=== PATIENT | female | born 1995 | race Caucasian/White ===

== ENCOUNTER 2023-06-28 11:50 | Emergency (ER) | payer OTHER, SELFPAY ==
[2023-06-28] VITALS (16 sets, daily range): BP systolic 103–145; BP diastolic 60–80; PULSE 99–128; RESP 12–31; TEMP 37.5; O2SAT 98–100; BMI 27.4
--- NOTE | 2023-06-28 12:37 | XR_ITS ---
The [address] [address] Patient Name: CASS VERDUZCO MRN: [id number] date: 1995 Sex: F Assigned Patient Location: ER Current Patient Location: ER Accession/Order Number: [id number] Exam Date: 06/28/2023 12:55 Report Date: 06/28/2023 13:38 At the request of: JOSH GARCIA Procedure: XR acute abdomen series EXAM: XR acute abdomen series HISTORY: chest and abd pain COMPARISON: None. TECHNIQUE: Acute abdominal series FINDINGS: Lungs without focal consolidation, pneumothorax, or pleural effusion. The cardiac size is normal. No free air, pneumobilia, portal venous gas. No dilated air-filled loop of small bowel. Several phleboliths at the pelvis. No abnormal calcification projects over the abdomen or pelvis. The osseous structures are unremarkable. XR/XR acute abdomen series IMPRESSION: 1. No acute pulmonary abnormality. 2. Nonobstructed bowel gas pattern. Electronically authenticated by: LAUREL ZIMMERMAN Date: 06/28/2023 13:38
--- NOTE | 2023-06-28 12:37 | ECG_ITS ---
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
--- NOTE | 2023-06-28 12:40 | ED.GENADUL1 ---
HPI - General Adult General Chief complaint: Abdominal Pain Stated complaint: CHEST PAIN AND STOMACH PAIN Time Seen by Provider: 06/28/23 12:36 Source: patient Mode of arrival: walk-in Limitations: no limitations History of Present Illness HPI narrative: Patient is a 27-year-old female who is presenting with ongoing complaints for the past month patient was at [facility] on May 31, had lab work and a CT exam done.. Patient was told that she had a slightly enlarged appendix, but there is no signs of appendicitis. Patient was discharged from the ER at that time. Patient does have a PCP. Patient states she has been having nausea, and afraid to eat in the past week or 2 secondary to eating causing midepigastric and right upper quadrant pain. Patient has no history of significant acid reflux or ulcers. Patient says that she has been prescribed Carafate in the past which has helped for similar symptoms that she is having today. Patient has no black stools, no emesis hematemesis. Patient also states she has been having right-sided chest pressure with radiation into the right neck and right arm this started yesterday. Patient also is having intermittent left lower lateral anterior rib pain intermittently since yesterday. Patient has not seen her PCP in the past month. Patient has never had a GI endoscopic. Patient has no traveling, she is on the implant for control. Non-smoker. 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 All systems reviewed and otherwise negative. Nurses note and vital signs reviewed and patient is not hypoxic. General: The patient appears well and in no apparent distress. Patient is resting comfortably on cart. Patient is not toxic, lethargic, or listless Skin: Warm, dry, no pallor noted. There is no rash noted. No petechiae, purpura. Patient has no rash to the anterior or lateral chest wall. Head: Normocephalic, atraumatic Eye: Normal conjunctiva, no drainage, EOMI. PERRL Ears, Nose, Mouth, and Throat: oral mucosa is moist. Nares patent. Mouth without vesicles. Cardiovascular: Regular Rate and Rhythm, no murmur, gallop, rub; no reproducible tenderness to palpation to the anterior, lateral, posterior chest wall. Respiratory: Patient is in no distress, no accessory muscle use, lungs are clear to auscultation, no wheezing, rales or rhonchi. Equal breath sounds bilateral. Back: non-tender, no CVA tenderness bilaterally to percussion. No CT LS midline pain GI: Mild tenderness to palpation to the midepigastric and right upper quadrant, mild periumbilical tenderness palpation; no peritoneal signs, no flank pain bilateral, no rash, no suprapubic tenderness palpation, otherwisetenderness to palpation, no masses appreciated. No rebound, guarding, or rigidity noted. No distention Musculoskeletal: Patient has full range of motion of all of the extremities, no motor, sensory, or focal neurological deficits Neurological: A&O x4, normal speech Psychiatric: Cooperative Related Data Home Medications Medication Instructions Recorded Confirmed baclofen 10 mg tablet 10 mg PO BID 06/28/23 06/28/23 ferrous sulfate 325 mg (65 mg 325 mg PO DAILY 06/28/23 06/28/23 iron) tablet (Feosol) Previous Rx's Medication Instructions Recorded dicyclomine 20 mg tablet 20 mg PO TID PRN abdominal pain #7 06/28/23 tabs ondansetron 4 mg disintegrating 4 mg PO Q4H PRN nausea and 06/28/23 tablet vomiting 3 days #6 tabs Allergies Allergy/AdvReac Type Severity Reaction Status Date / Time No Known Drug Allergies Allergy Verified 06/28/23 11:56 PFSH PFSH Social History Smoking status: Former smoker Exam Constitutional Vital Signs, click to edit/add: Last Vital Signs Temp 99.5 F 06/28/23 11:57 Pulse 106 H 06/28/23 14:51 Resp 13 06/28/23 14:51 BP 119/73 06/28/23 14:51 Pulse Ox 99 06/28/23 14:51 Course Vital Signs Vital signs: Vital Signs Pulse Oximetry 99 06/28/23 11:56 Temperature 99.5 F 06/28/23 11:57 Pulse Rate 106 H 06/28/23 14:51 Respiratory Rate 13 06/28/23 14:51 Blood Pressure 119/73 06/28/23 14:51 Pulse Oximetry 99 06/28/23 14:51 Medical Decision Making [facility] Narrative Medical decision making narrative: EKG, chest and abdominal x-ray show no acute findings. Lab work shows no acute findings, urine was within normal limits. Patient does feel better after 1 L of IV fluid. At discharge patient's heart rate was slightly elevated. Patient admits to being shaky and anxious at discharge and she normally has slightly elevated heart rate with situational anxiety. Patient states essentially anxiety as her being in the emergency room. Patient has no significant tremors or trembling. Patient was told to start taking acid medication daily. Patient was given Dr. Sosa name and number to follow up for outpatient EGD or colonoscopy if needed. No questions at discharge. Lab Data Lab results reviewed: Yes I reviewed the patient's lab results Labs: Lab Results 06/28/23 Range/Units 12:06 WBC 11.5 H (4.0-11.0) 10^3/uL RBC 4.66 (4.20-5.40) 10^6/uL Hgb 14.0 (12.0-16.0) g/dL Hct 42.4 (36.0-48.0) % MCV 91.0 (81.0-99.0) fL MCH 30.0 (26.7-34.0) pg MCHC 33.0 (29.9-35.2) g/dL RDW 12.2 (11.0-15.0) % Plt Count 431 (150-450) 10^3/uL MPV 9.6 (9.5-13.5) fL Neut % (Auto) 81.3 H (43.0-75.0) % Lymph % (Auto) 14.7 L (20.5-60.0) % [place] % (Auto) 3.0 (1.7-12.0) % Eos % (Auto) 0.1 L (0.9-7.0) % Baso % (Auto) 0.2 (0.2-2.0) % Neut # (Auto) 9.4 H (1.4-6.5) 10^3/uL Lymph # (Auto) 1.7 (1.2-3.8) 10^3/uL [place] # (Auto) 0.3 (0.3-0.8) 10^3/uL Eos # (Auto) 0.0 (0.0-0.7) 10^3/uL Baso # (Auto) 0.0 (0.0-0.1) 10^3/uL Abs Immat Gran (auto) 0.08 H (0.00-0.03) 10^3/uL Imm/Tot Granulo (auto) 0.7 H (0.0-0.5) % D-Dimer <0.19 (<=0.59) mg/L FEU Sodium 137 (136-145) mmol/L Potassium 3.7 (3.5-5.1) mmol/L Chloride 102 (98-107) mmol/L Carbon Dioxide 26.7 (21.0-32.0) mmol/L Anion Gap 12.0 BUN 10.0 (7.0-18.0) mg/dL Creatinine 0.80 (0.55-1.02) mg/dL Est GFR ( Amer) >60 (>=60) Est GFR (Non-Af Amer) >60 (>=60) BUN/Creatinine Ratio 12.5 Glucose 152 H (74-106) mg/dL Calcium 9.5 (8.5-10.1) mg/dL Total Bilirubin 0.8 (0.2-1.0) mg/dL AST 23 (15-37) U/L ALT 18 (14-59) U/L Alkaline Phosphatase 152 H (46-116) U/L Troponin I High Sens <4.0 L (4.0-51.3) pg/mL Total Protein 8.3 H (6.4-8.2) g/dL Albumin 4.1 (3.4-5.0) g/dL Globulin 4.2 g/dL Albumin/Globulin Ratio 1.0 Lipase 27.0 (16.0-77.0) U/L Urine Color Lt. yellow (YELLOW) Urine Clarity Clear (CLEAR) Urine pH 6.5 (5.0-9.0) Ur Specific [place] <=1.005 A (1.005-1.025) Urine Protein Negative (NEG/TRACE) mg/dL Urine Glucose (UA) Negative (NEGATIVE) mg/dL Urine Ketones 15 A (NEGATIVE) mg/dL Urine Occult Blood Trace-i (NEGATIVE) Urine Nitrite Negative (NEGATIVE) Urine Bilirubin Negative (NEGATIVE) Urine Urobilinogen 0.2 (0.2-1.0) EU/dL Ur Leukocyte Esterase Negative (NEGATIVE) Urine RBC 0-2 (0-2) #/HPF Urine WBC None seen (NONE SEEN) #/HPF Ur Squamous Epith Cells Few A (NONE/RARE) #/LPF Urine Crystals None seen (None Seen) #/HPF Urine Bacteria Trace A (NONE SEEN) #/HPF Urine Casts None seen (NONE SEEN) #/LPF Urine Mucus None seen (NONE SEEN) Imaging Data Chest x-ray: Radiologist's impression: ITS Impressions Chest/Abdomen X-ray 06/28/23 12:37 IMPRESSION: 1. No acute pulmonary abnormality. 2. Nonobstructed bowel gas pattern. Electronically authenticated by: LAUREL ZIMMERMAN Date: 06/28/2023 13:38 ECG Data Attestation: I personally reviewed and interpreted this ECG as follows: (EKG interpretation Sinus tachycardia at 115. Normal axis deviation. No acute ST elevation, no acute ectopy. QTc of 372.) Discharge Plan Discharge Chief Complaint: Abdominal Pain Clinical Impression: Chronic abdominal pain, Chest pain, Nausea Patient Disposition: Home, Self-Care Condition: Fair Prescriptions / Home Meds: New dicyclomine 20 mg tablet 20 mg PO TID PRN (Reason: abdominal pain) Qty: 7 0RF ondansetron 4 mg tablet,disintegrating 4 mg PO Q4H PRN (Reason: nausea and vomiting) 3 Days Qty: 6 0RF No Action baclofen 10 mg tablet 10 mg PO BID ferrous sulfate [Feosol] 325 mg (65 mg iron) tablet 325 mg PO DAILY Instructions: Chest Pain (ED), Acute Nausea and Vomiting (ED), Chronic Abdominal Pain (DC) Additional Instructions: Follow-up with your PCP, surgeon has been referred to you as well if you need upper EGD scope or colonoscopy as discussed at bedside. Start taking daily antacid medication. Use [id number]-ofz-otmtcup Maalox or Mylanta if needed for flareups. Nausea Zofran and belly cramping Bentyl medication has been prescribed as well. No acute finding on today's testing. Referrals: Physician,Non-Staff, MD [Primary Care Provider] - 1 week Discharge Date/Time: 06/28/23 15:20 Stand Alone Forms: Portal Instructions
[2023-06-28 12:46] LABS: Basophils Percent Auto 0.2 % (0.2-2.0); Eosinophils Percent Auto 0.1 % (0.9-7.0); Hematocrit 42.4 % (36.0-48.0); Immature Granulocytes Abs Auto 0.08 10^3/uL (0.00-0.03); Immature Granulocytes Pct Auto 0.7 % (0.0-0.5); Lymphocytes Absolute Auto 1.7 10^3/uL (1.2-3.8); Lymphocytes Percent Auto 14.7 % (20.5-60.0); Mean Platelet Volume 9.6 fL (9.5-13.5); Monocytes Absolute Auto 0.3 10^3/uL (0.3-0.8); Neutrophils Absolute Auto 9.4 10^3/uL (1.4-6.5); Neutrophils Percent Auto 81.3 % (43.0-75.0); Platelet Count 431 10^3/uL (150-450); Red Blood Count 4.66 10^6/uL (4.20-5.40); Red Cell Distribution Width 12.2 % (11.0-15.0); White Blood Count 11.5 10^3/uL (4.0-11.0)
[2023-06-28 12:57] LABS: Alanine Aminotransferase 18 U/L (14-59); Albumin Level 4.1 g/dL (3.4-5.0); Alkaline Phosphatase 152 U/L (46-116); Aspartate Amino Transferase 23 U/L (15-37); BUN Creatinine Ratio 12.5; Bilirubin Total 0.8 mg/dL (0.2-1.0); Calcium 9.5 mg/dL (8.5-10.1); Carbon Dioxide 26.7 mmol/L (21.0-32.0); Chloride 102 mmol/L (98-107); Estimated GFR (African America >60 (>=60); Estimated GFR (Non-African Ame >60 (>=60); Globulin 4.2 g/dL; Glucose 152 mg/dL (74-106); Potassium 3.7 mmol/L (3.5-5.1); Sodium 137 mmol/L (136-145); Total Protein 8.3 g/dL (6.4-8.2)
[2023-06-28 13:00] LABS: Troponin I High Sensitivity <4.0 pg/mL (4.0-51.3)
[2023-06-28] MEDS: KETOROLAC TROMETHAMINE 30 MG/ML VIAL 15 MG IVP (13:04)
[2023-06-28] MEDS: ONDANSETRON PF 4 MG/2 ML VIAL IV (13:04)
[2023-06-28 13:06] LABS: Bilirubin Urine NEGATIVE (NEGATIVE); Blood Urine TRACE-I (NEGATIVE); Clarity Urine CLEAR (CLEAR); Color Urine LT. YELLOW (YELLOW); Glucose Urine UA NEGATIVE (NEGATIVE); Ketones Urine 15 mg/dL (NEGATIVE); Leukocyte Esterase Urine NEGATIVE (NEGATIVE); Nitrite Urine NEGATIVE (NEGATIVE); Protein Urine NEGATIVE (NEG/TRACE); Specific Gravity Urine <=1.005 (1.005-1.025); Urobilinogen Urine 0.2 EU/dL (0.2-1.0); pH Urine 6.5 (5.0-9.0)
[2023-06-28] MEDS: 0.9 % SODIUM CHLORIDE 1,000 ML 1000 ML IV (13:06)
[2023-06-28 13:22] LABS: D Dimer <0.19 mg/L FEU (<=0.59)
[2023-06-28 13:24] LABS: Bacteria Urine TRACE #/HPF (NONE SEEN); Cast Seen? NONE SEEN #/LPF (NONE SEEN); Crystals Seen? None Seen #/HPF (None Seen); Mucus Urine NONE SEEN (NONE SEEN); RBC Urine 0-2 #/HPF (0-2); Squamous Epithelial Cell Urine FEW #/LPF (NONE/RARE); WBC Urine NONE SEEN #/HPF (NONE SEEN)
== END 2023-06-28 15:20 | disposition home or self-care (01) ==
PROVIDERS: Emergency Provider Emergency Medicine; Family Provider Family Medicine
DX: R07.9 Chest pain, unspecified (principal); R10.9 Unspecified abdominal pain; G89.29 Other chronic pain; R11.0 Nausea; Z79.899 Other long term (current) drug therapy; Z87.891 Personal history of nicotine dependence
CPT/HCPCS: 36415; 74022; 80053; 81001; 83690; 84484; 85025; 85378; 93005; 96374; 96375; 99285

== ENCOUNTER 2023-11-26 06:49 | Emergency (ER) | payer OTHER, SELFPAY ==
[2023-11-26 06:51] VITALS: BP 121/87; PULSE 98; TEMP 37.1; O2SAT 100; BMI 24.1
--- OUTSIDE RECORDS SUMMARY | 2023-11-26 06:57 | XMS_ITS | CCD ---
Author Organization [facility] Care Team Providers Care Research Nutritionist Name Role Phone Unavailable Primary Care Provider UnavailLorri Kennedy Primary Care Physician Gilbert Valverde DO Primary Care Provider [phone] Link Gilbert MARIA Primary Care Provider THAIGO CUELLAR Admitting Unavailable THIAGO CUELLAR Attending Unavailable GILBERT VALVERDE Primary Care Unavailable THIAGO CUELLAR Attending Unavailable GILBERT VALVERDE Primary Care Unavailable REGI HUNTER Attending Unavailable GILBERT VALVERDE Primary Care Unavailable REGI HUNTER Attending Unavailable GILBERT VALVERDE Primary Care Unavailable Nancy Rose Primary Care Physician TI Dean Emergency Provider Lorri Ireland Primary Care Provider NADIA Johnson Emergency Provider ANABELA SAEZ Attending Unavailable SIVAN KONG Attending Unavailable SIVAN KONG Referring Unavailable GAYLA DUNBAR Attending Unavailable MIGUEL ANGEL PENNINGTON Referring Unavailable LORRI IRELAND Primary Care Unavailable MIGUEL ANGEL ALEMAN Attending Unavailable Maggi, [facility]- Felisa Ayala Emergency Provider DO Vivian Ochoa Attending Unavailable Justo Arias Attending Unavailable Guille Will Attending Unavailable Justo Arias Attending Unavailable Mary Jane Palm H Attending Unavailable Draren Lomax Attending Unavailable Arpita, Astrraina H Attending Unavailable Isaac Stephen Admitting Unavailable Isaac Stephen Attending Unavailable LANETTE LUI Admitting Unavailable LANETTE LUI Attending Unavailable Estefani, Bruno S. Attending Unavailable Hugo, Justo Attending Unavailable LUI, LANETTE Attending Unavailable Hajdari, Astrit H Attending Unavailable Isaac Stephen. Attending Unavailable Geovany Ramirez Attending Unavailable Amos Castellon Attending Unavailable Spasilawrence, Rojelio V. Attending Unavailabl e LUI, LANETTE Attending Unavailable Amos Castellon Attending Unavailable Hugo, Justo Attending Unavailable Estefani, Bruno S. Attending Unavailable Nancy Rose C Attending Unavailable Nancy Rose Referring Unavailable NONE, XXXX Referring Unavailable Bon, Mohamed F. Admitting Unavailable Bon, Mohamed FVinh Attending Unavailable LinkGilbert C Admitting Unavailable Gilbert Valverde Attending Unavailable Hugo, Justo Attending Unavailable Darren Lomax Attending Unavailable Darren Lomax Attending Unavailable Suman, Guille Attending Unavailable Suman, Guille Attending Unavailable Spasic, Rojelio Avalos Attending UnavailAmos Guillen Attending Unavailable Darren Lomax Attending Unavailable Hayrisari, Astrit H Attending Unavailable Hugo, Justo Attending Unavailable Dokken, Kaylinn A Attending Unavailable DokkBettina jacobsylinn A Attending Unavailable Hugo, Justo Attending Unavailable DO Neptali Esquivel Emergency Provider [phone] Darren Lomax Attending Unavailable Suman, Guille Attending Unavailable Dokken, Kaylinn A Attending Unavailable Darren Lomax Attending Unavailable Darren Lomax Attending Unavailable Estefani, Bruno SVinh Attending Unavailable DokkDO Vivian jacobs A Attending Unavailable Darren Lomax Attending Unavailable Estefani, Bruno S. Attending Unavailable LUI, LANETTE Attending Unavailable Hugo, Justo Attending Unavailable Hajdari, Astrit H Attending Unavailable Darren Lomax Attending Unavailable Hugo, Justo Attending Unavailable Darren Lomax Attending Unavailable Hajdari, Astrit H Attending Unavailable Hugo, Justo Attending Unavailable NADIA Saez Emergency Provider Hugo, Justo Attending Unavailable Estefani, Bruno S. Attending Unavailable Suman Myles Attending Unavailable Caliepert, Anabela A Admitting Unavailable Ireland, Lorri L Primary Care Unavailable Jonathon Anabela A Attending Unavailable Ireland, Lorri L Primary Care Unavailable Keister Neptali A Attending Unavailable Kelópez Neptali A Admitting Unavailable Beka, Lorri L Primary Care Unavailable Felisa Tay Attending Unavailable Felisa Tay Admitting Unavailable Janeth Johnson Attending Unavailable Janeth Johnson Admitting Unavailable Ireland, Lorri L Primary Care Unavailable Satish Dean Attending Unavailable Satish Dean Admitting Unavailable Lorri Ireland Primary Care Unavailable MD Fatoumata Gooden Admitting Unavailable MD Fatoumata Gooden Attending Unavailable NONE, XXXX Referring Unavailable Ivana Bennett Admitting Unavailable Ivana Bennett Attending Unavailable Guille Will Attending Unavailable Justo Arias Attending Unavailable FLORENTIN MORENO Attending Unavailable Medications Current Medications Medication Drug Class(es) Dates Sig (Normalized) Sig (Original) acetaminophen 325 mg / HYDROcodone bitartrate 5 mg oral tablet (20 sources) Opioid Agonist Start: 09-04-2023 take 1 tablet by mouth every six hours Hydrocodone-Aceta minophen Active 1 TAB PO Every 6 hours 10 September 04, 2023 Start: 08-20-2023 End: 09-04-2023 take 1 tablet by mouth three times daily Hydrocodone-Acetaminophen Discontinued 1 TAB PO Three times daily 9 August 20, 2023 September 04, 2023 12:42pm Start: 07-07-2023 End: 07-10-2023 [place] 325 mg-5 mg oral table t 1 tab(s), Oral, q6hr for pain for 3 day(s), 12 tab(s), Refill(s) 0, [facility] #[id number], 160, cm, 07/07/23 11:13:00 EDT, Height/Length Dosing, 69.9, kg, 07/07/23 11:13:00 EDT, Weight Dosing Start Date: 07/07/23 Stop Date: 07/10/23 Status: Ordered Start: 06-29-2023 [place] 325 mg-5 mg oral tablet 1 tab(s), Oral, q4hr for pain, 5 tab(s), Refill(s) 0 Start Date: 06/29/23 Status: Ordered Start: 05-22-2023 [place] 325 mg-5 mg oral tablet 1 tab(s), Oral, q6hr as needed for pain, 10 tab(s), Refill(s) 0, [facility] #[id number], 160, cm, 05/22/23 6:23:00 EST, Height/Length Dosing, 64.2, kg, 05/22/23 6:23:00 EST, Weight Dosing Start Date: 05/22/23 Status: Ordered acetaminophen 325 mg / oxyCODONE hydrochloride 5 mg oral tablet (6 sources) Opioid Agonist Start: 04-11-2023 Percocet 5 mg- 325 mg oral tablet 1 tab(s), Oral, q6hr, 12 tab(s), Refill(s) 0 Start Date: 04/11/23 Status: Ordered Start: 03-30-2023 End: 04-02-2023 acetaminophen-oxycodone 325 mg-5 mg Tab 1 tab(s), Oral, q4hr for pain for 3 day(s), 12 tab(s), Refill(s) 0, [facility] #[id number], 157, cm, 03/30/23 15:42:00 EST, Height/Length Dosing, 57.6, kg, 03/30/23 15:42:00 EST, Weight Dosing Start Date: 03/30/23 Stop Date: 04/02/23 Status: Ordered Start: 03-24-2023 take 1 tablet by amber th every six hours for pain oxyCODONE-acetaminophen (Percocet) 5-325 mg tablet Indications: Acute post-operative pain Take 1 tablet by mouth every 6 hours if needed for severe pain (7 - 10). 15 tablet 0 03/24/2023 Active Start: 03-24-2023 End: 03-24-2023 take 1 tablet by mouth every four hours as needed oxyCODONE-acetaminophen (Percocet) 5-325 mg per tablet 1 tablet albuterol 0.83 mg/ml inhalation solution (3 sources) beta2-Adrenergic Agonist take 2.5 mg by inhalation every six hours as needed albuterol 2.5 mg /3 mL (0.083 %) nebulizer solution Take 3 mL (2.5 mg) by nebulization every 6 hours if needed. 0 Active Albuterol (Eqv-ProAir HFA) 90 mcg/inh inhalation aerosol (20 sources) Start: 023 take 1 puff(s) by inhalation every six hours Albuterol (Eqv-ProAir HFA) 90 mcg/inh inhalation aerosol puff(s), Inhalation, q6hr, Refill(s) 0 Start Date: 03/11/23 Status: Ordered amoxicillin 875 mg / clavulanate 125 mg oral tablet (1 source) Penicillin-class Antibacterial Start: End: Augmentin 875 mg-125 mg Tab 1 tab(s), Oral, q12hr for 10 day(s), 20 tab(s), Refill(s) 0, [facility] #[id number], 157, cm, 04/11/23 11:07:00 EST, Height/Length Dosing, 57.6, kg, 04/11/23 11:07:00 EST, Weight Dosing Start Date: 04/11/23 Stop Date: 04/21/23 Status: Ordered azithromycin 250 mg oral tablet (2 sources) Macrolide Antimicrobial Start: azithromycin 250 mg Tab 250 mg, Oral, As Directed, # 6 tab(s), Refills(s) 0, Pharmacy: [facility] #[id number], 160, cm, 07/19/23 9:32:00 EDT, Height/Length Dosing, 65.7, kg, 07/19/23 9:32:00 EDT, Weight Dosing Start Date: 07/19/23 Status: Ordered azithromycin 250 mg Tab 5-day Dose Pack (Z-Gabriel) (1 source) Start: End: azithromycin 250 mg Tab 5-day Dose Pack (Z-Gabriel) = 1 packet(s), Oral, As Directed, as directed on package labeling, X 5 day(s), # 6 tab(s), Refills(s) 0, Pharmacy: [facility] #[id number], 160, cm, 06/14/23 8:56:00 EST, Height/Length Dosing, 65, kg, 06/14/23 8:56:00 EST, Weight Dosing Start Date: 06/14/23 Stop Date: 06/19/23 Status: Ordered Baclofen (20 sources) gamma-Aminobutyric Acid-ergic Agonist Start: BACLOFEN 10 MG TABLET BACLOFEN 10 MG TABLET Start Date: 07/07/23 Status: Ordered Start: 05-11-2023 take 1 tablet by amber th twice daily baclofen 5 mg oral tablet 5 mg = 1 tab(s), Oral, BID, # 60 tab(s), Refills(s) 0, Pharmacy: [facility]/pharmacy #[id number], 162, cm, 05/11/23 11:33:00 EST, Height/Length Dosing, 61.9, kg, 05/11/23 11:33:00 EST, Weight Dosing Start Date: 05/11/23 Status: Ordered Start: 05-03-2023 End: 05-07-2023 take 1 tablet by mouth three times daily as needed for muscle spasms baclofen 10 mg Tab 10 mg = 1 tab(s), Oral, TID, PRN Spasm, X 4 day(s), # 12 tab(s), Refills(s) 0, Pharmacy: [facility] #[id number], 162, cm, 05/03/23 12:24:00 EST, Height/Length Dosing, 62.7, kg, 05/03/23 12:24:00 EST, Weight Dosing Start Date: 05/03/23 Stop Date: 05/07/23 Status: Ordered Start: 03-11-2023 End: 03-16-2023 take 1 tablet by mouth twice daily baclofen 5 mg oral tablet 5 mg = 1 tab(s), Oral, BID, X 5 day(s), # 10 tab(s), Refills(s) 0, Pharmacy: [facility] #[id number], 157, cm, 03/11/23 17:06:00 EST, Height/Length Dosing, 57.6, kg, 03/11/23 17:06:00 EST, Weight Dosing Start Date: 03/11/23 Stop Date: 03/16/23 Status: Ordered Start: 01-15-2023 End: 03-07-2023 take 1 tablet by mouth at bedtime baclofen 5 mg oral tablet 5 mg = 1 tab(s), Oral, Bedtime, # 12 tab(s), Refills(s) 0, Pharmacy: [facility] #[id number], 157, cm, 01/24/23 9:27:00 EDT, Height/Length Dosing, 59.6, kg, 01/24/23 9:27:00 EDT, Weight Dosing Start Date: 01/24/23 Status: Ordered busPIRone hydrochloride 15 mg oral tablet (7 sources) Start: 06-26-2022 take 1 tablet by mouth twice daily busPIRone 15 mg Tab take 1 tablet by mouth twice a day Start Date: 06/26/22 Status: Ordered calcium chloride 0.0014 meq/ml / potassium chloride 0.004 meq/ml / sodium chloride 0.103 meq/ml / sodium lactate 0.028 meq/ml injectable solution (2 sources) Start: 03-24-2023 lactated Ringe r's infusion Start: 07-19-2021 End: 07-20-2021 IntraVENous, at 125 mL/hr, C ONTINUOUS, Starting on Yadira 07/19/21 at 0130 cefdinir 300 mg oral capsule (10 sources) Cephalosporin Antibacterial Start: 05-28-2023 cefdinir 300 mg Cap Refills(s) 0 Start Date: 05/28/23 Status: Ordered cephalexin 500 mg oral capsule (3 sources) Cephalosporin Antibacterial Start: 03-24-2023 End: 03-31-2023 take 1 capsule by mouth three times daily cephalexin (Keflex) 500 mg capsule Indications: Nasal septal deviation Take 1 capsule (500 mg) by mouth 3 times a day for 7 days. 21 capsule 0 03/24/2023 03/31/2023 Active Start: 11-09-2022 End: 11-16-2022 take 1 capsule by mouth three times daily Keflex 500 mg Cap 500 mg = 1 cap(s), Oral, TID, X 7 day(s), # 21 cap(s), Refills(s) 0, Pharmacy: [facility] #[id number], 157, cm, 11/09/22 14:16:00 EDT, Height/Length Dosing, 62.9, kg, 11/09/22 14:16:00 EDT, Weight Dosing Start Date: 11/09/22 Stop Date: 11/16/22 Status: Ordered cyclobenzaprine hydrochloride 5 mg oral tablet (9 sources) Muscle Relaxant Start: 2023 End: 11-09-2023 take 1 tablet by mouth twice daily as needed for pain cyclobenzaprine 5 mg Tab 5 mg = 1 tab(s), Oral, BID, PRN Muscle pain, X 7 day(s), # 14 tab(s), Refills(s) 0, Pharmacy: [facility]/pharmacy #[id number], 160, cm, 11/02/23 14:02:00 EDT, Height/Length Dosing, 62, kg, 11/02/23 14:02:00 EDT, Weight Dosing Start Date: 11/02/23 Stop Date: 11/09/23 Status: Ordered Start: 06-26-2022 take 1 tablet by amber th once daily at bedtime cyclobenzaprine 5 mg Tab take 1 tablet by mouth once daily at bedtime if needed Start Date: 06/26/22 Status: Ordered diclofenac potassium 50 mg oral tablet (6 sources) Nonsteroidal Anti-inflammatory Drug Start: 06-26-2022 take 1 tablet by mouth twice daily diclofenac potassium 50 mg oral tablet take 1 tablet by mouth twice a day Start Date: 06/26/22 Status: Ordered dicyclomine hydrochloride 20 mg oral tablet (20 sources) Anticholinergic Start: 08-20-2023 take 20 mg by mouth once daily Dicyclomine Active 20 MG PO Daily August 20, 2023 12:00am Start: 08-10-2023 End: 08-17-2023 take 1 tablet by mouth three times daily dicyclomine 20 mg Tab 20 mg = 1 tab(s), Oral, TID, X 7 day(s), # 21 tab(s), Refills(s) 0, Pharmacy: [facility]/pharmacy #[id number], 160, cm, 08/10/23 11:41:00 EDT, Height/Length Dosing, 66, kg, 08/10/23 11:41:00 EDT, Weight Dosing Start Date: 08/10/23 Stop Date: 08/17/23 Status: Ordered Start: 07-26-2023 End: 09-24-2023 take 1 capsule by mouth four times daily as needed Bentyl 10 mg Cap 10 mg = 1 cap(s), Oral, QID, PRN Other (see comment), For abdominal cramping, # 12 cap(s), Refills(s) 0, Pharmacy: [facility]/pharmacy #[id number], 160, cm, 07/26/23 9:44:00 EDT, Height/Length Dosing, 61.7, kg, 07/26/23 9:44:00 EDT, Weight Dosing Start Date: 07/26/23 Status: Ordered Start: 05-31-2023 End: 06-07-2023 take 1 tablet by mouth three times daily dicyclomine 20 mg Tab 20 mg = 1 tab(s), Oral, TID, X 7 day(s), # 21 tab(s), Refills(s) 0, Pharmacy: [facility] #[id number], 160, cm, 05/31/23 8:12:00 EST, Height/Length Dosing, 67, kg, 05/31/23 8:12:00 EST, Weight Dosing Start Date: 05/31/23 Stop Date: 06/07/23 Status: Ordered doxycycline monohydrate 100 mg oral capsule (1 source) Tetracycline-class Drug Start: 05-03-2023 doxycycline monohydrate 100 mg oral capsule Refills(s) 0 Start Date: 05/03/23 Status: Ordered ferrous sulfate 325 mg oral tablet (10 sources) Start: 09-04-2023 take 1 tablet by mouth once daily Ferrous Sulfate (Feosol) 325 mg (65 mg iron) tablet Active 325 MG PO Daily September 04, 2023 12:00am Start: 07-19-2021 take 325 mg by mouth once daily 325 mg, Oral, DAILY, First dose on Yadira 07/19/21 at 0900, Until Discontinued Start: 05-28-2021 take 45 mg by mouth once daily ferrous sulfate 45 mg, Oral, Daily, Refills(s) 0 Start Date: 05/28/21 Status: Ordered Iron 100 Plus (20 sources) Start: 03-11-2023 Iron 100 Plus Oral, Daily, Refill(s) 0 Start Date: 03/11/23 Status: Ordered ketorolac tromethamine 10 mg oral tablet (3 sources) Nonsteroidal Anti-inflammatory Drug, Cyclooxygenase Inhibitor Start: 09-04-2023 take 10 mg by mouth three times daily Ketorolac Active 10 MG PO Three times daily September 04, 2023 12:00am LORazepam 1 mg oral tablet (8 sources) Benzodiazepine Start: 06-29-2023 take 1 tablet by mouth twice daily Ativan 1 mg Tab 1 mg = 1 tab(s), Oral, BID, # 2 tab(s), Refills(s) 0 Start Date: 06/29/23 Status: Ordered meloxicam 7.5 mg oral tablet (2 sources) Nonsteroidal Anti-inflammatory Drug Start: 05-11-2023 take 1 tablet by mouth once daily meloxicam 7.5 mg Tab 7.5 mg = 1 tab(s), Oral, Daily, # 30 tab(s), Refills(s) 1, Pharmacy: [facility]/pharmacy #[id number], 162, cm, 05/11/23 11:33:00 EST, Height/Length Dosing, 61.9, kg, 05/11/23 11:33:00 EST, Weight Dosing Start Date: 05/11/23 Status: Ordered methylPREDNISolone 4 mg oral tablet (1 source) Corticosteroid Start: 07-19-2023 End: 07-25-2023 Medrol 4 mg Tab = 1 packet(s), Oral, As Directed, as directed on package labeling, X 6 day(s), # 21 tab(s), Refills(s) 0, [id number], 160, cm, 07/19/23 9:32:00 EDT, Height/Length Dosing, 65.7, kg, 07/19/23 9:32:00 EDT, Weight Dosing Start Date: 07/19/23 Stop Date: 07/25/23 Status: Ordered multivitamin tablet (2 sources) take 1 tablet by mouth once daily multivitamin tablet Take 1 tablet by mouth once daily. 0 Active mupirocin 20 mg/ml topical cream (1 source) RNA Synthetase Inhibitor Antibacterial Start: 03-24-2023 End: 03-27-2023 mupirocin (Bactroban) 2 % cream Indications: Nasal septal deviation Apply topically 3 times a day for 3 days. Apply to nose three times a day 15 g 0 03/24/2023 03/27/2023 Active nitrofurantoin, macrocrystals 25 mg / nitrofurantoin, monohydrate 75 mg oral capsule (2 sources) Nitrofuran Antibacterial Start: 09-17-2023 End: 09-22-2023 take 1 capsule by mouth every twelve hours Macrobid 100 mg Cap 100 mg = 1 cap(s), Oral, q12hr, X 5 day(s), # 10 cap(s), Refills(s) 0, Pharmacy: [facility]/pharmacy #[id number], 160, cm, 09/17/23 4:33:00 EDT, Height/Length Dosing, 65.4, kg, 09/17/23 4:33:00 EDT, Weight Dosing Start Date: 09/17/23 Stop Date: 09/22/23 Status: Ordered omeprazole 40 mg delayed release oral capsule (6 sources) Proton Pump Inhibitor Start: 06-26-2022 take 1 capsule by mouth once daily at breakfast omeprazole 40 mg Cap-DR take 1 capsule by mouth once daily 30 MINUTES PRIOR TO BREAKFAST/OTHER MEDS Start Date: 06/26/22 Status: Ordered ondansetron 4 mg disintegrating oral tablet (9 sources) Serotonin-3 Receptor Antagonist Start: 09-20-2023 End: 09-23-2023 take 1 tablet by mouth every six hours ondansetron 4 mg Dis Tab 4 mg = 1 tab(s), Oral, q6hr, X 3 day(s), # 10 tab(s), Refills(s) 0, Pharmacy: [facility]/pharmacy #[id number], 160, cm, 09/20/23 12:38:00 EDT, Height/Length Dosing, 65.1, kg, 09/20/23 12:38:00 EDT, Weight Dosing Start Date: 09/20/23 Stop Date: 09/23/23 Status: Ordered Start: 03-24-2023 take 1 tablet by amber th every eight hours for nausea ondansetron (Zofran) 4 mg tablet Indications: Nasal septal deviation Take 1 tablet (4 mg) by mouth every 8 hours if needed for nausea or vomiting. 5 tablet 0 03/24/2023 Active Start: 06-26-2022 ondansetron 4 mg Dis Tab dissolve 1 tablet ON TONGUE three times a day if needed for nausea Start Date: 06/26/22 Status: Ordered ondansetron (ZOFRAN-ODT) disintegrating tablet 4 mg (1 source) Start: 07-19-2021 ondansetron (ZOFRAN-ODT) disintegrating tablet 4 mg One Daily Women's oral tablet (4 sources) Start: 03-11-2023 take 1 tablet by mouth once daily One Daily Women's oral tablet Oral, Daily, Refill(s) 0 Start Date: 03/11/23 Status: Ordered oxyCODONE hydrochloride 5 mg oral tablet (1 source) Opioid Agonist Start: 03-29-2023 End: 04-01-2023 oxyCODONE (Roxicodone) 5 mg immediate release tablet Indications: pain Take 1 tablet (5 mg) by mouth every 6 hours if needed for severe pain (7 - 10) for up to 3 days. Do not start before March 29, 2023. 12 tablet 0 03/29/2023 04/01/2023 Active oxymetazoline hydrochloride 0.5 mg/ml nasal spray (2 sources) Start: 03-24-2023 oxymetazoline (Afrin, oxymetazoline,) 0.05 % nasal spray Indications: Nasal septal deviation Administer 2 sprays into each nostril every 6 hours if needed (bleeding). Do not use for more than 3 days. 30 mL 0 03/24/2023 Active phenazopyridine hydrochloride 200 mg oral tablet (7 sources) Start: 09-26-2023 End: 10-03-2023 take 1 tablet by mouth three times daily Pyridium 200 mg Tab 200 mg = 1 tab(s), Oral, TID, X 7 day(s), # 21 tab(s), Refills(s) 0, Pharmacy: [facility]/pharmacy #[id number], 160, cm, 09/26/23 15:23:00 EDT, Height/Length Dosing, 65, kg, 09/26/23 15:23:00 EDT, Weight Dosing Start Date: 09/26/23 Stop Date: 10/03/23 Status: Ordered Start: 09-24-2023 End: 09-27-2023 take 1 tablet by mouth three times daily Pyridium 100 mg Tab 100 mg = 1 tab(s), Oral, TID, X 3 day(s), # 9 tab(s), Refills(s) 0, Pharmacy: [facility]/pharmacy #[id number], 160, cm, 09/24/23 15:37:00 EDT, Height/Length Dosing, 65, kg, 09/24/23 15:37:00 EDT, Weight Dosing Start Date: 09/24/23 Stop Date: 09/27/23 Status: Ordered Start: 09-17-2023 End: 09-20-2023 take 1 tablet by mouth three times daily Pyridium 200 mg Tab 200 mg = 1 tab(s), Oral, TID, X 3 day(s), # 9 tab(s), Refills(s) 0, Pharmacy: [facility]/pharmacy #[id number], 160, cm, 09/17/23 4:33:00 EDT, Height/Length Dosing, 65.4, kg, 09/17/23 4:33:00 EDT, Weight Dosing Start Date: 09/17/23 Stop Date: 09/20/23 Status: Ordered Start: 11-09-2022 End: 11-11-2022 take 1 tablet by mouth three times daily Pyridium 200 mg Tab 200 mg = 1 tab(s), Oral, TID, X 2 day(s), # 6 tab(s), Refills(s) 0, Pharmacy: [facility] #[id number], 157, cm, 11/09/22 14:16:00 EDT, Height/Length Dosing, 62.9, kg, 11/09/22 14:16:00 EDT, Weight Dosing Start Date: 11/09/22 Stop Date: 11/11/22 Status: Ordered polyethylene glycol 3350 16320 mg powder for oral solution (1 source) Osmotic Laxative Start: 03-24-2023 End: 03-29-2023 polyethylene glycol (Glycolax, Miralax) 17 gram packet Indications: Nasal septal deviation Take 17 g by mouth once daily for 5 doses. 5 packet 0 03/24/2023 03/29/2023 Active predniSONE 50 mg oral tablet (5 sources) Start: 10-31-2023 End: 11-05-2023 take 1 tablet by mouth once daily predniSONE 50 mg Tab 50 mg = 1 tab(s), Oral, Daily, X 5 day(s), # 5 tab(s), Refills(s) 0, Pharmacy: [facility]/pharmacy #[id number], 160, cm, 10/31/23 12:45:00 EDT, Height/Length Dosing, 63.2, kg, 10/31/23 12:45:00 EDT, Weight Dosing Start Date: 10/31/23 Stop Date: 11/05/23 Status: Ordered Start: 06-26-2022 End: 07-03-2022 take 3 tablets by mouth once daily predniSONE 20 mg Tab 60 mg = 3 tab(s), Oral, Daily, X 7 day(s), # 21 tab(s), Refills(s) 0, Pharmacy: [facility] #[id number], 157, cm, 06/26/22 14:20:00 EST, Height/Length Dosing, 70.4, kg, 06/26/22 14:26:00 EST, Weight Dosing Start Date: 06/26/22 Stop Date: 07/03/22 Status: Ordered Multivitamins (2 sources) Start: 05-28-2021 take 1 tablet by mouth once daily Multivitamins 1 tab(s), Oral, Daily, Refill(s) 0 Start Date: 05/28/21 Status: Ordered Vit-Fe Fumarate-FA ( 1+1 PO) (1 source) take 1 tablet by mouth once daily Vit-Fe Fumarate-FA ( 1+1 PO) Take 1 tablet by mouth daily 0 Active ropivacaine 0.2% in sodium chloride 0.9% 200mL (OB) epidural (1 source) Start: 07-19-2021 ropivacaine 0. 2% in sodium chloride 0.9% 200mL (OB) epidural sodium chloride 0.111 meq/ml nasal spray (5 sources) Start: 03-24-2023 sodium chlorid e ([place] Nasal) 0.65 % nasal spray Indications: Nasal septal deviation Administer 1 spray into each nostril every 4 hours. 30 mL 2 03/24/2023 Active Start: 07-19-2021 10 mL, IntraVE Nous, EVERY 12 HOURS SCHEDULED (2 times per day), First dose on Yadira 07/19/21 at 0900, Until Discontinued Start: 07-19-2021 take 25 mL intraveno usly every hour as needed 25 mL, IntraVENous, at 100 mL/hr, PRN, If patient receiving piggyback infusions without ordered maintenance IV fluids or with frequent/long duration piggyback infusions, Starting on Yadira 07/19/21 at 0107 Administer at the same rate as the piggyback being infused. Start: 07-19-2021 take 10 mL intraveno usly once as needed 10 mL, IntraVENous, PRN, Starting on Yadira 07/19/21 at 0107, Until Discontinued, Line Care, After every IV line use traMADol hydrochloride 50 mg oral tablet (20 sources) Opioid Agonist Start: 11-24-2023 End: 11-27-2023 take 1 tablet by mouth every eight hours Ultram 50 mg Tab 50 mg = 1 tab(s), Oral, q8hr, X 3 day(s), # 9 tab(s), Refills(s) 0, Pharmacy: [facility]/pharmacy #[id number], 160, cm, 11/24/23 11:59:00 EDT, Height/Length Dosing, 62, kg, 11/24/23 11:59:00 EDT, Weight Dosing Start Date: 11/24/23 Stop Date: 11/27/23 Status: Ordered Start: 10-02-2023 End: 10-28-2023 take 1 tablet by mouth every six hours as needed for pain traMADOL 50 mg Tab 50 mg = 1 tab(s), Oral, q6hr, PRN as needed for pain, # 7 tab(s), Refills(s) 0, [id number], 160, cm, 10/02/23 6:32:00 EDT, Height/Length Dosing, 67.7, kg, 10/02/23 6:32:00 EDT, Weight Dosing Start Date: 10/02/23 Status: Ordered Start: 09-24-2023 End: 09-27-2023 take 1 tablet by mouth every six hours as needed for pain traMADOL 50 mg Tab 50 mg = 1 tab(s), Oral, q6hr, PRN for pain, X 3 day(s), # 12 tab(s), Refills(s) 0, [id number], 160, cm, 09/24/23 15:37:00 EDT, Height/Length Dosing, 65, kg, 09/24/23 15:37:00 EDT, Weight Dosing Start Date: 09/24/23 Stop Date: 09/27/23 Status: Ordered Start: 09-20-2023 End: 09-23-2023 take 1 tablet by mouth every six hours Ultram 50 mg Tab 50 mg = 1 tab(s), Oral, q6hr, X 3 day(s), # 12 tab(s), Refills(s) 0, [id number], 160, cm, 09/20/23 12:38:00 EDT, Height/Length Dosing, 65.1, kg, 09/20/23 12:38:00 EDT, Weight Dosing Start Date: 09/20/23 Stop Date: 09/23/23 Status: Ordered Start: 09-14-2023 End: 09-19-2023 take 1 tablet by mouth every six hours as needed for pain traMADOL 50 mg Tab 50 mg = 1 tab(s), Oral, q6hr, PRN for pain, X 2 day(s), # 7 tab(s), Refills(s) 0, Pharmacy: [facility]/pharmacy #[id number], 160, cm, 09/17/23 4:33:00 EDT, Height/Length Dosing, 65.4, kg, 09/17/23 4:33:00 EDT, Weight Dosing Start Date: 09/17/23 Stop Date: 09/19/23 Status: Ordered Start: 08-05-2023 End: 08-20-2023 take 1 tablet by mouth every eight hours as needed for pain traMADOL 50 mg Tab 50 mg = 1 tab(s), Oral, q8hr, PRN as needed for pain, # 7 tab(s), Refills(s) 0, Pharmacy: [facility]/pharmacy #[id number], 160, cm, 08/14/23 14:48:00 EDT, Height/Length Dosing, 64, kg, 08/14/23 14:48:00 EDT, Weight Dosing Start Date: 08/14/23 Status: Ordered Start: 08-05-2023 End: 08-20-2023 Tramadol Discontinued 50 MG PO every 6 to 8 hours 12 August 05, 2023 12:00am August 20, 2023 12:55pm Start: 08-05-2023 End: 08-21-2023 take 1 tablet by mouth every four hours Ultram 50 mg Tab 50 mg, Oral, q4hr, Take one by mouth every four hours, X 3 day(s), # 10 tab(s), Refills(s) 0, [id number], 160, cm, 08/18/23 10:31:00 EDT, Height/Length Dosing, 64, kg, 08/18/23 10:31:00 EDT, Weight Dosing Start Date: 08/18/23 Stop Date: 08/21/23 Status: Ordered Start: 07-26-2023 End: 07-29-2023 take 1 tablet by mouth every twelve hours as needed for pain traMADOL 50 mg Tab 50 mg = 1 tab(s), Oral, q12hr, PRN for pain, X 3 day(s), # 6 tab(s), Refills(s) 0, Pharmacy: [facility]/pharmacy #[id number], 160, cm, 07/26/23 9:44:00 EDT, Height/Length Dosing, 61.7, kg, 07/26/23 9:44:00 EDT, Weight Dosing Start Date: 07/26/23 Stop Date: 07/29/23 Status: Ordered Start: 07-19-2023 End: 07-22-2023 take 1 tablet by mouth every six hours as needed for pain traMADOL 50 mg Tab 50 mg = 1 tab(s), Oral, q6hr, PRN for pain, X 3 day(s), # 12 tab(s), Refills(s) 0, [id number], 160, cm, 07/19/23 9:32:00 EDT, Height/Length Dosing, 65.7, kg, 07/19/23 9:32:00 EDT, Weight Dosing Start Date: 07/19/23 Stop Date: 07/22/23 Status: Ordered Zofran ODT 4 mg Tab-Dis (20 sources) Start: 10-19-2023 take 1 tablet by mouth every eight hours as needed for nausea Zofran ODT 4 mg Tab-Dis 4 mg = 1 tab(s), Oral, q8hr, PRN Nausea/Vomiting, # 20 tab(s), Refills(s) 0, Pharmacy: [facility]/pharmacy #[id number], 160, cm, 10/19/23 12:58:00 EDT, Height/Length Dosing, 65, kg, 10/19/23 12:58:00 EDT, Weight Dosing Start Date: 10/19/23 Status: Ordered Start: 07-26-2023 take 1 tablet by amber th every eight hours as needed for nausea Zofran ODT 4 mg Tab-Dis 4 mg = 1 tab(s), Oral, q8hr, PRN Nausea/Vomiting, # 16 tab(s), Refills(s) 0, Pharmacy: [facility]/pharmacy #[id number], 160, cm, 07/26/23 9:44:00 EDT, Height/Length Dosing, 61.7, kg, 07/26/23 9:44:00 EDT, Weight Dosing Start Date: 07/26/23 Status: Ordered Start: 05-31-2023 take 1 tablet by amber th three times daily Zofran ODT 4 mg Tab-Dis 4 mg = 1 tab(s), Oral, TID, # 15 tab(s), Refills(s) 0, Pharmacy: [facility] #[id number], 160, cm, 05/31/23 8:12:00 EST, Height/Length Dosing, 67, kg, 05/31/23 8:12:00 EST, Weight Dosing Start Date: 05/31/23 Status: Ordered Completed/Discontinued Medications Medication Drug Class(es) Dates Sig (Normalized) Sig (Original) acetaminophen 500 mg oral tablet (2 sources) Start: 07-19-2021 End: 07-19-2021 acetaminophen (TYLENOL) tablet 1,000 mg Start: 07-19-2021 acetaminophen (TYLENOL) tablet 650 mg aprepitant 40 mg oral capsule (1 source) Substance P/Neurokinin-1 Receptor Antagonist Start: 03-24-2023 End: 03-24-2023 aprepitant (Emend) capsule 40 mg betamethasone 3 mg/ml / betamethasone acetate 3 mg/ml injectable suspension (1 source) Corticosteroid Start: 07-19-2021 End: 07-19-2021 inject 1 dose by intramuscular injection once 12 mg, IntraMUSCular, ONCE, 1 dose, On Fri07/19/21 at 1100 Start: 07-19-2021 End: 07-19-2021 inject 1 dose by intramuscular injection once 12 mg, IntraMUSCular, ONCE, 1 dose, On Fri07/19/21 at 1100 docusate sodium 100 mg oral capsule (1 source) Start: 07-19-2021 take 100 mg by mouth twice daily as needed 100 mg, Oral, 2 TIMES DAILY PRN, Starting on Fri07/19/21 at 0107, Until Discontinued, Constipation Do not crush or break. 1 ml fentaNYL 0.05 mg/ml injection (1 source) Opioid Agonist Start: 03-24-2023 End: 03-24-2023 fentaNYL PF (Sublimaze) injection 50 mcg ketoconazole 20 mg/ml topical cream (2 sources) Azole Antifungal Start: 04-11-2022 End: 03-07-2023 ketoconazole (NIZOral) 2 % cream Apply topically once daily. 0 04/11/2022 03/07/2023 Discontinued (Therapy completed) metroNIDAZOLE 500 mg oral tablet (4 sources) Nitroimidazole Antimicrobial Start: 08-20-2023 End: 09-04-2023 take 500 mg by mouth once daily Metronidazole Discontinued 500 MG PO Daily August 20, 2023 12:00am September 04, 2023 12:42pm naproxen 500 mg oral tablet (20 sources) Nonsteroidal Anti-inflammatory Drug Start: 11-24-2023 take 1 tablet by mouth twice daily naproxen 500 mg Tab 500 mg = 1 tab(s), Oral, BID, Take one tab by mouth two times a day, # 14 tab(s), Refills(s) 0, Pharmacy: [facility]/pharmacy #[id number], 160, cm, 11/24/23 11:59:00 EDT, Height/Length Dosing, 62, kg, 11/24/23 11:59:00 EDT, Weight Dosing Start Date: 11/24/23 Status: Ordered Start: 06-14-2023 End: 09-04-2023 take 1 tablet by mouth twice daily Naprosyn 500 mg Tab 500 mg = 1 tab(s), Oral, BID, # 20 tab(s), Refills(s) 0, Pharmacy: [facility] #[id number], 160, cm, 06/14/23 8:56:00 EST, Height/Length Dosing, 65, kg, 06/14/23 8:56:00 EST, Weight Dosing Start Date: 06/14/23 Status: Ordered Start: 05-28-2023 naproxen 375 m g Tab Refills(s) 0 Start Date: 05/28/23 Status: Ordered Start: 04-11-2023 take 1 tablet by amber th every twelve hours naproxen 375 mg Tab 375 mg = 1 tab(s), Oral, q12hr, # 14 tab(s), Refills(s) 0, Pharmacy: [facility] #[id number], 157, cm, 04/11/23 11:07:00 EST, Height/Length Dosing, 57.6, kg, 04/11/23 11:07:00 EST, Weight Dosing Start Date: 04/11/23 Status: Ordered NIFEdipine 10 mg oral capsule (1 source) Dihydropyridine Calcium Channel Justine Start: 07-19-2021 End: 07-19-2021 10 mg, Oral, EVERY 6 HOURS SCHEDULED (4 times per day), 4 doses, First dose on Fri07/19/21 at 0130, Last dose on Yadira 07/19/21 at 2200 penicillin G potassium in d5w IVPB 2.5 Million Units (1 source) Start: 07-19-2021 End: 07-20-2021 penicillin G potassium in d5w IVPB 2.5 Million Units vitamin 27-1 MG tablet 1 tablet (1 source) Start: 07-19-2021 take 1 tablet by mouth once daily 1 tablet, Oral, DAILY, First dose on Fri07/19/21 at 0900, Until Discontinued sertraline 100 mg oral tablet (7 sources) Serotonin Reuptake Inhibitor Start: 06-26-2022 take 1 tablet by mouth once daily sertraline 100 mg Tab 100 mg = 1 tab(s), take 1 tablet by mouth once daily Start Date: 06/26/22 Status: Ordered Problems Active Problems Problem Classification Problem Date Documented Da te Episodic/Chronic Abdominal pain (20 sources) Right lower quadrant pain; Translations: [Right lower quadrant pain] Onset: 09-14-2021 Episodic Asthma (20 sources) Asthma; Translations: [Mild asthma] Onset: 03-24-2023 01-13-2013 Chronic Gaitan (2 sources) Partial thickness burn of palmar area of right hand; Translations: [Burn of second degree of right palm, initial encounter] Onset: 09-14-2021 Episodic Cardiac dysrhythmias (1 source) Tachyarrhythmia ; Translations: [Tachycardia, unspecified] Onset: 07-12-2023 Episodic Chronic obstructive pulmonary disease and bronchiectasis (1 source) Bronchitis; Translations: [Bronchitis, not specified as acute or chronic] Onset: 07-19-2023 Episodic Disorders of teeth and jaw (20 sources) Dental caries 07-09-2013 Episodic Early or threatened labor (20 sources) Threatened premature labor - not delivered ; Translations: [False labor before 37 completed weeks of gestation, unspecified trimester] Onset: 07-19-2021 Episodic Fluid and electrolyte disorders (1 source) Hypokalemia; Translations: [Hypokalemia] Onset: 07-12-2023 Episodic Genitourinary symptoms and ill-defined conditions (20 sources) Genitourinary symptoms; Translations: [Unspecified symptoms and signs involving the genitourinary system] Onset: 11-09-2022 Episodic Heart valve disorders (20 sources) Heart murmur 07-09-2013 Episodic Nausea and vomiting (3 sources) Nausea and vomiting; Translations: [Nausea with vomiting, unspecified] Onset: 05-31-2023 Episodic Nonspecific chest pain (3 sources) Chest pain; Translations: [Chest pain, unspecified] Onset: 06-29-2023 Episodic Other acquired deformities (5 sources) Incompetence of nasal valve; 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] Onset: 02-06-2023 02-06-2023 Episodic Other acquired deformities (5 sources) Acquired deformity of nose; 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] Onset: 02-27-2023 02-27-2023 Episodic Other acquired deformities (2 sources) Acquired deformity of nose; 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] Onset: 02-27-2023 Episodic Other female genital disorders (20 sources) Vaginal discharge 09-22-2015 Episodic Other female genital disorders (20 sources) Pelvic congestion syndrome; Translations: [Other specified conditions associated with female genital organs and menstrual cycle] 08-05-2023 Episodic Other female genital disorders (4 sources) Disorder of female genital organs; Translations: [Other specified conditions associated with female genital organs and menstrual cycle] Onset: 09-14-2023 Episodic Other female genital disorders (1 source) Other specified conditions associated with female genital organs and menstrual cycle; Translations: [Other specified conditions associated with female genital organs and menstrual cycle] Onset: 2023 Episodic Other gastrointestinal disorders (1 source) Diarrhea; Translations: [Diarrhea, unspecified] Onset: 05-31-2023 Episodic Other lower respiratory disease (5 sources) Difficulty breathing; Translations: [Other abnormalities of breathing] Onset: 02-06-2023 02-06-2023 Episodic Other lower respiratory disease (4 sources) Other abnormalities of breathing; Translations: [Other abnormalities of breathing] Onset: 02-06-2023 Episodic Other nervous system disorders (11 sources) Chronic pain; Translations: [Other chronic pain] Onset: 08-10-2023 Chronic Other nervous system disorders (1 source) Other chronic pain; Translations: [Other chronic pain] Onset: 08-28-2023 Chronic Other nervous system disorders (2 sources) Chronic pain syndrome; Translations: [Chronic pain syndrome] Onset: 10-21-2023 Chronic Other nervous system disorders (2 sources) Anesthesia of skin; Translations: [Anesthesia of skin] Onset: 06-26-2022 Episodic Other nervous system disorders (2 sources) Paresthesia; Translations: [Paresthesia of skin] Onset: 06-26-2022 Episodic Other nervous system disorders (20 sources) Paresthesia of lower extremity 06-26-2022 Episodic Other nervous system disorders (1 source) Acute postoperative pain; Translations: [Other acute postprocedural pain] 03-24-2023 Episodic Other nervous system disorders (1 source) Postoperative pain ; Translations: [Other acute postprocedural pain] Onset: 03-30-2023 Episodic Other nervous system disorders (2 sources) Other acute postprocedural pain; Translations: [Other acute postprocedural pain] Onset: 03-24-2023 Episodic Other non-traumatic joint disorders (20 sources) Pain in wrist 05-23-2012 Episodic Other nutritional; endocrine; and metabolic disorders (20 sources) Overweight in adulthood with body mass index of 25 or more but less than 30; Translations: [Body mass index (BMI) 27.0-27.9, adult] Onset: 07-07-2023 Episodic Other upper respiratory disease (10 sources) Deviated nasal septum; Translations: [Deviated nasal septum] Onset: 02-06-2023 02-06-2023 Episodic Other upper respiratory disease (8 sources) Hypertrophy of nasal turbinates; Translations: [Hypertrophy of nasal turbinates] Onset: 02-06-2023 02-06-2023 Episodic Other upper respiratory disease (6 sources) Nasal congestion; Translations: [Nasal congestion] Onset: 02-27-2023 02-06-2023 Episodic Other upper respiratory disease (4 sources) Deviated nasal septum; Translations: [Deviated nasal septum] Onset: 03-24-2023 Episodic Other upper respiratory disease (1 source) Bleeding from nose; Translations: [Epistaxis] Onset: 04-15-2023 Episodic Other upper respiratory disease (2 sources) Epistaxis; Translations: [Epistaxis] Onset: 05-01-2023 Episodic Other upper respiratory disease (1 source) Nasal congestion; Translations: [Nasal congestion] Onset: 02-27-2023 Episodic Other upper respiratory disease (2 sources) Hypertrophy of nasal turbinates; Translations: [Hypertrophy of nasal turbinates] Onset: 02-06-2023 Episodic Other upper respiratory infections (1 source) Acute pharyngitis; Translations: [Acute pharyngitis, unspecified] Onset: 06-14-2023 Episodic Spondylosis; intervertebral disc disorders; other back problems (20 sources) Low back pain; Translations: [Low back pain, unspecified] Onset: 06-26-2022 Episodic Sprains and strains (1 source) Lower back injury; Translations: [Strain of muscle, fascia and tendon of lower back, initial encounter] Onset: 03-11-2023 Episodic Substance-related disorders (20 sources) Smoker; Translations: [Nicotine dependence] Onset: 07-07-2023 08-15-2014 Chronic Comment on above: Added secondary to d ocumentation in Social History. Superficial injury; contusion (1 source) Injury of eye region; Translations: [Injury of conjunctiva and corneal abrasion without foreign body, unspecified eye, initial encounter] Onset: 07-03-2022 Episodic Unclassified (20 sources) History of SARS-CoV-2 06-05-2021 Unclassified (2 sources) Magnesium sulfate during /labor( Confirmed ) 07-23-2021 Unclassified (20 sources) Magnesium sulfate during /labor 07-23-2021 Urinary tract infections (1 source) Urinary tract infectious disease; Translations: [Urinary tract infection, site not specified] Onset: 09-17-2023 Episodic Past or Other Problems Problem Classification Problem Date Documented Da te Episodic/Chronic Unclassified (20 sources) Onset: 12-26-2007 Resolved: 08-03-2021 08-12-2016 Unclassified (3 sources) Onset: 02-06-2023 Resolved: 03-31-2023 02-06-2023 Results Test Name Value Interpretation Reference Range Facility ED Clinical Summaryon 2023 ED Clinical Summary ED Clinical Summary [place] [id number] ED Clinical Summary Person Information Name: REALALEJANDRA/[facility] Age: 28 Years : 1995 Sex: Female Language: Uruguayan PCP: Lorri Ireland CNP Marital Status: Single Phone: [phone] Visit Id: Visit Reason: Nausea; Chronic pain; Pelvic pain; pain - abd left side, nausea Speciality: Acuity: 4 Enc Type: Emergency Med Service: Emergency Arrival: 11/24/2023 11:46:11 Discharge: 11/24/2023 13:13:53 LOS: 000 01:27 Checkin: 11/24/2023 11:46:11 Checkout: 11/24/2023 13:13:53 Dispo Type: Home (Routine DC) EVENTS: Event Name Event Status Request Date/Time Start Date/Time Complete Date/Time Arrive Complete 11/24/2023 11:46:11 11/24/2023 11:46:11 11/24/2023 11:46:11 Document Home Meds Request 11/24/2023 11:46:11 Triage Complete 11/24/2023 11:46:11 11/24/2023 11:59:15 11/24/2023 11:59:15 Registration Complete 11/24/2023 11:48:55 11/24/2023 11:48:55 11/24/2023 11:48:55 Reg Complete Request 11/24/2023 11:48:55 Reg Bed Request Complete 11/24/2023 11:48:55 11/24/2023 11:48:55 11/24/2023 11:48:55 Bed Assign Complete 11/24/2023 11:53:56 11/24/2023 11:53:56 11/24/2023 11:53:56 Dr Exam Complete 11/24/2023 11:53:56 11/24/2023 11:55:07 11/24/2023 11:55:07 RN Exam Complete 11/24/2023 11:53:56 11/24/2023 12:01:55 11/24/2023 12:01:55 Registration Request 11/24/2023 11:55:07 Dr Exam Complete 11/24/2023 11:59:31 11/24/2023 11:59:31 11/24/2023 11:59:31 Discharge Complete 11/24/2023 12:56:23 11/24/2023 13:14:00 11/24/2023 13:14:00 Transfer Complete 11/24/2023 13:14:00 11/24/2023 13:14:00 11/24/2023 13:14:00 ADDRESS: [address] [facility] [id number] PHYS DOC NOTES: MEDICAL INFORMATION: Prescriptions Given: New Medications [id number], [address] [place], [place] [id number], [phone] naproxen (naproxen 500 mg Tab) 1 Tablets By Mouth 2 times a day. Take one tab by mouth two times a day. Refills: 0. tramadol (Ultram 50 mg Tab) 1 Tablets By Mouth every 8 hours for 3 Days. Refills: 0. Medications to Continue with No Changes Other Medications dicyclomine (Bentyl 10 mg Cap) 1 Capsules By Mouth 4 times a day as needed Other (see comment). For abdominal cramping. Refills: 0. Misc Prescription (BACLOFEN 10 MG TABLET) 0. multivitamin with iron (Iron 100 Plus) By Mouth every day. ondansetron (Zofran ODT 4 mg Tab-Dis) 1 Tablets By Mouth every 8 hours as needed Nausea/Vomiting. Refills: 0. PATIENT EDUCATION INFORMATION: Instructions: Chronic Pain, Adult Follow up: With: Address: When: Lorri Ireland [address] [place] [address], [address] [place] [address] Business (1) In 3 days DIAGNOSIS: Chronic pelvic pain in female; Other chronic pain Normal [facility] ED Note-Physicianon 11-24-19 ED Note-Physician ED Note-Physician Basic Information Time Seen: Justo Arias DO 11/24/2023 11:59 Chief Complaint Pt was at Dr. Gooden's office for surgery consult. Was sent per Dr. Gooden d/t L sided pelvic/abdominal pain. History of Present Illness Patient is a 28 year old female who who was recently diagnosed with pelvic congestion syndrome presents to the ED today after regarding left-sided abdominopelvic pain. She states that she was seen in Dr. Gooden's office today regarding a surgery consult for her pelvic congestion syndrome. Patient states that she normally gets relief with her Toradol tablets but has been unsuccessful today; therefore, Dr. Gooden advised she come to the ED. She states that her pain is localized to her left side without radiation. She states that she has associated nausea but denies vomiting, diarrhea, or any change in bowel habits. She denies any fevers, chills, body aches, chest pain, or shortness of breath at today's visit. Patient states that she has a follow up visit in the coming weeks with pain management. She states this pain is the same as the previous pain she has experienced but more severe. She states her pain is a 7/10 and she has no other concerns at this time. No other aggravating or relieving factors no other associated symptoms no other prior treatments or complaints. Family: Reviewed and noncontributory Social: lives at home Review of systems negative unless otherwise specified in the HPI. Physical Exam Vitals & Measurements T: 37 ?C(Oral) HR: 91(Peripheral) RR: 16 BP: 137/85 SpO2: 100% HT: 160 cm WT: 62 kg BMI: 24.22 General: alert, no acute distress Skin: warm, dry Head: no trauma, normocephalic Neck: Trachea midline, no adenopathy, no tenderness, thyroid not enlarged Eye: normal conjunctiva, sclera clear ENMT: oral mucosa moist, yes Cardiovascular: regular rate and rhythm, normal Respiratory: respirations non labored Chest wall: no deformity. Gastrointestinal: soft, non distended, LLQ tenderness. No rebound tenderness or guarding is appreciated. Back: No tenderness Extremities: no edema, no wound Neurological: awake, alert, oriented, speech normal Psychiatric: cooperative, affect appropriate for age Medical Decision Making I did talk to the patient about getting additional workup here. She does believe this is simply a flareup of her chronic condition. She is scheduled to see the pain management on she just saw vascular today she also has an appointment to see her [facility] physician. Therefore she will be prescribed the tramadol and given a note for work and given naproxen as well follow-up in the outpatient setting. I, Dr. Arias had a [id number] interaction with the patient. I personally performed a physical exam and medical decision making. I have verified the documentation by the student as accurately representing the information obtained. Assessment/Plan Chronic pelvic pain in female (R10.2: Pelvic and perineal pain) Other chronic pain (G89.29: Other chronic pain) Ordered: tramadol, 50 mg = 1 tab(s), Oral, q8hr, X 3 day(s), # 9 tab(s), Refills(s) 0, Pharmacy: [facility]acy #[id number], 160, cm, 11/24/23 11:59:00 EDT, Height/Length Dosing, 62, kg, 11/24/23 11:59:00 EDT, Weight Dosing Orders: naproxen, 500 mg = 1 tab(s), Oral, BID, Take one tab by mouth two times a day, # 14 tab(s), Refills(s) 0, Pharmacy: [facility]/pharmacy #[id number], 160, cm, 11/24/23 11:59:00 EDT, Height/Length Dosing, 62, kg, 11/24/23 11:59:00 EDT, Weight Dosing Disposition Plan Discharge Prescription List Prescriptions naproxen 500 mg Tab, 500 mg= 1 tab(s), Oral, BID Ultram 50 mg Tab, 50 mg= 1 tab(s), Oral, q8hr Follow-up With When Contact Information Lorri Ireland In 3 days [address] [facility], [address] [place] [address]- Business (1) Additional Instructions: Patient Education Chronic Pain, Adult Problem List/Past Medical History Ongoing Asthma BMI 25.0-25.9,adult Dysuria History of COVID-19 (04-24-2021) Lower abdominal pain Numbness and tingling of leg Right flank pain Right lower quadrant pain Smoker Wrist pain Historical Acute low back pain Dental caries Heart murmur Pelvic congestion syndrome Procedure/Surgical History Nasal deviation, 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 Medications Inpatient No active inpatient medications Home BACLOFEN 10 MG TABLET, 0 Bentyl 10 mg Cap, 10 mg= 1 cap(s), Oral, QID, PRN Iron 100 Plus, Oral, Daily Zofran ODT 4 mg Tab-Dis, 4 mg= 1 tab(s), Oral, q8hr, PRN Allergies No Known Allergies Social History Alcohol - Denies Alcohol Use, 05/28/2021 Household alcohol concerns: No., 06/26/2022 Employment/School Unemployed, 05/16/2016 Exercise - Occasional exercise, 08/09/2016 Home/Environment Lives with Children, Significant other. Living situation: Home/Independent. Alcohol abuse in hous (more content not included)... Normal [facility] Comment on above: Result Comment: Elec tronically Signed By: Yobani Cardenas\.br\Electronically Co-Signed By: Justo Arias DO\.br\Date and Time Co-Signed: 11/24/23 12:57 EDT ED Patient Summaryon 024 ED Patient Summary ED Patient Summary [address] [address] Patient Discharge Instructions Person Information Name: ALEJANDRA REAL Age: 28 Years Arrival Date: 11/24/2023 11:46:11 Discharge Diagnosis: Chronic pelvic pain in female; Other chronic pain Primary Care Physician: Lorri Ireland CNP Provider Information Primary Provider: Justo Arias DO Advanced Bed And Breakfast Innkeeper:None The exam and treatment you received in the Emergency Department were for an urgent problem and are not intended as complete care. It is important that you follow up with a doctor, nurse practitioner, or physician?s orthotics assistant for ongoing care. If your symptoms become worse or you do not improve as expected and you are unable to reach your usual health care provider, you should return to the Emergency Department. We are available 24 hours a day. ALEJANDRA REAL has been given the following list of patient education materials, prescriptions and follow-up instructions: Follow-up Instructions: With: Address: When: Lorri Ireland [address] [facility], [facility], [address] [place] [address] Business (1) In 3 days In the event that this physician does not participate in your insurance network, please consult with your insurance company to find a nearby participating provider. Patient Education Materials: Chronic Pain, Adult A MESSAGE TO ALL PATIENTS REGARDING OPIOIDS PRESCRIPTION OPIOIDS: WHAT YOU NEED TO KNOW Prescription opioids can be used to help relieve [id number] pain and are often prescribed following a surgery or injury, or for certain health conditions. These medications can be an important part of the treatment but also come with serious risks. It is important to work with your healthcare provider to make sure you are getting the safest, most effective care. WHAT ARE THE RISKS AND SIDE EFFECTS OF OPIOID USE? Prescription opioids carry serious risks of addiction and overdose, especially with prolonged use. An opioid overdose, often marked by slowed breathing, can cause sudden . The use of prescription opioids can have a number of side effects as well, even when taken as directed: ? Tolerance?meaning you might need to take more of the medication for the same pain relief ? Physical dependence?meaning you have symptoms of withdrawal when a medication is stopped ? Increased sensitivity to pain ? Constipation ? Nausea, vomiting, and dry mouth ? Sleepiness and dizziness ? Confusion ? Depression ? Low levels of testosterone that can result in lower sex drive, energy, and strength ? Itching and sweating RISKS ARE GREATER WITH: ? History of drug misuse, substance use disorder, or overdose ? Mental health conditions (such as depression or anxiety) ? Sleep apnea ? Older age (65 years and older) ? Avoid alcohol while taking prescription opioids. Also, unless specifically advised by your health care provider, medications to avoid include: ? Benzodiazepines (such as Xanax or Valium) ? Muscle relaxants (such as Soma or Flexeril) ? Hypnotics (such as Ambien or Lunesta) ? Other prescription opioids KNOW YOUR OPTIONS Talk to your health care provider about ways to manage your pain that don?t involve prescription opioids. Some of these options may actually work better and have fewer risks and side effects. Options may include: ? Pain relievers such as acetaminophen, ibuprofen, and naproxen ? Some medication that are also used for depression or seizures ? Physical therapy and exercise ? Cognitive behavioral therapy, a psychological, goal-directed approach, in which patients learn how to modify physical, behavioral, and emotional triggers of pain and stress. IF YOU ARE PRESCRIBED OPIOIDS FOR PAIN: ? Never take opioids in greater amounts or more often than prescribed. ? Follow up with your primary health care provider. o Work together to create a plan on how to manage your pain. o Talk about ways to help manage your pain that don?t involve prescription opioids. o Talk about any and all concerns and side effects. ? Help prevent misuse and abuse o Never sell or share prescription opioids. o Never use another person?s prescription opioids. ? Store prescription opioids in a secure place and out of reach of others (this may include visitors, children, friends, and family). ? Safely dispose of unused prescription opioids: Find your community drug take-back program or your pharmacy mail-back program, or flush them down the toilet, following guidance from the Food and Drug Administration (www.fda.gov/Drugs/Re sourcesForYou). ? Visit www.cdc.gov/drugoverd ose to learn about the risks of opioids abuse and overdose. ? If you believe you may be struggling with addiction, tell your health vocational childcare teacher and ask for guidance or call [facility] National Helpline at (more content not included)... Normal [facility] Heart and Vascular Office/Cl inic Noteon 11-24-2023 Heart and Vascular Office/Clinic Note Heart and Vascular Office/Clinic Note Chief Complaint Pelvic Congestion Disorder History of Present Illness 27-year-old lady with pelvic congestion syndrome. She has typical radiologic and clinical picture of pelvic congestion syndrome. She has pelvic vein that has been disabling. CT angiogram showed dilated varicosities in the pelvis around the uterus and large 9.5 mm ovarian vein in the left side. He could see the right side is also dilated however most of her disease in the left side. We discussed different options. She tried nonoperative management with no resolution. I reviewed her images she has no May-Thurner syndrome. She has no nutcracker syndrome. She has typical pelvic congestion syndrome. She had denial by insurance company. Since then she had 12 visits to the ER with this pelvic pain. I discussed with her that we will submit again for insurance for approval for interventional treatment. Review of Systems PHQ Score Initial Depression Screen Score: 0 SCORE Constitutional: no fever, no chills, no sweats, no weakness Skin: no Jaundice, no rash, no lesions, nopetechiae ENMT: no ear pain, no sore throat, no congestion, no hoarseness Respiratory: no shortness of breath, no cough, no orthopnea, no wheezing Cardiovascular: no chest pain, no palpitations, no edema Gastrointestinal: no nausea, no vomiting, no diarrhea, no GI bleeding Genitourinary: no dysuria, no hematuria, no discharge, no pain Musculoskeletal: no back pain, no trauma Neurologic: no headache, no dizziness, no numbness, no weakness Psychiatric: no sleeping problems, no irritability, no mood swings/depression. Heme/Lymph: no bleeding tendency, no bruising tendency, no petechiae, no swollen nodes Allergy/Immunologic: no seasonal allergies, no food allergies, no recurrent infections, no impaired immunity Additional ROS info: Except as noted in the above Review of Systems and in the History of Present Illness all other systems have been reviewed and are negative or noncontributory. Physical Exam Vitals & Measurements HR: 78(Peripheral) RR: 16 BP: 124/73 SpO2: 99% HT: 63 in HT: 160 cm WT: 62.0 kg WT: 136.4 lb BMI: 24.22 General: alert, no acute distress Skin: warm, dry Head: no trauma, normocephalic Neck: Trachea midline, no adenopathy, no tenderness Eye: normal conjunctiva, sclera clear Cardiovascular: regular rate and rhythm, normal peripheral perfusion Respiratory: Lungs CTA, respirations non labored Chest wall: no deformity. Gastrointestinal: soft, non distended, no tenderness, no guarding. Back: No tenderness, Normal ROM, Normal alignment. Extremities: no edema,no deformity, no trauma Neurological: oriented x 4, LOC appropriate for age, motor strength equal & normal bilaterally, sensation equal & normal bilaterally, speech normal Psychiatric: cooperative, affect appropriate for age, normal judgement, normal psychiatric thoughts. Assessment/Plan 1. Pelvic congestion syndrome (N94.89: Other specified conditions associated with female genital organs and menstrual cycle) Pelvic venogram with sclerotherapy and coil embolization of the pelvic varicose veins and bilateral ovarian veins. Follow-up No qualifying data available Problem List/Past Medical History Ongoing Asthma BMI 25.0-25.9,adult Dysuria History of COVID-19 (04-24-2021) Lower abdominal pain Numbness and tingling of leg Right flank pain Right lower quadrant pain Smoker Wrist pain Historical Acute low back pain Dental caries Heart murmur Pelvic congestion syndrome Procedure/Surgical History Nasal deviation, 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 Medications BACLOFEN 10 MG TABLET, 0 Bentyl 10 mg Cap, 10 mg= 1 cap(s), Oral, QID, PRN Iron 100 Plus, Oral, Daily naproxen 500 mg Tab, 500 mg= 1 tab(s), Oral, BID Ultram 50 mg Tab, 50 mg= 1 tab(s), Oral, q8hr Zofran ODT 4 mg Tab-Dis, 4 mg= 1 tab(s), Oral, q8hr, PRN Allergies No Known Allergies Social History Alcohol - Denies Alcohol Use, 05/28/2021 Household alcohol concerns: No., 06/26/2022 Employment/School Unemployed, 05/16/2016 Exercise - Occasional exercise, 08/09/2016 Home/Environment Lives with Children, Significant other. Living situation: Home/Independent. Alcohol abuse in household: No. Substance abuse in household: No. Smoker in household: No. Injuries/Abuse/Neglec t in household: No. Feels unsafe at home: No. Safe place to go: Yes. Agency(s)/Others notified: No. Family/Friends available for support: Yes. Concern for family members at home: No. Major illness in household: No. Financial concerns: No. TV/Computer concerns: No., 08/09/2016 Lives with Significant other. Living situation: Home/Independent. Alcohol abuse in household: No. Substance abuse in household: No. Smoker in household: No. Injuries/Abuse/Neglec t in household: No. Feels unsafe at home: No. Safe place to go (more content not included)... Normal [facility] Comment on above: Result Comment: Elec tronically Signed By: Bon DC, Fatoumata Kelsey\.br\Date and Time Signed: 11/24/23 14:59 EDT CHEMISTRYOrdered By: SYSTEM SYSTEM on 11-05-2023 Albumin [Mass/Vol] 4.7 g/dL Normal 3.3 - 5.0 gm/dL Remisol Chem Albumin/Globulin [Mass ratio] 1.7 {ratio} Normal 1.1 - 2.2 Remisol Chem ALP [Catalytic activity/Vol] 90 [iU]/d Normal 21 - 98 Int._Unit/L Remisol Chem ALT No additional P-5'-P [Catalytic activity/Vol] 12 [iU]/d Normal 6 - 46 Int._Unit/L Remisol Chem Amylase [Catalytic activity/Vol] 41 U/L Normal 25 - 157 unit/L Remisol Chem Anion gap [Moles/Vol] 12 mmol/L Normal 6 - 16 mEq/L R emisol Chem AST [Catalytic activity/Vol] 15 [iU]/d Normal 5 - 43 Int._Unit/L Remisol Chem Bilirubin [Mass/Vol] 0.4 mg/dL Normal 0.0 - 1 .1 mg/dL Remisol Chem Bilirubin.direct [Mass/Vol] 0.1 mg/dL Normal 0.0 - 0.4 mg/dL Remisol Chem Bilirubin.indirect [Mass or moles/Vol] 0.3 mg/dL Normal 0.1 - 0.9 mg/dL Remisol Chem Calcium [Mass/Vol] 9.5 mg/dL Normal 8.9 - 11. 1 mg/dL Remisol Chem Chloride [Moles/Vol] 106 mmol/L Normal 101 - 1 11 mmol/L Remisol Chem CO2 [Moles/Vol] 27 mmol/L Normal 21 - 31 mmol/L Remisol Chem Creatinine [Mass/Vol] 0.8 mg/dL Normal 0.5 - 1.3 mg/dL Remisol Chem eGFR 102 mL/min/1.73 m2 Normal >=59mL/mi n/1 .73 m2 Remisol Chem Globulin (S) [Mass/Vol] 2.8 g/dL Normal 1.4 - 4.0 gm/dL Remisol Chem Glucose [Mass/Vol] 86 mg/dL Normal 55 - 199 mg/dL Remisol Chem Lipase [Catalytic activity/Vol] 35 U/L Normal 13 - 58 unit/L Remisol Chem Potassium [Moles/Vol] 3.1 mmol/L Low 3.5 - 5.3 mmol/L Remisol Chem Protein [Mass/Vol] 7.5 g/dL Normal 6.0 - 7.8 gm/dL Remisol Chem Sodium [Moles/Vol] 142 mmol/L Normal 135 - 145 mmol/L Remisol Chem Urea nitrogen [Mass/Vol] 10 mg/dL Normal 5 - 21 mg/dL Remisol Chem Urea nitrogen/Creatinine [Mass ratio] 12 mg/mg Normal 10 - [address] Abdomen/Pelvis w/ Contras ton 11-05-2023 CT Abdomen/Pelvis w/ Contrast Exam Date/Time: 11/05/2023 07:36 EDT Reason for Exam: Pain Report IMPRESSION: NO ACUTE INTRA-ABDOMINAL PROCESS OR SIGNIFICANT CHANGE FROM 07/26/2023 IDENTIFIED. EXAM: CT Abdomen/Pelvis w/ Contrast DATE: 11/05/2023 7:05 AM CLINICAL HISTORY: Pain. COMPARISON: Pelvic ultrasound from earlier 11/05/[address] abdomen pelvis 07/26/2023. TECHNIQUE: Spiral imaging was obtained of the abdomen and pelvis after the uneventful infusion of approximately 100 mL of Isovue [address] scans at this facility use dose modulation, iterative reconstruction, and/or weight based dosing when appropriate to reduce radiation dose to as low as reasonably achievable. Unless otherwise stated, incidental findings identified in this report do not require routine follow-up imaging. FINDINGS: Liver: No enlargement, significant fatty infiltration, suspicious mass or lesion. Biliary: The gallbladder is unremarkable. No abnormal biliary ductal dilatation. Pancreas: No mass, organized fluid collection, or abnormal pancreatic ductal dilatation. Spleen: Unremarkable. Adrenals: Unremarkable. Kidneys: No hydronephrosis, significant urinary tract calculi, or suspicious mass. GI tract: No abnormal dilation or wall thickening. Normal appendix. Lymph nodes: No pathologically enlarged lymph nodes. Mesentery/peritoneum: No ascites or mass. Retroperitoneum: No inflammatory changes or mass. Pelvis: Small collection of gas within the urinary bladder secondary to the recent catheterization. The nearly decompressed urinary bladder is otherwise unremarkable in appearance. The uterus and adnexa appear within normal limits. Vasculature: No aneurysm or dissection. Musculoskeletal: No acute osseous findings. Lower thorax: Noncontributory. Report Ordering Provider: Guille Will FINAL REPORT Dictated: 11/05/2023 7:59 am Dima Abdalla MD Signed (Electronic Signature): 11/05/2023 7:59 am Signed by: Dima Abdalla MD Transcribed by: FAHAD Technologist: CELIA Technical Comments GFR (mL/min/1/73m2) na Contrast: Isovue 300 Contrast amount in ml's: 100 Normal [facility] ED Clinical Summaryon 2023 ED Clinical Summary ED Clinical Summary [address] [address] ED Clinical Summary Person Information Name: ALEJANDRA REAL [facility] Age: 28 Years : 1995 Sex: Female Language: Uruguayan PCP: Lorri Ireland CNP Marital Status: Single Phone: [phone] Visit Id: Visit Reason: Nausea; Abdominal pain; Pelvic pain; LEFT SIDE ABD PAIN Speciality: Acuity: 3 Enc Type: Emergency Med Service: Emergency Arrival: 11/04/2023 23:45:14 Discharge: 11/05/2023 08:58:00 LOS: 000 09:13 Checkin: 11/04/2023 23:45:14 Checkout: 11/05/2023 08:58:00 Dispo Type: Home (Routine DC) EVENTS: Event Name Event Status Request Date/Time Start Date/Time Complete Date/Time Arrive Complete 11/04/2023 23:45:14 11/04/2023 23:45:14 11/04/2023 23:45:14 Document Home Meds Request 11/04/2023 23:45:14 Triage Complete 11/04/2023 23:45:14 11/05/2023 00:04:34 11/05/2023 00:04:34 Bed Assign Complete 11/05/2023 00:35:02 11/05/2023 00:35:02 11/05/2023 00:35:02 Dr Exam Complete 11/05/2023 00:35:02 11/05/2023 00:54:42 11/05/2023 00:54:42 RN Exam Complete 11/05/2023 00:35:02 11/05/2023 01:06:23 11/05/2023 01:06:23 Registration Complete 11/05/2023 00:54:42 11/05/2023 03:22:50 11/05/2023 03:22:50 Meds Admin Request 11/05/2023 01:10:56 Pending Labs Complete 11/05/2023 01:10:56 11/05/2023 02:21:25 Lab Complete 11/05/2023 01:10:56 11/05/2023 02:21:25 Pending Labs Complete 11/05/2023 01:37:39 11/05/2023 01:37:39 11/05/2023 02:21:25 Lab Complete 11/05/2023 01:37:39 11/05/2023 01:37:39 11/05/2023 02:21:25 US Complete 11/05/2023 03:15:15 11/05/2023 04:09:33 11/05/2023 04:57:35 Meds Admin Complete 11/05/2023 03:18:04 11/05/2023 03:46:11 Reg Complete Request 11/05/2023 03:22:50 Reg Bed Request Complete 11/05/2023 03:22:50 11/05/2023 03:22:50 11/05/2023 03:22:50 CT Complete 11/05/2023 06:08:02 11/05/2023 07:05:31 11/05/2023 07:36:21 Dr Exam Complete 11/05/2023 06:56:28 11/05/2023 06:56:28 11/05/2023 06:56:28 Registration Request 11/05/2023 06:56:28 Pending Labs Complete 11/05/2023 07:42:44 11/05/2023 07:42:44 11/05/2023 07:42:45 Meds Admin Complete 11/05/2023 08:38:50 11/05/2023 08:59:08 Discharge Complete 11/05/2023 08:48:21 11/05/2023 09:01:54 11/05/2023 09:01:54 Transfer Complete 11/05/2023 09:01:54 11/05/2023 09:01:54 11/05/2023 09:01:54 ADDRESS: [address] [place] [phone] [facility] DOC NOTES: MEDICAL INFORMATION: Prescriptions Given: Medications to Continue with No Changes Other Medications albuterol (Albuterol (Eqv-ProAir HFA) 90 mcg/inh inhalation aerosol) Inhalation every 6 hours. cyclobenzaprine (cyclobenzaprine 5 mg Tab) 1 Tablets By Mouth 2 times a day as needed Muscle pain for 7 Days. Refills: 0. dicyclomine (Bentyl 10 mg Cap) 1 Capsules By Mouth 4 times a day as needed Other (see comment). For abdominal cramping. Refills: 0. Misc Prescription (BACLOFEN 10 MG TABLET) 0. multivitamin with iron (Iron 100 Plus) By Mouth every day. naproxen (Naprosyn 500 mg Tab) 1 Tablets By Mouth 2 times a day. Refills: 0. ondansetron (Zofran ODT 4 mg Tab-Dis) 1 Tablets By Mouth 3 times a day. Refills: 0. ondansetron (Zofran ODT 4 mg Tab-Dis) 1 Tablets By Mouth every 8 hours as needed Nausea/Vomiting. Refills: 0. predniSONE (predniSONE 50 mg Tab) 1 Tablets By Mouth every day for 5 Days. Refills: 0. tramadol (traMADOL 50 mg Tab) 1 Tablets By Mouth every 8 hours as needed as needed for pain. Refills: 0. tramadol (traMADOL 50 mg Tab) 1 Tablets By Mouth every 6 hours as needed as needed for pain. Refills: 0. PATIENT EDUCATION INFORMATION: Instructions: Abdominal Pain, Adult; Chronic Pain, Adult Follow up: With: Address: When: Lorri Ireland [address] [place] [address], [place] [id number] Business (1) In 3 days 11/08/2023 Comments: Call the office of your primary care doctor to arrange for follow-up within the above-stated timeframe. Follow-up with your primary care doctor about this ED visit. You should review your labs, imaging, and diagnoses from this ED visit with your primary care physician. There are occasionally non-emergent findings that require additional follow-up after your ED visit. If you were prescribed medications you should discuss possible side-effects and drug interactions with your pharmacist. Call 911 or go to the nearest Emergency Department if you develop any new or worsening symptoms. Seek immediate medical attention if you develop: worsening abdominal pain, new or worsening nausea, new or worsening vomiting, new or worsening diarrhea, chest pain, shortness of breath, pain with urination, problems urinating, fever, chills, weakness, or any new or worsening symptoms. DIAGNOSIS: 1:Left lower quadrant abdominal pain; Chronic female pelvic pain; Other chronic pain Normal [facility] ED Note-Physicianon 11-05-19 ED Note-Physician ED Note-Physician Basic Information Time Seen: Guille Will MD 11/05/2023 00:54 Chief Complaint (L) ABD and pelvic pain for past week. Worsened in the past 3-4 days. States diagnosed with pelvic congestion syndrome. Nausea. History of Present Illness 28-year-old female presents the complaint of left-sided abdominal/pelvic pain which has been there for quite some time but has become worse the last couple days. Currently the Toradol tablets that she takes does not control the pain. There is some slight nausea but no vomiting. Bowel movements have been unchanged. Patient has a history of pelvic congestion syndrome and is scheduled to be seen by Dr. Gooden for possible surgery. Patient has had no previous abdominal surgery. She has had several ultrasounds performed which made the diagnosis of the pelvic congestion. Patient has an implanted control device in the left arm. She has not had a period in more than a year. She has had 3 previous pregnancies with vaginal delivery. She denies any chronic medical conditions. Denies hypertension diabetes heart lung or renal disease. Review of Systems A 10 point review of systems is negative except as noted above. Medical and Surgical History: Reviewed and noted Social history: Lives at home Tobacco: Denies Physical Exam Vitals & Measurements T: 36.9 ?C(Oral) HR: 74(Monitored) RR: 16 BP: 114/71 SpO2: 99% HT: 160 cm WT: 61.7 kg BMI: 24.1 This is a mildly overweight 28-year-old female she is alert and oriented skin is warm and dry color is pink on room air. Heart is regular without murmur gallop or rub. Lungs are clear to auscultation there is no respiratory guarding. Abdomen is slightly obese slightly distended soft tender to firm palpation in the left lower quadrant and suprapubic area. There is no guarding or rebound tenderness. Bowel sounds are active. Medical Decision Making I rechecked the patient shortly before 6 AM. She states that the 8 mg of morphine did help take the edge off the pain but she is not pain-free. I was able to reexamine the abdomen. The tenderness still localizes to the left lower quadrant. I do not feel any masses and there is certainly no guarding or rebound. I reviewed the patient's previous diagnostic testing. Her last CT scan was done on July 25 of this year. I discussed this with the patient and explained to her that although the ultrasound did not show acute pathology there was good blood flow to both ovaries and no large cyst was seen the possibility of missing some underlying pathology that requires this much pain medicine has to be considered. She understands that the CT scan will not be up again until 7 AM but does agree to wait to have the CT done to make sure we do not miss some other cause other than the pelvic congestion syndrome. Signout: Patient well-known to myself in this department for her chronic abdominal pain. She has received multiple negative workups. She is exhibited drug-seeking behavior in the past. She has multiple recent narcotic prescriptions from multiple providers. Her workup was reviewed. No acute findings today. Discussed with patient that she will need to follow-up with her primary care doctor. She would like prescription for narcotic pain medications which I declined. I do not feel comfortable prescribing her any narcotic pain medications at this time. She may follow-up with her outpatient care team for her chronic pain. Return precautions were discussed. All questions were answered. The patient was discharged home. Darren Lomax DO, [facility] Assessment/Plan 1. Left lower quadrant abdominal pain (R10.32: Left lower quadrant pain) Orders: ketorolac, 30 mg = 1 mL, Injection, IV Push, Once, Stop date 11/05/23 1:10:00 EDT, STAT, Start date 11/05/23 1:10:00 EDT, 11/05/23 1:10:00 EDT morphine, 4 mg = 1 mL, Injection, IV Push, Once, Stop date 11/05/23 1:10:00 EDT, STAT, Start date 11/05/23 1:10:00 EDT, 11/05/23 1:10:00 EDT morphine, 4 mg = 1 mL, Injection, IV Push, Once, Stop date 11/05/23 3:17:00 EDT, STAT, Start date 11/05/23 3:17:00 EDT, 11/05/23 3:17:00 EDT ondansetron, 4 mg = 2 mL, Injection, IV Push, Once, Stop date 11/05/23 1:10:00 EDT, STAT, Start date 11/05/23 1:10:00 EDT, 11/05/23 1:10:00 EDT Sodium Chloride 0.9% intravenous solution 1,000 mL, 1,000 mL, IV, 125 mL/hr, STAT, Start date 11/05/23 1:10:00 EDT, 8 hour(s), Total volume (mL): 1,000, 61.7 kg, 1.66, m2 Amylase Level Basic Metabolic Panel Beta hCG Qual CBC w/ Auto Diff CT Abdomen/Pelvis w/ Contrast eGFR Hepatic Function Panel Lipase Level UA with Cult Rflx US Pelvis Non-OB Complete Medications Administered Given Sodium Chloride 0.9% IV Isha 1000 mL 1,000 mL, 1000 mL, IV ketorolac 30 mg/mL Inj 1 mL, 30 mg, IV Push morphine 4 mg/mL Inj, 4 mg, IV Push morphine 4 mg/mL Inj, 4 mg, IV Push ondansetron 4 mg/2 mL Inj, 4 mg, IV Push Disposition Plan Discharge Prescription List Prescriptions No active prescription medications Follow-up No qualifying data a (more content not included)... Normal [facility] Comment on above: Result Comment: Elec tronically Signed By: Guille Will MD\.br\Date and Time Signed: 11/10/23 07:48 EDT\.br\Electronically Co-Signed By: Darren Lomax DO\.br\Date and Time Co-Signed: 11/05/23 09:11 EDT ED Patient Summaryon 024 ED Patient Summary ED Patient Summary [place] [id number] Patient Discharge Instructions Person Information Name: ALEJANDRA REAL Age: 28 Years Arrival Date: 11/04/2023 23:45:14 Discharge Diagnosis: 1:Left lower quadrant abdominal pain; Chronic female pelvic pain; Other chronic pain Primary Care Physician: Lorri Ireland CNP Provider Information Primary Provider: Guille Will MD [employer] Innkeeper:None The exam and treatment you received in the Emergency Department were for an urgent problem and are not intended as complete care. It is important that you follow up with a doctor, nurse practitioner, or physician?s orthotics assistant for ongoing care. If your symptoms become worse or you do not improve as expected and you are unable to reach your usual health care provider, you should return to the Emergency Department. We are available 24 hours a day. DAX ALEJANDRA Rafaela has been given the following list of patient education materials, prescriptions and follow-up instructions: Follow-up Instructions: With: Address: When: Lorri Ireland [address] [place] [address], [address] [place] [phone] Business (1) In 3 days 11/08/2023 Comments: Call the office of your primary care doctor to arrange for follow-up within the above-stated timeframe. Follow-up with your primary care doctor about this ED visit. You should review your labs, imaging, and diagnoses from this ED visit with your primary care physician. There are occasionally non-emergent findings that require additional follow-up after your ED visit. If you were prescribed medications you should discuss possible side-effects and drug interactions with your pharmacist. Call 911 or go to the nearest Emergency Department if you develop any new or worsening symptoms. Seek immediate medical attention if you develop: worsening abdominal pain, new or worsening nausea, new or worsening vomiting, new or worsening diarrhea, chest pain, shortness of breath, pain with urination, problems urinating, fever, chills, weakness, or any new or worsening symptoms. In the event that this physician does not participate in your insurance network, please consult with your insurance company to find a nearby participating provider. Patient Education Materials: Abdominal Pain, Adult; Chronic Pain, Adult A MESSAGE TO ALL PATIENTS REGARDING OPIOIDS PRESCRIPTION OPIOIDS: WHAT YOU NEED TO KNOW Prescription opioids can be used to help relieve ouguevsp-qz-kbftvm pain and are often prescribed following a surgery or injury, or for certain health conditions. These medications can be an important part of the treatment but also come with serious risks. It is important to work with your healthcare provider to make sure you are getting the safest, most effective care. WHAT ARE THE RISKS AND SIDE EFFECTS OF OPIOID USE? Prescription opioids carry serious risks of addiction and overdose, especially with prolonged use. An opioid overdose, often marked by slowed breathing, can cause sudden . The use of prescription opioids can have a number of side effects as well, even when taken as directed: ? Tolerance?meaning you might need to take more of the medication for the same pain relief ? Physical dependence?meaning you have symptoms of withdrawal when a medication is stopped ? Increased sensitivity to pain ? Constipation ? Nausea, vomiting, and dry mouth ? Sleepiness and dizziness ? Confusion ? Depression ? Low levels of testosterone that can result in lower sex drive, energy, and strength ? Itching and sweating RISKS ARE GREATER WITH: ? History of drug misuse, substance use disorder, or overdose ? Mental health conditions (such as depression or anxiety) ? Sleep apnea ? Older age (65 years and older) ? Avoid alcohol while taking prescription opioids. Also, unless specifically advised by your health care provider, medications to avoid include: ? Benzodiazepines (such as Xanax or Valium) ? Muscle relaxants (such as Soma or Flexeril) ? Hypnotics (such as Ambien or Lunesta) ? Other prescription opioids KNOW YOUR OPTIONS Talk to your health care provider about ways to manage your pain that don?t involve prescription opioids. Some of these options may actually work better and have fewer risks and side effects. Options may include: ? Pain relievers such as acetaminophen, ibuprofen, and naproxen ? Some medication that are also used for depression or seizures ? Physical therapy and exercise ? Cognitive behavioral therapy, a psychological, goal-directed approach, in which patients learn how to modify physical, behavioral, and emotional triggers of pain and stress. IF YOU ARE PRESCRIBED OPIOIDS FOR PAIN: ? Never take opioids in greater amounts or more often than prescribed. ? Follow up with your primary health care provider. o Work (more content not included)... Normal [facility] HEMATOLOGYOrdered By: SYSTEM SYSTEM on 11-05-2023 Basophils/100 WBC (Bld) 0.5 % Normal 0.0 - 2.0 % Remisol Heme Basophils/Leukocytes Auto (Bld) [Pure # fraction] 0.0 E9/L Normal 0.0 - 0.2 E9/L Remisol Heme Eosinophils (Bld) [#/Vol] 0.0 E9/L Normal 0.0 - 0.5 E9/L Remisol Heme Eosinophils/100 WBC (Bld) 0.5 % Normal 0.0 - 8.0 % Remisol Heme Erythrocyte distribution width (RBC) [Ratio] 13.4 % Normal 10.9 - 14.2 % Remisol Heme Hematocrit (Bld) [Volume fraction] 42.6 % Normal 34.0 - 46.0 % Remisol Heme Hemoglobin (Bld) [Mass/Vol] 14.6 g/dL Normal 12.0 - 16.0 gm/dL Remisol Heme Lymphocytes (Bld) [#/Vol] 2.6 E9/L Normal 1.0 - 4.0 E9/L Remisol Heme Lymphocytes/100 WBC (Bld) 26.2 % Normal 14.0 - 50.0 % Remisol Heme MCH (RBC) [Entitic mass] 30.7 pg Normal 27.0 - 34.0 pg Remisol Heme MCHC (RBC) [Mass/Vol] 34.3 g/dL Normal 31.4 - 36.0 gm/dL Remisol Heme MCV (RBC) [Entitic vol] 89.5 fL Normal 80.0 - 100.0 fL Remisol Heme Monocytes (Bld) [#/Vol] 0.5 E9/L Normal 0.2 - 1.0 E9/L Remisol Heme Monocytes/100 WBC (Bld) 5.3 % Normal 4.0 - 14.0 % Remisol Heme Neutrophils (Bld) [#/Vol] 6.6 E9/L Normal 2.0 - 7.5 E9/L Remisol Heme Neutrophils/100 WBC (Bld) 67.5 % Normal 36.0 - 75.0 % Remisol Heme Platelet mean volume (Bld) [Entitic vol] 7.2 fL Normal 6.4 - 10.8 fL Remisol Heme Platelets (Bld) [#/Vol] 372.0 E9/L Normal 150. 0 - 500.0 E9/L Remisol Heme RBC (Bld) [#/Vol] 4.8 E12/L Normal 4.3 - 5.9 E12/L Remisol Heme WBC corrected for nucl RBC Auto (Bld) [#/Vol] 9.8 E9/L Normal 4.0 - 11.0 E9/L Remisol Heme SEROLOGYOrdered By: Azam Au on 11-05-2023 Beta HCG ( test) Ql Negative (11/05/23 1:37 AM) Normal [facility] [place] URINALYSISOrdered By: SYSTEM SYSTEM on 11-05-2023 Bilirubin Ql (U) Negative Normal Negativemg/ d L [facility] [facility] [place] Auto SS Clarity (U) Clear (11/05/23 1:41 AM) Normal Clear [facility] [facility] [place] Auto SS Color (U) Light-Yellow 1 (11/05/23 1:41 AM) Normal Yellow [facility] [place] Auto SS Comment on above: Interpretive Data: M icroscopic readings are only performed on those samples that meet specific criteria set forth by [facility]. Glucose Ql (U) Negative Normal Negativemg/d L [facility] Auto SS Hemoglobin Auto test strip (U) [Mass/Vol] Negative Normal Negativemg/d L [facility] Auto SS Ketones Auto test strip Ql (U) Trace mg/dL Invalid Interpretation Code Negativemg/d L [facility] UA Auto SS Leukocyte esterase Auto test strip Ql (U) Negative Normal NegativeLeu/ uL [facility] Auto SS Nitrite Auto test strip Ql (U) Negative Normal Negativemg/d L [facility] UA Auto SS pH (U) 6.5 *NA* (11/05/23 1:41 AM) Invalid Interpretation Code 5.0 - 9.0 [facility] Auto SS Protein Ql (U) Negative Normal Negativemg/d L [facility] Auto SS Specific gravity (U) [Rel density] 1.024 *NA* (11/05/23 1:41 AM) Invalid Interpretation Code 1.005 - 1.030 [facility] Auto SS Urobilinogen (U) [Mass/Vol] Negative Normal Negativemg/d L [facility] [place] Auto SS URINALYSISOrdered By: Guille tavarez on 11-05-2023 UA Spec Desc Clean Catch (11/05/23 1:41 AM) Normal [facility] [place] Auto SS Work Phone: US Pelvis Non-OB Completeon 11-05-2023 US Pelvis Non-OB Complete Exam Date/Time: 11/05/2023 04:57 EDT Reason for Exam: Pelvic pain Report IMPRESSION: NEGATIVE ULTRASOUND OF THE PELVIS. CLINICAL HISTORY: Pelvic pain. COMPARISON: CT abdomen pelvis 07/26/2023 COMMENT: Transabdominal images were obtained. The uterus measurements and an estimated volume are: Uterus Length: 8.4 cm Uterus Width: 3.7 cm Uterus Height: 3.4 cm Uterus Volume: 55.9 cm3 Endometrium Thickness: 0.3 cm Normal appearance of the uterus. The right ovary measurements and an estimated volume are: Right Ovary Length: 2.1 cm Right Ovary Width: 1.7 cm Right Ovary Height: 1.2 cm Right Ovary Volume: 2.2 cm3 The left ovary measurements and an estimated volume are: Left Ovary Length: 2.1 cm Left Ovary Width: 2.2 cm Left Ovary Height: 1.8 cm Left Ovary Volume: 4.3 cm3 Normal appearance of the ovaries. Blood flow is identified to both ovaries. No adnexal mass or free fluid within the pelvis. Ordering Provider: Guille Will FINAL REPORT Dictated: 11/05/2023 11:25 am Geovany Mcknight DO Signed (Electronic Signature): 11/05/2023 11:25 am Signed by: Geovany Mcknight DO Transcribed by: FAHAD Technologist: ILA Technical Comments Transabdominal Ultrasound Performed Normal [facility] eGFRon 11-05-2023 eGFR 102 mL/min/1.73 m2 Normal >=59 [facility] Comment on above: Order Comment: Order added by Discern Expert. Performed By: #### 1 [id number] #### [facility] [address] [place] [address] Ambulatory Visit Summaryon 0 2023 Ambulatory Visit Summary Ambulatory Visit Summary ALEJANDRA REAL :1995 Visit Date:2023 Ambulatory Visit Instructions Your Diagnosis Abdominal pain in female Lumbar back pain Your Care Team Attending Physician - Suman Myles PA-C Primary Care Physician - Lorri Ireland CNP This Is Your Medications List Misc Prescription (BACLOFEN 10 MG TABLET) albuterol (Albuterol (Eqv-ProAir HFA) 90 mcg/inh inhalation aerosol) dicyclomine (Bentyl 10 mg Cap) multivitamin with iron (Iron 100 Plus) naproxen (Naprosyn 500 mg Tab) ondansetron (Zofran ODT 4 mg Tab-Dis) ondansetron (Zofran ODT 4 mg Tab-Dis) predniSONE (predniSONE 50 mg Tab) tramadol (traMADOL 50 mg Tab) tramadol (traMADOL 50 mg Tab) Procedures Performed Nasal deviation, 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 Discharge Vitals Temperature (Oral) 37 ?C Heart Rate (Peripheral) 101 Blood Pressure 136/70 Height 160 cm Height 63 in Weight 62 kg Weight 136.4 lb BMI 24.22 What to do next Scheduled Follow-Up Appointments Friday 10:45 AM EDT With: Bon DC, Fatoumata Kelsey Where: [facility] Friday 1:45 PM EDT With: Cristóbal Granados DO Where: [facility] Medications What How Much When Why Instructions Unchanged albuterol (Albuterol (Eqv-ProAir HFA) 90 mcg/ inh inhalation aerosol) Inhalation Every 6 hours Unchanged dicyclomine (Bentyl 10 mg Cap) 1 Capsules By Mouth 4 times a day as needed for Other (see comment) For abdominal cramping Unchanged Misc Prescription (BACLOFEN 10 MG TABLET) 0 Unchanged multivitamin with iron (Iron 100 Plus) By Mouth Every day Unchanged naproxen (Naprosyn 500 mg Tab) 1 Tablets By Mouth 2 times a day Unchanged ondansetron (Zofran ODT 4 mg Tab-Dis) 1 Tablets By Mouth 3 times a day Unchanged ondansetron (Zofran ODT 4 mg Tab-Dis) 1 Tablets By Mouth Every 8 hours as needed for Nausea/Vomiting Unchanged predniSONE (predniSONE 50 mg Tab) 1 Tablets By Mouth Every day Duration: 5 Days Unchanged tramadol (traMADOL 50 mg Tab) 1 Tablets By Mouth Every 8 hours as needed for as needed for pain Chronic pelvic pain in female Unchanged tramadol (traMADOL 50 mg Tab) 1 Tablets By Mouth Every 6 hours as needed for as needed for pain Chronic abdominal pain Allergies No Known Allergies Problems Ongoing - Any problem that you are currently receiving treatment for. Asthma BMI 25.0-25.9,adult Dysuria History of COVID-19 (04-24-2021) Lower abdominal pain Numbness and tingling of leg Right flank pain Right lower quadrant pain Smoker Wrist pain Historical - Any problem that you are no longer receiving treatment for. Acute low back pain Dental caries Heart murmur Pelvic congestion syndrome Patient Survey You may receive a survey via text or e-mail asking about your office visit. Please share your experience with us by completing your survey. We appreciate your feedback and thank you for choosing us for your care. Normal [facility] Bilirubin Test strip Ql (U)O rdered By: PROVIDER TEMP on 2023 Bilirubin Ql (U) Negative Negative [facility] Color of Urine by AutoOrdere d By: PROVIDER TEMP on 2023 Color (U) Colorless Normal Yellow [facility] Comment on above: Order Comment: Name Collection Type:: Voided Performed By: #### C MP, LIPASE, CBC #### [facility] [address] [id number] [facility] Family Medicine Office/Clini c Noteon 2023 Family Medicine Office/Clinic Note Family Medicine Office/Clinic Note Chief Complaint left abd pain and left back pain HPI Staff 27 year old female here for . Pt has pelvic congestion syndrome with chronic pain, pt has a a vein that needs a coil and stent in and has left lower abd pain that radiates to left back. Pt has taken Toradol and Naproxen for pain with no relief. History of Present Illness Patient is a 27-year-old female comes to the clinic today due to left lower quadrant and low back pain. Patient states that she has chronic pain due to pelvic congestion syndrome for which she is following with vascular surgery, Dr. Gooden, and is planning to have procedure performed in the near future to potentially alleviate symptoms. She reports that she has been having pretty significant pain over the last 3 days or so. She states that she has been trying heat packs to the area as well as Bentyl and oral Toradol which she has been prescribed at home and patient reports she is not really getting any relief from that. She also states she is prescribed prednisone and is taking that in addition to other listed medications. Patient denies any urinary symptoms such as dysuria or urinary frequency at this time. Patient also states she had a bowel movement this morning with no issue and no blood in her stool or other abnormality. Patient states that in addition to her usual left lower quadrant pain, she is also having left-sided low back pain that started about 2 days ago. She is not sure if this is related to her lower quadrant pain or if its its own separate issue. Does hurt to palpation and with certain movements that does not necessarily elicit pain to her left lower quadrant. No recent injury to her low back that patient can recall. Review of Systems PHQ Score Initial Depression Screen Score: 0 SCORE ROS negative unless otherwise stated in HPI. Physical Exam Vitals & Measurements T: 37 ?C(Oral) HR: 101(Peripheral) BP: 136/70 SpO2: 100% HT: 63 in HT: 160 cm WT: 62 kg WT: 136.4 lb BMI: 24.22 General: alert, no acute distress Skin: warm, dry intact Head: atraumatic, normocephalic Eye: normal conjunctiva, sclera clear Cardiovascular: regular rate and rhythm, nomurmur Respiratory: Lungs CTA, respirations non labored Gastrointestinal: soft, non distended, moderate LLQ tenderness to palpation, no guarding. Normal bowel sounds. Back: Patient has pain to palpation to left paraspinal muscles. No pain to lumbar spine or right paraspinal muscles. Patient has pain with straight leg raise on left side, although possibly related to left lower quadrant abdominal pain. Negative Christie bilateral Neurological: oriented x 4, LOC appropriate for age, speech normal Psychiatric: cooperative, affect appropriate for age, normal judgement, normal psychiatric thoughts. Assessment/Plan 1. Abdominal pain in female (R10.9: Unspecified abdominal pain) Patient has a chronic left lower quadrant abdominal pain due to pelvic congestion syndrome. She is following with vascular surgery, Dr. Gooden, and hopes to have a procedure to help alleviate some of this pain in the future. Discussed setting cilostazol the patient is resuming, but she reports she has been on that and it did not help her symptoms. Patient is already taking NSAIDs, Tylenol, prednisone on a regular basis and has had numerous narcotic prescription from other providers. Will hold off on narcotics at this time and suggest she continue with current medications until follow-up with vascular/PCP. Patient does not have any symptoms of dysuria or urinary complaints. She also does not have any issues with bowels. 2. Lumbar back pain (M54.50: Low back pain, unspecified) Patient has lumbar back pain at this time. Unclear if related to left lower quadrant pain or if it is a stone pain. Will give a short course of muscle relaxers to see if has an improvement with that. Continue with NSAIDs, Tylenol, prednisone as well as well as likely will help as well. Ordered: cyclobenzaprine, 5 mg = 1 tab(s), Oral, BID, PRN Muscle pain, X 7 day(s), # 14 tab(s), Refills(s) 0, Pharmacy: [facility]/pharmacy #[id number], 160, cm, 11/02/23 14:02:00 EDT, Height/Length Dosing, 62, kg, 11/02/23 14:02:00 EDT, Weight Dosing Portions of this record may have been created with voice recognition artificial intelligence software, specifically GoNetYourself, GranData and or Ekotrope. Substitutions may have occurred due to the inherent limitations of voice recognition and artificial intelligence software. Follow-up No qualifying data available Problem List/Past Medical History Ongoing Asthma BMI 25.0-25.9,adult Dysuria History of COVID-19 (04-24-2021) Lower abdominal pain Numbness and tingling of leg Right flank pain Right lower quadrant pain Smoker Wrist pain Historical Acute low back pain Dental caries Heart murmur Pelvic congestion syndrome Procedure/Surgical History Nasal deviation, cartilage (1 (more content not included)... Normal [facility] Comment on above: Result Comment: Elec tronically Signed By: Shameka LUKE, Suman Ford\.br\Date and Time Signed: 11/02/23 14:56 EDT Glucose [Mass/volume] in Uri ne by Test stripOrdered By: PROVIDER TEMP on 2023 Glucose Test strip (U) [Mass/Vol] Normal mg/dL Normal [facility] HCG ( test) IA.rapi d Ql (U)Ordered By: PROVIDER TEMP on 2023 HCG ( test) Ql (U) Negative [facility] HCG,Urineon 2023 Beta HCG ( test) Ql (U) Negative Normal [facility] Comment on above: Order Comment: Name Collection Type:: Voided Result Comment: PERF ORMED BY: [place] [address] PATHOLOGIST MEAT TEAM LEAD ALEXANDER SANDERS M.D. Performed By: #### C MP, LIPASE, CBC #### [facility] [address] [place] [address] Hemoglobin Test strip Ql (U) Ordered By: PROVIDER TEMP on 2023 Hemoglobin Ql (U) Negative Negative [facility] Ketones [Presence] in Urine by Test stripOrdered By: PROVIDER TEMP on 2023 Ketones Ql (U) Negative Normal Negative [facility] Comment on above: Order Comment: Name Collection Type:: Voided Performed By: #### C MP, LIPASE, CBC #### [facility] [address] [place] [address] [place] Leukocyte esterase [Presence ] in Urine by Test stripOrdered By: PROVIDER TEMP on 2023 Leukocyte esterase Test strip Ql (U) Negative Normal Negative [facility] Comment on above: Order Comment: Name Collection Type:: Voided Performed By: #### C MP, LIPASE, CBC #### [address] Nitrite Test strip Ql (U)Ord ered By: PROVIDER TEMP on 2023 Nitrite Ql (U) Negative Negative [facility] Protein Test strip (U) [Mass /Vol]Ordered By: PROVIDER TEMP on 2023 Protein (U) [Mass/Vol] Negative Negative [facility] Specific gravity Test strip (U) [Rel density]Ordered By: PROVIDER TEMP on 2023 Specific gravity (U) [Rel density] 1.012 1.001-1.030 [facility] Urinalysison 2023 Bilirubin,Urine Negative Normal Negative [facility] Comment on above: Order Comment: Name Collection Type:: Voided Performed By: #### C MP, LIPASE, CBC #### [place] [address] [place] Glucose Ql (U) Normal Normal Normal [facility] Comment on above: Order Comment: Name Collection Type:: Voided Performed By: #### C MP, LIPASE, CBC #### [place] [address] [place] Nitrite,Urine Negative Normal Negative [facility] Comment on above: Order Comment: Name Collection Type:: Voided Performed By: #### C MP, LIPASE, CBC #### [place] [address] [place] Occult Blood,Urine Negative Normal Negative [facility] Comment on above: Order Comment: Name Collection Type:: Voided Performed By: #### C MP, LIPASE, CBC #### [place] [address] [place] Protein,Urine Negative Normal Negative [facility] Comment on above: Order Comment: Name Collection Type:: Voided Performed By: #### C MP, LIPASE, CBC #### [place] [address] [place] Specificy [place],Urine 1.012 Normal 1.001-1.030 [facility] Comment on above: Order Comment: Name Collection Type:: Voided Performed By: #### C MP, LIPASE, CBC #### [facility] [address] Urobilinogen,Urine Normal Normal Normal [facility] Comment on above: Order Comment: Name Collection Type:: Voided Performed By: #### C MP, LIPASE, CBC #### [address] Urine appearanceOrdered By: PROVIDER TEMP on 2023 Appearance (U) Clear Normal Clear [facility] Comment on above: Order Comment: Name Collection Type:: Voided Performed By: #### C MP, LIPASE, CBC #### [address] Urobilinogen Test strip (U) [Mass/Vol]Ordered By: PROVIDER TEMP on 2023 Urobilinogen (U) [Mass/Vol] Normal mg/dL Normal [facility] pH of Urine by Test stripOrd ered By: PROVIDER TEMP on 2023 pH (U) 7.0 [pH] Normal 5.0-9.0 [facility] Comment on above: Order Comment: Name Collection Type:: Voided Performed By: #### C MP, LIPASE, CBC #### [address] ED Clinical Summaryon 2023 ED Clinical Summary ED Clinical Summary [place] [id number] ED Clinical Summary Person Information Name: ALEJANDRA REAL [place] Age: 27 Years : 1995 Sex: Female Language: Uruguayan PCP: Lorri Ireland CNP Marital Status: Single Phone: [phone] Visit Id: Visit Reason: Nausea; Abdominal pain; Back pain; WAS HERE YESTERDAY,PAIN HAS MOVED TO BACK Speciality: Acuity: 4 Enc Type: Emergency Med Service: Emergency Arrival: 11/01/2023 19:33:16 Discharge: 11/01/2023 20:05:55 LOS: 000 00:32 Checkin: 11/01/2023 19:33:16 Checkout: 11/01/2023 20:05:55 Dispo Type: Home (Routine DC) EVENTS: Event Name Event Status Request Date/Time Start Date/Time Complete Date/Time Arrive Complete 11/01/2023 19:33:16 11/01/2023 19:33:16 11/01/2023 19:33:16 Document Home Meds Request 11/01/2023 19:33:16 Triage Complete 11/01/2023 19:33:16 11/01/2023 19:40:14 11/01/2023 19:40:14 Registration Complete 11/01/2023 19:36:53 11/01/2023 19:36:53 11/01/2023 19:36:53 Reg Complete Request 11/01/2023 19:36:53 Reg Bed Request Complete 11/01/2023 19:36:53 11/01/2023 19:36:53 11/01/2023 19:36:53 Bed Assign Complete 11/01/2023 19:40:21 11/01/2023 19:40:21 11/01/2023 19:40:21 Dr Exam Complete 11/01/2023 19:40:21 11/01/2023 19:43:49 11/01/2023 19:43:49 RN Exam Complete 11/01/2023 19:40:21 11/01/2023 20:05:06 11/01/2023 20:05:06 Registration Request 11/01/2023 19:43:49 Meds Admin Complete 11/01/2023 19:56:26 11/01/2023 20:03:35 Discharge Complete 11/01/2023 19:57:01 11/01/2023 20:05:59 11/01/2023 20:05:59 Transfer Complete 11/01/2023 20:05:59 11/01/2023 20:05:59 11/01/2023 20:05:59 ADDRESS: [facility] [address] [place] [phone] [facility] DOC NOTES: MEDICAL INFORMATION: Prescriptions Given: Medications to Continue with No Changes Other Medications albuterol (Albuterol (Eqv-ProAir HFA) 90 mcg/inh inhalation aerosol) Inhalation every 6 hours. dicyclomine (Bentyl 10 mg Cap) 1 Capsules By Mouth 4 times a day as needed Other (see comment). For abdominal cramping. Refills: 0. Misc Prescription (BACLOFEN 10 MG TABLET) 0. multivitamin with iron (Iron 100 Plus) By Mouth every day. naproxen (Naprosyn 500 mg Tab) 1 Tablets By Mouth 2 times a day. Refills: 0. ondansetron (Zofran ODT 4 mg Tab-Dis) 1 Tablets By Mouth 3 times a day. Refills: 0. ondansetron (Zofran ODT 4 mg Tab-Dis) 1 Tablets By Mouth every 8 hours as needed Nausea/Vomiting. Refills: 0. predniSONE (predniSONE 50 mg Tab) 1 Tablets By Mouth every day for 5 Days. Refills: 0. tramadol (traMADOL 50 mg Tab) 1 Tablets By Mouth every 8 hours as needed as needed for pain. Refills: 0. tramadol (traMADOL 50 mg Tab) 1 Tablets By Mouth every 6 hours as needed as needed for pain. Refills: 0. PATIENT EDUCATION INFORMATION: Instructions: Abdominal Pain, Adult Follow up: With: Address: When: Fatoumata Gooden [address] [place] [address] Business (1) In 3 days 11/04/2023 With: Address: When: Lorri Ireland [address] [place] [address], [address] [place] [phone] Business (1) In 3 days DIAGNOSIS: AP (abdominal pain) Normal [facility] ED Note-Physicianon 11-01-19 ED Note-Physician ED Note-Physician Basic Information Time Seen: Bruno Jara DO 11/01/2023 19:43 Chief Complaint pt arrives for c/o back pain and abd pain. states she has pelvic congestion syndrome and is due to follow up with dr gooden and pain management History of Present Illness HPI: Patient is a 27-year-old female with past medical history of asthma, pelvic congestion syndrome who presents the ED for left lower abdominal pelvic pain. Patient states that she has chronic pain due to pelvic congestion syndrome for which she is following with Dr. Gooden and is planning to have procedure performed to help with this. She states that she has been trying heat packs to the area as well as Bentyl and oral Toradol which she has been prescribed at home and today the pain is unbearable. She denies any other symptoms at this time. She reports that in the past when she has had exacerbations of her pain she has been given short course of tramadol which has got her through it. ROS: Pertinent review of systems conducted and is negative except as noted above. Physical exam: General: nontoxic appearing and in no distress HEENT: Mucous membranes moist Neuro: awake and alert Neck: supple, trachea midline Card: Heart regular rate and rhythm no murmur Resp: Lungs clear to auscultation no wheeze or rhonchi Abd: Soft and nondistended. Left lower quadrant tenderness that rebound or guarding. Ext: No gross deformity or edema Physical Exam Vitals & Measurements T: 37 ?C(Oral) HR: 93(Peripheral) RR: 17 BP: 140/83 SpO2: 100% HT: 160 cm WT: 63.3 kg BMI: 24.73 Medical Decision Making MEDICAL DECISION MAKING Number and Complexity of Problems Differential Diagnosis: [] [facility] Data External documents reviewed: N/A My EKG interpretation: Noted in chart if applicable My CT interpretation: N/A My X-ray interpretation: Noted in chart if applicable My Ultrasound interpretation: N/A Decision rules/scores evaluated: N/A Discussed with: N/A Treatment and Disposition ED Course: Patient is nontoxic-appearing no distress. Mild left lower quadrant tenderness without peritonitis. She has no pelvic congestion syndrome for which she is following up with vascular surgery. Will give her a 4 pack of tramadol as needed for breakthrough pain she will continue doing her other pain control measures at home and will follow-up with vascular surgery. Shared decision making: As above Code status: N/A Assessment/Plan AP (abdominal pain) (R10.9: Unspecified abdominal pain) Orders: tramadol, 200 mg = 4 tab(s), Tab, Oral, Once, Stop date 11/01/23 19:55:00 EDT, STAT, Start date 11/01/23 19:55:00 EDT, 07/06/24 19:55:00 EDT Disposition Plan Discharge Prescription List Prescriptions No active prescription medications Follow-up With When Contact Information Fatoumata Gooden In 3 days 11/04/2023 EDT [address] [place] [address]- Business (1) Additional Instructions: Lorri Ireland In 3 days [address] [facility], [address] [place] [address]- Business (1) Additional Instructions: Patient Education Abdominal Pain, Adult Problem List/Past Medical History Ongoing Asthma BMI 25.0-25.9,adult Dysuria History of COVID-19 (04-24-2021) Lower abdominal pain Numbness and tingling of leg Right flank pain Right lower quadrant pain Smoker Wrist pain Historical Acute low back pain Dental caries Heart murmur Pelvic congestion syndrome Procedure/Surgical History Nasal deviation, 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 Medications Inpatient traMADOL 50 mg Tab, 200 mg= 4 tab(s), Oral, Once Home Albuterol (Eqv-ProAir HFA) 90 mcg/inh inhalation aerosol, Inhalation, q6hr BACLOFEN 10 MG TABLET, 0 Bentyl 10 mg Cap, 10 mg= 1 cap(s), Oral, QID, PRN Iron 100 Plus, Oral, Daily Naprosyn 500 mg Tab, 500 mg= 1 tab(s), Oral, BID predniSONE 50 mg Tab, 50 mg= 1 tab(s), Oral, Daily traMADOL 50 mg Tab, 50 mg= 1 tab(s), Oral, q6hr, PRN traMADOL 50 mg Tab, 50 mg= 1 tab(s), Oral, q8hr, PRN Zofran ODT 4 mg Tab-Dis, 4 mg= 1 tab(s), Oral, q8hr, PRN Zofran ODT 4 mg Tab-Dis, 4 mg= 1 tab(s), Oral, TID Allergies No Known Allergies Social History Alcohol - Denies Alcohol Use, 05/28/2021 Household alcohol concerns: No., 06/26/2022 Employment/School Unemployed, 05/16/2016 Exercise - Occasional exercise, 08/09/2016 Home/Environment Lives with Children, Significant other. Living situation: Home/Independent. Alcohol abuse in household: No. Substance abuse in household: No. Smoker in household: No. Injuries/Abuse/Neglec t in household: No. Feels unsafe at home: No. Safe place to go: Yes. Agency(s)/Others notified: No. Family/Friends available for support: Yes. Concern for family members at home: No. Major illness in household: No. Financial concerns: No. TV/Computer concerns: No., 08/09/2016 Lives with Si (more content not included)... [facility] Comment on above: Result Comment: Elec tronically Signed By: Bruno Jara DO\.br\Date and Time Signed: 11/01/23 19:58 EDT ED Note-Physician ED Note-Physician Basic Information Time Seen: Barb LUKE, [place] Gloria 10/31/2023 12:48 Chief Complaint left abd pain. same pain. nausea since yesterday History of Present Illness Patient is a 27-year-old female with a history of pelvic congestion syndrome and chronic pain who presents to the ED with recurrent left lower abdominal pain. Patient states she was in the ED yesterday with similar pain in which she was given Toradol. Patient notes minimal relief in pain with this. She states she has an appointment scheduled with pain management and another appointment scheduled with Dr. Gooden in 3 days. Patient notes that she was nauseous earlier today in which she took Zofran at home which relieved the nausea. Patient also notes urinary urgency that began today as well. Patient denies any known fevers, dysuria, hematuria, changes in bowel movements, chest pain, or shortness of breath. She denies taking any medication for the pain today. Review of Systems A 10 point review of systems is negative except as noted above. Medical and Surgical History: Reviewed and noted Social history: Lives at home Family History: Reviewed. Tobacco: Denies Physical Exam Vitals & Measurements T: 36.8 ?C(Oral) HR: 95(Peripheral) RR: 18 BP: 130/73 SpO2: 99% HT: 160 cm WT: 63.2 kg BMI: 24.69 General: The patient appears well and in no apparent distress. Patient is resting comfortably on cart. Skin: Warm, dry, no pallor noted. Head: Normocephalic, atraumatic Neck: No JVD Eye: PERRLA, EOMI ENT: Moist mucus membranes Cardiovascular: Regular rate normal peripheral perfusion Respiratory: No respiratory distress no accessory muscle use no obvious audible wheezing Chest Wall: no deformity Musculoskeletal: normal ROM, no deformity, no swelling GI: Soft no obvious distention. No rebound or rigidity. No guarding. No tenderness. Neurological: A&O moves all extremities equal strength and symmetry Psychiatric: Cooperative and appropriate Medical Decision Making Patient is a 27-year-old female with a history of pelvic congestion syndrome and chronic pain who presents to the ED with recurrent left lower abdominal pain. Patient is hemodynamically stable. On chart review patient has been in the ED 3 times in the past week with similar complaints. Patient was given Toradol today in the ED. Urinalysis unremarkable. Based on the patient's history she has tried varying medications. She is being prescribed prednisone as she notes she has experienced some relief with this in the past. Patient has previously been given a referral to pain management in which she has called to schedule an appointment. She follows up with Dr. Gooden in 3 days regarding the pelvic congestion syndrome. She was advised to return with any worsening symptoms. Patient is agreeable with the plan and all questions were answered. Assessment/Plan Chronic pain disorder (G89.4: Chronic pain syndrome) Orders: ketorolac, 30 mg = 1 mL, Injection, IntraMuscular, Once, Stop date 10/31/23 13:31:00 EDT, Start date 10/31/23 13:31:00 EDT predniSONE, 50 mg = 1 tab(s), Oral, Daily, X 5 day(s), # 5 tab(s), Refills(s) 0, Pharmacy: [id number], 160, cm, 10/31/23 12:45:00 EDT, Height/Length Dosing, 63.2, kg, 10/31/23 12:45:00 EDT, Weight Dosing Medications Administered Given mmcpab2Ivriiluil [F], 30 mg, IntraMuscular Disposition Plan Patient Discharge Condition Stable Discharge Disposition Home Discharge Prescription List Prescriptions predniSONE 50 mg Tab, 50 mg= 1 tab(s), Oral, Daily Follow-up With When Contact Information Follow-up with Dr. Gooden and pain management as scheduled. In 3 days 11/03/2023 EDT Additional Instructions: Lorri Ireland In [address] [place] [address], [address] [place] [address]- Business (1) Additional Instructions: Patient Education Abdominal Pain, Adult, Zama-xw-Hyrl Attestation Patient seen and evaluated by the physician orthotics assistant. Attending physician was present in the emergency department and supervised care. This visit was performed by both the physician and an APC. I performed all aspects of the MDM as documented. This report was transcribed using voice recognition software. Every effort was made to ensure accuracy, however, inadvertently computerized printer slotter helper mistakes may be present. Appropriate healthcare PPE was used in evaluating this patient. The patient was placed in a mask. The healthcare provider was wearing mask, gloves, and utilizing proper hand hygiene. All equipment was properly cleansed. I performed a substantive part of the MDM during the patient?s E/M visit. I personally made or approved the documented management plan and acknowledge its risk of complications. (Independent Interpretation) My (EKG/X-Ray/US/CT as applicable) interpretation as above. (Discussion) Management/test interpretation discussed with APC. Problem List/Past Medical History Ongoing Asthma BMI 25.0-25.9,adult Dysuria (more content not included)... [facility] Comment on above: Result Comment: Elec tronically Signed By: France Day PA-C\.br\Date and Time Signed: 10/31/23 17:23 EDT\.br\Electronically Co-Signed By: Justo Arias DO\.br\Date and Time Co-Signed: 11/01/23 07:47 EDT ED Patient Summaryon 024 ED Patient Summary ED Patient Summary [facility] [address], [place] [id number] Patient Discharge Instructions Person Information Name: ALEJANDRA REAL Age: 27 Years Arrival Date: 11/01/2023 19:33:16 Discharge Diagnosis: AP (abdominal pain) Primary Care Physician: Lorri Ireland CNP Provider Information Primary Provider: Bruno Jara DO Advanced Bed And Breakfast Innkeeper:None The exam and treatment you received in the Emergency Department were for an urgent problem and are not intended as complete care. It is important that you follow up with a doctor, nurse practitioner, or physician?s orthotics assistant for ongoing care. If your symptoms become worse or you do not improve as expected and you are unable to reach your usual health care provider, you should return to the Emergency Department. We are available 24 hours a day. REAL, ALEJANDRA Russo has been given the following list of patient education materials, prescriptions and follow-up instructions: Follow-up Instructions: With: Address: When: Fatoumata Gooden [address] [place] [address] Business (1) In 3 days 11/04/2023 With: Address: When: Lorri Ireland [address] [place] [address], [address] [place] [phone] Business (1) In 3 days In the event that this physician does not participate in your insurance network, please consult with your insurance company to find a nearby participating provider. Patient Education Materials: Abdominal Pain, Adult A MESSAGE TO ALL PATIENTS REGARDING OPIOIDS PRESCRIPTION OPIOIDS: WHAT YOU NEED TO KNOW Prescription opioids can be used to help relieve jwechofo-ie-pbetlu pain and are often prescribed following a surgery or injury, or for certain health conditions. These medications can be an important part of the treatment but also come with serious risks. It is important to work with your healthcare provider to make sure you are getting the safest, most effective care. WHAT ARE THE RISKS AND SIDE EFFECTS OF OPIOID USE? Prescription opioids carry serious risks of addiction and overdose, especially with prolonged use. An opioid overdose, often marked by slowed breathing, can cause sudden . The use of prescription opioids can have a number of side effects as well, even when taken as directed: ? Tolerance?meaning you might need to take more of the medication for the same pain relief ? Physical dependence?meaning you have symptoms of withdrawal when a medication is stopped ? Increased sensitivity to pain ? Constipation ? Nausea, vomiting, and dry mouth ? Sleepiness and dizziness ? Confusion ? Depression ? Low levels of testosterone that can result in lower sex drive, energy, and strength ? Itching and sweating RISKS ARE GREATER WITH: ? History of drug misuse, substance use disorder, or overdose ? Mental health conditions (such as depression or anxiety) ? Sleep apnea ? Older age (65 years and older) ? Avoid alcohol while taking prescription opioids. Also, unless specifically advised by your health care provider, medications to avoid include: ? Benzodiazepines (such as Xanax or Valium) ? Muscle relaxants (such as Soma or Flexeril) ? Hypnotics (such as Ambien or Lunesta) ? Other prescription opioids KNOW YOUR OPTIONS Talk to your health care provider about ways to manage your pain that don?t involve prescription opioids. Some of these options may actually work better and have fewer risks and side effects. Options may include: ? Pain relievers such as acetaminophen, ibuprofen, and naproxen ? Some medication that are also used for depression or seizures ? Physical therapy and exercise ? Cognitive behavioral therapy, a psychological, goal-directed approach, in which patients learn how to modify physical, behavioral, and emotional triggers of pain and stress. IF YOU ARE PRESCRIBED OPIOIDS FOR PAIN: ? Never take opioids in greater amounts or more often than prescribed. ? Follow up with your primary health care provider. o Work together to create a plan on how to manage your pain. o Talk about ways to help manage your pain that don?t involve prescription opioids. o Talk about any and all concerns and side effects. ? Help prevent misuse and abuse o Never sell or share prescription opioids. o Never use another person?s prescription opioids. ? Store prescription opioids in a secure place and out of reach of others (this may include visitors, children, friends, and family). ? Safely dispose of unused prescription opioids: Find your community drug take-back program or your pharmacy mail-back program, or flush them down the toilet, following guidance from the Food and Drug Administration (www.fda.gov/Drugs/Re sourcesForYou). ? Visit www.cdc.gov/drugoverd ose to learn about the risks of opioids abuse and overdose. ? If you believe you may be struggling with addicti (more content not included)... [facility] ED Clinical Summaryon 2023 ED Clinical Summary ED Clinical Summary [address] [address] ED Clinical Summary Person Information Name: ALEJANDRA REAL [place] Age: 27 Years : 1995 Sex: Female Language: Uruguayan PCP: Lorri Ireland CNP Marital Status: Single Phone: [phone] Visit Id: Visit Reason: Nausea; Abdominal pain; LEFT SIDE ABDOMINAL PAIN Speciality: Acuity: 4 Enc Type: Emergency Med Service: Emergency Arrival: 10/31/2023 12:38:24 Discharge: 10/31/2023 14:04:02 LOS: 000 01:26 Checkin: 10/31/2023 12:38:24 Checkout: 10/31/2023 14:04:02 Dispo Type: Home (Routine DC) EVENTS: Event Name Event Status Request Date/Time Start Date/Time Complete Date/Time Arrive Complete 10/31/2023 12:38:24 10/31/2023 12:38:24 10/31/2023 12:38:24 Document Home Meds Request 10/31/2023 12:38:24 Triage Complete 10/31/2023 12:38:24 10/31/2023 12:45:54 10/31/2023 12:45:54 Registration Complete 10/31/2023 12:40:52 10/31/2023 12:40:52 10/31/2023 12:40:52 Reg Complete Request 10/31/2023 12:40:52 Reg Bed Request Complete 10/31/2023 12:40:52 10/31/2023 12:40:52 10/31/2023 12:40:52 Bed Assign Complete 10/31/2023 12:44:02 10/31/2023 12:44:02 10/31/2023 12:44:02 Dr Exam Complete 10/31/2023 12:44:02 10/31/2023 12:48:20 10/31/2023 12:48:20 RN Exam Complete 10/31/2023 12:44:02 10/31/2023 12:47:59 10/31/2023 12:47:59 Pending Labs Complete 10/31/2023 12:48:19 10/31/2023 12:59:51 Registration Request 10/31/2023 12:48:20 Dr Exam Complete 10/31/2023 12:48:31 10/31/2023 12:48:31 10/31/2023 12:48:31 Meds Admin Cancel 10/31/2023 13:21:08 10/31/2023 13:32:48 Discharge Complete 10/31/2023 13:48:29 10/31/2023 14:04:07 10/31/2023 14:04:07 Transfer Complete 10/31/2023 14:04:07 10/31/2023 14:04:07 10/31/2023 14:04:07 ADDRESS: [address] [facility] [phone] PHYS DOC NOTES: MEDICAL INFORMATION: Prescriptions Given: New Medications [id number], [address] [place], [place] [phone], [phone] predniSONE (predniSONE 50 mg Tab) 1 Tablets By Mouth every day for 5 Days. Refills: 0. Medications to Continue with No Changes Other Medications albuterol (Albuterol (Eqv-ProAir HFA) 90 mcg/inh inhalation aerosol) Inhalation every 6 hours. dicyclomine (Bentyl 10 mg Cap) 1 Capsules By Mouth 4 times a day as needed Other (see comment). For abdominal cramping. Refills: 0. Misc Prescription (BACLOFEN 10 MG TABLET) 0. multivitamin with iron (Iron 100 Plus) By Mouth every day. naproxen (Naprosyn 500 mg Tab) 1 Tablets By Mouth 2 times a day. Refills: 0. ondansetron (Zofran ODT 4 mg Tab-Dis) 1 Tablets By Mouth 3 times a day. Refills: 0. ondansetron (Zofran ODT 4 mg Tab-Dis) 1 Tablets By Mouth every 8 hours as needed Nausea/Vomiting. Refills: 0. tramadol (traMADOL 50 mg Tab) 1 Tablets By Mouth every 8 hours as needed as needed for pain. Refills: 0. tramadol (traMADOL 50 mg Tab) 1 Tablets By Mouth every 6 hours as needed as needed for pain. Refills: 0. PATIENT EDUCATION INFORMATION: Instructions: Abdominal Pain, Adult, Adxq-ho-Yizw Follow up: With: Address: When: Follow-up with Dr. Gooden and pain management as scheduled. In 3 days 11/03/2023 With: Address: When: Lorri Ireland [address] [place] [address], [facility], [address] [place] [address] Business (1) In 3 days DIAGNOSIS: Chronic pain disorder Normal [facility] ED Patient Summaryon 024 ED Patient Summary ED Patient Summary [address] [address] Patient Discharge Instructions Person Information Name: ALEJANDRA REAL Age: 27 Years Arrival Date: 10/31/2023 12:38:24 Discharge Diagnosis: Chronic pain disorder Primary Care Physician: Lorri Ireland CNP Provider Information Primary Provider: Justo Arias DO Advanced Bed And Breakfast Innkeeper:France Day PA-C The exam and treatment you received in the Emergency Department were for an urgent problem and are not intended as complete care. It is important that you follow up with a doctor, nurse practitioner, or physician?s orthotics assistant for ongoing care. If your symptoms become worse or you do not improve as expected and you are unable to reach your usual health care provider, you should return to the Emergency Department. We are available 24 hours a day. ALEJANDRA REAL has been given the following list of patient education materials, prescriptions and follow-up instructions: Follow-up Instructions: With: Address: When: Follow-up with Dr. Gooden and pain management as scheduled. In 3 days 11/03/2023 With: Address: When: Lorri Ireland [address] [place] [address], [facility], [address] [place] [address] Business (1) In 3 days In the event that this physician does not participate in your insurance network, please consult with your insurance company to find a nearby participating provider. Patient Education Materials: Abdominal Pain, Adult, Rvqy-nn-Ncco A MESSAGE TO ALL PATIENTS REGARDING OPIOIDS PRESCRIPTION OPIOIDS: WHAT YOU NEED TO KNOW Prescription opioids can be used to help relieve simddsbj-ry-jnclmp pain and are often prescribed following a surgery or injury, or for certain health conditions. These medications can be an important part of the treatment but also come with serious risks. It is important to work with your healthcare provider to make sure you are getting the safest, most effective care. WHAT ARE THE RISKS AND SIDE EFFECTS OF OPIOID USE? Prescription opioids carry serious risks of addiction and overdose, especially with prolonged use. An opioid overdose, often marked by slowed breathing, can cause sudden . The use of prescription opioids can have a number of side effects as well, even when taken as directed: ? Tolerance?meaning you might need to take more of the medication for the same pain relief ? Physical dependence?meaning you have symptoms of withdrawal when a medication is stopped ? Increased sensitivity to pain ? Constipation ? Nausea, vomiting, and dry mouth ? Sleepiness and dizziness ? Confusion ? Depression ? Low levels of testosterone that can result in lower sex drive, energy, and strength ? Itching and sweating RISKS ARE GREATER WITH: ? History of drug misuse, substance use disorder, or overdose ? Mental health conditions (such as depression or anxiety) ? Sleep apnea ? Older age (65 years and older) ? Avoid alcohol while taking prescription opioids. Also, unless specifically advised by your health care provider, medications to avoid include: ? Benzodiazepines (such as Xanax or Valium) ? Muscle relaxants (such as Soma or Flexeril) ? Hypnotics (such as Ambien or Lunesta) ? Other prescription opioids KNOW YOUR OPTIONS Talk to your health care provider about ways to manage your pain that don?t involve prescription opioids. Some of these options may actually work better and have fewer risks and side effects. Options may include: ? Pain relievers such as acetaminophen, ibuprofen, and naproxen ? Some medication that are also used for depression or seizures ? Physical therapy and exercise ? Cognitive behavioral therapy, a psychological, goal-directed approach, in which patients learn how to modify physical, behavioral, and emotional triggers of pain and stress. IF YOU ARE PRESCRIBED OPIOIDS FOR PAIN: ? Never take opioids in greater amounts or more often than prescribed. ? Follow up with your primary health care provider. o Work together to create a plan on how to manage your pain. o Talk about ways to help manage your pain that don?t involve prescription opioids. o Talk about any and all concerns and side effects. ? Help prevent misuse and abuse o Never sell or share prescription opioids. o Never use another person?s prescription opioids. ? Store prescription opioids in a secure place and out of reach of others (this may include visitors, children, friends, and family). ? Safely dispose of unused prescription opioids: Find your community drug take-back program or your pharmacy mail-back program, or flush them down the toilet, following guidance from the Food and Drug Administration (www.fda.gov/Drugs/Re sourcesForYou). ? Visit www.cdc.gov/drugoverd ose to learn about the risks of opioids abuse and overdose. ? If you believe you may be struggling wi (more content not included)... Normal [facility] UA with Cult Rflxon 10-31-19 24 Bilirubin Ql (U) Negative Normal Negative [facility] Comment on above: Performed By: #### 4 [id number] #### [facility] [address] [place] [address] Clarity (U) Clear Normal Clear [facility] Comment on above: Performed By: #### 4 [id number] #### [facility] [address] [place] [address] Color (U) Light-Yellow Normal Yellow [facility] Comment on above: Result Comment: Micr oscopic readings are only performed on those samples that meet specific criteria set forth by [facility]. Performed By: #### 4 [id number] #### [facility] [address] [place] [address] Glucose Ql (U) Negative Normal Negative [facility] [place] Comment on above: Performed By: #### 4 [id number] #### [facility] [address] [place] [address] Hemoglobin Auto test strip (U) [Mass/Vol] Negative Normal Negative [facility] Comment on above: Performed By: #### 4 [id number] #### [facility] [address] [place] [address] Ketones Auto test strip Ql (U) Negative Normal Negative [facility] Comment on above: Performed By: #### 4 [id number] #### [facility] [address] [place] [address] Leukocyte esterase Auto test strip Ql (U) Negative Normal Negative [facility] Comment on above: Performed By: #### 4 [id number] #### [facility] [address] [place] [address] Nitrite Auto test strip Ql (U) Negative Normal Negative [facility] Comment on above: Performed By: #### 4 [id number] #### [facility] [address] [place] [id number] pH (U) 6.0 [pH] Invalid Interpretation Code 5.0-9.0 [facility] Comment on above: Performed By: #### 4 [id number] #### [facility] [address] [place] [id number] Protein Ql (U) Negative Normal Negative [facility] [place] Comment on above: Performed By: #### 4 [id number] #### [facility] [address] [id number] Specific gravity (U) [Rel density] 1.017 Invalid Interpretation Code 1.005-1.030 [facility] Comment on above: Performed By: #### 4 [id number] #### [facility] [address] [id number] Urobilinogen (U) [Mass/Vol] Negative Normal Negative [facility] Comment on above: Performed By: #### 4 [id number] #### [facility] [address] [place] [address] Type of Urine collection method Clean Catch Normal [facility] Comment on above: Performed By: #### 4 [id number] #### [facility] [address] [id number] URINALYSISOrdered By: SYSTEM SYSTEM on 10-31-2023 Bilirubin Ql (U) Negative Normal Negativemg/ d L [facility] [facility] [place] Clarity (U) Clear (10/31/23 12:50 PM) Normal Clear [facility] [facility] [place] Color (U) Light-Yellow 1 (10/31/23 12:50 PM) Normal Yellow [facility] [place] Comment on above: Interpretive Data: M icroscopic readings are only performed on those samples that meet specific criteria set forth by [facility]. Glucose Ql (U) Negative Normal Negativemg/d L [facility] Auto SS Hemoglobin Auto test strip (U) [Mass/Vol] Negative Normal Negativemg/d L [facility] Auto SS Ketones Auto test strip Ql (U) Negative Normal Negativemg/d L [facility] Auto SS Leukocyte esterase Auto test strip Ql (U) Negative Normal NegativeLeu/ uL [facility] UA Auto SS Nitrite Auto test strip Ql (U) Negative Normal Negativemg/d L [facility] Auto SS pH (U) 6.0 *NA* (10/31/23 12:50 PM) Invalid Interpretation Code 5.0 - 9.0 [facility] Auto SS Protein Ql (U) Negative Normal Negativemg/d L [facility] UA Auto SS Specific gravity (U) [Rel density] 1.017 *NA* (10/31/23 12:50 PM) Invalid Interpretation Code 1.005 - 1.030 [facility] Auto SS Urobilinogen (U) [Mass/Vol] Negative Normal Negativemg/d L [facility] UA Auto SS URINALYSISOrdered By: Donna Coelho on 10-31-2023 UA Spec Desc Clean Catch (10/31/23 12:50 PM) Normal [facility] [place] [facility] [place] ED Clinical Summaryon 2023 ED Clinical Summary ED Clinical Summary [address] [id number] ED Clinical Summary Person Information Name: ALEJANDRA REAL [facility] Age: 27 Years : 1995 Sex: Female Language: Uruguayan PCP: Lorri Ireland CNP Marital Status: Single Phone: [phone] Visit Id: Visit Reason: Pelvic pain; Chronic pain; PELVIC PAIN Speciality: Acuity: 4 Enc Type: Emergency Med Service: Emergency Arrival: 10/30/2023 16:04:18 Discharge: 10/30/2023 16:58:07 LOS: 000 00:54 Checkin: 10/30/2023 16:04:18 Checkout: 10/30/2023 16:58:07 Dispo Type: Home (Routine DC) EVENTS: Event Name Event Status Request Date/Time Start Date/Time Complete Date/Time Arrive Complete 10/30/2023 16:04:18 10/30/2023 16:04:18 10/30/2023 16:04:18 Document Home Meds Request 10/30/2023 16:04:18 Triage Complete 10/30/2023 16:04:18 10/30/2023 16:14:51 10/30/2023 16:14:51 Bed Assign Complete 10/30/2023 16:12:32 10/30/2023 16:12:32 10/30/2023 16:12:32 Dr Exam Complete 10/30/2023 16:12:32 10/30/2023 16:15:28 10/30/2023 16:15:28 RN Exam Complete 10/30/2023 16:12:32 10/30/2023 16:51:35 10/30/2023 16:51:35 Registration Complete 10/30/2023 16:15:28 10/30/2023 16:23:51 10/30/2023 16:23:51 Dr Exam Complete 10/30/2023 16:17:01 10/30/2023 16:17:01 10/30/2023 16:17:01 Reg Complete Request 10/30/2023 16:23:51 Reg Bed Request Complete 10/30/2023 16:23:51 10/30/2023 16:23:51 10/30/2023 16:23:51 Meds Admin Complete 10/30/2023 16:31:59 10/30/2023 16:44:19 Discharge Complete 10/30/2023 16:32:57 10/30/2023 16:58:39 10/30/2023 16:58:39 Transfer Complete 10/30/2023 16:58:39 10/30/2023 16:58:39 10/30/2023 16:58:39 ADDRESS: [address] [place] [id number] [facility] DOC NOTES: MEDICAL INFORMATION: Prescriptions Given: Medications to Continue with No Changes Other Medications albuterol (Albuterol (Eqv-ProAir HFA) 90 mcg/inh inhalation aerosol) Inhalation every 6 hours. dicyclomine (Bentyl 10 mg Cap) 1 Capsules By Mouth 4 times a day as needed Other (see comment). For abdominal cramping. Refills: 0. Misc Prescription (BACLOFEN 10 MG TABLET) 0. multivitamin with iron (Iron 100 Plus) By Mouth every day. naproxen (Naprosyn 500 mg Tab) 1 Tablets By Mouth 2 times a day. Refills: 0. ondansetron (Zofran ODT 4 mg Tab-Dis) 1 Tablets By Mouth 3 times a day. Refills: 0. ondansetron (Zofran ODT 4 mg Tab-Dis) 1 Tablets By Mouth every 8 hours as needed Nausea/Vomiting. Refills: 0. tramadol (traMADOL 50 mg Tab) 1 Tablets By Mouth every 8 hours as needed as needed for pain. Refills: 0. tramadol (traMADOL 50 mg Tab) 1 Tablets By Mouth every 6 hours as needed as needed for pain. Refills: 0. PATIENT EDUCATION INFORMATION: Instructions: Pelvic Pain, Female Follow up: With: Address: When: Follow with Dr. Gooden and pain management as already scheduled With: Address: When: Lorri Ireland [address] [place] [address], [facility], [address] [place] [address] Business (1) In 3 days DIAGNOSIS: 1:Chronic pain Normal [facility] ED Note-Physicianon 10-30-19 ED Note-Physician ED Note-Physician Basic Information Time Seen: Siomara Nettles PA-C 10/30/2023 16:15 Chief Complaint chronic pelvic pain, pain on left side today. Nausea despite Zofran. Supposed to see Dr. Gooden this week and supposed to f/u with pain management. History of Present Illness 27-year-old female with past medical history of chronic abdominal pain reportedly related to pelvic congestion syndrome presents to the ER complaining of left lower quadrant abdominal pain. Patient states this is similar to her usual pain but she could not get it under control today with a heating pad so she came to the ER for further evaluation. No fevers or chills, no nausea or vomiting. No other symptoms. Patient states she is scheduled to see vascular surgery on Friday. Also has referral to pain management. Review of Systems All organ systems are reviewed. Pertinent positive and negative findings as mentioned in the HPI. Physical Exam Vitals & Measurements T: 36.8 ?C(Oral) HR: 76(Peripheral) RR: 16 BP: 131/96 SpO2: 100% HT: 160 cm WT: 63.2 kg BMI: 24.69 GENERAL APPEARANCE: Well developed, well nourished, alert and cooperative, and appears to be in no acute distress. Sitting up in exam chair, accompanied by children. HEAD: normocephalic, atraumatic EYES: PERRL, EOMI. Vision is grossly intact. EARS: External auditory canals clear, hearing grossly intact. NOSE: No nasal discharge. THROAT: Oral cavity and pharynx normal. Oral mucosa moist. CARDIAC: Normal heart sounds, no murmurs. Rhythm is regular. LUNGS: Clear to auscultation without rales, rhonchi, wheezing or diminished breath sounds. ABDOMEN: Soft, distended. There is mild tenderness to do palpation of the left lower quadrant without rebound or guarding. MUSCULOSKELETAL: Adequately aligned spine. ROM intact spine and extremities. No joint erythema or tenderness. NEUROLOGICAL: CN grossly intact. Strength and sensation symmetric and intact throughout. SKIN: Skin normal color, texture and turgor with no lesions or eruptions. Assessment/Plan 1. Chronic pain (G89.29: Other chronic pain) Orders: ketorolac, 30 mg = 1 mL, Injection, IntraMuscular, Once, Stop date 10/30/23 16:31:00 EDT, STAT, Start date 10/30/23 16:31:00 EDT, 10/30/23 16:31:00 EDT 19-year-old female presents ER complaining of exacerbation of her chronic abdominal pain related to pelvic congestion syndrome. In the ER patient is afebrile vital signs are stable, no acute distress. Nontoxic-appearing. No evidence of peritonitis on exam. Will treat the patient with Toradol in the ER. Chart review shows that the patient has filled more than 20 prescriptions for tramadol from various providers over the course of the last 3 months. Will not prescribe any further narcotics at this time. Patient to follow with vascular surgery and pain management. Patient to return to the ER with any new or worsening symptoms. Patient voices understanding and is agreeable to plan Disposition Plan Patient Discharge Condition Improved, stable Discharge Disposition To home Discharge Prescription List Prescriptions No active prescription medications Follow-up With When Contact Information Follow with Dr. Gooden and pain management as already scheduled Additional Instructions: Lorri Ireland In 3 days [address] [facility], [address] [place] [address]- Business (1) Additional Instructions: Patient Education Pelvic Pain, Female Attestation Patient was treated and evaluated by the Physician Pure Pak Machine Operator. The attending physician was in the Emergency Department at all times and supervised care. The case was discussed with the attending physician and diagnostics were reviewed as needed. Problem List/Past Medical History Ongoing Asthma BMI 25.0-25.9,adult Dysuria History of COVID-19 (04-24-2021) Lower abdominal pain Numbness and tingling of leg Right flank pain Right lower quadrant pain Smoker Wrist pain Historical Acute low back pain Dental caries Heart murmur Pelvic congestion syndrome Procedure/Surgical History Nasal deviation, 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 Medications Inpatient ketorolac 30 mg/mL Inj 1 mL, 30 mg= 1 mL, IntraMuscular, Once Home Albuterol (Eqv-ProAir HFA) 90 mcg/inh inhalation aerosol, Inhalation, q6hr BACLOFEN 10 MG TABLET, 0 Bentyl 10 mg Cap, 10 mg= 1 cap(s), Oral, QID, PRN Iron 100 Plus, Oral, Daily Naprosyn 500 mg Tab, 500 mg= 1 tab(s), Oral, BID traMADOL 50 mg Tab, 50 mg= 1 tab(s), Oral, q6hr, PRN traMADOL 50 mg Tab, 50 mg= 1 tab(s), Oral, q8hr, PRN Zofran ODT 4 mg Tab-Dis, 4 mg= 1 tab(s), Oral, q8hr, PRN Zofran ODT 4 mg Tab-Dis, 4 mg= 1 tab(s), Oral, TID Allergies No Known Allergies Social History Alcohol - Denies Alcohol Use, 05/28/2021 Household alcohol concerns: No., 06/26/2022 Employment/School Unemployed, 05/16/2016 Exercise - O (more content not included)... Normal [facility] Comment on above: Result Comment: Elec tronically Signed By: Siomara Nettles PA-C\.br\Date and Time Signed: 10/30/23 16:35 EDT\.br\Electronically Co-Signed By: Mary Jane Palm M.D.\.br\Date and Time Co-Signed: 10/30/23 17:08 EDT ED Patient Summaryon 024 ED Patient Summary ED Patient Summary [address] [id number] Patient Discharge Instructions Person Information Name: ALEJANDRA REAL Age: 27 Years Arrival Date: 10/30/2023 16:04:18 Discharge Diagnosis: 1:Chronic pain Primary Care Physician: Lorri Ireland CNP Provider Information Primary Provider: Mary Jane Palm M.D. [employer] Innkeeper:Siomara Nettles PA-C The exam and treatment you received in the Emergency Department were for an urgent problem and are not intended as complete care. It is important that you follow up with a doctor, nurse practitioner, or physician?s orthotics assistant for ongoing care. If your symptoms become worse or you do not improve as expected and you are unable to reach your usual health care provider, you should return to the Emergency Department. We are available 24 hours a day. ALEJANDRA REAL has been given the following list of patient education materials, prescriptions and follow-up instructions: Follow-up Instructions: With: Address: When: Follow with Dr. Gooden and pain management as already scheduled With: Address: When: Lorri Ireland [address] [place] [address], [address] [id number] [facility] (1) In 3 days In the event that this physician does not participate in your insurance network, please consult with your insurance company to find a nearby participating provider. Patient Education Materials: Pelvic Pain, Female A MESSAGE TO ALL PATIENTS REGARDING OPIOIDS PRESCRIPTION OPIOIDS: WHAT YOU NEED TO KNOW Prescription opioids can be used to help relieve [id number] pain and are often prescribed following a surgery or injury, or for certain health conditions. These medications can be an important part of the treatment but also come with serious risks. It is important to work with your healthcare provider to make sure you are getting the safest, most effective care. WHAT ARE THE RISKS AND SIDE EFFECTS OF OPIOID USE? Prescription opioids carry serious risks of addiction and overdose, especially with prolonged use. An opioid overdose, often marked by slowed breathing, can cause sudden . The use of prescription opioids can have a number of side effects as well, even when taken as directed: ? Tolerance?meaning you might need to take more of the medication for the same pain relief ? Physical dependence?meaning you have symptoms of withdrawal when a medication is stopped ? Increased sensitivity to pain ? Constipation ? Nausea, vomiting, and dry mouth ? Sleepiness and dizziness ? Confusion ? Depression ? Low levels of testosterone that can result in lower sex drive, energy, and strength ? Itching and sweating RISKS ARE GREATER WITH: ? History of drug misuse, substance use disorder, or overdose ? Mental health conditions (such as depression or anxiety) ? Sleep apnea ? Older age (65 years and older) ? Avoid alcohol while taking prescription opioids. Also, unless specifically advised by your health care provider, medications to avoid include: ? Benzodiazepines (such as Xanax or Valium) ? Muscle relaxants (such as Soma or Flexeril) ? Hypnotics (such as Ambien or Lunesta) ? Other prescription opioids KNOW YOUR OPTIONS Talk to your health care provider about ways to manage your pain that don?t involve prescription opioids. Some of these options may actually work better and have fewer risks and side effects. Options may include: ? Pain relievers such as acetaminophen, ibuprofen, and naproxen ? Some medication that are also used for depression or seizures ? Physical therapy and exercise ? Cognitive behavioral therapy, a psychological, goal-directed approach, in which patients learn how to modify physical, behavioral, and emotional triggers of pain and stress. IF YOU ARE PRESCRIBED OPIOIDS FOR PAIN: ? Never take opioids in greater amounts or more often than prescribed. ? Follow up with your primary health care provider. o Work together to create a plan on how to manage your pain. o Talk about ways to help manage your pain that don?t involve prescription opioids. o Talk about any and all concerns and side effects. ? Help prevent misuse and abuse o Never sell or share prescription opioids. o Never use another person?s prescription opioids. ? Store prescription opioids in a secure place and out of reach of others (this may include visitors, children, friends, and family). ? Safely dispose of unused prescription opioids: Find your community drug take-back program or your pharmacy mail-back program, or flush them down the toilet, following guidance from the Food and Drug Administration (www.fda.gov/Drugs/Re sourcesForYou). ? Visit www.cdc.gov/drugoverd ose to learn about the risks of opioids abuse and overdose. ? If you believe you may be struggling with addiction, tell your health ca (more content not included)... Normal [facility] ED Clinical Summaryon 2023 ED Clinical Summary ED Clinical Summary [place] [id number] ED Clinical Summary Person Information Name: ALEJANDRA REAL [place] Age: 27 Years : 1995 Sex: Female Language: Uruguayan PCP: Lorri Ireland CNP Marital Status: Single Phone: [phone] Visit Id: Visit Reason: Chronic pain; Pelvic pain; PELVIC/ABD PAIN Speciality: Acuity: 4 Enc Type: Emergency Med Service: Emergency Arrival: 10/25/2023 13:28:13 Discharge: 10/25/2023 14:57:12 LOS: 000 01:29 Checkin: 10/25/2023 13:28:13 Checkout: 10/25/2023 14:57:12 Dispo Type: Home (Routine DC) EVENTS: Event Name Event Status Request Date/Time Start Date/Time Complete Date/Time Arrive Complete 10/25/2023 13:28:13 10/25/2023 13:28:13 10/25/2023 13:28:13 Document Home Meds Request 10/25/2023 13:28:13 Triage Complete 10/25/2023 13:28:13 10/25/2023 13:44:51 10/25/2023 13:44:51 Bed Assign Complete 10/25/2023 13:31:05 10/25/2023 13:31:05 10/25/2023 13:31:05 Dr Exam Complete 10/25/2023 13:31:05 10/25/2023 14:04:27 10/25/2023 14:04:27 RN Exam Complete 10/25/2023 13:31:05 10/25/2023 14:56:51 10/25/2023 14:56:51 Registration Complete 10/25/2023 13:36:02 10/25/2023 13:36:02 10/25/2023 13:36:02 Reg Complete Request 10/25/2023 13:36:02 Reg Bed Request Complete 10/25/2023 13:36:03 10/25/2023 13:36:03 10/25/2023 13:36:03 Registration Request 10/25/2023 14:04:27 Dr Exam Complete 10/25/2023 14:08:52 10/25/2023 14:08:52 10/25/2023 14:08:52 Discharge Complete 10/25/2023 14:42:47 10/25/2023 14:57:20 10/25/2023 14:57:20 Transfer Complete 10/25/2023 14:57:20 10/25/2023 14:57:20 10/25/2023 14:57:20 ADDRESS: [address] [facility] [id number] PHYS DOC NOTES: MEDICAL INFORMATION: Prescriptions Given: Medications to Continue Taking That Have Changed [id number], [address] [place], [place] [id number], [phone] START: tramadol (traMADOL 50 mg Tab) 1 Tablets By Mouth every 6 hours as needed for pain for 3 Days. Refills: 0. [id number], [address] [place], [place] [id number], [phone] START: tramadol (traMADOL 50 mg Tab) 1 Tablets By Mouth every 6 hours as needed for pain for 3 Days. Refills: 0. Other Medications START: tramadol (traMADOL 50 mg Tab) 1 Tablets By Mouth every 6 hours as needed as needed for pain. Refills: 0. START: tramadol (traMADOL 50 mg Tab) 1 Tablets By Mouth every 8 hours as needed as needed for pain. Refills: 0. Medications to Continue with No Changes Other Medications albuterol (Albuterol (Eqv-ProAir HFA) 90 mcg/inh inhalation aerosol) Inhalation every 6 hours. dicyclomine (Bentyl 10 mg Cap) 1 Capsules By Mouth 4 times a day as needed Other (see comment). For abdominal cramping. Refills: 0. Misc Prescription (BACLOFEN 10 MG TABLET) 0. multivitamin with iron (Iron 100 Plus) By Mouth every day. naproxen (Naprosyn 500 mg Tab) 1 Tablets By Mouth 2 times a day. Refills: 0. ondansetron (Zofran ODT 4 mg Tab-Dis) 1 Tablets By Mouth 3 times a day. Refills: 0. ondansetron (Zofran ODT 4 mg Tab-Dis) 1 Tablets By Mouth every 8 hours as needed Nausea/Vomiting. Refills: 0. PATIENT EDUCATION INFORMATION: Instructions: Chronic Pain, Adult Follow up: With: Address: When: Lorri Ireland [address] [place] [address], [facility], [address] [place] [phone] Business (1) In 3 days DIAGNOSIS: Chronic pain in female pelvis; Other chronic pain Normal [facility] ED Note-Physicianon 10-25-19 ED Note-Physician ED Note-Physician Basic Information Time Seen: Ulisses Mckinney PA-C 10/25/2023 14:04 Chief Complaint Pt having LLQ pain, chronic issue that has been seeing Dr. Gooden for. History of Present Illness A 27-year-old female reports emergency department with a chief complaint of chronic left lower quadrant pain. Reports that this is a chronic issue and does have a history of pelvic congestion syndrome. Reports that she does follow-up with Dr. Gooden for this. Reports that she has a appointment later this week for pain management as well. Just wanted to start some pain relief. Denies any fevers or chills. Denies any known allergies. States that she does have Zofran at home for nausea. Denies any urinary symptoms. Review of Systems No other aggravating or relieving factors no other associated symptoms no other prior treatments or complaints. Family: Reviewed and noncontributory Social: lives at home Review of systems negative unless otherwise specified in the HPI. Physical Exam Vitals & Measurements T: 36.9 ?C(Oral) HR: 79(Peripheral) RR: 16 BP: 119/77 SpO2: 100% HT: 160 cm WT: 65 kg BMI: 25.39 General: The patient appears well and in no apparent distress. Patient is resting comfortably on bed. Afebrile Skin: Warm, dry, no pallor noted. Head: Normocephalic, atraumatic Neck: No JVD Eye: PERRLA, EOMI ENT: Moist mucus membranes Cardiovascular: Regular rate normal peripheral perfusion Respiratory: No respiratory distress no accessory muscle use no obvious audible wheezing Chest Wall: no deformity Musculoskeletal: normal ROM, no deformity, no swelling GI: No obvious distention soft, no distention noted. Mild tenderness of left lower quadrant. No rib tenderness or guarding noted. Neurological: A&O moves all extremities equal strength and symmetry Psychiatric: Cooperative and appropriate Medical Decision Making MEDICAL DECISION MAKING Number and Complexity of Problems Differential Diagnosis: [] [facility] Data External documents reviewed: [] My EKG interpretation: [] My CT interpretation: [] My X-ray interpretation: [] My Ultrasound interpretation: [] Decision rules/scores evaluated: [] Discussed with: [] Treatment and Disposition ED Course: 27-year-old female reports to the emergency department with a chief complaint of acute flareup of her chronic pain. Reports history of pelvic congestion syndrome. Denies any new symptoms. Reports is a chronic pain. Exam the patient is benign. She has mild tenderness of left lower quadrant, but no signs peritonitis. Due to this, will treat with pain medications. Discussed alternate follow-up with her surgeon as well as she is following up with pain management. Discussed return precautions. Follow-up with your primary care provider in 3 to 5 days. If symptoms worsen, do not improve, or new symptoms arise please report back to emergency department for further evaluation. The patient was understanding and agreeable to plan moving forward. Shared decision making: [] Code status: [] Assessment/Plan Chronic pain in female pelvis (R10.2: Pelvic and perineal pain) Other chronic pain (G89.29: Other chronic pain) Orders: tramadol, 50 mg = 1 tab(s), Oral, q6hr, PRN for pain, X 3 day(s), # 12 tab(s), Refills(s) 0, Pharmacy: [facility] #[id number], 160, cm, 10/25/23 13:44:00 EDT, Height/Length Dosing, 65, kg, 10/25/23 13:44:00 EDT, Weight Dosing tramadol, 50 mg = 1 tab(s), Oral, q6hr, PRN for pain, X 3 day(s), # 12 tab(s), Refills(s) 0, Pharmacy: [id number], 160, cm, 10/25/23 13:44:00 EDT, Height/Length Dosing, 65, kg, 10/25/23 13:44:00 EDT, Weight Dosing Disposition Plan Patient Discharge Condition Stable Discharge Disposition To home Discharge Prescription List Prescriptions traMADOL 50 mg Tab, 50 mg= 1 tab(s), Oral, q6hr, PRN traMADOL 50 mg Tab, 50 mg= 1 tab(s), Oral, q6hr, PRN Follow-up With When Contact Information Lorri Ireland In 3 days [address] [facility], [address] [place] [address]- Business (1) Additional Instructions: Patient Education Chronic Pain, Adult Attestation Patient seen and evaluated by the physician orthotics assistant. Attending physician was present in the emergency department and supervised care. This visit was performed by both the physician and an APC. I performed all aspects of the MDM as documented. This report was transcribed using voice recognition software. Every effort was made to ensure accuracy, however, inadvertently computerized printer slotter helper mistakes may be present. Appropriate healthcare PPE was used in evaluating this patient. The patient was placed in a mask. The healthcare provider was wearing mask, gloves, and utilizing proper hand hygiene. All equipment was properly cleansed. I performed a substantive part of the MDM during the patient?s E/M visit. I personally made or approved the documented management plan and acknowledge its risk of complications. (Independen (more content not included)... Normal [facility] Comment on above: Result Comment: Elec tronically Signed By: Ulisses Mckinney PA-C\.br\Date and Time Signed: 10/25/23 15:22 EDT\.br\Electronically Co-Signed By: Darren Lomax DO\.br\Date and Time Co-Signed: 10/25/23 15:24 EDT ED Patient Summaryon 024 ED Patient Summary ED Patient Summary [facility] [address], [place] [id number] Patient Discharge Instructions Person Information Name: ALEJANDRA REAL Age: 27 Years Arrival Date: 10/25/2023 13:28:13 Discharge Diagnosis: Chronic pain in female pelvis; Other chronic pain Primary Care Physician: Lorri Ireland CNP Provider Information Primary Provider: Draren Lomax DO [employer] Innkeeper:None The exam and treatment you received in the Emergency Department were for an urgent problem and are not intended as complete care. It is important that you follow up with a doctor, nurse practitioner, or physician?s orthotics assistant for ongoing care. If your symptoms become worse or you do not improve as expected and you are unable to reach your usual health care provider, you should return to the Emergency Department. We are available 24 hours a day. ALEJANDRA REAL has been given the following list of patient education materials, prescriptions and follow-up instructions: Follow-up Instructions: With: Address: When: Lorri Beka [address] [place] [address], [address] [place] [id number] [employer] (1) In 3 days In the event that this physician does not participate in your insurance network, please consult with your insurance company to find a nearby participating provider. Patient Education Materials: Chronic Pain, Adult A MESSAGE TO ALL PATIENTS REGARDING OPIOIDS PRESCRIPTION OPIOIDS: WHAT YOU NEED TO KNOW Prescription opioids can be used to help relieve jpmihgzj-gt-rvzskz pain and are often prescribed following a surgery or injury, or for certain health conditions. These medications can be an important part of the treatment but also come with serious risks. It is important to work with your healthcare provider to make sure you are getting the safest, most effective care. WHAT ARE THE RISKS AND SIDE EFFECTS OF OPIOID USE? Prescription opioids carry serious risks of addiction and overdose, especially with prolonged use. An opioid overdose, often marked by slowed breathing, can cause sudden . The use of prescription opioids can have a number of side effects as well, even when taken as directed: ? Tolerance?meaning you might need to take more of the medication for the same pain relief ? Physical dependence?meaning you have symptoms of withdrawal when a medication is stopped ? Increased sensitivity to pain ? Constipation ? Nausea, vomiting, and dry mouth ? Sleepiness and dizziness ? Confusion ? Depression ? Low levels of testosterone that can result in lower sex drive, energy, and strength ? Itching and sweating RISKS ARE GREATER WITH: ? History of drug misuse, substance use disorder, or overdose ? Mental health conditions (such as depression or anxiety) ? Sleep apnea ? Older age (65 years and older) ? Avoid alcohol while taking prescription opioids. Also, unless specifically advised by your health care provider, medications to avoid include: ? Benzodiazepines (such as Xanax or Valium) ? Muscle relaxants (such as Soma or Flexeril) ? Hypnotics (such as Ambien or Lunesta) ? Other prescription opioids KNOW YOUR OPTIONS Talk to your health care provider about ways to manage your pain that don?t involve prescription opioids. Some of these options may actually work better and have fewer risks and side effects. Options may include: ? Pain relievers such as acetaminophen, ibuprofen, and naproxen ? Some medication that are also used for depression or seizures ? Physical therapy and exercise ? Cognitive behavioral therapy, a psychological, goal-directed approach, in which patients learn how to modify physical, behavioral, and emotional triggers of pain and stress. IF YOU ARE PRESCRIBED OPIOIDS FOR PAIN: ? Never take opioids in greater amounts or more often than prescribed. ? Follow up with your primary health care provider. o Work together to create a plan on how to manage your pain. o Talk about ways to help manage your pain that don?t involve prescription opioids. o Talk about any and all concerns and side effects. ? Help prevent misuse and abuse o Never sell or share prescription opioids. o Never use another person?s prescription opioids. ? Store prescription opioids in a secure place and out of reach of others (this may include visitors, children, friends, and family). ? Safely dispose of unused prescription opioids: Find your community drug take-back program or your pharmacy mail-back program, or flush them down the toilet, following guidance from the Food and Drug Administration (www.fda.gov/Drugs/Re sourcesForYou). ? Visit www.cdc.gov/drugoverd ose to learn about the risks of opioids abuse and overdose. ? If you believe you may be struggling with addiction, tell your health vocational childcare teacher and ask for guidance or call [facility] National Helpline a (more content not included)... [facility] ED Note-Physicianon 10-24-19 ED Note-Physician ED Note-Physician Basic Information Time Seen: Juancho Colón PA-C. 10/21/2023 18:17 Chief Complaint pelvic pain started this morning. sees Dr. Gooden on 11/02 for follow up. burning with urination and back pain, nausea. History of Present Illness Patient is a 27-year-old female presents today for reevaluation of her left side greater than right side lower abdominal pain. She has known pelvic congestion syndrome and is post to have surgery with Dr. Gooden in early October. Her follow-up with him is on 11/03/2023. She is having her same normal symptoms that she normally has with some nausea and crampy abdominal pain in the lower pelvic region. There is occasional back pain with feels today she does have some pain in her lower back. She denies any body aches, fevers, chills, vomiting, diarrhea, stool changes. Denies any new symptoms aside from mild dysuria which is intermittent with her crampy abdominal pain. Review of Systems No other aggravating or relieving factors no other associated symptoms no other prior treatments or complaints. Family: Reviewed and noncontributory Social: lives at home Review of systems negative unless otherwise specified in the HPI. Physical Exam Vitals & Measurements T: 36.8 ?C(Oral) HR: 64(Peripheral) RR: 18 BP: 133/66 SpO2: 98% HT: 160 cm WT: 65 kg BMI: 25.39 General: The patient appears well and in no apparent distress. Patient is resting comfortably on cart. Skin: Warm, dry, no pallor noted. Head: Normocephalic, atraumatic Neck: No JVD Eye: PERRLA, EOMI ENT: Moist mucus membranes Cardiovascular: Regular rate and rhythm. Normal peripheral perfusion Respiratory: CTA bilaterally. No respiratory distress no accessory muscle use no obvious audible wheezing Chest Wall: no deformity Musculoskeletal: normal ROM, no deformity, no swelling GI: Soft no obvious distention. No rebound or rigidity. No guarding. No tenderness. Neurological: A&O moves all extremities equal strength and symmetry Psychiatric: Cooperative and appropriate Medical Decision Making Patient is a 27-year-old female who presents today for reevaluation of her left-sided lower abdominal pain. She has been following with Dr. Gooden and is pending surgery for her known pelvic congestion syndrome. Her exam is relatively unremarkable and unchanged from her usual state. She has not seen a pain management doctor and has never been referred to a pain clinic prior. Given this we will provide her with a referral to Dr. Ambrocio with pain management through [facility] for further evaluation and management and possible chronic pain medication given her chronic pelvic congestion syndrome. We discussed this at length and she is agreeable to this. I will provide her with one dose of tramadol 50 mg in the ED. Will also send her home with a couple day of tramadol dose to get her through to see the pain management doctor. Return to ED precautions were reviewed with the patient at length. Assessment/Plan 1. Chronic pain disorder (G89.4: Chronic pain syndrome) 2. Pelvic congestion syndrome (N94.89: Other specified conditions associated with female genital organs and menstrual cycle) Orders: tramadol, 50 mg = 1 tab(s), Oral, q6hr, X 3 day(s), # 12 tab(s), Refills(s) 0, Pharmacy: [facility] #[id number], 160, cm, 10/21/23 18:20:00 EDT, Height/Length Dosing, 65, kg, 10/21/23 18:20:00 EDT, Weight Dosing tramadol, 50 mg = 1 tab(s), Tab, Oral, Once, Stop date 10/21/23 19:16:00 EDT, STAT, Start date 10/21/23 19:16:00 EDT, 10/21/23 19:16:00 EDT U Beta Hcg Qual Medications Administered Given traMADOL 50 mg Tab, 50 mg, Oral Disposition Plan Patient Discharge Condition Stable Discharge Disposition Home Discharge Prescription List Prescriptions traMADOL 50 mg Tab, 50 mg= 1 tab(s), Oral, q6hr Follow-up With When Contact Information Cristóbal Darwin In 3 days 10/24/2023 EDT [address] [place] [address] [facility] (1) Additional Instructions: Pain Clinic: Marshal [phone] In 3 days 10/24/2023 EDT Additional Instructions: Lorri Ireland In 3 days [address] [facility], [address] [place] [address]- [facility] (1) Additional Instructions: Patient Education Pelvic Pain, Female Attestation Patient seen and evaluated by the physician orthotics assistant. Attending physician was present in the emergency department and supervised care. This visit was performed by both the physician and an APC. I performed all aspects of the MDM as documented. This report was transcribed using voice recognition software. Every effort was made to ensure accuracy, however, inadvertently computerized printer slotter helper mistakes may be present. Appropriate healthcare PPE was used in evaluating this patient. The patient was placed in a mask. The healthcare provider was wearing mask, gloves, and utilizing proper hand hygiene. All equipment was properly cleansed. I performed a substantive part of the MDM during the patient?s E/M visit. I pers (more content not included)... [facility] Comment on above: Result Comment: Elec tronically Signed By: Juancho Coóln PA-C\.br\Date and Time Signed: 10/21/23 20:37 EDT\.br\Electronically Co-Signed By: Justo Arias DO\.br\Date and Time Co-Signed: 10/24/23 07:16 EDT Coding Summary.on 10-22-2023 Coding Summary. KGOREonj48AZr7zCp+PG h lYWQ+NI2QABQiR98bvJWc tA4nG9CWBFmTFfwdKEQAB UqNAuVwmmPzGW3edVItFA Ju IC8+EV9xYAHlGoifkHRfb 8A3eCB7G71utf3aHBbnbH A5QBDuDqEaclpor9bcoPc 6IDcuNmluOyBt WLXiaA53FVR2tQ66Eb58h WGtaGEmw2gvtBz5HwNzRC AkZKT0yOmnEGeaf8BdIWW nT67xtCQbd4A5 AEGkjQypdQNrRdFvqYH0d T3uLQctravzr8qbtjnvJq r4oi69qJFxv3A6uHF3T0V ooaG9GQFpaGBq MeqgyESYyY7wfsbae3jjb ufnWwXiXWApWEj4UGt9LO PriBiqZdMaJG09AJH6IUE hucOxA3XsCEVf bRtpKjY8o9R9Ov5HD4QIL fixE0OSURGUSMaznUU+PC 48uf19F5AaCiiyUuc8COW gZKV2pFK3vD4x AORqDMmhm5S1cCB5G2Ooz tPrxe9vt5bxTLFbEBstS0 4mhTGvd1E1BBGudDZ1QNC jmEepIcMtgC64 Oyc+CEGwwDrcr9FbJfeca 8tol2qekZt7EhpmZIYiyu UbrQrkJJR7i5SeFf2tNBX zhNI7xJN6jK2m AdMwKeM1QTayT780IqNyz IViZbieQ94lW3RnnKN+PH UlRff2VRUhlFaiBY7oV0N hZGRpbmctbGVm pUhiCE4aGLJtzesxKNYop F0qSAShX8b3RiOzMoX0ND cvZ4KoMVXfrzddRk99lW6 bDxNlZqZ2EXhp R5IslqM2BOEhxYFlLKxkZ IW4S95up4U1VXItOIDaSO V7pBQ3tP3shSshngtahMI mdDsgdmVydGlj LXgoVJmdO623YAPqsHomL kNvZGluZyBEYXRlOiAgMD YvMjYvMjAyNDwvdGQ+PHR yUCQ9cDxwLATm gNMcYMynYb9nyQqgtMpeF K4uXRSjnpfqXTJsqX2uLY HezPBmkMsuDQ8dDOQvjih qb033SyAcRJQ9 EQWcqALkT6IodS3vFvHjL FBjUHCiD2EwxGScFYpbB9 43VYyzRsB8IJHhivRyE0W sLWFsaWduOiB0 n6D0Yu0Ge1ZvpxxiI0Jya HCkHiAyWjltPTk5J6UuPp wvdHI+RZ43JIMlCM93XDr 0VBF7fTbjGUdh AWRuD0UlkX1dFnXmEFTeE GRkOyc+PHRhYmxlIHdpZH RoPScxMDAlJyBzdHlsZT0 nEr2oTKSiQGMi gFtgpBYgKzGra4xhJOOgQ QvuQE5bkQbyD6MktNK8SS Wxc3p1Pu61A26eD8CwoGV +MKPviSW5dQA6 xV1wVuUoFxK8MRenP866E wJfmFVpPgvxk8qkx8dmlL u8RpJ1OYYfmsFjoQozWYI 9f2BhQu04E95s IHdpZHRoPSIxNSUiIHZhb Vgjgs9ruP7zSk2+PGNvbC A6tBO4bU0iIzWhSrI9ULo nQ899DoBqtQBk Ybfxj4prd8ppaLc3OmUvS BLqqrCwcXrhMVG2r4VxIf 98C7GcjVnyn6SzPjc9iu8 8uWMjj6Q7oNW6 O1NtMFVpbasjfCTzjOoeV U8xSQZbprqqHLVxcT6eXR MuQ2v8XwMlDqS5GQxdQ4M fbcR2AOEiyUCi EVIniJWMgC3iqwiom6ihx hcbGcNvSGKsHJn5JNj4WB LarRhcGmZeBNV0KiJ6FFF 5eSQxeD3opMlk zbxojV9lDil+SRD5vEYdk VBEYP0nFgeopUV+PHRkIH Y4iSqtZDjsCYHsuV8xYIB uV2p2HyIvCiA6 PTmrQ9WdqyZ1HGUyaLBmJ IVyrDFPvA3uyyoei8gnom jdPfQkJRZxSLf8CIl1UZR saWduOiBsZWZ0 DsY8ZSZ9lJLmmH8yhCboe sujtP5rMmr+QmlydGggRG I6OKp8Y7FoGjx7TOSccUy gQY0tmJEeBWux Ua3olRaceXjeYE0fCMBzi xrxc901NgMtt3auVUBwcD NfTUypWSO2O33bt4G6RNY oPILuRRN8gLF9 pP8ewPktzixzbUAqpJejx xNtzOlnLNmrDMnqU899VQ XsfBheVuCyPJg3B4PuTfq 4PHTicBmeHQ0u wISbMKavDa0fxXrixMgoT S0zMOYknjvmq995FyKuy6 duEITodRUuEVhlGKU2X88 cz3D9ZATtCHYg LYM4qUO2lG3qcUsatnldk GVmdDsgdmVydGljYWwtYW vtG041WMAuqAmkBxLvqNu 7P6FnUbz4JYEm hYlrPQ0gyTLtPBxvKe7um TebcHnbLK5oQFRnhmgak1 27KoQsc2ylUISplJIhFWp kHVQ3Q44vb5P2 WPVvBCJoKFZ7pMP4jL4jy GlnbjogbGVmdDsgdmVydG poKAnrJGgdB694VXAhdGj nPlBhdGllbnQg KFqxCZs3D0ChLwhxjXS+P A91DGHfFW05gQBjfAQne9 urcSc2KmHnPGEzAWS9jNh tYNdvs8DbKIEl H70heNJgf0Q1HRXgkQuzj VDfQnEwmBA4rC9eAGzshb sdx2wzvbxoLcjki2gkao7 2vR58N07lKJsq ZHRoPSIzMCUiIHZhbGlnb h6ybV9qHt6+JIQljGJ7mU S9dX4lNKRhScQ6QQobJ04 9InRvcCIvPjxj x2sqa5oqbTa6OuG3WXXqv tUyhTibMHQ2d5QyVv12M2 9sIHdpZHRoPSIyMCUiIHZ cqQvqfc9nyS6c Ii8+QIVinLP0kSJ0lE7kV mKuMuW9FZnrS441YtSygZ QkKdpmW02pN0EiwAX+PHR jVjr5RBMkzOfo PE7xaKViIQtjQl9gMHP6Y tIgYeCkODtmK9YcVCIzlf ddbqxdbPB9ZLGuOMTgmO4 0Yu6odExsLVZu nQSVfY8ormqsv8yyedmvW lZdZPUbJHk9PCj9AGHntX vbSyShPKC6WkG5FOB2vWP osT5gfHvjcrqm uZ2kX6EuJJWxnaksVi29r Q7fVxZlFfS2FJscKyp+Qk NIE2LSGDYPK24MFCDKJO0 0FO06dCQcq5I5 jMD4U0BqYOJcolbpkmmup RM9MGZkFAWluE66fELdUO kvCj0xw4H7a499HHPtSHW egT78Bb6cfHrz WEPnaIKGsI6bzwutv3hvk edpBbIbTXHvNVw9ZQk1YA UrwJzpQyZbRMM5PlK8HKO 7uOPurU0uvKyl tgorhI3tNnm+MDcvMDgvM Ha2DFbgtQG+TAPlQMF3mU oeIFsnBONtoJ7xHIYsY0m 0MuUiReE7WOla E7LmYYCuonnsQt69lB0aF jJiIpL9NDcjS5RtliL2TP SslSDlYRnwCZC2O21ta3H 5AYOaXCHtEIX8 mFD2wR7dlXdgfzpgmUFcd DsgdmVydGljYWwtYWxpZ2 24XICuxKbvOaU5DBimFSP nCH15PT04eERi b8F2cWJ7B1YjSTPnmikxf uhbeMQ1YTXvNSEvaW12zE YaDSwvBn3it3N7f857CZX nFQBrzL00Ds5e tYhoGJNqoMTOfW4gczpcc 9trwneeDkVfVVUePKm6TG d7NITayZqpPdAtSWE8ChV 8VTG0bGUgfV6f lLubsosxrM6xJyd+RmVtY OvjJK05HP18kIMce6U9uB S7I8JnAJDuiiwerzbwuZE 4RHGfGPArrS91 hEQyFFtjAt0la5Y3l600V ATfKJDjfX47Zj1kzMgfFU BuhAEOrD4gnxqto7drnot gIzAwMDAwMDt0 IAf9MAXpdHswOwPlDIK0E bH8LSS4bQGgfE2fzIvlro tedK3oHba+BK5ikohozfL 4QN19FE89S9Bx PjwvdGFibGU+PHRhYmxlI HdpZHRoPScxMDAlJyBzdH ntAI9qPh3uXRDxHKCywZg fbZFoNbQcg5mi DUFmUTbzUI0owEziL3Ury OK5CGPrv3n7Wx82L80vC0 JvdXA+ESWrtWC3tEE8qA9 iXmOfGmC0SGvz N497JaTvwOJuNzyuz5xnm 8azxTv8XtGiCQMgfqLhiS vdGST0b6EyJf45H77lIVz pZHRoPSIyMCUi ZMLopBimne8cvN5tRr4+P MIycFQ1nAT4hF0lLfBoMt D5GRkwE164UdCnoXUkBxt hL15iJ8QquML+ XGHkOdx5ACVxrYybSA0yl QDsLSqqHd8yDMV5EpFcEy MyIAfcL6ZbCNTtmykgwkp kqIR7NUKvQCUw mX51Ev3csGbfDs7nSJGfA HV4NOPckIJeX9XejM4bMe SiPRWuAWQfX9LnlHCaUDr sC840OPqpRiK3 KFUstuGbR9EjVIQfuPlpD hN7o2H0Nk1QoXuqkHRaIH 8gCbJpPGa5M0WxRsk5QZA fvJhgGF2bgUMx TJnjHb4qnChvvCiyGU7nY JSqvobac634GeWqg9ecUM GbkAJdZFpnKXP6X96cq8X 3IGWwNZIoRWE9 kIA2bF4aiWyttskgsZMmt DsgdmVydGljYWwtYWxpZ2 78DZTmaUkzBkFKYnk2E6C zRvf9JHMulWox GI8qoSNzXZxlNk0ibGicu ZltGV0uKMGipiohm980Jl Jvv0edFIFwpZMmKDanOPC 4J13bl0C8JAOn HCVqCSH4jVJ7zT5drNypt jogbGVmdDsgdmVydGljYW ntKAsyI857NVOqhLevPu4 GDyi1B0IgJxf0 WGTxfCuuEW9ouHPcYZlcZ m6gpEnypSgiMR3cMJEylg flk807TqIov5bjSWKfmIH xOTeuIOZ6X06s z8F0QCKrHPIaNPL0gPQ1o I6wnUbwkykqmEMncYgyfg WpxDapVXppUBcrD366PWN vcDsnPlBheWVy OjwvdGQ+CD82bc93M7HxU yytOlw7YDDbYYR9wKO5oL 1eJWWfASejk6U0kJE3X6W bbdYovc6hb7tb UEDeOKefY29kp (more content not included)... [facility] Consent for Treatmenton 09-27 Consent for Treatment [id number] .[id number] [facility] Discharge Instructionson Discharge Instructions [id number]# 1.00TIFF [facility] ED Clinical Summaryon 2023 ED Clinical Summary [place] [id number] ED Clinical Summary Person Information Name: ALEJANDRA REAL [facility] Age: 27 Years : 1995 Sex: Female Language: Uruguayan PCP: Lorri Ireland CNP Marital Status: Single Phone: [phone] Visit Id: Visit Reason: Nausea; Back pain; Dysuria; PELVIC PAIN,BACK PAIN, GAITAN WHEN SHE URINATES Speciality: Acuity: 4 Enc Type: Emergency Med Service: Emergency Arrival: 10/21/2023 18:13:24 Discharge: 10/21/2023 20:44:27 LOS: 000 02:31 Checkin: 10/21/2023 18:13:24 Checkout: 10/21/2023 20:44:27 Dispo Type: Home (Routine DC) EVENTS: Event Name Event Status Request Date/Time Start Date/Time Complete Date/Time Arrive Complete 10/21/2023 18:13:24 10/21/2023 18:13:24 10/21/2023 18:13:24 Document Home Meds Request 10/21/2023 18:13:24 Triage Complete 10/21/2023 18:13:24 10/21/2023 18:20:39 10/21/2023 18:20:39 Bed Assign Complete 10/21/2023 18:16:15 10/21/2023 18:16:15 10/21/2023 18:16:15 Dr Exam Complete 10/21/2023 18:16:15 10/21/2023 18:17:56 10/21/2023 18:17:56 RN Exam Complete 10/21/2023 18:16:15 10/21/2023 18:58:51 10/21/2023 18:58:51 Registration Complete 10/21/2023 18:17:33 10/21/2023 18:17:33 10/21/2023 18:17:33 Reg Complete Request 10/21/2023 18:17:33 Reg Bed Request Complete 10/21/2023 18:17:33 10/21/2023 18:17:33 10/21/2023 18:17:33 Registration Request 10/21/2023 18:17:56 Dr Exam Complete 10/21/2023 18:20:48 10/21/2023 18:20:48 10/21/2023 18:20:48 Pending Labs Complete 10/21/2023 18:25:28 10/21/2023 20:24:10 Pending Labs Complete 10/21/2023 18:28:59 10/21/2023 18:42:41 Lab Complete 10/21/2023 18:28:59 10/21/2023 18:42:41 Urine Collect Complete 10/21/2023 18:28:59 10/21/2023 18:42:41 Meds Admin Complete 10/21/2023 19:16:23 10/21/2023 20:36:10 Discharge Complete 10/21/2023 20:26:45 10/21/2023 20:44:31 10/21/2023 20:44:31 Transfer Complete 10/21/2023 20:44:31 10/21/2023 20:44:31 10/21/2023 20:44:31 ADDRESS: [address] [place] [address] [address] [facility] [place] [phone] PHYS DOC NOTES: MEDICAL INFORMATION: Prescriptions Given: Medications to Continue Taking That Have Changed [id number], [address] [place], [place] [id number], [phone] START: tramadol (traMADOL 50 mg Tab) 1 Tablets By Mouth every 6 hours for 3 Days. Refills: 0. Other Medications START: tramadol (traMADOL 50 mg Tab) 1 Tablets By Mouth every 6 hours as needed for pain for 3 Days. Refills: 0. START: tramadol (traMADOL 50 mg Tab) 1 Tablets By Mouth every 8 hours as needed as needed for pain. Refills: 0. START: tramadol (traMADOL 50 mg Tab) 1 Tablets By Mouth every 6 hours as needed as needed for pain. Refills: 0. Medications to Continue with No Changes Other Medications dicyclomine (Bentyl 10 mg Cap) 1 Capsules By Mouth 4 times a day as needed Other (see comment). For abdominal cramping. Refills: 0. naproxen (Naprosyn 500 mg Tab) 1 Tablets By Mouth 2 times a day. Refills: 0. ondansetron (Zofran ODT 4 mg Tab-Dis) 1 Tablets By Mouth 3 times a day. Refills: 0. ondansetron (Zofran ODT 4 mg Tab-Dis) 1 Tablets By Mouth every 8 hours as needed Nausea/Vomiting. Refills: 0. PATIENT EDUCATION INFORMATION: Instructions: Pelvic Pain, Female Follow up: With: Address: When: Cristóbal Granados [address] [place] [address] [facility] () In 3 days 10/24/2023 With: Address: When: Pain Clinic: [facility] [phone] In 3 days 10/24/2023 With: Address: When: Lorri Ireland [address] [place] [address], [facility], [address] [place] [address] Business (1) In 3 days DIAGNOSIS: 1:Chronic pain disorder; 2:Pelvic congestion syndrome [facility] ED Patient Education Noteon 10-21-2023 ED Patient Education Note Obstetrics and Gynecology Pelvic Pain, Female Pelvic pain is pain in your lower abdomen, below your belly button and between your hips. The pain may start suddenly (be acute), keep coming back (be recurring), or last a long time (become chronic). Pelvic pain that lasts longer than 6 months is considered chronic. Pelvic pain may affect your: ? Reproductive organs. ? Urinary system. ? Digestive tract. ? Musculoskeletal system. There are many potential causes of pelvic pain. Sometimes, the pain can be a result of digestive or urinary conditions, strained muscles or ligaments, or reproductive conditions. Sometimes the cause of pelvic pain is not known. Follow these instructions at home: ? Take mjqs-jrz-hmmoojq and prescription medicines only as told by your health care provider. ? Rest as told by your health care provider. ? Do not have sex if it hurts. ? Keep a journal of your pelvic pain. Write down: ? When the pain started. ? Where the pain is located. ? What seems to make the pain better or worse, such as food or your monthly period (menstrual cycle). ? Any symptoms you have along with the pain. ? Keep all follow-up visits. This is important. Contact a health care provider if: ? Medicine does not help your pain, or your pain comes back. ? You have new symptoms. ? You have abnormal vaginal discharge or bleeding, including bleeding after menopause. ? You have a fever or chills. ? You are constipated. ? You have blood in your urine or stool (feces). ? You have foul-smelling urine. ? You feel weak or light-headed. Get help right away if: ? You have sudden severe pain. ? Your pain gets steadily worse. ? You have severe pain along with fever, nausea, vomiting, or excessive sweating. ? You lose consciousness. These symptoms may represent a serious problem that is an emergency. Do not wait to see if the symptoms will go away. Get medical help right away. Call your local emergency services (911 in the [place] Do not drive yourself to the hospital. Summary ? Pelvic pain is pain in your lower abdomen, below your belly button and between your hips. ? There are many potential causes of pelvic pain. ? Keep a journal of your pelvic pain. This information is not intended to replace advice given to you by your health care provider. Make sure you discuss any questions you have with your health care provider. Document Revised: 08/21/2021 Document Reviewed: 08/21/2021 Elsevier Patient Education ? 2022 [employer] [facility] ED Patient Summaryon 024 ED Patient Summary [address] [address] Patient Discharge Instructions Person Information Name: ALEJANDRA REAL Age: 27 Years Arrival Date: 10/21/2023 18:13:24 Discharge Diagnosis: 1:Chronic pain disorder; 2:Pelvic congestion syndrome Primary Care Physician: Lrori Ireland CNP Provider Information Primary Provider: Justo Arias DO [employer] Innkeeper:Juancho Colón PA-C. The exam and treatment you received in the Emergency Department were for an urgent problem and are not intended as complete care. It is important that you follow up with a doctor, nurse practitioner, or physician?s orthotics assistant for ongoing care. If your symptoms become worse or you do not improve as expected and you are unable to reach your usual health care provider, you should return to the Emergency Department. We are available 24 hours a day. ALEJANDRA REAL has been given the following list of patient education materials, prescriptions and follow-up instructions: Follow-up Instructions: With: Address: When: Cristóbal Granados [address] [place] [address] [facility] (1) In 3 days 10/24/2023 With: Address: When: Pain Clinic: [facility] [phone] In 3 days 10/24/2023 With: Address: When: Lorri Ireland [address] [place] [address], [address] [place] [address] Business (1) In 3 days In the event that this physician does not participate in your insurance network, please consult with your insurance company to find a nearby participating provider. Patient Education Materials: Pelvic Pain, Female A MESSAGE TO ALL PATIENTS REGARDING OPIOIDS PRESCRIPTION OPIOIDS: WHAT YOU NEED TO KNOW Prescription opioids can be used to help relieve [id number] pain and are often prescribed following a surgery or injury, or for certain health conditions. These medications can be an important part of the treatment but also come with serious risks. It is important to work with your healthcare provider to make sure you are getting the safest, most effective care. WHAT ARE THE RISKS AND SIDE EFFECTS OF OPIOID USE? Prescription opioids carry serious risks of addiction and overdose, especially with prolonged use. An opioid overdose, often marked by slowed breathing, can cause sudden . The use of prescription opioids can have a number of side effects as well, even when taken as directed: ? Tolerance?meaning you might need to take more of the medication for the same pain relief ? Physical dependence?meaning you have symptoms of withdrawal when a medication is stopped ? Increased sensitivity to pain ? Constipation ? Nausea, vomiting, and dry mouth ? Sleepiness and dizziness ? Confusion ? Depression ? Low levels of testosterone that can result in lower sex drive, energy, and strength ? Itching and sweating RISKS ARE GREATER WITH: ? History of drug misuse, substance use disorder, or overdose ? Mental health conditions (such as depression or anxiety) ? Sleep apnea ? Older age (65 years and older) ? Avoid alcohol while taking prescription opioids. Also, unless specifically advised by your health care provider, medications to avoid include: ? Benzodiazepines (such as Xanax or Valium) ? Muscle relaxants (such as Soma or Flexeril) ? Hypnotics (such as Ambien or Lunesta) ? Other prescription opioids KNOW YOUR OPTIONS Talk to your health care provider about ways to manage your pain that don?t involve prescription opioids. Some of these options may actually work better and have fewer risks and side effects. Options may include: ? Pain relievers such as acetaminophen, ibuprofen, and naproxen ? Some medication that are also used for depression or seizures ? Physical therapy and exercise ? Cognitive behavioral therapy, a psychological, goal-directed approach, in which patients learn how to modify physical, behavioral, and emotional triggers of pain and stress. IF YOU ARE PRESCRIBED OPIOIDS FOR PAIN: ? Never take opioids in greater amounts or more often than prescribed. ? Follow up with your primary health care provider. o Work together to create a plan on how to manage your pain. o Talk about ways to help manage your pain that don?t involve prescription opioids. o Talk about any and all concerns and side effects. ? Help prevent misuse and abuse o Never sell or share prescription opioids. o Never use another person?s prescription opioids. ? Store prescription opioids in a secure place and out of reach of others (this may include visitors, children, friends, and family). ? Safely dispose of unused prescription opioids: Find your community drug take-back program or your pharmacy mail-back program, or flush them down the toilet, following guidance from the Food and Drug Administration (www.fda.gov/Drugs/Re sourcesForYou). ? Visit www.cdc.gov/drugoverd o (more content not included)... Normal [facility] SEROLOGYOrdered By: Azam Cloud urgeon on 10-21-2023 HCG.beta subunit (U) [Moles/Vol] Negative Normal [facility] [place] BetaHcg Qualon 10-21-2023 HCG.beta subunit (U) [Moles/Vol] Negative Normal [facility] Comment on above: Performed By: #### 2 [id number] #### [facility] [address] [place] [address] UA with Cult Rflxon 10-21-19 24 Bilirubin Ql (U) Negative Normal Negative [facility] Comment on above: Performed By: #### 4 [id number] ####[facility] [address] [place] [address] Clarity (U) Clear Normal Clear [facility] Comment on above: Performed By: #### 4 [id number] ####[facility] [address] [place] [address] Color (U) Light-Yellow Normal Yellow [facility] Comment on above: Result Comment: Micr oscopic readings are only performed on those samples that meet specific criteria set forth by [facility]. Performed By: #### 4 [id number] ####[facility] [address] [place] [address] Glucose Ql (U) Negative Normal Negative [facility] Comment on above: Performed By: #### 4 [id number] ####[facility] [address] [place] [address] Hemoglobin Auto test strip (U) [Mass/Vol] Negative Normal Negative [facility] Comment on above: Performed By: #### 4 [id number] ####[address] [address] Ketones Auto test strip Ql (U) Negative Normal Negative [facility] Comment on above: Performed By: #### 4 [id number] ####[address] [address] Leukocyte esterase Auto test strip Ql (U) Negative Normal Negative [facility] Comment on above: Performed By: #### 4 [id number] ####[address] [address] Nitrite Auto test strip Ql (U) Negative Normal Negative [facility] Comment on above: Performed By: #### 4 [id number] ####[address] [address] pH (U) 6.5 [pH] Invalid Interpretation Code 5.0-9.0 [facility] Comment on above: Performed By: #### 4 [id number] ####[address] [address] Protein Ql (U) Negative Normal Negative [facility] Comment on above: Performed By: #### 4 [id number] ####[address] [address] Specific gravity (U) [Rel density] 1.014 Invalid Interpretation Code 1.005-1.030 [facility] Comment on above: Performed By: #### 4 [id number] ####[address] [address] Urobilinogen (U) [Mass/Vol] Negative Normal Negative [facility] Comment on above: Performed By: #### 4 [id number] ####[address] [address] Type of Urine collection method Clean Catch Normal [facility] Comment on above: Performed By: #### 4 [id number] ####[facility] [address] [place] [address] URINALYSISOrdered By: SYSTEM SYSTEM on 10-21-2023 Bilirubin Ql (U) Negative Normal Negativemg/ d L [facility] UA Auto SS Clarity (U) Clear (10/21/23 6:29 PM) Normal Clear [facility] UA Auto SS Color (U) Light-Yellow 1 (10/21/23 6:29 PM) Normal Yellow [facility] UA Auto SS Comment on above: Interpretive Data: M icroscopic readings are only performed on those samples that meet specific criteria set forth by [facility]. Glucose Ql (U) Negative Normal Negativemg/d L [facility] UA Auto SS Hemoglobin Auto test strip (U) [Mass/Vol] Negative Normal Negativemg/d L [facility] UA Auto SS Ketones Auto test strip Ql (U) Negative Normal Negativemg/d L [facility] UA Auto SS Leukocyte esterase Auto test strip Ql (U) Negative Normal NegativeLeu/ uL [facility] UA Auto SS Nitrite Auto test strip Ql (U) Negative Normal Negativemg/d L [facility] UA Auto SS pH (U) 6.5 *NA* (10/21/23 6:29 PM) Invalid Interpretation Code 5.0 - 9.0 [facility] UA Auto SS Protein Ql (U) Negative Normal Negativemg/d L [facility] UA Auto SS Specific gravity (U) [Rel density] 1.014 *NA* (10/21/23 6:29 PM) Invalid Interpretation Code 1.005 - 1.030 [facility] UA Auto SS Urobilinogen (U) [Mass/Vol] Negative Normal Negativemg/d L [facility] UA Auto SS URINALYSISOrdered By: Justo contreras on 10-21-2023 UA Spec Desc Clean Catch (10/21/23 6:29 PM) Normal [facility] UA Auto SS Work Phone: Consent for Treatmenton 09-27 Consent for Treatment [id number] .[id number] Normal [facility] Discharge Instructionson Discharge Instructions [id number] .[id number] Normal [facility] ED Clinical Summaryon 2023 ED Clinical Summary [address] [address] ED Clinical Summary Person Information Name: ALEJANDRA REAL Suzi/[place] Age: 27 Years : 1995 Sex: Female Language: Uruguayan PCP: Lorri Ireland CNP Marital Status: Single Phone: [phone] MRN: [id number] Visit Id: Visit Reason: Pelvic pain; PELVIC PAIN Speciality: Acuity: 4 Enc Type: Emergency Med Service: Emergency Arrival: 10/19/2023 12:41:39 Discharge: 10/19/2023 14:02:21 LOS: 000 01:21 Checkin: 10/19/2023 12:41:39 Checkout: 10/19/2023 14:02:21 Dispo Type: Home (Routine DC) EVENTS: Event Name Event Status Request Date/Time Start Date/Time Complete Date/Time Arrive Complete 10/19/2023 12:41:39 10/19/2023 12:41:39 10/19/2023 12:41:39 Document Home Meds Request 10/19/2023 12:41:39 Triage Complete 10/19/2023 12:41:39 10/19/2023 12:58:39 10/19/2023 12:58:39 Registration Complete 10/19/2023 12:47:42 10/19/2023 12:47:42 10/19/2023 12:47:42 Reg Complete Request 10/19/2023 12:47:42 Reg Bed Request Complete 10/19/2023 12:47:42 10/19/2023 12:47:42 10/19/2023 12:47:42 Bed Assign Complete 10/19/2023 13:25:08 10/19/2023 13:25:08 10/19/2023 13:25:08 Dr Exam Complete 10/19/2023 13:25:08 10/19/2023 13:29:12 10/19/2023 13:29:12 RN Exam Complete 10/19/2023 13:25:08 10/19/2023 13:29:39 10/19/2023 13:29:39 Registration Request 10/19/2023 13:29:12 Dr Exam Complete 10/19/2023 13:29:32 10/19/2023 13:29:32 10/19/2023 13:29:32 Discharge Complete 10/19/2023 13:57:07 10/19/2023 14:02:31 10/19/2023 14:02:31 Transfer Complete 10/19/2023 14:02:31 10/19/2023 14:02:31 10/19/2023 14:02:31 ADDRESS: [address] [facility] [phone] PHYS DOC NOTES: MEDICAL INFORMATION: Prescriptions Given: Medications to Continue Taking That Have Changed [facility]/pharmacy #[id number], [address] [place] [id number], [phone] START: ondansetron (Zofran ODT 4 mg Tab-Dis) 1 Tablets By Mouth every 8 hours as needed Nausea/Vomiting. Refills: 0. START: tramadol (traMADOL 50 mg Tab) 1 Tablets By Mouth every 6 hours as needed for pain for 3 Days. Refills: 0. Other Medications START: ondansetron (Zofran ODT 4 mg Tab-Dis) 1 Tablets By Mouth 3 times a day. Refills: 0. START: tramadol (traMADOL 50 mg Tab) 1 Tablets By Mouth every 8 hours as needed as needed for pain. Refills: 0. START: tramadol (traMADOL 50 mg Tab) 1 Tablets By Mouth every 6 hours as needed as needed for pain. Refills: 0. Medications to Continue with No Changes Other Medications albuterol (Albuterol (Eqv-ProAir HFA) 90 mcg/inh inhalation aerosol) Inhalation every 6 hours. dicyclomine (Bentyl 10 mg Cap) 1 Capsules By Mouth 4 times a day as needed Other (see comment). For abdominal cramping. Refills: 0. Misc Prescription (BACLOFEN 10 MG TABLET) 0. multivitamin with iron (Iron 100 Plus) By Mouth every day. naproxen (Naprosyn 500 mg Tab) 1 Tablets By Mouth 2 times a day. Refills: 0. PATIENT EDUCATION INFORMATION: Instructions: Follow up: With: Address: When: Fatoumata Gooden [address] [place] [address] Business (1) In 3 days 10/22/2023 With: Address: When: Lorri Ireland [address] [facility] [place] [address] Business (1) In 3 days DIAGNOSIS: Chronic female pelvic pain; Other chronic pain Normal [facility] ED Note-Physicianon 10-19-19 ED Note-Physician Basic Information Time Seen: Hank LUKE, Ulisses Wright 10/19/2023 13:29 Chief Complaint Pt presents to ED with complaints of increased pelvic pain. Dx with pelvic congestion syndrome and is pending surgery. Pt here for pain management. History of Present Illness A 27-year-old female reports to the emergency department with complaints of increased left-sided pain. Reports that has a history of pelvic congestion syndrome, and is pending surgery with Dr. Gooden at this time. Would like something for pain. Reports that she has been taking Toradol as well as Bentyl, without any improvement of symptoms. States that she just had symptoms for sparingly. Does follow-up with Dr. Gooden this week as well as her PCP. Denies any new symptoms. Denies any urinary symptoms. Review of Systems No other aggravating or relieving factors no other associated symptoms no other prior treatments or complaints. Family: Reviewed and noncontributory Social: lives at home Review of systems negative unless otherwise specified in the HPI. Physical Exam Vitals & Measurements T: 37.1 ?C(Oral) HR: 74(Peripheral) RR: 18 BP: 125/73 SpO2: 94% HT: 160 cm WT: 65 kg BMI: 25.39 General: The patient appears well and in no apparent distress. Patient is resting comfortably in chair. Afebrile Skin: Warm, dry, no pallor noted. Head: Normocephalic, atraumatic Neck: No JVD Eye: PERRLA, EOMI ENT: Moist mucus membranes Cardiovascular: Regular rate normal peripheral perfusion Respiratory: No respiratory distress no accessory muscle use no obvious audible wheezing Chest Wall: no deformity Musculoskeletal: normal ROM, no deformity, no swelling GI: No obvious distention. Soft. Mild tenderness of left lower quadrant noted, with no rebound tenderness or guarding noted. Neurological: A&O moves all extremities equal strength and symmetry Psychiatric: Cooperative and appropriate Medical Decision Making MEDICAL DECISION MAKING Number and Complexity of Problems Differential Diagnosis: [] [facility] Data External documents reviewed: [] My EKG interpretation: [] My CT interpretation: [] My X-ray interpretation: [] My Ultrasound interpretation: [] Decision rules/scores evaluated: [] Discussed with: [] Treatment and Disposition ED Course: 27-year-old female reports to the emergency department chief complaint of abdominal pain. Reports history of pelvic congestion syndrome. Does follow-up with Dr. Gooden and states that her surgery is pending at this time. She denies any new symptoms. Would like something for pain. Will treat chronic pain with tramadol, but discussed she needs to follow-up with her PCP or Dr. Gooden for further evaluation. Discussed return precautions. Follow-up with your primary care provider in 3 to 5 days. If symptoms worsen, do not improve, or new symptoms arise please report back to emergency department for further evaluation. The patient was understanding and agreeable to plan moving forward. Shared decision making: [] Code status: [] Assessment/Plan Chronic female pelvic pain (R10.2: Pelvic and perineal pain) Other chronic pain (G89.29: Other chronic pain) Orders: ondansetron, 4 mg = 1 tab(s), Oral, q8hr, PRN Nausea/Vomiting, # 20 tab(s), Refills(s) 0, Pharmacy: [facility]/pharmacy #[id number], 160, cm, 10/19/23 12:58:00 EDT, Height/Length Dosing, 65, kg, 10/19/23 12:58:00 EDT, Weight Dosing tramadol, 50 mg = 1 tab(s), Oral, q6hr, PRN for pain, X 3 day(s), # 10 tab(s), Refills(s) 0, Pharmacy: [facility]/pharmacy #[id number], 160, cm, 10/19/23 12:58:00 EDT, Height/Length Dosing, 65, kg, 10/19/23 12:58:00 EDT, Weight Dosing Disposition Plan Patient Discharge Condition Stable Discharge Disposition to home Discharge Prescription List Prescriptions traMADOL 50 mg Tab, 50 mg= 1 tab(s), Oral, q6hr, PRN Zofran ODT 4 mg Tab-Dis, 4 mg= 1 tab(s), Oral, q8hr, PRN Follow-up With When Contact Information Fatoumata Gooden In 3 days 10/22/2023 EDT [address] [place] [address]- Business (1) Additional Instructions: Lorri Ireland In 3 days [address] [facility], [address] [place] [address]- Business (1) Additional Instructions: Attestation Patient seen and evaluated by the physician orthotics assistant. Attending physician was present in the emergency department and supervised care. This visit was performed by both the physician and an APC. I performed all aspects of the MDM as documented. This report was transcribed using voice recognition software. Every effort was made to ensure accuracy, however, inadvertently computerized printer slotter helper mistakes may be present. Appropriate healthcare PPE was used in evaluating this patient. The patient was placed in a mask. The healthcare provider was wearing mask, gloves, and utilizing proper hand hygiene. All equipment was properly cleansed. I performed a substantive part of the MDM during the patient?s E/M visit. I personally made or approved the documen (more content not included)... Normal [facility] Comment on above: Result Comment: Elec tronically Signed By: Ulisses Mckinney PA-C\.br\Date and Time Signed: 10/19/23 15:12 EDT\.br\Electronically Co-Signed By: Mary Jane Palm M.D.\.br\Date and Time Co-Signed: 10/19/23 19:47 EDT ED Patient Education Noteon 10-19-2023 ED Patient Education Note Normal [facility] ED Patient Summaryon 024 ED Patient Summary [address] [address] Patient Discharge Instructions Person Information Name: ALEJANDRA REAL Age: 27 Years Arrival Date: 10/19/2023 12:41:39 Discharge Diagnosis: Chronic female pelvic pain; Other chronic pain Primary Care Physician: Lorri Ireland CNP Provider Information Primary Provider: Mary Jane Palm M.D. Advanced Bed And Breakfast Innkeeper:None The exam and treatment you received in the Emergency Department were for an urgent problem and are not intended as complete care. It is important that you follow up with a doctor, nurse practitioner, or physician?s orthotics assistant for ongoing care. If your symptoms become worse or you do not improve as expected and you are unable to reach your usual health care provider, you should return to the Emergency Department. We are available 24 hours a day. ALEJANDRA REAL has been given the following list of patient education materials, prescriptions and follow-up instructions: Follow-up Instructions: With: Address: When: Fatoumata Gooden [address] [place] [address] [facility] (1) In 3 days 10/22/2023 With: Address: When: Lorri Ireland [address] [facility], [address] [place] [id number] [facility] (1) In 3 days In the event that this physician does not participate in your insurance network, please consult with your insurance company to find a nearby participating provider. Patient Education Materials: A MESSAGE TO ALL PATIENTS REGARDING OPIOIDS PRESCRIPTION OPIOIDS: WHAT YOU NEED TO KNOW Prescription opioids can be used to help relieve bmgtyqph-nb-tvhdqt pain and are often prescribed following a surgery or injury, or for certain health conditions. These medications can be an important part of the treatment but also come with serious risks. It is important to work with your healthcare provider to make sure you are getting the safest, most effective care. WHAT ARE THE RISKS AND SIDE EFFECTS OF OPIOID USE? Prescription opioids carry serious risks of addiction and overdose, especially with prolonged use. An opioid overdose, often marked by slowed breathing, can cause sudden . The use of prescription opioids can have a number of side effects as well, even when taken as directed: ? Tolerance?meaning you might need to take more of the medication for the same pain relief ? Physical dependence?meaning you have symptoms of withdrawal when a medication is stopped ? Increased sensitivity to pain ? Constipation ? Nausea, vomiting, and dry mouth ? Sleepiness and dizziness ? Confusion ? Depression ? Low levels of testosterone that can result in lower sex drive, energy, and strength ? Itching and sweating RISKS ARE GREATER WITH: ? History of drug misuse, substance use disorder, or overdose ? Mental health conditions (such as depression or anxiety) ? Sleep apnea ? Older age (65 years and older) ? Avoid alcohol while taking prescription opioids. Also, unless specifically advised by your health care provider, medications to avoid include: ? Benzodiazepines (such as Xanax or Valium) ? Muscle relaxants (such as Soma or Flexeril) ? Hypnotics (such as Ambien or Lunesta) ? Other prescription opioids KNOW YOUR OPTIONS Talk to your health care provider about ways to manage your pain that don?t involve prescription opioids. Some of these options may actually work better and have fewer risks and side effects. Options may include: ? Pain relievers such as acetaminophen, ibuprofen, and naproxen ? Some medication that are also used for depression or seizures ? Physical therapy and exercise ? Cognitive behavioral therapy, a psychological, goal-directed approach, in which patients learn how to modify physical, behavioral, and emotional triggers of pain and stress. IF YOU ARE PRESCRIBED OPIOIDS FOR PAIN: ? Never take opioids in greater amounts or more often than prescribed. ? Follow up with your primary health care provider. o Work together to create a plan on how to manage your pain. o Talk about ways to help manage your pain that don?t involve prescription opioids. o Talk about any and all concerns and side effects. ? Help prevent misuse and abuse o Never sell or share prescription opioids. o Never use another person?s prescription opioids. ? Store prescription opioids in a secure place and out of reach of others (this may include visitors, children, friends, and family). ? Safely dispose of unused prescription opioids: Find your community drug take-back program or your pharmacy mail-back program, or flush them down the toilet, following guidance from the Food and Drug Administration (www.fda.gov/Drugs/Re sourcesForYou). ? Visit www.cdc.gov/drugoverd ose to learn about the risks of opioids abuse and overdose. ? If you believe you may be struggling with addiction, tell your (more content not included)... Normal [facility] ED Note-Physicianon 10-18-19 ED Note-Physician Basic Information Time Seen: Barb LUKE, [place] Gloria 10/17/2023 17:32 Chief Complaint patient presents with chronic pelvic pain. also experiencing pain on left buttock- indentation noted. denies urinary symptoms History of Present Illness Patient is a 27-year-old female with a history of chronic pelvic congestion syndrome who presents with pelvic pain. She states this pain is typical to previous pain. She denies dysuria, hematuria, and vaginal bleeding/discharge, or changes in bowel movements. Patient also complains of an indentation noted on her left lateral gluteus region. Patient states she noticed that the other day for the first time. She denies any trauma to that area. Patient notes mild tenderness surrounding the indent. She denies any known fever/chills or nausea/vomiting. Patient follows with Dr. Gooden for the chronic pelvic congestion syndrome. Patient states she has a surgery scheduled with him in the first week of October. She states she was supposed to have the surgery a couple weeks ago but was unable to due to insurance reasons. Review of Systems A 10 point review of systems is negative except as noted above. Medical and Surgical History: Reviewed and noted Social history: Lives at home Family History: Reviewed. Tobacco: Denies Physical Exam Vitals & Measurements T: 36.5 ?C(Oral) HR: 75(Peripheral) RR: 18 BP: 126/83 SpO2: 100% HT: 160 cm WT: 65 kg BMI: 25.39 General: The patient appears well and in no apparent distress. Patient is resting comfortably on cart. Skin: Warm, dry, no pallor noted. 3 cm x 3 cm circumferential indentation on the left lateral gluteus, no surrounding erythema Head: Normocephalic, atraumatic Cardiovascular: Regular rate normal peripheral perfusion Respiratory: No respiratory distress no accessory muscle use no obvious audible wheezing Musculoskeletal: normal ROM, no deformity, no swelling GI: Soft no obvious distention. No rebound or rigidity. No guarding. No tenderness. Neurological: A&O moves all extremities equal strength and symmetry Psychiatric: Cooperative and appropriate Medical Decision Making Patient is a 27-year-old female with a history of chronic pelvic pain who presents with pelvic pain. She states this pain is typical to her chronic pain. Based on chart review the patient has been seen in the ED 3 times in the past 4 weeks for similar symptoms. Hip x-ray interpreted by myself shows no fracture, dislocation, or other acute abnormalities. Urinalysis is negative. I updated the patient on the results. She will follow-up with Dr. Gooden for further management of care. Patient was advised to return to the ED for worsening symptoms. She was agreeable with the plan and all questions were answered. Assessment/Plan Chronic female pelvic pain (R10.2: Pelvic and perineal pain) Other chronic pain (G89.29: Other chronic pain) Orders: ketorolac, 30 mg = 1 mL, Injection, IntraMuscular, Once, Stop date 10/17/23 18:10:00 EDT, STAT, Start date 10/17/23 18:10:00 EDT, 10/17/23 18:10:00 EDT UA with Cult Rflx XR Hip 2-3 Views Left + Pelvis Medications Administered Given ketorolac 30 mg/mL Inj 1 mL, 30 mg, IntraMuscular Disposition Plan Patient Discharge Condition Stable Discharge Disposition home Discharge Prescription List Prescriptions No active prescription medications Follow-up With When Contact Information Fatoumata Gooden In 3 days 10/20/2023 EDT [address] [place] [address]- Business (1) Additional Instructions: Follow-up with Dr. Gooden for further management of care. Lorri Beka In 3 days 10/20/2023 EDT [address] [facility], [address] [place] [address]- Business (1) Additional Instructions: Patient Education Abdominal Pain, Adult, Mjts-jg-Ncqk Attestation Patient seen and evaluated by the physician orthotics assistant. Attending physician was present in the emergency department and supervised care. This visit was performed by both the physician and an APC. I performed all aspects of the MDM as documented. This report was transcribed using voice recognition software. Every effort was made to ensure accuracy, however, inadvertently computerized printer slotter helper mistakes may be present. Appropriate healthcare PPE was used in evaluating this patient. The patient was placed in a mask. The healthcare provider was wearing mask, gloves, and utilizing proper hand hygiene. All equipment was properly cleansed. I performed a substantive part of the MDM during the patient?s E/M visit. I personally made or approved the documented management plan and acknowledge its risk of complications. (Independent Interpretation) My (EKG/X-Ray/US/CT as applicable) interpretation as above. (Discussion) Management/test interpretation discussed with APC. Problem List/Past Medical History Ongoing Asthma BMI 25.0-25.9,adult Dysuria History of COVID-19 (04-24-2021) Lower abdominal pain Numbness and tingling of leg Right flank pain Right (more content not included)... Normal [facility] Comment on above: Result Comment: Elec tronically Signed By: France Day PA-C\.br\Date and Time Signed: 10/17/23 18:53 EDT\.br\Electronically Co-Signed By: Darren Lomax DO\.br\Date and Time Co-Signed: 10/18/23 10:33 EDT XR Hip 2-3 Views Left + Pelv lluvia 10-18-2023 XR Hip 2-3 Views Left + Pelvis Exam Date/Time: 10/17/2023 18:14 EDT Reason for Exam: Pain, Non Traumatic Report IMPRESSION: NO ACUTE OSSEOUS ABNORMALITY. EXAMINATION: XR Hip 2-3 Views Left + Pelvis HISTORY: Hip pain COMPARISONS: None available TECHNIQUE: Frontal view of the hip and frontal and and lateral views of the hip. FINDINGS: No acute proximal femur fracture. No hip dislocation. Joint space of the hip is maintained. Visualized bones of the pelvis are within normal limits. Soft tissues are within normal limits. Ordering Provider: France Day FINAL REPORT Dictated: 10/18/2023 8:12 am Geovany Mcknight DO Signed (Electronic Signature): 10/18/2023 8:12 am Signed by: Geovany Mcknight DO Transcribed by: FAHAD Technologist: CEFERINO Technical Comments Radiation Dose: Ka,r in mGy = na DAP = na Normal [facility] Consent for Treatmenton 09-27 Consent for Treatment [id number] .00TIFF [facility] Discharge Instructionson Discharge Instructions [id number]# 1.00TIFF [facility] ED Clinical Summaryon 2023 ED Clinical Summary [place] [id number] ED Clinical Summary Person Information Name: ALEJANDRA REAL [facility] Age: 27 Years : 1995 Sex: Female Language: Uruguayan PCP: Lorri Ireland CNP Marital Status: Single Phone: [phone] Visit Id: Visit Reason: Buttock ogsryq-rxjq-xvgrkovn; Pelvic pain; ABD PAIN, BUTTOCK PAIN Speciality: Acuity: 4 Enc Type: Emergency Med Service: Emergency Arrival: 10/17/2023 17:12:33 Discharge: 10/17/2023 18:55:01 LOS: 000 01:43 Checkin: 10/17/2023 17:12:33 Checkout: 10/17/2023 18:55:01 Dispo Type: Home (Routine DC) EVENTS: Event Name Event Status Request Date/Time Start Date/Time Complete Date/Time Arrive Complete 10/17/2023 17:12:33 10/17/2023 17:12:33 10/17/2023 17:12:33 Document Home Meds Request 10/17/2023 17:12:33 Triage Complete 10/17/2023 17:12:33 10/17/2023 17:36:52 10/17/2023 17:36:52 Registration Complete 10/17/2023 17:15:54 10/17/2023 17:15:54 10/17/2023 17:15:54 Reg Complete Request 10/17/2023 17:15:54 Reg Bed Request Complete 10/17/2023 17:15:54 10/17/2023 17:15:54 10/17/2023 17:15:54 Bed Assign Complete 10/17/2023 17:23:39 10/17/2023 17:23:39 10/17/2023 17:23:39 Dr Exam Complete 10/17/2023 17:23:39 10/17/2023 17:32:40 10/17/2023 17:32:40 RN Exam Complete 10/17/2023 17:23:39 10/17/2023 17:38:21 10/17/2023 17:38:21 Registration Request 10/17/2023 17:32:40 X-Ray Complete 10/17/2023 17:58:51 10/17/2023 18:01:25 10/17/2023 18:14:49 Meds Admin Cancel 10/17/2023 18:09:36 10/17/2023 18:10:08 Meds Admin Complete 10/17/2023 18:11:06 10/17/2023 18:28:58 Wet Read Request 10/17/2023 18:14:49 Pending Labs Complete 10/17/2023 18:14:50 10/17/2023 18:36:31 Dr Exam Complete 10/17/2023 18:14:50 10/17/2023 18:14:50 10/17/2023 18:14:50 Discharge Complete 10/17/2023 18:49:39 10/17/2023 18:55:06 10/17/2023 18:55:06 Transfer Complete 10/17/2023 18:55:06 10/17/2023 18:55:06 10/17/2023 18:55:06 ADDRESS: [address] [place] [phone] PHYS DOC NOTES: MEDICAL INFORMATION: Prescriptions Given: Medications to Continue with No Changes Other Medications albuterol (Albuterol (Eqv-ProAir HFA) 90 mcg/inh inhalation aerosol) Inhalation every 6 hours. dicyclomine (Bentyl 10 mg Cap) 1 Capsules By Mouth 4 times a day as needed Other (see comment). For abdominal cramping. Refills: 0. Misc Prescription (BACLOFEN 10 MG TABLET) 0. multivitamin with iron (Iron 100 Plus) By Mouth every day. naproxen (Naprosyn 500 mg Tab) 1 Tablets By Mouth 2 times a day. Refills: 0. ondansetron (Zofran ODT 4 mg Tab-Dis) 1 Tablets By Mouth 3 times a day. Refills: 0. tramadol (traMADOL 50 mg Tab) 1 Tablets By Mouth every 8 hours as needed as needed for pain. Refills: 0. tramadol (traMADOL 50 mg Tab) 1 Tablets By Mouth every 6 hours as needed as needed for pain. Refills: 0. PATIENT EDUCATION INFORMATION: Instructions: Abdominal Pain, Adult, Smfo-ei-Pcts Follow up: With: Address: When: Fatoumata Gooden [address] [place] [id number] [employer] (1) In 3 days 10/20/2023 Comments: Follow-up with Dr. Gooden for further management of care. With: Address: When: Lorri Ireland [address] [place] [address], [facility], [address] [place] [address] Business (1) In 3 days 10/20/2023 DIAGNOSIS: Chronic female pelvic pain; Other chronic pain Normal [facility] ED Note-Physicianon 10-17-19 ED Note-Physician Basic Information Time Seen: Barb LUKE, France Gloria 10/17/2023 17:32 Chief Complaint patient presents with chronic pelvic pain. also experiencing pain on left buttock- indentation noted. denies urinary symptoms Physical Exam Vitals & Measurements T: 36.5 ?C(Oral) HR: 75(Peripheral) RR: 18 BP: 126/83 SpO2: 100% HT: 160 cm WT: 65 kg BMI: 25.39 Assessment/Plan Ordered: XR Hip 2-3 Views Left + Pelvis Disposition Plan Discharge Prescription List Prescriptions No active prescription medications Follow-up No qualifying data available Problem List/Past Medical History Ongoing Asthma BMI 25.0-25.9,adult Dysuria History of COVID-19 (04-24-2021) Lower abdominal pain Numbness and tingling of leg Right flank pain Right lower quadrant pain Smoker Wrist pain Historical Acute low back pain Dental caries Heart murmur Pelvic congestion syndrome Procedure/Surgical History Nasal deviation, 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 Medications Inpatient No active inpatient medications Home Albuterol (Eqv-ProAir HFA) 90 mcg/inh inhalation aerosol, Inhalation, q6hr BACLOFEN 10 MG TABLET, 0 Bentyl 10 mg Cap, 10 mg= 1 cap(s), Oral, QID, PRN Iron 100 Plus, Oral, Daily Naprosyn 500 mg Tab, 500 mg= 1 tab(s), Oral, BID traMADOL 50 mg Tab, 50 mg= 1 tab(s), Oral, q6hr, PRN traMADOL 50 mg Tab, 50 mg= 1 tab(s), Oral, q8hr, PRN Zofran ODT 4 mg Tab-Dis, 4 mg= 1 tab(s), Oral, TID Allergies No Known Allergies Social History Alcohol - Denies Alcohol Use, 05/28/2021 Household alcohol concerns: No., 06/26/2022 Employment/School Unemployed, 05/16/2016 Exercise - Occasional exercise, 08/09/2016 Home/Environment Lives with Children, Significant other. Living situation: Home/Independent. Alcohol abuse in household: No. Substance abuse in household: No. Smoker in household: No. Injuries/Abuse/Neglec t in household: No. Feels unsafe at home: No. Safe place to go: Yes. Agency(s)/Others notified: No. Family/Friends available for support: Yes. Concern for family members at home: No. Major illness in household: No. Financial concerns: No. TV/Computer concerns: No., 08/09/2016 Lives with Significant other. Living situation: Home/Independent. Alcohol abuse in household: No. Substance abuse in household: No. Smoker in household: No. Injuries/Abuse/Neglec t in household: No. Feels unsafe at home: No. Safe place to go: Yes. Agency(s)/Others notified: No. Family/Friends available for support: Yes. Concern for family members at home: No. Major illness in household: No. Financial concerns: No. TV/Computer concerns: No., 07/08/2016 Lives with Father, Mother, Significant other. Living situation: Home/Independent., 05/16/2016 Nutrition/Health Regular, 05/16/2016 Sexual Sexually active: Yes., 08/09/2016 Substance Abuse - Denies Substance Abuse, 06/02/2012 Household substance abuse concerns: No., 06/26/2022 Tobacco - Denies Tobacco Use, 06/02/2012 Never (less than 100 in lifetime) Tobacco Use:. Never Smokeless Tobacco Use:. Household tobacco concerns: No., 09/15/2023 Former vaping or e-cigarette use Smokeless Tobacco Use:., 07/19/2023 Family History Multiple sclerosis: Grandparent. Tourettes disease: Sister. Lab Results No qualifying data available. Diagnostic Results No qualifying data available. Normal [facility] Comment on above: Other Comment: fidelia gamino ED Patient Education Noteon 10-17-2023 ED Patient Education Note Gastroenterology Abdominal Pain, Adult Many things can cause belly (abdominal) pain. Most times, belly pain is not dangerous. Many cases of belly pain can be watched and treated at home. Sometimes, though, belly pain is serious. Your doctor will try to find the cause of your belly pain. Follow these instructions at home: Medicines ? Take zcqd-bqz-inufulr and prescription medicines only as told by your doctor. ? Do not take medicines that help you poop (laxatives) unless told by your doctor. General instructions ? Watch your belly pain for any changes. ? Drink enough fluid to keep your pee (urine) pale yellow. ? Keep all follow-up visits as told by your doctor. This is important. Contact a doctor if: ? Your belly pain changes or gets worse. ? You are not hungry, or you lose weight without trying. ? You are having trouble pooping (constipated) or have watery poop (diarrhea) for more than 2?3 days. ? You have pain when you pee or poop. ? Your belly pain wakes you up at night. ? Your pain gets worse with meals, after eating, or with certain foods. ? You are vomiting and cannot keep anything down. ? You have a fever. ? You have blood in your pee. Get help right away if: ? Your pain does not go away as soon as your doctor says it should. ? You cannot stop vomiting. ? Your pain is only in areas of your belly, such as the right side or the left lower part of the belly. ? You have bloody or black poop, or poop that looks like tar. ? You have very bad pain, cramping, or bloating in your belly. ? You have signs of not having enough fluid or water in your body (dehydration), such as: ? Dark pee, very little pee, or no pee. ? Cracked lips. ? Dry mouth. ? Sunken eyes. ? Sleepiness. ? Weakness. ? You have trouble breathing or chest pain. Summary ? Many cases of belly pain can be watched and treated at home. ? Watch your belly pain for any changes. ? Take ovjq-tqg-clwnoig and prescription medicines only as told by your doctor. ? Contact a doctor if your belly pain changes or gets worse. ? Get help right away if you have very bad pain, cramping, or bloating in your belly. This information is not intended to replace advice given to you by your health care provider. Make sure you discuss any questions you have with your health care provider. Document Revised: 08/23/2019 Document Reviewed: 08/23/2019 Elsevier Patient Education ? 2022 [employer] Normal [facility] ED Patient Summaryon 024 ED Patient Summary [place] [id number] Patient Discharge Instructions Person Information Name: ALEJANDRA REAL Age: 27 Years Arrival Date: 10/17/2023 17:12:33 Discharge Diagnosis: Chronic female pelvic pain; Other chronic pain Primary Care Physician: Lorri Ireland CNP Provider Information Primary Provider: Darren Lomax DO [employer] Innkeeper:France Day PA-C. The exam and treatment you received in the Emergency Department were for an urgent problem and are not intended as complete care. It is important that you follow up with a doctor, nurse practitioner, or physician?s orthotics assistant for ongoing care. If your symptoms become worse or you do not improve as expected and you are unable to reach your usual health care provider, you should return to the Emergency Department. We are available 24 hours a day. ALEJANDRA REAL has been given the following list of patient education materials, prescriptions and follow-up instructions: Follow-up Instructions: With: Address: When: Fatoumata Gooden [address] [id number] [facility] (1) In 3 days 10/20/2023 Comments: Follow-up with Dr. Gooden for further management of care. With: Address: When: Lorri Ireland [address] [facility], [address] [place] [address] [employer] (1) In 3 days 10/20/2023 In the event that this physician does not participate in your insurance network, please consult with your insurance company to find a nearby participating provider. Patient Education Materials: Abdominal Pain, Adult, Zikb-xd-Zemg A MESSAGE TO ALL PATIENTS REGARDING OPIOIDS PRESCRIPTION OPIOIDS: WHAT YOU NEED TO KNOW Prescription opioids can be used to help relieve nyiollcp-cv-kkiztc pain and are often prescribed following a surgery or injury, or for certain health conditions. These medications can be an important part of the treatment but also come with serious risks. It is important to work with your healthcare provider to make sure you are getting the safest, most effective care. WHAT ARE THE RISKS AND SIDE EFFECTS OF OPIOID USE? Prescription opioids carry serious risks of addiction and overdose, especially with prolonged use. An opioid overdose, often marked by slowed breathing, can cause sudden . The use of prescription opioids can have a number of side effects as well, even when taken as directed: ? Tolerance?meaning you might need to take more of the medication for the same pain relief ? Physical dependence?meaning you have symptoms of withdrawal when a medication is stopped ? Increased sensitivity to pain ? Constipation ? Nausea, vomiting, and dry mouth ? Sleepiness and dizziness ? Confusion ? Depression ? Low levels of testosterone that can result in lower sex drive, energy, and strength ? Itching and sweating RISKS ARE GREATER WITH: ? History of drug misuse, substance use disorder, or overdose ? Mental health conditions (such as depression or anxiety) ? Sleep apnea ? Older age (65 years and older) ? Avoid alcohol while taking prescription opioids. Also, unless specifically advised by your health care provider, medications to avoid include: ? Benzodiazepines (such as Xanax or Valium) ? Muscle relaxants (such as Soma or Flexeril) ? Hypnotics (such as Ambien or Lunesta) ? Other prescription opioids KNOW YOUR OPTIONS Talk to your health care provider about ways to manage your pain that don?t involve prescription opioids. Some of these options may actually work better and have fewer risks and side effects. Options may include: ? Pain relievers such as acetaminophen, ibuprofen, and naproxen ? Some medication that are also used for depression or seizures ? Physical therapy and exercise ? Cognitive behavioral therapy, a psychological, goal-directed approach, in which patients learn how to modify physical, behavioral, and emotional triggers of pain and stress. IF YOU ARE PRESCRIBED OPIOIDS FOR PAIN: ? Never take opioids in greater amounts or more often than prescribed. ? Follow up with your primary health care provider. o Work together to create a plan on how to manage your pain. o Talk about ways to help manage your pain that don?t involve prescription opioids. o Talk about any and all concerns and side effects. ? Help prevent misuse and abuse o Never sell or share prescription opioids. o Never use another person?s prescription opioids. ? Store prescription opioids in a secure place and out of reach of others (this may include visitors, children, friends, and family). ? Safely dispose of unused prescription opioids: Find your community drug take-back program or your pharmacy mail-back program, or flush them down the toilet, following guidance from the Food and Drug Administration (www.fda.gov/Drugs/Re sourcesForYou). ? Visit www.cdc.gov/emerson (more content not included)... Normal [facility] UA with Cult Rflxon 10-17-19 24 Bilirubin Ql (U) Negative Normal Negative [facility] Comment on above: Performed By: #### 4 [id number] ####[facility] [address] [place] [address] Clarity (U) Clear Normal Clear [facility] Comment on above: Performed By: #### 4 [id number] ####[facility] [address] [place] [address] Color (U) Light-Yellow Normal Yellow [facility] Comment on above: Result Comment: Micr oscopic readings are only performed on those samples that meet specific criteria set forth by [facility]. Performed By: #### 4 [id number] ####[facility] [address] [facility] [place] [address] Glucose Ql (U) Negative Normal Negative [facility] Comment on above: Performed By: #### 4 [id number] ####[facility] [address] [facility] [address] Hemoglobin Auto test strip (U) [Mass/Vol] Negative Normal Negative [facility] Comment on above: Performed By: #### 4 [id number] ####[facility] [address] [facility] [address] Ketones Auto test strip Ql (U) Negative Normal Negative [facility] Comment on above: Performed By: #### 4 [id number] ####[facility] [address] [facility] [place] [address] Leukocyte esterase Auto test strip Ql (U) Negative Normal Negative [facility] Comment on above: Performed By: #### 4 [id number] ####[facility] [address] [place] [address] Nitrite Auto test strip Ql (U) Negative Normal Negative [facility] Comment on above: Performed By: #### 4 [id number] ####[facility] [address] [place] [address] pH (U) 6.0 [pH] Invalid Interpretation Code 5.0-9.0 [facility] Comment on above: Performed By: #### 4 [id number] ####[facility] [address] [place] [address] Protein Ql (U) Negative Normal Negative [facility] Comment on above: Performed By: #### 4 [id number] ####[address] [address] Specific gravity (U) [Rel density] 1.013 Invalid Interpretation Code 1.005-1.030 [facility] Comment on above: Performed By: #### 4 [id number] ####[facility] [address] [place] [address] Urobilinogen (U) [Mass/Vol] Negative Normal Negative [facility] Comment on above: Performed By: #### 4 [id number] ####[facility] [address] [place] [address] Type of Urine collection method Clean Catch Normal [facility] Comment on above: Performed By: #### 4 [id number] ####[facility] [address] [place] [id number] URINALYSISOrdered By: SYSTEM SYSTEM on 10-17-2023 Bilirubin Ql (U) Negative Normal Negativemg/ d L FT UA Auto SS Clarity (U) Clear (10/17/23 6:27 PM) Normal Clear [facility] [place] Auto SS Color (U) Light-Yellow 1 (10/17/23 6:27 PM) Normal Yellow [facility] Auto SS Comment on above: Interpretive Data: M icroscopic readings are only performed on those samples that meet specific criteria set forth by [facility]. Glucose Ql (U) Negative Normal Negativemg/d L [facility] UA Auto SS Hemoglobin Auto test strip (U) [Mass/Vol] Negative Normal Negativemg/d L [facility] UA Auto SS Ketones Auto test strip Ql (U) Negative Normal Negativemg/d L [facility] UA Auto SS Leukocyte esterase Auto test strip Ql (U) Negative Normal NegativeLeu/ uL [facility] UA Auto SS Nitrite Auto test strip Ql (U) Negative Normal Negativemg/d L [facility] UA Auto SS pH (U) 6.0 *NA* (10/17/23 6:27 PM) Invalid Interpretation Code 5.0 - 9.0 FT UA Auto SS Protein Ql (U) Negative Normal Negativemg/d L [facility] UA Auto SS Specific gravity (U) [Rel density] 1.013 *NA* (10/17/23 6:27 PM) Invalid Interpretation Code 1.005 - 1.030 [facility] UA Auto SS Urobilinogen (U) [Mass/Vol] Negative Normal Negativemg/d L [facility] Auto SS URINALYSISOrdered By: France Day on 10-17-2023 UA Spec Desc Clean Catch (10/17/23 6:27 PM) Normal [facility] UA Auto SS Work Phone: ED Note-Physicianon 10-06-19 ED Note-Physician Basic Information Time Seen: Hank ULKE, Ulisses Lujan. 10/05/2023 19:30 Chief Complaint Pt arrives with c/o left side abd pain ongoing for months, has surgery scheduled on 10/10 with Bon for pelvic congestion syndrome. States also having painful urination. History of Present Illness 27-year-old female reports emergency department with chief complaint of chronic pain of her left side abdomen. Reports been going on for months. Reports that she does not have a history of chronic pelvic congestion syndrome. Reports having a flareup. States that symptoms worsen this morning. Reports some dysuria. Denies any antibiotics currently. Denies any fevers or chills. Does follow-up with Dr. Gooden, and does have surgery in 6 days. Denies any changes of bowel or bladder habits. Review of Systems A 10 point review of systems is negative except as noted above. Medical and Surgical History: Reviewed and noted Social history: Lives at home Family History: Reviewed. Tobacco: Denies Physical Exam Vitals & Measurements T: 36.9 ?C(Oral) HR: 107(Peripheral) RR: 18 BP: 116/73 SpO2: 98% HT: 160 cm WT: 144.2 kg BMI: 56.33 General: The patient appears well and in no apparent distress. Patient is resting comfortably in chair. afebrile Skin: Warm, dry, no pallor noted. Head: Normocephalic, atraumatic Neck: No JVD Eye: PERRLA, EOMI ENT: Moist mucus membranes Cardiovascular: Regular rate normal peripheral perfusion Respiratory: No respiratory distress no accessory muscle use no obvious audible wheezing Chest Wall: no deformity Musculoskeletal: normal ROM, no deformity, no swelling GI: No obvious distention soft mild tenderness of the left lower and suprapubic abdomen. Nondistended no guarding rebounding or rigidity Neurological: A&O moves all extremities equal strength and symmetry Psychiatric: Cooperative and appropriate Medical Decision Making MEDICAL DECISION MAKING Number and Complexity of Problems Differential Diagnosis: [] [facility] Data External documents reviewed: [] My EKG interpretation: [] My CT interpretation: [] My X-ray interpretation: [] My Ultrasound interpretation: [] Decision rules/scores evaluated: [] Discussed with: [] Treatment and Disposition ED Course: 27-year-old female reports emerged department chief complaint of abdominal pain. Reports possible dysuria as well. Reports history of pelvic congestion syndrome. Does follow-up with Dr. Gooden and does have surgery in 6 days. She denies any new symptoms. Would like something for pain. Due to concerns, I did do a urinalysis on the patient. This was negative. No signs of UTI. Will treat chronic pain with tramadol. Discussed return precautions. Follow-up with your primary care provider in 3 to 5 days. If symptoms worsen, do not improve, or new symptoms arise please report back to emergency department for further evaluation. The patient was understanding and agreeable to plan moving forward. Shared decision making: [] Code status: [] Assessment/Plan Chronic abdominal pain (R10.9: Unspecified abdominal pain) Other chronic pain (G89.29: Other chronic pain) Orders: tramadol, 50 mg = 1 tab(s), Oral, q6hr, PRN for pain, X 3 day(s), # 10 tab(s), Refills(s) 0, Pharmacy: [facility]/pharmacy #[id number], 160, cm, 10/05/23 19:30:00 EDT, Height/Length Dosing, 144.2, kg, 10/05/23 19:30:00 EDT, Weight Dosing tramadol, 50 mg = 1 tab(s), Tab, Oral, Once, Stop date 10/05/23 20:31:00 EDT, STAT, Start date 10/05/23 20:31:00 EDT, TO GO MED, 10/05/23 20:31:00 EDT Medications Administered Given traMADOL 50 mg Tab, 50 mg, Oral Disposition Plan Patient Discharge Condition Stable Discharge Disposition To home Discharge Prescription List Prescriptions traMADOL 50 mg Tab, 50 mg= 1 tab(s), Oral, q6hr, PRN Follow-up With When Contact Information Lorri Ireland In 3 days 10/08/[address] [place] [address] [facility] (1) Additional Instructions: Call Dr for diagnosis based follow up Attestation Patient seen and evaluated by the physician orthotics assistant. Attending physician was present in the emergency department and supervised care. This visit was performed by both the physician and an APC. I performed all aspects of the MDM as documented. This report was transcribed using voice recognition software. Every effort was made to ensure accuracy, however, inadvertently computerized printer slotter helper mistakes may be present. Appropriate healthcare PPE was used in evaluating this patient. The patient was placed in a mask. The healthcare provider was wearing mask, gloves, and utilizing proper hand hygiene. All equipment was properly cleansed. I performed a substantive part of the MDM during the patient?s E/M visit. I personally made or approved the documented management plan and acknowledge its risk of complications. (Independent Interpretation) My (EKG/X-Ray/US/CT as applicable) interpretation as above. (more content not included)... [facility] Comment on above: Result Comment: Elec tronically Signed By: Hank LUKE, Ulisses Wright\.br\Date and Time Signed: 10/05/23 22:36 EDT\.br\Electronically Co-Signed By: Bruno Jara DO\.br\Date and Time Co-Signed: 10/06/23 02:45 EDT Consent for Treatmenton Consent for Treatment [id number] .00TIFF Normal [facility] Discharge Instructionson Discharge Instructions [id number] .00TIFF Normal [facility] ED Clinical Summaryon 2023 ED Clinical Summary [address] [address] ED Clinical Summary Person Information Name: ALEJANDRA REAL [facility] Age: 27 Years : 1995 Sex: Female Language: Uruguayan PCP: Lorri Ireland CNP Marital Status: Single Phone: [phone] Visit Id: Visit Reason: Dysuria; Abdominal pain reevaluation; ABDOMINAL PAIN, PAINFUL URINATION Speciality: Acuity: 4 Enc Type: Emergency Med Service: Emergency Arrival: 10/05/2023 19:20:52 Discharge: 10/05/2023 20:44:01 LOS: 000 01:24 Checkin: 10/05/2023 19:20:52 Checkout: 10/05/2023 20:44:01 Dispo Type: Home (Routine DC) EVENTS: Event Name Event Status Request Date/Time Start Date/Time Complete Date/Time Arrive Complete 10/05/2023 19:20:52 10/05/2023 19:20:52 10/05/2023 19:20:52 Document Home Meds Request 10/05/2023 19:20:52 Triage Complete 10/05/2023 19:20:52 10/05/2023 19:30:12 10/05/2023 19:30:12 Pending Labs Complete 10/05/2023 19:23:03 10/05/2023 20:30:08 Lab Complete 10/05/2023 19:23:03 10/05/2023 20:30:08 Urine Collect Complete 10/05/2023 19:23:03 10/05/2023 20:30:08 Registration Complete 10/05/2023 19:23:05 10/05/2023 19:23:05 10/05/2023 19:23:05 Reg Complete Request 10/05/2023 19:23:05 Reg Bed Request Complete 10/05/2023 19:23:05 10/05/2023 19:23:05 10/05/2023 19:23:05 Bed Assign Complete 10/05/2023 19:30:28 10/05/2023 19:30:28 10/05/2023 19:30:28 Dr Exam Complete 10/05/2023 19:30:28 10/05/2023 19:30:53 10/05/2023 19:30:53 RN Exam Complete 10/05/2023 19:30:28 10/05/2023 20:05:21 10/05/2023 20:05:21 Registration Request 10/05/2023 19:30:53 Dr Exam Complete 10/05/2023 19:30:58 10/05/2023 19:30:58 10/05/2023 19:30:58 Meds Admin Complete 10/05/2023 20:31:30 10/05/2023 20:36:57 Discharge Complete 10/05/2023 20:32:56 10/05/2023 20:44:09 10/05/2023 20:44:09 Transfer Complete 10/05/2023 20:44:09 10/05/2023 20:44:09 10/05/2023 20:44:09 ADDRESS: [address] [place] [address] [address] [facility] [id number] PHYS DOC NOTES: MEDICAL INFORMATION: Prescriptions Given: Medications to Continue Taking That Have Changed [facility]/pharmacy #[id number], [address] [place], [place] [id number], [phone] START: tramadol (traMADOL 50 mg Tab) 1 Tablets By Mouth every 6 hours as needed for pain for 3 Days. Refills: 0. Other Medications START: tramadol (traMADOL 50 mg Tab) 1 Tablets By Mouth every 8 hours as needed as needed for pain. Refills: 0. START: tramadol (traMADOL 50 mg Tab) 1 Tablets By Mouth every 6 hours as needed as needed for pain. Refills: 0. Medications to Continue with No Changes Other Medications albuterol (Albuterol (Eqv-ProAir HFA) 90 mcg/inh inhalation aerosol) Inhalation every 6 hours. dicyclomine (Bentyl 10 mg Cap) 1 Capsules By Mouth 4 times a day as needed Other (see comment). For abdominal cramping. Refills: 0. Misc Prescription (BACLOFEN 10 MG TABLET) 0. multivitamin with iron (Iron 100 Plus) By Mouth every day. naproxen (Naprosyn 500 mg Tab) 1 Tablets By Mouth 2 times a day. Refills: 0. ondansetron (Zofran ODT 4 mg Tab-Dis) 1 Tablets By Mouth 3 times a day. Refills: 0. PATIENT EDUCATION INFORMATION: Instructions: Follow up: With: Address: When: Lorir Ireland [address] [place] [address], [facility], [address] [place] [address] Business (1) In 3 days 10/08/2023 Comments: Call Dr for diagnosis based follow up DIAGNOSIS: Chronic abdominal pain; Other chronic pain Normal [facility] ED Patient Education Noteon 10-05-2023 ED Patient Education Note Normal [facility] ED Patient Summaryon 024 ED Patient Summary [address] [address] Patient Discharge Instructions Person Information Name: ALEJANDRA REAL Rafaela Age: 27 Years Arrival Date: 10/05/2023 19:20:52 Discharge Diagnosis: Chronic abdominal pain; Other chronic pain Primary Care Physician: Lorri Ireland CNP Provider Information Primary Provider: Bruno Jara DO Advanced Bed [employer] Breakfast Innkeeper:None The exam and treatment you received in the Emergency Department were for an urgent problem and are not intended as complete care. It is important that you follow up with a doctor, nurse practitioner, or physician?s orthotics assistant for ongoing care. If your symptoms become worse or you do not improve as expected and you are unable to reach your usual health care provider, you should return to the Emergency Department. We are available 24 hours a day. ALEJANDRA REAL has been given the following list of patient education materials, prescriptions and follow-up instructions: Follow-up Instructions: With: Address: When: Lorri Ireland [address] [place] [address], [address] [place] [id number] [employer] (1) In 3 days 10/08/2023 Comments: Call Dr for diagnosis based follow up In the event that this physician does not participate in your insurance network, please consult with your insurance company to find a nearby participating provider. Patient Education Materials: A MESSAGE TO ALL PATIENTS REGARDING OPIOIDS PRESCRIPTION OPIOIDS: WHAT YOU NEED TO KNOW Prescription opioids can be used to help relieve isvindhq-hf-llxeqy pain and are often prescribed following a surgery or injury, or for certain health conditions. These medications can be an important part of the treatment but also come with serious risks. It is important to work with your healthcare provider to make sure you are getting the safest, most effective care. WHAT ARE THE RISKS AND SIDE EFFECTS OF OPIOID USE? Prescription opioids carry serious risks of addiction and overdose, especially with prolonged use. An opioid overdose, often marked by slowed breathing, can cause sudden . The use of prescription opioids can have a number of side effects as well, even when taken as directed: ? Tolerance?meaning you might need to take more of the medication for the same pain relief ? Physical dependence?meaning you have symptoms of withdrawal when a medication is stopped ? Increased sensitivity to pain ? Constipation ? Nausea, vomiting, and dry mouth ? Sleepiness and dizziness ? Confusion ? Depression ? Low levels of testosterone that can result in lower sex drive, energy, and strength ? Itching and sweating RISKS ARE GREATER WITH: ? History of drug misuse, substance use disorder, or overdose ? Mental health conditions (such as depression or anxiety) ? Sleep apnea ? Older age (65 years and older) ? Avoid alcohol while taking prescription opioids. Also, unless specifically advised by your health care provider, medications to avoid include: ? Benzodiazepines (such as Xanax or Valium) ? Muscle relaxants (such as Soma or Flexeril) ? Hypnotics (such as Ambien or Lunesta) ? Other prescription opioids KNOW YOUR OPTIONS Talk to your health care provider about ways to manage your pain that don?t involve prescription opioids. Some of these options may actually work better and have fewer risks and side effects. Options may include: ? Pain relievers such as acetaminophen, ibuprofen, and naproxen ? Some medication that are also used for depression or seizures ? Physical therapy and exercise ? Cognitive behavioral therapy, a psychological, goal-directed approach, in which patients learn how to modify physical, behavioral, and emotional triggers of pain and stress. IF YOU ARE PRESCRIBED OPIOIDS FOR PAIN: ? Never take opioids in greater amounts or more often than prescribed. ? Follow up with your primary health care provider. o Work together to create a plan on how to manage your pain. o Talk about ways to help manage your pain that don?t involve prescription opioids. o Talk about any and all concerns and side effects. ? Help prevent misuse and abuse o Never sell or share prescription opioids. o Never use another person?s prescription opioids. ? Store prescription opioids in a secure place and out of reach of others (this may include visitors, children, friends, and family). ? Safely dispose of unused prescription opioids: Find your community drug take-back program or your pharmacy mail-back program, or flush them down the toilet, following guidance from the Food and Drug Administration (www.fda.gov/Drugs/Re sourcesForYou). ? Visit www.cdc.gov/drugoverd ose to learn about the risks of opioids abuse and overdose. ? If you believe you may be struggling with addiction, tell your health vocational childcare teacher and ask for guidance or call [facility] (more content not included)... Normal [facility] SEROLOGYOrdered By: Kyle Mcgill on 10-05-2023 HCG.beta subunit (U) [Moles/Vol] Negative Normal [facility] [place] BetaHcg [place] 10-05-2023 HCG.beta subunit (U) [Moles/Vol] Negative Normal [facility] Comment on above: Performed By: #### 2 [id number] #### [facility] [address] [place] [address] UA with Cult Rflxon 10-05-19 24 Bilirubin Ql (U) Negative Normal Negative [facility] Comment on above: Performed By: #### 4 [id number] #### [facility] [address] [place] [address] Clarity (U) Clear Normal Clear [facility] Comment on above: Performed By: #### 4 [id number] #### [facility] [address] [place] [address] Color (U) Light-Yellow Normal Yellow [facility] Comment on above: Result Comment: Micr oscopic readings are only performed on those samples that meet specific criteria set forth by [facility]. Performed By: #### 4 [id number] #### [facility] [address] [place] [address] Glucose Ql (U) Negative Normal Negative [facility] Comment on above: Performed By: #### 4 [id number] #### [facility] [address] [place] [address] Hemoglobin Auto test strip (U) [Mass/Vol] Negative Normal Negative [facility] Comment on above: Performed By: #### 4 [id number] #### [facility] [address] [place] [address] Ketones Auto test strip Ql (U) Negative Normal Negative [facility] Comment on above: Performed By: #### 4 [id number] #### [facility] [address] [place] [address] Leukocyte esterase Auto test strip Ql (U) Negative Normal Negative [facility] Comment on above: Performed By: #### 4 [id number] #### [facility] [address] [place] [address] Nitrite Auto test strip Ql (U) Negative Normal Negative [facility] Comment on above: Performed By: #### 4 [id number] #### [facility] [address] [place] [address] pH (U) 6.0 [pH] Invalid Interpretation Code 5.0-9.0 [facility] Comment on above: Performed By: #### 4 [id number] #### [facility] [address] [place] [address] Protein Ql (U) Negative Normal Negative [facility] Comment on above: Performed By: #### 4 [id number] #### [facility] [address] [place] [address] Specific gravity (U) [Rel density] 1.027 Invalid Interpretation Code 1.005-1.030 [facility] Comment on above: Performed By: #### 4 [id number] #### [facility] [address] [place] [id number] Urobilinogen (U) [Mass/Vol] Negative Normal Negative [facility] Comment on above: Performed By: #### 4 [id number] #### [facility] [address] [place] [address] Type of Urine collection method Clean Catch Normal [facility] Comment on above: Performed By: #### 4 [id number] #### [facility] [address] [place] [address] URINALYSISOrdered By: SYSTEM SYSTEM on 10-05-2023 Bilirubin Ql (U) Negative Normal Negativemg/ d L [facility] UA Auto SS Clarity (U) Clear (10/05/23 7:52 PM) Normal Clear [facility] UA Auto SS Color (U) Light-Yellow 1 (10/05/23 7:52 PM) Normal Yellow [facility]A Auto SS Comment on above: Interpretive Data: M icroscopic readings are only performed on those samples that meet specific criteria set forth by [facility]. Glucose Ql (U) Negative Normal Negativemg/d L [facility] UA Auto SS Hemoglobin Auto test strip (U) [Mass/Vol] Negative Normal Negativemg/d L [facility] UA Auto SS Ketones Auto test strip Ql (U) Negative Normal Negativemg/d L [facility] UA Auto SS Leukocyte esterase Auto test strip Ql (U) Negative Normal NegativeLeu/ uL [facility] UA Auto SS Nitrite Auto test strip Ql (U) Negative Normal Negativemg/d L [facility] UA Auto SS pH (U) 6.0 *NA* (10/05/23 7:52 PM) Invalid Interpretation Code 5.0 - 9.0 [facility] UA Auto SS Protein Ql (U) Negative Normal Negativemg/d L [facility] UA Auto SS Specific gravity (U) [Rel density] 1.027 *NA* (10/05/23 7:52 PM) Invalid Interpretation Code 1.005 - 1.030 [facility] UA Auto SS Urobilinogen (U) [Mass/Vol] Negative Normal Negativemg/d L [facility] UA Auto SS URINALYSISOrdered By: Bruno lawson on 10-05-2023 UA Spec Desc Clean Catch (10/05/23 7:52 PM) Normal [facility] UA Auto SS Work Phone: Consent for Treatmenton 060 Consent for Treatment [id number] .00TIFF Normal [facility] Discharge Instructionson Discharge Instructions [id number] Normal [facility] ED Clinical Summaryon 2023 ED Clinical Summary [place] [id number] ED Clinical Summary Person Information Name: ALEJANDRA REAL [facility] Age: 27 Years : 1995 Sex: Female Language: Uruguayan PCP: Lorri Ireland CNP Marital Status: Single Phone: [phone] Visit Id: Visit Reason: Pelvic pain; Dysuria; Abdominal pain reevaluation; ABD PAIN, PAIN WHEN URINATING,NAUSEA Speciality: Acuity: 3 Enc Type: Emergency Med Service: Emergency Arrival: 10/02/2023 06:22:47 Discharge: 10/02/2023 07:48:25 LOS: 000 01:26 Checkin: 10/02/2023 06:22:47 Checkout: 10/02/2023 07:48:25 Dispo Type: Home (Routine DC) EVENTS: Event Name Event Status Request Date/Time Start Date/Time Complete Date/Time Arrive Complete 10/02/2023 06:22:47 10/02/2023 06:22:47 10/02/2023 06:22:47 Document Home Meds Request 10/02/2023 06:22:47 Triage Complete 10/02/2023 06:22:47 10/02/2023 06:32:31 10/02/2023 06:32:31 Registration Complete 10/02/2023 06:25:56 10/02/2023 06:25:56 10/02/2023 06:25:56 Reg Complete Request 10/02/2023 06:25:56 Reg Bed Request Complete 10/02/2023 06:25:56 10/02/2023 06:25:56 10/02/2023 06:25:56 Bed Assign Complete 10/02/2023 06:28:28 10/02/2023 06:28:28 10/02/2023 06:28:28 Dr Exam Complete 10/02/2023 06:28:28 10/02/2023 06:33:07 10/02/2023 06:33:07 RN Exam Complete 10/02/2023 06:28:28 10/02/2023 06:40:50 10/02/2023 06:40:50 Registration Request 10/02/2023 06:33:07 Pending Labs Complete 10/02/2023 06:33:39 10/02/2023 07:19:24 Lab Complete 10/02/2023 06:33:39 10/02/2023 07:04:44 Urine Collect Complete 10/02/2023 06:33:39 10/02/2023 07:04:44 Dr Exam Complete 10/02/2023 07:05:00 10/02/2023 07:05:00 10/02/2023 07:05:00 Discharge Complete 10/02/2023 07:39:49 10/02/2023 07:48:33 10/02/2023 07:48:33 Transfer Complete 10/02/2023 07:48:33 10/02/2023 07:48:33 10/02/2023 07:48:33 ADDRESS: [facility] [address] [facility] [phone] PHYS DOC NOTES: MEDICAL INFORMATION: Prescriptions Given: Medications to Continue Taking That Have Changed [facility]/pharmacy #[id number], [address] [place], [place] [phone], [phone] START: tramadol (traMADOL 50 mg Tab) 1 Tablets By Mouth every 6 hours as needed as needed for pain. Refills: 0. Other Medications START: tramadol (traMADOL 50 mg Tab) 1 Tablets By Mouth every 8 hours as needed as needed for pain. Refills: 0. Medications to Continue with No Changes Other Medications albuterol (Albuterol (Eqv-ProAir HFA) 90 mcg/inh inhalation aerosol) Inhalation every 6 hours. dicyclomine (Bentyl 10 mg Cap) 1 Capsules By Mouth 4 times a day as needed Other (see comment). For abdominal cramping. Refills: 0. Misc Prescription (BACLOFEN 10 MG TABLET) 0. multivitamin with iron (Iron 100 Plus) By Mouth every day. naproxen (Naprosyn 500 mg Tab) 1 Tablets By Mouth 2 times a day. Refills: 0. ondansetron (Zofran ODT 4 mg Tab-Dis) 1 Tablets By Mouth 3 times a day. Refills: 0. phenazopyridine (Pyridium 200 mg Tab) 1 Tablets By Mouth 3 times a day for 7 Days. Refills: 0. PATIENT EDUCATION INFORMATION: Instructions: Dysuria; Abdominal Pain, Adult; Chronic Pain, Adult Follow up: With: Address: When: Lorri Ireland [address] [place] [address], [address] [place] [address] [employer] (1) In 3 days 10/05/2023 Comments: Return to the emergency room if your pain gets worse, vomiting, fever or any new symptoms. DIAGNOSIS: 1:Dysuria; Chronic abdominal pain; Other chronic pain Normal [facility] ED Note-Physicianon 10-02-19 ED Note-Physician Basic Information Time Seen: Vivian Ochoa DO 10/02/2023 06:33 Chief Complaint Pt recently diagnosed with pelvic congestion syndrome, surgery scheduled 10/10 with Bon. States left abd pain, nausea, and burning with urination. Took zofran this AM with relief, tordal and bentyl around 0430. Denies . History of Present Illness Patient is a 27-year-old female with past medical history of pelvic congestion syndrome presenting to the ED for evaluation of abdominal pain. Patient states she has been having abdominal pain since this morning, progressively worsened. Patient states this feels like her typical pelvic congestion pain. Patient does have associated nausea and vomiting took Zofran, Toradol and Bentyl at home. Patient states she normally takes tramadol which she is out of. Review of Systems A 10 point review of systems is negative except as noted above. Medical and Surgical History: Reviewed and noted Social history: Lives at home Tobacco: Denies Physical Exam Vitals & Measurements T: 36.7 ?C(Oral) HR: 81(Monitored) RR: 16 BP: 114/70 SpO2: 97% HT: 160 cm WT: 67.7 kg BMI: 26.45 General: Well developed, non toxic appearing, no acute distress HEENT: Head atraumatic, Mucosa moist, hearing grossly normal Neck: No JVD, tracheal deviation Cardiac: Regular rate, rhythm, no murmurs, or gallops, 2+ radial pulses Respiratory: Lungs clear to auscultation B/L, normal respiratory effort Abdomen: Soft tenderness to palpation of the left lower abdomen, no rebound or guarding, no peritoneal signs Extremities: No edema noted in the LE B/L, no tenderness to palpation Neurologic: Alert and oriented, speech clear Skin: No rashes or lesions Psych: Appropriate mood and behavior Medical Decision Making MEDICAL DECISION MAKING Number and Complexity of Problems Differential Diagnosis: [] [facility] Data External documents reviewed: [] My EKG interpretation: [] My CT interpretation: [] My X-ray interpretation: [] My Ultrasound interpretation: [] Decision rules/scores evaluated: [] Discussed with: [] Treatment and Disposition ED Course: Patient is a 27-year-old female presenting to the ED for evaluation of lower abdominal pain. Patient has a history of pelvic congestion syndrome and states this feels similar to her previous. Urinalysis is obtained due to patient's urinary complaints. Patient did drive. Patient signed out to oncoming physician pending urinalysis results. test is negative. Shared decision making: [] Code status: [] Assessment/Plan Chronic abdominal pain (R10.9: Unspecified abdominal pain) Other chronic pain (G89.29: Other chronic pain) Orders: U Beta Hcg Qual UA with Cult Rflx Disposition Plan Discharge Prescription List Prescriptions No active prescription medications Follow-up No qualifying data available Problem List/Past Medical History Ongoing Asthma BMI 25.0-25.9,adult Dysuria History of COVID-19 (04-24-2021) Lower abdominal pain Numbness and tingling of leg Right flank pain Right lower quadrant pain Smoker Wrist pain Historical Acute low back pain Dental caries Heart murmur Pelvic congestion syndrome Procedure/Surgical History Nasal deviation, 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 Medications Inpatient No active inpatient medications Home Albuterol (Eqv-ProAir HFA) 90 mcg/inh inhalation aerosol, Inhalation, q6hr BACLOFEN 10 MG TABLET, 0 Bentyl 10 mg Cap, 10 mg= 1 cap(s), Oral, QID, PRN Iron 100 Plus, Oral, Daily Naprosyn 500 mg Tab, 500 mg= 1 tab(s), Oral, BID Pyridium 200 mg Tab, 200 mg= 1 tab(s), Oral, TID traMADOL 50 mg Tab, 50 mg= 1 tab(s), Oral, q8hr, PRN Zofran ODT 4 mg Tab-Dis, 4 mg= 1 tab(s), Oral, TID Allergies No Known Allergies Social History Alcohol - Denies Alcohol Use, 05/28/2021 Household alcohol concerns: No., 06/26/2022 Employment/School Unemployed, 05/16/2016 Exercise - Occasional exercise, 08/09/2016 Home/Environment Lives with Children, Significant other. Living situation: Home/Independent. Alcohol abuse in household: No. Substance abuse in household: No. Smoker in household: No. Injuries/Abuse/Neglec t in household: No. Feels unsafe at home: No. Safe place to go: Yes. Agency(s)/Others notified: No. Family/Friends available for support: Yes. Concern for family members at home: No. Major illness in household: No. Financial concerns: No. TV/Computer concerns: No., 08/09/2016 Lives with Significant other. Living situation: Home/Independent. Alcohol abuse in household: No. Substance abuse in household: No. Smoker in household: No. Injuries/Abuse/Neglec t in household: No. Feels unsafe at home: No. Safe place to go: Yes. Agency(s)/Others notified: No. Family/Friends available for support: Yes. Concern for family members at home: No. Major illness in h (more content not included)... Normal [facility] Comment on above: Result Comment: Elec tronically Signed By: Arpita Layton, Mary Jane Torres.tesha\Date and Time Signed: 10/02/23 09:15 EDT ED Note-Physician Basic Information Time Seen: Vivian Ochoa DO 10/02/2023 06:33 Chief Complaint Pt recently diagnosed with pelvic congestion syndrome, surgery scheduled 10/10 with Bon. States left abd pain, nausea, and burning with urination. Took zofran this AM with relief, tordal and bentyl around 0430. Denies . History of Present Illness Patient is a 27-year-old female with past medical history of pelvic congestion syndrome presenting to the ED for evaluation of abdominal pain. Patient states she has been having abdominal pain since this morning, progressively worsened. Patient states this feels like her typical pelvic congestion pain. Patient does have associated nausea and vomiting took Zofran, Toradol and Bentyl at home. Patient states she normally takes tramadol which she is out of. Review of Systems A 10 point review of systems is negative except as noted above. Medical and Surgical History: Reviewed and noted Social history: Lives at home Tobacco: Denies Physical Exam Vitals & Measurements T: 36.7 ?C(Oral) HR: 81(Monitored) RR: 16 BP: 114/70 SpO2: 97% HT: 160 cm WT: 67.7 kg BMI: 26.45 General: Well developed, non toxic appearing, no acute distress HEENT: Head atraumatic, Mucosa moist, hearing grossly normal Neck: No JVD, tracheal deviation Cardiac: Regular rate, rhythm, no murmurs, or gallops, 2+ radial pulses Respiratory: Lungs clear to auscultation B/L, normal respiratory effort Abdomen: Soft tenderness to palpation of the left lower abdomen, no rebound or guarding, no peritoneal signs Extremities: No edema noted in the LE B/L, no tenderness to palpation Neurologic: Alert and oriented, speech clear Skin: No rashes or lesions Psych: Appropriate mood and behavior Medical Decision Making MEDICAL DECISION MAKING Number and Complexity of Problems Differential Diagnosis: [] [facility] Data External documents reviewed: [] My EKG interpretation: [] My CT interpretation: [] My X-ray interpretation: [] My Ultrasound interpretation: [] Decision rules/scores evaluated: [] Discussed with: [] Treatment and Disposition ED Course: Patient is a 27-year-old female presenting to the ED for evaluation of lower abdominal pain. Patient has a history of pelvic congestion syndrome and states this feels similar to her previous. Urinalysis is obtained due to patient's urinary complaints. Patient did drive. Patient signed out to oncoming physician pending urinalysis results. test is negative. Shared decision making: [] Code status: [] Assessment/Plan Chronic abdominal pain (R10.9: Unspecified abdominal pain) Other chronic pain (G89.29: Other chronic pain) Orders: U Beta Hcg Qual UA with Cult Rflx Disposition Plan Discharge Prescription List Prescriptions No active prescription medications Follow-up No qualifying data available Problem List/Past Medical History Ongoing Asthma BMI 25.0-25.9,adult Dysuria History of COVID-19 (04-24-2021) Lower abdominal pain Numbness and tingling of leg Right flank pain Right lower quadrant pain Smoker Wrist pain Historical Acute low back pain Dental caries Heart murmur Pelvic congestion syndrome Procedure/Surgical History Nasal deviation, 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 Medications Inpatient No active inpatient medications Home Albuterol (Eqv-ProAir HFA) 90 mcg/inh inhalation aerosol, Inhalation, q6hr BACLOFEN 10 MG TABLET, 0 Bentyl 10 mg Cap, 10 mg= 1 cap(s), Oral, QID, PRN Iron 100 Plus, Oral, Daily Naprosyn 500 mg Tab, 500 mg= 1 tab(s), Oral, BID Pyridium 200 mg Tab, 200 mg= 1 tab(s), Oral, TID traMADOL 50 mg Tab, 50 mg= 1 tab(s), Oral, q8hr, PRN Zofran ODT 4 mg Tab-Dis, 4 mg= 1 tab(s), Oral, TID Allergies No Known Allergies Social History Alcohol - Denies Alcohol Use, 05/28/2021 Household alcohol concerns: No., 06/26/2022 Employment/School Unemployed, 05/16/2016 Exercise - Occasional exercise, 08/09/2016 Home/Environment Lives with Children, Significant other. Living situation: Home/Independent. Alcohol abuse in household: No. Substance abuse in household: No. Smoker in household: No. Injuries/Abuse/Neglec t in household: No. Feels unsafe at home: No. Safe place to go: Yes. Agency(s)/Others notified: No. Family/Friends available for support: Yes. Concern for family members at home: No. Major illness in household: No. Financial concerns: No. TV/Computer concerns: No., 08/09/2016 Lives with Significant other. Living situation: Home/Independent. Alcohol abuse in household: No. Substance abuse in household: No. Smoker in household: No. Injuries/Abuse/Neglec t in household: No. Feels unsafe at home: No. Safe place to go: Yes. Agency(s)/Others notified: No. Family/Friends available for support: Yes. Concern for family members at home: No. Major illness in h (more content not included)... Normal [facility] Comment on above: Result Comment: Elec tronically Signed By: Vivian Ochoa DO\.br\Date and Time Signed: 10/02/23 07:17 EDT ED Patient Education Noteon 10-02-2023 ED Patient Education Note Gastroenterology Abdominal Pain, Adult Pain in the abdomen (abdominal pain) can be caused by many things. Often, abdominal pain is not serious and it gets better with no treatment or by being treated at home. However, sometimes abdominal pain is serious. Your health care provider will ask questions about your medical history and do a physical exam to try to determine the cause of your abdominal pain. Follow these instructions at home: Medicines ? Take jfns-hjt-mvjxggi and prescription medicines only as told by your health care provider. ? Do not take a laxative unless told by your health care provider. General instructions ? Watch your condition for any changes. ? Drink enough fluid to keep your urine pale yellow. ? Keep all follow-up visits as told by your health care provider. This is important. Contact a health care provider if: ? Your abdominal pain changes or gets worse. ? You are not hungry or you lose weight without trying. ? You are constipated or have diarrhea for more than 2?3 days. ? You have pain when you urinate or have a bowel movement. ? Your abdominal pain wakes you up at night. ? Your pain gets worse with meals, after eating, or with certain foods. ? You are vomiting and cannot keep anything down. ? You have a fever. ? You have blood in your urine. Get help right away if: ? Your pain does not go away as soon as your health care provider told you to expect. ? You cannot stop vomiting. ? Your pain is only in areas of the abdomen, such as the right side or the left lower portion of the abdomen. Pain on the right side could be caused by appendicitis. ? You have bloody or black stools, or stools that look like tar. ? You have severe pain, cramping, or bloating in your abdomen. ? You have signs of dehydration, such as: ? Dark urine, very little urine, or no urine. ? Cracked lips. ? Dry mouth. ? Sunken eyes. ? Sleepiness. ? Weakness. ? You have trouble breathing or chest pain. Summary ? Often, abdominal pain is not serious and it gets better with no treatment or by being treated at home. However, sometimes abdominal pain is serious. ? Watch your condition for any changes. ? Take zvsk-lpm-gwscqxe and prescription medicines only as told by your health care provider. ? Contact a health care provider if your abdominal pain changes or gets worse. ? Get help right away if you have severe pain, cramping, or bloating in your abdomen. This information is not intended to replace advice given to you by your health care provider. Make sure you discuss any questions you have with your health care provider. Document Revised: 06/02/2020 Document Reviewed: 08/23/2019 [employer] Patient Education ? 2022 [employer] Mental and Behavioral Health Chronic Pain, Adult Chronic pain is a type of pain that lasts or keeps coming back for at least 3?6 months. You may have headaches, pain in the abdomen, or pain in other areas of the body. Chronic pain may be related to an illness, such as fibromyalgia or complex regional pain syndrome. Chronic pain may also be related to an injury or a health condition. Sometimes, the cause of chronic pain is not known. Chronic pain can make it hard for you to do daily activities. If not treated, chronic pain can lead to anxiety and depression. Treatment depends on the cause and severity of your pain. You may need to work with a pain specialist to come up with a treatment plan. The plan may include medicine, counseling, and physical therapy. Many people benefit from a combination of two or more types of treatment to control their pain. Follow these instructions at home: Medicines ? Take exkh-ptq-izbjkmc and prescription medicines only as told by your health care provider. ? Ask your health care provider if the medicine prescribed to you: ? Requires you to avoid driving or using machinery. ? Can cause constipation. You may need to take these actions to prevent or treat constipation: ? Drink enough fluid to keep your urine pale yellow. ? Take hxpi-cps-rfufyqx or prescription medicines. ? Eat foods that are high in fiber, such as beans, whole grains, and fresh fruits and vegetables. ? Limit foods that are high in fat and processed sugars, such as fried or sweet foods. Treatment plan Follow your treatment plan as told by your health care provider. This may include: ? Gentle, regular exercise. ? Eating a healthy diet that includes foods such as vegetables, fruits, fish, and lean meats. ? Cognitive or behavioral therapy that changes the way you think or act in response to the pain. This may help improve how you feel. ? Working with a physical therapist. ? Meditation, yoga, acupuncture, or massage therapy. ? Aroma, color, light, or sound therapy. ? Local electrical stimulation. The electrical pulses help to relieve pain by temporarily stopping the nerve impulses that cause you to feel pain. (more content not included)... Normal [facility] ED Patient Summaryon 024 ED Patient Summary [place] [id number] Patient Discharge Instructions Person Information Name: ALEJANDRA REAL Age: 27 Years Arrival Date: 10/02/2023 06:22:47 Discharge Diagnosis: 1:Dysuria; Chronic abdominal pain; Other chronic pain Primary Care Physician: Lorri Ireland CNP Provider Information Primary Provider: Vivian Ochoa DO [employer] Innkeeper:None The exam and treatment you received in the Emergency Department were for an urgent problem and are not intended as complete care. It is important that you follow up with a doctor, nurse practitioner, or physician?s orthotics assistant for ongoing care. If your symptoms become worse or you do not improve as expected and you are unable to reach your usual health care provider, you should return to the Emergency Department. We are available 24 hours a day. ALEJANDRA REAL has been given the following list of patient education materials, prescriptions and follow-up instructions: Follow-up Instructions: With: Address: When: Lorri Ireland [address] [place] [address], [address] [place] [id number] Business (1) In 3 days 10/05/2023 Comments: Return to the emergency room if your pain gets worse, vomiting, fever or any new symptoms. In the event that this physician does not participate in your insurance network, please consult with your insurance company to find a nearby participating provider. Patient Education Materials: Dysuria; Abdominal Pain, Adult; Chronic Pain, Adult A MESSAGE TO ALL PATIENTS REGARDING OPIOIDS PRESCRIPTION OPIOIDS: WHAT YOU NEED TO KNOW Prescription opioids can be used to help relieve vadknsrz-nt-inmeyw pain and are often prescribed following a surgery or injury, or for certain health conditions. These medications can be an important part of the treatment but also come with serious risks. It is important to work with your healthcare provider to make sure you are getting the safest, most effective care. WHAT ARE THE RISKS AND SIDE EFFECTS OF OPIOID USE? Prescription opioids carry serious risks of addiction and overdose, especially with prolonged use. An opioid overdose, often marked by slowed breathing, can cause sudden . The use of prescription opioids can have a number of side effects as well, even when taken as directed: ? Tolerance?meaning you might need to take more of the medication for the same pain relief ? Physical dependence?meaning you have symptoms of withdrawal when a medication is stopped ? Increased sensitivity to pain ? Constipation ? Nausea, vomiting, and dry mouth ? Sleepiness and dizziness ? Confusion ? Depression ? Low levels of testosterone that can result in lower sex drive, energy, and strength ? Itching and sweating RISKS ARE GREATER WITH: ? History of drug misuse, substance use disorder, or overdose ? Mental health conditions (such as depression or anxiety) ? Sleep apnea ? Older age (65 years and older) ? Avoid alcohol while taking prescription opioids. Also, unless specifically advised by your health care provider, medications to avoid include: ? Benzodiazepines (such as Xanax or Valium) ? Muscle relaxants (such as Soma or Flexeril) ? Hypnotics (such as Ambien or Lunesta) ? Other prescription opioids KNOW YOUR OPTIONS Talk to your health care provider about ways to manage your pain that don?t involve prescription opioids. Some of these options may actually work better and have fewer risks and side effects. Options may include: ? Pain relievers such as acetaminophen, ibuprofen, and naproxen ? Some medication that are also used for depression or seizures ? Physical therapy and exercise ? Cognitive behavioral therapy, a psychological, goal-directed approach, in which patients learn how to modify physical, behavioral, and emotional triggers of pain and stress. IF YOU ARE PRESCRIBED OPIOIDS FOR PAIN: ? Never take opioids in greater amounts or more often than prescribed. ? Follow up with your primary health care provider. o Work together to create a plan on how to manage your pain. o Talk about ways to help manage your pain that don?t involve prescription opioids. o Talk about any and all concerns and side effects. ? Help prevent misuse and abuse o Never sell or share prescription opioids. o Never use another person?s prescription opioids. ? Store prescription opioids in a secure place and out of reach of others (this may include visitors, children, friends, and family). ? Safely dispose of unused prescription opioids: Find your community drug take-back program or your pharmacy mail-back program, or flush them down the toilet, following guidance from the Food and Drug Administration (www.fda.gov/Drugs/Re sourcesForYou). ? Visit www.cdc.gov/drugoverd ose to learn about the risks of opioids abuse and overdose. ? If you believe (more content not included)... Normal [facility] SEROLOGYOrdered By: Brii Walters on 10-02-2023 HCG.beta subunit (U) [Moles/Vol] Negative Normal [facility] [place] BetaHcg [place] 10-02-2023 HCG.beta subunit (U) [Moles/Vol] Negative Normal [facility] Comment on above: Performed By: #### 2 [id number] #### [facility] [address] [place] [address] UA with Cult Rflxon 10-02-19 24 Bilirubin Ql (U) Negative Normal Negative [facility] Comment on above: Performed By: #### 4 [id number] #### [facility] [address] [place] [address] Clarity (U) Turbid Abnormal Clear [facility] Comment on above: Performed By: #### 4 [id number] #### [facility] [address] [place] [address] Color (U) Yellow Normal Yellow [facility] Comment on above: Result Comment: Micr oscopic readings are only performed on those samples that meet specific criteria set forth by [facility]. Performed By: #### 4 [id number] #### [facility] [address] [place] [address] Epithelial cells.squamous Auto (Urine sed) [#/Area] 0-2 Normal 0-2 [facility] Comment on above: Performed By: #### 4 [id number] #### [facility] [address] [place] [address] Glucose Ql (U) Negative Normal Negative [facility] Comment on above: Performed By: #### 4 [id number] #### [facility] [address] [place] [address] Hemoglobin Auto test strip (U) [Mass/Vol] Negative Normal Negative [facility] Comment on above: Performed By: #### 4 [id number] #### [facility] [address] [place] [address] Ketones Auto test strip Ql (U) Negative Normal Negative [facility] Comment on above: Performed By: #### 4 [id number] #### [facility] [address] [place] [address] Leukocyte esterase Auto test strip Ql (U) Negative Normal Negative [facility] Comment on above: Performed By: #### 4 [id number] #### [facility] [address] [place] [address] Mucus Auto Ql (U) Trace Normal Negative [facility] Comment on above: Performed By: #### 4 [id number] #### [facility] [address] [place] [address] Nitrite Auto test strip Ql (U) Negative Normal Negative [facility] Comment on above: Performed By: #### 4 [id number] #### [facility] [address] [place] [address] pH (U) 7.0 [pH] Invalid Interpretation Code 5.0-9.0 [facility] Comment on above: Performed By: #### 4 [id number] #### [facility] [address] [place] [address] Protein Ql (U) Trace Abnormal Negative [facility] Comment on above: Performed By: #### 4 [id number] #### [facility] [address] [place] [address] RBC Ql (U) 0-3 Normal 0-3 [facility] Comment on above: Performed By: #### 4 [id number] #### [facility] [address] [place] [address] Specific gravity (U) [Rel density] 1.032 Invalid Interpretation Code 1.005-1.030 [facility] Comment on above: Performed By: #### 4 [id number] #### [facility] [address] [place] [address] Urobilinogen (U) [Mass/Vol] 2 mg/dL Abnormal Negative [facility] Comment on above: Performed By: #### 4 [id number] #### [facility] [address] [place] [address] WBC Auto (Urine sed) [#/Area] 0-5 Normal 0-5 [facility] Comment on above: Performed By: #### 4 [id number] #### [facility] [address] [place] [address] Type of Urine collection method Clean Catch Normal [facility] Comment on above: Performed By: #### 4 [id number] #### [facility] [address] [place] [address] URINALYSISOrdered By: Michael Walters on 10-02-2023 Bilirubin Ql (U) Negative Normal Negativemg/ d L [facility] UA Auto SS Clarity (U) Turbid *ABN* (10/02/23 6:38 AM) Invalid Interpretation Code Clear [facility] UA Auto SS Color (U) Yellow 1 (10/02/23 6:38 AM) Normal Yellow [facility] UA Auto SS Comment on above: Interpretive Data: M icroscopic readings are only performed on those samples that meet specific criteria set forth by [facility]. Epithelial cells.squamous Auto (Urine sed) [#/Area] 0-2 graded/HPF Normal 0-2graded/HP F [facility] UA Auto SS Glucose Ql (U) Negative Normal Negativemg/d L [facility] UA Auto SS Hemoglobin Auto test strip (U) [Mass/Vol] Negative (10/02/23 6:38 AM) Normal Negative [facility] UA Auto SS Ketones Auto test strip Ql (U) Negative Normal Negativemg/d L [facility] UA Auto SS Leukocyte esterase Auto test strip Ql (U) Negative (10/02/23 6:38 AM) Normal Negative [facility] UA Auto SS Mucus Auto Ql (U) Trace Normal Negative [facility] UA Auto SS Nitrite Auto test strip Ql (U) Negative Normal Negativemg/d L [facility] UA Auto SS pH (U) 7.0 *NA* (10/02/23 6:38 AM) Invalid Interpretation Code 5.0 - 9.0 [facility] UA Auto SS Protein Ql (U) Trace mg/dL Invalid Interpretation Code Negativemg/d L [facility] UA Auto SS RBC Ql (U) 0-3 graded/HPF Normal 0-3graded/HP F [facility] UA Auto SS Specific gravity (U) [Rel density] 1.032 *NA* (10/02/23 6:38 AM) Invalid Interpretation Code 1.005 - 1.030 [facility] UA Auto SS Urobilinogen (U) [Mass/Vol] 2 mg/dL Invalid Interpretation Code Negativemg/d L [facility] UA Auto SS WBC Auto (Urine sed) [#/Area] 0-5 graded/HPF Normal 0-5graded/HP F [facility] UA Auto SS URINALYSISOrdered By: Abbi Ochoa on 10-02-2023 UA Spec Desc Clean Catch (10/02/23 6:38 AM) Normal [facility] UA Auto SS Work Phone: ED Note-Physicianon 09-28-19 ED Note-Physician Basic Information Time Seen: Hank LUKE, Ulisses Wright 09/24/2023 15:28 Chief Complaint patient presents with lower abdominal pain with burning with urination. denies blood in urine. recently treated for UTI with macrobid. no improvement. History of Present Illness 27-year-old female reports to the emergency department with a complaint of lower abdominal pain with burning with urination. Feels like she has UTI. Reports a history of pelvic congestion syndrome, and has had similar symptoms like this previously. Reports it Comes and goes with pain. Reports that they, it is little bit worse. Reports just finished course of Macrobid for UTI, but symptoms have not really improved. She states that she does have surgery on October [address] Gooden, but is want to follow-up with outpatient with everything. She denies any new symptoms, and reports this is her typical presentation. Denies any known allergies. Review of Systems A 10 point review of systems is negative except as noted above. Medical and Surgical History: Reviewed and noted Social history: Lives at home Family History: Reviewed. Tobacco: denies Physical Exam Vitals & Measurements T: 36.8 ?C(Oral) HR: 98(Peripheral) RR: 18 BP: 116/78 SpO2: 100% HT: 160 cm WT: 65 kg BMI: 25.39 General: The patient appears well and in no apparent distress. Patient is resting comfortably in chair. afebrile Skin: Warm, dry, no pallor noted. Head: Normocephalic, atraumatic Neck: No JVD Eye: PERRLA, EOMI ENT: Moist mucus membranes Cardiovascular: Regular rate normal peripheral perfusion. radial pulses +2 bilaterally Respiratory: No respiratory distress no accessory muscle use no obvious audible wheezing Chest Wall: no deformity Musculoskeletal: normal ROM, no deformity, no swelling GI: No obvious distention soft. Mild tenderness of the suprapubic region of the lower abdomen. Nondistended no guarding rebounding or rigidity. no cVA tenderness Neurological: A&O moves all extremities equal strength and symmetry Psychiatric: Cooperative and appropriate Medical Decision Making MEDICAL DECISION MAKING Number and Complexity of Problems Differential Diagnosis: [] [facility] Data External documents reviewed: [] My EKG interpretation: [] My CT interpretation: [] My X-ray interpretation: [] My Ultrasound interpretation: [] Decision rules/scores evaluated: [] Discussed with: [] Treatment and Disposition ED Course: 27-year-old female who reports to the emergency department with complaints of dysuria, lower abdominal pain. Reports that she has consistently had the symptoms over the last couple of weeks. Denies any new changes of her symptoms. States concern for possible UTI. Reports history of pelvic congestion syndrome. Does have surgery on [address] Gooden. Examined patient relatively benign. Mild lower abdominal suprapubic tenderness, without rebound tenderness or guarding noted. No CVA tenderness bilaterally. Denies any fevers. I did discuss lab work, as well as a CT, but we did go against this at this time, due to the patient's history of recent CTs, do believe that there is no acute change, and wants to just check a urine. Was comfortable with this. We did do a urinalysis that was negative for any signs of UTI. Discussed we will treat the dysuria with Pyridium. Given tramadol for breakthrough pain. Discussed return precautions. Follow-up with your primary care provider in 3 to 5 days. If symptoms worsen, do not improve, or new symptoms arise please report back to emergency department for further evaluation. The patient was understanding and agreeable to plan moving forward. Shared decision making: [] Code status: [] Assessment/Plan Dysuria (R30.0: Dysuria) Orders: phenazopyridine, 100 mg = 1 tab(s), Oral, TID, X 3 day(s), # 9 tab(s), Refills(s) 0, Pharmacy: [facility]/pharmacy #[id number], 160, cm, 09/24/23 15:37:00 EDT, Height/Length Dosing, 65, kg, 09/24/23 15:37:00 EDT, Weight Dosing tramadol, 50 mg = 1 tab(s), Oral, q6hr, PRN for pain, X 3 day(s), # 12 tab(s), Refills(s) 0, Pharmacy: [facility]/pharmacy #[id number], 160, cm, 09/24/23 15:37:00 EDT, Height/Length Dosing, 65, kg, 09/24/23 15:37:00 EDT, Weight Dosing UA with Cult Rflx Disposition Plan Patient Discharge Condition Stable Discharge Disposition To home Discharge Prescription List Prescriptions Pyridium 100 mg Tab, 100 mg= 1 tab(s), Oral, TID traMADOL 50 mg Tab, 50 mg= 1 tab(s), Oral, q6hr, PRN Follow-up With When Contact Information Fatoumata Gooden In 3 days 09/27/2023 EDT [address] [place] [address]- Business (1) Additional Instructions: Call Dr for diagnosis based follow up Lorri Ireland In 3 days 09/27/2023 EDT [address] [facility], [address] [place] [address]- Business (1) Additional Instructions: Call Dr for diagnosis based follow up Patient Education Dysuria Attestation Patient seen and evaluated by the physician orthotics assistant. Yvette (more content not included)... Normal [facility] Comment on above: Result Comment: Elec tronically Signed By: Hank LUKE, Ulisses Wright\.br\Date and Time Signed: 09/24/23 16:26 EDT\.br\Electronically Co-Signed By: Suman DC, Guille\.br\Date and Time Co-Signed: 09/28/23 10:51 EDT Automated basophil %Ordered By: Neptali Esquivel on 09-27-2023 Basophils/100 WBC (Bld) 0.2 % Normal . [facility] Comment on above: Performed By: #### C BC, BMP #### [facility] [address] Automated basophil countOrde red By: Neptali Esquivel on 09-27-2023 Basophils (Bld) [#/Vol] 0.0 10*3/uL Normal 0.0-0.2 [facility] Comment on above: Result Comment: PERF ORMED BY: [facility] [address] [place] [address] PATHOLOGIST MEAT TEAM LEAD ALEXANDER SANDERS M.D. Performed By: #### C BC, BMP #### [address] Automated blood monocyte cou ntOrdered By: Neptali Esquivel on 09-27-2023 Monocytes (Bld) [#/Vol] 0.3 10*3/uL Normal 0.0-0.8 [facility] Comment on above: Performed By: #### C BC, BMP #### [address] Automated eosinophil %Ordere d By: Neptali Esquivel on 09-27-2023 Eosinophils/100 WBC (Bld) 0.5 % Normal . [facility] Comment on above: Performed By: #### C BC, BMP #### [address] Automated eosinophil countOr dered By: Neptali Esquivel on 09-27-2023 Eosinophils (Bld) [#/Vol] 0.0 10*3/uL Normal 0.0-0.45 [facility] Comment on above: Performed By: #### C BC, BMP #### [address] Automated monocyte %Ordered By: Neptali Esquivel on 09-27-2023 Monocytes/100 WBC (Bld) 5.1 % Normal . [facility] Comment on above: Performed By: #### C BC, BMP #### [address] Automated neutrophil %Ordere d By: Neptali Esquivel on 09-27-2023 Neutrophils/100 WBC (Bld) 73.0 % Normal . [facility] Comment on above: Performed By: #### C BC, BMP #### [address] Basic Metabolic Panelon Creatinine Clr Calc Pharmacy 93.76 Normal [facility] Comment on above: Result Comment: PERF ORMED BY: [place] [address] PATHOLOGIST MEAT TEAM LEAD ALEXANDER SANDERS M.D. Performed By: #### C BC, BMP #### [address] GFR/1.73 sq M.predicted MDRD (S/P/Bld) [Vol rate/Area] mL/min/{1.73_m2} Normal [facility] Comment on above: Performed By: #### C BC, BMP #### [address] Bilirubin Test strip Ql (U)O rdered By: Neptali Esquivel on 09-27-2023 Bilirubin Ql (U) Negative Negative [facility] Calcium [Mass/volume] in Ser um or PlasmaOrdered By: Neptali Esquivel on 09-27-2023 Calcium [Mass/Vol] 9.7 mg/dL Normal 8.6-10.3 [facility] Comment on above: Performed By: #### C BC, BMP #### [address] Carbon dioxide, total [Moles /volume] in Serum or PlasmaOrdered By: Neptali Esquivel on 09-27-2023 CO2 [Moles/Vol] 28.3 mmol/L Normal 21.0-31.0 [facility] Comment on above: Performed By: #### C BC, BMP #### [place] [address] [place] Chloride [Moles/volume] in S gabbie or PlasmaOrdered By: Neptali Esquivel on 09-27-2023 Chloride [Moles/Vol] 107 mmol/L Normal 98-107 [facility] Comment on above: Performed By: #### C BC, BMP #### [address] Color of Urine by AutoOrdere d By: Neptali Esquivel on 09-27-2023 Color (U) Yellow Normal Yellow [facility] Comment on above: Order Comment: Name Collection Type:: Clean-Voided Midstream Performed By: #### U HCG, UA #### [address] Complete Blood Count Auto Di ffon 09-27-2023 Mean Corpuscular HGB Conc 34.0 g/dL Normal 32.0-35.0 [facility] Comment on above: Performed By: #### C BC, BMP #### [place] [address] [place] Monocytes/100 WBC (Bld) 16.50 % Normal 0.00-20.00 [facility] Comment on above: Performed By: #### C JOY, BMP #### [address] NRBC% 0.2 /100{WBC} Normal 0-0.5 [facility] Comment on above: Performed By: #### C JOY, BMP #### [address] Consent for Treatmenton 06 Consent for Treatment [id number] .00TIFF Normal [facility] Creatinine [Mass/volume] in Serum or PlasmaOrdered By: Neptali Esquivel on 09-27-2023 Creatinine [Mass/Vol] 0.81 mg/dL Normal 0.60-1.20 [facility] Comment on above: Performed By: #### C JOY, BMP #### [address] Discharge Instructionson Discharge Instructions [id number]# 1.00TIFF Normal [facility] ED Clinical Summaryon 2023 ED Clinical Summary [place] [id number] ED Clinical Summary Person Information Name: ALEJANDRA REAL [facility] Age: 27 Years : 1995 Sex: Female Language: Uruguayan PCP: Lorri Ireland CNP Marital Status: Single Phone: [phone] Visit Id: Visit Reason: Dysuria; Pelvic pain; pelvic pain, nausea, burning while urinating Speciality: Acuity: 4 Enc Type: Emergency Med Service: Emergency Arrival: 09/27/2023 10:29:45 Discharge: 09/27/2023 10:45:28 LOS: 000 00:16 Checkin: 09/27/2023 10:29:45 Checkout: 09/27/2023 10:45:28 Dispo Type: Home (Routine DC) EVENTS: Event Name Event Status Request Date/Time Start Date/Time Complete Date/Time Arrive Complete 09/27/2023 10:29:45 09/27/2023 10:29:45 09/27/2023 10:29:45 Document Home Meds Request 09/27/2023 10:29:45 Triage Complete 09/27/2023 10:29:45 09/27/2023 10:34:50 09/27/2023 10:34:50 Bed Assign Complete 09/27/2023 10:31:17 09/27/2023 10:31:17 09/27/2023 10:31:17 Dr Exam Complete 09/27/2023 10:31:17 09/27/2023 10:35:32 09/27/2023 10:35:32 RN Exam Complete 09/27/2023 10:31:17 09/27/2023 10:44:36 09/27/2023 10:44:36 Registration Complete 09/27/2023 10:35:32 09/27/2023 10:44:53 09/27/2023 10:44:53 Dr Exam Complete 09/27/2023 10:36:49 09/27/2023 10:36:49 09/27/2023 10:36:49 Meds Admin Complete 09/27/2023 10:37:21 09/27/2023 10:42:23 Discharge Complete 09/27/2023 10:37:33 09/27/2023 10:45:34 09/27/2023 10:45:34 Reg Complete Request 09/27/2023 10:44:53 Reg Bed Request Complete 09/27/2023 10:44:53 09/27/2023 10:44:53 09/27/2023 10:44:53 Transfer Complete 09/27/2023 10:45:34 09/27/2023 10:45:34 09/27/2023 10:45:34 ADDRESS: [facility] [address] [place] [id number] [facility] DOC NOTES: MEDICAL INFORMATION: Prescriptions Given: Medications to Continue with No Changes Other Medications albuterol (Albuterol (Eqv-ProAir HFA) 90 mcg/inh inhalation aerosol) Inhalation every 6 hours. dicyclomine (Bentyl 10 mg Cap) 1 Capsules By Mouth 4 times a day as needed Other (see comment). For abdominal cramping. Refills: 0. Misc Prescription (BACLOFEN 10 MG TABLET) 0. multivitamin with iron (Iron 100 Plus) By Mouth every day. naproxen (Naprosyn 500 mg Tab) 1 Tablets By Mouth 2 times a day. Refills: 0. ondansetron (Zofran ODT 4 mg Tab-Dis) 1 Tablets By Mouth 3 times a day. Refills: 0. phenazopyridine (Pyridium 100 mg Tab) 1 Tablets By Mouth 3 times a day for 3 Days. Refills: 0. phenazopyridine (Pyridium 200 mg Tab) 1 Tablets By Mouth 3 times a day for 7 Days. Refills: 0. tramadol (traMADOL 50 mg Tab) 1 Tablets By Mouth every 8 hours as needed as needed for pain. Refills: 0. tramadol (traMADOL 50 mg Tab) 1 Tablets By Mouth every 6 hours as needed for pain for 3 Days. Refills: 0. PATIENT EDUCATION INFORMATION: Instructions: Chronic Pain, Adult Follow up: With: Address: When: Lorri Ireland [address] [place] [address], [address] [place] [address] [employer] () In 3 days 09/30/2023 DIAGNOSIS: Chronic pain in female pelvis; Other chronic pain Normal [facility] ED Note-Physicianon 09-27-19 ED Note-Physician Basic Information Time Seen: Sy Pickard PA-C 09/27/2023 10:35 Chief Complaint Pt having L sided pelvic pain. This has been an ongoing issue. Supposed to see Dr. Gooden for pelvic congestion. Pt. was here yesterday for same thing. History of Present Illness 27-year-old female comes to the ED for evaluation of pelvic pain. She has been diagnosed with pelvic congestion syndrome. She has chronic pelvic pain has been ongoing for months. She has had some dysuria recently. She was seen here yesterday had negative urinalysis and is currently on Pyridium. She states normal checks Ultram for the pain but is currently out of that medication. She is requesting that today. No new or unusual symptoms. No acute fevers or vomiting. Review of Systems A 10 point review of systems is negative except as noted above. Medical and Surgical History: Reviewed and noted Social history: Lives at home Tobacco: Denies Physical Exam Vitals & Measurements T: 37 ?C(Oral) HR: 80(Peripheral) RR: 16 BP: 127/76 SpO2: 100% HT: 160 cm WT: 65 kg BMI: 25.39 Nurses notes and vital signs reviewed and patient is not hypoxic. General: The patient appears well, resting comfortably. Skin: Warm, dry. Head: Atraumatic. Neck: No JVD. Eye: Normal conjunctiva. Ears, Nose, Mouth, and Throat: Moist mucous membranes. Cardiovascular: Strong distal pulses. Chest wall: Respiratory: Respirations are nonlabored. Back: Normal range of motion. Musculoskeletal: Normal ROM with no gross deformity. Gastrointestinal: Soft and relatively nontender Urological: Neurological: Awake and alert. No focal deficits. Follows commands. Psychiatric: Cooperative. Medical Decision Making Patient is resting company on examination. She is in no distress. She has a benign abdominal examination. She has chronic pelvic pain and just had negative urinalysis yesterday. She is given a dose of Ultram here and discharged home to follow-up with her specialist. Patient was encouraged to return to the ED if symptoms worsen or change. Assessment/Plan Chronic pain in female pelvis (R10.2: Pelvic and perineal pain) Other chronic pain (G89.29: Other chronic pain) Orders: tramadol, 50 mg = 1 tab(s), Tab, Oral, Once, Stop date 09/27/23 10:37:00 EDT, STAT, Start date 09/27/23 10:37:00 EDT, 09/27/23 10:37:00 EDT Disposition Plan Patient Discharge Condition Disposition: Discharged home Condition: Improved and stable Counseled: Patient and/or family were counseled to workup, results, treatment plan and follow-up recommendations Discharge Prescription List Prescriptions Pyridium 200 mg Tab, 200 mg= 1 tab(s), Oral, TID Follow-up With When Contact Information Lorri Ireland In 3 days 09/30/2023 EDT [address] [facility], [address] [place] [id number]- Business (1) Additional Instructions: Patient Education Chronic Pain, Adult Attestation I performed a substantive part of the MDM during the patient?s E/M visit. I personally made or approved the documented management plan and acknowledge its risk of complications. (Independent Interpretation) My (EKG/X-Ray/US/CT) interpretation as above. (Discussion) Management/test interpretation discussed with APC. This report was transcribed using voice recognition software. Every effort was made to ensure accuracy, however, inadvertently computerized printer slotter helper mistakes may be present. Appropriate healthcare PPE was used in evaluating this patient. Problem List/Past Medical History Ongoing Asthma BMI 25.0-25.9,adult Dysuria History of COVID-19 (04-24-2021) Lower abdominal pain Numbness and tingling of leg Right flank pain Right lower quadrant pain Smoker Wrist pain Historical Acute low back pain Dental caries Heart murmur Pelvic congestion syndrome Procedure/Surgical History Nasal deviation, 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 Medications Inpatient Ultram 50 mg Tab, 50 mg= 1 tab(s), Oral, Once Home Albuterol (Eqv-ProAir HFA) 90 mcg/inh inhalation aerosol, Inhalation, q6hr BACLOFEN 10 MG TABLET, 0 Bentyl 10 mg Cap, 10 mg= 1 cap(s), Oral, QID, PRN Iron 100 Plus, Oral, Daily Naprosyn 500 mg Tab, 500 mg= 1 tab(s), Oral, BID Pyridium 100 mg Tab, 100 mg= 1 tab(s), Oral, TID Pyridium 200 mg Tab, 200 mg= 1 tab(s), Oral, TID traMADOL 50 mg Tab, 50 mg= 1 tab(s), Oral, q6hr, PRN traMADOL 50 mg Tab, 50 mg= 1 tab(s), Oral, q8hr, PRN Zofran ODT 4 mg Tab-Dis, 4 mg= 1 tab(s), Oral, TID Allergies No Known Allergies Social History Alcohol - Denies Alcohol Use, 05/28/2021 Household alcohol concerns: No., 06/26/2022 Employment/School Unemployed, 05/16/2016 Exercise - Occasional exercise, 08/09/2016 Home/Environment Lives with Children, Significant other. Living situation: Home/Independent. Alcohol abuse in household: No. Substance abuse in household: No. Smok (more content not included)... Normal [facility] Comment on above: Result Comment: Elec tronically Signed By: Sy Pickard PA-C\.br\Date and Time Signed: 09/27/23 11:07 EDT\.br\Electronically Co-Signed By: Darren Lomax DO\.br\Date and Time Co-Signed: 09/27/23 11:54 EDT ED Patient Education Noteon 09-27-2023 ED Patient Education Note Mental and Behavioral Health Chronic Pain, Adult Chronic pain is a type of pain that lasts or keeps coming back for at least 3?6 months. You may have headaches, pain in the abdomen, or pain in other areas of the body. Chronic pain may be related to an illness, such as fibromyalgia or complex regional pain syndrome. Chronic pain may also be related to an injury or a health condition. Sometimes, the cause of chronic pain is not known. Chronic pain can make it hard for you to do daily activities. If not treated, chronic pain can lead to anxiety and depression. Treatment depends on the cause and severity of your pain. You may need to work with a pain specialist to come up with a treatment plan. The plan may include medicine, counseling, and physical therapy. Many people benefit from a combination of two or more types of treatment to control their pain. Follow these instructions at home: Medicines ? Take klmq-dee-xlzsblr and prescription medicines only as told by your health care provider. ? Ask your health care provider if the medicine prescribed to you: ? Requires you to avoid driving or using machinery. ? Can cause constipation. You may need to take these actions to prevent or treat constipation: ? Drink enough fluid to keep your urine pale yellow. ? Take wnxf-jxb-jpvfprt or prescription medicines. ? Eat foods that are high in fiber, such as beans, whole grains, and fresh fruits and vegetables. ? Limit foods that are high in fat and processed sugars, such as fried or sweet foods. Treatment plan Follow your treatment plan as told by your health care provider. This may include: ? Gentle, regular exercise. ? Eating a healthy diet that includes foods such as vegetables, fruits, fish, and lean meats. ? Cognitive or behavioral therapy that changes the way you think or act in response to the pain. This may help improve how you feel. ? Working with a physical therapist. ? Meditation, yoga, acupuncture, or massage therapy. ? Aroma, color, light, or sound therapy. ? Local electrical stimulation. The electrical pulses help to relieve pain by temporarily stopping the nerve impulses that cause you to feel pain. ? Injections. These deliver numbing or pain-relieving medicines into the spine or the area of pain. Lifestyle ? Ask your health care provider whether you should keep a pain diary. Your health care provider will tell you what information to write in the diary. This may include when you have pain, what the pain feels like, and how medicines and other behaviors or treatments help to reduce the pain. ? Consider talking with a mental health care provider about how to manage chronic pain. ? Consider joining a chronic pain support group. ? Try to control or lower your stress levels. Talk with your health care provider about ways to do this. General instructions ? Learn as much as you can about how to manage your chronic pain. Ask your health care provider if an intensive pain rehabilitation program or a chronic pain specialist would be helpful. ? Check your pain level as told by your health care provider. Ask your health care provider if you should use a pain scale. ? It is up to you to get the results of any tests that were done. Ask your health care provider, or the department that is doing the tests, when your results will be ready. ? Keep all follow-up visits as told by your health care provider. This is important. Contact a health care provider if: ? Your pain gets worse, or you have new pain. ? You have trouble sleeping. ? You have trouble doing your normal activities. ? Your pain is not controlled with treatment. ? You have side effects from pain medicine. ? You feel weak. ? You notice any other changes that show that your condition is getting worse. Get help right away if: ? You lose feeling or have numbness in your body. ? You lose control of bowel or bladder function. ? Your pain suddenly gets much worse. ? You develop shaking or chills. ? You develop confusion. ? You develop chest pain. ? You have trouble breathing or shortness of breath. ? You pass out. ? You have thoughts about hurting yourself or others. If you ever feel like you may hurt yourself or others, or have thoughts about taking your own life, get help right away. Go to your nearest emergency department or: ? Call your local emergency services (571 in the [place] ? Call a suicide crisis helpline, such as the National Suicide Prevention Lifeline at or 261 in the [place] This is open 24 hours a day in the [place] ? Text the Crisis Text Line at 015772 (in the [place] Summary ? Chronic pain is a type of pain that lasts or keeps coming back for at least 3?6 months. ? Chronic pain may be related to an illness, injury, or other health condition. Sometimes, the cause of chronic pain is not known. ? Treatment depends on the cause and severity of your pain. ? (more content not included)... Normal [facility] ED Patient Summaryon 024 ED Patient Summary [address] [address] Patient Discharge Instructions Person Information Name: ALEJANDRA REAL Age: 27 Years Arrival Date: 09/27/2023 10:29:45 Discharge Diagnosis: Chronic pain in female pelvis; Other chronic pain Primary Care Physician: Lorri Ireland CNP Provider Information Primary Provider: Darren Lomax DO [employer] Innkeeper:Sy Pickard PA-C The exam and treatment you received in the Emergency Department were for an urgent problem and are not intended as complete care. It is important that you follow up with a doctor, nurse practitioner, or physician?s orthotics assistant for ongoing care. If your symptoms become worse or you do not improve as expected and you are unable to reach your usual health care provider, you should return to the Emergency Department. We are available 24 hours a day. ALEJANDRA REAL has been given the following list of patient education materials, prescriptions and follow-up instructions: Follow-up Instructions: With: Address: When: Lorri Ireland [address] [place] [address], [facility], [address] [place] [address] Business (1) In 3 days 09/30/2023 In the event that this physician does not participate in your insurance network, please consult with your insurance company to find a nearby participating provider. Patient Education Materials: Chronic Pain, Adult A MESSAGE TO ALL PATIENTS REGARDING OPIOIDS PRESCRIPTION OPIOIDS: WHAT YOU NEED TO KNOW Prescription opioids can be used to help relieve bzksrdpv-yq-isombb pain and are often prescribed following a surgery or injury, or for certain health conditions. These medications can be an important part of the treatment but also come with serious risks. It is important to work with your healthcare provider to make sure you are getting the safest, most effective care. WHAT ARE THE RISKS AND SIDE EFFECTS OF OPIOID USE? Prescription opioids carry serious risks of addiction and overdose, especially with prolonged use. An opioid overdose, often marked by slowed breathing, can cause sudden . The use of prescription opioids can have a number of side effects as well, even when taken as directed: ? Tolerance?meaning you might need to take more of the medication for the same pain relief ? Physical dependence?meaning you have symptoms of withdrawal when a medication is stopped ? Increased sensitivity to pain ? Constipation ? Nausea, vomiting, and dry mouth ? Sleepiness and dizziness ? Confusion ? Depression ? Low levels of testosterone that can result in lower sex drive, energy, and strength ? Itching and sweating RISKS ARE GREATER WITH: ? History of drug misuse, substance use disorder, or overdose ? Mental health conditions (such as depression or anxiety) ? Sleep apnea ? Older age (65 years and older) ? Avoid alcohol while taking prescription opioids. Also, unless specifically advised by your health care provider, medications to avoid include: ? Benzodiazepines (such as Xanax or Valium) ? Muscle relaxants (such as Soma or Flexeril) ? Hypnotics (such as Ambien or Lunesta) ? Other prescription opioids KNOW YOUR OPTIONS Talk to your health care provider about ways to manage your pain that don?t involve prescription opioids. Some of these options may actually work better and have fewer risks and side effects. Options may include: ? Pain relievers such as acetaminophen, ibuprofen, and naproxen ? Some medication that are also used for depression or seizures ? Physical therapy and exercise ? Cognitive behavioral therapy, a psychological, goal-directed approach, in which patients learn how to modify physical, behavioral, and emotional triggers of pain and stress. IF YOU ARE PRESCRIBED OPIOIDS FOR PAIN: ? Never take opioids in greater amounts or more often than prescribed. ? Follow up with your primary health care provider. o Work together to create a plan on how to manage your pain. o Talk about ways to help manage your pain that don?t involve prescription opioids. o Talk about any and all concerns and side effects. ? Help prevent misuse and abuse o Never sell or share prescription opioids. o Never use another person?s prescription opioids. ? Store prescription opioids in a secure place and out of reach of others (this may include visitors, children, friends, and family). ? Safely dispose of unused prescription opioids: Find your community drug take-back program or your pharmacy mail-back program, or flush them down the toilet, following guidance from the Food and Drug Administration (www.fda.gov/Drugs/Re sourcesForYou). ? Visit www.cdc.gov/drugoverd ose to learn about the risks of opioids abuse and overdose. ? If you believe you may be struggling with addiction, tell your health vocational childcare teacher and ask for guidance or call [facility] (more content not included)... Normal [facility] Erythrocyte distribution wid th [Ratio] by Automated countOrdered By: Neptali Esquivel on 09-27-2023 Erythrocyte distribution width (RBC) [Ratio] 13.5 % Normal 11.9-15.3 [facility] Comment on above: Performed By: #### C BC, BMP #### [facility] [address] [place] [address] [place] Erythrocytes [#/volume] in B lood by Automated countOrdered By: Neptali Esquivel on 09-27-2023 RBC (Bld) [#/Vol] 4.52 10*6/uL Normal 3.60-5.00 [facility] Comment on above: Performed By: #### C BC, BMP #### [facility] [address] [place] [id number] [facility] Glucose [Mass/volume] in Ser um or PlasmaOrdered By: Neptali Esquivel on 09-27-2023 Glucose [Mass/Vol] 96 mg/dL Normal 70-100 [facility] Comment on above: ADA recommended refe rence rangeRandom Glucose Reference Range is dependent on time and content of last meal. Glucose of more than 200 mg/dL in a nonstressed, ambulatory subject supports the diagnosis of Diabetes Mellitus. Result Comment: [place] Glucose Reference Range is dependent on time and content of last meal. Glucose of more than 200 mg/dL in a nonstressed, ambulatory subject supports the diagnosis of Diabetes Mellitus. ADA recommended reference range Performed By: #### C BC, BMP #### [address] HCG ( test) [place].rapi d Ql (U)Ordered By: Neptali Esquivel on 09-27-2023 HCG ( test) Ql (U) Negative [facility] HCG,Urineon 09-27-2023 Beta HCG ( test) Ql (U) Negative Normal [facility] Comment on above: Order Comment: Name Collection Type:: Clean-Voided Midstream Result Comment: PERF ORMED BY: [place] [address] PATHOLOGIST [employer] ALEXANDER SANDERS M.D. Performed By: #### U HCG, UA #### [address] Hematocrit [Volume Fraction] of Blood by Automated countOrdered By: Neptali Esquivel on 09-27-2023 Hematocrit (Bld) [Volume fraction] 40.3 % Normal 34.0-46.4 [facility] Comment on above: Performed By: #### C BC, BMP #### [address] Hemoglobin [Mass/volume] in BloodOrdered By: Neptali Esquivel on 09-27-2023 Hemoglobin (Bld) [Mass/Vol] 13.7 g/dL Normal 11.8-15.4 [facility] Comment on above: Performed By: #### C BC, BMP #### [address] Ketones Auto test strip (U) [Mass/Vol]Ordered By: Neptali Esquivel on 09-27-2023 Ketones (U) [Mass/Vol] Negative Negative [facility] Leukocytes [#/volume] correc rosy for nucleated erythrocytes in Blood by Automated counOrdered By: Neptali Esquivel on 09-27-2023 WBC corrected for nucl RBC Auto (Bld) [#/Vol] 6.7 10*3/uL 3.8-11.6 [facility] Leukocytes [#/volume] in Blo od by Automated countOrdered By: Neptali Esquivel on 09-27-2023 WBC (Bld) [#/Vol] 6.7 10*3/uL Normal 3.8-11.6 [facility] Comment on above: Performed By: #### C BC, BMP #### [place] [address] [place] Lymphocytes [#/volume] in Bl ood by Automated countOrdered By: Neptali Esquivel on 09-27-2023 Lymphocytes (Bld) [#/Vol] 1.4 10*3/uL Normal 1.00-4.8 [facility] Comment on above: Performed By: #### C JOY, BMP #### [address] Lymphocytes/100 leukocytes i n Blood by Automated countOrdered By: Neptali Esquivel on 09-27-2023 Lymphocytes/100 WBC (Bld) 21.2 % Normal . [facility] Comment on above: Performed By: #### C BC, BMP #### [address] MCH [Entitic mass] by Automa rosy countOrdered By: Neptali Esquivel on 09-27-2023 MCH (RBC) [Entitic mass] 30.3 pg Normal 24.7-34.3 [facility] Comment on above: Performed By: #### C BC, BMP #### [address] MCHC Auto (RBC) [Mass/Vol]Or dered By: Neptali Esquivel on 09-27-2023 MCHC (RBC) [Mass/Vol] 34.0 g/dL 32.0-35.0 [facility] MCV [Entitic volume] by Auto mated countOrdered By: Neptali Esquivel on 09-27-2023 MCV (RBC) [Entitic vol] 89.1 fL Normal 80-100 [facility] Comment on above: Performed By: #### C BC, BMP #### [address] [place] [address] [place] Monocyte distribution width [Entitic volume] in Blood by AutomatedOrdered By: Neptali Esquivel on 09-27-2023 Monocyte distribution width Auto (Bld) [Entitic vol] 16.50 % 0.00-20.00 [facility] Neutrophils [#/volume] in Bl ood by Automated countOrdered By: Neptali Esquivel on 09-27-2023 Neutrophils (Bld) [#/Vol] 4.9 10*3/uL Normal 1.8-7.7 [facility] Comment on above: Performed By: #### C JOY, BMP #### [facility] [address] [place] [address] Nitrite Test strip Ql (U)Ord ered By: Neptali Esquivel on 09-27-2023 Nitrite Ql (U) Negative Negative [facility] No Panel InformationOrdered By: Neptali Esquivel on 09-27-2023 Estimated GFR (CKD-EPI) > 60.0 mL/Min [facility] Creatinine Clearance (Chem 93.76 [facility] Nucleated erythrocytes [Pres ence] in Blood by Automated countOrdered By: Neptali Esquivel on 09-27-2023 Nucleated RBC Auto Ql (Bld) 0.2 /100{WBC} 0-0.5 [facility] Platelet mean volume [Entiti c volume] in Blood by Automated countOrdered By: Neptali Esquivel on 09-27-2023 Platelet mean volume (Bld) [Entitic vol] 7.5 fL Normal 6.3-10.7 [facility] Comment on above: Performed By: #### C JOY, BMP #### [facility] [address] [place] [address] [place] Platelets [#/volume] in Bloo d by Automated countOrdered By: Neptali Esquivel on 09-27-2023 Platelets (Bld) [#/Vol] 375 10*3/uL Normal 150-450 [facility] Comment on above: Performed By: #### C JOY, BMP #### [facility] [address] [place] [address] [place] Potassium [Moles/volume] in Serum or PlasmaOrdered By: Neptali Esquivel on 09-27-2023 Potassium [Moles/Vol] 3.6 mmol/L Normal 3.5-5.1 [facility] Comment on above: Performed By: #### C JOY, BMP #### [address] Protein Auto test strip (U) [Mass/Vol]Ordered By: Neptali Esquivel on 09-27-2023 Protein (U) [Mass/Vol] Negative Negative [facility] Serum or plasma anion gap de terminationOrdered By: Neptali Esquivel on 09-27-2023 Anion gap [Moles/Vol] 8.3 mmol/L Normal 6.0-15.0 [facility] Comment on above: Performed By: #### C JOY, BMP #### [address] Sodium [Moles/volume] in Ser um or PlasmaOrdered By: Neptali Esquivel on 09-27-2023 Sodium [Moles/Vol] 140 mmol/L Normal 136-145 [facility] Comment on above: Performed By: #### C JOY, BMP #### [address] Specific gravity Auto test s trip (U) [Rel density]Ordered By: Neptali Esquivel on 09-27-2023 Specific gravity (U) [Rel density] 1.007 1.001-1.030 [facility] Urea nitrogen [Mass/volume] in Serum or PlasmaOrdered By: Neptali Esquivel on 09-27-2023 Urea nitrogen [Mass/Vol] 7 mg/dL Normal 7-25 [facility] Comment on above: Performed By: #### C JOY, BMP #### [address] Urinalysison 09-27-2023 Appearance (U) Clear Normal Clear [facility] Comment on above: Order Comment: Name Collection Type:: Clean-Voided Midstream Performed By: #### U HCG, UA #### [address] Bilirubin,Urine Negative Normal Negative [facility] Comment on above: Order Comment: Name Collection Type:: Clean-Voided Midstream Performed By: #### U HCG, UA #### [facility] [address] [id number] [place] Glucose Ql (U) Normal Normal Normal [facility] Comment on above: Order Comment: Name Collection Type:: Clean-Voided Midstream Performed By: #### U HCG, UA #### [facility] [address] [place] [id number] [place] Ketones Ql (U) Negative Normal Negative [facility] Comment on above: Order Comment: Name Collection Type:: Clean-Voided Midstream Performed By: #### U HCG, UA #### [facility] [address] [place] [address] [place] Leukocyte esterase Test strip Ql (U) Negative Normal Negative [facility] Comment on above: Order Comment: Name Collection Type:: Clean-Voided Midstream Performed By: #### U HCG, UA #### [facility] [address] [place] [address] [place] Nitrite,Urine Negative Normal Negative [facility] Comment on above: Order Comment: Name Collection Type:: Clean-Voided Midstream Performed By: #### U HCG, UA #### [facility] [address] [place] [id number] [place] Occult Blood,Urine Negative Normal Negative [facility] Comment on above: Order Comment: Name Collection Type:: Clean-Voided Midstream Performed By: #### U HCG, UA #### [facility] [address] [place] [address] [place] Protein,Urine Negative Normal Negative [facility] Comment on above: Order Comment: Name Collection Type:: Clean-Voided Midstream Performed By: #### U HCG, UA #### [facility] [address] [place] [id number] [place] Specificy [place],Urine 1.007 Normal 1.001-1.030 [facility] Comment on above: Order Comment: Name Collection Type:: Clean-Voided Midstream Performed By: #### U HCG, UA #### [facility] [address] [place] [place] [id number] [place] Urobilinogen,Urine Normal Normal Normal [facility] Comment on above: Order Comment: Name Collection Type:: Clean-Voided Midstream Performed By: #### U HCG, UA #### [facility] [address] [place] [id number] [facility] Urine clarity by refractomet ry automatedOrdered By: Neptali Esquivel on 09-27-2023 Clarity Refractometry automated (U) Clear Clear [facility] Urine glucose measurement by automated test strip (mass/volume)Ordered By: Neptali Esquivel on 09-27-2023 Glucose Auto test strip (U) [Mass/Vol] Normal mg/dL Normal [facility] Urine hemoglobin detection b y automated test stripOrdered By: Neptali Esquivel on 09-27-2023 Hemoglobin Auto test strip Ql (U) Negative Negative [facility] Urine leukocyte esterase det ection by automated test stripOrdered By: Neptali Esquivel on 09-27-2023 Leukocyte esterase Auto test strip Ql (U) Negative Negative [facility] Urine pH measurement by auto mated test stripOrdered By: Neptali Esquivel on 09-27-2023 pH (U) 7.0 [pH] Normal 5.0-9.0 [facility] Comment on above: Order Comment: Name Collection Type:: Clean-Voided Midstream Performed By: #### U HCG, UA #### [facility] [address] [place] [id number] [facility] Urobilinogen Auto test strip (U) [Mass/Vol]Ordered By: Neptali Esquivel on 09-27-2023 Urobilinogen (U) [Mass/Vol] Normal mg/dL Normal [facility] Consent for Treatmenton 08-28 Consent for Treatment [id number] .[id number] Normal [facility] Discharge Instructionson Discharge Instructions [id number] 1.00TIFF Normal [facility] ED Clinical Summaryon 2023 ED Clinical Summary [address] [address] ED Clinical Summary Person Information Name: ALEJANDRA REAL/[facility] Age: 27 Years : 1995 Sex: Female Language: Uruguayan PCP: Lorri Ireland CNP Marital Status: Single Phone: [phone] Visit Id: Visit Reason: Dysuria; Abdominal pain; URINARY DISCOMFORT AND PAIN IN [place] Speciality: Acuity: 4 Enc Type: Emergency Med Service: Emergency Arrival: 09/26/2023 15:06:51 Discharge: 09/26/2023 16:26:00 LOS: 000 01:20 Checkin: 09/26/2023 15:06:51 Checkout: 09/26/2023 16:26:00 Dispo Type: Home (Routine DC) EVENTS: Event Name Event Status Request Date/Time Start Date/Time Complete Date/Time Arrive Complete 09/26/2023 15:06:51 09/26/2023 15:06:51 09/26/2023 15:06:51 Document Home Meds Request 09/26/2023 15:06:51 Triage Complete 09/26/2023 15:06:51 09/26/2023 15:23:15 09/26/2023 15:23:15 Bed Assign Complete 09/26/2023 15:16:40 09/26/2023 15:16:40 09/26/2023 15:16:40 Dr Exam Complete 09/26/2023 15:16:40 09/26/2023 15:19:25 09/26/2023 15:19:25 RN Exam Complete 09/26/2023 15:16:40 09/26/2023 15:24:54 09/26/2023 15:24:54 Registration Complete 09/26/2023 15:19:25 09/26/2023 15:25:49 09/26/2023 15:25:49 Pending Labs Complete 09/26/2023 15:19:57 09/26/2023 15:44:36 Lab Complete 09/26/2023 15:19:57 09/26/2023 15:42:27 Urine Collect Complete 09/26/2023 15:19:57 09/26/2023 15:42:27 Reg Complete Request 09/26/2023 15:25:49 Reg Bed Request Complete 09/26/2023 15:25:49 09/26/2023 15:25:49 09/26/2023 15:25:49 Dr Exam Complete 09/26/2023 15:25:58 09/26/2023 15:25:58 09/26/2023 15:25:58 Registration Request 09/26/2023 15:25:58 Discharge Complete 09/26/2023 16:17:47 09/26/2023 16:26:05 09/26/2023 16:26:05 Transfer Complete 09/26/2023 16:26:05 09/26/2023 16:26:05 09/26/2023 16:26:05 ADDRESS: [address] [facility] [phone] PHYS DOC NOTES: MEDICAL INFORMATION: Prescriptions Given: Medications to Continue Taking That Have Changed [id number], [address] [place] [phone], [phone] START: phenazopyridine (Pyridium 200 mg Tab) 1 Tablets By Mouth 3 times a day for 7 Days. Refills: 0. Other Medications START: phenazopyridine (Pyridium 100 mg Tab) 1 Tablets By Mouth 3 times a day for 3 Days. Refills: 0. Medications to Continue with No Changes Other Medications albuterol (Albuterol (Eqv-ProAir HFA) 90 mcg/inh inhalation aerosol) Inhalation every 6 hours. dicyclomine (Bentyl 10 mg Cap) 1 Capsules By Mouth 4 times a day as needed Other (see comment). For abdominal cramping. Refills: 0. Misc Prescription (BACLOFEN 10 MG TABLET) 0. multivitamin with iron (Iron 100 Plus) By Mouth every day. naproxen (Naprosyn 500 mg Tab) 1 Tablets By Mouth 2 times a day. Refills: 0. ondansetron (Zofran ODT 4 mg Tab-Dis) 1 Tablets By Mouth 3 times a day. Refills: 0. tramadol (traMADOL 50 mg Tab) 1 Tablets By Mouth every 8 hours as needed as needed for pain. Refills: 0. tramadol (traMADOL 50 mg Tab) 1 Tablets By Mouth every 6 hours as needed for pain for 3 Days. Refills: 0. PATIENT EDUCATION INFORMATION: Instructions: Dysuria Follow up: With: Address: When: Lorri Ireland [address] [place] [address], [facility], [address] [place] [phone] Business (1) In 3 days 09/29/2023 DIAGNOSIS: 1:Dysuria Normal [facility] ED Note-Physicianon 09-26-19 ED Note-Physician Basic Information Time Seen: Daxa Donis PA-C 09/26/2023 15:19 Chief Complaint patient presents with LLQ abdominal pain with dysuria History of Present Illness This patient presents emergency department chief complaint of urinary burning. She states she has a diagnosis of pelvic congestion and is set up for a procedure to be performed by Dr. Gooden. She denies any fevers chills or sweats. She denies any constipation or diarrhea. She denies any nausea or vomiting. The patient states she is currently taking tramadol as needed which helps control her pain. Review of Systems Constitutional: Denies weight loss, fevers, chills, sweats, malaise Eyes: Denies visual changes, eye pain, double vision, scotomas, floaters ENT: Denies runny nose, epistaxis, sinus pain, ear pain, ringing in ears, tooth ache, sore throat, pain with swallowing Cardiovascular: Denies chest pain, shortness of breath, orthopnea, edema, palpitations, loss of consciousness, claudication Respiratory: Denies cough, sputum production, wheezing, hemoptysis, shortness of breath, dyspnea on exertion Gastrointestinal: Denies abdominal pain, unintentional weight loss, difficulty swallowing, indigestion, bloating, cramping, loss of appetite, nausea, vomiting, diarrhea, constipation, hematochezia, melena Genitourinary: Denies any incontinence of urine, dysuria, hematuria, nocturia, polyuria, hesitancy, frequency. + burning Musculoskeletal: Denies joint pain, morning stiffness, joint swelling, decreased range of motion, crepitus Integumentary: Denies any pruritus, rashes, lesions, wounds, petechiae Neurologic: Denies any changes in sight, smell, hearing, taste, seizures, headache, paresthesia, numbness, weakness, balance disturbance Psychiatric denies any depression, change in sleep patterns, anxiety, difficulty concentrating, paranoia, anhedonia, lack of energy, bruce Hematologic/lymphatic : Denies any purpura, petechiae, excessive bleeding, bruising Physical Exam Vitals & Measurements T: 36.7 ?C(Oral) HR: 78(Peripheral) RR: 18 BP: 137/80 SpO2: 100% HT: 160 cm WT: 65 kg BMI: 25.39 Vital Signs reviewed and noted. General: Alert, no acute distress, patient resting comfortably Skin: warm, intact, no pallor noted Head: Normocephalic, atraumatic Eye: Normal conjunctiva Cardiac: Normal peripheral perfusion Respiratory: No acute distress Abdomen: Soft, nontender, bowel sounds are present active and normal. Musculoskeletal: No deformity, full ROM. Neurological: alert and oriented, normal sensory and motor observed. Psychiatric: Cooperative Medical Decision Making MEDICAL DECISION MAKING Number and Complexity of Problems Differential Diagnosis: Acute lower urinary tract infection, chronic pelvic pain secondary to pelvic congestion. [facility] Data External documents reviewed: OARRS Report My EKG interpretation: Noted in chart if applicable My CT interpretation: Noted in chart if applicable My X-ray interpretation: Noted in chart if applicable My Ultrasound interpretation: Not applicable Decision rules/scores evaluated: Noted in chart if applicable Discussed with: Not applicable Treatment and Disposition ED Course: Patient was interviewed and examined. I reviewed patient's OARRS report. Patient has had 4 prescriptions for tramadol filled September 13, September 16, September 19, and September 23. UA was unremarkable. I discussed the results of the workup with the patient. I discussed with her we will provide her with Pyridium for her discomfort. I will not provide the patient any further tramadol as the risks outweigh any potential benefit given the amount of tablets that the patient is using. There is significant increase in the risk of seizure. I discussed the discharge diagnosis and plan of care with the patient. Patient will be discharged home in stable condition. She is to follow-up with Dr. Gooden and or her PMD. She is to return to the emergency department for any further problems or concerns. I discussed the discharge diagnosis and plan of care with the patient. She is in agreement with the plan of care. Shared decision making: Code status: Not applicable Assessment/Plan 1. Dysuria (R30.0: Dysuria) Orders: phenazopyridine, 200 mg = 1 tab(s), Oral, TID, X 7 day(s), # 21 tab(s), Refills(s) 0, Pharmacy: [id number], 160, cm, 09/26/23 15:23:00 EDT, Height/Length Dosing, 65, kg, 09/26/23 15:23:00 EDT, Weight Dosing U Beta Hcg Qual UA with Cult Rflx Disposition Plan Patient Discharge Condition Stable Discharge Disposition Home Discharge Prescription List Prescriptions Pyridium 200 mg Tab, 200 mg= 1 tab(s), Oral, TID Follow-up With When Contact Information Lorri Ireland In 3 days 09/29/2023 EDT [address] [facility], [address] [place] [id number] [employer] (1) Additional Instructions: Patient Education Dysuria Attestation I performed a substantive part of the MDM during the patient?s E/M visit. I personally made or a (more content not included)... Normal [facility] Comment on above: Result Comment: Elec tronically Signed By: Daxa Donis PA-C\.br\Date and Time Signed: 09/26/23 16:36 EDT\.br\Electronically Co-Signed By: Darren Lomax DO\.br\Date and Time Co-Signed: 09/26/23 16:38 EDT ED Patient Education Noteon 09-26-2023 ED Patient Education Note Urology Dysuria Dysuria is pain or discomfort during urination. The pain or discomfort may be felt in the part of the body that drains urine from the bladder (urethra) or in the surrounding tissue of the genitals. The pain may also be felt in the groin area, lower abdomen, or lower back. You may have to urinate frequently or have the sudden feeling that you have to urinate (urgency). Dysuria can affect anyone, but it is more common in females. Dysuria can be caused by many different things, including: ? Urinary tract infection. ? Kidney stones or bladder stones. ? Certain STIs (sexually transmitted infections), such as chlamydia. ? Dehydration. ? Inflammation of the tissues of the vagina. ? Use of certain medicines. ? Use of certain soaps or scented products that cause irritation. Follow these instructions at home: Medicines ? Take txmg-gda-bethdru and prescription medicines only as told by your health care provider. ? If you were prescribed an antibiotic medicine, take it as told by your health care provider. Do not stop taking the antibiotic even if you start to feel better. Eating and drinking ? Drink enough fluid to keep your urine pale yellow. ? Avoid caffeinated beverages, tea, and alcohol. These beverages can irritate the bladder and make dysuria worse. In males, alcohol may irritate the prostate. General instructions ? Watch your condition for any changes. ? Urinate often. Avoid holding urine for long periods of time. ? If you are female, you should wipe from front to back after urinating or having a bowel movement. Use each piece of toilet paper only once. ? Empty your bladder after sex. ? Keep all follow-up visits. This is important. ? If you had any tests done to find the cause of dysuria, it is up to you to get your test results. Ask your health care provider, or the department that is doing the test, when your results will be ready. Contact a health care provider if: ? You have a fever. ? You develop pain in your back or sides. ? You have nausea or vomiting. ? You have blood in your urine. ? You are not urinating as often as you usually do. Get help right away if: ? Your pain is severe and not relieved with medicines. ? You cannot eat or drink without vomiting. ? You are confused. ? You have a rapid heartbeat while resting. ? You have shaking or chills. ? You feel extremely weak. Summary ? Dysuria is pain or discomfort while urinating. Many different conditions can lead to dysuria. ? If you have dysuria, you may have to urinate frequently or have the sudden feeling that you have to urinate (urgency). ? Watch your condition for any changes. Keep all follow-up visits. ? Make sure that you urinate often and drink enough fluid to keep your urine pale yellow. This information is not intended to replace advice given to you by your health care provider. Make sure you discuss any questions you have with your health care provider. Document Revised: 11/24/2020 Document Reviewed: 11/24/2020 Elsevier Patient Education ? 2022 [employer] Normal [facility] ED Patient Summaryon 024 ED Patient Summary [address] [address] Patient Discharge Instructions Person Information Name: ALEJANDRA REAL Age: 27 Years Arrival Date: 09/26/2023 15:06:51 Discharge Diagnosis: 1:Dysuria Primary Care Physician: Lorri Ireland CNP Provider Information Primary Provider: Darren Lomax DO [employer] Innkeeper:None The exam and treatment you received in the Emergency Department were for an urgent problem and are not intended as complete care. It is important that you follow up with a doctor, nurse practitioner, or physician?s orthotics assistant for ongoing care. If your symptoms become worse or you do not improve as expected and you are unable to reach your usual health care provider, you should return to the Emergency Department. We are available 24 hours a day. ALEJANDRA REAL has been given the following list of patient education materials, prescriptions and follow-up instructions: Follow-up Instructions: With: Address: When: Lorri Ireland [address] [place] [address], [address] [place] [address] [facility] (1) In 3 days 09/29/2023 In the event that this physician does not participate in your insurance network, please consult with your insurance company to find a nearby participating provider. Patient Education Materials: Dysuria A MESSAGE TO ALL PATIENTS REGARDING OPIOIDS PRESCRIPTION OPIOIDS: WHAT YOU NEED TO KNOW Prescription opioids can be used to help relieve kdolixmc-xt-ahyern pain and are often prescribed following a surgery or injury, or for certain health conditions. These medications can be an important part of the treatment but also come with serious risks. It is important to work with your healthcare provider to make sure you are getting the safest, most effective care. WHAT ARE THE RISKS AND SIDE EFFECTS OF OPIOID USE? Prescription opioids carry serious risks of addiction and overdose, especially with prolonged use. An opioid overdose, often marked by slowed breathing, can cause sudden . The use of prescription opioids can have a number of side effects as well, even when taken as directed: ? Tolerance?meaning you might need to take more of the medication for the same pain relief ? Physical dependence?meaning you have symptoms of withdrawal when a medication is stopped ? Increased sensitivity to pain ? Constipation ? Nausea, vomiting, and dry mouth ? Sleepiness and dizziness ? Confusion ? Depression ? Low levels of testosterone that can result in lower sex drive, energy, and strength ? Itching and sweating RISKS ARE GREATER WITH: ? History of drug misuse, substance use disorder, or overdose ? Mental health conditions (such as depression or anxiety) ? Sleep apnea ? Older age (65 years and older) ? Avoid alcohol while taking prescription opioids. Also, unless specifically advised by your health care provider, medications to avoid include: ? Benzodiazepines (such as Xanax or Valium) ? Muscle relaxants (such as Soma or Flexeril) ? Hypnotics (such as Ambien or Lunesta) ? Other prescription opioids KNOW YOUR OPTIONS Talk to your health care provider about ways to manage your pain that don?t involve prescription opioids. Some of these options may actually work better and have fewer risks and side effects. Options may include: ? Pain relievers such as acetaminophen, ibuprofen, and naproxen ? Some medication that are also used for depression or seizures ? Physical therapy and exercise ? Cognitive behavioral therapy, a psychological, goal-directed approach, in which patients learn how to modify physical, behavioral, and emotional triggers of pain and stress. IF YOU ARE PRESCRIBED OPIOIDS FOR PAIN: ? Never take opioids in greater amounts or more often than prescribed. ? Follow up with your primary health care provider. o Work together to create a plan on how to manage your pain. o Talk about ways to help manage your pain that don?t involve prescription opioids. o Talk about any and all concerns and side effects. ? Help prevent misuse and abuse o Never sell or share prescription opioids. o Never use another person?s prescription opioids. ? Store prescription opioids in a secure place and out of reach of others (this may include visitors, children, friends, and family). ? Safely dispose of unused prescription opioids: Find your community drug take-back program or your pharmacy mail-back program, or flush them down the toilet, following guidance from the Food and Drug Administration (www.fda.gov/Drugs/Re sourcesForYou). ? Visit www.cdc.gov/drugoverd ose to learn about the risks of opioids abuse and overdose. ? If you believe you may be struggling with addiction, tell your health vocational childcare teacher and ask for guidance or call SAMHSA?S National Helpline at 4-933-751-HELP. v Source: US Department of Health and (more content not included)... [facility] SEROLOGYOrdered By: Della cuellar 09-26-2023 HCG.beta subunit (U) [Moles/Vol] Negative Normal [facility] [place] Sero U BetaHcg Qualon 09-26-2023 HCG.beta subunit (U) [Moles/Vol] Negative Normal [facility] Comment on above: Performed By: #### 2 [id number] #### [facility] [address] [place] [address] UA with Cult Rflxon 09-26-19 24 Bilirubin Ql (U) Negative Normal Negative [facility] Comment on above: Performed By: #### 4 [id number] ####[facility] [address] [facility] [place] [address] Clarity (U) Clear Normal Clear [facility] Comment on above: Performed By: #### 4 [id number] ####[facility] [address] [facility] [place] [address] Color (U) Colorless Abnormal Yellow [facility] Comment on above: Result Comment: Micr oscopic readings are only performed on those samples that meet specific criteria set forth by [facility]. Performed By: #### 4 [id number] ####[facility] [address] [facility] [place] [address] Glucose Ql (U) Negative Normal Negative [facility] Comment on above: Performed By: #### 4 [id number] ####[facility] [address] [facility] [place] [address] Hemoglobin Auto test strip (U) [Mass/Vol] Negative Normal Negative [facility] Comment on above: Performed By: #### 4 [id number] ####[facility] [address] [place] [address] Ketones Auto test strip Ql (U) Negative Normal Negative [facility] Comment on above: Performed By: #### 4 [id number] ####[facility] [address] [place] [address] Leukocyte esterase Auto test strip Ql (U) Negative Normal Negative [facility] Comment on above: Performed By: #### 4 [id number] ####[address] [address] Nitrite Auto test strip Ql (U) Negative Normal Negative [facility] Comment on above: Performed By: #### 4 [id number] ####[address] [address] pH (U) 7.5 [pH] Invalid Interpretation Code 5.0-9.0 [facility] Comment on above: Performed By: #### 4 [id number] ####[place] [id number] Protein Ql (U) Negative Normal Negative [facility] Comment on above: Performed By: #### 4 [id number] ####[place] [id number] Specific gravity (U) [Rel density] 1.008 Invalid Interpretation Code 1.005-1.030 [facility] Comment on above: Performed By: #### 4 [id number] ####[place] [id number] Urobilinogen (U) [Mass/Vol] Negative Normal Negative [facility] Comment on above: Performed By: #### 4 [id number] ####[place] [id number] Type of Urine collection method Clean Catch Normal [facility] Comment on above: Performed By: #### 4 [id number] ####[place] [id number] URINALYSISOrdered By: SYSTEM SYSTEM on 09-26-2023 Bilirubin Ql (U) Negative Normal Negativemg/ d L [facility] UA Auto SS Clarity (U) Clear (09/26/23 3:25 PM) Normal Clear [facility] UA Auto SS Color (U) Colorless 1 *ABN* (09/26/23 3:25 PM) Invalid Interpretation Code Yellow [facility]A Auto SS Comment on above: Interpretive Data: M icroscopic readings are only performed on those samples that meet specific criteria set forth by [facility]. Glucose Ql (U) Negative Normal Negativemg/d L [facility] UA Auto SS Hemoglobin Auto test strip (U) [Mass/Vol] Negative Normal Negativemg/d L [facility] UA Auto SS Ketones Auto test strip Ql (U) Negative Normal Negativemg/d L [facility] UA Auto SS Leukocyte esterase Auto test strip Ql (U) Negative Normal NegativeLeu/ uL [facility] UA Auto SS Nitrite Auto test strip Ql (U) Negative Normal Negativemg/d L [facility] UA Auto SS pH (U) 7.5 *NA* (09/26/23 3:25 PM) Invalid Interpretation Code 5.0 - 9.0 [facility] UA Auto SS Protein Ql (U) Negative Normal Negativemg/d L [facility] UA Auto SS Specific gravity (U) [Rel density] 1.008 *NA* (09/26/23 3:25 PM) Invalid Interpretation Code 1.005 - 1.030 [facility] UA Auto SS Urobilinogen (U) [Mass/Vol] Negative Normal Negativemg/d L [facility] UA Auto SS URINALYSISOrdered By: Enrike Donis on 09-26-2023 UA Spec Desc Clean Catch (09/26/23 3:25 PM) Normal [facility] UA Auto SS Work Phone: Insurance Correspondenceon 0 09-25-2023 Insurance Correspondence [id number] #1.00TIFF Normal [facility] Consent for Treatmenton 08-27 Consent for Treatment [id number]#1 .00TIFF Normal [facility] Discharge Instructionson Discharge Instructions [id number] 1.00TIFF Normal [facility] ED Clinical Summaryon 2023 ED Clinical Summary [address] [address] ED Clinical Summary Person Information Name: ALEJANDRA REAL [facility]zi[facility] Age: 27 Years : 1995 Sex: Female Language: Uruguayan PCP: Lorri Ireland CNP Marital Status: Single Phone: [phone] Visit Id: Visit Reason: Dysuria; Abdominal pain; ABDOMINAL PAIN / BURNING SENSATION WHEN URINATING Speciality: Acuity: 4 Enc Type: Emergency Med Service: Emergency Arrival: 09/24/2023 15:26:09 Discharge: 09/24/2023 16:32:46 LOS: 000 01:06 Checkin: 09/24/2023 15:26:09 Checkout: 09/24/2023 16:32:46 Dispo Type: Home (Routine DC) EVENTS: Event Name Event Status Request Date/Time Start Date/Time Complete Date/Time Arrive Complete 09/24/2023 15:26:09 09/24/2023 15:26:09 09/24/2023 15:26:09 Document Home Meds Request 09/24/2023 15:26:09 Triage Complete 09/24/2023 15:26:09 09/24/2023 15:37:28 09/24/2023 15:37:28 Dr Exam Complete 09/24/2023 15:28:13 09/24/2023 15:28:13 09/24/2023 15:28:13 Registration Complete 09/24/2023 15:28:13 09/24/2023 15:29:26 09/24/2023 15:29:26 Reg Complete Request 09/24/2023 15:29:26 Reg Bed Request Complete 09/24/2023 15:29:26 09/24/2023 15:29:26 09/24/2023 15:29:26 Bed Assign Complete 09/24/2023 15:32:54 09/24/2023 15:32:54 09/24/2023 15:32:54 RN Exam Complete 09/24/2023 15:32:54 09/24/2023 15:38:38 09/24/2023 15:38:38 Pending Labs Complete 09/24/2023 15:51:10 09/24/2023 16:18:10 Discharge Complete 09/24/2023 16:22:44 09/24/2023 16:32:50 09/24/2023 16:32:50 Transfer Complete 09/24/2023 16:32:50 09/24/2023 16:32:50 09/24/2023 16:32:50 ADDRESS: [address] [facility] [phone] PHYS DOC NOTES: MEDICAL INFORMATION: Prescriptions Given: New Medications [id number], [address] [place], [place] [id number], [phone] phenazopyridine (Pyridium 100 mg Tab) 1 Tablets By Mouth 3 times a day for 3 Days. Refills: 0. Medications to Continue Taking That Have Changed [id number], [address] [place] [address], [place] [id number], [phone] START: tramadol (traMADOL 50 mg Tab) 1 Tablets By Mouth every 6 hours as needed for pain for 3 Days. Refills: 0. Other Medications START: tramadol (traMADOL 50 mg Tab) 1 Tablets By Mouth every 8 hours as needed as needed for pain. Refills: 0. Medications to Continue with No Changes Other Medications albuterol (Albuterol (Eqv-ProAir HFA) 90 mcg/inh inhalation aerosol) Inhalation every 6 hours. dicyclomine (Bentyl 10 mg Cap) 1 Capsules By Mouth 4 times a day as needed Other (see comment). For abdominal cramping. Refills: 0. Misc Prescription (BACLOFEN 10 MG TABLET) 0. multivitamin with iron (Iron 100 Plus) By Mouth every day. naproxen (Naprosyn 500 mg Tab) 1 Tablets By Mouth 2 times a day. Refills: 0. ondansetron (Zofran ODT 4 mg Tab-Dis) 1 Tablets By Mouth 3 times a day. Refills: 0. PATIENT EDUCATION INFORMATION: Instructions: Dysuria Follow up: With: Address: When: Fatoumata Gooden [address] [place] [address] Business (1) In 3 days 09/27/2023 Comments: Call Dr for diagnosis based follow up With: Address: When: Lorri Ireland [address] [facility], [facility], [address] [place] [address] Business (1) In 3 days 09/27/2023 Comments: Call Dr for diagnosis based follow up DIAGNOSIS: Dysuria Normal [facility] ED Patient Education Noteon 09-24-2023 ED Patient Education Note Urology Dysuria Dysuria is pain or discomfort during urination. The pain or discomfort may be felt in the part of the body that drains urine from the bladder (urethra) or in the surrounding tissue of the genitals. The pain may also be felt in the groin area, lower abdomen, or lower back. You may have to urinate frequently or have the sudden feeling that you have to urinate (urgency). Dysuria can affect anyone, but it is more common in females. Dysuria can be caused by many different things, including: ? Urinary tract infection. ? Kidney stones or bladder stones. ? Certain STIs (sexually transmitted infections), such as chlamydia. ? Dehydration. ? Inflammation of the tissues of the vagina. ? Use of certain medicines. ? Use of certain soaps or scented products that cause irritation. Follow these instructions at home: Medicines ? Take bylo-krd-davczji and prescription medicines only as told by your health care provider. ? If you were prescribed an antibiotic medicine, take it as told by your health care provider. Do not stop taking the antibiotic even if you start to feel better. Eating and drinking ? Drink enough fluid to keep your urine pale yellow. ? Avoid caffeinated beverages, tea, and alcohol. These beverages can irritate the bladder and make dysuria worse. In males, alcohol may irritate the prostate. General instructions ? Watch your condition for any changes. ? Urinate often. Avoid holding urine for long periods of time. ? If you are female, you should wipe from front to back after urinating or having a bowel movement. Use each piece of toilet paper only once. ? Empty your bladder after sex. ? Keep all follow-up visits. This is important. ? If you had any tests done to find the cause of dysuria, it is up to you to get your test results. Ask your health care provider, or the department that is doing the test, when your results will be ready. Contact a health care provider if: ? You have a fever. ? You develop pain in your back or sides. ? You have nausea or vomiting. ? You have blood in your urine. ? You are not urinating as often as you usually do. Get help right away if: ? Your pain is severe and not relieved with medicines. ? You cannot eat or drink without vomiting. ? You are confused. ? You have a rapid heartbeat while resting. ? You have shaking or chills. ? You feel extremely weak. Summary ? Dysuria is pain or discomfort while urinating. Many different conditions can lead to dysuria. ? If you have dysuria, you may have to urinate frequently or have the sudden feeling that you have to urinate (urgency). ? Watch your condition for any changes. Keep all follow-up visits. ? Make sure that you urinate often and drink enough fluid to keep your urine pale yellow. This information is not intended to replace advice given to you by your health care provider. Make sure you discuss any questions you have with your health care provider. Document Revised: 11/24/2020 Document Reviewed: 11/24/2020 Elsevier Patient Education ? 2022 [employer]. Normal [facility] ED Patient Summaryon 024 ED Patient Summary [place] [id number] Patient Discharge Instructions Person Information Name: ALEJANDRA REAL Age: 27 Years Arrival Date: 09/24/2023 15:26:09 Discharge Diagnosis: Dysuria Primary Care Physician: Lorri Ireland CNP Provider Information Primary Provider: [facility] [employer] Innkeeper:None The exam and treatment you received in the Emergency Department were for an urgent problem and are not intended as complete care. It is important that you follow up with a doctor, nurse practitioner, or physician?s orthotics assistant for ongoing care. If your symptoms become worse or you do not improve as expected and you are unable to reach your usual health care provider, you should return to the Emergency Department. We are available 24 hours a day. ALEJANDRA REAL has been given the following list of patient education materials, prescriptions and follow-up instructions: Follow-up Instructions: With: Address: When: Fatoumata Gooden [address] [place] [phone] Business (1) In 3 days 09/27/2023 Comments: Call Dr for diagnosis based follow up With: Address: When: Lorri Ireland [address] [place] [address], [facility], [address] [place] [address] Business (1) In 3 days 09/27/2023 Comments: Call Dr for diagnosis based follow up In the event that this physician does not participate in your insurance network, please consult with your insurance company to find a nearby participating provider. Patient Education Materials: Dysuria A MESSAGE TO ALL PATIENTS REGARDING OPIOIDS PRESCRIPTION OPIOIDS: WHAT YOU NEED TO KNOW Prescription opioids can be used to help relieve oztknmna-ev-atmmtj pain and are often prescribed following a surgery or injury, or for certain health conditions. These medications can be an important part of the treatment but also come with serious risks. It is important to work with your healthcare provider to make sure you are getting the safest, most effective care. WHAT ARE THE RISKS AND SIDE EFFECTS OF OPIOID USE? Prescription opioids carry serious risks of addiction and overdose, especially with prolonged use. An opioid overdose, often marked by slowed breathing, can cause sudden . The use of prescription opioids can have a number of side effects as well, even when taken as directed: ? Tolerance?meaning you might need to take more of the medication for the same pain relief ? Physical dependence?meaning you have symptoms of withdrawal when a medication is stopped ? Increased sensitivity to pain ? Constipation ? Nausea, vomiting, and dry mouth ? Sleepiness and dizziness ? Confusion ? Depression ? Low levels of testosterone that can result in lower sex drive, energy, and strength ? Itching and sweating RISKS ARE GREATER WITH: ? History of drug misuse, substance use disorder, or overdose ? Mental health conditions (such as depression or anxiety) ? Sleep apnea ? Older age (65 years and older) ? Avoid alcohol while taking prescription opioids. Also, unless specifically advised by your health care provider, medications to avoid include: ? Benzodiazepines (such as Xanax or Valium) ? Muscle relaxants (such as Soma or Flexeril) ? Hypnotics (such as Ambien or Lunesta) ? Other prescription opioids KNOW YOUR OPTIONS Talk to your health care provider about ways to manage your pain that don?t involve prescription opioids. Some of these options may actually work better and have fewer risks and side effects. Options may include: ? Pain relievers such as acetaminophen, ibuprofen, and naproxen ? Some medication that are also used for depression or seizures ? Physical therapy and exercise ? Cognitive behavioral therapy, a psychological, goal-directed approach, in which patients learn how to modify physical, behavioral, and emotional triggers of pain and stress. IF YOU ARE PRESCRIBED OPIOIDS FOR PAIN: ? Never take opioids in greater amounts or more often than prescribed. ? Follow up with your primary health care provider. o Work together to create a plan on how to manage your pain. o Talk about ways to help manage your pain that don?t involve prescription opioids. o Talk about any and all concerns and side effects. ? Help prevent misuse and abuse o Never sell or share prescription opioids. o Never use another person?s prescription opioids. ? Store prescription opioids in a secure place and out of reach of others (this may include visitors, children, friends, and family). ? Safely dispose of unused prescription opioids: Find your community drug take-back program or your pharmacy mail-back program, or flush them down the toilet, following guidance from the Food and Drug Administration (www.fda.gov/Drugs/Re sourcesForYou). ? Visit www.cdc.gov/drugoverd ose to learn about the risks of opioids abuse and overdose. ? If yo (more content not included)... Normal [facility] UA with Cult Rflxon 09-24-19 24 Bilirubin Ql (U) Negative Normal Negative [facility] Comment on above: Performed By: #### 4 [id number] #### [facility] [address] [place] [address] Clarity (U) Clear Normal Clear [facility] Comment on above: Performed By: #### 4 [id number] #### [facility] [address] [place] [address] Color (U) Light-Yellow Normal Yellow [facility] Comment on above: Result Comment: Micr oscopic readings are only performed on those samples that meet specific criteria set forth by [facility]. Performed By: #### 4 [id number] #### [facility] [address] [place] [address] Glucose Ql (U) Negative Normal Negative [facility] Comment on above: Performed By: #### 4 [id number] #### [facility] [address] [place] [address] Hemoglobin Auto test strip (U) [Mass/Vol] Trace Abnormal Negative [facility] Comment on above: Performed By: #### 4 [id number] #### [facility] [address] [place] [address] Ketones Auto test strip Ql (U) Negative Normal Negative [facility] Comment on above: Performed By: #### 4 [id number] #### [facility] [address] [place] [address] Leukocyte esterase Auto test strip Ql (U) Negative Normal Negative [facility] Comment on above: Performed By: #### 4 [id number] #### [facility] [address] [place] [address] Nitrite Auto test strip Ql (U) Negative Normal Negative [facility] Comment on above: Performed By: #### 4 [id number] #### [facility] [address] [place] [address] pH (U) 6.0 [pH] Invalid Interpretation Code 5.0-9.0 [facility] Comment on above: Performed By: #### 4 [id number] #### [facility] [address] [place] [address] Protein Ql (U) Negative Normal Negative [facility] Comment on above: Performed By: #### 4 [id number] #### [facility] [address] [place] [address] Specific gravity (U) [Rel density] 1.014 Invalid Interpretation Code 1.005-1.030 [facility] Comment on above: Performed By: #### 4 [id number] #### [facility] [address] [place] [address] Urobilinogen (U) [Mass/Vol] Negative Normal Negative [facility] Comment on above: Performed By: #### 4 [id number] #### [facility] [address] [place] [address] Type of Urine collection method Clean Catch Normal [facility] Comment on above: Performed By: #### 4 [id number] #### [facility] [address] [place] [address] URINALYSISOrdered By: SYSTEM SYSTEM on 09-24-2023 Bilirubin Ql (U) Negative Normal Negativemg/ d L [facility] UA Auto SS Clarity (U) Clear (09/24/23 4:02 PM) Normal Clear [facility] UA Auto SS Color (U) Light-Yellow 1 (09/24/23 4:02 PM) Normal Yellow [facility] UA Auto SS Comment on above: Interpretive Data: M icroscopic readings are only performed on those samples that meet specific criteria set forth by [facility]. Glucose Ql (U) Negative Normal Negativemg/d L [facility] UA Auto SS Hemoglobin Auto test strip (U) [Mass/Vol] Trace mg/dL Invalid Interpretation Code Negativemg/d L [facility] UA Auto SS Ketones Auto test strip Ql (U) Negative Normal Negativemg/d L [facility] UA Auto SS Leukocyte esterase Auto test strip Ql (U) Negative Normal NegativeLeu/ uL [facility] UA Auto SS Nitrite Auto test strip Ql (U) Negative Normal Negativemg/d L [facility] UA Auto SS pH (U) 6.0 *NA* (09/24/23 4:02 PM) Invalid Interpretation Code 5.0 - 9.0 [facility] UA Auto SS Protein Ql (U) Negative Normal Negativemg/d L [facility] UA Auto SS Specific gravity (U) [Rel density] 1.014 *NA* (09/24/23 4:02 PM) Invalid Interpretation Code 1.005 - 1.030 [facility] UA Auto SS Urobilinogen (U) [Mass/Vol] Negative Normal Negativemg/d L [facility] UA Auto SS URINALYSISOrdered By: Ulisses hamptonrson on 09-24-2023 UA Spec Desc Clean Catch (09/24/23 4:02 PM) Normal [facility] UA Auto SS Work Phone: B hCG Qualon 09-20-2023 Beta HCG ( test) Ql Negative Normal [facility] Comment on above: Performed By: #### 2 [id number] #### [facility] [address] [place] [address] BMPOrdered By: SYSTEM SYSTEM on 09-20-2023 Anion gap [Moles/Vol] 10 mmol/L Normal 6-16 Rem isol Chem Comment on above: Performed By: #### 2 [id number] #### [facility] [address] [place] [address] Calcium [Mass/Vol] 9.0 mg/dL Normal 8.9-11.1 Remiso l Chem Comment on above: Performed By: #### 2 [id number] #### [facility] [address] [place] [address] Chloride [Moles/Vol] 107 mmol/L Normal 101-111 Donald isha Chem Comment on above: Performed By: #### 2 [id number] #### [facility] [address] [place] [address] CO2 [Moles/Vol] 27 mmol/L Normal 21-31 Remisol C hem Comment on above: Performed By: #### 2 [id number] #### [facility] [address] [place] [address] Creatinine [Mass/Vol] 0.8 mg/dL Normal 0.5-1.3 Rem isol Chem Comment on above: Performed By: #### 2 [id number] #### [facility] [address] [place] [address] Glucose [Mass/Vol] 116 mg/dL Normal 55-199 Remiso l Chem Comment on above: Performed By: #### 2 [id number] #### [facility] [address] [place] [address] Potassium [Moles/Vol] 4.0 mmol/L Normal 3.5-5.3 Rem isol Chem Comment on above: Performed By: #### 2 [id number] #### [facility] [address] [place] [address] Sodium [Moles/Vol] 140 mmol/L Normal 135-145 Remiso l Chem Comment on above: Performed By: #### 2 [id number] #### [facility] [address] [place] [address] Urea nitrogen [Mass/Vol] 10 mg/dL Normal 5-21 Remisol Chem Comment on above: Performed By: #### 2 [id number] #### [facility] [address] [place] [address] BMPon 09-20-2023 Urea nitrogen/Creatinine [Mass ratio] 12 No Units Normal 10-20 [facility] Comment on above: Performed By: #### 2 [id number] #### [facility] [address] [place] [address] CBC w/ Auto DiffOrdered By: SYSTEM SYSTEM on 09-20-2023 Basophils/100 WBC (Bld) 0.2 % Normal 0.0-2.0 R emisol Heme Comment on above: Performed By: #### 2 [id number] #### [facility] [address] [place] [address] Basophils/Leukocytes Auto (Bld) [Pure # fraction] 0.0 E9/L Normal 0.0-0.2 Remisol Heme Comment on above: Performed By: #### 2 [id number] #### [facility] [address] [place] [address] Eosinophils (Bld) [#/Vol] 0.1 E9/L Normal 0.0-0.5 Remisol Heme Comment on above: Performed By: #### 2 [id number] #### [facility] [address] [place] [address] Eosinophils/100 WBC (Bld) 1.6 % Normal 0.0-8.0 Remisol Heme Comment on above: Performed By: #### 2 [id number] #### [facility] [address] [place] [address] Erythrocyte distribution width (RBC) [Ratio] 13.5 % Normal 10.9-14.2 Remisol Heme Comment on above: Performed By: #### 2 [id number] #### [facility] [address] [place] [address] Hematocrit (Bld) [Volume fraction] 37.8 % Normal 34.0-46.0 Remisol Heme Comment on above: Performed By: #### 2 [id number] #### [facility] [address] [place] [address] Hemoglobin (Bld) [Mass/Vol] 13.7 g/dL Normal 12.0-16.0 Remisol Heme Comment on above: Performed By: #### 2 [id number] #### [facility] [address] [place] [address] Lymphocytes (Bld) [#/Vol] 1.8 E9/L Normal 1.0-4.0 Remisol Heme Comment on above: Performed By: #### 2 [id number] #### [facility] [address] [place] [address] Lymphocytes/100 WBC (Bld) 23.9 % Normal 14.0-50.0 Remisol Heme Comment on above: Performed By: #### 2 [id number] #### [facility] [address] [place] [address] MCH (RBC) [Entitic mass] 32.0 pg Normal 27.0-34.0 Remisol Heme Comment on above: Performed By: #### 2 [id number] #### [facility] [address] [place] [address] MCHC (RBC) [Mass/Vol] 36.1 g/dL High 31.4-36.0 Rem isol Heme Comment on above: Performed By: #### 2 [id number] #### [facility] [address] [place] [address] MCV (RBC) [Entitic vol] 88.8 fL Normal 80.0-100.0 R emisol Heme Comment on above: Performed By: #### 2 [id number] #### [facility] [address] [place] [address] Monocytes (Bld) [#/Vol] 0.6 E9/L Normal 0.2-1.0 R emisol Heme Comment on above: Performed By: #### 2 [id number] #### [facility] [address] [place] [address] Neutrophils (Bld) [#/Vol] 5.0 E9/L Normal 2.0-7.5 Remisol Heme Comment on above: Performed By: #### 2 [id number] #### [facility] [address] [place] [address] Neutrophils/100 WBC (Bld) 66.8 % Normal 36.0-75.0 Remisol Heme Comment on above: Performed By: #### 2 [id number] #### [facility] [address] [place] [address] Platelet 409.0 E9/L Normal 150.0-500.0 Remisol Heme Comment on above: Performed By: #### 2 [id number] #### [facility] [address] [place] [address] Platelet mean volume (Bld) [Entitic vol] 7.0 fL Normal 6.4-10.8 Remisol Heme Comment on above: Performed By: #### 2 [id number] #### [facility] [address] [place] [address] RBC (Bld) [#/Vol] 4.3 E12/L Normal 4.3-5.9 Remisol Heme Comment on above: Performed By: #### 2 [id number] #### [facility] [address] [place] [address] WBC corrected for nucl RBC Auto (Bld) [#/Vol] 7.5 E9/L Normal 4.0-11.0 Remisol H jessica Comment on above: Performed By: #### 2 [id number] #### [facility] [address] [place] [address] CHEMISTRYOrdered By: SYSTEM SYSTEM on 09-20-2023 Albumin/Globulin [Mass ratio] 1.6 {ratio} Normal 1.1 - 2.2 Remisol Chem ALP [Catalytic activity/Vol] 130 [iU]/d High 21 - 98 Int._Unit/L Remisol Chem ALT No additional P-5'-P [Catalytic activity/Vol] 12 [iU]/d Normal 6 - 46 Int._Unit/L Remisol Chem AST [Catalytic activity/Vol] 14 [iU]/d Normal 5 - 43 Int._Unit/L Remisol Chem Urea nitrogen/Creatinine [Mass ratio] 12 mg/mg Normal 10 - 20 Remisol Chem Consent for Treatmenton 08-27 Consent for Treatment [id number] .00TIFF Normal [facility] Discharge Instructionson Discharge Instructions [id number] 1.00TIFF Normal [facility] ED Clinical Summaryon 2023 ED Clinical Summary [address] [address] ED Clinical Summary Person Information Name: ALEJANDRA REAL [place] Age: 27 Years : 1995 Sex: Female Language: Uruguayan PCP: Lorri Ireland CNP Marital Status: Single Phone: [phone] Visit Id: Visit Reason: Dysuria; Nausea; Abdominal pain; LOWER ABD PAIN Speciality: Acuity: 3 Enc Type: Emergency Med Service: Emergency Arrival: 09/20/2023 12:19:55 Discharge: 09/20/2023 15:32:45 LOS: 000 03:13 Checkin: 09/20/2023 12:19:55 Checkout: 09/20/2023 15:32:45 Dispo Type: Home (Routine DC) EVENTS: Event Name Event Status Request Date/Time Start Date/Time Complete Date/Time Arrive Complete 09/20/2023 12:19:55 09/20/2023 12:19:55 09/20/2023 12:19:55 Document Home Meds Request 09/20/2023 12:19:55 Triage Complete 09/20/2023 12:19:55 09/20/2023 12:38:21 09/20/2023 12:38:21 Registration Complete 09/20/2023 12:31:18 09/20/2023 12:31:18 09/20/2023 12:31:18 Reg Complete Request 09/20/2023 12:31:18 Reg Bed Request Complete 09/20/2023 12:31:18 09/20/2023 12:31:18 09/20/2023 12:31:18 Pending Labs Complete 09/20/2023 12:38:47 09/20/2023 13:36:36 Lab Complete 09/20/2023 12:38:47 09/20/2023 13:33:18 Urine Collect Complete 09/20/2023 12:38:47 09/20/2023 13:33:18 Bed Assign Complete 09/20/2023 12:40:13 09/20/2023 12:40:13 09/20/2023 12:40:13 Dr Exam Complete 09/20/2023 12:40:13 09/20/2023 12:41:23 09/20/2023 12:41:23 RN Exam Complete 09/20/2023 12:40:13 09/20/2023 13:14:46 09/20/2023 13:14:46 Registration Request 09/20/2023 12:41:23 Pending Labs Complete 09/20/2023 12:53:06 09/20/2023 13:34:08 Lab Complete 09/20/2023 12:53:06 09/20/2023 13:25:35 Pending Labs Complete 09/20/2023 13:05:03 09/20/2023 13:05:03 09/20/2023 13:25:35 Lab Complete 09/20/2023 13:05:03 09/20/2023 13:05:03 09/20/2023 13:25:35 Discharge Complete 09/20/2023 15:19:57 09/20/2023 15:32:50 09/20/2023 15:32:50 Transfer Complete 09/20/2023 15:32:50 09/20/2023 15:32:50 09/20/2023 15:32:50 ADDRESS: [facility] [address] [facility] [id number] PHYS DOC NOTES: MEDICAL INFORMATION: Prescriptions Given: Medications to Continue Taking That Have Changed [facility]/pharmacy #[id number], [address], [place] [id number], [phone] START: ondansetron (ondansetron 4 mg Dis Tab) 1 Tablets By Mouth every 6 hours for 3 Days. Refills: 0. START: tramadol (Ultram 50 mg Tab) 1 Tablets By Mouth every 6 hours for 3 Days. Refills: 0. Other Medications START: ondansetron (Zofran ODT 4 mg Tab-Dis) 1 Tablets By Mouth 3 times a day. Refills: 0. START: tramadol (traMADOL 50 mg Tab) 1 Tablets By Mouth every 8 hours as needed as needed for pain. Refills: 0. Medications to Continue with No Changes Other Medications albuterol (Albuterol (Eqv-ProAir HFA) 90 mcg/inh inhalation aerosol) Inhalation every 6 hours. dicyclomine (Bentyl 10 mg Cap) 1 Capsules By Mouth 4 times a day as needed Other (see comment). For abdominal cramping. Refills: 0. dicyclomine (Bentyl 10 mg Cap) 1 Capsules By Mouth 4 times a day for 7 Days. Refills: 0. Misc Prescription (BACLOFEN 10 MG TABLET) 0. multivitamin with iron (Iron 100 Plus) By Mouth every day. naproxen (Naprosyn 500 mg Tab) 1 Tablets By Mouth 2 times a day. Refills: 0. nitrofurantoin (Macrobid 100 mg Cap) 1 Capsules By Mouth every 12 hours for 5 Days. Refills: 0. PATIENT EDUCATION INFORMATION: Instructions: Follow up: With: Address: When: Lorri Ireland [address] [place] [address], [address] [place] [address] Business (1) In 3 days DIAGNOSIS: Abdominal pain; Nausea Normal [facility] ED Note-Physicianon 09-20-19 ED Note-Physician Basic Information Time Seen: Huog MARIAJusto 09/20/2023 12:41 Chief Complaint c/o worsening nausea has been taking zofran, having extra vaginal discharge and bleeding, recently diagnosed with UTI and on antibiotics now. recently diagnosed with pelvic congestion syndrome, seeing dr gooden, scheduling surgery for coils and stents. History of Present Illness 27 female history of pelvic congestion syndrome presents to the ER with abdominal pain. Patient states that she was just here few days ago diagnosed with UTI started on Macrobid and also Pyridium. She states that she has continued to have some pain in the lower part of her abdomen. She also took some Zofran and Bentyl today prior to arrival continues to have this discomfort. She is scheduled for upcoming surgery with Dr. Gooden. She denies any prior abdominal surgeries. She denies any chance of stating presence of Nexplanon. Patient states that she has had a whitish type of discharge but is not concerned for any sexually transmitted diseases. No other aggravating or relieving factors no other associated symptoms no other prior treatments or complaints. Family: Reviewed and noncontributory Social: lives at home Review of systems negative unless otherwise specified in the HPI. Physical Exam Vitals & Measurements T: 37.6 ?C(Oral) HR: 81(Peripheral) RR: 18 BP: 124/78 SpO2: 100% HT: 160 cm WT: 65.1 kg BMI: 25.43 General: The patient appears well and in no apparent distress. Patient is resting comfortably on cart. Skin: Warm, dry, no pallor noted. Head: Normocephalic, atraumatic Neck: No JVD Eye: PERRLA, EOMI ENT: Moist mucus membranes Cardiovascular: Regular rate normal peripheral perfusion Respiratory: No respiratory distress no accessory muscle use no obvious audible wheezing Chest Wall: no deformity Musculoskeletal: normal ROM, no deformity, no swelling GI: Soft no obvious distention. No rebound or rigidity. No guarding. Diffuse tenderness to palpation to the lower pelvic region no focal tenderness no tenderness over McBurney's point negative Germain sign : Exam deferred Neurological: A&O moves all extremities equal strength and symmetry Psychiatric: Cooperative and appropriate Medical Decision Making Workup in the ER has been reviewed and noted. I did review the patient's most recent visit here in the emergency department and prior records including numerous imaging studies as well. Patient is feeling much better here after treatment. Laboratory studies are unremarkable as well. Patient has had numerous CT scans in the past therefore will not do another CT as we do have possible etiology for her pain with her pelvic congestion syndrome and she has upcoming appointment in very early part of September with Dr. Gooden for procedure. She will be discharged home on tramadol and Zofran and was able to tolerate p.o. challenge here. Assessment/Plan Abdominal pain (R10.9: Unspecified abdominal pain) Ordered: tramadol, 50 mg = 1 tab(s), Oral, q6hr, X 3 day(s), # 12 tab(s), Refills(s) 0, Pharmacy: [id number], 160, cm, 09/20/23 12:38:00 EDT, Height/Length Dosing, 65.1, kg, 09/20/23 12:38:00 EDT, Weight Dosing Nausea (R11.0: Nausea) Orders: ondansetron, 4 mg = 1 tab(s), Oral, q6hr, X 3 day(s), # 10 tab(s), Refills(s) 0, Pharmacy: [id number], 160, cm, 09/20/23 12:38:00 EDT, Height/Length Dosing, 65.1, kg, 09/20/23 12:38:00 EDT, Weight Dosing Basic Metabolic Panel Beta hCG Qual CBC w/ Auto Diff eGFR Hepatic Function Panel Lipase Level Disposition Plan Discharge Prescription List Prescriptions ondansetron 4 mg Dis Tab, 4 mg= 1 tab(s), Oral, q6hr Ultram 50 mg Tab, 50 mg= 1 tab(s), Oral, q6hr Follow-up With When Contact Information Lorri Beka In 3 days [address] [facility], [address] [place] [address]- Business (1) Additional Instructions: Problem List/Past Medical History Ongoing Asthma BMI 25.0-25.9,adult Dysuria History of COVID-19 (04-24-2021) Lower abdominal pain Numbness and tingling of leg Right flank pain Right lower quadrant pain Smoker Wrist pain Historical Acute low back pain Dental caries Heart murmur Procedure/Surgical History Nasal deviation, 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 Medications Inpatient No active inpatient medications Home Albuterol (Eqv-ProAir HFA) 90 mcg/inh inhalation aerosol, Inhalation, q6hr BACLOFEN 10 MG TABLET, 0 Bentyl 10 mg Cap, 10 mg= 1 cap(s), Oral, QID, PRN Bentyl 10 mg Cap, 10 mg= 1 cap(s), Oral, QID Iron 100 Plus, Oral, Daily Macrobid 100 mg Cap, 100 mg= 1 cap(s), Oral, q12hr Naprosyn 500 mg Tab, 500 mg= 1 tab(s), Oral, BID traMADOL 50 mg Tab, 50 mg= 1 tab(s), Oral, q8hr, PRN Zofran ODT 4 mg Tab-Dis, 4 mg= 1 tab(s), Oral, TID Allergies No Known Allergies Social History Alcohol - Denies Alcohol Use, (more content not included)... Normal [facility] Comment on above: Result Comment: Elec tronically Signed By: Justo Arias DO\.br\Date and Time Signed: 09/20/23 15:21 EDT ED Patient Education Noteon 09-20-2023 ED Patient Education Note Normal [facility] ED Patient Summaryon 024 ED Patient Summary [address] [address] Patient Discharge Instructions Person Information Name: ALEJANDRA REAL Age: 27 Years Arrival Date: 09/20/2023 12:19:55 Discharge Diagnosis: Abdominal pain; Nausea Primary Care Physician: Lorri Ireland CNP Provider Information Primary Provider: Justo Arias DO Advanced Bed And Breakfast Innkeeper:None The exam and treatment you received in the Emergency Department were for an urgent problem and are not intended as complete care. It is important that you follow up with a doctor, nurse practitioner, or physician?s orthotics assistant for ongoing care. If your symptoms become worse or you do not improve as expected and you are unable to reach your usual health care provider, you should return to the Emergency Department. We are available 24 hours a day. ALEJANDRA REAL has been given the following list of patient education materials, prescriptions and follow-up instructions: Follow-up Instructions: With: Address: When: Lorri Ireland [address] [place] [address], [address] [place] [address] Business (1) In 3 days In the event that this physician does not participate in your insurance network, please consult with your insurance company to find a nearby participating provider. Patient Education Materials: A MESSAGE TO ALL PATIENTS REGARDING OPIOIDS PRESCRIPTION OPIOIDS: WHAT YOU NEED TO KNOW Prescription opioids can be used to help relieve msdvqibp-op-omceju pain and are often prescribed following a surgery or injury, or for certain health conditions. These medications can be an important part of the treatment but also come with serious risks. It is important to work with your healthcare provider to make sure you are getting the safest, most effective care. WHAT ARE THE RISKS AND SIDE EFFECTS OF OPIOID USE? Prescription opioids carry serious risks of addiction and overdose, especially with prolonged use. An opioid overdose, often marked by slowed breathing, can cause sudden . The use of prescription opioids can have a number of side effects as well, even when taken as directed: ? Tolerance?meaning you might need to take more of the medication for the same pain relief ? Physical dependence?meaning you have symptoms of withdrawal when a medication is stopped ? Increased sensitivity to pain ? Constipation ? Nausea, vomiting, and dry mouth ? Sleepiness and dizziness ? Confusion ? Depression ? Low levels of testosterone that can result in lower sex drive, energy, and strength ? Itching and sweating RISKS ARE GREATER WITH: ? History of drug misuse, substance use disorder, or overdose ? Mental health conditions (such as depression or anxiety) ? Sleep apnea ? Older age (65 years and older) ? Avoid alcohol while taking prescription opioids. Also, unless specifically advised by your health care provider, medications to avoid include: ? Benzodiazepines (such as Xanax or Valium) ? Muscle relaxants (such as Soma or Flexeril) ? Hypnotics (such as Ambien or Lunesta) ? Other prescription opioids KNOW YOUR OPTIONS Talk to your health care provider about ways to manage your pain that don?t involve prescription opioids. Some of these options may actually work better and have fewer risks and side effects. Options may include: ? Pain relievers such as acetaminophen, ibuprofen, and naproxen ? Some medication that are also used for depression or seizures ? Physical therapy and exercise ? Cognitive behavioral therapy, a psychological, goal-directed approach, in which patients learn how to modify physical, behavioral, and emotional triggers of pain and stress. IF YOU ARE PRESCRIBED OPIOIDS FOR PAIN: ? Never take opioids in greater amounts or more often than prescribed. ? Follow up with your primary health care provider. o Work together to create a plan on how to manage your pain. o Talk about ways to help manage your pain that don?t involve prescription opioids. o Talk about any and all concerns and side effects. ? Help prevent misuse and abuse o Never sell or share prescription opioids. o Never use another person?s prescription opioids. ? Store prescription opioids in a secure place and out of reach of others (this may include visitors, children, friends, and family). ? Safely dispose of unused prescription opioids: Find your community drug take-back program or your pharmacy mail-back program, or flush them down the toilet, following guidance from the Food and Drug Administration (www.fda.gov/Drugs/Re sourcesForYou). ? Visit www.cdc.gov/drugoverd ose to learn about the risks of opioids abuse and overdose. ? If you believe you may be struggling with addiction, tell your health vocational childcare teacher and ask for guidance or call [facility]?S National Helpline at 5-390-717-GEJX. g Source: [place] Department of Health and Human Serv (more content not included)... Normal [facility] HEMATOLOGYOrdered By: SYSTEM SYSTEM on 09-20-2023 Monocytes/100 WBC (Bld) 7.5 % Normal 4.0 - 14.0 % Remisol Heme Hep Func PanelOrdered By: [employer] SYSTEM on 09-20-2023 Albumin [Mass/Vol] 4.4 g/dL Normal 3.3-5.0 Remiso l Chem Comment on above: Performed By: #### 2 [id number] #### [facility] [address] [place] [address] Bilirubin [Mass/Vol] 0.3 mg/dL Normal 0.0-1.1 Donald isha Chem Comment on above: Performed By: #### 2 [id number] #### [facility] [address] [place] [address] Bilirubin.direct [Mass/Vol] 0.1 mg/dL Normal 0.0-0.4 Remisol Chem Comment on above: Performed By: #### 2 [id number] #### [facility] [address] [place] [address] Bilirubin.indirect [Mass or moles/Vol] 0.2 mg/dL Normal 0.1-0.9 Remisol Chem Comment on above: Performed By: #### 2 [id number] #### [facility] [address] [place] [address] Globulin (S) [Mass/Vol] 2.8 g/dL Normal 1.4-4.0 R emisol Chem Comment on above: Performed By: #### 2 [id number] #### [facility] [address] [place] [address] Protein [Mass/Vol] 7.2 g/dL Normal 6.0-7.8 Remiso l Chem Comment on above: Performed By: #### 2 [id number] #### [facility] [address] [place] [address] Hep Func Panelon 09-20-2023 Albumin/Globulin (S) [Mass conc ratio] 1.6 Normal 1.1-2.2 [facility] Comment on above: Performed By: #### 2 [id number] #### [facility] [address] [place] [address] ALP [Catalytic activity/Vol] 130 Int._Unit/L High 21-98 [facility] Comment on above: Performed By: #### 2 [id number] #### [facility] [address] [place] [address] ALT No additional P-5'-P [Catalytic activity/Vol] 12 Int._Unit/L Normal 6-46 [facility] Comment on above: Performed By: #### 2 [id number] #### [facility] [address] [place] [address] AST [Catalytic activity/Vol] 14 Int._Unit/L Normal 5-43 [facility] Comment on above: Performed By: #### 2 [id number] #### [facility] [address] [place] [address] Lipase LevelOrdered By: SYST EM SYSTEM on 09-20-2023 Lipase [Catalytic activity/Vol] 47 U/L Normal 13-58 Remisol Chem Comment on above: Performed By: #### 2 [id number] #### [facility] [address] [place] [address] SEROLOGYOrdered By: Brii Walters on 09-20-2023 HCG.beta subunit (U) [Moles/Vol] Negative Normal [facility] Beta HCG ( test) Ql Negative (09/20/23 1:00 PM) Normal [facility] [facility] [place] BetaHcg Qualon 09-20-2023 HCG.beta subunit (U) [Moles/Vol] Negative Normal [facility] Comment on above: Performed By: #### 2 [id number] #### [facility] [address] [place] [address] UA with Cult Rflxon 09-20-19 Bilirubin Ql (U) Negative Normal Negative [facility] Comment on above: Performed By: #### 4 [id number] #### [facility] [address] [place] [address] Clarity (U) Turbid Abnormal Clear [facility] Comment on above: Performed By: #### 4 [id number] #### [facility] [address] [place] [address] Color (U) Light-Yellow Normal Yellow [facility] Comment on above: Result Comment: Micr oscopic readings are only performed on those samples that meet specific criteria set forth by [facility]. Performed By: #### 4 [id number] #### [facility] [address] [place] [address] Epithelial cells.squamous Auto (Urine sed) [#/Area] 0-2 Normal 0-2 [facility] Comment on above: Performed By: #### 4 [id number] #### [facility] [address] [place] [address] Glucose Ql (U) Negative Normal Negative [facility] Comment on above: Performed By: #### 4 [id number] #### [facility] [address] [place] [address] Hemoglobin Auto test strip (U) [Mass/Vol] Negative Normal Negative [facility] Comment on above: Performed By: #### 4 [id number] #### [facility] [address] [place] [address] Ketones Auto test strip Ql (U) Negative Normal Negative [facility] Comment on above: Performed By: #### 4 [id number] #### [facility] [address] [place] [address] Leukocyte esterase Auto test strip Ql (U) Negative Normal Negative [facility] Comment on above: Performed By: #### 4 [id number] #### [facility] [address] [place] [address] Mucus Auto Ql (U) Trace Normal Negative [facility] Comment on above: Performed By: #### 4 [id number] #### [facility] [address] [place] [id number] Nitrite Auto test strip Ql (U) Negative Normal Negative [facility] Comment on above: Performed By: #### 4 [id number] #### [facility] [address] [place] [address] pH (U) 7.0 [pH] Invalid Interpretation Code 5.0-9.0 [facility] Comment on above: Performed By: #### 4 [id number] #### [facility] [address] [place] [address] Protein Ql (U) Negative Normal Negative [facility] Comment on above: Performed By: #### 4 [id number] #### [facility] [address] [place] [address]45 RBC Ql (U) 0-3 Normal 0-3 [facility] Comment on above: Performed By: #### 4 [id number] #### [facility] [address] [place], [place] [id number] Specific gravity (U) [Rel density] 1.023 Invalid Interpretation Code 1.005-1.030 [facility] Comment on above: Performed By: #### 4 [id number] #### [facility] [address] [place] [address]85 Urobilinogen (U) [Mass/Vol] Negative Normal Negative [facility] Comment on above: Performed By: #### 4 [id number] #### [facility] [address] [place] [address] WBC Auto (Urine sed) [#/Area] 0-5 Normal 0-5 [facility] Comment on above: Performed By: #### 4 [id number] #### [facility] [address] [place] [address] Type of Urine collection method Clean Catch Normal [facility] Comment on above: Performed By: #### 4 [id number] #### [facility] [address] [place] [address] URINALYSISOrdered By: SYSTEM SYSTEM on 09-20-2023 Bilirubin Ql (U) Negative Normal Negativemg/ d L [facility] UA Auto SS Clarity (U) Turbid *ABN* (09/20/23 1:15 PM) Invalid Interpretation Code Clear [facility] UA Auto SS Color (U) Light-Yellow 1 (09/20/23 1:15 PM) Normal Yellow [facility] UA Auto SS Comment on above: Interpretive Data: M icroscopic readings are only performed on those samples that meet specific criteria set forth by [facility]. Epithelial cells.squamous Auto (Urine sed) [#/Area] 0-2 graded/HPF Normal 0-2graded/HP F [facility] UA Auto SS Glucose Ql (U) Negative Normal Negativemg/d L [facility] UA Auto SS Hemoglobin Auto test strip (U) [Mass/Vol] Negative Normal Negativemg/d L [facility] UA Auto SS Ketones Auto test strip Ql (U) Negative Normal Negativemg/d L [facility] UA Auto SS Leukocyte esterase Auto test strip Ql (U) Negative Normal NegativeLeu/ uL [facility] UA Auto SS Mucus Auto Ql (U) Trace graded/LPF Normal Negati vegrad ed/LPF [facility] UA Auto SS Nitrite Auto test strip Ql (U) Negative Normal Negativemg/d L [facility] UA Auto SS pH (U) 7.0 *NA* (09/20/23 1:15 PM) Invalid Interpretation Code 5.0 - 9.0 [facility] UA Auto SS Protein Ql (U) Negative Normal Negativemg/d L [facility] UA Auto SS RBC Ql (U) 0-3 graded/HPF Normal 0-3graded/HP F [facility] UA Auto SS Specific gravity (U) [Rel density] 1.023 *NA* (09/20/23 1:15 PM) Invalid Interpretation Code 1.005 - 1.030 [facility] UA Auto SS Urobilinogen (U) [Mass/Vol] Negative Normal Negativemg/d L [facility] UA Auto SS WBC Auto (Urine sed) [#/Area] 0-5 graded/HPF Normal 0-5graded/HP F [facility] UA Auto SS URINALYSISOrdered By: Lio Nettles on 09-20-2023 UA Spec Desc Clean Catch (09/20/23 1:15 PM) Normal [facility] UA Auto SS Work Phone: eGFROrdered By: JAMES Álvarez on 09-20-2023 eGFR 102 mL/min/1.73 m2 Normal >=59 [facility] Comment on above: Order Comment: Order added by Discern Expert. Performed By: #### 1 [id number] #### [facility] [address] [place] [address] C Urineon 09-19-2023 Bacteria identified Cx Nom (U) Microbiology PROCEDURE: Urine Culture [R1] SOURCE: U CleanCatch BODY SITE: COLLECTED DATE/TIME: 09/17/2023 04:34 EDT RECEIVED DATE/TIME: 09/17/2023 05:18 EDT START DATE/TIME: 09/17/2023 05:18 EDT FREE TEXT SOURCE: Vivian Ochoa DO, DO, Kaylinn A FINAL REPORTS Final Report [] Verified Date/Time: 09/19/2023 07:11 EDT 5,000 cfu/ml Mixed skin contaminants Performing Locations R1: This test was performed at: [facility], [address] [place] [address], [address] , , [facility] Comment on above: Performed By: #### 2 [id number] #### [facility] [address] [place] [address]36 Consent for Treatmenton 08-27 Consent for Treatment [id number] [facility] Discharge Instructionson Discharge Instructions [id number] .[id number] Normal [facility] ED Clinical Summaryon 2023 ED Clinical Summary [address] [address] ED Clinical Summary Person Information Name: ALEJANDRA REAL [place] Age: 27 Years : 1995 Sex: Female Language: Uruguayan PCP: Lorri Ireland CNP Marital Status: Single Phone: [phone] Visit Id: Visit Reason: Abdominal pain; Hematuria; Nausea; abd pain blood in urine burning when urinating Speciality: Acuity: 3 Enc Type: Emergency Med Service: Emergency Arrival: 09/17/2023 04:24:35 Discharge: 09/17/2023 05:11:03 LOS: 000 00:47 Checkin: 09/17/2023 04:24:35 Checkout: 09/17/2023 05:11:03 Dispo Type: Home (Routine DC) EVENTS: Event Name Event Status Request Date/Time Start Date/Time Complete Date/Time Arrive Complete 09/17/2023 04:24:35 09/17/2023 04:24:35 09/17/2023 04:24:35 Document Home Meds Request 09/17/2023 04:24:35 Triage Complete 09/17/2023 04:24:35 09/17/2023 04:33:33 09/17/2023 04:33:33 Registration Complete 09/17/2023 04:27:45 09/17/2023 04:27:45 09/17/2023 04:27:45 Reg Complete Request 09/17/2023 04:27:45 Reg Bed Request Complete 09/17/2023 04:27:45 09/17/2023 04:27:45 09/17/2023 04:27:45 Dr Exam Complete 09/17/2023 04:29:46 09/17/2023 04:29:46 09/17/2023 04:29:46 Registration Start 09/17/2023 04:29:46 09/17/2023 04:31:13 Bed Assign Complete 09/17/2023 04:31:13 09/17/2023 04:31:13 09/17/2023 04:31:13 RN Exam Complete 09/17/2023 04:31:13 09/17/2023 04:45:05 09/17/2023 04:45:05 Pending Labs Complete 09/17/2023 04:32:07 09/17/2023 04:49:27 Lab Complete 09/17/2023 04:32:07 09/17/2023 04:42:34 Urine Collect Complete 09/17/2023 04:32:07 09/17/2023 04:42:34 Meds Admin Complete 09/17/2023 04:47:03 09/17/2023 05:06:14 Pending Labs Collected 09/17/2023 04:49:27 09/17/2023 04:49:27 Lab Collected 09/17/2023 04:49:27 09/17/2023 04:49:27 Meds Admin Complete 09/17/2023 04:53:05 09/17/2023 05:06:15 Discharge Complete 09/17/2023 04:56:47 09/17/2023 05:11:08 09/17/2023 05:11:08 Transfer Complete 09/17/2023 05:11:08 09/17/2023 05:11:08 09/17/2023 05:11:08 ADDRESS: [facility] [address] [facility] [id number] PHYS DOC NOTES: MEDICAL INFORMATION: Prescriptions Given: New Medications [facility]/pharmacy #[id number], [address] [place], [place] [id number], [phone] nitrofurantoin (Macrobid 100 mg Cap) 1 Capsules By Mouth every 12 hours for 5 Days. Refills: 0. phenazopyridine (Pyridium 200 mg Tab) 1 Tablets By Mouth 3 times a day for 3 Days. Refills: 0. Medications to Continue Taking That Have Changed [facility]/pharmacy #[id number], [address] [place], [place] [id number], [phone] START: dicyclomine (Bentyl 10 mg Cap) 1 Capsules By Mouth 4 times a day for 7 Days. Refills: 0. START: tramadol (traMADOL 50 mg Tab) 1 Tablets By Mouth every 6 hours as needed for pain for 2 Days. Refills: 0. Other Medications START: dicyclomine (Bentyl 10 mg Cap) 1 Capsules By Mouth 4 times a day as needed Other (see comment). For abdominal cramping. Refills: 0. START: tramadol (traMADOL 50 mg Tab) 1 Tablets By Mouth every 8 hours as needed as needed for pain. Refills: 0. Medications to Continue with No Changes Other Medications albuterol (Albuterol (Eqv-ProAir HFA) 90 mcg/inh inhalation aerosol) Inhalation every 6 hours. Misc Prescription (BACLOFEN 10 MG TABLET) 0. multivitamin with iron (Iron 100 Plus) By Mouth every day. naproxen (Naprosyn 500 mg Tab) 1 Tablets By Mouth 2 times a day. Refills: 0. ondansetron (Zofran ODT 4 mg Tab-Dis) 1 Tablets By Mouth 3 times a day. Refills: 0. PATIENT EDUCATION INFORMATION: Instructions: Urinary Tract Infection, Adult, [id number] Follow up: With: Address: When: Lorri Beka [address] [place] [address], [address] [place] [phone] Business (1) In 3 days 09/20/2023 Comments: Take the antibiotics as prescribed until you have completed the course. You can use the Pyridium every 8 hours as needed for burning. You can use the other medications as prescribed as needed for pain. Please follow-up with your primary care doctor for further evaluation management. Please return to the ED for any new or worsening symptoms. DIAGNOSIS: Acute UTI Normal [facility] ED Note-Physicianon 09-17-19 ED Note-Physician Basic Information Time Seen: Vivian Ochoa DO 09/17/2023 04:29 Chief Complaint awoke with right lower abd pain. nausea. blood in urine History of Present Illness Is a 27-year-old female with history of pelvic congestion syndrome presenting to the ED for evaluation of lower abdominal pain, burning with urination and nausea. Patient states she woke up with right lower quadrant abdominal pain similar to her previous issues with pelvic congestion syndrome. Is currently being worked up with plan for coiling of the pelvic vessels with Dr. Gooden. Patient also notes for the last several days she has had burning with urination and blood in her urine. Denies any fevers, chills, chest pain or shortness of breath. Patient states she did have nausea and vomiting but did take Zofran which improved her symptoms. Denies any concern for STDs Review of Systems A 10 point review of systems is negative except as noted above. Medical and Surgical History: Reviewed and noted Social history: Lives at home Tobacco: Denies Physical Exam Vitals & Measurements T: 36.9 ?C(Oral) HR: 94(Peripheral) RR: 16 BP: 134/76 SpO2: 99% HT: 160 cm WT: 65.4 kg BMI: 25.55 General: Well developed, non toxic appearing, no acute distress HEENT: Head atraumatic, Mucosa moist, hearing grossly normal Neck: No JVD, tracheal deviation Cardiac: Regular rate, rhythm, no murmurs, or gallops, 2+ radial pulses Respiratory: Lungs clear to auscultation B/L, normal respiratory effort Abdomen: Soft, mild lower abdominal tenderness, no rebound or guarding, no peritoneal signs Extremities: No edema noted in the LE B/L, no tenderness to palpation Neurologic: Alert and oriented, speech clear Skin: No rashes or lesions Psych: Appropriate mood and behavior Medical Decision Making MEDICAL DECISION MAKING Number and Complexity of Problems Differential Diagnosis: [] [facility] Data External documents reviewed: [] My EKG interpretation: [] My CT interpretation: [] My X-ray interpretation: [] My Ultrasound interpretation: [] Decision rules/scores evaluated: [] Discussed with: [] Treatment and Disposition ED Course: Patient is a 27-year-old female presenting to the ED for evaluation of lower abdominal pain, urinary symptoms.. Patient is nontoxic and on arrival, no acute distress. Patient has a history of pelvic congestion syndrome has been extensively worked up in the ED in the past with multiple CTA scans. Patient states this feels similar. Discussed with patient no indication for CT imaging at this time as would like to limit her exposure to radiation. Urinalysis is obtained. Patient is given Bentyl in the ED for pain. Patient's urinalysis is consistent with urinary tract infection and started on Macrobid in addition to Pyridium for her symptoms. Patient is discharged home with a short course of tramadol in addition to Bentyl. She is to follow-up with her primary care doctor next 2 to 3 days for further evaluation management. She is return to the ED for any new or worsening symptoms. Shared decision making: [] Code status: [] Assessment/Plan Acute UTI (N39.0: Urinary tract infection, site not specified) Orders: dicyclomine, 10 mg = 1 cap(s), Cap, Oral, Once, Stop date 09/17/23 4:46:00 EDT, STAT, Start date 09/17/23 4:46:00 EDT, 09/17/23 4:46:00 EDT dicyclomine, 10 mg = 1 cap(s), Oral, QID, X 7 day(s), # 21 cap(s), Refills(s) 0, [id number], [facility], cm, 09/17/23 4:33:00 EDT, Height/Length Dosing, 65.4, kg, 09/17/23 4:33:00 EDT, Weight Dosing nitrofurantoin, 100 mg = 1 cap(s), Oral, q12hr, X 5 day(s), # 10 cap(s), Refills(s) 0, Pharmacy: [facility]/pharmacy #[id number], 160, cm, 09/17/23 4:33:00 EDT, Height/Length Dosing, 65.4, kg, 09/17/23 4:33:00 EDT, Weight Dosing nitrofurantoin, 100 mg = 1 cap(s), Cap, Oral, Once, Stop date 09/17/23 4:52:00 EDT, STAT, Start date 09/17/23 4:52:00 EDT, 09/17/23 4:52:00 EDT phenazopyridine, 200 mg = 2 tab(s), Tab, Oral, Once, Stop date 09/17/23 4:52:00 EDT, STAT, Start date 09/17/23 4:52:00 EDT, 09/17/23 4:52:00 EDT phenazopyridine, 200 mg = 1 tab(s), Oral, TID, X 3 day(s), # 9 tab(s), Refills(s) 0, [id number], 160, cm, 09/17/23 4:33:00 EDT, Height/Length Dosing, 65.4, kg, 09/17/23 4:33:00 EDT, Weight Dosing tramadol, 100 mg = 2 tab(s), Tab, Oral, Once, Stop date 09/17/23 4:52:00 EDT, STAT, Start date 09/17/23 4:52:00 EDT, 09/17/23 4:52:00 EDT tramadol, 50 mg = 1 tab(s), Oral, q6hr, PRN for pain, X 2 day(s), # 7 tab(s), Refills(s) 0, Pharmacy: [facility]/pharmacy #[id number], 160, cm, 09/17/23 4:33:00 EDT, Height/Length Dosing, 65.4, kg, 09/17/23 4:33:00 EDT, Weight Dosing U Beta Hcg Qual UA with Cult Rflx Urine Culture Disposition Plan Discharge Prescription List Prescriptions Bentyl 10 mg Cap, 10 mg= 1 cap(s), Oral, QID Macrobid 100 mg Cap, 100 mg= 1 cap(s), Oral, q12hr Pyridium 200 mg Tab, 200 mg= 1 tab(s), Oral, TID traMADOL 50 mg Tab, 50 mg= 1 tab(s), Oral, q6hr, PRN Follo (more content not included)... Normal [facility] Comment on above: Result Comment: Elec tronically Signed By: Vivian Ochoa DO\.br\Date and Time Signed: 09/17/23 04:58 EDT ED Patient Education Noteon 09-17-2023 ED Patient Education Note Obstetrics and Gynecology Urinary Tract Infection, Adult A urinary tract infection (UTI) is an infection of any part of the urinary tract. The urinary tract includes: ? The kidneys. ? The ureters. ? The bladder. ? The urethra. These organs make, store, and get rid of pee (urine) in the body. What are the causes? This infection is caused by germs (bacteria) in your genital area. These germs grow and cause swelling (inflammation) of your urinary tract. What increases the risk? The following factors may make you more likely to develop this condition: ? Using a small, thin tube (catheter) to drain pee. ? Not being able to control when you pee or poop (incontinence). ? Being female. If you are female, these things can increase the risk: ? Using these methods to prevent : ? A medicine that kills sperm (spermicide). ? A device that blocks sperm (diaphragm). ? Having low levels of a female hormone (estrogen). ? Being . You are more likely to develop this condition if: ? You have genes that add to your risk. ? You are sexually active. ? You take antibiotic medicines. ? You have trouble peeing because of: ? A prostate that is bigger than normal, if you are male. ? A blockage in the part of your body that drains pee from the bladder. ? A kidney stone. ? A nerve condition that affects your bladder. ? Not getting enough to drink. ? Not peeing often enough. ? You have other conditions, such as: ? Diabetes. ? A weak disease-fighting system (immune system). ? Sickle cell disease. ? Gout. ? Injury of the spine. What are the signs or symptoms? Symptoms of this condition include: ? Needing to pee right away. ? Peeing small amounts often. ? Pain or burning when peeing. ? Blood in the pee. ? Pee that smells bad or not like normal. ? Trouble peeing. ? Pee that is cloudy. ? Fluid coming from the vagina, if you are female. ? Pain in the belly or lower back. Other symptoms include: ? Vomiting. ? Not feeling hungry. ? Feeling mixed up (confused). This may be the first symptom in older adults. ? Being tired and grouchy (irritable). ? A fever. ? Watery poop (diarrhea). How is this treated? ? Taking antibiotic medicine. ? Taking other medicines. ? Drinking enough water. In some cases, you may need to see a specialist. Follow these instructions at home: Medicines ? Take yqiw-nna-mkugqro and prescription medicines only as told by your doctor. ? If you were prescribed an antibiotic medicine, take it as told by your doctor. Do not stop taking it even if you start to feel better. General instructions ? Make sure you: ? Pee until your bladder is empty. ? Do not hold pee for a long time. ? Empty your bladder after sex. ? Wipe from front to back after peeing or pooping if you are a female. Use each tissue one time when you wipe. ? Drink enough fluid to keep your pee pale yellow. ? Keep all follow-up visits. Contact a doctor if: ? You do not get better after 1?2 days. ? Your symptoms go away and then come back. Get help right away if: ? You have very bad back pain. ? You have very bad pain in your lower belly. ? You have a fever. ? You have chills. ? You feeling like you will vomit or you vomit. Summary ? A urinary tract infection (UTI) is an infection of any part of the urinary tract. ? This condition is caused by germs in your genital area. ? There are many risk factors for a UTI. ? Treatment includes antibiotic medicines. ? Drink enough fluid to keep your pee pale yellow. This information is not intended to replace advice given to you by your health care provider. Make sure you discuss any questions you have with your health care provider. Document Revised: 11/24/2020 Document Reviewed: 11/24/2020 Elsevier Patient Education ? 2022 [employer] Normal [facility] ED Patient Summaryon 024 ED Patient Summary [address] [address] Patient Discharge Instructions Person Information Name: ALEJANDRA REAL Age: 27 Years Arrival Date: 09/17/2023 04:24:35 Discharge Diagnosis: Acute UTI Primary Care Physician: Lorri Ireland CNP Provider Information Primary Provider: Vivian Ochoa DO Advanced Bed And Breakfast Innkeeper:None The exam and treatment you received in the Emergency Department were for an urgent problem and are not intended as complete care. It is important that you follow up with a doctor, nurse practitioner, or physician?s orthotics assistant for ongoing care. If your symptoms become worse or you do not improve as expected and you are unable to reach your usual health care provider, you should return to the Emergency Department. We are available 24 hours a day. ALEJANDRA REAL has been given the following list of patient education materials, prescriptions and follow-up instructions: Follow-up Instructions: With: Address: When: Lorri Ireland [address] [facility] [address] [place] [address] Business (1) In 3 days 09/20/2023 Comments: Take the antibiotics as prescribed until you have completed the course. You can use the Pyridium every 8 hours as needed for burning. You can use the other medications as prescribed as needed for pain. Please follow-up with your primary care doctor for further evaluation management. Please return to the ED for any new or worsening symptoms. In the event that this physician does not participate in your insurance network, please consult with your insurance company to find a nearby participating provider. Patient Education Materials: Urinary Tract Infection, Adult, Ccik-ej-Urzm A MESSAGE TO ALL PATIENTS REGARDING OPIOIDS PRESCRIPTION OPIOIDS: WHAT YOU NEED TO KNOW Prescription opioids can be used to help relieve vzeketqh-pm-kuokbg pain and are often prescribed following a surgery or injury, or for certain health conditions. These medications can be an important part of the treatment but also come with serious risks. It is important to work with your healthcare provider to make sure you are getting the safest, most effective care. WHAT ARE THE RISKS AND SIDE EFFECTS OF OPIOID USE? Prescription opioids carry serious risks of addiction and overdose, especially with prolonged use. An opioid overdose, often marked by slowed breathing, can cause sudden . The use of prescription opioids can have a number of side effects as well, even when taken as directed: ? Tolerance?meaning you might need to take more of the medication for the same pain relief ? Physical dependence?meaning you have symptoms of withdrawal when a medication is stopped ? Increased sensitivity to pain ? Constipation ? Nausea, vomiting, and dry mouth ? Sleepiness and dizziness ? Confusion ? Depression ? Low levels of testosterone that can result in lower sex drive, energy, and strength ? Itching and sweating RISKS ARE GREATER WITH: ? History of drug misuse, substance use disorder, or overdose ? Mental health conditions (such as depression or anxiety) ? Sleep apnea ? Older age (65 years and older) ? Avoid alcohol while taking prescription opioids. Also, unless specifically advised by your health care provider, medications to avoid include: ? Benzodiazepines (such as Xanax or Valium) ? Muscle relaxants (such as Soma or Flexeril) ? Hypnotics (such as Ambien or Lunesta) ? Other prescription opioids KNOW YOUR OPTIONS Talk to your health care provider about ways to manage your pain that don?t involve prescription opioids. Some of these options may actually work better and have fewer risks and side effects. Options may include: ? Pain relievers such as acetaminophen, ibuprofen, and naproxen ? Some medication that are also used for depression or seizures ? Physical therapy and exercise ? Cognitive behavioral therapy, a psychological, goal-directed approach, in which patients learn how to modify physical, behavioral, and emotional triggers of pain and stress. IF YOU ARE PRESCRIBED OPIOIDS FOR PAIN: ? Never take opioids in greater amounts or more often than prescribed. ? Follow up with your primary health care provider. o Work together to create a plan on how to manage your pain. o Talk about ways to help manage your pain that don?t involve prescription opioids. o Talk about any and all concerns and side effects. ? Help prevent misuse and abuse o Never sell or share prescription opioids. o Never use another person?s prescription opioids. ? Store prescription opioids in a secure place and out of reach of others (this may include visitors, children, friends, and family). ? Safely dispose of unused prescription opioids: Find your community drug take-back program or your pharmacy mail-back program, or flush them down the toilet, f (more content not included)... Normal [facility] SEROLOGYOrdered By: Veena Keenan on 09-17-2023 HCG.beta subunit (U) [Moles/Vol] Negative Normal [facility] [place] BetaHcg Qualon 09-17-2023 HCG.beta subunit (U) [Moles/Vol] Negative Normal [facility] Comment on above: Performed By: #### 2 [id number] #### [facility] [address] [place] [address] UA with Cult Rflxon 09-17-19 24 Bilirubin Ql (U) Negative Normal Negative [facility] Comment on above: Performed By: #### 4 [id number] #### [facility] [address] [place] [address] Clarity (U) Clear Normal Clear [facility] Comment on above: Performed By: #### 4 [id number] #### [facility] [address] [place] [address] Color (U) Yellow Normal Yellow [facility] Comment on above: Result Comment: Micr oscopic readings are only performed on those samples that meet specific criteria set forth by [facility]. Performed By: #### 4 [id number] #### [facility] [address] [place] [address] Epithelial cells.squamous Auto (Urine sed) [#/Area] 3-4 Abnormal 0-2 [facility] Comment on above: Performed By: #### 4 [id number] #### [facility] [address] [place] [address] Glucose Ql (U) Negative Normal Negative [facility] Comment on above: Performed By: #### 4 [id number] #### [facility] [address] [place] [address] Hemoglobin Auto test strip (U) [Mass/Vol] Trace Abnormal Negative [facility] Comment on above: Performed By: #### 4 [id number] #### [facility] [address] [place] [address] Ketones Auto test strip Ql (U) Trace Abnormal Negative [facility] Comment on above: Performed By: #### 4 [id number] #### [facility] [address] [place] [address] Leukocyte esterase Auto test strip Ql (U) 25 Obie/uL Normal Negative [facility] Comment on above: Performed By: #### 4 [id number] #### [facility] [address] [place] [address] Mucus Auto Ql (U) Trace Normal Negative [facility] Comment on above: Performed By: #### 4 [id number] #### [facility] [address] [place] [address] Nitrite Auto test strip Ql (U) Negative Normal Negative [facility] Comment on above: Performed By: #### 4 [id number] #### [facility] [address] [place] [address] pH (U) 6.0 [pH] Normal 5.0-9.0 [facility] Comment on above: Performed By: #### 4 [id number] #### [facility] [address] [place] [address] Protein Ql (U) Trace Abnormal Negative [facility] Comment on above: Performed By: #### 4 [id number] #### [facility] [address] [place] [address] RBC Ql (U) 4-20 Abnormal 0-3 [facility] Comment on above: Performed By: #### 4 [id number] #### [facility] [address] [place] [id number] Specific gravity (U) [Rel density] 1.035 Normal 1.005-1.030 [facility] Comment on above: Performed By: #### 4 [id number] #### [facility] [address] [id number] Urobilinogen (U) [Mass/Vol] 3 mg/dL Abnormal Negative [facility] Comment on above: Performed By: #### 4 [id number] #### [facility] [address] [id number] WBC Auto (Urine sed) [#/Area] 6-15 Abnormal 0-5 [facility] Comment on above: Performed By: #### 4 [id number] #### [facility] [address] [id number] Type of Urine collection method Clean Catch Normal [facility] Comment on above: Performed By: #### 4 [id number] #### [facility] [address] [id number] URINALYSISOrdered By: Tri Keenan on 09-17-2023 Bilirubin Ql (U) Negative Normal Negativemg/ d L [facility] [place] Auto SS Clarity (U) Clear (09/17/23 4:34 AM) Normal Clear [facility] Auto SS Color (U) Yellow 1 (09/17/23 4:34 AM) Normal Yellow [facility] Auto SS Comment on above: Interpretive Data: M icroscopic readings are only performed on those samples that meet specific criteria set forth by [facility]. Epithelial cells.squamous Auto (Urine sed) [#/Area] 3-4 graded/HPF Invalid Interpretation Code 0-2graded/HP F [facility] UA Auto SS Glucose Ql (U) Negative Normal Negativemg/d L [facility] UA Auto SS Hemoglobin Auto test strip (U) [Mass/Vol] Trace Invalid Interpretation Code Negative [facility] UA Auto SS Ketones Auto test strip Ql (U) Trace mg/dL Invalid Interpretation Code Negativemg/d L [facility] UA Auto SS Leukocyte esterase Auto test strip Ql (U) 25 Obie/uL (09/17/23 4:34 AM) Normal Negative [facility] UA Auto SS Mucus Auto Ql (U) Trace Normal Negative [facility] UA Auto SS Nitrite Auto test strip Ql (U) Negative Normal Negativemg/d L [facility] UA Auto SS pH (U) 6.0 (09/17/23 4:34 AM) Normal 5.0 - 9.0 [facility] UA Auto SS Protein Ql (U) Trace mg/dL Invalid Interpretation Code Negativemg/d L [facility] UA Auto SS RBC Ql (U) 4-20 graded/HPF Invalid Interpretation Code 0-3graded/HP F [facility] UA Auto SS Specific gravity (U) [Rel density] 1.035 (09/17/23 4:34 AM) Normal 1.005 - 1.030 [facility] UA Auto SS Urobilinogen (U) [Mass/Vol] 3 mg/dL Invalid Interpretation Code Negativemg/d L [facility] UA Auto SS WBC Auto (Urine sed) [#/Area] 6-15 *ABN* (09/17/23 4:34 AM) Invalid Interpretation Code 0-5 [facility] UA Auto SS URINALYSISOrdered By: Abbi Ochoa on 09-17-2023 UA Spec Desc Clean Catch (09/17/23 4:34 AM) Normal [facility] [place] Auto SS Work Phone: Consent for Treatmenton 08-27 Consent for Treatment [id number]#1 .00TIFF Normal [facility] and Vascular Office/Cl inic Noteon 09-15-2023 Heart and Vascular Office/Clinic Note Normal [facility] Comment on above: Result Comment: Elec tronically Signed By: Bon DC, Fatoumata FVinh\.br\Date and Time Signed: 09/15/23 09:38 EDT Clipboard Summaryon 09-14-19 Clipboard Summary {[id number] -[id number] -[id number]}XML Normal [facility] Consent for Treatmenton 08-26 Consent for Treatment [id number]#1 .00TIFF Normal [facility] Discharge Instructionson Discharge Instructions [id number]# 1.00TIFF Normal [facility] ED Clinical Summaryon 2023 ED Clinical Summary Normal [facility] ED Note-Physicianon 09-14-19 ED Note-Physician Normal [facility] Comment on above: Result Comment: Elec tronically Signed By: Sy Pickard PA-C\.br\Date and Time Signed: 09/14/23 12:52 EDT\.br\Electronically Co-Signed By: Darren Lomax DO\.br\Date and Time Co-Signed: 09/14/23 13:34 EDT ED Patient Education Noteon 09-14-2023 ED Patient Education Note Normal [facility] ED Patient Summaryon ED Patient Summary Normal [facility] Automated urine color determ inationOrdered By: PROVIDER TEMP on 09-04-2023 Color (U) Yellow Normal Yellow [facility] Comment on above: Order Comment: Name Collection Type:: Clean-Voided Midstream Performed By: #### U A #### [facility] [address] [place] [address] Bilirubin Test strip Ql (U)O rdered By: PROVIDER TEMP on 09-04-2023 Bilirubin Ql (U) Negative Negative [facility] HCG ( test) IA.rapi d Ql (U)Ordered By: PROVIDER TEMP on 09-04-2023 HCG ( test) Ql (U) Negative [facility] HCG,Urineon 09-04-2023 Beta HCG ( test) Ql (U) Negative Normal [facility] Comment on above: Result Comment: PERF ORMED BY: [place] [address] PATHOLOGIST MEAT TE[employer] LEAD ALEXANDER SANDERS M.D. Performed By: #### U HCG #### [facility] [address] [place] [address] [place] Ketones Auto test strip (U) [Mass/Vol]Ordered By: PROVIDER TEMP on 09-04-2023 Ketones (U) [Mass/Vol] Negative Negative [facility] Nitrite Test strip Ql (U)Ord ered By: PROVIDER TEMP on 09-04-2023 Nitrite Ql (U) Negative Negative [facility] Protein Auto test strip (U) [Mass/Vol]Ordered By: PROVIDER TEMP on 09-04-2023 Protein (U) [Mass/Vol] Negative Negative [facility] Specific gravity Auto test s trip (U) [Rel density]Ordered By: PROVIDER TEMP on 09-04-2023 Specific gravity (U) [Rel density] 1.007 1.001-1.030 [facility] Urinalysison 09-04-2023 Appearance (U) Clear Normal Clear [facility] Comment on above: Order Comment: Name Collection Type:: Clean-Voided Midstream Performed By: #### U A #### [facility] [address] [place] [address] Bilirubin,Urine Negative Normal Negative [facility] Comment on above: Order Comment: Name Collection Type:: Clean-Voided Midstream Performed By: #### U A #### [facility] [address] [place], [place] [id number] [facility] Glucose Ql (U) Normal Normal Normal [facility] Comment on above: Order Comment: Name Collection Type:: Clean-Voided Midstream Performed By: #### U A #### [facility] [address] [place], [place] [id number] [facility] Ketones Ql (U) Negative Normal Negative [facility] Comment on above: Order Comment: Name Collection Type:: Clean-Voided Midstream Performed By: #### U A #### [facility] [address] [id number] [place] Leukocyte esterase Test strip Ql (U) Negative Normal Negative [facility] Comment on above: Order Comment: Name Collection Type:: Clean-Voided Midstream Performed By: #### U A #### [facility] [address] [place], [place] [id number] [place] Nitrite,Urine Negative Normal Negative [facility] Comment on above: Order Comment: Name Collection Type:: Clean-Voided Midstream Performed By: #### U A #### [facility] [address] [place] [address] [place] Occult Blood,Urine Negative Normal Negative [facility] Comment on above: Order Comment: Name Collection Type:: Clean-Voided Midstream Result Comment: PERF ORMED BY: [place] [address] PATHOLOGIST [employer] LEAD ALEXANDER SANDERS M.D. Performed By: #### U A #### [facility] [address] [place] [address] [place] Protein,Urine Negative Normal Negative [facility] Comment on above: Order Comment: Name Collection Type:: Clean-Voided Midstream Performed By: #### U A #### [address] Specificy [place],Urine 1.007 Normal 1.001-1.030 [facility] Comment on above: Order Comment: Name Collection Type:: Clean-Voided Midstream Performed By: #### U A #### [place] [address] [place] Urobilinogen,Urine Normal Normal Normal [facility] Comment on above: Order Comment: Name Collection Type:: Clean-Voided Midstream Performed By: #### U A #### [address] Urine clarity by refractomet ry automatedOrdered By: PROVIDER TEMP on 09-04-2023 Clarity Refractometry automated (U) Clear Clear [facility] Urine glucose measurement by automated test strip (mass/volume)Ordered By: PROVIDER TEMP on 09-04-2023 Glucose Auto test strip (U) [Mass/Vol] Normal mg/dL Normal [facility] Urine hemoglobin detection b y automated test stripOrdered By: PROVIDER TEMP on 09-04-2023 Hemoglobin Auto test strip Ql (U) Negative Negative [facility] Urine leukocyte esterase det ection by automated test stripOrdered By: PROVIDER TEMP on 09-04-2023 Leukocyte esterase Auto test strip Ql (U) Negative Negative [facility] Urine pH measurement by auto mated test stripOrdered By: PROVIDER TEMP on 09-04-2023 pH (U) 7.5 [pH] Normal 5.0-9.0 [facility] Comment on above: Order Comment: Name Collection Type:: Clean-Voided Midstream Performed By: #### U A #### [facility] [address] Urobilinogen Auto test strip (U) [Mass/Vol]Ordered By: PROVIDER TEMP on 09-04-2023 Urobilinogen (U) [Mass/Vol] Normal mg/dL Normal [facility] Urinalysis, Routineon 2023 Bilirubin, SemiQt,Ur Negative Normal NEG [facility] Comment on above: Performed By: #### U A #### [facility] [address] [place], [place] [address] Part Maker: Khanh Beaulieu MD Blood, Urine Negative Normal NEG [facility] Comment on above: Performed By: #### U A #### [facility] [address] [place], [place] [address] Part Maker: Khanh Beaulieu MD Clarity (U) Clear Normal CLEAR [facility] Comment on above: Performed By: #### U A #### [facility] [address] [place], [place] [address] Part Maker: Khanh Beaulieu MD Color (U) Yellow Normal YEL [facility] Comment on above: Performed By: #### U A #### [facility] [address] [place], [place] [id number] Part Maker: Khanh Beaulieu MD Comment Normal [facility] Comment on above: Performed By: #### U A #### [facility] [address], [place] [address] Part Maker: Khanh Beaulieu MD Glucose Ql (U) Negative Normal NEG [facility] Comment on above: Performed By: #### U A #### [facility] [address] [place] [address] Part Maker: Khanh Beaulieu MD Ketones Ql (U) Negative Normal NEG [facility] Comment on above: Performed By: #### U A #### [facility] [address] [place] [address] Part Maker: Khanh Beaulieu MD Leukocyte esterase Test strip Ql (U) Negative Normal NEG [facility] Comment on above: Performed By: #### U A #### [facility] [address] [place] [address] Part Maker: Khanh Beaulieu MD Nitrite,Ur Negative Normal NEG [facility] Comment on above: Performed By: #### U A #### [facility] [address] [place], [place] [address] Part Maker: Khanh Beaulieu MD PH,Ur 7.0 Normal 5.0-8.0 [facility] Comment on above: Performed By: #### U A #### [facility] [address] [place] [address] Part Maker: Khanh Beaulieu MD Protein Ql (U) Negative Normal NEG [facility] Comment on above: Performed By: #### U A #### [facility] [address] [place] [address] Part Maker: Khanh Beaulieu MD Spec. [place],Ur 1.010 Normal 1.005-1.030 [facility] Comment on above: Performed By: #### U A #### [facility] [address] [place] [address] Part Maker: Khanh Beaulieu MD Urobilinogen,Ur Normal Normal 0.0-1.0 [facility] Comment on above: Performed By: #### U A #### [facility] [address] [place] [address] Part Maker: Khanh Beaulieu MD Referrals Officeon 4 Referrals Office [id number]# 1.00TIFF Normal [facility] Consent for Treatmenton 07-28 Consent for Treatment [id number]#1 .00TIFF Normal [facility] Discharge Instructionson Discharge Instructions [id number]# 1.00TIFF Normal [facility] ED Clinical Summaryon 2023 ED Clinical Summary Normal [facility] ED Note-Physicianon 08-23-19 ED Note-Physician Normal [facility] Comment on above: Result Comment: Elec tronically Signed By: Savanna Rivero PA-C\.br\Date and Time Signed: 08/23/23 13:04 EDT\.br\Electronically Co-Signed By: Savanna Rivero PA-C.br\Date and Time Co-Signed: 08/23/23 13:24 EDT\.br\Electronically Co-Signed By: Darren Lomax DO\.br\Date and Time Co-Signed: 08/23/23 14:48 EDT ED Patient Education Noteon 08-23-2023 ED Patient Education Note Normal [facility] ED Patient Summaryon 024 ED Patient Summary Normal [facility] U BetaHcg Qualon 08-23-2023 HCG.beta subunit (U) [Moles/Vol] Negative Normal [facility] Comment on above: Performed By: #### 2 [id number], [id number] ####[facility] [address] [place] [address] UA with Cult Rflxon 08-23-19 Bilirubin Ql (U) Negative Normal Negative [facility] Comment on above: Performed By: #### 2 [id number], [id number] ####[facility] [address] [place] [address] Clarity (U) Clear Normal Clear [facility] Comment on above: Performed By: #### 2 [id number], [id number] ####[address] [address] Color (U) Light-Yellow Normal Yellow [facility] Comment on above: Result Comment: Micr oscopic readings are only performed on those samples that meet specific criteria set forth by [facility]. Performed By: #### 2 [id number], [id number] ####[address] [address] Glucose Ql (U) Negative Normal Negative [facility] Comment on above: Performed By: #### 2 [id number], [id number] ####[address] [address] Hemoglobin Auto test strip (U) [Mass/Vol] Negative Normal Negative [facility] Comment on above: Performed By: #### 2 [id number], [id number] ####[address] [address] Ketones Auto test strip Ql (U) Negative Normal Negative [facility] Comment on above: Performed By: #### 2 [id number], [id number] ####[address] [address] Leukocyte esterase Auto test strip Ql (U) Negative Normal Negative [facility] Comment on above: Performed By: #### 2 [id number], [id number] ####[address] [address] Nitrite Auto test strip Ql (U) Negative Normal Negative [facility] Comment on above: Performed By: #### 2 [id number], [id number] ####[address] [address] pH (U) 7.0 [pH] Invalid Interpretation Code 5.0-9.0 [facility] Comment on above: Performed By: #### 2 [id number], [id number] ####[address] [place] [address] Protein Ql (U) Negative Normal Negative [facility] Comment on above: Performed By: #### 2 [id number], [id number] ####[facility] [address] [place] [address] Specific gravity (U) [Rel density] 1.017 Invalid Interpretation Code 1.005-1.030 [facility] Comment on above: Performed By: #### 2 [id number], [id number] ####[address] [address] Urobilinogen (U) [Mass/Vol] Negative Normal Negative [facility] Comment on above: Performed By: #### 2 [id number], [id number] ####[address] [address] Type of Urine collection method Clean Catch Normal [facility] Comment on above: Performed By: #### 2 [id number], [id number] ####[address] [address] XR Abdomen 1 Viewon 08-23-19 24 XR Abdomen 1 View Normal [facility] Alanine aminotransferase [En zymatic activity/volume] in Serum or PlasmaOrdered By: Janeth Johnson on 08-20-2023 ALT [Catalytic activity/Vol] 14 U/L Normal 7-52 [facility] Comment on above: Performed By: #### C MP, LIPASE, CBC #### [facility] [address] Albumin [Mass/volume] in Ser um or Plasma by Bromocresol green (BCG) dye binding methoOrdered By: Janeth Johnson on 08-20-2023 Albumin BCG dye [Mass/Vol] 4.8 g/dL 3.5-5.7 [facility] Alkaline phosphatase [Enzyma tic activity/volume] in Serum or PlasmaOrdered By: Janeth Johnson on 08-20-2023 ALP [Catalytic activity/Vol] 136 U/L High 34-104 [facility] Comment on above: Performed By: #### C MP, LIPASE, CBC #### [address] Aspartate aminotransferase [ Enzymatic activity/volume] in Serum or PlasmaOrdered By: Janeth Johnson on 08-20-2023 AST [Catalytic activity/Vol] 20 U/L Normal 13-39 [facility] Comment on above: Performed By: #### C MP, LIPASE, CBC #### [address] Automated basophil %Ordered By: Janeth Johnson on 08-20-2023 Basophils/100 WBC (Bld) 0.8 % Normal . [facility] Comment on above: Performed By: #### C MP, LIPASE, CBC #### [address] Automated basophil countOrde red By: Janeth Johnson on 08-20-2023 Basophils (Bld) [#/Vol] 0.1 10*3/uL Normal 0.0-0.2 [facility] Comment on above: Result Comment: PERF ORMED BY: [place] [address] PATHOLOGIST ME[employer] TEAM LEAD ALEXANDER SANDERS M.D. Performed By: #### C MP, LIPASE, CBC #### [address] Automated blood monocyte cou ntOrdered By: Janeth Johnson on 08-20-2023 Monocytes (Bld) [#/Vol] 0.4 10*3/uL Normal 0.0-0.8 [facility] Comment on above: Performed By: #### C MP, LIPASE, CBC #### [address] Automated eosinophil %Ordere d By: Janeth Johnson on 08-20-2023 Eosinophils/100 WBC (Bld) 1.1 % Normal . [facility] Comment on above: Performed By: #### C MP, LIPASE, CBC #### [address] Automated eosinophil countOr dered By: Janeth Johnson on 08-20-2023 Eosinophils (Bld) [#/Vol] 0.1 10*3/uL Normal 0.0-0.45 [facility] Comment on above: Performed By: #### C MP, LIPASE, CBC #### [address] Automated monocyte %Ordered By: Janeth Johnson on 08-20-2023 Monocytes/100 WBC (Bld) 5.2 % Normal . F [facility] Comment on above: Performed By: #### C MP, LIPASE, CBC #### [address] Automated neutrophil %Ordere d By: Janeth Johnson on 08-20-2023 Neutrophils/100 WBC (Bld) 66.2 % Normal . [facility] Comment on above: Performed By: #### C MP, LIPASE, CBC #### [address] Automated urine color determ inationOrdered By: Janeth Johnson on 08-20-2023 Color (U) Yellow Normal Yellow [facility] Comment on above: Order Comment: Name Collection Type:: Clean-Voided Midstream Performed By: #### C MP, LIPASE, CBC #### [address] Bilirubin Test strip Ql (U)O rdered By: Janeth Johnson on 08-20-2023 Bilirubin Ql (U) Negative Negative [facility] Bilirubin.total [Mass/volume ] in Serum or PlasmaOrdered By: Janeth Johnson on 08-20-2023 Bilirubin [Mass/Vol] 0.4 mg/dL Normal 0.3-1.0 [facility] Comment on above: Performed By: #### C MP, LIPASE, CBC #### [address] abdomen pelvis w conon CT abdomen pelvis w con [facility] [place] [address] [place] [address] CT Scan Report Signed Patient: Alejandra Real MR#: [id number] 20 : 1995 Acct:[id number] Age/Sex: 27 / F ADM Date: 08/20/23 Loc: ER Room: Type: [facility] ER Attending Dr: Copies to: Janeth Johnson APRN Ordering Provider: Janeth Johnson APRN Date of Service: 08/20/23 CT/CT abdomen pelvis w con: Abdominal Pain CT abdomen pelvis w con 08/20/2023 1:13 PM SIGNS AND SYMPTOMS: Increasing right lower quadrant pain with nausea, pelvic congestion syndrome TECHNIQUE: Multidetector ct axial images of the abdomen and pelvis were obtained with IV contrast. Multiplanar reformats were performed and reviewed to further define anatomy and possible pathology. CT was performed with one or more of the following dose reduction techniques: Automated exposure control, adjustment of the mA and/or kV according to patient size, or use of iterative reconstruction technique. COMPARISON: None. FINDINGS: Lower Chest: Within normal limits. ABDOMEN: Liver: Within normal limits. Bile Ducts: Normal caliber. Gallbladder: No calcified gallstones. Normal caliber wall. Pancreas: Within normal limits. Spleen: Within normal limits. Adrenals: Within normal limits. Kidneys: Within normal limits. Pelvis: Reproductive Organs: Prominent vasculature is noted along the uterus and adnexa, left greater than right with prominence of the left gonadal vein. This is consistent with the history of pelvic congestion syndrome. Ureters: Within normal limits. Bladder: Within normal limits. Bowel: Normal caliber. There is a normal appendix in the right lower quadrant. Mesenteric Lymph Nodes: No enlarged mesenteric lymph nodes. Peritoneum: No ascites or free air, no fluid collection. Vessels: within normal limits Retroperitoneum: Within normal limits. Abdominal Wall: Within normal limits. Bones: Degenerative changes are noted in the thoracic spine and sacroiliac joints. CT/CT abdomen pelvis w con IMPRESSION: Prominent vasculature is noted along the uterus and adnexa, left greater than right with prominence of the left gonadal vein. This is consistent with the history of pelvic congestion syndrome. There is a normal appendix in the right lower quadrant. No bowel obstruction or obstructive uropathy. Impression dictated by: Yayo Pablo M.D.08/20/2023 2:46 PM Dictation Location: RADIO-PC-13 Transcribed By: DENILSON 08/20/231445 Dictated By: Yayo Pablo II, MD 08/20/23 144 Signed By: 08/20/23 144 Normal [facility] Calcium [Mass/volume] in Ser um or PlasmaOrdered By: Janeth Johnson on 08-20-2023 Calcium [Mass/Vol] 9.7 mg/dL Normal 8.6-10.3 [facility] Comment on above: Performed By: #### C MP, LIPASE, CBC #### [address] Carbon dioxide, total [Moles /volume] in Serum or PlasmaOrdered By: Janeth Johnson on 08-20-2023 CO2 [Moles/Vol] 30.4 mmol/L Normal 21.0-31.0 [facility] Comment on above: Performed By: #### C MP, LIPASE, CBC #### [address] Chloride [Moles/volume] in S gabbie or PlasmaOrdered By: Janeth Johnson on 08-20-2023 Chloride [Moles/Vol] 104 mmol/L Normal 98-107 [facility] Comment on above: Performed By: #### C MP, LIPASE, CBC #### [address] Complete Blood Count Auto Di ffon 08-20-2023 Mean Corpuscular HGB Conc 34.0 g/dL Normal 32.0-35.0 [facility] Comment on above: Performed By: #### C MP, LIPASE, CBC #### [address] Monocytes/100 WBC (Bld) 15.39 % Normal 0.00-20.00 [facility] Comment on above: Performed By: #### C MP, LIPASE, CBC #### [address] NRBC% 0.2 /100{WBC} Normal 0-0.5 [facility] Comment on above: Performed By: #### C MP, LIPASE, CBC #### [address] Comprehensive Metabolic Pane chata 08-20-2023 Albumin [Mass/Vol] 4.8 g/dL Normal 3.5-5.7 [facility] Comment on above: Performed By: #### C MP, LIPASE, CBC #### [address] Creatinine Clr Calc Pharmacy 100.77 Normal [facility] Comment on above: Performed By: #### C MP, LIPASE, CBC #### [address] GFR/1.73 sq M.predicted MDRD (S/P/Bld) [Vol rate/Area] mL/min/{1.73_m2} Normal [facility] Comment on above: Performed By: #### C MP, LIPASE, CBC #### [address] Creatinine [Mass/volume] in Serum or PlasmaOrdered By: Janeth Johnson on 08-20-2023 Creatinine [Mass/Vol] 0.75 mg/dL Normal 0.60-1.20 [facility] Comment on above: Performed By: #### C MP, LIPASE, CBC #### [address] Erythrocyte distribution wid th [Ratio] by Automated countOrdered By: Janeth Johnson on 08-20-2023 Erythrocyte distribution width (RBC) [Ratio] 13.1 % Normal 11.9-15.3 [facility] Comment on above: Performed By: #### C MP, LIPASE, CBC #### [address] Erythrocytes [#/volume] in B lood by Automated countOrdered By: Janeth Johnson on 08-20-2023 RBC (Bld) [#/Vol] 4.81 10*6/uL Normal 3.60-5.00 [facility] Comment on above: Performed By: #### C MP, LIPASE, CBC #### [address] [address] [place] Glucose [Mass/volume] in Ser um or PlasmaOrdered By: Janeth Johnson on 08-20-2023 Glucose [Mass/Vol] 104 mg/dL High 70-100 [facility] Comment on above: ADA recommended refe rence rangeRandom Glucose Reference Range is dependent on time and content of last meal. Glucose of more than 200 mg/dL in a nonstressed, ambulatory subject supports the diagnosis of Diabetes Mellitus. Result Comment: [place] Glucose Reference Range is dependent on time and content of last meal. Glucose of more than 200 mg/dL in a nonstressed, ambulatory subject supports the diagnosis of Diabetes Mellitus. ADA recommended reference range Performed By: #### C MP, LIPASE, CBC #### [facility] [address] [place] [address] HCG ( test) IA.rapi d Ql (U)Ordered By: Janeth Johnson on 08-20-2023 HCG ( test) Ql (U) Negative [facility] HCG,Urineon 08-20-2023 Beta HCG ( test) Ql (U) Negative Normal [facility] Comment on above: Order Comment: Name Collection Type:: Clean-Voided Midstream Result Comment: PERF ORMED BY: [place] [address] PATHOLOGIST [employer] ALEXANDER SANDERS M.D. Performed By: #### C MP, LIPASE, CBC #### [facility] [address] [place] [address] Hematocrit [Volume Fraction] of Blood by Automated countOrdered By: Janeth Johnson on 08-20-2023 Hematocrit (Bld) [Volume fraction] 42.9 % Normal 34.0-46.4 [facility] Comment on above: Performed By: #### C MP, LIPASE, CBC #### [facility] [address] [place] [address] Hemoglobin [Mass/volume] in BloodOrdered By: Janeth Johnson on 08-20-2023 Hemoglobin (Bld) [Mass/Vol] 14.6 g/dL Normal 11.8-15.4 [facility] Comment on above: Performed By: #### C MP, LIPASE, CBC #### [address] Ketones Auto test strip (U) [Mass/Vol]Ordered By: Janeth Johnson on 08-20-2023 Ketones (U) [Mass/Vol] Negative Negative [facility] Leukocytes [#/volume] correc rosy for nucleated erythrocytes in Blood by Automated counOrdered By: Janeth Johnson on 08-20-2023 WBC corrected for nucl RBC Auto (Bld) [#/Vol] 7.5 10*3/uL 3.8-11.6 [facility] Leukocytes [#/volume] in Blo od by Automated countOrdered By: Janeth Johnson on 08-20-2023 WBC (Bld) [#/Vol] 7.5 10*3/uL Normal 3.8-11.6 [facility] Comment on above: Performed By: #### C MP, LIPASE, CBC #### [address] Lipase [Enzymatic activity/v olume] in Serum or PlasmaOrdered By: Janeth Johnson on 08-20-2023 Lipase [Catalytic activity/Vol] 28.0 U/L Normal 11.0-82.0 [facility] Comment on above: Result Comment: PERF ORMED BY: [place] [address] PATHOLOGIST [employer] ALEXANDER SANDERS M.D. Performed By: #### C MP, LIPASE, CBC #### [place] [address] [place] Lymphocytes [#/volume] in Bl ood by Automated countOrdered By: Janeth Johnson on 08-20-2023 Lymphocytes (Bld) [#/Vol] 2.0 10*3/uL Normal 1.00-4.8 [facility] Comment on above: Performed By: #### C MP, LIPASE, CBC #### [place] [address] [place] Lymphocytes/100 leukocytes i n Blood by Automated countOrdered By: Janeth Johnson on 08-20-2023 Lymphocytes/100 WBC (Bld) 26.7 % Normal . [facility] Comment on above: Performed By: #### C MP, LIPASE, CBC #### [facility] [address] [place] [address] MCH [Entitic mass] by Automa rosy countOrdered By: Janeth Johnson on 08-20-2023 MCH (RBC) [Entitic mass] 30.4 pg Normal 24.7-34.3 [facility] Comment on above: Performed By: #### C MP, LIPASE, CBC #### [address] MCHC Auto (RBC) [Mass/Vol]Or dered By: Janeth Johnson on 08-20-2023 MCHC (RBC) [Mass/Vol] 34.0 g/dL 32.0-35.0 [facility] MCV [Entitic volume] by Auto mated countOrdered By: Janeth Johnson on 08-20-2023 MCV (RBC) [Entitic vol] 89.2 fL Normal 80-100 [facility] Comment on above: Performed By: #### C MP, LIPASE, CBC #### [facility] [address] [place] [address] Monocyte distribution width [Entitic volume] in Blood by AutomatedOrdered By: Janeth Johnson on 08-20-2023 Monocyte distribution width Auto (Bld) [Entitic vol] 15.39 % 0.00-20.00 [facility] Neutrophils [#/volume] in Bl ood by Automated countOrdered By: Janeth Johnson on 08-20-2023 Neutrophils (Bld) [#/Vol] 5.0 10*3/uL Normal 1.8-7.7 [facility] Comment on above: Performed By: #### C MP, LIPASE, CBC #### [address] Nitrite Test strip Ql (U)Ord ered By: Janeth Johnson on 08-20-2023 Nitrite Ql (U) Negative Negative [facility] No Panel InformationOrdered By: Janeth Johnson on 08-20-2023 Estimated GFR (CKD-EPI) > 60.0 mL/Min [facility] Creatinine Clearance (Chem 100.77 [facility] Nucleated erythrocytes [Pres ence] in Blood by Automated countOrdered By: Janeth Johnson on 08-20-2023 Nucleated RBC Auto Ql (Bld) 0.2 /100{WBC} 0-0.5 [facility] Platelet mean volume [Entiti c volume] in Blood by Automated countOrdered By: Janeth Johnson on 08-20-2023 Platelet mean volume (Bld) [Entitic vol] 7.5 fL Normal 6.3-10.7 [facility] Comment on above: Performed By: #### C MP, LIPASE, CBC #### [facility] [address] Platelets [#/volume] in Bloo d by Automated countOrdered By: Janeth Johnson on 08-20-2023 Platelets (Bld) [#/Vol] 447 10*3/uL Normal 150-450 [facility] Comment on above: Performed By: #### C MP, LIPASE, CBC #### [facility] [address] Potassium [Moles/volume] in Serum or PlasmaOrdered By: Janeth Johnson on 08-20-2023 Potassium [Moles/Vol] 3.7 mmol/L Normal 3.5-5.1 [facility] Comment on above: Performed By: #### C MP, LIPASE, CBC #### [facility] [address] Protein Auto test strip (U) [Mass/Vol]Ordered By: Janeth Johnson on 08-20-2023 Protein (U) [Mass/Vol] Negative Negative [facility] Protein [Mass/volume] in Ser um or PlasmaOrdered By: Janeth Johnson on 08-20-2023 Protein [Mass/Vol] 7.8 g/dL Normal 6.4-8.9 [facility] Comment on above: Performed By: #### C MP, LIPASE, CBC #### [address] Serum globulin measurement b y calculation (mass/volume)Ordered By: Janeth Johnson on 08-20-2023 Globulin (S) [Mass/Vol] 3.0 g/dL Normal F [facility] Comment on above: Performed By: #### C MP, LIPASE, CBC #### [address] Serum or plasma albumin/glob ulin mass ratioOrdered By: Janeth Johnson on 08-20-2023 Albumin/Globulin [Mass ratio] 1.6 {ratio} Normal [facility] Comment on above: Performed By: #### C MP, LIPASE, CBC #### [address] Serum or plasma anion gap de terminationOrdered By: Janeth Johnson on 08-20-2023 Anion gap [Moles/Vol] 9.3 mmol/L Normal 6.0-15.0 [facility] Comment on above: Performed By: #### C MP, LIPASE, CBC #### [address] Sodium [Moles/volume] in Ser um or PlasmaOrdered By: Janeth Johnson on 08-20-2023 Sodium [Moles/Vol] 140 mmol/L Normal 136-145 [facility] Comment on above: Performed By: #### C MP, LIPASE, CBC #### [address] Specific gravity Auto test s trip (U) [Rel density]Ordered By: Janeth Johnson on 08-20-2023 Specific gravity (U) [Rel density] 1.011 1.001-1.030 [facility] Urea nitrogen [Mass/volume] in Serum or PlasmaOrdered By: Janeth Johnson on 08-20-2023 Urea nitrogen [Mass/Vol] 6 mg/dL Low 7-25 [facility] Comment on above: Performed By: #### C MP, LIPASE, CBC #### [address] Urinalysison 08-20-2023 Appearance (U) Clear Normal Clear [facility] Comment on above: Order Comment: Name Collection Type:: Clean-Voided Midstream Performed By: #### C MP, LIPASE, CBC #### [place] [address] [place] Bilirubin,Urine Negative Normal Negative [facility] Comment on above: Order Comment: Name Collection Type:: Clean-Voided Midstream Performed By: #### C MP, LIPASE, CBC #### [address] Glucose Ql (U) Normal Normal Normal [facility] Comment on above: Order Comment: Name Collection Type:: Clean-Voided Midstream Performed By: #### C MP, LIPASE, CBC #### [address] Ketones Ql (U) Negative Normal Negative [facility] Comment on above: Order Comment: Name Collection Type:: Clean-Voided Midstream Performed By: #### C MP, LIPASE, CBC #### [address] Leukocyte esterase Test strip Ql (U) Negative Normal Negative [facility] Comment on above: Order Comment: Name Collection Type:: Clean-Voided Midstream Performed By: #### C MP, LIPASE, CBC #### [place] [address] [place] Nitrite,Urine Negative Normal Negative [facility] Comment on above: Order Comment: Name Collection Type:: Clean-Voided Midstream Performed By: #### C MP, LIPASE, CBC #### [place] [address] [place] Occult Blood,Urine Negative Normal Negative [facility] Comment on above: Order Comment: Name Collection Type:: Clean-Voided Midstream Performed By: #### C MP, LIPASE, CBC #### [place] [address] [place] Protein,Urine Negative Normal Negative [facility] Comment on above: Order Comment: Name Collection Type:: Clean-Voided Midstream Performed By: #### C MP, LIPASE, CBC #### [facility] [address] Specificy [place],Urine 1.011 Normal 1.001-1.030 [facility] Comment on above: Order Comment: Name Collection Type:: Clean-Voided Midstream Performed By: #### C MP, LIPASE, CBC #### [facility] [address] Urobilinogen,Urine Normal Normal Normal [facility] Comment on above: Order Comment: Name Collection Type:: Clean-Voided Midstream Performed By: #### C MP, LIPASE, CBC #### [facility] [address] Urine clarity by refractomet ry automatedOrdered By: Janeth Johnson on 08-20-2023 Clarity Refractometry automated (U) Clear Clear [facility] Urine glucose measurement by automated test strip (mass/volume)Ordered By: Janeth Johnson on 08-20-2023 Glucose Auto test strip (U) [Mass/Vol] Normal mg/dL Normal [facility] Urine hemoglobin detection b y automated test stripOrdered By: Janeth Johnson on 08-20-2023 Hemoglobin Auto test strip Ql (U) Negative Negative [facility] Urine leukocyte esterase det ection by automated test stripOrdered By: Janeth Johnson on 08-20-2023 Leukocyte esterase Auto test strip Ql (U) Negative Negative [facility] Urine pH measurement by auto mated test stripOrdered By: Janeth Johnson on 08-20-2023 pH (U) 7.5 [pH] Normal 5.0-9.0 [facility] Comment on above: Order Comment: Name Collection Type:: Clean-Voided Midstream Performed By: #### C MP, LIPASE, CBC #### [facility] [address] Urobilinogen Auto test strip (U) [Mass/Vol]Ordered By: Janeth Johnson on 08-20-2023 Urobilinogen (U) [Mass/Vol] Normal mg/dL Normal [facility] Consent for Treatmenton 07-28 Consent for Treatment [id number] .[id number] Normal [facility] Discharge Instructionson Discharge Instructions [id number] 1.00TIFF Normal [facility] ED Clinical Summaryon 2023 ED Clinical Summary Normal [facility] ED Note-Physicianon 08-18-19 24 ED Note-Physician Normal [facility] Comment on above: Result Comment: Elec tronically Signed By: Justo Arias DO\.br\Date and Time Signed: 08/18/23 11:41 EDT ED Patient Education Noteon 08-18-2023 ED Patient Education Note Normal [facility] ED Patient Summaryon 024 ED Patient Summary Normal [facility] SEROLOGYOrdered By: Kyle Mcgill on 08-18-2023 HCG.beta subunit (U) [Moles/Vol] Negative Normal [facility] Sero U BetaHcg Qualon 08-18-2023 HCG.beta subunit (U) [Moles/Vol] Negative Normal [facility] Comment on above: Performed By: #### 2 [id number], [id number] ####[facility] [address] [place] [id number] UA with Cult Rflxon 08-18-19 Bilirubin Ql (U) Negative Normal Negative [facility] Comment on above: Performed By: #### 2 [id number], [id number] ####[facility] [address] [place] [address] Clarity (U) Clear Normal Clear [facility] Comment on above: Performed By: #### 2 [id number], [id number] ####[facility] [address] [place] [address] Color (U) Colorless Abnormal Yellow [facility] Comment on above: Result Comment: Micr oscopic readings are only performed on those samples that meet specific criteria set forth by [facility]. Performed By: #### 2 [id number], [id number] ####[facility] [address] [address] Glucose Ql (U) Negative Normal Negative [facility] Comment on above: Performed By: #### 2 6906849, [id number] ####[address] [address] Hemoglobin Auto test strip (U) [Mass/Vol] Negative Normal Negative [facility] Comment on above: Performed By: #### 2 [id number], [id number] ####[place] [address] Ketones Auto test strip Ql (U) Negative Normal Negative [facility] Comment on above: Performed By: #### 2 4906039, [id number] ####[place] [address] Leukocyte esterase Auto test strip Ql (U) Negative Normal Negative [facility] Comment on above: Performed By: #### 2 8663362, [id number] ####[place] [address] Nitrite Auto test strip Ql (U) Negative Normal Negative [facility] Comment on above: Performed By: #### 2 4539474, [id number] ####[place] [address] pH (U) 6.5 [pH] Invalid Interpretation Code 5.0-9.0 [facility] Comment on above: Performed By: #### 2 6196265, [id number] ####[address] [address] Protein Ql (U) Negative Normal Negative [facility] Comment on above: Performed By: #### 2 9677064, [id number] ####[address] [address] Specific gravity (U) [Rel density] 1.010 Invalid Interpretation Code 1.005-1.030 [facility] Comment on above: Performed By: #### 2 1348043, [id number] ####[address] [place] [address] Urobilinogen (U) [Mass/Vol] Negative Normal Negative [facility] Comment on above: Performed By: #### 2 6233366, [id number] ####[facility] [address] [place] [address] Type of Urine collection method Clean Catch Normal [facility] Comment on above: Performed By: #### 2 4677731, [id number] ####[facility] [address] [place] [address] URINALYSISOrdered By: SYSTEM SYSTEM on 08-18-2023 Bilirubin Ql (U) Negative Normal Negativemg/ d L [facility] UA Auto SS Clarity (U) Clear (08/18/23 11:04 AM) Normal Clear [facility] UA Auto SS Color (U) Colorless 1 *ABN* (08/18/23 11:04 AM) Invalid Interpretation Code Yellow [facility] UA Auto SS Comment on above: Interpretive Data: M icroscopic readings are only performed on those samples that meet specific criteria set forth by [facility]. Glucose Ql (U) Negative Normal Negativemg/d L [facility] UA Auto SS Hemoglobin Auto test strip (U) [Mass/Vol] Negative Normal Negativemg/d L [facility] UA Auto SS Ketones Auto test strip Ql (U) Negative Normal Negativemg/d L [facility] UA Auto SS Leukocyte esterase Auto test strip Ql (U) Negative Normal NegativeLeu/ uL [facility] UA Auto SS Nitrite Auto test strip Ql (U) Negative Normal Negativemg/d L [facility] UA Auto SS pH (U) 6.5 *NA* (08/18/23 11:04 AM) Invalid Interpretation Code 5.0 - 9.0 [facility] UA Auto SS Protein Ql (U) Negative Normal Negativemg/d L [facility] UA Auto SS Specific gravity (U) [Rel density] 1.010 *NA* (08/18/23 11:04 AM) Invalid Interpretation Code 1.005 - 1.030 [facility] UA Auto SS Urobilinogen (U) [Mass/Vol] Negative Normal Negativemg/d L [facility] UA Auto SS URINALYSISOrdered By: Justo contreras on 08-18-2023 UA Spec Desc Clean Catch (08/18/23 11:04 AM) Normal [facility] UA Auto SS Work Phone: BMPon 08-14-2023 Anion gap [Moles/Vol] 13 mmol/L Normal 6-16 [facility] Comment on above: Performed By: #### 2 371154, [id number], [id number] ####[facility] [address] [place] [address] Calcium [Mass/Vol] 9.6 mg/dL Normal 8.9-11.1 [facility] Comment on above: Performed By: #### 2 937843, 7548931, [id number] ####[facility] [address] [place] [address] Chloride [Moles/Vol] 107 mmol/L Normal 101-111 [facility] Comment on above: Performed By: #### 2 216115, 2859994, [id number] ####[facility] [address] [place] [address] CO2 [Moles/Vol] 24 mmol/L Normal 21-31 [facility] Comment on above: Performed By: #### 2 603064, 8955444, [id number] ####[facility] [address] [facility] [place] [address] Creatinine [Mass/Vol] 0.7 mg/dL Normal 0.5-1.3 [facility] Comment on above: Performed By: #### 2 845646, 2506880, [id number] ####[facility] [address] [place] [address] Glucose [Mass/Vol] 99 mg/dL Normal 55-199 [facility] Comment on above: Performed By: #### 2 189763, 2688739, [id number] ####[facility] [address] [place] [address] Potassium [Moles/Vol] 3.2 mmol/L Low 3.5-5.3 [facility] Comment on above: Performed By: #### 2 521564, 0053581, [id number] ####[facility] [address] [place] [address] Sodium [Moles/Vol] 141 mmol/L Normal 135-145 [facility] Comment on above: Performed By: #### 2 816892, 9099402, [id number] ####[facility] [address] [place] [address] Urea nitrogen [Mass/Vol] 5 mg/dL Normal 5-21 [facility] Comment on above: Performed By: #### 2 322558, 2541712, [id number] ####[address] [address] Urea nitrogen/Creatinine [Mass ratio] 7 No Units Low 10-20 [facility] Comment on above: Performed By: #### 2 837059, 7982935, [id number] ####[address] [address] CBC w/ Auto Diffon 4 Basophils/100 WBC (Bld) 0.4 % Normal 0.0-2.0 [facility] Comment on above: Performed By: #### 2 999886, 9040292, [id number] ####[address] [address] Basophils/Leukocytes Auto (Bld) [Pure # fraction] 0.0 E9/L Normal 0.0-0.2 [facility] Comment on above: Performed By: #### 2 212867, 7968946, [id number] ####[address] [address] Eosinophils (Bld) [#/Vol] 0.0 E9/L Normal 0.0-0.5 [facility] Comment on above: Performed By: #### 2 615291, 9009696, [id number] ####[address] [address] Eosinophils/100 WBC (Bld) 0.3 % Normal 0.0-8.0 [facility] Comment on above: Performed By: #### 2 732758, 5560281, [id number] ####[place] [address] [place] [address] Erythrocyte distribution width (RBC) [Ratio] 13.3 % Normal 10.9-14.2 [facility] Comment on above: Performed By: #### 2 459404, 4224155, [id number] ####[address] [address] Hematocrit (Bld) [Volume fraction] 40.7 % Normal 34.0-46.0 [facility] Comment on above: Performed By: #### 2 049364, 5533911, 78782400 ####[address] [address] Hemoglobin (Bld) [Mass/Vol] 13.6 g/dL Normal 12.0-16.0 [facility] Comment on above: Performed By: #### 2 264330, 2606926, [id number] ####[address] [address] Lymphocytes (Bld) [#/Vol] 2.2 E9/L Normal 1.0-4.0 [facility] Comment on above: Performed By: #### 2 829851, 4273686, [id number] ####[address] [address] Lymphocytes/100 WBC (Bld) 21.0 % Normal 14.0-50.0 [facility] Comment on above: Performed By: #### 2 894951, 8598780, [id number] ####[address] [address] MCH (RBC) [Entitic mass] 29.9 pg Normal 27.0-34.0 [facility] Comment on above: Performed By: #### 2 187723, 9290601, 97548099 ####[address] [address] MCHC (RBC) [Mass/Vol] 33.5 g/dL Normal 31.4-36.0 [facility] Comment on above: Performed By: #### 2 229773, 5714996, [id number] ####[address] [address] MCV (RBC) [Entitic vol] 89.2 fL Normal 80.0-100.0 [facility] Comment on above: Performed By: #### 2 649925, 1227674, [id number] ####[address] [address] Monocytes (Bld) [#/Vol] 0.5 E9/L Normal 0.2-1.0 [facility] Comment on above: Performed By: #### 2 477948, 4728781, [id number] ####[address] [address] Neutrophils (Bld) [#/Vol] 7.6 E9/L High 2.0-7.5 [facility] Comment on above: Performed By: #### 2 546597, 4291644, 35255912 ####[address] [address] Neutrophils/100 WBC (Bld) 73.5 % Normal 36.0-75.0 [facility] Comment on above: Performed By: #### 2 676056, 2285076, 33123922 ####[address] [address] Platelet mean volume (Bld) [Entitic vol] 7.2 fL Normal 6.4-10.8 [facility] Comment on above: Performed By: #### 2 424679, 1804134, [id number] ####[address] [address] Platelets (Bld) [#/Vol] 421.0 E9/L Normal 150.0-500.0 [facility] Comment on above: Performed By: #### 2 844821, 2582062, 41384725 ####[address] [address] RBC (Bld) [#/Vol] 4.6 E12/L Normal 4.3-5.9 [facility] Comment on above: Performed By: #### 2 216229, 9172376, [id number] ####[facility] [address] [place] [address] WBC corrected for nucl RBC Auto (Bld) [#/Vol] 10.4 E9/L Normal 4.0-11.0 [facility] Comment on above: Performed By: #### 2 737754, 9451668, [id number] ####[facility] [address] [place] [address] CHEMISTRYOrdered By: Azam parmar on 08-14-2023 Anion gap [Moles/Vol] 13 mmol/L Normal 6 - 16 mEq/L [facility] Chem S Calcium [Mass/Vol] 9.6 mg/dL Normal 8.9 - 11. 1 mg/dL [facility] [place] S Chloride [Moles/Vol] 107 mmol/L Normal 101 - 1 11 mmol/L [facility] S CO2 [Moles/Vol] 24 mmol/L Normal 21 - 31 mmol/L [facility] S Creatinine [Mass/Vol] 0.7 mg/dL Normal 0.5 - 1.3 mg/dL [facility] S eGFR Unable to Calculate (08/14/23 3:16 PM) Normal >=59 [facility] S Glucose [Mass/Vol] 99 mg/dL Normal 55 - 199 mg/dL [facility] S Potassium [Moles/Vol] 3.2 mmol/L Low 3.5 - 5.3 mmol/L [facility] S Sodium [Moles/Vol] 141 mmol/L Normal 135 - 145 mmol/L [facility] S Urea nitrogen [Mass/Vol] 5 mg/dL Normal 5 - 21 mg/dL [facility] S Urea nitrogen/Creatinine [Mass ratio] 7 mg/mg Low 10 - 20 [facility] S Consent for Treatmenton 07-27 Consent for Treatment [id number]#1 .00TIFF Normal [facility] Discharge Instructionson Discharge Instructions [id number]#1. 00TIFF Normal [facility] ED Clinical Summaryon 2023 ED Clinical Summary Normal [facility] ED Note-Physicianon 08-14-19 ED Note-Physician Normal [facility] Comment on above: Result Comment: Elec tronically Signed By: Mary Jane Palm M.D.\Date and Time Signed: 08/14/23 17:09 EDT ED Patient Education Noteon 08-14-2023 ED Patient Education Note Normal [facility] ED Patient Summaryon 024 ED Patient Summary Normal [facility] HEMATOLOGYOrdered By: SYSTEM SYSTEM on 08-14-2023 Basophils/100 WBC (Bld) 0.4 % Normal 0.0 - 2.0 % [facility] Heme Basophils/Leukocytes Auto (Bld) [Pure # fraction] 0.0 E9/L Normal 0.0 - 0.2 E9/L [facility] Eosinophils (Bld) [#/Vol] 0.0 E9/L Normal 0.0 - 0.5 E9/L [facility] Eosinophils/100 WBC (Bld) 0.3 % Normal 0.0 - 8.0 % [facility] Erythrocyte distribution width (RBC) [Ratio] 13.3 % Normal 10.9 - 14.2 % [facility] Hematocrit (Bld) [Volume fraction] 40.7 % Normal 34.0 - 46.0 % [facility] Hemoglobin (Bld) [Mass/Vol] 13.6 g/dL Normal 12.0 - 16.0 gm/dL [facility] Lymphocytes (Bld) [#/Vol] 2.2 E9/L Normal 1.0 - 4.0 E9/L [facility] Lymphocytes/100 WBC (Bld) 21.0 % Normal 14.0 - 50.0 % [facility] MCH (RBC) [Entitic mass] 29.9 pg Normal 27.0 - 34.0 pg [facility] MCHC (RBC) [Mass/Vol] 33.5 g/dL Normal 31.4 - 36.0 gm/dL [facility] MCV (RBC) [Entitic vol] 89.2 fL Normal 80.0 - 100.0 fL [facility] Monocytes (Bld) [#/Vol] 0.5 E9/L Normal 0.2 - 1.0 E9/L [facility] Monocytes/100 WBC (Bld) 4.8 % Normal 4.0 - 14.0 % [facility] Neutrophils (Bld) [#/Vol] 7.6 E9/L High 2.0 - 7.5 E9/L [facility] Neutrophils/100 WBC (Bld) 73.5 % Normal 36.0 - 75.0 % [facility] Platelet mean volume (Bld) [Entitic vol] 7.2 fL Normal 6.4 - 10.8 fL [facility] Platelets (Bld) [#/Vol] 421.0 E9/L Normal 150. 0 - 500.0 E9/L [facility] RBC (Bld) [#/Vol] 4.6 E12/L Normal 4.3 - 5.9 E12/L [facility] WBC corrected for nucl RBC Auto (Bld) [#/Vol] 10.4 E9/L Normal 4.0 - 11.0 E9/L [facility] SEROLOGYOrdered By: Della Johnston on 08-14-2023 HCG.beta subunit (U) [Moles/Vol] Negative Normal [facility] Man Sero U BetaHcg Qualon 08-14-2023 HCG.beta subunit (U) [Moles/Vol] Negative Normal [facility] Comment on above: Performed By: #### 2 [id number], [id number] ####[facility] [address] [place] [address] UA with Cult Rflxon 08-14-19 24 Bilirubin Ql (U) Negative Normal Negative [facility] Comment on above: Performed By: #### 2 [id number], [id number] ####[facility] [address] [place] [address] Clarity (U) Clear Normal Clear [facility] Comment on above: Performed By: #### 2 [id number], [id number] ####[facility] [address] [place] [address] Color (U) Light-Yellow Normal Yellow [facility] Comment on above: Result Comment: Micr oscopic readings are only performed on those samples that meet specific criteria set forth by [facility]. Performed By: #### 2 [id number], [id number] ####[facility] [address] [place] [address] Glucose Ql (U) Negative Normal Negative [facility] Comment on above: Performed By: #### 2 7838918, [id number] ####[facility] [address] [place] [address] Hemoglobin Auto test strip (U) [Mass/Vol] Trace Abnormal Negative [facility] Comment on above: Performed By: #### 2 9482503, [id number] ####[address] [address] Ketones Auto test strip Ql (U) Negative Normal Negative [facility] Comment on above: Performed By: #### 2 [id number], [id number] ####[address] [address] Leukocyte esterase Auto test strip Ql (U) Negative Normal Negative [facility] Comment on above: Performed By: #### 2 8670597, [id number] ####[address] [address] Nitrite Auto test strip Ql (U) Negative Normal Negative [facility] Comment on above: Performed By: #### 2 4273387, [id number] ####[address] [address] pH (U) 5.5 [pH] Invalid Interpretation Code 5.0-9.0 [facility] Comment on above: Performed By: #### 2 8353911, [id number] ####[address] [place] [address] Protein Ql (U) Negative Normal Negative [facility] Comment on above: Performed By: #### 2 1037144, [id number] ####[address] [address] Specific gravity (U) [Rel density] 1.015 Invalid Interpretation Code 1.005-1.030 [facility] Comment on above: Performed By: #### 2 [id number], [id number] ####[facility] [address] [place] [address] Urobilinogen (U) [Mass/Vol] Negative Normal Negative [facility] Comment on above: Performed By: #### 2 7219403, [id number] ####[facility] [id number] Type of Urine collection method Clean Catch Normal [facility] Comment on above: Performed By: #### 2 [id number], [id number] ####[facility] [id number] URINALYSISOrdered By: SYSTEM SYSTEM on 08-14-2023 Bilirubin Ql (U) Negative Normal Negativemg/ d L [facility] UA Auto SS Clarity (U) Clear (08/14/23 3:11 PM) Normal Clear [facility] UA Auto SS Color (U) Light-Yellow 1 (08/14/23 3:11 PM) Normal Yellow [facility] Auto SS Comment on above: Interpretive Data: M icroscopic readings are only performed on those samples that meet specific criteria set forth by [facility]. Glucose Ql (U) Negative Normal Negativemg/d L [facility] UA Auto SS Hemoglobin Auto test strip (U) [Mass/Vol] Trace mg/dL Invalid Interpretation Code Negativemg/d L [facility] UA Auto SS Ketones Auto test strip Ql (U) Negative Normal Negativemg/d L [facility] UA Auto SS Leukocyte esterase Auto test strip Ql (U) Negative Normal NegativeLeu/ uL [facility] UA Auto SS Nitrite Auto test strip Ql (U) Negative Normal Negativemg/d L [facility] UA Auto SS pH (U) 5.5 *NA* (08/14/23 3:11 PM) Invalid Interpretation Code 5.0 - 9.0 [facility] UA Auto SS Protein Ql (U) Negative Normal Negativemg/d L [facility] UA Auto SS Specific gravity (U) [Rel density] 1.015 *NA* (08/14/23 3:11 PM) Invalid Interpretation Code 1.005 - 1.030 [facility] UA Auto SS Urobilinogen (U) [Mass/Vol] Negative Normal Negativemg/d L [facility] UA Auto SS URINALYSISOrdered By: Mary Jane Palm on 08-14-2023 UA Spec Desc Clean Catch (08/14/23 3:11 PM) Normal [facility] UA Auto SS eGFRon 08-14-2023 eGFR Unable to Calculate Normal >=59 [facility] Comment on above: Order Comment: Order added by Discern Expert. Performed By: #### 2 [id number], [id number], [id number] ####[facility] [address] [place] [address] Consent for Treatmenton 07-27 Consent for Treatment [id number]#1 .00TIFF Normal [facility] Discharge Instructionson Discharge Instructions [id number]# 1.00TIFF Normal [facility] ED Clinical Summaryon 2023 ED Clinical Summary Normal [facility] ED Note-Physicianon 08-10-19 ED Note-Physician Normal [facility] Comment on above: Result Comment: Elec tronically Signed By: Sy Pickard PA-C\.br\Date and Time Signed: 08/10/23 13:28 EDT\.br\Electronically Co-Signed By: Mary Jane Palm M.D.\.br\Date and Time Co-Signed: 08/10/23 14:13 EDT ED Patient Education Noteon 08-10-2023 ED Patient Education Note Normal [facility] ED Patient Summaryon 024 ED Patient Summary Normal [facility] Physician Orderon 08-05-2023 Physician Order [id number]#1 .00TIFF Normal [facility] US PELVIC COMPLETE W/ TVon 0 08-05-2023 US PELVIC COMPLETE W/ TV Exam: US PELVIC COMPLETE W/ TV History: Right lower quadrant pain. History of ovarian cysts. Technique: Sonography of the pelvis performed by transvaginal and transabdominal technique(s). Comparison: None. Result: Uterus: Orientation: Anteverted. Size: 8.7 x 3.6 x 3.5 cm. Myometrium: Homogeneous echotexture. Endometrial Echo complex: 0.5 cm. Cervix: Unremarkable Right ovary: Size: 4.2 x 3.1 x 1.9 cm Complex cyst or solid mass: None. Normal arterial and venous flow with normal waveforms. Left ovary: Size: 2.8 x 1.9 x 2.0 cm Complex cyst or solid mass: None. Normal arterial and venous flow with normal waveforms. Free Fluid:None. Other: Prominent pelvic vascularity, associated with pelvic congestion syndrome. IMPRESSION: Impression: Prominent pelvic vascularity, associated with pelvic congestion syndrome. Otherwise unremarkable pelvic ultrasound. ELECTRONICALLY SIGNED BY: Rogelio Garcia MD Normal Not Available Ambulatory Visit Summaryon 0 07-30-2023 Ambulatory Visit Summary Normal [facility] Consenton 07-30-2023 Consent [id number]#1 .00TIFF Normal [facility] Family Medicine Office/Clini c Noteon 07-30-2023 Family Medicine Office/Clinic Note Normal [facility] Comment on above: Result Comment: Elec tronically Signed By: SANIA LUKE, LANETTE\.br\Date and Time Signed: 07/30/23 14:40 EDT Patient Educationon 07-30-19 24 Patient Education Normal [facility] B hCG Qualon 07-26-2023 Beta HCG ( test) Ql Negative Normal [facility] Comment on above: Performed By: #### 1 [id number], 7990127, 0815388, [id number] ####[facility] [address] [place] [address] BMPon 07-26-2023 Creatinine [Mass/Vol] 0.8 mg/dL Normal 0.5-1.3 [facility] Comment on above: Performed By: #### 1 6775228, 8378332, 6554452, [id number] ####[facility] [address] [place] [address] Urea nitrogen/Creatinine [Mass ratio] 11 No Units Normal - [facility] Comment on above: Performed By: #### 1 1342526, 1009106, 6036913, 82248531 ####[facility] [address] [place] [address] Anion gap [Moles/Vol] 11 mmol/L Normal 6-16 [facility] Comment on above: Performed By: #### 1 1730462, 7734979, 2370740, 63673839 ####[facility] [address] [place] [address] Calcium [Mass/Vol] 9.7 mg/dL Normal 8.9-11.1 [facility] Comment on above: Performed By: #### 1 7720250, 7781254, 3099697, 37550041 ####[facility] [address] [place] [address] Chloride [Moles/Vol] 104 mmol/L Normal 101-111 [facility] Comment on above: Performed By: #### 1 2952656, 5778043, 4343863, 82965396 ####[facility] [address] [place] [address] CO2 [Moles/Vol] 26 mmol/L Normal 21-31 [facility] Comment on above: Performed By: #### 1 3827379, 0912277, 9117300, 05128655 ####[facility] [address] [place] [address] Glucose [Mass/Vol] 87 mg/dL Normal 55-199 [facility] Comment on above: Performed By: #### 1 9257310, 7096319, 8664341, 71263986 ####[facility] [address] [place] [address] Potassium [Moles/Vol] 3.4 mmol/L Low 3.5-5.3 [facility] Comment on above: Performed By: #### 1 6236613, 7290947, 3012364, 59542060 ####[facility] [address] [place] [address] Sodium [Moles/Vol] 138 mmol/L Normal 135-145 [facility] Comment on above: Performed By: #### 1 4938798, 4598519, 3195100, 81222191 ####[address] [place] [address] Urea nitrogen [Mass/Vol] 9 mg/dL Normal 5-21 [facility] Comment on above: Performed By: #### 1 1993420, 2594820, 7421212, 81954547 ####[address] [address] CBC w/ Auto Diffon 4 Basophils/100 WBC (Bld) 1.9 % Normal 0.0-2.0 [facility] Comment on above: Performed By: #### 1 5883614, 8186500, 8773643, 89368777 ####[address] [address] Basophils/Leukocytes Auto (Bld) [Pure # fraction] 0.2 E9/L Normal 0.0-0.2 [facility] Comment on above: Performed By: #### 1 4927187, 7596728, 4525110, 85110509 ####[address] [address] Eosinophils (Bld) [#/Vol] 0.3 E9/L Normal 0.0-0.5 [facility] Comment on above: Performed By: #### 1 3084973, 7456697, 1670640, 51837446 ####[address] [address] Eosinophils/100 WBC (Bld) 2.5 % Normal 0.0-8.0 [facility] Comment on above: Performed By: #### 1 4080085, 7009095, 9446621, 13126210 ####[address] [address] Erythrocyte distribution width (RBC) [Ratio] 12.9 % Normal 10.9-14.2 [facility] Comment on above: Performed By: #### 1 3250773, 1022904, 4153999, 98953394 ####[facility] [address] [place] [address] Hematocrit (Bld) [Volume fraction] 43.8 % Normal 34.0-46.0 [facility] Comment on above: Performed By: #### 1 5954656, 3080632, 8383324, 29572033 ####[address] [place] [address] Hemoglobin (Bld) [Mass/Vol] 14.8 g/dL Normal 12.0-16.0 [facility] Comment on above: Performed By: #### 1 3330332, 9645697, 0278983, 13651586 ####[address] [address] Lymphocytes (Bld) [#/Vol] 3.4 E9/L Normal 1.0-4.0 [facility] Comment on above: Performed By: #### 1 3039701, 6479393, 0798540, 95894982 ####[address] [address] Lymphocytes/100 WBC (Bld) 31.0 % Normal 14.0-50.0 [facility] Comment on above: Performed By: #### 1 5098182, 7668379, 7351103, 42960664 ####[address] [address] MCH (RBC) [Entitic mass] 30.1 pg Normal 27.0-34.0 [facility] Comment on above: Performed By: #### 1 8373226, 3010662, 8927140, 30033448 ####[address] [place] [address] MCHC (RBC) [Mass/Vol] 33.8 g/dL Normal 31.4-36.0 [facility] Comment on above: Performed By: #### 1 0807737, 3989250, 3971445, 72708409 ####[address] [address] MCV (RBC) [Entitic vol] 89.1 fL Normal 80.0-100.0 [facility] Comment on above: Performed By: #### 1 2983815, 4673868, 0959833, 76862898 ####[address] [address] Monocytes (Bld) [#/Vol] 0.5 E9/L Normal 0.2-1.0 [facility] Comment on above: Performed By: #### 1 7011090, 8119543, 5687887, 39846328 ####[address] [address] Neutrophils (Bld) [#/Vol] 6.5 E9/L Normal 2.0-7.5 [facility] Comment on above: Performed By: #### 1 4949022, 0461441, 7052098, 87223084 ####[address] [address] Neutrophils/100 WBC (Bld) 60.4 % Normal 36.0-75.0 [facility] Comment on above: Performed By: #### 1 2055032, 3179806, 0216807, 20969597 ####[address] [address] Platelet mean volume (Bld) [Entitic vol] 8.3 fL Normal 6.4-10.8 [facility] Comment on above: Performed By: #### 1 4114845, 8208388, 7616752, 88858097 ####[address] [address] Platelets (Bld) [#/Vol] 463.0 E9/L Normal 150.0-500.0 [facility] Comment on above: Performed By: #### 1 8163061, 7589698, 2389233, 35097024 ####[address] [address] RBC (Bld) [#/Vol] 4.9 E12/L Normal 4.3-5.9 [facility] Comment on above: Performed By: #### 1 3492281, 9893180, 9460243, 67176660 ####[facility] [address] [place] [address] WBC corrected for nucl RBC Auto (Bld) [#/Vol] 10.8 E9/L Normal 4.0-11.0 [facility] Comment on above: Performed By: #### 1 0941850, 0882916, 6244750, 67406509 ####[facility] [address] [place] [address] CHEMISTRYOrdered By: SYSTEM SYSTEM on 07-26-2023 Anion gap [Moles/Vol] 11 mmol/L Normal 6 - 16 mEq/L R em[facility] Chem Calcium [Mass/Vol] 9.7 mg/dL Normal 8.9 - 11. 1 mg/dL [facility] Chloride [Moles/Vol] 104 mmol/L Normal 101 - 1 11 mmol/L [facility] CO2 [Moles/Vol] 26 mmol/L Normal 21 - 31 mmol/L [facility] Creatinine [Mass/Vol] 0.8 mg/dL Normal 0.5 - 1.3 mg/dL [facility] eGFR 102 mL/min/1.73 m2 Normal >=59mL/mi n/1 .73 m2 [facility] Glucose [Mass/Vol] 87 mg/dL Normal 55 - 199 mg/dL [facility] Potassium [Moles/Vol] 3.4 mmol/L Low 3.5 - 5.3 mmol/L [facility] Sodium [Moles/Vol] 138 mmol/L Normal 135 - 145 mmol/L [facility] Urea nitrogen [Mass/Vol] 9 mg/dL Normal 5 - 21 mg/dL [facility] Urea nitrogen/Creatinine [Mass ratio] 11 mg/mg Normal 10 - [address] Abdomen/Pelvis w/ Contras ton 07-26-2023 CT Abdomen/Pelvis w/ Contrast Normal [facility] Consent for Treatmenton 06-28 Consent for Treatment [id number]#1 .00TIFF Normal [facility] Discharge Instructionson Discharge Instructions [id number] #1.00TIFF Normal [facility] ED Clinical Summaryon 2023 ED Clinical Summary Normal [facility] ED Note-Physicianon 07-26-19 24 ED Note-Physician Normal [facility] Comment on above: Result Comment: Elec tronically Signed By: Darren Lomax DObr\Date and Time Signed: 07/26/23 12:21 EDT ED Patient Education Noteon 07-26-2023 ED Patient Education Note Normal [facility] ED Patient Summaryon 024 ED Patient Summary Normal [facility] HEMATOLOGYOrdered By: SYSTEM SYSTEM on 07-26-2023 Basophils/100 WBC (Bld) 1.9 % Normal 0.0 - 2.0 % [facility] Basophils/Leukocytes Auto (Bld) [Pure # fraction] 0.2 E9/L Normal 0.0 - 0.2 E9/L [facility] Eosinophils (Bld) [#/Vol] 0.3 E9/L Normal 0.0 - 0.5 E9/L [facility] Eosinophils/100 WBC (Bld) 2.5 % Normal 0.0 - 8.0 % [facility] Erythrocyte distribution width (RBC) [Ratio] 12.9 % Normal 10.9 - 14.2 % [facility] Hematocrit (Bld) [Volume fraction] 43.8 % Normal 34.0 - 46.0 % [facility] Hemoglobin (Bld) [Mass/Vol] 14.8 g/dL Normal 12.0 - 16.0 gm/dL [facility] Lymphocytes (Bld) [#/Vol] 3.4 E9/L Normal 1.0 - 4.0 E9/L [facility] Lymphocytes/100 WBC (Bld) 31.0 % Normal 14.0 - 50.0 % [facility] MCH (RBC) [Entitic mass] 30.1 pg Normal 27.0 - 34.0 pg [facility] MCHC (RBC) [Mass/Vol] 33.8 g/dL Normal 31.4 - 36.0 gm/dL [facility] MCV (RBC) [Entitic vol] 89.1 fL Normal 80.0 - 100.0 fL [facility] Monocytes (Bld) [#/Vol] 0.5 E9/L Normal 0.2 - 1.0 E9/L [facility] Monocytes/100 WBC (Bld) 4.2 % Normal 4.0 - 14.0 % [facility] Neutrophils (Bld) [#/Vol] 6.5 E9/L Normal 2.0 - 7.5 E9/L [facility] Neutrophils/100 WBC (Bld) 60.4 % Normal 36.0 - 75.0 % [facility] Platelet mean volume (Bld) [Entitic vol] 8.3 fL Normal 6.4 - 10.8 fL [facility] Platelets (Bld) [#/Vol] 463.0 E9/L Normal 150. 0 - 500.0 E9/L [facility] RBC (Bld) [#/Vol] 4.9 E12/L Normal 4.3 - 5.9 E12/L [facility] WBC corrected for nucl RBC Auto (Bld) [#/Vol] 10.8 E9/L Normal 4.0 - 11.0 E9/L [facility] SEROLOGYOrdered By: Megha Paul on 07-26-2023 Beta HCG ( test) Ql Negative (07/26/23 9:47 AM) Normal [facility] Man Sero UA with Cult Rflxon 07-26-19 Color (U) Colorless Abnormal Yellow [facility] Comment on above: Result Comment: Micr oscopic readings are only performed on those samples that meet specific criteria set forth by [facility]. Performed By: #### 4 [id number] ####[facility] [address] [place] [address] Glucose (U) [Mass/Vol] Negative Normal Negative [facility] Comment on above: Performed By: #### 4 [id number] ####[facility] [address] [place] [address] Ketones Ql (U) Negative Normal Negative [facility] Comment on above: Performed By: #### 4 [id number] ####[facility] [address] [place] [address] UA Blood Negative Normal Negative [facility] Comment on above: Performed By: #### 4 [id number] ####[facility] [address] [place] [address] UA Clarity Clear Normal Clear [facility] Comment on above: Performed By: #### 4 [id number] ####[facility] [address] [place] [address] UA Leuk Est Negative Normal Negative [facility] Comment on above: Performed By: #### 4 [id number] ####[facility] [address] [place] [address] UA Nitrite Negative Normal Negative [facility] Comment on above: Performed By: #### 4 [id number] ####[facility] [address] [place] [address] UA pH 7.0 Invalid Interpretation Code 5.0-9.0 [facility] Comment on above: Performed By: #### 4 [id number] ####[facility] [address] [place] [address] UA Protein Negative Normal Negative [facility] Comment on above: Performed By: #### 4 [id number] ####[facility] [address] [place] [address] UA Spec Grav 1.008 Invalid Interpretation Code 1.005-1.030 [facility] Comment on above: Performed By: #### 4 [id number] ####[facility] [address] [facility] [place] [address] UA Urobilinogen Negative Normal Negative [facility] Comment on above: Performed By: #### 4 [id number] ####[facility] [address] [facility] [place] [address] Urobilinogen (U) [Mass/Vol] Negative Normal Negative [facility] Comment on above: Performed By: #### 4 [id number] ####[facility] [address] [place] [address] UA Spec Desc Clean Catch Normal [facility] Comment on above: Performed By: #### 4 [id number] ####[facility] [address] [place] [address] URINALYSISOrdered By: SYSTEM SYSTEM on 07-26-2023 Color (U) Colorless 1 *ABN* (07/26/23 10:26 AM) Invalid Interpretation Code Yellow [facility] UA Auto SS Comment on above: Interpretive Data: M icroscopic readings are only performed on those samples that meet specific criteria set forth by [facility]. Glucose (U) [Mass/Vol] Negative Normal Negat ivemg/d L FT UA Auto SS Ketones Ql (U) Negative Normal Negativemg/d L [facility] UA Auto SS UA Blood Negative Normal Negativemg/d L [facility] UA Auto SS UA Clarity Clear (07/26/23 10:26 AM) Normal Clear [facility] UA Auto SS UA Leuk Est Negative Normal NegativeLeu/ uL [facility] UA Auto SS UA Nitrite Negative Normal Negativemg/d L [facility] UA Auto SS UA pH 7.0 *NA* (07/26/23 10:26 AM) Invalid Interpretation Code 5.0 - 9.0 [facility] UA Auto SS UA Protein Negative Normal Negativemg/d L [facility] UA Auto SS UA Spec Grav 1.008 *NA* (07/26/23 10:26 AM) Invalid Interpretation Code 1.005 - 1.030 [facility] UA Auto SS UA Urobilinogen Negative Normal Negativemg/d L [facility] UA Auto SS Urobilinogen (U) [Mass/Vol] Negative Normal Negativemg/d L [facility] UA Auto SS URINALYSISOrdered By: Darren Lomax on 07-26-2023 UA Spec Desc Clean Catch (07/26/23 10:26 AM) Normal [facility] UA Auto SS Work Phone: eGFRon 07-26-2023 eGFR 102 mL/min/1.73 m2 Normal >=59 [facility] Comment on above: Order Comment: Order added by Discern Expert. Performed By: #### 1 [id number], 5019295, 8939091, [id number] ####[facility] [address] [place] [address] Physician Orderon 07-24-2023 Physician Order [id number]#1 .00TIFF Normal [facility] B hCG Qualon 07-19-2023 Beta HCG ( test) Ql Negative Normal [facility] Comment on above: Performed By: #### 1 7221178, 9295149, 16987591, 10821707, 0841949, 75909756, 8352828 ####[facility] [address] [place] [address] BMPon 07-19-2023 Calcium [Mass/Vol] 9.7 mg/dL Normal 8.9-11.1 [facility] Comment on above: Performed By: #### 1 6514854, 8904689, 69788195, 68015268, 6179534, 04589947, 3483813 ####[facility] [address] [place] [address] Chloride [Moles/Vol] 100 mmol/L Low 101-111 [facility] Comment on above: Performed By: #### 1 6817607, 9690581, 49830383, 63912450, 0739151, 07363982, 9621999 ####[facility] [address] [place] [address] Glucose [Mass/Vol] 106 mg/dL Normal 55-199 [facility] Comment on above: Performed By: #### 1 8776073, 6668227, 71895500, 48309510, 3248817, 48434153, 6272843 ####[facility] [address] [place] [address] Potassium [Moles/Vol] 3.6 mmol/L Normal 3.5-5.3 [facility] Comment on above: Performed By: #### 1 8080508, 2885830, 51504952, 43665081, 8894763, 88482579, 8085509 ####[facility] [address] [place] [address] Sodium [Moles/Vol] 136 mmol/L Normal 135-145 [facility] Comment on above: Performed By: #### 1 0189380, 1550431, 02930015, 51268212, 9151277, 20080753, 9250167 ####[facility] [address] [place] [address] Urea nitrogen [Mass/Vol] 7 mg/dL Normal 5-21 [facility] Comment on above: Performed By: #### 1 1009704, 2246852, 30584660, 86383396, 9865110, 88201030, 1941909 ####[facility] [address] [place] [address] Anion gap [Moles/Vol] 14 mmol/L Normal 6-16 [facility] Comment on above: Performed By: #### 1 4329844, 9088005, 96613227, 97410633, 1649336, 68026757, 3442056 ####[facility] [address] [place] [address] CO2 [Moles/Vol] 26 mmol/L Normal 21-31 [facility] Comment on above: Performed By: #### 1 9756965, 1089011, 16860399, 44388679, 3772448, 31097915, 4707919 ####[facility] [address] [place] [address] Creatinine [Mass/Vol] 0.8 mg/dL Normal 0.5-1.3 [facility] Comment on above: Performed By: #### 1 4805195, 5834950, 69761657, 80409083, 2524091, 58521967, 7045760 ####[facility] [address] [place] [address] Urea nitrogen/Creatinine [Mass ratio] 9 No Units Low 10-20 [facility] Comment on above: Performed By: #### 1 2405280, 6071645, 71328801, 19519259, 3733739, 98944253, 7792645 ####[facility] [address] [place] [address] CBC w/ Auto Diffon 4 Basophils/100 WBC (Bld) 0.3 % Normal 0.0-2.0 [facility] Comment on above: Performed By: #### 1 2418964, 7433542, 61090044, 43747185, 2613766, 46526833, 9807726 ####[address] [address] Basophils/Leukocytes Auto (Bld) [Pure # fraction] 0.0 E9/L Normal 0.0-0.2 [facility] Comment on above: Performed By: #### 1 3212597, 5394908, 60080510, 20309358, 2889616, 71943809, 0869663 ####[address] [address] Eosinophils (Bld) [#/Vol] 0.2 E9/L Normal 0.0-0.5 [facility] Comment on above: Performed By: #### 1 3539928, 7175416, 37168465, 88535883, 0863890, 80232400, 3374361 ####[address] [address] Eosinophils/100 WBC (Bld) 1.7 % Normal 0.0-8.0 [facility] Comment on above: Performed By: #### 1 6339198, 6536307, 41491078, 39629531, 5933031, 55338058, 6185592 ####[address] [address] Erythrocyte distribution width (RBC) [Ratio] 13.0 % Normal 10.9-14.2 [facility] Comment on above: Performed By: #### 1 3903063, 7287968, 57037438, 09863271, 5255252, 21307935, 2555473 ####[address] [address] Hematocrit (Bld) [Volume fraction] 42.7 % Normal 34.0-46.0 [facility] Comment on above: Performed By: #### 1 4165912, 3326143, 07575945, 02748639, 9099094, 12130621, 4543197 ####[address] [place] [address] Hemoglobin (Bld) [Mass/Vol] 14.7 g/dL Normal 12.0-16.0 [facility] Comment on above: Performed By: #### 1 6064866, 8802958, 00351392, 18575961, 4999662, 47488706, 8959391 ####[address] [place] [address] Lymphocytes (Bld) [#/Vol] 1.4 E9/L Normal 1.0-4.0 [facility] Comment on above: Performed By: #### 1 1070519, 6340485, 12498396, 72306323, 7338959, 40689724, 4468471 ####[address] [address] Lymphocytes/100 WBC (Bld) 13.2 % Low 14.0-50.0 [facility] Comment on above: Performed By: #### 1 6606669, 0299266, 37658802, 88157219, 1123772, 50064435, 8668131 ####[address] [address] MCH (RBC) [Entitic mass] 30.6 pg Normal 27.0-34.0 [facility] Comment on above: Performed By: #### 1 4286705, 9296322, 69886944, 85587735, 0027758, 99349488, 6792179 ####[address] [address] MCHC (RBC) [Mass/Vol] 34.5 g/dL Normal 31.4-36.0 [facility] Comment on above: Performed By: #### 1 8621097, 3646583, 84607710, 79675934, 5124311, 64754469, 9173168 ####[address] [address] MCV (RBC) [Entitic vol] 88.8 fL Normal 80.0-100.0 [facility] Comment on above: Performed By: #### 1 9333440, 5197798, 59678275, 89709561, 6968094, 75746940, 0899094 ####[facility] [address] [place] [address] Monocytes (Bld) [#/Vol] 0.5 E9/L Normal 0.2-1.0 [facility] Comment on above: Performed By: #### 1 4010554, 9217135, 22624968, 03172356, 6408744, 73566987, 1209815 ####[facility] [address] [place] [address] Neutrophils (Bld) [#/Vol] 8.8 E9/L High 2.0-7.5 [facility] Comment on above: Performed By: #### 1 2917498, 9740426, 99398217, 11439512, 0611578, 39814179, 3158060 ####[address] [address] Neutrophils/100 WBC (Bld) 80.3 % High 36.0-75.0 [facility] Comment on above: Performed By: #### 1 6253226, 4607980, 79587676, 88705334, 5191752, 39600168, 5612465 ####[address] [place] [address] Platelet mean volume (Bld) [Entitic vol] 7.7 fL Normal 6.4-10.8 [facility] Comment on above: Performed By: #### 1 5830434, 8876490, 83904856, 16301735, 5691727, 55166781, 4945171 ####[address] [place] [address] Platelets (Bld) [#/Vol] 430.0 E9/L Normal 150.0-500.0 [facility] Comment on above: Performed By: #### 1 8172473, 3297659, 96851842, 60045942, 2955840, 29294690, 9603396 ####[facility] [address] [place] [address] RBC (Bld) [#/Vol] 4.8 E12/L Normal 4.3-5.9 [facility] Comment on above: Performed By: #### 1 4241275, 2021708, 42978674, 92212860, 7894875, 43708056, 4684618 ####[facility] [address] [place] [address] WBC corrected for nucl RBC Auto (Bld) [#/Vol] 11.0 E9/L Normal 4.0-11.0 [facility] Comment on above: Performed By: #### 1 8331067, 8418346, 13089531, 04804008, 3935093, 53492478, 7507388 ####[facility] [address] [place] [address] CHEMISTRYOrdered By: SYSTEM SYSTEM on 07-19-2023 Anion gap [Moles/Vol] 14 mmol/L Normal 6 - 16 mEq/L R emisol Chem Calcium [Mass/Vol] 9.7 mg/dL Normal 8.9 - 11. 1 mg/dL [facility] Chloride [Moles/Vol] 100 mmol/L Low 101 - 1 11 mmol/L [facility] CO2 [Moles/Vol] 26 mmol/L Normal 21 - 31 mmol/L [facility] Creatinine [Mass/Vol] 0.8 mg/dL Normal 0.5 - 1.3 mg/dL [facility] eGFR 102 mL/min/1.73 m2 Normal >=59mL/mi n/1 .73 m2 [facility] Glucose [Mass/Vol] 106 mg/dL Normal 55 - 199 mg/dL [facility] Potassium [Moles/Vol] 3.6 mmol/L Normal 3.5 - 5.3 mmol/L [facility] Sodium [Moles/Vol] 136 mmol/L Normal 135 - 145 mmol/L [facility] Troponin pg/mL Low 10.10 - 27.10 pg/mL [facility] Comment on above: Interpretive Data: T he 95% CI (Confidence Interval) PPV (Positive Predictive Value) for myocardial infarction in females is 38 pg/mL, in males 51 pg/mL. The results should be used in conjunction with clinical conditions of myocardial infarction. (Access High Sensitivity Troponin I Instructions For Use, Tegan Cochran, November 2017) Urea nitrogen [Mass/Vol] 7 mg/dL Normal 5 - 21 mg/dL [facility] Urea nitrogen/Creatinine [Mass ratio] 9 mg/mg Low 10 - 20 [facility] COAGULATIONOrdered By: Gogo Walters on 07-19-2023 aPTT Coag (PPP) [Time] 38.7 s High 25.1 - 36.5 second(s) [facility] Comment on above: Interpretive Data: P arameter 15 days - 4 weeks 1 - 5 months 6 - 11 months 1 - 5 years 6 - 10 years 11 - 17 years PTT Mean: 35.4 (27.6-45.6) Mean: 33.5 (24.8-40.7) Mean: 32.4 (25.1-40.7) Mean: 31.6 (24.0-39.2) Mean: 31.6 (26.9-38.7) Mean: 31.0 (24.6-38.4) Pediatric Reference ranges were obtained from a study by Jomar Rojas et al. prepared from 1437 samples obtained at 7 different centers using the same coagulation reagent and instrumentation as [facility] Currently there are no coagulation studies available worldwide for children to 14 days, and no normal ranges. Heparin therapeutic range (represented by Anti-Factor Xa activity of 0.2 - 0.4 U/mL) corresponds to PTT of 56.6 - 109.0 sec. Fibrin D-dimer FEU (PPP) [Mass/Vol] ng/mL FEU Low 215 - 500 ng/mL FEU [facility] Comment on above: Interpretive Data: T his assay is intended for use as an aid in the diagnosis of DVT or PE. These conditions cannot be excluded with certainty solely on the basis of a D-dimer concentration being within the reference range This D-Dimer assay may be used in conjunction with a non-high clinical pretest probability assessment to exclude deep-vein thrombosis(DVT). For exclusion of venous thrombosis or pulmonary embolism the analyte D-Dimer should not be used as an aid in patients with: Therapeutic dose anticoagulant therapy for >24 hours Fibrinolytic therapy within previous 7 days Trauma or surgery within previous 4 weeks Disseminated malignacies Aortic aneurysm Sepsis, severe infections, pneumonia, severe skin infections Liver cirrhosis INR Coag (PPP) [Relative time] 1.17 {INR} Invalid Interpretation Code [facility] Comment on above: Interpretive Data: I NR results are specifically intended to assess patients stabilized on long-term Anticoagulation therapy suggested INR s Less Intensive Anticoagulation 2.0 3.0 Conventional Range 3.0 4.5 PT Coag (PPP) [Time] 13.1 s High 9.4 - 1 2.5 second(s) [facility] Comment on above: Interpretive Data: 1 5 days - 4 weeks 1 - 5 months 6 -11 months 1-5 years 6-10 years 11 -17 years Mean: 11.2 (9.5-12.6) Mean: 11.0 (9.7-12.8) Mean: 11.0 (9.8-13.0) Mean: 11.3 (9.9-13.4) Mean: 11.7 (10.0-14.6) Mean: 11.8 (10.0 - 14.1) Pediatric Reference ranges were obtained from a study by Jomar Rojas et al. prepared from 1437 samples obtained at 7 different centers using the same coagulation reagent and instrumentation as [facility] Currently there are no coagulation studies available worldwide for children to 14 days, and no normal ranges. Consent for Treatmenton 06-27 Consent for Treatment [id number]#1 .00TIFF Normal [facility] D-Dimeron 07-19-2023 Fibrin D-dimer FEU (PPP) [Mass/Vol] <215 Low 215-500 [facility] Comment on above: Result Comment: This assay is intended for use as an aid in the diagnosis of DVT or PE. These conditions cannot be excluded with certainty solely on the basis of a D-dimer concentration being within the reference rangeThis D-Dimer assay may be used in conjunction with a non-high clinical pretest probability assessment to exclude deep-vein thrombosis(DVT). For exclusion of venous thrombosis or pulmonary embolism the analyte D-Dimer should not be used as an aid in patients with:Therapeutic dose anticoagulant therapy for >24 hoursFibrinolytic therapy within previous 7 daysTrauma or surgery within previous 4 weeksDisseminated malignaciesAortic aneurysmSepsis, severe infections, pneumonia, severe skin infectionsLiver cirrhosisPregnancy Performed By: #### 1 1033010, 0532017, 52044356, 61015064, 6454551, 35839937, 9674066 ####[facility] [address] [place] [address] Discharge Instructionson Discharge Instructions [id number]# 1.00TIFF Normal [facility] ED Clinical Summaryon 2023 ED Clinical Summary Normal [facility] ED Note-Physicianon 07-19-19 ED Note-Physician Normal [facility] Comment on above: Result Comment: Elec tronically Signed By: Ulisses Mckinney PA-C\.br\Date and Time Signed: 07/19/23 14:03 EDT\.br\Electronically Co-Signed By: Mary Jane Palm M.D.\.br\Date and Time Co-Signed: 07/19/23 19:21 EDT ED Patient Education Noteon 07-19-2023 ED Patient Education Note Normal [facility] ED Patient Summaryon 024 ED Patient Summary Normal [facility] HEMATOLOGYOrdered By: SYSTEM SYSTEM on 07-19-2023 Basophils/100 WBC (Bld) 0.3 % Normal 0.0 - 2.0 % [facility] Basophils/Leukocytes Auto (Bld) [Pure # fraction] 0.0 E9/L Normal 0.0 - 0.2 E9/L [facility] Eosinophils (Bld) [#/Vol] 0.2 E9/L Normal 0.0 - 0.5 E9/L [facility] Eosinophils/100 WBC (Bld) 1.7 % Normal 0.0 - 8.0 % [facility] Erythrocyte distribution width (RBC) [Ratio] 13.0 % Normal 10.9 - 14.2 % [facility] Hematocrit (Bld) [Volume fraction] 42.7 % Normal 34.0 - 46.0 % [facility] Hemoglobin (Bld) [Mass/Vol] 14.7 g/dL Normal 12.0 - 16.0 gm/dL [facility] Lymphocytes (Bld) [#/Vol] 1.4 E9/L Normal 1.0 - 4.0 E9/L [facility] Lymphocytes/100 WBC (Bld) 13.2 % Low 14.0 - 50.0 % [facility] MCH (RBC) [Entitic mass] 30.6 pg Normal 27.0 - 34.0 pg [facility] MCHC (RBC) [Mass/Vol] 34.5 g/dL Normal 31.4 - 36.0 gm/dL [facility] MCV (RBC) [Entitic vol] 88.8 fL Normal 80.0 - 100.0 fL [facility] Monocytes (Bld) [#/Vol] 0.5 E9/L Normal 0.2 - 1.0 E9/L [facility] Monocytes/100 WBC (Bld) 4.5 % Normal 4.0 - 14.0 % [facility] Neutrophils (Bld) [#/Vol] 8.8 E9/L High 2.0 - 7.5 E9/L [facility] Neutrophils/100 WBC (Bld) 80.3 % High 36.0 - 75.0 % [facility] Platelet mean volume (Bld) [Entitic vol] 7.7 fL Normal 6.4 - 10.8 fL [facility] Platelets (Bld) [#/Vol] 430.0 E9/L Normal 150. 0 - 500.0 E9/L [facility] RBC (Bld) [#/Vol] 4.8 E12/L Normal 4.3 - 5.9 E12/L [facility] WBC corrected for nucl RBC Auto (Bld) [#/Vol] 11.0 E9/L Normal 4.0 - 11.0 E9/L [facility] Monitor Recordon 07-19-2023 Monitor Record [id number]# 1.00TIFF Normal [facility] PT & PTTon 07-19-2023 aPTT Coag (PPP) [Time] 38.7 second(s) High 25.1-36.5 [facility] Comment on above: Result Comment: Para meter 15 days - 4 weeks 1 - 5 months 6 - 11 months 1 - 5 years 6 - 10 years 11 - 17 years PTT Mean: 35.4 (27.6-45.6) Mean: 33.5 (24.8-40.7) Mean: 32.4 (25.1-40.7) Mean: 31.6 (24.0-39.2) Mean: 31.6 (26.9-38.7) Mean: 31.0 (24.6-38.4) Pediatric Reference ranges were obtained from a study by gal Ludwig al. prepared from 1437 samples obtained at 7 different centers using the same coagulation reagent and instrumentation as [facility] Currently there are no coagulation studies available worldwide for children to 14 days, and no normal ranges. Heparin therapeutic range (represented by Anti-Factor Xa activity of 0.2 - 0.4 U/mL) corresponds to PTT of 56.6 - 109.0 sec. Performed By: #### 1 9857775, 2641065, 29724711, 45209880, 0476601, 54412200, 3583912 ####[facility] [address] [place] [address] INR Coag (PPP) [Relative time] 1.17 {INR} Invalid Interpretation Code [facility] Comment on above: Result Comment: INR results are specifically intended to assess patients stabilized on long-term Anticoagulation therapy suggested INR?s ?Less Intensive Anticoagulation? 2.0 ? 3.0Conventional Range 3.0 ? 4.5 Performed By: #### 1 0416534, 8596968, 06646835, 45173953, 3727968, 00024829, 9630488 ####[facility] [address] [place] [address] PT Coag (PPP) [Time] 13.1 second(s) High 9.4-12.5 [facility] Comment on above: Result Comment: 15 d ays - 4 weeks 1 - 5 months 6 -11 months 1-5 years 6-10 years 11 -17 years Mean: 11.2 (9.5-12.6) Mean: 11.0 (9.7-12.8) Mean: 11.0 (9.8-13.0) Mean: 11.3 (9.9-13.4) Mean: 11.7 (10.0-14.6) Mean: 11.8 (10.0 - 14.1) Pediatric Reference ranges were obtained from a study by Jomar Rojas et al. prepared from 1437 samples obtained at 7 different centers using the same coagulation reagent and instrumentation as [facility]. Currently there are no coagulation studies available worldwide for children to 14 days, and no normal ranges. Performed By: #### 1 6369377, 5426719, 70822667, 49351835, 0546409, 77704672, 1146579 ####[facility] [address] [place] [address] SEROLOGYOrdered By: Brii Walters on 07-19-2023 Beta HCG ( test) Ql Negative (07/19/23 9:38 AM) Normal [facility] Man Sero Troponin 0 Hr.on 07-19-2023 Troponin I.cardiac [Mass/Vol] ng/mL Low 10.10-27.10 [facility] Comment on above: Result Comment: The 95% CI (Confidence Interval) PPV (Positive Predictive Value) for myocardial infarction in females is 38 pg/mL, in males 51 pg/mL. The results should be used in conjunction with clinical conditions of myocardial infarction.(Access High Sensitivity Troponin I Instructions For Use, Tegan Sammie, November 2017) Performed By: #### 1 8165766, 5950557, 03850759, 73091380, 7711809, 74152908, 6411832 ####[facility] [address] [place] [address] XR Chest Single Viewon 07-18 XR Chest Single View Normal [facility] eGFRon 07-19-2023 eGFR 102 mL/min/1.73 m2 Normal >=59 [facility] Comment on above: Order Comment: Order added by Discern Expert. Performed By: #### 1 8702751, 4027473, 32317962, 94425812, 0946109, 61215823, 8382862 ####[facility] [address] [place] [address] ED Note-Physicianon 07-14-19 ED Note-Physician Normal [facility] Comment on above: Result Comment: Elec tronically Signed By: Siomara Nettles PA-C\.br\Date and Time Signed: 07/12/23 20:40 EDT\.br\Electronically Co-Signed By: Justo Arias DO\.br\Date and Time Co-Signed: 07/14/23 07:25 EDT Physician Orderon 07-14-2023 Physician Order [id number]#1 .00TIFF Normal [facility] XR Chest Single Viewon 07-12 XR Chest Single View Normal [facility] BMPon 07-12-2023 Anion gap [Moles/Vol] 14 mmol/L Normal 6-16 [facility] Comment on above: Performed By: #### 2 461443, 28933514, 95050091, 6863659, 1861918, 73608074 ####[facility] [address] [place] [address] Calcium [Mass/Vol] 10.1 mg/dL Normal 8.9-11.1 [facility] Comment on above: Performed By: #### 2 251438, 11439504, 35542299, 9723143, 7503335, 49151909 ####[facility] [address] [place] [address] Chloride [Moles/Vol] 101 mmol/L Normal 101-111 [facility] Comment on above: Performed By: #### 2 130468, 85913438, 73552921, 3560034, 9246154, 20151533 ####[facility] [address] [place] [address] CO2 [Moles/Vol] 24 mmol/L Normal 21-31 [facility] Comment on above: Performed By: #### 2 711157, 66610973, 45224187, 6966094, 6472034, 91083067 ####[facility] [address] [place] [address] Creatinine [Mass/Vol] 0.9 mg/dL Normal 0.5-1.3 [facility] Comment on above: Performed By: #### 2 220283, 77011956, 10947056, 6159216, 4580147, 03311982 ####[facility] [address] [place] [address] Glucose [Mass/Vol] 98 mg/dL Normal 55-199 [facility] Comment on above: Performed By: #### 2 725153, 34098487, 02396470, 4561634, 7191805, 05692531 ####[facility] [address] [place] [address] Potassium [Moles/Vol] 3.1 mmol/L Low 3.5-5.3 [facility] Comment on above: Performed By: #### 2 494938, 30330505, 58444987, 1072048, 8569198, 10156227 ####[facility] [address] [place] [address] Sodium [Moles/Vol] 136 mmol/L Normal 135-145 [facility] Comment on above: Performed By: #### 2 321609, 18504603, 87012103, 7787834, 5051897, 05100100 ####[facility] [address] [place] [address] Urea nitrogen [Mass/Vol] 8 mg/dL Normal 5-21 [facility] Comment on above: Performed By: #### 2 126998, 02305059, 92592218, 1571642, 7124873, 72802121 ####[facility] [address] [place] [address] Urea nitrogen/Creatinine [Mass ratio] 9 No Units Low 10-20 [facility] Comment on above: Performed By: #### 2 752137, 69965833, 21756522, 7615026, 4183798, 65908357 ####[facility] [address] [place] [address] CBC w/ Auto Diffon 03-16-202 4 Basophils/100 WBC (Bld) 0.5 % Normal 0.0-2.0 [facility] Comment on above: Performed By: #### 2 211734, 91302335, 01018868, 3594515, 6966922, 67720836 ####[address] [address] Basophils/Leukocytes Auto (Bld) [Pure # fraction] 0.1 E9/L Normal 0.0-0.2 [facility] Comment on above: Performed By: #### 2 858926, 70982999, 73127908, 0919048, 9453872, 52318612 ####[address] [address] Eosinophils (Bld) [#/Vol] 0.1 E9/L Normal 0.0-0.5 [facility] Comment on above: Performed By: #### 2 930143, 79955630, 12419746, 0320990, 4270495, 98710805 ####[address] [address] Eosinophils/100 WBC (Bld) 0.4 % Normal 0.0-8.0 [facility] Comment on above: Performed By: #### 2 128362, 77786710, 04310830, 5243384, 7114275, 22533406 ####[address] [address] Erythrocyte distribution width (RBC) [Ratio] 13.0 % Normal 10.9-14.2 [facility] Comment on above: Performed By: #### 2 675108, 41631509, 67310536, 6453868, 2442531, 48148802 ####[address] [address] Hematocrit (Bld) [Volume fraction] 41.4 % Normal 34.0-46.0 [facility] Comment on above: Performed By: #### 2 570051, 10442421, 80887749, 3072184, 5451153, 83996739 ####[facility] [address] [place] [address] Hemoglobin (Bld) [Mass/Vol] 14.1 g/dL Normal 12.0-16.0 [facility] Comment on above: Performed By: #### 2 042643, 69499119, 93383671, 0714119, 4574801, 83861043 ####[facility] [address] [place] [address] Lymphocytes (Bld) [#/Vol] 3.3 E9/L Normal 1.0-4.0 [facility] Comment on above: Performed By: #### 2 038488, 18775531, 30952537, 8394708, 6940614, 52071021 ####[address] [address] Lymphocytes/100 WBC (Bld) 26.4 % Normal 14.0-50.0 [facility] Comment on above: Performed By: #### 2 635466, 49236627, 06017113, 9426508, 2853969, 30903465 ####[facility] [address] [place] [address] MCH (RBC) [Entitic mass] 30.1 pg Normal 27.0-34.0 [facility] Comment on above: Performed By: #### 2 296908, 86619147, 83384391, 0712250, 5331175, 54567353 ####[facility] [address] [place] [address] MCHC (RBC) [Mass/Vol] 34.1 g/dL Normal 31.4-36.0 [facility] Comment on above: Performed By: #### 2 080290, 36555057, 45247467, 1537442, 0528036, 57083862 ####[facility] [address] [place] [address] MCV (RBC) [Entitic vol] 88.3 fL Normal 80.0-100.0 [facility] Comment on above: Performed By: #### 2 047168, 22936514, 25079491, 2456557, 2836050, 26627807 ####[facility] [address] [place] [address] Monocytes (Bld) [#/Vol] 0.8 E9/L Normal 0.2-1.0 [facility] Comment on above: Performed By: #### 2 738537, 01851334, 69175240, 4436529, 2092805, 21031756 ####[facility] [address] [place] [address] Neutrophils (Bld) [#/Vol] 8.4 E9/L High 2.0-7.5 [facility] Comment on above: Performed By: #### 2 145098, 16495873, 69055016, 6440875, 1825209, 66705929 ####[address] [address] Neutrophils/100 WBC (Bld) 66.6 % Normal 36.0-75.0 [facility] Comment on above: Performed By: #### 2 969300, 77103888, 92611655, 1132796, 6620702, 78389620 ####[address] [place] [address] Platelet 446.0 E9/L Normal 150.0-500.0 [facility] Comment on above: Performed By: #### 2 509636, 42516125, 04741313, 9277150, 1753679, 52727299 ####[facility] [address] [place] [address] Platelet mean volume (Bld) [Entitic vol] 6.7 fL Normal 6.4-10.8 [facility] Comment on above: Performed By: #### 2 652364, 23985174, 17045342, 0777382, 2111928, 68434894 ####[address] [address] RBC (Bld) [#/Vol] 4.7 E12/L Normal 4.3-5.9 [facility] Comment on above: Performed By: #### 2 219183, 46436147, 71522108, 4021578, 0899022, 42835556 ####[facility] [address] [place] [address] WBC corrected for nucl RBC Auto (Bld) [#/Vol] 12.6 E9/L High 4.0-11.0 [facility] Comment on above: Performed By: #### 2 185310, 05473949, 03632883, 5461233, 5118757, 40912918 ####[facility] [address] [place] [address] CHEMISTRYOrdered By: SYSTEM SYSTEM on 07-12-2023 Anion gap [Moles/Vol] 14 mmol/L Normal 6 - 16 mEq/L R emisol Chem Calcium [Mass/Vol] 10.1 mg/dL Normal 8.9 - 11. 1 mg/dL Remisol Chem Chloride [Moles/Vol] 101 mmol/L Normal 101 - 1 11 mmol/L Remisol Chem CO2 [Moles/Vol] 24 mmol/L Normal 21 - 31 mmol/L Remisol Chem Creatinine [Mass/Vol] 0.9 mg/dL Normal 0.5 - 1.3 mg/dL Remisol Chem eGFR 89 mL/min/1.73 m2 Normal >=59mL/min /1 .73 m2 Remisol Chem Glucose [Mass/Vol] 98 mg/dL Normal 55 - 199 mg/dL Remisol Chem Magnesium [Mass/Vol] 2.0 mg/dL Normal 1.3 - 2 .4 mg/dL Remisol Chem Potassium [Moles/Vol] 3.1 mmol/L Low 3.5 - 5.3 mmol/L Remisol Chem Sodium [Moles/Vol] 136 mmol/L Normal 135 - 145 mmol/L Remisol Chem Troponin pg/mL Low 10.10 - 27.10 pg/mL Remisol Chem Comment on above: Interpretive Data: T he 95% CI (Confidence Interval) PPV (Positive Predictive Value) for myocardial infarction in females is 38 pg/mL, in males 51 pg/mL. The results should be used in conjunction with clinical conditions of myocardial infarction. (Access High Sensitivity Troponin I Instructions For Use, Tegan Sammie, November 2017) Urea nitrogen [Mass/Vol] 8 mg/dL Normal 5 - 21 mg/dL Remisol Chem Urea nitrogen/Creatinine [Mass ratio] 9 mg/mg Low 10 - 20 Remisol Chem COAGULATIONOrdered By: Azam Canas on 07-12-2023 aPTT Coag (PPP) [Time] 35.8 s Normal 25.1 - 36.5 second(s) [facility] Comment on above: Interpretive Data: P arameter 15 days - 4 weeks 1 - 5 months 6 - 11 months 1 - 5 years 6 - 10 years 11 - 17 years PTT Mean: 35.4 (27.6-45.6) Mean: 33.5 (24.8-40.7) Mean: 32.4 (25.1-40.7) Mean: 31.6 (24.0-39.2) Mean: 31.6 (26.9-38.7) Mean: 31.0 (24.6-38.4) Pediatric Reference ranges were obtained from a study by Jomar Rojas et al. prepared from 1437 samples obtained at 7 different centers using the same coagulation reagent and instrumentation as [facility] Currently there are no coagulation studies available worldwide for children to 14 days, and no normal ranges. Heparin therapeutic range (represented by Anti-Factor Xa activity of 0.2 - 0.4 U/mL) corresponds to PTT of 56.6 - 109.0 sec. INR Coag (PPP) [Relative time] 1.18 {INR} Invalid Interpretation Code [facility] Comment on above: Interpretive Data: I NR results are specifically intended to assess patients stabilized on long-term Anticoagulation therapy suggested INR s Less Intensive Anticoagulation 2.0 3.0 Conventional Range 3.0 4.5 PT Coag (PPP) [Time] 13.2 s High 9.4 - 1 2.5 second(s) [facility] Comment on above: Interpretive Data: 1 5 days - 4 weeks 1 - 5 months 6 -11 months 1 5 years 6 10 years 11 -17 years Mean: 11.2 (9.5 12.6) Mean: 11.0 (9.7 12.8) Mean: 11.0 (9.8 13.0) Mean: 11.3 (9.9 13.4) Mean: 11.7 (10.0 14.6) Mean: 11.8 (10.0 - 14.1) Pediatric Reference ranges were obtained from a study by Jomar Rojas et al. prepared from 1437 samples obtained at 7 different centers using the same coagulation reagent and instrumentation as [facility] Currently there are no coagulation studies available worldwide for children to 14 days, and no normal ranges. Consent for Treatmenton 06-26 Consent for Treatment [id number]#1 .00TIFF Normal [facility] Discharge Instructionson Discharge Instructions [id number]# 1.00TIFF Normal [facility] ED Clinical Summaryon 2023 ED Clinical Summary Normal [facility] ED Patient Education Noteon 07-12-2023 ED Patient Education Note Normal [facility] ED Patient Summaryon 024 ED Patient Summary Normal [facility] HEMATOLOGYOrdered By: SYSTEM SYSTEM on 07-12-2023 Basophils/100 WBC (Bld) 0.5 % Normal 0.0 - 2.0 % Remisol Heme Basophils/Leukocytes Auto (Bld) [Pure # fraction] 0.1 E9/L Normal 0.0 - 0.2 E9/L Remisol Heme Eosinophils (Bld) [#/Vol] 0.1 E9/L Normal 0.0 - 0.5 E9/L Remisol Heme Eosinophils/100 WBC (Bld) 0.4 % Normal 0.0 - 8.0 % Remisol Heme Erythrocyte distribution width (RBC) [Ratio] 13.0 % Normal 10.9 - 14.2 % Remisol Heme Hematocrit (Bld) [Volume fraction] 41.4 % Normal 34.0 - 46.0 % Remisol Heme Hemoglobin (Bld) [Mass/Vol] 14.1 g/dL Normal 12.0 - 16.0 gm/dL Remisol Heme Lymphocytes (Bld) [#/Vol] 3.3 E9/L Normal 1.0 - 4.0 E9/L Remisol Heme Lymphocytes/100 WBC (Bld) 26.4 % Normal 14.0 - 50.0 % Remisol Heme MCH (RBC) [Entitic mass] 30.1 pg Normal 27.0 - 34.0 pg Remisol Heme MCHC (RBC) [Mass/Vol] 34.1 g/dL Normal 31.4 - 36.0 gm/dL Remisol Heme MCV (RBC) [Entitic vol] 88.3 fL Normal 80.0 - 100.0 fL Remisol Heme Monocytes (Bld) [#/Vol] 0.8 E9/L Normal 0.2 - 1.0 E9/L Remisol Heme Monocytes/100 WBC (Bld) 6.1 % Normal 4.0 - 14.0 % [facility] Heme Neutrophils (Bld) [#/Vol] 8.4 E9/L High 2.0 - 7.5 E9/L Remisol Heme Neutrophils/100 WBC (Bld) 66.6 % Normal 36.0 - 75.0 % [facility] Heme Platelet 446.0 E9/L Normal 150.0 - 500.0 E9/L Remisol Heme Platelet mean volume (Bld) [Entitic vol] 6.7 fL Normal 6.4 - 10.8 fL Remisol Heme RBC (Bld) [#/Vol] 4.7 E12/L Normal 4.3 - 5.9 E12/L Remisol Heme WBC corrected for nucl RBC Auto (Bld) [#/Vol] 12.6 E9/L High 4.0 - 11.0 E9/L Remisol Heme Magnesiumon 07-12-2023 Magnesium [Mass/Vol] 2.0 mg/dL Normal 1.3-2.4 [facility] Comment on above: Performed By: #### 2 026585, 38939926, 66853232, 4626808, 2698181, 92193551 ####[facility] [address] [place] [address] Monitor Recordon 07-12-2023 Monitor Record [id number]# 1.00TIFF Normal [facility] PT & PTTon 07-12-2023 aPTT Coag (PPP) [Time] 35.8 second(s) Normal 25.1-36.5 [facility] Comment on above: Result Comment: Para meter 15 days - 4 weeks 1 - 5 months 6 - 11 months 1 - 5 years 6 - 10 years 11 - 17 years PTT Mean: 35.4 (27.6-45.6) Mean: 33.5 (24.8-40.7) Mean: 32.4 (25.1-40.7) Mean: 31.6 (24.0-39.2) Mean: 31.6 (26.9-38.7) Mean: 31.0 (24.6-38.4) Pediatric Reference ranges were obtained from a study by Jomar Rojas et al. prepared from 1437 samples obtained at 7 different centers using the same coagulation reagent and instrumentation as [facility] Currently there are no coagulation studies available worldwide for children to 14 days, and no normal ranges. Heparin therapeutic range (represented by Anti-Factor Xa activity of 0.2 - 0.4 U/mL) corresponds to PTT of 56.6 - 109.0 sec. Performed By: #### 2 448603, 10557818, 91488079, 1775854, 0858962, 57879223 ####[facility] [address] [place] [address] INR Coag (PPP) [Relative time] 1.18 {INR} Invalid Interpretation Code [facility] Comment on above: Result Comment: INR results are specifically intended to assess patients stabilized on long-term Anticoagulation therapy suggested INR?s ?Less Intensive Anticoagulation? 2.0 ? 3.0Conventional Range 3.0 ? 4.5 Performed By: #### 2 927509, 89000087, 06773614, 7711841, 7995468, 61703730 ####[facility] [address] [place] [address] PT Coag (PPP) [Time] 13.2 second(s) High 9.4-12.5 [facility] Comment on above: Result Comment: 15 d ays - 4 weeks 1 - 5 months 6 -11 months 1 ? 5 years 6 ? 10 years 11 -17 years Mean: 11.2 (9.5 ? 12.6) Mean: 11.0 (9.7 ? 12.8) Mean: 11.0 (9.8 ? 13.0) Mean: 11.3 (9.9 ? 13.4) Mean: 11.7 (10.0 ? 14.6) Mean: 11.8 (10.0 - 14.1) Pediatric Reference ranges were obtained from a study by Jomar Rojas et al. prepared from 1437 samples obtained at 7 different centers using the same coagulation reagent and instrumentation as [facility] Currently there are no coagulation studies available worldwide for children to 14 days, and no normal ranges. Performed By: #### 2 723752, 08428885, 86896048, 8736694, 2063875, 10498581 ####[facility] [address] [place] [address] Physician Orderon 07-12-2023 Physician Order [id number]# 1.00TIFF Normal [facility] Troponin 0 Hr.on 07-12-2023 Troponin I.cardiac [Mass/Vol] ng/mL Low 10.10-27.10 [facility] Comment on above: Result Comment: The 95% CI (Confidence Interval) PPV (Positive Predictive Value) for myocardial infarction in females is 38 pg/mL, in males 51 pg/mL. The results should be used in conjunction with clinical conditions of myocardial infarction.(Access High Sensitivity Troponin I Instructions For Use, Tegan Cochran, November 2017) Performed By: #### 2 218023, 35755238, 55507524, 6932664, 0432061, 21620477 ####[facility] [address] [place] [address] eGFRon 07-12-2023 eGFR 89 mL/min/1.73 m2 Normal >=59 [facility] Comment on above: Order Comment: Order added by Discern Expert. Performed By: #### 2 773437, 82827660, 50947161, 2942698, 9580507, 63039683 ####[facility] [address] [place] [address] Consenton 07-10-2023 Consent [id number]#1 .00TIFF Normal [facility] C Urineon 07-09-2023 Bacteria identified Cx Nom (U) Normal [facility] Comment on above: Performed By: #### 2 021549 ####[facility] [address] [place] [address] Family Medicine Office/Clini c Noteon 07-09-2023 Family Medicine Office/Clinic Note Normal [facility] Comment on above: Result Comment: Elec tronically Signed By: Amos Castellon PA-C\.br\Date and Time Signed: 07/09/23 17:05 EDT Patient Educationon 07-09-19 Patient Education Normal [facility] ED Note-Physicianon 07-08-19 ED Note-Physician Normal [facility] Comment on above: Result Comment: Elec tronically Signed By: Sy Pickard PA-C\.br\Date and Time Signed: 07/07/23 14:17 EDT\.br\Electronically Co-Signed By: Justo Arias DO\.br\Date and Time Co-Signed: 07/08/23 06:57 EDT Nonvisit Note - PTon 024 Nonvisit Note - PT Pt did not show this date; Pt will have to return to physician for new script to return to PT. Normal [facility] Ambulatory Visit Summaryon 0 07-07-2023 Ambulatory Visit Summary Normal [facility] B hCG Qualon 07-07-2023 Beta HCG ( test) Ql Negative Normal [facility] Comment on above: Performed By: #### 2 [id number] ####[facility] [address] [place] [address] BMPon 07-07-2023 Anion gap [Moles/Vol] 10 mmol/L Normal 6-16 [facility] Comment on above: Performed By: #### 2 288151, 7698004, 5888647, 5985729, 59099990 ####[facility] [address] [place] [address] Calcium [Mass/Vol] 9.7 mg/dL Normal 8.9-11.1 [facility] Comment on above: Performed By: #### 2 110303, 4645473, 0055117, 6749065, 98474236 ####[facility] [address] [place] [address] Chloride [Moles/Vol] 106 mmol/L Normal 101-111 [facility] Comment on above: Performed By: #### 2 036467, 0196046, 3708277, 5250059, 60856490 ####[facility] [address] [place] [address] CO2 [Moles/Vol] 29 mmol/L Normal 21-31 [facility] Comment on above: Performed By: #### 2 123080, 1563714, 2293040, 2597029, 36863269 ####[facility] [address] [place] [address] Creatinine [Mass/Vol] 0.8 mg/dL Normal 0.5-1.3 [facility] Comment on above: Performed By: #### 2 974171, 8670687, 3394376, 0433161, 00583868 ####[facility] [address] [place] [address] Glucose [Mass/Vol] 102 mg/dL Normal 55-199 [facility] Comment on above: Performed By: #### 2 877828, 2293386, 3853774, 3916676, 95624684 ####[facility] [address] [place] [address] Potassium [Moles/Vol] 3.8 mmol/L Normal 3.5-5.3 [facility] Comment on above: Performed By: #### 2 199375, 5040934, 8823270, 0079742, 72743461 ####[facility] [address] [place] [address] Sodium [Moles/Vol] 141 mmol/L Normal 135-145 [facility] Comment on above: Performed By: #### 2 492050, 9851736, 9579038, 3023811, 04429840 ####[facility] [address] [place] [address] Urea nitrogen [Mass/Vol] 8 mg/dL Normal 5-21 [facility] Comment on above: Performed By: #### 2 338426, 7926968, 1801410, 2785039, 04166420 ####[address] [place] [address] Urea nitrogen/Creatinine [Mass ratio] 10 No Units Normal 10-20 [facility] Comment on above: Performed By: #### 2 646289, 2914949, 7113361, 1443893, 04943006 ####[address] [address] CBC w/ Auto Diffon 4 Basophils/100 WBC (Bld) 0.6 % Normal 0.0-2.0 [facility] Comment on above: Performed By: #### 2 876892, 5632807, 8120440, 4673408, 41040328 ####[address] [address] Basophils/Leukocytes Auto (Bld) [Pure # fraction] 0.1 E9/L Normal 0.0-0.2 [facility] Comment on above: Performed By: #### 2 805362, 1918764, 9456356, 9843380, 64321847 ####[address] [address] Eosinophils (Bld) [#/Vol] 0.2 E9/L Normal 0.0-0.5 [facility] Comment on above: Performed By: #### 2 795084, 0245177, 8715063, 7560061, 47732403 ####[address] [address] Eosinophils/100 WBC (Bld) 2.2 % Normal 0.0-8.0 [facility] Comment on above: Performed By: #### 2 945138, 7005721, 4402312, 8507433, 55217038 ####[address] [address] Erythrocyte distribution width (RBC) [Ratio] 13.1 % Normal 10.9-14.2 [facility] Comment on above: Performed By: #### 2 177553, 3560641, 3501395, 5383264, 36350045 ####[address] [address] Hematocrit (Bld) [Volume fraction] 44.2 % Normal 34.0-46.0 [facility] Comment on above: Performed By: #### 2 177774, 3390170, 1540406, 5122342, 77821680 ####[address] [address] Hemoglobin (Bld) [Mass/Vol] 14.6 g/dL Normal 12.0-16.0 [facility] Comment on above: Performed By: #### 2 886805, 5295575, 4915854, 8954945, 00206089 ####[address] [address] Lymphocytes (Bld) [#/Vol] 2.2 E9/L Normal 1.0-4.0 [facility] Comment on above: Performed By: #### 2 874479, 3923689, 6224653, 1582978, 53185958 ####[address] [address] Lymphocytes/100 WBC (Bld) 26.0 % Normal 14.0-50.0 [facility] Comment on above: Performed By: #### 2 705248, 1875448, 5523938, 1942180, 15160601 ####[address] [address] MCH (RBC) [Entitic mass] 30.1 pg Normal 27.0-34.0 [facility] Comment on above: Performed By: #### 2 740878, 1052460, 5619768, 1869443, 90121304 ####[address] [address] MCHC (RBC) [Mass/Vol] 33.1 g/dL Normal 31.4-36.0 [facility] Comment on above: Performed By: #### 2 704698, 5344822, 8231598, 6721306, 04235990 ####[address] [address] MCV (RBC) [Entitic vol] 90.7 fL Normal 80.0-100.0 [facility] Comment on above: Performed By: #### 2 511648, 3318982, 5130096, 3634282, 32162790 ####[address] [address] Monocytes (Bld) [#/Vol] 0.5 E9/L Normal 0.2-1.0 [facility] Comment on above: Performed By: #### 2 796450, 4462099, 8806014, 1009733, 79528710 ####[address] [address] Neutrophils (Bld) [#/Vol] 5.6 E9/L Normal 2.0-7.5 [facility] Comment on above: Performed By: #### 2 545302, 9345990, 3208926, 2587546, 74905580 ####[address] [address] Neutrophils/100 WBC (Bld) 65.3 % Normal 36.0-75.0 [facility] Comment on above: Performed By: #### 2 397355, 5118434, 5716581, 0042356, 06364677 ####[address] [address] Platelet 422.0 E9/L Normal 150.0-500.0 [facility] Comment on above: Performed By: #### 2 509053, 1707028, 1851213, 8801788, 87764022 ####[address] [place] [address] Platelet mean volume (Bld) [Entitic vol] 7.1 fL Normal 6.4-10.8 [facility] Comment on above: Performed By: #### 2 636397, 8101416, 7593020, 0732574, 30442105 ####[facility] [address] [place] [address] RBC (Bld) [#/Vol] 4.9 E12/L Normal 4.3-5.9 [facility] Comment on above: Performed By: #### 2 797277, 7591333, 0921441, 4897582, 13435846 ####[facility] [address] [place] [address] WBC corrected for nucl RBC Auto (Bld) [#/Vol] 8.6 E9/L Normal 4.0-11.0 [facility] Comment on above: Performed By: #### 2 054990, 6541176, 4130588, 7966192, 60335465 ####[facility] [address] [place] [address] CHEMISTRYOrdered By: SYSTEM SYSTEM on 07-07-2023 Albumin [Mass/Vol] 4.8 g/dL Normal 3.3 - 5.0 gm/dL Remisol Chem Albumin/Globulin [Mass ratio] 1.7 {ratio} Normal 1.1 - 2.2 Remisol Chem ALP [Catalytic activity/Vol] 109 [iU]/d High 21 - 98 Int._Unit/L Remisol Chem ALT No additional P-5'-P [Catalytic activity/Vol] 15 [iU]/d Normal 6 - 46 Int._Unit/L Remisol Chem Anion gap [Moles/Vol] 10 mmol/L Normal 6 - 16 mEq/L R emisol Chem AST [Catalytic activity/Vol] 16 [iU]/d Normal 5 - 43 Int._Unit/L Remisol Chem Bilirubin [Mass/Vol] 0.3 mg/dL Normal 0.0 - 1 .1 mg/dL Remisol Chem Bilirubin.direct [Mass/Vol] 0.1 mg/dL Normal 0.0 - 0.4 mg/dL Remisol Chem Bilirubin.indirect [Mass or moles/Vol] 0.2 mg/dL Normal 0.1 - 0.9 mg/dL Remisol Chem Calcium [Mass/Vol] 9.7 mg/dL Normal 8.9 - 11. 1 mg/dL Rem[facility] Chem Chloride [Moles/Vol] 106 mmol/L Normal 101 - 1 11 mmol/L Remisol Chem CO2 [Moles/Vol] 29 mmol/L Normal 21 - 31 mmol/L Remisol Chem Creatinine [Mass/Vol] 0.8 mg/dL Normal 0.5 - 1.3 mg/dL Remisol Chem eGFR 102 mL/min/1.73 m2 Normal >=59mL/mi n/1 .73 m2 Remisol Chem Globulin (S) [Mass/Vol] 2.8 g/dL Normal 1.4 - 4.0 gm/dL Remisol Chem Glucose [Mass/Vol] 102 mg/dL Normal 55 - 199 mg/dL Remisol Chem Lipase [Catalytic activity/Vol] 33 U/L Normal 13 - 58 unit/L Remisol Chem Potassium [Moles/Vol] 3.8 mmol/L Normal 3.5 - 5.3 mmol/L Remisol Chem Protein [Mass/Vol] 7.6 g/dL Normal 6.0 - 7.8 gm/dL Remisol Chem Sodium [Moles/Vol] 141 mmol/L Normal 135 - 145 mmol/L Remisol Chem Urea nitrogen [Mass/Vol] 8 mg/dL Normal 5 - 21 mg/dL Remisol Chem Urea nitrogen/Creatinine [Mass ratio] 10 mg/mg Normal 10 - 20 Remisol Chem Consent for Treatmenton 06-26 Consent for Treatment [id number]#1 .00TIFF Normal [facility] Discharge Instructionson Discharge Instructions [id number]# 1.00TIFF Normal [facility] ED Clinical Summaryon 2023 [facility]on 07-07-2023 ED Patient Education Note Normal [facility] ED Patient Summaryon 024 ED Patient Summary Normal [facility] Family Medicine Office/Clini c Noteon 07-07-2023 [facility] Office/Clinic Note Normal [facility] Comment on above: Result Comment: Elec tronically Signed By: LANETTE LUI PA-C\.tesha\Date and Time Signed: 07/07/23 11:20 EDT HEMATOLOGYOrdered By: SYSTEM SYSTEM on 07-07-2023 Basophils/100 WBC (Bld) 0.6 % Normal 0.0 - 2.0 % Remisol Heme Basophils/Leukocytes Auto (Bld) [Pure # fraction] 0.1 E9/L Normal 0.0 - 0.2 E9/L Remisol Heme Eosinophils (Bld) [#/Vol] 0.2 E9/L Normal 0.0 - 0.5 E9/L Remisol Heme Eosinophils/100 WBC (Bld) 2.2 % Normal 0.0 - 8.0 % Remisol Heme Erythrocyte distribution width (RBC) [Ratio] 13.1 % Normal 10.9 - 14.2 % Remisol Heme Hematocrit (Bld) [Volume fraction] 44.2 % Normal 34.0 - 46.0 % Remisol Heme Hemoglobin (Bld) [Mass/Vol] 14.6 g/dL Normal 12.0 - 16.0 gm/dL Remisol Heme Lymphocytes (Bld) [#/Vol] 2.2 E9/L Normal 1.0 - 4.0 E9/L Rem[facility] Heme Lymphocytes/100 WBC (Bld) 26.0 % Normal 14.0 - 50.0 % Remisol Heme MCH (RBC) [Entitic mass] 30.1 pg Normal 27.0 - 34.0 pg Remisol Heme MCHC (RBC) [Mass/Vol] 33.1 g/dL Normal 31.4 - 36.0 gm/dL Remisol Heme MCV (RBC) [Entitic vol] 90.7 fL Normal 80.0 - 100.0 fL Rem[facility] Heme Monocytes (Bld) [#/Vol] 0.5 E9/L Normal 0.2 - 1.0 E9/L Rem[facility] Heme Monocytes/100 WBC (Bld) 5.9 % Normal 4.0 - 14.0 % Rem[facility] Heme Neutrophils (Bld) [#/Vol] 5.6 E9/L Normal 2.0 - 7.5 E9/L Rem[facility] Heme Neutrophils/100 WBC (Bld) 65.3 % Normal 36.0 - 75.0 % Rem[facility] Heme Platelet 422.0 E9/L Normal 150.0 - 500.0 E9/L Rem[facility] Heme Platelet mean volume (Bld) [Entitic vol] 7.1 fL Normal 6.4 - 10.8 fL Remisol Heme RBC (Bld) [#/Vol] 4.9 E12/L Normal 4.3 - 5.9 E12/L [facility] Heme WBC corrected for nucl RBC Auto (Bld) [#/Vol] 8.6 E9/L Normal 4.0 - 11.0 E9/L [facility] Heme Hep Func Panelon 07-07-2023 Albumin [Mass/Vol] 4.8 g/dL Normal 3.3-5.0 [facility] Comment on above: Performed By: #### 2 841818, 3529840, 1631118, 2393184, 95844793 ####[facility] [address] [place] [address] Albumin/Globulin (S) [Mass conc ratio] 1.7 Normal 1.1-2.2 [facility] Comment on above: Performed By: #### 2 120055, 1587187, 3679798, 0275480, 81902795 ####[facility] [address] [place] [address] ALP [Catalytic activity/Vol] 109 Int._Unit/L High 21-98 [facility] Comment on above: Performed By: #### 2 083334, 6900557, 0023187, 7340850, 60909033 ####[facility] [address] [place] [address] ALT No additional P-5'-P [Catalytic activity/Vol] 15 Int._Unit/L Normal 6-46 [facility] Comment on above: Performed By: #### 2 019037, 3617092, 6389914, 5071853, 56764861 ####[facility] [address] [place] [address] AST [Catalytic activity/Vol] 16 Int._Unit/L Normal 5-43 [facility] Comment on above: Performed By: #### 2 876973, 2838198, 1055920, 3253639, 71322407 ####[facility] [address] [place] [address] Bilirubin [Mass/Vol] 0.3 mg/dL Normal 0.0-1.1 [facility] Comment on above: Performed By: #### 2 501534, 1665471, 6113864, 4090387, 34215577 ####[facility] [address] [place] [address] Bilirubin.direct [Mass/Vol] 0.1 mg/dL Normal 0.0-0.4 [facility] Comment on above: Performed By: #### 2 146402, 4567997, 8414830, 6521031, 11754527 ####[address] [address] Bilirubin.indirect [Mass or moles/Vol] 0.2 mg/dL Normal 0.1-0.9 [facility] Comment on above: Performed By: #### 2 415610, 0432858, 5437355, 1143416, 92934105 ####[facility] [address] [place] [address] Globulin (S) [Mass/Vol] 2.8 g/dL Normal 1.4-4.0 [facility] Comment on above: Performed By: #### 2 887710, 7469661, 8436210, 1424464, 90567395 ####[facility] [address] [place] [address] Protein [Mass/Vol] 7.6 g/dL Normal 6.0-7.8 [facility] Comment on above: Performed By: #### 2 889016, 0031389, 2443123, 7948550, 81640999 ####[address] [place] [address] Lipase Levelon 03-11-2024 Lipase [Catalytic activity/Vol] 33 U/L Normal 13-58 [facility] Comment on above: Performed By: #### 2 [id number], [id number], 6345429, 4592556, [id number] ####[facility] [address] [place] [address] Patient Educationon 07-07-19 Patient Education Normal [facility] Prescriptions/Work Noteson 0 07-07-2023 Prescriptions/Work Notes [id number]# 1.00TIFF Normal [facility] SEROLOGYOrdered By: Brii Walters on 07-07-2023 Beta HCG ( test) Ql Negative (07/07/23 11:20 AM) Normal [facility] [place] Sero UA With Cult Reflexon 2023 Bacteria LM Ql (Urine sed) TRACE Normal Trace [facility] Comment on above: Performed By: #### 1 [id number] ####[facility] [address] [place] [address] Bilirubin Ql (U) Negative Normal Negative [facility] Comment on above: Performed By: #### 1 [id number] ####[facility] [address] [place] [address] Clarity (U) CLEAR Normal Clear [facility] Comment on above: Performed By: #### 1 [id number] ####[facility] [address] [place] [address] Color (U) YELLOW Normal Yellow [facility] Comment on above: Performed By: #### 1 [id number] ####[facility] [address] [place] [address] Epithelial cells.squamous LM.HPF (Urine sed) [#/Area] 0-2 Normal 0-2 [facility] Comment on above: Performed By: #### 1 [id number] ####[facility] [address] [place] [address] Glucose Test strip (U) [Mass/Vol] Negative Normal Negative [facility] Comment on above: Performed By: #### 1 [id number] ####[address] [place] [address] Hemoglobin Ql (U) Negative Normal Negative [facility] Comment on above: Performed By: #### 1 [id number] ####[address] [address] Ketones (U) [Mass/Vol] Negative Normal Negative [facility] Comment on above: Performed By: #### 1 [id number] ####[address] [address] [place].plasma/[place]. RBC (Bld) [Mass ratio] 0-3 Normal 0-3 [facility] Comment on above: Performed By: #### 1 [id number] ####[address] [address] Mucus Ql (Urine sed) TRACE Normal Fish [facility] Comment on above: Performed By: #### 1 7036436 ####[address] [address] Nitrite Ql (U) Negative Normal Negative [facility] Comment on above: Performed By: #### 1 8766464 ####[address] [address] pH (U) 7.0 [pH] Invalid Interpretation Code 5.0-9.0 [facility] Comment on above: Performed By: #### 1 8783841 ####[address] [address] Protein (U) [Mass/Vol] Negative Normal Negative [facility] Comment on above: Performed By: #### 1 [id number] ####[address] [address] Specific gravity (U) [Rel density] 1.015 Invalid Interpretation Code 1.005-1.030 [facility] Comment on above: Performed By: #### 1 [id number] ####[address] [address] Type of Urine collection method Clean Catch Normal [facility] Comment on above: Performed By: #### 1 [id number] ####[facility] [address] [place] [address] Urobilinogen Qn (U) 0.2 {Jane'U}/dL Normal 0.0-1.0 [facility] Comment on above: Performed By: #### 1 1276839 ####[facility] [address] [place] [address] WBC Auto Ql (U) Negative Normal Negative [facility] Comment on above: Performed By: #### 1 8542917 ####[facility] [address] [place] [address] WBC LM.HPF (Urine sed) [#/Area] 0-5 Normal 0-5 [facility] Comment on above: Performed By: #### 1 [id number] ####[facility] [address] [place] [address] URINALYSISOrdered By: Michael Walters on 07-07-2023 Bacteria LM Ql (Urine sed) Trace /HPF Normal Trace/HPF [facility] UA Auto SS Bilirubin Ql (U) Negative (07/07/23 11:26 AM) Normal Negative [facility] UA Auto SS Clarity (U) Clear (07/07/23 11:26 AM) Normal Clear [facility] UA Auto SS Color (U) Yellow (07/07/23 11:26 AM) Normal Yellow [facility] Auto SS Epithelial cells.squamous LM.HPF (Urine sed) [#/Area] 0-2 /HPF Normal 0-2/HPF [facility] UA Aut o SS Glucose Test strip (U) [Mass/Vol] Negative (07/07/23 11:26 AM) Normal Negative [facility] UA Auto SS Hemoglobin Ql (U) Negative (07/07/23 11:26 AM) Normal Negative [facility] UA Auto SS Ketones (U) [Mass/Vol] Negative (07/07/23 11:26 AM) Normal Negative [facility] UA Auto SS [place].plasma/[place]. RBC (Bld) [Mass ratio] 0-3 /HPF Normal 0-3/HPF [facility] UA A uto SS Mucus Ql (Urine sed) Trace (07/07/23 11:26 AM) Normal [facility] UA Auto SS Nitrite Ql (U) Negative (07/07/23 11:26 AM) Normal Negative [facility] UA Auto SS pH (U) 7.0 *NA* (07/07/23 11:26 AM) Invalid Interpretation Code 5.0 - 9.0 [facility] UA Auto SS Protein (U) [Mass/Vol] Negative (07/07/23 11:26 AM) Normal Negative [facility] UA Auto SS Specific gravity (U) [Rel density] 1.015 *NA* (07/07/23 11:26 AM) Invalid Interpretation Code 1.005 - 1.030 [facility] UA Auto SS UA Spec Desc Clean Catch (07/07/23 11:26 AM) Normal [facility] UA Auto SS Urobilinogen Qn (U) 0.3868636 {Jane'U}/dL Normal 0.0 - 1.0 EU/dL [facility] UA Auto SS WBC Auto Ql (U) Negative (07/07/23 11:26 AM) Normal Negative [facility] UA Auto SS WBC LM.HPF (Urine sed) [#/Area] 0-5 /HPF Normal 0-5/HPF [facility] UA Auto SS XR Abdomen 1 Viewon 07-07-19 XR Abdomen 1 View Normal [facility] eGFRon 07-07-2023 eGFR 102 mL/min/1.73 m2 Normal >=59 [facility] Comment on above: Order Comment: Order added by Discern Expert. Performed By: #### 2 577346, 3426778, 4389236, 6001168, [id number] ####[facility] [address] [place] [address] BMPon 06-29-2023 Anion gap [Moles/Vol] 11 mmol/L Normal 6-16 [facility] Comment on above: Performed By: #### 1 0518527, 6993253, 66125254, 47657136, 1586924 ####[facility] [address] [place] [address] Calcium [Mass/Vol] 9.4 mg/dL Normal 8.9-11.1 [facility] Comment on above: Performed By: #### 1 7855475, 7497889, 76091162, 68774287, 9113339 ####[facility] [address] [place] [address] Chloride [Moles/Vol] 104 mmol/L Normal 101-111 [facility] Comment on above: Performed By: #### 1 7163778, 1423992, 11983657, 15055680, 0992661 ####[facility] [address] [place] [address] CO2 [Moles/Vol] 27 mmol/L Normal 21-31 [facility] Comment on above: Performed By: #### 1 4684831, 4475878, 01924440, 00043050, 6062043 ####[facility] [address] [place] [address] Creatinine [Mass/Vol] 0.9 mg/dL Normal 0.5-1.3 [facility] Comment on above: Performed By: #### 1 1273252, 3057228, 32599067, 12688271, 3721795 ####[facility] [address] [place] [address] Glucose [Mass/Vol] 109 mg/dL Normal 55-199 [facility] Comment on above: Performed By: #### 1 9498701, 5046642, 39307137, 66753057, 4993550 ####[facility] [address] [place] [address] Potassium [Moles/Vol] 3.5 mmol/L Normal 3.5-5.3 [facility] Comment on above: Performed By: #### 1 0491430, 0396930, 38018514, 13354323, 3454215 ####[facility] [address] [place] [address] Sodium [Moles/Vol] 138 mmol/L Normal 135-145 [facility] Comment on above: Performed By: #### 1 3887677, 8057563, 01901087, 99301311, 8700818 ####[facility] [address] [place] [address] Urea nitrogen [Mass/Vol] 9 mg/dL Normal 5-21 [facility] Comment on above: Performed By: #### 1 6479007, 0759886, 10787788, 55391071, 6813711 ####[facility] [address] [place] [address] Urea nitrogen/Creatinine [Mass ratio] 10 No Units Normal 10-20 [facility] Comment on above: Performed By: #### 1 9179092, 5394439, 76583692, 20315562, 4909406 ####[facility] [address] [place] [address] CBC w/ Auto Diffon 4 Basophils/100 WBC (Bld) 0.4 % Normal 0.0-2.0 [facility] Comment on above: Performed By: #### 1 5082915, 8856559, 54179512, 62248443, 7436221 ####[address] [address] Basophils/Leukocytes Auto (Bld) [Pure # fraction] 0.0 E9/L Normal 0.0-0.2 [facility] Comment on above: Performed By: #### 1 8832891, 5553111, 61401426, 45921931, 9983767 ####[address] [address] Eosinophils (Bld) [#/Vol] 0.0 E9/L Normal 0.0-0.5 [facility] Comment on above: Performed By: #### 1 4410003, 8256383, 90482096, 52128080, 3699729 ####[address] [address] Eosinophils/100 WBC (Bld) 0.3 % Normal 0.0-8.0 [facility] Comment on above: Performed By: #### 1 1439559, 2605982, 22241149, 31282199, 3921827 ####[address] [address] Erythrocyte distribution width (RBC) [Ratio] 13.1 % Normal 10.9-14.2 [facility] Comment on above: Performed By: #### 1 8667989, 4394505, 57660610, 11743859, 0199913 ####[facility] [address] [place] [address] Hematocrit (Bld) [Volume fraction] 39.8 % Normal 34.0-46.0 [facility] Comment on above: Performed By: #### 1 5415314, 5672790, 09231771, 54966157, 2566371 ####[address] [place] [address] Hemoglobin (Bld) [Mass/Vol] 13.2 g/dL Normal 12.0-16.0 [facility] Comment on above: Performed By: #### 1 9263735, 1637533, 24244759, 91472334, 1608784 ####[address] [address] Lymphocytes (Bld) [#/Vol] 1.6 E9/L Normal 1.0-4.0 [facility] Comment on above: Performed By: #### 1 5390653, 7589868, 55571779, 09849706, 9688660 ####[address] [address] Lymphocytes/100 WBC (Bld) 11.8 % Low 14.0-50.0 [facility] Comment on above: Performed By: #### 1 5989949, 0594405, 43671847, 38327093, 3454080 ####[address] [place] [address] MCH (RBC) [Entitic mass] 29.7 pg Normal 27.0-34.0 [facility] Comment on above: Performed By: #### 1 8701239, 8438943, 07030088, 63367530, 7554264 ####[address] [address] MCHC (RBC) [Mass/Vol] 33.1 g/dL Normal 31.4-36.0 [facility] Comment on above: Performed By: #### 1 8684246, 4613785, 69908196, 92920101, 4822273 ####[facility] [address] [place] [address] MCV (RBC) [Entitic vol] 89.7 fL Normal 80.0-100.0 [facility] Comment on above: Performed By: #### 1 1346290, 5385516, 31883759, 28660789, 5833837 ####[address] [address] Monocytes (Bld) [#/Vol] 0.5 E9/L Normal 0.2-1.0 [facility] Comment on above: Performed By: #### 1 1814792, 1603395, 26663424, 91139337, 5490394 ####[address] [address] Neutrophils (Bld) [#/Vol] 11.3 E9/L High 2.0-7.5 [facility] Comment on above: Performed By: #### 1 9127591, 6672452, 45434959, 69598886, 2070403 ####[address] [address] Neutrophils/100 WBC (Bld) 83.8 % High 36.0-75.0 [facility] Comment on above: Performed By: #### 1 3143607, 0913673, 27862810, 76992667, 7687409 ####[address] [place] [address] Platelet 418.0 E9/L Normal 150.0-500.0 [facility] Comment on above: Performed By: #### 1 7703656, 8999960, 25105724, 10316958, 3914793 ####[address] [place] [address] Platelet mean volume (Bld) [Entitic vol] 7.0 fL Normal 6.4-10.8 [facility] Comment on above: Performed By: #### 1 3704836, 0114084, 74094205, 20811362, 3743134 ####[facility] [address] [place] [address] RBC (Bld) [#/Vol] 4.4 E12/L Normal 4.3-5.9 [facility] Comment on above: Performed By: #### 1 6348287, 0535742, 27243621, 99186636, 7851497 ####[facility] [address] [place] [address] WBC corrected for nucl RBC Auto (Bld) [#/Vol] 13.5 E9/L High 4.0-11.0 [facility] Comment on above: Performed By: #### 1 1217871, 6880783, 27745678, 85495167, 0400023 ####[facility] [address] [place] [address] CHEMISTRYOrdered By: SYSTEM SYSTEM on 06-29-2023 Anion gap [Moles/Vol] 11 mmol/L Normal 6 - 16 mEq/L R emisol Chem Calcium [Mass/Vol] 9.4 mg/dL Normal 8.9 - 11. 1 mg/dL [facility] Chloride [Moles/Vol] 104 mmol/L Normal 101 - 1 11 mmol/L [facility] CO2 [Moles/Vol] 27 mmol/L Normal 21 - 31 mmol/L [facility] Creatinine [Mass/Vol] 0.9 mg/dL Normal 0.5 - 1.3 mg/dL [facility] eGFR 89 mL/min/1.73 m2 Normal >=59mL/min /1 .73 m2 [facility] Glucose [Mass/Vol] 109 mg/dL Normal 55 - 199 mg/dL [facility] Potassium [Moles/Vol] 3.5 mmol/L Normal 3.5 - 5.3 mmol/L [facility] Sodium [Moles/Vol] 138 mmol/L Normal 135 - 145 mmol/L [facility] Troponin pg/mL Low 10.10 - 27.10 pg/mL [facility] Comment on above: Interpretive Data: T he 95% CI (Confidence Interval) PPV (Positive Predictive Value) for myocardial infarction in females is 38 pg/mL, in males 51 pg/mL. The results should be used in conjunction with clinical conditions of myocardial infarction. (Access High Sensitivity Troponin I Instructions For Use, Tegan Mahindra REVA, November 2017) Urea nitrogen [Mass/Vol] 9 mg/dL Normal 5 - 21 mg/dL [facility] Urea nitrogen/Creatinine [Mass ratio] 10 mg/mg Normal 10 - 20 [facility] COAGULATIONOrdered By: Gogo Walters on 06-29-2023 aPTT Coag (PPP) [Time] 34.2 s Normal 25.1 - 36.5 second(s) [facility] Co[facility] Comment on above: Interpretive Data: P arameter 15 days - 4 weeks 1 - 5 months 6 - 11 months 1 - 5 years 6 - 10 years 11 - 17 years PTT Mean: 35.4 (27.6-45.6) Mean: 33.5 (24.8-40.7) Mean: 32.4 (25.1-40.7) Mean: 31.6 (24.0-39.2) Mean: 31.6 (26.9-38.7) Mean: 31.0 (24.6-38.4) Pediatric Reference ranges were obtained from a study by Jomar Rojas et al. prepared from 1437 samples obtained at 7 different centers using the same coagulation reagent and instrumentation as [facility]. Currently there are no coagulation studies available worldwide for children to 14 days, and no normal ranges. Heparin therapeutic range (represented by Anti-Factor Xa activity of 0.2 - 0.4 U/mL) corresponds to PTT of 56.6 - 109.0 sec. INR Coag (PPP) [Relative time] 1.11 {INR} Invalid Interpretation Code [facility] Comment on above: Interpretive Data: I NR results are specifically intended to assess patients stabilized on long-term Anticoagulation therapy suggested INR s Less Intensive Anticoagulation 2.0 3.0 Conventional Range 3.0 4.5 PT Coag (PPP) [Time] 12.5 s Normal 9.4 - 1 2.5 second(s) [facility] Comment on above: Interpretive Data: 1 5 days - 4 weeks 1 - 5 months 6 -11 months 1-5 years 6-10 years 11 -17 years Mean: 11.2 (9.5-12.6) Mean: 11.0 (9.7-12.8) Mean: 11.0 (9.8-13.0) Mean: 11.3 (9.9-13.4) Mean: 11.7 (10.0-14.6) Mean: 11.8 (10.0 - 14.1) Pediatric Reference ranges were obtained from a study by Jomar Rojas et al. prepared from 1437 samples obtained at 7 different centers using the same coagulation reagent and instrumentation as [facility]. Currently there are no coagulation studies available worldwide for children to 14 days, and no normal ranges. Consent for Treatmenton Consent for Treatment [id number]#1 .00TIFF Normal [facility] Discharge Instructionson Discharge Instructions [id number]# 1.00TIFF Normal [facility] ED Clinical Summaryon 2023 ED Clinical Summary Normal [facility] ED Note-Physicianon 06-29-19 ED Note-Physician Normal [facility] Comment on above: Result Comment: Elec tronically Signed By: Suman DC, Guille\.br\Date and Time Signed: 06/29/23 08:41 EST ED Patient Education Noteon 06-29-2023 ED Patient Education Note Normal [facility] ED Patient Summaryon 024 ED Patient Summary Normal [facility] HEMATOLOGYOrdered By: SYSTEM SYSTEM on 06-29-2023 Basophils/100 WBC (Bld) 0.4 % Normal 0.0 - 2.0 % [facility] Basophils/Leukocytes Auto (Bld) [Pure # fraction] 0.0 E9/L Normal 0.0 - 0.2 E9/L [facility] Eosinophils (Bld) [#/Vol] 0.0 E9/L Normal 0.0 - 0.5 E9/L [facility] Eosinophils/100 WBC (Bld) 0.3 % Normal 0.0 - 8.0 % [facility] Erythrocyte distribution width (RBC) [Ratio] 13.1 % Normal 10.9 - 14.2 % [facility] Hematocrit (Bld) [Volume fraction] 39.8 % Normal 34.0 - 46.0 % [facility] Hemoglobin (Bld) [Mass/Vol] 13.2 g/dL Normal 12.0 - 16.0 gm/dL [facility] Lymphocytes (Bld) [#/Vol] 1.6 E9/L Normal 1.0 - 4.0 E9/L [facility] Lymphocytes/100 WBC (Bld) 11.8 % Low 14.0 - 50.0 % [facility] MCH (RBC) [Entitic mass] 29.7 pg Normal 27.0 - 34.0 pg [facility] MCHC (RBC) [Mass/Vol] 33.1 g/dL Normal 31.4 - 36.0 gm/dL [facility] MCV (RBC) [Entitic vol] 89.7 fL Normal 80.0 - 100.0 fL [facility] Monocytes (Bld) [#/Vol] 0.5 E9/L Normal 0.2 - 1.0 E9/L [facility] Monocytes/100 WBC (Bld) 3.7 % Low 4.0 - 14.0 % [facility] Neutrophils (Bld) [#/Vol] 11.3 E9/L High 2.0 - 7.5 E9/L [facility] Neutrophils/100 WBC (Bld) 83.8 % High 36.0 - 75.0 % [facility] Platelet 418.0 E9/L Normal 150.0 - 500.0 E9/L [facility] Platelet mean volume (Bld) [Entitic vol] 7.0 fL Normal 6.4 - 10.8 fL [facility] RBC (Bld) [#/Vol] 4.4 E12/L Normal 4.3 - 5.9 E12/L [facility] WBC corrected for nucl RBC Auto (Bld) [#/Vol] 13.5 E9/L High 4.0 - 11.0 E9/L [facility] Influenza A&B Agon 4 Influenzae A Ag Negative Normal Negative [facility] Comment on above: Performed By: #### 1 [id number], [id number] ####[facility] [address] [place] [address] Influenzae B Ag Negative Normal Negative [facility] Comment on above: Result Comment: Test sensitivity and specificity vary for age group, specimen type, antigen types, and prevalence of disease. Test results must be evaluated in conjunction with other clinical data available to the physician. Individuals who received nasally administered Influenza A vaccine may have positive test results up to 3 days after vaccination. Performed By: #### 1 [id number], [id number] ####[facility] [address] [place] [address] MICRO OTHER TESTSOrdered By: Sharon Walters on 06-29-2023 Influenzae A Ag Negative (06/29/23 6:41 AM) Normal Negative [facility] Man Sero Influenzae B Ag Negative 1 (06/29/23 6:41 AM) Normal Negative [facility] Sero Comment on above: Interpretive Data: T est sensitivity and specificity vary for age group, specimen type, antigen types, and prevalence of disease. Test results must be evaluated in conjunction with other clinical data available to the physician. Individuals who received nasally administered Influenza A vaccine may have positive test results up to 3 days after vaccination. Rapid COV Int NEG Ctl Pass (06/29/23 6:41 AM) Normal [facility] Sero Rapid COV Int POS Ctl Pass (06/29/23 6:41 AM) Normal [facility] Sero SARS-CoV+SARS-CoV-2 (COVID-19) Ag IA.rapid Ql (Resp) Not Detected 6 (06/29/23 6:41 AM) Normal Not Detected [facility] Sero Comment on above: Interpretive Data: T he Partnered Veritor System for Rapid Detection of SARS-CoV-2 is a chromatographic digital immunoassay intended for the direct and qualitative detection of SARS-CoV-2 nucleocapsid antigens in nasal swabs from individuals who are suspected of COVID-19 by their healthcare provider within the first five days of the onset of symptoms. Negative results should be treated as presumptive, do not rule out SARS-CoV-2 infection and should not be used as the sole basis for treatment or patient management decisions, including infection control decisions. Negative results should be considered in the context of a patient s recent exposures, history and the presence of clinical signs and symptoms consistent with COVID-19, and confirmed with a molecular assay, if necessary, for patient management. For in vitro diagnostic use. In the [place], only for use under an Emergency Use Authorization. In the [place], this test has not been FDA cleared or approved; this test has been authorized by FDA under an EUA for use by authorized laboratories; use by laboratories certified under the CLIA, 42 U.S.C. 263a, that meet requirements to perform moderate, high, or waived complexity tests and at the Point of Care (POC), i.e., in patient care settings operating under a CLIA Certificate of Waiver, Certificate of Compliance, or Certificate of Accreditation. This test has been authorized only for the detection of proteins from SARS-CoV-2, not for any other viruses or pathogens; and, in the [place], this test is only authorized for the duration of the declaration that circumstances exist justifying the authorization of emergency use of in vitro diagnostics for detection and/or diagnosis of the virus that causes COVID-19 under Section 564(b)(1) of the Act, 21 U.S.C. 360bbb-3(b)(1), unless the authorization is terminated or revoked sooner. PT & PTTon 06-29-2023 aPTT Coag (PPP) [Time] 34.2 second(s) Normal 25.1-36.5 [facility] Comment on above: Result Comment: Para meter 15 days - 4 weeks 1 - 5 months 6 - 11 months 1 - 5 years 6 - 10 years 11 - 17 years PTT Mean: 35.4 (27.6-45.6) Mean: 33.5 (24.8-40.7) Mean: 32.4 (25.1-40.7) Mean: 31.6 (24.0-39.2) Mean: 31.6 (26.9-38.7) Mean: 31.0 (24.6-38.4) Pediatric Reference ranges were obtained from a study by Jomar Rojas et al. prepared from 1437 samples obtained at 7 different centers using the same coagulation reagent and instrumentation as [facility]. Currently there are no coagulation studies available worldwide for children to 14 days, and no normal ranges. Heparin therapeutic range (represented by Anti-Factor Xa activity of 0.2 - 0.4 U/mL) corresponds to PTT of 56.6 - 109.0 sec. Performed By: #### 1 [id number], 1397636, 39243428, 87279148, 0393843 ####[facility] [address] [place] [address] INR Coag (PPP) [Relative time] 1.11 {INR} Invalid Interpretation Code [facility] Comment on above: Result Comment: INR results are specifically intended to assess patients stabilized on long-term Anticoagulation therapy suggested INR?s ?Less Intensive Anticoagulation? 2.0 ? 3.0Conventional Range 3.0 ? 4.5 Performed By: #### 1 [id number], 2249329, 13126496, 57649551, 0169264 ####[facility] [address] [place] [address] PT Coag (PPP) [Time] 12.5 second(s) Normal 9.4-12.5 [facility] Comment on above: Result Comment: 15 d ays - 4 weeks 1 - 5 months 6 -11 months 1-5 years 6-10 years 11 -17 years Mean: 11.2 (9.5-12.6) Mean: 11.0 (9.7-12.8) Mean: 11.0 (9.8-13.0) Mean: 11.3 (9.9-13.4) Mean: 11.7 (10.0-14.6) Mean: 11.8 (10.0 - 14.1) Pediatric Reference ranges were obtained from a study by Jomar Rojas et al. prepared from 1437 samples obtained at 7 different centers using the same coagulation reagent and instrumentation as [facility]. Currently there are no coagulation studies available worldwide for children to 14 days, and no normal ranges. Performed By: #### 1 [id number], 9556592, 25413088, 77674269, 7168257 ####[facility] [address] [place] [address] Rapid COVID Antigen ([facility]on 06-29-2023 Rapid COV Int NEG Ctl Pass Normal [facility] Comment on above: Performed By: #### 1 [id number], [id number] ####[facility] [address] [place] [address] Rapid COV Int POS Ctl Pass Normal [facility] Comment on above: Performed By: #### 1 [id number], [id number] ####[facility] [address] [place] [address] SARS-CoV+SARS-CoV-2 (COVID-19) Ag IA.rapid Ql (Resp) Not detected Normal Not Detected [facility] Comment on above: Result Comment: The Duel? System for Rapid Detection of SARS-CoV-2 is a chromatographic digital immunoassay intended for the direct and qualitative detection of SARS-CoV-2 nucleocapsid antigens in nasal swabs from individuals who are suspected of COVID-19 by their healthcare provider within the first five days of the onset of symptoms. Negative results should be treated as presumptive, do not rule out SARS-CoV-2 infection and should not be used as the sole basis for treatment or patient management decisions, including infection control decisions. Negative results should be considered in the context of a patient?s recent exposures, history and the presence of clinical signs and symptoms consistent with COVID-19, and confirmed with a molecular assay, if necessary, for patient management. For in vitro diagnostic use. In the [place], only for use under an Emergency Use Authorization. In the [place], this test has not been FDA cleared or approved; this test has been authorized by FDA under an EUA for use by authorized laboratories; use by laboratories certified under the CLIA, 42 U.S.C. ?263a, that meet requirements to perform moderate, high, or waived complexity tests and at the Point of Care (POC), i.e., in patient care settings operating under a CLIA Certificate of Waiver, Certificate of Compliance, or Certificate of Accreditation.This test has been authorized only for the detection of proteins from SARS-CoV-2, not for any other viruses or pathogens; and, in the [place], this test is only authorized for the duration of the declaration that circumstances exist justifying the authorization of emergency use of in vitro diagnostics for detection and/or diagnosis of the virus that causes COVID-19 under Section 564(b)(1) of the Act, 21 U.S.C. ? 360bbb-3(b)(1), unless the authorization is terminated or revoked sooner. Performed By: #### 1 [id number], [id number] ####[facility] [address] [place] [address] Troponin 0 Hr.on 06-29-2023 Troponin I.cardiac [Mass/Vol] ng/mL Low 10.10-27.10 [facility] Comment on above: Result Comment: The 95% CI (Confidence Interval) PPV (Positive Predictive Value) for myocardial infarction in females is 38 pg/mL, in males 51 pg/mL. The results should be used in conjunction with clinical conditions of myocardial infarction.(Access High Sensitivity Troponin I Instructions For Use, Tegan Mahindra REVA, November 2017) Performed By: #### 1 [id number], 0915786, 09049859, [id number], 6407412 ####[facility] [address] [place] [address] XR Chest Single Viewon 06-28 XR Chest Single View Normal [facility] eGFRon 06-29-2023 eGFR 89 mL/min/1.73 m2 Normal >=59 [facility] Comment on above: Order Comment: Order added by Discern Expert. Performed By: #### 1 [id number], 6883776, 11317806, 69845175, 6538247 ####[facility] [place] [address] Nonvisit Note - PTon 024 Nonvisit Note - PT Pt. did not show for PT appointment on 06/18/23. Red slip submitted per attendance policy. Normal [facility] Nonvisit Note - PTon 024 Nonvisit Note - PT Pt did not show up for her outpatient PT appt this date; attempted to call pt to remind her of her next appt and the department Attendance Policy re: no shows, but her voicemail box was full and was unable to leave a message. Normal [facility] ED Note-Physicianon 06-16-19 ED Note-Physician [facility] Comment on above: Result Comment: Elec tronically Signed By: Daxa Donis PA-C\.br\Date and Time Signed: 06/14/23 09:16 EST\.br\Electronically Co-Signed By: Justo Arias DO\.br\Date and Time Co-Signed: 06/16/23 07:06 EST Consent for Treatmenton 05-29 Consent for Treatment [id number]#1 .00TIFF Normal [facility] Discharge Instructionson Discharge Instructions [id number]#1 .00TIFF Normal [facility] ED Clinical Summaryon 2023 ED Clinical Summary Normal [facility]avo [facility] ED Patient Education Noteon 06-14-2023 ED Patient Education Note Normal [facility] ED Patient Summaryon 024 ED Patient Summary Normal [facility] Nonvisit Note - PTon 024 Nonvisit Note - PT Patient has strep throat. Normal [facility] Nonvisit Note - PTon 024 Nonvisit Note - PT Patient called the front services agent cancelling today's PT session, no reason given. Normal [facility] B hCG Qualon 05-31-2023 Beta HCG ( test) Ql Negative Normal [facility] Comment on above: Performed By: #### 1 [id number], 32544167, 3615826, 4324905, 5540020, 9028502 ####[facility] [address] [place] [address] BMPon 05-31-2023 Anion gap [Moles/Vol] 13 mmol/L Normal 6-16 [facility] Comment on above: Performed By: #### 1 8877623, 65729251, 8125373, 5300984, 8445189, 8377744 ####[facility] [address] [place] [address] BUN/Creat Ratio 12 No Units Normal 10-20 [facility] Comment on above: Performed By: #### 1 0426884, 65993048, 2655100, 3204824, 1544086, 1299133 ####[facility] [address] [place] [address] Calcium [Mass/Vol] 9.2 mg/dL Normal 8.9-11.1 [facility] Comment on above: Performed By: #### 1 0032984, 45856078, 2796118, 9148672, 3853609, 8215439 ####[facility] [address] [place] [address] Chloride [Moles/Vol] 103 mmol/L Normal 101-111 [facility] Comment on above: Performed By: #### 1 8214679, 88230363, 7487667, 3542421, 9029412, 8537744 ####[facility] [address] [place] [address] CO2 [Moles/Vol] 26 mmol/L Normal 21-31 [facility] Comment on above: Performed By: #### 1 3459802, 70779042, 1153701, 1917273, 5023508, 2546610 ####[facility] [address] [place] [address] Creatinine [Mass/Vol] 0.8 mg/dL Normal 0.5-1.3 [facility] Comment on above: Performed By: #### 1 2419370, 87419155, 4539807, 7544319, 8654405, 1991193 ####[facility] [address] [place] [address] Glucose [Mass/Vol] 104 mg/dL Normal 55-199 [facility] Comment on above: Performed By: #### 1 7320376, 95830201, 3370634, 2357212, 2451941, 7792148 ####[facility] [address] [place] [address] Potassium [Moles/Vol] 3.8 mmol/L Normal 3.5-5.3 [facility] Comment on above: Performed By: #### 1 2027816, 38199101, 1212210, 2717154, 9344580, 6730183 ####[facility] [address] [place] [address] Sodium [Moles/Vol] 138 mmol/L Normal 135-145 [facility] Comment on above: Performed By: #### 1 0183227, 66067563, 0854327, 5185680, 4414972, 7533305 ####[facility] [address] [place] [address] Urea nitrogen [Mass/Vol] 10 mg/dL Normal 5-21 [facility] Comment on above: Performed By: #### 1 0679973, 63663636, 2962209, 2858322, 5501335, 8125782 ####[address] [address] CBC w/ Auto Diffon 4 Basophil Absolute 0.0 E9/L Normal 0.0-0.2 [facility] Comment on above: Performed By: #### 1 4998290, 87033136, 4781357, 6718208, 5649815, 4401753 ####[address] [address] Basophils/100 WBC (Bld) 0.5 % Normal 0.0-2.0 [facility] Comment on above: Performed By: #### 1 8123705, 77249017, 6711772, 2427375, 5164818, 3253725 ####[address] [address] Eos Absolute 0.1 E9/L Normal 0.0-0.5 [facility] Comment on above: Performed By: #### 1 4084731, 42568323, 1882319, 9075273, 4332207, 7984166 ####[address] [address] Eosinophils/100 WBC (Bld) 0.7 % Normal 0.0-8.0 [facility] Comment on above: Performed By: #### 1 0214234, 78876840, 5235023, 0784286, 1347262, 9437212 ####[address] [address] Erythrocyte distribution width (RBC) [Ratio] 13.2 % Normal 10.9-14.2 [facility] Comment on above: Performed By: #### 1 9245796, 74671015, 1418693, 3337710, 2990577, 5969824 ####[address] [address] Hematocrit (Bld) [Volume fraction] 42.0 % Normal 34.0-46.0 [facility] Comment on above: Performed By: #### 1 6132790, 36944373, 3786567, 7352289, 5338098, 0062188 ####[address] [address] Hemoglobin (Bld) [Mass/Vol] 13.8 g/dL Normal 12.0-16.0 [facility] Comment on above: Performed By: #### 1 4691173, 50681633, 1063218, 1840496, 5671851, 7584035 ####[address] [address] Lymph Absolute 1.7 E9/L Normal 1.0-4.0 [facility] Comment on above: Performed By: #### 1 7329146, 17779894, 5871541, 5596589, 2694774, 7243298 ####[address] [address] Lymphocytes/100 WBC (Bld) 16.6 % Normal 14.0-50.0 [facility] Comment on above: Performed By: #### 1 0235079, 20913630, 8746545, 6082579, 5378485, 7260167 ####[address] [address] MCH (RBC) [Entitic mass] 30.2 pg Normal 27.0-34.0 [facility] Comment on above: Performed By: #### 1 0277089, 15572007, 2225381, 3230707, 0481730, 0869768 ####[address] [address] MCHC (RBC) [Mass/Vol] 33.2 g/dL Normal 31.4-36.0 [facility] Comment on above: Performed By: #### 1 1458463, 04916196, 0694871, 7122225, 9036703, 3734120 ####[facility] [address] [place] [address] MCV (RBC) [Entitic vol] 91.1 fL Normal 80.0-100.0 [facility] Comment on above: Performed By: #### 1 4648776, 76327768, 8388359, 1981806, 7809617, 5177950 ####[facility] [address] [place] [address] [place] Absolute 0.4 E9/L Normal 0.2-1.0 [facility] Comment on above: Performed By: #### 1 6426240, 81746319, 8072689, 3190399, 3748573, 5628728 ####[address] [address] Monocytes/100 WBC (Bld) 3.5 % Low 4.0-14.0 [facility] Comment on above: Performed By: #### 1 0186338, 04989697, 5095514, 6340365, 4109413, 1038799 ####[facility] [address] [place] [address] Neutro Absolute 8.2 E9/L High 2.0-7.5 [facility] Comment on above: Performed By: #### 1 0814797, 14291004, 6849312, 8890343, 5533197, 9965938 ####[facility] [address] [place] [address] Neutro Auto 78.7 % High 36.0-75.0 [facility] Comment on above: Performed By: #### 1 7599916, 98392421, 2496544, 9053272, 9486523, 9391625 ####[facility] [address] [place] [address] Platelet 423.0 E9/L Normal 150.0-500.0 [facility] Comment on above: Performed By: #### 1 6460104, 89609052, 4844679, 0348165, 6239308, 4501762 ####[facility] [address] [place] [address] Platelet mean volume (Bld) [Entitic vol] 6.9 fL Normal 6.4-10.8 [facility] Comment on above: Performed By: #### 1 9114193, 69584417, 2081096, 0006083, 2826278, 3453707 ####[facility] [address] [place] [address] RBC 4.6 E12/L Normal 4.3-5.9 [facility] Comment on above: Performed By: #### 1 3579829, 32729416, 2670613, 0608272, 2933965, 2705781 ####[facility] [address] [place] [address] WBC 10.4 E9/L Normal 4.0-11.0 [facility] Comment on above: Performed By: #### 1 9409025, 06133906, 4109273, 9039097, 2658233, 2258805 ####[facility] [address] [place] [address] CHEMISTRYOrdered By: SYSTEM SYSTEM on 05-31-2023 Albumin [Mass/Vol] 4.5 g/dL Normal 3.3 - 5.0 gm/dL Rem[facility] Chem Albumin/Globulin [Mass ratio] 1.5 {ratio} Normal 1.1 - 2.2 [facility] Alk Phos 112 [iU]/d High 21 - 98 Int._Unit/L Rem[facility] Chem ALT 13 [iU]/d Normal 6 - 46 Int._Unit/L [facility] Chem Anion gap [Moles/Vol] 13 mmol/L Normal 6 - 16 mEq/L R emisol Chem AST 15 [iU]/d Normal 5 - 43 Int._Unit/L [facility] Chem Bili Direct 0.2 mg/dL Normal 0.0 - 0.4 mg/dL [facility] Bili Indirect 0.9 mg/dL Normal 0.1 - 0.9 mg/dL [facility] Chem Bili Total 1.1 mg/dL Normal 0.0 - 1.1 mg/dL [facility] Chem Calcium [Mass/Vol] 9.2 mg/dL Normal 8.9 - 11. 1 mg/dL [facility] Chloride [Moles/Vol] 103 mmol/L Normal 101 - 1 11 mmol/L [facility] CO2 [Moles/Vol] 26 mmol/L Normal 21 - 31 mmol/L [facility] Creatinine [Mass/Vol] 0.8 mg/dL Normal 0.5 - 1.3 mg/dL [facility] eGFR 102 mL/min/1.73 m2 Normal >=59mL/mi n/1 .73 m2 [facility] Globulin (S) [Mass/Vol] 3.0 g/dL Normal 1.4 - 4.0 gm/dL [facility] Glucose [Mass/Vol] 104 mg/dL Normal 55 - 199 mg/dL [facility] Lipase Lvl 18 unit/L Normal 13 - 58 unit/L [facility] Potassium [Moles/Vol] 3.8 mmol/L Normal 3.5 - 5.3 mmol/L [facility] Chem Protein [Mass/Vol] 7.5 g/dL Normal 6.0 - 7.8 gm/dL [facility] Sodium [Moles/Vol] 138 mmol/L Normal 135 - 145 mmol/L [facility] Urea nitrogen [Mass/Vol] 10 mg/dL Normal 5 - 21 mg/dL [facility] Urea nitrogen/Creatinine [Mass ratio] 12 mg/mg Normal 10 - [address] Abdomen/Pelvis w/ Contras ton 05-31-2023 CT Abdomen/Pelvis w/ Contrast Normal [facility] Consent for Treatmenton Consent for Treatment [id number]#1 .00TIFF Normal [facility] Discharge Instructionson Discharge Instructions [id number]# 1.00TIFF Normal [facility] ED Clinical Summaryon 2023 ED Clinical Summary Normal Jose christina [facility] ED Note-Nursingon 05-31-2023 ED Note-Nursing Patient provided wit h po fluids. Normal [facility] ED Note-Nursing Patient states no change in pain at this time, post pain medication. Normal [facility] ED Note-Physicianon 05-31-19 ED Note-Physician Normal [facility] Comment on above: Result Comment: Elec tronically Signed By: Sy Pickard PA-C\.br\Date and Time Signed: 05/31/23 11:06 EST\.br\Electronically Co-Signed By: Mary Jane Palm M.D.\.br\Date and Time Co-Signed: 05/31/23 17:55 EST ED Patient Education Noteon 05-31-2023 ED Patient Education Note Normal [facility] ED Patient Summaryon 024 ED Patient Summary Normal [facility] HEMATOLOGYOrdered By: SYSTEM SYSTEM on 05-31-2023 Basophil Absolute 0.0 E9/L Normal 0.0 - 0.2 E9/L Remisol Heme Basophils/100 WBC (Bld) 0.5 % Normal 0.0 - 2.0 % Rem[facility] Heme Eos Absolute 0.1 E9/L Normal 0.0 - 0.5 E9/L Rem[facility] Heme Eosinophils/100 WBC (Bld) 0.7 % Normal 0.0 - 8.0 % Remisol Heme Erythrocyte distribution width (RBC) [Ratio] 13.2 % Normal 10.9 - 14.2 % Rem[facility] Heme Hematocrit (Bld) [Volume fraction] 42.0 % Normal 34.0 - 46.0 % Rem[facility] Heme Hemoglobin (Bld) [Mass/Vol] 13.8 g/dL Normal 12.0 - 16.0 gm/dL Rem[facility] Heme Lymph Absolute 1.7 E9/L Normal 1.0 - 4.0 E9/L Rem[facility] Heme Lymphocytes/100 WBC (Bld) 16.6 % Normal 14.0 - 50.0 % Remisol Heme MCH (RBC) [Entitic mass] 30.2 pg Normal 27.0 - 34.0 pg Remisol Heme MCHC (RBC) [Mass/Vol] 33.2 g/dL Normal 31.4 - 36.0 gm/dL Remisol Heme MCV (RBC) [Entitic vol] 91.1 fL Normal 80.0 - 100.0 fL Remisol Heme [place] Absolute 0.4 E9/L Normal 0.2 - 1.0 E9/L Remisol Heme Monocytes/100 WBC (Bld) 3.5 % Low 4.0 - 14.0 % Rem[facility] Heme Neutro Absolute 8.2 E9/L High 2.0 - 7.5 E9/L [facility] Heme Neutro Auto 78.7 % High 36.0 - 75.0 % [facility] Heme Platelet 423.0 E9/L Normal 150.0 - 500.0 E9/L Rem[facility] Heme Platelet mean volume (Bld) [Entitic vol] 6.9 fL Normal 6.4 - 10.8 fL Remisol Heme RBC 4.6 E12/L Normal 4.3 - 5.9 E12/L [facility] Heme WBC 10.4 E9/L Normal 4.0 - 11.0 E9/L Rem[facility] Heme Hep Func Panelon 05-31-2023 Albumin [Mass/Vol] 4.5 g/dL Normal 3.3-5.0 [facility] Comment on above: Performed By: #### 1 8786672, 88986560, 1427929, 2882080, 8309773, 4915063 ####[facility] [address] [place] [address] Albumin/Globulin [Mass ratio] 1.5 {ratio} Normal 1.1-2.2 [facility] Comment on above: Performed By: #### 1 5616995, 25080119, 4929866, 0267596, 9876948, 5962449 ####[facility] [address] [place] [address] Alk Phos 112 Int._Unit/L High 21-98 [facility] Comment on above: Performed By: #### 1 8551393, 83454017, 2474129, 3661158, 3243329, 4893199 ####[facility] [address] [place] [address] ALT 13 Int._Unit/L Normal 6-46 [facility] Comment on above: Performed By: #### 1 8122872, 09907491, 0611559, 1743890, 4287699, 0752282 ####[facility] [address] [place] [address] AST 15 Int._Unit/L Normal 5-43 [facility] Comment on above: Performed By: #### 1 9354186, 95023285, 9399289, 6739648, 7726145, 8765099 ####[address] [address] Bili Direct 0.2 mg/dL Normal 0.0-0.4 [facility] Comment on above: Performed By: #### 1 6026216, 10435493, 6813666, 8604168, 7728775, 1683016 ####[address] [address] Bili Indirect 0.9 mg/dL Normal 0.1-0.9 [facility] Comment on above: Performed By: #### 1 7655550, 15805537, 9046473, 7586797, 5131274, 5538943 ####[address] [address] Bili Total 1.1 mg/dL Normal 0.0-1.1 [facility] Comment on above: Performed By: #### 1 0039331, 12206507, 1974801, 3216645, 3215967, 2476080 ####[address] [address] Globulin (S) [Mass/Vol] 3.0 g/dL Normal 1.4-4.0 [facility] Comment on above: Performed By: #### 1 7120660, 96580879, 4238233, 4750361, 0374167, 6260002 ####[address] [place] [address] Protein [Mass/Vol] 7.5 g/dL Normal 6.0-7.8 [facility] Comment on above: Performed By: #### 1 2729289, 63070835, 8949029, 8382172, 6343199, 2512006 ####[address] [address] Lipase Levelon 05-31-2023 Lipase Lvl 18 unit/L Normal 13-58 [facility] Comment on above: Performed By: #### 1 8268746, 48719672, 1130120, 6366145, 0007467, 6207934 ####[facility] [address] [place] [address] Prescriptions/Work Noteson 0 05-31-2023 Prescriptions/Work Notes [id number]# 1.00TIFF Normal [facility] SEROLOGYOrdered By: Joselin olmos on 05-31-2023 Beta HCG ( test) Ql Negative (05/31/23 8:38 AM) Normal [facility] Man Sero UA With Cult Reflexon 2023 Bacteria LM Ql (Urine sed) TRACE Normal Trace [facility] Comment on above: Performed By: #### 1 4179193 ####[facility] [address] [place] [address] Bilirubin Ql (U) Negative Normal Negative [facility] Comment on above: Performed By: #### 1 5869440 ####[facility] [address] [place] [address] Clarity (U) CLEAR Normal Clear [facility] Comment on above: Performed By: #### 1 7399557 ####[facility] [address] [place] [address] Color (U) STRAW Invalid Interpretation Code [facility] Comment on above: Performed By: #### 1 3068209 ####[facility] [address] [place] [address] Epithelial cells.squamous LM.HPF (Urine sed) [#/Area] 0-2 Normal 0-2 [facility] Comment on above: Performed By: #### 1 7377165 ####[facility] [address] [place] [address] Glucose Test strip (U) [Mass/Vol] Negative Normal Negative [facility] Comment on above: Performed By: #### 1 5773756 ####[address] [address] Hemoglobin Ql (U) Negative Normal Negative [facility] Comment on above: Performed By: #### 1 1682422 ####[address] [address] Ketones (U) [Mass/Vol] Negative Normal Negative [facility] Comment on above: Performed By: #### 1 6625470 ####[address] [address] [place].plasma/[place]. RBC (Bld) [Mass ratio] 0-3 Normal 0-3 [facility] Comment on above: Performed By: #### 1 8482445 ####[address] [address] Nitrite Ql (U) Negative Normal Negative [facility] Comment on above: Performed By: #### 1 6790153 ####[address] [address] pH (U) 6.5 [pH] Invalid Interpretation Code 5.0-9.0 [facility] Comment on above: Performed By: #### 1 1295820 ####[address] [address] Protein (U) [Mass/Vol] Negative Normal Negative [facility] Comment on above: Performed By: #### 1 4245735 ####[address] [address] Specific gravity (U) [Rel density] <=1.005 Invalid Interpretation Code 1.005-1.030 [facility] Comment on above: Performed By: #### 1 1014143 ####[address] [address] Type of Urine collection method Clean Catch Normal [facility] Comment on above: Performed By: #### 1 8371290 ####[address] [address] Urobilinogen Qn (U) 0.2 {Jane'U}/dL Normal 0.0-1.0 [facility] Comment on above: Performed By: #### 1 0724921 ####[facility] [address] [place] [address] WBC Auto Ql (U) Negative Normal Negative [facility] Comment on above: Performed By: #### 1 6651221 ####[facility] [address] [place] [address] WBC LM.HPF (Urine sed) [#/Area] 0-5 Normal 0-5 [facility] Comment on above: Performed By: #### 1 3481177 ####[facility] [address] [place] [address] URINALYSISOrdered By: Joselin ramirez on 05-31-2023 Bacteria LM Ql (Urine sed) Trace /HPF Normal Trace/HPF [facility] UA Auto SS Bilirubin Ql (U) Negative (05/31/23 8:56 AM) Normal Negative [facility] UA Auto SS Clarity (U) Clear (05/31/23 8:56 AM) Normal Clear [facility] UA Auto SS Color (U) STRAW Invalid Interpretation Code [facility] UA Auto SS Epithelial cells.squamous LM.HPF (Urine sed) [#/Area] 0-2 /HPF Normal 0-2/HPF [facility] UA Aut o SS Glucose Test strip (U) [Mass/Vol] Negative (05/31/23 8:56 AM) Normal Negative [facility] UA Auto SS Hemoglobin Ql (U) Negative (05/31/23 8:56 AM) Normal Negative [facility] UA Auto SS Ketones (U) [Mass/Vol] Negative (05/31/23 8:56 AM) Normal Negative [facility] UA Auto SS [place].plasma/[place]. RBC (Bld) [Mass ratio] 0-3 /HPF Normal 0-3/HPF [facility] UA A uto SS Nitrite Ql (U) Negative (05/31/23 8:56 AM) Normal Negative [facility] UA Auto SS pH (U) 6.5 *NA* (05/31/23 8:56 AM) Invalid Interpretation Code 5.0 - 9.0 [facility] UA Auto SS Protein (U) [Mass/Vol] Negative (05/31/23 8:56 AM) Normal Negative [facility] UA Auto SS Specific gravity (U) [Rel density] <=1.005 *NA* (05/31/23 8:56 AM) Invalid Interpretation Code 1.005 - 1.030 [facility] UA Auto SS UA Spec Desc Clean Catch (05/31/23 8:56 AM) Normal [facility] UA Auto SS Urobilinogen Qn (U) 0.7455740 {Jane'U}/dL Normal 0.0 - 1.0 EU/dL [facility] UA Auto SS WBC Auto Ql (U) Negative (05/31/23 8:56 AM) Normal Negative [facility] UA Auto SS WBC LM.HPF (Urine sed) [#/Area] 0-5 /HPF Normal 0-5/HPF [facility] UA Auto SS eGFRon 05-31-2023 eGFR 102 mL/min/1.73 m2 Normal >=59 [facility] Comment on above: Order Comment: Order added by Discern Expert. Performed By: #### 1 1519130, 58716724, 7172581, 7097852, 5677848, 4536948 ####[facility] [address] [place] [address] PT - Orderson 05-30-2023 PT - Orders [id number]# 1.00TIFF [facility] Nonvisit Note - PTon 024 Nonvisit Note - PT Patient is not feeling well and requested to cancel. [facility] Consent for Treatmenton 04-30 Consent for Treatment [id number]#1 .00TIFF [facility] Consent for Treatment [id number]#1 .00TIFF [facility] Discharge Instructionson Discharge Instructions [id number]#1 .00TIFF [facility] Discharge Instructions [id number]#1 .00TIFF [facility] [facility] Clinical Summaryon 2023 ED Clinical Summary Normal [facility] ED Note-Physicianon 05-28-19 ED Note-Physician [facility] Comment on above: Result Comment: Elec tronically Signed By: Ulisses Mckinney PA-C.br\Date and Time Signed: 05/28/23 10:54 EST\.br\Electronically Co-Signed By: Darren Lomax DO.br\Date and Time Co-Signed: 05/28/23 19:37 EST ED Patient Education Noteon 05-28-2023 ED Patient Education Note Normal [facility] ED Patient Summaryon 024 ED Patient Summary [facility] PT - Assessmentson PT - Assessments [id number]#1 .00TIFF [facility] PT - Consentson 05-28-2023 PT - Consents [id number]#1 .00TIFF [facility] PT - Home Exercise Programon 05-28-2023 PT - Home Exercise Program [id number]#1 .00TIFF [facility] PT - Orderson 05-28-2023 PT - Orders [id number]# 1.00TIFF [facility] Consent for Treatmenton 04-29 Consent for Treatment [id number]#1 .00TIFF [facility] Discharge Instructionson Discharge Instructions [id number]# 1.00TIFF [facility] ED Clinical Summaryon 2023 ED Clinical Summary Normal [facility] ED Note-Physicianon 05-22-19 ED Note-Physician [facility] Comment on above: Result Comment: Elec tronically Signed By: Mary Jane Palm M.D..br\Date and Time Signed: 05/22/23 07:35 EST ED Patient Education Noteon 05-22-2023 ED Patient Education Note Normal [facility] ED Patient Summaryon 024 ED Patient Summary Normal [facility] XR Hand 3+ Views Righton XR Hand 3+ Views Right Normal [facility] Consultation Noteon 05-16-19 Consultation Note [id number]#1 .00TIFF Normal [facility] Ambulatory Visit Summaryon 0 05-11-2023 Ambulatory Visit Summary Normal [facility] Family Medicine Office/Clini c Noteon 05-11-2023 Family Medicine Office/Clinic Note Normal [facility] Comment on above: Result Comment: Elec tronically Signed By: Geovany Ramirez DO\tao\Date and Time Signed: 05/11/23 12:50 EST Nonvisit Note - PTon Nonvisit Note - PT Chart reviewed with eval prepped for scheduled eval. KK Normal [facility] XR Spine Lumbosacral Minimum 4 Viewson 05-07-2023 XR Spine Lumbosacral Minimum 4 Views Normal [facility] Consent for Treatmenton Consent for Treatment [id number]#1 .00TIFF [facility] Physician Orderon 05-06-2023 Physician Order [id number]# 1.00TIFF Normal [facility] Physician Order [id number]# 1.00TIFF Normal [facility] Ambulatory Visit Summaryon 0 05-03-2023 Ambulatory Visit Summary Normal [facility] Family Medicine Office/Clini c Noteon 05-03-2023 Family Medicine Office/Clinic Note Normal [facility] Comment on above: Result Comment: Elec tronically Signed By: Isaac Stephen PA-C\Date and Time Signed: 05/03/23 13:04 EST ED Note-Physicianon 04-26-20 ED Note-Physician Normal [facility] Comment on above: Result Comment: Elec tronically Signed By: Guille Will MD\.br\Date and Time Signed: 04/26/23 00:41 EST Consent for Treatmenton 03-28 Consent for Treatment [id number]#1 .00TIFF Normal [facility] Discharge Instructionson Discharge Instructions [id number]#1 .00TIFF Normal [facility] ED Clinical Summaryon 2022 ED Clinical Summary Normal [facility] ED Note-Physicianon 04-15-20 ED Note-Physician Normal [facility] Comment on above: Result Comment: Elec tronically Signed By: Savanna Rivero PA-C\.br\Date and Time Signed: 04/15/23 12:21 EST\.br\Electronically Co-Signed By: Justo Arias DO\.br\Date and Time Co-Signed: 04/15/23 18:36 EST ED Patient Education Noteon 04-15-2023 ED Patient Education Note Normal [facility] ED Patient Summaryon 023 ED Patient Summary Normal [facility] Auto Diffon 04-11-2023 Basophils/100 WBC (Bld) 0.3 % Normal 0.0-2.0 [facility] Comment on above: Order Comment: Order Added by Discern Expert. Performed By: #### 2 346500, 2083756, 4754517, 0065210, [id number] ####[facility] [address] [place] [address] Basophils/Leukocytes Auto (Bld) [Pure # fraction] 0.0 E9/L Normal 0.0-0.2 [facility] Comment on above: Order Comment: Order Added by Discern Expert. Performed By: #### 2 551033, 9437982, 3112950, 6617677, 66501919 ####[facility] [address] [place] [address] Eosinophils/100 WBC (Bld) 0.1 % Normal 0.0-8.0 [facility] Comment on above: Order Comment: Order Added by Discern Expert. Performed By: #### 2 546515, 5016973, 1391731, 0415252, 65519793 ####[facility] [address] [place] [address] Eosinophils/Leukocytes Auto (Bld) [Pure # fraction] 0.0 E9/L Normal 0.0-0.5 [facility] Comment on above: Order Comment: Order Added by Discern Expert. Performed By: #### 2 379033, 9471680, 7775855, 1246121, 44428916 ####[address] [address] Lymphocytes/100 WBC (Bld) 13.0 % Low 14.0-50.0 [facility] Comment on above: Order Comment: Order Added by Andria Expert. Performed By: #### 2 613268, 8968854, 8618788, 7867611, 32555290 ####[address] [address] Lymphocytes/Leukocytes Auto (Bld) [Pure # fraction] 1.6 E9/L Normal 1.0-4.0 [facility] Comment on above: Order Comment: Order Added by Andria Expert. Performed By: #### 2 854712, 3094026, 9212142, 7467139, 12800113 ####[address] [address] Monocytes/100 WBC (Bld) 2.9 % Low 4.0-14.0 [facility] Comment on above: Order Comment: Order Added by Andria Expert. Performed By: #### 2 006698, 8136956, 7112208, 1493547, 31403225 ####[address] [address] Monocytes/Leukocytes Auto (Bld) [Pure # fraction] 0.4 E9/L Normal 0.2-1.0 [facility] Comment on above: Order Comment: Order Added by Discern Expert. Performed By: #### 2 765024, 7456773, 0561778, 6857377, 54158657 ####[facility] [address] [place] [address] Neutrophils/100 WBC (Bld) 83.7 % High 36.0-75.0 [facility] Comment on above: Order Comment: Order Added by Discern Expert. Performed By: #### 2 345855, 1081649, 9352232, 9212340, 10188849 ####[facility] [address] [place] [address] Neutrophils/Leukocytes Auto (Bld) [Pure # fraction] 10.0 E9/L High 2.0-7.5 [facility] Comment on above: Order Comment: Order Added by Discern Expert. Performed By: #### 2 701664, 5796642, 7895502, 9997326, 93815570 ####[address] [place] [address] BMPon 04-11-2023 Anion gap [Moles/Vol] 13 mmol/L Normal 6-16 [facility] Comment on above: Performed By: #### 2 704987, 1436880, 3682661, 3361752, 99262549 ####[address] [place] [address] BUN/Creat Ratio 15 No Units Normal 10-20 [facility] Comment on above: Performed By: #### 2 038051, 1245503, 0041425, 1850648, 11714864 ####[facility] [address] [place] [address] Calcium [Mass/Vol] 9.8 mg/dL Normal 8.9-11.1 [facility] Comment on above: Performed By: #### 2 750171, 6196990, 2161655, 6446640, 26268699 ####[facility] [address] [place] [address] Chloride [Moles/Vol] 103 mmol/L Normal 101-111 [facility] Comment on above: Performed By: #### 2 912393, 0945385, 8347065, 7364730, 64939158 ####[facility] [address] [place] [address] CO2 [Moles/Vol] 30 mmol/L Normal 21-31 [facility] Comment on above: Performed By: #### 2 098055, 4151362, 5883421, 0533875, 22182225 ####[facility] [address] [place] [address] Creatinine [Mass/Vol] 0.8 mg/dL Normal 0.5-1.3 [facility] Comment on above: Performed By: #### 2 700218, 9697711, 5637207, 2143328, 01779188 ####[facility] [address] [place] [address] Glucose [Mass/Vol] 110 mg/dL Normal 55-199 [facility] Comment on above: Performed By: #### 2 978329, 2007928, 7606483, 6653983, 88715349 ####[facility] [address] [place] [address] Potassium [Moles/Vol] 3.7 mmol/L Normal 3.5-5.3 [facility] Comment on above: Performed By: #### 2 369882, 4046713, 7614426, 9848724, 47823450 ####[facility] [address] [place] [address] Sodium [Moles/Vol] 142 mmol/L Normal 135-145 [facility] Comment on above: Performed By: #### 2 990205, 9460352, 3109302, 2823715, 52290122 ####[facility] [address] [place] [address] Urea nitrogen [Mass/Vol] 12 mg/dL Normal 5-21 [facility] Comment on above: Performed By: #### 2 315969, 0846924, 7930614, 3527568, 56765330 ####[facility] [address] [place] [address] CBC w/ Auto Diffon 3 Erythrocyte distribution width (RBC) [Ratio] 13.1 % Normal 10.9-14.2 [facility] Comment on above: Performed By: #### 2 156985, 0814139, 0039924, 1793942, 10233977 ####[facility] [address] [place] [address] Hematocrit (Bld) [Volume fraction] 43.4 % Normal 34.0-46.0 [facility] Comment on above: Performed By: #### 2 192857, 5920495, 2535977, 7279333, 30614294 ####[address] [place] [address] Hemoglobin (Bld) [Mass/Vol] 14.1 g/dL Normal 12.0-16.0 [facility] Comment on above: Performed By: #### 2 967927, 8263202, 7259659, 2492255, 62659793 ####[address] [address] MCH (RBC) [Entitic mass] 29.2 pg Normal 27.0-34.0 [facility] Comment on above: Performed By: #### 2 287037, 1040568, 9883624, 7558339, 25993701 ####[address] [address] MCHC (RBC) [Mass/Vol] 32.6 g/dL Normal 31.4-36.0 [facility] Comment on above: Performed By: #### 2 184929, 0640898, 2294258, 9804673, 34219196 ####[address] [place] [address] MCV (RBC) [Entitic vol] 89.7 fL Normal 80.0-100.0 [facility] Comment on above: Performed By: #### 2 557341, 3551657, 2150651, 2638150, 60179012 ####[address] [place] [address] Platelet mean volume (Bld) [Entitic vol] 6.9 fL Normal 6.4-10.8 [facility] Comment on above: Performed By: #### 2 814954, 7094715, 7378588, 8459936, 23092490 ####[facility] [address] [place] [address] Platelets (Bld) [#/Vol] 488.0 E9/L Normal 150.0-500.0 [facility] Comment on above: Performed By: #### 2 021952, 6588657, 7510959, 7131976, 64669363 ####[address] [address] RBC (Bld) [#/Vol] 4.8 E12/L Normal 4.3-5.9 [facility] Comment on above: Performed By: #### 2 975453, 8749046, 0347700, 4876804, 53437563 ####[address] [address] WBC corrected for nucl RBC Auto (Bld) [#/Vol] 11.9 E9/L High 4.0-11.0 [facility] Comment on above: Performed By: #### 2 849070, 2459480, 4394332, 0575970, 64853970 ####[address] [address] CRPon 04-11-2023 CRP [Mass/Vol] mg/L Normal <=1.9 [facility] Comment on above: Performed By: #### 2 091731, 1668208, 4277664, 9677351, 53779358 ####[address] [address] [address] Head or Brain w/ + w/o Co ntraston 04-11-2023 CT Head or Brain w/ + w/o Contrast Normal [facility] CT Maxillofacial w/ Contrast on 04-11-2023 CT Maxillofacial w/ Contrast Normal [facility] Consent for Treatmenton 03-28 Consent for Treatment [id number]#1 .00TIFF Normal [facility] Discharge Instructionson Discharge Instructions [id number]#1 .00TIFF Normal [facility] ED Clinical Summaryon 2022 ED Clinical Summary Normal [facility] ED Patient Education Noteon 04-11-2023 ED Patient Education Note Normal [facility] ED Patient Summaryon 023 ED Patient Summary Normal [facility] eGFRon 04-11-2023 GFR/1.73 sq M.predicted among non-blacks MDRD (S/P/Bld) [Vol rate/Area] mL/min/{1.73_m2} Normal >=59 [facility] Comment on above: Order Comment: Order added by Discern Expert. Performed By: #### 2 362955, 0744133, 7680191, 1189496, 02539691 ####[facility] [address] [place] [address] ED Note-Physicianon 04-10-20 ED Note-Physician Normal [facility] Comment on above: Result Comment: Elec tronically Signed By: Ulisses Mckinney PA-C\.br\Date and Time Signed: 03/30/23 18:21 EST\.br\Electronically Co-Signed By: Guille Will MD\.br\Date and Time Co-Signed: 04/10/23 07:40 EST Consent for Treatmenton Consent for Treatment [id number]#1 .00TIFF Normal [facility] Discharge Instructionson Discharge Instructions [id number]#1 .00TIFF Normal [facility] ED Clinical Summaryon 2022 ED Clinical Summary Normal [facility] ED Patient Education Noteon 03-30-2023 ED Patient Education Note Normal [facility] ED Patient Summaryon 023 ED Patient Summary Normal [facility] Family Medicine Office/Clini c Noteon 03-12-2023 Family Medicine Office/Clinic Note Normal [facility] Comment on above: Result Comment: Elec tronically Signed By: Amos Castellon PA-C.br\Date and Time Signed: 03/12/23 09:12 EST Patient Educationon 03-12-20 Patient Education Normal [facility] Ambulatory Visit Summaryon 1 05-11-2022 Ambulatory Visit Summary Normal [facility] Consenton 01-24-2023 Consent [id number]#1 .00CD:127 Normal [facility] Medicine Office/Clini c Noteon 01-24-2023 [facility] Medicine Office/Clinic Note Normal [facility] Comment on above: Result Comment: Elec tronically Signed By: Rojelio Saldana PA-C, V.\.br\Date and Time Signed: 01/24/23 10:02 EDT Patient Educationon 01-25-20 Patient Education Normal [facility] Consenton 01-16-2023 Consent [id number]#1. 00CD:127 Normal [facility] Ambulatory Visit Summaryon 0 01-15-2023 Ambulatory Visit Summary Normal [facility] Medicine Office/Clini c Noteon 01-15-2023 Family Medicine Office/Clinic Note Normal [facility] Comment on above: Result Comment: Elec tronically Signed By: Rojelio Saldana PA-C.br\Date and Time Signed: 01/15/23 14:02 EDT Patient Educationon 01-16-20 Patient Education Normal [facility] Family Medicine Office/Clini c Noteon 11-21-2022 [facility] Medicine Office/Clinic Note Normal [facility] Comment on above: Result Comment: Elec tronically Signed By: Amos Castellon PA-C.br\Date and Time Signed: 11/21/22 09:11 EDT ED Note-Physicianon 11-21-19 ED Note-Physician Normal [facility] Comment on above: Result Comment: Elec tronically Signed By: Ulisses Mckinney PA-C\.br\Date and Time Signed: 11/20/22 00:22 EDT\.br\Electronically Co-Signed By: Vivian Ochoa DO.br\Date and Time Co-Signed: 11/20/22 01:45 EDT XR Hand 3+ Views Righton XR Hand 3+ Views Right Normal [facility] XR Wrist 3+ Views Righton XR Wrist 3+ Views Right Normal [facility] Consent for Treatmenton 10-27 Consent for Treatment [id number]#1 .00CD:127 Normal [facility] Discharge Instructionson Discharge Instructions [id number]# 1.00CD:127 Normal [facility] ED Clinical Summaryon 2022 ED [facility] Education Noteon 11-19-2022 ED Patient Education Note Normal [facility] ED Patient Summaryon 023 ED Patient Summary Normal [facility] C Urineon 11-13-2022 Bacteria identified Cx Nom (U) Normal [facility] Comment on above: Performed By: #### 2 973275 ####[facility] [address] [place] [address] CHEMISTRYOrdered By: SYSTEM SYSTEM on 09-14-2021 Anion gap [Moles/Vol] 14 mmol/L Normal 6 - 16 mEq/L [facility] Calcium [Mass/Vol] 9.3 mg/dL Normal 8.9 - 11. 1 mg/dL [facility] Chloride [Moles/Vol] 103 mmol/L Normal 101 - 1 11 mmol/L [facility] CO2 [Moles/Vol] 24 mmol/L Normal 21 - 31 mmol/L [facility] Creatinine [Mass/Vol] 0.7 mg/dL Normal 0.5 - 1.3 mg/dL [facility] GFR/1.73 sq M.predicted among blacks MDRD (S/P/Bld) [Vol rate/Area] mL/min/1.73 m2 Normal >=59mL/min/1 .73 m2 [facility] [place] S GFR/1.73 sq M.predicted among non-blacks MDRD (S/P/Bld) [Vol rate/Area] mL/min/1.73 m2 Normal >=59mL/min/1 .73 m2 [facility] Chem S Glucose [Mass/Vol] 89 mg/dL Normal 55 - 199 mg/dL [facility] Magnesium [Mass/Vol] 1.9 mg/dL Normal 1.3 - 2 .4 mg/dL [facility] Potassium [Moles/Vol] 3.7 mmol/L Normal 3.5 - 5.3 mmol/L [facility] Sodium [Moles/Vol] 137 mmol/L Normal 135 - 145 mmol/L [facility] Urea nitrogen [Mass/Vol] 11 mg/dL Normal 5 - 21 mg/dL [facility] Urea nitrogen/Creatinine [Mass ratio] 16 mg/mg Normal 10 - 20 [facility] HEMATOLOGYOrdered By: SYSTEM SYSTEM on 09-14-2021 Basophils/100 WBC (Bld) 0.7 % Normal 0.0 - 2.0 % [facility] HemeAutoSS Basophils/Leukocytes Auto (Bld) [Pure # fraction] 0.1 E9/L Normal 0.0 - 0.2 E9/L [facility] HemeAutoSS Eosinophils/100 WBC (Bld) 4.4 % Normal 0.0 - 8.0 % [facility] HemeAutoSS Eosinophils/Leukocytes Auto (Bld) [Pure # fraction] 0.4 E9/L Normal 0.0 - 0.5 E9/L [facility] HemeAutoSS Lymphocytes/100 WBC (Bld) 31.3 % Normal 14.0 - 50.0 % [facility] HemeAutoSS Lymphocytes/Leukocytes Auto (Bld) [Pure # fraction] 3.0 E9/L Normal 1.0 - 4.0 E9/L [facility] HemeAutoSS Monocytes/100 WBC (Bld) 5.9 % Normal 4.0 - 14.0 % [facility] HemeAutoSS Monocytes/Leukocytes Auto (Bld) [Pure # fraction] 0.6 E9/L Normal 0.2 - 1.0 E9/L [facility] HemeAutoSS Neutrophils/100 WBC (Bld) 57.7 % Normal 36.0 - 75.0 % [facility] HemeAutoSS Neutrophils/Leukocytes Auto (Bld) [Pure # fraction] 5.6 E9/L Normal 2.0 - 7.5 E9/L [facility] HemeAutoSS HEMATOLOGYOrdered By: Alejandra Hale on 09-14-2021 Erythrocyte distribution width (RBC) [Ratio] 13.5 % Normal 10.9 - 14.2 % [facility] HemeAutoSS Hematocrit (Bld) [Volume fraction] 36.3 % Normal 34.0 - 46.0 % [facility] HemeAutoSS Hemoglobin (Bld) [Mass/Vol] 13.1 g/dL Normal 12.0 - 16.0 gm/dL [facility] HemeAutoSS MCH (RBC) [Entitic mass] 30.8 pg Normal 27.0 - 34.0 pg [facility] HemeAutoSS MCHC (RBC) [Mass/Vol] 36.1 g/dL High 31.4 - 36.0 gm/dL [facility] HemeAutoSS MCV (RBC) [Entitic vol] 85.5 fL Normal 80.0 - 100.0 fL [facility] HemeAutoSS Platelet mean volume (Bld) [Entitic vol] 6.6 fL Normal 6.4 - 10.8 fL [facility] HemeAutoSS Platelets (Bld) [#/Vol] 387.0 E9/L Normal 150. 0 - 500.0 E9/L [facility] HemeAutoSS RBC (Bld) [#/Vol] 4.2 E12/L Low 4.3 - 5.9 E12/L [facility] HemeAutoSS WBC corrected for nucl RBC Auto (Bld) [#/Vol] 9.7 E9/L Normal 4.0 - 11.0 E9/L [facility]eAuto[facility] Comment on above: Result Comment: Slid e reviewed by ts. URINALYSISOrdered By: Everton Chapa on 09-14-2021 Bilirubin Ql (U) Negative (09/14/21 7:20 PM) Normal Negative [facility] UA Auto SS Clarity (U) Clear (09/14/21 7:20 PM) Normal Clear [facility] UA Auto SS Color (U) Yellow (09/14/21 7:20 PM) Normal Yellow [facility] UA Auto SS Epithelial cells.squamous LM.HPF (Urine sed) [#/Area] 0-2 /HPF Normal 0-2/HPF [facility] UA Aut o SS Glucose Test strip (U) [Mass/Vol] Negative (09/14/21 7:20 PM) Normal Negative [facility] UA Auto SS Hemoglobin Ql (U) Negative (09/14/21 7:20 PM) Normal Negative [facility] UA Auto SS Ketones (U) [Mass/Vol] Negative (09/14/21 7:20 PM) Normal Negative [facility] UA Auto SS [place].plasma/[place]. RBC (Bld) [Mass ratio] 0-3 /HPF Normal 0-3/HPF [facility] A uto SS Nitrite Ql (U) Negative (09/14/21 7:20 PM) Normal Negative [facility] U[facility] Auto SS pH (U) 7.5 *NA* (09/14/21 7:20 PM) Invalid Interpretation Code 5.0 - 9.0 [facility] Auto SS Protein (U) [Mass/Vol] Negative (09/14/21 7:20 PM) Normal Negative [facility]A Auto SS Specific gravity (U) [Rel density] 1.010 *NA* (09/14/21 7:20 PM) Invalid Interpretation Code 1.005 - 1.030 [facility] UA Auto SS UA Spec Desc Clean Catch (09/14/21 7:20 PM) Normal [facility]A Auto SS Urobilinogen Qn (U) 0.5696875 {Jane'U}/dL Normal 0.0 - 1.0 EU/dL [facility] Auto SS WBC Auto Ql (U) Negative (09/14/21 7:20 PM) Normal Negative [facility] Auto SS WBC LM.HPF (Urine sed) [#/Area] 0-5 /HPF Normal 0-5/HPF [facility] Auto SS Reference Laboratory Testing Ordered By: Leesa Choudhury on 09-12-2021 Test Code 643508 Invalid Interpretation Code [facility] Name IG PAP CTNG HPV Invalid Interpretation Code [facility] Group B Strep Screen PCRon 0 07-23-2021 Group B Strep Screen PCR Group B Strep Screen PCR --> Status: F POSITIVE Expected Result: Negative CDC guidelines for prevention of Group B Strep disease recommends collection of both vaginal and rectal specimens for optimal recovery of GBS. Methodology - Real Time PCR (Mashups) Expected Result: Negative CDC guidelines for prevention of Group B Strep disease recommends collection of both vaginal and rectal specimens for optimal recovery of GBS. Methodology - Real Time PCR (Mashups) 1 Organism Streptococcus agalactiae (Group B) Isolated: Susceptibility testing not routinely performed. Group B streptococcus is universally susceptible to beta-lactam antibiotics and vancomycin. If patient is beta-lactam allergic, please call [facility] Microbiology lab ([phone]) within 2 days to request susceptibility testing. If isolated from urine, Group B strep may indicate colonization or infection. 1 Organism Antibiotic Result Intrp Ampicillin(DOMINGUEZ) <= 0.25 S Inducible Clindamycin Resistant(DOMINGUEZ)Neg Neg Ceftriaxone(DOMINGUEZ) <= 0.12 S Clindamycin(DOMINGUEZ) <= 0.25 S Vancomycin(DOMINGUEZ) 0.5 S Levofloxacin(DOMINGUEZ) 0.5 S Linezolid(DOMINGUEZ) <= 2 S Tetracycline(DOMINGUEZ) >= 16 R Erythromycin(DOMINGUEZ) <= 0.12 S Penicillin-G(DOMINGUEZ) <= 0.06 S Normal [facility] Comment on above: Performed By: #### B GLU #### [facility] [address] [place] [address] Glucose,Bedsideon 07-20-2021 Glucose [Mass/Vol] 114 mg/dL High 70-100 [facility] Comment on above: Result Comment: Test performed by glucose meter. Results may be 10%-15% lower than serum/plasma values. (CLIA ID [id number]) Performed By: #### B GLU #### [facility] [address] [place] [address] Glucose [Mass/Vol] 148 mg/dL High 70-100 [facility] Comment on above: Result Comment: Test performed by glucose meter. Results may be 10%-15% lower than serum/plasma values. (CLIA ID [id number]) Performed By: #### B GLU #### [address] [place] [address] Glucose [Mass/Vol] 109 mg/dL High 70-100 [facility] Comment on above: Result Comment: Test performed by glucose meter. Results may be 10%-15% lower than serum/plasma values. (CLIA ID [id number]) Performed By: #### B GLU #### [address] [place] [address] Glucose [Mass/Vol] 184 mg/dL High 70-100 [facility] Comment on above: Result Comment: Test performed by glucose meter. Results may be 10%-15% lower than serum/plasma values. (CLIA ID [id number]) Performed By: #### B GLU #### [address] [address] [place] [address] POCT Glucoseon 07-20-2021 Glucose [Mass/Vol] 114 mg/dL High 70 - 100 mg/dL [facility] Work Phone: Comment on above: Test performed by gl ucose meter. Results may be 10%-15% lower than serum/plasma values. (CLIA ID [id number]) Interpretation and review of laboratory results Abnormal [facility] Work Phone: Test Performed by [facility] Mobeon [facility], [address] [place] [id number] [facility] Work Phone: Glucose [Mass/Vol] 148 mg/dL High 70 - 100 mg/dL [facility] Work Phone: Comment on above: Test performed by gl ucose meter. Results may be 10%-15% lower than serum/plasma values. (CLIA ID [id number]) Interpretation and review of laboratory results Abnormal [facility] Work Phone: Test Performed by [facility], [facility] [place] [address] [facility] Work Phone: Test Performed by [facility], [facility] [place] [address] [facility] Test Performed by [facility], [facility] [place], [place] [id number] [place] [address] LAB POCT GlucoseOrdered By: Beka Handley on 07-20-2021 Glucose [Mass/Vol] 109 mg/dL High 70 - 100 mg/dL [facility] Comment on above: Test performed by gl ucose meter. Results may be 10%-15% lower than serum/plasma values. (CLIA ID [id number]) Interpretation and review of laboratory results Abnormal [facility] POCT GlucoseOrdered By: Che Mary on 07-20-2021 Glucose [Mass/Vol] 184 mg/dL High 70 - 100 mg/dL [facility] Comment on above: Test performed by gl ucose meter. Results may be 10%-15% lower than serum/plasma values. (CLIA ID [id number]) Interpretation and review of laboratory results Abnormal [facility] C. Trachomatis / N. Gonorrho eae, DNA Probeon 07-19-2021 C. trachomatis DNA ESTER+probe Ql (Genital specimen) NOT Detected Chlamydia trachomatis Nucleic Acid NOT Detected by DNA Amplification using the Cepheid System. Culture is the only recommended test in medical-legal cases such as suspected child abuse or molestation. [facility] N. gonorrhoeae DNA ESTER+probe Ql (Unsp spec) NOT Detected Neisseria gonorrhoeae Nucleic Acid NOT Detected by DNA Amplification using the Cepheid System. Culture is the only recommended test in medical-legal cases such as suspected child abuse or molestation. [facility] Test Performed by [facility], [facility] [place] [address] [facility] CBCon 07-19-2021 Hematocrit (Bld) [Volume fraction] 36.3 % 35.0 - 47.0 % [facility] Hemoglobin.gastrointest inal spec 1 Ql (Stl) 12.1 g/dL 11.7 - 16.0 g/dL [facility] Interpretation and review of laboratory results Abnormal [facility] MCH (RBC) [Entitic mass] 29.9 pg 26.0 - 34.0 pg [facility] MCHC (RBC) [Mass/Vol] 33.4 % 32.0 - 36.0 % [facility] MCV (RBC) [Entitic vol] 89.5 fL 79.0 - 98.0 fL [facility] Platelet distribution width (Bld) [Ratio] 14.7 % High 11.5 - 14.5 % [facility] Platelet mean volume (Bld) [Entitic vol] 8.1 fL 7.4 - 10.4 fL [facility] Platelets (Bld) [#/Vol] 381 10*3/uL 140 - 440 10*3/uL [facility] RBC (Bld) [#/Vol] 4.05 10*6/uL 3.80 - 5.2 0 10*6/uL [facility] WBC (Bld) [#/Vol] 21.9 10*3/uL High 3.6 - 10.7 10*3/uL [facility] Test Performed by [address] [address] [facility] Chlamydia and GC PCR Panelon 07-19-2021 Chlamydia and GC PCR Panel Chlamydia trachomatis PCR --> Status: F NOT Detected Chlamydia trachomatis Nucleic Acid NOT Detected by DNA Amplification using the Cepheid System. Culture is the only recommended test in medical-legal cases such as suspected child abuse or molestation. Chlamydia trachomatis Nucleic Acid NOT Detected by DNA Amplification using the Cepheid System. Culture is the only recommended test in medical-legal cases such as suspected child abuse or molestation. Neisseria gonorrhoeae PCR --> Status: F NOT Detected Neisseria gonorrhoeae Nucleic Acid NOT Detected by DNA Amplification using the Cepheid System. Culture is the only recommended test in medical-legal cases such as suspected child abuse or molestation. Neisseria gonorrhoeae Nucleic Acid NOT Detected by DNA Amplification using the Cepheid System. Culture is the only recommended test in medical-legal cases such as suspected child abuse or molestation. Normal [facility] Comment on above: Performed By: #### B GLU #### [address] [id number] Comp Metabolic Panelon 07-19 Calcium [Mass/Vol] 7.6 mg/dL Low 8.4-10.4 [facility] Comment on above: Performed By: #### C MP3 #### [facility] [address] [place], [place] ALP [Catalytic activity/Vol] 157 U/L High 38-126 [facility] Comment on above: Performed By: #### C MP3 #### [facility] [address] [place], [place] ALT [Catalytic activity/Vol] 13 U/L Normal 0-34 [facility] Comment on above: Result Comment: The ALT test is performed by an updated assay method. Please note that the reference intervals have been changed and are now sex specific. Performed By: #### C MP3 #### [address] [address] [place], [place] Anion gap [Moles/Vol] 3 mmol/L Normal 3-13 [facility] Comment on above: Performed By: #### C MP3 #### [address] [address] [address] [place], [place] AST [Catalytic activity/Vol] 27 U/L Normal 15-46 [facility] Comment on above: Performed By: #### C MP3 #### [address] [address] [address] [place], [place] Bilirubin [Mass/Vol] 0.4 mg/dL Normal 0.2-1.3 [facility] Comment on above: Performed By: #### C MP3 #### [address] [address] [address] [place], [place] CO2 [Moles/Vol] 24 mmol/L Normal 22-30 [facility] Comment on above: Performed By: #### C MP3 #### [address] [address] [address] [place], [place] Creatinine [Mass/Vol] 0.44 mg/dL Low 0.52-1.25 [facility] Comment on above: Performed By: #### C MP3 #### [address] [address] [place], [place] eGFR OTHER > 90.0 Normal >60 [facility] Comment on above: Result Comment: KDIG O guidelines provide the following GFR categories: Stage GFR(ml/min/1.73 m2) Terms G1 >=90 Normal or high G2 60-89 Mildly decreased* G3a 45-59 Mildly to moderately decreased G3b 30-44 Moderately to severely decreased G4 15-29 Severely decreased G5 <15 Kidney failure *Relative to young adult level. In the absence of evidence of kidney damage, neither GFR category G1 nor G2 fulfill the criteria for CKD. The CKD-EPI equation is validated in individuals 18 years of age and older. Currently the best equation for estimating glomerular filtration rate (GFR) from serum creatinine in children is the Bedside Gaitan equation. It is less accurate in patients with extremes of muscle mass, restriction of dietary protein, ingestion of creatine, extra-renal metabolism of creatinine, or treatment with medications that affect renal tubular creatinine secretion. Performed By: #### C MP3 #### [facility] [address] [place], [place] GFR/1.73 sq M.predicted among blacks MDRD (S/P/Bld) [Vol rate/Area] mL/min/{1.73_m2} Normal >60 [facility] Comment on above: Performed By: #### C MP3 #### [facility] [address] [place], [place] Glucose [Mass/Vol] 103 mg/dL High 70-100 [facility] Comment on above: Performed By: #### C MP3 #### [facility] [address] [place], [place] Protein [Mass/Vol] 6.3 g/dL Normal 6.3-8.2 [facility] Comment on above: Performed By: #### C MP3 #### [facility] [address] [place], [place] Urea nitrogen [Mass/Vol] 3 mg/dL Low 9-20 [facility] Comment on above: Performed By: #### C MP3 #### [facility] [address] [place], [place] Potassium [Moles/Vol] 3.7 mmol/L Normal 3.5-5.1 [facility] Comment on above: Performed By: #### C MP3 #### [facility] [address] [place], [place] Albumin [Mass/Vol] 3.3 g/dL Low 3.5-5.0 [facility] Comment on above: Performed By: #### C MP3 #### [facility] [address] [place], [place] Chloride [Moles/Vol] 105 mmol/L Normal 98-107 [facility] Comment on above: Performed By: #### C MP3 #### [address] [address] [address] [place], [place] Sodium [Moles/Vol] 133 mmol/L Low 135-145 [facility] Comment on above: Performed By: #### C MP3 #### [address] [address] [address] [place], [place] Complete Urinalysison 2021 Appearance (U) Clear Normal Clear [facility] Comment on above: Result Comment: . Performed By: #### C UA2 #### [address] [address] [place], [place] Bilirubin,Urine Negative Normal Negative [facility] Comment on above: Result Comment: . Performed By: #### C UA2 #### [address] [address] [address] [place], [place] Color (U) Colorless Normal Lt. Yellow [facility] Comment on above: Result Comment: . Performed By: #### C UA2 #### [address] [address] [address] [place], [place] Glucose Ql (U) Normal Normal Normal (<70) [facility] Comment on above: Result Comment: . Performed By: #### C UA2 #### [address] [address] [address] [place], [place] Ketone,Urine 10 mg/dL Abnormal Negative [facility] Comment on above: Result Comment: . Performed By: #### C UA2 #### [address] [address] [address] [place], [place] Leukocytes,Urine Negative Normal Negative [facility] Comment on above: Result Comment: . Performed By: #### C UA2 #### [facility] [address] [place], [place] Nitrites,Urine Negative Normal Negative [facility] Comment on above: Result Comment: . Performed By: #### C UA2 #### [facility] [address] [place], [place] Occult Blood,Urine Negative Normal Negative [facility] Comment on above: Result Comment: . Performed By: #### C UA2 #### [address] [address] [address] [place], [place] pH,Urine 5.0 Normal 5.0-8.0 [facility] Comment on above: Result Comment: . Performed By: #### C UA2 #### [address] [address] [address] [place], [place] Specific [place],Urine < 1.005 Abnormal 1.005 - 1.030 [facility] Comment on above: Result Comment: . Performed By: #### C UA2 #### [address] [address] [address] [place], [place] Total Protein,Urine Negative Normal Negative [facility] Comment on above: Result Comment: . Performed By: #### C UA2 #### [address] [address] [address] [place], [place] Urobilinogen,Urine Normal Normal Normal (0-1) [facility] Comment on above: Result Comment: . Performed By: #### C UA2 #### [address] [address] [address] [place], [place] Comprehensive Metabolic Pane chata 07-19-2021 Albumin [Mass/Vol] 3.3 g/dL Low 3.5 - 5.0 g/dL [facility] ALP (Bld) [Catalytic activity/Vol] 157 U/L High 38 - 126 U/L [facility] ALT [Catalytic activity/Vol] 13 U/L 0 - 34 U/L [facility] Comment on above: The ALT test is perf ormed by an updated assay method. Please note that the reference intervals have been changed and are now sex specific. Anion gap [Moles/Vol] 3 mmol/L 3 - 13 mmol/L [facility] AST [Catalytic activity/Vol] 27 U/L 15 - 46 U/L [facility] Bilirubin [Mass/Vol] 0.4 mg/dL 0.2 - 1 .3 mg/dL [facility] Calcium [Mass/Vol] 7.6 mg/dL Low 8.4 - 10. 4 mg/dL [facility] Chloride [Moles/Vol] 105 mmol/L 98 - 10 7 mmol/L [facility] CO2 [Moles/Vol] 24 mmol/L 22 - 30 mmol/L [facility] Creatinine [Mass/Vol] 0.44 mg/dL Low 0.52 - 1.25 mg/dL [facility] EGFR IF NonAfrican Citizen Of [place] >90.0 >60 mL/min [facility] Comment on above: KDIGO guidelines pro vide the following GFR categories: Stage GFR(ml/min/1.73 m2) Terms G1 >=90 Normal or high G2 60-89 Mildly decreased* G3a 45-59 Mildly to moderately decreased G3b 30-44 Moderately to severely decreased G4 15-29 Severely decreased G5 <15 Kidney failure *Relative to young adult level. In the absence of evidence of kidney damage, neither GFR category G1 nor G2 fulfill the criteria for CKD. The CKD-EPI equation is validated in individuals 18 years of age and older. Currently the best equation for estimating glomerular filtration rate (GFR) from serum creatinine in children is the Bedside Gaitan equation. It is less accurate in patients with extremes of muscle mass, restriction of dietary protein, ingestion of creatine, extra-renal metabolism of creatinine, or treatment with medications that affect renal tubular creatinine secretion. Free PSA/Total PSA [Mass fraction] 6.3 g/dL 6.3 - 8.2 g/dL [facility] GFR/1.73 sq M.predicted among blacks MDRD (S/P/Bld) [Vol rate/Area] mL/min/{1.73_m2} >60 mL/min [facility] Glucose [Mass/Vol] 103 mg/dL High 70 - 100 mg/dL [facility] Interpretation and review of laboratory results Abnormal [facility] Potassium [Moles/Vol] 3.7 mmol/L 3.5 - 5.1 mmol/L [facility] Sodium [Moles/Vol] 133 mmol/L Low 135 - 145 mmol/L [facility] Urea nitrogen (BldV) [Mass/Vol] 3 mg/dL Low 9 - 20 mg/dL [facility] Test Performed by [facility], [address] [place] [address] [facility] Glucose,Bedsideon 07-19-2021 Glucose [Mass/Vol] 112 mg/dL High 70-100 [facility] Comment on above: Result Comment: Test performed by glucose meter. Results may be 10%-15% lower than serum/plasma values. (CLIA ID [id number]) Performed By: #### B GLU #### [address] Hemogramon 07-19-2021 Erythrocyte distribution width (RBC) [Ratio] 14.7 % High 11.5-14.5 [facility] Comment on above: Performed By: #### H EMOG #### [address] Hematocrit (Bld) [Volume fraction] 36.3 % Normal 35.0-47.0 [facility] Comment on above: Performed By: #### H EMOG #### [address] [address] [place], [place] Hemoglobin (Bld) [Mass/Vol] 12.1 g/dL Normal 11.7-16.0 [facility] Comment on above: Performed By: #### H EMOG #### [address] MCH (RBC) [Entitic mass] 29.9 pg Normal 26.0-34.0 [facility] Comment on above: Performed By: #### H EMOG #### [address] [address] [place], [place] MCHC 33.4 % Normal 32.0-36.0 [facility] Comment on above: Performed By: #### H EMOG #### [address] MCV (RBC) [Entitic vol] 89.5 fL Normal 79.0-98.0 [facility] Comment on above: Performed By: #### H EMOG #### [address] Platelet mean volume (Bld) [Entitic vol] 8.1 fL Normal 7.4-10.4 [facility] Comment on above: Performed By: #### H EMOG #### [facility] [address] [place], [place] Platelets (Bld) [#/Vol] 381 10*3/uL Normal 140-440 [facility] Comment on above: Performed By: #### H EMOG #### [facility] [address] [place], [place] RBC (Bld) [#/Vol] 4.05 10*6/uL Normal 3.80-5.20 [facility] Comment on above: Performed By: #### H EMOG #### [facility] [address] [place], [place] WBC (Bld) [#/Vol] 21.9 10*3/uL High 3.6-10.7 [facility] Comment on above: Performed By: #### H EMOG #### [facility] [address] [place], [place] MFM US Biophy w/o non- stresson 07-19-2021 MFM US Biophy w/o non-stress Patient Name: ALEJANDRA REAL Maternal Medicine ACCESSION EXAM DATE/TIME PROCEDURE ORDERING PROVIDER [id number] 07/19/2021 09:43 EDT [facility] US Biophy w/o [id number] JERRELL VELEZ non-stress Reason For Exam ([facility] US Biophy w/o non-stress) PTL Report ------- OBSTETRICS REPORT (Signed Final 07/19/2021 10:21 am) ------- PATIENT INFO: ID #: [id number] : [birth year] (25 yrs) Name: ALEJANDRA REAL Visit Date: 07/19/2021 09:19 am ------- PERFORMED BY: Attending: Misti Ziegler MD Performed By: Shamika Mckee RDMS Referred By: JERRELL VELEZ Visit Type: Inpatient - Hospital ------- SERVICE(S) PROVIDED: US >= 14 weeks [address] BPP w/out NST 17109 ------- INDICATIONS: Labor H/O PTD ------- VITAL SIGNS: Weight (lb): 154 Height: 5'2 BMI: 28.16 ------- EVALUATION: Num Of Fetuses: 1 Heart Rate(bpm): 132 Cardiac Activity: Observed Lie: Longitudinal Presentation: Cephalic Placenta: Posterior Fundal P. Cord Insertion: Normal Amniotic Fluid DAGOBERTO FV: Within normal limits DAGOBERTO Sum(cm) %Tile Largest Pocket(cm) 11.2 28 3.6 Maternal Medicine Report RUQ(cm) RLQ(cm) LUQ(cm) LLQ(cm) 3.6 2 2.9 2.7 ------- BIOPHYSICAL EVALUATION: Amniotic F.V: Within normal limits F. Tone: Observed F. Movement: Observed Score: 12/03 F. Breathing: Observed ------- BIOMETRY: BPD: 84.1 mm G.Age: 33w 6d 47 % OFD: 103 mm HC: 299.8 mm G.Age: 33w 2d 7 % AC: 313.9 mm G.Age: 35w 2d 89 % FL: 66.9 mm G.Age: 34w 3d 55 % HUM: 63.2 mm G.Age: 36w 5d > 95 % CER: 45.4 mm G.Age: 35w 0d 49 % LV: 5.64 mm CM: 12.44 mm CI: 81.7 % 70 - 86 FL/HC: 22.3 % 19.4 - 21.8 HC/AC: 0.96 0.96 - 1.11 FL/BPD: 79.5 % 71 - 87 FL/AC: 21.3 % 20 - 24 Est. FW: 2494 gm 5 lb 8 oz 57 % ------- GESTATIONAL AGE: Clinical CHEYENNE: 33w 6d CHEYENNE: 08/31/21 U/S Today: 34w 2d CHYEENNE: 08/28/21 Best: 33w 6d Det. By: Clinical CHEYENNE CHEYENNE: 08/31/21 ------- TARGETED ANATOMY: Central Nervous System Calvarium/Cranial V.: Normal appearance Intracranial Taryn: Normal appearance Cavum: Normal appearance Lateral Ventricles: Normal appearance Choroid Plexus: Normal appearance Cereb./Vermis: Normal appearance Cisterna Magna: Normal appearance Corpus Callosum: Normal appearance Midline Falx: Normal appearance Spine Cervical: Normal appearance Thoracic: Normal appearance Lumbar: Normal appearance Sacral: Normal appearance Shape/Curvature: Normal appearance Head/Neck Face: Suboptimal views Lips: Normal appearance Neck: Normal appearance Nasal Bone: Suboptimal views Palate: Suboptimal views Profile: Suboptimal views Orbits/Eyes: Suboptimal views Maternal Medicine Report Mandible: Suboptimal views Maxilla: Suboptimal views Thorax Thoracic Contour: Normal appearance Lungs: Normal appearance 4 Chamber View: Normal appearance Cardiac Activity: Observed Cardiac Rhythm: Normal Cardiac Situs: Normal appearance Rt Outflow Tract: Suboptimal views Lt Outflow Tract: Normal appearance Aortic Arch: Normal appearance Ductal Arch: Normal appearance SVC: Normal appearance Interventr. Septum: Normal appearance Cardiac [place]: Normal appearance Diaphragm: Normal appearance 3 Vessel View: Suboptimal views 3 V Trachea View: Suboptimal views IVC: Suboptimal Crossing: Suboptimal views Abdomen Ventral Wall: Normal appearance Cord Insertion: Suboptimal views Situs: Normal appearance Stomach: Normal appearance Liver: Normal appearance Lt Kidney: Normal appearance Rt Kidney: Normal appearance Bladder: Normal appearance Bowel: Normal appearance Extremities Lt Humerus: Normal appearance Rt Humerus: Normal appearance Lt Forearm: Normal appearance Rt Forearm: Normal appearance Lt Hand: Suboptimal views Rt Hand: Normal appearance Lt Femur: Normal appearance Rt Femur: Normal appearance Lt Lower Leg: Suboptimal views Rt Lower Leg: Suboptimal views Lt Foot: Suboptimal views Rt Foot: Suboptimal views Other Umbilical Cord: Normal 3-vessel Genitalia: Suboptimal views Comment: Anatomy challenging due to gestational age. ------- IMPRESSION: Smith live i (more content not included)... Normal [facility] US After 1st T rimesteron 07-19-2021 MFM US After 1st Trimester Patient Name: ALEJANDRA REAL Maternal Medicine ACCESSION EXAM DATE/TIME PROCEDURE ORDERING PROVIDER [id number] 07/19/2021 09:43 EDT [facility] US Biophy w/o [id number] JERRELL WHITNEY non-stress Reason For Exam ([facility] US Biophy w/o non-stress) PTL Report ------- OBSTETRICS REPORT (Signed Final 07/19/2021 10:21 am) ------- PATIENT INFO: ID #: [id number] : [birth year] (25 yrs) Name: ALEJANDRA REAL Visit Date: 07/19/2021 09:19 am ------- PERFORMED BY: Attending: Misti Ziegler MD Performed By: Shamika Mckee RDMS Referred By: JERRELL VELEZ Visit Type: Inpatient - Hospital ------- SERVICE(S) PROVIDED: US >= 14 weeks [address] BPP w/out NST 21018 ------- INDICATIONS: Labor H/O PTD ------- VITAL SIGNS: Weight (lb): 154 Height: 5'2 BMI: 28.16 ------- EVALUATION: Num Of Fetuses: 1 Heart Rate(bpm): 132 Cardiac Activity: Observed Lie: Longitudinal Presentation: Cephalic Placenta: Posterior Fundal P. Cord Insertion: Normal Amniotic Fluid DAGOBERTO FV: Within normal limits DAGOBERTO Sum(cm) %Tile Largest Pocket(cm) 11.2 28 3.6 Maternal Medicine Report RUQ(cm) RLQ(cm) LUQ(cm) LLQ(cm) 3.6 2 2.9 2.7 ------- BIOPHYSICAL EVALUATION: Amniotic F.V: Within normal limits F. Tone: Observed F. Movement: Observed Score: 12/03 F. Breathing: Observed ------- BIOMETRY: BPD: 84.1 mm G.Age: 33w 6d 47 % OFD: 103 mm HC: 299.8 mm G.Age: 33w 2d 7 % AC: 313.9 mm G.Age: 35w 2d 89 % FL: 66.9 mm G.Age: 34w 3d 55 % HUM: 63.2 mm G.Age: 36w 5d > 95 % CER: 45.4 mm G.Age: 35w 0d 49 % LV: 5.64 mm CM: 12.44 mm CI: 81.7 % 70 - 86 FL/HC: 22.3 % 19.4 - 21.8 HC/AC: 0.96 0.96 - 1.11 FL/BPD: 79.5 % 71 - 87 FL/AC: 21.3 % 20 - 24 Est. FW: 2494 gm 5 lb 8 oz 57 % ------- GESTATIONAL AGE: Clinical CHEYENNE: 33w 6d CHEYENNE: 08/31/21 U/S Today: 34w 2d CHEYENNE: 08/28/21 Best: 33w 6d Det. By: Clinical CHEYENNE CHEYENNE: 08/31/21 ------- TARGETED ANATOMY: Central Nervous System Calvarium/Cranial V.: Normal appearance Intracranial Taryn: Normal appearance Cavum: Normal appearance Lateral Ventricles: Normal appearance Choroid Plexus: Normal appearance Cereb./Vermis: Normal appearance Cisterna Magna: Normal appearance Corpus Callosum: Normal appearance Midline Falx: Normal appearance Spine Cervical: Normal appearance Thoracic: Normal appearance Lumbar: Normal appearance Sacral: Normal appearance Shape/Curvature: Normal appearance Head/Neck Face: Suboptimal views Lips: Normal appearance Neck: Normal appearance Nasal Bone: Suboptimal views Palate: Suboptimal views Profile: Suboptimal views Orbits/Eyes: Suboptimal views Maternal Medicine Report Mandible: Suboptimal views Maxilla: Suboptimal views Thorax Thoracic Contour: Normal appearance Lungs: Normal appearance 4 Chamber View: Normal appearance Cardiac Activity: Observed Cardiac Rhythm: Normal Cardiac Situs: Normal appearance Rt Outflow Tract: Suboptimal views Lt Outflow Tract: Normal appearance Aortic Arch: Normal appearance Ductal Arch: Normal appearance SVC: Normal appearance Interventr. Septum: Normal appearance Cardiac [place]: Normal appearance Diaphragm: Normal appearance 3 Vessel View: Suboptimal views 3 V Trachea View: Suboptimal views IVC: Suboptimal Crossing: Suboptimal views Abdomen Ventral Wall: Normal appearance Cord Insertion: Suboptimal views Situs: Normal appearance Stomach: Normal appearance Liver: Normal appearance Lt Kidney: Normal appearance Rt Kidney: Normal appearance Bladder: Normal appearance Bowel: Normal appearance Extremities Lt Humerus: Normal appearance Rt Humerus: Normal appearance Lt Forearm: Normal appearance Rt Forearm: Normal appearance Lt Hand: Suboptimal views Rt Hand: Normal appearance Lt Femur: Normal appearance Rt Femur: Normal appearance Lt Lower Leg: Suboptimal views Rt Lower Leg: Suboptimal views Lt Foot: Suboptimal views Rt Foot: Suboptimal views Other Umbilical Cord: Normal 3-vessel Genitalia: Suboptimal views Comment: Anatomy challenging due to gestational age. ------- IMPRESSION: Smith live i (more content not included)... Normal [facility] No Panel Informationon 07-19 Radiology Study observation (narrative) [facility] Work Phone: POCT GlucoseOrdered By: Venancio Hollingsworth on 07-19-2021 Glucose [Mass/Vol] 112 mg/dL High 70 - 100 mg/dL [facility] Comment on above: Test performed by gl ucose meter. Results may be 10%-15% lower than serum/plasma values. (CLIA ID [id number]) Interpretation and review of laboratory results Abnormal [facility] POCT Glucoseon 07-19-2021 Test Performed by [facility], [address] [place] [address] LAB RADIOLOGY REPORTon Ordered by an unspecified provider. [facility] TS GELon 07-19-2021 TS GEL ABO Group: O Rh, Gel: POS Antibody Screen Gel: NEG Normal [facility] Comment on above: Performed By: #### T SGL #### [facility] TYPE AND SCREENon 07-19-2021 [facility]BO Grouping [facility] Positive [facility] Test Performed by [facility], [address] [place] [address] LAB [facility] Trichomonas Vaginali, Molecu alesia 07-19-2021 Trichomonas Vaginali, Molecular NOT Detected Reference Interval: Not Detected Method: Real-time PCR. Negative results do not completely rule out infection with Trichomonas vaginalis. [facility] Test Performed by [facility], [address] [place] [address] LAB [facility] Trichomonas vaginalis PCRon 07-19-2021 Trichomonas vaginalis PCR Trichomonas vaginalis PCR --> Status: F NOT Detected Reference Interval: Not Detected Method: Real-time PCR. Negative results do not completely rule out infection with Trichomonas vaginalis. Reference Interval: Not Detected Method: Real-time PCR. Negative results do not completely rule out infection with Trichomonas vaginalis. Normal [facility] Comment on above: Performed By: #### C TNGP, TVPCR #### [address] [id number] US BIOPHYSICAL PROFILE WO NON STRESS TESTINGon 07-19-2021 Patient Name: ALEJANDRA REAL Maternal Medicine ACCESSION EXAM DATE/TIME PROCEDURE ORDERING PROVIDER [id number] 07/19/2021 09:43 EDT MFM US Biophy w/o [id number] -JERRELL VELEZ non-stress Reason For Exam ([facility] US Biophy w/o non-stress) PTL Report ------- OBSTETRICS REPORT (Signed Final 07/19/2021 10:21 am) ------- PATIENT INFO: ID #: [id number] : [birth year] (25 yrs) Name: ALEJANDRA REAL Visit Date: 07/19/2021 09:19 am ------- PERFORMED BY: Attending: Misti Ziegler MD Performed By: Shamika Mckee RDMS Referred By: JERRELL VELEZ Visit Type: Inpatient - Hospital ------- SERVICE(S) PROVIDED: US >= 14 weeks 12997 BPP w/out NST 97916 ------- INDICATIONS: Labor H/O PTD ------- VITAL SIGNS: Weight (lb): 154 Height: 5'2 BMI: 28.16 ------- EVALUATION: Num Of Fetuses: 1 Heart Rate(bpm): 132 Cardiac Activity: Observed Lie: Longitudinal Presentation: Cephalic Placenta: Posterior Fundal P. Cord Insertion: Normal Amniotic Fluid DAGOBERTO FV: Within normal limits DAGOBERTO Sum(cm) %Tile Largest Pocket(cm) 11.2 28 3.6 Maternal Medicine Report RUQ(cm) RLQ(cm) LUQ(cm) LLQ(cm) 3.6 2 2.9 2.7 ------- BIOPHYSICAL EVALUATION: Amniotic F.V: Within normal limits F. Tone: Observed F. Movement: Observed Score: 8 F. Breathing: Observed ------- BIOMETRY: BPD: 84.1 mm G.Age: 33w 6d 47 % OFD: 103 mm HC: 299.8 mm G.Age: 33w 2d 7 % AC: 313.9 mm G.Age: 35w 2d 89 % FL: 66.9 mm G.Age: 34w 3d 55 % HUM: 63.2 mm G.Age: 36w 5d > 95 % CER: 45.4 mm G.Age: 35w 0d 49 % LV: 5.64 mm CM: 12.44 mm CI: 81.7 % 70 - 86 FL/HC: 22.3 % 19.4 - 21.8 HC/AC: 0.96 0.96 - 1.11 FL/BPD: 79.5 % 71 - 87 FL/AC: 21.3 % 20 - 24 Est. FW: 2494 gm 5 lb 8 oz 57 % ------- GESTATIONAL AGE: Clinical CHEYENNE: 33w 6d CHEYENNE: 08/31/21 U/S Today: 34w 2d CHEYENNE: 08/28/21 Best: 33w 6d Det. By: Clinical CHEYENNE CHEYENNE: 08/31/21 ------- TARGETED ANATOMY: Central Nervous System Calvarium/Cranial V.: Normal appearance Intracranial Taryn: Normal appearance Cavum: Normal appearance Lateral Ventricles: Normal appearance Choroid Plexus: Normal appearance Cereb./Vermis: Normal appearance Cisterna Magna: Normal appearance Corpus Callosum: Normal appearance Midline Falx: Normal appearance Spine Cervical: Normal appearance Thoracic: Normal appearance Lumbar: Normal appearance Sacral: Normal appearance Shape/Curvature: Normal appearance Head/Neck Face: Suboptimal views Lips: Normal appearance Neck: Normal appearance Nasal Bone: Suboptimal views Palate: Suboptimal views Profile: Suboptimal views Orbits/Eyes: Suboptimal views Maternal Medicine Report Mandible: Suboptimal views Maxilla: Suboptimal views Thorax Thoracic Contour: Normal appearance Lungs: Normal appearance 4 Chamber View: Normal appearance Cardiac Activity: Observed Cardiac Rhythm: Normal Cardiac Situs: Norm (more content not included)... Misti Booker MD - 07/19/2021 Patient Name: ALEJANDRA REAL Maternal Medicine ACCESSION EXAM DATE/TIME PROCEDURE ORDERING PROVIDER [id number] 07/19/2021 09:43 EDT [facility] US Biophy w/o [id number] JERRELL WHITNEY non-stress Reason For Exam ([facility] US Biophy w/o non-stress) PTL Report ------- OBSTETRICS REPORT (Signed Final 07/19/2021 10:21 am) ------- PATIENT INFO: ID #: [id number] : [birth year] (25 yrs) Name: ALEJANDRA REAL Visit Date: 07/19/2021 09:19 am ------- PERFORMED BY: Attending: Misti Ziegler MD Performed By: Shamika Mckee RDMS Referred By: JERRELL VELEZ Visit Type: Inpatient - Hospital ------- SERVICE(S) PROVIDED: US >= 14 weeks 40196 BPP w/out NST 26239 ------- INDICATIONS: Labor H/O PTD ------- VITAL SIGNS: Weight (lb): 154 Height: 5'2 BMI: 28.16 ------- EVALUATION: Num Of Fetuses: 1 Heart Rate(bpm): 132 Cardiac Activity: Observed Lie: Longitudinal Presentation: Cephalic Placenta: Posterior Fundal P. Cord Insertion: Normal Amniotic Fluid DAGOBERTO FV: Within normal limits DAGOBERTO Sum(cm) %Tile Largest Pocket(cm) 11.2 28 3.6 Maternal Medicine Report RUQ(cm) RLQ(cm) LUQ(cm) LLQ(cm) 3.6 2 2.9 2.7 ------- BIOPHYSICAL EVALUATION: Amniotic F.V: Within normal limits F. Tone: Observed F. Movement: Observed Score: 8/8 F. Breathing: Observed ------- BIOMETRY: BPD: 84.1 mm G.Age: 33w 6d 47 % OFD: 103 mm HC: 299.8 mm G.Age: 33w 2d 7 % AC: 313.9 mm G.Age: 35w 2d 89 % FL: 66.9 mm G.Age: 34w 3d 55 % HUM: 63.2 mm G.Age: 36w 5d > 95 % CER: 45.4 mm G.Age: 35w 0d 49 % LV: 5.64 mm CM: 12.44 mm CI: 81.7 % 70 - 86 FL/HC: 22.3 % 19.4 - 21.8 HC/AC: 0.96 0.96 - 1.11 FL/BPD: 79.5 % 71 - 87 FL/AC: 21.3 % 20 - 24 Est. FW: 2494 gm 5 lb 8 oz 57 % ------- GESTATIONAL AGE: Clinical CHEYENNE: 33w 6d CHEYENNE: 08/31/21 U/S Today: 34w 2d CHEYENNE: 08/28/21 Best: 33w 6d Det. By: Clinical CHEYENNE CHEYENNE: 08/31/21 ------- TARGETED ANATOMY: Central Nervous System Calvarium/Cranial V.: Normal appearance Intracranial Taryn: Normal appearance Cavum: Normal appearance Lateral Ventricles: Normal appearance Choroid Plexus: Normal appearance Cereb./Vermis: Normal appearance Cisterna Magna: Normal appearance Corpus Callosum: Normal appearance Midline Falx: Normal appearance Spine Cervical: Normal appearance Thoracic: Normal appearance Lumbar: Normal appearance Sacral: Normal appearance Shape/Curvature: Normal appearance Head/Neck Face: Suboptimal views Lips: Normal appearance Neck: Normal appearance Nasal Bone: Suboptimal views Palate: Suboptimal views Profile: Suboptimal views Orbits/Eyes: Suboptimal views Maternal Medicine Report Mandible: Suboptimal views Maxilla: Suboptimal views Thorax Thoracic Contour: Normal appearance Lungs: Normal appearance 4 Chamber View: Normal appearance Cardiac Activity: Observed Cardiac Rhythm: Normal Cardiac Situs: Normal appearance Rt Outflow Tract: Suboptimal views Lt Outflow Tract: Normal appearance Aortic Arch: Normal appearance Ductal Arch: Normal appearance SVC: Normal appearance Interventr. Septum: Normal appearance Cardiac [place]: Normal appearance Diaphragm: Normal appearance 3 Vessel View: Suboptimal views 3 V Trachea View: Suboptimal views IVC: Suboptimal Crossing: Suboptimal views Abdomen Ventral Wall: Normal appearance Cord Insertion: Suboptimal views Situs: Normal appearance Stomach: Normal appearance Liver: Normal appearance Lt Kidney: Normal appearance Rt Kidney: Normal appearance Bladder: Normal appearance Bowel: Normal appearance Extremities Lt Humerus: Normal appearance Rt Humerus: Normal appearance Lt Forearm: Normal appearance Rt Forearm: Normal appearance Lt Hand: Suboptimal views Rt Hand: Normal appearance Lt Femur: Normal appearance Rt Femur: Normal appearance Lt Lower Leg: Suboptimal views Rt Lower Leg: Suboptimal views Lt Foot: Suboptimal views Rt Foot: Suboptimal views Other Umbilical Cord: Normal 3-vessel Genitalia: Suboptimal views Comment: Anatomy pablo (more content not included)... [facility] Work Phone: US BIOPHYSICAL PROFILE WO NON STRESS TESTINGOrdered By: Misti Ziegler on 07-19-2021 [facility] Work Phone: US OB 14 PLUS WEEKS SINGLE O R FIRST GESTATIONon 07-19-2021 Patient Name: [facility]DRA REAL [id number] ACCESSION EXAM DATE/TIME PROCEDURE ORDERING PROVIDER [id number] 07/19/2021 09:43 EDT [facility] US Biophy w/o [id number] PINZON non-stress Reason For Exam ([facility] US Biophy w/o non-stress) PTL Report ------- OBSTETRICS REPORT (Signed Final 07/19/2021 10:21 am) ------- PATIENT INFO: ID #: [id number] : [birth year] (25 yrs) Name: ALEJANDRA REAL Visit Date: 07/19/2021 09:19 am ------- PERFORMED BY: Attending: Misti Ziegler MD Performed By: Shamika Mckee RDMS Referred By: JERRELL VELEZ Visit Type: Inpatient - Hospital ------- SERVICE(S) PROVIDED: US >= 14 weeks 27931 BPP w/out NST 06898 ------- INDICATIONS: Labor H/O PTD ------- VITAL SIGNS: Weight (lb): 154 Height: 5'2 BMI: 28.16 ------- EVALUATION: Num Of Fetuses: 1 Heart Rate(bpm): 132 Cardiac Activity: Observed Lie: Longitudinal Presentation: Cephalic Placenta: Posterior Fundal P. Cord Insertion: Normal Amniotic Fluid DAGOBERTO FV: Within normal limits DAGOBERTO Sum(cm) %Tile Largest Pocket(cm) 11.2 28 3.6 Maternal Medicine Report RUQ(cm) RLQ(cm) LUQ(cm) LLQ(cm) 3.6 2 2.9 2.7 ------- BIOPHYSICAL EVALUATION: Amniotic F.V: Within normal limits F. Tone: Observed F. Movement: Observed Score: 88 F. Breathing: Observed ------- BIOMETRY: BPD: 84.1 mm G.Age: 33w 6d 47 % OFD: 103 mm HC: 299.8 mm G.Age: 33w 2d 7 % AC: 313.9 mm G.Age: 35w 2d 89 % FL: 66.9 mm G.Age: 34w 3d 55 % HUM: 63.2 mm G.Age: 36w 5d > 95 % CER: 45.4 mm G.Age: 35w 0d 49 % LV: 5.64 mm CM: 12.44 mm CI: 81.7 % 70 - 86 FL/HC: 22.3 % 19.4 - 21.8 HC/AC: 0.96 0.96 - 1.11 FL/BPD: 79.5 % 71 - 87 FL/AC: 21.3 % - Est. FW: 2494 gm 5 lb 8 oz 57 % ------- GESTATIONAL AGE: Clinical CHEYENNE: 33w 6d CHEYENNE: 08/31/21 U/S Today: 34w 2d CHEYENNE: 08/28/21 Best: 33w 6d Det. By: Clinical CHEYENNE CHEYENNE: 08/31/21 ------- TARGETED ANATOMY: Central Nervous System Calvarium/Cranial V.: Normal appearance Intracranial Taryn: Normal appearance Cavum: Normal appearance Lateral Ventricles: Normal appearance Choroid Plexus: Normal appearance Cereb./Vermis: Normal appearance Cisterna Magna: Normal appearance Corpus Callosum: Normal appearance Midline Falx: Normal appearance Spine Cervical: Normal appearance Thoracic: Normal appearance Lumbar: Normal appearance Sacral: Normal appearance Shape/Curvature: Normal appearance Head/Neck Face: Suboptimal views Lips: Normal appearance Neck: Normal appearance Nasal Bone: Suboptimal views Palate: Suboptimal views Profile: Suboptimal views Orbits/Eyes: Suboptimal views Maternal Medicine Report Mandible: Suboptimal views Maxilla: Suboptimal views Thorax Thoracic Contour: Normal appearance Lungs: Normal appearance 4 Chamber View: Normal appearance Cardiac Activity: Observed Cardiac Rhythm: Normal Cardiac Situs: Norm (more content not included)... [facility] Misti Cisneros MD - 07/19/2021 Patient Name: ALEJANDRA REAL Maternal Medicine ACCESSION EXAM DATE/TIME PROCEDURE ORDERING PROVIDER [id number] 07/19/2021 09:43 EDT [facility] US Biophy w/o [id number] JERRELL WHITNEY non-stress Reason For Exam ([facility] US Biophy w/o non-stress) PTL Report ------- OBSTETRICS REPORT (Signed Final 07/19/2021 10:21 am) ------- PATIENT INFO: ID #: [id number] : [birth year] (25 yrs) Name: ALEJANDRA REAL Visit Date: 07/19/2021 09:19 am ------- PERFORMED BY: Attending: Misti Ziegler MD Performed By: Shamika Mckee RDMS Referred By: JERRELL VELEZ Visit Type: Inpatient - Hospital ------- SERVICE(S) PROVIDED: US >= 14 weeks 65300 BPP w/out NST 18047 ------- INDICATIONS: Labor H/O PTD ------- VITAL SIGNS: Weight (lb): 154 Height: 5'2 BMI: 28.16 ------- EVALUATION: Num Of Fetuses: 1 Heart Rate(bpm): 132 Cardiac Activity: Observed Lie: Longitudinal Presentation: Cephalic Placenta: Posterior Fundal P. Cord Insertion: Normal Amniotic Fluid DAGOBERTO FV: Within normal limits DAGOBERTO Sum(cm) %Tile Largest Pocket(cm) 11.2 28 3.6 Maternal Medicine Report RUQ(cm) RLQ(cm) LUQ(cm) LLQ(cm) 3.6 2 2.9 2.7 ------- BIOPHYSICAL EVALUATION: Amniotic F.V: Within normal limits F. Tone: Observed F. Movement: Observed Score: 8/8 F. Breathing: Observed ------- BIOMETRY: BPD: 84.1 mm G.Age: 33w 6d 47 % OFD: 103 mm HC: 299.8 mm G.Age: 33w 2d 7 % AC: 313.9 mm G.Age: 35w 2d 89 % FL: 66.9 mm G.Age: 34w 3d 55 % HUM: 63.2 mm G.Age: 36w 5d > 95 % CER: 45.4 mm G.Age: 35w 0d 49 % LV: 5.64 mm CM: 12.44 mm CI: 81.7 % 70 - 86 FL/HC: 22.3 % 19.4 - 21.8 HC/AC: 0.96 0.96 - 1.11 FL/BPD: 79.5 % 71 - 87 FL/AC: 21.3 % 20 - 24 Est. FW: 2494 gm 5 lb 8 oz 57 % ------- GESTATIONAL AGE: Clinical CHEYENNE: 33w 6d CHEYENNE: 08/31/21 U/S Today: 34w 2d CHEYENNE: 08/28/21 Best: 33w 6d Det. By: Clinical CHEYENNE CHEYENNE: 08/31/21 ------- TARGETED ANATOMY: Central Nervous System Calvarium/Cranial V.: Normal appearance Intracranial Taryn: Normal appearance Cavum: Normal appearance Lateral Ventricles: Normal appearance Choroid Plexus: Normal appearance Cereb./Vermis: Normal appearance Cisterna Magna: Normal appearance Corpus Callosum: Normal appearance Midline Falx: Normal appearance Spine Cervical: Normal appearance Thoracic: Normal appearance Lumbar: Normal appearance Sacral: Normal appearance Shape/Curvature: Normal appearance Head/Neck Face: Suboptimal views Lips: Normal appearance Neck: Normal appearance Nasal Bone: Suboptimal views Palate: Suboptimal views Profile: Suboptimal views Orbits/Eyes: Suboptimal views Maternal Medicine Report Mandible: Suboptimal views Maxilla: Suboptimal views Thorax Thoracic Contour: Normal appearance Lungs: Normal appearance 4 Chamber View: Normal appearance Cardiac Activity: Observed Cardiac Rhythm: Normal Cardiac Situs: Normal appearance Rt Outflow Tract: Suboptimal views Lt Outflow Tract: Normal appearance Aortic Arch: Normal appearance Ductal Arch: Normal appearance SVC: Normal appearance Interventr. Septum: Normal appearance Cardiac [place]: Normal appearance Diaphragm: Normal appearance 3 Vessel View: Suboptimal views 3 V Trachea View: Suboptimal views IVC: Suboptimal Crossing: Suboptimal views Abdomen Ventral Wall: Normal appearance Cord Insertion: Suboptimal views Situs: Normal appearance Stomach: Normal appearance Liver: Normal appearance Lt Kidney: Normal appearance Rt Kidney: Normal appearance Bladder: Normal appearance Bowel: Normal appearance Extremities Lt Humerus: Normal appearance Rt Humerus: Normal appearance Lt Forearm: Normal appearance Rt Forearm: Normal appearance Lt Hand: Suboptimal views Rt Hand: Normal appearance Lt Femur: Normal appearance Rt Femur: Normal appearance Lt Lower Leg: Suboptimal views Rt Lower Leg: Suboptimal views Lt Foot: Suboptimal views Rt Foot: Suboptimal views Other Umbilical Cord: Normal 3-vessel Genitalia: Suboptimal views Comment: Anatomy pablo (more content not included)... [facility] Work Phone: [phone] [facility] Work Phone: Urinalysison 07-19-2021 Appearance (U) Clear Clear NA [facility] Comment on above: . Bilirubin Urine Negative Negative mg/dL [facility] Comment on above: . Color (U) Colorless Lt. Yellow NA [facility] Comment on above: . Glucose, Ur Normal Normal (<70) mg/dL [facility] Comment on above: . Interpretation and review of laboratory results Abnormal [facility] Ketones Ql (U) 10 mg/dL Abnormal Negative [facility] Comment on above: . LEUKOCYTES, UA Negative Negative Obie/uL [facility] Comment on above: . Nitrite, Urine Negative Negative NA [facility] Comment on above: . Occult Blood,Urine Negative Negative mg/dL [facility] Comment on above: . pH (U) 5.0 [pH] [facility] Comment on above: . Specific [place], Urine <1.005 Abnormal S [facility] Comment on above: . Total Protein, Urine Negative Negativ e mg/dL [facility] Comment on above: . Urobilinogen, Urine Normal Normal ( 0-1) mg/dL [facility] Comment on above: . Test Performed by [facility] Mobeon [facility], [address] [place] [id number] [facility] ABO, External Resulton 12-27 ABO, External Result O [facility] Work Phone: C. Trachomatis, External Res ulton 12-27-2020 C. Trachomatis, External Result Negative [facility] Work Phone: HIV, External Resulton 12-27 HIV, External Result Non-Reactive [facility] Work Phone: Hepatitis B, External Result on 12-27-2020 Hep B, External Result Negative [facility] Work Phone: N. Gonorrhoeae, External Res ulton 12-27-2020 N. Gonorrhoeae, External Result Negative [facility] Work Phone: No Panel Informationon 12-27 [facility] Work Phone: [facility] Work Phone: RPR, External Labon 12-28-19 RPR, External Result Non-Reactive [facility] Work Phone: Rh Factor, External Resulton 12-27-2020 Rh Factor, External Result Positive [facility] Work Phone: Rubella Titer, External Resu lton 12-27-2020 Rubella Titer, External Result Immune [facility] Work Phone: Vital Signs Date Time Vital Sign Value Performing Clinician Facility 11-24-2023 11:55-0400 Body temperature 98.6 [degF] Justo Arias [facility] 11-24-2023 11:55-0400 Diastolic blood pressure 85 mm[Hg] Justo Arias [facility] 11-24-2023 11:55-0400 Heart rate 91 /min Justo Arias [facility] 11-24-2023 11:55-0400 Respiratory rate 16 /min Justo Arias [facility] 11-24-2023 11:55-0400 SaO2% (BldA) [Mass fraction] 100 % Justo Ricoe [facility] 11-24-2023 11:55-0400 Systolic blood pressure 137 mm[Hg] Justo Ricoe [facility] 11-24-2023 11:11-0400 Blood Pressure Location Fatoumata Gooden [facility] 11-24-2023 11:11-0400 Diastolic blood pressure 73 mm[Hg] Fatoumata Gooden [facility] 11-24-2023 11:11-0400 Heart rate 78 /min Fatoumata Gooden [facility] 11-24-2023 11:11-0400 Respiratory rate 16 /min Fatoumata Gooden [facility] 11-24-2023 11:11-0400 SaO2% (BldA) [Mass fraction] 99 % Fatoumata Gooden [facility] 11-24-2023 11:11-0400 Systolic blood pressure 124 mm[Hg] Fatoumata Gooden [facility] 11-05-2023 09:01-0400 Heart rate 89 /min Guille Suman [facility] 11-05-2023 09:01-0400 Respiratory rate 16 /min Guille Suman [facility] 11-05-2023 09:01-0400 SaO2% (BldA) [Mass fraction] 98 % Guille Suman [facility] 11-05-2023 08:35-0400 Diastolic blood pressure 80 mm[Hg] Guille Suman [facility] 11-05-2023 08:35-0400 Heart rate 89 /min Guille Suman [facility] 11-05-2023 08:35-0400 Hourly Rounding Guille Suman [facility] 11-05-2023 08:35-0400 Mean blood pressure 92 mm[Hg] Guille Suman [facility] 11-05-2023 08:35-0400 Respiratory rate 16 /min Guille Suman [facility] 11-05-2023 08:35-0400 SaO2% (BldA) [Mass fraction] 99 % Guille Suman [facility] 11-05-2023 08:35-0400 Systolic blood pressure 116 mm[Hg] Guille Suman [facility] 11-05-2023 08:00-0400 Diastolic blood pressure 66 mm[Hg] Guille Suman [facility] 11-05-2023 08:00-0400 Heart rate 82 /min Guille Suman [facility] 11-05-2023 08:00-0400 Mean blood pressure 82 mm[Hg] Guille Suman [facility] 11-05-2023 08:00-0400 Respiratory rate 14 /min Guille Suman [facility] 11-05-2023 08:00-0400 Systolic blood pressure 114 mm[Hg] Guille Suman [facility] 11-05-2023 07:30-0400 Diastolic blood pressure 76 mm[Hg] Guille Suman [facility] 11-05-2023 07:30-0400 Mean blood pressure 91 mm[Hg] Guille Suman [facility] 11-05-2023 07:30-0400 Systolic blood pressure 120 mm[Hg] Guille Suman [facility] 11-05-2023 07:11-0400 Hourly Rounding Guille Suman [facility] Comment on above: Result Comment: denies needs/concerns 11-05-2023 05:00-0400 Blood Pressure Location Guille Suman [facility] 11-05-2023 00:01-0400 Body temperature 98.42 [degF] Guille Will [facility] 11-05-2023 00:01-0400 Heart rate 78 /min Guille Will [facility] 2023 15:02-0400 Body height 160.02 cm PA-C Satish Dean Work Phone: [facility] 2023 15:02-0400 Body temperature 98.1 [degF] PA-C Satish Dean Work Phone: [facility] 2023 15:02-0400 Body weight 63.3 kg PA-C Satish Dean Work Phone: [facility] 2023 15:02-0400 Diastolic blood pressure 77 mm[Hg] PA-C Satish Dean Work Phone: [facility] 2023 15:02-0400 Heart rate 85 /min PA-C Satish Dean Work Phone: [facility] 2023 15:02-0400 Respiratory rate 19 /min PA-C Satish Dean Work Phone: [facility] 2023 15:02-0400 SaO2% (BldA) [Mass fraction] 100 % PA-C Satish Dean Work Phone: [facility] 2023 15:02-0400 Systolic blood pressure 130 mm[Hg] PA-C Satish Dean Work Phone: [facility] 2023 13:58-0400 Blood Pressure Location Suman Myles [facility] 2023 13:58-0400 Body temperature 98.6 [degF] Suman Myles [facility] 2023 13:58-0400 Diastolic blood pressure 70 mm[Hg] Suman Myles [facility] 2023 13:58-0400 Heart rate 101 /min Suman Myles [facility] 2023 13:58-0400 SaO2% (BldA) [Mass fraction] 100 % Sumna Myles [facility] 2023 13:58-0400 Systolic blood pressure 136 mm[Hg] Suman Myles [facility] 11-01-2023 19:36-0400 Body temperature 98.6 [degF] Bruno Estefani [facility] 11-01-2023 19:36-0400 Diastolic blood pressure 83 mm[Hg] Bruno Estefani [facility] 11-01-2023 19:36-0400 Heart rate 93 /min Bruno Estefani [facility] 11-01-2023 19:36-0400 Respiratory rate 17 /min Bruno Estefani [facility] 11-01-2023 19:36-0400 SaO2% (BldA) [Mass fraction] 100 % Bruno Estefani [facility] 11-01-2023 19:36-0400 Systolic blood pressure 140 mm[Hg] Bruno Estefani [facility] 10-31-2023 12:44-0400 Body temperature 98.24 [degF] Justo Arias [facility] 10-31-2023 12:44-0400 Diastolic blood pressure 73 mm[Hg] Justo Arias [facility] 10-31-2023 12:44-0400 Heart rate 95 /min Justo Arias [facility] 10-31-2023 12:44-0400 Respiratory rate 18 /min Justo Arias [facility] 10-31-2023 12:44-0400 SaO2% (BldA) [Mass fraction] 99 % Justo Arias [facility] 10-31-2023 12:44-0400 Systolic blood pressure 130 mm[Hg] Justo Arias [facility] 10-30-2023 16:12-0400 Body temperature 98.24 [degF] [facility] 10-30-2023 16:12-0400 Diastolic blood pressure 96 mm[Hg] [facility] 10-30-2023 16:12-0400 Heart rate 76 /min [facility] 10-30-2023 16:12-0400 Respiratory rate 16 /min [facility] 10-30-2023 16:12-0400 SaO2% (BldA) [Mass fraction] 100 % [facility] 10-30-2023 16:12-0400 Systolic blood pressure 131 mm[Hg] [facility] 10-25-2023 13:42-0400 Body temperature 98.42 [degF] Darren Lomax [facility] 10-25-2023 13:42-0400 Diastolic blood pressure 77 mm[Hg] Darren Dami [facility] 10-25-2023 13:42-0400 Heart rate 79 /min Darren Dami [facility] 10-25-2023 13:42-0400 Respiratory rate 16 /min Darren Dami [facility] [facility] 13:42-0400 SaO2% (BldA) [Mass fraction] 100 % Darren Lomax [facility] 10-25-2023 13:42-0400 Systolic blood pressure 119 mm[Hg] Darren Lomax [facility] 10-21-2023 18:16-0400 Body temperature 98.24 [degF] Justo Arias [facility] 10-21-2023 18:16-0400 Diastolic blood pressure 66 mm[Hg] Justo Arias [facility] 10-21-2023 18:16-0400 Heart rate 64 /min Justo Arias [facility] 10-21-2023 18:16-0400 Respiratory rate 18 /min Justo Arias [facility] 10-21-2023 18:16-0400 SaO2% (BldA) [Mass fraction] 98 % Justo Arias [facility] 10-21-2023 18:16-0400 Systolic blood pressure 133 mm[Hg] Justo Arias [facility] 10-19-2023 12:56-0400 Body temperature 98.78 [degF] [facility] 10-19-2023 12:56-0400 Diastolic blood pressure 73 mm[Hg] [facility] 10-19-2023 12:56-0400 Heart rate 74 /min [facility] 10-19-2023 12:56-0400 Respiratory rate 18 /min [facility] 10-19-2023 12:56-0400 SaO2% (BldA) [Mass fraction] 94 % [facility] 10-19-2023 12:56-0400 Systolic blood pressure 125 mm[Hg] [facility] 10-17-2023 17:33-0400 Body temperature 97.7 [degF] Darren Lomax [facility] 10-17-2023 17:33-0400 Diastolic blood pressure 83 mm[Hg] Darren Lomax [facility] 10-17-2023 17:33-0400 Heart rate 75 /min Darren Lomax [facility] 10-17-2023 17:33-0400 Respiratory rate 18 /min Darren Lomax [facility] 10-17-2023 17:33-0400 SaO2% (BldA) [Mass fraction] 100 % Darren Lomax [facility] 10-17-2023 17:33-0400 Systolic blood pressure 126 mm[Hg] Darren Lomax [facility] 10-05-2023 19:24-0400 Body temperature 98.42 [degF] Bruno Estefani [facility] 10-05-2023 19:24-0400 Diastolic blood pressure 73 mm[Hg] Bruno Estefani [facility] 10-05-2023 19:24-0400 Heart rate 107 /min Bruno Estefani [facility] 10-05-2023 19:24-0400 Respiratory rate 18 /min Bruno Estefani [facility] 10-05-2023 19:24-0400 SaO2% (BldA) [Mass fraction] 98 % Bruno Estefani [facility] 10-05-2023 19:24-0400 Systolic blood pressure 116 mm[Hg] Bruno Estefani [facility] 10-02-2023 07:47-0400 Diastolic blood pressure 69 mm[Hg] Kaylinn Dokken [facility] 10-02-2023 07:47-0400 Heart rate 93 /min Kaylinn Dokken [facility] 10-02-2023 07:47-0400 Mean blood pressure 86 mm[Hg] Kaylinn Dokken [facility] 10-02-2023 07:47-0400 Respiratory rate 18 /min Kaylinn Dokken [facility] 10-02-2023 07:47-0400 SaO2% (BldA) [Mass fraction] 99 % Kaylinn Dokken [facility] 10-02-2023 07:47-0400 Systolic blood pressure 119 mm[Hg] Kaylinn Dokken [facility] 10-02-2023 06:59-0400 Diastolic blood pressure 70 mm[Hg] Kaylinn Dokken [facility] 10-02-2023 06:59-0400 Heart rate 81 /min Kaylinn Dokken [facility] 10-02-2023 06:59-0400 Mean blood pressure 85 mm[Hg] Kaylinn Dokken [facility] 10-02-2023 06:59-0400 Respiratory rate 16 /min Kaylinn Dokken [facility] 10-02-2023 06:59-0400 SaO2% (BldA) [Mass fraction] 97 % Kaylinn Dokken [facility] 10-02-2023 06:59-0400 Systolic blood pressure 114 mm[Hg] Kaylinn Dokken [facility] 10-02-2023 06:28-0400 Body temperature 98.06 [degF] Wilmainn Dokken [facility] 10-02-2023 06:28-0400 Diastolic blood pressure 72 mm[Hg] Kaylinn Dokken [facility] 10-02-2023 06:28-0400 Heart rate 98 /min Bettinaylinn Dokken [facility] 10-02-2023 06:28-0400 Respiratory rate 18 /min Wilmainn Dokken [facility] 10-02-2023 06:28-0400 SaO2% (BldA) [Mass fraction] 99 % Wilmainn Dokken [facility] 10-02-2023 06:28-0400 Systolic blood pressure 142 mm[Hg] Bettinaylinn Dokken [facility] 09-27-2023 11:34-0400 Body height 160.02 cm PA-C Satish Dean Work Phone: [facility] 09-27-2023 11:34-0400 Body temperature 98 [degF] PA-C Satish Dean Work Phone: [facility] 09-27-2023 11:34-0400 Body weight 65 kg PA-C Satish Dean Work Phone: [facility] 09-27-2023 11:34-0400 Diastolic blood pressure 74 mm[Hg] PA-C Satish Dean Work Phone: [facility] 09-27-2023 11:34-0400 Heart rate 79 /min PA-C Satish Dean Work Phone: [facility] 09-27-2023 11:34-0400 Respiratory rate 20 /min PA-C Satish Dean Work Phone: [facility] 09-27-2023 11:34-0400 SaO2% (BldA) [Mass fraction] 100 % TI Dean Work Phone: [facility] 09-27-2023 11:34-0400 Systolic blood pressure 133 mm[Hg] TI Dean Work Phone: [facility] 09-27-2023 10:31-0400 Body temperature 98.6 [degF] Darren Dami [facility] 09-27-2023 10:31-0400 Diastolic blood pressure 76 mm[Hg] Darren Dami [facility] 09-27-2023 10:31-0400 Heart rate 80 /min Darren Dami [facility] 09-27-2023 10:31-0400 Respiratory rate 16 /min Darren Dami [facility] 09-27-2023 10:31-0400 SaO2% (BldA) [Mass fraction] 100 % Darren Dami [facility] 09-27-2023 10:31-0400 Systolic blood pressure 127 mm[Hg] Darren Dami [facility] 09-26-2023 15:20-0400 Body temperature 98.06 [degF] Darren Dami [facility] 09-26-2023 15:20-0400 Diastolic blood pressure 80 mm[Hg] Darren Dami [facility] 09-26-2023 15:20-0400 Heart rate 78 /min Darren Dami [facility] 09-26-2023 15:20-0400 Respiratory rate 18 /min Darren Dami [facility] 09-26-2023 15:20-0400 SaO2% (BldA) [Mass fraction] 100 % Darren Lomax [facility] 09-26-2023 15:20-0400 Systolic blood pressure 137 mm[Hg] Darren Lomax [facility] 09-24-2023 15:33-0400 Body temperature 98.24 [degF] Guille Will [facility] 09-24-2023 15:33-0400 Diastolic blood pressure 78 mm[Hg] Guille Will [facility] 09-24-2023 15:33-0400 Heart rate 98 /min Guille Will [facility] 09-24-2023 15:33-0400 Respiratory rate 18 /min Guille Will [facility] 09-24-2023 15:33-0400 SaO2% (BldA) [Mass fraction] 100 % Guille Will [facility] 09-24-2023 15:33-0400 Systolic blood pressure 116 mm[Hg] Guille Will [facility] 09-20-2023 15:30-0400 Diastolic blood pressure 75 mm[Hg] Justo Arias [facility] 09-20-2023 15:30-0400 Heart rate 98 /min Justo Arias [facility] 09-20-2023 15:30-0400 Mean blood pressure 91 mm[Hg] Justo Ricoe [facility] 09-20-2023 15:30-0400 Respiratory rate 18 /min Justo Arias [facility] 09-20-2023 15:30-0400 SaO2% (BldA) [Mass fraction] 100 % Justo Arias [facility] 09-20-2023 15:30-0400 Systolic blood pressure 124 mm[Hg] Justo Hugo [facility] 09-20-2023 14:30-0400 Diastolic blood pressure 73 mm[Hg] Justo Hugo [facility] 09-20-2023 14:30-0400 Heart rate 80 /min Justo Hugo [facility] 09-20-2023 14:30-0400 Mean blood pressure 93 mm[Hg] Justo Hugo [facility] 09-20-2023 14:30-0400 Respiratory rate 18 /min Justo Hugo [facility] 09-20-2023 14:30-0400 SaO2% (BldA) [Mass fraction] 100 % Justo Hugo [facility] 09-20-2023 14:30-0400 Systolic blood pressure 132 mm[Hg] Justo Hugo [facility] 09-20-2023 13:30-0400 Diastolic blood pressure 67 mm[Hg] Justo Hugo [facility] 09-20-2023 13:30-0400 Heart rate 76 /min Justo Hugo [facility] 09-20-2023 13:30-0400 Mean blood pressure 82 mm[Hg] Justo Hugo [facility] 09-20-2023 13:30-0400 Respiratory rate 18 /min Justo Hugo [facility] 09-20-2023 13:30-0400 SaO2% (BldA) [Mass fraction] 100 % Justo Hugo [facility] 09-20-2023 13:30-0400 Systolic blood pressure 112 mm[Hg] Justo Arias [facility] 09-20-2023 12:33-0400 Body temperature 99.68 [degF] Justo Arias [facility] 09-20-2023 12:33-0400 Heart rate 81 /min Justo Arias [facility] 09-17-2023 05:08-0400 Diastolic blood pressure 65 mm[Hg] Kaylinn Dokken [facility] 09-17-2023 05:08-0400 Heart rate 94 /min Kaylinn Dokken [facility] 09-17-2023 05:08-0400 Mean blood pressure 79 mm[Hg] Kaylinn Dokken [facility] 09-17-2023 05:08-0400 Respiratory rate 17 /min Kaylinn Dokken [facility] 09-17-2023 05:08-0400 SaO2% (BldA) [Mass fraction] 99 % Kaylinn Dokken [facility] 09-17-2023 05:08-0400 Systolic blood pressure 108 mm[Hg] Kaylinn Dokken [facility] 09-17-2023 04:31-0400 Body temperature 98.42 [degF] Kaylinn Dokken [facility] 09-17-2023 04:31-0400 Diastolic blood pressure 76 mm[Hg] Kaylinn Dokken [facility] 09-17-2023 04:31-0400 Heart rate 94 /min Kaylinn Dokken [facility] 09-17-2023 04:31-0400 Respiratory rate 16 /min Vivian Ochoa [facility] 09-17-2023 04:31-0400 SaO2% (BldA) [Mass fraction] 99 % Vivian Ochoa [facility] 09-17-2023 04:31-0400 Systolic blood pressure 134 mm[Hg] Vivian Ochoa [facility] 09-15-2023 08:39-0400 Blood Pressure Location Fatoumata Gooden [facility] 09-15-2023 08:39-0400 Diastolic blood pressure 76 mm[Hg] Fatoumata Gooden [facility] 09-15-2023 08:39-0400 Heart rate 106 /min Fatoumata Gooden [facility] 09-15-2023 08:39-0400 SaO2% (BldA) [Mass fraction] 99 % Fatoumata Gooden [facility] 09-15-2023 08:39-0400 Systolic blood pressure 110 mm[Hg] Fatoumata Gooden [facility] 09-14-2023 11:08-0400 Body temperature 98.24 [degF] Darren Lomax [facility] 09-14-2023 11:08-0400 Diastolic blood pressure 80 mm[Hg] Darren Lomax [facility] 09-14-2023 11:08-0400 Heart rate 129 /min Darren Lomax [facility] 09-14-2023 11:08-0400 Respiratory rate 16 /min Darren Lomax [facility] 09-14-2023 11:08-0400 SaO2% (BldA) [Mass fraction] 98 % Darren Lomax [facility] 09-14-2023 11:08-0400 Systolic blood pressure 120 mm[Hg] Darren Lomax [facility] 09-04-2023 12:01-0400 Body height 160.02 cm PA-C Satish Dean Work Phone: [facility] 09-04-2023 12:01-0400 Body temperature 98 [degF] PA-C Satish Dean Work Phone: [facility] 09-04-2023 12:01-0400 Body weight 66.7 kg PA-C Satishsheela Dean Work Phone: [facility] 09-04-2023 12:01-0400 Diastolic blood pressure 70 mm[Hg] PA-C Satishsheela Dean Work Phone: [facility] 09-04-2023 12:01-0400 Heart rate 72 /min PA-C Satish Dean Work Phone: [facility] 09-04-2023 12:01-0400 Respiratory rate 17 /min PA-C Satish Dean Work Phone: [facility] 09-04-2023 12:01-0400 SaO2% (BldA) [Mass fraction] 100 % PA-C Satishsheela Dean Work Phone: [facility] 09-04-2023 12:01-0400 Systolic blood pressure 119 mm[Hg] PA-C Satish Dean Work Phone: [facility] 08-20-2023 15:04-0400 Body temperature 98.5 [degF] PA-C Satish Dean Work Phone: [facility] 08-20-2023 15:04-0400 Diastolic blood pressure 70 mm[Hg] PA-C Satish Dean Work Phone: [facility] 08-20-2023 15:04-0400 Heart rate 72 /min PAPaulo Dean Work Phone: [facility] 08-20-2023 15:04-0400 Respiratory rate 18 /min TI Dean Work Phone: [facility] 08-20-2023 15:04-0400 SaO2% (BldA) [Mass fraction] 100 % PAPaulo Dean Work Phone: [facility] 08-20-2023 15:04-0400 Systolic blood pressure 119 mm[Hg] PAPaulo Dean Work Phone: [facility] 08-20-2023 12:52-0400 Body height 160.02 cm TI Dean Work Phone: [facility] 08-20-2023 12:52-0400 Body weight 64.3 kg PAPaulo Dean Work Phone: [facility] 08-18-2023 10:29-0400 Body temperature 98.42 [degF] Justo Arias [facility] 08-18-2023 10:29-0400 Diastolic blood pressure 69 mm[Hg] Justo Arias [facility] 08-18-2023 10:29-0400 Heart rate 82 /min Justo Arias [facility] 08-18-2023 10:29-0400 Respiratory rate 18 /min Justo Arias [facility] 08-18-2023 10:29-0400 SaO2% (BldA) [Mass fraction] 99 % Justo Arias [facility] 08-18-2023 10:29-0400 Systolic blood pressure 119 mm[Hg] Justo Arias [facility] 08-14-2023 16:56-0400 Diastolic blood pressure 81 mm[Hg] [facility] 08-14-2023 16:56-0400 Heart rate 89 /min [facility] 08-14-2023 16:56-0400 Mean blood pressure 101 mm[Hg] [facility] 08-14-2023 16:56-0400 Respiratory rate 15 /min [facility] 08-14-2023 16:56-0400 SaO2% (BldA) [Mass fraction] 98 % [facility] 08-14-2023 16:56-0400 Systolic blood pressure 141 mm[Hg] [facility] 08-14-2023 14:42-0400 Body temperature 98.24 [degF] [facility] 08-14-2023 14:42-0400 Diastolic blood pressure 81 mm[Hg] [facility] 08-14-2023 14:42-0400 Heart rate 84 /min [facility] 08-14-2023 14:42-0400 Respiratory rate 18 /min [facility] 08-14-2023 14:42-0400 SaO2% (BldA) [Mass fraction] 98 % [facility] 08-14-2023 14:42-0400 Systolic blood pressure 146 mm[Hg] [facility] 08-10-2023 11:36-0400 Body temperature 98.6 [degF] [facility] 08-10-2023 11:36-0400 Diastolic blood pressure 108 mm[Hg] [facility] 08-10-2023 11:36-0400 Heart rate 115 /min [facility] 08-10-2023 11:36-0400 Respiratory rate 16 /min [facility] 08-10-2023 11:36-0400 SaO2% (BldA) [Mass fraction] 100 % [facility] 08-10-2023 11:36-0400 Systolic blood pressure 140 mm[Hg] [facility]-05-[facility] 18:10-0400 Diastolic blood pressure 73 mm[Hg] PA-C Satish Dean Work Phone: [facility] 08-05-2023 18:10-0400 Heart rate 87 /min PA-C Satish Dean Work Phone: [facility] 08-05-2023 18:10-0400 Respiratory rate 18 /min PA-C Satish Dean Work Phone: [facility] 08-05-2023 18:10-0400 SaO2% (BldA) [Mass fraction] 98 % PA-C Satish Dean Work Phone: [facility] 08-05-2023 18:10-0400 Systolic blood pressure 130 mm[Hg] PA-C Satish Dean Work Phone: [facility] 08-05-2023 16:00-0400 Body height 160.02 cm PA-C Satish Dean Work Phone: [facility] 08-05-2023 16:00-0400 Body temperature 98.1 [degF] PA-C Satish Dean Work Phone: [facility] 08-05-2023 16:00-0400 Body weight 65.7 kg PA-C Satish Dean Work Phone: [facility] 07-30-2023 13:07-0400 Blood Pressure Location LANETTE LUI [facility] 07-30-2023 13:07-0400 Body temperature 98.42 [degF] LANETTE LUI [facility] 07-30-2023 13:07-0400 Diastolic blood pressure 82 mm[Hg] LANETTE LUI [facility] 07-30-2023 13:07-0400 Heart rate 91 /min LANETTE LUI [facility] 07-30-2023 13:07-0400 SaO2% (BldA) [Mass fraction] 98 % LANETTE LUI [facility] 07-30-2023 13:07-0400 Systolic blood pressure 120 mm[Hg] LANETTE CORTEZTIZ [facility] 07-26-2023 12:12-0400 Diastolic blood pressure 69 mm[Hg] Darren Dami [facility] 07-26-2023 12:12-0400 Heart rate 93 /min Darren Dami [facility] 07-26-2023 12:12-0400 Mean blood pressure 89 mm[Hg] Darren Dami [facility] 07-26-2023 12:12-0400 Respiratory rate 14 /min Darren Dami [facility] 07-26-2023 12:12-0400 SaO2% (BldA) [Mass fraction] 100 % Darren Dami [facility] 07-26-2023 12:12-0400 Systolic blood pressure 128 mm[Hg] Darren Dami [facility] 07-26-2023 11:15-0400 Diastolic blood pressure 60 mm[Hg] Darren Dami [facility] 07-26-2023 11:15-0400 Heart rate 89 /min Darren Dami [facility] 07-26-2023 11:15-0400 Mean blood pressure 80 mm[Hg] Darren Dami [facility] 07-26-2023 11:15-0400 Respiratory rate 16 /min Darren Dami [facility] 07-26-2023 11:15-0400 SaO2% (BldA) [Mass fraction] 100 % Darren Dami [facility] 07-26-2023 11:15-0400 Systolic blood pressure 120 mm[Hg] Darren Dami [facility] 07-26-2023 10:30-0400 Diastolic blood pressure 73 mm[Hg] Darren Dami [facility] 07-26-2023 10:30-0400 Heart rate 83 /min Darren Dami [facility] 07-26-2023 10:30-0400 Mean blood pressure 87 mm[Hg] Darren Dami [facility] 07-26-2023 10:30-0400 Respiratory rate 20 /min Darren Dami [facility] 07-26-2023 10:30-0400 SaO2% (BldA) [Mass fraction] 100 % Darren Dami [facility] 07-26-2023 10:30-0400 Systolic blood pressure 114 mm[Hg] Darren Dami [facility] 07-26-2023 09:40-0400 Body temperature 98.78 [degF] Darren Dami [facility] 07-26-2023 09:40-0400 Heart rate 85 /min Darren Dami [facility] 07-26-2023 09:40-0400 Respiratory rate 16 /min Darren Dami [facility] 07-19-2023 10:59-0400 Diastolic blood pressure 73 mm[Hg] Astrit [facility] 07-19-2023 10:59-0400 Heart rate 102 /min [facility] 07-19-2023 10:59-0400 Mean blood pressure 86 mm[Hg] [facility] 07-19-2023 10:59-0400 Respiratory rate 16 /min [facility] 07-19-2023 10:59-0400 SaO2% (BldA) [Mass fraction] 100 % [facility] 07-19-2023 10:59-0400 Systolic blood pressure 112 mm[Hg] [facility] 07-19-2023 10:32-0400 SaO2% (BldA) [Mass fraction] 100 % [facility] 07-19-2023 09:30-0400 Body temperature 98.06 [degF] [facility] 07-19-2023 09:30-0400 Diastolic blood pressure 75 mm[Hg] [facility] 07-19-2023 09:30-0400 Heart rate 114 /min [facility] 07-19-2023 09:30-0400 Respiratory rate 16 /min [facility] 07-19-2023 09:30-0400 SaO2% (BldA) [Mass fraction] 100 % [facility] 07-19-2023 09:30-0400 Systolic blood pressure 130 mm[Hg] [facility] 07-12-2023 19:49-0400 Diastolic blood pressure 76 mm[Hg] Justo Arias [facility] 07-12-2023 19:49-0400 Heart rate 112 /min Justo Arias [facility] 07-12-2023 19:49-0400 Mean blood pressure 95 mm[Hg] Justo Arias [facility] 07-12-2023 19:49-0400 Respiratory rate 20 /min Justo Ricoe [facility] 07-12-2023 19:49-0400 SaO2% (BldA) [Mass fraction] 98 % Justo Hugo [facility] 07-12-2023 19:49-0400 Systolic blood pressure 132 mm[Hg] Justo Hugo [facility] 07-12-2023 19:29-0400 Diastolic blood pressure 65 mm[Hg] Justo Hugo [facility] 07-12-2023 19:29-0400 Heart rate 99 /min Justo Hugo [facility] 07-12-2023 19:29-0400 Mean blood pressure 81 mm[Hg] Justo Ricoe [facility] 07-12-2023 19:29-0400 Respiratory rate 8 /min Justo Hugo [facility] 07-12-2023 19:29-0400 SaO2% (BldA) [Mass fraction] 99 % Justo Hugo [facility] 07-12-2023 19:29-0400 Systolic blood pressure 113 mm[Hg] Justo Ricoe [facility] 07-12-2023 17:38-0400 Body temperature 98.6 [degF] Justo Hugo [facility] 07-12-2023 17:38-0400 Diastolic blood pressure 72 mm[Hg] Justo Hugo [facility] 07-12-2023 17:38-0400 Heart rate 125 /min Justo Hugo [facility] 07-12-2023 17:38-0400 Respiratory rate 16 /min Justo Hugo [facility] 07-12-2023 17:38-0400 SaO2% (BldA) [Mass fraction] 98 % Justo Arias [facility] 07-12-2023 17:38-0400 Systolic blood pressure 129 mm[Hg] Justo Arias [facility] 07-09-2023 16:21-0400 Blood Pressure Location Amos Castellon [facility] 07-09-2023 16:21-0400 Body temperature 98.42 [degF] Amos Castellon [facility] 07-09-2023 16:21-0400 Diastolic blood pressure 74 mm[Hg] Amos Castellon [facility] 07-09-2023 16:21-0400 Heart rate 86 /min Amos Castellon [facility] 07-09-2023 16:21-0400 SaO2% (BldA) [Mass fraction] 99 % Amos Castellon [facility] 07-09-2023 16:21-0400 Systolic blood pressure 122 mm[Hg] Amos Castellon [facility] 07-07-2023 13:05-0400 Diastolic blood pressure 68 mm[Hg] Justo Arias [facility] 07-07-2023 13:05-0400 Heart rate 84 /min Justo Arias [facility] 07-07-2023 13:05-0400 Mean blood pressure 92 mm[Hg] Justo Arias [facility] 07-07-2023 13:05-0400 Respiratory rate 16 /min Justo Arias [facility] 07-07-2023 13:05-0400 SaO2% (BldA) [Mass fraction] 98 % Justo Arias [facility] 07-07-2023 13:05-0400 Systolic blood pressure 139 mm[Hg] Justo Arias [facility] 07-07-2023 12:02-0400 Heart rate 80 /min Justo Ricoe [facility] 07-07-2023 11:09-0400 Body temperature 99.32 [degF] Justo Arias [facility] 07-07-2023 11:09-0400 Diastolic blood pressure 60 mm[Hg] Justo Arias [facility] 07-07-2023 11:09-0400 Heart rate 106 /min Justo Arias [facility] 07-07-2023 11:09-0400 Respiratory rate 16 /min Justo Arias [facility] 07-07-2023 11:09-0400 SaO2% (BldA) [Mass fraction] 100 % Justo Arias [facility] 07-07-2023 11:09-0400 Systolic blood pressure 129 mm[Hg] Justo Arias [facility] 07-07-2023 10:04-0400 Blood Pressure Location LANETTE CORTEZTIZ [facility] 07-07-2023 10:04-0400 Body temperature 98.24 [degF] LANETTE CORTEZTIZ [facility] 07-07-2023 10:04-0400 Diastolic blood pressure 73 mm[Hg] LANETTE LUI [facility] 07-07-2023 10:04-0400 Heart rate 88 /min LANETTE LUI [facility] 07-07-2023 10:04-0400 SaO2% (BldA) [Mass fraction] 99 % LANETTE LUI [facility] 07-07-2023 10:04-0400 Systolic blood pressure 117 mm[Hg] LANETTE LUI [facility] 06-29-2023 08:20-0500 Diastolic blood pressure 65 mm[Hg] Bruno Estefani [facility] 06-29-2023 08:20-0500 Heart rate 106 /min Bruno Estefani [facility] 06-29-2023 08:20-0500 Mean blood pressure 79 mm[Hg] Bruno Estefani [facility] 06-29-2023 08:20-0500 Respiratory rate 16 /min Bruno Estefani [facility] 06-29-2023 08:20-0500 SaO2% (BldA) [Mass fraction] 98 % Bruno Estefani [facility] 06-29-2023 08:20-0500 Systolic blood pressure 106 mm[Hg] Bruno Estefani [facility] 06-29-2023 07:16-0500 Diastolic blood pressure 67 mm[Hg] Bruno Estefani [facility] 06-29-2023 07:16-0500 Heart rate 91 /min Bruno Estefani [facility] 06-29-2023 07:16-0500 Mean blood pressure 80 mm[Hg] Bruno Estefani [facility] 06-29-2023 07:16-0500 Respiratory rate 15 /min Bruno Estefani [facility] 06-29-2023 07:16-0500 SaO2% (BldA) [Mass fraction] 98 % Bruno Estefani [facility] 06-29-2023 07:16-0500 Systolic blood pressure 106 mm[Hg] Bruno Estefani [facility] 06-29-2023 06:18-0500 Body temperature 98.78 [degF] Bruno Estefani [facility] 06-29-2023 06:18-0500 Diastolic blood pressure 66 mm[Hg] Bruno Estefani [facility] 06-29-2023 06:18-0500 Heart rate 104 /min Bruno Estefani [facility] 06-29-2023 06:18-0500 Respiratory rate 20 /min Bruno Estefani [facility] 06-29-2023 06:18-0500 SaO2% (BldA) [Mass fraction] 100 % Bruno Estefani [facility] 06-29-2023 06:18-0500 Systolic blood pressure 114 mm[Hg] Bruno Estefani [facility] 06-14-2023 08:51-0500 Body temperature 98.24 [degF] Justo Arias [facility] 06-14-2023 08:51-0500 Diastolic blood pressure 65 mm[Hg] Justo Hugo [facility] 06-14-2023 08:51-0500 Heart rate 84 /min Justo Hugo [facility] 06-14-2023 08:51-0500 Respiratory rate 16 /min Justo Arias [facility] 06-14-2023 08:51-0500 SaO2% (BldA) [Mass fraction] 100 % Justo Arias [facility] 06-14-2023 08:51-0500 Systolic blood pressure 123 mm[Hg] Justo Arias [facility] 05-31-2023 11:17-0500 Diastolic blood pressure 74 mm[Hg] [facility] 05-31-2023 11:17-0500 Heart rate 104 /min [facility] 05-31-2023 11:17-0500 Mean blood pressure 90 mm[Hg] [facility] 05-31-2023 11:17-0500 Respiratory rate 16 /min [facility] 05-31-2023 11:17-0500 SaO2% (BldA) [Mass fraction] 100 % [facility] 05-31-2023 11:17-0500 Systolic blood pressure 123 mm[Hg] [facility] 05-31-2023 10:59-0500 Hourly Rounding [facility] 05-31-2023 10:59-0500 Promise to Return [facility] 05-31-2023 10:59-0500 SaO2% (BldA) [Mass fraction] 99 % [facility] 05-31-2023 10:30-0500 Diastolic blood pressure 69 mm[Hg] [facility] 05-31-2023 10:30-0500 Heart rate 123 /min [facility] 05-31-2023 10:30-0500 Mean blood pressure 84 mm[Hg] [facility] 05-31-2023 10:30-0500 Respiratory rate 16 /min [facility] 05-31-2023 10:30-0500 SaO2% (BldA) [Mass fraction] 98 % [facility] 05-31-2023 10:30-0500 Systolic blood pressure 113 mm[Hg] [facility] 05-31-2023 09:56-0500 Hourly Rounding [facility] 05-31-2023 09:56-0500 Promise to Return [facility] 05-31-2023 09:30-0500 Diastolic blood pressure 71 mm[Hg] [facility] 05-31-2023 09:30-0500 Heart rate 110 /min [facility] 05-31-2023 09:30-0500 Mean blood pressure 89 mm[Hg] [facility] 05-31-2023 09:30-0500 Respiratory rate 16 /min [facility] 05-31-2023 09:30-0500 Systolic blood pressure 125 mm[Hg] [facility] 05-31-2023 08:10-0500 Body temperature 98.06 [degF] [facility] 05-31-2023 08:10-0500 Heart rate 97 /min [facility] 05-11-2023 11:30-0500 Blood Pressure Location [facility] 05-11-2023 11:30-0500 Body temperature 98.42 [degF] [facility] 05-11-2023 11:30-0500 Diastolic blood pressure 68 mm[Hg] [facility] 05-11-2023 11:30-0500 Heart rate 103 /min [facility] 05-11-2023 11:30-0500 Respiratory rate 18 /min [facility] 05-11-2023 11:30-0500 SaO2% (BldA) [Mass fraction] 99 % [facility] 05-11-2023 11:30-0500 Systolic blood pressure 126 mm[Hg] Geovany Ramirez [facility] 05-03-2023 12:20-0500 Blood Pressure Location Isaac Stephen [facility] 05-03-2023 12:20-0500 Body temperature 98.06 [degF] Isaac Stephen [facility] 05-03-2023 12:20-0500 Diastolic blood pressure 70 mm[Hg] Isaac Stephen [facility] 05-03-2023 12:20-0500 Heart rate 110 /min Isaac Stephen [facility] 05-03-2023 12:20-0500 SaO2% (BldA) [Mass fraction] 98 % Isaac Stephen [facility] 05-03-2023 12:20-0500 Systolic blood pressure 114 mm[Hg] Isaac Stephen [facility] 04-15-2023 11:34-0500 Body temperature 98.24 [degF] Justo Arias [facility] 04-15-2023 11:34-0500 Diastolic blood pressure 78 mm[Hg] Justo Arias [facility] 04-15-2023 11:34-0500 Heart rate 98 /min Justo Arias [facility] 04-15-2023 11:34-0500 Respiratory rate 18 /min Justo Arias [facility] 04-15-2023 11:34-0500 SaO2% (BldA) [Mass fraction] 97 % Justo Arias [facility] 04-15-2023 11:34-0500 Systolic blood pressure 119 mm[Hg] Justo Arias [facility] 03-31-2023 11:24-0500 Body height 157.5 cm Regi Milton PA-C Work Phone: [facility] 03-31-2023 11:24-0500 Body mass index (BMI) [Ratio] 23.81 kg/m2 Regi Milton PA-C Work Phone: [facility] 03-31-2023 11:24-0500 Body weight 59.06 kg Regi Milton PA-C Work Phone: [facility] 03-30-2023 15:41-0500 Body temperature 98.6 [degF] Guille Suman [facility] 03-30-2023 15:41-0500 Diastolic blood pressure 90 mm[Hg] Guille Suman [facility] 03-30-2023 15:41-0500 Heart rate 85 /min Guille Suman [facility] 03-30-2023 15:41-0500 Respiratory rate 20 /min Guille Suman [facility] 03-30-2023 15:41-0500 SaO2% (BldA) [Mass fraction] 100 % Guille Suman [facility] 03-30-2023 15:41-0500 Systolic blood pressure 147 mm[Hg] Guille Suman [facility] 03-24-2023 11:45-0500 Body temperature 97.7 [degF] Thiago Cuellar MD Work Phone: [facility] 03-24-2023 11:45-0500 Diastolic blood pressure 59 mm[Hg] Thiago Cuellar MD Work Phone: [facility] 03-24-2023 11:45-0500 Heart rate 81 /min Thiago Cuellar MD Work Phone: [facility] 03-24-2023 11:45-0500 Respiratory rate 20 /min Thiago Cuellar MD Work Phone: [facility] 03-24-2023 11:45-0500 SaO2% (BldA) [Mass fraction] 97 % Thiago Cuellar MD Work Phone: [facility] 03-24-2023 11:45-0500 Systolic blood pressure 120 mm[Hg] Thiago Cuellar MD Work Phone: [facility] 03-24-2023 07:14-0500 Body height 157.5 cm Thiago Cuellar MD Work Phone: [facility] 03-24-2023 07:14-0500 Body mass index (BMI) [Ratio] 23.59 kg/m2 Thiago Cuellar MD Work Phone: [facility] 03-24-2023 07:14-0500 Body weight 58.5 kg Thiago Cuellar MD Work Phone: [facility] 03-11-2023 17:03-0500 Blood Pressure Location Amos Castellon [facility] 03-11-2023 17:03-0500 Body temperature 98.96 [degF] Amos Castellon [facility] 03-11-2023 17:03-0500 Diastolic blood pressure 68 mm[Hg] Amos Castellon [facility] 03-11-2023 17:03-0500 Heart rate 82 /min Amos Castellon [facility] 03-11-2023 17:03-0500 SaO2% (BldA) [Mass fraction] 98 % Amos Castellon [facility] 03-11-2023 17:03-0500 Systolic blood pressure 112 mm[Hg] Amos Castellon [facility] 02-06-2023 11:20-0400 Body height 157.5 cm Thiago Cuelalr MD Work Phone: [facility] 02-06-2023 11:20-0400 Body mass index (BMI) [Ratio] 24.09 kg/m2 Thiago Cuellar MD Work Phone: [facility] 02-06-2023 11:20-0400 Body weight 59.74 kg Thiago Cuellar MD Work Phone: [facility] 01-24-2023 09:25-0400 Blood Pressure Location Rojelio SpasiveriCAR [facility] 01-24-2023 09:25-0400 Body temperature 98.6 [degF] Rojelio Spasic [facility] 01-24-2023 09:25-0400 Diastolic blood pressure 70 mm[Hg] Rojelio Spasic [facility] 01-24-2023 09:25-0400 Heart rate 83 /min Rojelio Spasic [facility] 01-24-2023 09:25-0400 SaO2% (BldA) [Mass fraction] 99 % Rojelio Spasic [facility] 01-24-2023 09:25-0400 Systolic blood pressure 122 mm[Hg] Rojelio Spasic [facility] 01-15-2023 13:36-0400 Blood Pressure Location Rojelio Spasic [facility] 01-15-2023 13:36-0400 Body temperature 98.6 [degF] Rojelio Spasic [facility] 01-15-2023 13:36-0400 Diastolic blood pressure 76 mm[Hg] Rojelio Spasic [facility] 01-15-2023 13:36-0400 Heart rate 71 /min Rojelio Spasic [facility] 01-15-2023 13:36-0400 SaO2% (BldA) [Mass fraction] 98 % Rojelio Spasic [facility] 01-15-2023 13:36-0400 Systolic blood pressure 122 mm[Hg] Rojelio Spasic [facility] 11-09-2022 14:14-0400 Blood Pressure Location Amos Castellon [facility] 11-09-2022 14:14-0400 Body temperature 98.6 [degF] Amos Typsey [facility] 11-09-2022 14:14-0400 Diastolic blood pressure 70 mm[Hg] Amos Hilley [facility] 11-09-2022 14:14-0400 Heart rate 70 /min Amos Typsey [facility] 11-09-2022 14:14-0400 SaO2% (BldA) [Mass fraction] 98 % Amosmona TyRavinder [facility] 11-09-2022 14:14-0400 Systolic blood pressure 118 mm[Hg] Amos Typsey [facility] 07-03-2022 08:35-0500 Diastolic blood pressure 88 mm[Hg] [facility] 07-03-2022 08:35-0500 Heart rate 95 /min [facility] 07-03-2022 08:35-0500 Respiratory rate 19 /min [facility] 07-03-2022 08:35-0500 SaO2% (BldA) [Mass fraction] 100 % [facility] 07-03-2022 08:35-0500 Systolic blood pressure 145 mm[Hg] [facility] 06-26-2022 14:19-0500 Blood Pressure Location [facility] 06-26-2022 14:19-0500 Body temperature 98.42 [degF] [facility] 06-26-2022 14:19-0500 Diastolic blood pressure 66 mm[Hg] [facility] 06-26-2022 14:19-0500 Heart rate 107 /min [facility] 06-26-2022 14:19-0500 SaO2% (BldA) [Mass fraction] 98 % [facility] 06-26-2022 14:19-0500 Systolic blood pressure 118 mm[Hg] [facility] 09-14-2021 20:00-0400 Body temperature 98.42 [degF] Darren Lomax [facility] 09-14-2021 20:00-0400 Diastolic blood pressure 64 mm[Hg] Darren Lomax [facility] 09-14-2021 20:00-0400 Heart rate 85 /min Darren Lomax [facility] 09-14-2021 20:00-0400 Mean blood pressure 79 mm[Hg] Darren Lomax [facility] 09-14-2021 20:00-0400 Respiratory rate 17 /min Darren Dami [facility] 09-14-2021 20:00-0400 Systolic blood pressure 108 mm[Hg] Darren Dami [facility] 09-14-2021 19:00-0400 Diastolic blood pressure 60 mm[Hg] Darren Dami [facility] 09-14-2021 19:00-0400 Mean blood pressure 77 mm[Hg] Darern Dami [facility] 09-14-2021 19:00-0400 SaO2% (BldA) [Mass fraction] 99 % Darren Dami [facility] 09-14-2021 19:00-0400 Systolic blood pressure 112 mm[Hg] Darren Dami [facility] 09-14-2021 18:57-0400 SaO2% (BldA) [Mass fraction] 100 % Darren Dami [facility] 09-14-2021 18:56-0400 Hourly Rounding Darren Dami [facility] 09-14-2021 18:56-0400 Promise to Return Darren Dami [facility] 09-14-2021 18:30-0400 Diastolic blood pressure 55 mm[Hg] Darern Dami [facility] 09-14-2021 18:30-0400 Heart rate 79 /min Darren Dami [facility] 09-14-2021 18:30-0400 Mean blood pressure 73 mm[Hg] Darren Dami [facility] 09-14-2021 18:30-0400 Respiratory rate 16 /min Darren Dami [facility] 09-14-2021 18:30-0400 Systolic blood pressure 110 mm[Hg] Darren Lomax [facility] 09-14-2021 17:39-0400 Body temperature 98.6 [degF] Darren Lomax [facility] 09-14-2021 17:39-0400 Heart rate 93 /min Darren Lomax [facility] 09-14-2021 17:39-0400 Respiratory rate 16 /min Darren Lomax [facility] 07-20-2021 11:33-0400 Body temperature 97 [degF] Whitney Barrera MD Work Phone: [facility] 07-20-2021 11:33-0400 Diastolic blood pressure 66 mm[Hg] Whitney Barrera MD Work Phone: [facility] 07-20-2021 11:33-0400 Heart rate 91 /min Whitney Barrera MD Work Phone: [facility] 07-20-2021 11:33-0400 Respiratory rate 18 /min Whitney Barrera MD Work Phone: [facility] 07-20-2021 11:33-0400 SaO2% (BldA) [Mass fraction] 97 % Whitney Barrera MD Work Phone: [facility] 07-20-2021 11:33-0400 Systolic blood pressure 98 mm[Hg] Whitney Barrera MD Work Phone: [facility] 07-19-2021 02:24-0400 Body height 157.5 cm Whitney Barrera MD Work Phone: [facility] 07-19-2021 02:24-0400 Body mass index (BMI) [Ratio] 28.17 kg/m2 Whitney Barrera MD Work Phone: [facility] 07-19-2021 02:24-0400 Body weight 69.85 kg Whitney Barrera MD Work Phone: [facility] Encounters Encounter Date Encounter Type Care Provider Facility Start: 11-24-2023 End: 11-24-2023 ambulatory Ivana Bennett [place] Start: 11-24-2023 End: 11-24-2023 Patient encounter procedure Ivana Bennett [facility] Start: 11-24-2023 End: 11-24-2023 Emergency department patient visit Justo Arias [facility] Start: 11-24-2023 End: 11-24-2023 ambulatory MD Fatoumata Gooden [place] Start: 11-24-2023 End: 11-24-2023 Patient encounter procedure Fatoumata Gooden [facility] Start: 11-06-2023 ambulatory FLORENTIN MORENO Facilyolande ty:[facility] [place] Start: 11-05-2023 ambulatory MD Fatoumata Lala ty:[facility] [place] Start: 11-04-2023 End: 11-05-2023 Emergency department patient visit Guille Will [facility] Start: 11-03-2023 End: 11-04-2023 Pre-admission assessment Fatoumata Gooden [facility] Start: 2023 End: 2023 Emergency department patient visit TI Dean Work Phone: [facility] Work Phone: Start: 2023 End: 2023 ambulatory Suman Myles Facility:[facility] Start: 2023 End: 2023 Patient encounter procedure Suman Myles [facility] Start: 11-01-2023 End: 11-01-2023 Emergency department patient visit Bruno Jara [facility] Start: 10-31-2023 End: 10-31-2023 Emergency department patient visit Justo Arias [place] Start: 10-30-2023 End: 10-30-2023 Emergency department patient visit Mary Jane Palm [facility] Start: 10-25-2023 End: 10-25-2023 Emergency department patient visit Darren Lomax [facility] Start: 10-21-2023 End: 10-21-2023 Emergency department patient visit Justo Arias [facility] Start: 10-19-2023 End: 10-19-2023 [facility] Start: 10-17-2023 End: 10-17-2023 Emergency department patient visit Darren Lomax [facility] Start: 10-17-2023 End: 10-17-2023 ambulatory NEOPIT LUI Facility:[facility] Start: 10-17-2023 End: 10-17-2023 [facility] Start: 10-05-2023 End: 10-05-2023 Emergency department patient visit Bruno Jara [place] Start: 10-02-2023 End: 10-02-2023 Emergency department patient visit Vivian Ochoa [facility] Start: 09-27-2023 End: 09-27-2023 Emergency department patient visit TI Dean Work Phone: [facility] Work Phone: Start: 09-26-2023 End: 09-26-2023 Emergency department patient visit Darren Lomax [facility] Start: 09-24-2023 Emergency department patient visit Guille Will [place] Start: 09-24-2023 End: 09-24-2023 Emergency department patient visit Guille Will [facility] Start: 09-20-2023 End: 09-20-2023 Emergency department patient visit Justo Arias [place] Start: 09-20-2023 End: 09-20-2023 Emergency department patient visit Justo Arias [facility] Start: 09-17-2023 End: 09-17-2023 Emergency department patient visit DO Park Logan Don [place] Start: 09-17-2023 End: 09-17-2023 Emergency department patient visit Bettinaasha Logan Mariamarshalarlene [facility] Start: 09-15-2023 End: 09-16-2023 ambulatory XXXX NONE [place] Start: 09-15-2023 End: 09-15-2023 Patient encounter procedure Fatoumata Gooden [facility] Start: 09-14-2023 End: 09-14-2023 Emergency department patient visit Darren Lomax [place] Start: 09-14-2023 End: 09-14-2023 Emergency department patient visit Darren Lomax [facility] Start: 09-04-2023 End: 09-04-2023 Emergency department patient visit JOSEPHMairaLawrence Dean Work Phone: [facility] Work Phone: Start: 08-28-2023 End: 08-28-2023 Emergency department patient visit LORRI Russo [facility] Start: 08-26-2023 End: 08-26-2023 ambulatory GAYLA DUNBAR Not Available Start: 08-23-2023 End: 08-23-2023 Emergency department patient visit Darren Lomax [place] Start: 08-20-2023 End: 08-20-2023 Emergency department patient visit ANTONIOLawrence Dean Work Phone: [facility] Work Phone: Start: 08-18-2023 End: 08-18-2023 Emergency department patient visit Justo Arias [place] Start: 08-18-2023 End: 08-18-2023 Emergency department patient visit Justo Arias [facility] Start: 08-14-2023 End: 08-14-2023 Emergency department patient visit Mary Jane Palm [place] Start: 08-14-2023 End: 08-14-2023 Emergency department patient visit Mary Jane Palm [facility] Start: 08-10-2023 End: 08-10-2023 Emergency department patient visit Mary Jane Palm [place] Start: 08-10-2023 End: 08-10-2023 Emergency department patient visit Mary Jane Palm [facility] Start: 08-05-2023 End: 08-06-2023 ambulatory SIVAN KONG Not Available Start: 08-05-2023 End: 08-05-2023 Emergency department patient visit JOSEPHMairaLawrence Dean Work Phone: [facility] Work Phone: Start: 08-05-2023 End: 08-05-2023 ambulatory SIVAN Corey CYNDEEIGOR Not Available Start: 07-30-2023 End: 07-31-2023 ambulatory LANETTE LUI Facility:[facility] Start: 07-30-2023 End: 07-30-2023 Patient encounter procedure LANETTE LUI [facility] Start: 07-30-2023 End: 08-07-2023 Pre-admission assessment Ivana Bennett [facility] Start: 07-26-2023 End: 07-26-2023 Emergency department patient visit Darren Lomax [place] Start: 07-26-2023 End: 07-26-2023 Emergency department patient visit Darren Lomax [facility] Start: 07-24-2023 End: 07-30-2023 Pre-admission assessment Ivana Bennett [facility] Start: 07-19-2023 End: 07-19-2023 Emergency department patient visit Chrisraina Hurley Arpita [place] Start: 07-19-2023 End: 07-19-2023 Emergency department patient visit Chrisraina Hurley Arpita [facility] Start: 07-14-2023 End: 08-05-2023 Pre-admission assessment Siomara Nettles [facility] Start: 07-12-2023 End: 07-12-2023 Emergency department patient visit Justo Arias [place] Start: 07-12-2023 End: 07-12-2023 Emergency department patient visit Justo Arias [facility] Start: 07-09-2023 End: 07-10-2023 ambulatory Amos Castellon Facility: [place] Start: 07-09-2023 End: 07-09-2023 Patient encounter procedure Amos Castellon [facility] Start: 07-07-2023 End: 07-07-2023 Emergency department patient visit Justo Arias [place] Start: 07-07-2023 End: 07-08-2023 ambulatory LANETTE LUI [place] Start: 07-07-2023 End: 07-07-2023 Emergency department patient visit Justo Arias [facility] Start: 07-07-2023 End: 07-07-2023 Lab Drop off LANETTE CORTEZTIZ [facility] Start: 07-07-2023 End: 07-07-2023 Patient encounter procedure LANETTE LUI [facility] Start: 06-29-2023 End: 06-29-2023 Emergency department patient visit Bruno Jara [place] Start: 06-29-2023 End: 06-29-2023 Emergency department patient visit Bruno Jara [facility] Start: 06-14-2023 End: 06-14-2023 Emergency department patient visit Justo Arias [place] Start: 06-14-2023 End: 06-14-2023 Emergency department patient visit Justo Arias [facility] Start: 05-31-2023 End: 05-31-2023 Emergency department patient visit Mary Jane Palm [place] Start: 05-31-2023 End: 05-31-2023 [facility] Start: 05-28-2023 End: 07-28-2023 ambulatory Nancy Rose [place] Start: 05-28-2023 End: 05-28-2023 Emergency department patient visit Darren Lomax [place] Start: 05-22-2023 End: 05-23-2023 Pre-admission assessment Nancy Rose [facility] Start: 05-22-2023 End: 05-22-2023 Emergency department patient visit Bruno Jara [place] Start: 05-11-2023 End: 05-12-2023 ambulatory Geovany Ramirez Facility:[facility] Start: 05-11-2023 End: 05-11-2023 Patient encounter procedure Geovany Ramirez [facility] Start: 05-06-2023 End: 05-07-2023 ambulatory Gilbert Valverde [place] Start: 05-03-2023 End: 05-04-2023 ambulatory Isaac Stephen Facility:[facility] Start: 05-03-2023 End: 05-03-2023 Patient encounter procedure Isaac Stephen [facility] Start: 05-01-2023 End: 05-01-2023 ambulatory [facility] Start: 04-15-2023 End: 04-15-2023 Emergency department patient visit Justo Arias [place] Start: 04-15-2023 End: 04-15-2023 Emergency department patient visit Justo Arias [facility] Start: 04-11-2023 End: 04-11-2023 Emergency department patient visit Guille Will [place] Start: 03-31-2023 End: 03-31-2023 ambulatory [facility] Start: 03-31-2023 End: 03-31-2023 Postop follow up visit related to original px Regi Eatonjose LUKE Work Phone: [facility] Comment on above: Deviated septum (Maggie lavonne Dx); Nasal congestion; Difficulty breathing; Collapse of nasal valve; Hypertrophy of inferior nasal turbinate Start: 03-30-2023 End: 03-30-2023 Emergency department patient visit [place]ille [place]: 03-30-2023 End: 03-30-2023 Emergency department patient visit [facility] Start: 03-24-2023 End: 03-24-2023 ambulatory [facility] Start: 03-24-2023 End: 03-24-2023 Subsequent hospital visit by physician Thiago Cuellar MD Work Phone: [facility] Comment on above: Nasal septal deviati on (Primary Dx); Acute post-operative pain Start: 03-22-2023 End: 03-22-2023 ambulatory ANABELA LILLYCHOLO Not Available Start: 03-11-2023 End: 03-12-2023 ambulatory Amos Castellon Facility:[facility] Start: 03-11-2023 End: 03-11-2023 Patient encounter procedure Amos Castellon [facility] Start: 02-06-2023 End: 02-06-2023 ambulatory [facility] Start: 02-06-2023 End: 02-06-2023 Office consultation new/estab patient 40 min Thiago Cuellar MD Work Phone: [facility] Comment on above: Difficulty breathing (Primary Dx); Nasal septal deviation; Hypertrophy of inferior nasal turbinate; Collapse of nasal valve; Nasal congestion; Deviated septum Start: 01-24-2023 End: 01-25-2023 ambulatory Rojelio V. Spasic Facility:[facility] Start: 01-24-2023 End: 01-24-2023 Patient encounter procedure Rojelio V. Spasic [facility] Start: 01-15-2023 End: 01-16-2023 ambulatory Rojelio V. Spasic Facility:[facility] Start: 01-15-2023 End: 01-15-2023 Patient encounter procedure Rojelio V. Spasic [facility] Start: 11-19-2022 End: 11-19-2022 Emergency department patient visit Vivian [place]cho[place] [place]: 11-09-2022 End: 11-10-2022 ambulatory Isaac Stephen [place] [place] Start: 11-09-2022 End: 11-09-2022 Patient encounter procedure Amos Castellon [facility] Start: 09-04-2022 End: 09-28-2022 Pre-admission assessment Gilbert Bravo Link [facility] Start: 08-02-2022 End: 09-04-2022 Pre-admission assessment Gilbert Bravo Link [facility] Start: 07-18-2022 End: 07-18-2022 Patient encounter procedure Gina Sterling [facility] Start: 07-18-2022 End: 07-18-2022 Patient encounter procedure Gilbert Bravo Link [facility] Start: 07-03-2022 End: 07-03-2022 Emergency department patient visit Mary Jane Palm [facility] Start: 06-26-2022 End: 06-26-2022 Patient encounter procedure Geovany Ramirez [facility] Start: 09-14-2021 End: 09-14-2021 Emergency department patient visit Darren Lomax [facility] Start: 09-12-2021 End: 09-12-2021 Lab Drop off Miguel Angel Kuo [facility] Start: 07-18-2021 End: 07-20-2021 Evaluation and management of inpatient Whitney Barrera MD Work Phone: [facility] Procedures Date Procedure Procedure Detail Performing Clinician Start: 08-20-2023 Computed tomography of abdomen and pelvis with contrast TI Dean Work Phone: Start: 03-24-2023 PULSE OXIMETRY, CONTINUOUS THIAGO CUELLAR Start: 03-24-2023 PULSE OXIMETRY, CONTINUOUS Annita Mcrae MD Work Phone: Start: 03-24-2023 DISCHARGE PATIENT THIAGO DE LA VEGABANI Start: 03-24-2023 POCT , URINE C YRUS POLO Start: 02-26-2023 Nasal deviation, car tilage (finding) Ivana Bennett Start: 07-20-2021 Gluc bld gluc mntr d ev cleared fda spec home use Whitney Barrera MD Work Phone: Start: 07-20-2021 Gluc bld gluc mntr d ev cleared fda spec home use Whitney Barrera MD Work Phone: Start: 07-20-2021 End: 07-20-2021 Gluc bld gluc mntr dev cleared fda spec home use Whitney Barrera MD Work Phone: Start: 07-19-2021 Gluc bld gluc mntr d ev cleared fda spec home use Whitney Barrera MD Work Phone: Start: 07-19-2021 RADIOLOGY REPORT Physic roger Generic Start: 07-19-2021 Us preg uterus after 1st trimest 04/28 gestation Jerrell Corey [employer] Work Phone: Start: 07-19-2021 Comprehensive metabo lic panel Francisco Rodriguez MD Work Phone: Start: 07-19-2021 Antibody screen Whitney velasquez MD Work Phone: Start: 07-19-2021 Blood count complete automated Jerrell Corey [employer] Work Phone: Start: 07-19-2021 Blood typing serologic abo Jerrell Corey [employer] Work Phone: Start: 07-19-2021 Iadna multiple organ isms direct probe tq Jerrell Corey [employer] Work Phone: Start: 07-19-2021 TRICHOMONAS VAGINALI , MOLECULAR Jerrell R [employer] DO Work Phone: Start: 07-19-2021 Urnls dip stick/tabl et rgnt auto w/o microscopy Jerrell Corey [employer] Work Phone: Start: 12-27-2020 ABO, EXTERNAL RESULT Vt mayela Botello MD Start: 12-27-2020 C. TRACHOMATIS, EXTE RNAL RESULT Historical Provider Start: 12-27-2020 HEPATITIS B, EXTERNA L RESULT Historical Provider Start: 12-27-2020 HIV, EXTERNAL RESULT Donte pedro Provider Start: 12-27-2020 N. GONORRHOEAE, EXTE RNAL RESULT Historical Provider Start: 12-27-2020 RH FACTOR, EXTERNAL RESULT Historical Provider Start: 12-27-2020 RPR, EXTERNAL RESULT Vt mayela Provider Start: 12-27-2020 RUBELLA TITER, EXTER NAL RESULT Historical Provider Start: 08-09-2016 Betamethasone prepar ation (product) Miguel Angel Kuo Betamethasone (substance) Gama Kuo Child 1 Miguel Angel Kuo Comment on above: Pt has a child 3 yea rs old. ganglion cyst remove d left wrist Miguel Angel Kuo Plan of Treatment Date Care Activity Detail Author Start: 2044 Zoster Vaccines (1 of 2) Zoster Vaccines (1 of 2) [facility] Start: 08-04-2031 DTaP/Tdap/Td Vaccines (3 - Td or Tdap) DTaP/Tdap/Td Vaccines (3 - Td or Tdap) [facility] Start: 08-05-2023 Bacteria identified in Genital specimen by Aerobe culture [facility] Start: 08-05-2023 Trichomonas vaginalis detection [facility] Start: 08-05-2023 End: 08-05-2023 [facility] Start: 03-31-2023 End: 03-31-2023 Patient encounter procedure 03/31/2023 11:00 AM EST Office Visit [facility] [address] [place] [address] Regi Hunter PA-C [address] Department [place] [address] [facility] Start: 03-24-2023 End: 03-24-2023 Fracture nasal inferior turbinate therapeutic Fracture Therapeutic Nasal Bone Deviated nasal septum Hypertrophy of nasal turbinates Acquired deformity of nose Nasal congestion 03/24/2023 7:39 AM EST [facility] Start: 03-24-2023 End: 03-24-2023 Repair nasal vestibular stenosis Repair Nasal Valve Deviated nasal septum Hypertrophy of nasal turbinates Acquired deformity of nose Nasal congestion 03/24/2023 7:39 AM EST [facility] Start: 03-24-2023 End: 03-24-2023 Rhinoplasty primary w/major septal repair Rhinoplasty Deviated nasal septum Hypertrophy of nasal turbinates Acquired deformity of nose Nasal congestion 03/24/2023 7:39 AM EST [facility] Start: 03-24-2023 End: 03-24-2023 Septoplasty/submucous resecj w/wo cartilage grf Repair Septum Nasal Cavity Deviated nasal septum Hypertrophy of nasal turbinates Acquired deformity of nose Nasal congestion 03/24/2023 7:39 AM EST [facility] Start: 03-24-2023 End: 03-24-2023 Submucous rescj inferior turbinate prtl/compl Excision Nasal Turbinate Deviated nasal septum Hypertrophy of nasal turbinates Acquired deformity of nose Nasal congestion 03/24/2023 7:39 AM EST [facility] Start: 12-27-2022 Influenza vaccination Influenza Vaccine (#1) [facility] Start: 12-27-2020 Influenza vaccination Flu vaccine (#1) [facility] Start: 2016 DTaP/Tdap/Td Vaccines (1 - Tdap) DTaP/Tdap/Td Vaccines (1 - Tdap) [facility] Start: 11-03-2015 Screening for malignant neoplasm of cervix [facility] Start: 2012 Hepatitis C screening Hepatitis C Screening [facility] Start: 11-03-1999 COVID-19 Vaccine (1) COVID-19 Vaccine (1) [facility] Start: 11-03-1995 MMR Vaccines (1 of 1 - Standard series) MMR Vaccines (1 of 1 - Standard series) [facility] Start: 11-03-1995 Varicella vaccination Varicella Vaccines (1 of 2 - 2-dose childhood series) [facility] Start: 05-05-1995 COVID-19 Vaccine (#1) COVID-19 Vaccine (#1) [facility] Start: 1994 Hepatitis B Vaccines (1 of 3 - 3-dose series) Hepatitis B Vaccines (1 of 3 - 3-dose series) [facility] Start: 1994 HIV screening HIV Screening [facility] Start: 1994 Lipid panel Lipid Panel [facility] Start: 1994 Yearly Adult Physical Yearly Adult Physical [facility] Albumin/Globulin ratio [facility] Anion gap measurement [facility] Basophils [#/volume] in Blood by Automated count [facility] Basophils/100 leukoc ytes in Blood by Automated count [facility] End: 03-24-2023 Choriogonadotropin ( test) [Presence] in Urine [facility] Work Phone: Comment on above: Once (Lab) for 1 Occurrences starting until 03/24/2023 Eosinophils/100 leuk ocytes in Blood by Automated count [facility] Erythrocyte distribu tion width [Ratio] by Automated count [facility] Erythrocytes [#/volu me] in Blood [facility] nonstress test nonst ress test OB Routine Daily until discontinued starting 07/19/2021 [facility] Work Phone: Comment on above: Daily until discontinued starting 2021 Globulin [Mass/volum e] in Serum [facility] Glucose [Mass/volume ] in Serum or Plasma POCT GLUCOSE Point of Care Testing Routine 4X Daily until discontinued starting 07/20/2021 [employer] Work Phone: Comment on above: 4X Daily until discontinued starting Glucose [Mass/volume ] in Serum or Plasma POCT Glucose Point of Care Testing - Docked Device Routine As needed (Lab) until discontinued starting 03/24/2023 [facility] Service Area Work Phone: Comment on above: As needed (Lab) until discontinued start ing 03/24/2023 Group B Strep, PCR Group B Strep , PCR Microbiology Routine 07/19/2021 2:48 AM EDT [facility] Work Phone: Hematocrit [Volume Fraction] of Blood [facility] Hemoglobin [Mass/vol ume] in Blood [facility] Leukocytes [#/volume ] corrected for nucleated erythrocytes in Blood by Automated coun [facility] Leukocytes [#/volume ] in Blood [facility] Lymphocytes [#/volum e] in Blood by Automated count [facility] Lymphocytes/100 leuk ocytes in Blood by Automated count [facility] MCH [Entitic mass] b y Automated count [facility] MCHC [Mass/volume] b y Automated count [facility] MCV [Entitic volume] by Automated count [facility] Monocytes [#/volume] in Blood by Automated count [facility] Monocytes/100 leukoc ytes in Blood by Automated count [facility] Neutrophils [#/volum e] in Blood by Automated count [facility] Neutrophils/100 leuk ocytes in Blood by Automated count [facility] Nonrebreather mask oxygen Nonreb reather mask oxygen Respiratory Care Routine As directed - RT (PRN) until discontinued starting 07/19/2021 [facility] Work Phone: Comment on above: As directed - RT (PRN) until discontinue d starting 07/19/2021 Nucleated erythrocyt es [Presence] in Blood by Automated count [facility] Oxygen therapy [Mini mum Data Set] Initiate Oxygen Therapy Protocol while on epidural Respiratory Care Routine As Needed until discontinued starting 07/19/2021 [facility] Work Phone: Comment on above: As Needed until discontinued starting Patient Education [facility] Work Phone: Patient referral [facility] Work Phone: Platelet mean volume [Entitic volume] in Blood by Automated count [facility] Platelets [#/volume] in Blood [facility] TYPE AND SCREEN TYPE AND SCREEN Blood Bank Routine Every Third Day until discontinued starting 07/19/2021, 1 completed [facility] Work Phone: Comment on above: Every Third Day until discontinued start ing 07/19/2021, 1 completed Immunizations Immunization Date Immunization Notes Care Provider Ximena diehl 08-03-2021 tetanus toxoid, reduced diphtheria toxoid, and acellular pertussis vaccine, adsorbed; Translations: [Boostrix (Tdap)] Miguel Angel Shiela [facility] Comment on above: Reason for Medicatio n: Other (see comment) 08-11-2016 tetanus toxoid, reduced diphtheria toxoid, and acellular pertussis vaccine, adsorbed Miguel Angel Shiela [facility] Comment on above: Reason for Medicatio n: Other (see comment) NEGATED: Highlighted row has not occurred!06-26-2022 influenza virus vaccine, unspecified formulation Geovany Kayjose [facility] NEGATED: Highlighted row has not occurred!06-26-2022 SARS-CoV-2 mRNA (tozinameran 5y-11y) vaccine Geovany Ramirez [facility] Payers Date Payer Category Payer Self-pay 2021 Unknown DAVID [facility] [id number] 2021-Present Nirav Chavez [address] [place] [address] [id number] 2021 Unknown [id number] 1994 Unknown [id number] 2.16.840.1.994908.3.579.2.1245 1994 Unknown [id number] 2.16.840.1.600628.3.579.2.1244 1994 Unknown [id number] 2.16.840.1.249531.3.579.2.1244 1994 Unknown [id number] 2.16.840.1.574248.3.579.2.1244 1994 Unknown [id number] 2.16.840.1.857931.3.579.2.1259 1994 Unknown [id number] 2.16.840.1.279204.3.579.2.1259 1994 Unknown [id number] 2.16.840.1.640173.3.579.2.1259 1994 Unknown [id number] 2.16.840.1.801509.3.579.2.1259 1994 Unknown [id number] 2.16.840.1.427189.3.579.2.174 1994 Unknown [id number] 2.16.840.1.965333.3.579.2.727 1994 Unknown [id number] 2.16.840.1.794781.3.579.2.727 1994 Unknown [id number] 2.16.840.1.577426.3.579.2.727 1994 Unknown [id number] 2.16.840.1.682027.3.579.2 1994 Unknown [id number] 2.16840.1.973456.3.579.2 1994 Unknown [id number] 2.16.840.1.995329.3.579.2 1994 Unknown [id number] 2.16840.1.821354.3.579.2 1994 Unknown [id number] 2.16840.1.433341.3.579.2 1994 Unknown [id number] 2.16840.1.633739.3.579.2 1994 Unknown [id number] 2.840.1.501147.3.579.2 1994 Unknown [id number] 2.840.1.761711.3.579.2 1994 Unknown [id number] 2.840.1.123202.3.579.2 1994 Unknown [id number] 2.840.1.538801.3.579.2 1994 Unknown [id number] 2.16840.1.379002.3.579.2 1994 Unknown [id number] 2.840.1.444740.3.579.2 1994 Unknown [id number] 2.16840.1.994279.3.579.2 1994 Unknown [id number] 2.16840.1.211439.3.579.2 1994 Unknown [id number] 2.16840.1.680071.3.579.2 1994 Unknown [id number] 2.16840.1.737933.3.579.2 1994 Unknown [id number] 2.16.840.1.109108.3.579.2 1994 Unknown [id number] 2.16.840.1.368901.3.579.2 1994 Unknown [id number] 2.16.840.1.113191.3.579.2 1994 Unknown [id number] 2.16840.1.198656.3.579.2 1994 Unknown [id number] 2.16840.1.384205.3.579.2 1994 Unknown [id number] 2.840.1.544027.3.579.2 1994 Unknown [id number] 2.840.1.225750.3.579.2 1994 Unknown [id number] 2.840.1.818696.3.579.2 1994 Unknown [id number] 2.840.1.281124.3.579.2 1994 Unknown [id number] 2.840.1.259637.3.579.2 1994 Unknown [id number] 2.16840.1.147496.3.579.2 1994 Unknown [id number] 2.840.1.106471.3.579.2 1994 Unknown [id number] 2.16.840.1.613563.3.579.2 1994 Unknown [id number] 2.16840.1.214266.3.579.2 1994 Unknown [id number] 2.16840.1.540374.3.579.2 1994 Unknown [id number] 2.16840.1.834680.3.579.2 1994 Unknown [id number] 2.840.1.205361.3.579.2 1994 Unknown [id number] 2.840.1.112715.3.579.2 1994 Unknown [id number] 2.840.1.004730.3.579.2 1994 Unknown [id number] .840.1.596663.3.579.2 1994 Unknown [id number] .840.1.264322.3.579.2 1994 Unknown [id number] 2.840.1.786763.3.579. 1994 Unknown [id number] 2840.1.673609.3.579. 1994 Unknown [id number] 2840.1.800882.3.579.2 1994 Unknown [id number] 2840.1.391554.3.579. 1994 Unknown [id number] 840.1.397949.3.579.2 1994 Unknown [id number] 840.1.516191.3.579.2 1994 Unknown [id number] 840.1.399365.3.579.2 1994 Unknown [id number] 840.1.707438.3.579.2 1994 Unknown [id number] .840.1.933057.3.579.2 1994 Unknown [id number] 2840.1.586273.3.579.2 1994 Unknown [id number] 2840.1.915813.3.579.2. 1994 Unknown [id number] 2.16.840.1.116728.3.579.2 1994 Unknown [id number] 2.16.840.1.603919.3.579.2. 1994 Unknown [id number] 2.16.840.1.367053.3.579.2. 1994 Unknown [id number] 2.16.840.1.982740.3.579.2 1994 Unknown [id number] 2.840.1.354958.3.579.2 1994 Unknown [id number] 2.16840.1.813729.3.579.2 1994 Unknown [id number] 2.840.1.206759.3.579.2 1994 Unknown [id number] 2.16840.1.123566.3.579.2 1994 Unknown [id number] 2.16840.1.412780.3.579.2 1994 Unknown [id number] 2.840.1.543588.3.579.2. 1994 Unknown [id number] 2.16840.1.654480.3.579.2 Medicaid [facility] [id number] Unknown [id number] 2.16840.1.022166.3.579.2.531 Unknown [id number] 2.16840.1.086342.3.579.2.531 Unknown [id number] 2.16.840.1.977220.3.579.2.531 Unknown [id number] 2.16840.1.872780.3.579.2.531 Unknown [id number] 2.16.840.1.859894.3.579.2.531 Social History Date Type Detail Facility Start: 07-19-2021 End: 11-24-2023 Tobacco smoking status [facility] Work [facility]: Comment on above: Denies. Start: 07-19-2021 End: 03-07-2023 Tobacco use and exposure Smokeless tobacco non-user [facility] Work Phone: Start: 07-19-2021 Alcohol intake Ex-drinker (finding) [facility] Work Phone: Start: 1995 Sex Assigned At Not on file S [facility] Work Phone: Start: 07-09-2021 End: 03-24-2023 Exposure to SARS-CoV-2 (event) Not sure [facility]: Start: 02-06-2023 End: 03-31-2023 Sex Assigned At Female [facility] Tobacco [facility] Comment on above: denies Denies. Tobacco smoking status Never [facility] Comment on above: Denies. Start: 02-06-2023 End: 03-31-2023 History of Social function [facility] Work Phone: Start: 1995 Sex Assigned At Female [facility] Start: 01-22-2023 Gender identity Identifies as female gender (finding) [facility] Work Phone: Start: 01-22-2023 Sexual orientation Heterosexual (fin ding) [facility] Work Phone: Start: 03-24-2023 End: 03-31-2023 Alcohol intake Lifetime non-drinker (finding) [facility] Work Phone: Tobacco smoking status No Smoking Status Entered [facility] Start: 08-05-2023 End: 09-27-2023 Tobacco smoking status NHIS Ex-smoker (finding) [facility] NEGATED: Highlighted row [facility] Functional Status Date Assessment Result Facility 11-24-2023 Functional Status No [facility] 11-05-2023 Functional Status N/A [facility] 2023 Functional Status N/A [facility] 11-01-2023 Functional Status N/A [facility] 10-31-2023 Functional Status N/A [facility] 10-30-2023 Functional Status N/A [facility] 10-25-2023 Functional Status N/A [facility] 10-21-2023 Functional Status N/A [facility] 10-19-2023 Functional Status N/A [facility] 10-17-2023 Functional Status N/A [facility] 10-05-2023 Functional Status N/A [facility] 10-02-2023 Functional Status N/A [facility] 09-27-2023 Functional Status N/A [facility] 09-26-2023 Functional Status N/A [facility] 09-24-2023 Functional Status N/A [facility] 09-20-2023 Functional Status N/A [facility] 09-17-2023 Functional Status N/A [facility] 09-15-2023 Functional Status No [facility] 09-14-2023 Functional Status N/A [facility] 08-18-2023 Functional Status N/A [facility] 08-14-2023 Functional Status N/A [facility] 08-10-2023 Functional Status N/A [facility] 07-30-2023 Functional Status N/A [facility] 07-26-2023 Functional Status N/A [facility] 07-19-2023 Functional Status N/A [facility] 07-12-2023 Functional Status N/A [facility] 07-09-2023 Functional Status N/A [facility] 07-07-2023 Functional Status N/A [facility] 07-07-2023 Functional Status N/A [facility] 06-29-2023 Functional Status N/A [facility] 06-14-2023 Functional Status N/A [facility] 05-31-2023 Functional Status N/A [facility] 05-11-2023 Functional Status N/A [facility] 05-03-2023 Functional Status N/A [facility] 04-15-2023 Functional Status N/A [facility] 03-30-2023 Functional Status N/A [facility] 03-11-2023 Functional Status N/A [facility] 01-24-2023 Functional Status N/A [facility] 01-15-2023 Functional Status N/A [facility] 11-09-2022 Functional Status N/A [facility] 07-03-2022 Functional Status N/A [facility] 06-26-2022 Functional Status N/A [facility] Clinical Notes 07-20-2021 to 11-24-2023 Note Date & Type Note Facility 11-24-2023 Hospital Discharg e instructions Patient Education 11/24/2023 13:14:00 Chronic Pain, Adult Chronic Pain, Adult Chronic pain is a type of pain that lasts or keeps coming back for at least 3 6 months. You may have headaches, pain in the abdomen, or pain in other areas of the body. Chronic pain may be related to an illness, such as fibromyalgia or complex regional pain syndrome. Chronic pain may also be related to an injury or a health condition. Sometimes, the cause of chronic pain is not known. Chronic pain can make it hard for you to do daily activities. If not treated, chronic pain can lead to anxiety and depression. Treatment depends on the cause and severity of your pain. You may need to work with a pain specialist to come up with a treatment plan. The plan may include medicine, counseling, and physical therapy. Many people benefit from a combination of two or more types of treatment to control their pain. Follow these instructions at home: Medicines Take dpho-iup-mbioafo and prescription medicines only as told by your health care provider. Ask your health care provider if the medicine prescribed to you: ?Requires you to avoid driving or using machinery. ?Can cause constipation. You may need to take these actions to prevent or treat constipation: ?Drink enough fluid to keep your urine pale yellow. ?Take ywyi-ptd-qwujjid or prescription medicines. ?Eat foods that are high in fiber, such as beans, whole grains, and fresh fruits and vegetables. ?Limit foods that are high in fat and processed sugars, such as fried or sweet foods. Treatment plan Follow your treatment plan as told by your health care provider. This may include: Gentle, regular exercise. Eating a healthy diet that includes foods such as vegetables, fruits, fish, and lean meats. Cognitive or behavioral therapy that changes the way you think or act in response to the pain. This may help improve how you feel. Working with a physical therapist. Meditation, yoga, acupuncture, or massage therapy. Aroma, color, light, or sound therapy. Local electrical stimulation. The electrical pulses help to relieve pain by temporarily stopping the nerve impulses that cause you to feel pain. Injections. These deliver numbing or pain-relieving medicines into the spine or the area of pain. Lifestyle Ask your health care provider whether you should keep a pain diary. Your health care provider will tell you what information to write in the diary. This may include when you have pain, what the pain feels like, and how medicines and other behaviors or treatments help to reduce the pain. Consider talking with a mental health care provider about how to manage chronic pain. Consider joining a chronic pain support group. Try to control or lower your stress levels. Talk with your health care provider about ways to do this. General instructions Learn as much as you can about how to manage your chronic pain. Ask your health care provider if an intensive pain rehabilitation program or a chronic pain specialist would be helpful. Check your pain level as told by your health care provider. Ask your health care provider if you should use a pain scale. It is up to you to get the results of any tests that were done. Ask your health care provider, or the department that is doing the tests, when your results will be ready. Keep all follow-up visits as told by your health care provider. This is important. Contact a health care provider if: Your pain gets worse, or you have new pain. You have trouble sleeping. You have trouble doing your normal activities. Your pain is not controlled with treatment. You have side effects from pain medicine. You feel weak. You notice any other changes that show that your condition is getting worse. Get help right away if: You lose feeling or have numbness in your body. You lose control of bowel or bladder function. Your pain suddenly gets much worse. You develop shaking or chills. You develop confusion. You develop chest pain. You have trouble breathing or shortness of breath. You pass out. You have thoughts about hurting yourself or others. If you ever feel like you may hurt yourself or others, or have thoughts about taking your own life, get help right away. Go to your nearest emergency department or: Call your local emergency services (766 in the [place] Call a suicide crisis helpline, such as the National Suicide Prevention Lifeline at or 280 in the [place] This is open 24 hours a day in the [place] Text the Crisis Text Line at 570554 (in the [place] Summary Chronic pain is a type of pain that lasts or keeps coming back for at least 3 6 months. Chronic pain may be related to an illness, injury, or other health condition. Sometimes, the cause of chronic pain is not known. Treatment depends on the cause and severity of your pain. Many people benefit from a combination of two or more types of treatment to control their pain. Follow your treatment plan as told by your health care provider. This information is not intended to replace advice given to you by your health care provider. Make sure you discuss any questions you have with your health care provider. Document Revised: 08/29/2022 Document Reviewed: 12/30/2019 [employer] Patient Education 2022 [employer] Follow Up Care 11/24/2023 11:46:58 With:Lorri Ireland Address: [address] [place] [address], [address] [place] [address]- Business (1) When:Within 3 Day(s) [facility] 11-24-2023 Evaluation + Plan note Extrac rosy from: Title:ED Note Author:Wan RUIZ Student, Vle Bravo Date:11/24/23 Chronic pelvic pain in femal e (R10.2: Pelvic and perineal pain) Other chronic pain (G89.29: Other chronic pain) Ordered: tramadol, 50 mg = 1 tab(s), Oral, q8hr, X 3 day(s), # 9 tab(s), Refills(s) 0, Pharmacy: [facility]/pharmacy #[id number], 160, cm, 11/24/23 11:59:00 EDT, Height/Length Dosing, 62, kg, 11/24/23 11:59:00 EDT, Weight Dosing Orders: naproxen, 500 mg = 1 tab(s), Oral, BID, Take one tab by mouth two times a day, # 14 tab(s), Refills(s) 0, Pharmacy: [facility]/pharmacy #[id number], 160, cm, 11/24/23 11:59:00 EDT, Height/Length Dosing, 62, kg, 11/24/23 11:59:00 EDT, Weight Dosing Future Appointments Appointment Date:11/27/2023 08:15:00 AM Scheduled Provider:Cristóbal Granados DO [facility] Type:[facility] - [facility] ([facility] 07-29-2024 NoteED Patient Education Note Mental and Behavioral Health Chronic Pain, Adult Chronic pain is a type of pain that lasts or keeps coming back for at least 3?6 months. You may have headaches, pain in the abdomen, or pain in other areas of the body. Chronic pain may be related josefina illness, such as fibromyalgia or complex regional pain syndrome. Chronic pain may also be related to an injury or a health condition. Sometimes, the cause of chronic pain is not known. Chronic pain can make it hard for you to do daily activities. If not treated, chronic pain can leadto anxiety and depression. Treatment depends on the cause and severity of your pain. You may need to work with a pain specialist to come up with a treatment plan. The plan may include medicine, counseling, and physical therapy. Many people benefit from a combination of two or more types of treatment to control their pain. Follow these instructions at home: Medicines ? Take lusn-rss-jvlalwc and prescription medicines only as told by your health care provider. ? Ask your health care provider if the medicine prescribed to you: ? Requires you to avoid driving or using machinery. ? Can cause constipation. You may need to take these actions to prevent or treat constipation: ? Drink enough fluid to keep your urine pale yellow. ? Take hljh-gcn-fnttahe or prescription medicines. ? Eat foods that are high in fiber, such as beans, whole grains, and fresh fruits and vegetables. ? Limit foods that are high in fat and processed sugars, such as fried or sweet foods. Treatment plan Follow your treatment plan as told by your health care provider. This may include: ? Gentle, regular exercise. ? Eating a healthy diet that includes foods such as vegetables, fruits, fish, and lean meats. ? Cognitive or behavioral therapy that changes the way you think or act in response to the pain. This may help improve how you feel. ? Working with a physical therapist. ? Meditation, yoga, acupuncture, or massage therapy. ? Aroma, color, light, or sound therapy. ? Local electrical stimulation. The electrical pulses help to relieve pain by temporarily stopping the nerve impulses that cause you to feel pain. ? Injections. These deliver numbing or pain-relieving medicines into the spine or the area of pain. Lifestyle ? Ask your health care provider whether you should keep a pain diary. Your health care provider will tell you what information to write in the diary. This may include when you have pain, what the pain feels like, and how medicines and other behaviors or treatments help to reduce the pain. ? Consider talking with a mental health care provider about how to manage chronic pain. ? Consider joining a chronic pain support group. ? Try to control or lower your stress levels. Talk with your health care provider about ways to do this. General instructions ? Learn as much as you can about how to manage your chronic pain. Ask your health care provider if an intensive pain rehabilitation program or a chronic pain specialist would be helpful. ? Check your pain level as told by your health care provider. Ask your health care provider if you should use a pain scale. ? It is up to you to get the results of any tests that were done. Ask your health care provider, orthe department that is doing the tests, when your results will be ready. ? Keep all follow-up visits as told by your health care provider. This is important. Contact a health care provider if: ? Your pain gets worse, or you have new pain. ? You have trouble sleeping. ? You have trouble doing your normal activities. ? Your pain is not controlled with treatment. ? You have side effects from pain medicine. ? You feel weak. ? You notice any other changes that show that your condition is getting worse. Get help right away if: ? You lose feeling or have numbness in your body. ? You lose control of bowel or bladder function. ? Your pain suddenly gets much worse. ? You develop shaking or chills. ? You develop confusion. ? You develop chest pain. ? You have trouble breathing or shortness of breath. ? You pass out. ? You have thoughts about hurting yourself or others. If you ever feel like you may hurt yourself or others, or have thoughts about taking your own life,get help right away. Go to your nearest emergency department or: ? Call your local emergency services (911 in the [place] ? Call a suicide crisis helpline, such as the National Suicide Prevention Lifeline at or 182 in the [place] This is open 24 hours a day in the [place] ? Text the Crisis Text Line at 196748 (in the [place] Summary ? Chronic pain is a type of pain that lasts or keeps coming back for at least 3?6 months. ? Chronic pain may be related to an illness, injury, or other health condition. Sometimes, the cause of chronic pain is not known. ? Treatment depends on the cause and (more content not included)...[facility]07-10-2024 Evaluation + Plan noteExtracted from: Title:ED Note Author:Guille Will MD Date: 1. Left lower quadrant abdom inal pain (R10.32: Left lower quadrant pain) Orders: ketorolac, 30 mg = 1 mL, Injection, IV Push, Once, Stop date 11/05/23 1:10:00 EDT, STAT, Start date 11/05/23 1:10:00 EDT, 11/05/23 1:10:00 EDT morphine, 4 mg = 1 mL, Injection, IV Push, Once, Stop date 11/05/23 1:10:00 EDT, STAT, Start date 11/05/23 1:10:00 EDT, 11/05/23 1:10:00 EDT morphine, 4 mg = 1 mL, Injection, IV Push, Once, Stop date 11/05/23 3:17:00 EDT, STAT, Start date 11/05/23 3:17:00 EDT, 11/05/23 3:17:00 EDT ondansetron, 4 mg = 2 mL, Injection, IV Push, Once, Stop date 11/05/23 1:10:00 EDT, STAT, Start date 11/05/23 1:10:00 EDT, 11/05/23 1:10:00 EDT Sodium Chloride 0.9% intravenous solution 1,000 mL, 1,000 mL, IV, 125 mL/hr, STAT, Start date 11/05/23 1:10:00 EDT, 8 hour(s), Total volume (mL): 1,000, 61.7 kg, 1.66, m2 Amylase Level Basic Metabolic Panel Beta hCG Qual CBC w/ Auto Diff CT Abdomen/Pelvis w/ Contrast eGFR Hepatic Function Panel Lipase Level UA with Cult Rflx US Pelvis Non-OB Complete Future Appointments Appointment Date:11/17/2023 01:45:00 PM Scheduled Provider:rCistóbal Granados DO [facility] Appointment Type:Pain Management - New ([facility]) Appointment Date:11/24/2023 11:00:00 AM Scheduled Provider:Bon DC, Fatoumata Kelsey Location[facility] Appointment Type:Vascular Follow Up ([facility]) [facility]07-10-2024 Hospital Discharge instructions Patient Education 11/05/2023 08:48:44 Abdominal Pain, Adult Abdominal Pain, Adult Pain in the abdomen (abdominal pain) can be caused by many things. Often, abdominal pain is not serious and it gets better with no treatment or by being treated at home. However, sometimes abdominal pain is serious. Your health care provider will ask questions about your medical history and do a physical exam to try to determine the cause of your abdominal pain. Follow these instructions at home: Medicines Take urot-hoy-yjpcrki and prescription medicines only as told by your health care provider. Do not take a laxative unless told by your health care provider. General instructions Watch your condition for any changes. Drink enough fluid to keep your urine pale yellow. Keep all follow-up visits as told by your health care provider. This is important. Contact a health care provider if: Your abdominal pain changes or gets worse. You are not hungry or you lose weight without trying. You are constipated or have diarrhea for more than 2 3 days. You have pain when you urinate or have a bowel movement. Your abdominal pain wakes you up at night. Your pain gets worse with meals, after eating, or with certain foods. You are vomiting and cannot keep anything down. You have a fever. You have blood in your urine. Get help right away if: Your pain does not go away as soon as your health care provider told you to expect. You cannot stop vomiting. Your pain is only in areas of the abdomen, such as the right side or the left lower portion of the abdomen. Pain on the right side could be caused by appendicitis. You have bloody or black stools, or stools that look like tar. You have severe pain, cramping, or bloating in your abdomen. You have signs of dehydration, such as: ?Dark urine, very little urine, or no urine. ?Cracked lips. ?Dry mouth. ?Sunken eyes. ?Sleepiness. ?Weakness. You have trouble breathing or chest pain. Summary Often, abdominal pain is not serious and it gets better with no treatment or by being treated at home. However, sometimes abdominal pain is serious. Watch your condition for any changes. Take iywx-pnz-pysgkjs and prescription medicines only as told by your health care provider. Contact a health care provider if your abdominal pain changes or gets worse. Get help right away if you have severe pain, cramping, or bloating in your abdomen. This information is not intended to replace advice given to you by your health care provider. Make sure you discuss any questions you have with your health care provider. Document Revised: 06/02/2020 Document Reviewed: 08/23/2019 [employer] Patient Education 2022 [employer] 11/05/2023 08:48:44 Chronic Pain, Adult Chronic Pain, Adult Chronic pain is a type of pain that lasts or keeps coming back for at least 3 6 months. You may have headaches, pain in the abdomen, or pain in other areas of the body. Chronic pain may be related josefina illness, such as fibromyalgia or complex regional pain syndrome. Chronic pain may also be related to an injury or a health condition. Sometimes, the cause of chronic pain is not known. Chronic pain can make it hard for you to do daily activities. If not treated, chronic pain can leadto anxiety and depression. Treatment depends on the cause and severity of your pain. You may need to work with a pain specialist to come up with a treatment plan. The plan may include medicine, counseling, and physical therapy. Many people benefit from a combination of two or more types of treatment to control their pain. Follow these instructions at home: Medicines Take uebh-eds-bufqjgv and prescription medicines only as told by your health care provider. Ask your health care provider if the medicine prescribed to you: ?Requires you to avoid driving or using machinery. ?Can cause constipation. You may need to take these actions to prevent or treat constipation: ?Drink enough fluid to keep your urine pale yellow. ?Take ioak-fxj-zzcneyg or prescription medicines. ?Eat foods that are high in fiber, such as beans, whole grains, and fresh fruits and vegetables. ?Limit foods that are high in fat and processed sugars, such as fried or sweet foods. Treatment plan Follow your treatment plan as told by your health care provider. This may include: Gentle, regular exercise. Eating a healthy diet that includes foods such as vegetables, fruits, fish, and lean meats. Cognitive or behavioral therapy that changes the way you think or act in response to the pain. Thismay help improve how you feel. Working with a physical therapist. Meditation, yoga, acupuncture, or massage therapy. Aroma, color, light, or sound therapy. Local electrical stimulation. The electrical pulses help to relieve pain by temporarily stopping the nerve impulses that cause you to feel pain. Injections. These deliver numbing or pain-relieving medicines into the spine or the area of pain. Lifestyle Ask your health care provider whether you should keep a pain diary. Your health care provider will tell you what information to write in the diary. This may include when you have pain, what the pain feels like, and how medicines and other behaviors or treatments help to reduce the pain. Consider talking with a mental health care provider about how to manage chronic pain. Consider joining a chronic pain support group. Try to control or lower your stress levels. Talk with your health care provider about ways to do this. General instructions Learn as much as you can about how to manage your chronic pain. Ask your health care provider if anintensive pain rehabilitation program or a chronic pain specialist would be helpful. Check your pain level as told by your health care provider. Ask your health care provider if you should use a pain scale. It is up to you to get the results of any tests that were done. Ask your health care provider, or the department that is doing the tests, when your results will be ready. Keep all follow-up visits as told by your health care provider. This is important. Contact a health care provider if: Your pain gets worse, or you have new pain. You have trouble sleeping. You have trouble doing your normal activities. Your pain is not controlled with treatment. You have side effects from pain medicine. You feel weak. You notice any other changes that show that your condition is getting worse. Get help right away if: You lose feeling or have numbness in your body. You lose control of bowel or bladder function. Your pain suddenly gets much worse. You develop shaking or chills. You develop confusion. You develop chest pain. You have trouble breathing or shortness of breath. You pass out. You have thoughts about hurting yourself or others. If you ever feel like you may hurt yourself or others, or have thoughts about taking your own life,get help right away. Go to your nearest emergency department or: Call your local emergency services (204 in the [place] Call a suicide crisis helpline, such as the National Suicide Prevention Lifeline at or 781 in the [place] This is open 24 hours a day in the [place] Text the Crisis Text Line at 654055 (in the [place] Summary Chronic pain is a type of pain that lasts or keeps coming back for at least 3 6 months. Chronic pain may be related to an illness, injury, or other health condition. Sometimes, the cause of chronic pain is not known. Treatment depends on the cause and severity of your pain. Many people benefit from a combination of two or more types of treatment to control their pain. Follow your treatment plan as told by your health care provider. This information is not intended to replace advice given to you by your health care provider. Make sure you discuss any questions you have with your health care provider. Document Revised: 08/29/2022 Document Reviewed: 12/30/2019 [employer] Patient Education 2022 [employer]. Follow Up Care 11/04/2023 23:46:14 With:Lorri Ireland Address: [address] [place] [address], [address] [place] [id number] [facility] (1) When:11/08/2023 08:47:56 Comments:Call the office of your primary care doctor to arrange for follow-up within the above-stated timeframe. Follow-up with your primary care doctor about this ED visit. You should review your labs, imaging, and diagnoses from this ED visit with your primary care physician. There are occasionally non-emergent findings that require additional follow-up after your ED visit. If you were prescribed medications you should discuss possible side-effects and drug interactions with your pharmacist. Call 911 or go to the nearest Emergency Department if you develop any new or worsening symptoms.Seek immediate medical attention if you develop:worsening abdominal pain, new or worsening nausea, new or worsening vomiting, new or worsening diarrhea, chest pain, shortness of breath, pain with urination, problems urinating, fever, chills, weakness, or any new or worsening symptoms. [facility]07-10-2024 NoteED Patient Education Note Gastroenterology Abdominal Pain, Adult Pain in the abdomen (abdominal pain) can be caused by many things. Often, abdominal pain is not serious and it gets better with no treatment or by being treated at home. However, sometimes abdominal pain is serious. Your health care provider will ask questions about your medical history and do a physical exam to try to determine the cause of your abdominal pain. Follow these instructions at home: Medicines ? Take ymjm-dsb-bqbvylq and prescription medicines only as told by your health care provider. ? Do not take a laxative unless told by your health care provider. General instructions ? Watch your condition for any changes. ? Drink enough fluid to keep your urine pale yellow. ? Keep all follow-up visits as told by your health care provider. This is important. Contact a health care provider if: ? Your abdominal pain changes or gets worse. ? You are not hungry or you lose weight without trying. ? You are constipated or have diarrhea for more than 2?3 days. ? You have pain when you urinate or have a bowel movement. ? Your abdominal pain wakes you up at night. ? Your pain gets worse with meals, after eating, or with certain foods. ? You are vomiting and cannot keep anything down. ? You have a fever. ? You have blood in your urine. Get help right away if: ? Your pain does not go away as soon as your health care provider told you to expect. ? You cannot stop vomiting. ? Your pain is only in areas of the abdomen, such as the right side or the left lower portion of the abdomen. Pain on the right side could be caused by appendicitis. ? You have bloody or black stools, or stools that look like tar. ? You have severe pain, cramping, or bloating in your abdomen. ? You have signs of dehydration, such as: ? Dark urine, very little urine, or no urine. ? Cracked lips. ? Dry mouth. ? Sunken eyes. ? Sleepiness. ? Weakness. ? You have trouble breathing or chest pain. Summary ? Often, abdominal pain is not serious and it gets better with no treatment or by being treated at home. However, sometimes abdominal pain is serious. ? Watch your condition for any changes. ? Take ybbn-zcl-hugrvim and prescription medicines only as told by your health care provider. ? Contact a health care provider if your abdominal pain changes or gets worse. ? Get help right away if you have severe pain, cramping, or bloating in your abdomen. This information is not intended to replace advice given to you by your health care provider. Make sure you discuss any questions you have with your health care provider. Document Revised: 06/02/2020 Document Reviewed: 08/23/2019 [employer] Patient Education ? 2022 [employer]. Mental and Behavioral Health Chronic Pain, Adult Chronic pain is a type of pain that lasts or keeps coming back for at least 3?6 months. You may have headaches, pain in the abdomen, or pain in other areas of the body. Chronic pain may be related josefina illness, such as fibromyalgia or complex regional pain syndrome. Chronic pain may also be related to an injury or a health condition. Sometimes, the cause of chronic pain is not known. Chronic pain can make it hard for you to do daily activities. If not treated, chronic pain can leadto anxiety and depression. Treatment depends on the cause and severity of your pain. You may need to work with a pain specialist to come up with a treatment plan. The plan may include medicine, counseling, and physical therapy. Many people benefit from a combination of two or more types of treatment to control their pain. Follow these instructions at home: Medicines ? Take ozek-prn-xdikllt and prescription medicines only as told by your health care provider. ? Ask your health care provider if the medicine prescribed to you: ? Requires you to avoid driving or using machinery. ? Can cause constipation. You may need to take these actions to prevent or treat constipation: ? Drink enough fluid to keep your urine pale yellow. ? Take gzrn-gww-omnlmqr or prescription medicines. ? Eat foods that are high in fiber, such as beans, whole grains, and fresh fruits and vegetables. ? Limit foods that are high in fat and processed sugars, such as fried or sweet foods. Treatment plan Follow your treatment plan as told by your health care provider. This may include: ? Gentle, regular exercise. ? Eating a healthy diet that includes foods such as vegetables, fruits, fish, and lean meats. ? Cognitive or behavioral therapy that changes the way you think or act in response to the pain. This may help improve how you feel. ? Working with a physical therapist. ? Meditation, yoga, acupuncture, or massage therapy. ? Aroma, color, light, or sound therapy. ? Local electrical stimulation. The electrical pulses help to relieve pain by temporarily stopping the nerve impulses anne (more content not included)...[facility]07-06-2024 Hospital Discharge instructions Patient Education 11/01/2023 20:06:00 Abdominal Pain, Adult Abdominal Pain, Adult Pain in the abdomen (abdominal pain) can be caused by many things. Often, abdominal pain is not serious and it gets better with no treatment or by being treated at home. However, sometimes abdominal pain is serious. Your health care provider will ask questions about your medical history and do a physical exam to try to determine the cause of your abdominal pain. Follow these instructions at home: Medicines Take cewk-ohd-khjxutr and prescription medicines only as told by your health care provider. Do not take a laxative unless told by your health care provider. General instructions Watch your condition for any changes. Drink enough fluid to keep your urine pale yellow. Keep all follow-up visits as told by your health care provider. This is important. Contact a health care provider if: Your abdominal pain changes or gets worse. You are not hungry or you lose weight without trying. You are constipated or have diarrhea for more than 2 3 days. You have pain when you urinate or have a bowel movement. Your abdominal pain wakes you up at night. Your pain gets worse with meals, after eating, or with certain foods. You are vomiting and cannot keep anything down. You have a fever. You have blood in your urine. Get help right away if: Your pain does not go away as soon as your health care provider told you to expect. You cannot stop vomiting. Your pain is only in areas of the abdomen, such as the right side or the left lower portion of the abdomen. Pain on the right side could be caused by appendicitis. You have bloody or black stools, or stools that look like tar. You have severe pain, cramping, or bloating in your abdomen. You have signs of dehydration, such as: ?Dark urine, very little urine, or no urine. ?Cracked lips. ?Dry mouth. ?Sunken eyes. ?Sleepiness. ?Weakness. You have trouble breathing or chest pain. Summary Often, abdominal pain is not serious and it gets better with no treatment or by being treated at home. However, sometimes abdominal pain is serious. Watch your condition for any changes. Take vjxg-qgi-absashi and prescription medicines only as told by your health care provider. Contact a health care provider if your abdominal pain changes or gets worse. Get help right away if you have severe pain, cramping, or bloating in your abdomen. This information is not intended to replace advice given to you by your health care provider. Make sure you discuss any questions you have with your health care provider. Document Revised: 06/02/2020 Document Reviewed: 08/23/2019 [employer] Patient Education 2022 [employer]. Follow Up Care 11/01/2023 19:35:13 With:Fatoumata Gooden Address: [address] [place] [id number] Business (1) When:11/04/2023 19:56:58 With:Lorri Ireland Address: [address], [address] [place] [address]- Business (1) When:Within 3 Day(s) [facility]07-06-2024 NoteED Patient Education Note Gastroenterology Abdominal Pain, Adult Pain in the abdomen (abdominal pain) can be caused by many things. Often, abdominal pain is not serious and it gets better with no treatment or by being treated at home. However, sometimes abdominal pain is serious. Your health care provider will ask questions about your medical history and do a physical exam to try to determine the cause of your abdominal pain. Follow these instructions at home: Medicines ? Take vspr-itn-jnmxbdl and prescription medicines only as told by your health care provider. ? Do not take a laxative unless told by your health care provider. General instructions ? Watch your condition for any changes. ? Drink enough fluid to keep your urine pale yellow. ? Keep all follow-up visits as told by your health care provider. This is important. Contact a health care provider if: ? Your abdominal pain changes or gets worse. ? You are not hungry or you lose weight without trying. ? You are constipated or have diarrhea for more than 2?3 days. ? You have pain when you urinate or have a bowel movement. ? Your abdominal pain wakes you up at night. ? Your pain gets worse with meals, after eating, or with certain foods. ? You are vomiting and cannot keep anything down. ? You have a fever. ? You have blood in your urine. Get help right away if: ? Your pain does not go away as soon as your health care provider told you to expect. ? You cannot stop vomiting. ? Your pain is only in areas of the abdomen, such as the right side or the left lower portion of the abdomen. Pain on the right side could be caused by appendicitis. ? You have bloody or black stools, or stools that look like tar. ? You have severe pain, cramping, or bloating in your abdomen. ? You have signs of dehydration, such as: ? Dark urine, very little urine, or no urine. ? Cracked lips. ? Dry mouth. ? Sunken eyes. ? Sleepiness. ? Weakness. ? You have trouble breathing or chest pain. Summary ? Often, abdominal pain is not serious and it gets better with no treatment or by being treated at home. However, sometimes abdominal pain is serious. ? Watch your condition for any changes. ? Take hrcr-opi-mylafvn and prescription medicines only as told by your health care provider. ? Contact a health care provider if your abdominal pain changes or gets worse. ? Get help right away if you have severe pain, cramping, or bloating in your abdomen. This information is not intended to replace advice given to you by your health care provider. Make sure you discuss any questions you have with your health care provider. Document Revised: 06/02/2020 Document Reviewed: 08/23/2019 [employer] Patient Education ? 2022 [employer].[facility] 11-01-2023 Evaluation + Plan noteExtracted from: Title:ED Note Author:Bruno Jara DO Date :11/01/23 AP (abdominal pain) (R10.9: Unspecified abdominal pain) Orders: tramadol, 200 mg = 4 tab(s), Tab, Oral, Once, Stop date 11/01/23 19:55:00 EDT, STAT, Start date 11/01/23 19:55:00 EDT, 11/01/23 19:55:00 EDT Future Appointments Appointment Date:11/03/2023 10:45:00 AM Scheduled Provider:Bon DC, Fatoumata Kelsey Location:[facility] Appointment Type:Vascular Follow Up (FT) Appointment Date:11/17/2023 01:45:00 PM Scheduled Provider:Cristóbal Granados DO Location:.[facility] Appointment Type:Pain Management - New (FT) [facility]07-05-2024 Hospital Discharge instructions Patient Education 10/31/2023 13:48:32 Abdominal Pain, Adult, Apfa-fw-Rbqy Abdominal Pain, Adult Many things can cause belly (abdominal) pain. Most times, belly pain is not dangerous. Many cases of belly pain can be watched and treated at home. Sometimes, though, belly pain is serious. Your doctor will try to find the cause of your belly pain. Follow these instructions at home: Medicines Take kyan-aav-iiyfscu and prescription medicines only as told by your doctor. Do not take medicines that help you poop (laxatives) unless told by your doctor. General instructions Watch your belly pain for any changes. Drink enough fluid to keep your pee (urine) pale yellow. Keep all follow-up visits as told by your doctor. This is important. Contact a doctor if: Your belly pain changes or gets worse. You are not hungry, or you lose weight without trying. You are having trouble pooping (constipated) or have watery poop (diarrhea) for more than 2 3 days. You have pain when you pee or poop. Your belly pain wakes you up at night. Your pain gets worse with meals, after eating, or with certain foods. You are vomiting and cannot keep anything down. You have a fever. You have blood in your pee. Get help right away if: Your pain does not go away as soon as your doctor says it should. You cannot stop vomiting. Your pain is only in areas of your belly, such as the right side or the left lower part of the belly. You have bloody or black poop, or poop that looks like tar. You have very bad pain, cramping, or bloating in your belly. You have signs of not having enough fluid or water in your body (dehydration), such as: ?Dark pee, very little pee, or no pee. ?Cracked lips. ?Dry mouth. ?Sunken eyes. ?Sleepiness. ?Weakness. You have trouble breathing or chest pain. Summary Many cases of belly pain can be watched and treated at home. Watch your belly pain for any changes. Take eggk-cat-xcikxpz and prescription medicines only as told by your doctor. Contact a doctor if your belly pain changes or gets worse. Get help right away if you have very bad pain, cramping, or bloating in your belly. This information is not intended to replace advice given to you by your health care provider. Make sure you discuss any questions you have with your health care provider. Document Revised: 08/23/2019 Document Reviewed: 08/23/2019 [employer] Patient Education 2022 [employer]. Follow Up Care 10/31/2023 12:39:27 With:Follow-up with Dr. Gooden and pain management as scheduled. Address:Unknown When:11/03/2023 13:48:25 With:Lorri Ireland Address: [address] [place] [address], [address] [place] [address]- Business (1) When:Within 3 Day(s) [facility]07-05-2024 NoteED Patient Education Note Gastroenterology Abdominal Pain, Adult Many things can cause belly (abdominal) pain. Most times, belly pain is not dangerous. Many cases of belly pain can be watched and treated at home. Sometimes, though, belly pain is serious. Your doctor will try to find the cause of your belly pain. Follow these instructions at home: Medicines ? Take gnra-hkh-jjwizir and prescription medicines only as told by your doctor. ? Do not take medicines that help you poop (laxatives) unless told by your doctor. General instructions ? Watch your belly pain for any changes. ? Drink enough fluid to keep your pee (urine) pale yellow. ? Keep all follow-up visits as told by your doctor. This is important. Contact a doctor if: ? Your belly pain changes or gets worse. ? You are not hungry, or you lose weight without trying. ? You are having trouble pooping (constipated) or have watery poop (diarrhea) for more than 2?3 days. ? You have pain when you pee or poop. ? Your belly pain wakes you up at night. ? Your pain gets worse with meals, after eating, or with certain foods. ? You are vomiting and cannot keep anything down. ? You have a fever. ? You have blood in your pee. Get help right away if: ? Your pain does not go away as soon as your doctor says it should. ? You cannot stop vomiting. ? Your pain is only in areas of your belly, such as the right side or the left lower part of the belly. ? You have bloody or black poop, or poop that looks like tar. ? You have very bad pain, cramping, or bloating in your belly. ? You have signs of not having enough fluid or water in your body (dehydration), such as: ? Dark pee, very little pee, or no pee. ? Cracked lips. ? Dry mouth. ? Sunken eyes. ? Sleepiness. ? Weakness. ? You have trouble breathing or chest pain. Summary ? Many cases of belly pain can be watched and treated at home. ? Watch your belly pain for any changes. ? Take ijss-nyn-oocyhcz and prescription medicines only as told by your doctor. ? Contact a doctor if your belly pain changes or gets worse. ? Get help right away if you have very bad pain, cramping, or bloating in your belly. This information is not intended to replace advice given to you by your health care provider. Make sure you discuss any questions you have with your health care provider. Document Revised: 08/23/2019 Document Reviewed: 08/23/2019 [employer] Patient Education ? 2022 [employer] [facility] Discharge instructions Patient Education 10/30/2023 16:58:40 Pelvic Pain, Female Pelvic Pain, Female Pelvic pain is pain in your lower abdomen, below your belly button and between your hips. The pain may start suddenly (be acute), keep coming back (be recurring), or last a long time (become chronic). Pelvic pain that lasts longer than 6 months is considered chronic. Pelvic pain may affect your: Reproductive organs. Urinary system. Digestive tract. Musculoskeletal system. There are many potential causes of pelvic pain. Sometimes, the pain can be a result of digestive orurinary conditions, strained muscles or ligaments, or reproductive conditions. Sometimes the cause of pelvic pain is not known. Follow these instructions at home: Take gtyt-qig-hkwgdzn and prescription medicines only as told by your health care provider. Rest as told by your health care provider. Do not have sex if it hurts. Keep a journal of your pelvic pain. Write down: ?When the pain started. ?Where the pain is located. ?What seems to make the pain better or worse, such as food or your monthly period (menstrual cycle). ?Any symptoms you have along with the pain. Keep all follow-up visits. This is important. Contact a health care provider if: Medicine does not help your pain, or your pain comes back. You have new symptoms. You have abnormal vaginal discharge or bleeding, including bleeding after menopause. You have a fever or chills. You are constipated. You have blood in your urine or stool (feces). You have foul-smelling urine. You feel weak or light-headed. Get help right away if: You have sudden severe pain. Your pain gets steadily worse. You have severe pain along with fever, nausea, vomiting, or excessive sweating. You lose consciousness. These symptoms may represent a serious problem that is an emergency. Do not wait to see if the symptoms will go away. Get medical help right away. Call your local emergency services (911 in the [place] Do not drive yourself to the hospital. Summary Pelvic pain is pain in your lower abdomen, below your belly button and between your hips. There are many potential causes of pelvic pain. Keep a journal of your pelvic pain. This information is not intended to replace advice given to you by your health care provider. Make sure you discuss any questions you have with your health care provider. Document Revised: 08/21/2021 Document Reviewed: 08/21/2021 [employer] Patient Education 2022 [employer] Follow Up Care 10/30/2023 16:05:01 With:Follow with Dr. Gooden and pain management as already scheduled Address:Unknown When: Unknown With:Lorri Ireland Address: [address] [place] [address], [address] Business (1) When:Within 3 Day(s) [facility]07-04-2024 NoteED Patient Education Note Obstetrics and Gynecology Pelvic Pain, Female Pelvic pain is pain in your lower abdomen, below your belly button and between your hips. The pain may start suddenly (be acute), keep coming back (be recurring), or last a long time (become chronic). Pelvic pain that lasts longer than 6 months is considered chronic. Pelvic pain may affect your: ? Reproductive organs. ? Urinary system. ? Digestive tract. ? Musculoskeletal system. There are many potential causes of pelvic pain. Sometimes, the pain can be a result of digestive orurinary conditions, strained muscles or ligaments, or reproductive conditions. Sometimes the cause of pelvic pain is not known. Follow these instructions at home: ? Take ppfq-xlb-bjkqpbn and prescription medicines only as told by your health care provider. ? Rest as told by your health care provider. ? Do not have sex if it hurts. ? Keep a journal of your pelvic pain. Write down: ? When the pain started. ? Where the pain is located. ? What seems to make the pain better or worse, such as food or your monthly period (menstrual cycle). ? Any symptoms you have along with the pain. ? Keep all follow-up visits. This is important. Contact a health care provider if: ? Medicine does not help your pain, or your pain comes back. ? You have new symptoms. ? You have abnormal vaginal discharge or bleeding, including bleeding after menopause. ? You have a fever or chills. ? You are constipated. ? You have blood in your urine or stool (feces). ? You have foul-smelling urine. ? You feel weak or light-headed. Get help right away if: ? You have sudden severe pain. ? Your pain gets steadily worse. ? You have severe pain along with fever, nausea, vomiting, or excessive sweating. ? You lose consciousness. These symptoms may represent a serious problem that is an emergency. Do not wait to see if the symptoms will go away. Get medical help right away. Call your local emergency services (911 in the [place] Do not drive yourself to the hospital. Summary ? Pelvic pain is pain in your lower abdomen, below your belly button and between your hips. ? There are many potential causes of pelvic pain. ? Keep a journal of your pelvic pain. This information is not intended to replace advice given to you by your health care provider. Make sure you discuss any questions you have with your health care provider. Document Revised: 08/21/2021 Document Reviewed: 08/21/2021 [employer] Patient Education ? 2022 [employer].[facility] 10-30-2023 Evaluation + Plan noteExtracted from: Title:ED Note Author:Siomara Nettles PA-C e:10/30/23 1. Chronic pain (G89.29: [facility] er chronic pain) Orders: ketorolac, 30 mg = 1 mL, Injection, IntraMuscular, Once, Stop date 10/30/23 16:31:00 EDT, STAT, Start date 10/30/23 16:31:00 EDT, 10/30/23 16:31:00 EDT 19-year-old female presents ER complaining of exacerbation of her chronic abdominal pain related to pelvic congestion syndrome. In the ER patient is afebrile vital signs are stable, no acute distress. Nontoxic-appearing. No evidence of peritonitis on exam. Will treat the patient with Toradol in the ER. Chart review shows that the patient has filled more than 20 prescriptions for tramadol from various providers over the course of the last 3 months. Will not prescribe any further narcotics at this time. Patient to follow with vascular surgery and pain management. Patient to return to the ER with any new or worsening symptoms. Patient voices understanding and is agreeable to plan Future Appointments Appointment Date:11/03/2023 10:45:00 AM Scheduled Provider:Fatoumata Gooden MD Location:.Vascular Clinic Appointment Type:Vascular Follow Up (FT) Appointment Date:11/17/2023 01:45:00 PM Scheduled Provider:Cristóbal Granados DO Location:.Pain Mgmt [place] Appointment Type:Pain Management - New (FT) [facility]06-29-2024 Hospital Discharge instructions Patient Education 10/25/2023 14:57:20 Chronic Pain, Adult Chronic Pain, Adult Chronic pain is a type of pain that lasts or keeps coming back for at least 3 6 months. You may have headaches, pain in the abdomen, or pain in other areas of the body. Chronic pain may be related josefina illness, such as fibromyalgia or complex regional pain syndrome. Chronic pain may also be related to an injury or a health condition. Sometimes, the cause of chronic pain is not known. Chronic pain can make it hard for you to do daily activities. If not treated, chronic pain can leadto anxiety and depression. Treatment depends on the cause and severity of your pain. You may need to work with a pain specialist to come up with a treatment plan. The plan may include medicine, counseling, and physical therapy. Many people benefit from a combination of two or more types of treatment to control their pain. Follow these instructions at home: Medicines Take irbo-fzi-fjdbkoa and prescription medicines only as told by your health care provider. Ask your health care provider if the medicine prescribed to you: ?Requires you to avoid driving or using machinery. ?Can cause constipation. You may need to take these actions to prevent or treat constipation: ?Drink enough fluid to keep your urine pale yellow. ?Take nshv-fdi-zgzzbct or prescription medicines. ?Eat foods that are high in fiber, such as beans, whole grains, and fresh fruits and vegetables. ?Limit foods that are high in fat and processed sugars, such as fried or sweet foods. Treatment plan Follow your treatment plan as told by your health care provider. This may include: Gentle, regular exercise. Eating a healthy diet that includes foods such as vegetables, fruits, fish, and lean meats. Cognitive or behavioral therapy that changes the way you think or act in response to the pain. Thismay help improve how you feel. Working with a physical therapist. Meditation, yoga, acupuncture, or massage therapy. Aroma, color, light, or sound therapy. Local electrical stimulation. The electrical pulses help to relieve pain by temporarily stopping the nerve impulses that cause you to feel pain. Injections. These deliver numbing or pain-relieving medicines into the spine or the area of pain. Lifestyle Ask your health care provider whether you should keep a pain diary. Your health care provider will tell you what information to write in the diary. This may include when you have pain, what the pain feels like, and how medicines and other behaviors or treatments help to reduce the pain. Consider talking with a mental health care provider about how to manage chronic pain. Consider joining a chronic pain support group. Try to control or lower your stress levels. Talk with your health care provider about ways to do this. General instructions Learn as much as you can about how to manage your chronic pain. Ask your health care provider if anintensive pain rehabilitation program or a chronic pain specialist would be helpful. Check your pain level as told by your health care provider. Ask your health care provider if you should use a pain scale. It is up to you to get the results of any tests that were done. Ask your health care provider, or the department that is doing the tests, when your results will be ready. Keep all follow-up visits as told by your health care provider. This is important. Contact a health care provider if: Your pain gets worse, or you have new pain. You have trouble sleeping. You have trouble doing your normal activities. Your pain is not controlled with treatment. You have side effects from pain medicine. You feel weak. You notice any other changes that show that your condition is getting worse. Get help right away if: You lose feeling or have numbness in your body. You lose control of bowel or bladder function. Your pain suddenly gets much worse. You develop shaking or chills. You develop confusion. You develop chest pain. You have trouble breathing or shortness of breath. You pass out. You have thoughts about hurting yourself or others. If you ever feel like you may hurt yourself or others, or have thoughts about taking your own life,get help right away. Go to your nearest emergency department or: Call your local emergency services (911 in the [place] Call a suicide crisis helpline, such as the National Suicide Prevention Lifeline at or 148 in the [place] This is open 24 hours a day in the [place] Text the Crisis Text Line at 265492 (in the [place] Summary Chronic pain is a type of pain that lasts or keeps coming back for at least 3 6 months. Chronic pain may be related to an illness, injury, or other health condition. Sometimes, the cause of chronic pain is not known. Treatment depends on the cause and severity of your pain. Many people benefit from a combination of two or more types of treatment to control their pain. Follow your treatment plan as told by your health care provider. This information is not intended to replace advice given to you by your health care provider. Make sure you discuss any questions you have with your health care provider. Document Revised: 08/29/2022 Document Reviewed: 12/30/2019 [employer] Patient Education 2022 [employer]. Follow Up Care 10/25/2023 13:29:29 With:Lorir Ireland Address: [address] [place] [address], [place] [phone] Business (1) When:Within 3 Day(s) [facility]06-29-2024 NoteED Patient Education Note Mental and Behavioral Health Chronic Pain, Adult Chronic pain is a type of pain that lasts or keeps coming back for at least 3?6 months. You may have headaches, pain in the abdomen, or pain in other areas of the body. Chronic pain may be related josefina illness, such as fibromyalgia or complex regional pain syndrome. Chronic pain may also be related to an injury or a health condition. Sometimes, the cause of chronic pain is not known. Chronic pain can make it hard for you to do daily activities. If not treated, chronic pain can leadto anxiety and depression. Treatment depends on the cause and severity of your pain. You may need to work with a pain specialist to come up with a treatment plan. The plan may include medicine, counseling, and physical therapy. Many people benefit from a combination of two or more types of treatment to control their pain. Follow these instructions at home: Medicines ? Take jacj-oiw-kiayrsl and prescription medicines only as told by your health care provider. ? Ask your health care provider if the medicine prescribed to you: ? Requires you to avoid driving or using machinery. ? Can cause constipation. You may need to take these actions to prevent or treat constipation: ? Drink enough fluid to keep your urine pale yellow. ? Take dbdk-jnm-oxvpoah or prescription medicines. ? Eat foods that are high in fiber, such as beans, whole grains, and fresh fruits and vegetables. ? Limit foods that are high in fat and processed sugars, such as fried or sweet foods. Treatment plan Follow your treatment plan as told by your health care provider. This may include: ? Gentle, regular exercise. ? Eating a healthy diet that includes foods such as vegetables, fruits, fish, and lean meats. ? Cognitive or behavioral therapy that changes the way you think or act in response to the pain. This may help improve how you feel. ? Working with a physical therapist. ? Meditation, yoga, acupuncture, or massage therapy. ? Aroma, color, light, or sound therapy. ? Local electrical stimulation. The electrical pulses help to relieve pain by temporarily stopping the nerve impulses that cause you to feel pain. ? Injections. These deliver numbing or pain-relieving medicines into the spine or the area of pain. Lifestyle ? Ask your health care provider whether you should keep a pain diary. Your health care provider will tell you what information to write in the diary. This may include when you have pain, what the pain feels like, and how medicines and other behaviors or treatments help to reduce the pain. ? Consider talking with a mental health care provider about how to manage chronic pain. ? Consider joining a chronic pain support group. ? Try to control or lower your stress levels. Talk with your health care provider about ways to do this. General instructions ? Learn as much as you can about how to manage your chronic pain. Ask your health care provider if an intensive pain rehabilitation program or a chronic pain specialist would be helpful. ? Check your pain level as told by your health care provider. Ask your health care provider if you should use a pain scale. ? It is up to you to get the results of any tests that were done. Ask your health care provider, orthe department that is doing the tests, when your results will be ready. ? Keep all follow-up visits as told by your health care provider. This is important. Contact a health care provider if: ? Your pain gets worse, or you have new pain. ? You have trouble sleeping. ? You have trouble doing your normal activities. ? Your pain is not controlled with treatment. ? You have side effects from pain medicine. ? You feel weak. ? You notice any other changes that show that your condition is getting worse. Get help right away if: ? You lose feeling or have numbness in your body. ? You lose control of bowel or bladder function. ? Your pain suddenly gets much worse. ? You develop shaking or chills. ? You develop confusion. ? You develop chest pain. ? You have trouble breathing or shortness of breath. ? You pass out. ? You have thoughts about hurting yourself or others. If you ever feel like you may hurt yourself or others, or have thoughts about taking your own life,get help right away. Go to your nearest emergency department or: ? Call your local emergency services (221 in the [place] ? Call a suicide crisis helpline, such as the National Suicide Prevention Lifeline at or 862 in the [place] This is open 24 hours a day in the [place] ? Text the Crisis Text Line at 264171 (in the [place] Summary ? Chronic pain is a type of pain that lasts or keeps coming back for at least 3?6 months. ? Chronic pain may be related to an illness, injury, or other health condition. Sometimes, the cause of chronic pain is not known. ? Treatment depends on the cause and (more content not included)...[facility]06-29-2024 Evaluation + Plan noteExtracted from: Title:ED Note Author:Hank LUKE, Ulisses Simmons te:10/25/23 Chronic pain in female pelvi s (R10.2: Pelvic and perineal pain) Other chronic pain (G89.29: Other chronic pain) Orders: tramadol, 50 mg = 1 tab(s), Oral, q6hr, PRN for pain, X 3 day(s), # 12 tab(s), Refills(s) 0, Pharmacy: [facility] #[id number], 160, cm, 10/25/23 13:44:00 EDT, Height/Length Dosing, 65, kg, 10/25/23 13:44:00 EDT, Weight Dosing tramadol, 50 mg = 1 tab(s), Oral, q6hr, PRN for pain, X 3 day(s), # 12 tab(s), Refills(s) 0, Pharmacy: [facility]/pharmacy #[id number], 160, cm, 10/25/23 13:44:00 EDT, Height/Length Dosing, 65, kg, 10/25/23 13:44:00 EDT, Weight Dosing Future Appointments Appointment Date:11/03/2023 10:45:00 AM Scheduled Provider:Fatoumata Gooden MD Location:[facility] Clinic Appointment Type:Vascular Follow Up (FT) [facility]06-25-2024 Hospital Discharge instructions Patient Education 10/21/2023 20:44:31 Pelvic Pain, Female Pelvic Pain, Female Pelvic pain is pain in your lower abdomen, below your belly button and between your hips. The pain may start suddenly (be acute), keep coming back (be recurring), or last a long time (become chronic). Pelvic pain that lasts longer than 6 months is considered chronic. Pelvic pain may affect your: Reproductive organs. Urinary system. Digestive tract. Musculoskeletal system. There are many potential causes of pelvic pain. Sometimes, the pain can be a result of digestive orurinary conditions, strained muscles or ligaments, or reproductive conditions. Sometimes the cause of pelvic pain is not known. Follow these instructions at home: Take zshu-lkt-sbephrg and prescription medicines only as told by your health care provider. Rest as told by your health care provider. Do not have sex if it hurts. Keep a journal of your pelvic pain. Write down: ?When the pain started. ?Where the pain is located. ?What seems to make the pain better or worse, such as food or your monthly period (menstrual cycle). ?Any symptoms you have along with the pain. Keep all follow-up visits. This is important. Contact a health care provider if: Medicine does not help your pain, or your pain comes back. You have new symptoms. You have abnormal vaginal discharge or bleeding, including bleeding after menopause. You have a fever or chills. You are constipated. You have blood in your urine or stool (feces). You have foul-smelling urine. You feel weak or light-headed. Get help right away if: You have sudden severe pain. Your pain gets steadily worse. You have severe pain along with fever, nausea, vomiting, or excessive sweating. You lose consciousness. These symptoms may represent a serious problem that is an emergency. Do not wait to see if the symptoms will go away. Get medical help right away. Call your local emergency services (911 in the [place] Do not drive yourself to the hospital. Summary Pelvic pain is pain in your lower abdomen, below your belly button and between your hips. There are many potential causes of pelvic pain. Keep a journal of your pelvic pain. This information is not intended to replace advice given to you by your health care provider. Make sure you discuss any questions you have with your health care provider. Document Revised: 08/21/2021 Document Reviewed: 08/21/2021 [employer] Patient Education 2022 [employer]. Follow Up Care 10/21/2023 18:15:22 With:Cristóbal Granados Address: [address] [place] [phone] Business (1) When:10/24/2023 20:02:45 With:Pain Clinic: [facility] [phone] Address:Unknown When:10/24/2023 20:02:13 With:Lorri Ireland Address: [address] [place] [address], [address] [place] [address]- Business (1) When:Within 3 Day(s) [facility]06-23-2024 Hospital Discharge instructions Follow Up Care 10/19/2023 12:42:32 With:Fatoumata Gooden Address: [address] [place] [phone] Business (1) When:10/22/2023 13:57:04 With:Lorri Ireland Address: [address] [place] [address], [address] [place] [address]- Business (1) When:Within 3 Day(s) [facility]06-23-2024 Evaluation + Plan noteExtracted from: Title:ED Note Author:Hank LUKE, Ulisses Simmons te:10/19/23 Chronic female pelvic pain ( R10.2: Pelvic and perineal pain) Other chronic pain (G89.29: Other chronic pain) Orders: ondansetron, 4 mg = 1 tab(s), Oral, q8hr, PRN Nausea/Vomiting, # 20 tab(s), Refills(s) 0, Pharmacy: [facility]/pharmacy #[id number], 160, cm, 10/19/23 12:58:00 EDT, Height/Length Dosing, 65, kg, 10/19/23 12:58:00 EDT, Weight Dosing tramadol, 50 mg = 1 tab(s), Oral, q6hr, PRN for pain, X 3 day(s), # 10 tab(s), Refills(s) 0, Pharmacy: [facility]/pharmacy #[id number], 160, cm, 10/19/23 12:58:00 EDT, Height/Length Dosing, 65, kg, 10/19/23 12:58:00 EDT, Weight Dosing [facility]06-21-2024 Hospital Discharge instructions Patient Education 10/17/2023 18:49:44 Abdominal Pain, Adult, Ljbg-ad-Lfiw Abdominal Pain, Adult Many things can cause belly (abdominal) pain. Most times, belly pain is not dangerous. Many cases of belly pain can be watched and treated at home. Sometimes, though, belly pain is serious. Your doctor will try to find the cause of your belly pain. Follow these instructions at home: Medicines Take exfh-lga-npbqdwv and prescription medicines only as told by your doctor. Do not take medicines that help you poop (laxatives) unless told by your doctor. General instructions Watch your belly pain for any changes. Drink enough fluid to keep your pee (urine) pale yellow. Keep all follow-up visits as told by your doctor. This is important. Contact a doctor if: Your belly pain changes or gets worse. You are not hungry, or you lose weight without trying. You are having trouble pooping (constipated) or have watery poop (diarrhea) for more than 2 3 days. You have pain when you pee or poop. Your belly pain wakes you up at night. Your pain gets worse with meals, after eating, or with certain foods. You are vomiting and cannot keep anything down. You have a fever. You have blood in your pee. Get help right away if: Your pain does not go away as soon as your doctor says it should. You cannot stop vomiting. Your pain is only in areas of your belly, such as the right side or the left lower part of the belly. You have bloody or black poop, or poop that looks like tar. You have very bad pain, cramping, or bloating in your belly. You have signs of not having enough fluid or water in your body (dehydration), such as: ?Dark pee, very little pee, or no pee. ?Cracked lips. ?Dry mouth. ?Sunken eyes. ?Sleepiness. ?Weakness. You have trouble breathing or chest pain. Summary Many cases of belly pain can be watched and treated at home. Watch your belly pain for any changes. Take yvdn-hah-hytfzwx and prescription medicines only as told by your doctor. Contact a doctor if your belly pain changes or gets worse. Get help right away if you have very bad pain, cramping, or bloating in your belly. This information is not intended to replace advice given to you by your health care provider. Make sure you discuss any questions you have with your health care provider. Document Revised: 08/23/2019 Document Reviewed: 08/23/2019 [employer] Patient Education 2022 [employer]. Follow Up Care 10/17/2023 17:14:00 With:Fatoumata Gooden Address: [address] [place], [place] [phone] Business (1) When:10/20/2023 18:49:28 Comments:Follow-up with Dr. Gooden for further management of care. With:Lorri Ireland Address: [address] [place] [address], [address] [id number] Business (1) When:10/20/2023 18:48:43 [facility]06-09-2024 Hospital Discharge instructions Follow Up Care 10/05/2023 19:21:54 With:Lorri Ireland Address: [address] [place] [address], [facility] [address] [place] [address] Business (1) When:10/08/2023 20:32:53 Comments:Call Dr for diagnosis based follow up [facility]06-06-2024 Evaluation + Plan noteExtracted from: Title:ED Note Author:Vivian Ochoa DO Date :10/02/23 Chronic abdominal pain (R10. 9: Unspecified abdominal pain) Other chronic pain (G89.29: Other chronic pain) Orders: U Beta Hcg Qual UA with Cult Rflx Addendum by Arpita Layton As patricia H on October 02, 2023 09:13:47 EDT The care of the patient was transitioned to co upon shift change to follow-up with urine analysis and final disposition. The patient has presented with chronic pelvic pain. She states she is scheduled for surgery with Dr. Gooden for stenting. The patient states this is the same pain that she has had in the past. She reported some dysuria. The patient was examined by me. Her abdomen completely benign. No tenderness, no guarding. The urine is negative. Urine shows no infection. Will discharge patient home with few tablets of tramadol. She is instructed to follow-up with her primary doctor and [facility]. She is instructed to return to the emergency room if her pain gets worse or any new symptoms. [facility]06-06-2024 Hospital Discharge instructions Patient Education 10/02/2023 07:48:34 Dysuria Dysuria Dysuria is pain or discomfort during urination. The pain or discomfort may be felt in the part of the body that drains urine from the bladder (urethra) or in the surrounding tissue of the genitals. The pain may also be felt in the groin area, lower abdomen, or lower back. You may have to urinate frequently or have the sudden feeling that you have to urinate (urgency). Dysuria can affect anyone, but it is more common in females. Dysuria can be caused by many different things, including: Urinary tract infection. Kidney stones or bladder stones. Certain STIs (sexually transmitted infections), such as chlamydia. Dehydration. Inflammation of the tissues of the vagina. Use of certain medicines. Use of certain soaps or scented products that cause irritation. Follow these instructions at home: Medicines Take kdcy-qar-hfmczph and prescription medicines only as told by your health care provider. If you were prescribed an antibiotic medicine, take it as told by your health care provider. Do notstop taking the antibiotic even if you start to feel better. Eating and drinking Drink enough fluid to keep your urine pale yellow. Avoid caffeinated beverages, tea, and alcohol. These beverages can irritate the bladder and make dysuria worse. In males, alcohol may irritate the prostate. General instructions Watch your condition for any changes. Urinate often. Avoid holding urine for long periods of time. If you are female, you should wipe from front to back after urinating or having a bowel movement. Use each piece of toilet paper only once. Empty your bladder after sex. Keep all follow-up visits. This is important. If you had any tests done to find the cause of dysuria, it is up to you to get your test results. Ask your health care provider, or the department that is doing the test, when your results will be ready. Contact a health care provider if: You have a fever. You develop pain in your back or sides. You have nausea or vomiting. You have blood in your urine. You are not urinating as often as you usually do. Get help right away if: Your pain is severe and not relieved with medicines. You cannot eat or drink without vomiting. You are confused. You have a rapid heartbeat while resting. You have shaking or chills. You feel extremely weak. Summary Dysuria is pain or discomfort while urinating. Many different conditions can lead to dysuria. If you have dysuria, you may have to urinate frequently or have the sudden feeling that you have tourinate (urgency). Watch your condition for any changes. Keep all follow-up visits. Make sure that you urinate often and drink enough fluid to keep your urine pale yellow. This information is not intended to replace advice given to you by your health care provider. Make sure you discuss any questions you have with your health care provider. Document Revised: 11/24/2020 Document Reviewed: 11/24/2020 [employer] Patient Education 2022 [employer]. 10/02/2023 07:48:34 Abdominal Pain, Adult Abdominal Pain, Adult Pain in the abdomen (abdominal pain) can be caused by many things. Often, abdominal pain is not serious and it gets better with no treatment or by being treated at home. However, sometimes abdominal pain is serious. Your health care provider will ask questions about your medical history and do a physical exam to try to determine the cause of your abdominal pain. Follow these instructions at home: Medicines Take qiav-ckl-ezxrbfw and prescription medicines only as told by your health care provider. Do not take a laxative unless told by your health care provider. General instructions Watch your condition for any changes. Drink enough fluid to keep your urine pale yellow. Keep all follow-up visits as told by your health care provider. This is important. Contact a health care provider if: Your abdominal pain changes or gets worse. You are not hungry or you lose weight without trying. You are constipated or have diarrhea for more than 2 3 days. You have pain when you urinate or have a bowel movement. Your abdominal pain wakes you up at night. Your pain gets worse with meals, after eating, or with certain foods. You are vomiting and cannot keep anything down. You have a fever. You have blood in your urine. Get help right away if: Your pain does not go away as soon as your health care provider told you to expect. You cannot stop vomiting. Your pain is only in areas of the abdomen, such as the right side or the left lower portion of the abdomen. Pain on the right side could be caused by appendicitis. You have bloody or black stools, or stools that look like tar. You have severe pain, cramping, or bloating in your abdomen. You have signs of dehydration, such as: ?Dark urine, very little urine, or no urine. ?Cracked lips. ?Dry mouth. ?Sunken eyes. ?Sleepiness. ?Weakness. You have trouble breathing or chest pain. Summary Often, abdominal pain is not serious and it gets better with no treatment or by being treated at home. However, sometimes abdominal pain is serious. Watch your condition for any changes. Take rjif-vgf-fvdieaz and prescription medicines only as told by your health care provider. Contact a health care provider if your abdominal pain changes or gets worse. Get help right away if you have severe pain, cramping, or bloating in your abdomen. This information is not intended to replace advice given to you by your health care provider. Make sure you discuss any questions you have with your health care provider. Document Revised: 06/02/2020 Document Reviewed: 08/23/2019 [employer] Patient Education 2022 [employer]. 10/02/2023 07:48:34 Chronic Pain, Adult Chronic Pain, Adult Chronic pain is a type of pain that lasts or keeps coming back for at least 3 6 months. You may have headaches, pain in the abdomen, or pain in other areas of the body. Chronic pain may be related josefina illness, such as fibromyalgia or complex regional pain syndrome. Chronic pain may also be related to an injury or a health condition. Sometimes, the cause of chronic pain is not known. Chronic pain can make it hard for you to do daily activities. If not treated, chronic pain can leadto anxiety and depression. Treatment depends on the cause and severity of your pain. You may need to work with a pain specialist to come up with a treatment plan. The plan may include medicine, counseling, and physical therapy. Many people benefit from a combination of two or more types of treatment to control their pain. Follow these instructions at home: Medicines Take dfom-tmd-eprovxm and prescription medicines only as told by your health care provider. Ask your health care provider if the medicine prescribed to you: ?Requires you to avoid driving or using machinery. ?Can cause constipation. You may need to take these actions to prevent or treat constipation: ?Drink enough fluid to keep your urine pale yellow. ?Take hpjj-bcm-vvrasim or prescription medicines. ?Eat foods that are high in fiber, such as beans, whole grains, and fresh fruits and vegetables. ?Limit foods that are high in fat and processed sugars, such as fried or sweet foods. Treatment plan Follow your treatment plan as told by your health care provider. This may include: Gentle, regular exercise. Eating a healthy diet that includes foods such as vegetables, fruits, fish, and lean meats. Cognitive or behavioral therapy that changes the way you think or act in response to the pain. Thismay help improve how you feel. Working with a physical therapist. Meditation, yoga, acupuncture, or massage therapy. Aroma, color, light, or sound therapy. Local electrical stimulation. The electrical pulses help to relieve pain by temporarily stopping the nerve impulses that cause you to feel pain. Injections. These deliver numbing or pain-relieving medicines into the spine or the area of pain. Lifestyle Ask your health care provider whether you should keep a pain diary. Your health care provider will tell you what information to write in the diary. This may include when you have pain, what the pain feels like, and how medicines and other behaviors or treatments help to reduce the pain. Consider talking with a mental health care provider about how to manage chronic pain. Consider joining a chronic pain support group. Try to control or lower your stress levels. Talk with your health care provider about ways to do this. General instructions Learn as much as you can about how to manage your chronic pain. Ask your health care provider if anintensive pain rehabilitation program or a chronic pain specialist would be helpful. Check your pain level as told by your health care provider. Ask your health care provider if you should use a pain scale. It is up to you to get the results of any tests that were done. Ask your health care provider, or the department that is doing the tests, when your results will be ready. Keep all follow-up visits as told by your health care provider. This is important. Contact a health care provider if: Your pain gets worse, or you have new pain. You have trouble sleeping. You have trouble doing your normal activities. Your pain is not controlled with treatment. You have side effects from pain medicine. You feel weak. You notice any other changes that show that your condition is getting worse. Get help right away if: You lose feeling or have numbness in your body. You lose control of bowel or bladder function. Your pain suddenly gets much worse. You develop shaking or chills. You develop confusion. You develop chest pain. You have trouble breathing or shortness of breath. You pass out. You have thoughts about hurting yourself or others. If you ever feel like you may hurt yourself or others, or have thoughts about taking your own life,get help right away. Go to your nearest emergency department or: Call your local emergency services (908 in the [place] Call a suicide crisis helpline, such as the National Suicide Prevention Lifeline at or 245 in the [place] This is open 24 hours a day in the [place] Text the Crisis Text Line at 611496 (in the [place] Summary Chronic pain is a type of pain that lasts or keeps coming back for at least 3 6 months. Chronic pain may be related to an illness, injury, or other health condition. Sometimes, the cause of chronic pain is not known. Treatment depends on the cause and severity of your pain. Many people benefit from a combination of two or more types of treatment to control their pain. Follow your treatment plan as told by your health care provider. This information is not intended to replace advice given to you by your health care provider. Make sure you discuss any questions you have with your health care provider. Document Revised: 08/29/2022 Document Reviewed: 12/30/2019 [employer] Patient Education 2022 [employer]. Follow Up Care 10/02/2023 06:24:31 With:Lorri Ireland Address: [address] [place] [address], [address] Business (1) When:10/05/2023 07:39:36 Comments:Return to the emergency room if your pain gets worse, vomiting, fever or any new symptoms. [facility]06-01-2024 Evaluation + Plan noteExtracted from: Title:ED Note Author:Sy Pickard PA-C te:09/27/23 Chronic pain in female pelvi s (R10.2: Pelvic and perineal pain) Other chronic pain (G89.29: Other chronic pain) Orders: tramadol, 50 mg = 1 tab(s), Tab, Oral, Once, Stop date 09/27/23 10:37:00 EDT, STAT, Start date 09/27/23 10:37:00 EDT, 09/27/23 10:37:00 EDT [facility]06-01-2024 Hospital Discharge instructions Patient Education 09/27/2023 10:45:34 Chronic Pain, Adult Chronic Pain, Adult Chronic pain is a type of pain that lasts or keeps coming back for at least 3 6 months. You may have headaches, pain in the abdomen, or pain in other areas of the body. Chronic pain may be related josefina illness, such as fibromyalgia or complex regional pain syndrome. Chronic pain may also be related to an injury or a health condition. Sometimes, the cause of chronic pain is not known. Chronic pain can make it hard for you to do daily activities. If not treated, chronic pain can leadto anxiety and depression. Treatment depends on the cause and severity of your pain. You may need to work with a pain specialist to come up with a treatment plan. The plan may include medicine, counseling, and physical therapy. Many people benefit from a combination of two or more types of treatment to control their pain. Follow these instructions at home: Medicines Take afho-sbn-eprvojv and prescription medicines only as told by your health care provider. Ask your health care provider if the medicine prescribed to you: ?Requires you to avoid driving or using machinery. ?Can cause constipation. You may need to take these actions to prevent or treat constipation: ?Drink enough fluid to keep your urine pale yellow. ?Take bsrt-tgi-bjqwbof or prescription medicines. ?Eat foods that are high in fiber, such as beans, whole grains, and fresh fruits and vegetables. ?Limit foods that are high in fat and processed sugars, such as fried or sweet foods. Treatment plan Follow your treatment plan as told by your health care provider. This may include: Gentle, regular exercise. Eating a healthy diet that includes foods such as vegetables, fruits, fish, and lean meats. Cognitive or behavioral therapy that changes the way you think or act in response to the pain. Thismay help improve how you feel. Working with a physical therapist. Meditation, yoga, acupuncture, or massage therapy. Aroma, color, light, or sound therapy. Local electrical stimulation. The electrical pulses help to relieve pain by temporarily stopping the nerve impulses that cause you to feel pain. Injections. These deliver numbing or pain-relieving medicines into the spine or the area of pain. Lifestyle Ask your health care provider whether you should keep a pain diary. Your health care provider will tell you what information to write in the diary. This may include when you have pain, what the pain feels like, and how medicines and other behaviors or treatments help to reduce the pain. Consider talking with a mental health care provider about how to manage chronic pain. Consider joining a chronic pain support group. Try to control or lower your stress levels. Talk with your health care provider about ways to do this. General instructions Learn as much as you can about how to manage your chronic pain. Ask your health care provider if anintensive pain rehabilitation program or a chronic pain specialist would be helpful. Check your pain level as told by your health care provider. Ask your health care provider if you should use a pain scale. It is up to you to get the results of any tests that were done. Ask your health care provider, or the department that is doing the tests, when your results will be ready. Keep all follow-up visits as told by your health care provider. This is important. Contact a health care provider if: Your pain gets worse, or you have new pain. You have trouble sleeping. You have trouble doing your normal activities. Your pain is not controlled with treatment. You have side effects from pain medicine. You feel weak. You notice any other changes that show that your condition is getting worse. Get help right away if: You lose feeling or have numbness in your body. You lose control of bowel or bladder function. Your pain suddenly gets much worse. You develop shaking or chills. You develop confusion. You develop chest pain. You have trouble breathing or shortness of breath. You pass out. You have thoughts about hurting yourself or others. If you ever feel like you may hurt yourself or others, or have thoughts about taking your own life,get help right away. Go to your nearest emergency department or: Call your local emergency services (732 in the [place] Call a suicide crisis helpline, such as the National Suicide Prevention Lifeline at or 243 in the [place] This is open 24 hours a day in the [place] Text the Crisis Text Line at 136054 (in the [place] Summary Chronic pain is a type of pain that lasts or keeps coming back for at least 3 6 months. Chronic pain may be related to an illness, injury, or other health condition. Sometimes, the cause of chronic pain is not known. Treatment depends on the cause and severity of your pain. Many people benefit from a combination of two or more types of treatment to control their pain. Follow your treatment plan as told by your health care provider. This information is not intended to replace advice given to you by your health care provider. Make sure you discuss any questions you have with your health care provider. Document Revised: 08/29/2022 Document Reviewed: 12/30/2019 [employer] Patient Education 2022 [employer]. Follow Up Care 09/27/2023 10:30:49 With:Lorri Ireland Address: [address] [place] [address], [address] [place] [address] Business (1) When:09/30/2023 10:37:30 [facility]05-31-2024 Hospital Discharge instructions Patient Education 09/26/2023 16:26:05 Dysuria Dysuria Dysuria is pain or discomfort during urination. The pain or discomfort may be felt in the part of the body that drains urine from the bladder (urethra) or in the surrounding tissue of the genitals. The pain may also be felt in the groin area, lower abdomen, or lower back. You may have to urinate frequently or have the sudden feeling that you have to urinate (urgency). Dysuria can affect anyone, but it is more common in females. Dysuria can be caused by many different things, including: Urinary tract infection. Kidney stones or bladder stones. Certain STIs (sexually transmitted infections), such as chlamydia. Dehydration. Inflammation of the tissues of the vagina. Use of certain medicines. Use of certain soaps or scented products that cause irritation. Follow these instructions at home: Medicines Take usab-fgq-osyldnt and prescription medicines only as told by your health care provider. If you were prescribed an antibiotic medicine, take it as told by your health care provider. Do notstop taking the antibiotic even if you start to feel better. Eating and drinking Drink enough fluid to keep your urine pale yellow. Avoid caffeinated beverages, tea, and alcohol. These beverages can irritate the bladder and make dysuria worse. In males, alcohol may irritate the prostate. General instructions Watch your condition for any changes. Urinate often. Avoid holding urine for long periods of time. If you are female, you should wipe from front to back after urinating or having a bowel movement. Use each piece of toilet paper only once. Empty your bladder after sex. Keep all follow-up visits. This is important. If you had any tests done to find the cause of dysuria, it is up to you to get your test results. Ask your health care provider, or the department that is doing the test, when your results will be ready. Contact a health care provider if: You have a fever. You develop pain in your back or sides. You have nausea or vomiting. You have blood in your urine. You are not urinating as often as you usually do. Get help right away if: Your pain is severe and not relieved with medicines. You cannot eat or drink without vomiting. You are confused. You have a rapid heartbeat while resting. You have shaking or chills. You feel extremely weak. Summary Dysuria is pain or discomfort while urinating. Many different conditions can lead to dysuria. If you have dysuria, you may have to urinate frequently or have the sudden feeling that you have tourinate (urgency). Watch your condition for any changes. Keep all follow-up visits. Make sure that you urinate often and drink enough fluid to keep your urine pale yellow. This information is not intended to replace advice given to you by your health care provider. Make sure you discuss any questions you have with your health care provider. Document Revised: 11/24/2020 Document Reviewed: 11/24/2020 [employer] Patient Education 2022 [employer]. Follow Up Care 09/26/2023 15:08:18 With:Lorri Ireland Address: [address] [place] [address], [address] Business (1) When:09/29/2023 16:17:44 [facility]05-31-2024 Evaluation + Plan noteExtracted from: Title:ED Note Author:Daxa Donis PA-C Date:09/26/23 1. Dysuria (R30.0: Dysuria) Orders: phenazopyridine, 200 mg = 1 tab(s), Oral, TID, X 7 day(s), # 21 tab(s), Refills(s) 0, Pharmacy: [facility]/pharmacy #[id number], 160, cm, 09/26/23 15:23:00 EDT, Height/Length Dosing, 65, kg, 09/26/23 15:23:00 EDT, Weight Dosing U Beta Hcg Qual UA with Cult Rflx [facility]05-29-2024 Hospital Discharge instructions Patient Education 09/24/2023 16:32:50 Dysuria Dysuria Dysuria is pain or discomfort during urination. The pain or discomfort may be felt in the part of the body that drains urine from the bladder (urethra) or in the surrounding tissue of the genitals. The pain may also be felt in the groin area, lower abdomen, or lower back. You may have to urinate frequently or have the sudden feeling that you have to urinate (urgency). Dysuria can affect anyone, but it is more common in females. Dysuria can be caused by many different things, including: Urinary tract infection. Kidney stones or bladder stones. Certain STIs (sexually transmitted infections), such as chlamydia. Dehydration. Inflammation of the tissues of the vagina. Use of certain medicines. Use of certain soaps or scented products that cause irritation. Follow these instructions at home: Medicines Take vnly-bzs-zvjinas and prescription medicines only as told by your health care provider. If you were prescribed an antibiotic medicine, take it as told by your health care provider. Do notstop taking the antibiotic even if you start to feel better. Eating and drinking Drink enough fluid to keep your urine pale yellow. Avoid caffeinated beverages, tea, and alcohol. These beverages can irritate the bladder and make dysuria worse. In males, alcohol may irritate the prostate. General instructions Watch your condition for any changes. Urinate often. Avoid holding urine for long periods of time. If you are female, you should wipe from front to back after urinating or having a bowel movement. Use each piece of toilet paper only once. Empty your bladder after sex. Keep all follow-up visits. This is important. If you had any tests done to find the cause of dysuria, it is up to you to get your test results. Ask your health care provider, or the department that is doing the test, when your results will be ready. Contact a health care provider if: You have a fever. You develop pain in your back or sides. You have nausea or vomiting. You have blood in your urine. You are not urinating as often as you usually do. Get help right away if: Your pain is severe and not relieved with medicines. You cannot eat or drink without vomiting. You are confused. You have a rapid heartbeat while resting. You have shaking or chills. You feel extremely weak. Summary Dysuria is pain or discomfort while urinating. Many different conditions can lead to dysuria. If you have dysuria, you may have to urinate frequently or have the sudden feeling that you have tourinate (urgency). Watch your condition for any changes. Keep all follow-up visits. Make sure that you urinate often and drink enough fluid to keep your urine pale yellow. This information is not intended to replace advice given to you by your health care provider. Make sure you discuss any questions you have with your health care provider. Document Revised: 11/24/2020 Document Reviewed: 11/24/2020 [employer] Patient Education 2022 [employer]. Follow Up Care 09/24/2023 15:27:34 With:Fatoumata Gooden Address: [address] [place] [address] Business (1) When:09/27/2023 16:22:39 Comments:Call for diagnosis based follow up With:Lorri Ireland Address: [address], [address] [place] [address]- Business (1) When:09/27/2023 16:22:32 Comments:Call Dr for diagnosis based follow up [facility]05-25-2024 Hospital Discharge instructions Follow Up Care 09/20/2023 12:20:52 With:Lorri Ireland Address: [address], [address] [place] [address] Business (1) When:Within 3 Day(s) [facility]05-25-2024 Evaluation + Plan noteExtracted from: Title:ED Note Author:Justo Arias DO Date:08/27 09/18 Abdominal pain (R10.9: Unspe cified abdominal pain) Ordered: tramadol, 50 mg = 1 tab(s), Oral, q6hr, X 3 day(s), # 12 tab(s), Refills(s) 0, [id number], 160, cm, 09/20/23 12:38:00 EDT, Height/Length Dosing, 65.1, kg, 09/20/23 12:38:00 EDT, Weight Dosing Nausea (R11.0: Nausea) Orders: ondansetron, 4 mg = 1 tab(s), Oral, q6hr, X 3 day(s), # 10 tab(s), Refills(s) 0, [id number], 160, cm, 09/20/23 12:38:00 EDT, Height/Length Dosing, 65.1, kg, 09/20/23 12:38:00 EDT, Weight Dosing Basic Metabolic Panel Beta hCG Qual CBC w/ Auto Diff eGFR Hepatic Function Panel Lipase Level [facility]05-22-2024 Evaluation + Plan noteExtracted from: Title:ED Note Author:Vivian Ochoa DO Date :09/17/23 Acute UTI (N39.0: Urinary tr act infection, site not specified) Orders: dicyclomine, 10 mg = 1 cap(s), Cap, Oral, Once, Stop date 09/17/23 4:46:00 EDT, STAT, Start date 09/17/23 4:46:00 EDT, 09/17/23 4:46:00 EDT dicyclomine, 10 mg = 1 cap(s), Oral, QID, X 7 day(s), # 21 cap(s), Refills(s) 0, Pharmacy: [facility]/pharmacy #[id number], 160, cm, 09/17/23 4:33:00 EDT, Height/Length Dosing, 65.4, kg, 09/17/23 4:33:00 EDT, Weight Dosing nitrofurantoin, 100 mg = 1 cap(s), Oral, q12hr, X 5 day(s), # 10 cap(s), Refills(s) 0, Pharmacy: [facility]/pharmacy #[id number], 160, cm, 09/17/23 4:33:00 EDT, Height/Length Dosing, 65.4, kg, 09/17/23 4:33:00 EDT, Weight Dosing nitrofurantoin, 100 mg = 1 cap(s), Cap, Oral, Once, Stop date 09/17/23 4:52:00 EDT, STAT, Start date 09/17/23 4:52:00 EDT, 09/17/23 4:52:00 EDT phenazopyridine, 200 mg = 2 tab(s), Tab, Oral, Once, Stop date 09/17/23 4:52:00 EDT, STAT, Start date 09/17/23 4:52:00 EDT, 09/17/23 4:52:00 EDT phenazopyridine, 200 mg = 1 tab(s), Oral, TID, X 3 day(s), # 9 tab(s), Refills(s) 0, Pharmacy: [facility]/pharmacy #[id number], 160, cm, 09/17/23 4:33:00 EDT, Height/Length Dosing, 65.4, kg, 09/17/23 4:33:00 EDT, Weight Dosing tramadol, 100 mg = 2 tab(s), Tab, Oral, Once, Stop date 09/17/23 4:52:00 EDT, STAT, Start date 09/17/23 4:52:00 EDT, 09/17/23 4:52:00 EDT tramadol, 50 mg = 1 tab(s), Oral, q6hr, PRN for pain, X 2 day(s), # 7 tab(s), Refills(s) 0, Pharmacy: [facility]/pharmacy #[id number], 160, cm, 09/17/23 4:33:00 EDT, Height/Length Dosing, 65.4, kg, 09/17/23 4:33:00 EDT, Weight Dosing U Beta Hcg Qual UA with Cult Rflx Urine Culture Diagnostic Tests Pending * Urine Culture 09/17/23 [facility]05-22-2024 Hospital Discharge instructions Patient Education 09/17/2023 05:11:08 Urinary Tract Infection, Adult, Ujxm-ep-Uevb Urinary Tract Infection, Adult A urinary tract infection (UTI) is an infection of any part of the urinary tract. The urinary tractincludes: The kidneys. The ureters. The bladder. The urethra. These organs make, store, and get rid of pee (urine) in the body. What are the causes? This infection is caused by germs (bacteria) in your genital area. These germs grow and cause swelling (inflammation) of your urinary tract. What increases the risk? The following factors may make you more likely to develop this condition: Using a small, thin tube (catheter) to drain pee. Not being able to control when you pee or poop (incontinence). Being female. If you are female, these things can increase the risk: ?Using these methods to prevent : ?A medicine that kills sperm (spermicide). ?A device that blocks sperm (diaphragm). ?Having low levels of a female hormone (estrogen). ?Being . You are more likely to develop this condition if: You have genes that add to your risk. You are sexually active. You take antibiotic medicines. You have trouble peeing because of: ?A prostate that is bigger than normal, if you are male. ?A blockage in the part of your body that drains pee from the bladder. ?A kidney stone. ?A nerve condition that affects your bladder. ?Not getting enough to drink. ?Not peeing often enough. You have other conditions, such as: ?Diabetes. ?A weak disease-fighting system (immune system). ?Sickle cell disease. ?Gout. ?Injury of the spine. What are the signs or symptoms? Symptoms of this condition include: Needing to pee right away. Peeing small amounts often. Pain or burning when peeing. Blood in the pee. Pee that smells bad or not like normal. Trouble peeing. Pee that is cloudy. Fluid coming from the vagina, if you are female. Pain in the belly or lower back. Other symptoms include: Vomiting. Not feeling hungry. Feeling mixed up (confused). This may be the first symptom in older adults. Being tired and grouchy (irritable). A fever. Watery poop (diarrhea). How is this treated? Taking antibiotic medicine. Taking other medicines. Drinking enough water. In some cases, you may need to see a specialist. Follow these instructions at home: Medicines Take hqph-fke-afjhjbf and prescription medicines only as told by your doctor. If you were prescribed an antibiotic medicine, take it as told by your doctor. Do not stop taking it even if you start to feel better. General instructions Make sure you: ?Pee until your bladder is empty. ?Do not hold pee for a long time. ?Empty your bladder after sex. ?Wipe from front to back after peeing or pooping if you are a female. Use each tissue one time whenyou wipe. Drink enough fluid to keep your pee pale yellow. Keep all follow-up visits. Contact a doctor if: You do not get better after 1 2 days. Your symptoms go away and then come back. Get help right away if: You have very bad back pain. You have very bad pain in your lower belly. You have a fever. You have chills. You feeling like you will vomit or you vomit. Summary A urinary tract infection (UTI) is an infection of any part of the urinary tract. This condition is caused by germs in your genital area. There are many risk factors for a UTI. Treatment includes antibiotic medicines. Drink enough fluid to keep your pee pale yellow. This information is not intended to replace advice given to you by your health care provider. Make sure you discuss any questions you have with your health care provider. Document Revised: 11/24/2020 Document Reviewed: 11/24/2020 [employer] Patient Education 2022 [employer]. Follow Up Care 09/17/2023 04:26:17 With:Lorri Ireland Address: [address] [place] [address], [address] [place] [address]- Business (1) When:09/20/2023 Comments:Take the antibiotics as prescribed until you have completed the course. You can use the Pyridium every 8 hours as needed for burning. You can use the other medications as prescribed as needed for pain. Please follow-up with your primary care doctor for further evaluation management. Please return to the ED for any new or worsening symptoms. [facility]05-19-2024 Evaluation + Plan noteExtracted from: Title:ED Note Author:Sy Pickard PA-C te:09/14/23 Pelvic congestion syndrome ( N94.89: Other specified conditions associated with female genital organs and menstrual cycle) Ordered: tramadol, 50 mg = 1 tab(s), Oral, q6hr, PRN as needed for pain, X 2 day(s), # 10 tab(s), Refills(s) 0, Pharmacy: [facility]/pharmacy #[id number], 160, cm, 09/14/23 11:13:00 EDT, Height/Length Dosing, 65.1, kg, 09/14/23 11:13:00 EDT, Weight Dosing Future Appointments Appointment Date:09/15/2023 08:45:00 AM Scheduled Provider:Bon DC, Fatoumata Kelsey Location:[facility] Appointment Type:Vascular New Patient ([facility]) [facility]05-19-2024 Hospital Discharge instructions Patient Education 09/14/2023 11:57:28 Abdominal Pain, Adult Abdominal Pain, Adult Pain in the abdomen (abdominal pain) can be caused by many things. Often, abdominal pain is not serious and it gets better with no treatment or by being treated at home. However, sometimes abdominal pain is serious. Your health care provider will ask questions about your medical history and do a physical exam to try to determine the cause of your abdominal pain. Follow these instructions at home: Medicines Take uqci-jwc-konvgej and prescription medicines only as told by your health care provider. Do not take a laxative unless told by your health care provider. General instructions Watch your condition for any changes. Drink enough fluid to keep your urine pale yellow. Keep all follow-up visits as told by your health care provider. This is important. Contact a health care provider if: Your abdominal pain changes or gets worse. You are not hungry or you lose weight without trying. You are constipated or have diarrhea for more than 2 3 days. You have pain when you urinate or have a bowel movement. Your abdominal pain wakes you up at night. Your pain gets worse with meals, after eating, or with certain foods. You are vomiting and cannot keep anything down. You have a fever. You have blood in your urine. Get help right away if: Your pain does not go away as soon as your health care provider told you to expect. You cannot stop vomiting. Your pain is only in areas of the abdomen, such as the right side or the left lower portion of the abdomen. Pain on the right side could be caused by appendicitis. You have bloody or black stools, or stools that look like tar. You have severe pain, cramping, or bloating in your abdomen. You have signs of dehydration, such as: ?Dark urine, very little urine, or no urine. ?Cracked lips. ?Dry mouth. ?Sunken eyes. ?Sleepiness. ?Weakness. You have trouble breathing or chest pain. Summary Often, abdominal pain is not serious and it gets better with no treatment or by being treated at home. However, sometimes abdominal pain is serious. Watch your condition for any changes. Take tnie-odo-queuxlq and prescription medicines only as told by your health care provider. Contact a health care provider if your abdominal pain changes or gets worse. Get help right away if you have severe pain, cramping, or bloating in your abdomen. This information is not intended to replace advice given to you by your health care provider. Make sure you discuss any questions you have with your health care provider. Document Revised: 06/02/2020 Document Reviewed: 08/23/2019 [employer] Patient Education 2022 [employer]. Follow Up Care 09/14/2023 11:06:42 With:Lorri Ireland Address: [address] [place] [address], [address] [place] [address] Business (1) When:09/17/2023 11:48:22 [facility]04-22-2024 Evaluation + Plan noteExtracted from: Title:ED Note Author:Justo Arias DO Date:07/28 06/21 Pelvic pain (R10.2: Pelvic a nd perineal pain) Ordered: tramadol, 50 mg, Oral, q4hr, Take one by mouth every four hours, X 3 day(s), # 10 tab(s), Refills(s) 0, Pharmacy: [facility] #[id number], 160, cm, 08/18/23 10:31:00 EDT, Height/Length Dosing, 64, kg, 08/18/23 10:31:00 EDT, Weight Dosing Orders: U Beta Hcg Qual UA with Cult Rflx [facility]04-22-2024 Hospital Discharge instructions Follow Up Care 08/18/2023 10:23:22 With:your physician at Address:Unknown When:08/21/2023 11:40:28 With:Lorri Ireland Address: [address] [place] [address], [address] [place] [phone] Business (1) When:Within 3 Day(s) [facility]04-18-2024 Hospital Discharge instructions Patient Education 08/14/2023 17:20:57 Pelvic Pain, Female Pelvic Pain, Female Pelvic pain is pain in your lower abdomen, below your belly button and between your hips. The pain may start suddenly (be acute), keep coming back (be recurring), or last a long time (become chronic). Pelvic pain that lasts longer than 6 months is considered chronic. Pelvic pain may affect your: Reproductive organs. Urinary system. Digestive tract. Musculoskeletal system. There are many potential causes of pelvic pain. Sometimes, the pain can be a result of digestive orurinary conditions, strained muscles or ligaments, or reproductive conditions. Sometimes the cause of pelvic pain is not known. Follow these instructions at home: Take srnl-vcb-htdggna and prescription medicines only as told by your health care provider. Rest as told by your health care provider. Do not have sex if it hurts. Keep a journal of your pelvic pain. Write down: ?When the pain started. ?Where the pain is located. ?What seems to make the pain better or worse, such as food or your monthly period (menstrual cycle). ?Any symptoms you have along with the pain. Keep all follow-up visits. This is important. Contact a health care provider if: Medicine does not help your pain, or your pain comes back. You have new symptoms. You have abnormal vaginal discharge or bleeding, including bleeding after menopause. You have a fever or chills. You are constipated. You have blood in your urine or stool (feces). You have foul-smelling urine. You feel weak or light-headed. Get help right away if: You have sudden severe pain. Your pain gets steadily worse. You have severe pain along with fever, nausea, vomiting, or excessive sweating. You lose consciousness. These symptoms may represent a serious problem that is an emergency. Do not wait to see if the symptoms will go away. Get medical help right away. Call your local emergency services (911 in the [place] Do not drive yourself to the hospital. Summary Pelvic pain is pain in your lower abdomen, below your belly button and between your hips. There are many potential causes of pelvic pain. Keep a journal of your pelvic pain. This information is not intended to replace advice given to you by your health care provider. Make sure you discuss any questions you have with your health care provider. Document Revised: 08/21/2021 Document Reviewed: 08/21/2021 [employer] Patient Education 2022 [employer]. Follow Up Care 08/14/2023 14:23:37 With:Miguel Angel Kuo Address: [address] [place] [phone] Business (1) When:08/17/2023 17:07:38 Comments:Make sure to follow-up with Dr. Kuo. Return to the emergency room if your pain gets worse, you develop fever, vaginal discharge or any new symptoms. With:Lorri Ireland Address: [address], [address] [place] [address]- Business (1) When:Within 3 Day(s) [facility]04-18-2024 Evaluation + Plan noteExtracted from: Title:ED Note Author:Hajdari Mary Jane Layton te:08/14/23 1. Chronic pelvic pain in fe male (R10.2: Pelvic and perineal pain) Ordered: tramadol, 50 mg = 1 tab(s), Oral, q8hr, PRN as needed for pain, # 7 tab(s), Refills(s) 0, Pharmacy: [facility]/pharmacy #[id number], 160, cm, 08/14/23 14:48:00 EDT, Height/Length Dosing, 64, kg, 08/14/23 14:48:00 EDT, Weight Dosing Other chronic pain (G89.29: Other chronic pain) Orders: Basic Metabolic Panel CBC w/ Auto Diff eGFR Extra Blue Tube Extra SST Tube U Beta Hcg Qual UA with Cult Rflx [facility]04-14-2024 Hospital Discharge instructions Patient Education 08/10/2023 12:56:06 Pelvic Pain, Female Pelvic Pain, Female Pelvic pain is pain in your lower abdomen, below your belly button and between your hips. The pain may start suddenly (be acute), keep coming back (be recurring), or last a long time (become chronic). Pelvic pain that lasts longer than 6 months is considered chronic. Pelvic pain may affect your: Reproductive organs. Urinary system. Digestive tract. Musculoskeletal system. There are many potential causes of pelvic pain. Sometimes, the pain can be a result of digestive orurinary conditions, strained muscles or ligaments, or reproductive conditions. Sometimes the cause of pelvic pain is not known. Follow these instructions at home: Take enyy-kqe-lztrbdb and prescription medicines only as told by your health care provider. Rest as told by your health care provider. Do not have sex if it hurts. Keep a journal of your pelvic pain. Write down: ?When the pain started. ?Where the pain is located. ?What seems to make the pain better or worse, such as food or your monthly period (menstrual cycle). ?Any symptoms you have along with the pain. Keep all follow-up visits. This is important. Contact a health care provider if: Medicine does not help your pain, or your pain comes back. You have new symptoms. You have abnormal vaginal discharge or bleeding, including bleeding after menopause. You have a fever or chills. You are constipated. You have blood in your urine or stool (feces). You have foul-smelling urine. You feel weak or light-headed. Get help right away if: You have sudden severe pain. Your pain gets steadily worse. You have severe pain along with fever, nausea, vomiting, or excessive sweating. You lose consciousness. These symptoms may represent a serious problem that is an emergency. Do not wait to see if the symptoms will go away. Get medical help right away. Call your local emergency services (911 in the [place] Do not drive yourself to the hospital. Summary Pelvic pain is pain in your lower abdomen, below your belly button and between your hips. There are many potential causes of pelvic pain. Keep a journal of your pelvic pain. This information is not intended to replace advice given to you by your health care provider. Make sure you discuss any questions you have with your health care provider. Document Revised: 08/21/2021 Document Reviewed: 08/21/2021 [employer] Patient Education 2022 [employer]. Follow Up Care 08/10/2023 11:35:32 With:Miguel Angel Kuo Address: [address] [place] [phone] Business (1) When:08/13/2023 12:48:54 [facility]04-14-2024 Evaluation + Plan noteExtracted from: Title:ED Note Author:Sy Pickard PA-C te:08/10/23 Chronic pelvic pain in femal e (R10.2: Pelvic and perineal pain) Ordered: tramadol, 50 mg = 1 tab(s), Oral, q6hr, PRN as needed for pain, Take one tab by mouth every six hours as needed for pain, X 3 day(s), # 8 tab(s), Refills(s) 0, Pharmacy: [facility]/pharmacy #[id number], 160, cm, 08/10/23 11:41:00 EDT, Height/Length Dosing, 66, kg, 08/10/23... Other chronic pain (G89.29: Other chronic pain) Orders: dicyclomine, 20 mg = 1 tab(s), Oral, TID, X 7 day(s), # 21 tab(s), Refills(s) 0, Pharmacy: [facility]/pharmacy #[id number], 160, cm, 08/10/23 11:41:00 EDT, Height/Length Dosing, 66, kg, 08/10/23 11:41:00 EDT, Weight Dosing [facility]04-03-2024 Hospital Discharge instructions Patient Education 07/30/2023 14:39:41 BMI for Adults BMI for Adults What is BMI? Body mass index (BMI) is a number that is calculated from a person's weight and height. BMI can help estimate how much of a person's weight is composed of fat. BMI does not measure body fat directly.Rather, it is an alternative to procedures that directly measure body fat, which can be difficult and expensive. BMI can help identify people who may be at higher risk for certain medical problems. What are BMI measurements used for? BMI is used as a screening tool to identify possible weight problems. It helps determine whether a person is obese, overweight, a healthy weight, or underweight. BMI is useful for: Identifying a weight problem that may be related to a medical condition or may increase the risk for medical problems. Promoting changes, such as changes in diet and exercise, to help reach a healthy weight. BMI screening can be repeated to see if these changes are working. How is BMI calculated? BMI involves measuring your weight in relation to your height. Both height and weight are measured,and the BMI is calculated from those numbers. This can be done either in [place] or metric measurements. Note that charts and online BMI calculators are available to help you find your BMI quickly and easily without having to do these calculations yourself. To calculate your BMI in [place] measurements: 1.Measure your weight in pounds (lb). 2.Multiply the number of pounds by 703. For example, for a person who weighs 180 lb, multiply that number by 703, which equals 126,540. 3.Measure your height in inches. Then multiply that number by itself to get a measurement called inches squared. For example, for a person who is 70 inches tall, the inches squared measurement is 70 inches x 70inches, which equals 4,900 inches squared. 4.Divide the total from step 2 (number of lb x 703) by the total from step 3 (inches squared): 126,540 4,900 = 25.8. This is your BMI. To calculate your BMI in metric measurements: 1.Measure your weight in kilograms (kg). 2.Measure your height in meters (m). Then multiply that number by itself to get a measurement called meters squared. For example, for a person who is 1.75 m tall, the meters squared measurement is 1.75 m x 1.75 m, which is equal to 3.1 meters squared. 3.Divide the number of kilograms (your weight) by the meters squared number. In this example: 70 3.1 = 22.6. This is your BMI. What do the results mean? BMI charts are used to identify whether you are underweight, normal weight, overweight, or obese. The following guidelines will be used: Underweight: BMI less than 18.5. Normal weight: BMI between 18.5 and 24.9. Overweight: BMI between 25 and 29.9. Obese: BMI of 30 or above. Keep these notes in mind: Weight includes both fat and muscle, so someone with a muscular build, such as an athlete, may havea BMI that is higher than 24.9. In cases like these, BMI is not an accurate measure of body fat. To determine if excess body fat is the cause of a BMI of 25 or higher, further assessments may needto be done by a health care provider. BMI is usually interpreted in the same way for men and women. Where to find more information For more information about BMI, including tools to quickly calculate your BMI, go to these websites: Centers for Disease Control and Prevention: www.cdc.gov [place] Heart Association: www.heart.org National Heart, Lung, and Blood [place]: www.nhlbi.nih.gov Summary Body mass index (BMI) is a number that is calculated from a person's weight and height. BMI may help estimate how much of a person's weight is composed of fat. BMI can help identify thosewho may be at higher risk for certain medical problems. BMI can be measured using [place] measurements or metric measurements. BMI charts are used to identify whether you are underweight, normal weight, overweight, or obese. This information is not intended to replace advice given to you by your health care provider. Make sure you discuss any questions you have with your health care provider. Document Revised: 01/05/2020 Document Reviewed: 11/12/2019 [employer] Patient Education 2022 [employer] 07/30/2023 14:39:39 Abdominal Pain, Adult, Mukd-vf-Aymq Abdominal Pain, Adult Many things can cause belly (abdominal) pain. Most times, belly pain is not dangerous. Many cases of belly pain can be watched and treated at home. Sometimes, though, belly pain is serious. Your doctor will try to find the cause of your belly pain. Follow these instructions at home: Medicines Take mcqh-mud-rfbfrbe and prescription medicines only as told by your doctor. Do not take medicines that help you poop (laxatives) unless told by your doctor. General instructions Watch your belly pain for any changes. Drink enough fluid to keep your pee (urine) pale yellow. Keep all follow-up visits as told by your doctor. This is important. Contact a doctor if: Your belly pain changes or gets worse. You are not hungry, or you lose weight without trying. You are having trouble pooping (constipated) or have watery poop (diarrhea) for more than 2 3 days. You have pain when you pee or poop. Your belly pain wakes you up at night. Your pain gets worse with meals, after eating, or with certain foods. You are vomiting and cannot keep anything down. You have a fever. You have blood in your pee. Get help right away if: Your pain does not go away as soon as your doctor says it should. You cannot stop vomiting. Your pain is only in areas of your belly, such as the right side or the left lower part of the belly. You have bloody or black poop, or poop that looks like tar. You have very bad pain, cramping, or bloating in your belly. You have signs of not having enough fluid or water in your body (dehydration), such as: ?Dark pee, very little pee, or no pee. ?Cracked lips. ?Dry mouth. ?Sunken eyes. ?Sleepiness. ?Weakness. You have trouble breathing or chest pain. Summary Many cases of belly pain can be watched and treated at home. Watch your belly pain for any changes. Take ryhk-myf-wmohggb and prescription medicines only as told by your doctor. Contact a doctor if your belly pain changes or gets worse. Get help right away if you have very bad pain, cramping, or bloating in your belly. This information is not intended to replace advice given to you by your health care provider. Make sure you discuss any questions you have with your health care provider. Document Revised: 08/23/2019 Document Reviewed: 08/23/2019 [employer] Patient Education 2022 [employer]. Follow Up Care 07/30/2023 11:06:05 With:Beka SPICER Lorri L Address: [address] [place] [address], [address] [place] [address]- When: Unknown [facility] 03-30-2024 Hospital Discharge instructions Patient Education 07/26/2023 12:11:45 Abdominal Pain, Adult Abdominal Pain, Adult Pain in the abdomen (abdominal pain) can be caused by many things. Often, abdominal pain is not serious and it gets better with no treatment or by being treated at home. However, sometimes abdominal pain is serious. Your health care provider will ask questions about your medical history and do a physical exam to try to determine the cause of your abdominal pain. Follow these instructions at home: Medicines Take xzry-bgx-ttpqqrg and prescription medicines only as told by your health care provider. Do not take a laxative unless told by your health care provider. General instructions Watch your condition for any changes. Drink enough fluid to keep your urine pale yellow. Keep all follow-up visits as told by your health care provider. This is important. Contact a health care provider if: Your abdominal pain changes or gets worse. You are not hungry or you lose weight without trying. You are constipated or have diarrhea for more than 2 3 days. You have pain when you urinate or have a bowel movement. Your abdominal pain wakes you up at night. Your pain gets worse with meals, after eating, or with certain foods. You are vomiting and cannot keep anything down. You have a fever. You have blood in your urine. Get help right away if: Your pain does not go away as soon as your health care provider told you to expect. You cannot stop vomiting. Your pain is only in areas of the abdomen, such as the right side or the left lower portion of the abdomen. Pain on the right side could be caused by appendicitis. You have bloody or black stools, or stools that look like tar. You have severe pain, cramping, or bloating in your abdomen. You have signs of dehydration, such as: ?Dark urine, very little urine, or no urine. ?Cracked lips. ?Dry mouth. ?Sunken eyes. ?Sleepiness. ?Weakness. You have trouble breathing or chest pain. Summary Often, abdominal pain is not serious and it gets better with no treatment or by being treated at home. However, sometimes abdominal pain is serious. Watch your condition for any changes. Take yzgq-les-nbzxacd and prescription medicines only as told by your health care provider. Contact a health care provider if your abdominal pain changes or gets worse. Get help right away if you have severe pain, cramping, or bloating in your abdomen. This information is not intended to replace advice given to you by your health care provider. Make sure you discuss any questions you have with your health care provider. Document Revised: 06/02/2020 Document Reviewed: 08/23/2019 [employer] Patient Education 2022 [employer]. Follow Up Care 07/26/2023 09:36:30 With:Lorri Ireland Address: [address] [place] [address], [address] [facility] (1) When:07/29/2023 12:09:58 Comments:Call the office of your primary care doctor to arrange for follow-up within the above-stated timeframe. Follow-up with your primary care doctor about this ED visit. You should review your labs, imaging, and diagnoses from this ED visit with your primary care physician. There are occasionally non-emergent findings that require additional follow-up after your ED visit. If you were prescribed medications you should discuss possible side-effects and drug interactions with your pharmacist. Call 911 or go to the nearest Emergency Department if you develop any new or worsening symptoms. Seek immediate medical attention if you develop:worsening abdominal pain, new or worsening nausea, new or worsening vomiting, new or worsening diarrhea, chest pain, shortness of breath, pain with urination, problems urinating, fever, chills, weakness, or any new or worsening symptoms. [facility]03-30-2024 Evaluation + Plan noteExtracted from: Title:ED Note Author:Darren Lomax DO Date: Acute abdominal pain (R10.9: Unspecified abdominal pain) Ordered: tramadol, 50 mg = 1 tab(s), Oral, q12hr, PRN for pain, X 3 day(s), # 6 tab(s), Refills(s) 0, [id number], 160, cm, 07/26/23 9:44:00 EDT, Height/Length Dosing, 61.7, kg, 07/26/23 9:44:00 EDT, Weight Dosing Nausea with vomiting (R11.2: Nausea with vomiting, unspecified) Orders: dicyclomine, 10 mg = 1 cap(s), Oral, QID, PRN Other (see comment), For abdominal cramping, # 12 cap(s), Refills(s) 0, [id number], 160, cm, 07/26/23 9:44:00 EDT, Height/Length Dosing, 61.7, kg, 07/26/23 9:44:00 EDT, Weight Dosing ketorolac, 30 mg = 1 mL, Injection, IV Push, Once, Stop date 07/26/23 10:10:00 EDT, STAT, Start date 07/26/23 10:10:00 EDT, 07/26/23 10:10:00 EDT ondansetron, 4 mg = 2 mL, Injection, IV Push, Once, Stop date 07/26/23 10:10:00 EDT, STAT, Start date 07/26/23 10:10:00 EDT, 07/26/23 10:10:00 EDT ondansetron, 4 mg = 1 tab(s), Oral, q8hr, PRN Nausea/Vomiting, # 16 tab(s), Refills(s) 0, Pharmacy: [facility]/pharmacy #[id number], 160, cm, 07/26/23 9:44:00 EDT, Height/Length Dosing, 61.7, kg, 07/26/23 9:44:00 EDT, Weight Dosing Basic Metabolic Panel Beta hCG Qual CBC w/ Auto Diff CT Abdomen/Pelvis w/ Contrast ED Cardiac Monitoring eGFR Extra Blue Tube NPO Diet Saline Lock Insert UA with Cult Rflx Future Appointments Appointment Date:07/29/2023 04:00:00 PM Scheduled Provider: Location:[facility]TRAS[facility] Appointment Type:US Abdominal/Pelvis ([facility]) Appointment Date:08/04/2023 11:00:00 AM Scheduled Provider: Location:[facility]CARDIO Appointment Type:CV Holter/Event ([facility]) Future Scheduled Tests Radiology* US Pelvis Non-OB Complete 07/29/23 * US Transvaginal Non-OB 07/29/23 [facility]03-23-2024 Hospital Discharge instructions Patient Education 07/19/2023 12:49:00 Bronchospasm, Adult, Coml-mk-Dveg Bronchospasm, Adult Bronchospasm is when the small airways in the lungs narrow. This can make it very hard to breathe. Swelling and more mucus than normal can add to this problem. What are the causes? Having a cold. Exercise. The smell from sprays, perfumes, candles, and supervisor shellfish farming. Cold air. Stress or strong feelings such as laughing or crying. What increases the risk? Having asthma. Smoking. Being around someone who smokes (secondhand smoke). Having allergies. Being allergic to certain foods, medicine, or bug bites or stings. What are the signs or symptoms? Making a high-pitched whistling sound when you breathe, most often when you breathe out (wheezing). Coughing. A tight feeling in your chest. Feeling like you cannot catch your breath. Feeling like you have no energy to exercise. Breathing that is noisy. A cough that has a high pitch. How is this treated? Using medicines that you breathe in (inhale). These open up the airways and help you breathe. Medicines can be taken with a metered dose inhaler or a nebulizer device. Taking medicines to reduce swelling. Getting rid of what started the bronchospasm. Follow these instructions at home: Medicines Take krtw-zxu-siieiyl and prescription medicines only as told by your doctor. If you need to use an inhaler or nebulizer to take your medicine, ask your doctor how to use it. You may be given a spacer to use with your inhaler. This makes it easier to get the medicine from the inhaler into your lungs. Lifestyle Do not smoke or use any products that contain nicotine or tobacco. If you need help quitting, ask your doctor. Keep track of things that start your bronchospasm. Avoid these if you can. When pollen, air pollution, or humidity is bad, keep windows closed. Use an air conditioner if you have one. Find ways to cope with stress and your feelings. Activity Some people have bronchospasm when they exercise. This is called exercise- induced bronchoconstriction (EIB). If you have this problem, talk with your doctor about how to deal with EIB. Some tips include: Use your inhaler before exercise. Exercise indoors if it is very cold or humid, or if the pollen and mold counts are high. Warm up and cool down before and after exercise. Stop your exercise right away if your symptoms start or get worse. General instructions If you have asthma, make sure you have an asthma action plan. Stay up to date on your shots (immunizations). Keep all follow-up visits. Get help right away if: You have trouble breathing. You wheeze and cough and this does not get better after you take medicine. You have chest pain. You have trouble speaking more than one word in a sentence. These symptoms may be an emergency. Get help right away. Call 911. Do not wait to see if the symptoms will go away. Do not drive yourself to the hospital. Summary Bronchospasm is when the small airways in the lungs narrow. Swelling and more mucus than normal canadd to this problem. This can make it very hard to breathe. Do not smoke or use any products that contain nicotine or tobacco. If you need help quitting, ask your doctor. Get help right away if you wheeze and cough and this does not get better after you take medicine. This information is not intended to replace advice given to you by your health care provider. Make sure you discuss any questions you have with your health care provider. Document Revised: 11/05/2021 Document Reviewed: 11/05/2021 [employer] Patient Education 2022 [employer]. 07/19/2023 12:49:00 Nonspecific Chest Pain, Adult, Dvtm-ib-Wrqd Nonspecific Chest Pain Chest pain can be caused by many different conditions. Some causes of chest pain can be life-threatening. These will require treatment right away. Serious causes of chest pain include: Heart attack. A tear in the body's main blood vessel. Redness and swelling (inflammation) around your heart. Blood clot in your lungs. Other causes of chest pain may not be so serious. These include: Heartburn. Anxiety or stress. Damage to bones or muscles in your chest. Lung infections. Chest pain can feel like: Pain or discomfort in your chest. Crushing, pressure, aching, or squeezing pain. Burning or tingling. Dull or sharp pain that is worse when you move, cough, or take a deep breath. Pain or discomfort that is also felt in your back, neck, jaw, shoulder, or arm, or pain that spreads to any of these areas. It is hard to know whether your pain is caused by something that is serious or something that is not so serious. So it is important to see your doctor right away if you have chest pain. Follow these instructions at home: Medicines Take pnqt-oau-vcddqba and prescription medicines only as told by your doctor. If you were prescribed an antibiotic medicine, take it as told by your doctor. Do not stop taking the antibiotic even if you start to feel better. Lifestyle Rest as told by your doctor. Do not use any products that contain nicotine or tobacco, such as cigarettes, e- cigarettes, and chewing tobacco. If you need help quitting, ask your doctor. Do not drink alcohol. Make lifestyle changes as told by your doctor. These may include: ?Getting regular exercise. Ask your doctor what activities are safe for you. ?Eating a heart-healthy diet. A diet and food and nutrition services assistant (dietitian) can help you to learn healthy eating options. ?Staying at a healthy weight. ?Treating diabetes or high blood pressure, if needed. ?Lowering your stress. Activities such as yoga and relaxation techniques can help. General instructions Pay attention to any changes in your symptoms. Tell your doctor about them or any new symptoms. Avoid any activities that cause chest pain. Keep all follow-up visits as told by your doctor. This is important. You may need more testing if your chest pain does not go away. Contact a doctor if: Your chest pain does not go away. You feel depressed. You have a fever. Get help right away if: Your chest pain is worse. You have a cough that gets worse, or you cough up blood. You have very bad (severe) pain in your belly (abdomen). You pass out (faint). You have either of these for no clear reason: ?Sudden chest discomfort. ?Sudden discomfort in your arms, back, neck, or jaw. You have shortness of breath at any time. You suddenly start to sweat, or your skin gets clammy. You feel sick to your stomach (nauseous). You throw up (vomit). You suddenly feel lightheaded or dizzy. You feel very weak or tired. Your heart starts to beat fast, or it feels like it is skipping beats. These symptoms may be an emergency. Do not wait to see if the symptoms will go away. Get medical help right away. Call your local emergency services (911 in the [place] Do not drive yourself to the hospital. Summary Chest pain can be caused by many different conditions. The cause may be serious and need treatment right away. If you have chest pain, see your doctor right away. Follow your doctor's instructions for taking medicines and making lifestyle changes. Keep all follow-up visits as told by your doctor. This includes visits for any further testing if your chest pain does not go away. Be sure to know the signs that show that your condition has become worse. Get help right away if you have these symptoms. This information is not intended to replace advice given to you by your health care provider. Make sure you discuss any questions you have with your health care provider. Document Revised: 06/28/2021 Document Reviewed: 06/28/2021 [employer] Patient Education 2022 [employer]. 07/19/2023 12:49:00 Chest Wall Pain, Ftrm-jo-Ukap Chest Wall Pain Chest wall pain is pain in or around the bones and muscles of your chest. Chest wall pain may be caused by: An injury. Coughing a lot. Using your chest and arm muscles too much. Sometimes, the cause may not be known. This pain may take a few weeks or longer to get better. Follow these instructions at home: Managing pain, stiffness, and swelling If told, put ice on the painful area: Put ice in a plastic bag. Place a towel between your skin and the bag. Leave the ice on for 20 minutes, 2 3 times a day. Activity Rest as told by your doctor. Avoid doing things that cause pain. This includes lifting heavy items. Ask your doctor what activities are safe for you. General instructions Take aihv-kcx-lfykszd and prescription medicines only as told by your doctor. Do not use any products that contain nicotine or tobacco, such as cigarettes, e- cigarettes, and chewing tobacco. If you need help quitting, ask your doctor. Keep all follow-up visits as told by your doctor. This is important. Contact a doctor if: You have a fever. Your chest pain gets worse. You have new symptoms. Get help right away if: You feel sick to your stomach (nauseous) or you throw up (vomit). You feel sweaty or light-headed. You have a cough with mucus from your lungs (sputum) or you cough up blood. You are short of breath. These symptoms may be an emergency. Do not wait to see if the symptoms will go away. Get medical help right away. Call your local emergency services (911 in the [place] Do not drive yourself to the hospital. Summary Chest wall pain is pain in or around the bones and muscles of your chest. It may be treated with ice, rest, and medicines. Your condition may also get better if you avoid doing things that cause pain. Contact a doctor if you have a fever, chest pain that gets worse, or new symptoms. Get help right away if you feel light-headed or you get short of breath. These symptoms may be an emergency. This information is not intended to replace advice given to you by your health care provider. Make sure you discuss any questions you have with your health care provider. Document Revised: 07/17/2021 Document Reviewed: 06/29/2021 [employer] Patient Education 2022 [employer]. Follow Up Care 07/19/2023 09:27:13 With:Lorri Ireland Address: [address] [place] [address], [address] [place] [phone] Business (1) When:Within 3 Day(s) [facility]03-23-2024 Evaluation + Plan noteExtracted from: Title:ED Note Author:Ulisses Mckinney PA-C te:07/19/23 Bronchitis (J40: Bronchitis, not specified as acute or chronic) Nonspecific chest pain (R07.9: Chest pain, unspecified) Orders: azithromycin, 250 mg, Oral, As Directed, # 6 tab(s), Refills(s) 0, Pharmacy: [facility] #[id number], 160, cm, 07/19/23 9:32:00 EDT, Height/Length Dosing, 65.7, kg, 07/19/23 9:32:00 EDT, Weight Dosing diphenhydrAMINE, 12.5 mg = 0.25 mL, Injection, IV Push, Once, Stop date 07/19/23 11:22:00 EDT, STAT, Start date 07/19/23 11:22:00 EDT, 07/19/23 11:22:00 EDT ketorolac, 15 mg = 1 mL, Injection, IV Push, Once, Stop date 07/19/23 11:23:00 EDT, STAT, Start date 07/19/23 11:23:00 EDT, 07/19/23 11:23:00 EDT methylPREDNISolone, = 1 packet(s), Oral, As Directed, as directed on package labeling, X 6 day(s), # 21 tab(s), Refills(s) 0, Pharmacy: [facility] #[id number], 160, cm, 07/19/23 9:32:00 EDT, Height/Length Dosing, 65.7, kg, 07/19/23 9:32:00 EDT, Weight Dosing ondansetron, 4 mg = 2 mL, Injection, IV Push, Once, Stop date 07/19/23 10:08:00 EDT, STAT, Start date 07/19/23 10:08:00 EDT, 07/19/23 10:08:00 EDT Sodium Chloride 0.9% intravenous solution, 1,000 mL, Soln-IV, IV, Once, Stop date 07/19/23 9:40:00 EDT, STAT, Start date 07/19/23 9:40:00 EDT, Infuse over 61, minute(s) tramadol, 50 mg = 1 tab(s), Oral, q6hr, PRN for pain, X 3 day(s), # 12 tab(s), Refills(s) 0, Pharmacy: [facility] #[id number], 160, cm, 07/19/23 9:32:00 EDT, Height/Length Dosing, 65.7, kg, 07/19/23 9:32:00 EDT, Weight Dosing Basic Metabolic Panel Beta hCG Qual CBC w/ Auto Diff D-Dimer ED Cardiac Monitoring eGFR Oxygen Saturation Oxygen Therapy PT & PTT Saline Lock Insert Troponin 0 Hr. Troponin 6 Hr. Troponin 9 Hr. XR Chest Single View Future Appointments Appointment Date:08/04/2023 11:00:00 AM Scheduled Provider: Location:FT.CARDIO Appointment Type:CV Holter/Event (FT) [facility]03-16-2024 Hospital Discharge instructions Patient Education 07/12/2023 20:02:42 Sinus Tachycardia Sinus Tachycardia Sinus tachycardia is a kind of fast heartbeat. In sinus tachycardia, the heart beats more than 100 times a minute. Sinus tachycardia starts in a part of the heart called the sinus node. Sinus tachycardia may be harmless, or it may be a sign of a serious condition. What are the causes? This condition may be caused by: Exercise or exertion. A fever. Pain. Loss of body fluids (dehydration). Severe bleeding (hemorrhage). Anxiety and stress. Certain substances, including: ?Alcohol. ?Caffeine. ?Tobacco and nicotine products. ?Cold medicines. ?Illegal drugs. Medical conditions including: ?Heart disease. ?An infection. ?An overactive thyroid (hyperthyroidism). ?A lack of red blood cells (anemia). What are the signs or symptoms? Symptoms of this condition include: A feeling that the heart is beating quickly (palpitations). Suddenly noticing your heartbeat (cardiac awareness). Dizziness. Tiredness (fatigue). Shortness of breath. Chest pain. Nausea. Fainting. How is this diagnosed? This condition is diagnosed with: A physical exam. Other tests, such as: ?Blood tests. ?An electrocardiogram (ECG). This test measures the electrical activity of the heart. ?Ambulatory vehicle monitor technician. This records your heartbeats for 24 hours or more. You may be referred to a technical specialist (break out man). How is this treated? Treatment for this condition depends on the cause or the underlying condition. Treatment may involve: Treating the underlying condition. Taking new medicines or changing your current medicines as told by your health care provider. Making changes to your diet or lifestyle. Follow these instructions at home: Lifestyle Do not use any products that contain nicotine or tobacco, such as cigarettes and e-cigarettes. If you need help quitting, ask your health care provider. Do not use illegal drugs, such as cocaine. Learn relaxation methods to help you when you get stressed or anxious. These include deep breathing. Avoid caffeine or other stimulants. Alcohol use Do not drink alcohol if: ?Your health care provider tells you not to drink. ?You are , may be , or are planning to become . If you drink alcohol, limit how much you have: ?0 1 drink a day for women. ?0 2 drinks a day for men. Be aware of how much alcohol is in your drink. In the [place] one drink equals one typical bottle of beer (12 oz), one-half glass of wine (5 oz), or one shot of hard liquor (1 oz). General instructions Drink enough fluids to keep your urine pale yellow. Take kwcq-zjl-ucypuwe and prescription medicines only as told by your health care provider. Keep all follow-up visits as told by your health care provider. This is important. Contact a health care provider if you have: A fever. Vomiting or diarrhea that does not go away. Get help right away if you: Have pain in your chest, upper arms, jaw, or neck. Become weak or dizzy. Feel faint. Have palpitations that do not go away. Summary In sinus tachycardia, the heart beats more than 100 times a minute. Sinus tachycardia may be harmless, or it may be a sign of a serious condition. Treatment for this condition depends on the cause or the underlying condition. Get help right away if you have pain in your chest, upper arms, jaw, or neck. This information is not intended to replace advice given to you by your health care provider. Make sure you discuss any questions you have with your health care provider. Document Revised: 08/23/2021 Document Reviewed: 08/23/2021 [employer] Patient Education 2022 [employer] 07/12/2023 20:02:42 Hypokalemia Hypokalemia Hypokalemia means that the amount of potassium in the blood is lower than normal. Potassium is a mineral (electrolyte) that helps regulate the amount of fluid in the body. It also stimulates muscle tightening (contraction) and helps nerves work properly. Normally, most of the body's potassium is inside cells, and only a very small amount is in the blood. Because the amount in the blood is so small, minor changes to potassium levels in the blood can be life-threatening. What are the causes? This condition may be caused by: Antibiotic medicine. Diarrhea or vomiting. Taking too much of a medicine that helps you have a bowel movement (laxative)can cause diarrhea and lead to hypokalemia. Chronic kidney disease (CKD). Medicines that help the body get rid of excess fluid (diuretics). Eating disorders, such as anorexia or bulimia. Low magnesium levels in the body. Sweating a lot. What are the signs or symptoms? Symptoms of this condition include: Weakness. Constipation. Fatigue. Muscle cramps. Mental confusion. Skipped heartbeats or irregular heartbeat (palpitations). Tingling or numbness. How is this diagnosed? This condition is diagnosed with a blood test. How is this treated? This condition may be treated by: Taking potassium supplements. Adjusting the medicines that you take. Eating more foods that contain a lot of potassium. If your potassium level is very low, you may need to get potassium through an IV and be monitored in the hospital. Follow these instructions at home: Eating and drinking Eat a healthy diet. A healthy diet includes fresh fruits and vegetables, whole grains, healthy fats, and lean proteins. If told, eat more foods that contain a lot of potassium. These include: ?Nuts, such as peanuts and pistachios. ?Seeds, such as sunflower seeds and pumpkin seeds. ?Peas, lentils, and mcleod beans. ?Whole grain and bran cereals and breads. ?Fresh fruits and vegetables, such as apricots, avocado, bananas, cantaloupe, kiwi, oranges, tomatoes, asparagus, and potatoes. ?Juices, such as orange, tomato, and prune. ?Lean meats, including fish. ?Milk and milk products, such as yogurt. General instructions Take xcwn-vxg-upthqxg and prescription medicines only as told by your health care provider. This includes vitamins, natural food products, and supplements. Keep all follow-up visits. This is important. Contact a health care provider if: You have weakness that gets worse. You feel your heart pounding or racing. You vomit. You have diarrhea. You have diabetes and you have trouble keeping your blood sugar in your target range. Get help right away if: You have chest pain. You have shortness of breath. You have vomiting or diarrhea that lasts for more than 2 days. You faint. These symptoms may be an emergency. Get help right away. Call 911. Do not wait to see if the symptoms will go away. Do not drive yourself to the hospital. Summary Hypokalemia means that the amount of potassium in the blood is lower than normal. This condition is diagnosed with a blood test. Hypokalemia may be treated by taking potassium supplements, adjusting the medicines that you take, or eating more foods that are high in potassium. If your potassium level is very low, you may need to get potassium through an IV and be monitored in the hospital. This information is not intended to replace advice given to you by your health care provider. Make sure you discuss any questions you have with your health care provider. Document Revised: 12/27/2021 Document Reviewed: 12/27/2021 [employer] Patient Education 2022 [employer]. Follow Up Care 07/12/2023 17:35:23 With:Rogelio LUTZ Address: [address] [place] [phone] Business (1) When:07/19/2023 19:46:40 With:Lorri Ireland Address: [address], [address] [place] [address] Business (1) When:Within 3 Day(s) [facility]03-13-2024 Hospital Discharge instructions Patient Education 07/09/2023 17:05:08 BMI for Adults BMI for Adults What is BMI? Body mass index (BMI) is a number that is calculated from a person's weight and height. BMI can help estimate how much of a person's weight is composed of fat. BMI does not measure body fat directly.Rather, it is an alternative to procedures that directly measure body fat, which can be difficult and expensive. BMI can help identify people who may be at higher risk for certain medical problems. What are BMI measurements used for? BMI is used as a screening tool to identify possible weight problems. It helps determine whether a person is obese, overweight, a healthy weight, or underweight. BMI is useful for: Identifying a weight problem that may be related to a medical condition or may increase the risk for medical problems. Promoting changes, such as changes in diet and exercise, to help reach a healthy weight. BMI screening can be repeated to see if these changes are working. How is BMI calculated? BMI involves measuring your weight in relation to your height. Both height and weight are measured,and the BMI is calculated from those numbers. This can be done either in [place] or metric measurements. Note that charts and online BMI calculators are available to help you find your BMI quickly and easily without having to do these calculations yourself. To calculate your BMI in [place] measurements: 1.Measure your weight in pounds (lb). 2.Multiply the number of pounds by 703. For example, for a person who weighs 180 lb, multiply that number by 703, which equals 126,540. 3.Measure your height in inches. Then multiply that number by itself to get a measurement called inches squared. For example, for a person who is 70 inches tall, the inches squared measurement is 70 inches x 70inches, which equals 4,900 inches squared. 4.Divide the total from step 2 (number of lb x 703) by the total from step 3 (inches squared): 126,540 4,900 = 25.8. This is your BMI. To calculate your BMI in metric measurements: 1.Measure your weight in kilograms (kg). 2.Measure your height in meters (m). Then multiply that number by itself to get a measurement called meters squared. For example, for a person who is 1.75 m tall, the meters squared measurement is 1.75 m x 1.75 m, which is equal to 3.1 meters squared. 3.Divide the number of kilograms (your weight) by the meters squared number. In this example: 70 3.1 = 22.6. This is your BMI. What do the results mean? BMI charts are used to identify whether you are underweight, normal weight, overweight, or obese. The following guidelines will be used: Underweight: BMI less than 18.5. Normal weight: BMI between 18.5 and 24.9. Overweight: BMI between 25 and 29.9. Obese: BMI of 30 or above. Keep these notes in mind: Weight includes both fat and muscle, so someone with a muscular build, such as an athlete, may havea BMI that is higher than 24.9. In cases like these, BMI is not an accurate measure of body fat. To determine if excess body fat is the cause of a BMI of 25 or higher, further assessments may needto be done by a health care provider. BMI is usually interpreted in the same way for men and women. Where to find more information For more information about BMI, including tools to quickly calculate your BMI, go to these websites: Centers for Disease Control and Prevention: www.cdc.gov [place] Heart Association: www.heart.org National Heart, Lung, and Blood [place]: www.nhlbi.nih.gov Summary Body mass index (BMI) is a number that is calculated from a person's weight and height. BMI may help estimate how much of a person's weight is composed of fat. BMI can help identify thosewho may be at higher risk for certain medical problems. BMI can be measured using [place] measurements or metric measurements. BMI charts are used to identify whether you are underweight, normal weight, overweight, or obese. This information is not intended to replace advice given to you by your health care provider. Make sure you discuss any questions you have with your health care provider. Document Revised: 01/05/2020 Document Reviewed: 11/12/2019 [employer] Patient Education 2022 [employer]. 07/09/2023 17:05:07 Abdominal Pain, Adult Abdominal Pain, Adult Pain in the abdomen (abdominal pain) can be caused by many things. Often, abdominal pain is not serious and it gets better with no treatment or by being treated at home. However, sometimes abdominal pain is serious. Your health care provider will ask questions about your medical history and do a physical exam to try to determine the cause of your abdominal pain. Follow these instructions at home: Medicines Take cgje-rrh-fzxnkeb and prescription medicines only as told by your health care provider. Do not take a laxative unless told by your health care provider. General instructions Watch your condition for any changes. Drink enough fluid to keep your urine pale yellow. Keep all follow-up visits as told by your health care provider. This is important. Contact a health care provider if: Your abdominal pain changes or gets worse. You are not hungry or you lose weight without trying. You are constipated or have diarrhea for more than 2 3 days. You have pain when you urinate or have a bowel movement. Your abdominal pain wakes you up at night. Your pain gets worse with meals, after eating, or with certain foods. You are vomiting and cannot keep anything down. You have a fever. You have blood in your urine. Get help right away if: Your pain does not go away as soon as your health care provider told you to expect. You cannot stop vomiting. Your pain is only in areas of the abdomen, such as the right side or the left lower portion of the abdomen. Pain on the right side could be caused by appendicitis. You have bloody or black stools, or stools that look like tar. You have severe pain, cramping, or bloating in your abdomen. You have signs of dehydration, such as: ?Dark urine, very little urine, or no urine. ?Cracked lips. ?Dry mouth. ?Sunken eyes. ?Sleepiness. ?Weakness. You have trouble breathing or chest pain. Summary Often, abdominal pain is not serious and it gets better with no treatment or by being treated at home. However, sometimes abdominal pain is serious. Watch your condition for any changes. Take lwzk-fak-erzmkju and prescription medicines only as told by your health care provider. Contact a health care provider if your abdominal pain changes or gets worse. Get help right away if you have severe pain, cramping, or bloating in your abdomen. This information is not intended to replace advice given to you by your health care provider. Make sure you discuss any questions you have with your health care provider. Document Revised: 06/02/2020 Document Reviewed: 08/23/2019 [employer] Patient Education 2022 [employer]. Follow Up Care 07/09/2023 12:39:40 With:Lorri Ireland CNP Address: [address] [place] [address], [address] When: Unknown [facility] 03-11-2024 Hospital Discharge instructions Patient Education 07/07/2023 13:06:42 Abdominal Pain, Adult Abdominal Pain, Adult Pain in the abdomen (abdominal pain) can be caused by many things. Often, abdominal pain is not serious and it gets better with no treatment or by being treated at home. However, sometimes abdominal pain is serious. Your health care provider will ask questions about your medical history and do a physical exam to try to determine the cause of your abdominal pain. Follow these instructions at home: Medicines Take yoel-ipn-pwpfmvw and prescription medicines only as told by your health care provider. Do not take a laxative unless told by your health care provider. General instructions Watch your condition for any changes. Drink enough fluid to keep your urine pale yellow. Keep all follow-up visits as told by your health care provider. This is important. Contact a health care provider if: Your abdominal pain changes or gets worse. You are not hungry or you lose weight without trying. You are constipated or have diarrhea for more than 2 3 days. You have pain when you urinate or have a bowel movement. Your abdominal pain wakes you up at night. Your pain gets worse with meals, after eating, or with certain foods. You are vomiting and cannot keep anything down. You have a fever. You have blood in your urine. Get help right away if: Your pain does not go away as soon as your health care provider told you to expect. You cannot stop vomiting. Your pain is only in areas of the abdomen, such as the right side or the left lower portion of the abdomen. Pain on the right side could be caused by appendicitis. You have bloody or black stools, or stools that look like tar. You have severe pain, cramping, or bloating in your abdomen. You have signs of dehydration, such as: ?Dark urine, very little urine, or no urine. ?Cracked lips. ?Dry mouth. ?Sunken eyes. ?Sleepiness. ?Weakness. You have trouble breathing or chest pain. Summary Often, abdominal pain is not serious and it gets better with no treatment or by being treated at home. However, sometimes abdominal pain is serious. Watch your condition for any changes. Take rfhf-dgm-bxvkvnf and prescription medicines only as told by your health care provider. Contact a health care provider if your abdominal pain changes or gets worse. Get help right away if you have severe pain, cramping, or bloating in your abdomen. This information is not intended to replace advice given to you by your health care provider. Make sure you discuss any questions you have with your health care provider. Document Revised: 06/02/2020 Document Reviewed: 08/23/2019 [employer] Patient Education 2022 [employer]. Follow Up Care 07/07/2023 11:03:13 With:Lorri Ireland Address: [address] [place] [address], [address] [place] [id number]- Business (1) When:07/10/2023 12:52:46 [facility]03-11-2024 Hospital Discharge instructions Patient Education 07/07/2023 11:15:13 Steps to Quit Smoking, Plnk-gm-Ddav Steps to Quit Smoking Smoking tobacco is the leading cause of preventable . It can affect almost every organ in the body. Smoking puts you and people around you at risk for many serious, long-lasting (chronic) diseases. Quitting smoking can be hard, but it is one of the best things that you can do for your health. It is never too late to quit. Do not give up if you cannot quit the first time. Some people need to try many times to quit. Do your best to stick to your quit plan, and talk with your doctor if you have any questions or concerns. How do I get ready to quit? Pick a date to quit. Set a date within the next 2 weeks to give you time to prepare. Write down the reasons why you are quitting. Keep this list in places where you will see it often. Tell your family, friends, and co-workers that you are quitting. Their support is important. Talk with your doctor about the choices that may help you quit. Find out if your health insurance will pay for these treatments. Know the people, places, things, and activities that make you want to smoke (triggers). Avoid them. What first steps can I take to quit smoking? Throw away all cigarettes at home, at work, and in your car. Throw away the things that you use when you smoke, such as ashtrays and lighters. Clean your car. Empty the ashtray. Clean your home, including curtains and carpets. What can I do to help me quit smoking? Talk with your doctor about taking medicines and seeing a counselor. You are more likely to succeedwhen you do both. If you are or : Talk with your doctor about counseling or other ways to quit smoking. Do not take medicine to help you quit smoking unless your doctor tells you to. Quit right away Quit smoking completely, instead of slowly cutting back on how much you smoke over a period of time. Stopping smoking right away may be more successful than slowly quitting. Go to counseling. In-person is best if this is an option. You are more likely to quit if you go to counseling sessions regularly. Take medicine You may take medicines to help you quit. Some medicines need a prescription, and some you can buy jmza-sql-mlhyngw. Some medicines may contain a drug called nicotine to replace the nicotine in cigarettes. Medicines may: Help you stop having the desire to smoke (cravings). Help to stop the problems that come when you stop smoking (withdrawal symptoms). Your doctor may ask you to use: Nicotine patches, gum, or lozenges. Nicotine inhalers or sprays. Non-nicotine medicine that you take by mouth. Find resources Find resources and other ways to help you quit smoking and remain smoke-free after you quit. They include: Online chats with a counselor. Phone quitlines. Printed self-help materials. Support groups or group counseling. Text messaging programs. Mobile phone apps. Use apps on your mobile phone or tablet that can help you stick to your quit plan. Examples of free services include Quit Guide from the CDC and smokefree.gov What can I do to make it easier to quit? Talk to your family and friends. Ask them to support and encourage you. Call a phone quitline, such as 0-545-HOWVHire-IntelligenceNOW, reach out to support groups, or work with a counselor. Ask people who smoke to not smoke around you. Avoid places that make you want to smoke, such as: ?Bars. ?Parties. ?Smoke-break areas at work. Spend time with people who do not smoke. Lower the stress in your life. Stress can make you want to smoke. Try these things to lower stress: ?Getting regular exercise. ?Doing deep-breathing exercises. ?Doing yoga. ?Meditating. What benefits will I see if I quit smoking? Over time, you may have: A better sense of smell and taste. Less coughing and sore throat. A slower heart rate. Lower blood pressure. Clearer skin. Better breathing. Fewer sick days. Summary Quitting smoking can be hard, but it is one of the best things that you can do for your health. Do not give up if you cannot quit the first time. Some people need to try many times to quit. When you decide to quit smoking, make a plan to help you succeed. Quit smoking right away, not slowly over a period of time. When you start quitting, get help and support to keep you smoke-free. This information is not intended to replace advice given to you by your health care provider. Make sure you discuss any questions you have with your health care provider. Document Revised: 04/05/2022 Document Reviewed: 04/05/2022 [employer] Patient Education 2022 [employer] 07/07/2023 11:15:10 BMI for Adults BMI for Adults What is BMI? Body mass index (BMI) is a number that is calculated from a person's weight and height. BMI can help estimate how much of a person's weight is composed of fat. BMI does not measure body fat directly.Rather, it is an alternative to procedures that directly measure body fat, which can be difficult and expensive. BMI can help identify people who may be at higher risk for certain medical problems. What are BMI measurements used for? BMI is used as a screening tool to identify possible weight problems. It helps determine whether a person is obese, overweight, a healthy weight, or underweight. BMI is useful for: Identifying a weight problem that may be related to a medical condition or may increase the risk for medical problems. Promoting changes, such as changes in diet and exercise, to help reach a healthy weight. BMI screening can be repeated to see if these changes are working. How is BMI calculated? BMI involves measuring your weight in relation to your height. Both height and weight are measured,and the BMI is calculated from those numbers. This can be done either in [place] or metric measurements. Note that charts and online BMI calculators are available to help you find your BMI quickly and easily without having to do these calculations yourself. To calculate your BMI in [place] measurements: 1.Measure your weight in pounds (lb). 2.Multiply the number of pounds by 703. For example, for a person who weighs 180 lb, multiply that number by 703, which equals 126,540. 3.Measure your height in inches. Then multiply that number by itself to get a measurement called inches squared. For example, for a person who is 70 inches tall, the inches squared measurement is 70 inches x 70inches, which equals 4,900 inches squared. 4.Divide the total from step 2 (number of lb x 703) by the total from step 3 (inches squared): 126,540 4,900 = 25.8. This is your BMI. To calculate your BMI in metric measurements: 1.Measure your weight in kilograms (kg). 2.Measure your height in meters (m). Then multiply that number by itself to get a measurement called meters squared. For example, for a person who is 1.75 m tall, the meters squared measurement is 1.75 m x 1.75 m, which is equal to 3.1 meters squared. 3.Divide the number of kilograms (your weight) by the meters squared number. In this example: 70 3.1 = 22.6. This is your BMI. What do the results mean? BMI charts are used to identify whether you are underweight, normal weight, overweight, or obese. The following guidelines will be used: Underweight: BMI less than 18.5. Normal weight: BMI between 18.5 and 24.9. Overweight: BMI between 25 and 29.9. Obese: BMI of 30 or above. Keep these notes in mind: Weight includes both fat and muscle, so someone with a muscular build, such as an athlete, may havea BMI that is higher than 24.9. In cases like these, BMI is not an accurate measure of body fat. To determine if excess body fat is the cause of a BMI of 25 or higher, further assessments may needto be done by a health care provider. BMI is usually interpreted in the same way for men and women. Where to find more information For more information about BMI, including tools to quickly calculate your BMI, go to these websites: Centers for Disease Control and Prevention: www.cdc.gov [place] Heart Association: www.heart.org National Heart, Lung, and Blood [place]: www.nhlbi.nih.gov Summary Body mass index (BMI) is a number that is calculated from a person's weight and height. BMI may help estimate how much of a person's weight is composed of fat. BMI can help identify thosewho may be at higher risk for certain medical problems. BMI can be measured using [place] measurements or metric measurements. BMI charts are used to identify whether you are underweight, normal weight, overweight, or obese. This information is not intended to replace advice given to you by your health care provider. Make sure you discuss any questions you have with your health care provider. Document Revised: 01/05/2020 Document Reviewed: 11/12/2019 [employer] Patient Education 2022 [employer]. 07/07/2023 11:15:04 Dysuria Dysuria Dysuria is pain or discomfort during urination. The pain or discomfort may be felt in the part of the body that drains urine from the bladder (urethra) or in the surrounding tissue of the genitals. The pain may also be felt in the groin area, lower abdomen, or lower back. You may have to urinate frequently or have the sudden feeling that you have to urinate (urgency). Dysuria can affect anyone, but it is more common in females. Dysuria can be caused by many different things, including: Urinary tract infection. Kidney stones or bladder stones. Certain STIs (sexually transmitted infections), such as chlamydia. Dehydration. Inflammation of the tissues of the vagina. Use of certain medicines. Use of certain soaps or scented products that cause irritation. Follow these instructions at home: Medicines Take ksll-sfl-oprbeqb and prescription medicines only as told by your health care provider. If you were prescribed an antibiotic medicine, take it as told by your health care provider. Do notstop taking the antibiotic even if you start to feel better. Eating and drinking Drink enough fluid to keep your urine pale yellow. Avoid caffeinated beverages, tea, and alcohol. These beverages can irritate the bladder and make dysuria worse. In males, alcohol may irritate the prostate. General instructions Watch your condition for any changes. Urinate often. Avoid holding urine for long periods of time. If you are female, you should wipe from front to back after urinating or having a bowel movement. Use each piece of toilet paper only once. Empty your bladder after sex. Keep all follow-up visits. This is important. If you had any tests done to find the cause of dysuria, it is up to you to get your test results. Ask your health care provider, or the department that is doing the test, when your results will be ready. Contact a health care provider if: You have a fever. You develop pain in your back or sides. You have nausea or vomiting. You have blood in your urine. You are not urinating as often as you usually do. Get help right away if: Your pain is severe and not relieved with medicines. You cannot eat or drink without vomiting. You are confused. You have a rapid heartbeat while resting. You have shaking or chills. You feel extremely weak. Summary Dysuria is pain or discomfort while urinating. Many different conditions can lead to dysuria. If you have dysuria, you may have to urinate frequently or have the sudden feeling that you have tourinate (urgency). Watch your condition for any changes. Keep all follow-up visits. Make sure that you urinate often and drink enough fluid to keep your urine pale yellow. This information is not intended to replace advice given to you by your health care provider. Make sure you discuss any questions you have with your health care provider. Document Revised: 11/24/2020 Document Reviewed: 11/24/2020 [employer] Patient Education 2022 [employer]. 07/07/2023 11:15:01 Abdominal Pain, Adult, Uies-nk-Ifvf Abdominal Pain, Adult Many things can cause belly (abdominal) pain. Most times, belly pain is not dangerous. Many cases of belly pain can be watched and treated at home. Sometimes, though, belly pain is serious. Your doctor will try to find the cause of your belly pain. Follow these instructions at home: Medicines Take jcpg-vkq-ibybfdb and prescription medicines only as told by your doctor. Do not take medicines that help you poop (laxatives) unless told by your doctor. General instructions Watch your belly pain for any changes. Drink enough fluid to keep your pee (urine) pale yellow. Keep all follow-up visits as told by your doctor. This is important. Contact a doctor if: Your belly pain changes or gets worse. You are not hungry, or you lose weight without trying. You are having trouble pooping (constipated) or have watery poop (diarrhea) for more than 2 3 days. You have pain when you pee or poop. Your belly pain wakes you up at night. Your pain gets worse with meals, after eating, or with certain foods. You are vomiting and cannot keep anything down. You have a fever. You have blood in your pee. Get help right away if: Your pain does not go away as soon as your doctor says it should. You cannot stop vomiting. Your pain is only in areas of your belly, such as the right side or the left lower part of the belly. You have bloody or black poop, or poop that looks like tar. You have very bad pain, cramping, or bloating in your belly. You have signs of not having enough fluid or water in your body (dehydration), such as: ?Dark pee, very little pee, or no pee. ?Cracked lips. ?Dry mouth. ?Sunken eyes. ?Sleepiness. ?Weakness. You have trouble breathing or chest pain. Summary Many cases of belly pain can be watched and treated at home. Watch your belly pain for any changes. Take dgci-szb-mwdhsnp and prescription medicines only as told by your doctor. Contact a doctor if your belly pain changes or gets worse. Get help right away if you have very bad pain, cramping, or bloating in your belly. This information is not intended to replace advice given to you by your health care provider. Make sure you discuss any questions you have with your health care provider. Document Revised: 08/23/2019 Document Reviewed: 08/23/2019 [employer] Patient Education 2022 [employer]. 07/07/2023 11:14:57 Flank Pain, Adult, Tame-da-Ijig Flank Pain, Adult Flank pain is pain in your side. The flank is the area on your side between your upper belly (abdomen) and your spine. The pain may occur over a short time (acute), or it may be long-term or come back often (chronic). It may be mild or very bad. Pain in this area can be caused by many different things. Follow these instructions at home: Drink enough fluid to keep your pee (urine) pale yellow. Rest as told by your doctor. Take vtix-tuy-otovzgj and prescription medicines only as told by your doctor. Keep a journal to keep track of: ?What has caused your flank pain. ?What has made your flank pain feel better. Keep all follow-up visits. Contact a doctor if: Medicine does not help your pain. You have new symptoms. Your pain gets worse. Your symptoms last longer than 2 3 days. You have trouble peeing. You are peeing more often than normal. Get help right away if: You have trouble breathing. You are short of breath. Your belly hurts, or it is swollen or red. You feel like you may vomit (nauseous). You vomit. You feel faint, or you faint. You have blood in your pee. You have flank pain and a fever. These symptoms may be an emergency. Get help right away. Call your local emergency services (911 int [place] Do not wait to see if the symptoms will go away. Do not drive yourself to the hospital. Summary Flank pain is pain in your side. The flank is the area of your side between your upper belly (abdomen) and your spine. Flank pain may occur over a short time (acute), or it may be long-term or come back often (chronic). It may be mild or very bad. Pain in this area can be caused by many different things. Contact your doctor if your symptoms get worse or last longer than 2 3 days. This information is not intended to replace advice given to you by your health care provider. Make sure you discuss any questions you have with your health care provider. Document Revised: 06/25/2021 Document Reviewed: 06/25/2021 [employer] Patient Education 2022 [employer]. Follow Up Care 07/07/2023 09:06:09 With:Lorri Ireland CNP Address: [address] [place] [address], [address] [place] [address]- When: Unknown With:Emergency room Address: When:Within 1 Day(s) Comments:Patient instructed to contact emergency room for any worsening lower abdominal pain or worsening right flank pain, for further evaluation and treatment and assessment. Patient agrees with the plan. [facility] 03-03-2024 Evaluation + Plan noteExtracted from: Title:ED Note Author:Bruno Jara DO Date :06/29/23 Chest pain (R07.9: Chest ngozi n, unspecified) Orders: ondansetron, 4 mg = 2 mL, Injection, IV Push, Once, Stop date 06/29/23 6:24:00 EST, STAT, Start date 06/29/23 6:24:00 EST, 06/29/23 6:24:00 EST Sodium Chloride 0.9% intravenous solution, 1,000 mL, Soln-IV, IV, Once, Stop date 06/29/23 6:24:00 EST, STAT, Start date 06/29/23 6:24:00 EST, Infuse over 61, minute(s) Basic Metabolic Panel CBC w/ Auto Diff ECG 12 Lead Adult ED Cardiac Monitoring eGFR Influenza A&B Ag Oxygen Saturation Oxygen Therapy PT & PTT [place] [place] Saline Lock Insert Troponin 0 Hr. XR Chest Single View Addendum by Guille Will MD June 29, 2023 08:39:41 EST The patient's troponin was negative. The chest discomfort has been there for 3 days. She has a very low risk factor profile. EKG did not show any acute changes. Chest x-ray showed no active disease. She does have a mildly elevated white count. Patient has been using Naprosyn at home without relief of either the lower abdominal pain or the chest pain. Her last Naprosyn was yesterday however. She is concerned about the elevated heart rate. Patient does not want medication here as she has to drive home. We will send the patient home with 1 mg of Ativan. She will also take a Naprosyn when she arrives at home. If the pain is not well-controlled with the Naprosyn she will then take 1 [place] that we will dispense. She is scheduled to follow-up with her family doctor tomorrow morning. [facility]03-03-2024 Hospital Discharge instructions Patient Education 06/29/2023 08:58:56 Sinus Tachycardia Sinus Tachycardia Sinus tachycardia is a kind of fast heartbeat. In sinus tachycardia, the heart beats more than 100 times a minute. Sinus tachycardia starts in a part of the heart called the sinus node. Sinus tachycardia may be harmless, or it may be a sign of a serious condition. What are the causes? This condition may be caused by: Exercise or exertion. A fever. Pain. Loss of body fluids (dehydration). Severe bleeding (hemorrhage). Anxiety and stress. Certain substances, including: ?Alcohol. ?Caffeine. ?Tobacco and nicotine products. ?Cold medicines. ?Illegal drugs. Medical conditions including: ?Heart disease. ?An infection. ?An overactive thyroid (hyperthyroidism). ?A lack of red blood cells (anemia). What are the signs or symptoms? Symptoms of this condition include: A feeling that the heart is beating quickly (palpitations). Suddenly noticing your heartbeat (cardiac awareness). Dizziness. Tiredness (fatigue). Shortness of breath. Chest pain. Nausea. Fainting. How is this diagnosed? This condition is diagnosed with: A physical exam. Other tests, such as: ?Blood tests. ?An electrocardiogram (ECG). This test measures the electrical activity of the heart. ?Ambulatory vehicle monitor technician. This records your heartbeats for 24 hours or more. You may be referred to a technical specialist (break out man). How is this treated? Treatment for this condition depends on the cause or the underlying condition. Treatment may involve: Treating the underlying condition. Taking new medicines or changing your current medicines as told by your health care provider. Making changes to your diet or lifestyle. Follow these instructions at home: Lifestyle Do not use any products that contain nicotine or tobacco, such as cigarettes and e-cigarettes. If you need help quitting, ask your health care provider. Do not use illegal drugs, such as cocaine. Learn relaxation methods to help you when you get stressed or anxious. These include deep breathing. Avoid caffeine or other stimulants. Alcohol use Do not drink alcohol if: ?Your health care provider tells you not to drink. ?You are , may be , or are planning to become . If you drink alcohol, limit how much you have: ?0 1 drink a day for women. ?0 2 drinks a day for men. Be aware of how much alcohol is in your drink. In the [place] one drink equals one typical bottle of beer (12 oz), one-half glass of wine (5 oz), or one shot of hard liquor (1 oz). General instructions Drink enough fluids to keep your urine pale yellow. Take nxov-gxb-stvnmpz and prescription medicines only as told by your health care provider. Keep all follow-up visits as told by your health care provider. This is important. Contact a health care provider if you have: A fever. Vomiting or diarrhea that does not go away. Get help right away if you: Have pain in your chest, upper arms, jaw, or neck. Become weak or dizzy. Feel faint. Have palpitations that do not go away. Summary In sinus tachycardia, the heart beats more than 100 times a minute. Sinus tachycardia may be harmless, or it may be a sign of a serious condition. Treatment for this condition depends on the cause or the underlying condition. Get help right away if you have pain in your chest, upper arms, jaw, or neck. This information is not intended to replace advice given to you by your health care provider. Make sure you discuss any questions you have with your health care provider. Document Revised: 08/23/2021 Document Reviewed: 08/23/2021 [employer] Patient Education 2022 [employer] 06/29/2023 08:58:56 Nonspecific Chest Pain, Adult, Xlbp-ez-Klft Nonspecific Chest Pain Chest pain can be caused by many different conditions. Some causes of chest pain can be life-threatening. These will require treatment right away. Serious causes of chest pain include: Heart attack. A tear in the body's main blood vessel. Redness and swelling (inflammation) around your heart. Blood clot in your lungs. Other causes of chest pain may not be so serious. These include: Heartburn. Anxiety or stress. Damage to bones or muscles in your chest. Lung infections. Chest pain can feel like: Pain or discomfort in your chest. Crushing, pressure, aching, or squeezing pain. Burning or tingling. Dull or sharp pain that is worse when you move, cough, or take a deep breath. Pain or discomfort that is also felt in your back, neck, jaw, shoulder, or arm, or pain that spreads to any of these areas. It is hard to know whether your pain is caused by something that is serious or something that is not so serious. So it is important to see your doctor right away if you have chest pain. Follow these instructions at home: Medicines Take mojd-ukw-lrokouk and prescription medicines only as told by your doctor. If you were prescribed an antibiotic medicine, take it as told by your doctor. Do not stop taking the antibiotic even if you start to feel better. Lifestyle Rest as told by your doctor. Do not use any products that contain nicotine or tobacco, such as cigarettes, e- cigarettes, and chewing tobacco. If you need help quitting, ask your doctor. Do not drink alcohol. Make lifestyle changes as told by your doctor. These may include: ?Getting regular exercise. Ask your doctor what activities are safe for you. ?Eating a heart-healthy diet. A diet and food and nutrition services assistant (dietitian) can help you to learn healthy eating options. ?Staying at a healthy weight. ?Treating diabetes or high blood pressure, if needed. ?Lowering your stress. Activities such as yoga and relaxation techniques can help. General instructions Pay attention to any changes in your symptoms. Tell your doctor about them or any new symptoms. Avoid any activities that cause chest pain. Keep all follow-up visits as told by your doctor. This is important. You may need more testing if your chest pain does not go away. Contact a doctor if: Your chest pain does not go away. You feel depressed. You have a fever. Get help right away if: Your chest pain is worse. You have a cough that gets worse, or you cough up blood. You have very bad (severe) pain in your belly (abdomen). You pass out (faint). You have either of these for no clear reason: ?Sudden chest discomfort. ?Sudden discomfort in your arms, back, neck, or jaw. You have shortness of breath at any time. You suddenly start to sweat, or your skin gets clammy. You feel sick to your stomach (nauseous). You throw up (vomit). You suddenly feel lightheaded or dizzy. You feel very weak or tired. Your heart starts to beat fast, or it feels like it is skipping beats. These symptoms may be an emergency. Do not wait to see if the symptoms will go away. Get medical help right away. Call your local emergency services (911 in the [place] Do not drive yourself to the hospital. Summary Chest pain can be caused by many different conditions. The cause may be serious and need treatment right away. If you have chest pain, see your doctor right away. Follow your doctor's instructions for taking medicines and making lifestyle changes. Keep all follow-up visits as told by your doctor. This includes visits for any further testing if your chest pain does not go away. Be sure to know the signs that show that your condition has become worse. Get help right away if you have these symptoms. This information is not intended to replace advice given to you by your health care provider. Make sure you discuss any questions you have with your health care provider. Document Revised: 06/28/2021 Document Reviewed: 06/28/2021 [employer] Patient Education 2022 [employer]. Follow Up Care 06/29/2023 06:08:42 With:Lorri Ireland Address: [address] [place] [address], [address] [place] [address]- [facility] (1) When:06/30/2023 08:46:18 Comments:As scheduled [facility]02-17-2024 Hospital Discharge instructions Patient Education 06/14/2023 09:20:58 Pharyngitis, Peae-ho-Foom Pharyngitis Pharyngitis is a sore throat (pharynx). This is when there is redness, pain, and swelling in your throat. Most of the time, this condition gets better on its own. In some cases, you may need medicine. What are the causes? An infection from a virus. An infection from bacteria. Allergies. What increases the risk? Being 5 24 years old. Being in crowded environments. These include: ?Daycares. ?Schools. ?Dormitories. Living in a place with cold temperatures outside. Having a weakened disease-fighting (immune) system. What are the signs or symptoms? Symptoms may vary depending on the cause. Common symptoms include: Sore throat. Tiredness (fatigue). Low-grade fever. Stuffy nose. Cough. Headache. Other symptoms may include: Glands in the neck (lymph nodes) that are swollen. Skin rashes. Film on the throat or tonsils. This can be caused by an infection from bacteria. Vomiting. Red, itchy eyes. Loss of appetite. Joint pain and muscle aches. Tonsils that are temporarily bigger than usual (enlarged). How is this treated? Many times, treatment is not needed. This condition usually gets better in 3 4 days without treatment. If the infection is caused by a bacteria, you may be need to take antibiotics. Follow these instructions at home: Medicines Take rjke-xmc-reovsos and prescription medicines only as told by your doctor. If you were prescribed an antibiotic medicine, take it as told by your doctor. Do not stop taking the antibiotic even if you start to feel better. Use throat lozenges or sprays to soothe your throat as told by your doctor. Children can get pharyngitis. Do not give your child aspirin. Managing pain To help with pain, try: Sipping warm liquids, such as: ?Broth. ?Herbal tea. ?Warm water. Eating or drinking cold or frozen liquids, such as frozen ice pops. Rinsing your mouth (gargle) with a salt water mixture 3 4 times a day or as needed. ?To make salt water, dissolve 1 tsp (3 6 g) of salt in 1 cup (237 mL) of warm water. ?Do not swallow this mixture. Sucking on hard candy or throat lozenges. Putting a cool-mist humidifier in your bedroom at night to moisten the air. Sitting in the bathroom with the door closed for 5 10 minutes while you run hot water in the shower. General instructions Do not smoke or use any products that contain nicotine or tobacco. If you need help quitting, ask your doctor. Rest as told by your doctor. Drink enough fluid to keep your pee (urine) pale yellow. How is this prevented? Wash your hands often for at least 20 seconds with soap and water. If soap and water are not available, use hand tanyard worker. Do not touch your eyes, nose, or mouth with unwashed hands. Wash hands after touching these areas. Do not share cups or eating utensils. Avoid close contact with people who are sick. Contact a doctor if: You have large, tender lumps in your neck. You have a rash. You cough up green, yellow-brown, or bloody spit. Get help right away if: You have a stiff neck. You drool or cannot swallow liquids. You cannot drink or take medicines without vomiting. You have very bad pain that does not go away with medicine. You have problems breathing, and it is not from a stuffy nose. You have new pain and swelling in your knees, ankles, wrists, or elbows. These symptoms may be an emergency. Get help right away. Call your local emergency services (911 int [place] Do not wait to see if the symptoms will go away. Do not drive yourself to the hospital. Summary Pharyngitis is a sore throat (pharynx). This is when there is redness, pain, and swelling in your throat. Most of the time, pharyngitis gets better on its own. Sometimes, you may need medicine. If you were prescribed an antibiotic medicine, take it as told by your doctor. Do not stop taking the antibiotic even if you start to feel better. This information is not intended to replace advice given to you by your health care provider. Make sure you discuss any questions you have with your health care provider. Document Revised: 07/11/2021 Document Reviewed: 07/11/2021 [employer] Patient Education 2022 [employer]. Follow Up Care 06/14/2023 08:47:19 With:Lorri Ireland Address: [address] [place] [address], [address] [place] [address]- Business (1) When:06/17/2023 09:01:25 [facility]02-03-2024 Evaluation + Plan noteExtracted from: Title:ED Note Author:Sy Pickard PA-C te:05/31/23 Abdominal pain (R10.9: Unspe cified abdominal pain) Diarrhea, unspecified (R19.7: Diarrhea, unspecified) Nausea vomiting and diarrhea (R11.2: Nausea with vomiting, unspecified) Orders: dicyclomine, 20 mg = 1 tab(s), Oral, TID, X 7 day(s), # 21 tab(s), Refills(s) 0, Pharmacy: [facility] #[id number], 160, cm, 05/31/23 8:12:00 EST, Height/Length Dosing, 67, kg, 05/31/23 8:12:00 EST, Weight Dosing morphine, 4 mg = 1 mL, Injection, IV Push, Once, Stop date 05/31/23 8:14:00 EST, STAT, Start date 05/31/23 8:14:00 EST, 05/31/23 8:14:00 EST morphine, 4 mg = 1 mL, Injection, IV Push, Once, Stop date 05/31/23 10:17:00 EST, STAT, Start date 05/31/23 10:17:00 EST, 05/31/23 10:17:00 EST ondansetron, 4 mg = 1 tab(s), Oral, TID, # 15 tab(s), Refills(s) 0, Pharmacy: [facility] #[id number], 160, cm, 05/31/23 8:12:00 EST, Height/Length Dosing, 67, kg, 05/31/23 8:12:00 EST, Weight Dosing ondansetron, 4 mg = 2 mL, Injection, IV Push, Once, Stop date 05/31/23 8:14:00 EST, STAT, Start date 05/31/23 8:14:00 EST, 05/31/23 8:14:00 EST Sodium Chloride 0.9% intravenous solution, 1,000 mL, Soln-IV, IV, Once, Stop date 05/31/23 8:14:00 EST, STAT, Start date 05/31/23 8:14:00 EST, Infuse over 61, minute(s) Basic Metabolic Panel Beta hCG Qual CBC w/ Auto Diff CT Abdomen/Pelvis w/ Contrast eGFR Extra Blue Tube Hepatic Function Panel Lipase Level UA With Cult Reflex Future Appointments Appointment Date:06/05/2023 11:45:00 AM Scheduled Provider: Location:[facility] [place] Appointment Type:PT 45 (FT) Appointment Date:06/11/2023 09:30:00 AM Scheduled Provider: Location:[facility] [place] Appointment Type:PT 45 (FT) Appointment Date:06/13/2023 10:00:00 AM Scheduled Provider: Location:[facility] [place] Appointment Type:PT 45 (FT) Appointment Date:06/17/2023 10:15:00 AM Scheduled Provider: Location:[facility] [place] Appointment Type:PT 45 (FT) Appointment Date:06/18/2023 11:00:00 AM Scheduled Provider: Location:[facility] [place] Appointment Type:PT 45 (FT) Appointment Date:06/20/2023 01:00:00 PM Scheduled Provider: Location:[facility] [place] Appointment Type:PT Re-Eval 45 (FT) Future Scheduled Tests Radiology* XR Spine Lumbosacral Minimum 4 Views 06/26/22 [facility]02-03-2024 Hospital Discharge instructions Patient Education 05/31/2023 11:18:59 Abdominal Pain, Adult Abdominal Pain, Adult Pain in the abdomen (abdominal pain) can be caused by many things. Often, abdominal pain is not serious and it gets better with no treatment or by being treated at home. However, sometimes abdominal pain is serious. Your health care provider will ask questions about your medical history and do a physical exam to try to determine the cause of your abdominal pain. Follow these instructions at home: Medicines Take sqxk-cfe-rstyypj and prescription medicines only as told by your health care provider. Do not take a laxative unless told by your health care provider. General instructions Watch your condition for any changes. Drink enough fluid to keep your urine pale yellow. Keep all follow-up visits as told by your health care provider. This is important. Contact a health care provider if: Your abdominal pain changes or gets worse. You are not hungry or you lose weight without trying. You are constipated or have diarrhea for more than 2 3 days. You have pain when you urinate or have a bowel movement. Your abdominal pain wakes you up at night. Your pain gets worse with meals, after eating, or with certain foods. You are vomiting and cannot keep anything down. You have a fever. You have blood in your urine. Get help right away if: Your pain does not go away as soon as your health care provider told you to expect. You cannot stop vomiting. Your pain is only in areas of the abdomen, such as the right side or the left lower portion of the abdomen. Pain on the right side could be caused by appendicitis. You have bloody or black stools, or stools that look like tar. You have severe pain, cramping, or bloating in your abdomen. You have signs of dehydration, such as: ?Dark urine, very little urine, or no urine. ?Cracked lips. ?Dry mouth. ?Sunken eyes. ?Sleepiness. ?Weakness. You have trouble breathing or chest pain. Summary Often, abdominal pain is not serious and it gets better with no treatment or by being treated at home. However, sometimes abdominal pain is serious. Watch your condition for any changes. Take osuz-yby-klpzvko and prescription medicines only as told by your health care provider. Contact a health care provider if your abdominal pain changes or gets worse. Get help right away if you have severe pain, cramping, or bloating in your abdomen. This information is not intended to replace advice given to you by your health care provider. Make sure you discuss any questions you have with your health care provider. Document Revised: 06/02/2020 Document Reviewed: 08/23/2019 [employer] Patient Education 2022 [employer]. Follow Up Care 05/31/2023 08:01:25 With:Lorri Ireland Address: [address] [place] [address], [address] [place] [id number] [facility] (1) When:06/03/2023 11:01:28 [facility]12-19-2023 Hospital Discharge instructions Patient Education 04/15/2023 12:14:04 Nosebleed, Adult, Znes-jt-Wpis Nosebleed, Adult A nosebleed is when blood comes out of the nose. Nosebleeds are common and can be caused by many things. They are usually not a sign of a serious medical problem. Follow these instructions at home: When you have a nosebleed: Sit down. Tilt your head forward a little. Follow these steps: 1.Pinch your nose with a clean towel or tissue. 2.Keep pinching your nose for 5 minutes. Do not let go. 3.After 5 minutes, let go of your nose. 4.Keep doing these steps until the bleeding stops. Do not put tissues or other things in your nose to stop the bleeding. Avoid lying down or putting your head back. Use a nose spray decongestant as told by your doctor. After a nosebleed: Try not to blow your nose or sniffle for several hours. Try not to strain, lift, or bend at the waist for several days. Aspirin and medicines that thin your blood make bleeding more likely. If you take these medicines: ?Ask your doctor if you should stop taking them or if you should change how much you take. ?Do not stop taking the medicine unless your doctor tells you to. If your nosebleed was caused by dryness, use xyoi-ugy-xsgrpcu saline nasal spray or gel and a humidifier as told by your doctor. This will keep the inside of your nose moist and allow it to heal. If you need to use nasal spray or gel: ?Choose one that is water-soluble. ?Use only as much as you need and use it only as often as needed. ?Do not lie down right away after you use it. If you get nosebleeds often, talk with your doctor about treatments. These may include: ?Nasal cautery. A chemical swab or electrical device is used to lightly burn tiny blood vessels inside the nose. This helps stop or prevent nosebleeds. ?Nasal packing. A gauze or other material is placed in the nose to keep constant pressure on the bleeding area. Contact a doctor if: You have a fever. You get nosebleeds often. You get nosebleeds more often than usual. You bruise very easily. You have something stuck in your nose. You are bleeding in your mouth. You vomit or cough up brown material. You get a nosebleed after you start a new medicine. Get help right away if: You have a nosebleed after you fall or hurt your head. Your nosebleed does not go away after 20 minutes. You feel dizzy or weak. You have unusual bleeding from other parts of your body. You have unusual bruising on other parts of your body. You get sweaty. You vomit blood. Summary Nosebleeds are common. They are usually not a sign of a serious medical problem. When you have a nosebleed, sit down and tilt your head a little forward. Pinch your nose with a clean tissue for 5 minutes. Use saline spray or saline gel and a humidifier as told by your doctor. Get help right away if your nosebleed does not go away after 20 minutes. This information is not intended to replace advice given to you by your health care provider. Make sure you discuss any questions you have with your health care provider. Document Revised: 04/23/2022 Document Reviewed: 04/23/2022 [employer] Patient Education 2022 [employer]. Follow Up Care 04/15/2023 11:30:17 With:Zabrina Khan MD Address: [address] [place] [address], [address] [place] [phone]- When:1 to 2 days [facility]12-19-2023 Evaluation + Plan noteExtracted from: Title:ED Note Author:Savanna Rivero PA-C Date :04/15/23 1. Epistaxis (R04.0: Epistax is) Future Scheduled Tests Radiology* XR Spine Lumbosacral Minimum 4 Views 06/26/22 [facility]12-04-2023 History of Present illness Narrative* Regi Hunter PA-C - 03/31/2023 11:00 AM EST POV after 03/24/23 nasal surgery Doing well, endorses improved breathing bilaterally Continues salt water sprays and vaseline to nares Nasal splint removed Septum midline Nasal valve patent Incisions c/d/I Continue nasal saline sprays and ointment to nares RTC 4-6 months or PRN documented in this [facility] Work Phone: 1(904) 474-658912-03-2023 Hospital Discharge instructions Patient Education 03/30/2023 16:47:32 Pain Relief Before and After Surgery Pain Relief Before and After Surgery Pain relief is an important part of your overall care before, during, and after surgery. You and your health care provider will work together to make a plan to manage any pain that you have before surgery (preoperative) and after surgery (postoperative). Addressing pain before surgery lessens the pain that you will have after surgery. Make sure that you fully understand and agree with your pain relief plan. If you have questions or concerns, it is important to discuss them with your health care provider. If you have pain that is not controlled by medicine, tell your health care provider. Severe pain after surgery may: Prevent sleep. Decrease your ability to breathe deeply and to cough. This can result in pneumonia or upper airway infections. Cause your heart to beat more quickly. Cause your blood pressure to be higher. Increase your risk for stomach and digestive problems. Slow down wound healing. Lead to depression, anxiety, and feelings of helplessness. Your health care provider may use more than one method at a time to help relieve your pain. Using this approach may allow you to eat, move around, and possibly leave the hospital sooner. What are options for managing pain before and after surgery? Oral pain medicines Pain medicines taken by mouth (orally) include: Non-narcotic medicines: ?Acetaminophen. ?NSAIDs, such as ibuprofen and naproxen. Muscle relaxants. These may relieve pain caused by muscle spasms. Anticonvulsants. These medicines are usually used to treat seizures. They may help to lessen nerve pain. Opioids. These medicines relieve pain by binding to pain receptors in the brain and spinal cord (narcotic pain medicines). Opioids may help relieve short-term (acute) postoperative pain that is moderate to moderately severe. ?Opioids are often combined with non-narcotic medicines to improve pain relief, lower the risk of side effects, and lower the chance of addiction. ?Some common side effects of opioids include constipation, nausea, and excessive sleepiness. ?To help prevent addiction, opioids are given for short periods of time in careful doses. If you follow instructions from your health care provider and you do not have a history of substance abuse, your risk of becoming addicted to opioids is low. Some of these medicines may be available in injectable form. They may be given through an IV if youare unable to eat or drink. As-needed pain control You can receive pain medicine when you need it, through an IV or as a pill or liquid. When you tellyour health care provider that you are having pain, he or she will give you the proper pain medicine. Medicine that numbs an area You may be given pain medicine that numbs an area. This is called a local anesthetic. It may be given: As an injection near your painful area (local infiltration). As an injection near the nerve that provides feeling to a specific part of your body (peripheral nerve block). As an injection in your spine (spinal block). Through a local anesthetic reservoir pump. For this method, one or more small, thin tubes (catheters) are inserted into your incision at the end of your procedure. These catheters are connected to a device that is filled with a non- narcotic pain medicine. Medicine gradually empties into your incision area over the next several days. Continuous epidural pain control With this method, you receive pain medicine through a catheter that is inserted into your back, near your spinal cord. Medicine flows through the catheter to lessen pain in areas of your body that are below the catheter. The catheter is usually put into the back shortly before surgery. It may be left in until you can eat, take medicine by mouth, pass urine, and have a bowel movement. This method may be recommended if you are having surgery on your abdomen, hip area, or legs. This method of pain relief may help you heal faster because you may be able to do these things sooner: Regain normal bowel and bladder function. Return to eating. Get up and walk. IV patient-controlled analgesia (RETAIL STOCKER) pump With this method, you receive pain medicine through an IV that is connected to a RETAIL STOCKER pump. The RETAIL STOCKER pump gives you a specific amount of medicine when you push a button. This lets you control how much medicine you receive. You are the only person who should push this button. The pump is set up so that you cannot accidentally give yourself too much medicine. You will be able to start using your RETAIL STOCKER pump in the recovery room after your procedure. Tell your health care provider: If you are having too much pain. If you cannot push the button. If you are feeling too sleepy or nauseous. Other pain control methods Other methods of pain relief after surgery include: Heat and cold therapy. Massage. Topical analgesics. These are patches, creams, and gels that can be applied on the skin. Steroid medicines. These medicines may be given to lessen swelling. Physical therapy. A physical therapist will work with you to meet goals, such as feeling and functioning better. Physical therapy usually includes specific exercises that are tailored to your needs. Transcutaneous electrical nerve stimulation (TENS). This method sends electrical signals through the skin to interrupt pain signals. Cognitive behavioral therapy (CBT). This therapy helps you learn coping skills for dealing with pain. What are some questions to ask my health care provider? What pain relief options would be best for me? What are the risks of each option? What are the benefits of each option? How long will I need pain relief after surgery? Summary A plan to manage pain that you may have before surgery (preoperative) and after surgery (postoperative) is an important part of your overall care. Pain management options include medicines and nonmedical therapies, such as physical therapy, massage, and heat or cold therapy. Pain management medicines include opioids and non-narcotic medicines such as NSAIDs, steroids, or local anesthetics. Pain medicines can have side effects. Side effects of opioids include constipation, nausea, excessive sleepiness, and risk of addiction. Your health care provider will work with you to prevent or manage these side effects and risks. This information is not intended to replace advice given to you by your health care provider. Make sure you discuss any questions you have with your health care provider. Document Revised: 07/12/2021 Document Reviewed: 07/12/2021 [employer] Patient Education 2022 [employer]. 03/30/2023 16:47:32 Acute Pain, Adult Acute Pain, Adult Acute pain is a type of sudden pain that may last for just a few days or for as long as six months.It is often related to an illness, injury, or medical procedure. Acute pain may be mild, moderate, or severe. Pain can make it hard for you to do your normal, daily activities. It can cause anxiety and lead toother problems if it is left untreated. Treatment depends on the cause and severity of your pain. Acute pain usually goes away once your injury has healed or you are no longer ill. Follow these instructions at home: Medicines Take ixsy-weo-riryxhl and prescription medicines only as told by your health care provider. Take the lowest dose of medicine for the shortest amount of time needed to relieve the pain. If you are taking prescription pain medicine: ?Do not stop taking the medicine suddenly. Talk to your health care provider about how and when to discontinue prescription medicine. ?Do not take more pills than told by your health care provider even if your pain is severe. ?Do not take other ulbz-pto-mhdpxgw pain medicines in addition to prescription pain medicine unlesstold by your health care provider. ?Ask your health care provider if the medicine requires you to avoid driving or using heavy machinery. ?Ask your health care provider if the medicine can cause constipation. You may need to take these actions to prevent or treat constipation: ?Drink enough fluid to keep your urine pale yellow. ?Eat foods that are high in fiber, such as beans, whole grains, and fresh fruits and vegetables. ?Take xhjk-ugd-ipiqtad or prescription medicines. ?Limit foods that are high in fat and processed sugars, such as fried or sweet foods. Managing pain, stiffness, and swelling If directed, put ice on the affected area. To do this: Put ice in a plastic bag. Place a towel between your skin and the bag. Leave the ice on for 20 minutes, 2 3 times a day. If directed, apply heat to the affected area as often as told by your health care provider. Use theheat source that your health care provider recommends, such as a moist heat pack or a heating pad. Place a towel between your skin and the heat source. Leave the heat on for 20 30 minutes. Remove the heat if your skin turns bright red. This is especially important if you are unable to feel pain, heat, or cold. You may have a greater risk of getting burned. Activity Rest as told by your health care provider. Return to your normal activities as told by your health care provider. Ask your health care provider what activities are safe for you. General instructions Check your pain level as told by your health care provider. Ask your health care provider if other strategies such as distraction, relaxation, or physical therapies can help your pain. Keep all follow-up visits as told by your health care provider. This is important. Contact a health care provider if: Your pain is not controlled by medicine. Your pain does not improve or gets worse. You have side effects from pain medicines, such as vomiting or confusion. Get help right away if you: Have severe pain. Have trouble breathing. Lose consciousness. Have chest pain or pressure that lasts for more than a few minutes, or if you have other symptoms along with chest pain, including if you: ?Have pain or discomfort in one or both arms, your back, neck, jaw, or stomach. ?Have shortness of breath. ?Break out in a cold sweat. ?Feel nauseous. ?Become light-headed. These symptoms may represent a serious problem that is an emergency. Do not wait to see if the symptoms will go away. Get medical help right away. Call your local emergency services (301 in the [place] Do not drive yourself to the hospital. Summary Acute pain may be mild, moderate, or severe. It usually goes away once your injury has healed or you are no longer ill. Take tsjf-dgy-lkjorpv and prescription medicines only as told by your health care provider. Ask your health care provider if the medicine prescribed to you can cause constipation. Contact a health care provider if your pain is not controlled by medicine. This information is not intended to replace advice given to you by your health care provider. Make sure you discuss any questions you have with your health care provider. Document Revised: 08/29/2022 Document Reviewed: 08/30/2019 [employer] Patient Education 2022 [employer]. Follow Up Care 03/30/2023 15:25:42 With:Lorri Ireland Address: [address] [place] [address], [address] [place] [id number] Business (1) When:04/02/2023 16:20:27 Comments:Follow-up with your primary care provider in 3 to 5 days. If symptoms worsen, do not improve, or new symptoms arise please report back to emergency department for further evaluation. [facility]11-27-2023 Hospital Discharge instructions* Discharge Instructions* Lavinia Potter MD - 03/24/2023 7:36 AM EST FACIAL PLASTIC SURGERY POSTOPERATIVE INSTRUCTIONS NASAL SURGERY Important Phone Numbers Dr. Thiago Cuellar: [phone] Debbie Bowden R.N. Evenings/Weekends Emergency: [phone] - please ask for the ENT resident on-call At Home after Surgery: Head Elevation: Keep your head elevated (the height of 2 pillows is appropriate) for 3 days to helpwith swelling. Ice: Apply cold compresses to the cheeks and forehead, up to 20 minutes of each hour while awake after surgery, for the first 48 hours. This will help reduce swelling and bruising. Nasal Packing: If you have nasal packing in place with strings hanging out of your nose, you will remove it at home 24 or 48 hours after the operation (as directed by Dr. Cuellar) by pulling on the strings beneath the nose. Please call the office if you are struggling to remove it. If you have splints inside the nose that are sutured into place, they will be removed at your follow-up appointment. Nasal Care: Use nasal saline spray, 4 sprays to each nostril every 2-3 hours while awake. This willhelp keep the nasal passages moist and prevent scabbing in the nose. It is normal to feel congestedfor several weeks after surgery. Do not blow your nose for two weeks after surgery. Incision/Cast Care: If you have an incision on the nose, apply antibiotic ointment four times a day. The incision will heal most optimally if it is kept moist and clean. You can use hydrogen peroxideon Q-tips to gently clean any crusts. Do not rub but gently dab the incision to clean. If you have a cast or dressing on the outside of your nose, this will remain in place until follow-up. If the cast falls off, do not worry. Tape it to your nose at nighttime while you sleep and if/when you wear glasses. Shower: You may shower 24 hours after surgery. Do not let the shower spray hit your face/nose directly and do not soak your face in water. If you have a cast or dressing on the outside of the nose, try to keep it as dry as possible. Towel blot your nose/cast after your shower. Bleeding: Most patients have mild, active bleeding the first night. Some blood- tinged drainage is normal for 1-2 weeks after surgery. Afrin nasal spray may be helpful for bleeding after surgery but should not be used for more than 3 days. Excessive bleeding that does not stop is not expected; please call the office or seek medical attention if this occurs. Medications: Take the medications as prescribed. You can take Tylenol in addition to the narcotic pain medication prescribed. Resume all home medications the night of surgery unless otherwise directed. Avoid aspirin and NSAIDs for one week after surgery. Activity: Resume normal activities of daily living, as you feel able. However, avoid strenuous activity and heavy lifting (more than 10 lbs) for 3 weeks after surgery. Light activity such as walking may be resumed after 1 week after surgery. Sport activities may be resumed 1 month after surgery buttry to protect your nose as it is still healing. Seek Medical Attention: Call the office or seek medical attention if you develop fever greater [id number] degrees, excessive bleeding, excessive pain that is not well-controlled, skin rash, visual disturbances, or other unusual symptoms. Follow-Up Care: First Appointment: You will return one week after surgery for an appointment for suture and cast/dressing removal. There are additional sutures inside your nose that will dissolve on their own. Postoperative Healing: Your nose will be swollen and will remain so for several weeks. It is important to keep in mind that although much of the swelling resolves over the first several weeks after surgery, it takes 12 to 15 months for all of the swelling in the nose to resolve. However, most patients have a good appearance even 2-3 weeks after the operation. Additional Appointments: Ideally, we would like to see you back between within 1-2 weeks after surgery. Subsequently, our follow up will be approximately 4-6 weeks, then 4-6 months after surgery to examine the healing. After this, the follow-up is quite variable, and depends on how you are doing and feeling. Often, this means visits at about 12 months after surgery to follow your healing process.Please call the office at any time if you have any questions or concerns and would like to be seen sooner than your next scheduled visit. documented in this [facility] Work Phone: 1(816) 534-223311-14-2023 Hospital Discharge instructions Follow Up Care 03/11/2023 13:00:37 With:Lorri Ireland CNP Address: [address] [place] [address], [address] When: Unknown [facility] 11-10-2023 Note* CPM/PAT H&P - Neisha Desouza PA-C - 03/07/2023 9:52 AM EST Images from the original note were not included. 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 CHIEF COMPLAINT Nasal obstructive breathing HPI Patient is complaining of nasal obstructed breathing. Patient states that it is constant regardlessof time of day, or year. It is diminishing the quality of sleep, affecting ability to exercise, andis bothersome throughout the day. Nasal steroid sprays have provided minimal relief. Symptoms beganyears ago. Clinical examination revealed deviated nasal septum, and hypertrophy of nasal turbinates. Patient is scheduled to have septoplasty, inferior turbinate reductions, nasal valve repair, reconstruction rhinoplasty on 03/24/2023 at [facility] [place]. ACTIVE PROBLEMS Patient Active Problem List Diagnosis Nasal septal deviation Hypertrophy of inferior nasal turbinate Collapse of nasal valve Difficulty breathing Deviated nasal septum Hypertrophy of nasal turbinates Acquired deformity of nose Nasal congestion PAST MEDICAL HISTORY Past Medical History: Diagnosis Date Deviated nasal septum Hypertrophy of nasal turbinates Mild intermittent asthma Nasal obstruction SURGICAL HISTORY Past Surgical History: Procedure Laterality Date OTHER SURGICAL HISTORY Left Excision of left wrist ganglion cyst ANESTHESIA HISTORY Denies problems with anesthesia in the past such as PONV, prolonged sedation, awareness, dental damage, aspiration, cardiac arrest, difficult intubation, or unexpected hospital admissions. Denies family history of malignant hyperthermia, or pseudocholinesterase deficiency. 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 Patient is a never smoker; denies alcohol use; denies recreational drug use. Patient states she is able to do moderate ADLs such as heavy housework, light yard work. Patient denies chest pain, CHAVARRIA. METS >4 FAMILY HISTORY No family history on file. ALLERGIES No Known Allergies MEDICATIONS No current facility-administered medications for this encounter. Current Outpatient Medications: albuterol 2.5 mg /3 mL (0.083 %) nebulizer solution, Take 3 mL (2.5 mg) by nebulization every 6 hours if needed., Disp: , Rfl: ferrous sulfate 325 (65 Fe) MG tablet, Take 1 tablet (325 mg) by mouth once daily., Disp: , Rfl: multivitamin tablet, Take 1 tablet by mouth once daily., Disp: , Rfl: PHYSICAL EXAM Deferred AIRWAY EXAM Deferred VITALS No vitals taken for telemedicine visit Height: 5 feet 2 inches; weight: 131 pounds; BMI: 24.09 LABS CHEMISTRY COMMON [facility]07/20/2021 Component 07/20/2021 07/20/2021 07/20/2021 07/20/202107/19/2021 07/19/2021 Sodium -- -- -- -- -- 133 Low Potassium -- -- -- -- -- 3.7 Chloride -- -- -- -- -- 105 CO2 -- -- -- -- -- 24 Anion Gap -- -- -- -- -- 3 Glucose -- -- -- -- -- 103 High BUN -- -- -- -- -- 3 Low Creatinine -- -- -- -- -- 0.44 Low eGFR -- -- -- -- -- >90.0 EGFR IF NonAfrican Citizen Of [place] -- -- -- -- -- >90.0 Calcium -- -- -- -- -- 7.6 Low Total Protein -- -- -- -- -- 6.3 POC Glucose 114 High 148 High 109 High 184 High 112 High -- CELL COUNT AND DIFFERENTIATION GROUP [facility]07/19/2021 Component 07/19/2021 WBC 21.9 High RBC 4.05 Hemoglobin 12.1 Hematocrit 36.3 MCV 89.5 MCH 29.9 MCHC 33.4 RDW 14.7 High Platelets 381 MPV 8.1 IMAGING none ASSESSMENT/PLAN Nasal obstructive breathing Septoplasty, inferior turbinate reductions, nasal valve repair, reconstruction rhinoplasty This note was created in part upon personal review of patient's medical records. [facility] Work Phone: 1([phone]) 842-580111-10-2023 Miscellaneous Notes* CPM/PAT H&P - Neisha Desouza PA-C - 03/07/2023 9:52 AM EST Images from the original note were not included. CPM/PAT Evaluation Name: Alejandra Real (Alejandra Real) /Age: 711/02/1995/27 y.o. TELEMEDICINE ENCOUNTER Patient was contacted by telephone for preadmission testing perioperative risk assessment prior to surgery. CHIEF COMPLAINT Nasal obstructive breathing HPI Patient is complaining of nasal obstructed breathing. Patient states that it is constant regardlessof time of day, or year. It is diminishing the quality of sleep, affecting ability to exercise, andis bothersome throughout the day. Nasal steroid sprays have provided minimal relief. Symptoms beganyears ago. Clinical examination revealed deviated nasal septum, and hypertrophy of nasal turbinates. Patient is scheduled to have septoplasty, inferior turbinate reductions, nasal valve repair, reconstruction rhinoplasty on 03/24/2023 at [facility] [place]. ACTIVE PROBLEMS Patient Active Problem List Diagnosis Nasal septal deviation Hypertrophy of inferior nasal turbinate Collapse of nasal valve Difficulty breathing Deviated nasal septum Hypertrophy of nasal turbinates Acquired deformity of nose Nasal congestion PAST MEDICAL HISTORY Past Medical History: Diagnosis Date Deviated nasal septum Hypertrophy of nasal turbinates Mild intermittent asthma Nasal obstruction SURGICAL HISTORY Past Surgical History: Procedure Laterality Date OTHER SURGICAL HISTORY Left Excision of left wrist ganglion cyst ANESTHESIA HISTORY Denies problems with anesthesia in the past such as PONV, prolonged sedation, awareness, dental damage, aspiration, cardiac arrest, difficult intubation, or unexpected hospital admissions. Denies family history of malignant hyperthermia, or pseudocholinesterase deficiency. 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 Patient is a never smoker; denies alcohol use; denies recreational drug use. Patient states she is able to do moderate ADLs such as heavy housework, light yard work. Patient denies chest pain, CHAVARRIA. METS >4 FAMILY HISTORY No family history on file. ALLERGIES No Known Allergies MEDICATIONS No current facility-administered medications for this encounter. Current Outpatient Medications: albuterol 2.5 mg /3 mL (0.083 %) nebulizer solution, Take 3 mL (2.5 mg) by nebulization every 6 hours if needed., Disp: , Rfl: ferrous sulfate 325 (65 Fe) MG tablet, Take 1 tablet (325 mg) by mouth once daily., Disp: , Rfl: multivitamin tablet, Take 1 tablet by mouth once daily., Disp: , Rfl: PHYSICAL EXAM Deferred AIRWAY EXAM Deferred VITALS No vitals taken for telemedicine visit Height: 5 feet 2 inches; weight: 131 pounds; BMI: 24.09 LABS CHEMISTRY COMMON [facility]07/20/2021 Component 07/20/2021 07/20/2021 07/20/2021 07/20/2021 07/19/2021 07/19/2021 Sodium -- -- -- -- -- 133 Low Potassium -- -- -- -- -- 3.7 Chloride -- -- -- -- -- 105 CO2 -- -- -- -- -- 24 Anion Gap -- -- -- -- -- 3 Glucose -- -- -- -- -- 103 High BUN -- -- -- -- -- 3 Low Creatinine -- -- -- -- -- 0.44 Low eGFR -- -- -- -- -- >90.0 EGFR IF NonAfrican Citizen Of [place] -- -- -- -- -- >90.0 Calcium -- -- -- -- -- 7.6 Low Total Protein -- -- -- -- -- 6.3 POC Glucose 114 High 148 High 109 High 184 High 112 High -- CELL COUNT AND DIFFERENTIATION GROUP [facility]07/19/2021 Component 07/19/2021 WBC 21.9 High RBC 4.05 Hemoglobin 12.1 Hematocrit 36.3 MCV 89.5 MCH 29.9 MCHC 33.4 RDW 14.7 High Platelets 381 MPV 8.1 IMAGING none ASSESSMENT/PLAN Nasal obstructive breathing Septoplasty, inferior turbinate reductions, nasal valve repair, reconstruction rhinoplasty This note was created in part upon personal review of patient's medical records. * Preprocedure Instructions - Neisha Desouza PA-C - 03/07/2023 9:48 AM EST No outpatient medications have been marked as taking for the 03/24/23 encounter (Hospital Encounter). Pre-Op Instructions & Checklist Your surgery has been scheduled at [facility] [place] at [address] in [place], [place], [facility], [address], in the [facility]. Parking is to the left of the main entrance. You will be contacted about the time of your surgery the day before your surgery. If you are unableto answer the phone, a detailed voicemail message will be left. Make sure that your voicemail box is not full so a message can be left. If you have not received a call by 3:00 pm you may call [phone] between the hours of 3:00 and 4:00 pm. Please be available by phone the night before/day of surgery in case there is a change in the schedule which may require you to arrive earlier/later. 14 DAYS BEFORE SURGERY STOP TAKING WEIGHT LOSS MEDICATIONS 7 DAYS BEFORE SURGERY STOP THESE MEDICATIONS: Multiple Vitamins containing Vitamin E Herbal supplements, Fish Oil, garlic pills, turmeric Stop taking aspirin, and aspirin-containing products as well as NSAID's such as Advil, Motrin, Aleve, Ibuprofen. Tylenol is okay to take for pain relief. If you are currently taking Coumadin/Warfarin, we will have to coordinate that with your PCP &/or the Anticoagulation Clinic. THE DAY BEFORE SURGERY: *Do not eat any food after midnight the night before surgery. *You are permitted to have clear liquids such as water, apple juice, plain tea or coffee (no milk or creamer), clear electrolyte-replenishing drinks such as Pedialyte, Gatorade, or Powerade (not yogurt or pulp-containing smoothies or juices such as orange juice) up to 2 hours before your surgery. DAY OF SURGERY, TAKE THESE MEDICATIONS with a small sip of water (if it is not listed, do not take it): There are no medications for you to take the morning of surgery. ON THE MORNING OF SURGERY: *Shower either the night before your surgery or the morning of your surgery *Do not use moisturizers, creams, lotions or perfume, or make-up. *Wear comfortable, loose fitting clothing. *All jewelry and valuables should be left at home. *Prosthetic devices such as contact lenses, hearing aids, dentures, eyelash extensions, hairpins and body piercing must be removed before surgery. Bring containers for eyeglasses/contacts, dentures, or hearing aids with you. Diabetics: Please check fasting blood sugars upon waking up. If fasting blood sugars are<80ml/dl, please drink 3 ounces of apple juice no later than 2 hours prior to surgery. BRING WITH YOU: *Photo ID and insurance card *Current list of medicines and allergies *Pacemaker/Defibrillator/Heart stent cards *Copy of your complete Advanced Directive/DHPOA-if applicable SMOKING: *Quitting smoking can make a huge difference to your health and recovery from surgery. *If you need help with quitting, call 5-444-GZJA-NOW. Alcohol: *No alcoholic beverages for 48 hours before surgery. AFTER OUTPATIENT SURGERY: *A responsible adult MUST accompany you at the time of discharge and stay with you for 24 hours after your surgery. *You may NOT drive yourself home after surgery. *You may use a taxi or ride sharing service ([employer], [employer]) to return home ONLY if you are accompaniedby a friend or family member. *Instructions for resuming your medications will be provided by your surgeon. CONTACT SURGEON'S OFFICE IF YOU DEVELOP: * Fever =/> 100.4 F * New respiratory symptoms (e.g. cough, shortness of breath, respiratory distress, sore throat) * Recent loss of taste or smell *Flu like symptoms such as headache, fatigue or gastrointestinal symptoms * If you develop any open sores, shingles, burning or painful urination AND/OR: * You no longer wish to have the surgery. * Any other personal circumstances change that may lead to the need to cancel or defer this surgery. *You were admitted to any hospital within one week of your planned procedure. If you have any questions regarding these preoperative instructions you may call [phone]. If you have questions regarding you surgical procedure, or post- operative care/recovery please call yoursurgeon's office. Link to [facility] [employer] [email or web address] documented in this encounterAshtabula [facility] Work Phone: [phone]) 605-215311-10-2023 Note* Preprocedure Instructions - Neisha Desouza PA-C - 03/07/2023 9:48 AM EST No outpatient medications have been marked as taking for the 03/24/23 encounter (Hospital Encounter). Pre-Op Instructions & Checklist Your surgery has been scheduled at [facility] [place] at [address] in [place], [place], [facility], [address], in the [facility]. Parking is to the left of the main entrance. You will be contacted about the time of your surgery the day before your surgery. If you are unableto answer the phone, a detailed voicemail message will be left. Make sure that your voicemail box is not full so a message can be left. If you have not received a call by 3:00 pm you may call [phone] between the hours of 3:00 and 4:00 pm. Please be available by phone the night before/day of surgery in case there is a change in the schedule which may require you to arrive earlier/later. 14 DAYS BEFORE SURGERY STOP TAKING WEIGHT LOSS MEDICATIONS 7 DAYS BEFORE SURGERY STOP THESE MEDICATIONS: Multiple Vitamins containing Vitamin E Herbal supplements, Fish Oil, garlic pills, turmeric Stop taking aspirin, and aspirin-containing products as well as NSAID's such as Advil, Motrin, Aleve, Ibuprofen. Tylenol is okay to take for pain relief. If you are currently taking Coumadin/Warfarin, we will have to coordinate that with your PCP &/or the Anticoagulation Clinic. THE DAY BEFORE SURGERY: *Do not eat any food after midnight the night before surgery. *You are permitted to have clear liquids such as water, apple juice, plain tea or coffee (no milk or creamer), clear electrolyte-replenishing drinks such as Pedialyte, Gatorade, or Powerade (not yogurt or pulp-containing smoothies or juices such as orange juice) up to 2 hours before your surgery. DAY OF SURGERY, TAKE THESE MEDICATIONS with a small sip of water (if it is not listed, do not take it): There are no medications for you to take the morning of surgery. ON THE MORNING OF SURGERY: *Shower either the night before your surgery or the morning of your surgery *Do not use moisturizers, creams, lotions or perfume, or make-up. *Wear comfortable, loose fitting clothing. *All jewelry and valuables should be left at home. *Prosthetic devices such as contact lenses, hearing aids, dentures, eyelash extensions, hairpins and body piercing must be removed before surgery. Bring containers for eyeglasses/contacts, dentures, or hearing aids with you. Diabetics: Please check fasting blood sugars upon waking up. If fasting blood sugars are<80ml/dl, please drink 3 ounces of apple juice no later than 2 hours prior to surgery. BRING WITH YOU: *Photo ID and insurance card *Current list of medicines and allergies *Pacemaker/Defibrillator/Heart stent cards *Copy of your complete Advanced Directive/DHPOA-if applicable SMOKING: *Quitting smoking can make a huge difference to your health and recovery from surgery. *If you need help with quitting, call 8-499-MWRB-NOW. Alcohol: *No alcoholic beverages for 48 hours before surgery. AFTER OUTPATIENT SURGERY: *A responsible adult MUST accompany you at the time of discharge and stay with you for 24 hours after your surgery. *You may NOT drive yourself home after surgery. *You may use a taxi or ride sharing service ([employer], [employer]) to return home ONLY if you are accompaniedby a friend or family member. *Instructions for resuming your medications will be provided by your surgeon. CONTACT SURGEON'S OFFICE IF YOU DEVELOP: * Fever =/> 100.4 F * New respiratory symptoms (e.g. cough, shortness of breath, respiratory distress, sore throat) * Recent loss of taste or smell *Flu like symptoms such as headache, fatigue or gastrointestinal symptoms * If you develop any open sores, shingles, burning or painful urination AND/OR: * You no longer wish to have the surgery. * Any other personal circumstances change that may lead to the need to cancel or defer this surgery. *You were admitted to any hospital within one week of your planned procedure. If you have any questions regarding these preoperative instructions you may call [phone]. If you have questions regarding you surgical procedure, or post- operative care/recovery please call yoursurgeon's office. Link to [facility] [employer] [email or web address] [facility] Work Phone: [phone] History of Present illness Narrative* Thiago Cuellar MD - 02/06/2023 10:45 AM EDT Reason for consult: Nasal obstruction Referring provider: Dr. Khan Chief Complaint: Obstructed breathing Constant, present year round, does not fluctuate. It affects the patients ability to sleep, exercise, and is troubling during the day. Symptoms began: Years ago Nasal steroid or spray: Has attempted > 6 weeks without benefit, chronic nose bleeds Site of obstruction: L > R Previous surgery: None Previous CT/MRI imaging of the nasal cavity and sinuses: None Trauma history: Denies Sleep apnea or snoring history: Denies Allergic rhinitis, sinusitis history: Denies Smoking: Denies Aesthetic concern: Denies Past Medical History She has no past medical history on file. Surgical History She has no past surgical history on file. Social History She has no history on file for tobacco use, alcohol use, and drug use. Family History No family history on file. Allergies Patient has no allergy information on record. Physical exam General: Well-developed and well-nourished in appearance. Skin: No rashes or concerning lesions on the visible portions of the skin. Eyes: Extraocular movements intact. Visual dickens grossly normal. Ears: Pinna are normal in shape and position. External canals are patent. Oral Cavity/Oropharynx: Dentition is intact. Mucous membranes moist. No masses or lesions. Respiratory: No respiratory distress. Quiet breathing without stertor or stridor. Cardiovascular: Regular rate and rhythm. Warm extremities with equal pulses. Psych: Normal mood and affect. Judgement and insight appropriate. Neuro: Alert and oriented. CN II-XII grossly intact. No focal deficits. Musculoskeletal: Gait intact. Moves all extremities well without apparent deformities. A comprehensive facial exam was performed with the following highlights: Nasal skin type: Moderate thickness External exam: Tip: Mild bulbosity Tip rotation: under Projection: eladia Dorsum: eladia Base width: wide Asymmetries: caudal deflection of the septum to the left Alar columellar relationship: hooding Internal exam: Septum: severe caudal and dorsal twist from right to left obstructing bilateral airway Inferior turbinates: hypertrophied bl Nasal valve angle: reduced bl Intranasal examination performed with limited view on anterior rhinoscopy. Procedures: Procedure: Rigid diagnostic nasal endoscopy Surgeon: Thiago Cuellar MD Anesthesia: None Timeout: Performed Findings: A 0-degree rigid endoscope was passed through the patient's bilateral naris. The first pass was along the floor of the nose to the nasopharynx. The second pass was to the area of the middlemeatus. The third pass was to the sphenoethmoidal recess. Septum: Deviation is S shaped with bilateral obstruction approximately 90% without perforations norsynechia. Internal Nasal Valve: Angle is reduced, narrowing the nasal airway bilaterally. Right nasal cavity: Inferior turbinate: 2+ Inferior meatus: Clear, no discharge, no polyps/masses/lesions Middle meatus: Clear, no discharge, no polyps/masses/lesions Left nasal cavity: Inferior turbinate: 2+ Inferior meatus: Clear, no discharge, no polyps/masses/lesions Middle meatus: Clear, no discharge, no polyps/masses/lesions Nasopharynx: Clear, no discharge, no masses/lesions Modified [place] Maneuver: Performed with a cotton tipped applicator, markedly improves breathing bilaterally. Assessment - This patient has a significant mechanical nasal obstruction. The cause is multifactorial, with an obvious nasal septal deformity septal deviation with severe internal nasal valve narrowing, turbinate hypertrophy, and static internal nasal valve collapse. There is some dynamic nasal valve collapse as well. Correction of this nasal obstruction will require a reconstructive rhinoplasty with major septoplasty by extracorporeal technique, repair of nasal valve collapse with structural grafting, and a bilateral turbinate reduction. We discussed the medical necessity of this at length, as well as the risks and limitations of the procedures. All questions were answered. Plan - Recommend reconstructive rhinoplasty with major septal repair with extracorporeal septoplasty, nasal valve repair with structural grafting, and inferior turbinate reduction with lateralization. documented in this [facility] Work Phone: [phone] Hospital Discharge instructions Patient Education 01/24/2023 10:02:23 Acute Back Pain, Adult Acute Back Pain, Adult Acute back pain is sudden and usually short-lived. It is often caused by an injury to the muscles and tissues in the back. The injury may result from: A muscle, tendon, or ligament getting overstretched or torn. Ligaments are tissues that connect bones to each other. Lifting something improperly can cause a back strain. Wear and tear (degeneration) of the spinal disks. Spinal disks are circular tissue that provide cushioning between the bones of the spine (vertebrae). Twisting motions, such as while playing sports or doing yard work. A hit to the back. Arthritis. You may have a physical exam, lab tests, and imaging tests to find the cause of your pain. Acute back pain usually goes away with rest and home care. Follow these instructions at home: Managing pain, stiffness, and swelling Take wjok-exw-pvzerrx and prescription medicines only as told by your health care provider. Treatment may include medicines for pain and inflammation that are taken by mouth or applied to the skin, or muscle relaxants. Your health care provider may recommend applying ice during the first 24 48 hours after your pain starts. To do this: ?Put ice in a plastic bag. ?Place a towel between your skin and the bag. ?Leave the ice on for 20 minutes, 2 3 times a day. ?Remove the ice if your skin turns bright red. This is very important. If you cannot feel pain, heat, or cold, you have a greater risk of damage to the area. If directed, apply heat to the affected area as often as told by your health care provider. Use theheat source that your health care provider recommends, such as a moist heat pack or a heating pad. ?Place a towel between your skin and the heat source. ?Leave the heat on for 20 30 minutes. ?Remove the heat if your skin turns bright red. This is especially important if you are unable to feel pain, heat, or cold. You have a greater risk of getting burned. Activity Do not stay in bed. Staying in bed for more than 1 2 days can delay your recovery. Sit up and stand up straight. Avoid leaning forward when you sit or hunching over when you stand. ?If you work at a desk, sit close to it so you do not need to lean over. Keep your chin tucked in. Keep your neck drawn back, and keep your elbows bent at a 90-degree angle (right angle). ?Sit high and close to the steering wheel when you drive. Add lower back (lumbar) support to your car seat, if needed. Take short walks on even surfaces as soon as you are able. Try to increase the length of time you walk each day. Do not sit, drive, or broadcast maintenance engineer one place for more than 30 minutes at a time. Sitting or standing for long periods of time can put stress on your back. Do not drive or use heavy machinery while taking prescription pain medicine. Use proper lifting techniques. When you bend and lift, use positions that put less stress on your back: ?Bend your knees. ?Keep the load close to your body. ?Avoid twisting. Exercise regularly as told by your health care provider. Exercising helps your back heal faster andhelps prevent back injuries by keeping muscles strong and flexible. Work with a physical therapist to make a safe exercise program, as recommended by your health care provider. Do any exercises as told by your physical therapist. Lifestyle Maintain a healthy weight. Extra weight puts stress on your back and makes it difficult to have good posture. Avoid activities or situations that make you feel anxious or stressed. Stress and anxiety increase muscle tension and can make back pain worse. Learn ways to manage anxiety and stress, such as through exercise. General instructions Sleep on a firm mattress in a comfortable position. Try lying on your side with your knees slightlybent. If you lie on your back, put a pillow under your knees. Keep your head and neck in a straight line with your spine (neutral position) when using electronicequipment like smartphones or pads. To do this: ?Raise your smartphone or pad to look at it instead of bending your head or neck to look down. ?Put the smartphone or pad at the level of your face while looking at the screen. Follow your treatment plan as told by your health care provider. This may include: ?Cognitive or behavioral therapy. ?Acupuncture or massage therapy. ?Meditation or yoga. Contact a health care provider if: You have pain that is not relieved with rest or medicine. You have increasing pain going down into your legs or buttocks. Your pain does not improve after 2 weeks. You have pain at night. You lose weight without trying. You have a fever or chills. You develop nausea or vomiting. You develop abdominal pain. Get help right away if: You develop new bowel or bladder control problems. You have unusual weakness or numbness in your arms or legs. You feel faint. These symptoms may represent a serious problem that is an emergency. Do not wait to see if the symptoms will go away. Get medical help right away. Call your local emergency services (911 in the [place] Do not drive yourself to the hospital. Summary Acute back pain is sudden and usually short-lived. Use proper lifting techniques. When you bend and lift, use positions that put less stress on your back. Take ngfj-bmu-owderta and prescription medicines only as told by your health care provider, and apply heat or ice as told. This information is not intended to replace advice given to you by your health care provider. Make sure you discuss any questions you have with your health care provider. Document Revised: 07/06/2021 Document Reviewed: 07/06/2021 [employer] Patient Education 2022 [employer]. 01/24/2023 10:00:27 Acute Back Pain, Adult Acute Back Pain, Adult Acute back pain is sudden and usually short-lived. It is often caused by an injury to the muscles and tissues in the back. The injury may result from: A muscle, tendon, or ligament getting overstretched or torn. Ligaments are tissues that connect bones to each other. Lifting something improperly can cause a back strain. Wear and tear (degeneration) of the spinal disks. Spinal disks are circular tissue that provide cushioning between the bones of the spine (vertebrae). Twisting motions, such as while playing sports or doing yard work. A hit to the back. Arthritis. You may have a physical exam, lab tests, and imaging tests to find the cause of your pain. Acute back pain usually goes away with rest and home care. Follow these instructions at home: Managing pain, stiffness, and swelling Take gphx-psw-fdpxhby and prescription medicines only as told by your health care provider. Treatment may include medicines for pain and inflammation that are taken by mouth or applied to the skin, or muscle relaxants. Your health care provider may recommend applying ice during the first 24 48 hours after your pain starts. To do this: ?Put ice in a plastic bag. ?Place a towel between your skin and the bag. ?Leave the ice on for 20 minutes, 2 3 times a day. ?Remove the ice if your skin turns bright red. This is very important. If you cannot feel pain, heat, or cold, you have a greater risk of damage to the area. If directed, apply heat to the affected area as often as told by your health care provider. Use theheat source that your health care provider recommends, such as a moist heat pack or a heating pad. ?Place a towel between your skin and the heat source. ?Leave the heat on for 20 30 minutes. ?Remove the heat if your skin turns bright red. This is especially important if you are unable to feel pain, heat, or cold. You have a greater risk of getting burned. Activity Do not stay in bed. Staying in bed for more than 1 2 days can delay your recovery. Sit up and stand up straight. Avoid leaning forward when you sit or hunching over when you stand. ?If you work at a desk, sit close to it so you do not need to lean over. Keep your chin tucked in. Keep your neck drawn back, and keep your elbows bent at a 90-degree angle (right angle). ?Sit high and close to the steering wheel when you drive. Add lower back (lumbar) support to your car seat, if needed. Take short walks on even surfaces as soon as you are able. Try to increase the length of time you walk each day. Do not sit, drive, or broadcast maintenance engineer one place for more than 30 minutes at a time. Sitting or standing for long periods of time can put stress on your back. Do not drive or use heavy machinery while taking prescription pain medicine. Use proper lifting techniques. When you bend and lift, use positions that put less stress on your back: ?Bend your knees. ?Keep the load close to your body. ?Avoid twisting. Exercise regularly as told by your health care provider. Exercising helps your back heal faster andhelps prevent back injuries by keeping muscles strong and flexible. Work with a physical therapist to make a safe exercise program, as recommended by your health care provider. Do any exercises as told by your physical therapist. Lifestyle Maintain a healthy weight. Extra weight puts stress on your back and makes it difficult to have good posture. Avoid activities or situations that make you feel anxious or stressed. Stress and anxiety increase muscle tension and can make back pain worse. Learn ways to manage anxiety and stress, such as through exercise. General instructions Sleep on a firm mattress in a comfortable position. Try lying on your side with your knees slightlybent. If you lie on your back, put a pillow under your knees. Keep your head and neck in a straight line with your spine (neutral position) when using electronicequipment like smartphones or pads. To do this: ?Raise your smartphone or pad to look at it instead of bending your head or neck to look down. ?Put the smartphone or pad at the level of your face while looking at the screen. Follow your treatment plan as told by your health care provider. This may include: ?Cognitive or behavioral therapy. ?Acupuncture or massage therapy. ?Meditation or yoga. Contact a health care provider if: You have pain that is not relieved with rest or medicine. You have increasing pain going down into your legs or buttocks. Your pain does not improve after 2 weeks. You have pain at night. You lose weight without trying. You have a fever or chills. You develop nausea or vomiting. You develop abdominal pain. Get help right away if: You develop new bowel or bladder control problems. You have unusual weakness or numbness in your arms or legs. You feel faint. These symptoms may represent a serious problem that is an emergency. Do not wait to see if the symptoms will go away. Get medical help right away. Call your local emergency services (911 in the [place] Do not drive yourself to the hospital. Summary Acute back pain is sudden and usually short-lived. Use proper lifting techniques. When you bend and lift, use positions that put less stress on your back. Take yato-fyj-xskwkyb and prescription medicines only as told by your health care provider, and apply heat or ice as told. This information is not intended to replace advice given to you by your health care provider. Make sure you discuss any questions you have with your health care provider. Document Revised: 07/06/2021 Document Reviewed: 07/06/2021 [employer] Patient Education 2022 [employer]. Follow Up Care 01/24/2023 09:07:50 With:Lorri Ireland CNP Address: [address] [place] [id number]- When: Unknown With:Lorri Ireland CNP Address: [address] [place] [address]- When: Unknown [facility] 09-20-2023 Hospital Discharge instructions Patient Education 01/15/2023 14:02:40 Acute Back Pain, Adult Acute Back Pain, Adult Acute back pain is sudden and usually short-lived. It is often caused by an injury to the muscles and tissues in the back. The injury may result from: A muscle, tendon, or ligament getting overstretched or torn. Ligaments are tissues that connect bones to each other. Lifting something improperly can cause a back strain. Wear and tear (degeneration) of the spinal disks. Spinal disks are circular tissue that provide cushioning between the bones of the spine (vertebrae). Twisting motions, such as while playing sports or doing yard work. A hit to the back. Arthritis. You may have a physical exam, lab tests, and imaging tests to find the cause of your pain. Acute back pain usually goes away with rest and home care. Follow these instructions at home: Managing pain, stiffness, and swelling Take gnyg-ywo-piynmdm and prescription medicines only as told by your health care provider. Treatment may include medicines for pain and inflammation that are taken by mouth or applied to the skin, or muscle relaxants. Your health care provider may recommend applying ice during the first 24 48 hours after your pain starts. To do this: ?Put ice in a plastic bag. ?Place a towel between your skin and the bag. ?Leave the ice on for 20 minutes, 2 3 times a day. ?Remove the ice if your skin turns bright red. This is very important. If you cannot feel pain, heat, or cold, you have a greater risk of damage to the area. If directed, apply heat to the affected area as often as told by your health care provider. Use theheat source that your health care provider recommends, such as a moist heat pack or a heating pad. ?Place a towel between your skin and the heat source. ?Leave the heat on for 20 30 minutes. ?Remove the heat if your skin turns bright red. This is especially important if you are unable to feel pain, heat, or cold. You have a greater risk of getting burned. Activity Do not stay in bed. Staying in bed for more than 1 2 days can delay your recovery. Sit up and stand up straight. Avoid leaning forward when you sit or hunching over when you stand. ?If you work at a desk, sit close to it so you do not need to lean over. Keep your chin tucked in. Keep your neck drawn back, and keep your elbows bent at a 90-degree angle (right angle). ?Sit high and close to the steering wheel when you drive. Add lower back (lumbar) support to your car seat, if needed. Take short walks on even surfaces as soon as you are able. Try to increase the length of time you walk each day. Do not sit, drive, or broadcast maintenance engineer one place for more than 30 minutes at a time. Sitting or standing for long periods of time can put stress on your back. Do not drive or use heavy machinery while taking prescription pain medicine. Use proper lifting techniques. When you bend and lift, use positions that put less stress on your back: ?Bend your knees. ?Keep the load close to your body. ?Avoid twisting. Exercise regularly as told by your health care provider. Exercising helps your back heal faster andhelps prevent back injuries by keeping muscles strong and flexible. Work with a physical therapist to make a safe exercise program, as recommended by your health care provider. Do any exercises as told by your physical therapist. Lifestyle Maintain a healthy weight. Extra weight puts stress on your back and makes it difficult to have good posture. Avoid activities or situations that make you feel anxious or stressed. Stress and anxiety increase muscle tension and can make back pain worse. Learn ways to manage anxiety and stress, such as through exercise. General instructions Sleep on a firm mattress in a comfortable position. Try lying on your side with your knees slightlybent. If you lie on your back, put a pillow under your knees. Keep your head and neck in a straight line with your spine (neutral position) when using electronicequipment like smartphones or pads. To do this: ?Raise your smartphone or pad to look at it instead of bending your head or neck to look down. ?Put the smartphone or pad at the level of your face while looking at the screen. Follow your treatment plan as told by your health care provider. This may include: ?Cognitive or behavioral therapy. ?Acupuncture or massage therapy. ?Meditation or yoga. Contact a health care provider if: You have pain that is not relieved with rest or medicine. You have increasing pain going down into your legs or buttocks. Your pain does not improve after 2 weeks. You have pain at night. You lose weight without trying. You have a fever or chills. You develop nausea or vomiting. You develop abdominal pain. Get help right away if: You develop new bowel or bladder control problems. You have unusual weakness or numbness in your arms or legs. You feel faint. These symptoms may represent a serious problem that is an emergency. Do not wait to see if the symptoms will go away. Get medical help right away. Call your local emergency services (911 in the [place] Do not drive yourself to the hospital. Summary Acute back pain is sudden and usually short-lived. Use proper lifting techniques. When you bend and lift, use positions that put less stress on your back. Take thjc-ijv-vueqipz and prescription medicines only as told by your health care provider, and apply heat or ice as told. This information is not intended to replace advice given to you by your health care provider. Make sure you discuss any questions you have with your health care provider. Document Revised: 07/06/2021 Document Reviewed: 07/06/2021 [employer] Patient Education 2022 [employer]. Follow Up Care 01/15/2023 13:09:14 With:Lorri Ireland CNP Address: [address] [place] [address], [place] [id number]- When: Unknown [facility] 03-08-2023 Evaluation + Plan noteExtracted from: Title:ED Note Author:Devonte Gallo PA-C Supa e:07/03/22 Corneal abrasion (S05.00XA: Injury of conjunctiva and corneal abrasion without foreign body, unspecified eye, initial encounter) Orders: fluorescein ophthalmic, 1 mg, 1 EA, Test, OPTH, Once, Stop date 07/03/22 8:47:00 EST, STAT, Start date 07/03/22 8:47:00 EST tetracaine ophthalmic, 2 drop(s), Soln-Opth, OPTH, Once, Stop date 07/03/22 8:47:00 EST, STAT, Start date 07/03/22 8:47:00 EST Future Appointments Appointment Date:07/18/2022 11:00:00 AM Scheduled Provider: Location:FT.CARDIO Appointment Type:CV Echo (FT) Future Scheduled Tests Radiology* Echo Transthoracic Complete 07/18/22 * XR Spine Lumbosacral Minimum 4 Views 06/26/22 [facility]03-08-2023 Hospital Discharge instructions Patient Education 07/03/2022 09:35:19 Corneal Abrasion Corneal Abrasion A corneal abrasion is a scratch or injury to the clear covering over the front of the eye (cornea).Your cornea forms a clear dome that protects your eye and helps to focus your vision. Your cornea is made up of many layers, but the surface layer is one of the most sensitive tissues in your body. Acorneal abrasion can be very painful. If a corneal abrasion is not treated, it can become infected and cause an ulcer. This can lead to scarring. A scarred cornea can affect your vision. Sometimes abrasions come back in the same area, even after the original injury has healed. What are the causes? This condition may be caused by: A machine feed operator the eye. A gritty or irritating substance (foreign body) in the eye. Excessive eye rubbing. Very dry eyes. Certain eye infections. Contact lenses that fit poorly or are worn for a long period of time. You can also injure your cornea when putting contact lenses in your eye or taking them out. Eye surgery. Certain cornea problems may increase the chance of a corneal abrasion. Sometimes, the cause is not known. What are the signs or symptoms? Symptoms of this condition include: Eye pain. The pain may get worse when you open and close your eye or when you move your eye. A feeling of something stuck in your eye. Tearing, redness, and sensitivity to light. Having trouble keeping your eye open, or not being able to keep it open. Blurred vision. Headache. How is this diagnosed? You may work with a health care provider who specializes in diseases and conditions of the eye (steel hanger). This condition may be diagnosed based on your medical history, symptoms, and an eye exam. Before the eye exam, numbing drops may be put into your eye. You may also have dye put in your eye with a dropper or a small paper strip. The dye makes the abrasion easy to see when your steel hanger examines your eye with a light. Your steel hanger may look at your eye through an eye scope (slit lamp). How is this treated? Treatment may vary depending on the cause of your condition, and it may include: Washing out your eye. Removing any foreign bodies that are in your eye. Using antibiotic drops or ointment to treat or prevent an infection. Using a dilating drop to decrease inflammation and pain. Using steroid drops or ointment to treat redness, irritation, or inflammation. Applying a cold, wet cloth (cold compress) or ice pack to ease the pain. Taking pain medicine by mouth (orally). In some cases, an eye patch or bandage soft contact lens might also be used. An eye patch should not be used if the corneal abrasion was related to contact lens wear as it can increase the chance of infection in these eyes. Follow these instructions at home: Medicines Use eye drops or ointments as told by your health care provider. If you were prescribed antibiotic drops or ointment, use them as told by your health care provider.Do not stop using the antibiotic even if you start to feel better. Take acti-tgh-sntglkc and prescription medicines only as told by your health care provider. Ask your health care provider if the medicine prescribed to you: ?Requires you to avoid driving or using heavy machinery. ?Can cause constipation. You may need to take these actions to prevent or treat constipation: ?Drink enough fluid to keep your urine pale yellow. ?Take azoq-ddu-fzfqxcz or prescription medicines. ?Eat foods that are high in fiber, such as beans, whole grains, and fresh fruits and vegetables. ?Limit foods that are high in fat and processed sugars, such as fried or sweet foods. Eye patch use If you have an eye patch, wear it as told by your health care provider. ?Do not drive or use machinery while wearing an eye patch. Your ability to electronic gluing machine operator distances will be impaired. ?Follow instructions from your health care provider about when to remove the patch. General instructions Ask your health care provider whether you can use a cold compress on your eye to relieve pain. Do not rub or touch your eye. Do not wash out your eye. Do not wear contact lenses until your health care provider says that this is okay. Avoid bright light and eye strain. Keep all follow-up visits as told by your health care provider. This is important for preventing infection and vision loss. Contact a health care provider if: You continue to have eye pain and other symptoms for more than 2 days. You have new symptoms, such as worse redness, tearing, or discharge. You have discharge that makes your eyelids stick together in the morning. Your eye patch becomes so loose that you can blink your eye. Symptoms return after the original abrasion has healed. Get help right away if: You have severe eye pain that does not get better with medicine. You have vision loss. Summary A corneal abrasion is a scratch or injury to the clear covering over the front of the eye (cornea). It is important to get treatment for a corneal abrasion. If this problem is not treated, it can affect your vision. Use eye drops or ointments as told by your health care provider. If you have an eye patch, do not drive or use machinery while wearing it. Your ability to electronic gluing machine operator distances will be impaired. Let your health care provider know if your symptoms continue for more than 2 days. This information is not intended to replace advice given to you by your health care provider. Make sure you discuss any questions you have with your health care provider. Document Released: 04/11/2001 Document Revised: 08/20/2019 Document Reviewed: 08/20/2019 [employer] Patient Education 2019 [employer]. Follow Up Care 07/03/2022 08:23:25 With:Gayla Dunbar Address: [facility] [address] [place] [address]- Business (1) When:07/06/2022 09:34:59 Comments:Follow-up with ophthalmology With:Lorri Ireland Address: [address], [address] [place] [address]- Business (1) When:Within 3 Day(s) [facility]03-01-2023 Evaluation + Plan note Future Scheduled Tests Radiology* XR Spine Lumbosacral Minimum 4 Views 06/26/22 [facility]05-20-2022 Hospital Discharge instructions Patient Education 09/14/2021 19:56:26 Abdominal Pain, Adult, Lqzq-ia-Apjm Abdominal Pain, Adult Many things can cause belly (abdominal) pain. Most times, belly pain is not dangerous. Many cases of belly pain can be watched and treated at home. Sometimes, though, belly pain is serious. Your doctor will try to find the cause of your belly pain. Follow these instructions at home: Medicines Take ltkh-gsp-vyktclq and prescription medicines only as told by your doctor. Do not take medicines that help you poop (laxatives) unless told by your doctor. General instructions Watch your belly pain for any changes. Drink enough fluid to keep your pee (urine) pale yellow. Keep all follow-up visits as told by your doctor. This is important. Contact a doctor if: Your belly pain changes or gets worse. You are not hungry, or you lose weight without trying. You are having trouble pooping (constipated) or have watery poop (diarrhea) for more than 2 3 days. You have pain when you pee or poop. Your belly pain wakes you up at night. Your pain gets worse with meals, after eating, or with certain foods. You are vomiting and cannot keep anything down. You have a fever. You have blood in your pee. Get help right away if: Your pain does not go away as soon as your doctor says it should. You cannot stop vomiting. Your pain is only in areas of your belly, such as the right side or the left lower part of the belly. You have bloody or black poop, or poop that looks like tar. You have very bad pain, cramping, or bloating in your belly. You have signs of not having enough fluid or water in your body (dehydration), such as: ?Dark pee, very little pee, or no pee. ?Cracked lips. ?Dry mouth. ?Sunken eyes. ?Sleepiness. ?Weakness. You have trouble breathing or chest pain. Summary Many cases of belly pain can be watched and treated at home. Watch your belly pain for any changes. Take zprk-rcr-kjekoiy and prescription medicines only as told by your doctor. Contact a doctor if your belly pain changes or gets worse. Get help right away if you have very bad pain, cramping, or bloating in your belly. This information is not intended to replace advice given to you by your health care provider. Make sure you discuss any questions you have with your health care provider. Document Released: 09/30/2008 Document Revised: 08/23/2019 Document Reviewed: 08/23/2019 [employer] Patient Education 2020 [employer] 09/14/2021 18:04:24 Burn Care, Adult, Vldz-xb-Xhlc Burn Care, Adult A burn is an injury to the skin or the tissues under the skin. There are three types of gaitan: First degree. These gaitan may cause the skin to be red and a bit swollen. Second degree. These gaitan are very painful and cause the skin to be very red. The skin may also leak fluid, look shiny, and start to have blisters. Third degree. These gaitan cause permanent damage. They turn the skin white or black and make it look charred, dry, and leathery. Taking care of your burn properly can help to prevent pain and infection. It can also help the burnto heal more quickly. How is this treated? Right after a burn: Rinse or soak the burn under cool water. Do this for several minutes. Do not put ice on your burn. That can cause more damage. Lightly cover the burn with a clean (sterile) cloth (dressing). Burn care Raise (elevate) the injured area above the level of your heart while sitting or lying down. Follow instructions from your doctor about: ?How to clean and take care of the burn. ?When to change and remove the cloth. Check your burn every day for signs of infection. Check for: ?More redness, swelling, or pain. ?Warmth. ?Pus or a bad smell. Medicine Take sexw-vvw-tzvtwjs and prescription medicines only as told by your doctor. If you were prescribed antibiotic medicine, take or apply it as told by your doctor. Do not stop using the antibiotic even if your condition improves. General instructions To prevent infection: ?Do not put butter, oil, or other home treatments on the burn. ?Do not scratch or pick at the burn. ?Do not break any blisters. ?Do not peel skin. Do not rub your burn, even when you are cleaning it. Protect your burn from the sun. Contact a doctor if: Your condition does not get better. Your condition gets worse. You have a fever. Your burn looks different or starts to have black or red spots on it. Your burn feels warm to the touch. Your pain is not controlled with medicine. Get help right away if: You have redness, swelling, or pain at the site of the burn. You have fluid, blood, or pus coming from your burn. You have red streaks near the burn. You have very bad pain. This information is not intended to replace advice given to you by your health care provider. Make sure you discuss any questions you have with your health care provider. Document Released: 01/21/2009 Document Revised: 08/04/2019 Document Reviewed: 10/01/2016 [employer] Patient Education 2020 [employer]. Follow Up Care 09/14/2021 17:36:21 With:Lorri Ireland CNP Address: [address] [place] [address], [address] [place] [address]- When:09/17/2021 With:Shiela DC, Miguel Angel Swan, PIO Address: Brenda ROSS, [facility] [address] [place] [address]- When:2 to 4 days [facility]03-25-2022 Note Attestation signed by Misti Ziegler MD at 07/21/2021 8:31 AM [facility] See note from today. The patient will follow up in [place] with Dr Antonio and precautions were addressed Less than 30 minutes spent Misti Ziegler MD Department of Obstetrics and Gynecology [facility] Discharge Summary Admission on 07/18/2021 11:34 PM Alejandra Real is a 25 y.o. at 33w6d who was admitted for tPTL. Patient transferred from [facility] after making change from 1-->3cm after office visit. At OSH received BMZx1, PCN, terbutaline x3, 20mg procardia, and magnesium sulfate. Abruption labs were obtained and negative. Upon admission to [facility] patient was unchanged and CTX q3min. Patient was started on Procardia 10mg q6hr until she was 34w0d. BMZx2 was administered on 07/19. A growth US was obtained 07/19 and showed EFW 2494g (57%ile) with normal DAGOBERTO. Pt was uncomfortable enough on arrival and received epidural, however did not make any cervical roving changer he course of a day and ctx stopped. Epidural was removed and pt remained comfortable. After watching the FHT throughout the day, pt was discharged home in stable condition. Will plan to follow up with primary OBGYN. Meds: Medication List CONTINUE taking these medications Iron 325 (65 Fe) MG Tabs 1+1 PO Discharge to: Home Discharge date: 07/20/2021 Discharge Dx: Threatened Labor Follow up appointment with your doctor/litigation examiner - Keep next scheduled appointment Activity - Off feet as much as possible Call your doctor/litigation examiner if you have: - leaking fluid - vaginal bleeding - regular contractions: Every 5 minutes or closer for one hour - decreased movement - worsening abdominal (belly) pain - headache, blurry vision, increased swelling, upper abdominal pain Renetta Lam, DO on 07/20/2021 at 3:48 [facility]03-25-2022 Hospital Discharge instructions* Instructions* Tera Martin MD - 07/20/2021 Follow up appointment with your doctor/litigation examiner - call your revenue stamp clerk for follow up within the next week Activity - Normal Activity, however no heavy lifting or intercourse Call your doctor/litigation examiner if you have: - leaking fluid - vaginal bleeding - regular contractions: More than 6 contractions in one hour - decreased movement - worsening abdominal (belly) pain - headache, blurry vision, increased swelling, upper abdominal pain If you are going home with contractions that are uncomfortable/painful- we recommend these coping strategies: rhythmic breathing, hydrotherapy, imagery or visualization, gentle massage, walking and changing your position. Treatment Verification: Alejandra Real was assessed on Labor and Delivery for a related visit on 07/20/21. Tera Martin MD [facility] documented in this [facility] Work Phone: [phone] History of Present illness Narrative* Mirtha Joshi DTR - 07/20/2021 10:36 AM EDT Nutrition rescreen completed. Patient assigned a level 1. * Tera Martin MD - 07/20/2021 6:30 AM EDT Images from the original note were not included. Maternal Medicine Service Resident Progress Note 07/20/2021 6:31 AM 07/18/2021 Hospital Day: 3 Alejandra Real, 25 y.o. 34w0d Patient has been seen and examined. Epidural turned off overnight and patient had dinner. Has not had any contractions overnight. Positive movement Negative vaginal bleeding Negative LOF Negative Contractions Vitals: 07/19/21 0625 07/19/21 0630 07/19/21 0635 07/19/21 0640 BP: Pulse: 103 105 121 105 Resp: Temp: TempSrc: Weight: Height: FHT: Cat I Contractions: irregular Physical Exam: Gen: NAD HEENT: Normocephalic, Atraumatic, EOMI, MMM Resp: no increased work of breathing Abd: soft, gravid, NTND, no rebound, no guarding. negative fundal tenderness Ext: No LE edema, no calf tenderness or swelling Medications: Current Facility-Administered Medications Medication Dose Route Frequency Provider Last Rate Last Admin ferrous sulfate (IRON 325) tablet 325 mg 325 mg Oral Daily Jerrell Velez, DO 325 mg at 07/19/21 0758 lactated ringers infusion IntraVENous Continuous Jerrell Velez DO 125 mL/hr at 07/19/21 0200 New Bag at 07/19/21 0200 sodium chloride flush 0.9 % injection 10 mL 10 mL IntraVENous 2 times per day Jerrell Velez, DO 10 mL at 07/19/21 0800 sodium chloride flush 0.9 % injection 10 mL 10 mL IntraVENous PRN Jerrell Velez, DO 0.9 % sodium chloride infusion 25 mL IntraVENous PRN Jerrell Velez, DO ondansetron (ZOFRAN-ODT) disintegrating tablet 4 mg 4 mg Oral Q8H PRN Jerrell Velez, DO Or ondansetron (ZOFRAN) injection 4 mg 4 mg IntraVENous Q6H PRN Jerrell Velez, DO acetaminophen (TYLENOL) tablet 650 mg 650 mg Oral Q4H PRN Jerrell Velez, DO 650 mg at 07/19/21 0213 Or acetaminophen (TYLENOL) suppository 650 mg 650 mg Rectal Q4H PRN Jerrell Velez, DO vitamin 27-1 MG tablet 1 tablet 1 tablet Oral Daily Jerrell Velez DO 1 tablet at 07/19/21 0758 docusate sodium (COLACE) capsule 100 mg 100 mg Oral BID PRN Jerrell Velez DO ropivacaine 0.2% in sodium chloride 0.9% 200mL (OB) epidural 8 mL/hr Epidural Continuous [place] Director Of Curriculum And Instruction, VALUE STREAM MANAGER - [employer]OTARY ROCK DRILLING MACHINE OPERATOR And ropivacaine 0.2% in sodium chloride 0.9% (OB) epidural syringe Epidural Continuous [place] Director Of Curriculum And Instruction, VALUE STREAM MANAGER - ROTARY ROCK DRILLING MACHINE OPERATOR Assessment/Plan: Alejandra Real is a 25 y.o. female 34w0d tPTL - Unchanged on multiple exams since admission, remains 3cm - Received epidural yesterday, then turned off in the evening - S/p PCN - S/p BMZx2 - No contractions overnight, patient desiring discharge today if she remains comfortable Abnormal glucose testing - Trending BGTs during steroid window - Elevated but will continue to monitor fasting and 1hr postprandial IUP @ 34w0d - Dating by 7w5d US - Cephalic on 07/19 - Monitoring: CEFM - Diet: general - BMZx2 on Further plan pending d/w attending. Tera Martin MD 07/20/2021, 6:31 AM Associated attestation - Misti Ziegler MD - 07/20/2021 3:18 PM EDT I independently saw and evaluated the patient. I agree with the findings and plan of care as documented in the resident's note. 25 yr old at 34 0/7 GA with the following: Threatened labor no change in her cervix discussed discharge today, overall Cat 1 tracing with one late deceleration and will monitor until 1600 and if Cat 1 okay for discharge Abnormal glucose none higher than 180 no GDM probably related to steroids I spent 15 minutes in the visit today on the floor reviewing the chart, discussing the case with the residency staff and nursing Misti Ziegler MD * Renetta Lam, - 07/19/2021 7:14 AM EDT Called by RN to check pt due to increased discomfort. Pt unchanged . Pt requesting epidural,however pt overall comfortable appearing in room. Will give tylenol 1g and reassess. FHT cat I and reassuring. Called in to recheck pt, feeling more rectal pressure like she needs to push. SVE remains unchanged, and does not feel like a laboring cervix. Will get epidural at this time. Called by RN for continued pelvic pressure with functioning epidural in place. Pt reports she can still feel mild ctx but not pain. SVE again remains unchanged . Ctx appear to be spacing out. Will reassess and discuss turning off epidural this afternoon. Procardia stopped. FHR intermittentlycat II for periods of tachycardia, overall reassuring with moderate variability. * Jerrell Velez DO - 07/19/2021 1:23 AM EDT cM/(Farideh) tPTL documented in this [facility] Work Phone: Evaluation + Plan note No data available for this section [facility] Appointments Appointment Date:07/18/2022 11:00:00 AM Scheduled Provider: Location:FT.CARDIO Appointment Type:CV Echo (FT) Future Scheduled Tests Radiology* Echo Transthoracic Complete 07/18/22 * XR Spine Lumbosacral Minimum 4 Views 06/26/22 [facility] Evaluation + Plan note Future Appointments Appointment Date:09/27/2022 09:00:00 AM Scheduled Provider: Location:FT.CARDIO Appointment Type:CV Echo (FT) Future Scheduled Tests Radiology* Echo Transthoracic Complete 09/27/22 * XR Spine Lumbosacral Minimum 4 Views [facility]/26/22 [facility] Appointments Appointment Date:05/13/2023 10:00:00 AM Scheduled Provider: Location:.PHYSICAL [place] Appointment Type:PT Eval (FT) Future Scheduled Tests Radiology* XR Spine Lumbosacral Minimum 4 Views 06/26/22 [facility] Evaluation + Plan note Future Appointments Appointment Date:05/28/2023 01:45:00 PM Scheduled Provider: Location:.PH[place]ICAL [place] Appointment Type:PT Eval (FT) Future Scheduled Tests Radiology* XR Spine Lumbosacral Minimum 4 Views 06/26/22 [facility]ments Appointment Date:06/17/2023 10:15:00 AM Scheduled Provider: Location:.PH[place]ICAL [place] Appointment Type:PT 45 (FT) Appointment Date:06/18/2023 11:00:00 AM Scheduled Provider: Location:.PH[place]ICAL [place] Appointment Type:PT 45 (FT) Appointment Date:06/20/2023 01:00:00 PM Scheduled Provider: Location:.PH[place]ICAL [place] Appointment Type:PT Re-Eval 45 (FT) Future Scheduled Tests Radiology* XR Spine Lumbosacral Minimum 4 Views 06/26/22 [facility] App[facility]ments Appointment Date:07/08/2023 08:45:00 AM Scheduled Provider: Location:.[place]ICAL [place] Appointment Type:PT Re-Eval 45 (FT) [facility] Evaluation + Plan note Future Appointments Appointment Date:07/08/2023 08:45:00 AM Scheduled Provider: Location:.PHYSICAL [place] Appointment Type:PT Re-Eval 45 (FT) Diagnostic Tests Pending * Urine Culture [facility]07/23 [facility] App[facility]ments Appointment Date:08/04/2023 11:00:00 AM Scheduled Provider: Location:.CARDIO Appointment Type:CV Holter/Event (FT) Appointment Date:08/06/2023 07:00:00 AM Scheduled Provider: Location:.[facility]TRASOUND Appointment Type:US Abdominal/Pelvis (FT) Future Scheduled Tests Radiology* US Abdomen Complete 08/06/23 [facility] Appointments Appointment Date:08/06/2023 07:00:00 AM Scheduled Provider: Location:.[facility]TRASOUND Appointment Type:US Abdominal/Pelvis (FT) Future Scheduled Tests Radiology* US Pelvis Non-OB Complete 08/06/23 * US Transvaginal Non-OB 08/06/23 [facility] Future Appointments Appointment Date:11/03/2023 10:45:00 AM Scheduled Provider:Fatoumata Gooden MD Location:.[facility] Clinic Appointment Type:Vascular Follow Up (FT) [facility] Future Appointments Appointment Date:11/03/2023 10:45:00 AM Scheduled Provider:Fatoumata Gooden MD Location:.V[facility] Clinic Appointment Type:Vascular Follow Up (FT) Appointment Date:11/17/2023 01:45:00 PM Scheduled Provider:Cristóbal Granados DO Location:.Pain Mgmt [place] Appointment Type:Pain Management - New (FT) [facility] Future Appointments Appointment Date:11/17/2023 01:45:00 PM Scheduled Provider:Cristóbal Granados DO Location:.[facility] [place] [facility]ment [facility] Future App[facility]ments Appointment Date:11/27/2023 08:15:00 AM Scheduled Provider:Cristóbal Granados DO Location:.[facility] [place] Appointment Type:Pain Management - New (FT) [facility] evaluation + Plan note Future Appointments Appointment Date:11/27/2023 08:15:00 AM Scheduled Provider:Cristóbal Granados DO Location:.[facility] [place] Appointment Type:Pain Management - New (FT) Diagnostic Tests Pending * RPR with Conf Rfx 11/24/23 * HIV Screen 4th Generation wRfx 11/24/23 * Acute Hepatitis A B C Panel 11/24/23 [facility] Evaluation note* Diagnosis Threatened labor, antepartum Threatened premature labor, antepartum documented in this encounter [facility] Work Phone: Evaluation note* Diagnosis Difficulty breathing- Primary Other dyspnea and respiratory abnormality Nasal septal deviation Deviated nasal septum Hypertrophy of inferior nasal turbinate Collapse of nasal valve Nasal congestion Other diseases of nasal cavity and sinuses Deviated septum Deviated nasal septum documented in this encounter [facility] Work Phone: Evaluation note* Diagnosis Deviated septum- Primary Deviated nasal septum Nasal septal deviation Deviated nasal septum Acute post-operative pain Hypertrophy of nasal turbinates Acquired deformity of nose Nasal congestion Other diseases of nasal cavity and sinuses Mild asthma Unspecified asthma Deviated septum- Primary Deviated nasal septum Nasal congestion Other diseases of nasal cavity and sinuses Difficulty breathing Other dyspnea and respiratory abnormality Collapse of nasal valve Hypertrophy of inferior nasal turbinate documented in this encounter [facility] Work Phone: Evaluation note* Diagnosis Deviated septum- Primary Deviated nasal septum Nasal congestion Other diseases of nasal cavity and sinuses Difficulty breathing Other dyspnea and respiratory abnormality Collapse of nasal valve Hypertrophy of inferior nasal turbinate documented in this encounter [facility] Work Phone: Evaluation noteNo assessment information available [facility] Work Phone: Hospital Discharge instructions No data available for this section [facility] Additional Instructions Continue taking your Naprosyn and Tylenol for minor pain [place] for severe pain You cannot work or drive when taking [place] Follow-up with your [employer] call tomorrow for 7-year-old here appointment Return here if any problems persist or worsen as discussed[facility] Work Phone: Hospital Discharge instructions Additional Instructions Take 1 hydrocodone every 6 hours for severe pain Continue the other medications as needed Follow-up with the specialist as scheduled Return to the ER for high fever vomiting more severe pain or any other concerns [facility] Work Phone: Hospital Discharge instructions Additional Instructions If your symptoms return/worsen or you develop any further concerns or symptoms please see your doctor or return to the emergency department immediately.[facility] Work Phone: Hospital Discharge instructions Additional Instructions 1. Must follow up with pcp for any additional tramadol 2. [facility] note No data available for this section [facility] Advance Directives No Advanced Directives Records FoundLatest Code Status on File Code Status Date Activated Date Inactivated Comments Full Code 07/19/2021 1:12 AM Advance Directive Response Recorded Date/ Time Advance Directives No August 04 3:47pm Summary Purpose Family History No Family History Records Found Relationship Condition Age at Onset Recorded Date/T bryant Not Specified Diabetes mellitus Unknown Relationship Condition Age at Onset Recorded Date/T bryant mother Diabetes mellitus Unknown Chief Complaint and Reason for Visit Chief Complaint abdominal pain Chief Complaint abdominal pain pelvic pain r side, nausea Chief Complaint abdominal pain pelvic pain r side, nausea abd pain Chief Complaint abdominal pain pelvic pain r side, nausea abd pain Pelvic and Abd pain, nausea Chief Complaint abdominal pain pelvic pain r side, nausea abd pain Pelvic and Abd pain, nausea pelvic pain Additional Source Comments Reason for Visit (unrecogniz ed section and content) Reason Comments Laboring Reason Comments Deviated Nasal Septum Hard to breathe, h eadaches Specialty Diagnoses / Procedures Referred By Lou t Referred To Contact Diagnoses Deviated nasal septum Hypertrophy of nasal turbinates Acquired deformity of nose Nasal congestion Deviated nasal septum [J34.2] Hypertrophy of nasal turbinates [J34.3] 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] Nasal congestion [R09.81] Procedures LA SEPTOPLASTY/SUBMUCOUS RESECJ W/WO CARTILAGE GRF LA RHINOPLASTY PRIMARY W/MAJOR SEPTAL REPAIR LA REPAIR NASAL VESTIBULAR STENOSIS LA SUBMUCOUS RESCJ INFERIOR TURBINATE PRTL/COMPL LA FRACTURE NASAL INFERIOR TURBINATE THERAPEUTIC Septoplasty, Inferior turbinate reduction, Nasal valve repair, Reconstructive rhinoplasty; CASE LENGTH= 2.5 HOURS Reconstructive rhinoplasty Repair Nasal Valve Excision Nasal Turbinate Fracture [place]rapeutic [place] [address] [place] [address] [facility] [place] [address] [place] [address] Referral ID Status Reason Start Date Expiration Date Visits Re quested Visits Authorized [id number] 1 1 Reason Comments Post-op Visit Scheduled Active and Recently Administ ered Medications (unrecognized section and content) Medication Order 07/18/2021 07/19/2021 07/20/2021 acetaminophen (TYLENOL) tablet 1,000 mg (COMPLETED) 1,000 mg, Oral, ONCE, 1 dose, On Yadira 07/19/21 at 0730, Maximum dose of acetaminophen is 4000 mg from all sources in 24 hours. 0726 (Given - Provider: Megha Watts RN) betamethasone acetate-betamethasone sodium phosphate (CELESTONE) injection 12 mg (COMPLETED) 12 mg, IntraMUSCular, ONCE, 1 dose, On Yadira 07/19/21 at 1100 1049 (Given - Provider: Sil Wade, WINNIE) ferrous sulfate (IRON 325) tablet 325 mg 325 mg, Oral, DAILY, First dose on Yadira 07/19/21 at 0900, Until Discontinued 0758 (Given - Provider: Megha Watts RN) 0801 (Given - Provider: Graciela Kathleen RN) NIFEdipine (PROCARDIA) capsule 10 mg (CANCELED) 10 mg, Oral, EVERY 6 HOURS SCHEDULED (4 times per day), 4 doses, First dose on Yadira 07/19/21 at 0130, Last dose on Yadira 07/19/21 at 2200 0213 (Given - Provider: Dorothy Hanks RN)0758 (Given - Provider: Megha Watts, WINNIE) penicillin G potassium in d5w IVPB 2.5 Million Units (CANCELED) 2.5 Million Units, IntraVENous, EVERY 4 HOURS, First dose on Yadira 07/19/21 at 0230, Until Discontinued, Antimicrobial Indications: GBS Prophylaxis 0215 (New Bag - Provider: Dorothy Hanks RN)0300 (Stopped - Provider: Dorothy Hanks RN)0639 (New Bag - Provider: Dorothy Hanks RN)0709 (Stopped - Provider: Megha Watts RN)1048 (New Bag - Provider: Sil Wade RN)1118 (Stopped - Provider: Sil K Nevinski, RN)1429 (New Bag - Provider: Sil Wade RN)1459 (Stopped - Provider: Sil Wade RN)1820 (New Bag - Provider: Moriah Randhawa RN)1850 (Due: Stopped - Provider: Moriah Randhawa RN)2300 (New Bag - Provider: Gina Lopes, WINNIE)2330 (Due: Stopped - Provider: Gina Lopes, RN) 0230 (Due) vitamin 27-1 MG tablet 1 tablet 1 tablet, Oral, DAILY, First dose on Yadira 07/19/21 at 0900, Until Discontinued 0758 (Given - Provider: Megha Watts RN) 0801 (Given - Provider: Graciela Kathleen, WINNIE) sodium chloride flush 0.9 % injection 10 mL 10 mL, IntraVENous, EVERY 12 HOURS SCHEDULED (2 times per day), First dose on Yadira 07/19/21 at 0900, Until Discontinued 0354 (Given - Provider: Dorothy Hanks RN)0800 (Given - Provider: Megha Watts RN)2100 (Due) 0845 (Given - Provider: Graciela Kathleen, WINNIE)2100 (Due) Continuous Medication Order 07/18/2021 07/19/2021 07/20/2021 lactated ringers infusion (CANCELED) IntraVENous, at 125 mL/hr, CONTINUOUS, Starting on Yadira 07/19/21 at 0130 0200 (New Bag - Provider: Dorothy Hanks RN) 0844 (Stopped - Provider: Graciela Kathleen, WINNIE) ropivacaine 0.2% in sodium chloride 0.9% (OB) epidural syringe(Linked Group 1) Epidural, CONTINUOUS, Starting on Yadira 07/19/21 at 0700, PCEA patient controlled syringe Pt. Controlled Dose: 5 ml Lockout Interval: 10 min One Hour Limit: 15 mL, Labor and Delivery 0700 (Due) ropivacaine 0.2% in sodium chloride 0.9% 200mL (OB) epidural(Linked Group 1) 8 mL/hr, Epidural, CONTINUOUS, Starting on Yadira 07/19/21 at 0700, Until Discontinued, PCEA Basal Infusion, Labor and Delivery 0700 (Due) PRN Medication Order 07/18/2021 07/19/2021 07/20/2021 0.9 % sodium chloride infusion 25 mL, IntraVENous, at 100 mL/hr, PRN, If patient receiving piggyback infusions without ordered maintenance IV fluids or with frequent/long duration piggyback infusions, Starting on Yadira 07/19/21 at 0107, Administer at the same rate as the piggyback being infused. acetaminophen (TYLENOL) suppository 650 mg(Linked Group 2) 650 mg, Rectal, EVERY 4 HOURS PRN, Starting on Yadira 07/19/21 at 0107, Until Discontinued, Pain Mild (1-3), Fever, Fever >100.5 (38 C), Use suppository if NPO or unable to tolerate oral medications. 0213 (See Alternative - Provider: Dorothy Hanks, WINNIE) acetaminophen (TYLENOL) tablet 650 mg(Linked Group 2) 650 mg, Oral, EVERY 4 HOURS PRN, Starting on Yadira 07/19/21 at 0107, Until Discontinued, Pain Mild (1-3), Fever, Fever >100.5 (38 C), Do not use if NPO. 0213 (Given - Provider: Dorothy Hanks RN) docusate sodium (COLACE) capsule 100 mg 100 mg, Oral, 2 TIMES DAILY PRN, Starting on Yadira 07/19/21 at 0107, Until Discontinued, Constipation, Do not crush or break. 0939 (Given - Provid er: Graciela Kathleen RN) ondansetron (ZOFRAN) injection 4 mg(Linked Group 3) 4 mg, IntraVENous, EVERY 6 HOURS PRN, Starting on Yadira 07/19/21 at 0107, Until Discontinued, Nausea, Vomiting, Administer if oral route cannot be used. ondansetron (ZOFRAN-ODT) disintegrating tablet 4 mg(Linked Group 3) 4 mg, Oral, EVERY 8 HOURS PRN, Starting on Yadira 07/19/21 at 0107, Until Discontinued, Nausea, Vomiting sodium chloride flush 0.9 % injection 10 mL 10 mL, IntraVENous, PRN, Starting on Yadira 07/19/21 at 0107, Until Discontinued, Line Care, After every IV line use Linked Groups Order Group 1: ropivacaine 0.2% in sodium chloride 0.9% 200mL (OB) epiduralJump to med 8 mL/hr, Epidural, CONTINUOUS, Starting on Yadira 07/19/21 at 0700, Until Discontinued
PCEA Basal Infusion
Labor and Delivery And ropivacaine 0.2% in sodium chloride 0.9% (OB) epidural syringeJump to med Epidural, CONTINUOUS, Starting on Yadira 07/19/21 at 0700
PCEA patient controlled syringe Pt. Controlled Dose: 5 ml Lockout Interval: 10 min One Hour Limit: 15 mL
Labor and Delivery Group 2: acetaminophen (TYLENOL) tablet 650 mgJump to med 650 mg, Oral, EVERY 4 HOURS PRN, Starting on Yadira 07/19/21 at 0107, Until Discontinued, Pain Mild (1-3), Fever, Fever >100.5 (38 C)
Do not use if NPO.
Or acetaminophen (TYLENOL) suppository 650 mgJump to med 650 mg, Rectal, EVERY 4 HOURS PRN, Starting on Yadira 07/19/21 at 0107, Until Discontinued, Pain Mild (1-3), Fever, Fever >100.5 (38 C)
Use suppository if NPO or unable to tolerate oral medications.
Group 3: ondansetron (ZOFRAN-ODT) disintegrating tablet 4 mgJump to med 4 mg, Oral, EVERY 8 HOURS PRN, Starting on Yadira 07/19/21 at 0107, Until Discontinued, Nausea, Vomiting Or ondansetron (ZOFRAN) injection 4 mgJump to med 4 mg, IntraVENous, EVERY 6 HOURS PRN, Starting on Yadira 07/19/21 at 0107, Until Discontinued, Nausea, Vomiting
Administer if oral route cannot be used.
Scheduled Medication Order 03/22/2023 03/23/2023 03/24/2023 aprepitant (Emend) capsule 40 mg (COMPLETED) 40 mg, oral, Once, On Fri03/24/23 at 0715, For 1 dose, Preprocedure 0724 (Given - Provid er: Edith Trinidad RN) Continuous Medication Order 03/22/2023 03/23/2023 03/24/2023 lactated Ringer's infusion 100 mL/hr, intravenous, Continuous, Starting on Fri03/24/23 at 0715, Preprocedure 0724 (New Bag - Prov ider: Edith Trinidad RN)0739 (Continued by Anesthesia - Provider: DULCE Villagran)1026 (Continued from OR - Provider: Windy De La Cruz RN)1032 (Stopped - Provider: DULCE Villagran)1105 (Stopped - Provider: Windy De La Cruz RN) PRN Medication Order 03/22/2023 03/23/2023 03/24/2023 balanced salts (BSS) intraocular solution (CANCELED) As needed, Starting on Fri03/24/23 at 0826, Intraprocedure 0826 (Given - Provid er: Thiago Cuellar MD) EPINEPHrine (Adrenalin) 2 mL in sodium chloride 0.9% 20 mL syringe (CANCELED) As needed, Starting on Fri03/24/23 at 0836, Intraprocedure 0836 (Given - Provid er: Thiago Cuellar MD - Comment: Mixture of 20mL 0.9% NaCl, 10mL Tranexemic Acid, and 2mg Epinephrine used to soak cottonoids on sterile field) fentaNYL PF (Sublimaze) injection 50 mcg (CANCELED) 50 mcg, intravenous, Every 5 min PRN, pain severe (7-10), first line, Starting on Fri03/24/23 at 1025, Recovery (only), Max total of 200 micrograms regardless of dose., If ordered PRN for pain, nurse is permitted to administer this medication for higher pain scores based on patient preference? Yes 1040 (Given - Provid er: Windy De La Cruz RN) lidocaine-epinephrine (Xylocaine W/EPI) 1 %-1:100,000 9 mL syringe (CANCELED) As needed, Starting on Fri03/24/23 at 0831, Intraprocedure 0831 (Given - Provid er: Thiago Cuellar MD - Comment: Mixture of 9mL 1% Lidocaine with Epinephrine 1:100,000 and 1mL Tranexamic Acid) mupirocin (Bactroban) 2 % ointment (CANCELED) As needed, Starting on Fri03/24/23 at 0946, Intraprocedure 0946 (Given - Provid er: Thiago Cuellar MD) oxyCODONE-acetaminophen (Percocet) 5-325 mg per tablet 1 tablet (CANCELED) 1 tablet, oral, Every 4 hours PRN, pain moderate (4-6), second line, pain severe (7-10), second line, Starting on Fri03/24/23 at 1025, Recovery (only), When able to take oral medications., If ordered PRN for pain, nurse is permitted to administer this medication for higher pain scores based on patient preference? Yes 1130 (Given - Provid er: Eugenia Bermudez RN) oxymetazoline (Afrin) 0.05 % nasal spray (CANCELED) As needed, Starting on Fri03/24/23 at 0833, Intraprocedure 0833 (Given - Provid er: Thiago Cuellar MD - Comment: Used to soak cottonoid sponges) sodium chloride 0.9 % irrigation solution (CANCELED) As needed, Starting on Fri03/24/23 at 0842, Intraprocedure 0842 (Given - Provid er: Thiago Cuellar MD) tranexamic acid (Cyklokapron) injection (CANCELED) As needed, Starting on Fri03/24/23 at 0838, Intraprocedure 0838 (Given - Provid er: Thiago Cuellar MD - Comment: Used in mixtures:Injection- 9mL 1% Lidocaine with Epinephrine 1:1000,000 and 1mL Tranexemic AcidCottonoid soak- 20mL 0.9% NaCl, 10mL Tranexemic Acid, 2mg Epinephine) INFORMATION SOURCE (unrecogn ized section and content) DATE CREATED AUTHOR 07/29/2021 [facility] DATE CREATED AUTHOR AUTHOR'S ORGANIZ ATION 04/07/2023 [facility] DATE CREATED AUTHOR AUTHOR'S ORGANIZ ATION 05/04/2023 [facility] DATE CREATED AUTHOR AUTHOR'S ORGANIZ ATION 08/27/2023 [facility] EPIC DATE CREATED AUTHOR AUTHOR'S ORGANIZ ATION 08/30/2023 [facility] DATE CREATED AUTHOR AUTHOR'S ORGANIZ ATION 09/19/2023 [facility] DATE CREATED AUTHOR AUTHOR'S ORGANIZ ATION 09/21/2023 [facility] DATE CREATED AUTHOR AUTHOR'S ORGANIZ ATION 09/22/2023 [facility] DATE CREATED AUTHOR AUTHOR'S ORGANIZ ATION 09/25/2023 [facility] DATE CREATED AUTHOR AUTHOR'S ORGANIZ ATION 09/26/2023 [facility] DATE CREATED AUTHOR AUTHOR'S ORGANIZ ATION 09/27/2023 [facility] DATE CREATED AUTHOR AUTHOR'S ORGANIZ ATION 09/28/2023 [facility] DATE CREATED AUTHOR AUTHOR'S ORGANIZ ATION 10/03/2023 [facility] DATE CREATED AUTHOR AUTHOR'S ORGANIZ ATION 10/05/2023 [facility] DATE CREATED AUTHOR AUTHOR'S ORGANIZ ATION 10/19/2023 [facility] DATE CREATED AUTHOR AUTHOR'S ORGANIZ ATION 10/23/2023 [facility] DATE CREATED AUTHOR AUTHOR'S ORGANIZ ATION 10/25/2023 [facility] DATE CREATED AUTHOR AUTHOR'S ORGANIZ ATION 10/31/2023 [facility] DATE CREATED AUTHOR AUTHOR'S ORGANIZ ATION 11/03/2023 [facility] DATE CREATED AUTHOR AUTHOR'S ORGANIZ ATION 11/20/2023 [facility] DATE CREATED AUTHOR AUTHOR'S ORGANIZ ATION 11/25/2023 [facility] Patient Care team informatio n (unrecognized section and content) Research Nutritionist Relationship Specialty Start Date End Date Gilbert Valverde DO [address] [place] [address] [address] PCP - General Family Medicine 02/06/23 Research Nutritionist Relationship Specialty Start Date End Date Gilbert Valverde DO PCP - General Family Medicine 02/06/23 Research Nutritionist Relationship Specialty Start Date End Date Gilbert Valverde DO PCP - General Family Medicine 02/06/23 Team Status: Active Member Role Status Dates Lorri Ireland Primary Care Provider Active Team Status: Inactive Member Role Status Dates Satish Dean PA-C Emergency Provider Active Start: August 05, 2023 End: August 05, 2023 Lorri Ireland Primary Care Provider Active Star t: August 05, 2023 End: August 05, 2023 Team Status: Inactive Member Role Status Dates Lorri Ireland Primary Care Provider Active Star t: August 20, 2023 End: August 20, 2023 Janeth Johnson APRN Emergency Provider Active Start: August 20, 2023 End: August 20, 2023 Team Status: Inactive Member Role Status Dates Lorri Ireland Primary Care Provider Active Star t: September 04, 2023 End: September 04, 2023 Felisa Tay [facility] Emergency Provider Active Start: September 04, 2023 End: September 04, 2023 Team Status: Inactive Member Role Status Dates Lorri Ireland Primary Care Provider Active Star t: September 27, 2023 End: September 27, 2023 Neptali Esquivel DO Emergency Provider Active Start: September 27, 2023 End: September 27, 2023 Team Status: Inactive Member Role Status Dates Lorri Ireland Primary Care Provider Active Star t: 2023 End: 2023 Anabela Saez APRN Emergency Provider Active Start: 2023 End: 2023 Goals (unrecognized section and content) Goals may be documented in a n alternate section FOR RECORDS PERTAINING TO PATIENTS WHO ARE OR HAVE BEEN ENROLLED IN A CHEMICAL DEPENDENCY/SUBSTANCEABUSE PROGRAM, SOME INFORMATION MAY BE OMITTED. This clinical summary was aggregated from multiple sources. Caution should be exercised in using it in the provision of clinical care. This summary normalizes information from multiple sources, and as a consequence, information in this document may materially change the coding, format and clinical context of patient data. In addition, data may be omitted in some cases. CLINICAL DECISIONS SHOULD BE BASED ON THE PRIMARY CLINICAL RECORDS. [employer] [facility]. provides no warranty or guarantee of the accuracy or completeness of information in this document.
--- NOTE | 2023-11-26 07:17 | ED.ABDPAIN1 ---
HPI - Abdominal Pain General Chief Complaint: Abdominal Pain Stated Complaint: ABD PAIN Time Seen by Provider: 11/26/23 06:57 Source: patient Mode of arrival: walk-in Limitations: no limitations History of Present Illness HPI narrative: 28-year-old female to the emergency department chief complaint of acute on chronic abdominal pain. She has known pelvic congestion syndrome awaiting coiling/stents. She sees vascular surgery for this. Symptoms been ongoing for several months. No change today. She reports that she was excused from work after having a increase in pain from standing. She is requesting a work note. She has upcoming appoint with pain management. Upcoming procedure with vascular surgery. Related Data Home Medications ?Medication ?Instructions ?Recorded ?Confirmed baclofen 10 mg tablet 10 mg PO BID 06/28/23 11/26/23 ferrous sulfate 325 mg (65 mg 325 mg PO DAILY 06/28/23 06/28/23 iron) tablet (Feosol) Previous Rx's ?Medication ?Instructions ?Recorded dicyclomine 20 mg tablet 20 mg PO TID PRN abdominal pain #7 06/28/23 tabs ondansetron 4 mg disintegrating 4 mg PO Q4H PRN nausea and 06/28/23 tablet vomiting 3 days #6 tabs tramadol 50 mg tablet 50 mg PO BID PRN pain 3 days #6 11/26/23 tabs Allergies Allergy/AdvReac Type Severity Reaction Status Date / Time No Known Drug Allergies Allergy Verified 11/26/23 06:59 Review of Systems ROS Status of ROS 10 or more systems reviewed and unremarkable except as noted in history and below PFS PFS Social History Smoking status: Former smoker Exam Narrative Exam Narrative: VITALS: I have reviewed the triage vital signs. GENERAL: Well developed, well appearing adult in no acute distress. NEURO: Alert and oriented. Moves all extremities. Face is symmetric and expressive. EYES: PERRL. No scleral icterus or conjunctival injection. No discharge. HENT: Normocephalic, atraumatic. Hearing is grossly intact. Nares grossly patent and without discharge. Mucous membranes moist. NECK: No JVD. Patient moves neck without restriction. CARDIO: Rhythm regular. Normal rate. No murmur, rub, or gallop. Pulses equal bilaterally in the upper and lower extremity. No lower extremity edema. PULM: Lungs clear to auscultation in all dickens. No wheezes, rales, or rhonchi. No conversational dyspnea. No splinting, stridor, or accessory muscle use. GI/: Abdomen is soft and non-tender. Normoactive bowel sounds. EXTREMITIES: Symmetric muscle bulk. No joint swelling. No clubbing, cyanosis, or deformity. SKIN: Warm and dry. Normal turgor. No rash or lesions appreciated. PSYCH: Mood, affect, and interaction is appropriate to the setting. Constitutional Vital Signs, click to edit/add: Last Vital Signs Temp 98.7 F 11/26/23 06:51 Pulse 98 H 11/26/23 06:51 Resp 16 11/26/23 06:51 BP 121/87 11/26/23 06:51 Pulse Ox 100 11/26/23 06:51 O2 Del Method Room Air 11/26/23 06:51 Course Vital Signs Vital signs: Vital Signs Temperature 98.7 F 11/26/23 06:51 Pulse Rate 98 H 11/26/23 06:51 Respiratory Rate 16 11/26/23 06:51 Blood Pressure 121/87 11/26/23 06:51 Pulse Oximetry 100 11/26/23 06:51 Oxygen Delivery Method Room Air 11/26/23 06:51 Temperature 98.7 F 11/26/23 06:51 Pulse Rate 98 H 11/26/23 06:51 Respiratory Rate 16 11/26/23 06:51 Blood Pressure 121/87 11/26/23 06:51 Pulse Oximetry 100 11/26/23 06:51 Oxygen Delivery Method Room Air 11/26/23 06:51 MDM - Abdominal Pain MDM Narrative Medical decision making narrative: 28-year-old female to the emergency department chief complaint of acute on chronic abdominal pain. Vital stable, the patient is afebrile. Abdominal examination is benign. I have seen this patient at least a dozen times at another facility and her presentation today is typical. No new acute findings. She has received multiple CT scans and workups which were negative except for pelvic congestion syndrome. She has upcoming appointment pain management at [facility] as well as stenting/coiling with vascular surgery. No indication for further workup today, patient agrees with this plan. Short course of tramadol was given as this has helped her in the past when she has exacerbation of pain. Return precautions were discussed. All questions were answered. Patient was discharged home. Medical Records Attestation: I reviewed the patient's medical records. Lab Data Attestation: I reviewed the patient's lab results. Discharge Plan Discharge Stand Alone Forms: Portal Instructions Chief Complaint: Abdominal Pain Clinical Impression: Chronic abdominal pain Patient Disposition: Home, Self-Care Time of Disposition Decision: 07:14 Condition: Good Mode of Transportation: Private Vehicle Prescriptions / Home Meds: New tramadol 50 mg tablet 50 mg PO BID PRN (Reason: pain) 3 Days Qty: 6 0RF No Action baclofen 10 mg tablet 10 mg PO BID ferrous sulfate [Feosol] 325 mg (65 mg iron) tablet 325 mg PO DAILY dicyclomine 20 mg tablet 20 mg PO TID PRN (Reason: abdominal pain) Qty: 7 0RF ondansetron 4 mg tablet,disintegrating 4 mg PO Q4H PRN (Reason: nausea and vomiting) 3 Days Qty: 6 0RF Print Language: Estonian Instructions: Abdominal Pain (ED) Additional Instructions: Seek immediate medical attention if you develop: worsening abdominal pain, new or worsening nausea, new or worsening vomiting, new or worsening diarrhea, chest pain, shortness of breath, pain with urination, problems urinating, fever, chills, weakness, or any new or worsening symptoms. Referrals: Fatoumata Crockett MD [Physician] - 1 week PhysicianNon-StaffMD [Primary Care Provider] - 1 week
== END 2023-11-26 07:31 | disposition home or self-care (01) ==
PROVIDERS: Emergency Provider Student in an Organized Health Care Education/Training Program; Family Provider Family Medicine
DX: R10.9 Unspecified abdominal pain (principal); G89.29 Other chronic pain; Z87.891 Personal history of nicotine dependence
CPT/HCPCS: 99283

== ENCOUNTER 2023-12-02 06:42 | Emergency (ER) | payer OTHER, SELFPAY ==
[2023-12-02 06:46] VITALS: BP 143/78; PULSE 91; TEMP 36.9; O2SAT 100; BMI 24.1
--- OUTSIDE RECORDS SUMMARY | 2023-12-02 06:59 | XMS_ITS | CCD ---
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 Name Role Phone Unavailable Primary Care Provider UnavailLorri Kennedy Primary Care Physician [phone] Gilbert Valverde DO Primary Care Provider Link Gilbert MARIA Primary Care Provider THIAGO CUELLAR Admitting Unavailable THIAGO CUELLAR Attending Unavailable GILBERT VALVERDE Primary Care Unavailable THIAGO CUELLAR Attending Unavailable GILBERT VALVERDE Primary Care Unavailable REGI HUNTER Attending Unavailable GILBERT VALVERDE Primary Care Unavailable REGI HUNTER Attending Unavailable GILBERT VALVERDE Primary Care Unavailable Nancy Rose Primary Care Physician TI Dean Emergency Provider [phone] Lorri Ireland Primary Care Provider NADIA Johnson Emergency Provider [phone] ANABELA SAEZ Attending Unavailable SIVAN KONG Attending Unavailable SIVAN KONG Referring Unavailable GAYLA DUNBAR Attending Unavailable MIGUEL ANGEL PENNINGTON Referring Unavailable LORRI IRELAND Primary Care Unavailable MIGUEL ANGEL ALEMAN Attending Unavailable Maggi, [facility]- Felisa Ayala Emergency Provider DO Vivian Ochoa Attending Unavailable Justo Arias Attending Unavailable Guille Will Attending Unavailable Justo Arias Attending Unavailable Mary Jane Palm H Attending Unavailable Darren Lomax Attending Unavailable Arpita, Astrraina H Attending Unavailable Isaac Stephen Admitting Unavailable Isaac Stephen Attending Unavailable LANETTE LUI Admitting Unavailable LANETTE LUI Attending Unavailable Estefani, Bruno S. Attending Unavailable Hugo, Justo Attending Unavailable LUI, LANETTE Attending Unavailable Hajdari, Astrit H Attending Unavailable Iasac Stephen. Attending Unavailable Geovany Ramirez Attending Unavailable [...] Attending Unavailable DO Neptali Esquivel Emergency Provider Darren Lomax Attending Unavailable Suman, Guille Attending [...] Attending Unavailable Kelópez Neptali A Admitting Unavailable Ireland, Lorri L Primary Care Unavailable Felisa Tay Attending Unavailable Felisa Tay Admitting Unavailable Janeth Johnson Attending Unavailable Janeth Johnson Admitting Unavailable Ireland, Lorri L Primary Care Unavailable Satish Dean Attending Unavailable Satish Dean Admitting Unavailable Ireland, Lorri Rafaela Primary Care Unavailable Fatoumata Gooden Admitting Unavailable Fatoumata Gooden FVinh Attending Unavailable NONE, XXXX Referring Unavailable Ivana Bennett Admitting Unavailable Ivana Bennett Attending Unavailable Guille Will Attending Unavailable Justo Arias Attending Unavailable DANNIELLE MORENO Attending UnavailDO Bruno Alfaro Attending Unavailable Justo Arias Attending Unavailable Medications Current Medications Medication Drug [...] 04, 2023 12:42pm Start: 07-07-2023 End: 07-10-2023 [place] 325 mg-5 mg oral table t 1 tab(s), Oral, q6hr for pain for 3 day(s), 12 tab(s), Refill(s) 0, [email or web address][id number], 160, cm, 07/07/23 11:13:00 EDT, Height/Length Dosing, 69.9, kg, 07/07/23 11:13:00 EDT, Weight Dosing Start Date: 07/07/23 Stop Date: 07/10/23 Status: Ordered Start: 06-29-2023 [place] 325 mg-5 mg oral tablet 1 tab(s), Oral, q4hr for pain, 5 tab(s), Refill(s) 0 Start Date: 06/29/23 Status: Ordered Start: 05-22-2023 [place] 325 mg-5 mg oral tablet 1 tab(s), Oral, q6hr as needed for pain, 10 tab(s), Refill(s) 0, [facility] #[id number], 160, cm, 05/22/23 6:23:00 EST, Height/Length Dosing, [...] day(s), 12 tab(s), Refill(s) 0, [facility] #[id number], 157, cm, 03/30/23 15:42:00 EST, Height/Length Dosing, [...] 90 mcg/inh inhalation aerosol (20 sources) Start: take 1 puff(s) by inhalation every six hours Albuterol (Eqv-ProAir HFA) 90 mcg/inh inhalation aerosol puff(s), Inhalation, q6hr, Refill(s) 0 Start Date: 03/11/23 Status: Ordered amoxicillin 875 mg / clavulanate 125 mg oral tablet (1 source) Penicillin-class Antibacterial Start: End: Augmentin 875 mg-125 mg Tab 1 tab(s), Oral, q12hr for 10 day(s), 20 tab(s), Refill(s) 0, [facility] #[id number], 157, cm, 04/11/23 11:07:00 EST, Height/Length Dosing, 57.6, kg, 04/11/23 11:07:00 EST, Weight Dosing Start Date: 04/11/23 Stop Date: 04/21/23 Status: Ordered azithromycin 250 mg oral tablet (2 sources) Macrolide Antimicrobial Start: azithromycin 250 mg Tab 250 mg, Oral, As Directed, # 6 tab(s), Refills(s) 0, Pharmacy: [facility] #[id number], 160, cm, 07/19/23 9:32:00 EDT, Height/Length Dosing, 65.7, kg, 07/19/23 9:32:00 EDT, Weight Dosing Start Date: 07/19/23 Status: Ordered azithromycin 250 mg Tab 5-day Dose Pack (Z-Gabriel) (1 source) Start: End: azithromycin 250 mg Tab 5-day Dose Pack (Z-Gabriel) = 1 packet(s), Oral, As Directed, as directed on package labeling, X 5 day(s), # 6 tab(s), Refills(s) 0, Pharmacy: [facility] #[id number], 160, cm, 06/14/23 8:56:00 EST, Height/Length Dosing, [...] BID, # 60 tab(s), Refills(s) 0, Pharmacy: [facility] #[id number], 162, cm, 05/11/23 11:33:00 EST, Height/Length Dosing, 61.9, kg, 05/11/23 11:33:00 EST, Weight Dosing Start Date: 05/11/23 Status: Ordered Start: 05-03-2023 End: 05-07-2023 take 1 tablet by mouth three times daily as needed for muscle spasms baclofen 10 mg Tab 10 mg = 1 tab(s), Oral, TID, PRN Spasm, X 4 day(s), # 12 tab(s), Refills(s) 0, Pharmacy: [facility] #[id number], 162, cm, 05/03/23 12:24:00 EST, Height/Length Dosing, 62.7, kg, 05/03/23 12:24:00 EST, Weight Dosing Start Date: 05/03/23 Stop Date: 05/07/23 Status: Ordered Start: 03-11-2023 End: 03-16-2023 take 1 tablet by mouth twice daily baclofen 5 mg oral tablet 5 mg = 1 tab(s), Oral, BID, X 5 day(s), # 10 tab(s), Refills(s) 0, Pharmacy: [facility] #[id number], 157, cm, 03/11/23 17:06:00 EST, Height/Length Dosing, 57.6, kg, 03/11/23 17:06:00 EST, Weight Dosing Start Date: 03/11/23 Stop Date: 03/16/23 Status: Ordered Start: 01-15-2023 End: 03-07-2023 take 1 tablet by mouth at bedtime baclofen 5 mg oral tablet 5 mg = 1 tab(s), Oral, Bedtime, # 12 tab(s), Refills(s) 0, Pharmacy: [facility] #[id number], 157, cm, 01/24/23 9:27:00 EDT, Height/Length Dosing, [...] at 125 mL/hr, C ONTINUOUS, Starting on [facility] 07/19/21 at 0130 cefdinir 300 mg oral [...] # 21 cap(s), Refills(s) 0, Pharmacy: [facility] #[id number], 157, cm, 11/09/22 14:16:00 EDT, Height/Length Dosing, [...] day(s), # 14 tab(s), Refills(s) 0, Pharmacy: [facility]acy #[id number], 160, cm, 11/02/23 14:02:00 EDT, [...] day(s), # 21 tab(s), Refills(s) 0, Pharmacy: [facility]acy #[id number], 160, cm, 08/10/23 11:41:00 EDT, Height/Length Dosing, 66, kg, 08/10/23 11:41:00 EDT, Weight Dosing Start Date: 08/10/23 Stop Date: 08/17/23 Status: Ordered Start: 07-26-2023 End: 09-24-2023 take 1 capsule by mouth four times daily as needed Bentyl 10 mg Cap 10 mg = 1 cap(s), Oral, QID, PRN Other (see comment), For abdominal cramping, # 12 cap(s), Refills(s) 0, Pharmacy: [facility] #[id number], 160, cm, 07/26/23 9:44:00 EDT, Height/Length Dosing, 61.7, kg, 07/26/23 9:44:00 EDT, Weight Dosing Start Date: 07/26/23 Status: Ordered Start: 05-31-2023 End: 06-07-2023 take 1 tablet by mouth three times daily dicyclomine 20 mg Tab 20 mg = 1 tab(s), Oral, TID, X 7 day(s), # 21 tab(s), Refills(s) 0, Pharmacy: [facility] #[id number], 160, cm, 05/31/23 8:12:00 EST, Height/Length Dosing, 67, kg, 05/31/23 8:12:00 EST, Weight Dosing Start Date: 05/31/23 Stop Date: 06/07/23 Status: Ordered diflunisal 500 mg oral tablet (1 source) Nonsteroidal Anti-inflammatory Drug Start: 11-29-2023 take 1 tablet by mouth every twelve hours diflunisal 500 mg Tab 500 mg = 1 tab(s), Oral, q12hr, # 20 tab(s), Refills(s) 0, Pharmacy: [facility] #[id number], 160, cm, 11/29/23 6:47:00 EDT, Height/Length Dosing, 60.8, kg, 11/29/23 6:47:00 EDT, Weight Dosing Start Date: 11/29/23 Status: Ordered doxycycline monohydrate 100 mg oral [...] Daily, # 30 tab(s), Refills(s) 1, Pharmacy: [facility]/pharmacy #[id number], 162, cm, 05/11/23 11:33:00 EST, Height/Length Dosing, 61.9, kg, 05/11/23 11:33:00 EST, Weight Dosing Start Date: 05/11/23 Status: Ordered methocarbamol 750 mg oral tablet (1 source) Muscle Relaxant Start: 11-29-2023 End: 12-06-2023 take 1 tablet by mouth three times daily Robaxin-750 oral tablet 750 mg = 1 tab(s), Oral, TID, X 7 day(s), # 21 tab(s), Refills(s) 0, Pharmacy: [facility] #[id number], 160, cm, 11/29/23 6:47:00 EDT, Height/Length Dosing, 60.8, kg, 11/29/23 6:47:00 EDT, Weight Dosing Start Date: 11/29/23 Stop Date: 12/06/23 Status: Ordered methylPREDNISolone 4 mg oral tablet (1 source) Corticosteroid Start: 07-19-2023 End: 07-25-2023 Medrol 4 mg Tab = 1 packet(s), Oral, As Directed, as directed on package labeling, X 6 day(s), # 21 tab(s), Refills(s) 0, Pharmacy: [facility] #[id number], 160, cm, 07/19/23 9:32:00 EDT, Height/Length Dosing, [...] day(s), # 10 cap(s), Refills(s) 0, Pharmacy: [facility] #[id number], 160, cm, 09/17/23 4:33:00 EDT, [...] day(s), # 10 tab(s), Refills(s) 0, Pharmacy: [facility] #[id number], 160, cm, 09/20/23 12:38:00 EDT, [...] day(s), # 21 tab(s), Refills(s) 0, [id number], [facility], cm, 09/26/23 15:23:00 EDT, Height/Length Dosing, 65, kg, 09/26/23 15:23:00 EDT, Weight Dosing Start Date: 09/26/23 Stop Date: 10/03/23 Status: Ordered Start: 09-24-2023 End: 09-27-2023 take 1 tablet by mouth three times daily Pyridium 100 mg Tab 100 mg = 1 tab(s), Oral, TID, X 3 day(s), # 9 tab(s), Refills(s) 0, [id number], 160, cm, 09/24/23 15:37:00 EDT, Height/Length Dosing, 65, kg, 09/24/23 15:37:00 EDT, Weight Dosing Start Date: 09/24/23 Stop Date: 09/27/23 Status: Ordered Start: 09-17-2023 End: 09-20-2023 take 1 tablet by mouth three times daily Pyridium 200 mg Tab 200 mg = 1 tab(s), Oral, TID, X 3 day(s), # 9 tab(s), Refills(s) 0, [id number], 160, cm, 09/17/23 4:33:00 EDT, Height/Length Dosing, 65.4, kg, 09/17/23 4:33:00 EDT, Weight Dosing Start Date: 09/17/23 Stop Date: 09/20/23 Status: Ordered Start: 11-09-2022 End: 11-11-2022 take 1 tablet by mouth three times daily Pyridium 200 mg Tab 200 mg = 1 tab(s), Oral, TID, X 2 day(s), # 6 tab(s), Refills(s) 0, [facility][id number], 157, cm, 11/09/22 14:16:00 EDT, Height/Length Dosing, 62.9, kg, 11/09/22 14:16:00 EDT, Weight Dosing Start Date: 11/09/22 Stop Date: 11/11/22 Status: Ordered polyethylene glycol 3350 53191 mg powder for oral solution (1 source) Osmotic Laxative Start: 03-24-2023 End: 03-29-2023 polyethylene glycol (Glycolax, Miralax) 17 gram packet Indications: Nasal septal deviation Take 17 g by mouth once daily for 5 doses. 5 packet 0 03/24/2023 03/29/2023 Active predniSONE 50 mg oral tablet (8 sources) Start: 11-26-2023 End: 12-03-2023 take 1 tablet by mouth once daily predniSONE 50 mg Tab 50 mg = 1 tab(s), Oral, Daily, X 7 day(s), # 7 tab(s), Refills(s) 0, Pharmacy: [facility] #[id number], 160, cm, 11/26/23 10:31:00 EDT, Height/Length Dosing, 62, kg, 11/26/23 10:31:00 EDT, Weight Dosing Start Date: 11/26/23 Stop Date: 12/03/23 Status: Ordered Start: 10-31-2023 End: 11-05-2023 take 1 tablet by mouth once daily predniSONE 50 mg Tab 50 mg = 1 tab(s), Oral, Daily, X 5 day(s), # 5 tab(s), Refills(s) 0, [id number], 160, cm, 10/31/23 12:45:00 EDT, Height/Length Dosing, 63.2, kg, 10/31/23 12:45:00 EDT, Weight Dosing Start Date: 10/31/23 Stop Date: 11/05/23 Status: Ordered Start: 06-26-2022 End: 07-03-2022 take 3 tablets by mouth once daily predniSONE 20 mg Tab 60 mg = 3 tab(s), Oral, Daily, X 7 day(s), # 21 tab(s), Refills(s) 0, Pharmacy: [facility] #[id number], 157, cm, 06/26/22 14:20:00 EST, Height/Length Dosing, [...] (5 sources) Start: 03-24-2023 sodium chlorid e ([place] Nasal) 0.65 % nasal spray Indications: Nasal [...] day(s), # 9 tab(s), Refills(s) 0, Pharmacy: [facility] #[id number], 160, cm, 11/24/23 11:59:00 EDT, Height/Length Dosing, 62, kg, 11/24/23 11:59:00 EDT, Weight Dosing Start Date: 11/24/23 Stop Date: 11/27/23 Status: Ordered Start: 10-02-2023 End: 10-28-2023 take 1 tablet by mouth every six hours as needed for pain traMADOL 50 mg Tab 50 mg = 1 tab(s), Oral, q6hr, PRN as needed for pain, # 7 tab(s), Refills(s) 0, Pharmacy: [facility] #[id number], 160, cm, 10/02/23 6:32:00 EDT, Height/Length Dosing, 67.7, kg, 10/02/23 6:32:00 EDT, Weight Dosing Start Date: 10/02/23 Status: Ordered Start: 09-24-2023 End: 09-27-2023 take 1 tablet by mouth every six hours as needed for pain traMADOL 50 mg Tab 50 mg = 1 tab(s), Oral, q6hr, PRN for pain, X 3 day(s), # 12 tab(s), Refills(s) 0, Pharmacy: [facility] #[id number], 160, cm, 09/24/23 15:37:00 EDT, Height/Length Dosing, 65, kg, 09/24/23 15:37:00 EDT, Weight Dosing Start Date: 09/24/23 Stop Date: 09/27/23 Status: Ordered Start: 09-20-2023 End: 09-23-2023 take 1 tablet by mouth every six hours Ultram 50 mg Tab 50 mg = 1 tab(s), Oral, q6hr, X 3 day(s), # 12 tab(s), Refills(s) 0, Pharmacy: [facility] #[id number], 160, cm, 09/20/23 12:38:00 EDT, Height/Length Dosing, 65.1, kg, 09/20/23 12:38:00 EDT, Weight Dosing Start Date: 09/20/23 Stop Date: 09/23/23 Status: Ordered Start: 09-14-2023 End: 09-19-2023 take 1 tablet by mouth every six hours as needed for pain traMADOL 50 mg Tab 50 mg = 1 tab(s), Oral, q6hr, PRN for pain, X 2 day(s), # 7 tab(s), Refills(s) 0, Pharmacy: [facility] #[id number], 160, cm, 09/17/23 4:33:00 EDT, Height/Length Dosing, 65.4, kg, 09/17/23 4:33:00 EDT, Weight Dosing Start Date: 09/17/23 Stop Date: 09/19/23 Status: Ordered Start: 08-05-2023 End: 08-20-2023 take 1 tablet by mouth every eight hours as needed for pain traMADOL 50 mg Tab 50 mg = 1 tab(s), Oral, q8hr, PRN as needed for pain, # 7 tab(s), Refills(s) 0, Pharmacy: [facility] #[id number], 160, cm, 08/14/23 14:48:00 EDT, [...] day(s), # 10 tab(s), Refills(s) 0, [facility][id number], 160, cm, 08/18/23 10:31:00 EDT, Height/Length Dosing, 64, kg, 08/18/23 10:31:00 EDT, Weight Dosing Start Date: 08/18/23 Stop Date: 08/21/23 Status: Ordered Start: 07-26-2023 End: 07-29-2023 take 1 tablet by mouth every twelve hours as needed for pain traMADOL 50 mg Tab 50 mg = 1 tab(s), Oral, q12hr, PRN for pain, X 3 day(s), # 6 tab(s), Refills(s) 0, Pharmacy: [facility] #[id number], 160, cm, 07/26/23 9:44:00 EDT, Height/Length Dosing, 61.7, kg, 07/26/23 9:44:00 EDT, Weight Dosing Start Date: 07/26/23 Stop Date: 07/29/23 Status: Ordered Start: 07-19-2023 End: 07-22-2023 take 1 tablet by mouth every six hours as needed for pain traMADOL 50 mg Tab 50 mg = 1 tab(s), Oral, q6hr, PRN for pain, X 3 day(s), # 12 tab(s), Refills(s) 0, [facility][id number], 160, cm, 07/19/23 9:32:00 EDT, Height/Length Dosing, 65.7, kg, 07/19/23 9:32:00 EDT, Weight Dosing Start Date: 07/19/23 Stop Date: 07/22/23 Status: Ordered Zofran ODT 4 mg Tab-Dis (20 sources) Start: 10-19-2023 take 1 tablet by mouth every eight hours as needed for nausea Zofran ODT 4 mg Tab-Dis 4 mg = 1 tab(s), Oral, q8hr, PRN Nausea/Vomiting, # 20 tab(s), Refills(s) 0, Pharmacy: [facility] #[id number], 160, cm, 10/19/23 12:58:00 EDT, Height/Length Dosing, 65, kg, 10/19/23 12:58:00 EDT, Weight Dosing Start Date: 10/19/23 Status: Ordered Start: 07-26-2023 take 1 tablet by amber th every eight hours as needed for nausea Zofran ODT 4 mg Tab-Dis 4 mg = 1 tab(s), Oral, q8hr, PRN Nausea/Vomiting, # 16 tab(s), Refills(s) 0, Pharmacy: [facility] #[id number], 160, cm, 07/26/23 9:44:00 EDT, Height/Length Dosing, 61.7, kg, 07/26/23 9:44:00 EDT, Weight Dosing Start Date: 07/26/23 Status: Ordered Start: 05-31-2023 take 1 tablet by amber th three times daily Zofran ODT 4 mg Tab-Dis 4 mg = 1 tab(s), Oral, TID, # 15 tab(s), Refills(s) 0, Pharmacy: [facility] #[id number], 160, cm, 05/31/23 8:12:00 EST, Height/Length Dosing, [...] 1 dose, On Yadira 07/19/21 at 1100 Start: 07-19-2021 End: 07-19-2021 inject [...] day, # 14 tab(s), Refills(s) 0, Pharmacy: [facility] #[id number], 160, cm, 11/24/23 11:59:00 EDT, Height/Length Dosing, 62, kg, 11/24/23 11:59:00 EDT, Weight Dosing Start Date: 11/24/23 Status: Ordered Start: 06-14-2023 End: 09-04-2023 take 1 tablet by mouth twice daily Naprosyn 500 mg Tab 500 mg = 1 tab(s), Oral, BID, # 20 tab(s), Refills(s) 0, Pharmacy: [facility] #[id number], 160, cm, 06/14/23 8:56:00 EST, Height/Length Dosing, 65, kg, 06/14/23 8:56:00 EST, Weight Dosing Start Date: 06/14/23 Status: Ordered Start: 05-28-2023 naproxen 375 m g Tab Refills(s) 0 Start Date: 05/28/23 Status: Ordered Start: 04-11-2023 take 1 tablet by amber th every twelve hours naproxen 375 mg Tab 375 mg = 1 tab(s), Oral, q12hr, # 14 tab(s), Refills(s) 0, Pharmacy: [facility] #[id number], 157, cm, 04/11/23 11:07:00 EST, Height/Length Dosing, [...] on Yadira 07/19/21 at 0900, Until Discontinued sertraline 100 mg [...] Onset: 02-06-2023 Episodic Other nervous system disorders (12 sources) Chronic pain; Translations: [Other chronic pain] [...] unspecified] Onset: 06-26-2022 Episodic Sprains and strains (2 sources) Lower back injury; Translations: [Strain of muscle, [...] 2023 ED Clinical Summary ED Clinical Summary [address] [address] ED Clinical Summary Person Information Name: ALEJANDRA REAL [place] Age: 28 Years : 1995 Sex: Female Language: [place] Citizen PCP: Lorri Ireland CNP Marital Status: Single Phone: [phone] Visit Id: Visit Reason: Medical problem - major; Pelvic pain; left side abd pain Speciality: Acuity: 2 Enc Type: Emergency Med Service: Emergency Arrival: 11/29/2023 06:37:53 Discharge: 11/29/2023 07:25:47 LOS: 000 00:48 Checkin: 11/29/2023 06:37:53 Checkout: 11/29/2023 07:25:47 Dispo Type: Home (Routine DC) EVENTS: Event Name Event Status Request Date/Time Start Date/Time Complete Date/Time Arrive Complete 11/29/2023 06:37:53 11/29/2023 06:37:53 11/29/2023 06:37:53 Document Home Meds Request 11/29/2023 06:37:53 Triage Complete 11/29/2023 06:37:53 11/29/2023 06:47:52 11/29/2023 06:47:52 Registration Complete 11/29/2023 06:40:08 11/29/2023 06:40:08 11/29/2023 06:40:08 Reg Complete Request 11/29/2023 06:40:08 Reg Bed Request Complete 11/29/2023 06:40:08 11/29/2023 06:40:08 11/29/2023 06:40:08 Bed Assign Complete 11/29/2023 06:49:05 11/29/2023 06:49:05 11/29/2023 06:49:05 Dr Exam Complete 11/29/2023 06:49:05 11/29/2023 07:02:37 11/29/2023 07:02:37 RN Exam Complete 11/29/2023 06:49:05 11/29/2023 06:55:29 11/29/2023 06:55:29 Registration Request 11/29/2023 07:02:37 Discharge Complete 11/29/2023 07:19:44 11/29/2023 07:25:53 11/29/2023 07:25:53 Transfer Complete 11/29/2023 07:25:53 11/29/2023 07:25:53 11/29/2023 07:25:53 ADDRESS: [address] [facility] [id number] PHYS DOC NOTES: MEDICAL INFORMATION: Prescriptions Given: New Medications [id number], [address], [place] [phone], [phone] diflunisal (diflunisal 500 mg Tab) 1 Tablets By Mouth every 12 hours. Refills: 0. methocarbamol (Robaxin-750 oral tablet) 1 Tablets By Mouth 3 times a day for 7 Days. Refills: 0. Medications to Continue with No Changes Other Medications dicyclomine (Bentyl 10 mg Cap) 1 Capsules By Mouth 4 times a day as needed Other (see comment). For abdominal cramping. Refills: 0. Misc Prescription (BACLOFEN 10 MG TABLET) 0. multivitamin with iron (Iron 100 Plus) By Mouth every day. naproxen (naproxen 500 mg Tab) 1 Tablets By Mouth 2 times a day. Take one tab by mouth two times a day. Refills: 0. ondansetron (Zofran ODT 4 mg Tab-Dis) 1 Tablets By Mouth every 8 hours as needed Nausea/Vomiting. Refills: 0. predniSONE (predniSONE 50 mg Tab) 1 Tablets By Mouth every day for 7 Days. Refills: 0. PATIENT EDUCATION INFORMATION: Instructions: Follow up: With: Address: When: Cristóbal Granados [address] [place] [address] Business (1) In 3 days 12/02/2023 With: Address: When: Lorri Ireland [address] [place] [address], [address] [place] [address] Business (1) In 3 days DIAGNOSIS: Chronic pain Normal [facility] ED Note-Physicianon 11-29-19 ED Note-Physician ED Note-Physician Basic Information Time Seen: Justo Arias DO 11/29/2023 07:02 Chief Complaint (L) Pelvic pain intermittently for past week. Hx of pelvic congestion. No nausea, vomiting or diarrhea. History of Present Illness 28 female well-known to the emergency room comes in with chronic pelvic pain. Patient states she has history of pelvic congestion syndrome she just saw pain management on has another appointment this coming . She is scheduled for upcoming surgery with Dr. Gooden for this pelvic congestion syndrome. Patient has been here numerous times for pain control in the past and I did review some of her visits. She states over the last 24 to 48 hours she has had a flareup of her chronic pain. No other aggravating or relieving factors no other associated symptoms no other prior treatments or complaints. Family: Reviewed and noncontributory Social: lives at home Review of systems negative unless otherwise specified in the HPI. Physical Exam Vitals & Measurements T: 36.9 ?C(Oral) HR: 102(Peripheral) RR: 20 BP: 105/66 SpO2: 100% HT: 160 cm WT: 60.8 kg BMI: 23.75 General: The patient appears well and in [...] Psychiatric: Cooperative and appropriate Medical Decision Making I did review [facility] report patient is treated here with Dolobid and Robaxin follow-up with pain management the outpatient setting Assessment/Plan Chronic pain (G89.29: Other chronic pain) Orders: diflunisal, 500 mg = 1 tab(s), Oral, q12hr, # 20 tab(s), Refills(s) 0, Pharmacy: [facility] #[id number], 160, cm, 11/29/23 6:47:00 EDT, Height/Length Dosing, 60.8, kg, 11/29/23 6:47:00 EDT, Weight Dosing methocarbamol, 750 mg = 1 tab(s), Oral, TID, X 7 day(s), # 21 tab(s), Refills(s) 0, Pharmacy: [id number], 160, cm, 11/29/23 6:47:00 EDT, Height/Length Dosing, 60.8, kg, 11/29/23 6:47:00 EDT, Weight Dosing Disposition Plan Discharge Prescription List Prescriptions diflunisal 500 mg Tab, 500 mg= 1 tab(s), Oral, q12hr Robaxin-750 oral tablet, 750 mg= 1 tab(s), Oral, TID Follow-up With When Contact Information Cristóbal Granados In 3 days 12/02/2023 EDT [address] [place] [address]- Business (1) Additional Instructions: Lorri Ireland In 3 days [address] [facility] [address] [place] [address]- Business (1) Additional Instructions: Problem List/Past Medical [...] 10 mg= 1 cap(s), Oral, QID, PRN diflunisal 500 mg Tab, 500 mg= 1 tab(s), Oral, q12hr Iron 100 Plus, Oral, Daily naproxen 500 mg Tab, 500 mg= 1 tab(s), Oral, BID predniSONE 50 mg Tab, 50 mg= 1 tab(s), Oral, Daily Robaxin-750 oral tablet, 750 mg= 1 tab(s), Oral, TID Zofran ODT 4 mg Tab-Dis, 4 mg= [...] Concern for family members at home: No. (more content not included)... Normal [facility] Comment on above: Result Comment: Elec tronically Signed By: Justo Arias DO\.br\Date and Time Signed: 11/29/23 07:21 EDT ED Patient Education Noteon 11-29-2023 ED Patient Education Note ED Patient Education Note Normal [facility] ED Patient Summaryon 024 ED Patient Summary ED Patient Summary [address] [address] Patient Discharge Instructions Person Information Name: ALEJANDRA REAL Age: 28 Years Arrival Date: 11/29/2023 06:37:53 Discharge Diagnosis: Chronic pain Primary Care Physician: Lorri Ireland CNP Provider Information Primary Provider: Justo Arias DO Advanced Senior Manufacturing Engineer:None The exam and treatment you received in the Emergency Department were for an urgent problem and are not intended as complete care. It is important that you follow up with a doctor, nurse practitioner, or physician?s workers compensation claims assistant for ongoing care. If your symptoms [...] Follow-up Instructions: With: Address: When: Cristóbal Granados [address] [place] [id number] Business (1) In 3 days 12/02/2023 With: Address: When: Lorri [place] [address] [facility], [address] [place] [address] Business (1) In 3 days In the event that this physician does not participate in your insurance network, please consult with your insurance company to find a nearby participating provider. Patient Education Materials: A MESSAGE TO ALL PATIENTS REGARDING OPIOIDS PRESCRIPTION OPIOIDS: WHAT YOU NEED TO KNOW Prescription opioids can be used to help relieve hmlbfkme-oi-pzpbli pain and are often prescribed following a [...] be struggling with addiction, tell your health care professi (more content not included)... Normal [facility] ED Note-Physicianon 11-28-19 24 ED Note-Physician ED Note-Physician Basic Information Time Seen: Hank LUKE, Ulisses Lujan. 11/26/2023 10:30 Chief Complaint Pt presents to ED with complaints of right hand pain x1 week. History of Present Illness 28-year-old female reports to the emergency department with chief complaint of right hand pain. 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 Has been having worsening pain. She states that has taken ibuprofen and Tylenol without any relief. Reports that she is right-handed. She denies any other injury. She reports that she has no known allergies. Denies any fevers or chills. Review of Systems No other aggravating or relieving factors no other associated symptoms no other prior treatments or complaints. Family: Reviewed and noncontributory Social: lives at home Review of systems negative unless otherwise specified in the HPI. Physical Exam Vitals & Measurements T: 36.7 ?C(Oral) HR: 81(Peripheral) RR: 18 BP: 136/88 SpO2: 100% HT: 160 cm WT: 62 kg BMI: 24.22 General: The patient appears well and in no apparent distress. Patient is resting comfortably on bed. Skin: Warm, dry, no pallor noted. Head: Normocephalic, atraumatic Neck: No JVD Eye: PERRLA, EOMI ENT: Moist mucus membranes Cardiovascular: Regular rate normal peripheral perfusion. Radial pulses +2 bilaterally. Respiratory: No respiratory distress no accessory muscle use no obvious audible wheezing Chest Wall: no deformity Musculoskeletal: Limited range of motion of right wrist due to pain. Positive Lexus test. No obvious deformity GI: No obvious distention Neurological: A&O moves all extremities equal strength and symmetry Psychiatric: Cooperative and appropriate Medical Decision Making MEDICAL DECISION MAKING Number and Complexity of Problems Differential Diagnosis: [] [facility] Data External documents reviewed: [] My EKG interpretation: [] My CT interpretation: [] My X-ray interpretation: Reviewed My Ultrasound interpretation: [] Decision rules/scores evaluated: [] Discussed with: [] Treatment and Disposition ED Course: 48-year-old female reports emerged department with chief complaint of right wrist pain. Reports that has been going on for last couple days. States that she does work using drills at work, and having more pain. Exam the patient is positive for likely tendinitis, no swelling. Tenderness over the distal radius region. No obvious deformity. Otherwise neurovascular intact. Due to concerns, we did do an x-ray. X-ray negative. Discussed likely tendinitis. Patient prescribed steroids for symptomatic relief. Discussed Tylenol and ibuprofen use at home. Discussed return precautions. Patient placed in a wrist splint for comfort. Follow-up with your primary care provider in 3 to 5 days. If symptoms worsen, do not improve, or new symptoms arise please report back to emergency department for further evaluation. The patient was understanding and agreeable to plan moving forward. Shared decision making: [] Code status: [] Assessment/Plan Right wrist sprain (S63.501A: Unspecified sprain of right wrist, initial encounter) Orders: predniSONE, 50 mg = 1 tab(s), Oral, Daily, X 7 day(s), # 7 tab(s), Refills(s) 0, Pharmacy: [facility]/pharmacy #[id number], 160, cm, 11/26/23 10:31:00 EDT, Height/Length Dosing, 62, kg, 11/26/23 10:31:00 EDT, Weight Dosing Splint Application Wrist XR Wrist 3+ Views Right Disposition Plan Patient Discharge Condition Stable Discharge Disposition to home Discharge Prescription List Prescriptions predniSONE 50 mg Tab, 50 mg= 1 tab(s), Oral, Daily Follow-up With When Contact Information Lorri Ireland In 3 days 11/29/2023 EDT [address] [facility], [address] [place] [id number] Business (1) Additional Instructions: Call Dr for diagnosis based follow up Patient Education Tendinitis Wrist Pain, Adult, Ockg-oj-Bqps Attestation Patient seen and evaluated by the physician workers compensation claims assistant. Attending physician was present in the emergency department and supervised care. This visit was performed by both the physician and an APC. I performed all aspects of the MDM as documented. This report was transcribed using voice recognition software. Every effort was made to ensure accuracy, however, inadvertently computerized layer out mistakes may be present. Appropriate healthcare PPE [...] discussed with APC. Problem List/Past Medical History (more content not included)... Normal [facility] Comment on above: Result Comment: Elec tronically Signed By: Ulisses Mckinney PA-C\.br\Date and Time Signed: 11/26/23 12:24 EDT\.br\Electronically Co-Signed By: Justo Arias DO\.br\Date and Time Co-Signed: 11/28/23 07:48 EDT .Interpretation:on 4 HCV Ab IA Ql Comment Invalid Interpretation Code [facility] Comment on above: Result Comment: Not infected with HCV unless early or acute infection is suspected (which may be delayed in an immunocompromised individual), or other evidence exists to indicate HCV infection. Performed at: [address] [id number] PhD Harinder Fiore Performed By: #### 2 [id number] #### [facility] [address] [id number] Acute Hepatitis A B C Panelo n 11-26-2023 HAV IgM IA Ql Negative Invalid Interpretation Code Negative [facility] Comment on above: Performed By: #### 3 [id number] #### [facility] [address] [place] [id number] HBV core IgM IA Ql Negative Invalid Interpretation Code Negative [facility] Comment on above: Performed By: #### 3 [id number] #### [facility] [address] [place] [address] HBV surface Ag IA Ql Negative Invalid Interpretation Code Negative [facility] Comment on above: Performed By: #### 3 [id number] #### [facility] [address] [place], [place] [id number] HCV IgG IA Ql Non-Reactive Invalid Interpretation Code Non Reactive [facility] Comment on above: Result Comment: Perf ormed at: [facility] [address] [id number] PhD Harinder Fiore Performed By: #### 3 [id number] #### [facility] [address] [place] [address] ED Clinical Summaryon 2023 ED Clinical Summary ED Clinical Summary [address] [address] ED Clinical Summary Person Information Name: ALEJANDRA REAL [facility] Age: 28 Years : 1995 Sex: Female Language: [place] Citizen PCP: Lorri Ireland CNP Marital Status: Single Phone: [phone] Visit Id: Visit Reason: Hand pain-swelling; RIGHT HAND AND WRIST PAIN Speciality: Acuity: 4 Enc Type: Emergency Med Service: Emergency Arrival: 11/26/2023 10:19:14 Discharge: 11/26/2023 11:47:13 LOS: 000 01:28 Checkin: 11/26/2023 10:19:14 Checkout: 11/26/2023 11:47:13 Dispo Type: Home (Routine DC) EVENTS: Event Name Event Status Request Date/Time Start Date/Time Complete Date/Time Arrive Complete 11/26/2023 10:19:14 11/26/2023 10:19:14 11/26/2023 10:19:14 Document Home Meds Request 11/26/2023 10:19:14 Triage Complete 11/26/2023 10:19:14 11/26/2023 10:31:36 11/26/2023 10:31:36 Registration Complete 11/26/2023 10:21:23 11/26/2023 10:21:23 11/26/2023 10:21:23 Reg Complete Request 11/26/2023 10:21:23 Reg Bed Request Complete 11/26/2023 10:21:23 11/26/2023 10:21:23 11/26/2023 10:21:23 Bed Assign Complete 11/26/2023 10:30:00 11/26/2023 10:30:00 11/26/2023 10:30:00 Dr Exam Complete 11/26/2023 10:30:00 11/26/2023 10:30:51 11/26/2023 10:30:51 RN Exam Complete 11/26/2023 10:30:00 11/26/2023 10:46:59 11/26/2023 10:46:59 Registration Request 11/26/2023 10:30:51 Dr Exam Complete 11/26/2023 10:32:39 11/26/2023 10:32:39 11/26/2023 10:32:39 X-Ray Complete 11/26/2023 10:45:29 11/26/2023 10:46:16 11/26/2023 10:55:35 Wet Read Complete 11/26/2023 10:55:35 11/26/2023 10:58:58 11/26/2023 10:58:58 Discharge Complete 11/26/2023 11:25:25 11/26/2023 11:47:19 11/26/2023 11:47:19 Transfer Complete 11/26/2023 11:47:19 11/26/2023 11:47:19 11/26/2023 11:47:19 ADDRESS: [address] [facility] [id number] PHYS DOC NOTES: MEDICAL INFORMATION: Prescriptions Given: New Medications [id number], [address] [place], [place] [id number], [phone] predniSONE (predniSONE 50 mg Tab) 1 Tablets By Mouth every day for 7 Days. Refills: 0. Medications to Continue with No Changes Other Medications dicyclomine (Bentyl 10 mg Cap) 1 Capsules By Mouth 4 times a day as needed Other (see comment). For abdominal cramping. Refills: 0. Misc Prescription (BACLOFEN 10 MG TABLET) 0. multivitamin with iron (Iron 100 Plus) By Mouth every day. naproxen (naproxen 500 mg Tab) 1 Tablets By Mouth 2 times a day. Take one tab by mouth two times a day. Refills: 0. ondansetron (Zofran ODT 4 mg Tab-Dis) 1 Tablets By Mouth every 8 hours as needed Nausea/Vomiting. Refills: 0. tramadol (Ultram 50 mg Tab) 1 Tablets By Mouth every 8 hours for 3 Days. Refills: 0. PATIENT EDUCATION INFORMATION: Instructions: Tendinitis; Wrist Pain, Adult, Ipsg-rx-Yxld Follow up: With: Address: Luis: Lorri Ireland [address] [place] [address], [facility], [address] [place] [address] Business (1) In 3 days 11/29/2023 Comments: Call Dr for diagnosis based follow up DIAGNOSIS: Right wrist sprain Normal [facility] ED Patient Summaryon 024 ED Patient Summary ED Patient Summary [address] [address] Patient Discharge Instructions Person Information Name: ALEJANDRA REAL Age: 28 Years Arrival Date: 11/26/2023 10:19:14 Discharge Diagnosis: Right wrist sprain Primary Care Physician: Lorri Ireland CNP Provider Information Primary Provider: Justo Arias DO Advanced Senior Manufacturing Engineer:None The exam and treatment you received in the Emergency Department were for an urgent problem and are not intended as complete care. It is important that you follow up with a doctor, nurse practitioner, or physician?s workers compensation claims assistant for ongoing care. If your symptoms [...] Follow-up Instructions: With: Address: When: Lorri Beka [address] [place] [address], [address] [place] [id number] [employer] In 3 days 11/29/2023 Comments: Call Dr for diagnosis based follow up In the event that this physician does not participate in your insurance network, please consult with your insurance company to find a nearby participating provider. Patient Education Materials: Tendinitis; Wrist Pain, Adult, Pgmv-kr-Oavg A MESSAGE TO ALL PATIENTS REGARDING OPIOIDS PRESCRIPTION OPIOIDS: WHAT YOU NEED TO KNOW Prescription opioids can be used to help relieve mqxpfmms-yc-lvuhko pain and are often prescribed following a [...] be struggling with addiction, tell your health long term care pharmacist and a (more content not included)... Normal [facility] HIV Screen 4th Generation wR fxon 11-26-2023 HIV 1+2 Ab+HIV1 p24 Ag IA Ql Non-Reactive Invalid Interpretation Code Non Reactive [facility] Comment on above: Order Comment: in la b Result Comment: HIV- 1/HIV-2 antibodies and HIV-1 p24 antigen were NOT detected. There is no laboratory evidence of HIV infection. HIV Negative Performed at: [facility] [id number] PhD Harinder Fiore Performed By: #### 9 [id number] #### [facility] [address] [place] [address] RPR with Conf Rfxon 11-26-19 24 Reagin Ab RPR Ql (S) Non-Reactive Invalid Interpretation Code Non Reactive [facility] Comment on above: Result Comment: Perf ormed at: [facility] [address] [id number] PhD Leialenayolande Fiore Performed By: #### 1 [id number] #### [facility] [address] [place] [address] XR Wrist 3+ Views Righton XR Wrist 3+ Views Right Exam Date/Time: 11/26/2023 10:55 EDT Reason for Exam: Pain, Non Traumatic Report IMPRESSION: NO ACUTE OSSEOUS ABNORMALITY. EXAM: XR Wrist 3+ Views Right HISTORY: Wrist pain COMPARISON: Radiographs 11/19/2022 TECHNIQUE: AP, lateral, oblique and scaphoid views of the wrist obtained. FINDINGS: No acute fracture or dislocation. Carpal and radiocarpal alignment is satisfactory. Soft tissues are within normal limits. Ordering Provider: Ulisses Mckinney FINAL REPORT Dictated: 11/26/2023 11:30 am Geovany Mcknight DO Signed (Electronic Signature): 11/26/2023 11:30 am Signed by: Geovany Mcknight DO Transcribed by: FAHAD Technologist: BEN Technical Comments Radiation Dose: Ka,r in mGy = . DAP = . Normal [facility] ED Clinical Summaryon 2023 ED Clinical Summary ED Clinical Summary [address] [address] ED Clinical Summary Person Information Name: ALEJANDRA REAL [place] Age: 28 Years : 1995 Sex: Female Language: [place] Citizen PCP: Lorri Ireland CNP Marital Status: Single Phone: [phone] Visit Id: Visit Reason: Nausea; Chronic pain; [...] 11/24/2023 13:14:00 11/24/2023 13:14:00 11/24/2023 13:14:00 ADDRESS: [facility] [address] [facility] [id number] PHYS DOC NOTES: MEDICAL INFORMATION: Prescriptions Given: New Medications [id number], [address] [place], [place] [id number], [phone] naproxen (naproxen 500 mg Tab) 1 Tablets [...] Follow up: With: Address: When: Lorri Ireland [address] [place] [address], [address] [place] [address] Business (1) In 3 days DIAGNOSIS: Chronic pelvic pain in female; Other chronic pain Normal [facility] ED Note-Physicianon 11-24-19 ED Note-Physician ED Note-Physician Basic Information Time Seen: Hugo Justo 11/24/2023 11:59 Chief Complaint Pt was at [...] 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 Therefore she will be prescribed the tramadol and given a note for work and given naproxen as well follow-up in the outpatient setting. I, Dr. Arias had a dzjd-ou-nkbn interaction with the patient. I personally performed [...] day(s), # 9 tab(s), Refills(s) 0, Pharmacy: [facility]/pharmacy #[id number], 160, cm, 11/24/23 11:59:00 EDT, Height/Length Dosing, 62, kg, 11/24/23 11:59:00 EDT, Weight Dosing Orders: naproxen, 500 mg = 1 tab(s), Oral, BID, Take one tab by mouth two times a day, # 14 tab(s), Refills(s) 0, Pharmacy: [facility]/pharmacy #[id number], 160, cm, 11/24/23 11:59:00 EDT, Height/Length Dosing, 62, kg, 11/24/23 11:59:00 EDT, Weight Dosing Disposition Plan Discharge Prescription List Prescriptions naproxen 500 mg Tab, 500 mg= 1 tab(s), Oral, BID Ultram 50 mg Tab, 50 mg= 1 tab(s), Oral, q8hr Follow-up With When Contact Information Lorri Ireland In 3 days [address] [facility], [address] Business (1) Additional Instructions: Patient Education Chronic [...] in hous (more content not included)... Normal [facility] Comment on above: Result Comment: Elec tronically Signed By: Justo Arias DO\.br\Date and Time Signed: 11/24/23 12:57 EDT ED Patient Summaryon 024 ED Patient Summary ED Patient Summary [facility] [address] [place], [place] [id number] Patient Discharge Instructions Person Information Name: ALEJANDRA REAL Age: 28 Years Arrival Date: 11/24/2023 11:46:11 Discharge Diagnosis: Chronic pelvic pain in female; Other chronic pain Primary Care Physician: Lorri Ireland CNP Provider Information Primary Provider: Justo Arias DO Advanced Senior Manufacturing Engineer:None The exam and treatment you received in the Emergency Department were for an urgent problem and are not intended as complete care. It is important that you follow up with a doctor, nurse practitioner, or physician?s workers compensation claims assistant for ongoing care. If your symptoms [...] Instructions: With: Address: When: Lorri Ireland [address] [facility] , [address] [place], [place] [id number] Business (1) In 3 days In the event that this physician does not participate in your insurance network, please consult with your insurance company to find a nearby participating provider. Patient Education Materials: Chronic Pain, Adult A MESSAGE TO ALL PATIENTS REGARDING OPIOIDS PRESCRIPTION OPIOIDS: WHAT YOU NEED TO KNOW Prescription opioids can be used to help relieve poltxtnm-wx-cudgtg pain and are often prescribed following a [...] be struggling with addiction, tell your health long term care pharmacist and ask for guidance or call [facility]S National Helpline at (more content not included)... Normal [facility] Office/Cl inic Noteon 11-24-2023 [...] Asthma BMI 25.0-25.9,adult Dysuria History of COVID-19 (04-24-2020) Lower abdominal pain Numbness and tingling of [...] to go (more content not included)... Normal [facility] Comment on above: Result Comment: Elec tronically [...] 300 Contrast amount in ml's: 100 Normal [facility] ED Clinical Summaryon 2023 ED Clinical Summary ED Clinical Summary [place] [id number] ED Clinical Summary Person Information Name: ALEJANDRA REAL [facility] Age: 28 Years : 1995 Sex: Female Language: [place] Citizen PCP: Lorri Ireland CNP Marital Status: Single Phone: [phone] Visit Id: Visit Reason: Nausea; Abdominal pain; [...] 11/05/2023 09:01:54 11/05/2023 09:01:54 11/05/2023 09:01:54 ADDRESS: [address] [place] [address] [place] [phone] [facility] DOC NOTES: MEDICAL INFORMATION: Prescriptions Given: [...] Follow up: With: Address: When: Lorri Ireland [address] [place] [address], [address] [place] [id number] [employer] (1) In 3 days 11/08/2023 Comments: Call [...] female pelvic pain; Other chronic pain Normal [facility] ED Note-Physicianon 11-05-19 ED Note-Physician ED Note-Physician [...] is scheduled to be seen by Dr. Bon for possible surgery. Patient has had no [...] patient was discharged home. Darren Lomax DO, [facility] Assessment/Plan 1. Left lower quadrant abdominal pain [...] data a (more content not included)... Normal [facility] Comment on above: Result Comment: Elec tronically Signed By: Guille Will MD\.br\Date and Time Signed: 11/10/23 07:48 EDT\.br\Electronically Co-Signed By: Darren Lomax DO\.br\Date and Time Co-Signed: 11/05/23 09:11 EDT ED Patient Summaryon 024 ED Patient Summary ED Patient Summary [address] [address] Patient Discharge Instructions Person Information Name: ALEJANDRA REAL Age: 28 Years Arrival Date: 11/04/2023 23:45:14 Discharge Diagnosis: 1:Left lower quadrant abdominal pain; Chronic female pelvic pain; Other chronic pain Primary Care Physician: Lorri Ireland CNP Provider Information Primary Provider: Guille Will MD Advanced Senior Manufacturing Engineer:None The exam and treatment you received in the Emergency Department were for an urgent problem and are not intended as complete care. It is important that you follow up with a doctor, nurse practitioner, or physician?s workers compensation claims assistant for ongoing care. If your symptoms [...] Instructions: With: Address: When: Lorri Ireland [address] [facility] [address], [address] [place] [address] Business (1) In 3 days 11/08/2023 Comments: [...] opioids can be used to help relieve epuauofo-ht-gxbycy pain and are often prescribed following a [...] o Work (more content not included)... Normal [facility] HEMATOLOGYOrdered By: SYSTEM SYSTEM on 11-05-2023 Basophils/100 [...] test) Ql Negative (11/05/23 1:37 AM) Normal [facility] [place] URINALYSISOrdered By: SYSTEM SYSTEM on 11-05-2023 Bilirubin Ql (U) Negative Normal Negativemg/ d L [facility] UA Auto SS Clarity (U) Clear (11/05/23 1:41 AM) Normal Clear [facility] UA Auto SS Color (U) Light-Yellow 1 (11/05/23 1:41 AM) Normal Yellow [facility] UA Auto SS Comment on above: Interpretive Data: M icroscopic readings are only performed on those samples that meet specific criteria set forth by [facility]. Glucose Ql (U) Negative Normal Negativemg/d [...] AM) Invalid Interpretation Code 5.0 - 9.0 [facility] [place] Auto SS Protein Ql (U) Negative Normal Negativemg/d L [facility] [place] [facility] Auto SS Specific gravity (U) [Rel density] 1.024 *NA* (11/05/23 1:41 AM) Invalid Interpretation Code 1.005 - 1.030 [facility] [place] [facility]A Auto SS Urobilinogen (U) [Mass/Vol] Negative Normal Negativemg/d L [facility] [place] [facility] Auto SS URINALYSISOrdered By: Guille tavarez on 11-05-2023 UA Spec Desc Clean Catch (11/05/23 1:41 AM) Normal [facility] [place]A Auto SS Work Phone: [place] [...] ILA Technical Comments Transabdominal Ultrasound Performed Normal [facility] eGFRon 11-05-2023 eGFR 102 mL/min/1.73 m2 Normal >=59 [facility] Comment on above: Order Comment: Order added by Discern Expert. Performed By: #### 1 [id number] #### [facility] [address] [place] [address] Ambulatory Visit Summaryon 0 2023 Ambulatory Visit [...] EDT With: Bon DC, Fatoumata Kelsey Where: [facility] Friday 1:45 PM EDT With: [...] choosing us for your care. Normal [facility] Bilirubin Test strip Ql (U)O rdered By: PROVIDER TEMP on 2023 Bilirubin Ql (U) Negative Negative [facility] Color of Urine by AutoOrdere d By: PROVIDER TEMP on 2023 Color (U) Colorless Normal Yellow [facility] Comment on above: Order Comment: Name Collection Type:: Voided Performed By: #### C MP, LIPASE, CBC #### [facility] [address] [place] [address] Family Medicine Office/Clini c Noteon 2023 Family [...] day(s), # 14 tab(s), Refills(s) 0, Pharmacy: [facility]/pharm[facility] #[id number], 160, cm, 11/02/23 14:02:00 EDT, Height/Length Dosing, 62, kg, 11/02/23 14:02:00 EDT, Weight Dosing Portions of this record may have been created with voice recognition artificial intelligence software, specifically [place], [address] and or [employer]. Substitutions may have occurred due to the [...] cartilage (1 (more content not included)... Normal [facility] Comment on above: Result Comment: Elec tronically Signed By: Shameka LUKE, Suman Ford\.tesha\Date and Time Signed: 11/02/23 14:56 EDT Glucose [Mass/volume] in Uri ne by Test stripOrdered By: PROVIDER TEMP on 2023 Glucose Test strip (U) [Mass/Vol] Normal mg/dL Normal [facility] HCG ( test) IA.rapi d Ql (U)Ordered By: PROVIDER TEMP on 2023 HCG ( test) Ql (U) Negative [facility] HCG,Urineon 2023 Beta HCG ( test) Ql (U) Negative Normal [facility] Comment on above: Order Comment: Name Collection Type:: Voided Result Comment: PERF ORMED BY: [place] [address] PATHOLOGIST MEDICAL POLICY SPECIALIST ALEXANDER SANDERS M.D. Performed By: #### C MP, LIPASE, CBC #### [facility] [address] [place] [address] Hemoglobin Test strip Ql (U) Ordered By: PROVIDER TEMP on 2023 Hemoglobin Ql (U) Negative Negative [facility] Ketones [Presence] in Urine by Test stripOrdered By: PROVIDER TEMP on 2023 Ketones Ql (U) Negative Normal Negative [facility] Comment on above: Order Comment: Name Collection Type:: Voided Performed By: #### C MP, LIPASE, CBC #### [facility] [address] [place] [address] [place] Leukocyte esterase [Presence ] in Urine by Test stripOrdered By: PROVIDER TEMP on 2023 Leukocyte esterase Test strip Ql (U) Negative Normal Negative [facility] Comment on above: Order Comment: Name Collection Type:: Voided Performed By: #### C MP, LIPASE, CBC #### [facility] [address] [place], [place] [id number] [place] Nitrite Test strip Ql (U)Ord ered By: PROVIDER TEMP on 2023 Nitrite Ql (U) Negative Negative [facility] Protein Test strip (U) [Mass /Vol]Ordered By: PROVIDER TEMP on 2023 Protein (U) [Mass/Vol] Negative Negative [facility] Specific gravity Test strip (U) [Rel density]Ordered By: PROVIDER TEMP on 2023 Specific gravity (U) [Rel density] 1.012 1.001-1.030 [facility] Urinalysison 2023 Bilirubin,Urine Negative Normal Negative [facility] Comment on above: Order Comment: Name Collection Type:: Voided Performed By: #### C MP, LIPASE, CBC #### [facility] [address] Glucose Ql (U) Normal Normal Normal [facility] Comment on above: Order Comment: Name Collection Type:: Voided Performed By: #### C MP, LIPASE, CBC #### [facility] [address] [place] [address] Nitrite,Urine Negative Normal Negative [facility] Comment on above: Order Comment: Name Collection Type:: Voided Performed By: #### C MP, LIPASE, CBC #### [facility] [address] [place] [address] [place] Occult Blood,Urine Negative Normal Negative [facility] Comment on above: Order Comment: Name Collection Type:: Voided Performed By: #### C MP, LIPASE, CBC #### [address] Protein,Urine Negative Normal Negative [facility] Comment on above: Order Comment: Name Collection Type:: Voided Performed By: #### C MP, LIPASE, CBC #### [facility] [address] [place] [address] [place] Specificy Stephen,Urine 1.012 Normal 1.001-1.030 [facility] Comment on above: Order Comment: Name Collection Type:: Voided Performed By: #### C MP, LIPASE, CBC #### [facility] [address] [place] [address] [place] Urobilinogen,Urine Normal Normal Normal [facility] Comment on above: Order Comment: Name Collection Type:: Voided Performed By: #### C MP, LIPASE, CBC #### [facility] [address] [place] [id number] [facility] Urine appearanceOrdered By: PROVIDER TEMP on 2023 Appearance (U) Clear Normal Clear [facility] Comment on above: Order Comment: Name Collection Type:: Voided Performed By: #### C MP, LIPASE, CBC #### [facility] [address] [place] [id number] [facility] Urobilinogen Test strip (U) [Mass/Vol]Ordered By: PROVIDER TEMP on 2023 Urobilinogen (U) [Mass/Vol] Normal mg/dL Normal [facility] pH of Urine by Test stripOrd ered By: PROVIDER TEMP on 2023 pH (U) 7.0 [pH] Normal 5.0-9.0 [facility] Comment on above: Order Comment: Name Collection Type:: Voided Performed By: #### C MP, LIPASE, CBC #### [facility] [address] [place], [place] [id number] [facility] ED Clinical Summaryon 2023 ED Clinical Summary ED Clinical Summary [place] [id number] ED Clinical Summary Person Information Name: ALEJANDRA REAL [facility] Age: 27 Years : 1995 Sex: Female Language: [place] Citizen PCP: Lorri Ireland CNP Marital Status: Single Phone: [phone] Visit Id: Visit Reason: Nausea; Abdominal pain; [...] 11/01/2023 20:05:59 11/01/2023 20:05:59 11/01/2023 20:05:59 ADDRESS: [address] [place] [id number] [facility] DOC NOTES: MEDICAL INFORMATION: Prescriptions Given: [...] Follow up: With: Address: When: Fatoumata Gooden [address] [place] [address] Business (1) In 3 days 11/04/2023 With: Address: When: Lorri Ireland [address] [place] [address], [address] [place] [phone] Business (1) In 3 days DIAGNOSIS: AP (abdominal pain) Normal [facility] ED Note-Physicianon 11-01-19 ED Note-Physician ED Note-Physician [...] and Complexity of Problems Differential Diagnosis: [] [facility] Data External documents reviewed: N/A My [...] date 11/01/23 19:55:00 EDT, 11/01/23 19:55:00 EDT Disposition Plan Discharge Prescription List Prescriptions No active prescription medications Follow-up With When Contact Information Fatoumata Gooden In 3 days 11/04/2023 EDT [address] [place] [address]- Business (1) Additional Instructions: Lorri Ireland In 3 days [address] [facility], [address] [place] [address]- Business (1) Additional Instructions: Patient Education Abdominal Pain, Adult Problem List/Past Medical History Ongoing Asthma BMI 25.0-25.9,adult Dysuria History of COVID-19 (04-24-2020) Lower abdominal pain Numbness and tingling of [...] with Si (more content not included)... Normal [facility] Comment on above: Result Comment: Elec tronically [...] day(s), # 5 tab(s), Refills(s) 0, Pharmacy: [facility] #[id number], 160, cm, 10/31/23 12:45:00 EDT, Height/Length Dosing, 63.2, kg, 10/31/23 12:45:00 EDT, Weight Dosing Medications Administered Given dqmnhh5Jqjhzjisj [F], 30 mg, IntraMuscular Disposition Plan Patient Discharge Condition Stable Discharge Disposition Home Discharge Prescription List Prescriptions predniSONE 50 mg Tab, 50 mg= 1 tab(s), Oral, Daily Follow-up With When Contact Information Follow-up with Dr. Gooden and pain management as scheduled. In 3 days 11/03/2023 EDT Additional Instructions: Lorri Ireland In [address] [place] [address], [address] [place] [phone]- Business (1) Additional Instructions: Patient Education Abdominal Pain, Adult, Ittq-cm-Peiq Attestation Patient seen and evaluated by the physician workers compensation claims assistant. Attending physician was present in the emergency department and supervised care. This visit was performed by both the physician and an APC. I performed all aspects of the MDM as documented. This report was transcribed using voice recognition software. Every effort was made to ensure accuracy, however, inadvertently computerized layer out mistakes may be present. Appropriate healthcare PPE [...] 25.0-25.9,adult Dysuria (more content not included)... Normal [facility] Comment on above: Result Comment: Elec tronically Signed By: France Day PA-C\.br\Date and Time Signed: 10/31/23 17:23 EDT\.br\Electronically Co-Signed By: Justo Arias DO\.br\Date and Time Co-Signed: 11/01/23 07:47 EDT ED Patient Summaryon 024 ED Patient Summary ED Patient Summary [place] [id number] Patient Discharge Instructions Person Information Name: ALEJANDRA REAL Age: 27 Years Arrival Date: 11/01/2023 19:33:16 Discharge Diagnosis: AP (abdominal pain) Primary Care Physician: Lorri Ireland CNP Provider Information Primary Provider: Bruno Jara DO Advanced Senior Manufacturing Engineer:Ted The exam and treatment you received in the Emergency Department were for an urgent problem and are not intended as complete care. It is important that you follow up with a doctor, nurse practitioner, or physician?s workers compensation claims assistant for ongoing care. If your symptoms [...] Follow-up Instructions: With: Address: When: Fatoumata Gooden [address] [place] [id number] Business (1) In 3 days 11/04/2023 With: Address: When: Lorri Ireland [address] [place] [address], [facility], [address] [place] [address] Business (1) In 3 days In the event that this physician does not participate in your insurance network, please consult with your insurance company to find a nearby participating provider. Patient Education Materials: Abdominal Pain, Adult A MESSAGE TO ALL PATIENTS REGARDING OPIOIDS PRESCRIPTION OPIOIDS: WHAT YOU NEED TO KNOW Prescription opioids can be used to help relieve amgvxrik-oo-xhbspn pain and are often prescribed following a [...] with addicti (more content not included)... Normal [facility] ED Clinical Summaryon 2023 ED Clinical Summary ED Clinical Summary [place] [id number] ED Clinical Summary Person Information Name: ALEJANDRA REAL [facility] Age: 27 Years : 1995 Sex: Female Language: [place] Citizen PCP: Lorri Ireland CNP Marital Status: Single Phone: [phone] Visit Id: Visit Reason: Nausea; Abdominal pain; [...] 14:04:07 10/31/2023 14:04:07 10/31/2023 14:04:07 ADDRESS: [address] [facility] [id number] PHYS DOC NOTES: MEDICAL INFORMATION: Prescriptions Given: New Medications [id number], [address] [facility] [place], [place] [id number], [phone] predniSONE (predniSONE 50 mg Tab) 1 Tablets [...] PATIENT EDUCATION INFORMATION: Instructions: Abdominal Pain, Adult, Vrrw-jm-Yjek Follow up: With: Address: When: Follow-up with Dr. Gooden and pain management as scheduled. In 3 days 11/03/2023 With: Address: When: Lorri Ireland [address] [place] [address], [facility], [address] [place] [address] Business (1) In 3 days DIAGNOSIS: Chronic pain disorder Normal [facility] ED Patient Summaryon 024 ED Patient Summary ED Patient Summary [address] [address] Patient Discharge Instructions Person Information Name: ALEJANDRA REAL Age: 27 Years Arrival Date: 10/31/2023 12:38:24 Discharge Diagnosis: Chronic pain disorder Primary Care Physician: Lorri Ireland CNP Provider Information Primary Provider: Justo Arias DO Advanced Senior Manufacturing Engineer:France Day PA-C. The exam and treatment you received in the Emergency Department were for an urgent problem and are not intended as complete care. It is important that you follow up with a doctor, nurse practitioner, or physician?s workers compensation claims assistant for ongoing care. If your symptoms [...] days 11/03/2023 With: Address: When: Lorri Ireland [address] [place] [address], [address] [place] [phone] [facility] (1) In 3 days In the event that this physician does not participate in your insurance network, please consult with your insurance company to find a nearby participating provider. Patient Education Materials: Abdominal Pain, Adult, Xizl-sj-Zyqd A MESSAGE TO ALL PATIENTS REGARDING OPIOIDS PRESCRIPTION OPIOIDS: WHAT YOU NEED TO KNOW Prescription opioids can be used to help relieve xvmeafkg-vy-hzoisb pain and are often prescribed following a [...] struggling wi (more content not included)... Normal [facility] UA with Cult [employer] 10-31-19 24 Bilirubin Ql (U) Negative Normal Negative [facility] Comment on above: Performed By: #### 4 [id number] #### [facility] [address] [place] [address] Clarity (U) Clear Normal Clear [facility] Comment on above: Performed By: #### 4 [id number] #### [facility] [address] [place] [address] Color (U) Light-Yellow Normal Yellow [facility] Comment on above: Result Comment: Micr oscopic readings are only performed on those samples that meet specific criteria set forth by [facility]. Performed By: #### 4 [id number] #### [facility] [address] [place] [address] Glucose Ql (U) Negative Normal Negative [facility] Comment on above: Performed By: #### 4 [id number] #### [facility] [address] [place] [address] Hemoglobin Auto test strip (U) [Mass/Vol] Negative Normal Negative [facility] Comment on above: Performed By: #### 4 [id number] #### [facility] [address] [place] [address] Ketones Auto test strip Ql (U) Negative Normal Negative [facility] Comment on above: Performed By: #### 4 [id number] #### [facility] [address] [place] [address] Leukocyte esterase Auto test strip Ql (U) Negative Normal Negative [facility] Comment on above: Performed By: #### 4 [id number] #### [facility] [address] [place] [address] Nitrite Auto test strip Ql (U) Negative Normal Negative [facility] Comment on above: Performed By: #### 4 [id number] #### [facility] [address] [place] [address] pH (U) 6.0 [pH] Invalid Interpretation Code 5.0-9.0 [facility] Comment on above: Performed By: #### 4 [id number] #### [facility] [address] [place] [address] Protein Ql (U) Negative Normal Negative [facility] Comment on above: Performed By: #### 4 [id number] #### [facility] [address] [place] [address] Specific gravity (U) [Rel density] 1.017 Invalid Interpretation Code 1.005-1.030 [facility] Comment on above: Performed By: #### 4 [id number] #### [facility] [address] [place] [address] Urobilinogen (U) [Mass/Vol] Negative Normal Negative [facility] Comment on above: Performed By: #### 4 [id number] #### [facility] [address] [place] [address] Type of Urine collection method Clean Catch Normal [facility] Comment on above: Performed By: #### 4 [id number] #### [facility] [address] [place] [address] URINALYSISOrdered By: SYSTEM SYSTEM on 10-31-2023 Bilirubin Ql (U) Negative Normal Negativemg/ d L [facility] Auto SS Clarity (U) Clear (10/31/23 12:50 PM) Normal Clear [facility] Auto SS Color (U) Light-Yellow 1 (10/31/23 12:50 PM) Normal Yellow [facility] Auto SS Comment on above: Interpretive Data: M icroscopic readings are only performed on those samples that meet specific criteria set forth by [facility]. Glucose Ql (U) Negative Normal Negativemg/d [...] PM) Invalid Interpretation Code 1.005 - 1.030 [facility] Auto SS Urobilinogen (U) [Mass/Vol] Negative Normal Negativemg/d L [facility] Auto SS URINALYSISOrdered By: Donna Coelho on 10-31-2023 UA Spec Desc Clean Catch (10/31/23 12:50 PM) Normal [facility] Auto SS ED Clinical Summaryon 2023 ED Clinical Summary ED Clinical Summary [place] [id number] ED Clinical Summary Person Information Name: ALEJANDRA REAL [facility] Age: 27 Years : 1995 Sex: Female Language: [place] Citizen PCP: Lorri Ireland CNP Marital Status: Single Phone: [phone] Visit Id: Visit Reason: Pelvic pain; Chronic [...] 10/30/2023 16:58:39 10/30/2023 16:58:39 10/30/2023 16:58:39 ADDRESS: [address] [place] [address] [address] [facility] [id number] PHYS DOC NOTES: MEDICAL INFORMATION: Prescriptions Given: [...] already scheduled With: Address: When: Lorri Ireland [address] [place] [address], [facility], [address] [place] [phone] Business (1) In 3 days DIAGNOSIS: 1:Chronic pain Normal [facility] ED Note-Physicianon 10-30-19 ED Note-Physician ED Note-Physician [...] Instructions: Lorri Ireland In 3 days [address] [facility], [address] [place] [address]- [facility] (1) Additional Instructions: Patient Education Pelvic Pain, Female Attestation Patient was treated and evaluated by the Physician Corporate Licensed Broker. The attending physician was in the Emergency [...] - O (more content not included)... Normal [facility] Comment on above: Result Comment: Elec tronically Signed By: Siomara Nettles PA-C\.br\Date and Time Signed: 10/30/23 16:35 EDT\.br\Electronically Co-Signed By: Mary Jane Palm M.D.\.br\Date and Time Co-Signed: 10/30/23 17:08 EDT ED Patient Summaryon ED Patient Summary ED Patient Summary [place] [id number] Patient Discharge Instructions Person Information Name: ALEJANDRA REAL Age: 27 Years Arrival Date: 10/30/2023 16:04:18 Discharge Diagnosis: 1:Chronic pain Primary Care Physician: Lorri Ireland CNP Provider Information Primary Provider: Mary Jane Palm M.D. Advanced Senior Manufacturing Engineer:Siomara Nettles PA-C The exam and treatment you received in the Emergency Department were for an urgent problem and are not intended as complete care. It is important that you follow up with a doctor, nurse practitioner, or physician?s workers compensation claims assistant for ongoing care. If your symptoms become worse or you do not improve as expected and you are unable to reach your usual health care provider, you should return to the Emergency Department. We are available 24 hours a day. REAL, ALEJANDRA Rafaela has been given the following list of patient education materials, prescriptions and follow-up instructions: Follow-up Instructions: With: Address: When: Follow with Dr. Gooden and pain management as already scheduled With: Address: When: Lorri Ireland [address] [place] [address], [address] [place] [phone] Business (1) In 3 days In the event that this physician does not participate in your insurance network, please consult with your insurance company to find a nearby participating provider. Patient Education Materials: Pelvic Pain, Female A MESSAGE TO ALL PATIENTS REGARDING OPIOIDS PRESCRIPTION OPIOIDS: WHAT YOU NEED TO KNOW Prescription opioids can be used to help relieve sswbqusr-mw-uuctke pain and are often prescribed following a [...] health ca (more content not included)... Normal [facility] ED Clinical Summaryon 2023 ED Clinical Summary ED Clinical Summary [place] [id number] ED Clinical Summary Person Information Name: ALEJANDRA REAL [place] Age: 27 Years : 1995 Sex: Female Language: [place] Citizen PCP: Lorri Ireland CNP Marital Status: Single Phone: [phone] MRN: Visit Id: Visit Reason: Chronic pain; Pelvic [...] 14:57:20 ADDRESS: [address] [facility] [id number] PHYS DOC NOTES: MEDICAL INFORMATION: Prescriptions Given: Medications to Continue Taking That Have Changed [id number], [address] [place], [place] [id number], [phone] START: tramadol (traMADOL 50 mg Tab) 1 Tablets By Mouth every 6 hours as needed for pain for 3 Days. Refills: 0. [id number], [address] [place], [place] [id number], [phone] START: tramadol (traMADOL 50 mg Tab) 1 [...] Follow up: With: Address: When: Lorri Ireland [address] [place] [address], [facility], [address] [place] [address] Business (1) In 3 days DIAGNOSIS: Chronic pain in female pelvis; Other chronic pain Normal [facility] ED Note-Physicianon 10-25-19 ED Note-Physician ED Note-Physician [...] and Complexity of Problems Differential Diagnosis: [] [facility] Data External documents reviewed: [] My [...] day(s), # 12 tab(s), Refills(s) 0, Pharmacy: [id number], 160, cm, 10/25/23 13:44:00 EDT, Height/Length Dosing, 65, kg, 10/25/23 13:44:00 EDT, Weight Dosing tramadol, 50 mg = 1 tab(s), Oral, q6hr, PRN for pain, X 3 day(s), # 12 tab(s), Refills(s) 0, Pharmacy: [facility]/pharmacy #[id number], 160, cm, 10/25/23 13:44:00 EDT, Height/Length Dosing, 65, kg, 10/25/23 13:44:00 EDT, Weight Dosing Disposition Plan Patient Discharge Condition Stable Discharge Disposition To home Discharge Prescription List Prescriptions traMADOL 50 mg Tab, 50 mg= 1 tab(s), Oral, q6hr, PRN traMADOL 50 mg Tab, 50 mg= 1 tab(s), Oral, q6hr, PRN Follow-up With When Contact Information Lorri Ireland In 3 days [address] [facility], [address] [place] [phone]- Business (1) Additional Instructions: Patient Education Chronic Pain, Adult Attestation Patient seen and evaluated by the physician workers compensation claims assistant. Attending physician was present in the emergency department and supervised care. This visit was performed by both the physician and an APC. I performed all aspects of the MDM as documented. This report was transcribed using voice recognition software. Every effort was made to ensure accuracy, however, inadvertently computerized layer out mistakes may be present. Appropriate healthcare PPE [...] of complications. (Independen (more content not included)... [facility] Comment on above: Result Comment: Elec tronically Signed By: Ulisses Mckinney PA-C\.br\Date and Time Signed: 10/25/23 15:22 EDT\.br\Electronically Co-Signed By: Darren Lomax DO\.br\Date and Time Co-Signed: 10/25/23 15:24 EDT ED Patient Summaryon 024 ED Patient Summary ED Patient Summary [place] [address] Patient Discharge Instructions Person Information Name: MEAGAN REALYA Rafaela Age: 27 Years Arrival Date: 10/25/2023 13:28:13 Discharge Diagnosis: Chronic pain in female pelvis; Other chronic pain Primary Care Physician: Lorri Ireland CNP Provider Information Primary Provider: Darren Lomax DO Advanced Senior Manufacturing Engineer:None The exam and treatment you received in the Emergency Department were for an urgent problem and are not intended as complete care. It is important that you follow up with a doctor, nurse practitioner, or physician?s workers compensation claims assistant for ongoing care. If your symptoms [...] Follow-up Instructions: With: Address: When: Lorri Ireland [address] [place] [address], [address] [place] [phone] Business (1) In 3 days In the event that this physician does not participate in your insurance network, please consult with your insurance company to find a nearby participating provider. Patient Education Materials: Chronic Pain, Adult A MESSAGE TO ALL PATIENTS REGARDING OPIOIDS PRESCRIPTION OPIOIDS: WHAT YOU NEED TO KNOW Prescription opioids can be used to help relieve ytmarjkc-kn-cfrvmv pain and are often prescribed following a [...] be struggling with addiction, tell your health long term care pharmacist and ask for guidance or call [facility] National Helpline a (more content not included)... Normal [facility] ED Note-Physicianon 10-24-19 ED Note-Physician ED Note-Physician Basic Information Time Seen: Katarzyna LUKE, Juancho Bravo. 10/21/2023 18:17 Chief Complaint pelvic pain started [...] day(s), # 12 tab(s), Refills(s) 0, [facility]acy: [id number], 160, cm, 10/21/23 18:20:00 EDT, Height/Length Dosing, [...] q6hr Follow-up With When Contact Information Cristóbal Granados In 3 days 10/24/2023 EDT [address] [place] [address] Business (1) Additional Instructions: Pain Clinic: [facility] [phone] In 3 days 10/24/2023 EDT Additional Instructions: Lorri Ireland In 3 days [address] [facility], [address] [place] [address]- Business (1) Additional Instructions: Patient Education Pelvic Pain, Female Attestation Patient seen and evaluated by the physician workers compensation claims assistant. Attending physician was present in the emergency department and supervised care. This visit was performed by both the physician and an APC. I performed all aspects of the MDM as documented. This report was transcribed using voice recognition software. Every effort was made to ensure accuracy, however, inadvertently computerized layer out mistakes may be present. Appropriate healthcare PPE was used in evaluating this patient. The patient was placed in a mask. The healthcare provider was wearing mask, gloves, and utilizing proper hand hygiene. All equipment was properly cleansed. I performed a substantive part of the MDM during the patient?s E/M visit. I pers (more content not included)... Normal [facility] Comment on above: Result Comment: Elec tronically Signed By: Juancho Colón PA-C\.br\Date and Time Signed: 10/21/23 20:37 EDT\.br\Electronically Co-Signed By: Justo Arias DO\.br\Date and Time Co-Signed: 10/24/23 07:16 EDT Coding Summary.on 10-22-2023 Coding Summary. YVGIEorl92NQd8jUq+PG h lYWQ+JB3GMHQlE94tjTJp tV8hE7UTONuRTcefONKWG HxLLtGvelMaAK2tnCZzVR Ju IC8+CD7qFZMaIaubnJXdb 7Q9sSM1B47kbs4jPFouqA W5UZNnZtPugzwbq7ggcBt 6IDcuNmluOyBt TTLadB06QDI8jU00Ab36h QYlzCCct9ypxRy6VwVlFD FePKT5xBexTKmxe4YsSME sV16gwQMtj9C8 NVLhwEeneDAaUfUchCL0f V2sAMrlspuca2ujaiccFc o8dw45yGVtd9P2zSA6P3O efwF2WMLqjDVz HbncpPJAcO9nqpgjy9vsl tlkVzLhBOLlQQn0LMs7JV DnqUkkYlLnGF97ZVR0UYO bnbHsX6LiMLOv xJfjIaW1z2H4Tg9MC2GJZ jplE7YMOMNFBNusoYZ+PC 93pj72A6VjEfwmOwl4DOW jIQE4wSS1mW7y KRVwLQhru4W5dVF4P6Iri cGtkp7em8qaJUMaUDcbE6 5tlNAnm2D4TQNxkAW1VYP enRuzLpNjbM86 Oyc+YZOjuAejl3RcAjvwe 5izi4tkrJk5FcblTQBhxz JdqXtqWTO7r3EmYn2uIRE mtSM5yWZ8cZ9s YgDoSoS6DNdqX890UxOvd CAvQuzlX38qX9QmsNS+PH VgPuv3EQYowBrrPB7wX5R hZGRpbmctbGVm dIbjDI6xNMJnyqnbWWQkz B1oNAFbR7y2FiFcAxY6NU gvS1EaIGTpdehzNl15dC5 hFfVgZrX5TAjm L0GhjwS6WBAsbDSzFPqrJ WP5E09jz6P1XMPcOAZlOX L0sOX8mF8ffVbqvosrwIO mdDsgdmVydGlj SRqvAOlgM306YEYoeHerX kNvZGluZyBEYXRlOiAgMD YvMjYvMjAyNDwvdGQ+PHR lYNB3jDptGJHa bLKcXZwfEp9sdTnxeVnzV H7qQNZfcopyJGOjdX0nRQ NrmZYbnZzkJS7qPTFfuoi il546FlOgPSR0 DOIunTXuM4ZhyX8bDvFxL WWcJYTfJ2FjzIIwDRfmI6 49KLhnHhA7KJPsurRnF4L sLWFsaWduOiB0 c1X6Iz3Qa3JomkoaO8Air KWwCzSeGosyMLz8P2XgBv wvdHI+RE55LIJkFI10KAx 1DJT2nCisZCic FNUoV1FgdM4lUlJpIJQaM GRkOyc+PHRhYmxlIHdpZH RoPScxMDAlJyBzdHlsZT0 iBe5iTIIsLVMm gSirlBVyBkSau5dpTOBzU LkqBY0qzWcwB4AldYA7OZ Ozb2c4Ct98H20cV8YjhXR +MHDmvYG2vKR3 pC5fEeQoPlZ8EPtoQ377X aWfmQDmVsdax9hiq1zslS c4EnT1ZCDwbcMkkRabEVP 1w3VbRk79R85b IHdpZHRoPSIxNSUiIHZhb Uwipn7fuP8aWj2+PGNvbC K5dLG3sU4bBkGxBgK5GIm eQ864ZzMdyCOx Edyxc1aal2wjmZd5OxDiL JIuwyBdmGltBBF5f0NvCk 11S1OcnAtcs5KcHvc9tr5 6lXIxe4W3bEB5 J1KeLCFllwkrbFLvySjaB A0gXFCfmpdzIUDinQ5oFC OlP8l8McVxQjV5VHhmX7Q kayK8MQBwkCHq JFThaIUSlV7wygcgr8cma iybSpYaDVRaUGv7JQm7IJ EvyLzfTeWxFSQ9OdS5BMH 1sYCtdS6lhGrg cidwxM0tQwx+FXI9uXDgv MJQVL7pCnqzxXF+PHRkIH J3iIcaWMinOZHkgF3xSSN fJ1f4YhMySzN7 KNrdC6TsccU5XRNtyYHcT VEvcGFJdV2fkigam0ovkv ilCsNrMXJiJTx4MCt9HGR saWduOiBsZWZ0 OpL2TKX1oQCjjZ3glVfpk jfaxF2bWyb+QmlydGggRG O8YQy6L4NoAza5AKDuwWa uSG0haCKxMUvp Ct7piJuruCitGX2zHZUle hfho507XeDlj2hbWDFalJ QxSXylDET1Q29wk9Q2GCL fQAGqIIJ3ePD1 xP0teExvhospwHMlsNkoc cKblHjzLMfqBZksU816DT IcmQusQsZlWYo5P0LrNyq 7PXTlcRimCC0g kUIaBCvvIw1xsZpqbFrqD Q4zAJTgcipma437IzYnw1 muENXfuNZgUImpVTJ1O31 mp6O2HTDiMMHb CWM5xWV5bQ4qcWfaoicwo GVmdDsgdmVydGljYWwtYW gzC512XJIlcGbvCpGocVl 8N7SvQhq9YDEm fWceEU9voGEbTPxyGt6ww AdubRyrIB5uHFAzsshjy5 09MdWdu2ukXFIoxHFrHXk wHIS8B16zy0J9 GPAjNGZkCMP6pVI5tI8fl GlnbjogbGVmdDsgdmVydG rzPRvwELuoM090WOQlwFx nPlBhdGllbnQg HOqsKYi6R3SxKdefxGH+P D59LPFoDH51bNZcjDDdp2 dlfWw5DgRrMJTrWSD5pYa lZSbsl8UxFSTc W39lvEOyd7R8DDFnnMkjj TZcSrZazPK8hP2jICvmut okk9utbsoeGoqlu6lmcu2 3nE33L93pDCuk ZHRoPSIzMCUiIHZhbGlnb m4diG9kGr2+CGKtvSA8gO I2oI5xBUSxAqE6QZsxB38 9InRvcCIvPjxj a5vaa4trxVf9WbF0LXIft xQwrMwcYBO9l7JyJb60X9 9sIHdpZHRoPSIyMCUiIHZ lvDlvhz0orW9a Ii8+DFCjhDJ8pBS8fB3wV oXfZmZ1PQztR870AoXiuZ ErCudgW64vQ7OjgRO+PHR yGpo2OWUkhFce YF7clWLgAPzvMi1mAEN6S sDhPsLtXQknM5VvETUerw ikytmswNF4VNMlYSCgyF5 1Ll7eaBmrBHIf kGBOnV8msghow3sopybyA yRwHUGeWOn8TMa5FTTfaW vrEhOcGZZ3QjC4ZJV0nGE eyP2tfTuqnjwp dE0lW7RgHBQcpqagEn92g W9iZiMdPoF8BVneTkx+Qk OPJ8CXYJTQX45BQPECQS4 3MG36rDIjr3G0 yIQ2Y2StEBOzqonhupxfb VL7KANwETRuvV84iMGwEX vcVp5fn9Z4l181TAJxSFZ qmG04Jq9nqRsn LTLoaJXVdU4weryoa7bcv vhmIiWdJRKfMOl2PRv2QN VbtInaPwCuWRW8AwH7XAY 5qZEdsE5lxPvl indbjC8oAqj+MDcvMDgvM Ej4YRjbbAM+THTuHIS8qG enIJgqAVJtqR4wQMUzI5r 7JaVkGbS5BVpu R4CqKURkkhvqCp33yK6yI uUgTfY8UAxlO1HyzqB9MY EzpMSfKYbrWOA2F44su8W 5AKWsEDWgRZL1 bNC6nD7hqPpdequluUOjd DsgdmVydGljYWwtYWxpZ2 15UEUmhOkgRjB1SVapHEL sVY76LR87pJIv s0U8bIA4E5OcNNQvrkutr sqiaSZ5KYClAGPqnC44uQ TgIUogCs7ma4T2w260PTD iKLFrvY77Ek0j bZezMIKafLTWfK4dalwbi 0sapacgRhYnFDFkSLw6WK p5EZFstBydLvPeCPG4DtV 2EJI8yDPgjK8z cUmywufzzM0nVon+RmVtY IpdFI90ML64uCUkw6E0eK P2F8HwCUQfxveejnlaxLN 8GJFxUQOfiD40 cTJfXOhkKa1nt1R5x063N XFvVWKelI45Da2nkOjqVM RylDLEbC3zjetlw4yiqtx gIzAwMDAwMDt0 CNl7IZQcjDjpTzMqAXG9E hM8KRM8tCIqaN7rgQxjuo cepT6yAak+YL4npdgnqxS 7UJ12WI01Y7Tf PjwvdGFibGU+PHRhYmxlI HdpZHRoPScxMDAlJyBzdH pcSG8gQx7eBDHjZGQyfUo nzSSoMoFzv7de PQIsWCpuXJ2cbEonJ6Rxz MZ2AKVvh9f7Fo47T18pG0 JvdXA+URZczGR8tZN3zP9 kLaYdZpS5WBeg O069SkFbgGChTfjdu8mof 4vjjIq3EsXaRVCspzItwL nsZVW9l0FmLo57S42sVQd pZHRoPSIyMCUi CNFolUaujh9zwK2jXj6+P MKqaBJ6oDM8zV3lBzDzCm X0YBsuS113UtArwEWpAee vZ66kR2IrzXD+ KBAlArc9AILozJlbGI6rg FGyMOtxDy5yZBA4BvRlTj RiWAnzB0IaVBMdkyqezik raDV3GRYzXQRu kP29Ma4tmYrdJn6eBIQoE HS0QLAkcRDmI8BmqK2vCz NcVQVjAESbL6NdtNScIGm iF396BVjeIoQ3 GQIscqTnR6FcNMOinGsbV eM6v5Y9Ij4UiOhbaHVlLH 7rEhHdSNj3Z6CtVlf5SNT cyAysCA2tkKZh TMkzKd9qfZrtoHmkCB4nD KZxnvbbk801MnQzb2jwEU UltNWvHXkcUDV2Y93bh4U 8ORIdRKGgILS5 dLG0jQ2vxYznfxeofLNpd DsgdmVydGljYWwtYWxpZ2 97TUZbhXehIjRHQtv6O6H hIza5DCPszCcq RF7nbBZjXIymTk0smYsog YyqUY0jTKLqjczry987Fk Mxk6llVCEerUMwDOgjFKK 9F43ck6B9FDJb IUHpQPT5aYA9uS3ydSwbb jogbGVmdDsgdmVydGljYW yyILegF463AZKjjSzrFq3 CRrc7A9NyRwb6 FNEoyDipEC2gyVZxEUcdT y9roNfsoBylPR1yQYKqjm voa935NrCxu1siOKOwjBP sAPnoGRT3Z84c p7T8PPKnWPToMLQ8uUL9u Z8uoJouitrhvWKjqKynna SiwJfeVOvjDMemS325YFJ vcDsnPlBheWVy OjwvdGQ+MB77ro72X9XzZ aaoYqk6WHJlWAB0nUA3wT 1wEIPvXVhzt6M2wJP4L3Q jtnVtbk7fk9ta QRMvZYetK28ac (more content not included)... Normal [facility] Consent for Treatmenton 09-27 Consent for Treatment [id number]#1 .00TIFF Normal [facility] Discharge Instructionson Discharge Instructions [id number]# 1.00TIFF Normal [facility] ED Clinical Summaryon 2023 ED Clinical Summary [place] [address] ED Clinical Summary Person Information Name: ALEJANDRA REAL [facility] Age: 27 Years : 1995 Sex: Female Language: [place] Citizen PCP: Lorri Ireland CNP Marital Status: Single Phone: [phone] Visit Id: Visit Reason: Nausea; Back pain; [...] 10/21/2023 20:44:31 10/21/2023 20:44:31 10/21/2023 20:44:31 ADDRESS: [address] [place] [id number] [facility] DOC NOTES: MEDICAL INFORMATION: Prescriptions Given: Medications to Continue Taking That Have Changed [id number], [address] [place], [place] [id number], [phone] START: tramadol (traMADOL 50 mg Tab) 1 [...] Follow up: With: Address: When: Cristóbal Granados [address] [place] [address] Business (1) In 3 days 10/24/2023 With: Address: When: [facility] Clinic[facility] [phone] In 3 days 10/24/2023 With: Address: When: Lorri Ireland [address] [place] [address], [facility], [address] [place] [address] Business (1) In 3 days DIAGNOSIS: 1:Chronic pain disorder; 2:Pelvic congestion syndrome Normal [facility] ED Patient Education Noteon 10-21-2023 ED Patient [...] Follow these instructions at home: ? Take fcrb-fcm-nayizro and prescription medicines only as told by [...] provider. Document Revised: 08/21/2021 Document Reviewed: 08/21/2021 [employer] Patient Education ? 2022 [employer]. [facility] ED Patient Summaryon 024 ED Patient Summary [address] [address] Patient Discharge Instructions Person Information Name: ALEJANDRA REAL Age: 27 Years Arrival Date: 10/21/2023 18:13:24 Discharge Diagnosis: 1:Chronic pain disorder; 2:Pelvic congestion syndrome Primary Care Physician: Lorri Ireland CNP Provider Information Primary Provider: Justo Arias DO Advanced Senior Manufacturing Engineer:Juancho Colón PA-C. The exam and treatment you received in the Emergency Department were for an urgent problem and are not intended as complete care. It is important that you follow up with a doctor, nurse practitioner, or physician?s workers compensation claims assistant for ongoing care. If your symptoms [...] Follow-up Instructions: With: Address: When: Cristóbal Granados [address] [place] [address] [facility] () In 3 days 10/24/2023 With: Address: When: Pain Clinic: [facility] [phone] In 3 days 10/24/2023 With: Address: When: Lorri Ireland [address] [place] [address], [address] [place] [address] [facility] (1) In 3 days In the event that this physician does not participate in your insurance network, please consult with your insurance company to find a nearby participating provider. Patient Education Materials: Pelvic Pain, Female A MESSAGE TO ALL PATIENTS REGARDING OPIOIDS PRESCRIPTION OPIOIDS: WHAT YOU NEED TO KNOW Prescription opioids can be used to help relieve znavhzlv-yv-xetdnh pain and are often prescribed following a [...] www.cdc.gov/drugoverd o (more content not included)... Normal [facility] SEROLOGYOrdered By: Azam Cloud urgeon on 10-21-2023 HCG.beta subunit (U) [Moles/Vol] Negative Normal [facility] [place] Sero U BetaHcg Qualon 10-21-2023 HCG.beta subunit (U) [Moles/Vol] Negative Normal [facility] Comment on above: Performed By: #### 2 [id number] #### [facility] [address] [place] [address] UA with Cult Rflxon 10-21-19 24 Bilirubin Ql (U) Negative Normal Negative [facility] Comment on above: Performed By: #### 4 [id number] ####[facility] [address] [facility] [place] [address] Clarity (U) Clear Normal Clear [facility] Comment on above: Performed By: #### 4 [id number] ####[facility] [address] [facility] [place] [address] Color (U) Light-Yellow Normal Yellow [facility] Comment on above: Result Comment: Micr oscopic readings are only performed on those samples that meet specific criteria set forth by [facility]. Performed By: #### 4 [id number] ####[facility] [address] [facility] [place] [address] Glucose Ql (U) Negative Normal Negative [facility] Comment on above: Performed By: #### 4 [id number] ####[facility] [address] [place] [address] Hemoglobin Auto test strip (U) [Mass/Vol] Negative Normal Negative [facility] Comment on above: Performed By: #### 4 [id number] ####[facility] [address] [facility] [place] [address] Ketones Auto test strip Ql (U) Negative Normal Negative [facility] Comment on above: Performed By: #### 4 [id number] ####[address] [address] Leukocyte esterase Auto test strip Ql (U) Negative Normal Negative [facility] Comment on above: Performed By: #### 4 [id number] ####[address] [address] Nitrite Auto test strip Ql (U) Negative Normal Negative [facility] Comment on above: Performed By: #### 4 [id number] ####[address] [address] pH (U) 6.5 [pH] Invalid Interpretation Code 5.0-9.0 [facility] Comment on above: Performed By: #### 4 [id number] ####[address] [address] Protein Ql (U) Negative Normal Negative [facility] Comment on above: Performed By: #### 4 [id number] ####[place] [id number] Specific gravity (U) [Rel density] 1.014 Invalid Interpretation Code 1.005-1.030 [facility] Comment on above: Performed By: #### 4 [id number] ####[address] [address] Urobilinogen (U) [Mass/Vol] Negative Normal Negative [facility] Comment on above: Performed By: #### 4 [id number] ####[address] [address] Type of Urine collection method Clean Catch Normal [facility] Comment on above: Performed By: #### 4 [id number] ####[address] [address] URINALYSISOrdered By: SYSTEM SYSTEM on 10-21-2023 Bilirubin Ql (U) Negative Normal Negativemg/ d L [facility] [place] UA Auto SS Clarity (U) Clear (10/21/23 6:29 PM) Normal Clear [facility] [place] UA Auto SS Color (U) Light-Yellow 1 (10/21/23 6:29 PM) Normal Yellow [facility] [place] UA Auto SS Comment on above: Interpretive Data: M icroscopic readings are only performed on those samples that meet specific criteria set forth by [facility]. Glucose Ql (U) Negative Normal Negativemg/d [...] L FT UA Auto SS pH (U) 6.5 *NA* (10/21/23 6:29 PM) Invalid Interpretation Code 5.0 - 9.0 [facility] [place] UA Auto SS Protein Ql (U) Negative Normal Negativemg/d L [facility] [place] UA Auto SS Specific gravity (U) [Rel density] 1.014 *NA* (10/21/23 6:29 PM) Invalid Interpretation Code 1.005 - 1.030 [facility] [place] UA Auto SS Urobilinogen (U) [Mass/Vol] Negative Normal Negativemg/d L [facility] [place] UA Auto SS URINALYSISOrdered By: Justo contrersa on 10-21-2023 UA Spec Desc Clean Catch (10/21/23 6:29 PM) Normal [facility] [place] UA Auto SS Work Phone: Consent for Treatmenton 09-27 Consent for Treatment [id number]#1 .00TIFF Normal [facility] Discharge Instructionson Discharge Instructions [id number]#1 .00TIFF Normal [facility] ED Clinical Summaryon 2023 ED Clinical Summary [address] [address] ED Clinical Summary Person Information Name: ALEJANDRA REAL [place] Age: 27 Years : 1995 Sex: Female Language: [place] Citizen PCP: Lorri Ireland CNP Marital Status: Single Phone: [phone] Visit Id: Visit Reason: Pelvic pain; PELVIC [...] 14:02:31 ADDRESS: [address] [facility] [id number] PHYS DOC NOTES: MEDICAL INFORMATION: Prescriptions Given: Medications to Continue Taking That Have Changed [id number], [address] [id number], [phone] START: ondansetron (Zofran ODT 4 mg Tab-Dis) [...] up: With: Address: When: Fatoumata Gooden [address] [place] [address] Business (1) In 3 days 10/22/2023 With: Address: When: Lorri Ireland [address] [place] [address], [facility], [address] [place] [address] Business (1) In 3 days DIAGNOSIS: Chronic female pelvic pain; Other chronic pain Normal [facility] ED Note-Physicianon 10-19-19 ED Note-Physician Basic Information Time Seen: Ulisses Mckinney PA-C 10/19/2023 13:29 Chief Complaint Pt presents to [...] and Complexity of Problems Differential Diagnosis: [] [facility] Data External documents reviewed: [] My [...] Nausea/Vomiting, # 20 tab(s), Refills(s) 0, Pharmacy: [id number], 160, cm, 10/19/23 12:58:00 EDT, Height/Length Dosing, 65, kg, 10/19/23 12:58:00 EDT, Weight Dosing tramadol, 50 mg = 1 tab(s), Oral, q6hr, PRN for pain, X 3 day(s), # 10 tab(s), Refills(s) 0, Pharmacy: [facility]acy #[id number], 160, cm, 10/19/23 12:58:00 EDT, [...] Fatoumata Gooden In 3 days 10/22/[address] [place] [address]- Business (1) Additional Instructions: Lorri Ireland In 3 days [address] [facility], [address] [place] [address]- Business (1) Additional Instructions: Attestation Patient seen and evaluated by the physician workers compensation claims assistant. Attending physician was present in the emergency department and supervised care. This visit was performed by both the physician and an APC. I performed all aspects of the MDM as documented. This report was transcribed using voice recognition software. Every effort was made to ensure accuracy, however, inadvertently computerized layer out mistakes may be present. Appropriate healthcare PPE was used in evaluating this patient. The patient was placed in a mask. The healthcare provider was wearing mask, gloves, and utilizing proper hand hygiene. All equipment was properly cleansed. I performed a substantive part of the MDM during the patient?s E/M visit. I personally made or approved the documen (more content not included)... Normal [facility] Comment on above: Result Comment: Elec tronically Signed By: Ulisses Mckinney PA-C\.br\Date and Time Signed: 10/19/23 15:12 EDT\.br\Electronically Co-Signed By: Mary Jane Palm M.D.\.br\Date and Time Co-Signed: 10/19/23 19:47 EDT ED Patient Education Noteon 10-19-2023 ED Patient Education Note Normal [facility] ED Patient Summaryon 024 ED Patient Summary [facility] [address] [place], [place] [address] Patient Discharge Instructions Person Information Name: ALEJANDRA REAL Age: 27 Years Arrival Date: 10/19/2023 12:41:39 Discharge Diagnosis: Chronic female pelvic pain; Other chronic pain Primary Care Physician: Lorri Ireland CNP Provider Information Primary Provider: Mary Jane Palm M.D. Advanced Senior Manufacturing Engineer:None The exam and treatment you received in the Emergency Department were for an urgent problem and are not intended as complete care. It is important that you follow up with a doctor, nurse practitioner, or physician?s workers compensation claims assistant for ongoing care. If your symptoms become worse or you do not improve as expected and you are unable to reach your usual health care provider, you should return to the Emergency Department. We are available 24 hours a day. ALEJANDRA REAL has been given the following list of patient education materials, prescriptions and follow-up instructions: Follow-up Instructions: With: Address: When: Fatoumata Wagneran [address] [place] [address] Business (1) In 3 days 10/22/2023 With: Address: When: Lorri Ireland [address] [place] [address], [address] [place] [address] Business (1) In 3 days In the event that this physician does not participate in your insurance network, please consult with your insurance company to find a nearby participating provider. Patient Education Materials: A MESSAGE TO ALL PATIENTS REGARDING OPIOIDS PRESCRIPTION OPIOIDS: WHAT YOU NEED TO KNOW Prescription opioids can be used to help relieve mtvyydhp-xq-fraeaq pain and are often prescribed following a [...] tell your (more content not included)... Normal [facility] ED Note-Physicianon 10-18-19 ED Note-Physician Basic Information [...] Gooden In 3 days 10/20/2023 EDT [address] [place] [address]- Business (1) Additional Instructions: Follow-up with Dr. Gooden for further management of care. Lorri Ireland In 3 days 10/20/2023 EDT [address] [facility], [address] [place] [address]- Business (1) Additional Instructions: Patient Education Abdominal Pain, Adult, Omkj-tq-Tzjd Attestation Patient seen and evaluated by the physician workers compensation claims assistant. Attending physician was present in the emergency department and supervised care. This visit was performed by both the physician and an APC. I performed all aspects of the MDM as documented. This report was transcribed using voice recognition software. Every effort was made to ensure accuracy, however, inadvertently computerized layer out mistakes may be present. Appropriate healthcare PPE [...] pain Right (more content not included)... Normal [facility] Comment on above: Result Comment: Elec tronically Signed By: France Day PA-C\.br\Date and Time Signed: 10/17/23 18:53 EDT\.br\Electronically Co-Signed By: Darren Lomax DO.tesha\Date and Time Co-Signed: 10/18/23 10:33 EDT XR [...] mGy = na DAP = na Normal [facility] Consent for Treatmenton 09-27 Consent for Treatment [id number] .00TIFF Normal [facility] Discharge Instructionson Discharge Instructions [id number]# 1.00TIFF Normal [facility] ED Clinical Summaryon 2023 ED Clinical Summary [place] [address] ED Clinical Summary Person Information Name: ALEJANDRA REAL [place] Age: 27 Years : 1995 Sex: Female Language: [place] Citizen PCP: Lorri Ireland CNP Marital Status: Single Phone: [phone] Visit Id: Visit Reason: Buttock kggrfj-wfkc-lhplwgxu; Pelvic pain; ABD PAIN, BUTTOCK PAIN Speciality: [...] 10/17/2023 18:55:06 10/17/2023 18:55:06 10/17/2023 18:55:06 ADDRESS: [address] [place] [address] [place] [phone] PHYS DOC NOTES: MEDICAL INFORMATION: Prescriptions Given: [...] PATIENT EDUCATION INFORMATION: Instructions: Abdominal Pain, Adult, Ieds-mr-Ierp Follow up: With: Address: When: Fatoumata Gooden [address] [place] [address] Business (1) In 3 days 10/20/2023 Comments: Follow-up with Dr. Gooden for further management of care. With: Address: When: Lorri Ireland [address] [facility], [facility], [address] [place] [address] Business (1) In 3 days 10/20/2023 DIAGNOSIS: Chronic female pelvic pain; Other chronic pain Normal [facility] ED Note-Physicianon 10-17-19 ED Note-Physician Basic Information Time Seen: France Day PA-C 10/17/2023 17:32 Chief Complaint patient presents with [...] Diagnostic Results No qualifying data available. Normal [facility] Comment on above: Other Comment: fidelia gamino [...] these instructions at home: Medicines ? Take sxta-ipi-czpyiji and prescription medicines only as told by [...] belly pain for any changes. ? Take sykh-aoe-idqumbr and prescription medicines only as told by [...] Reviewed: 08/23/2019 Elsevier Patient Education ? 2022 [employer] Normal [facility] ED Patient Summaryon 024 ED Patient Summary [place] [address] Patient Discharge Instructions Person Information Name: ALEJANDRA REAL Age: 27 Years Arrival Date: 10/17/2023 17:12:33 Discharge Diagnosis: Chronic female pelvic pain; Other chronic pain Primary Care Physician: Lorri Ireland CNP Provider Information Primary Provider: Darren Lomax DO Advanced Senior Manufacturing Engineer:France Day PA-C The exam and treatment you received in the Emergency Department were for an urgent problem and are not intended as complete care. It is important that you follow up with a doctor, nurse practitioner, or physician?s workers compensation claims assistant for ongoing care. If your symptoms [...] Follow-up Instructions: With: Address: When: Fatoumata Gooden [address] [place] [address] Business (1) In 3 days 10/20/2023 Comments: Follow-up with Dr. Gooden for further management of care. With: Address: When: Lorri Ireland [address] [facility], [address] [place] [phone] Business (1) In 3 days 10/20/2023 In the event that this physician does not participate in your insurance network, please consult with your insurance company to find a nearby participating provider. Patient Education Materials: Abdominal Pain, Adult, Jklq-gu-[id number] A MESSAGE TO ALL PATIENTS REGARDING OPIOIDS PRESCRIPTION OPIOIDS: WHAT YOU NEED TO KNOW Prescription opioids can be used to help relieve kbiwenot-wi-wgbqhp pain and are often prescribed following a [...] Visit www.cdc.gov/emerson (more content not included)... Normal [facility] with [employer] 10-17-19 Bilirubin Ql (U) Negative Normal Negative [facility] Comment on above: Performed By: #### 4 [id number] ####[facility] [id number] [place] [address] Clarity (U) Clear Normal Clear [facility] Comment on above: Performed By: #### 4 [id number] ####[facility] [id number] [place] [address] Color (U) Light-Yellow Normal Yellow [facility] Comment on above: Result Comment: Micr oscopic readings are only performed on those samples that meet specific criteria set forth by [facility]. Performed By: #### 4 [id number] ####[facility] [id number] [place] [address] Glucose Ql (U) Negative Normal Negative [facility] Comment on above: Performed By: #### 4 [id number] ####[facility] [id number] [place] [address] Hemoglobin Auto test strip (U) [Mass/Vol] Negative Normal Negative [facility] Comment on above: Performed By: #### 4 [id number] ####[facility] [id number] [place] [address] Ketones Auto test strip Ql (U) Negative Normal Negative [facility] Comment on above: Performed By: #### 4 [id number] ####[facility] [id number] [place] [address] Leukocyte esterase Auto test strip Ql (U) Negative Normal Negative [facility] Comment on above: Performed By: #### 4 [id number] ####[facility] [id number] [place] [address] Nitrite Auto test strip Ql (U) Negative Normal Negative [facility] Comment on above: Performed By: #### 4 [id number] ####[facility] [address] [place] [address] pH (U) 6.0 [pH] Invalid Interpretation Code 5.0-9.0 [facility] Comment on above: Performed By: #### 4 [id number] ####[place] [address] [place] [address] Protein Ql (U) Negative Normal Negative [facility] Comment on above: Performed By: #### 4 [id number] ####[address] [address] Specific gravity (U) [Rel density] 1.013 Invalid Interpretation Code 1.005-1.030 [facility] Comment on above: Performed By: #### 4 [id number] ####[address] [address] Urobilinogen (U) [Mass/Vol] Negative Normal Negative [facility] Comment on above: Performed By: #### 4 [id number] ####[address] [address] Type of Urine collection method Clean Catch Normal [facility] Comment on above: Performed By: #### 4 [id number] ####[address] [address] URINALYSISOrdered By: SYSTEM SYSTEM on 10-17-2023 Bilirubin Ql (U) Negative Normal Negativemg/ d L [facility] [place] Auto SS Clarity (U) Clear (10/17/23 6:27 PM) Normal Clear [facility] [place] Auto SS Color (U) Light-Yellow 1 (10/17/23 6:27 PM) Normal Yellow [facility] [place] [facility] Auto SS Comment on above: Interpretive Data: M icroscopic readings are only performed on those samples that meet specific criteria set forth by [facility]. Glucose Ql (U) Negative Normal Negativemg/d [...] strip Ql (U) Negative Normal Negativemg/d L [facility] [place]A Auto SS pH (U) 6.0 *NA* (10/17/23 6:27 PM) Invalid Interpretation Code 5.0 - 9.0 [facility] UA Auto SS Protein Ql (U) Negative Normal Negativemg/d L [facility] UA Auto SS Specific gravity (U) [Rel density] 1.013 *NA* (10/17/23 6:27 PM) Invalid Interpretation Code 1.005 - 1.030 [facility] UA Auto SS Urobilinogen (U) [Mass/Vol] Negative Normal Negativemg/d L [facility] [place] Auto SS URINALYSISOrdered By: France Day on 10-17-2023 UA Spec Desc Clean Catch (10/17/23 6:27 PM) Normal [facility] [place]A Auto SS Work Phone: ED Note-Physicianon 10-06-19 ED Note-Physician Basic Information Time Seen: Hank LUKE, Ulisses Wright 10/05/2023 19:30 Chief Complaint Pt arrives with [...] and Complexity of Problems Differential Diagnosis: [] [facility] Data External documents reviewed: [] My [...] day(s), # 10 tab(s), Refills(s) 0, Pharmacy: [facility]/pharmacy #[id number], 160, cm, 10/05/23 19:30:00 EDT, [...] PRN Follow-up With When Contact Information Lorri Beka In 3 days 10/08/2023 EDT 257 [facility], [address] Business (1) Additional Instructions: Call Dr for diagnosis based follow up Attestation Patient seen and evaluated by the physician workers compensation claims assistant. Attending physician was present in the emergency department and supervised care. This visit was performed by both the physician and an APC. I performed all aspects of the MDM as documented. This report was transcribed using voice recognition software. Every effort was made to ensure accuracy, however, inadvertently computerized layer out mistakes may be present. Appropriate healthcare PPE [...] as above. (more content not included)... Normal [facility] Comment on above: Result Comment: Elec tronically Signed By: Ulisses Mckinney PA-C\.br\Date and Time Signed: 10/05/23 22:36 EDT\.br\Electronically Co-Signed By: Bruno Jara DO\.br\Date and Time Co-Signed: 10/06/23 02:45 EDT Consent for Treatmenton Consent for Treatment [id number] .00TIFF [facility] Discharge Instructionson Discharge Instructions [id number] .00TIFF Normal [facility] ED Clinical Summaryon 2023 ED Clinical Summary [address] [address] ED Clinical Summary Person Information Name: ALEJANDRA REAL [place] Age: 27 Years : 1995 Sex: Female Language: [place] Citizen PCP: Lorri Ireland CNP Marital Status: Single Phone: [phone] Visit Id: Visit Reason: Dysuria; Abdominal pain [...] 10/05/2023 20:44:09 10/05/2023 20:44:09 10/05/2023 20:44:09 ADDRESS: [address] [facility] [id number] PHYS DOC NOTES: MEDICAL INFORMATION: Prescriptions Given: Medications to Continue Taking That Have Changed [id number], [address] [place], [place] [id number], [phone] START: tramadol (traMADOL 50 mg Tab) 1 [...] Follow up: With: Address: When: Lorri Ireland [address] [place] [address], [facility] [address] [place] [address] [facility] (1) In 3 days 10/08/2023 Comments: Call Dr for diagnosis based follow up DIAGNOSIS: Chronic abdominal pain; Other chronic pain Normal [facility] ED Patient Education Noteon 10-05-2023 ED Patient Education Note Normal [facility] ED Patient Summaryon 024 ED Patient Summary [address] [address] Patient Discharge Instructions Person Information Name: DAXMEAGANZELDA Russo Age: 27 Years Arrival Date: 10/05/2023 19:20:52 Discharge Diagnosis: Chronic abdominal pain; Other chronic pain Primary Care Physician: Lorri Ireland CNP Provider Information Primary Provider: Bruno Jara DO Advanced Senior Manufacturing Engineer:Ted The exam and treatment you received in the Emergency Department were for an urgent problem and are not intended as complete care. It is important that you follow up with a doctor, nurse practitioner, or physician?s workers compensation claims assistant for ongoing care. If your symptoms [...] Follow-up Instructions: With: Address: When: Lorri Ireland [address] [place] [address], [address] [place] [address] [facility] (1) In 3 days 10/08/2023 Comments: Call Dr for diagnosis based follow up In the event that this physician does not participate in your insurance network, please consult with your insurance company to find a nearby participating provider. Patient Education Materials: A MESSAGE TO ALL PATIENTS REGARDING OPIOIDS PRESCRIPTION OPIOIDS: WHAT YOU NEED TO KNOW Prescription opioids can be used to help relieve zezklvrb-mj-rlcfwe pain and are often prescribed following a [...] be struggling with addiction, tell your health long term care pharmacist and ask for guidance or call [facility] (more content not included)... Normal [facility] SEROLOGYOrdered By: Kyle Mcgill on 10-05-2023 HCG.beta subunit (U) [Moles/Vol] Negative Normal [facility] [place] Man Sero U BetaHcg Qualon 10-05-2023 HCG.beta subunit (U) [Moles/Vol] Negative Normal [facility] Comment on above: Performed By: #### 2 [id number] #### [facility] [address] [place] [address] UA with Cult Rflxon 10-05-19 24 Bilirubin Ql (U) Negative Normal Negative [facility] Comment on above: Performed By: #### 4 [id number] #### [facility] [address] [place] [address] Clarity (U) Clear Normal Clear [facility] Comment on above: Performed By: #### 4 [id number] #### [facility] [address] [place] [address] Color (U) Light-Yellow Normal Yellow [facility] Comment on above: Result Comment: Micr oscopic readings are only performed on those samples that meet specific criteria set forth by [facility]. Performed By: #### 4 [id number] #### [facility] [address] [place] [address] Glucose Ql (U) Negative Normal Negative [facility] Comment on above: Performed By: #### 4 [id number] #### [facility] [address] [place] [address] Hemoglobin Auto test strip (U) [Mass/Vol] Negative Normal Negative [facility] Comment on above: Performed By: #### 4 [id number] #### [facility] [address] [place] [address] Ketones Auto test strip Ql (U) Negative Normal Negative [facility] Comment on above: Performed By: #### 4 [id number] #### [facility] [address] [place] [address] Leukocyte esterase Auto test strip Ql (U) Negative Normal Negative [facility] Comment on above: Performed By: #### 4 [id number] #### [facility] [address] [place] [address] Nitrite Auto test strip Ql (U) Negative Normal Negative [facility] Comment on above: Performed By: #### 4 [id number] #### [facility] [address] [place] [address] pH (U) 6.0 [pH] Invalid Interpretation Code 5.0-9.0 [facility] Comment on above: Performed By: #### 4 [id number] #### [facility] [address] [place] [address] Protein Ql (U) Negative Normal Negative [facility] Comment on above: Performed By: #### 4 [id number] #### [facility] [address] [place] [address] Specific gravity (U) [Rel density] 1.027 Invalid Interpretation Code 1.005-1.030 [facility] Comment on above: Performed By: #### 4 [id number] #### [facility] [address] [place] [address] Urobilinogen (U) [Mass/Vol] Negative Normal Negative [facility] Comment on above: Performed By: #### 4 [id number] #### [facility] [address] [place] [address] Type of Urine collection method Clean Catch Normal [facility] Comment on above: Performed By: #### 4 [id number] #### [facility] [address] [place] [address] URINALYSISOrdered By: SYSTEM SYSTEM on 10-05-2023 Bilirubin Ql (U) Negative Normal Negativemg/ d L [facility] UA Auto SS Clarity (U) Clear (10/05/23 7:52 PM) Normal Clear [facility] UA Auto SS Color (U) Light-Yellow 1 (10/05/23 7:52 PM) Normal Yellow [facility] UA Auto SS Comment on above: Interpretive Data: M icroscopic readings are only performed on those samples that meet specific criteria set forth by [facility]. Glucose Ql (U) Negative Normal Negativemg/d [...] L [facility] UA Auto SS URINALYSISOrdered By: Bruno lawson on 10-05-2023 UA Spec Desc Clean Catch (10/05/23 7:52 PM) Normal [facility] UA Auto SS Work Phone: Consent for Treatmenton Consent for Treatment [id number] .00TIFF Normal [facility] Discharge Instructionson Discharge Instructions [id number] Normal [facility] ED Clinical Summaryon 2023 ED Clinical Summary [place] [id number] ED Clinical Summary Person Information Name: ALEJANDRA REAL [facility] Age: 27 Years : 1995 Sex: Female Language: [place] Citizen PCP: Lorri Ireland CNP Marital Status: Single Phone: [phone] Visit Id: Visit Reason: Pelvic pain; Dysuria; [...] 10/02/2023 07:48:33 10/02/2023 07:48:33 10/02/2023 07:48:33 ADDRESS: [facility] [address] [facility] [id number] PHYS DOC NOTES: MEDICAL INFORMATION: Prescriptions Given: Medications to Continue Taking That Have Changed [facility]/pharmacy #[id number], [address] [place], [place] [id number], [phone] START: tramadol (traMADOL 50 mg Tab) 1 [...] Follow up: With: Address: When: Lorri Ireland [address] [place] [address], [facility], [address] [place] [id number] [employer] (1) In 3 days 10/05/2023 Comments: Return to the emergency room if your pain gets worse, vomiting, fever or any new symptoms. DIAGNOSIS: 1:Dysuria; Chronic abdominal pain; Other chronic pain Normal [facility] ED Note-Physicianon 10-02-19 ED Note-Physician Basic Information [...] and Complexity of Problems Differential Diagnosis: [] [facility] Data External documents reviewed: [] My [...] in h (more content not included)... Normal [facility] Comment on above: Result Comment: Elec tronically Signed By: Arpita Layton, Mary Jane Hurley\.br\Date and Time Signed: 10/02/23 09:15 EDT ED [...] and Complexity of Problems Differential Diagnosis: [] [facility] Data External documents reviewed: [] My [...] in h (more content not included)... Normal [facility] Comment on above: Result Comment: Darrian rutherford Signed By: Vivian Ochoa DO.tesha\Date and Time Signed: 10/02/23 07:17 EDT ED [...] these instructions at home: Medicines ? Take bwnq-uib-tkfiqmg and prescription medicines only as told by [...] your condition for any changes. ? Take kili-acg-tazuwod and prescription medicines only as told by [...] provider. Document Revised: 06/02/2020 Document Reviewed: 08/23/2019 [employer] Patient Education ? 2022 [employer]. Mental and Behavioral Health Chronic Pain, Adult [...] these instructions at home: Medicines ? Take axaq-mkg-rgxhcwp and prescription medicines only as told by your health care provider. ? Ask your health care provider if the medicine prescribed to you: ? Requires you to avoid driving or using machinery. ? Can cause constipation. You may need to take these actions to prevent or treat constipation: ? Drink enough fluid to keep your urine pale yellow. ? Take rjoz-gwp-hytifxo or prescription medicines. ? Eat foods that [...] feel pain. (more content not included)... Normal [facility] ED Patient Summaryon 024 ED Patient Summary [address] [address] Patient Discharge Instructions Person Information Name: ALEJANDRA REAL Age: 27 Years Arrival Date: 10/02/2023 06:22:47 Discharge Diagnosis: 1:Dysuria; Chronic abdominal pain; Other chronic pain Primary Care Physician: Lorri Ireland CNP Provider Information Primary Provider: Vivian Ochoa DO Advanced Senior Manufacturing Engineer:None The exam and treatment you received in the Emergency Department were for an urgent problem and are not intended as complete care. It is important that you follow up with a doctor, nurse practitioner, or physician?s workers compensation claims assistant for ongoing care. If your symptoms [...] Follow-up Instructions: With: Address: When: Lorri Ireland [address] [place] [address], [facility], [address] [place] [address] Business (1) In 3 days 10/05/2023 Comments: [...] opioids can be used to help relieve pnlhpqqp-nf-cpvfpp pain and are often prescribed following a [...] you believe (more content not included)... Normal [facility] SEROLOGYOrdered By: Brii Walters on 10-02-2023 HCG.beta subunit (U) [Moles/Vol] Negative Normal [facility] [place] [place] Sero U BetaHcg Qualon 10-02-2023 HCG.beta subunit (U) [Moles/Vol] Negative Normal [facility] Comment on above: Performed By: #### 2 [id number] #### [facility] [address] [place] [address] UA with Cult Rflxon 10-02-19 24 Bilirubin Ql (U) Negative Normal Negative [facility] Comment on above: Performed By: #### 4 [id number] #### [facility] [address] [place] [address] Clarity (U) Turbid Abnormal Clear [facility] Comment on above: Performed By: #### 4 [id number] #### [facility] [address] [place] [address] Color (U) Yellow Normal Yellow [facility] Comment on above: Result Comment: Micr oscopic readings are only performed on those samples that meet specific criteria set forth by [facility]. Performed By: #### 4 [id number] #### [facility] [address] [place] [address] Epithelial cells.squamous Auto (Urine sed) [#/Area] 0-2 Normal 0-2 [facility] Comment on above: Performed By: #### 4 [id number] #### [facility] [address] [place] [address] Glucose Ql (U) Negative Normal Negative [facility] Comment on above: Performed By: #### 4 [id number] #### [facility] [address] [place] [address] Hemoglobin Auto test strip (U) [Mass/Vol] Negative Normal Negative [facility] Comment on above: Performed By: #### 4 [id number] #### [facility] [address] [place] [address] Ketones Auto test strip Ql (U) Negative Normal Negative [facility] Comment on above: Performed By: #### 4 [id number] #### [facility] [address] [place] [address] Leukocyte esterase Auto test strip Ql (U) Negative Normal Negative [facility] Comment on above: Performed By: #### 4 [id number] #### [facility] [address] [place] [address] Mucus Auto Ql (U) Trace Normal Negative [facility] Comment on above: Performed By: #### 4 [id number] #### [facility] [address] [place] [address] Nitrite Auto test strip Ql (U) Negative Normal Negative [facility] Comment on above: Performed By: #### 4 [id number] #### [facility] [address] [place] [address] pH (U) 7.0 [pH] Invalid Interpretation Code 5.0-9.0 [facility] Comment on above: Performed By: #### 4 [id number] #### [facility] [address] [place] [address] Protein Ql (U) Trace Abnormal Negative [facility] Comment on above: Performed By: #### 4 [id number] #### [facility] [address] [place] [address] RBC Ql (U) 0-3 Normal 0-3 [facility] Comment on above: Performed By: #### 4 [id number] #### [facility] [address] [place] [address] Specific gravity (U) [Rel density] 1.032 Invalid Interpretation Code 1.005-1.030 [facility] Comment on above: Performed By: #### 4 [id number] #### [facility] [address] [place] [id number] Urobilinogen (U) [Mass/Vol] 2 mg/dL Abnormal Negative [facility] Comment on above: Performed By: #### 4 [id number] #### [facility] [address] [place] [id number] WBC Auto (Urine sed) [#/Area] 0-5 Normal 0-5 [facility] Comment on above: Performed By: #### 4 [id number] #### [facility] [address] [place] [address] Type of Urine collection method Clean Catch Normal [facility] Comment on above: Performed By: #### 4 [id number] #### [facility] [address] [place] [address] URINALYSISOrdered By: Michael Walters on 10-02-2023 Bilirubin Ql (U) Negative Normal Negativemg/ d L [facility] [place] UA Auto SS Clarity (U) Turbid *ABN* (10/02/23 6:38 AM) Invalid Interpretation Code Clear [facility] [place]A Auto SS Color (U) Yellow 1 (10/02/23 6:38 AM) Normal Yellow [facility] [place] Auto SS Comment on above: Interpretive Data: M icroscopic readings are only performed on those samples that meet specific criteria set forth by [facility]. Epithelial cells.squamous Auto (Urine sed) [#/Area] [...] FT UA Auto SS Urobilinogen (U) [Mass/Vol] 2 mg/dL Invalid Interpretation Code Negativemg/d L [facility] UA Auto SS WBC Auto (Urine sed) [#/Area] 0-5 graded/HPF Normal 0-5graded/HP F [facility] UA Auto SS URINALYSISOrdered By: Abbi Ochoa on 10-02-2023 UA Spec Desc Clean Catch (10/02/23 6:38 AM) Normal [facility] [place] Auto SS Work Phone: ED Note-Physicianon 09-28-19 ED Note-Physician Basic Information Time Seen: Ulisses Mckinney PA-C. 09/24/2023 15:28 Chief Complaint patient presents with [...] and Complexity of Problems Differential Diagnosis: [] [facility] Data External documents reviewed: [] My [...] day(s), # 9 tab(s), Refills(s) 0, Pharmacy: [facility]/pharmacy #[id number], 160, cm, 09/24/23 15:37:00 EDT, Height/Length Dosing, 65, kg, 09/24/23 15:37:00 EDT, Weight Dosing tramadol, 50 mg = 1 tab(s), Oral, q6hr, PRN for pain, X 3 day(s), # 12 tab(s), Refills(s) 0, Pharmacy: [facility]/pharmacy #[id number], 160, cm, 09/24/23 15:37:00 EDT, [...] Gooden In 3 days 09/27/2023 EDT [address] [place] [address] Business (1) Additional Instructions: Call Dr for diagnosis based follow up Lorri Ireland In 3 days 09/27/2023 EDT 257 [facility], [address] [place] [phone]- Business (1) Additional Instructions: Call for diagnosis based follow up Patient Education Dysuria Attestation Patient seen and evaluated by the physician workers compensation claims assistant. Yvette (more content not included)... Normal [facility] Comment on above: Result Comment: Elec tronically Signed By: Hank LUKE, Ulisses Wright\.br\Date and Time Signed: 09/24/23 16:26 EDT\.br\Electronically Co-Signed By: Suman DC, Guille\.br\Date and Time Co-Signed: 09/28/23 10:51 EDT Automated basophil %Ordered By: Neptali Esquivel on 09-27-2023 Basophils/100 WBC (Bld) 0.2 % Normal . [facility] Comment on above: Performed By: #### C BC, BMP #### [address] Automated basophil countOrde red By: Neptali Esquivel on 09-27-2023 Basophils (Bld) [#/Vol] 0.0 10*3/uL Normal 0.0-0.2 [facility] Comment on above: Result Comment: PERF ORMED BY: [place] [address] PATHOLOGIST MEDICAL POLICY SPECIALIST ALEXANDER SANDERS M.D. Performed By: #### C BC, BMP #### [address] Automated blood monocyte cou ntOrdered By: Neptali Esquivel on 09-27-2023 Monocytes (Bld) [#/Vol] 0.3 10*3/uL Normal 0.0-0.8 [facility] Comment on above: Performed By: #### C BC, BMP #### [address] Automated eosinophil %Ordere d By: Neptali Esquivel on 09-27-2023 Eosinophils/100 WBC (Bld) 0.5 % Normal . [facility] Comment on above: Performed By: #### C BC, BMP #### [address] Automated eosinophil countOr dered By: Neptali Esquivel on 09-27-2023 Eosinophils (Bld) [#/Vol] 0.0 10*3/uL Normal 0.0-0.45 [facility] Comment on above: Performed By: #### C BC, BMP #### [address] Automated monocyte %Ordered By: Neptali Esquivel on 09-27-2023 Monocytes/100 WBC (Bld) 5.1 % Normal . [facility] Comment on above: Performed By: #### C BC, BMP #### [address] Automated neutrophil %Ordere d By: Neptali Esquivel on 09-27-2023 Neutrophils/100 WBC (Bld) 73.0 % Normal . [facility] Comment on above: Performed By: #### C BC, BMP #### [address] Basic Metabolic Panelon 060 Creatinine Clr Calc Pharmacy 93.76 Normal [facility] Comment on above: Result Comment: PERF ORMED BY: [place] [address] PATHOLOGIST MEDICAL POLICY SPECIALIST ALEXANDER SANDERS M.D. Performed By: #### C BC, BMP #### [address] GFR/1.73 sq M.predicted MDRD (S/P/Bld) [Vol rate/Area] mL/min/{1.73_m2} Normal [facility] Comment on above: Performed By: #### C BC, BMP #### [address] Bilirubin Test strip Ql (U)O rdered By: Neptali Esquivel on 09-27-2023 Bilirubin Ql (U) Negative Negative [facility] Calcium [Mass/volume] in Ser um or PlasmaOrdered By: Neptali Esquivel on 09-27-2023 Calcium [Mass/Vol] 9.7 mg/dL Normal 8.6-10.3 [facility] Comment on above: Performed By: #### C BC, BMP #### [address] Carbon dioxide, total [Moles /volume] in Serum or PlasmaOrdered By: Neptali Esquivel on 09-27-2023 CO2 [Moles/Vol] 28.3 mmol/L Normal 21.0-31.0 [facility] Comment on above: Performed By: #### C BC, BMP #### [address] Chloride [Moles/volume] in S gabbie or PlasmaOrdered By: Neptali Esquivel on 09-27-2023 Chloride [Moles/Vol] 107 mmol/L Normal 98-107 [facility] Comment on above: Performed By: #### C BC, BMP #### [address] Color of Urine by AutoOrdere d By: Neptali Esquivel on 09-27-2023 Color (U) Yellow Normal Yellow [facility] Comment on above: Order Comment: Name Collection Type:: Clean-Voided Midstream Performed By: #### U HCG, UA #### [address] Complete Blood Count Auto Di ffon 09-27-2023 Mean Corpuscular HGB Conc 34.0 g/dL Normal 32.0-35.0 [facility] Comment on above: Performed By: #### C BC, BMP #### [address] Monocytes/100 WBC (Bld) 16.50 % Normal 0.00-20.00 T ally [facility] Comment on above: Performed By: #### C BC, BMP #### [address] NRBC% 0.2 /100{WBC} Normal 0-0.5 [facility] Comment on above: Performed By: #### C BC, BMP #### [facility] [address] [place] [address] [facility] Consent for Treatmenton Consent for Treatment [id number]#1 .00TIFF Normal [facility] Creatinine [Mass/volume] in Serum or PlasmaOrdered By: Neptali Esquivel on 09-27-2023 Creatinine [Mass/Vol] 0.81 mg/dL Normal 0.60-1.20 [facility] Comment on above: Performed By: #### C JOY, BMP #### [facility] [address] [place] [id number] [facility] Discharge Instructionson Discharge Instructions [id number]# 1.00TIFF Normal [facility] ED Clinical Summaryon 2023 ED Clinical Summary [place] [id number] ED Clinical Summary Person Information Name: ALEJANDRA REAL [facility] Age: 27 Years : 1995 Sex: Female Language: [place] Citizen PCP: Lorri Ireland CNP Marital Status: Single Phone: [phone] Visit Id: Visit Reason: Dysuria; Pelvic pain; [...] 09/27/2023 10:45:34 09/27/2023 10:45:34 09/27/2023 10:45:34 ADDRESS: [facility] [address] [facility] [id number] [facility] DOC NOTES: MEDICAL INFORMATION: Prescriptions Given: [...] Follow up: With: Address: When: Lorri Ireland [address] [place] [address], [facility], [place] [id number] [employer] (1) In 3 days 09/30/2023 DIAGNOSIS: Chronic pain in female pelvis; Other chronic pain Normal [facility] ED Note-Physicianon 09-27-19 ED Note-Physician Basic Information [...] Ireland In 3 days 09/30/2023 EDT [address] [facility], [address] [place] [id number]- Business (1) Additional Instructions: Patient Education Chronic [...] made to ensure accuracy, however, inadvertently computerized layer out mistakes may be present. Appropriate healthcare PPE was used in evaluating this patient. Problem List/Past Medical History Ongoing Asthma BMI 25.0-25.9,adult Dysuria History of COVID-19 (04-24-2020) Lower abdominal pain Numbness and tingling of [...] No. Smok (more content not included)... Normal [facility] Comment on above: Result Comment: Elec tronically [...] these instructions at home: Medicines ? Take ujln-gww-lmktrra and prescription medicines only as told by your health care provider. ? Ask your health care provider if the medicine prescribed to you: ? Requires you to avoid driving or using machinery. ? Can cause constipation. You may need to take these actions to prevent or treat constipation: ? Drink enough fluid to keep your urine pale yellow. ? Take ctok-rtu-anyzuwu or prescription medicines. ? Eat foods that [...] or: ? Call your local emergency services (330 in the [place] ? Call a suicide crisis helpline, such as the National Suicide Prevention Lifeline at or 931 in the [place] This is open 24 hours a day in the [place] ? Text the Crisis Text Line at 843604 (in the [place] Summary ? Chronic pain is a type of pain that lasts or keeps coming back for at least 3?6 months. ? Chronic pain may be related to an illness, injury, or other health condition. Sometimes, the cause of chronic pain is not known. ? Treatment depends on the cause and severity of your pain. ? (more content not included)... Normal [facility] ED Patient Summaryon 024 ED Patient Summary [address] [address] Patient Discharge Instructions Person Information Name: ALEJANDRA REAL Age: 27 Years Arrival Date: 09/27/2023 10:29:45 Discharge Diagnosis: Chronic pain in female pelvis; Other chronic pain Primary Care Physician: Lorri Ireland CNP Provider Information Primary Provider: Darren Lomax DO Advanced Senior Manufacturing Engineer:Sy Pickard PA-C The exam and treatment you received in the Emergency Department were for an urgent problem and are not intended as complete care. It is important that you follow up with a doctor, nurse practitioner, or physician?s workers compensation claims assistant for ongoing care. If your symptoms [...] Follow-up Instructions: With: Address: When: Lorri Ireland [address] [place] [address], [facility], [address] [place] [address] Business (1) In 3 days 09/30/2023 In the event that this physician does not participate in your insurance network, please consult with your insurance company to find a nearby participating provider. Patient Education Materials: Chronic Pain, Adult A MESSAGE TO ALL PATIENTS REGARDING OPIOIDS PRESCRIPTION OPIOIDS: WHAT YOU NEED TO KNOW Prescription opioids can be used to help relieve kvomoiaq-mi-acnekd pain and are often prescribed following a [...] be struggling with addiction, tell your health long term care pharmacist and ask for guidance or call [facility] (more content not included)... Normal [facility] Erythrocyte distribution wid th [Ratio] by Automated countOrdered By: Neptali Esquivel on 09-27-2023 Erythrocyte distribution width (RBC) [Ratio] 13.5 % Normal 11.9-15.3 [facility] Comment on above: Performed By: #### C BC, BMP #### [facility] [address] [place] [address] [place] Erythrocytes [#/volume] in B lood by Automated countOrdered By: Neptali Esquivel on 09-27-2023 RBC (Bld) [#/Vol] 4.52 10*6/uL Normal 3.60-5.00 [facility] Comment on above: Performed By: #### C BC, BMP #### [facility] [address] [place] [address] [place] Glucose [Mass/volume] in Ser um or PlasmaOrdered By: Neptali Esquivel on 09-27-2023 Glucose [Mass/Vol] 96 mg/dL Normal 70-100 [facility] Comment on above: ADA recommended refe rence rangeRandom Glucose Reference Range is dependent on time and content of last meal. Glucose of more than 200 mg/dL in a nonstressed, ambulatory subject supports the diagnosis of Diabetes Mellitus. Result Comment: [place] om Glucose Reference Range is dependent on time and content of last meal. Glucose of more than 200 mg/dL in a nonstressed, ambulatory subject supports the diagnosis of Diabetes Mellitus. ADA recommended reference range Performed By: #### C BC, BMP #### [place] [id number] [place] HCG ( test) IA.rapi d Ql (U)Ordered By: Neptali Esquivel on 09-27-2023 HCG ( test) Ql (U) Negative [facility] HCG,Urineon 09-27-2023 Beta HCG ( test) Ql (U) Negative Normal [facility] Comment on above: Order Comment: Name Collection Type:: Clean-Voided Midstream Result Comment: PERF ORMED BY: [place] [address] PATHOLOGIST MEDICAL POLICY SPECIALIST ALEXANDER SANDERS M.D. Performed By: #### U HCG, UA #### [address] Hematocrit [Volume Fraction] of Blood by Automated countOrdered By: Neptali Esquivel on 09-27-2023 Hematocrit (Bld) [Volume fraction] 40.3 % Normal 34.0-46.4 [facility] Comment on above: Performed By: #### C BC, BMP #### [address] Hemoglobin [Mass/volume] in BloodOrdered By: Neptali Esquivel on 09-27-2023 Hemoglobin (Bld) [Mass/Vol] 13.7 g/dL Normal 11.8-15.4 [facility] Comment on above: Performed By: #### C BC, BMP #### [address] Ketones Auto test strip (U) [Mass/Vol]Ordered By: Neptali Esquivel on 09-27-2023 Ketones (U) [Mass/Vol] Negative Negative [facility] Leukocytes [#/volume] correc rosy for nucleated erythrocytes in Blood by Automated counOrdered By: Neptali Esquivel on 09-27-2023 WBC corrected for nucl RBC Auto (Bld) [#/Vol] 6.7 10*3/uL 3.8-11.6 [facility] Leukocytes [#/volume] in Blo od by Automated countOrdered By: Neptali Esquivel on 09-27-2023 WBC (Bld) [#/Vol] 6.7 10*3/uL Normal 3.8-11.6 [facility] Comment on above: Performed By: #### C BC, BMP #### [facility] [address] Lymphocytes [#/volume] in Bl ood by Automated countOrdered By: Neptali Esquivel on 09-27-2023 Lymphocytes (Bld) [#/Vol] 1.4 10*3/uL Normal 1.00-4.8 [facility] Comment on above: Performed By: #### C BC, BMP #### [address] Lymphocytes/100 leukocytes i n Blood by Automated countOrdered By: Neptali Esquivel on 09-27-2023 Lymphocytes/100 WBC (Bld) 21.2 % Normal . [facility] Comment on above: Performed By: #### C JOY, BMP #### [address] MCH [Entitic mass] by Automa rosy countOrdered By: Neptali Esquivel on 09-27-2023 MCH (RBC) [Entitic mass] 30.3 pg Normal 24.7-34.3 [facility] Comment on above: Performed By: #### C BC, BMP #### [address] MCHC Auto (RBC) [Mass/Vol]Or dered By: Neptali Esquivel on 09-27-2023 MCHC (RBC) [Mass/Vol] 34.0 g/dL 32.0-35.0 [facility] MCV [Entitic volume] by Auto mated countOrdered By: Neptali Esquivel on 09-27-2023 MCV (RBC) [Entitic vol] 89.1 fL Normal 80-100 [facility] Comment on above: Performed By: #### C BC, BMP #### [address] Monocyte distribution width [Entitic volume] in Blood by AutomatedOrdered By: Neptali Esquivel on 09-27-2023 Monocyte distribution width Auto (Bld) [Entitic vol] 16.50 % 0.00-20.00 [facility] Neutrophils [#/volume] in Bl ood by Automated countOrdered By: Neptali Esquivel on 09-27-2023 Neutrophils (Bld) [#/Vol] 4.9 10*3/uL Normal 1.8-7.7 [facility] Comment on above: Performed By: #### C JOY, BMP #### [address] Nitrite Test strip Ql (U)Ord ered By: Neptali Esquivel on 09-27-2023 Nitrite Ql (U) Negative Negative [facility] No Panel InformationOrdered By: Neptali Esquivel on 09-27-2023 Estimated GFR (CKD-EPI) > 60.0 mL/Min [facility] Creatinine Clearance (Chem 93.76 [facility] Nucleated erythrocytes [Pres ence] in Blood by Automated countOrdered By: Neptali Esquivel on 09-27-2023 Nucleated RBC Auto Ql (Bld) 0.2 /100{WBC} 0-0.5 [facility] Platelet mean volume [Entiti c volume] in Blood by Automated countOrdered By: Neptali Esquivel on 09-27-2023 Platelet mean volume (Bld) [Entitic vol] 7.5 fL Normal 6.3-10.7 [facility] Comment on above: Performed By: #### C JOY, BMP #### [address] Platelets [#/volume] in Bloo d by Automated countOrdered By: Neptali Esquivel on 09-27-2023 Platelets (Bld) [#/Vol] 375 10*3/uL Normal 150-450 [facility] Comment on above: Performed By: #### C JOY, BMP #### [place] [address] [place] Potassium [Moles/volume] in Serum or PlasmaOrdered By: Neptali Esquivel on 09-27-2023 Potassium [Moles/Vol] 3.6 mmol/L Normal 3.5-5.1 [facility] Comment on above: Performed By: #### C JOY, BMP #### [address] Protein Auto test strip (U) [Mass/Vol]Ordered By: Neptali Esquivel on 09-27-2023 Protein (U) [Mass/Vol] Negative Negative [facility] Serum or plasma anion gap de terminationOrdered By: Neptali Esquivel on 09-27-2023 Anion gap [Moles/Vol] 8.3 mmol/L Normal 6.0-15.0 [facility] Comment on above: Performed By: #### C BC, BMP #### [address] Sodium [Moles/volume] in Ser um or PlasmaOrdered By: Neptali Esquivel on 09-27-2023 Sodium [Moles/Vol] 140 mmol/L Normal 136-145 [facility] Comment on above: Performed By: #### C JOY, BMP #### [address] Specific gravity Auto test s trip (U) [Rel density]Ordered By: Neptali Esquivel on 09-27-2023 Specific gravity (U) [Rel density] 1.007 1.001-1.030 [facility] Urea nitrogen [Mass/volume] in Serum or PlasmaOrdered By: Neptali Esquivel on 09-27-2023 Urea nitrogen [Mass/Vol] 7 mg/dL Normal 7-25 [facility] Comment on above: Performed By: #### C BC, BMP #### [place] [address] [place] Urinalysison 09-27-2023 Appearance (U) Clear Normal Clear [facility] Comment on above: Order Comment: Name Collection Type:: Clean-Voided Midstream Performed By: #### U HCG, UA #### [address] Bilirubin,Urine Negative Normal Negative [facility] Comment on above: Order Comment: Name Collection Type:: Clean-Voided Midstream Performed By: #### U HCG, UA #### [address] Glucose Ql (U) Normal Normal Normal [facility] Comment on above: Order Comment: Name Collection Type:: Clean-Voided Midstream Performed By: #### U HCG, UA #### [place] [address] [place] Ketones Ql (U) Negative Normal Negative [facility] Comment on above: Order Comment: Name Collection Type:: Clean-Voided Midstream Performed By: #### U HCG, UA #### [address] Leukocyte esterase Test strip Ql (U) Negative Normal Negative [facility] Comment on above: Order Comment: Name Collection Type:: Clean-Voided Midstream Performed By: #### U HCG, UA #### [place] [address] [place] Nitrite,Urine Negative Normal Negative [facility] Comment on above: Order Comment: Name Collection Type:: Clean-Voided Midstream Performed By: #### U HCG, UA #### [address] Occult Blood,Urine Negative Normal Negative [facility] Comment on above: Order Comment: Name Collection Type:: Clean-Voided Midstream Performed By: #### U HCG, UA #### [address] Protein,Urine Negative Normal Negative [facility] Comment on above: Order Comment: Name Collection Type:: Clean-Voided Midstream Performed By: #### U HCG, UA #### [address] Specificy Stephen,Urine 1.007 Normal 1.001-1.030 [facility] Comment on above: Order Comment: Name Collection Type:: Clean-Voided Midstream Performed By: #### U HCG, UA #### [place] [address] [place] Urobilinogen,Urine Normal Normal Normal [facility] Comment on above: Order Comment: Name Collection Type:: Clean-Voided Midstream Performed By: #### U HCG, UA #### [place] [address] [place] Urine clarity by refractomet ry automatedOrdered By: Neptali Esquivel on 09-27-2023 Clarity Refractometry automated (U) Clear Clear [facility] Urine glucose measurement by automated test strip (mass/volume)Ordered By: Neptali Esquivel on 09-27-2023 Glucose Auto test strip (U) [Mass/Vol] Normal mg/dL Normal [facility] Urine hemoglobin detection b y automated test stripOrdered By: Neptali Esquivel on 09-27-2023 Hemoglobin Auto test strip Ql (U) Negative Negative [facility] Urine leukocyte esterase det ection by automated test stripOrdered By: Neptali Esquivel on 09-27-2023 Leukocyte esterase Auto test strip Ql (U) Negative Negative [facility] Urine pH measurement by auto mated test stripOrdered By: Neptali Esquivel on 09-27-2023 pH (U) 7.0 [pH] Normal 5.0-9.0 [facility] Comment on above: Order Comment: Name Collection Type:: Clean-Voided Midstream Performed By: #### U HCG, UA #### [address] Urobilinogen Auto test strip (U) [Mass/Vol]Ordered By: Neptali Esquivel on 09-27-2023 Urobilinogen (U) [Mass/Vol] Normal mg/dL Normal [facility] Consent for Treatmenton 08-28 Consent for Treatment [id number]#1 .00TIFF Normal [facility] Discharge Instructionson Discharge Instructions [id number]# 1.00TIFF Normal [facility] ED Clinical Summaryon 2023 ED Clinical Summary [place] [id number] ED Clinical Summary Person Information Name: ALEJANDRA REAL [place] Age: 27 Years : 1995 Sex: Female Language: [place] Citizen PCP: Lorri Ireland CNP Marital Status: Single Phone: [phone] Visit Id: Visit Reason: Dysuria; Abdominal pain; [...] 16:26:05 ADDRESS: [address] [place] [id number] PHYS DOC NOTES: MEDICAL INFORMATION: Prescriptions Given: Medications to Continue Taking That Have Changed [id number], [address] [place], [place] [id number], [phone] START: phenazopyridine (Pyridium 200 mg Tab) 1 [...] Follow up: With: Address: When: Lorri Ireland [address] [place] [address], [facility], [address] [place] [address] Business (1) In 3 days 09/29/2023 DIAGNOSIS: 1:Dysuria Normal [facility] ED Note-Physicianon 09-26-19 ED Note-Physician Basic Information [...] chronic pelvic pain secondary to pelvic congestion. MDM Data External documents reviewed: OARRS Report My [...] day(s), # 21 tab(s), Refills(s) 0, Pharmacy: [id number], 160, cm, 09/26/23 15:23:00 EDT, Height/Length Dosing, 65, kg, 09/26/23 15:23:00 EDT, Weight Dosing U Beta Hcg Qual UA with Cult Rflx Disposition Plan Patient Discharge Condition Stable Discharge Disposition Home Discharge Prescription List Prescriptions Pyridium 200 mg Tab, 200 mg= 1 tab(s), Oral, TID Follow-up With When Contact Information Lorri Ireland In 3 days 09/29/2023 EDT [address] [facility], [address] [place] [phone] Business (1) Additional Instructions: Patient Education Dysuria Attestation I performed a substantive part of the MDM during the patient?s E/M visit. I personally made or a (more content not included)... Normal [facility] Comment on above: Result Comment: Elec tronically [...] these instructions at home: Medicines ? Take zhwh-hiz-vrssinm and prescription medicines only as told by [...] provider. Document Revised: 11/24/2020 Document Reviewed: 11/24/2020 [employer] Patient Education ? 2022 [employer] Normal [facility] ED Patient Summaryon 024 ED Patient Summary [place] [id number] Patient Discharge Instructions Person Information Name: ALEJANDRA REAL Age: 27 Years Arrival Date: 09/26/2023 15:06:51 Discharge Diagnosis: 1:Dysuria Primary Care Physician: Lorri Ireland CNP Provider Information Primary Provider: Darren Lomax DO Advanced Senior Manufacturing Engineer:None The exam and treatment you received in the Emergency Department were for an urgent problem and are not intended as complete care. It is important that you follow up with a doctor, nurse practitioner, or physician?s workers compensation claims assistant for ongoing care. If your symptoms [...] Follow-up Instructions: With: Address: When: Lorri Beka [address] [place] [address], [address] [place] [id number] [employer] ([employer] In 3 days 09/29/2023 In the event that this physician does not participate in your insurance network, please consult with your insurance company to find a nearby participating provider. Patient Education Materials: Dysuria A MESSAGE TO ALL PATIENTS REGARDING OPIOIDS PRESCRIPTION OPIOIDS: WHAT YOU NEED TO KNOW Prescription opioids can be used to help relieve wzynditc-bs-mmkpnd pain and are often prescribed following a [...] be struggling with addiction, tell your health long term care pharmacist and ask for guidance or call [facility] National Helpline at 1-359-862-HELP. v Source: Department of Health and (more content not included)... Normal [facility] SEROLOGYOrdered By: Della Johnston on 09-26-2023 HCG.beta subunit (U) [Moles/Vol] Negative Normal [facility] [place] Sero U BetaHcg Qualon 09-26-2023 HCG.beta subunit (U) [Moles/Vol] Negative Normal [facility] Comment on above: Performed By: #### 2 [id number] #### [facility] [address] [place] [address] UA with Cult Rflxon 09-26-19 24 Bilirubin Ql (U) Negative Normal Negative [facility] Comment on above: Performed By: #### 4 [id number] ####[place] [address] [place] [address] Clarity (U) Clear Normal Clear [facility] Comment on above: Performed By: #### 4 [id number] ####[place] [address] [place] [address] Color (U) Colorless Abnormal Yellow [facility] Comment on above: Result Comment: Micr oscopic readings are only performed on those samples that meet specific criteria set forth by [facility]. Performed By: #### 4 [id number] ####[address] [address] Glucose Ql (U) Negative Normal Negative [facility] Comment on above: Performed By: #### 4 [id number] ####[address] [address] Hemoglobin Auto test strip (U) [Mass/Vol] Negative Normal Negative [facility] Comment on above: Performed By: #### 4 [id number] ####[address] [address] Ketones Auto test strip Ql (U) Negative Normal Negative [facility] Comment on above: Performed By: #### 4 [id number] ####[address] [address] Leukocyte esterase Auto test strip Ql (U) Negative Normal Negative [facility] Comment on above: Performed By: #### 4 [id number] ####[facility] [address] [place] [address] Nitrite Auto test strip Ql (U) Negative Normal Negative [facility] Comment on above: Performed By: #### 4 [id number] ####[place] [address] [place] [address] pH (U) 7.5 [pH] Invalid Interpretation Code 5.0-9.0 [facility] Comment on above: Performed By: #### 4 [id number] ####[facility] [address] [place] [address] Protein Ql (U) Negative Normal Negative [facility] Comment on above: Performed By: #### 4 [id number] ####[facility] [address] [place] [address] Specific gravity (U) [Rel density] 1.008 Invalid Interpretation Code 1.005-1.030 [facility] Comment on above: Performed By: #### 4 [id number] ####[facility] [address] [place] [address] Urobilinogen (U) [Mass/Vol] Negative Normal Negative [facility] Comment on above: Performed By: #### 4 [id number] ####[address] [address] Type of Urine collection method Clean Catch Normal [facility] Comment on above: Performed By: #### 4 [id number] ####[facility] [address] [place] [address] URINALYSISOrdered By: SYSTEM SYSTEM on 09-26-2023 Bilirubin Ql (U) Negative Normal Negativemg/ d L [facility] UA Auto SS Clarity (U) Clear (09/26/23 3:25 PM) Normal Clear [facility] UA Auto SS Color (U) Colorless 1 *ABN* (09/26/23 3:25 PM) Invalid Interpretation Code Yellow [facility] UA Auto SS Comment on above: Interpretive Data: M icroscopic readings are only performed on those samples that meet specific criteria set forth by [facility]. Glucose Ql (U) Negative Normal Negativemg/d [...] L FT UA Auto SS pH (U) 7.5 *NA* (09/26/23 3:25 PM) Invalid Interpretation Code 5.0 - 9.0 [facility] [place] UA Auto SS Protein Ql (U) Negative Normal Negativemg/d L FT UA Auto SS Specific gravity (U) [Rel density] 1.008 *NA* (09/26/23 3:25 PM) Invalid Interpretation Code 1.005 - 1.030 FT UA Auto SS Urobilinogen (U) [Mass/Vol] Negative Normal Negativemg/d L FT UA Auto SS URINALYSISOrdered By: Enrike Donis on 09-26-2023 UA Spec Desc Clean Catch (09/26/23 3:25 PM) Normal [facility] [place] [place] UA Auto SS Work Phone: Insurance Correspondenceon 0 09-25-2023 Insurance Correspondence [id number] #1.00TIFF Normal [facility] Consent for Treatmenton 08-27 Consent for Treatment [id number]#1 .00TIFF Normal [facility] Discharge Instructionson Discharge Instructions [id number]# 1.00TIFF Normal [facility] ED Clinical Summaryon 2023 ED Clinical Summary [address] [address] ED Clinical Summary Person Information Name: ALEJANDRA REAL [facility] Age: 27 Years : 1995 Sex: Female Language: [place] Citizen PCP: Lorri Ireland CNP Marital Status: Single Phone: [phone] Visit Id: Visit Reason: Dysuria; Abdominal pain; [...] 16:32:50 ADDRESS: [address] [facility] [id number] PHYS DOC NOTES: MEDICAL INFORMATION: Prescriptions Given: New Medications [id number], [address], [place] [id number], [phone] phenazopyridine (Pyridium 100 mg Tab) 1 Tablets By Mouth 3 times a day for 3 Days. Refills: 0. Medications to Continue Taking That Have Changed [id number], [address], [place] [id number], [phone] START: tramadol (traMADOL 50 mg Tab) 1 [...] up: With: Address: When: Fatoumata Gooden [address] [place] [address] Business (1) In 3 days 09/27/2023 Comments: Call Dr for diagnosis based follow up With: Address: When: Lorri Ireland [address] [facility], [address] [place] [address] Business (1) In 3 days 09/27/2023 Comments: Call Dr for diagnosis based follow up DIAGNOSIS: Dysuria Normal [facility] ED Patient Education Noteon 09-24-2023 ED Patient [...] these instructions at home: Medicines ? Take dgsf-izm-nkklghv and prescription medicines only as told by [...] Reviewed: 11/24/2020 Elsevier Patient Education ? 2022 [employer] Normal [facility] ED Patient Summaryon 024 ED Patient Summary [place] [address] Patient Discharge Instructions Person Information Name: ALEJANDRA REAL Age: 27 Years Arrival Date: 09/24/2023 15:26:09 Discharge Diagnosis: Dysuria Primary Care Physician: Lorri Ireland CNP Provider Information Primary Provider: Advanced Senior Manufacturing Engineer:None The exam and treatment you received in the Emergency Department were for an urgent problem and are not intended as complete care. It is important that you follow up with a doctor, nurse practitioner, or physician?s workers compensation claims assistant for ongoing care. If your symptoms [...] Follow-up Instructions: With: Address: When: Fatoumata Gooden [address] [place] [address] [facility] () In 3 days 09/27/2023 Comments: Call Dr for diagnosis based follow up With: Address: When: Lorri Ireland [address] [place] [address], [address] [place] [phone] [facility] () In 3 days 09/27/2023 Comments: Call Dr for diagnosis based follow up In the event that this physician does not participate in your insurance network, please consult with your insurance company to find a nearby participating provider. Patient Education Materials: Dysuria A MESSAGE TO ALL PATIENTS REGARDING OPIOIDS PRESCRIPTION OPIOIDS: WHAT YOU NEED TO KNOW Prescription opioids can be used to help relieve einjhfft-wl-bkvrvs pain and are often prescribed following a [...] If yo (more content not included)... Normal [facility] UA with Cult Rflxon 09-24-19 24 Bilirubin Ql (U) Negative Normal Negative [facility] Comment on above: Performed By: #### 4 [id number] #### [facility] [address] [place] [address] Clarity (U) Clear Normal Clear [facility] Comment on above: Performed By: #### 4 [id number] #### [facility] [address] [place] [address] Color (U) Light-Yellow Normal Yellow [facility] Comment on above: Result Comment: Micr oscopic readings are only performed on those samples that meet specific criteria set forth by [facility]. Performed By: #### 4 [id number] #### [facility] [address] [place] [address] Glucose Ql (U) Negative Normal Negative [facility] Comment on above: Performed By: #### 4 [id number] #### [facility] [address] [place] [address] Hemoglobin Auto test strip (U) [Mass/Vol] Trace Abnormal Negative [facility] Comment on above: Performed By: #### 4 [id number] #### [facility] [address] [place] [address] Ketones Auto test strip Ql (U) Negative Normal Negative [facility] Comment on above: Performed By: #### 4 [id number] #### [facility] [address] [place] [address] Leukocyte esterase Auto test strip Ql (U) Negative Normal Negative [facility] Comment on above: Performed By: #### 4 [id number] #### [facility] [address] [place] [address] Nitrite Auto test strip Ql (U) Negative Normal Negative [facility] Comment on above: Performed By: #### 4 [id number] #### [facility] [address] [place] [address] pH (U) 6.0 [pH] Invalid Interpretation Code 5.0-9.0 [facility] Comment on above: Performed By: #### 4 [id number] #### [facility] [address] [place] [address] Protein Ql (U) Negative Normal Negative [facility] Comment on above: Performed By: #### 4 [id number] #### [facility] [address] [place] [address] Specific gravity (U) [Rel density] 1.014 Invalid Interpretation Code 1.005-1.030 [facility] Comment on above: Performed By: #### 4 [id number] #### [facility] [address] [place] [address] Urobilinogen (U) [Mass/Vol] Negative Normal Negative [facility] Comment on above: Performed By: #### 4 [id number] #### [facility] [address] [place] [address] Type of Urine collection method Clean Catch Normal [facility] Comment on above: Performed By: #### 4 [id number] #### [facility] [address] [place] [address] URINALYSISOrdered By: SYSTEM SYSTEM on 09-24-2023 Bilirubin Ql (U) Negative Normal Negativemg/ d L [facility] [place]A Auto SS Clarity (U) Clear (09/24/23 4:02 PM) Normal Clear [facility] [place] [place] UA Auto SS Color (U) Light-Yellow 1 (09/24/23 4:02 PM) Normal Yellow [facility] [place] [place] UA Auto SS Comment on above: Interpretive Data: M icroscopic readings are only performed on those samples that meet specific criteria set forth by [facility]. Glucose Ql (U) Negative Normal Negativemg/d L [facility] [place] UA Auto SS Hemoglobin Auto test strip (U) [Mass/Vol] Trace mg/dL Invalid Interpretation Code Negativemg/d L [facility] [place] UA Auto SS Ketones Auto test strip Ql (U) Negative Normal Negativemg/d L [facility] [place] UA Auto SS Leukocyte esterase Auto test strip Ql (U) Negative Normal NegativeLeu/ uL [facility] [place] UA Auto SS Nitrite Auto test strip Ql (U) Negative Normal Negativemg/d L [facility] [place] UA Auto SS pH (U) 6.0 *NA* (09/24/23 4:02 PM) Invalid Interpretation Code 5.0 - 9.0 [facility] [place] [place]A Auto SS Protein Ql (U) Negative Normal Negativemg/d L [facility] [place] UA Auto SS Specific gravity (U) [Rel density] 1.014 *NA* (09/24/23 4:02 PM) Invalid Interpretation Code 1.005 - 1.030 [facility] [place] UA Auto SS Urobilinogen (U) [Mass/Vol] Negative Normal Negativemg/d L [facility] [place] UA Auto SS URINALYSISOrdered By: Ulisses hamptonrson on 09-24-2023 UA Spec Desc Clean Catch (09/24/23 4:02 PM) Normal [facility] UA Auto SS Work Phone: B hCG Qualon 09-20-2023 Beta HCG ( test) Ql Negative Normal [facility] Comment on above: Performed By: #### 2 [id number] #### [facility] [address] [place] [address] BMPOrdered By: SYSTEM SYSTEM on 09-20-2023 Anion gap [Moles/Vol] 10 mmol/L Normal 6-16 Rem isol Chem Comment on above: Performed By: #### 2 [id number] #### [facility] [address] [place] [address] Calcium [Mass/Vol] 9.0 mg/dL Normal 8.9-11.1 Remiso l Chem Comment on above: Performed By: #### 2 [id number] #### [facility] [address] [place] [address] Chloride [Moles/Vol] 107 mmol/L Normal 101-111 [facility] Comment on above: Performed By: #### 2 [id number] #### [facility] [address] [place] [address] CO2 [Moles/Vol] 27 mmol/L Normal 21-31 Remisol C hem Comment on above: Performed By: #### 2 [id number] #### [facility] [address] [place] [address] Creatinine [Mass/Vol] 0.8 mg/dL Normal 0.5-1.3 Rem isol Chem Comment on above: Performed By: #### 2 [id number] #### [facility] [address] [place] [address] Glucose [Mass/Vol] 116 mg/dL Normal 55-199 Remiso l Chem Comment on above: Performed By: #### 2 [id number] #### [facility] [address] [place] [address] Potassium [Moles/Vol] 4.0 mmol/L Normal 3.5-5.3 Rem isol Chem Comment on above: Performed By: #### 2 [id number] #### [facility] [address] [place] [address] Sodium [Moles/Vol] 140 mmol/L Normal 135-145 Remiso l Chem Comment on above: Performed By: #### 2 [id number] #### [facility] [address] [place] [address] Urea nitrogen [Mass/Vol] 10 mg/dL Normal 5-21 Rem[facility] Chem Comment on above: Performed By: #### 2 [id number] #### [facility] [address] [place] [address] BMPon 09-20-2023 Urea nitrogen/Creatinine [Mass ratio] 12 No Units Normal 10-20 [facility] Comment on above: Performed By: #### 2 [id number] #### [facility] [address] [place] [address] CBC w/ Auto DiffOrdered By: SYSTEM SYSTEM on 09-20-2023 Basophils/100 WBC (Bld) 0.2 % Normal 0.0-2.0 R emisol Heme Comment on above: Performed By: #### 2 [id number] #### [facility] [address] [place] [address] Basophils/Leukocytes Auto (Bld) [Pure # fraction] 0.0 E9/L Normal 0.0-0.2 [facility] Heme Comment on above: Performed By: #### 2 [id number] #### [facility] [address] [place] [address] Eosinophils (Bld) [#/Vol] 0.1 E9/L Normal 0.0-0.5 [facility] Hem[facility] Comment on above: Performed By: #### 2 [id number] #### [facility] [address] [place] [address] Eosinophils/100 WBC (Bld) 1.6 % Normal 0.0-8.0 [facility] Comment on above: Performed By: #### 2 735331 #### [facility] [address] [place] [address] Erythrocyte distribution width (RBC) [Ratio] 13.5 % Normal 10.9-14.2 [facility] Comment on above: Performed By: #### 2 [id number] #### [facility] [address] [place] [address] Hematocrit (Bld) [Volume fraction] 37.8 % Normal 34.0-46.0 [facility] Comment on above: Performed By: #### 2 [id number] #### [facility] [address] [place] [address] Hemoglobin (Bld) [Mass/Vol] 13.7 g/dL Normal 12.0-16.0 [facility] Comment on above: Performed By: #### 2 580243 #### [facility] [address] [place] [address] Lymphocytes (Bld) [#/Vol] 1.8 E9/L Normal 1.0-4.0 [facility] Comment on above: Performed By: #### 2 149571 #### [facility] [address] [place] [address] Lymphocytes/100 WBC (Bld) 23.9 % Normal 14.0-50.0 [facility] Comment on above: Performed By: #### 2 480855 #### [facility] [address] [place] [address] MCH (RBC) [Entitic mass] 32.0 pg Normal 27.0-34.0 [facility] Comment on above: Performed By: #### 2 930528 #### [facility] [address] [place] [address] MCHC (RBC) [Mass/Vol] 36.1 g/dL High 31.4-36.0 Rem isol Heme Comment on above: Performed By: #### 2 048520 #### [facility] [address] [place] [address] MCV (RBC) [Entitic vol] 88.8 fL Normal 80.0-100.0 R emisol Heme Comment on above: Performed By: #### 2 966285 #### [facility] [address] [place] [address] Monocytes (Bld) [#/Vol] 0.6 E9/L Normal 0.2-1.0 R emisol Heme Comment on above: Performed By: #### 2 032136 #### [facility] [address] [place] [address] Neutrophils (Bld) [#/Vol] 5.0 E9/L Normal 2.0-7.5 [facility] Comment on above: Performed By: #### 2 296906 #### [facility] [address] [place] [address] Neutrophils/100 WBC (Bld) 66.8 % Normal 36.0-75.0 [facility] Comment on above: Performed By: #### 2 913881 #### [facility] [address] [place] [address] Platelet 409.0 E9/L Normal 150.0-500.0 [facility] Comment on above: Performed By: #### 2 [id number] #### [facility] [address] [place] [address] Platelet mean volume (Bld) [Entitic vol] 7.0 fL Normal 6.4-10.8 [facility] Comment on above: Performed By: #### 2 097341 #### [facility] [address] [place] [address] RBC (Bld) [#/Vol] 4.3 E12/L Normal 4.3-5.9 [facility] Comment on above: Performed By: #### 2 227004 #### [facility] [address] [place] [address] WBC corrected for nucl RBC Auto (Bld) [#/Vol] 7.5 E9/L Normal 4.0-11.0 Remisol H jessica Comment on above: Performed By: #### 2 570604 #### [facility] [address] [place] [address] CHEMISTRYOrdered By: SYSTEM SYSTEM on 09-20-2023 Albumin/Globulin [...] Treatmenton 08-27 Consent for Treatment [id number] .00TIFF Normal [facility] Discharge Instructionson Discharge Instructions [id number]# 1.00TIFF Normal [facility] ED Clinical Summaryon 2023 ED Clinical Summary [address] [address] ED Clinical Summary Person Information Name: ALEJANDRA REAL [place] Age: 27 Years : 1995 Sex: Female Language: [place] Citizen PCP: Lorri Ireland CNP Marital Status: Single Phone: [phone] Visit Id: Visit Reason: Dysuria; Nausea; Abdominal [...] 09/20/2023 15:32:50 09/20/2023 15:32:50 09/20/2023 15:32:50 ADDRESS: [address] [facility] [id number] PHYS DOC NOTES: MEDICAL INFORMATION: Prescriptions Given: Medications to Continue Taking That Have Changed [id number], [address], [place] [id number], [phone] START: ondansetron (ondansetron 4 mg Dis Tab) [...] Follow up: With: Address: When: Lorri Ireland [address] [place] [address], [facility], [address] [place] [phone] Business (1) In 3 days DIAGNOSIS: Abdominal pain; Nausea Normal [facility] ED Note-Physicianon 09-20-19 ED Note-Physician Basic Information Time Seen: Hugo MARIA Justo 09/20/2023 12:41 Chief Complaint c/o worsening nausea [...] day(s), # 12 tab(s), Refills(s) 0, Pharmacy: [facility] #[id number], 160, cm, 09/20/23 12:38:00 EDT, Height/Length Dosing, 65.1, kg, 09/20/23 12:38:00 EDT, Weight Dosing Nausea (R11.0: Nausea) Orders: ondansetron, 4 mg = 1 tab(s), Oral, q6hr, X 3 day(s), # 10 tab(s), Refills(s) 0, Pharmacy: [id number], 160, cm, 09/20/23 12:38:00 EDT, Height/Length [...] q6hr Follow-up With When Contact Information Lorri Ireland In 3 days [address] [facility] , [address] [place] [address]- Business (1) Additional Instructions: Problem List/Past Medical [...] Alcohol Use, (more content not included)... Normal [facility] Comment on above: Result Comment: Elec tronically Signed By: Justo Arias DO\.br\Date and Time Signed: 09/20/23 15:21 EDT ED Patient Education Noteon 09-20-2023 ED Patient Education Note Normal [facility] ED Patient Summaryon 024 ED Patient Summary [facility] [address] [place], [place] [address] Patient Discharge Instructions Person Information Name: ALEJANDRA REAL Age: 27 Years Arrival Date: 09/20/2023 12:19:55 Discharge Diagnosis: Abdominal pain; Nausea Primary Care Physician: Lorri Irealnd CNP Provider Information Primary Provider: Justo Arias DO Advanced Senior Manufacturing Engineer:None The exam and treatment you received in the Emergency Department were for an urgent problem and are not intended as complete care. It is important that you follow up with a doctor, nurse practitioner, or physician?s workers compensation claims assistant for ongoing care. If your symptoms [...] Follow-up Instructions: With: Address: When: Lorri Ireland [address] [place] [address], [address] [place] [phone] Business (1) In 3 days In the event that this physician does not participate in your insurance network, please consult with your insurance company to find a nearby participating provider. Patient Education Materials: A MESSAGE TO ALL PATIENTS REGARDING OPIOIDS PRESCRIPTION OPIOIDS: WHAT YOU NEED TO KNOW Prescription opioids can be used to help relieve wwvclcum-cx-rbfobz pain and are often prescribed following a [...] be struggling with addiction, tell your health long term care pharmacist and ask for guidance or call [facility] National Helpline at 2-493-442-QMVA. v Source: [place] Department of Health and Human Serv (more content not included)... Normal [facility] HEMATOLOGYOrdered By: SYSTEM SYSTEM on 09-20-2023 Monocytes/100 WBC (Bld) 7.5 % Normal 4.0 - 14.0 % Remisol Heme Hep Func PanelOrdered By: [employer] SYSTEM on 09-20-2023 Albumin [Mass/Vol] 4.4 g/dL Normal 3.3-5.0 Remiso l Chem Comment on above: Performed By: #### 2 [id number] #### [facility] [address] [place] [address] Bilirubin [Mass/Vol] 0.3 mg/dL Normal 0.0-1.1 Donald isha Chem Comment on above: Performed By: #### 2 875174 #### [facility] [address] [place] [address] Bilirubin.direct [Mass/Vol] 0.1 mg/dL Normal 0.0-0.4 Remisol Chem Comment on above: Performed By: #### 2 245103 #### [facility] [address] [place] [address] Bilirubin.indirect [Mass or moles/Vol] 0.2 mg/dL Normal 0.1-0.9 Remisol Chem Comment on above: Performed By: #### 2 790507 #### [facility] [address] [place] [address] Globulin (S) [Mass/Vol] 2.8 g/dL Normal 1.4-4.0 R emisol Chem Comment on above: Performed By: #### 2 [id number] #### [facility] [address] [place] [address] Protein [Mass/Vol] 7.2 g/dL Normal 6.0-7.8 Remiso l Chem Comment on above: Performed By: #### 2 533294 #### [facility] [address] [place] [address] Hep Func Panelon 09-20-2023 Albumin/Globulin (S) [Mass conc ratio] 1.6 Normal 1.1-2.2 [facility] Comment on above: Performed By: #### 2 927184 #### [facility] [address] [place] [address] ALP [Catalytic activity/Vol] 130 Int._Unit/L High 21-98 [facility] Comment on above: Performed By: #### 2 778167 #### [facility] [address] [place] [address] ALT No additional P-5'-P [Catalytic activity/Vol] 12 Int._Unit/L Normal 6-46 [facility] Comment on above: Performed By: #### 2 257352 #### [facility] [address] [place] [address] AST [Catalytic activity/Vol] 14 Int._Unit/L Normal 5-43 [facility] Comment on above: Performed By: #### 2 570136 #### [facility] [address] [place] [address] Lipase LevelOrdered By: DDStocks SYSTEM on 09-20-2023 Lipase [Catalytic activity/Vol] 47 U/L Normal 13-58 Remisol Chem Comment on above: Performed By: #### 2 751612 #### [facility] [address] [place] [address] SEROLOGYOrdered By: Brii Walters on 09-20-2023 HCG.beta subunit (U) [Moles/Vol] Negative Normal [facility] Man Sero Beta HCG ( test) Ql Negative (09/20/23 1:00 PM) Normal [facility] Man Sero U BetaHcg Qualon 09-20-2023 HCG.beta subunit (U) [Moles/Vol] Negative Normal [facility] Comment on above: Performed By: #### 2 [id number] #### [facility] [address] [place] [address] UA with Cult Rflxon 09-20-19 Bilirubin Ql (U) Negative Normal Negative [facility] Comment on above: Performed By: #### 4 [id number] #### [facility] [address] [place] [address] Clarity (U) Turbid Abnormal Clear [facility] Comment on above: Performed By: #### 4 [id number] #### [facility] [address] [place] [address] Color (U) Light-Yellow Normal Yellow [facility] Comment on above: Result Comment: Micr oscopic readings are only performed on those samples that meet specific criteria set forth by [facility]. Performed By: #### 4 [id number] #### [facility] [address] [place] [address] Epithelial cells.squamous Auto (Urine sed) [#/Area] 0-2 Normal 0-2 [facility] Comment on above: Performed By: #### 4 [id number] #### [facility] [address] [place] [address] Glucose Ql (U) Negative Normal Negative [facility] Comment on above: Performed By: #### 4 [id number] #### [facility] [address] [place] [address] Hemoglobin Auto test strip (U) [Mass/Vol] Negative Normal Negative [facility] Comment on above: Performed By: #### 4 [id number] #### [facility] [address] [place] [address] Ketones Auto test strip Ql (U) Negative Normal Negative [facility] Comment on above: Performed By: #### 4 [id number] #### [facility] [address] [place] [address] Leukocyte esterase Auto test strip Ql (U) Negative Normal Negative [facility] Comment on above: Performed By: #### 4 [id number] #### [facility] [address] [place] [address] Mucus Auto Ql (U) Trace Normal Negative [facility] Comment on above: Performed By: #### 4 [id number] #### [facility] [address] [place] [address] Nitrite Auto test strip Ql (U) Negative Normal Negative [facility] Comment on above: Performed By: #### 4 [id number] #### [facility] [address] [place] [address] pH (U) 7.0 [pH] Invalid Interpretation Code 5.0-9.0 [facility] Comment on above: Performed By: #### 4 [id number] #### [facility] [address] [place] [address] Protein Ql (U) Negative Normal Negative [facility] Comment on above: Performed By: #### 4 [id number] #### [facility] [address] [place] [address] RBC Ql (U) 0-3 Normal 0-3 [facility] Comment on above: Performed By: #### 4 [id number] #### [facility] [address] [place] [address] Specific gravity (U) [Rel density] 1.023 Invalid Interpretation Code 1.005-1.030 [facility] Comment on above: Performed By: #### 4 [id number] #### [facility] [address] [place] [address] Urobilinogen (U) [Mass/Vol] Negative Normal Negative [facility] Comment on above: Performed By: #### 4 [id number] #### [facility] [address] [place] [address] WBC Auto (Urine sed) [#/Area] 0-5 Normal 0-5 [facility] Comment on above: Performed By: #### 4 [id number] #### [facility] [address] [place] [address] Type of Urine collection method Clean Catch Normal [facility] Comment on above: Performed By: #### 4 [id number] #### [facility] [address] [place] [address] URINALYSISOrdered By: SYSTEM SYSTEM on 09-20-2023 Bilirubin [...] that meet specific criteria set forth by [facility]. Epithelial cells.squamous Auto (Urine sed) [#/Area] [...] Desc Clean Catch (09/20/23 1:15 PM) Normal [facility] [place] [place] UA Auto SS Work Phone: eGFROrdered By: SYSTEM SYSTE [employer] on 09-20-2023 eGFR 102 mL/min/1.73 m2 Normal >=59 [facility] Comment on above: Order Comment: Order added by Discern Expert. Performed By: #### 1 [id number] #### [facility] [address] [place] [address] C Urineon 09-19-2023 Bacteria identified Cx Nom (U) Microbiology PROCEDURE: Urine Culture [R1] SOURCE: U CleanCatch BODY SITE: COLLECTED DATE/TIME: 09/17/2023 04:34 EDT RECEIVED DATE/TIME: 09/17/2023 05:18 EDT START DATE/TIME: 09/17/2023 05:18 EDT FREE TEXT SOURCE: Vivian houston DO Don MARIAVivian FINAL REPORTS Final Report [] Verified Date/Time: 09/19/2023 07:11 EDT 5,000 cfu/ml Mixed skin contaminants Performing Locations R1: This test was performed at: [facility], [address] [place] [address], [phone] , , [facility] Comment on above: Performed By: #### 2 [id number] #### [facility] [address] [place] [address] Consent for Treatmenton 08-27 Consent for Treatment [id number] .00TIFF [facility] Discharge Instructionson Discharge Instructions [id number] .00TIFF [facility] ED Clinical Summaryon 2023 ED Clinical Summary [address] [address] ED Clinical Summary Person Information Name: ALEJANDRA REAL [facility] Age: 27 Years : 1995 Sex: Female Language: [place] Citizen PCP: Lorri Ireland CNP Marital Status: Single Phone: [phone] Visit Id: Visit Reason: Abdominal pain; Hematuria; [...] 09/17/2023 05:11:08 09/17/2023 05:11:08 09/17/2023 05:11:08 ADDRESS: [address] [facility] [id number] PHYS DOC NOTES: MEDICAL INFORMATION: Prescriptions Given: New Medications [facility]/pharmacy #[id number], [address], [place] [id number], [phone] nitrofurantoin (Macrobid 100 mg Cap) 1 Capsules By Mouth every 12 hours for 5 Days. Refills: 0. phenazopyridine (Pyridium 200 mg Tab) 1 Tablets By Mouth 3 times a day for 3 Days. Refills: 0. Medications to Continue Taking That Have Changed [facility]/pharmacy #[id number], [address], [place] [id number], [phone] START: dicyclomine (Bentyl 10 mg Cap) 1 [...] EDUCATION INFORMATION: Instructions: Urinary Tract Infection, Adult, Zrqo-tc-Jqyd Follow up: With: Address: When: Lorri Ireland [address] [place] [address], [facility], [address] [place] [id number] Business (1) In 3 days 09/20/2023 Comments: [...] or worsening symptoms. DIAGNOSIS: Acute UTI Normal [facility] ED Note-Physicianon 09-17-19 24 ED Note-Physician Basic Information Time Seen: Vivian [...] and Complexity of Problems Differential Diagnosis: [] [facility] Data External documents reviewed: [] My [...] day(s), # 21 cap(s), Refills(s) 0, Pharmacy: [facility]/pharmacy #[id number], 160, cm, 09/17/23 4:33:00 EDT, Height/Length Dosing, 65.4, kg, 09/17/23 4:33:00 EDT, Weight Dosing nitrofurantoin, 100 mg = 1 cap(s), Oral, q12hr, X 5 day(s), # 10 cap(s), Refills(s) 0, [id number] 160, cm, 09/17/23 4:33:00 EDT, [...] day(s), # 9 tab(s), Refills(s) 0, [id number] 160, cm, 09/17/23 4:33:00 EDT, Height/Length Dosing, 65.4, kg, 09/17/23 4:33:00 EDT, Weight Dosing tramadol, 100 mg = 2 tab(s), Tab, Oral, Once, Stop date 09/17/23 4:52:00 EDT, STAT, Start date 09/17/23 4:52:00 EDT, 09/17/23 4:52:00 EDT tramadol, 50 mg = 1 tab(s), Oral, q6hr, PRN for pain, X 2 day(s), # 7 tab(s), Refills(s) 0, Pharmacy: [facility]/pharmacy #[id number], 160, cm, 09/17/23 4:33:00 EDT, [...] PRN Follo (more content not included)... Normal [facility] Comment on above: Result Comment: Elec tronically [...] these instructions at home: Medicines ? Take mvth-fxt-bbxwmdm and prescription medicines only as told by [...] Reviewed: 11/24/2020 Elsevier Patient Education ? 2022 [employer] Normal [facility] ED Patient Summaryon 024 ED Patient Summary [address] [address] Patient Discharge Instructions Person Information Name: ALEJANDRA REAL Age: 27 Years Arrival Date: 09/17/2023 04:24:35 Discharge Diagnosis: Acute UTI Primary Care Physician: Lorri Ireland CNP Provider Information Primary Provider: Vivian Ochoa DO Advanced Senior Manufacturing Engineer:None The exam and treatment you received in the Emergency Department were for an urgent problem and are not intended as complete care. It is important that you follow up with a doctor, nurse practitioner, or physician?s workers compensation claims assistant for ongoing care. If your symptoms [...] Follow-up Instructions: With: Address: When: Lorri Ireland [address] [place] [address], [facility], [address] [place] [address] Business (1) In 3 days [...] Patient Education Materials: Urinary Tract Infection, Adult, Qmjy-oh-Xrvi A MESSAGE TO ALL PATIENTS REGARDING OPIOIDS PRESCRIPTION OPIOIDS: WHAT YOU NEED TO KNOW Prescription opioids can be used to help relieve wvdwempw-nc-wdhtyj pain and are often prescribed following a [...] toilet, f (more content not included)... Normal [facility] SEROLOGYOrdered By: Veena Keenan on 09-17-2023 HCG.beta subunit (U) [Moles/Vol] Negative Normal [facility] [place] Sero U BetaHcg Qualon 09-17-2023 HCG.beta subunit (U) [Moles/Vol] Negative Normal [facility] Comment on above: Performed By: #### 2 [id number] #### [facility] [address] [place] [id number] UA with Cult Rflxon 09-17-19 24 Bilirubin Ql (U) Negative Normal Negative [facility] Comment on above: Performed By: #### 4 [id number] #### [facility] [address] [place] [address] Clarity (U) Clear Normal Clear [facility] Comment on above: Performed By: #### 4 [id number] #### [facility] [address] [place] [address] Color (U) Yellow Normal Yellow [facility] Comment on above: Result Comment: Micr oscopic readings are only performed on those samples that meet specific criteria set forth by [facility]. Performed By: #### 4 [id number] #### [facility] [address] [place] [address] Epithelial cells.squamous Auto (Urine sed) [#/Area] 3-4 Abnormal 0-2 [facility] Comment on above: Performed By: #### 4 [id number] #### [facility] [address] [place] [address] Glucose Ql (U) Negative Normal Negative [facility] Comment on above: Performed By: #### 4 [id number] #### [facility] [address] [place] [address] Hemoglobin Auto test strip (U) [Mass/Vol] Trace Abnormal Negative [facility] Comment on above: Performed By: #### 4 [id number] #### [facility] [address] [place] [address] Ketones Auto test strip Ql (U) Trace Abnormal Negative [facility] Comment on above: Performed By: #### 4 [id number] #### [facility] [address] [place] [address] Leukocyte esterase Auto test strip Ql (U) 25 Obie/uL Normal Negative [facility] Comment on above: Performed By: #### 4 [id number] #### [facility] [address] [place] [address] Mucus Auto Ql (U) Trace Normal Negative [facility] Comment on above: Performed By: #### 4 [id number] #### [facility] [address] [place] [address] Nitrite Auto test strip Ql (U) Negative Normal Negative [facility] Comment on above: Performed By: #### 4 [id number] #### [facility] [address] [place] [address] pH (U) 6.0 [pH] Normal 5.0-9.0 [facility] Comment on above: Performed By: #### 4 [id number] #### [facility] [address] [place] [address] Protein Ql (U) Trace Abnormal Negative [facility] Comment on above: Performed By: #### 4 [id number] #### [facility] [address] [place] [address] RBC Ql (U) 4-20 Abnormal 0-3 [facility] Comment on above: Performed By: #### 4 [id number] #### [facility] [address] [place] [address] Specific gravity (U) [Rel density] 1.035 Normal 1.005-1.030 [facility] Comment on above: Performed By: #### 4 [id number] #### [facility] [address] [place] [address] Urobilinogen (U) [Mass/Vol] 3 mg/dL Abnormal Negative [facility] Comment on above: Performed By: #### 4 [id number] #### [facility] [address] [place] [address] WBC Auto (Urine sed) [#/Area] 6-15 Abnormal 0-5 [facility] Comment on above: Performed By: #### 4 [id number] #### [facility] [address] [place] [address] Type of Urine collection method Clean Catch Normal [facility] Comment on above: Performed By: #### 4 [id number] #### [facility] [address] [place] [address] URINALYSISOrdered By: Tri Keenan on 09-17-2023 Bilirubin Ql (U) Negative Normal Negativemg/ d L [facility] UA Auto SS Clarity (U) Clear (09/17/23 4:34 AM) Normal Clear [facility] UA Auto SS Color (U) Yellow 1 (09/17/23 4:34 AM) Normal Yellow [facility] UA Auto SS Comment on above: Interpretive Data: M icroscopic readings are only performed on those samples that meet specific criteria set forth by [facility]. Epithelial cells.squamous Auto (Urine sed) [#/Area] [...] Trace mg/dL Invalid Interpretation Code Negativemg/d L [facility] UA Auto SS RBC Ql (U) 4-20 graded/HPF Invalid Interpretation Code 0-3graded/HP F [facility] UA Auto SS Specific gravity (U) [Rel density] 1.035 (09/17/23 4:34 AM) Normal 1.005 - 1.030 [facility] UA Auto SS Urobilinogen (U) [Mass/Vol] 3 mg/dL Invalid Interpretation Code Negativemg/d L [facility] UA Auto SS WBC Auto (Urine sed) [#/Area] 6-15 *ABN* (09/17/23 4:34 AM) Invalid Interpretation Code 0-5 [facility] UA Auto SS URINALYSISOrdered By: Abbi Ochoa on 09-17-2023 UA Spec Desc Clean Catch (09/17/23 4:34 AM) Normal [facility] [place] UA Auto SS Work Phone: Consent for Treatmenton 08-27 Consent for Treatment [id number] .00TIFF Normal [facility] V[facility] Office/Cl inic Noteon 09-15-2023 Heart and Vascular Office/Clinic Note Normal [facility] Comment on above: Result Comment: Elec tronically Signed By: Bon DC, Fatoumata Kelsey\.br\Date and Time Signed: 09/15/23 09:38 EDT Clipboard Summaryon 09-14-19 Clipboard Summary {[id number]-[id number]-ba-[id number] a -51-[id number]-81-[id number]-[id number] -26-0d}XML Normal [facility] Consent for Treatmenton 08-26 Consent for Treatment [id number] .00TIFF Normal [facility] Discharge Instructionson Discharge Instructions [id number]# 1.00TIFF Normal [facility] ED Clinical Summaryon 2023 ED Clinical Summary Normal [facility] ED Note-Physicianon 09-14-19 ED Note-Physician Normal [facility] Comment on above: Result Comment: Elec tronically Signed By: Sy Pickard PA-C\.br\Date and Time Signed: 09/14/23 12:52 EDT\.br\Electronically Co-Signed By: Darren Lomax DO\.br\Date and Time Co-Signed: 09/14/23 13:34 EDT ED Patient Education Noteon 09-14-2023 ED Patient Education Note Normal [facility] ED Patient Summaryon 024 ED Patient Summary Normal [facility] Automated urine color determ inationOrdered By: PROVIDER TEMP on 09-04-2023 Color (U) Yellow Normal Yellow [facility] Comment on above: Order Comment: Name Collection Type:: Clean-Voided Midstream Performed By: #### U A #### [facility] [address] [place] [address] Bilirubin Test strip Ql (U)O rdered By: PROVIDER TEMP on 09-04-2023 Bilirubin Ql (U) Negative Negative [facility] HCG ( test) IA.rapi d Ql (U)Ordered By: PROVIDER TEMP on 09-04-2023 HCG ( test) Ql (U) Negative [facility] HCG,Urineon 09-04-2023 Beta HCG ( test) Ql (U) Negative Normal [facility] Comment on above: Result Comment: PERF ORMED BY: [address] [place] [address] PATHOLOGIST MEDICAL POLICY SPECIALIST ALEXANDER SANDERS M.D. Performed By: #### U HCG #### [facility] [address] [place] [address] [place] Ketones Auto test strip (U) [Mass/Vol]Ordered By: PROVIDER TEMP on 09-04-2023 Ketones (U) [Mass/Vol] Negative Negative [facility] Nitrite Test strip Ql (U)Ord ered By: PROVIDER TEMP on 09-04-2023 Nitrite Ql (U) Negative Negative [facility] Protein Auto test strip (U) [Mass/Vol]Ordered By: PROVIDER TEMP on 09-04-2023 Protein (U) [Mass/Vol] Negative Negative [facility] Specific gravity Auto test s trip (U) [Rel density]Ordered By: PROVIDER TEMP on 09-04-2023 Specific gravity (U) [Rel density] 1.007 1.001-1.030 [facility] Urinalysison 09-04-2023 Appearance (U) Clear Normal Clear [facility] Comment on above: Order Comment: Name Collection Type:: Clean-Voided Midstream Performed By: #### U A #### [address] Bilirubin,Urine Negative Normal Negative [facility] Comment on above: Order Comment: Name Collection Type:: Clean-Voided Midstream Performed By: #### U A #### [address] Glucose Ql (U) Normal Normal Normal [facility] Comment on above: Order Comment: Name Collection Type:: Clean-Voided Midstream Performed By: #### U A #### [address] Ketones Ql (U) Negative Normal Negative [facility] Comment on above: Order Comment: Name Collection Type:: Clean-Voided Midstream Performed By: #### U A #### [address] Leukocyte esterase Test strip Ql (U) Negative Normal Negative [facility] Comment on above: Order Comment: Name Collection Type:: Clean-Voided Midstream Performed By: #### U A #### [place] [address] [place] Nitrite,Urine Negative Normal Negative [facility] Comment on above: Order Comment: Name Collection Type:: Clean-Voided Midstream Performed By: #### U A #### [place] [address] [place] Occult Blood,Urine Negative Normal Negative [facility] Comment on above: Order Comment: Name Collection Type:: Clean-Voided Midstream Result Comment: PERF ORMED BY: [place] [address] PATHOLOGIST MEDICAL POLICY SPECIALIST ALEXANDER SANDERS M.D. Performed By: #### U A #### [facility] [address] Protein,Urine Negative Normal Negative [facility] Comment on above: Order Comment: Name Collection Type:: Clean-Voided Midstream Performed By: #### U A #### [facility] [address] Specificy Stephen,Urine 1.007 Normal 1.001-1.030 [facility] Comment on above: Order Comment: Name Collection Type:: Clean-Voided Midstream Performed By: #### U A #### [facility] [address] Urobilinogen,Urine Normal Normal Normal [facility] Comment on above: Order Comment: Name Collection Type:: Clean-Voided Midstream Performed By: #### U A #### [address] Urine clarity by refractomet ry automatedOrdered By: PROVIDER TEMP on 09-04-2023 Clarity Refractometry automated (U) Clear Clear [facility] Urine glucose measurement by automated test strip (mass/volume)Ordered By: PROVIDER TEMP on 09-04-2023 Glucose Auto test strip (U) [Mass/Vol] Normal mg/dL Normal [facility] Urine hemoglobin detection b y automated test stripOrdered By: PROVIDER TEMP on 09-04-2023 Hemoglobin Auto test strip Ql (U) Negative Negative [facility] Urine leukocyte esterase det ection by automated test stripOrdered By: PROVIDER TEMP on 09-04-2023 Leukocyte esterase Auto test strip Ql (U) Negative Negative [facility] Urine pH measurement by auto mated test stripOrdered By: PROVIDER TEMP on 09-04-2023 pH (U) 7.5 [pH] Normal 5.0-9.0 [facility] Comment on above: Order Comment: Name Collection Type:: Clean-Voided Midstream Performed By: #### U A #### [facility] [address] Urobilinogen Auto test strip (U) [Mass/Vol]Ordered By: PROVIDER TEMP on 09-04-2023 Urobilinogen (U) [Mass/Vol] Normal mg/dL Normal [facility] Urinalysis, Routineon 2023 Bilirubin, SemiQt,Ur Negative Normal NEG [facility] Comment on above: Performed By: #### U A #### [facility] [address] [place], [place] [id number] Electrolytic Etcher: Khanh Beaulieu MD Blood, Urine Negative Normal NEG [facility] Comment on above: Performed By: #### U A #### [facility] [address] [place] [address] Electrolytic Etcher: Khanh Beaulieu MD Clarity (U) Clear Normal CLEAR [facility] Comment on above: Performed By: #### U A #### [facility] [address] [place] [address] Electrolytic Etcher: Khanh Beaulieu MD Color (U) Yellow Normal YEL [facility] Comment on above: Performed By: #### U A #### [facility] [address] [place] [address] Electrolytic Etcher: Khanh Beaulieu MD Comment Normal [facility] Comment on above: Performed By: #### U A #### [facility] [address] [place] [address] Electrolytic Etcher: Khanh Beaulieu MD Glucose Ql (U) Negative Normal NEG [facility] Comment on above: Performed By: #### U A #### [facility] [address] [place] [address] Electrolytic Etcher: Khanh Beaulieu MD Ketones Ql (U) Negative Normal NEG [facility] Comment on above: Performed By: #### U A #### [facility] [address] [place] [address] Electrolytic Etcher: Khanh Beaulieu MD Leukocyte esterase Test strip Ql (U) Negative Normal NEG [facility] Comment on above: Performed By: #### U A #### [facility] [address] [place] [address] Electrolytic Etcher: Khanh Beaulieu MD Nitrite,Ur Negative Normal NEG [facility] Comment on above: Performed By: #### U A #### [facility] [address] [place] [address] Electrolytic Etcher: Khanh Beaulieu MD PH,Ur 7.0 Normal 5.0-8.0 [facility] Comment on above: Performed By: #### U A #### [facility] [address] [place] [address] Electrolytic Etcher: Khanh Beaulieu MD Protein Ql (U) Negative Normal NEG [facility] Comment on above: Performed By: #### U A #### [facility] [address] [place] [address] Electrolytic Etcher: Khanh Beaulieu MD Spec. Stephen,Ur 1.010 Normal 1.005-1.030 [facility] Comment on above: Performed By: #### U A #### [facility] [address] [place] [id number] Electrolytic Etcher: Khanh Beaulieu MD Urobilinogen,Ur Normal Normal 0.0-1.0 [facility] Comment on above: Performed By: #### U A #### [facility] [address] [place] [address] Electrolytic Etcher: Khanh Beaulieu MD Referrals Officeon 4 Referrals Office [id number]# 1.00TIFF Normal [facility] Consent for Treatmenton 07-28 Consent for Treatment [id number] .00TIFF Normal [facility] Discharge Instructionson Discharge Instructions [id number]# 1.00TIFF Normal [facility] ED Clinical Summaryon 2023 ED Clinical Summary Normal Chavo vasquez [facility] ED Note-Physicianon 08-23-19 ED Note-Physician Normal [facility] Comment on above: Result Comment: Elec tronically Signed By: Savanna Rivero PA-C\.br\Date and Time Signed: 08/23/23 13:04 EDT\.br\Electronically Co-Signed By: Savanna Rivero PA-C\.br\Date and Time Co-Signed: 08/23/23 13:24 EDT\.br\Electronically Co-Signed By: Darren Lomax DO\.br\Date and Time Co-Signed: 08/23/23 14:48 EDT ED Patient Education Noteon 08-23-2023 ED Patient Education Note Normal [facility] ED Patient Summaryon 024 ED Patient Summary Normal [facility] U BetaHcg Qualon 08-23-2023 HCG.beta subunit (U) [Moles/Vol] Negative Normal [facility] Comment on above: Performed By: #### 2 [id number], [id number] ####[facility] [address] [place] [address] UA with Cult Rflxon 08-23-19 Bilirubin Ql (U) Negative Normal Negative [facility] Comment on above: Performed By: #### 2 [id number], [id number] ####[facility] [address] [place] [address] Clarity (U) Clear Normal Clear [facility] Comment on above: Performed By: #### 2 [id number], [id number] ####[facility] [address] [place] [address] Color (U) Light-Yellow Normal Yellow [facility] Comment on above: Result Comment: Micr oscopic readings are only performed on those samples that meet specific criteria set forth by [facility]. Performed By: #### 2 [id number], [id number] ####[facility] [address] [place] [address] Glucose Ql (U) Negative Normal Negative [facility] Comment on above: Performed By: #### 2 [id number], [id number] ####[facility] [address] [place] [address] Hemoglobin Auto test strip (U) [Mass/Vol] Negative Normal Negative [facility] Comment on above: Performed By: #### 2 [id number], [id number] ####[facility] [address] [place] [address] Ketones Auto test strip Ql (U) Negative Normal Negative [facility] Comment on above: Performed By: #### 2 [id number], [id number] ####[facility] [address] [place] [address], [place] [address] Leukocyte esterase Auto test strip Ql (U) Negative Normal Negative [facility] Comment on above: Performed By: #### 2 [id number], [id number] ####[facility] [address] [place] [address] Nitrite Auto test strip Ql (U) Negative Normal Negative [facility] Comment on above: Performed By: #### 2 [id number], [id number] ####[facility] [address] [place] [address], [place] [address] pH (U) 7.0 [pH] Invalid Interpretation Code 5.0-9.0 [facility] Comment on above: Performed By: #### 2 [id number], [id number] ####[facility] [address] [place] [address] Protein Ql (U) Negative Normal Negative [facility] Comment on above: Performed By: #### 2 [id number], [id number] ####[facility] [address] [place] [address] Specific gravity (U) [Rel density] 1.017 Invalid Interpretation Code 1.005-1.030 [facility] Comment on above: Performed By: #### 2 [id number], [id number] ####[facility] [address] [place] [address] Urobilinogen (U) [Mass/Vol] Negative Normal Negative [facility] Comment on above: Performed By: #### 2 [id number], [id number] ####[facility] [address] [place] [address] Type of Urine collection method Clean Catch Normal [facility] Comment on above: Performed By: #### 2 [id number], [id number] ####[facility] [address] [place] [address] XR Abdomen 1 Viewon 08-23-19 24 XR Abdomen 1 View Normal [facility] Alanine aminotransferase [En zymatic activity/volume] in Serum or PlasmaOrdered By: Janeth Johnson on 08-20-2023 ALT [Catalytic activity/Vol] 14 U/L Normal 7-52 [facility] Comment on above: Performed By: #### C MP, LIPASE, CBC #### [facility] [address] [place] [address] [place] Albumin [Mass/volume] in Ser um or Plasma by Bromocresol green (BCG) dye binding methoOrdered By: Janeth Johnson on 08-20-2023 Albumin BCG dye [Mass/Vol] 4.8 g/dL 3.5-5.7 [facility] Alkaline phosphatase [Enzyma tic activity/volume] in Serum or PlasmaOrdered By: Janeth Johnson on 08-20-2023 ALP [Catalytic activity/Vol] 136 U/L High 34-104 [facility] Comment on above: Performed By: #### C MP, LIPASE, CBC #### [facility] [address] [place] [address] [place] Aspartate aminotransferase [ Enzymatic activity/volume] in Serum or PlasmaOrdered By: Janeth Johnson on 08-20-2023 AST [Catalytic activity/Vol] 20 U/L Normal 13-39 [facility] Comment on above: Performed By: #### C MP, LIPASE, CBC #### [facility] [address] [place] [address] Automated basophil %Ordered By: Janeth Johnson on 08-20-2023 Basophils/100 WBC (Bld) 0.8 % Normal . [facility] Comment on above: Performed By: #### C MP, LIPASE, CBC #### [address] Automated basophil countOrde red By: Janeth Bettykrunale on 08-20-2023 Basophils (Bld) [#/Vol] 0.1 10*3/uL Normal 0.0-0.2 [facility] Comment on above: Result Comment: PERF ORMED BY: [place] [address] PATHOLOGIST MEDICAL POLICY SPECIALIST ALEXANDER SANDERS M.D. Performed By: #### C MP, LIPASE, CBC #### [address] Automated blood monocyte cou ntOrdered By: Janeth Alatorree on 08-20-2023 Monocytes (Bld) [#/Vol] 0.4 10*3/uL Normal 0.0-0.8 [facility] Comment on above: Performed By: #### C MP, LIPASE, CBC #### [address] Automated eosinophil %Ordere d By: Janeth Alatorree on 08-20-2023 Eosinophils/100 WBC (Bld) 1.1 % Normal . [facility] Comment on above: Performed By: #### C MP, LIPASE, CBC #### [address] Automated eosinophil countOr dered By: Janeth Bettyfle on 08-20-2023 Eosinophils (Bld) [#/Vol] 0.1 10*3/uL Normal 0.0-0.45 [facility] Comment on above: Performed By: #### C MP, LIPASE, CBC #### [address] Automated monocyte %Ordered By: Janeth Saffle on 08-20-2023 Monocytes/100 WBC (Bld) 5.2 % Normal . [facility] Comment on above: Performed By: #### C MP, LIPASE, CBC #### [address] Automated neutrophil %Ordere d By: Janeth Johnson on 08-20-2023 Neutrophils/100 WBC (Bld) 66.2 % Normal . [facility] Comment on above: Performed By: #### C MP, LIPASE, CBC #### [address] Automated urine color determ inationOrdered By: Janeth Johnson on 08-20-2023 Color (U) Yellow Normal Yellow [facility] Comment on above: Order Comment: Name Collection Type:: Clean-Voided Midstream Performed By: #### C MP, LIPASE, CBC #### [address] Bilirubin Test strip Ql (U)O rdered By: Janeth Johnson on 08-20-2023 Bilirubin Ql (U) Negative Negative [facility] Bilirubin.total [Mass/volume ] in Serum or PlasmaOrdered By: Janeth Johnson on 08-20-2023 Bilirubin [Mass/Vol] 0.4 mg/dL Normal 0.3-1.0 [facility] Comment on above: Performed By: #### C MP, LIPASE, CBC #### [address] abdomen pelvis w conon CT abdomen pelvis w con [facility] [place] [address] CT Scan Report Signed Patient: Alejandra Real MR#: [id number] [birth year] : 1995 Acct:[id number] Age/Sex: 27 / F ADM Date: 08/20/23 Loc: ER Room: Type: [facility] ER Attending Dr: Copies to: Janeth Johnson [...] Yayo Pablo M.D.08/20/2023 2:46 PM Dictation Location: [place] [address] Transcribed By: [facility] 08/20/23 1446 Dictated By: Yayo Pablo II, MD 08/20/23 1440 Signed By: 08/20/23 144 Normal [facility] Calcium [Mass/volume] in Ser um or PlasmaOrdered By: Janeth Johnson on 08-20-2023 Calcium [Mass/Vol] 9.7 mg/dL Normal 8.6-10.3 [facility] Comment on above: Performed By: #### C MP, LIPASE, CBC #### [address] Carbon dioxide, total [Moles /volume] in Serum or PlasmaOrdered By: Janeth Johnson on 08-20-2023 CO2 [Moles/Vol] 30.4 mmol/L Normal 21.0-31.0 [facility] Comment on above: Performed By: #### C MP, LIPASE, CBC #### [address] Chloride [Moles/volume] in S gabbie or PlasmaOrdered By: Janeth Johnson on 08-20-2023 Chloride [Moles/Vol] 104 mmol/L Normal 98-107 [facility] Comment on above: Performed By: #### C MP, LIPASE, CBC #### [address] Complete Blood Count Auto Di ffon 08-20-2023 Mean Corpuscular HGB Conc 34.0 g/dL Normal 32.0-35.0 [facility] Comment on above: Performed By: #### C MP, LIPASE, CBC #### [address] Monocytes/100 WBC (Bld) 15.39 % Normal 0.00-20.00 [facility] Comment on above: Performed By: #### C MP, LIPASE, CBC #### [address] NRBC% 0.2 /100{WBC} Normal 0-0.5 [facility] Comment on above: Performed By: #### C MP, LIPASE, CBC #### [address] Comprehensive Metabolic Pane chata 08-20-2023 Albumin [Mass/Vol] 4.8 g/dL Normal 3.5-5.7 [facility] Comment on above: Performed By: #### C MP, LIPASE, CBC #### [address] Creatinine Clr Calc Pharmacy 100.77 Normal [facility] Comment on above: Performed By: #### C MP, LIPASE, CBC #### [place] [address] [place] GFR/1.73 sq M.predicted MDRD (S/P/Bld) [Vol rate/Area] mL/min/{1.73_m2} Normal [facility] Comment on above: Performed By: #### C MP, LIPASE, CBC #### [facility] [address] Creatinine [Mass/volume] in Serum or PlasmaOrdered By: Janeth Johnson on 08-20-2023 Creatinine [Mass/Vol] 0.75 mg/dL Normal 0.60-1.20 [facility] Comment on above: Performed By: #### C MP, LIPASE, CBC #### [address] Erythrocyte distribution wid th [Ratio] by Automated countOrdered By: Janeth Johnson on 08-20-2023 Erythrocyte distribution width (RBC) [Ratio] 13.1 % Normal 11.9-15.3 [facility] Comment on above: Performed By: #### C MP, LIPASE, CBC #### [address] Erythrocytes [#/volume] in B lood by Automated countOrdered By: Janeth Johnson on 08-20-2023 RBC (Bld) [#/Vol] 4.81 10*6/uL Normal 3.60-5.00 [facility] Comment on above: Performed By: #### C MP, LIPASE, CBC #### [place] [address] [place] Glucose [Mass/volume] in Ser um or PlasmaOrdered By: Janeth Johnson on 08-20-2023 Glucose [Mass/Vol] 104 mg/dL High 70-100 [facility] Comment on above: ADA recommended refe rence rangeRandom Glucose Reference Range is dependent on time and content of last meal. Glucose of more than 200 mg/dL in a nonstressed, ambulatory subject supports the diagnosis of Diabetes Mellitus. Result Comment: [facility] Glucose Reference Range is dependent on time and content of last meal. Glucose of more than 200 mg/dL in a nonstressed, ambulatory subject supports the diagnosis of Diabetes Mellitus. ADA recommended reference range Performed By: #### C MP, LIPASE, CBC #### [address] HCG ( test) IA.rapi d Ql (U)Ordered By: Janeth Johnson on 08-20-2023 HCG ( test) Ql (U) Negative [facility] HCG,Urineon 08-20-2023 Beta HCG ( test) Ql (U) Negative Normal [facility] Comment on above: Order Comment: Name Collection Type:: Clean-Voided Midstream Result Comment: PERF ORMED BY: [place] [address] PATHOLOGIST MEDICAL POLICY SPECIALIST ALEXANDER SANDERS M.D. Performed By: #### C MP, LIPASE, CBC #### [address] Hematocrit [Volume Fraction] of Blood by Automated countOrdered By: Janeth Johnson on 08-20-2023 Hematocrit (Bld) [Volume fraction] 42.9 % Normal 34.0-46.4 [facility] Comment on above: Performed By: #### C MP, LIPASE, CBC #### [address] Hemoglobin [Mass/volume] in BloodOrdered By: Janeth Johnson on 08-20-2023 Hemoglobin (Bld) [Mass/Vol] 14.6 g/dL Normal 11.8-15.4 [facility] Comment on above: Performed By: #### C MP, LIPASE, CBC #### [address] Ketones Auto test strip (U) [Mass/Vol]Ordered By: Janeth Johnson on 08-20-2023 Ketones (U) [Mass/Vol] Negative Negative [facility] Leukocytes [#/volume] correc rosy for nucleated erythrocytes in Blood by Automated counOrdered By: Janeth Johnson on 08-20-2023 WBC corrected for nucl RBC Auto (Bld) [#/Vol] 7.5 10*3/uL 3.8-11.6 [facility] Leukocytes [#/volume] in Blo od by Automated countOrdered By: Janeth Johnson on 08-20-2023 WBC (Bld) [#/Vol] 7.5 10*3/uL Normal 3.8-11.6 [facility] Comment on above: Performed By: #### C MP, LIPASE, CBC #### [address] Lipase [Enzymatic activity/v olume] in Serum or PlasmaOrdered By: Janeth Johnson on 08-20-2023 Lipase [Catalytic activity/Vol] 28.0 U/L Normal 11.0-82.0 [facility] Comment on above: Result Comment: PERF ORMED BY: [place] [address] PATHOLOGIST MEDICAL POLICY SPECIALIST ALEXANDER SANDERS M.D. Performed By: #### C MP, LIPASE, CBC #### [place] [address] [place] Lymphocytes [#/volume] in Bl ood by Automated countOrdered By: Janeth Johnson on 08-20-2023 Lymphocytes (Bld) [#/Vol] 2.0 10*3/uL Normal 1.00-4.8 [facility] Comment on above: Performed By: #### C MP, LIPASE, CBC #### [place] [address] [place] Lymphocytes/100 leukocytes i n Blood by Automated countOrdered By: Janeth Johnson on 08-20-2023 Lymphocytes/100 WBC (Bld) 26.7 % Normal . [facility] Comment on above: Performed By: #### C MP, LIPASE, CBC #### [place] [address] [place] MCH [Entitic mass] by Automa rosy countOrdered By: Janeth Johnson on 08-20-2023 MCH (RBC) [Entitic mass] 30.4 pg Normal 24.7-34.3 [facility] Comment on above: Performed By: #### C MP, LIPASE, CBC #### [facility] [address] [place] [address] MCHC Auto (RBC) [Mass/Vol]Or dered By: Janeth Johnson on 08-20-2023 MCHC (RBC) [Mass/Vol] 34.0 g/dL 32.0-35.0 [facility] MCV [Entitic volume] by Auto mated countOrdered By: Janeth Johnson on 08-20-2023 MCV (RBC) [Entitic vol] 89.2 fL Normal 80-100 [facility] Comment on above: Performed By: #### C MP, LIPASE, CBC #### [facility] [address] [place] [address] Monocyte distribution width [Entitic volume] in Blood by AutomatedOrdered By: Janeth Johnson on 08-20-2023 Monocyte distribution width Auto (Bld) [Entitic vol] 15.39 % 0.00-20.00 [facility] Neutrophils [#/volume] in Bl ood by Automated countOrdered By: Janeth Johnson on 08-20-2023 Neutrophils (Bld) [#/Vol] 5.0 10*3/uL Normal 1.8-7.7 [facility] Comment on above: Performed By: #### C MP, LIPASE, CBC #### [facility] [address] [place] [address] Nitrite Test strip Ql (U)Ord ered By: Janeth Johnson on 08-20-2023 Nitrite Ql (U) Negative Negative [facility] No Panel InformationOrdered By: Janeth Johnson on 08-20-2023 Estimated GFR (CKD-EPI) > 60.0 mL/Min [facility] Creatinine Clearance (Chem 100.77 [facility] Nucleated erythrocytes [Pres ence] in Blood by Automated countOrdered By: Janeth Johnson on 08-20-2023 Nucleated RBC Auto Ql (Bld) 0.2 /100{WBC} 0-0.5 [facility] Platelet mean volume [Entiti c volume] in Blood by Automated countOrdered By: Janeth Johnson on 08-20-2023 Platelet mean volume (Bld) [Entitic vol] 7.5 fL Normal 6.3-10.7 [facility] Comment on above: Performed By: #### C MP, LIPASE, CBC #### [facility] [address] Platelets [#/volume] in Bloo d by Automated countOrdered By: Janeth Johnson on 08-20-2023 Platelets (Bld) [#/Vol] 447 10*3/uL Normal 150-450 [facility] Comment on above: Performed By: #### C MP, LIPASE, CBC #### [address] Potassium [Moles/volume] in Serum or PlasmaOrdered By: Janeth Johnson on 08-20-2023 Potassium [Moles/Vol] 3.7 mmol/L Normal 3.5-5.1 [facility] Comment on above: Performed By: #### C MP, LIPASE, CBC #### [address] Protein Auto test strip (U) [Mass/Vol]Ordered By: Janeth Johnson on 08-20-2023 Protein (U) [Mass/Vol] Negative Negative [facility] Protein [Mass/volume] in Ser um or PlasmaOrdered By: Janeth Johnson on 08-20-2023 Protein [Mass/Vol] 7.8 g/dL Normal 6.4-8.9 [facility] Comment on above: Performed By: #### C MP, LIPASE, CBC #### [address] Serum globulin measurement b y calculation (mass/volume)Ordered By: Janeth Johnson on 08-20-2023 Globulin (S) [Mass/Vol] 3.0 g/dL Normal [facility] Comment on above: Performed By: #### C MP, LIPASE, CBC #### [address] Serum or plasma albumin/glob ulin mass ratioOrdered By: Janeth Johnson on 08-20-2023 Albumin/Globulin [Mass ratio] 1.6 {ratio} Normal [facility] Comment on above: Performed By: #### C MP, LIPASE, CBC #### [address] Serum or plasma anion gap de terminationOrdered By: Janeth Johnson on 08-20-2023 Anion gap [Moles/Vol] 9.3 mmol/L Normal 6.0-15.0 [facility] Comment on above: Performed By: #### C MP, LIPASE, CBC #### [address] Sodium [Moles/volume] in Ser um or PlasmaOrdered By: Janeth Johnson on 08-20-2023 Sodium [Moles/Vol] 140 mmol/L Normal 136-145 [facility] Comment on above: Performed By: #### C MP, LIPASE, CBC #### [address] Specific gravity Auto test s trip (U) [Rel density]Ordered By: Janeth Johnson on 08-20-2023 Specific gravity (U) [Rel density] 1.011 1.001-1.030 [facility] Urea nitrogen [Mass/volume] in Serum or PlasmaOrdered By: Janeth Johnson on 08-20-2023 Urea nitrogen [Mass/Vol] 6 mg/dL Low 7-25 [facility] Comment on above: Performed By: #### C MP, LIPASE, CBC #### [address] Urinalysison 08-20-2023 Appearance (U) Clear Normal Clear [facility] Comment on above: Order Comment: Name Collection Type:: Clean-Voided Midstream Performed By: #### C MP, LIPASE, CBC #### [address] Bilirubin,Urine Negative Normal Negative [facility] Comment on above: Order Comment: Name Collection Type:: Clean-Voided Midstream Performed By: #### C MP, LIPASE, CBC #### [address] Glucose Ql (U) Normal Normal Normal [facility] Comment on above: Order Comment: Name Collection Type:: Clean-Voided Midstream Performed By: #### C MP, LIPASE, CBC #### [address] Ketones Ql (U) Negative Normal Negative [facility] Comment on above: Order Comment: Name Collection Type:: Clean-Voided Midstream Performed By: #### C MP, LIPASE, CBC #### [address] Leukocyte esterase Test strip Ql (U) Negative Normal Negative [facility] Comment on above: Order Comment: Name Collection Type:: Clean-Voided Midstream Performed By: #### C MP, LIPASE, CBC #### [address] Nitrite,Urine Negative Normal Negative [facility] Comment on above: Order Comment: Name Collection Type:: Clean-Voided Midstream Performed By: #### C MP, LIPASE, CBC #### [address] Occult Blood,Urine Negative Normal Negative [facility] Comment on above: Order Comment: Name Collection Type:: Clean-Voided Midstream Performed By: #### C MP, LIPASE, CBC #### [address] Protein,Urine Negative Normal Negative [facility] Comment on above: Order Comment: Name Collection Type:: Clean-Voided Midstream Performed By: #### C MP, LIPASE, CBC #### [place] [address] [place] Specificy Stephen,Urine 1.011 Normal 1.001-1.030 [facility] Comment on above: Order Comment: Name Collection Type:: Clean-Voided Midstream Performed By: #### C MP, LIPASE, CBC #### [address] Urobilinogen,Urine Normal Normal Normal [facility] Comment on above: Order Comment: Name Collection Type:: Clean-Voided Midstream Performed By: #### C MP, LIPASE, CBC #### [facility] [address] [place] [id number] [facility] Urine clarity by refractomet ry automatedOrdered By: Janeth Johnson on 08-20-2023 Clarity Refractometry automated (U) Clear Clear [facility] Urine glucose measurement by automated test strip (mass/volume)Ordered By: Janeth Johnson on 08-20-2023 Glucose Auto test strip (U) [Mass/Vol] Normal mg/dL Normal [facility] Urine hemoglobin detection b y automated test stripOrdered By: Janeth Johnson on 08-20-2023 Hemoglobin Auto test strip Ql (U) Negative Negative [facility] Urine leukocyte esterase det ection by automated test stripOrdered By: Janeth Johnson on 08-20-2023 Leukocyte esterase Auto test strip Ql (U) Negative Negative [facility] Urine pH measurement by auto mated test stripOrdered By: Janeth Johnson on 08-20-2023 pH (U) 7.5 [pH] Normal 5.0-9.0 [facility] Comment on above: Order Comment: Name Collection Type:: Clean-Voided Midstream Performed By: #### C MP, LIPASE, CBC #### [facility] [address] [place], [place] [id number] [facility] Urobilinogen Auto test strip (U) [Mass/Vol]Ordered By: Janeth Johnson on 08-20-2023 Urobilinogen (U) [Mass/Vol] Normal mg/dL Normal [facility] Consent for Treatmenton 07-28 Consent for Treatment [id number] .[id number] Normal [facility] Discharge Instructionson Discharge Instructions [id number] 1.00TIFF Normal [facility] ED Clinical Summaryon 2023 ED Clinical Summary Normal [facility] ED Note-Physicianon 04-22-20 24 ED Note-Physician Normal [facility] Comment on above: Result Comment: Elec tronically Signed By: Justo Arias DO\.tesha\Date and Time Signed: 08/18/23 11:41 EDT ED Patient Education Noteon 08-18-2023 ED Patient Education Note Normal [facility] ED Patient Summaryon 024 ED Patient Summary Normal [facility] SEROLOGYOrdered By: Kyle Mcgill on 08-18-2023 HCG.beta subunit (U) [Moles/Vol] Negative Normal [facility] Sero U BetaHcg Qualon 08-18-2023 HCG.beta subunit (U) [Moles/Vol] Negative Normal [facility] Comment on above: Performed By: #### 2 [id number], [id number] ####[facility] [address] [place] [address] UA with Cult Rflxon 08-18-19 Bilirubin Ql (U) Negative Normal Negative [facility] Comment on above: Performed By: #### 2 [id number], [id number] ####[facility] [address] [place] [address] Clarity (U) Clear Normal Clear [facility] Comment on above: Performed By: #### 2 [id number], [id number] ####[facility] [address] [place] [address] Color (U) Colorless Abnormal Yellow [facility] Comment on above: Result Comment: Micr oscopic readings are only performed on those samples that meet specific criteria set forth by [facility]. Performed By: #### 2 [id number], [id number] ####[facility] [address] [place] [address] Glucose Ql (U) Negative Normal Negative [facility] Comment on above: Performed By: #### 2 [id number], [id number] ####[facility] [address] [place] [address] Hemoglobin Auto test strip (U) [Mass/Vol] Negative Normal Negative [facility] Comment on above: Performed By: #### 2 [id number], [id number] ####[facility] [address] [place] [address] Ketones Auto test strip Ql (U) Negative Normal Negative [facility] Comment on above: Performed By: #### 2 4715995, [id number] ####[facility] [address] [place] [address] Leukocyte esterase Auto test strip Ql (U) Negative Normal Negative [facility] Comment on above: Performed By: #### 2 [id number], [id number] ####[facility] [address] [place] [address] Nitrite Auto test strip Ql (U) Negative Normal Negative [facility] Comment on above: Performed By: #### 2 7426067, [id number] ####[address] [address] pH (U) 6.5 [pH] Invalid Interpretation Code 5.0-9.0 [facility] Comment on above: Performed By: #### 2 [id number], [id number] ####[facility] [address] [place] [address] Protein Ql (U) Negative Normal Negative [facility] Comment on above: Performed By: #### 2 4562028, [id number] ####[address] [address] Specific gravity (U) [Rel density] 1.010 Invalid Interpretation Code 1.005-1.030 [facility] Comment on above: Performed By: #### 2 [id number], [id number] ####[facility] [address] [place] [address] Urobilinogen (U) [Mass/Vol] Negative Normal Negative [facility] Comment on above: Performed By: #### 2 [id number], [id number] ####[address] [address] Type of Urine collection method Clean Catch Normal [facility] Comment on above: Performed By: #### 2 [id number], [id number] ####[facility] [address] [place] [address] URINALYSISOrdered By: SYSTEM SYSTEM on 08-18-2023 Bilirubin Ql (U) Negative Normal Negativemg/ d L [facility] UA Auto SS Clarity (U) Clear (08/18/23 11:04 AM) Normal Clear [facility] UA Auto SS Color (U) Colorless 1 *ABN* (08/18/23 11:04 AM) Invalid Interpretation Code Yellow [facility] UA Auto SS Comment on above: Interpretive Data: M icroscopic readings are only performed on those samples that meet specific criteria set forth by [facility]. Glucose Ql (U) Negative Normal Negativemg/d [...] Desc Clean Catch (08/18/23 11:04 AM) Normal [facility] [place] UA Auto SS Work Phone: BMPon 08-14-2023 Anion gap [Moles/Vol] 13 mmol/L Normal 6-16 [facility] Comment on above: Performed By: #### 2 797856, [id number], [id number] ####[facility] [address] [place] [address] Calcium [Mass/Vol] 9.6 mg/dL Normal 8.9-11.1 [facility] Comment on above: Performed By: #### 2 519723, [id number], [id number] ####[facility] [address] [place] [address] Chloride [Moles/Vol] 107 mmol/L Normal 101-111 [facility] Comment on above: Performed By: #### 2 562770, [id number], [id number] ####[facility] [address] [place] [address] CO2 [Moles/Vol] 24 mmol/L Normal 21-31 [facility] Comment on above: Performed By: #### 2 737115, [id number], [id number] ####[facility] [address] [place] [address] Creatinine [Mass/Vol] 0.7 mg/dL Normal 0.5-1.3 [facility] Comment on above: Performed By: #### 2 032706, [id number], [id number] ####[facility] [address] [place] [address] Glucose [Mass/Vol] 99 mg/dL Normal 55-199 [facility] Comment on above: Performed By: #### 2 334550, [id number], [id number] ####[facility] [address] [place] [address] Potassium [Moles/Vol] 3.2 mmol/L Low 3.5-5.3 [facility] Comment on above: Performed By: #### 2 576632, 0672261, [id number] ####[facility] [address] [place] [address] Sodium [Moles/Vol] 141 mmol/L Normal 135-145 [facility] Comment on above: Performed By: #### 2 104034, [id number], [id number] ####[facility] [address] [place] [address] Urea nitrogen [Mass/Vol] 5 mg/dL Normal 5-21 [facility] Comment on above: Performed By: #### 2 370056, [id number], [id number] ####[facility] [address] [place] [address] Urea nitrogen/Creatinine [Mass ratio] 7 No Units Low 10-20 [facility] Comment on above: Performed By: #### 2 681609, 4922707, [id number] ####[address] [address] CBC w/ Auto Diffon 4 Basophils/100 WBC (Bld) 0.4 % Normal 0.0-2.0 F [facility] Comment on above: Performed By: #### 2 004854, 6231746, [id number] ####[address] [address] Basophils/Leukocytes Auto (Bld) [Pure # fraction] 0.0 E9/L Normal 0.0-0.2 [facility] Comment on above: Performed By: #### 2 487657, 9673950, 69887858 ####[address] [address] Eosinophils (Bld) [#/Vol] 0.0 E9/L Normal 0.0-0.5 [facility] Comment on above: Performed By: #### 2 338816, 9659270, 17125084 ####[address] [address] Eosinophils/100 WBC (Bld) 0.3 % Normal 0.0-8.0 [facility] Comment on above: Performed By: #### 2 598093, 0688871, 76001164 ####[address] [address] Erythrocyte distribution width (RBC) [Ratio] 13.3 % Normal 10.9-14.2 [facility] Comment on above: Performed By: #### 2 904583, 8061194, 54842581 ####[address] [address] Hematocrit (Bld) [Volume fraction] 40.7 % Normal 34.0-46.0 [facility] Comment on above: Performed By: #### 2 923913, 6145795, 85031783 ####[address] [address] Hemoglobin (Bld) [Mass/Vol] 13.6 g/dL Normal 12.0-16.0 [facility] Comment on above: Performed By: #### 2 133266, 6621416, 60312923 ####[address] [address] Lymphocytes (Bld) [#/Vol] 2.2 E9/L Normal 1.0-4.0 [facility] Comment on above: Performed By: #### 2 292355, 3184913, 75659043 ####[address] [address] Lymphocytes/100 WBC (Bld) 21.0 % Normal 14.0-50.0 [facility] Comment on above: Performed By: #### 2 165848, 7136570, 65344018 ####[address] [address] MCH (RBC) [Entitic mass] 29.9 pg Normal 27.0-34.0 [facility] Comment on above: Performed By: #### 2 360027, 9430799, 04691458 ####[address] [address] MCHC (RBC) [Mass/Vol] 33.5 g/dL Normal 31.4-36.0 [facility] Comment on above: Performed By: #### 2 395860, 7279043, 17524640 ####[address] [address] MCV (RBC) [Entitic vol] 89.2 fL Normal 80.0-100.0 F [facility] Comment on above: Performed By: #### 2 411548, 5106102, 72486993 ####[facility] [address] [place] [address] Monocytes (Bld) [#/Vol] 0.5 E9/L Normal 0.2-1.0 F [facility] Comment on above: Performed By: #### 2 811670, 8709711, 77876123 ####[address] [address] Neutrophils (Bld) [#/Vol] 7.6 E9/L High 2.0-7.5 [facility] Comment on above: Performed By: #### 2 595386, 7354303, 09961121 ####[address] [address] Neutrophils/100 WBC (Bld) 73.5 % Normal 36.0-75.0 [facility] Comment on above: Performed By: #### 2 743519, 0615986, 52522685 ####[address] [address] Platelet mean volume (Bld) [Entitic vol] 7.2 fL Normal 6.4-10.8 [facility] Comment on above: Performed By: #### 2 019611, 5491591, 87852600 ####[address] [address] Platelets (Bld) [#/Vol] 421.0 E9/L Normal 150.0-500.0 [facility] Comment on above: Performed By: #### 2 495387, 2496299, 63263159 ####[address] [address] RBC (Bld) [#/Vol] 4.6 E12/L Normal 4.3-5.9 [facility] Comment on above: Performed By: #### 2 651631, 7013420, 37792375 ####[address] [address] WBC corrected for nucl RBC Auto (Bld) [#/Vol] 10.4 E9/L Normal 4.0-11.0 [facility] Comment on above: Performed By: #### 2 180540, 8268251, 33973604 ####[facility] [address] [place] [address] CHEMISTRYOrdered By: Azam parmar on 08-14-2023 Anion gap [Moles/Vol] 13 mmol/L Normal 6 - 16 mEq/L F [facility] Chem S Calcium [Mass/Vol] 9.6 mg/dL Normal 8.9 - 11. 1 mg/dL [facility] [place] Chem S Chloride [Moles/Vol] 107 mmol/L Normal 101 - 1 11 mmol/L [facility] [place] Chem S CO2 [Moles/Vol] 24 mmol/L Normal 21 - 31 mmol/L [facility] [place] Chem S Creatinine [Mass/Vol] 0.7 mg/dL Normal 0.5 - 1.3 mg/dL [facility] [place] Chem S eGFR Unable to Calculate (08/14/23 3:16 PM) Normal >=59 [facility] [place] Chem S Glucose [Mass/Vol] 99 mg/dL Normal 55 - 199 mg/dL [facility] [place] Chem S Potassium [Moles/Vol] 3.2 mmol/L Low 3.5 - 5.3 mmol/L [facility] [place] Chem S Sodium [Moles/Vol] 141 mmol/L Normal 135 - 145 mmol/L [facility] [place] Chem S Urea nitrogen [Mass/Vol] 5 mg/dL Normal 5 - 21 mg/dL [facility] [place] Chem S Urea nitrogen/Creatinine [Mass ratio] 7 mg/mg Low 10 - 20 [facility] [place] Chem S Consent for Treatmenton 07-27 Consent for Treatment [id number] .00TIFF Normal [facility] Discharge Instructionson Discharge Instructions [id number]#1. 00TIFF Normal [facility] ED Clinical Summaryon 2023 ED Clinical Summary Normal [facility] ED Note-Physicianon 08-14-19 ED Note-Physician Normal [facility] Comment on above: Result Comment: Elec tronically Signed By: Arpita Layton, Mary Jane H\.br\Date and Time Signed: 08/14/23 17:09 EDT ED Patient Education Noteon 08-14-2023 ED Patient Education Note Normal [facility] ED Patient Summaryon 024 ED Patient Summary Normal [facility] HEMATOLOGYOrdered By: SYSTEM SYSTEM on 08-14-2023 Basophils/100 [...] 08-14-2023 HCG.beta subunit (U) [Moles/Vol] Negative Normal [facility] [place] Man Sero U BetaHcg Qualon 08-14-2023 HCG.beta subunit (U) [Moles/Vol] Negative Normal [facility] Comment on above: Performed By: #### 2 8047262, [id number] ####[facility] [address] [place] [address] UA with Cult Rflxon 08-14-19 24 Bilirubin Ql (U) Negative Normal Negative [facility] Comment on above: Performed By: #### 2 1185218, [id number] ####[facility] [address] [place] [address] Clarity (U) Clear Normal Clear [facility] Comment on above: Performed By: #### 2 0692482, [id number] ####[facility] [address] [place] [address] Color (U) Light-Yellow Normal Yellow [facility] Comment on above: Result Comment: Micr oscopic readings are only performed on those samples that meet specific criteria set forth by [facility]. Performed By: #### 2 7333265, [id number] ####[facility] [address] [place] [address] Glucose Ql (U) Negative Normal Negative [facility] Comment on above: Performed By: #### 2 0978674, [id number] ####[facility] [address] [place] [address] Hemoglobin Auto test strip (U) [Mass/Vol] Trace Abnormal Negative [facility] Comment on above: Performed By: #### 2 8115126, [id number] ####[facility] [address] [place] [address] Ketones Auto test strip Ql (U) Negative Normal Negative [facility] Comment on above: Performed By: #### 2 5830174, 2970773023 ####[facility] [address] [place] [address] Leukocyte esterase Auto test strip Ql (U) Negative Normal Negative [facility] Comment on above: Performed By: #### 2 6478316, [id number] ####[facility] [address] [place] [address] Nitrite Auto test strip Ql (U) Negative Normal Negative [facility] Comment on above: Performed By: #### 2 3646051, [id number] ####[facility] [address] [place] [address] pH (U) 5.5 [pH] Invalid Interpretation Code 5.0-9.0 [facility] Comment on above: Performed By: #### 2 7619900, [id number] ####[facility] [address] [place] [address] Protein Ql (U) Negative Normal Negative [facility] Comment on above: Performed By: #### 2 6594656, 9486236460 ####[facility] [address] [facility] [place] [address] Specific gravity (U) [Rel density] 1.015 Invalid Interpretation Code 1.005-1.030 [facility] Comment on above: Performed By: #### 2 6927896, [id number] ####[facility] [address] [facility] [place] [address] Urobilinogen (U) [Mass/Vol] Negative Normal Negative [facility] Comment on above: Performed By: #### 2 4733551, [id number] ####[facility] [address] [place] [address] Type of Urine collection method Clean Catch Normal [facility] Comment on above: Performed By: #### 2 0764656, [id number] ####[facility] [address] [place] [address] URINALYSISOrdered By: SYSTEM SYSTEM on 08-14-2023 Bilirubin Ql (U) Negative Normal Negativemg/ d L [facility] UA Auto SS Clarity (U) Clear (08/14/23 3:11 PM) Normal Clear [facility] UA Auto SS Color (U) Light-Yellow 1 (08/14/23 3:11 PM) Normal Yellow [facility] UA Auto SS Comment on above: Interpretive Data: M icroscopic readings are only performed on those samples that meet specific criteria set forth by [facility]. Glucose Ql (U) Negative Normal Negativemg/d [...] L [facility] UA Auto SS URINALYSISOrdered By: Mary Jane Palm on 08-14-2023 UA Spec Desc Clean Catch (08/14/23 3:11 PM) Normal [facility] UA Auto SS eGFRon 08-14-2023 eGFR Unable to Calculate Normal >=59 Chavo vasquez [facility] Comment on above: Order Comment: Order added by Discern Expert. Performed By: #### 2 664493, 6142627, 31278248 ####[facility] [address] [place] [address] Consent for Treatmenton 07-27 Consent for Treatment [id number]#1 .00TIFF Normal [facility] Discharge Instructionson Discharge Instructions [id number]# 1.00TIFF Normal [facility] ED Clinical Summaryon 2023 ED Clinical Summary Normal [facility] ED Note-Physicianon 08-10-19 ED Note-Physician Normal [facility] Comment on above: Result Comment: Elec tronically Signed By: Sy Pickard PA-C\.br\Date and Time Signed: 08/10/23 13:28 EDT\.br\Electronically Co-Signed By: Mary Jane Palm M.D.\.br\Date and Time Co-Signed: 08/10/23 14:13 EDT ED Patient Education Noteon 08-10-2023 ED Patient Education Note Normal [facility] ED Patient Summaryon 024 ED Patient Summary Normal [facility] Physician Orderon 08-05-2023 Physician Order [id number]#1 .00TIFF Normal [facility] US PELVIC COMPLETE W/ TVon 0 08-05-2023 [...] Summaryon 0 07-30-2023 Ambulatory Visit Summary Normal [facility] Consenton 07-30-2023 Consent [id number]#1 .00TIFF Normal [facility] Family Medicine Office/Clini c Noteon 07-30-2023 Family Medicine Office/Clinic Note Normal [facility] Comment on above: Result Comment: Elec tronically Signed By: SANIA LUKE, LANETTE\.br\Date and Time Signed: 07/30/23 14:40 EDT Patient Educationon 07-30-19 24 Patient Education Normal [facility] B hCG Qualon 07-26-2023 Beta HCG ( test) Ql Negative [facility] Comment on above: Performed By: #### 1 3552333, 0175535, 2936865, 34361599 ####[facility] [address] [place] [address] BMPon 07-26-2023 Creatinine [Mass/Vol] 0.8 mg/dL Normal 0.5-1.3 [facility] Comment on above: Performed By: #### 1 5480934, 2926913, 2265747, 76112217 ####[facility] [address] [place] [address] Urea nitrogen/Creatinine [Mass ratio] 11 No Units Normal 10-20 [facility] Comment on above: Performed By: #### 1 6846373, 5171424, 6685471, 59546868 ####[facility] [address] [place] [address] Anion gap [Moles/Vol] 11 mmol/L Normal 6-16 [facility] Comment on above: Performed By: #### 1 5567731, 4066274, 4424216, 84871736 ####[facility] [address] [place] [address] Calcium [Mass/Vol] 9.7 mg/dL Normal 8.9-11.1 [facility] Comment on above: Performed By: #### 1 1532709, 3594566, 0892246, 99561319 ####[facility] [address] [place] [address] Chloride [Moles/Vol] 104 mmol/L Normal 101-111 [facility] Comment on above: Performed By: #### 1 6161225, 0762176, 5242172, 94440074 ####[facility] [address] [place] [address] CO2 [Moles/Vol] 26 mmol/L Normal 21-31 [facility] Comment on above: Performed By: #### 1 8948397, 7334440, 0204112, 31956368 ####[facility] [address] [place] [address] Glucose [Mass/Vol] 87 mg/dL Normal 55-199 [facility] Comment on above: Performed By: #### 1 7822985, 5940812, 2109052, 45088682 ####[facility] [address] [place] [address] Potassium [Moles/Vol] 3.4 mmol/L Low 3.5-5.3 [facility] Comment on above: Performed By: #### 1 6860572, 2318214, 7666846, 35542372 ####[facility] [address] [place] [address] Sodium [Moles/Vol] 138 mmol/L Normal 135-145 [facility] Comment on above: Performed By: #### 1 7531135, 3174251, 6868797, 49072284 ####[facility] [address] [place] [address] Urea nitrogen [Mass/Vol] 9 mg/dL Normal 5-21 [facility] Comment on above: Performed By: #### 1 9782024, 6659143, 9424760, 48533615 ####[address] [address] CBC w/ Auto Diffon 4 Basophils/100 WBC (Bld) 1.9 % Normal 0.0-2.0 [facility] Comment on above: Performed By: #### 1 8873943, 2979138, 9768460, 92402902 ####[address] [address] Basophils/Leukocytes Auto (Bld) [Pure # fraction] 0.2 E9/L Normal 0.0-0.2 [facility] Comment on above: Performed By: #### 1 6349629, 8804304, 8914797, 12493875 ####[address] [address] Eosinophils (Bld) [#/Vol] 0.3 E9/L Normal 0.0-0.5 [facility] Comment on above: Performed By: #### 1 2170847, 6881527, 9800742, 99621330 ####[address] [address] Eosinophils/100 WBC (Bld) 2.5 % Normal 0.0-8.0 [facility] Comment on above: Performed By: #### 1 8379768, 9500741, 3777305, 88863828 ####[address] [address] Erythrocyte distribution width (RBC) [Ratio] 12.9 % Normal 10.9-14.2 [facility] Comment on above: Performed By: #### 1 0689037, 3551030, 2597359, 07768080 ####[address] [address] Hematocrit (Bld) [Volume fraction] 43.8 % Normal 34.0-46.0 [facility] Comment on above: Performed By: #### 1 7423857, 0862088, 5191162, 04417598 ####[address] [address] Hemoglobin (Bld) [Mass/Vol] 14.8 g/dL Normal 12.0-16.0 [facility] Comment on above: Performed By: #### 1 3444845, 0410658, 8835301, 71059033 ####[facility] [address] [place] [address] Lymphocytes (Bld) [#/Vol] 3.4 E9/L Normal 1.0-4.0 [facility] Comment on above: Performed By: #### 1 2411001, 0168325, 7142492, 98683898 ####[address] [place] [address] Lymphocytes/100 WBC (Bld) 31.0 % Normal 14.0-50.0 [facility] Comment on above: Performed By: #### 1 3647061, 7659198, 4451896, 57217849 ####[address] [address] MCH (RBC) [Entitic mass] 30.1 pg Normal 27.0-34.0 [facility] Comment on above: Performed By: #### 1 4139019, 5433870, 9344464, 31049140 ####[address] [address] MCHC (RBC) [Mass/Vol] 33.8 g/dL Normal 31.4-36.0 [facility] Comment on above: Performed By: #### 1 6273585, 6817645, 1579983, 93186261 ####[address] [place] [address] MCV (RBC) [Entitic vol] 89.1 fL Normal 80.0-100.0 F [facility] Comment on above: Performed By: #### 1 8071254, 0288416, 1379405, 75273646 ####[address] [address] Monocytes (Bld) [#/Vol] 0.5 E9/L Normal 0.2-1.0 F [facility] Comment on above: Performed By: #### 1 4128959, 8361255, 1653202, 53583228 ####[address] [address] Neutrophils (Bld) [#/Vol] 6.5 E9/L Normal 2.0-7.5 [facility] Comment on above: Performed By: #### 1 4093657, 6049692, 7775802, 43430554 ####[address] [address] Neutrophils/100 WBC (Bld) 60.4 % Normal 36.0-75.0 [facility] Comment on above: Performed By: #### 1 7326788, 1173244, 6117165, 32160793 ####[address] [address] Platelet mean volume (Bld) [Entitic vol] 8.3 fL Normal 6.4-10.8 [facility] Comment on above: Performed By: #### 1 4041473, 3630837, 9871232, 56704548 ####[address] [address] Platelets (Bld) [#/Vol] 463.0 E9/L Normal 150.0-500.0 [facility] Comment on above: Performed By: #### 1 8289542, 7741512, 2352051, 50220683 ####[address] [address] RBC (Bld) [#/Vol] 4.9 E12/L Normal 4.3-5.9 [facility] Comment on above: Performed By: #### 1 4004880, 7179808, 2705885, 91407963 ####[address] [address] WBC corrected for nucl RBC Auto (Bld) [#/Vol] 10.8 E9/L Normal 4.0-11.0 [facility] Comment on above: Performed By: #### 1 2464091, 7021173, 9086567, 23044563 ####[facility] [address] [place] [address] CHEMISTRYOrdered By: SYSTEM SYSTEM on 07-26-2023 Anion [...] ton 07-26-2023 CT Abdomen/Pelvis w/ Contrast Normal [facility] Consent for Treatmenton 06-28 Consent for Treatment [id number] .00TIFF Normal [facility] Discharge Instructionson Discharge Instructions [id number] #1.00TIFF Normal [facility] ED Clinical Summaryon 2023 ED Clinical Summary Normal [facility] ED Note-Physicianon 07-26-19 ED Note-Physician Normal [facility] Comment on above: Result Comment: Elec tronically Signed By: Darren Lomax DObr\Date and Time Signed: 07/26/23 12:21 EDT ED Patient Education Noteon 07-26-2023 ED Patient Education Note Normal [facility] ED Patient Summaryon 024 ED Patient Summary Normal [facility] HEMATOLOGYOrdered By: SYSTEM SYSTEM on 07-26-2023 Basophils/100 [...] test) Ql Negative (07/26/23 9:47 AM) Normal [facility] [place] Sero UA with Cult Rflxon 07-26-19 Color (U) Colorless Abnormal Yellow [facility] Comment on above: Result Comment: Micr oscopic readings are only performed on those samples that meet specific criteria set forth by [facility]. Performed By: #### 4 [id number] ####[facility] [address] [place] [address] Glucose (U) [Mass/Vol] Negative Normal Negative [facility] Comment on above: Performed By: #### 4 [id number] ####[address] [place] [address] Ketones Ql (U) Negative Normal Negative [facility] Comment on above: Performed By: #### 4 [id number] ####[facility] [address] [place] [address] UA Blood Negative Normal Negative [facility] Comment on above: Performed By: #### 4 [id number] ####[facility] [address] [place] [address] UA Clarity Clear Normal Clear [facility] Comment on above: Performed By: #### 4 [id number] ####[facility] [address] [place] [address] UA Leuk Est Negative Normal Negative [facility] Comment on above: Performed By: #### 4 [id number] ####[facility] [address] [place] [address] UA Nitrite Negative Normal Negative [facility] Comment on above: Performed By: #### 4 068242765 ####[facility] [address] [place] [address] UA pH 7.0 Invalid Interpretation Code 5.0-9.0 [facility] Comment on above: Performed By: #### 4 [id number] ####[facility] [address] [place] [address] UA Protein Negative Normal Negative [facility] Comment on above: Performed By: #### 4 [id number] ####[address] [address] UA Spec Grav 1.008 Invalid Interpretation Code 1.005-1.030 [facility] Comment on above: Performed By: #### 4 [id number] ####[facility] [address] [place] [address] UA Urobilinogen Negative Normal Negative [facility] Comment on above: Performed By: #### 4 [id number] ####[address] [address] Urobilinogen (U) [Mass/Vol] Negative Normal Negative [facility] Comment on above: Performed By: #### 4 [id number] ####[facility] [address] [place] [address] UA Spec Desc Clean Catch Normal [facility] Comment on above: Performed By: #### 4 [id number] ####[facility] [address] [place] [address] URINALYSISOrdered By: SYSTEM SYSTEM on 07-26-2023 Color (U) Colorless 1 *ABN* (07/26/23 10:26 AM) Invalid Interpretation Code Yellow [facility] [place]A Auto SS Comment on above: Interpretive Data: M icroscopic readings are only performed on those samples that meet specific criteria set forth by [facility]. Glucose (U) [Mass/Vol] Negative Normal Negat ivemg/d L FT UA Auto SS Ketones Ql (U) Negative Normal Negativemg/d L FT UA Auto SS UA Blood Negative Normal Negativemg/d L [facility] UA Auto SS UA Clarity Clear (07/26/23 10:26 AM) Normal Clear [facility] UA Auto SS UA Leuk Est Negative Normal NegativeLeu/ uL FT UA Auto SS UA Nitrite Negative Normal Negativemg/d L [facility] UA Auto SS UA pH 7.0 *NA* (07/26/23 10:26 AM) Invalid Interpretation Code 5.0 - 9.0 [facility] UA Auto SS UA Protein Negative Normal Negativemg/d L FT UA Auto SS UA Spec Grav 1.008 *NA* (07/26/23 10:26 AM) Invalid Interpretation Code 1.005 - 1.030 [facility] UA Auto SS UA Urobilinogen Negative Normal Negativemg/d L FT UA Auto SS Urobilinogen (U) [Mass/Vol] Negative Normal Negativemg/d L [facility] UA Auto SS URINALYSISOrdered By: Darren Lomax on 07-26-2023 UA Spec Desc Clean Catch (07/26/23 10:26 AM) Normal [facility] [place] UA Auto SS Work Phone: eGFRon 07-26-2023 eGFR 102 mL/min/1.73 m2 Normal >=59 [facility] Comment on above: Order Comment: Order added by Discern Expert. Performed By: #### 1 9148447, 0119985, 8533066, 34036015 ####[address] [place] [address] Physician Orderon 07-24-2023 Physician Order [id number]#1 .00TIFF Normal [facility] B hCG Qualon 07-19-2023 Beta HCG ( test) Ql Negative Normal [facility] Comment on above: Performed By: #### 1 4484036, 9347330, 82814981, 46824306, 6743098, 80088324, 5700544 ####[facility] [address] [place] [address] BMPon 07-19-2023 Calcium [Mass/Vol] 9.7 mg/dL Normal 8.9-11.1 [facility] Comment on above: Performed By: #### 1 5469432, 9278479, 33821636, 12984879, 9390880, 28674481, 8203022 ####[facility] [address] [place] [address] Chloride [Moles/Vol] 100 mmol/L Low 101-111 [facility] Comment on above: Performed By: #### 1 4610737, 3442601, 16817213, 97549097, 4633771, 19223035, 2406969 ####[facility] [address] [place] [address] Glucose [Mass/Vol] 106 mg/dL Normal 55-199 [facility] Comment on above: Performed By: #### 1 5795617, 5395390, 99022598, 23541496, 4178353, 96946712, 5609328 ####[facility] [address] [place] [address] Potassium [Moles/Vol] 3.6 mmol/L Normal 3.5-5.3 [facility] Comment on above: Performed By: #### 1 5343519, 1086604, 24557817, 97191132, 4993229, 74585127, 0755468 ####[facility] [address] [place] [address] Sodium [Moles/Vol] 136 mmol/L Normal 135-145 [facility] Comment on above: Performed By: #### 1 0342992, 7209606, 80527427, 32081915, 5701465, 73426519, 9186028 ####[facility] [address] [place] [address] Urea nitrogen [Mass/Vol] 7 mg/dL Normal 5-21 [facility] Comment on above: Performed By: #### 1 9677353, 3007614, 34148346, 77751703, 8332278, 09158951, 7983054 ####[facility] [address] [place] [address] Anion gap [Moles/Vol] 14 mmol/L Normal 6-16 [facility] Comment on above: Performed By: #### 1 3691078, 3188259, 34012928, 14876130, 7595264, 94550491, 5914582 ####[facility] [address] [place] [address] CO2 [Moles/Vol] 26 mmol/L Normal 21-31 [facility] Comment on above: Performed By: #### 1 0343323, 6103450, 01652430, 42078729, 7169736, 76020511, 5456102 ####[facility] [address] [place] [address] Creatinine [Mass/Vol] 0.8 mg/dL Normal 0.5-1.3 [facility] Comment on above: Performed By: #### 1 9004055, 2783447, 32135129, 00939194, 3462901, 59775803, 8133122 ####[facility] [address] [place] [address] Urea nitrogen/Creatinine [Mass ratio] 9 No Units Low 10-20 [facility] Comment on above: Performed By: #### 1 8329101, 9896731, 85363546, 44918525, 7008526, 65389078, 4090288 ####[facility] [address] [place] [address] CBC w/ Auto Diffon 4 Basophils/100 WBC (Bld) 0.3 % Normal 0.0-2.0 F [facility] Comment on above: Performed By: #### 1 1612210, 4700207, 45276491, 94817918, 0797299, 66323582, 8252967 ####[facility] [address] [place] [address] Basophils/Leukocytes Auto (Bld) [Pure # fraction] 0.0 E9/L Normal 0.0-0.2 [facility] Comment on above: Performed By: #### 1 0541317, 6678560, 47775063, 99244160, 1767312, 03905245, 8281494 ####[place] [address] [place] [address] Eosinophils (Bld) [#/Vol] 0.2 E9/L Normal 0.0-0.5 [facility] Comment on above: Performed By: #### 1 1539884, 3297914, 50988765, 77093403, 1204295, 30162963, 6879062 ####[address] [address] Eosinophils/100 WBC (Bld) 1.7 % Normal 0.0-8.0 [facility] Comment on above: Performed By: #### 1 3672340, 6820179, 52121646, 71561940, 0052155, 27219091, 1260574 ####[place] [address] Erythrocyte distribution width (RBC) [Ratio] 13.0 % Normal 10.9-14.2 [facility] Comment on above: Performed By: #### 1 3564052, 3235516, 99047091, 32411328, 9966003, 37695143, 6810575 ####[place] [address] Hematocrit (Bld) [Volume fraction] 42.7 % Normal 34.0-46.0 [facility] Comment on above: Performed By: #### 1 0836039, 0280557, 62286514, 73383515, 0110979, 00269918, 5241581 ####[address] [address] Hemoglobin (Bld) [Mass/Vol] 14.7 g/dL Normal 12.0-16.0 [facility] Comment on above: Performed By: #### 1 8485586, 1714966, 76397003, 46063783, 7414347, 31954171, 0579959 ####[place] [address] Lymphocytes (Bld) [#/Vol] 1.4 E9/L Normal 1.0-4.0 [facility] Comment on above: Performed By: #### 1 8374783, 6656049, 70569530, 51686955, 1980452, 08507638, 2233201 ####[facility] [address] [place] 2[address]57 Lymphocytes/100 WBC (Bld) 13.2 % Low 14.0-50.0 [facility] Comment on above: Performed By: #### 1 3447174, 4875802, 34941716, 83010091, 3566614, 38934646, 1721360 ####[facility] [address] [place] 2198857 MCH (RBC) [Entitic mass] 30.6 pg Normal 27.0-34.0 [facility] Comment on above: Performed By: #### 1 5684329, 8573126, 79676045, 78658608, 6849665, 19981391, 5458700 ####[facility] [address] [place] [address] MCHC (RBC) [Mass/Vol] 34.5 g/dL Normal 31.4-36.0 [facility] Comment on above: Performed By: #### 1 1049456, 4031930, 68340427, 73729440, 2299933, 96191539, 1033606 ####[place] [address] [place] 2[address]57 MCV (RBC) [Entitic vol] 88.8 fL Normal 80.0-100.0 F [facility] Comment on above: Performed By: #### 1 4375463, 2454729, 45461278, 63614740, 8944779, 87322717, 2821069 ####[address] [place] [address] Monocytes (Bld) [#/Vol] 0.5 E9/L Normal 0.2-1.0 F [facility] Comment on above: Performed By: #### 1 5134668, 1208770, 31704359, 42041452, 0432049, 00698211, 8619659 ####[facility] [address] [place] [address] Neutrophils (Bld) [#/Vol] 8.8 E9/L High 2.0-7.5 [facility] Comment on above: Performed By: #### 1 4820011, 8131516, 54603035, 43540632, 0839531, 81887573, 7395304 ####[address] [place] [address] Neutrophils/100 WBC (Bld) 80.3 % High 36.0-75.0 [facility] Comment on above: Performed By: #### 1 3766909, 2903563, 56774660, 01298014, 1774076, 85886881, 0895257 ####[address] [address] Platelet mean volume (Bld) [Entitic vol] 7.7 fL Normal 6.4-10.8 [facility] Comment on above: Performed By: #### 1 7759484, 7583290, 66533336, 95576333, 9144374, 59919524, 2760050 ####[address] [address] Platelets (Bld) [#/Vol] 430.0 E9/L Normal 150.0-500.0 [facility] Comment on above: Performed By: #### 1 6070378, 3835713, 31960696, 87131528, 4571854, 11065485, 9684679 ####[address] [place] [address] RBC (Bld) [#/Vol] 4.8 E12/L Normal 4.3-5.9 [facility] Comment on above: Performed By: #### 1 6356266, 2934799, 11164643, 17079087, 6551119, 57114936, 0498369 ####[facility] [address] [place] [address] WBC corrected for nucl RBC Auto (Bld) [#/Vol] 11.0 E9/L Normal 4.0-11.0 [facility] Comment on above: Performed By: #### 1 5825675, 1879542, 23568249, 74603638, 3326966, 99582583, 8366398 ####[facility] [address] [place] [address] CHEMISTRYOrdered By: SYSTEM SYSTEM on 07-19-2023 Anion [...] Tegan Sammie, November 2017) Urea nitrogen [Mass/Vol] 7 mg/dL Normal 5 - 21 mg/dL [facility] Urea nitrogen/Creatinine [Mass ratio] 9 mg/mg Low 10 - 20 [facility] COAGULATIONOrdered By: Gogo Walters on 07-19-2023 aPTT Coag (PPP) [Time] 38.7 s High 25.1 - 36.5 second(s) [facility] [place] [facility] Comment on above: Interpretive Data: Nirav cherry 15 days - 4 weeks 1 - [...] the same coagulation reagent and instrumentation as [facility] [place] Currently there are no coagulation studies available worldwide for children to 14 days, and no normal ranges. Heparin therapeutic range (represented by Anti-Factor Xa activity of 0.2 - 0.4 U/mL) corresponds to PTT of 56.6 - 109.0 sec. Fibrin D-dimer FEU (PPP) [Mass/Vol] ng/mL FEU Low 215 - 500 ng/mL FEU [facility] [place] Comment on above: Interpretive [...] [Relative time] 1.17 {INR} Invalid Interpretation Code [facility] [place] [facility] Comment on above: Interpretive Data: I NR results are specifically intended to assess patients stabilized on long-term Anticoagulation therapy suggested INR s Less Intensive Anticoagulation 2.0 3.0 Conventional Range 3.0 4.5 PT Coag (PPP) [Time] 13.1 s High 9.4 - 1 2.5 second(s) [facility] [place] [facility] Comment on above: Interpretive [...] the same coagulation reagent and instrumentation as [facility] [place] Currently there are no coagulation studies available worldwide for children to 14 days, and no normal ranges. Consent for Treatmenton 06-27 Consent for Treatment [id number]#1 .00TIFF Normal [facility] D-Dimeron 07-19-2023 Fibrin D-dimer FEU (PPP) [Mass/Vol] <215 Low 215-500 [facility] Comment on above: Result Comment: This assay [...] skin infectionsLiver cirrhosisPregnancy Performed By: #### 1 7779578, 7309973, 82798487, 14726230, 1389116, 64024269, 0636683 ####[facility] [address] [place] [address] Discharge Instructionson Discharge Instructions [id number] [id number]# 1.00TIFF Normal [facility] ED Clinical Summaryon 2023 ED Clinical Summary Normal Chavo vasquez [facility] ED Note-Physicianon 07-19-19 ED Note-Physician Normal [facility] Comment on above: Result Comment: Elec tronically Signed By: Ulisses Mckinney PA-C\.br\Date and Time Signed: 07/19/23 14:03 EDT\.br\Electronically Co-Signed By: Mary Jane Palm M.D.\.br\Date and Time Co-Signed: 07/19/23 19:21 EDT ED Patient Education Noteon 07-19-2023 ED Patient Education Note Normal [facility] ED Patient Summaryon 024 ED Patient Summary Normal [facility] HEMATOLOGYOrdered By: SYSTEM SYSTEM on 07-19-2023 Basophils/100 [...] Remisol Heme Monitor Recordon 07-19-2023 Monitor Record [id number]# 1.00TIFF Normal [facility] PT & PTTon 07-19-2023 aPTT Coag (PPP) [Time] 38.7 second(s) High 25.1-36.5 [facility] Comment on above: Result Comment: Para meter [...] the same coagulation reagent and instrumentation as [facility] [place] Currently there are no coagulation studies available worldwide for children to 14 days, and no normal ranges. Heparin therapeutic range (represented by Anti-Factor Xa activity of 0.2 - 0.4 U/mL) corresponds to PTT of 56.6 - 109.0 sec. Performed By: #### 1 9424066, 7352862, 09294510, 21781107, 2166059, 96514246, 6859826 ####[facility] [address] [place] [address] INR Coag (PPP) [Relative time] 1.17 {INR} Invalid Interpretation Code [facility] Comment on above: Result Comment: INR results are specifically intended to assess patients stabilized on long-term Anticoagulation therapy suggested INR?s ?Less Intensive Anticoagulation? 2.0 ? 3.0Conventional Range 3.0 ? 4.5 Performed By: #### 1 0700753, 5744021, 03568631, 17781964, 3120692, 02377284, 5684790 ####[facility] [address] [place] [address] PT Coag (PPP) [Time] 13.1 second(s) High 9.4-12.5 [facility] Comment on above: Result Comment: 15 d [...] the same coagulation reagent and instrumentation as [facility] [place] Currently there are no coagulation studies available worldwide for children to 14 days, and no normal ranges. Performed By: #### 1 6558963, 5288691, 32858705, 33336834, 8638076, 99739419, 1798815 ####[facility] [address] [place] [address] SEROLOGYOrdered By: Brii Walters on 07-19-2023 Beta HCG ( test) Ql Negative (07/19/23 9:38 AM) Normal [facility] [place] Man Sero Troponin 0 Hr.on 07-19-2023 Troponin I.cardiac [Mass/Vol] ng/mL Low 10.10-27.10 [facility] Comment on above: Result Comment: The 95% CI (Confidence Interval) PPV (Positive Predictive Value) for myocardial infarction in females is 38 pg/mL, in males 51 pg/mL. The results should be used in conjunction with clinical conditions of myocardial infarction.(Access High Sensitivity Troponin I Instructions For Use, [employer], November 2017) Performed By: #### 1 1290428, 1988439, 79732851, 36054107, 9347424, 96829949, 3083142 ####[facility] [address] [place] [address] XR Chest Single Viewon 07-18 XR Chest Single View Normal Fish er [facility] eGFRon 07-19-2023 eGFR 102 mL/min/1.73 m2 Normal >=59 [facility] Comment on above: Order Comment: Order added by Discern Expert. Performed By: #### 1 9816446, 0460011, 91959621, 76453247, 4841783, 14022115, 2328232 ####[facility] [address] [place] [address] ED Note-Physicianon 07-14-19 ED Note-Physician Normal [facility] Comment on above: Result Comment: Elec tronically Signed By: Siomara Nettles PA-C\.br\Date and Time Signed: 07/12/23 20:40 EDT\.br\Electronically Co-Signed By: Justo Arias DO\.br\Date and Time Co-Signed: 07/14/23 07:25 EDT Physician Orderon 07-14-2023 Physician Order [id number]#1 .00TIFF Normal [facility] XR Chest Single Viewon 07-12 XR Chest Single View Normal [facility] BMPon 07-12-2023 Anion gap [Moles/Vol] 14 mmol/L Normal 6-16 [facility] Comment on above: Performed By: #### 2 136010, 60936562, 70482878, 6817807, 6546781, 80188092 ####[facility] [address] [place] [address] Calcium [Mass/Vol] 10.1 mg/dL Normal 8.9-11.1 [facility] Comment on above: Performed By: #### 2 384308, 18887117, 19749642, 1980027, 3961543, 58664523 ####[facility] [address] [place] [address] Chloride [Moles/Vol] 101 mmol/L Normal 101-111 [facility] Comment on above: Performed By: #### 2 345678, 82995294, 65456526, 8684210, 5031342, 60666945 ####[facility] [address] [place] [address] CO2 [Moles/Vol] 24 mmol/L Normal 21-31 [facility] Comment on above: Performed By: #### 2 247118, 86487696, 81077868, 8401457, 5832857, 94513442 ####[facility] [address] [place] [address] Creatinine [Mass/Vol] 0.9 mg/dL Normal 0.5-1.3 [facility] Comment on above: Performed By: #### 2 684236, 59246693, 20380654, 8698690, 8690505, 69375711 ####[facility] [address] [place] [address] Glucose [Mass/Vol] 98 mg/dL Normal 55-199 [facility] Comment on above: Performed By: #### 2 066181, 18818601, 54732101, 3804478, 5720398, 49987732 ####[facility] [address] [place] [address] Potassium [Moles/Vol] 3.1 mmol/L Low 3.5-5.3 [facility] Comment on above: Performed By: #### 2 840331, 68061428, 24988847, 9317896, 3340656, 58860305 ####[facility] [address] [place] [address] Sodium [Moles/Vol] 136 mmol/L Normal 135-145 [facility] Comment on above: Performed By: #### 2 695846, 46845900, 18928709, 4776800, 2722947, 79146811 ####[address] [address] Urea nitrogen [Mass/Vol] 8 mg/dL Normal 5-21 [facility] Comment on above: Performed By: #### 2 757068, 48566345, 41109825, 2120058, 4075852, 00656331 ####[address] [address] Urea nitrogen/Creatinine [Mass ratio] 9 No Units Low 10-20 [facility] Comment on above: Performed By: #### 2 864277, 61872060, 97556021, 1925397, 5410796, 97027647 ####[facility] [address] [place] [address] CBC w/ Auto Diffon 4 Basophils/100 WBC (Bld) 0.5 % Normal 0.0-2.0 F [facility] Comment on above: Performed By: #### 2 120895, 98209570, 38053009, 9264086, 8862553, 36072298 ####[address] [place] [address] Basophils/Leukocytes Auto (Bld) [Pure # fraction] 0.1 E9/L Normal 0.0-0.2 [facility] Comment on above: Performed By: #### 2 470851, 20359673, 96819360, 3279916, 1177882, 88793643 ####[facility] [address] [place] [address] Eosinophils (Bld) [#/Vol] 0.1 E9/L Normal 0.0-0.5 [facility] Comment on above: Performed By: #### 2 875804, 10350049, 16712840, 0212712, 1054623, 01033931 ####[address] [address] Eosinophils/100 WBC (Bld) 0.4 % Normal 0.0-8.0 [facility] Comment on above: Performed By: #### 2 885744, 40531108, 32435804, 7100988, 5850700, 36074138 ####[address] [address] Erythrocyte distribution width (RBC) [Ratio] 13.0 % Normal 10.9-14.2 [facility] Comment on above: Performed By: #### 2 480765, 69401313, 33068568, 7035027, 0039975, 08125354 ####[address] [address] Hematocrit (Bld) [Volume fraction] 41.4 % Normal 34.0-46.0 [facility] Comment on above: Performed By: #### 2 373500, 50007524, 08617075, 0832497, 3567815, 29066820 ####[place] [place] [address] Hemoglobin (Bld) [Mass/Vol] 14.1 g/dL Normal 12.0-16.0 [facility] Comment on above: Performed By: #### 2 334858, 13212568, 58676076, 2136680, 9943110, 95596270 ####[address] [address] Lymphocytes (Bld) [#/Vol] 3.3 E9/L Normal 1.0-4.0 [facility] Comment on above: Performed By: #### 2 231895, 68182148, 96647186, 1064938, 0578091, 05442366 ####[address] [address] Lymphocytes/100 WBC (Bld) 26.4 % Normal 14.0-50.0 [facility] Comment on above: Performed By: #### 2 064297, 02244394, 78631705, 7652457, 4647047, 77038533 ####[address] [address] MCH (RBC) [Entitic mass] 30.1 pg Normal 27.0-34.0 [facility] Comment on above: Performed By: #### 2 504882, 56882352, 63655244, 9087955, 0844404, 24141572 ####[address] [address] MCHC (RBC) [Mass/Vol] 34.1 g/dL Normal 31.4-36.0 [facility] Comment on above: Performed By: #### 2 045721, 93652572, 50588747, 6324631, 2413133, 55431653 ####[address] [address] MCV (RBC) [Entitic vol] 88.3 fL Normal 80.0-100.0 F [facility] Comment on above: Performed By: #### 2 546970, 54274167, 02913100, 2506967, 0756583, 90288998 ####[address] [address] Monocytes (Bld) [#/Vol] 0.8 E9/L Normal 0.2-1.0 F [facility] Comment on above: Performed By: #### 2 514456, 67837742, 13945703, 1980481, 7792385, 55951403 ####[address] [address] Neutrophils (Bld) [#/Vol] 8.4 E9/L High 2.0-7.5 [facility] Comment on above: Performed By: #### 2 170814, 58184305, 77250402, 6638329, 5283778, 89417151 ####[address] [address] Neutrophils/100 WBC (Bld) 66.6 % Normal 36.0-75.0 [facility] Comment on above: Performed By: #### 2 677933, 82598523, 42142042, 8072048, 7334092, 97106212 ####[address] [address] Platelet 446.0 E9/L Normal 150.0-500.0 [facility] Comment on above: Performed By: #### 2 765044, 39123992, 37488851, 4100687, 6530890, 06198618 ####[address] [address] Platelet mean volume (Bld) [Entitic vol] 6.7 fL Normal 6.4-10.8 [facility] Comment on above: Performed By: #### 2 699085, 37155814, 51293679, 6231341, 1386504, 76700689 ####[address] [address] RBC (Bld) [#/Vol] 4.7 E12/L Normal 4.3-5.9 [facility] Comment on above: Performed By: #### 2 289973, 16190979, 81964356, 3339745, 1314452, 76373806 ####[address] [address] WBC corrected for nucl RBC Auto (Bld) [#/Vol] 12.6 E9/L High 4.0-11.0 [facility] Comment on above: Performed By: #### 2 866687, 38367900, 43643205, 1475218, 9856342, 60880841 ####Alvarado [facility] [address] [place] [address] CHEMISTRYOrdered By: SYSTEM SYSTEM on 07-12-2023 Anion [...] 35.8 s Normal 25.1 - 36.5 second(s) [facility] [place] [facility] Comment on above: Interpretive Data: Nirav carey 15 days - 4 weeks 1 - 5 months 6 - 11 months 1 - 5 years 6 - 10 years 11 - 17 years PTT Mean: 35.4 (27.6-45.6) Mean: 33.5 (24.8-40.7) Mean: 32.4 (25.1-40.7) Mean: 31.6 (24.0-39.2) Mean: 31.6 (26.9-38.7) Mean: 31.0 (24.6-38.4) Pediatric Reference ranges were obtained from a study by marty Ludwig prepared from 1437 samples obtained at 7 different centers using the same coagulation reagent and instrumentation as [facility] [place] Currently there are no coagulation studies available worldwide for children to 14 days, and no normal ranges. Heparin therapeutic range (represented by Anti-Factor Xa activity of 0.2 - 0.4 U/mL) corresponds to PTT of 56.6 - 109.0 sec. INR Coag (PPP) [Relative time] 1.18 {INR} Invalid Interpretation Code [facility] [place] [facility] Comment on above: Interpretive Data: I NR results are specifically intended to assess patients stabilized on long-term Anticoagulation therapy suggested INR s Less Intensive Anticoagulation 2.0 3.0 Conventional Range 3.0 4.5 PT Coag (PPP) [Time] 13.2 s High 9.4 - 1 2.5 second(s) [facility] [place] [facility] Comment on above: Interpretive [...] ranges were obtained from a study by marty Ludwig prepared from 1437 samples obtained at 7 different centers using the same coagulation reagent and instrumentation as [facility] [place]. Currently there are no coagulation studies available worldwide for children to 14 days, and no normal ranges. Consent for Treatmenton 06-26 Consent for Treatment [id number]#1 .00TIFF Normal [facility] Discharge Instructionson Discharge Instructions [id number]# 1.00TIFF Normal [facility] ED Clinical Summaryon 2023 ED Clinical Summary Normal Chavo [facility] ED Patient Education Noteon 07-12-2023 ED Patient Education Note Normal [facility] ED Patient Summaryon 024 ED Patient Summary Normal [facility] HEMATOLOGYOrdered By: SYSTEM SYSTEM on 07-12-2023 Basophils/100 [...] 07-12-2023 Magnesium [Mass/Vol] 2.0 mg/dL Normal 1.3-2.4 Fish [facility] Comment on above: Performed By: #### 2 088105, 98164653, 23597517, 0525586, 2922943, 02309405 ####[facility] [address] [place] [address] Monitor Recordon 07-12-2023 Monitor Record [id number]# 1.00TIFF Normal [facility] PT & PTTon 07-12-2023 aPTT Coag (PPP) [Time] 35.8 second(s) Normal 25.1-36.5 [facility] Comment on above: Result Comment: Para meter 15 days - 4 weeks 1 - 5 months 6 - 11 months 1 - 5 years 6 - 10 years 11 - 17 years PTT Mean: 35.4 (27.6-45.6) Mean: 33.5 (24.8-40.7) Mean: 32.4 (25.1-40.7) Mean: 31.6 (24.0-39.2) Mean: 31.6 (26.9-38.7) Mean: 31.0 (24.6-38.4) Pediatric Reference ranges were obtained from a study by marty Ludwig prepared from 1437 samples obtained at 7 different centers using the same coagulation reagent and instrumentation as [facility] [place] Currently there are no coagulation studies available worldwide for children to 14 days, and no normal ranges. Heparin therapeutic range (represented by Anti-Factor Xa activity of 0.2 - 0.4 U/mL) corresponds to PTT of 56.6 - 109.0 sec. Performed By: #### 2 118991, 42644816, 85871242, 0261658, 5705902, 70239076 ####[facility] [address] [place] [address] INR Coag (PPP) [Relative time] 1.18 {INR} Invalid Interpretation Code [facility] Comment on above: Result Comment: INR results are specifically intended to assess patients stabilized on long-term Anticoagulation therapy suggested INR?s ?Less Intensive Anticoagulation? 2.0 ? 3.0Conventional Range 3.0 ? 4.5 Performed By: #### 2 861480, 50512735, 77708490, 3104797, 1311964, 06482388 ####[facility] [address] [place] [address] PT Coag (PPP) [Time] 13.2 second(s) High 9.4-12.5 [facility] Comment on above: Result Comment: 15 d [...] ranges were obtained from a study by marty Ludwig prepared from 1437 samples obtained at 7 different centers using the same coagulation reagent and instrumentation [place] [facility] [place] Currently there are no coagulation studies available worldwide for children to 14 days, and no normal ranges. Performed By: #### 2 508620, 17808575, 08323406, 8960167, 4950218, 03134838 ####[facility] [address] [place] [address] Physician Orderon 07-12-2023 Physician Order [id number]# 1.00TIFF Normal [facility] Troponin 0 Hr.on 07-12-2023 Troponin I.cardiac [Mass/Vol] ng/mL Low 10.10-27.10 [facility] Comment on above: Result Comment: The 95% CI (Confidence Interval) PPV (Positive Predictive Value) for myocardial infarction in females is 38 pg/mL, in males 51 pg/mL. The results should be used in conjunction with clinical conditions of myocardial infarction.(Access High Sensitivity Troponin I Instructions For Use, Tegan Essie, November 2017) Performed By: #### 2 712226, 84049342, 94985323, 1796085, 5986828, 70548795 ####[facility] [address] [place] [address] eGFRon 07-12-2023 eGFR 89 mL/min/1.73 m2 Normal >=59 [facility] Comment on above: Order Comment: Order added by Discern Expert. Performed By: #### 2 741065, 35545450, 68000738, 3530704, 1715541, 45537920 ####[facility] [address] [place] [address] Consenton 07-10-2023 Consent [id number] .00TIFF Normal [facility] C Urineon 07-09-2023 Bacteria identified Cx Nom (U) Normal [facility] Comment on above: Performed By: #### 2 363275 ####[facility] [address] [place] [address] Family Medicine Office/Clini c Noteon 07-09-2023 Family Medicine Office/Clinic Note Normal [facility] Comment on above: Result Comment: Elec tronically Signed By: Amos Castellon PA-C\.br\Date and Time Signed: 07/09/23 17:05 EDT Patient Educationon 07-09-19 Patient Education Normal [facility] ED Note-Physicianon 07-08-19 ED Note-Physician Normal [facility] Comment on above: Result Comment: Elec tronically Signed By: Sy Pickard PA-C\.br\Date and Time Signed: 07/07/23 14:17 EDT\.br\Electronically Co-Signed By: Justo Arias DO\.br\Date and Time Co-Signed: 07/08/23 06:57 EDT Nonvisit Note - PTon 024 Nonvisit Note - PT Pt did not show this date; Pt will have to return to physician for new script to return to PT. Normal [facility] Ambulatory Visit Summaryon 0 07-07-2023 Ambulatory Visit Summary Normal [facility] B hCG Qualon 07-07-2023 Beta HCG ( test) Ql Negative Normal [facility] Comment on above: Performed By: #### 2 [id number] ####[facility] [address] [place] [address] BMPon 07-07-2023 Anion gap [Moles/Vol] 10 mmol/L Normal 6-16 [facility] Comment on above: Performed By: #### 2 683111, 8007747, 6719139, 6799089, 03801976 ####[facility] [address] [place] [address] Calcium [Mass/Vol] 9.7 mg/dL Normal 8.9-11.1 [facility] Comment on above: Performed By: #### 2 666337, 0595319, 5811202, 3958912, 82815443 ####[facility] [address] [place] [address] Chloride [Moles/Vol] 106 mmol/L Normal 101-111 [facility] Comment on above: Performed By: #### 2 603859, 9475647, 2456652, 9766636, 31203280 ####[facility] [address] [place] [address] CO2 [Moles/Vol] 29 mmol/L Normal 21-31 [facility] Comment on above: Performed By: #### 2 328635, 1277827, 8582902, 7369978, 32706682 ####[facility] [address] [place] [address] Creatinine [Mass/Vol] 0.8 mg/dL Normal 0.5-1.3 [facility] Comment on above: Performed By: #### 2 702664, 8342891, 6473033, 4470629, 13857468 ####[facility] [address] [place] [address] Glucose [Mass/Vol] 102 mg/dL Normal 55-199 [facility] Comment on above: Performed By: #### 2 006773, 1772824, 9967860, 7320340, 94067519 ####[facility] [address] [facility] [place] [address] Potassium [Moles/Vol] 3.8 mmol/L Normal 3.5-5.3 [facility] Comment on above: Performed By: #### 2 259505, 1976588, 3260855, 1535350, 12193935 ####[facility] [address] [place] [address] Sodium [Moles/Vol] 141 mmol/L Normal 135-145 [facility] Comment on above: Performed By: #### 2 449487, 1598648, 0642811, 8970884, 51630696 ####[facility] [address] [place] [address] Urea nitrogen [Mass/Vol] 8 mg/dL Normal 5-21 [facility] Comment on above: Performed By: #### 2 927352, 6249101, 1566975, 2732106, 60044694 ####[address] [place] [address] Urea nitrogen/Creatinine [Mass ratio] 10 No Units Normal 10-20 [facility] Comment on above: Performed By: #### 2 347770, 3221235, 9861406, 7194344, 05605437 ####[address] [address] CBC w/ Auto Diffon 4 Basophils/100 WBC (Bld) 0.6 % Normal 0.0-2.0 F [facility] Comment on above: Performed By: #### 2 605681, 2816290, 4384723, 6009459, 18014687 ####[address] [address] Basophils/Leukocytes Auto (Bld) [Pure # fraction] 0.1 E9/L Normal 0.0-0.2 [facility] Comment on above: Performed By: #### 2 867758, 4734430, 5684594, 1891309, 35630232 ####[address] [address] Eosinophils (Bld) [#/Vol] 0.2 E9/L Normal 0.0-0.5 [facility] Comment on above: Performed By: #### 2 678177, 2030879, 3614544, 0584712, 26846813 ####[address] [address] Eosinophils/100 WBC (Bld) 2.2 % Normal 0.0-8.0 [facility] Comment on above: Performed By: #### 2 773838, 8344017, 1223852, 2776325, 61054599 ####[address] [address] Erythrocyte distribution width (RBC) [Ratio] 13.1 % Normal 10.9-14.2 [facility] Comment on above: Performed By: #### 2 175563, 9847474, 7261178, 6938857, 03865746 ####[address] [place] [address] Hematocrit (Bld) [Volume fraction] 44.2 % Normal 34.0-46.0 [facility] Comment on above: Performed By: #### 2 394211, 2259916, 3947459, 1886199, 94866740 ####[address] [address] Hemoglobin (Bld) [Mass/Vol] 14.6 g/dL Normal 12.0-16.0 [facility] Comment on above: Performed By: #### 2 602519, 2055942, 2710266, 9928058, 42806583 ####[address] [address] Lymphocytes (Bld) [#/Vol] 2.2 E9/L Normal 1.0-4.0 [facility] Comment on above: Performed By: #### 2 093491, 6370773, 8120796, 1719854, 82205845 ####[address] [address] Lymphocytes/100 WBC (Bld) 26.0 % Normal 14.0-50.0 [facility] Comment on above: Performed By: #### 2 451413, 1287453, 4553934, 7310008, 81003027 ####[address] [address] MCH (RBC) [Entitic mass] 30.1 pg Normal 27.0-34.0 [facility] Comment on above: Performed By: #### 2 157279, 7547140, 7445746, 6423726, 52507501 ####[address] [address] MCHC (RBC) [Mass/Vol] 33.1 g/dL Normal 31.4-36.0 [facility] Comment on above: Performed By: #### 2 591778, 0042305, 5208743, 3118895, 46656814 ####[address] [address] MCV (RBC) [Entitic vol] 90.7 fL Normal 80.0-100.0 F [facility] Comment on above: Performed By: #### 2 744975, 2535814, 6442166, 0079733, 50881900 ####[address] [address] Monocytes (Bld) [#/Vol] 0.5 E9/L Normal 0.2-1.0 [facility] Comment on above: Performed By: #### 2 305792, 6051609, 7198267, 4027130, 60524245 ####[address] [address] Neutrophils (Bld) [#/Vol] 5.6 E9/L Normal 2.0-7.5 [facility] Comment on above: Performed By: #### 2 868900, 9621304, 8287989, 4226955, 59956481 ####[address] [address] Neutrophils/100 WBC (Bld) 65.3 % Normal 36.0-75.0 [facility] Comment on above: Performed By: #### 2 240863, 1041128, 7160511, 7919739, 26230781 ####[address] [address] Platelet 422.0 E9/L Normal 150.0-500.0 [facility] Comment on above: Performed By: #### 2 189412, 5796163, 6574685, 7000374, 91617400 ####[address] [address] Platelet mean volume (Bld) [Entitic vol] 7.1 fL Normal 6.4-10.8 [facility] Comment on above: Performed By: #### 2 972601, 1909535, 0246827, 1607693, 28361064 ####[address] [address] RBC (Bld) [#/Vol] 4.9 E12/L Normal 4.3-5.9 [facility] Comment on above: Performed By: #### 2 922450, 8056112, 1162305, 3842491, 62956967 ####[facility] [address] [place] [address] WBC corrected for nucl RBC Auto (Bld) [#/Vol] 8.6 E9/L Normal 4.0-11.0 [facility] Comment on above: Performed By: #### 2 127890, 6262058, 6884595, 5550456, 15008263 ####[facility] [address] [place] [address] CHEMISTRYOrdered By: SYSTEM SYSTEM on 07-07-2023 Albumin [...] Treatmenton 06-26 Consent for Treatment [id number]#1 .00TIFF Normal [facility] Discharge Instructionson Discharge Instructions [id number]# 1.00TIFF Normal [facility] ED Clinical Summaryon 2023 ED Clinical Summary Normal [facility] ED Patient Education Noteon 07-07-2023 ED Patient Education Note Normal [facility] ED Patient Summaryon 024 ED Patient Summary Normal [facility] Family Medicine Office/Clini c Noteon 07-07-2023 Family Medicine Office/Clinic Note Normal [facility] Comment on above: Result Comment: Elec tronically Signed By: SANIA LUKE, LANETTE\.br\Date and Time Signed: 07/07/23 11:20 EDT HEMATOLOGYOrdered [...] 07-07-2023 Albumin [Mass/Vol] 4.8 g/dL Normal 3.3-5.0 [facility] Comment on above: Performed By: #### 2 398344, 2878212, 9678586, 8178578, 23714409 ####[facility] [address] [place] [address] Albumin/Globulin (S) [Mass conc ratio] 1.7 Normal 1.1-2.2 [facility] Comment on above: Performed By: #### 2 199961, 6070373, 4980744, 6815530, 43395548 ####[facility] [address] [place] [address] ALP [Catalytic activity/Vol] 109 Int._Unit/L High 21-98 [facility] Comment on above: Performed By: #### 2 158082, 8383591, 7626458, 1868603, 59767888 ####[facility] [address] [place] [address] ALT No additional P-5'-P [Catalytic activity/Vol] 15 Int._Unit/L Normal 6-46 [facility] Comment on above: Performed By: #### 2 190441, 7988845, 3950855, 8921540, 18596477 ####[facility] [address] [place] [address] AST [Catalytic activity/Vol] 16 Int._Unit/L Normal 5-43 [facility] Comment on above: Performed By: #### 2 198457, 7860079, 8682442, 9775961, 23392235 ####[facility] [address] [place] [address] Bilirubin [Mass/Vol] 0.3 mg/dL Normal 0.0-1.1 [facility] Comment on above: Performed By: #### 2 139336, 8350751, 4611151, 0130761, 27342194 ####[facility] [address] [place] [address] Bilirubin.direct [Mass/Vol] 0.1 mg/dL Normal 0.0-0.4 [facility] Comment on above: Performed By: #### 2 928875, 7376854, 5420406, 8187489, 84077681 ####[address] [address] Bilirubin.indirect [Mass or moles/Vol] 0.2 mg/dL Normal 0.1-0.9 [facility] Comment on above: Performed By: #### 2 192609, 1447354, 2937642, 5586720, 16671080 ####[address] [address] Globulin (S) [Mass/Vol] 2.8 g/dL Normal 1.4-4.0 [facility] Comment on above: Performed By: #### 2 137717, 1929030, 8424990, 1847046, 14815236 ####[address] [address] Protein [Mass/Vol] 7.6 g/dL Normal 6.0-7.8 [facility] Comment on above: Performed By: #### 2 069613, 1606626, 8852976, 5400397, 45014100 ####[address] [address] Lipase Levelon 07-07-2023 Lipase [Catalytic activity/Vol] 33 U/L Normal 13-58 [facility] Comment on above: Performed By: #### 2 518659, 6118331, 8719241, 6904212, 33029864 ####[facility] [address] [place] [address] Patient Educationon 07-07-19 Patient Education Normal [facility] Prescriptions/Work Noteson 0 07-07-2023 Prescriptions/Work Notes [id number]# 1.00TIFF Normal [facility] SEROLOGYOrdered By: Brii Walters on 07-07-2023 Beta HCG ( test) Ql Negative (07/07/23 11:20 AM) Normal [facility] [place] Sero UA With Cult Reflexon 2023 Bacteria LM Ql (Urine sed) TRACE Normal Trace [facility] Comment on above: Performed By: #### 1 2039463 ####[facility] [address] [place] [address] Bilirubin Ql (U) Negative Normal Negative [facility] Comment on above: Performed By: #### 1 2485841 ####[facility] [address] [place] [address] Clarity (U) CLEAR Normal Clear [facility] Comment on above: Performed By: #### 1 9719841 ####[facility] [address] [place] [address] Color (U) YELLOW Normal Yellow [facility] Comment on above: Performed By: #### 1 8628055 ####[facility] [address] [place] [address] Epithelial cells.squamous LM.HPF (Urine sed) [#/Area] 0-2 Normal 0-2 [facility] Comment on above: Performed By: #### 1 2226161 ####[facility] [address] [place] [address] Glucose Test strip (U) [Mass/Vol] Negative Normal Negative [facility] Comment on above: Performed By: #### 1 5510412 ####[facility] [address] [facility] [place] [address] Hemoglobin Ql (U) Negative Normal Negative [facility] Comment on above: Performed By: #### 1 8847312 ####[facility] [address] [place] [address] Ketones (U) [Mass/Vol] Negative Normal Negative [facility] Comment on above: Performed By: #### 1 0206991 ####[address] [place] [address] [place].plasma/[place]ze. RBC (Bld) [Mass ratio] 0-3 Normal 0-3 [facility] Comment on above: Performed By: #### 1 5768902 ####[address] [address] Mucus Ql (Urine sed) TRACE Normal [facility] Comment on above: Performed By: #### 1 0093011 ####[address] [address] Nitrite Ql (U) Negative Normal Negative [facility] Comment on above: Performed By: #### 1 1379228 ####[address] [address] pH (U) 7.0 [pH] Invalid Interpretation Code 5.0-9.0 [facility] Comment on above: Performed By: #### 1 9414100 ####[address] [address] Protein (U) [Mass/Vol] Negative Normal Negative [facility] Comment on above: Performed By: #### 1 9678813 ####[address] [address] Specific gravity (U) [Rel density] 1.015 Invalid Interpretation Code 1.005-1.030 [facility] Comment on above: Performed By: #### 1 9579667 ####[address] [address] Type of Urine collection method Clean Catch Normal [facility] Comment on above: Performed By: #### 1 4913009 ####[address] [address] Urobilinogen Qn (U) 0.2 {Jane'U}/dL Normal 0.0-1.0 [facility] Comment on above: Performed By: #### 1 3007195 ####[address] [address] WBC Auto Ql (U) Negative Normal Negative [facility] Comment on above: Performed By: #### 1 8765793 ####[facility] [address] [place] [address] WBC LM.HPF (Urine sed) [#/Area] 0-5 Normal 0-5 [facility] Comment on above: Performed By: #### 1 6963948 ####[facility] [address] [place] [address] URINALYSISOrdered By: Michael Walters on 07-07-2023 Bacteria LM Ql (Urine sed) Trace /HPF Normal Trace/HPF [facility] UA Auto SS Bilirubin Ql (U) Negative (07/07/23 11:26 AM) Normal Negative [facility] UA Auto SS Clarity (U) Clear (07/07/23 11:26 AM) Normal Clear [facility] UA Auto SS Color (U) Yellow (07/07/23 11:26 AM) Normal Yellow [facility] UA Auto SS Epithelial cells.squamous LM.HPF (Urine sed) [#/Area] 0-2 /HPF Normal 0-2/HPF [facility] UA Aut o SS Glucose Test strip (U) [Mass/Vol] Negative (07/07/23 11:26 AM) Normal Negative [facility] UA Auto SS Hemoglobin Ql (U) Negative (07/07/23 11:26 AM) Normal Negative [facility] UA Auto SS Ketones (U) [Mass/Vol] Negative (07/07/23 11:26 AM) Normal Negative [facility] UA Auto SS [place].plasma/[place]. RBC (Bld) [Mass ratio] 0-3 /HPF Normal 0-3/HPF [facility] UA A uto SS Mucus Ql (Urine sed) Trace (07/07/23 11:26 AM) Normal [facility] UA Auto SS Nitrite Ql (U) Negative (07/07/23 11:26 AM) Normal Negative [facility] UA Auto SS pH (U) 7.0 *NA* (07/07/23 11:26 AM) Invalid Interpretation Code 5.0 - 9.0 [facility] UA Auto SS Protein (U) [Mass/Vol] Negative (07/07/23 11:26 AM) Normal Negative [facility] UA Auto SS Specific gravity (U) [Rel density] 1.015 *NA* (07/07/23 11:26 AM) Invalid Interpretation Code 1.005 - 1.030 [facility] [place] UA Auto SS UA Spec Desc Clean Catch (07/07/23 11:26 AM) Normal [facility] [place] UA Auto SS Urobilinogen Qn (U) 0.5620040 {Jane'U}/dL Normal 0.0 - 1.0 EU/dL [facility] [place] UA Auto SS WBC Auto Ql (U) Negative (07/07/23 11:26 AM) Normal Negative [facility] [place] UA Auto SS WBC LM.HPF (Urine sed) [#/Area] 0-5 /HPF Normal 0-5/HPF [facility] [place] UA Auto SS XR Abdomen 1 Viewon 07-07-19 XR Abdomen 1 View Normal [facility] eGFRon 07-07-2023 eGFR 102 mL/min/1.73 m2 Normal >=59 [facility] Comment on above: Order Comment: Order added by Discern Expert. Performed By: #### 2 882173, 4566375, 0574497, 6492964, 12094766 ####[facility] [address] [place] [address] BMPon 06-29-2023 Anion gap [Moles/Vol] 11 mmol/L Normal 6-16 [facility] Comment on above: Performed By: #### 1 9522599, 5689934, 52013442, 18073691, 2561606 ####[facility] [address] [place] [address] Calcium [Mass/Vol] 9.4 mg/dL Normal 8.9-11.1 [facility] Comment on above: Performed By: #### 1 2578196, 7260697, 24732165, 19562112, 5662434 ####[facility] [address] [place] [address] Chloride [Moles/Vol] 104 mmol/L Normal 101-111 [facility] Comment on above: Performed By: #### 1 9539205, 6917967, 37818023, 80725030, 3559459 ####[facility] [address] [place] [address] CO2 [Moles/Vol] 27 mmol/L Normal 21-31 [facility] Comment on above: Performed By: #### 1 7358127, 6782751, 13017132, 37453289, 3738717 ####[facility] [address] [place] [address] Creatinine [Mass/Vol] 0.9 mg/dL Normal 0.5-1.3 [facility] Comment on above: Performed By: #### 1 3387291, 5687437, 20164101, 90373639, 7188126 ####[facility] [address] [place] [address] Glucose [Mass/Vol] 109 mg/dL Normal 55-199 [facility] Comment on above: Performed By: #### 1 4177308, 8336871, 56164430, 59781116, 3910204 ####[facility] [address] [place] [address] Potassium [Moles/Vol] 3.5 mmol/L Normal 3.5-5.3 [facility] Comment on above: Performed By: #### 1 5697908, 8480637, 17414944, 50564856, 2544084 ####[facility] [address] [place] [address] Sodium [Moles/Vol] 138 mmol/L Normal 135-145 [facility] Comment on above: Performed By: #### 1 6223080, 0694920, 78110335, 42365528, 2068471 ####[facility] [address] [place] [address] Urea nitrogen [Mass/Vol] 9 mg/dL Normal 5-21 [facility] Comment on above: Performed By: #### 1 3925206, 2278347, 21263744, 80519461, 7036600 ####[facility] [address] [place] [address] Urea nitrogen/Creatinine [Mass ratio] 10 No Units Normal 10-20 [facility] Comment on above: Performed By: #### 1 0164389, 3955584, 51645499, 70552779, 6109271 ####[address] [address] CBC w/ Auto Diffon 4 Basophils/100 WBC (Bld) 0.4 % Normal 0.0-2.0 [facility] Comment on above: Performed By: #### 1 9793021, 3513536, 40597174, 43380113, 1912097 ####[address] [address] Basophils/Leukocytes Auto (Bld) [Pure # fraction] 0.0 E9/L Normal 0.0-0.2 [facility] Comment on above: Performed By: #### 1 7049293, 2302786, 94552657, 30581672, 4474420 ####[address] [address] Eosinophils (Bld) [#/Vol] 0.0 E9/L Normal 0.0-0.5 [facility] Comment on above: Performed By: #### 1 7570342, 4255191, 70338030, 44170234, 4734333 ####[address] [address] Eosinophils/100 WBC (Bld) 0.3 % Normal 0.0-8.0 [facility] Comment on above: Performed By: #### 1 8235956, 3933039, 59146096, 47674440, 4899857 ####[address] [address] Erythrocyte distribution width (RBC) [Ratio] 13.1 % Normal 10.9-14.2 [facility] Comment on above: Performed By: #### 1 4315450, 5319803, 86312105, 88924900, 9687332 ####[address] [address] Hematocrit (Bld) [Volume fraction] 39.8 % Normal 34.0-46.0 [facility] Comment on above: Performed By: #### 1 1854924, 6325675, 39020554, 29290619, 8931681 ####[facility] [address] [place] [address] Hemoglobin (Bld) [Mass/Vol] 13.2 g/dL Normal 12.0-16.0 [facility] Comment on above: Performed By: #### 1 4760710, 8358987, 72229473, 78505230, 3684673 ####[facility] [address] [place] [address] Lymphocytes (Bld) [#/Vol] 1.6 E9/L Normal 1.0-4.0 [facility] Comment on above: Performed By: #### 1 9672894, 7226972, 11627470, 42580422, 1322422 ####[address] [address] Lymphocytes/100 WBC (Bld) 11.8 % Low 14.0-50.0 [facility] Comment on above: Performed By: #### 1 7107026, 1890017, 28647183, 24310057, 5804186 ####[address] [address] MCH (RBC) [Entitic mass] 29.7 pg Normal 27.0-34.0 [facility] Comment on above: Performed By: #### 1 1098763, 8383992, 82757846, 27285850, 4162428 ####[address] [place] [address] MCHC (RBC) [Mass/Vol] 33.1 g/dL Normal 31.4-36.0 [facility] Comment on above: Performed By: #### 1 0269535, 1795224, 41293221, 44494621, 1681591 ####[address] [place] [address] MCV (RBC) [Entitic vol] 89.7 fL Normal 80.0-100.0 F [facility] Comment on above: Performed By: #### 1 6052442, 8327726, 06731919, 23499420, 9729502 ####[facility] [address] [place] [address] Monocytes (Bld) [#/Vol] 0.5 E9/L Normal 0.2-1.0 [facility] Comment on above: Performed By: #### 1 9741096, 8458598, 27149871, 80468882, 0465647 ####[address] [address] Neutrophils (Bld) [#/Vol] 11.3 E9/L High 2.0-7.5 [facility] Comment on above: Performed By: #### 1 2160477, 5038750, 68987624, 74602369, 9436396 ####[address] [address] Neutrophils/100 WBC (Bld) 83.8 % High 36.0-75.0 [facility] Comment on above: Performed By: #### 1 6865503, 7652036, 45670375, 87121164, 3659485 ####[address] [address] Platelet 418.0 E9/L Normal 150.0-500.0 [facility] Comment on above: Performed By: #### 1 7443039, 0081808, 96079360, 55378698, 2913163 ####[address] [address] Platelet mean volume (Bld) [Entitic vol] 7.0 fL Normal 6.4-10.8 [facility] Comment on above: Performed By: #### 1 9076064, 2237308, 87545888, 53218306, 6760034 ####[address] [place] [address] RBC (Bld) [#/Vol] 4.4 E12/L Normal 4.3-5.9 [facility] Comment on above: Performed By: #### 1 5989719, 0015450, 10368529, 44313434, 0488821 ####[facility] [address] [place] [address] WBC corrected for nucl RBC Auto (Bld) [#/Vol] 13.5 E9/L High 4.0-11.0 [facility] Comment on above: Performed By: #### 1 6086724, 2299505, 24463429, 28905222, 1702232 ####[facility] [address] [place] [address] CHEMISTRYOrdered By: SYSTEM SYSTEM on 06-29-2023 Anion [...] Sensitivity Troponin I Instructions For Use, Tegan Essie, November 2017) Urea nitrogen [Mass/Vol] 9 mg/dL Normal 5 - 21 mg/dL [facility] Urea nitrogen/Creatinine [Mass ratio] 10 mg/mg Normal 10 - 20 [facility] COAGULATIONOrdered By: Gogo Walters on 06-29-2023 aPTT Coag (PPP) [Time] 34.2 s Normal 25.1 - 36.5 second(s) [facility] [place] Auto Coag Comment on above: Interpretive [...] the same coagulation reagent and instrumentation as [facility] [place]. Currently there are no coagulation studies available worldwide for children to 14 days, and no normal ranges. Heparin therapeutic range (represented by Anti-Factor Xa activity of 0.2 - 0.4 U/mL) corresponds to PTT of 56.6 - 109.0 sec. INR Coag (PPP) [Relative time] 1.11 {INR} Invalid Interpretation Code [facility] [place] Coag Comment on above: Interpretive Data: I NR results are specifically intended to assess patients stabilized on long-term Anticoagulation therapy suggested INR s Less Intensive Anticoagulation 2.0 3.0 Conventional Range 3.0 4.5 PT Coag (PPP) [Time] 12.5 s Normal 9.4 - 1 2.5 second(s) [facility] [place] Comment on above: Interpretive [...] the same coagulation reagent and instrumentation as [facility] [place] Currently there are no coagulation studies available worldwide for children to 14 days, and no normal ranges. Consent for Treatmenton Consent for Treatment [id number]#1 .00TIFF Normal [facility] Discharge Instructionson Discharge Instructions [id number]# 1.00TIFF Normal [facility] ED Clinical Summaryon 2023 ED Clinical Summary Normal [facility] ED Note-Physicianon 06-29-19 ED Note-Physician Normal [facility] Comment on above: Result Comment: Elec tronically Signed By: Suman DC, Guille\.br\Date and Time Signed: 06/29/23 08:41 EST ED Patient Education Noteon 06-29-2023 ED Patient Education Note Normal [facility] ED Patient Summaryon 024 ED Patient Summary Normal [facility] HEMATOLOGYOrdered By: SYSTEM SYSTEM on 06-29-2023 Basophils/100 [...] 4 Influenzae A Ag Negative Normal Negative [facility] Comment on above: Performed By: #### 1 [id number], [id number] ####[facility] [address] [place] [address] Influenzae B Ag Negative Normal Negative [facility] Comment on above: Result Comment: Test sensitivity and specificity vary for age group, specimen type, antigen types, and prevalence of disease. Test results must be evaluated in conjunction with other clinical data available to the physician. Individuals who received nasally administered Influenza A vaccine may have positive test results up to 3 days after vaccination. Performed By: #### 1 [id number], [id number] ####[facility] [address] [place] [address] MICRO OTHER TESTSOrdered By: Sharon Walters on 06-29-2023 Influenzae A Ag Negative (06/29/23 6:41 AM) Normal Negative [facility] Sero Influenzae B Ag Negative 1 (06/29/23 6:41 AM) Normal Negative [facility] Sero Comment on above: Interpretive Data: T [...] NEG Ctl Pass (06/29/23 6:41 AM) Normal [facility] Sero Rapid COV Int POS Ctl Pass (06/29/23 6:41 AM) Normal [facility] Sero SARS-CoV+SARS-CoV-2 (COVID-19) Ag IA.rapid Ql (Resp) Not Detected 6 (06/29/23 6:41 AM) Normal Not Detected [facility] Sero Comment on above: Interpretive Data: T he AdviceIQ Veritor System for Rapid Detection of SARS-CoV-2 [...] Coag (PPP) [Time] 34.2 second(s) Normal 25.1-36.5 [facility] Comment on above: Result Comment: Para meter [...] the same coagulation reagent and instrumentation as [facility] [place] Currently there are no coagulation studies available worldwide for children to 14 days, and no normal ranges. Heparin therapeutic range (represented by Anti-Factor Xa activity of 0.2 - 0.4 U/mL) corresponds to PTT of 56.6 - 109.0 sec. Performed By: #### 1 [id number], 9881623, 36131228, 72947043, 6171670 ####[facility] [address] [place] [address] INR Coag (PPP) [Relative time] 1.11 {INR} Invalid Interpretation Code [facility] Comment on above: Result Comment: INR results are specifically intended to assess patients stabilized on long-term Anticoagulation therapy suggested INR?s ?Less Intensive Anticoagulation? 2.0 ? 3.0Conventional Range 3.0 ? 4.5 Performed By: #### 1 4643391, 9352856, 62403266, 96637597, 9539625 ####[facility] [address] [place] [address] PT Coag (PPP) [Time] 12.5 second(s) Normal 9.4-12.5 [facility] Comment on above: Result Comment: 15 d [...] the same coagulation reagent and instrumentation as [facility] [place] Currently there are no coagulation studies available worldwide for children to 14 days, and no normal ranges. Performed By: #### 1 3731974, 5199329, 22290427, 26710898, 0649442 ####[address] [place] [address] Rapid COVID Antigen ([facility] [place]on 06-29-2023 Rapid COV Int NEG Ctl Pass Normal [facility] Comment on above: Performed By: #### 1 3120083, [id number] ####[facility] [address] [place] [address] Rapid COV Int POS Ctl Pass Normal [facility] Comment on above: Performed By: #### 1 4467208, [id number] ####[address] [place] [address] SARS-CoV+SARS-CoV-2 (COVID-19) Ag IA.rapid Ql (Resp) Not detected Normal Not Detected [facility] Comment on above: Result Comment: The BD Veritor? System for Rapid Detection of SARS-CoV-2 is [...] or revoked sooner. Performed By: #### 1 9210858, [id number] ####[facility] [address] [place] [address] Troponin 0 Hr.on 06-29-2023 Troponin I.cardiac [Mass/Vol] ng/mL Low 10.10-27.10 [facility] Comment on above: Result Comment: The 95% CI (Confidence Interval) PPV (Positive Predictive Value) for myocardial infarction in females is 38 pg/mL, in males 51 pg/mL. The results should be used in conjunction with clinical conditions of myocardial infarction.(Access High Sensitivity Troponin I Instructions For Use, Tegan Essie, November 2017) Performed By: #### 1 4567174, 6785171, 62352967, 22507842, 1189459 ####[facility] [address] [place] [address] XR Chest Single Viewon 06-28 XR Chest Single View Normal [facility] eGFRon 06-29-2023 eGFR 89 mL/min/1.73 m2 Normal >=59 [facility] Comment on above: Order Comment: Order added by Discern Expert. Performed By: #### 1 1996629, 7857379, 73569983, 90515679, 4845907 ####[facility] [address] [place] [address] Nonvisit Note - PTon 024 Nonvisit Note - PT Pt. did not show for PT appointment on 06/18/23. Red slip submitted per attendance policy. Normal [facility] Nonvisit Note - PTon 024 Nonvisit Note - PT Pt did not show up for her outpatient PT appt this date; attempted to call pt to remind her of her next appt and the department Attendance Policy re: no shows, but her voicemail box was full and was unable to leave a message. Normal [facility] ED Note-Physicianon 06-16-19 ED Note-Physician [facility] Comment on above: Result Comment: Elec tronically Signed By: Daxa Donis PA-C\.br\Date and Time Signed: 06/14/23 09:16 EST\.br\Electronically Co-Signed By: Justo Arias DO\.br\Date and Time Co-Signed: 06/16/23 07:06 EST Consent for Treatmenton 05-29 Consent for Treatment [id number]#1 .00TIFF [facility] Discharge Instructionson Discharge Instructions [id number]#1 .00TIFF Normal [facility] ED Clinical Summaryon 2023 ED Clinical Summary Normal [facility] ED Patient Education Noteon 06-14-2023 ED Patient Education Note Normal [facility] ED Patient Summaryon 024 ED Patient Summary Normal [facility] Nonvisit Note - PTon 024 Nonvisit Note - PT Patient has strep throat. Normal [facility] Nonvisit Note - PTon 024 Nonvisit Note - PT Patient called the front office attendant cancelling today's PT session, no reason given. Normal [facility] B hCG Qualon 05-31-2023 Beta HCG ( test) Ql Negative Normal [facility] Comment on above: Performed By: #### 1 0676566, 25811415, 1107560, 9604597, 3679415, 1343242 ####[facility] [address] [place] [address] BMPon 05-31-2023 Anion gap [Moles/Vol] 13 mmol/L Normal 6-16 [facility] Comment on above: Performed By: #### 1 8424796, 85232372, 7046496, 5078587, 7564473, 2769169 ####[facility] [address] [place] [address] BUN/Creat Ratio 12 No Units Normal 10-20 [facility] Comment on above: Performed By: #### 1 3768567, 61761959, 2636107, 8862312, 0089724, 1115358 ####[facility] [address] [place] [address] Calcium [Mass/Vol] 9.2 mg/dL Normal 8.9-11.1 [facility] Comment on above: Performed By: #### 1 7846166, 32116811, 7538567, 3058228, 8707917, 7492171 ####[facility] [address] [place] [address] Chloride [Moles/Vol] 103 mmol/L Normal 101-111 [facility] Comment on above: Performed By: #### 1 4563956, 94349416, 4682384, 7203969, 4809100, 6274448 ####[facility] [address] [place] [address] CO2 [Moles/Vol] 26 mmol/L Normal 21-31 [facility] Comment on above: Performed By: #### 1 5345512, 26682606, 8406430, 2534307, 4582916, 3630173 ####[facility] [address] [place] [address] Creatinine [Mass/Vol] 0.8 mg/dL Normal 0.5-1.3 [facility] Comment on above: Performed By: #### 1 6362001, 37242602, 4713226, 0552729, 1090675, 5744690 ####[facility] [address] [place] [address] Glucose [Mass/Vol] 104 mg/dL Normal 55-199 [facility] Comment on above: Performed By: #### 1 8907425, 57215982, 7469183, 9312934, 8991309, 3822760 ####[facility] [address] [place] [address] Potassium [Moles/Vol] 3.8 mmol/L Normal 3.5-5.3 [facility] Comment on above: Performed By: #### 1 3298685, 78783355, 2942221, 8769765, 7152293, 0703496 ####[facility] [address] [place] [address] Sodium [Moles/Vol] 138 mmol/L Normal 135-145 [facility] Comment on above: Performed By: #### 1 2821302, 63884849, 0863820, 3510143, 9268528, 6852176 ####[facility] [address] [place] [address] Urea nitrogen [Mass/Vol] 10 mg/dL Normal 5-21 [facility] Comment on above: Performed By: #### 1 9578149, 40374799, 7572695, 3624672, 5364171, 8524585 ####[address] [address] CBC w/ Auto Diffon 4 Basophil Absolute 0.0 E9/L Normal 0.0-0.2 [facility] Comment on above: Performed By: #### 1 8663514, 14128076, 5804394, 2510537, 8129163, 0452405 ####[address] [address] Basophils/100 WBC (Bld) 0.5 % Normal 0.0-2.0 [facility] Comment on above: Performed By: #### 1 8437220, 58568794, 2981969, 4604747, 5571833, 7690882 ####[address] [address] Eos Absolute 0.1 E9/L Normal 0.0-0.5 [facility] Comment on above: Performed By: #### 1 7231067, 60262501, 6838252, 5458705, 4041042, 4278744 ####[address] [address] Eosinophils/100 WBC (Bld) 0.7 % Normal 0.0-8.0 [facility] Comment on above: Performed By: #### 1 2249170, 60139690, 9259709, 8193756, 1673839, 6073920 ####[address] [address] Erythrocyte distribution width (RBC) [Ratio] 13.2 % Normal 10.9-14.2 [facility] Comment on above: Performed By: #### 1 2203652, 13527266, 8982230, 8542957, 5602901, 2606253 ####[address] [address] Hematocrit (Bld) [Volume fraction] 42.0 % Normal 34.0-46.0 [facility] Comment on above: Performed By: #### 1 7275920, 11304851, 1166838, 2705903, 1184840, 5599621 ####[address] [address] Hemoglobin (Bld) [Mass/Vol] 13.8 g/dL Normal 12.0-16.0 [facility] Comment on above: Performed By: #### 1 5599913, 84781569, 7928653, 2446526, 4534845, 4489939 ####[address] [address] Lymph Absolute 1.7 E9/L Normal 1.0-4.0 [facility] Comment on above: Performed By: #### 1 4576516, 55329597, 7562357, 6863563, 9046404, 9970885 ####[address] [address] Lymphocytes/100 WBC (Bld) 16.6 % Normal 14.0-50.0 [facility] Comment on above: Performed By: #### 1 0877900, 42500360, 3011459, 3787139, 1796841, 9257318 ####[address] [address] MCH (RBC) [Entitic mass] 30.2 pg Normal 27.0-34.0 [facility] Comment on above: Performed By: #### 1 5566866, 11659761, 7588644, 5860826, 5959715, 1498382 ####[address] [address] MCHC (RBC) [Mass/Vol] 33.2 g/dL Normal 31.4-36.0 [facility] Comment on above: Performed By: #### 1 6668924, 73818855, 2758928, 4776076, 3012576, 8884285 ####[address] [address] MCV (RBC) [Entitic vol] 91.1 fL Normal 80.0-100.0 F [facility] Comment on above: Performed By: #### 1 5541697, 15944698, 1697838, 8942647, 3198708, 7185671 ####[address] [place] [address] Wood Absolute 0.4 E9/L Normal 0.2-1.0 [facility] Comment on above: Performed By: #### 1 9268825, 92160610, 2114045, 9526903, 5904390, 5013434 ####[address] [address] Monocytes/100 WBC (Bld) 3.5 % Low 4.0-14.0 F [facility] Comment on above: Performed By: #### 1 1323144, 36363425, 1789927, 7672148, 4388301, 6523042 ####[address] [address] Neutro Absolute 8.2 E9/L High 2.0-7.5 [facility] Comment on above: Performed By: #### 1 7200893, 64236406, 4641463, 1911745, 5283697, 9066329 ####[address] [address] Neutro Auto 78.7 % High 36.0-75.0 [facility] Comment on above: Performed By: #### 1 1648570, 99562967, 2771968, 5128262, 7019701, 0799494 ####[address] [address] Platelet 423.0 E9/L Normal 150.0-500.0 [facility] Comment on above: Performed By: #### 1 6225492, 06236265, 1319122, 0342036, 2145537, 3690553 ####[address] [address] Platelet mean volume (Bld) [Entitic vol] 6.9 fL Normal 6.4-10.8 [facility] Comment on above: Performed By: #### 1 3550890, 28940900, 0029366, 5428141, 1694858, 7733636 ####[facility] [address] [place] [address] RBC 4.6 E12/L Normal 4.3-5.9 [facility] Comment on above: Performed By: #### 1 3772055, 37306402, 6853016, 9109359, 7405413, 2712436 ####[facility] [address] [place] [address] WBC 10.4 E9/L Normal 4.0-11.0 [facility] Comment on above: Performed By: #### 1 6503635, 10240088, 3693605, 2264468, 3460082, 7267419 ####[facility] [address] [place] [address] CHEMISTRYOrdered By: SYSTEM SYSTEM on 05-31-2023 Albumin [...] ton 05-31-2023 CT Abdomen/Pelvis w/ Contrast Normal [facility] Consent for Treatmenton Consent for Treatment [id number]#1 .00TIFF [facility] Discharge Instructionson Discharge Instructions [id number] [id number]# 1.00TIFF Normal [facility] ED Clinical Summaryon 2023 ED Clinical Summary Normal [facility] ED Note-Nursingon 05-31-2023 ED Note-Nursing Patient provided wit h po fluids. Normal [facility] ED Note-Nursing Patient states no change in pain at this time, post pain medication. Normal [facility] ED Note-Physicianon 05-31-19 ED Note-Physician Normal [facility] Comment on above: Result Comment: Elec tronically Signed By: Sy Pickard PA-C\.br\Date and Time Signed: 05/31/23 11:06 EST\.br\Electronically Co-Signed By: Mary Jane Palm M.D.\Date and Time Co-Signed: 05/31/23 17:55 EST ED Patient Education Noteon 05-31-2023 ED Patient Education Note Normal [facility] ED Patient Summaryon 024 ED Patient Summary Normal [facility] HEMATOLOGYOrdered By: SYSTEM SYSTEM on 05-31-2023 Basophil [...] Normal 80.0 - 100.0 fL Remisol Heme Wood Absolute 0.4 E9/L Normal 0.2 - 1.0 [...] 05-31-2023 Albumin [Mass/Vol] 4.5 g/dL Normal 3.3-5.0 [facility] Comment on above: Performed By: #### 1 4133561, 09210589, 3790745, 0599999, 2593094, 3050653 ####[facility] [address] [place] [address] Albumin/Globulin [Mass ratio] 1.5 {ratio} Normal 1.1-2.2 [facility] Comment on above: Performed By: #### 1 1626644, 21901601, 3241527, 9077412, 7864363, 9610623 ####[facility] [address] [place] [address] Alk Phos 112 Int._Unit/L High 21-98 [facility] Comment on above: Performed By: #### 1 6936475, 34644273, 2436956, 5378794, 2122997, 1345605 ####[facility] [address] [place] [address] ALT 13 Int._Unit/L Normal 6-46 [facility] Comment on above: Performed By: #### 1 8760682, 31984725, 7501112, 0168713, 9580067, 9479895 ####[facility] [address] [place] [address] AST 15 Int._Unit/L Normal 5-43 [facility] Comment on above: Performed By: #### 1 3367979, 67269904, 7000266, 4716549, 6908815, 5312263 ####[facility] [address] [place] [address] Bili Direct 0.2 mg/dL Normal 0.0-0.4 [facility] Comment on above: Performed By: #### 1 3204781, 48266911, 7446999, 3494513, 4577715, 8433702 ####[facility] [address] [place] [address] Bili Indirect 0.9 mg/dL Normal 0.1-0.9 [facility] Comment on above: Performed By: #### 1 0269143, 61330941, 6709167, 0118622, 7389447, 3072604 ####[facility] [address] [place] [address] Bili Total 1.1 mg/dL Normal 0.0-1.1 [facility] Comment on above: Performed By: #### 1 0389822, 95084831, 8390076, 4263839, 4983024, 1738416 ####[address] [address] Globulin (S) [Mass/Vol] 3.0 g/dL Normal 1.4-4.0 F [facility] Comment on above: Performed By: #### 1 0574578, 81448249, 1780228, 6659107, 0821655, 0731774 ####[facility] [address] [place] [address] Protein [Mass/Vol] 7.5 g/dL Normal 6.0-7.8 [facility] Comment on above: Performed By: #### 1 7383299, 50508157, 6811072, 9919920, 8187224, 9082596 ####[facility] [address] [place] [address] Lipase Levelon 05-31-2023 Lipase Lvl 18 unit/L Normal 13-58 [facility] Comment on above: Performed By: #### 1 4437615, 37876545, 0346662, 4128940, 4106816, 0623064 ####[facility] [address] [place] [address] Prescriptions/Work Noteson 0 05-31-2023 Prescriptions/Work Notes [id number]# 1.00TIFF Normal [facility] SEROLOGYOrdered By: Joselin olmos on 05-31-2023 Beta HCG ( test) Ql Negative (05/31/23 8:38 AM) Normal [facility] [place] Man Sero UA With Cult Reflexon 2023 Bacteria LM Ql (Urine sed) TRACE Normal Trace [facility] Comment on above: Performed By: #### 1 5294843 ####[facility] [address] [facility] [place] [address] Bilirubin Ql (U) Negative Normal Negative [facility] Comment on above: Performed By: #### 1 3103011 ####[facility] [address] [place] [address], [place] [address] Clarity (U) CLEAR Normal Clear [facility] Comment on above: Performed By: #### 1 0140214 ####[facility] [address] [place] [address] Color (U) STRAW Invalid Interpretation Code [facility] Comment on above: Performed By: #### 1 9743222 ####[facility] [address] [facility] [place] [address] Epithelial cells.squamous LM.HPF (Urine sed) [#/Area] 0-2 Normal 0-2 [facility] Comment on above: Performed By: #### 1 9400130 ####[facility] [address] [place] [address] Glucose Test strip (U) [Mass/Vol] Negative Normal Negative [facility] Comment on above: Performed By: #### 1 4766749 ####[facility] [address] [place] [address] Hemoglobin Ql (U) Negative Normal Negative [facility] Comment on above: Performed By: #### 1 1698058 ####[facility] [address] [place] [address] Ketones (U) [Mass/Vol] Negative Normal Negative [facility] Comment on above: Performed By: #### 1 3817722 ####[address] [address] [place]reeze.plasma/[place]reeze. RBC (Bld) [Mass ratio] 0-3 Normal 0-3 [facility] Comment on above: Performed By: #### 1 2171390 ####[address] [address] Nitrite Ql (U) Negative Normal Negative [facility] Comment on above: Performed By: #### 1 6266832 ####[address] [address] pH (U) 6.5 [pH] Invalid Interpretation Code 5.0-9.0 [facility] Comment on above: Performed By: #### 1 0124288 ####[address] [address] Protein (U) [Mass/Vol] Negative Normal Negative [facility] Comment on above: Performed By: #### 1 2398256 ####[address] [address] Specific gravity (U) [Rel density] <=1.005 Invalid Interpretation Code 1.005-1.030 [facility] Comment on above: Performed By: #### 1 4475942 ####[address] [address] Type of Urine collection method Clean Catch Normal [facility] Comment on above: Performed By: #### 1 7634699 ####[address] [address] Urobilinogen Qn (U) 0.2 {Jane'U}/dL Normal 0.0-1.0 [facility] Comment on above: Performed By: #### 1 2230984 ####[address] [address] WBC Auto Ql (U) Negative Normal Negative [facility] Comment on above: Performed By: #### 1 2679592 ####[address] [address] WBC LM.HPF (Urine sed) [#/Area] 0-5 Normal 0-5 [facility] Comment on above: Performed By: #### 1 1958021 ####[facility] [address] [place] [address] URINALYSISOrdered By: Joselin ramirez on 05-31-2023 Bacteria [...] AM) Normal Negative [facility] UA Auto SS [place].plasma/[place]. RBC (Bld) [Mass ratio] 0-3 /HPF Normal [...] - 1.030 [facility] UA Auto SS UA Spec Desc Clean Catch (05/31/23 8:56 AM) Normal [facility] UA Auto SS Urobilinogen Qn (U) 0.2190948 {Jane'U}/dL Normal 0.0 - 1.0 EU/dL [facility] UA Auto SS WBC Auto Ql (U) Negative (05/31/23 8:56 AM) Normal Negative [facility] [place] UA Auto SS WBC LM.HPF (Urine sed) [#/Area] 0-5 /HPF Normal 0-5/HPF [facility] [place] UA Auto SS eGFRon 05-31-2023 eGFR 102 mL/min/1.73 m2 Normal >=59 [facility] Comment on above: Order Comment: Order added by Discern Expert. Performed By: #### 1 2924255, 59404543, 2189131, 8083689, 3085459, 1799299 ####[facility] [address] [place] [address] PT - Orderson 05-30-2023 PT - Orders [id number] 0 [id number]# 1.00TIFF Normal [facility] Nonvisit Note - PTon 024 Nonvisit Note - PT Patient is not feeling well and requested to cancel. Normal [facility] Consent for Treatmenton 04-30 Consent for Treatment [id number] 401 [id number]#1 .00TIFF [facility] Consent for Treatment [id number] 401 [id number]#1 .00TIFF Normal [facility] Discharge Instructionson Discharge Instructions [id number]#1 .00TIFF [facility] Discharge Instructions [id number] [id number]#1 .00TIFF Normal [facility] ED Clinical Summaryon 2023 ED Clinical Summary Normal [facility] ED Note-Physicianon 05-28-19 ED Note-Physician Normal [facility] Comment on above: Result Comment: Elec tronically Signed By: Ulisses Mckinney PA-C.tesha\Date and Time Signed: 05/28/23 10:54 EST\.br\Electronically Co-Signed By: Darren Lomxa DObr\Date and Time Co-Signed: 05/28/23 19:37 EST ED Patient Education Noteon 05-28-2023 ED Patient Education Note Normal [facility] ED Patient Summaryon ED Patient Summary Normal [facility] PT - Assessmentson PT - Assessments [id number]#1 .00TIFF Normal [facility] PT - Consentson 05-28-2023 PT - Consents [id number]#1 .00TIFF [facility] [place] [facility] - [facility] Exercise Programon 05-28-2023 PT - Home Exercise Program [id number]#1 .00TIFF [facility] PT - Orderson 05-28-2023 PT - Orders [id number]# 1.00TIFF Normal [facility] Consent for Treatmenton 04-29 Consent for Treatment [id number]#1 .00TIFF [facility] Discharge Instructionson Discharge Instructions [id number]# 1.00TIFF [facility] ED Clinical Summaryon 2023 ED Clinical Summary Normal [facility] ED Note-Physicianon 05-22-19 ED Note-Physician Normal [facility] Comment on above: Result Comment: Elec tronically Signed By: Arpita Layton, Mary Jane H\.br\Date and Time Signed: 05/22/23 07:35 EST ED Patient Education Noteon 05-22-2023 ED Patient Education Note Normal [facility] ED Patient Summaryon 024 ED Patient Summary Normal [facility] XR Hand 3+ Views Righton XR Hand 3+ Views Right Normal [facility] Consultation Noteon 05-16-19 Consultation Note [id number]#1 .00TIFF Normal [facility] Ambulatory Visit Summaryon 0 05-11-2023 Ambulatory Visit Summary Normal [facility] Family Medicine Office/Clini c Noteon 05-11-2023 Family Medicine Office/Clinic Note Normal [facility] Comment on above: Result Comment: Elec tronically Signed By: Geovany Ramirez DO\.br\Date and Time Signed: 05/11/23 12:50 EST Nonvisit Note - PTon 024 Nonvisit Note - PT Chart reviewed with eval prepped for scheduled eval. KK [facility] XR Spine Lumbosacral Minimum 4 Viewson 05-07-2023 XR Spine Lumbosacral Minimum 4 Views [facility] Consent for Treatmenton Consent for Treatment [id number]#1 .00TIFF [facility] Physician Orderon 05-06-2023 Physician Order [id number]# 1.00TIFF [facility] Physician Order [id number]# 1.00TIFF [facility] Ambulatory Visit Summaryon 0 05-03-2023 Ambulatory Visit Summary Normal [facility] [place] [facility] Medicine Office/Clini c Noteon 05-03-2023 Family Medicine Office/Clinic Note Normal [facility] Comment on above: Result Comment: Elec tronically Signed By: Isaac Stephen PA-C\.br\Date and Time Signed: 05/03/23 13:04 EST ED Note-Physicianon 04-26-20 23 ED Note-Physician Normal [facility] Comment on above: Result Comment: Elec tronically Signed By: Guille Will MD\.br\Date and Time Signed: 04/26/23 00:41 EST Consent for Treatmenton 03-28 Consent for Treatment [id number]#1 .00TIFF [facility] Discharge Instructionson Discharge Instructions [id number]#1 .00TIFF Normal [facility] ED Clinical Summaryon 2022 ED Clinical Summary Normal Chavo vasquez [facility] ED Note-Physicianon 04-15-20 ED Note-Physician Normal [facility] Comment on above: Result Comment: Elec tronically Signed By: Savanna Rivero PA-C\.br\Date and Time Signed: 04/15/23 12:21 EST\.br\Electronically Co-Signed By: Justo Arias DO\.br\Date and Time Co-Signed: 04/15/23 18:36 EST ED Patient Education Noteon 04-15-2023 ED Patient Education Note Normal [facility] ED Patient Summaryon 023 ED Patient Summary Normal [facility] Auto Diffon 04-11-2023 Basophils/100 WBC (Bld) 0.3 % Normal 0.0-2.0 F [facility] Comment on above: Order Comment: Order Added by Discern Expert. Performed By: #### 2 581241, 2107185, 6062273, 5363186, 20987139 ####[facility] [address] [place] [address] Basophils/Leukocytes Auto (Bld) [Pure # fraction] 0.0 E9/L Normal 0.0-0.2 [facility] Comment on above: Order Comment: Order Added by Discern Expert. Performed By: #### 2 667172, 3266769, 1559375, 1171066, 57101120 ####[facility] [address] [place] [address] Eosinophils/100 WBC (Bld) 0.1 % Normal 0.0-8.0 [facility] Comment on above: Order Comment: Order Added by Discern Expert. Performed By: #### 2 579097, 8770688, 1852966, 3874951, 48711940 ####[facility] [address] [place] [address] Eosinophils/Leukocytes Auto (Bld) [Pure # fraction] 0.0 E9/L Normal 0.0-0.5 [facility] Comment on above: Order Comment: Order Added by Discern Expert. Performed By: #### 2 430521, 2403124, 5064098, 2112051, 62189175 ####[address] [place] [address] Lymphocytes/100 WBC (Bld) 13.0 % Low 14.0-50.0 [facility] Comment on above: Order Comment: Order Added by Discern Expert. Performed By: #### 2 576778, 7938077, 3558268, 5784547, 45370315 ####[facility] [address] [place] [address] Lymphocytes/Leukocytes Auto (Bld) [Pure # fraction] 1.6 E9/L Normal 1.0-4.0 [facility] Comment on above: Order Comment: Order Added by Andria Expert. Performed By: #### 2 274857, 0956144, 9248259, 8131617, 34719674 ####[address] [address] Monocytes/100 WBC (Bld) 2.9 % Low 4.0-14.0 [facility] Comment on above: Order Comment: Order Added by Andria Expert. Performed By: #### 2 680533, 6798146, 7455050, 0171350, 55334480 ####[address] [address] Monocytes/Leukocytes Auto (Bld) [Pure # fraction] 0.4 E9/L Normal 0.2-1.0 [facility] Comment on above: Order Comment: Order Added by Andria Expert. Performed By: #### 2 951622, 2993206, 1892273, 4514582, 71727195 ####[address] [address] Neutrophils/100 WBC (Bld) 83.7 % High 36.0-75.0 [facility] Comment on above: Order Comment: Order Added by Andria Expert. Performed By: #### 2 959500, 5910176, 0092982, 4703113, 66359245 ####[facility] [address] [place] [address] Neutrophils/Leukocytes Auto (Bld) [Pure # fraction] 10.0 E9/L High 2.0-7.5 [facility] Comment on above: Order Comment: Order Added by Discern Expert. Performed By: #### 2 733694, 6262813, 2495104, 9720635, 18174628 ####[facility] [address] [place] [address] BMPon 04-11-2023 Anion gap [Moles/Vol] 13 mmol/L Normal 6-16 [facility] Comment on above: Performed By: #### 2 360794, 2807538, 2137355, 2328121, 27856873 ####[facility] [address] [place] [address] BUN/Creat Ratio 15 No Units Normal 10-20 [facility] Comment on above: Performed By: #### 2 473174, 4241102, 4377901, 7335674, 84392752 ####[facility] [address] [place] [address] Calcium [Mass/Vol] 9.8 mg/dL Normal 8.9-11.1 [facility] Comment on above: Performed By: #### 2 224966, 0760728, 8804543, 9149713, 37004862 ####[facility] [address] [place] [address] Chloride [Moles/Vol] 103 mmol/L Normal 101-111 [facility] Comment on above: Performed By: #### 2 287168, 2226819, 4436570, 9355089, 70898343 ####[facility] [address] [place] [address] CO2 [Moles/Vol] 30 mmol/L Normal 21-31 [facility] Comment on above: Performed By: #### 2 040278, 3426210, 3526194, 1641189, 15861932 ####[facility] [address] [place] [address] Creatinine [Mass/Vol] 0.8 mg/dL Normal 0.5-1.3 [facility] Comment on above: Performed By: #### 2 904788, 7770357, 2716097, 2871493, 99977275 ####[facility] [address] [place] [address] Glucose [Mass/Vol] 110 mg/dL Normal 55-199 [facility] Comment on above: Performed By: #### 2 734038, 3707920, 6876582, 7391098, 90287217 ####[facility] [address] [place] [address] Potassium [Moles/Vol] 3.7 mmol/L Normal 3.5-5.3 [facility] Comment on above: Performed By: #### 2 127236, 1443073, 3853038, 9594157, 53886153 ####[facility] [address] [place] [address] Sodium [Moles/Vol] 142 mmol/L Normal 135-145 [facility] Comment on above: Performed By: #### 2 540374, 0094193, 2252298, 2402746, 56696669 ####[facility] [address] [place] [address] Urea nitrogen [Mass/Vol] 12 mg/dL Normal 5-21 [facility] Comment on above: Performed By: #### 2 960718, 4940877, 7088263, 7933233, 55505636 ####[facility] [address] [place] [address] CBC w/ Auto Diffon 3 Erythrocyte distribution width (RBC) [Ratio] 13.1 % Normal 10.9-14.2 [facility] Comment on above: Performed By: #### 2 982491, 3492262, 5875216, 0714296, 30130723 ####[facility] [address] [place] [address] Hematocrit (Bld) [Volume fraction] 43.4 % Normal 34.0-46.0 [facility] Comment on above: Performed By: #### 2 251115, 6237941, 0881168, 0989906, 00426291 ####[facility] [address] [place] [address] Hemoglobin (Bld) [Mass/Vol] 14.1 g/dL Normal 12.0-16.0 [facility] Comment on above: Performed By: #### 2 468057, 3217167, 4474829, 5623610, 44678909 ####[address] [address] MCH (RBC) [Entitic mass] 29.2 pg Normal 27.0-34.0 [facility] Comment on above: Performed By: #### 2 510113, 7358312, 8270212, 9795300, 86482111 ####[address] [address] MCHC (RBC) [Mass/Vol] 32.6 g/dL Normal 31.4-36.0 [facility] Comment on above: Performed By: #### 2 425135, 6900502, 2873668, 3379819, 70570027 ####[address] [address] MCV (RBC) [Entitic vol] 89.7 fL Normal 80.0-100.0 [facility] Comment on above: Performed By: #### 2 121435, 7581805, 2447860, 4050083, 69777299 ####[facility] [address] [place] [address] Platelet mean volume (Bld) [Entitic vol] 6.9 fL Normal 6.4-10.8 [facility] Comment on above: Performed By: #### 2 866546, 4113522, 9644225, 6802184, 63488104 ####[address] [address] Platelets (Bld) [#/Vol] 488.0 E9/L Normal 150.0-500.0 [facility] Comment on above: Performed By: #### 2 803016, 0507432, 9387531, 2727719, 81273393 ####[facility] [address] [place] [address] RBC (Bld) [#/Vol] 4.8 E12/L Normal 4.3-5.9 [facility] Comment on above: Performed By: #### 2 075639, 2421112, 0286641, 2416245, 39890983 ####[facility] [address] [place] [address] WBC corrected for nucl RBC Auto (Bld) [#/Vol] 11.9 E9/L High 4.0-11.0 [facility] Comment on above: Performed By: #### 2 180552, 4313120, 4987100, 5847033, 44046782 ####[facility] [address] [place] [address] CRPon 04-11-2023 CRP [Mass/Vol] mg/L Normal <=1.9 [facility] Comment on above: Performed By: #### 2 302781, 1495082, 8841624, 8696400, 18585592 ####[facility] [address] [place] [address] CT Head or Brain w/ + w/o Co ntraston 04-11-2023 CT Head or Brain w/ + w/o Contrast Normal [facility] CT Maxillofacial w/ Contrast on 04-11-2023 CT Maxillofacial w/ Contrast Normal [facility] Consent for Treatmenton 03-28 Consent for Treatment [id number]#1 .00TIFF Normal [facility] Discharge Instructionson Discharge Instructions [id number]#1 .00TIFF Normal [facility] ED Clinical Summaryon 2022 ED Clinical Summary Normal [facility] ED Patient Education Noteon 04-11-2023 ED Patient Education Note Normal [facility] ED Patient Summaryon 023 ED Patient Summary Normal [facility] eGFRon 04-11-2023 GFR/1.73 sq M.predicted among non-blacks MDRD (S/P/Bld) [Vol rate/Area] mL/min/{1.73_m2} Normal >=59 [facility] Comment on above: Order Comment: Order added by Discern Expert. Performed By: #### 2 930473, 3623266, 9678760, 2040258, 43631054 ####[facility] [address] [place] [address] ED Note-Physicianon 04-10-20 ED Note-Physician Normal [facility] Comment on above: Result Comment: Elec tronically Signed By: Ulisses Mckinney PA-C\.br\Date and Time Signed: 03/30/23 18:21 EST\.br\Electronically Co-Signed By: Guille Will MD\.br\Date and Time Co-Signed: 04/10/23 07:40 EST Consent for Treatmenton Consent for Treatment [id number]#1 .00TIFF Normal [facility] Discharge Instructionson Discharge Instructions [id number]#1 .00TIFF Normal [facility] ED Clinical Summaryon 2022 ED Clinical Summary Normal [facility] ED Patient Education Noteon 03-30-2023 ED Patient Education Note Normal [facility] ED Patient Summaryon 023 ED Patient Summary Normal [facility] Medicine Office/Clini c Noteon 03-12-2023 Family Medicine Office/Clinic Note Normal [facility] Comment on above: Result Comment: Elec tronically Signed By: Amos Castellon PA-C\.br\Date and Time Signed: 03/12/23 09:12 EST Patient Educationon 03-12-20 Patient Education Normal [facility] Ambulatory Visit Summaryon 1 05-11-2022 Ambulatory Visit Summary Normal [facility] Consenton 01-24-2023 Consent [id number]#1 .00CD:127 Normal [facility] Family Medicine Office/Clini c Noteon 01-24-2023 [facility] Medicine Office/Clinic Note Normal [facility] Comment on above: Result Comment: Elec tronically Signed By: Rojelio Saldana PA-C, V.\.br\Date and Time Signed: 01/24/23 10:02 EDT Patient Educationon 01-25-20 Patient Education Normal [facility] Consenton 01-16-2023 Consent [id number]#1. 00CD:127 Normal [facility] Ambulatory Visit Summaryon 0 01-15-2023 Ambulatory Visit Summary Normal [facility] Family Medicine Office/Clini c Noteon 01-15-2023 Family Medicine Office/Clinic Note Normal [facility] Comment on above: Result Comment: Elec tronically Signed By: Rojelio Saldana PA-C, V.\.br\Date and Time Signed: 01/15/23 14:02 EDT Patient Educationon 01-16-20 Patient Education Normal [facility] Family Medicine Office/Clini c Noteon 11-21-2022 [facility] Medicine Office/Clinic Note Normal [facility] Comment on above: Result Comment: Elec tronically Signed By: Amos Castellon PA-C.br\Date and Time Signed: 11/21/22 09:11 EDT ED Note-Physicianon 11-21-19 ED Note-Physician [facility] Comment on above: Result Comment: Elec tronically Signed By: Ulisses Mckinney PA-C.br\Date and Time Signed: 11/20/22 00:22 EDT\.br\Electronically Co-Signed By: Vivian Ochoa DO.br\Date and Time Co-Signed: 11/20/22 01:45 EDT XR Hand 3+ Views Righton XR Hand 3+ Views Right Normal [facility] XR Wrist 3+ Views Righton XR Wrist 3+ Views Right Normal F lucius [facility] Consent for Treatmenton 10-27 Consent for Treatment [id number]#1 .00CD:127 Normal [facility] Discharge Instructionson Discharge Instructions [id number]# 1.00CD:127 Normal [facility] ED Clinical Summaryon 2022 ED Clinical Summary Normal Chavo vasquez [facility] ED Patient Education Noteon 11-19-2022 ED Patient Education Note Normal [facility] ED Patient Summaryon 023 ED Patient Summary Normal [facility] C Urineon 11-13-2022 Bacteria identified Cx Nom (U) Normal [facility] Comment on above: Performed By: #### 2 058843 ####[facility] [address] [place] [address] CHEMISTRYOrdered By: SYSTEM SYSTEM on 09-14-2021 Anion gap [Moles/Vol] 14 mmol/L Normal 6 - 16 mEq/L F [facility] Remisol Calcium [Mass/Vol] 9.3 mg/dL Normal 8.9 - 11. 1 mg/dL [facility] [place]isol Chloride [Moles/Vol] 103 mmol/L Normal 101 - 1 11 mmol/L [facility] [place] Remisol CO2 [Moles/Vol] 24 mmol/L Normal 21 - 31 mmol/L [facility] [place] Remisol Creatinine [Mass/Vol] 0.7 mg/dL Normal 0.5 - 1.3 mg/dL [facility] [place] Remisol GFR/1.73 sq M.predicted among blacks MDRD (S/P/Bld) [Vol rate/Area] mL/min/1.73 m2 Normal >=59mL/min/1 .73 m2 [facility] [place] Chem S GFR/1.73 sq M.predicted among non-blacks MDRD (S/P/Bld) [Vol rate/Area] mL/min/1.73 m2 Normal >=59mL/min/1 .73 m2 [facility] [place] Chem S Glucose [Mass/Vol] 89 mg/dL Normal 55 - 199 mg/dL [facility] Remisol Magnesium [Mass/Vol] 1.9 mg/dL Normal 1.3 - 2 .4 mg/dL [facility] Remisol Potassium [Moles/Vol] 3.7 mmol/L Normal 3.5 - 5.3 mmol/L [facility] Remisol Sodium [Moles/Vol] 137 mmol/L Normal 135 - 145 mmol/L [facility] Remisol Urea nitrogen [Mass/Vol] 11 mg/dL Normal 5 - 21 mg/dL [facility] Remisol Urea nitrogen/Creatinine [Mass ratio] 16 mg/mg Normal 10 - 20 [facility] Remisol HEMATOLOGYOrdered By: SYSTEM SYSTEM on 09-14-2021 [...] [Mass/Vol] Negative (09/14/21 7:20 PM) Normal Negative [facility] UA Auto SS Hemoglobin Ql (U) Negative (09/14/21 7:20 PM) Normal Negative [facility] UA Auto SS Ketones (U) [Mass/Vol] Negative (09/14/21 7:20 PM) Normal Negative [facility] UA Auto SS [place].plasma/[place]. RBC (Bld) [Mass ratio] 0-3 /HPF Normal 0-3/HPF [facility] [place]A A uto SS Nitrite Ql (U) Negative (09/14/21 7:20 PM) Normal Negative [facility] [place] UA Auto SS pH (U) 7.5 *NA* (09/14/21 7:20 PM) Invalid Interpretation Code 5.0 - 9.0 [facility] [place] UA Auto SS Protein (U) [Mass/Vol] Negative (09/14/21 7:20 PM) Normal Negative [facility] [place] UA Auto SS Specific gravity (U) [Rel density] 1.010 *NA* (09/14/21 7:20 PM) Invalid Interpretation Code 1.005 - 1.030 [facility] [place] UA Auto SS UA Spec Desc Clean Catch (09/14/21 7:20 PM) Normal [facility] [place] UA Auto SS Urobilinogen Qn (U) 0.9424017 {Jane'U}/dL Normal 0.0 - 1.0 EU/dL [facility] [place] UA Auto SS WBC Auto Ql (U) Negative (09/14/21 7:20 PM) Normal Negative [facility] [place] UA Auto SS WBC LM.HPF (Urine sed) [#/Area] 0-5 /HPF Normal 0-5/HPF [facility] [place] UA Auto SS Reference Laboratory Testing Ordered By: Leesa Choudhury on 09-12-2021 Test Code 722628 Invalid Interpretation Code [facility] Test Name IG PAP CTNG HPV Invalid Interpretation Code [facility] Group B Strep Screen PCRon 0 07-23-2021 Group B Strep Screen PCR Group B Strep Screen PCR --> Status: F POSITIVE Expected Result: Negative CDC guidelines for prevention of Group B Strep disease recommends collection of both vaginal and rectal specimens for optimal recovery of GBS. Methodology - Real Time PCR (1jiajieid) Expected Result: Negative CDC guidelines for prevention of Group B Strep disease recommends collection of both vaginal and rectal specimens for optimal recovery of GBS. Methodology - Real Time PCR (Cepheid) 1 Organism Streptococcus agalactiae (Group B) Isolated: Susceptibility testing not routinely performed. Group B streptococcus is universally susceptible to beta-lactam antibiotics and vancomycin. If patient is beta-lactam allergic, please call [facility] Microbiology lab ([phone]) within 2 days to request susceptibility testing. If isolated from urine, Group B strep may indicate colonization or infection. 1 Organism Antibiotic Result Intrp Ampicillin(DOMINGUEZ) <= 0.25 S Inducible Clindamycin Resistant(DOMINGUEZ)Neg Neg Ceftriaxone(DOMINGUEZ) <= 0.12 S Clindamycin(DOMINGUEZ) <= 0.25 S Vancomycin(DOMINGUEZ) 0.5 S Levofloxacin(DOMINGUEZ) 0.5 S Linezolid(DOMINGUEZ) <= 2 S Tetracycline(DOMINGUEZ) >= 16 R Erythromycin(DOMINGUEZ) <= 0.12 S Penicillin-G(DOMINGUEZ) <= 0.06 S Normal [facility] Comment on above: Performed By: #### B GLU #### [facility] [address] [place], [place] Glucose,Bedsideon 07-20-2021 Glucose [Mass/Vol] 114 mg/dL [address] Comment on above: Result Comment: Test performed by glucose meter. Results may be 10%-15% lower than serum/plasma values. (CLIA ID [id number]) Performed By: #### B GLU #### [facility] [address] [place], [place] Glucose [Mass/Vol] 148 mg/dL [facility] [address] [facility] Comment on above: Result Comment: Test performed by glucose meter. Results may be 10%-15% lower than serum/plasma values. (CLIA ID [id number]) Performed By: #### B GLU #### [facility] [address] [place] [address] Glucose [Mass/Vol] 109 mg/dL High 70-100 [facility] Comment on above: Result Comment: Test performed by glucose meter. Results may be 10%-15% lower than serum/plasma values. (CLIA ID [id number]) Performed By: #### B GLU #### [facility] [address] [place] [address] Glucose [Mass/Vol] 184 mg/dL High 70-100 [facility] Comment on above: Result Comment: Test performed by glucose meter. Results may be 10%-15% lower than serum/plasma values. (CLIA ID [id number]) Performed By: #### B GLU #### [address] [place] [address] POCT Glucoseon 07-20-2021 Glucose [Mass/Vol] 114 mg/dL High 70 - 100 mg/dL [facility] Work Phone: Comment on above: Test performed by gl ucose meter. Results may be 10%-15% lower than serum/plasma values. (CLIA ID [id number]) Interpretation and review of laboratory results Abnormal [facility] Work Phone: Test Performed by [facility], [address] [place] [id number] [place] [address] - [facility] Work Phone: Glucose [Mass/Vol] 148 mg/dL High 70 - 100 mg/dL [facility] Work Phone: Comment on above: Test performed by gl ucose meter. Results may be 10%-15% lower than serum/plasma values. (CLIA ID [id number]) Interpretation and review of laboratory results Abnormal [facility] Work Phone: Test Performed by [facility], [address] [place] [phone] [place] [address] - [facility] Work Phone: Test Performed by [facility], [facility] [place] [address] [facility] Test Performed by [facility], [address] [place] [phone] [place] [address] LAB POCT GlucoseOrdered By: Beka Handley on 07-20-2021 Glucose [Mass/Vol] 109 mg/dL High 70 - 100 mg/dL [facility] Comment on above: Test performed by gl ucose meter. Results may be 10%-15% lower than serum/plasma values. (CLIA ID [id number]) Interpretation and review of laboratory results Abnormal [facility] POCT GlucoseOrdered By: Che Mary on 07-20-2021 Glucose [Mass/Vol] 184 mg/dL High 70 - 100 mg/dL [facility] Comment on above: Test performed by gl ucose meter. Results may be 10%-15% lower than serum/plasma values. (CLIA ID [id number]) Interpretation and review of laboratory results Abnormal [facility] C. Trachomatis / N. Gonorrho eae, DNA Probeon 07-19-2021 C. trachomatis DNA ESTER+probe Ql (Genital specimen) NOT Detected Chlamydia trachomatis Nucleic Acid NOT Detected by DNA Amplification using the 1jiajieid System. Culture is the only recommended test in medical-legal cases such as suspected child abuse or molestation. [facility] N. gonorrhoeae DNA ESTER+probe Ql (Unsp spec) NOT Detected Neisseria gonorrhoeae Nucleic Acid NOT Detected by DNA Amplification using the [employer]ep[employer] System. Culture is the only recommended test in medical-legal cases such as suspected child abuse or molestation. [facility] Test Performed by [facility], [address] [place] [id number] [facility] CBCon 07-19-2021 Hematocrit (Bld) [Volume fraction] 36.3 % 35.0 - 47.0 % [facility] Hemoglobin.gastrointest inal spec 1 Ql (Stl) 12.1 g/dL 11.7 - 16.0 g/dL [facility] Interpretation and review of laboratory results Abnormal [facility] MCH (RBC) [Entitic mass] 29.9 pg 26.0 - 34.0 pg [facility] MCHC (RBC) [Mass/Vol] 33.4 % 32.0 - 36.0 % [facility] MCV (RBC) [Entitic vol] 89.5 fL 79.0 - 98.0 fL [facility] Platelet distribution width (Bld) [Ratio] 14.7 % High 11.5 - 14.5 % [facility] Platelet mean volume (Bld) [Entitic vol] 8.1 fL 7.4 - 10.4 fL [facility] Platelets (Bld) [#/Vol] 381 10*3/uL 140 - 440 10*3/uL [facility] RBC (Bld) [#/Vol] 4.05 10*6/uL 3.80 - 5.2 0 10*6/uL [facility] WBC (Bld) [#/Vol] 21.9 10*3/uL High 3.6 - 10.7 10*3/uL [facility] Test Performed by [facility], [address] [place] [id number] [facility] Chlamydia and GC PCR Panelon 07-19-2021 [...] as suspected child abuse or molestation. Normal [facility] Comment on above: Performed By: #### B GLU #### [address] Comp Metabolic Panelon 07-19 Calcium [Mass/Vol] 7.6 mg/dL Low 8.4-10.4 [facility] Comment on above: Performed By: #### C MP3 #### [address] ALP [Catalytic activity/Vol] 157 U/L High 38-126 [facility] Comment on above: Performed By: #### C MP3 #### [address], [place] ALT [Catalytic activity/Vol] 13 U/L Normal 0-34 [facility] Comment on above: Result Comment: The ALT test is performed by an updated assay method. Please note that the reference intervals have been changed and are now sex specific. Performed By: #### C MP3 #### [facility] [address], [place] Anion gap [Moles/Vol] 3 mmol/L Normal 3-13 [facility] Comment on above: Performed By: #### C MP3 #### [facility] [address] [place], [place] AST [Catalytic activity/Vol] 27 U/L Normal 15-46 [facility] Comment on above: Performed By: #### C MP3 #### [place] [address] [address] [place], [place] Bilirubin [Mass/Vol] 0.4 mg/dL Normal 0.2-1.3 [facility] Comment on above: Performed By: #### C MP3 #### [place] [address] [address] [place], [place] CO2 [Moles/Vol] 24 mmol/L Normal 22-30 [facility] Comment on above: Performed By: #### C MP3 #### [place] [address] [address] [place], [place] Creatinine [Mass/Vol] 0.44 mg/dL Low 0.52-1.25 [facility] Comment on above: Performed By: #### C MP3 #### [place] [address] [address] [place], [place] eGFR OTHER > 90.0 Normal >60 [facility] Comment on above: Result Comment: KDIG O [...] secretion. Performed By: #### C MP3 #### [facility] [address] [place], [place] GFR/1.73 sq M.predicted among blacks MDRD (S/P/Bld) [Vol rate/Area] mL/min/{1.73_m2} Normal >60 [facility] Comment on above: Performed By: #### C MP3 #### [place] [address] [address] [place], [place] Glucose [Mass/Vol] 103 mg/dL High 70-100 [facility] Comment on above: Performed By: #### C MP3 #### [place] [address] [address] [place], [place] Protein [Mass/Vol] 6.3 g/dL Normal 6.3-8.2 [facility] Comment on above: Performed By: #### C MP3 #### [place] [address] [address] [place], [place] Urea nitrogen [Mass/Vol] 3 mg/dL Low 9-20 [facility] Comment on above: Performed By: #### C MP3 #### [place] [address] [address] [place], [place] Potassium [Moles/Vol] 3.7 mmol/L Normal 3.5-5.1 [facility] Comment on above: Performed By: #### C MP3 #### [place] [address] [place] [address] Albumin [Mass/Vol] 3.3 g/dL Low 3.5-5.0 [facility] Comment on above: Performed By: #### C MP3 #### [place] [address] [place] [address] Chloride [Moles/Vol] 105 mmol/L Normal 98-107 [facility] Comment on above: Performed By: #### C MP3 #### [facility] [address], [place] Sodium [Moles/Vol] 133 mmol/L Low 135-145 [facility] Comment on above: Performed By: #### C MP3 #### [facility] [address] [place], [place] Complete Urinalysison 2021 Appearance (U) Clear Normal Clear [facility] Comment on above: Result Comment: . Performed By: #### C UA2 #### [place] [address] [address] [place], [place] Bilirubin,Urine Negative Normal Negative [facility] Comment on above: Result Comment: . Performed By: #### C UA2 #### [place] [address] [address] [place], [place] Color (U) Colorless Normal [facility] Comment on above: Result Comment: . Performed By: #### C UA2 #### [place] [address] [address] [place], [place] Glucose Ql (U) Normal Normal Normal (<70) [facility] Comment on above: Result Comment: . Performed By: #### C UA2 #### [facility] [address], [place] Ketone,Urine 10 mg/dL Abnormal Negative [facility] Comment on above: Result Comment: . Performed By: #### C UA2 #### [place] [address] [address] [place], [place] Leukocytes,Urine Negative Normal Negative [facility] Comment on above: Result Comment: . Performed By: #### C UA2 #### [place] [address] [address] [place], [place] Nitrites,Urine Negative Normal Negative [facility] Comment on above: Result Comment: . Performed By: #### C UA2 #### [place] [address] [address] [place], [place] Occult Blood,Urine Negative Normal Negative [facility] Comment on above: Result Comment: . Performed By: #### C UA2 #### [facility] [address] [place], [place] pH,Urine 5.0 Normal 5.0-8.0 [facility] Comment on above: Result Comment: . Performed By: #### C UA2 #### [facility] [address] [place], [place] Specific Stephen,Urine < 1.005 Abnormal 1.005 - 1.030 [facility] Comment on above: Result Comment: . Performed By: #### C UA2 #### [facility] [address], [place] Total Protein,Urine Negative Normal Negative [facility] Comment on above: Result Comment: . Performed By: #### C UA2 #### [facility] [address], [place] Urobilinogen,Urine Normal Normal Normal (0-1) [facility] Comment on above: Result Comment: . Performed By: #### C UA2 #### [facility] [address], [place] Comprehensive Metabolic Pane chata 07-19-2021 Albumin [Mass/Vol] 3.3 g/dL Low 3.5 - 5.0 g/dL [facility] ALP (Bld) [Catalytic activity/Vol] 157 U/L High 38 - 126 U/L [facility] ALT [Catalytic activity/Vol] 13 U/L 0 - 34 U/L [facility] Comment on above: The ALT test is [...] - 1.25 mg/dL [facility] EGFR IF NonAfrican Namibian >90.0 >60 mL/min [facility] Comment on above: KDIGO guidelines pro vide [...] 103 mg/dL High 70 - 100 mg/dL [facility] Interpretation and review of laboratory results Abnormal [facility] Potassium [Moles/Vol] 3.7 mmol/L 3.5 - 5.1 mmol/L [facility] Sodium [Moles/Vol] 133 mmol/L Low 135 - 145 mmol/L [facility] Urea nitrogen (BldV) [Mass/Vol] 3 mg/dL Low 9 - 20 mg/dL [facility] Test Performed by [facility] [employer] [facility], [address] [place] [address] LAB [facility] Glucose,Bedsideon 07-19-2021 Glucose [Mass/Vol] 112 mg/dL High 70-100 [facility] Comment on above: Result Comment: Test performed by glucose meter. Results may be 10%-15% lower than serum/plasma values. (CLIA ID [id number]) Performed By: #### B GLU #### [address] Hemogramon 07-19-2021 Erythrocyte distribution width (RBC) [Ratio] 14.7 % High 11.5-14.5 [facility] Comment on above: Performed By: #### H EMOG #### [facility] [address], [place] Hematocrit (Bld) [Volume fraction] 36.3 % Normal 35.0-47.0 [facility] Comment on above: Performed By: #### H EMOG #### [place] [address] [address] [place], [place] Hemoglobin (Bld) [Mass/Vol] 12.1 g/dL Normal 11.7-16.0 [facility] Comment on above: Performed By: #### H EMOG #### [place] [address] [address] [place], [place] MCH (RBC) [Entitic mass] 29.9 pg Normal 26.0-34.0 [facility] Comment on above: Performed By: #### H EMOG #### [place] [address] [address] [place], [place] MCHC 33.4 % Normal 32.0-36.0 [facility] Comment on above: Performed By: #### H EMOG #### [place] [address] [address] [place], [place] MCV (RBC) [Entitic vol] 89.5 fL Normal 79.0-98.0 [facility] Comment on above: Performed By: #### H EMOG #### [place] [address] [address] [place], [place] Platelet mean volume (Bld) [Entitic vol] 8.1 fL Normal 7.4-10.4 [facility] Comment on above: Performed By: #### H EMOG #### [place] [address] [address] [place], [place] Platelets (Bld) [#/Vol] 381 10*3/uL Normal 140-440 [facility] Comment on above: Performed By: #### H EMOG #### [place] [address] [address] [place], [place] RBC (Bld) [#/Vol] 4.05 10*6/uL Normal 3.80-5.20 [facility] Comment on above: Performed By: #### H EMOG #### [facility] [address] [place], [place] WBC (Bld) [#/Vol] 21.9 10*3/uL High 3.6-10.7 [facility] Comment on above: Performed By: #### H EMOG #### [facility] [address] [place], [place] MFM US Biophy w/o non- stresson 07-19-2021 MFM US Biophy w/o non-stress Patient Name: ALEJANDRA REAL Maternal Medicine ACCESSION EXAM DATE/TIME PROCEDURE ORDERING PROVIDER [id number] 07/19/2021 09:43 EDT MFM US Biophy w/o [id number] JERRELL WHITNEY non-stress Reason For Exam ([facility] US Biophy w/o non-stress) PTL Report ------- OBSTETRICS REPORT (Signed Final 07/19/2021 10:21 am) ------- PATIENT INFO: ID #: [id number] : [birth year] (25 yrs) Name: ALEJANDRA REAL Visit Date: 07/19/2021 09:19 am ------- PERFORMED BY: Attending: Misti Ziegler MD Performed By: Shamika Mckee RDMS Referred By: JERRELL VELEZ Visit Type: Inpatient - Hospital ------- SERVICE(S) PROVIDED: US >= 14 weeks 92525 BPP w/out NST 45015 ------- INDICATIONS: Labor H/O PTD ------- VITAL [...] Normal appearance Interventr. Septum: Normal appearance Cardiac [place]: Normal appearance Diaphragm: Normal appearance 3 Vessel [...] live i (more content not included)... Normal [facility] US After 1st Trimester Patient Name: ALEJANDRA REAL Maternal Medicine ACCESSION EXAM DATE/TIME PROCEDURE ORDERING PROVIDER [id number] 07/19/2021 09:43 EDT MFM US Biophy w/o [id number] JERRELL WHITNEY non-stress Reason For Exam ([facility] US Biophy w/o non-stress) PTL Report ------- OBSTETRICS REPORT (Signed Final 07/19/2021 10:21 am) ------- PATIENT INFO: ID #: [id number] : [birth year] (25 yrs) Name: ALEJANDRA REAL Visit Date: 07/19/2021 09:19 am ------- PERFORMED BY: Attending: Misti Ziegler MD Performed By: Shamika Mckee RDMS Referred By: JERRELL VELEZ Visit Type: Inpatient - Hospital ------- SERVICE(S) PROVIDED: US >= 14 weeks 06830 BPP w/out NST 21485 ------- INDICATIONS: Labor H/O PTD ------- VITAL [...] Normal appearance Interventr. Septum: Normal appearance Cardiac [place]: Normal appearance Diaphragm: Normal appearance 3 Vessel [...] live i (more content not included)... Normal [facility] No Panel Informationon 07-19 Radiology Study observation (narrative) [facility] Work Phone: POCT GlucoseOrdered By: Venancio Hollingsworth on 07-19-2021 Glucose [Mass/Vol] 112 mg/dL High 70 - 100 mg/dL [facility] Comment on above: Test performed by [employer] ucose meter. Results may be 10%-15% lower than serum/plasma values. (CLIA ID [id number]) Interpretation and review of laboratory results Abnormal [facility] POCT Glucoseon 07-19-2021 Test Performed by [facility], [address] [place] [id number] [facility] RADIOLOGY REPORTon 2 Ordered by an unspecified provider. [facility] TS GELon 07-19-2021 TS GEL ABO Group: O Rh, Gel: POS Antibody Screen Gel: NEG Normal [facility] Comment on above: Performed By: #### T SGL #### [facility] TYPE AND SCREENon 07-19-2021 ABO Grouping O [facility] Rh Type Positive [facility] Test Performed by [address] LAB [facility] Trichomonas Vaginali, Molecu alesia 07-19-2021 Trichomonas Vaginali, Molecular NOT Detected Reference Interval: Not Detected Method: Real-time PCR. Negative results do not completely rule out infection with Trichomonas vaginalis. [facility] Test Performed by [facility], [address] [place] [address] LAB [facility] Trichomonas vaginalis PCRon 07-19-2021 Trichomonas vaginalis PCR Trichomonas vaginalis PCR --> Status: F NOT Detected Reference Interval: Not Detected Method: Real-time PCR. Negative results do not completely rule out infection with Trichomonas vaginalis. Reference Interval: Not Detected Method: Real-time PCR. Negative results do not completely rule out infection with Trichomonas vaginalis. Normal [facility] Comment on above: Performed By: #### C TNGP, TVPCR #### [address] [address] US BIOPHYSICAL PROFILE WO NON STRESS TESTINGon 07-19-2021 Patient Name: ALEJANDRA REAL Maternal Medicine ACCESSION EXAM DATE/TIME PROCEDURE ORDERING PROVIDER [id number] 07/19/2021 09:43 EDT [facility] US Biophy w/o [id number] PINZON non-stress Reason For Exam ([facility] US Biophy w/o non-stress) PTL Report ------- OBSTETRICS REPORT (Signed Final 07/19/2021 10:21 am) ------- PATIENT INFO: ID #: [id number] : [birth year] (25 yrs) Name: ALEJANDRA REAL Visit Date: 07/19/2021 09:19 am ------- PERFORMED BY: Attending: Misti Ziegler MD Performed By: Shamika Mckee RDMS Referred By: JERRELL VELEZ Visit Type: Inpatient - Hospital ------- SERVICE(S) PROVIDED: US >= 14 weeks 43076 BPP w/out NST 69146 ------- INDICATIONS: Labor H/O PTD ------- VITAL [...] Cardiac Situs: Norm (more content not included)... [facility] - 07/19/2021 Patient Name: ALEJANDRA REAL Maternal Medicine ACCESSION EXAM DATE/TIME PROCEDURE ORDERING PROVIDER [id number] 07/19/2021 09:43 EDT [facility] Biophy w/o [id number] JERRELL WHITNEY non-stress Reason For Exam ([facility] US Biophy w/o non-stress) PTL Report ------- OBSTETRICS REPORT (Signed Final 07/19/2021 10:21 am) ------- PATIENT INFO: ID #: [id number] : [birth year] (25 yrs) Name: ALEJANDRA REAL Visit Date: 07/19/2021 09:19 am ------- PERFORMED BY: Attending: Misti Ziegler MD Performed By: Shamika Mckee RDMS Referred By: JERRELL VELEZ Visit Type: Inpatient - Hospital ------- SERVICE(S) PROVIDED: US >= 14 weeks 87900 BPP w/out NST 96476 ------- INDICATIONS: Labor H/O PTD ------- VITAL [...] Normal appearance Interventr. Septum: Normal appearance Cardiac [place]: Normal appearance Diaphragm: Normal appearance 3 Vessel [...] Comment: Anatomy pablo (more content not included)... [employer] (?) Work Phone: US BIOPHYSICAL PROFILE WO NON STRESS TESTINGOrdered By: Misti Ziegler on 07-19-2021 [employer] (?) Work Phone: US OB 14 PLUS WEEKS SINGLE O R FIRST GESTATIONon 07-19-2021 Patient Name: ALEJANDRA REAL Maternal Medicine ACCESSION EXAM DATE/TIME PROCEDURE ORDERING PROVIDER [id number] 07/19/2021 09:43 EDT [facility] US Biophy w/o [id number] JERRELL WHITNEY non-stress Reason For Exam ([facility] US Biophy w/o non-stress) PTL Report ------- OBSTETRICS REPORT (Signed Final 07/19/2021 10:21 am) ------- PATIENT INFO: ID #: [id number] : [birth year] (25 yrs) Name: ALEJANDRA REAL Visit Date: 07/19/2021 09:19 am ------- PERFORMED BY: Attending: Misti Ziegler MD Performed By: Shamika Mckee RDMS Referred By: JERRELL VELEZ Visit Type: Inpatient - Hospital ------- SERVICE(S) PROVIDED: US >= 14 weeks 15512 BPP w/out NST 10768 ------- INDICATIONS: Labor H/O PTD ------- VITAL [...] Medicine ACCESSION EXAM DATE/TIME PROCEDURE ORDERING PROVIDER [id number] 07/19/2021 09:43 EDT [facility] US Biophy w/o [id number] JERRELL WHITNEY non-stress Reason For Exam ([facility] US Biophy w/o non-stress) PTL Report ------- OBSTETRICS REPORT (Signed Final 07/19/2021 10:21 am) ------- PATIENT INFO: ID #: [id number] : [birth year] (25 yrs) Name: ALEJANDRA REAL Visit Date: 07/19/2021 09:19 am ------- PERFORMED BY: Attending: Misti Ziegler MD Performed By: Shamika Mckee RDMS Referred By: JERRELL VELEZ Visit Type: Inpatient - Hospital ------- SERVICE(S) PROVIDED: US >= 14 weeks 63366 BPP w/out NST 75554 ------- INDICATIONS: Labor H/O PTD ------- VITAL [...] 21.3 % 20 - 24 Est. FW: 2164 gm 5 lb 8 oz 57 % ------- GESTATIONAL AGE: Clinical CEHYENNE: 33w 6d [place]: 08/31[birth year] U/S Today: 34w [...] Normal appearance Interventr. Septum: Normal appearance Cardiac [place]: Normal appearance Diaphragm: Normal appearance 3 Vessel [...] Comment: Anatomy pablo (more content not included)... [facility] Work Phone: [phone] [facility] Work Phone: [phone] Urinalysison 07-19-2021 Appearance (U) Clear Clear NA [...] [pH] [facility] Comment on above: . Specific Stephen, Urine <1.005 Abnormal S [facility] Comment on above: . Total Protein, Urine Negative Negativ e mg/dL [facility] Comment on above: . Urobilinogen, Urine Normal Normal ( 0-1) mg/dL [facility] Comment on above: . Test Performed by [facility], [address] [place] [id number] [place] [address] LAB [facility] ABO, External Resulton 12-27 ABO, External Result O [facility] Work Phone: [phone] C. Trachomatis, External Res [facility] 12-27-2020 C. Trachomatis, External Result Negative [facility] Work Phone: [phone] HIV, External Resulton 12-27 HIV, External Result Non-Reactive [facility] Work Phone: [phone] Hepatitis B, External Result on 12-27-2020 Hep B, External Result Negative [facility] Work Phone: [phone] N. Gonorrhoeae, External Res [facility] 12-27-2020 N. Gonorrhoeae, External Result Negative [facility] Work Phone: No Panel Informationon 12-27 [facility] Work Phone: [facility] Work Phone: RPR, External Labon 12-28-19 21 RPR, External Result Non-Reactive [facility] Work Phone: Rh Factor, External Resulton 12-27-2020 Rh Factor, External Result Positive [facility] Work Phone: Rubella Titer, External Resu lton 12-27-2020 Rubella Titer, External Result Immune [facility] Work Phone: Vital Signs Date Time Vital Sign Value Performing Clinician Facility 11-29-2023 06:45-0400 Body temperature 98.42 [degF] Bruno Estefani [facility] 11-29-2023 06:45-0400 Diastolic blood pressure 66 mm[Hg] Bruno Estefani [facility] 11-29-2023 06:45-0400 Heart rate 102 /min Bruno Estefani [facility] 11-29-2023 06:45-0400 Respiratory rate 20 /min Bruno Wahlner [facility] 11-29-2023 06:45-0400 SaO2% (BldA) [Mass fraction] 100 % Bruno Estefani [facility] 11-29-2023 06:45-0400 Systolic blood pressure 105 mm[Hg] Bruno Estefani [facility] 11-26-2023 10:30-0400 Body temperature 98.06 [degF] Justo Ricoe [facility] 11-26-2023 10:30-0400 Diastolic blood pressure 88 mm[Hg] Justo Hugo [facility] 11-26-2023 10:30-0400 Heart rate 81 /min Justo Hugo [facility] 11-26-2023 10:30-0400 Respiratory rate 18 /min Justo Arias [facility] 11-26-2023 10:30-0400 SaO2% (BldA) [Mass fraction] 100 % Justo Arias [facility] 11-26-2023 10:30-0400 Systolic blood pressure 136 mm[Hg] Justo Ricoe [facility] 11-24-2023 11:55-0400 Body temperature 98.6 [degF] Justo Arias [facility] 11-24-2023 11:55-0400 Diastolic blood pressure 85 mm[Hg] Justo Arias [facility] 11-24-2023 11:55-0400 Heart rate 91 /min Justo Arias [facility] 11-24-2023 11:55-0400 Respiratory rate 16 /min Justo Arias [facility] 11-24-2023 11:55-0400 SaO2% (BldA) [Mass fraction] 100 % Justo Arias [facility] 11-24-2023 11:55-0400 Systolic blood pressure 137 mm[Hg] Justo Arias [facility] 11-24-2023 11:11-0400 Blood Pressure Location Jedidris Bon [facility] 11-24-2023 11:11-0400 Diastolic blood pressure 73 mm[Hg] Fatoumata Gooden [facility] 11-24-2023 11:11-0400 Heart rate 78 /min Fatoumata Gooden [facility] 11-24-2023 11:11-0400 Respiratory rate 16 /min Fatoumata Gooden [facility] 11-24-2023 11:11-0400 SaO2% (BldA) [Mass fraction] 99 % Fatoumata Gooden [facility] 11-24-2023 11:11-0400 Systolic blood pressure 124 mm[Hg] Fatoumata Gooden [facility] 11-05-2023 09:01-0400 Heart rate 89 /min Guille Suman [facility] 11-05-2023 09:01-0400 Respiratory rate 16 /min Guille Suman [facility] 11-05-2023 09:01-0400 SaO2% (BldA) [Mass fraction] 98 % Guille Suman [facility] 11-05-2023 08:35-0400 Diastolic blood pressure 80 mm[Hg] Guille Suman [facility] 11-05-2023 08:35-0400 Heart rate 89 /min Guille Suman [facility] 11-05-2023 08:35-0400 Hourly Rounding Guille Suman [facility] 11-05-2023 08:35-0400 Mean blood pressure 92 mm[Hg] Guille Suman [facility] 11-05-2023 08:35-0400 Respiratory rate 16 /min Guille Suman [facility] 11-05-2023 08:35-0400 SaO2% (BldA) [Mass fraction] 99 % Guille Suman [facility] 11-05-2023 08:35-0400 Systolic blood pressure 116 mm[Hg] Guille Suman [facility] 11-05-2023 08:00-0400 Diastolic blood pressure 66 mm[Hg] Guille Suman [facility] 11-05-2023 08:00-0400 Heart rate 82 /min Guille Suman [facility] 11-05-2023 08:00-0400 Mean blood pressure 82 mm[Hg] Guille Suman [facility] 11-05-2023 08:00-0400 Respiratory rate 14 /min Guille Suman [facility] 11-05-2023 08:00-0400 Systolic blood pressure 114 mm[Hg] Guille Suman [facility] 11-05-2023 07:30-0400 Diastolic blood pressure 76 mm[Hg] Guille Suman [facility] 11-05-2023 07:30-0400 Mean blood pressure 91 mm[Hg] Guille Suman [facility] 11-05-2023 07:30-0400 Systolic blood pressure 120 mm[Hg] Guille Suman [facility] 11-05-2023 07:11-0400 Hourly Rounding Guille Suman [facility] Comment on above: Result Comment: denies needs/concerns 11-05-2023 05:00-0400 Blood Pressure Location Guille Suman [facility] 11-05-2023 00:01-0400 Body temperature 98.42 [degF] Guille Suman [facility] 11-05-2023 00:01-0400 Heart rate 78 /min Guille Suman [facility] 2023 15:02-0400 Body height 160.02 cm TI Dean Work Phone: [facility] 2023 15:02-0400 Body temperature 98.1 [degF] JOSEPH-C Satish Dean Work Phone: [facility] 2023 15:02-0400 Body weight 63.3 kg JOSEPH-C Satish Dean Work Phone: [facility] 2023 15:02-0400 Diastolic blood pressure 77 mm[Hg] JOSEPH-C Satish Dean Work Phone: [facility] 2023 15:02-0400 Heart rate 85 /min PA-C Satish Dean Work Phone: [facility] 2023 15:02-0400 Respiratory rate 19 /min JOSEPH-C Satish Dean Work Phone: [facility] 2023 15:02-0400 SaO2% (BldA) [Mass fraction] 100 % JOSEPH-Lawrence Dean Work Phone: [facility] 2023 15:02-0400 Systolic blood pressure 130 mm[Hg] JOSEPH-Lawrence Covarrubias Dean Work Phone: [facility] 2023 13:58-0400 Blood Pressure Location Suman Myles [facility] 2023 13:58-0400 Body temperature 98.6 [degF] Suman Myles [facility] 2023 13:58-0400 Diastolic blood pressure 70 mm[Hg] Suman Myles [facility] 2023 13:58-0400 Heart rate 101 /min Suman Myles [facility] 2023 13:58-0400 SaO2% (BldA) [Mass fraction] 100 % Suman Myles [facility] 2023 13:58-0400 Systolic blood pressure 136 mm[Hg] Suman Myles [facility] 11-01-2023 19:36-0400 Body temperature 98.6 [degF] Bruno Estefani [facility] 11-01-2023 19:36-0400 Diastolic blood pressure 83 mm[Hg] Bruno Estefani [facility] 11-01-2023 19:36-0400 Heart rate 93 /min Bruno Estefani [facility] 11-01-2023 19:36-0400 Respiratory rate 17 /min Bruno Estefani [facility] 11-01-2023 19:36-0400 SaO2% (BldA) [Mass fraction] 100 % Bruno Estefani [facility] 11-01-2023 19:36-0400 Systolic blood pressure 140 mm[Hg] Bruno Estefani [facility] 10-31-2023 12:44-0400 Body temperature 98.24 [degF] Justo Arias [facility] 10-31-2023 12:44-0400 Diastolic blood pressure 73 mm[Hg] Justo Arias [facility] 10-31-2023 12:44-0400 Heart rate 95 /min Justo Ricoe [facility] 10-31-2023 12:44-0400 Respiratory rate 18 /min Justo Arias [facility] 10-31-2023 12:44-0400 SaO2% (BldA) [Mass fraction] 99 % Justo Arias [facility] 10-31-2023 12:44-0400 Systolic blood pressure 130 mm[Hg] Justo Hugo [facility] 10-30-2023 16:12-0400 Body temperature 98.24 [degF] [facility] 10-30-2023 16:12-0400 Diastolic blood pressure 96 mm[Hg] [facility] 10-30-2023 16:12-0400 Heart rate 76 /min [facility] 10-30-2023 16:12-0400 Respiratory rate 16 /min [facility] 10-30-2023 16:12-0400 SaO2% (BldA) [Mass fraction] 100 % [facility] 10-30-2023 16:12-0400 Systolic blood pressure 131 mm[Hg] [facility] 10-25-2023 13:42-0400 Body temperature 98.42 [degF] Darren Dami [facility] 10-25-2023 13:42-0400 Diastolic blood pressure 77 mm[Hg] Darren Lomax [facility] 10-25-2023 13:42-0400 Heart rate 79 /min Darren Lomax [facility] 10-25-2023 13:42-0400 Respiratory rate 16 /min Darren Dami [facility] 10-25-2023 13:42-0400 SaO2% (BldA) [Mass fraction] 100 % Darren Dami [facility] 10-25-2023 13:42-0400 Systolic blood pressure 119 mm[Hg] Darren Dami [facility] 10-21-2023 18:16-0400 Body temperature 98.24 [degF] Justo Arias [facility] 10-21-2023 18:16-0400 Diastolic blood pressure 66 mm[Hg] Justo Arias [facility] 10-21-2023 18:16-0400 Heart rate 64 /min Justo Arias [facility] 10-21-2023 18:16-0400 Respiratory rate 18 /min Justo Arias [facility] 10-21-2023 18:16-0400 SaO2% (BldA) [Mass fraction] 98 % Justo Arias [facility] 10-21-2023 18:16-0400 Systolic blood pressure 133 mm[Hg] Justo Arias [facility] 10-19-2023 12:56-0400 Body temperature 98.78 [degF] [facility] 10-19-2023 12:56-0400 Diastolic blood pressure 73 mm[Hg] [facility] 10-19-2023 12:56-0400 Heart rate 74 /min [facility] 10-19-2023 12:56-0400 Respiratory rate 18 /min [facility] 10-19-2023 12:56-0400 SaO2% (BldA) [Mass fraction] 94 % [facility] 10-19-2023 12:56-0400 Systolic blood pressure 125 mm[Hg] [facility] 10-17-2023 17:33-0400 Body temperature 97.7 [degF] Darren Lomax [facility] 10-17-2023 17:33-0400 Diastolic blood pressure 83 mm[Hg] Darren Lomax [facility] 10-17-2023 17:33-0400 Heart rate 75 /min Darren Dami [facility] 10-17-2023 17:33-0400 Respiratory rate 18 /min Darren Lomax [facility] 10-17-2023 17:33-0400 SaO2% (BldA) [Mass fraction] 100 % Darren Lomax [facility] 10-17-2023 17:33-0400 Systolic blood pressure 126 mm[Hg] Darren Lomax [facility] 10-05-2023 19:24-0400 Body temperature 98.42 [degF] Bruno Estefani [facility] 10-05-2023 19:24-0400 Diastolic blood pressure 73 mm[Hg] Brnuo Estefani [facility] 10-05-2023 19:24-0400 Heart rate 107 /min Bruno Estefani [facility] 10-05-2023 19:24-0400 Respiratory rate 18 /min Bruno Estefani [facility] 10-05-2023 19:24-0400 SaO2% (BldA) [Mass fraction] 98 % Bruno Estefani [facility] 10-05-2023 19:24-0400 Systolic blood pressure 116 mm[Hg] Bruno Estefani [facility] 10-02-2023 07:47-0400 Diastolic blood pressure 69 mm[Hg] Kaylinn Dokken [facility] 10-02-2023 07:47-0400 Heart rate 93 /min Kaylinn Dokken [facility] 10-02-2023 07:47-0400 Mean blood pressure 86 mm[Hg] Kaylinn Dokken [facility] 10-02-2023 07:47-0400 Respiratory rate 18 /min Kaylinn Dokken [facility] 10-02-2023 07:47-0400 SaO2% (BldA) [Mass fraction] 99 % Kaylinn Dokken [facility] 10-02-2023 07:47-0400 Systolic blood pressure 119 mm[Hg] Kaylinn Dokken [facility] 10-02-2023 06:59-0400 Diastolic blood pressure 70 mm[Hg] Kaylinn Dokken [facility] 10-02-2023 06:59-0400 Heart rate 81 /min Kaylinn Dokken [facility] 10-02-2023 06:59-0400 Mean blood pressure 85 mm[Hg] Kaylinn Dokken [facility] 10-02-2023 06:59-0400 Respiratory rate 16 /min Kaylinn Dokken [facility] 10-02-2023 06:59-0400 SaO2% (BldA) [Mass fraction] 97 % Kaylinn Dokken [facility] 10-02-2023 06:59-0400 Systolic blood pressure 114 mm[Hg] Kaylinn Dokken [facility] 10-02-2023 06:28-0400 Body temperature 98.06 [degF] Kaylinn Dokken [facility] 10-02-2023 06:28-0400 Diastolic blood pressure 72 mm[Hg] Kaylinn Dokken [facility] 10-02-2023 06:28-0400 Heart rate 98 /min Kaylinn Dokken [facility] 10-02-2023 06:28-0400 Respiratory rate 18 /min Vivian Ochoa [facility] 10-02-2023 06:28-0400 SaO2% (BldA) [Mass fraction] 99 % Vivian Ochoa [facility] 10-02-2023 06:28-0400 Systolic blood pressure 142 mm[Hg] Vivian Ochoa [facility] 09-27-2023 11:34-0400 Body height 160.02 cm PA-C Satish Dean Work Phone: [facility] 09-27-2023 11:34-0400 Body temperature 98 [degF] PA-C Satish Dean Work Phone: [facility] 09-27-2023 11:34-0400 Body weight 65 kg PA-C Satish Dean Work Phone: [facility] 09-27-2023 11:34-0400 Diastolic blood pressure 74 mm[Hg] PA-C Satish Dean Work Phone: [facility] 09-27-2023 11:34-0400 Heart rate 79 /min PA-C Satish Dean Work Phone: [facility] 09-27-2023 11:34-0400 Respiratory rate 20 /min PA-C Satish Dean Work Phone: [facility] 09-27-2023 11:34-0400 SaO2% (BldA) [Mass fraction] 100 % PA-C Satish Dean Work Phone: [facility] 09-27-2023 11:34-0400 Systolic blood pressure 133 mm[Hg] PA-C Satish Dean Work Phone: [facility] 09-27-2023 10:31-0400 Body temperature 98.6 [degF] Darren Dami [facility] 09-27-2023 10:31-0400 Diastolic blood pressure 76 mm[Hg] Darren Lomax [facility] 09-27-2023 10:31-0400 Heart rate 80 /min Darren Dami [facility] 09-27-2023 10:31-0400 Respiratory rate 16 /min Darren Dami [facility] 09-27-2023 10:31-0400 SaO2% (BldA) [Mass fraction] 100 % Darren Lomax [facility] 09-27-2023 10:31-0400 Systolic blood pressure 127 mm[Hg] Darren Lomax [facility] 09-26-2023 15:20-0400 Body temperature 98.06 [degF] Darren Lomax [facility] 09-26-2023 15:20-0400 Diastolic blood pressure 80 mm[Hg] Darren Lomax [facility] 09-26-2023 15:20-0400 Heart rate 78 /min Draren Lomax [facility] 09-26-2023 15:20-0400 Respiratory rate 18 /min Darren Lomax [facility] 09-26-2023 15:20-0400 SaO2% (BldA) [Mass fraction] 100 % Darren Dami [facility] 09-26-2023 15:20-0400 Systolic blood pressure 137 mm[Hg] Darren Dami [facility] 09-24-2023 15:33-0400 Body temperature 98.24 [degF] Guille Will [facility] 09-24-2023 15:33-0400 Diastolic blood pressure 78 mm[Hg] Guille Suman [facility] 09-24-2023 15:33-0400 Heart rate 98 /min Guille Suman [facility] 09-24-2023 15:33-0400 Respiratory rate 18 /min Guille Suman [facility] 09-24-2023 15:33-0400 SaO2% (BldA) [Mass fraction] 100 % Guille Suman [facility] 09-24-2023 15:33-0400 Systolic blood pressure 116 mm[Hg] Guille Suman [facility] 09-20-2023 15:30-0400 Diastolic blood pressure 75 mm[Hg] Justo Hugo [facility] 09-20-2023 15:30-0400 Heart rate 98 /min Justo Hugo [facility] 09-20-2023 15:30-0400 Mean blood pressure 91 mm[Hg] Justo Hugo [facility] 09-20-2023 15:30-0400 Respiratory rate 18 /min Justo Hugo [facility] 09-20-2023 15:30-0400 SaO2% (BldA) [Mass fraction] 100 % Justo Hugo [facility] 09-20-2023 15:30-0400 Systolic blood pressure 124 mm[Hg] Justo Hugo [facility] 09-20-2023 14:30-0400 Diastolic blood pressure 73 mm[Hg] Justo Hugo [facility] 09-20-2023 14:30-0400 Heart rate 80 /min Justo Hugo [facility] 09-20-2023 14:30-0400 Mean blood pressure 93 mm[Hg] Justo Ricoe [facility] 09-20-2023 14:30-0400 Respiratory rate 18 /min Justo Ricoe [facility] 09-20-2023 14:30-0400 SaO2% (BldA) [Mass fraction] 100 % Justo Ricoe [facility] 09-20-2023 14:30-0400 Systolic blood pressure 132 mm[Hg] Justo Ricoe [facility] 09-20-2023 13:30-0400 Diastolic blood pressure 67 mm[Hg] Justo Ricoe [facility] 09-20-2023 13:30-0400 Heart rate 76 /min Justo Ricoe [facility] 09-20-2023 13:30-0400 Mean blood pressure 82 mm[Hg] Justo Ricoe [facility] 09-20-2023 13:30-0400 Respiratory rate 18 /min Justo Ricoe [facility] 09-20-2023 13:30-0400 SaO2% (BldA) [Mass fraction] 100 % Justo Ricoe [facility] 09-20-2023 13:30-0400 Systolic blood pressure 112 mm[Hg] Justo Ricoe [facility] 09-20-2023 12:33-0400 Body temperature 99.68 [degF] Justo Ricoe [facility] 09-20-2023 12:33-0400 Heart rate 81 /min Justo Rcioe [facility] 09-17-2023 05:08-0400 Diastolic blood pressure 65 mm[Hg] Kaylinn Dokken [facility] 09-17-2023 05:08-0400 Heart rate 94 /min Kaylinn Dokken [facility] 09-17-2023 05:08-0400 Mean blood pressure 79 mm[Hg] Kaylinn Dokken [facility] 09-17-2023 05:08-0400 Respiratory rate 17 /min Kaylinn Dokken [facility] 09-17-2023 05:08-0400 SaO2% (BldA) [Mass fraction] 99 % Kaylinn Dokken [facility] 09-17-2023 05:08-0400 Systolic blood pressure 108 mm[Hg] Kaylinn Dokken [facility] 09-17-2023 04:31-0400 Body temperature 98.42 [degF] Kaylinn Dokken [facility] 09-17-2023 04:31-0400 Diastolic blood pressure 76 mm[Hg] Kaylinn Dokken [facility] 09-17-2023 04:31-0400 Heart rate 94 /min Kaylinn Dokken [facility] 09-17-2023 04:31-0400 Respiratory rate 16 /min Kaylinn Dokken [facility] 09-17-2023 04:31-0400 SaO2% (BldA) [Mass fraction] 99 % Kaylinn Dokken [facility] 09-17-2023 04:31-0400 Systolic blood pressure 134 mm[Hg] Kaylinn Dokken [facility] 09-15-2023 08:39-0400 Blood Pressure Location Fatoumata Gooden [facility] 09-15-2023 08:39-0400 Diastolic blood pressure 76 mm[Hg] Fatoumata Gooden [facility] 09-15-2023 08:39-0400 Heart rate 106 /min Fatoumata Gooden [facility] 09-15-2023 08:39-0400 SaO2% (BldA) [Mass fraction] 99 % Fatoumata Gooden [facility] 09-15-2023 08:39-0400 Systolic blood pressure 110 mm[Hg] Fatoumata Gooden [facility] 09-14-2023 11:08-0400 Body temperature 98.24 [degF] Darren Dami [facility] 09-14-2023 11:08-0400 Diastolic blood pressure 80 mm[Hg] Darren Lomax [facility] 09-14-2023 11:08-0400 Heart rate 129 /min Darren Lomax [facility] 09-14-2023 11:08-0400 Respiratory rate 16 /min Darren Lomax [facility] 09-14-2023 11:08-0400 SaO2% (BldA) [Mass fraction] 98 % Darren Lomax [facility] 09-14-2023 11:08-0400 Systolic blood pressure 120 mm[Hg] Darren Dami [facility] 09-04-2023 12:01-0400 Body height 160.02 cm TI Dean Work Phone: [facility] 09-04-2023 12:01-0400 Body temperature 98 [degF] PA-C Satish Dean Work Phone: [facility] 09-04-2023 12:01-0400 Body weight 66.7 kg PA-C Satish Dean Work Phone: [facility] 09-04-2023 12:01-0400 Diastolic blood pressure 70 mm[Hg] PA-C Satish Dean Work Phone: [facility] 09-04-2023 12:01-0400 Heart rate 72 /min PA-C Satish Dean Work Phone: [facility] 09-04-2023 12:01-0400 Respiratory rate 17 /min PA-C Satish Dean Work Phone: [facility] 09-04-2023 12:01-0400 SaO2% (BldA) [Mass fraction] 100 % PA-C Satish Dean Work Phone: [facility] 09-04-2023 12:01-0400 Systolic blood pressure 119 mm[Hg] PA-C Satish Dean Work Phone: [facility] 08-20-2023 15:04-0400 Body temperature 98.5 [degF] PA-C Satish Dean Work Phone: [facility] 08-20-2023 15:04-0400 Diastolic blood pressure 70 mm[Hg] PA-C Satish Dean Work Phone: [facility] 08-20-2023 15:04-0400 Heart rate 72 /min PA-C Satish Dean Work Phone: [facility] 08-20-2023 15:04-0400 Respiratory rate 18 /min PA-C Satish Dean Work Phone: [facility] 08-20-2023 15:04-0400 SaO2% (BldA) [Mass fraction] 100 % PA-C Satish Dean Work Phone: [facility] 08-20-2023 15:04-0400 Systolic blood pressure 119 mm[Hg] JOSEPHPaulo Dean Work Phone: [facility] 08-20-2023 12:52-0400 Body height 160.02 cm TI Dean Work Phone: [facility] 08-20-2023 12:52-0400 Body weight 64.3 kg JOSEPHPaulo Dean Work Phone: [facility] 08-18-2023 10:29-0400 Body temperature 98.42 [degF] Justo Arias [facility] 08-18-2023 10:29-0400 Diastolic blood pressure 69 mm[Hg] Justo Arias [facility] 08-18-2023 10:29-0400 Heart rate 82 /min Justo Arias [facility] 08-18-2023 10:29-0400 Respiratory rate 18 /min Justo Arias [facility] 08-18-2023 10:29-0400 SaO2% (BldA) [Mass fraction] 99 % Justo Arias [facility] 08-18-2023 10:29-0400 Systolic blood pressure 119 mm[Hg] Justo Arias [facility] 08-14-2023 16:56-0400 Diastolic blood pressure 81 mm[Hg] [facility] 08-14-2023 16:56-0400 Heart rate 89 /min [facility] 08-14-2023 16:56-0400 Mean blood pressure 101 mm[Hg] [facility] 08-14-2023 16:56-0400 Respiratory rate 15 /min [facility] 08-14-2023 16:56-0400 SaO2% (BldA) [Mass fraction] 98 % [facility] 08-14-2023 16:56-0400 Systolic blood pressure 141 mm[Hg] [facility] 08-14-2023 14:42-0400 Body temperature 98.24 [degF] [facility] 08-14-2023 14:42-0400 Diastolic blood pressure 81 mm[Hg] [facility] 08-14-2023 14:42-0400 Heart rate 84 /min [facility] 08-14-2023 14:42-0400 Respiratory rate 18 /min [facility] 08-14-2023 14:42-0400 SaO2% (BldA) [Mass fraction] 98 % [facility] 08-14-2023 14:42-0400 Systolic blood pressure 146 mm[Hg] [facility] 08-10-2023 11:36-0400 Body temperature 98.6 [degF] [facility] 08-10-2023 11:36-0400 Diastolic blood pressure 108 mm[Hg] [facility] 08-10-2023 11:36-0400 Heart rate 115 /min [facility] 08-10-2023 11:36-0400 Respiratory rate 16 /min [facility] 08-10-2023 11:36-0400 SaO2% (BldA) [Mass fraction] 100 % [facility] 08-10-2023 11:36-0400 Systolic blood pressure 140 mm[Hg] [facility] 08-05-2023 18:10-0400 Diastolic blood pressure 73 mm[Hg] TI Dean Work Phone: [facility] 08-05-2023 18:10-0400 Heart rate 87 /min TI Dean Work Phone: [facility] 08-05-2023 18:10-0400 Respiratory rate 18 /min JOSEPHPaulo Dean Work Phone: [facility] 08-05-2023 18:10-0400 SaO2% (BldA) [Mass fraction] 98 % JOSEPHPaulo Dean Work Phone: [facility] 08-05-2023 18:10-0400 Systolic blood pressure 130 mm[Hg] JOSEPHPaulo Dean Work Phone: [facility] 08-05-2023 16:00-0400 Body height 160.02 cm JOSEPHPaulo Medranour Jermaine Work Phone: [facility] 08-05-2023 16:00-0400 Body temperature 98.1 [degF] JOSEPHMairaLawrence Satish Dean Work Phone: [facility] 08-05-2023 16:00-0400 Body weight 65.7 kg JOSEPHMairaLawrence Satish Dean Work Phone: [facility] 07-30-2023 13:07-0400 Blood Pressure Location LANETTE LUI [facility] 07-30-2023 13:07-0400 Body temperature 98.42 [degF] LANETTE LUI [facility] 07-30-2023 13:07-0400 Diastolic blood pressure 82 mm[Hg] LANETTE LUI [facility] 07-30-2023 13:07-0400 Heart rate 91 /min LANETTE LUI [facility] 07-30-2023 13:07-0400 SaO2% (BldA) [Mass fraction] 98 % LANETTE LUI [facility] 07-30-2023 13:07-0400 Systolic blood pressure 120 mm[Hg] LANETTE LUI [facility] 07-26-2023 12:12-0400 Diastolic blood pressure 69 mm[Hg] Darren Dami [facility] 07-26-2023 12:12-0400 Heart rate 93 /min Darren Dami [facility] 07-26-2023 12:12-0400 Mean blood pressure 89 mm[Hg] Darren Dami [facility] 07-26-2023 12:12-0400 Respiratory rate 14 /min Darren Dami [facility] 07-26-2023 12:12-0400 SaO2% (BldA) [Mass fraction] 100 % Darren Dami [facility] 07-26-2023 12:12-0400 Systolic blood pressure 128 mm[Hg] Darren Dami [facility] 07-26-2023 11:15-0400 Diastolic blood pressure 60 mm[Hg] Darren Dami [facility] 07-26-2023 11:15-0400 Heart rate 89 /min Darren Dami [facility] 07-26-2023 11:15-0400 Mean blood pressure 80 mm[Hg] Darren Dami [facility] 07-26-2023 11:15-0400 Respiratory rate 16 /min Darren Dami [facility] 07-26-2023 11:15-0400 SaO2% (BldA) [Mass fraction] 100 % Darren Dami [facility] 07-26-2023 11:15-0400 Systolic blood pressure 120 mm[Hg] Darren Dami [facility] 07-26-2023 10:30-0400 Diastolic blood pressure 73 mm[Hg] Darren Lomax [facility] 07-26-2023 10:30-0400 Heart rate 83 /min Darren Lomax [facility] 07-26-2023 10:30-0400 Mean blood pressure 87 mm[Hg] Darren Lomax [facility] 07-26-2023 10:30-0400 Respiratory rate 20 /min Darrenhao Lomax [facility] 07-26-2023 10:30-0400 SaO2% (BldA) [Mass fraction] 100 % Darrenhao Lomax [facility] 07-26-2023 10:30-0400 Systolic blood pressure 114 mm[Hg] Darren Lomax [facility] 07-26-2023 09:40-0400 Body temperature 98.78 [degF] Darrenhao Lomax [facility] 07-26-2023 09:40-0400 Heart rate 85 /min Darrenhao Lomax [facility] 07-26-2023 09:40-0400 Respiratory rate 16 /min Darren Lomax [facility] 07-19-2023 10:59-0400 Diastolic blood pressure 73 mm[Hg] [facility] 07-19-2023 10:59-0400 Heart rate 102 /min [facility] 07-19-2023 10:59-0400 Mean blood pressure 86 mm[Hg] [facility] 07-19-2023 10:59-0400 Respiratory rate 16 /min [facility] 07-19-2023 10:59-0400 SaO2% (BldA) [Mass fraction] 100 % [facility] 07-19-2023 10:59-0400 Systolic blood pressure 112 mm[Hg] [facility] 07-19-2023 10:32-0400 SaO2% (BldA) [Mass fraction] 100 % [facility] 07-19-2023 09:30-0400 Body temperature 98.06 [degF] [facility] 07-19-2023 09:30-0400 Diastolic blood pressure 75 mm[Hg] [facility] 07-19-2023 09:30-0400 Heart rate 114 /min [facility] 07-19-2023 09:30-0400 Respiratory rate 16 /min [facility] 07-19-2023 09:30-0400 SaO2% (BldA) [Mass fraction] 100 % [facility] 07-19-2023 09:30-0400 Systolic blood pressure 130 mm[Hg] [facility] 07-12-2023 19:49-0400 Diastolic blood pressure 76 mm[Hg] Justo Ricoe [facility] 07-12-2023 19:49-0400 Heart rate 112 /min Justo Ricoe [facility] 07-12-2023 19:49-0400 Mean blood pressure 95 mm[Hg] Justo Ricoe [facility] 07-12-2023 19:49-0400 Respiratory rate 20 /min Justo Ricoe [facility] 07-12-2023 19:49-0400 SaO2% (BldA) [Mass fraction] 98 % Justo Ricoe [facility] 07-12-2023 19:49-0400 Systolic blood pressure 132 mm[Hg] Justo Hugo [facility] 07-12-2023 19:29-0400 Diastolic blood pressure 65 mm[Hg] Justo Arias [facility] 07-12-2023 19:29-0400 Heart rate 99 /min Justo Arias [facility] 07-12-2023 19:29-0400 Mean blood pressure 81 mm[Hg] Justo Ricoe [facility] 07-12-2023 19:29-0400 Respiratory rate 8 /min Justo Arias [facility] 07-12-2023 19:29-0400 SaO2% (BldA) [Mass fraction] 99 % Justo Arias [facility] 07-12-2023 19:29-0400 Systolic blood pressure 113 mm[Hg] Justo Arias [facility] 07-12-2023 17:38-0400 Body temperature 98.6 [degF] Justo Arias [facility] 07-12-2023 17:38-0400 Diastolic blood pressure 72 mm[Hg] Justo Arias [facility] 07-12-2023 17:38-0400 Heart rate 125 /min Justo Arias [facility] 07-12-2023 17:38-0400 Respiratory rate 16 /min Justo Ricoe [facility] 07-12-2023 17:38-0400 SaO2% (BldA) [Mass fraction] 98 % Justo Arias [facility] 07-12-2023 17:38-0400 Systolic blood pressure 129 mm[Hg] Justo Arias [facility] 07-09-2023 16:21-0400 Blood Pressure Location Amos Castellon [facility] 07-09-2023 16:21-0400 Body temperature 98.42 [degF] Amos Castellon [facility] 07-09-2023 16:21-0400 Diastolic blood pressure 74 mm[Hg] Amos Castellon [facility] 07-09-2023 16:21-0400 Heart rate 86 /min Amos Castellon [facility] 07-09-2023 16:21-0400 SaO2% (BldA) [Mass fraction] 99 % Amos Castellon [facility] 07-09-2023 16:21-0400 Systolic blood pressure 122 mm[Hg] Amos Castellon [facility] 07-07-2023 13:05-0400 Diastolic blood pressure 68 mm[Hg] Justo Arias [facility] 07-07-2023 13:05-0400 Heart rate 84 /min Justo Ricoe [facility] 07-07-2023 13:05-0400 Mean blood pressure 92 mm[Hg] Justo Ricoe [facility] 07-07-2023 13:05-0400 Respiratory rate 16 /min Justo Ricoe [facility] 07-07-2023 13:05-0400 SaO2% (BldA) [Mass fraction] 98 % Justo Ricoe [facility] 07-07-2023 13:05-0400 Systolic blood pressure 139 mm[Hg] Justo Hugo [facility] 07-07-2023 12:02-0400 Heart rate 80 /min Justo Arias [facility] 07-07-2023 11:09-0400 Body temperature 99.32 [degF] Justo Arias [facility] 07-07-2023 11:09-0400 Diastolic blood pressure 60 mm[Hg] Justo Arias [facility] 07-07-2023 11:09-0400 Heart rate 106 /min Justo Arias [facility] 07-07-2023 11:09-0400 Respiratory rate 16 /min Justo Arias [facility] 07-07-2023 11:09-0400 SaO2% (BldA) [Mass fraction] 100 % Justo Arias [facility] 07-07-2023 11:09-0400 Systolic blood pressure 129 mm[Hg] Justo Arias [facility] 07-07-2023 10:04-0400 Blood Pressure Location LANETTE [employer] [facility] 07-07-2023 10:04-0400 Body temperature 98.24 [degF] LANETTE LUI [facility] 07-07-2023 10:04-0400 Diastolic blood pressure 73 mm[Hg] LANETTE LUI [facility] 07-07-2023 10:04-0400 Heart rate 88 /min LANETTE LUI [facility] 07-07-2023 10:04-0400 SaO2% (BldA) [Mass fraction] 99 % LANETTE LUI [facility] 07-07-2023 10:04-0400 Systolic blood pressure 117 mm[Hg] LANETTE LUI [facility] 06-29-2023 08:20-0500 Diastolic blood pressure 65 mm[Hg] Bruno Estefani [facility] 06-29-2023 08:20-0500 Heart rate 106 /min Bruno Estefani [facility] 06-29-2023 08:20-0500 Mean blood pressure 79 mm[Hg] Bruno Estefani [facility] 06-29-2023 08:20-0500 Respiratory rate 16 /min Bruno Estefani [facility] 06-29-2023 08:20-0500 SaO2% (BldA) [Mass fraction] 98 % Bruno Estefani [facility] 06-29-2023 08:20-0500 Systolic blood pressure 106 mm[Hg] Bruno Estefani [facility] 06-29-2023 07:16-0500 Diastolic blood pressure 67 mm[Hg] Bruno Estefani [facility] 06-29-2023 07:16-0500 Heart rate 91 /min Bruno Estefani [facility] 06-29-2023 07:16-0500 Mean blood pressure 80 mm[Hg] Bruno Estefani [facility] 06-29-2023 07:16-0500 Respiratory rate 15 /min Bruno Estefani [facility] 06-29-2023 07:16-0500 SaO2% (BldA) [Mass fraction] 98 % Bruno Estefani [facility] 06-29-2023 07:16-0500 Systolic blood pressure 106 mm[Hg] Bruno Estefani [facility] 06-29-2023 06:18-0500 Body temperature 98.78 [degF] Bruno Jara [facility] 06-29-2023 06:18-0500 Diastolic blood pressure 66 mm[Hg] Bruno Estefani [facility] 06-29-2023 06:18-0500 Heart rate 104 /min Bruno Estefani [facility] 06-29-2023 06:18-0500 Respiratory rate 20 /min Bruno Estefani [facility] 06-29-2023 06:18-0500 SaO2% (BldA) [Mass fraction] 100 % Bruno Estefani [facility] 06-29-2023 06:18-0500 Systolic blood pressure 114 mm[Hg] Bruno Jara [facility] 06-14-2023 08:51-0500 Body temperature 98.24 [degF] Justo Arias [facility] 06-14-2023 08:51-0500 Diastolic blood pressure 65 mm[Hg] Justo Hugo [facility] 06-14-2023 08:51-0500 Heart rate 84 /min Justo Hugo [facility] 06-14-2023 08:51-0500 Respiratory rate 16 /min Justo Hugo [facility] 06-14-2023 08:51-0500 SaO2% (BldA) [Mass fraction] 100 % Justo Hugo [facility] 06-14-2023 08:51-0500 Systolic blood pressure 123 mm[Hg] Justo Hugo [facility] 05-31-2023 11:17-0500 Diastolic blood pressure 74 mm[Hg] [facility] 05-31-2023 11:17-0500 Heart rate 104 /min [facility] 05-31-2023 11:17-0500 Mean blood pressure 90 mm[Hg] [facility] 05-31-2023 11:17-0500 Respiratory rate 16 /min [facility] 05-31-2023 11:17-0500 SaO2% (BldA) [Mass fraction] 100 % [facility] 05-31-2023 11:17-0500 Systolic blood pressure 123 mm[Hg] [facility] 05-31-2023 10:59-0500 Hourly Rounding [facility] 05-31-2023 10:59-0500 Promise to Return [facility] 05-31-2023 10:59-0500 SaO2% (BldA) [Mass fraction] 99 % [facility] 05-31-2023 10:30-0500 Diastolic blood pressure 69 mm[Hg] [facility] 05-31-2023 10:30-0500 Heart rate 123 /min [facility] 05-31-2023 10:30-0500 Mean blood pressure 84 mm[Hg] [facility] 05-31-2023 10:30-0500 Respiratory rate 16 /min [facility] 05-31-2023 10:30-0500 SaO2% (BldA) [Mass fraction] 98 % [facility] 05-31-2023 10:30-0500 Systolic blood pressure 113 mm[Hg] [facility] 05-31-2023 09:56-0500 Hourly Rounding [facility] 05-31-2023 09:56-0500 Promise to Return [facility] 05-31-2023 09:30-0500 Diastolic blood pressure 71 mm[Hg] [facility] 05-31-2023 09:30-0500 Heart rate 110 /min [facility] 05-31-2023 09:30-0500 Mean blood pressure 89 mm[Hg] [facility] 05-31-2023 09:30-0500 Respiratory rate 16 /min [facility] 05-31-2023 09:30-0500 Systolic blood pressure 125 mm[Hg] [facility] 05-31-2023 08:10-0500 Body temperature 98.06 [degF] [facility] 05-31-2023 08:10-0500 Heart rate 97 /min [facility] 05-11-2023 11:30-0500 Blood Pressure Location [facility] 05-11-2023 11:30-0500 Body temperature 98.42 [degF] [facility] 05-11-2023 11:30-0500 Diastolic blood pressure 68 mm[Hg] [facility] 05-11-2023 11:30-0500 Heart rate 103 /min [facility] 05-11-2023 11:30-0500 Respiratory rate 18 /min [facility] 05-11-2023 11:30-0500 SaO2% (BldA) [Mass fraction] 99 % [facility] 05-11-2023 11:30-0500 Systolic blood pressure 126 mm[Hg] [facility] 05-03-2023 12:20-0500 Blood Pressure Location Isaac Stephen [facility] 05-03-2023 12:20-0500 Body temperature 98.06 [degF] Isaac Stephen [facility] 05-03-2023 12:20-0500 Diastolic blood pressure 70 mm[Hg] Isaac Hailee [facility] 05-03-2023 12:20-0500 Heart rate 110 /min Isaac Hailee [facility] 05-03-2023 12:20-0500 SaO2% (BldA) [Mass fraction] 98 % Isaac Hailee [facility] 05-03-2023 12:20-0500 Systolic blood pressure 114 mm[Hg] Isaac Hailee [facility] 04-15-2023 11:34-0500 Body temperature 98.24 [degF] Justo Arias [facility] 04-15-2023 11:34-0500 Diastolic blood pressure 78 mm[Hg] Justo Arias [facility] 04-15-2023 11:34-0500 Heart rate 98 /min Justo Arias [facility] 04-15-2023 11:34-0500 Respiratory rate 18 /min Justo Arias [facility] 04-15-2023 11:34-0500 SaO2% (BldA) [Mass fraction] 97 % Justo Arias [facility] 04-15-2023 11:34-0500 Systolic blood pressure 119 mm[Hg] Justo Hugo [facility] 03-31-2023 11:24-0500 Body height 157.5 cm Regi Hunter PA-C Work Phone: [facility] 03-31-2023 11:24-0500 Body mass index (BMI) [Ratio] 23.81 kg/m2 Regi Hunter PA-C Work Phone: [facility] 03-31-2023 11:24-0500 Body weight 59.06 kg Regi Hunter PA-C Work Phone: [facility] 03-30-2023 15:41-0500 Body temperature 98.6 [degF] Guille Will [facility] 03-30-2023 15:41-0500 Diastolic blood pressure 90 mm[Hg] Guille Will [facility] 03-30-2023 15:41-0500 Heart rate 85 /min Guille Will [facility] 03-30-2023 15:41-0500 Respiratory rate 20 /min Guille Will [facility] 03-30-2023 15:41-0500 SaO2% (BldA) [Mass fraction] 100 % Guille Will [facility] 03-30-2023 15:41-0500 Systolic blood pressure 147 mm[Hg] Guille Will [facility] 03-24-2023 11:45-0500 Body temperature 97.7 [degF] Thiago Cuellar MD Work Phone: [facility] 03-24-2023 11:45-0500 Diastolic blood pressure 59 mm[Hg] Thiago Cuellar MD Work Phone: [facility] 03-24-2023 11:45-0500 Heart rate 81 /min Thiago Cuellar MD Work Phone: [facility] 03-24-2023 11:45-0500 Respiratory rate 20 /min Thiago Cuellar MD Work Phone: [facility] 03-24-2023 11:45-0500 SaO2% (BldA) [Mass fraction] 97 % Thiago Cuellar MD Work Phone: [facility] 03-24-2023 11:45-0500 Systolic blood pressure 120 mm[Hg] Thiago Cuellar MD Work Phone: [facility] 03-24-2023 07:14-0500 Body height 157.5 cm Thiago Cuellar MD Work Phone: [facility] 03-24-2023 07:14-0500 Body mass index (BMI) [Ratio] 23.59 kg/m2 Thiago Cuellar MD Work Phone: [facility] 03-24-2023 07:14-0500 Body weight 58.5 kg Thiago Cuellar MD Work Phone: [facility] 03-11-2023 17:03-0500 Blood Pressure Location Amos Castellon [facility] 03-11-2023 17:03-0500 Body temperature 98.96 [degF] Amos Castellon [facility] 03-11-2023 17:03-0500 Diastolic blood pressure 68 mm[Hg] Amos Castellon [facility] 03-11-2023 17:03-0500 Heart rate 82 /min Amos Castellon [facility] 03-11-2023 17:03-0500 SaO2% (BldA) [Mass fraction] 98 % Amos Castellon [facility] 03-11-2023 17:03-0500 Systolic blood pressure 112 mm[Hg] Amos Castellon [facility] 02-06-2023 11:20-0400 Body height 157.5 cm Thiago Cuellar MD Work Phone: [facility] 02-06-2023 11:20-0400 Body mass index (BMI) [Ratio] 24.09 kg/m2 Thiago Cuellar MD Work Phone: [facility] 02-06-2023 11:20-0400 Body weight 59.74 kg Thiago Cuellar MD Work Phone: [facility] 01-24-2023 09:25-0400 Blood Pressure Location Rojelio Spasic [facility] 01-24-2023 09:25-0400 Body temperature 98.6 [degF] Rojelio Spasic [facility] 01-24-2023 09:25-0400 Diastolic blood pressure 70 mm[Hg] Rojelio Spasic [facility] 01-24-2023 09:25-0400 Heart rate 83 /min Rojelio Spasic [facility] 01-24-2023 09:25-0400 SaO2% (BldA) [Mass fraction] 99 % Rojelio Spasic [facility] 01-24-2023 09:25-0400 Systolic blood pressure 122 mm[Hg] Rojelio Spasic [facility] 01-15-2023 13:36-0400 Blood Pressure Location Rojelio Spasic [facility] 01-15-2023 13:36-0400 Body temperature 98.6 [degF] Rojelio Spasic [facility] 01-15-2023 13:36-0400 Diastolic blood pressure 76 mm[Hg] Rojelio Spasic [facility] 01-15-2023 13:36-0400 Heart rate 71 /min Rojelio Spasic [facility] 01-15-2023 13:36-0400 SaO2% (BldA) [Mass fraction] 98 % Rojelio Spasic [facility] 01-15-2023 13:36-0400 Systolic blood pressure 122 mm[Hg] Rojelio Morelossic [facility] 11-09-2022 14:14-0400 Blood Pressure Location Amos Castellon [facility] 11-09-2022 14:14-0400 Body temperature 98.6 [degF] Amos Castellon [facility] 11-09-2022 14:14-0400 Diastolic blood pressure 70 mm[Hg] Amos Castellon [facility] 11-09-2022 14:14-0400 Heart rate 70 /min Amos Castellon [facility] 11-09-2022 14:14-0400 SaO2% (BldA) [Mass fraction] 98 % Amos Castellon [facility] 11-09-2022 14:14-0400 Systolic blood pressure 118 mm[Hg] Amos Castellon [facility] 07-03-2022 08:35-0500 Diastolic blood pressure 88 mm[Hg] [facility] 07-03-2022 08:35-0500 Heart rate 95 /min [facility] 07-03-2022 08:35-0500 Respiratory rate 19 /min [facility] 07-03-2022 08:35-0500 SaO2% (BldA) [Mass fraction] 100 % [facility] 07-03-2022 08:35-0500 Systolic blood pressure 145 mm[Hg] [facility] 06-26-2022 14:19-0500 Blood Pressure Location [facility] 06-26-2022 14:19-0500 Body temperature 98.42 [degF] [facility] 06-26-2022 14:19-0500 Diastolic blood pressure 66 mm[Hg] [facility] 06-26-2022 14:19-0500 Heart rate 107 /min [facility] 06-26-2022 14:19-0500 SaO2% (BldA) [Mass fraction] 98 % [facility] 06-26-2022 14:19-0500 Systolic blood pressure 118 mm[Hg] [facility] 09-14-2021 20:00-0400 Body temperature 98.42 [degF] Darren Lomax [facility] 09-14-2021 20:00-0400 Diastolic blood pressure 64 mm[Hg] Darren Lomax [facility] 09-14-2021 20:00-0400 Heart rate 85 /min Darren Lomax [facility] 09-14-2021 20:00-0400 Mean blood pressure 79 mm[Hg] Darren Lomax [facility] 09-14-2021 20:00-0400 Respiratory rate 17 /min Darren Lomax [facility] 09-14-2021 20:00-0400 Systolic blood pressure 108 mm[Hg] Darren Lomax [facility] 09-14-2021 19:00-0400 Diastolic blood pressure 60 mm[Hg] Darren Lomax [facility] 09-14-2021 19:00-0400 Mean blood pressure 77 mm[Hg] Darren Dami [facility] 09-14-2021 19:00-0400 SaO2% (BldA) [Mass fraction] 99 % Darren Dami [facility] 09-14-2021 19:00-0400 Systolic blood pressure 112 mm[Hg] Darren Dmai [facility] 09-14-2021 18:57-0400 SaO2% (BldA) [Mass fraction] 100 % Darren Dami [facility] 09-14-2021 18:56-0400 Hourly Rounding Darren Lomax [facility] 09-14-2021 18:56-0400 Promise to Return Darrenhao Lomax [facility] 09-14-2021 18:30-0400 Diastolic blood pressure 55 mm[Hg] Darren Dami [facility] 09-14-2021 18:30-0400 Heart rate 79 /min Darren Dami [facility] 09-14-2021 18:30-0400 Mean blood pressure 73 mm[Hg] Darren Dami [facility] 09-14-2021 18:30-0400 Respiratory rate 16 /min Darren Dami [facility] 09-14-2021 18:30-0400 Systolic blood pressure 110 mm[Hg] Darren Dami [facility] 09-14-2021 17:39-0400 Body temperature 98.6 [degF] Darren Dami [facility] 09-14-2021 17:39-0400 Heart rate 93 /min Darren Dami [facility] 09-14-2021 17:39-0400 Respiratory rate 16 /min Darren Lomax [facility] 07-20-2021 11:33-0400 Body temperature 97 [degF] Whitney Barrera MD Work Phone: [facility] 07-20-2021 11:33-0400 Diastolic blood pressure 66 mm[Hg] Whitney Barrera MD Work Phone: [facility] 07-20-2021 11:33-0400 Heart rate 91 /min Whitney Barrera MD Work Phone: [facility] 07-20-2021 11:33-0400 Respiratory rate 18 /min Whitney Barrera MD Work Phone: [facility] 07-20-2021 11:33-0400 SaO2% (BldA) [Mass fraction] 97 % hWitney Barrera MD Work Phone: [facility] 07-20-2021 11:33-0400 Systolic blood pressure 98 mm[Hg] Whitney Barrera MD Work Phone: [facility] 07-19-2021 02:24-0400 Body height 157.5 cm Whitney Barrera MD Work Phone: [facility] 07-19-2021 02:24-0400 Body mass index (BMI) [Ratio] 28.17 kg/m2 Whitney Barrera MD Work Phone: [facility] 07-19-2021 02:24-0400 Body weight 69.85 kg Whitney Barrera MD Work Phone: [facility] Encounters Encounter Date Encounter Type Care Provider Facility Start: 11-29-2023 End: 11-29-2023 Emergency department patient visit Bruno Jara [facility] Start: 11-26-2023 End: 11-26-2023 Emergency department patient visit Justo Arias [facility] Start: 11-24-2023 End: 11-24-2023 ambulatory Ivana Bennett [place] [place]: 11-24-2023 End: 11-24-2023 Patient encounter procedure Ivana Bennett [facility] Start: 11-24-2023 End: 11-24-2023 Emergency department patient visit Justo Arias [facility] Start: 11-24-2023 End: 11-24-2023 ambulatory Jedidris MorinVinh Gooden [place] [place]: 11-24-2023 End: 11-24-2023 Patient encounter procedure [facility] PatienceVinh Gooden [facility] Start: 11-06-2023 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 FLORENTIN MORENO Fa cility:[facility] Start: 11-05-2023 ambulatory Fatoumata Gooden Facility: [facility] Start: 11-04-2023 End: 11-05-2023 Emergency department patient visit Gulile Will [facility] Start: 11-03-2023 End: 11-04-2023 Pre-admission assessment Fatoumata PatienceVinh Gooden [facility] Start: 2023 End: 2023 Emergency department patient visit TI Dean Work Phone: [facility] Work Phone: Start: 2023 End: 2023 ambulatory Suman Myles Facility:[facility] Start: 2023 End: 2023 Patient encounter procedure Suman Myles [facility] Start: 11-01-2023 End: 11-01-2023 Emergency department patient visit Bruno Jara [facility] Start: 10-31-2023 End: 10-31-2023 Emergency department patient visit Justo Arias [place] [place] Start: 10-30-2023 End: 10-30-2023 [facility] Start: 10-27-2023 End: 11-28-2023 Pre-admission assessment Cristóbal Granados [facility] Start: 10-25-2023 End: 10-25-2023 Emergency department patient visit Darren Lomax [facility] Start: 10-21-2023 End: 10-21-2023 Emergency department patient visit Justo Arias [facility] Start: 10-19-2023 End: 10-19-2023 [facility] Start: 10-17-2023 End: 10-17-2023 Emergency department patient visit Darren Lomax [facility] Start: 10-17-2023 End: 10-17-2023 ambulatory LANETTE LUI Facility: [facility] Start: 10-17-2023 End: 10-17-2023 Patient encounter procedure LANETTE LUI [facility] Start: 10-05-2023 End: 10-05-2023 Emergency department patient visit Bruno Jara [place] [place] Start: 10-02-2023 End: 10-02-2023 Emergency department patient visit Vivian Ochoa [facility] Start: 09-27-2023 End: 09-27-2023 [facility] Start: 09-26-2023 End: 09-26-2023 Emergency department patient visit Darren Lomax [facility] Start: 09-24-2023 Emergency department patient visit Guille Will [place] [place] Start: 09-24-2023 End: 09-24-2023 Emergency department patient visit Guille Will [facility] Start: 09-20-2023 End: 09-20-2023 Emergency department patient visit Justo Arias [place] [place] Start: 09-20-2023 End: 09-20-2023 Emergency department patient visit Justo Arias [facility] Start: 09-17-2023 End: 09-17-2023 Emergency department patient visit DO Vivian Ochoa [place] [place] Start: 09-17-2023 End: 09-17-2023 Emergency department patient visit Vivian Ochoa [facility] Start: 09-15-2023 End: 09-16-2023 ambulatory XXXX NONE [place] [place] Start: 09-15-2023 End: 09-15-2023 Patient encounter procedure Fatoumata Gooden [facility] [facility] Start: 09-14-2023 End: 09-14-2023 Emergency department patient visit Darren Lomax [place] [place]: 09-14-2023 End: 09-14-2023 Emergency department patient visit Darren Lomax [facility] Start: 09-04-2023 End: 09-04-2023 Emergency department patient visit TI Dean Work Phone: [facility] Work Phone: Start: 08-28-2023 End: 08-28-2023 Emergency department patient visit LORRI Rafaela [facility] Start: 08-26-2023 End: 08-26-2023 ambulatory GAYLA DUNBAR Not Available Start: 08-23-2023 End: 08-23-2023 Emergency department patient visit Darren Lomax [place] [place] Start: 08-20-2023 End: 08-20-2023 Emergency department patient visit TI Dean Work Phone: [facility] Work Phone: Start: 08-18-2023 End: 08-18-2023 Emergency department patient visit Justo Arias [place] [place] Start: 08-18-2023 End: 08-18-2023 Emergency department patient visit Justo Arias [facility] Start: 08-14-2023 End: 08-14-2023 Emergency department patient visit Mary Jane Romojuvencio [place] [place] Start: 08-14-2023 End: 08-14-2023 Emergency department patient visit Mary Jane Palm [facility] Start: 08-10-2023 End: 08-10-2023 Emergency department patient visit Mary Jane Parkinsondulce [place] [place] Start: 08-10-2023 End: 08-10-2023 [facility] Start: 08-05-2023 End: 08-06-2023 ambulatory SIVAN KONG Not Available Start: 08-05-2023 End: 08-05-2023 Emergency department [facility] Start: 08-05-2023 End: 08-05-2023 ambulatory SIVAN KONG Not Available Start: 07-30-2023 End: 07-31-2023 ambulatory LANETTE LUI Facility: [facility] Start: 07-30-2023 End: 07-30-2023 Patient encounter procedure LANETTE CORTEZTIZ [facility] Start: 07-30-2023 End: 08-07-2023 Pre-admission assessment Ivana Bennett [facility] Start: 07-26-2023 End: 07-26-2023 Emergency department patient visit Darren Lomax [place] [place] Start: 07-26-2023 End: 07-26-2023 Emergency department patient visit Darren Lomax [facility] Start: 07-24-2023 End: 07-30-2023 Pre-admission assessment Ivana Bennett [facility] Start: 07-19-2023 End: 07-19-2023 Emergency department patient visit Chrisraina Parkinsondulce [place] [place] Start: 07-19-2023 End: 07-19-2023 [facility] Start: 07-14-2023 End: 08-05-2023 Pre-admission assessment Siomara Nettles [facility] Start: 07-12-2023 End: 07-12-2023 Emergency department patient visit Justo Arias [place] [place] Start: 07-12-2023 End: 07-12-2023 Emergency department patient visit Justo Arias [facility] Start: 07-09-2023 End: 07-10-2023 ambulatory Amos PreetiVinh Hilley Facility: [facility] Start: 07-09-2023 End: 07-09-2023 Patient encounter procedure Amos PreetiVinh Hilley [facility] Start: 07-07-2023 End: 07-07-2023 Emergency department patient visit Justo Arias [place] [place] Start: 07-07-2023 End: 07-08-2023 ambulatory LANETTE LUI [place] [place] Start: 07-07-2023 End: 07-07-2023 Emergency department patient visit Justo Arias [facility] Start: 07-07-2023 End: 07-07-2023 Lab Drop off LANETTE CORTEZTIZ [facility] Start: 07-07-2023 End: 07-07-2023 Patient encounter procedure LANETTE LUI [facility] Start: 06-29-2023 End: 06-29-2023 Emergency department patient visit Bruno Jara [place] [place] Start: 06-29-2023 End: 06-29-2023 Emergency department patient visit Bruno Jara [facility] Start: 06-14-2023 End: 06-14-2023 Emergency department patient visit Justo Arias [place] [place] Start: 06-14-2023 End: 06-14-2023 Emergency department patient visit Justo Arias [facility] Start: 05-31-2023 End: 05-31-2023 Emergency department patient visit Mary Jane Palm [place] [place] Start: 05-31-2023 End: 05-31-2023 Emergency department patient visit Mary Jane Palm [facility] Start: 05-28-2023 End: 07-28-2023 ambulatory Nancy Rose [place] [place] Start: 05-28-2023 End: 05-28-2023 Emergency department patient visit Darren Lomax [place] [place] Start: 05-22-2023 End: 05-23-2023 Pre-admission assessment Nancy Rose [facility] Start: 05-22-2023 End: 05-22-2023 Emergency department patient visit Bruno Jara [place] [place] Start: 05-11-2023 End: 05-12-2023 ambulatory Geovany Ramirez Facility:[facility] Start: 05-11-2023 End: 05-11-2023 Patient encounter procedure Geovany Ramirez [facility] Start: 05-06-2023 End: 05-07-2023 ambulatory Gilbert Valverde [place] [place] Start: 05-03-2023 End: 05-04-2023 ambulatory Isaac Stephen Facility:[facility] Start: 05-03-2023 End: 05-03-2023 Patient encounter procedure Isaac Stephen [facility] Start: 05-01-2023 End: 05-01-2023 ambulatory [facility] Start: 04-15-2023 End: 04-15-2023 Emergency department patient visit Justo Arias [place] [place] Start: 04-15-2023 End: 04-15-2023 Emergency department patient visit Justo Arias [facility] Start: 04-11-2023 End: 04-11-2023 Emergency department patient visit Guille Will [place] [place] Start: 03-31-2023 End: 03-31-2023 ambulatory [facility] Start: 03-31-2023 End: 03-31-2023 Postop follow up visit related to original px [facility] TI Work Phone: [facility] Comment on above: Deviated septum (Maggie lavonne Dx); Nasal congestion; Difficulty breathing; Collapse of nasal valve; Hypertrophy of inferior nasal turbinate Start: 03-30-2023 End: 03-30-2023 Emergency department patient visit Guille Will [place] [place] Start: 03-30-2023 End: 03-30-2023 Emergency department patient visit Guille Will [facility] Start: 03-24-2023 End: 03-24-2023 ambulatory [facility] Start: 03-24-2023 End: 03-24-2023 Subsequent hospital visit by physician Thiago Cuellar MD Work Phone: [facility] Comment on above: Nasal septal deviati on (Primary Dx); Acute post-operative pain Start: 03-22-2023 End: 03-22-2023 ambulatory ANABELA SAEZ Not Available Start: 03-11-2023 End: 03-12-2023 ambulatory Amos Castellon Facility:[facility] Start: 03-11-2023 End: 03-11-2023 Patient encounter procedure Amos Castellon [facility] Start: 02-06-2023 End: 02-06-[address] [facility] Start: 02-06-2023 End: 02-06-2023 Office consultation new/estab patient 40 min Thiago Cuellar MD Work Phone: [facility] Comment on above: Difficulty breathing (Primary Dx); Nasal septal deviation; Hypertrophy of inferior nasal turbinate; Collapse of nasal valve; Nasal congestion; Deviated septum Start: 01-24-2023 End: 01-25-2023 ambulatory Rojelio V. Spasic Facility:[facility] Start: 01-24-2023 End: 01-24-2023 Patient encounter procedure Rojelio V. Spasic [facility] Start: 01-15-2023 End: 01-16-2023 ambulatory Rojelio V. Spasic Facility:[facility] Start: 01-15-2023 End: 01-15-2023 Patient encounter procedure Rojelio V. Spasic [facility] Start: 11-19-2022 End: 11-19-2022 Emergency department patient visit Vivian Ochoa [place] [place] Start: 11-09-2022 End: 11-10-2022 ambulatory Isaac Stephen [place] [place] Start: 11-09-2022 End: 11-09-2022 Patient encounter procedure Amos Castellon [facility] Start: 09-04-2022 End: 09-28-2022 Pre-admission assessment Gilbert Valverde [facility] Start: 08-02-2022 End: 09-04-2022 Pre-admission assessment Gilbert Valverde [facility] Start: 07-18-2022 End: 07-18-2022 Patient encounter procedure Gina Sterling [facility] Start: 07-18-2022 End: 07-18-2022 Patient encounter procedure Gilbert Valverde [facility] Start: 07-03-2022 End: 07-03-2022 Emergency department patient visit Mary Jane Palm [facility] Start: 06-26-2022 End: 06-26-2022 Patient encounter procedure Geovany Ramirez [facility] Start: 09-14-2021 End: 09-14-2021 Emergency department patient visit Darren ÁlvarezVinh Lomax [facility] Start: 09-12-2021 End: 09-12-2021 Lab Drop off Miguel Angel Kuo [facility] Start: 07-18-2021 End: 07-20-2021 Evaluation and management of inpatient Whitney Barrera MD Work Phone: [facility] Procedures Date Procedure Procedure Detail Performing Clinician Start: 08-20-2023 Computed tomography of abdomen and pelvis with contrast TI Dean Work Phone: Start: 03-24-2023 PULSE OXIMETRY, CONTINUOUS THIAGO POLO Start: 03-24-2023 PULSE OXIMETRY, CONTINUOUS Annita Mcrae MD Work Phone: Start: 03-24-2023 DISCHARGE PATIENT THIAGO POLO Start: 03-24-2023 POCT , URINE C YRUS [...] uterus after 1st trimest 04/28 gestation Jerrell Leora Velez DO Work Phone: Start: 07-19-2021 Comprehensive metabo lic panel Francsico Rodriguez MD Work Phone: Start: 07-19-2021 Antibody screen Whitney velasquez MD Work Phone: Start: 07-19-2021 Blood count complete automated Jerrellalexus Velez DO Work Phone: Start: 07-19-2021 Blood typing serologic abo Jerrell Velez DO Work Phone: Start: 07-19-2021 Iadna multiple organ isms direct probe tq Jerrell Leora Agustin DO Work Phone: Start: 07-19-2021 TRICHOMONAS VAGINALI , MOLECULAR Jerrellalexus Velez DO Work Phone: Start: 07-19-2021 Urnls dip stick/tabl et rgnt auto w/o microscopy Jerrell Velez DO Work Phone: Start: 12-27-2020 ABO, EXTERNAL RESULT Donte Botello MD Start: 12-27-2020 C. TRACHOMATIS, EXTE RNAL RESULT Historical Provider Start: 12-27-2020 HEPATITIS B, EXTERNA L RESULT Historical Provider Start: 12-27-2020 HIV, EXTERNAL RESULT Donte Botello MD Start: 12-27-2020 N. GONORRHOEAE, EXTE RNAL RESULT Historical Provider Start: 12-27-2020 RH FACTOR, EXTERNAL RESULT Historical Provider Start: 12-27-2020 RPR, EXTERNAL RESULT Donte pedro Provider Start: 12-27-2020 RUBELLA TITER, EXTER NAL [...] of 2) Zoster Vaccines (1 of 2) [facility] Start: 08-04-2031 DTaP/Tdap/Td Vaccines (3 - Td or Tdap) DTaP/Tdap/Td Vaccines (3 - Td or Tdap) [facility] Start: 08-05-2023 Bacteria identified in Genital specimen by Aerobe culture [facility] Start: 08-05-2023 Trichomonas vaginalis detection [facility] Start: 08-05-2023 End: 08-05-2023 [facility] Start: 03-31-2023 End: 03-31-2023 Patient encounter procedure 03/31/2023 11:00 AM EST Office Visit [facility] [address] [place] [address] Regi Hutner PA-C [address] Department [place] [address] [facility] Start: 03-24-2023 End: 03-24-2023 Fracture nasal inferior [...] Start: 12-27-2022 Influenza vaccination Influenza Vaccine (#1) [facility] Start: 12-27-2020 Influenza vaccination Flu vaccine (#1) [facility] Start: 2016 DTaP/Tdap/Td Vaccines (1 - Tdap) DTaP/Tdap/Td Vaccines (1 - Tdap) [facility] Start: 11-03-2015 Screening for malignant neoplasm of cervix [facility] Start: 2012 Hepatitis C screening Hepatitis C Screening [facility] Start: 11-03-1999 COVID-19 Vaccine (1) COVID-19 Vaccine (1) [facility] Start: 11-03-1995 MMR Vaccines (1 of 1 - Standard series) MMR Vaccines (1 of 1 - Standard series) [facility] Start: 11-03-1995 Varicella vaccination Varicella Vaccines (1 of 2 - 2-dose childhood series) [facility] Start: 05-05-1995 COVID-19 Vaccine (#1) COVID-19 Vaccine (#1) [facility] Start: 1994 Hepatitis B Vaccines (1 of 3 - 3-dose series) Hepatitis B Vaccines (1 of 3 - 3-dose series) [facility] Start: 1994 HIV screening HIV Screening [facility] Start: 1994 Lipid panel Lipid Panel [facility] Start: 1994 Yearly Adult Physical Yearly Adult Physical [facility] Albumin/Globulin ratio [facility] Anion gap measurement [facility] Basophils [#/volume] in Blood by Automated count [facility] Basophils/100 leukoc ytes in Blood by Automated count [facility] End: 03-24-2023 Choriogonadotropin ( test) [Presence] in Urine [facility] Work Phone: Comment on above: Once (Lab) for 1 Occurrences starting until 03/24/2023 Eosinophils/100 leuk ocytes in Blood by Automated count [facility] Erythrocyte distribu tion width [Ratio] by Automated count [facility] Erythrocytes [#/volu me] in Blood [facility] nonstress test nonst ress test OB Routine Daily until discontinued starting 07/19/2021 [facility] Work Phone: Comment on above: Daily until discontinued starting 2021 Globulin [Mass/volum e] in Serum [facility] Glucose [Mass/volume ] in Serum or Plasma POCT GLUCOSE Point of Care Testing Routine 4X Daily until discontinued starting 07/20/2021 [employer] (?) Work Phone: Comment on above: 4X Daily until discontinued starting Glucose [Mass/volume ] in Serum or Plasma POCT Glucose Point of Care Testing - Docked Device Routine As needed (Lab) until discontinued starting 03/24/2023 [facility] Service Area Work Phone: Comment on above: As needed (Lab) until discontinued start ing 03/24/2023 Group B Strep, PCR Group B Strep , PCR Microbiology Routine 07/19/2021 2:48 AM EDT [facility] Work Phone: Hematocrit [Volume Fraction] of Blood [facility] Hemoglobin [Mass/vol ume] in Blood [facility] Leukocytes [#/volume ] corrected for nucleated erythrocytes in Blood by Automated coun [facility] Leukocytes [#/volume ] in Blood [facility] Lymphocytes [#/volum e] in Blood by Automated count [facility] Lymphocytes/100 leuk ocytes in Blood by Automated count [facility] MCH [Entitic mass] b y Automated count [facility] MCHC [Mass/volume] b y Automated count [facility] MCV [Entitic volume] by Automated count [facility] Monocytes [#/volume] in Blood by Automated count [facility] Monocytes/100 leukoc ytes in Blood by Automated count [facility] Neutrophils [#/volum e] in Blood by Automated count [facility] Neutrophils/100 leuk ocytes in Blood by Automated count [facility] Nonrebreather mask oxygen Nonreb reather mask oxygen Respiratory Care Routine As directed - RT (PRN) until discontinued starting 07/19/2021 [facility] Work Phone: Comment on above: As directed - RT (PRN) until discontinue d starting 07/19/2021 Nucleated erythrocyt es [Presence] in Blood by Automated count [facility] Oxygen therapy [Mini mum Data Set] Initiate Oxygen Therapy Protocol while on epidural Respiratory Care Routine As Needed until discontinued starting 07/19/2021 [facility] Work Phone: Comment on above: As Needed until discontinued starting Patient Education [facility] Work Phone: Patient referral [facility] Work Phone: Platelet mean volume [Entitic volume] in Blood by Automated count [facility] Platelets [#/volume] in Blood [facility] TYPE AND SCREEN TYPE AND SCREEN Blood Bank Routine Every Third Day until discontinued starting 07/19/2021, 1 completed [facility] Work Phone: Comment on above: Every Third Day until discontinued start ing 07/19/2021, 1 completed Immunizations Immunization Date Immunization Notes Care Provider Ximena diehl 08-03-2021 tetanus toxoid, reduced diphtheria toxoid, and acellular pertussis vaccine, adsorbed; Translations: [Boostrix (Tdap)] Miguel Angel Shiela [facility] Comment on above: Reason for Medicatio n: Other (see comment) 08-11-2016 tetanus toxoid, reduced diphtheria toxoid, and acellular pertussis vaccine, adsorbed Miguel Angel Shiela [facility] Comment on above: Reason for Medicatio n: Other (see comment) NEGATED: Highlighted row has not occurred!06-26-2022 influenza virus vaccine, unspecified formulation Geovany Ramirez [facility] NEGATED: Highlighted row has not occurred!06-26-2022 SARS-CoV-2 mRNA (tozinamaly 5y-11y) vaccine Geovany Ramirez [facility] Payers Date Payer Category Payer Self-pay 2021 Unknown [facility] [id number] 2021-Present P Stephen Chavez [address] [place] [address] [id number] 2021 Unknown [id number] 1994 Unknown [id number] 2.16.840.1.464222.3.579.2.5 1994 Unknown [id number] 2.16.840.1.712733.3.579.2.1244 1994 Unknown [id number] 2.16.840.1.464035.3.579.2.1244 1994 Unknown [id number] 2.16.840.1.634545.3.579.2.1244 1994 Unknown [id number] 2.16.840.1.276171.3.579.2.9 1994 Unknown [id number] 2.16.840.1.161260.3.579.2.1259 1994 Unknown [id number] 2.16.840.1.247879.3.579.2.1259 1994 Unknown [id number] 2.16.840.1.560327.3.579.2.1259 1994 Unknown [id number] 2.16.840.1.339594.3.579.2.174 1994 Unknown [id number] 2.16.840.1.422110.3.579.2.727 1994 Unknown [id number] 2.16.840.1.660932.3.579.2. 1994 Unknown [id number] 2.840.1.063150.3.579.2 1994 Unknown [id number] 2.840.1.302229.3.579.2 1994 Unknown [id number] 2.16840.1.362167.3.579.2 1994 Unknown [id number] 2.840.1.366688.3.579.2 1994 Unknown [id number] 2.840.1.009929.3.579.2 1994 Unknown [id number] 2.840.1.512632.3.579.2 1994 Unknown [id number] 2.840.1.296772.3.579.2 1994 Unknown [id number] 2.840.1.460202.3.579.2 1994 Unknown [id number] 2.840.1.845021.3.579.2 1994 Unknown [id number] .840.1.036314.3.579.2 1994 Unknown [id number] 2.840.1.653502.3.579.2 1994 Unknown [id number] .840.1.770177.3.579.2 1994 Unknown [id number] 2.840.1.633345.3.579.2 1994 Unknown [id number] 2.840.1.829955.3.579.2 1994 Unknown [id number] 2.840.1.620354.3.579.2 1994 Unknown [id number] 2.840.1.761585.3.579.2 1994 Unknown [id number] 2.16.840.1.735720.3.579.2 1994 Unknown [id number] 2.16.840.1.543073.3.579.2 1994 Unknown [id number] 2.16.840.1.192380.3.579.2 1994 Unknown [id number] 2.16.840.1.052249.3.579.2 1994 Unknown [id number] 2.16.840.1.671379.3.579.2 1994 Unknown [id number] 2.16840.1.537633.3.579.2 1994 Unknown [id number] 2.16840.1.894231.3.579.2 1994 Unknown [id number] 2.16840.1.477120.3.579.2 1994 Unknown [id number] 2.16840.1.316242.3.579.2 1994 Unknown [id number] 2.16840.1.104701.3.579.2 1994 Unknown [id number] 2.16840.1.223954.3.579.2 1994 Unknown [id number] 2.16840.1.782787.3.579.2 1994 Unknown [id number] 2.16.840.1.051217.3.579.2 1994 Unknown [id number] 2.16.840.1.250482.3.579.2 1994 Unknown [id number] 2.16.840.1.973031.3.579.2 1994 Unknown [id number] 2.16840.1.449082.3.579.2. 1994 Unknown [id number] 2.840.1.149183.3.579.2 1994 Unknown [id number] 2.16840.1.286668.3.579.2 1994 Unknown [id number] 2.840.1.977915.3.579.2 1994 Unknown [id number] 2.840.1.275323.3.579.2 1994 Unknown [id number] 2.840.1.029804.3.579.2 1994 Unknown [id number] 2.840.1.874047.3.579.2 1994 Unknown [id number] 2.0.1.507753.3.579.2 1994 Unknown [id number] 2.840.1.205399.3.579.2 1994 Unknown [id number] 2.840.1.960692.3.579.2 1994 Unknown [id number] 2.840.1.477928.3.579.2 1994 Unknown [id number] 2.840.1.986249.3.579.2 1994 Unknown [id number] 2.840.1.234776.3.579.2 1994 Unknown [id number] 2.840.1.478496.3.579.2 1994 Unknown [id number] 2.840.1.341396.3.579.2 1994 Unknown [id number] 2.840.1.889283.3.579.2 1994 Unknown [id number] 2.16840.1.110124.3.579.2. 1994 Unknown [id number] 2.16840.1.439266.3.579.2 1994 Unknown [id number] 2.16840.1.812876.3.579.2 1994 Unknown [id number] 2.16840.1.481546.3.579.2 1994 Unknown [id number] 2.16.840.1.119585.3.579.2 1994 Unknown [id number] .16840.1.126631.3.579.2 1994 Unknown [id number] .840.1.268960.3.579.2 1994 Unknown [id number] .840.1.073722.3.579.2 1994 Unknown [id number] 2.840.1.887343.3.579.2 1994 Unknown [id number] 2.840.1.239128.3.579.2 1994 Unknown [id number] .840.1.842057.3.579.2 1994 Unknown [id number] 2840.1.353865.3.579.2 1994 Unknown [id number] 2.16840.1.660605.3.579.2 1994 Unknown [id number] 2.840.1.904838.3.579.2 1994 Unknown [id number] 2.16840.1.465500.3.579.2. Medicaid [employer] [facility] [id number] Unknown [id number] 2.16.840.1.468934.3.579.2.531 Unknown [id number] 2.16.840.1.772381.3.579.2.531 Unknown [id number] 2.16.840.1.483171.3.579.2.531 Unknown [id number] 2.16.840.1.467074.3.579.2.531 Unknown [id number] 2.16.840.1.549076.3.579.2.531 Social History Date Type Detail Facility Start: 07-19-2021 End: 11-24-2023 Tobacco smoking status NHIS Never smoked tobacco [facility] Work Phone: Comment on above: Denies. Start: 07-19-2021 End: 03-07-2023 Tobacco use and exposure Smokeless tobacco non-user [facility] Work Phone: Start: 07-19-2021 Alcohol intake Ex-drinker (finding) [facility] Work Phone: Start: 1995 Sex Assigned At Not on file S [facility] Work Phone: Start: 07-09-2021 End: 03-24-2023 Exposure to SARS-CoV-2 (event) Not sure [facility] Work Phone: Start: 02-06-2023 End: 03-31-2023 Sex Assigned At Female [facility] Tobacco [facility] Comment on above: denies Denies. Tobacco smoking status Never [facility] Comment on above: Denies. Start: 02-06-2023 End: 03-31-2023 History of Social function [facility] Work Phone: Start: 1995 Sex Assigned At Female [facility] Start: 01-22-2023 Gender identity Identifies as female gender (finding) [facility] Work Phone: Start: 01-22-2023 Sexual orientation Heterosexual (fin ding) [facility] Work Phone: Start: 03-24-2023 End: 03-31-2023 Alcohol intake Lifetime non-drinker (finding) [facility] Work Phone: Tobacco smoking status No Smoking Status Entered [facility] Start: 08-05-2023 End: 09-27-2023 Tobacco smoking status NHIS Ex-smoker (finding) [facility] NEGATED: Highlighted row [facility] Functional Status Date Assessment Result Facility 11-29-2023 Functional Status N/A [facility] 11-26-2023 Functional Status N/A [facility] 11-24-2023 Functional Status No [facility] 11-05-2023 Functional Status N/A [facility] 2023 Functional Status N/A [facility] 11-01-2023 Functional Status N/A [facility] 10-31-2023 Functional Status N/A [facility] 10-30-2023 Functional Status N/A [facility] 10-25-2023 Functional Status N/A [facility] 10-21-2023 Functional Status N/A [facility] 10-19-2023 Functional Status N/A [facility] 10-17-2023 Functional Status N/A [facility] 10-05-2023 Functional Status N/A [facility] 10-02-2023 Functional Status N/A [facility] 09-27-2023 Functional Status N/A [facility] 09-26-2023 Functional Status N/A [facility] 09-24-2023 Functional Status N/A [facility] 09-20-2023 Functional Status N/A [facility] 09-17-2023 Functional Status N/A [facility] 09-15-2023 Functional Status No [facility] 09-14-2023 Functional Status N/A [facility] 08-18-2023 Functional Status N/A [facility] 08-14-2023 Functional Status N/A [facility] 08-10-2023 Functional Status N/A [facility] 07-30-2023 Functional Status N/A [facility] 07-26-2023 Functional Status N/A [facility] 07-19-2023 Functional Status N/A [facility] 07-12-2023 Functional Status N/A [facility] 07-09-2023 Functional Status N/A [facility] 07-07-2023 Functional Status N/A [facility] 07-07-2023 Functional Status N/A [facility] 06-29-2023 Functional Status N/A [facility] 06-14-2023 Functional Status N/A [facility] 05-31-2023 Functional Status N/A [facility] 05-11-2023 Functional Status N/A [facility] 05-03-2023 Functional Status N/A [facility] 04-15-2023 Functional Status N/A [facility] 03-30-2023 Functional Status N/A [facility] 03-11-2023 Functional Status N/A [facility] 01-24-2023 Functional Status N/A [facility] 01-15-2023 Functional Status N/A [facility] 11-09-2022 Functional Status N/A [facility] 07-03-2022 Functional Status N/A [facility] 06-26-2022 Functional Status N/A [facility] Clinical Notes 07-20-2021 to 11-29-2023 Note Date & Type Note Facility 11-29-2023 Evaluation + Plan note Extrac rosy from: Title:ED Note Author:Justo Arias DO Date:11/28 Chronic pain (G89.29: Other chronic pain) Orders: diflunisal, 500 mg = 1 tab(s), Oral, q12hr, # 20 tab(s), Refills(s) 0, [id number], cm, 11/29/23 6:47:00 EDT, Height/Length Dosing, 60.8, kg, 11/29/23 6:47:00 EDT, Weight Dosing methocarbamol, 750 mg = 1 tab(s), Oral, TID, X 7 day(s), # 21 tab(s), Refills(s) 0, Pharmacy: [facility]/pharmacy #[id number], 160, cm, 11/29/23 6:47:00 EDT, Height/Length Dosing, 60.8, kg, 11/29/23 6:47:00 EDT, Weight Dosing [facility] 08-03-2024 Hospital Discharge instructions Follow Up Care 11/29/2023 06:38:59 With:Cristóbal Granados Address: [address] [place] [id number]- Business (1) When:12/02/2023 07:19:50 With:Lorri Ireland Address: [address], [address] [place] [address]- Business (1) When:Within 3 Day(s) [facility] 07-31-2024 Hospital Discharge instructions Patient Education 11/26/2023 11:40:26 Tendinitis Tendinitis Tendinitis is inflammation of a tendon. A tendon is a strong cord of tissue that connects muscle tobone. Tendinitis can affect any tendon, but it most commonly affects the: Shoulder tendon (biceps tendon or rotator cuff). Ankle tendon (Achilles tendon). Elbow tendons. Tendons in the wrist. What are the causes? This condition may be caused by: Overusing a tendon or muscle. This is the most common cause. Age-related wear and tear. Injury. Inflammatory conditions, such as arthritis. Certain medicines. What increases the risk? You are more likely to develop this condition if you do activities that involve the same movements over and over again (repetitive motions). What are the signs or symptoms? Symptoms of this condition may include: Pain. Tenderness. Mild swelling. Decreased range of motion. How is this diagnosed? This condition is diagnosed with a physical exam. You may also have tests, such as: Ultrasound. This uses sound waves to make an image of the inside of your body in the affected area. MRI. This uses magnetic dickens and radio waves to make an image of the inside of your body in the affected area. How is this treated? This condition may be treated by resting, icing, applying pressure (compression), and raising (elevating) the affected area above the level of your heart. This is known as RICE therapy. Treatment mayalso include: Medicines to help reduce inflammation or to help reduce pain. Exercises or physical therapy to improve movement and strength of the tendon. A brace or splint. Injection of corticosteroid medicine. This may be done in some cases. Surgery. This is rarely needed and only used if all other treatment has failed. Follow these instructions at home: If you have a removable splint or brace: Wear the splint or brace as told by your health care provider. Remove it only as told by your health care provider. Check the skin around the splint or brace every day. Tell your health care provider about any concerns. Loosen the splint or brace if your fingers or toes tingle, become numb, or turn cold and blue. Keep the splint or brace clean. If the splint or brace is not waterproof: ?Do not let it get wet. ?Cover it with a watertight covering when you take a bath or shower, or remove it as told by your health care provider. Managing pain, stiffness, and swelling If directed, put ice on the affected area. To do this: ?If you have a removable splint or brace, remove it as told by your health care provider. ?Put ice in a plastic bag. ?Place a towel between your skin and the bag. ?Leave the ice on for 20 minutes, 2 3 times a day. ?Remove the ice if your skin turns bright red. This is very important. If you cannot feel pain, heat, or cold, you have a greater risk of damage to the area. Move the fingers or toes of the affected limb often, if this applies. This can help to reduce stiffness and swelling. If directed, elevate the affected area above the level of your heart while you are sitting or lyingdown. If directed, apply heat to the affected area before you exercise. Use the heat source that your health care provider recommends, [...] greater risk of getting burned. Activity Rest the affected area as told by your health care provider. Ask your health care provider when it is safe to drive if you have a splint or brace on any part ofyour arm or leg. Return to your normal activities as told by your health care provider. Ask your health care provider what activities are safe for you. Avoid using the affected area while you are experiencing symptoms of tendinitis. Do exercises as told by your health care provider. General instructions Wear an elastic bandage or compression wrap only as told by your health care provider. Take usqj-ths-chihusl and prescription medicines only as told by your health care provider. Keep all follow-up visits. This is important. Contact a health care provider if: Your symptoms do not improve. You develop new, unexplained problems, such as numbness in your hands or feet. Summary Tendinitis is inflammation of a tendon. You are more likely to develop this condition if you do activities that involve the same movements over and over again. This condition may be treated by resting, icing, applying pressure (compression), and elevating thearea above the level of your heart. This is known as RICE therapy. Avoid using the affected area while you are experiencing symptoms of tendinitis. This information is not intended to replace advice given to you by your health care provider. Make sure you discuss any questions you have with your health care provider. Document Revised: 12/20/2021 Document Reviewed: 12/20/2021 [employer] Patient Education 2022 [employer]. 11/26/2023 11:40:26 Wrist Pain, Adult, Qluq-yt-Colk Wrist Pain, Adult There are many things that can cause wrist pain. Some common causes include: An injury to the wrist. Using the joint too much. A condition that causes too much pressure to be put on a nerve in the wrist (carpal tunnel syndrome). Wear and tear of the joints that happens as a person gets older (osteoarthritis). A condition that causes swelling and stiffness in the joints (arthritis). Sometimes, the cause of wrist pain is not known. Often, the pain goes away when you follow your doctor's instructions for easing pain at home. This may include resting your wrist, icing your wrist, or using a splint or an elastic wrap for a short time. It is important to tell your doctor if your wrist pain does not go away. Follow these instructions at home: If you have a splint or elastic wrap: Wear the splint or wrap as told by your doctor. Take it off only as told by your doctor. Ask if youcan take it off for bathing. Loosen the splint or wrap if your fingers: ?Tingle. ?Become numb. ?Turn cold and blue. Check the skin around the splint or wrap every day. Tell your doctor about any concerns. Keep the splint or wrap clean. If the splint or wrap is not waterproof: ?Do not let it get wet. ?Cover it with a watertight covering when you take a bath or shower. Managing pain, stiffness, and swelling If told, put ice on the painful area. To do this: ?If you have a removable splint or wrap, take it off as told by your doctor. ?Put ice in a plastic bag. ?Place a towel between your skin and the bag or between your splint or wrap and the bag. ?Leave the ice on for 20 minutes, 2 3 times a day. Move your fingers often. Raise (elevate) the injured area above the level of your heart while you are sitting or lying down. Activity Rest your wrist as told by your doctor. Return to your normal activities as told by your doctor. Ask your doctor what activities are safe for you. Ask your doctor when it is safe to drive if you have a splint or wrap on your wrist. Do exercises as told by your doctor. General instructions Pay attention to any changes in your symptoms. Take niir-apc-okwneaf and prescription medicines only as told by your doctor. Keep all follow-up visits as told by your doctor. This is important. Contact a doctor if: You have a sudden, sharp pain in the wrist, hand, or arm that is different or new. The swelling or bruising on your wrist or hand gets worse. Your skin: ?Becomes red. ?Gets a rash. ?Has open sores. Your pain does not get better. Your pain gets worse. You have a fever or chills. Get help right away if: You lose feeling in your fingers or hand. Your fingers turn white, very red, or cold and blue. You cannot move your fingers. Summary There are many things that can cause wrist pain. It is important to tell your doctor if your wrist pain does not go away. You may need to wear a splint or a wrap for a short period of time. Return to your normal activities as told by your doctor. Ask your doctor what activities are safe for you. This information is not intended to replace advice given to you by your health care provider. Make sure you discuss any questions you have with your health care provider. Document Revised: 03/02/2020 Document Reviewed: 03/02/2020 [employer] Patient Education 2022 [employer]. Follow Up Care 11/26/2023 10:20:14 With:Lorri Ireland Address: [address] [place] [address], [address] [facility] [place] (1) When:11/29/2023 11:25:22 Comments:Call Dr for diagnosis based follow up [facility] 07-31-2024 NoteED Patient Education Note Orthopedics Tendinitis Tendinitis is inflammation of a tendon. A tendon is a strong cord of tissue that connects muscle tobone. Tendinitis can affect any tendon, but it most commonly affects the: ? Shoulder tendon (biceps tendon or rotator cuff). ? Ankle tendon (Achilles tendon). ? Elbow tendons. ? Tendons in the wrist. What are the causes? This condition may be caused by: ? Overusing a tendon or muscle. This is the most common cause. ? Age-related wear and tear. ? Injury. ? Inflammatory conditions, such as arthritis. ? Certain medicines. What increases the risk? You are more likely to develop this condition if you do activities that involve the same movements over and over again (repetitive motions). What are the signs or symptoms? Symptoms of this condition may include: ? Pain. ? Tenderness. ? Mild swelling. ? Decreased range of motion. How is this diagnosed? This condition is diagnosed with a physical exam. You may also have tests, such as: ? Ultrasound. This uses sound waves to make an image of the inside of your body in the affected area. ? MRI. This uses magnetic dickens and radio waves to make an image of the inside of your body in theaffected area. How is this treated? This condition may be treated by resting, icing, applying pressure (compression), and raising (elevating) the affected area above the level of your heart. This is known as RICE therapy. Treatment mayalso include: ? Medicines to help reduce inflammation or to help reduce pain. ? Exercises or physical therapy to improve movement and strength of the tendon. ? A brace or splint. ? Injection of corticosteroid medicine. This may be done in some cases. ? Surgery. This is rarely needed and only used if all other treatment has failed. Follow these instructions at home: If you have a removable splint or brace: ? Wear the splint or brace as told by your health care provider. Remove it only as told by your health care provider. ? Check the skin around the splint or brace every day. Tell your health care provider about any concerns. ? Loosen the splint or brace if your fingers or toes tingle, become numb, or turn cold and blue. ? Keep the splint or brace clean. ? If the splint or brace is not waterproof: ? Do not let it get wet. ? Cover it with a watertight covering when you take a bath or shower, or remove it as told by your health care provider. Managing pain, stiffness, and swelling ? If directed, put ice on the affected area. To do this: ? If you have a removable splint or brace, remove it as told by your health care provider. ? Put ice in a plastic bag. ? Place a towel between your skin and the bag. ? Leave the ice on for 20 minutes, 2?3 times a day. ? Remove the ice if your skin turns bright red. This is very important. If you cannot feel pain, heat, or cold, you have a greater risk of damage to the area. ? Move the fingers or toes of the affected limb often, if this applies. This can help to reduce stiffness and swelling. ? If directed, elevate the affected area above the level of your heart while you are sitting or lying down. ? If directed, apply heat to the affected area before you exercise. Use the heat source that your health care provider recommends, such as a moist heat pack or a heating pad. ? Place a towel between your skin and the heat source. ? Leave the heat on for 20?30 minutes. ? Remove the heat if your skin turns bright red. This is especially important if you are unable to feel pain, heat, or cold. You have a greater risk of getting burned. Activity ? Rest the affected area as told by your health care provider. ? Ask your health care provider when it is safe to drive if you have a splint or brace on any part of your arm or leg. ? Return to your normal activities as told by your health care provider. Ask your health care provider what activities are safe for you. ? Avoid using the affected area while you are experiencing symptoms of tendinitis. ? Do exercises as told by your health care provider. General instructions ? Wear an elastic bandage or compression wrap only as told by your health care provider. ? Take mtlf-obv-pzntixq and prescription medicines only as told by your health care provider. ? Keep all follow-up visits. This is important. Contact a health care provider if: ? Your symptoms do not improve. ? You develop new, unexplained problems, such as numbness in your hands or feet. Summary ? Tendinitis is inflammation of a tendon. ? You are more likely to develop this condition if you do activities that involve the same movements over and over again. ? This condition may be treated by resting, icing, applying pressure (compression), and elevating the area above the level of your heart. This is known as RICE therapy. ? Avoid using the (more content not included)...[facility] 11-24-2023 Hospital Discharge instructions Patient Education 11/24/2023 13:14:00 Chronic Pain, [...] Follow these instructions at home: Medicines Take kecx-vtc-vucqxbx and prescription medicines only as told by your health care provider. Ask your health care provider if the medicine prescribed to you: ?Requires you to avoid driving or using machinery. ?Can cause constipation. You may need to take these actions to prevent or treat constipation: ?Drink enough fluid to keep your urine pale yellow. ?Take sknf-eyq-iucrmjb or prescription medicines. ?Eat foods that are [...] department or: Call your local emergency services (340 in the [place] Call a suicide crisis helpline, such as the National Suicide Prevention Lifeline at or 462 in the [place] This is open 24 hours a day in the [place] Text the Crisis Text Line at 869836 (in the [place] Summary Chronic pain is [...] provider. Document Revised: 08/29/2022 Document Reviewed: 12/30/2019 [employer] Patient Education 2022 [employer] Follow Up Care 11/24/2023 11:46:58 With:Lorri Ireland Address: [address] [place] [address], [address] [place] [address]- Business (1) When:Within 3 Day(s) [facility] 07-29-2024 Evaluation + Plan noteExtracted from: Title:ED Note Author:Wan RUIZ Student, Vel Bravo Date:11/24/23 Chronic pelvic pain in femal e (R10.2: Pelvic and perineal pain) Other chronic pain (G89.29: Other chronic pain) Ordered: tramadol, 50 mg = 1 tab(s), Oral, q8hr, X 3 day(s), # 9 tab(s), Refills(s) 0, Pharmacy: [facility]/pharmacy #[id number], 160, cm, 11/24/23 11:59:00 EDT, Height/Length Dosing, 62, kg, 11/24/23 11:59:00 EDT, Weight Dosing Orders: naproxen, 500 mg = 1 tab(s), Oral, BID, Take one tab by mouth two times a day, # 14 tab(s), Refills(s) 0, Pharmacy: [facility]/pharmacy #[id number], 160, cm, 11/24/23 11:59:00 EDT, Height/Length Dosing, 62, kg, 11/24/23 11:59:00 EDT, Weight Dosing Future Appointments Appointment Date:11/27/2023 08:15:00 AM Scheduled Provider:Cristóbal Granados DO Location:.[facility] Appointment Type:Pain Management - New (FT) [facility] 07-29-2024 NoteED Patient Education Note Mental and [...] these instructions at home: Medicines ? Take lkvw-fxj-jpeubsl and prescription medicines only as told by your health care provider. ? Ask your health care provider if the medicine prescribed to you: ? Requires you to avoid driving or using machinery. ? Can cause constipation. You may need to take these actions to prevent or treat constipation: ? Drink enough fluid to keep your urine pale yellow. ? Take ohcd-fyp-vduikrn or prescription medicines. ? Eat foods that [...] were done. Ask your health care provider, [facility], when [...] or: ? Call your local emergency services (051 in the [place] ? Call a suicide crisis helpline, such as the National Suicide Prevention Lifeline at or 827 in the [place] This is open 24 hours a day in the [place] ? Text the Crisis Text Line at 118745 (in the [place] Summary ? Chronic pain is a type of pain that lasts or keeps coming back for at least 3?6 months. ? Chronic pain may be related to an illness, injury, or other health condition. Sometimes, the cause of chronic pain is not known. ? Treatment depends on the cause and (more content not included)...[facility]07-10-2024 Evaluation + Plan noteExtracted from: Title:ED Note [...] Date:11/17/2023 01:45:00 PM Scheduled Provider:Cristóbal Granados DO Location:.[facility] Appointment Type:Pain Management - New (FT) Appointment Date:11/24/2023 11:00:00 AM Scheduled Provider:Fatoumata Gooden MD [facility] Appointment Type:Vascular Follow Up (FT) [facility]07-10-2024 Hospital Discharge instructions Patient Education [...] Follow these instructions at home: Medicines Take xlad-gbu-eyymxvn and prescription medicines only as told by [...] Watch your condition for any changes. Take rpxj-cob-ihagsma and prescription medicines only as told by [...] provider. Document Revised: 06/02/2020 Document Reviewed: 08/23/2019 [employer] Patient Education 2022 [employer]. 11/05/2023 08:48:44 Chronic Pain, Adult Chronic Pain, [...] Follow these instructions at home: Medicines Take lnnf-upm-ebuwhzf and prescription medicines only as told by your health care provider. Ask your health care provider if the medicine prescribed to you: ?Requires you to avoid driving or using machinery. ?Can cause constipation. You may need to take these actions to prevent or treat constipation: ?Drink enough fluid to keep your urine pale yellow. ?Take dpuq-mft-qxmocbd or prescription medicines. ?Eat foods that are [...] department or: Call your local emergency services (092 in the [place] Call a suicide crisis helpline, such as the National Suicide Prevention Lifeline at or 282 in the [place] This is open 24 hours a day in the [place] Text the Crisis Text Line at 588965 (in the [place] Summary Chronic pain is [...] provider. Document Revised: 08/29/2022 Document Reviewed: 12/30/2019 [employer] Patient Education 2022 [employer]. Follow Up Care 11/04/2023 23:46:14 With:Lorri Ireland Address: [address] [place] [address], [address] [place] [address] [facility] [place] (1) When:11/08/2023 08:47:56 Comments:Call the office of [...] weakness, or any new or worsening symptoms. [facility]07-10-2024 NoteED Patient Education Note Gastroenterology [...] these instructions at home: Medicines ? Take fmxl-rdy-bgogpsw and prescription medicines only as told by [...] your condition for any changes. ? Take zrks-fck-lgqnznc and prescription medicines only as told by [...] provider. Document Revised: 06/02/2020 Document Reviewed: 08/23/2019 [employer] Patient Education ? 2022 [employer] Mental and Behavioral Health Chronic Pain, [...] these instructions at home: Medicines ? Take setn-jwr-ipxwyuo and prescription medicines only as told by your health care provider. ? Ask your health care provider if the medicine prescribed to you: ? Requires you to avoid driving or using machinery. ? Can cause constipation. You may need to take these actions to prevent or treat constipation: ? Drink enough fluid to keep your urine pale yellow. ? Take nlbs-kqh-dnczqvz or prescription medicines. ? Eat foods that [...] the nerve impulses anne (more content not included)...[facility]07-06-2024 Hospital Discharge instructions Patient Education 11/01/2023 20:06:00 [...] Follow these instructions at home: Medicines Take snxd-pxh-vyhtdle and prescription medicines only as told by [...] Watch your condition for any changes. Take khtz-tew-joconqs and prescription medicines only as told by [...] provider. Document Revised: 06/02/2020 Document Reviewed: 08/23/2019 [employer] Patient Education 2022 [employer]. Follow Up Care 11/01/2023 19:35:13 With:Fatoumata Gooden Address: [address] [place] [address] [place] [address] Business (1) When:11/04/2023 19:56:58 With:Lorri Ireland Address: [address] [place] [address], [address] [place] [phone] Business (1) When:Within 3 Day(s) [facility]07-06-2024 NoteED Patient Education Note Gastroenterology [...] these instructions at home: Medicines ? Take gxtd-mlj-ejyouzz and prescription medicines only as told by [...] your condition for any changes. ? Take iftz-ajy-fpjauzc and prescription medicines only as told by [...] provider. Document Revised: 06/02/2020 Document Reviewed: 08/23/2019 [employer] Patient Education ? 2022 [employer].[facility] 11-01-2023 Evaluation + Plan noteExtracted from: Title:ED Note Author:Bruno Jara DO Date :11/01/23 AP (abdominal pain) (R10.9: Unspecified abdominal pain) Orders: tramadol, 200 mg = 4 tab(s), Tab, Oral, Once, Stop date 11/01/23 19:55:00 EDT, STAT, Start date 11/01/23 19:55:00 EDT, 11/01/23 19:55:00 EDT Future Appointments Appointment Date:11/03/2023 10:45:00 AM Scheduled Provider:Bon DC, Fatoumata Kelsey Location[facility] Appointment Type:Vascular Follow Up (FT) Appointment Date:11/17/2023 01:45:00 PM Scheduled Provider:Cristóbal Granados DO Location:.[facility] Appointment Type:Pain Management - New (FT) [facility]07-05-2024 Hospital Discharge instructions Patient Education 10/31/2023 13:48:32 Abdominal Pain, Adult, Ixnx-dx-Ivzq Abdominal Pain, Adult Many things can cause belly (abdominal) pain. Most times, belly pain is not dangerous. Many cases of belly pain can be watched and treated at home. Sometimes, though, belly pain is serious. Your doctor will try to find the cause of your belly pain. Follow these instructions at home: Medicines Take kmmk-yfy-qqfruwb and prescription medicines only as told by [...] your belly pain for any changes. Take tmzp-onw-iospcax and prescription medicines only as told by [...] provider. Document Revised: 08/23/2019 Document Reviewed: 08/23/2019 [employer] Patient Education 2022 [employer]. Follow Up Care 10/31/2023 12:39:27 With:Follow-up with Dr. Gooden and pain management as scheduled. Address:Unknown When:11/03/2023 13:48:25 With:Lorri Ireland Address: [address] [place] [address], [address] [place] [address]- Business (1) When:Within 3 Day(s) [facility]07-05-2024 NoteED Patient Education Note Gastroenterology Abdominal Pain, Adult Many things can cause belly (abdominal) pain. Most times, belly pain is not dangerous. Many cases of belly pain can be watched and treated at home. Sometimes, though, belly pain is serious. Your doctor will try to find the cause of your belly pain. Follow these instructions at home: Medicines ? Take cayj-yji-mahomzy and prescription medicines only as told by [...] belly pain for any changes. ? Take douo-jwu-thafbyh and prescription medicines only as told by [...] provider. Document Revised: 08/23/2019 Document Reviewed: 08/23/2019 [employer] Patient Education ? 2022 [employer].[facility] 10-30-2023 Hospital Discharge instructions Patient Education 10/30/2023 [...] known. Follow these instructions at home: Take slbk-dmj-qdkiiuk and prescription medicines only as told by [...] provider. Document Revised: 08/21/2021 Document Reviewed: 08/21/2021 [employer] Patient Education 2022 [employer]. Follow Up Care 10/30/2023 16:05:01 With:Follow with Dr. Gooden and pain management as already scheduled Address:Unknown When: Unknown With:Lorri Ireland Address: [address] [place] [address], [address] [place] [phone] Business (1) When:Within 3 Day(s) [facility]07-04-2024 NoteED Patient Education Note Obstetrics [...] Follow these instructions at home: ? Take cpxx-plb-ymvuyed and prescription medicines only as told by [...] provider. Document Revised: 08/21/2021 Document Reviewed: 08/21/2021 [employer] Patient Education ? 2022 [employer].[facility] 10-30-2023 Evaluation + Plan noteExtracted from: Title:ED Note Author:Siomara Nettles PA-C Supa e:10/30/23 1. Chronic pain (G89.29: [facility] er chronic pain) Orders: ketorolac, 30 mg [...] 01:45:00 PM Scheduled Provider:Cristóbal Granados DO Location:.[facility] Appointment Type:Pain Management - New () [facility]06-29-2024 Hospital Discharge instructions Patient Education [...] Follow these instructions at home: Medicines Take hewx-nwk-fcexktb and prescription medicines only as told by your health care provider. Ask your health care provider if the medicine prescribed to you: ?Requires you to avoid driving or using machinery. ?Can cause constipation. You may need to take these actions to prevent or treat constipation: ?Drink enough fluid to keep your urine pale yellow. ?Take sfkn-ltq-mnawirv or prescription medicines. ?Eat foods that are [...] department or: Call your local emergency services (276 in the [place] Call a suicide crisis helpline, such as the National Suicide Prevention Lifeline at or 532 in the [place] This is open 24 hours a day in the [place] Text the Crisis Text Line at 043561 (in the [place] Summary Chronic pain is [...] provider. Document Revised: 08/29/2022 Document Reviewed: 12/30/2019 [employer] Patient Education 2022 [employer]. Follow Up Care 10/25/2023 13:29:29 With:Lorri Ireland Address: [address] [place] [address], [address] [place] [phone] Business (1) When:Within 3 Day(s) [facility]06-29-2024 NoteED Patient Education Note Mental [...] these instructions at home: Medicines ? Take kzgb-sja-zhsulbm and prescription medicines only as told by your health care provider. ? Ask your health care provider if the medicine prescribed to you: ? Requires you to avoid driving or using machinery. ? Can cause constipation. You may need to take these actions to prevent or treat constipation: ? Drink enough fluid to keep your urine pale yellow. ? Take ulhd-hoy-zeaexvd or prescription medicines. ? Eat foods that [...] were done. Ask [facility] care provider[facility], when [...] the National Suicide Prevention Lifeline at or 870 in the [place] This is open 24 hours a day in the [place] ? Text the Crisis Text Line at 686302 (in the [place] Summary ? Chronic pain is a type of pain that lasts or keeps coming back for at least 3?6 months. ? Chronic pain may be related to an illness, injury, or other health condition. Sometimes, the cause of chronic pain is not known. ? Treatment depends on the cause and (more content not included)...[facility]06-29-2024 Evaluation + Plan noteExtracted from: Title:ED Note Author:Hank LUKE, Ulisses Simmons te:10/25/23 Chronic pain in female pelvi s (R10.2: Pelvic and perineal pain) Other chronic pain (G89.29: Other chronic pain) Orders: tramadol, 50 mg = 1 tab(s), Oral, q6hr, PRN for pain, X 3 day(s), # 12 tab(s), Refills(s) 0, Pharmacy: [facility][id number], 160, cm, 10/25/23 13:44:00 EDT, Height/Length Dosing, 65, kg, 10/25/23 13:44:00 EDT, Weight Dosing tramadol, 50 mg = 1 tab(s), Oral, q6hr, PRN for pain, X 3 day(s), # 12 tab(s), Refills(s) 0, Pharmacy: [id number], 160, cm, 10/25/23 13:44:00 EDT, Height/Length Dosing, 65, kg, 10/25/23 13:44:00 EDT, Weight Dosing Future Appointments Appointment Date:11/03/2023 10:45:00 AM Scheduled Provider:Fatoumata Gooden MD Location[facility] Appointment Type:Vascular Follow Up (FT) [facility]06-25-2024 Hospital Discharge instructions Patient Education [...] known. Follow these instructions at home: Take tryl-nmt-khhmdhg and prescription medicines only as told by [...] provider. Document Revised: 08/21/2021 Document Reviewed: 08/21/2021 [employer] Patient Education 2022 [employer]. Follow Up Care 10/21/2023 18:15:22 With:Cristóbal Granados Address: [address] [place] [phone]- Business (1) When:10/24/2023 20:02:45 With:[facility] [phone] Address:Unknown When:10/24/2023 20:02:13 With:Lorri Ireland Address: [address] [place] [address], [address] [place] [address] Business (1) When:Within 3 Day(s) [facility]06-23-2024 Hospital Discharge instructions Follow Up Care 10/19/2023 12:42:32 With:Fatoumata Gooden Address: [address] [place] [phone]- Business (1) When:10/22/2023 13:57:04 With:Lorri Ireland Address: [address] [place] [address], [address] [place] [address]- Business (1) When:Within 3 Day(s) [facility]06-23-2024 Evaluation + Plan noteExtracted from: Title:ED Note Author:Ulisses Mckinney PA-C te:10/19/23 Chronic female pelvic pain ( R10.2: Pelvic and perineal pain) Other chronic pain (G89.29: Other chronic pain) Orders: ondansetron, 4 mg = 1 tab(s), Oral, q8hr, PRN Nausea/Vomiting, # 20 tab(s), Refills(s) 0, [id number], cm, 10/19/23 12:58:00 EDT, Height/Length Dosing, 65, kg, 10/19/23 12:58:00 EDT, Weight Dosing tramadol, 50 mg = 1 tab(s), Oral, q6hr, PRN for pain, X 3 day(s), # 10 tab(s), Refills(s) 0, [id number] 160, cm, 10/19/23 12:58:00 EDT, Height/Length Dosing, 65, kg, 10/19/23 12:58:00 EDT, Weight Dosing [facility]06-21-2024 Hospital Discharge instructions Patient Education 10/17/2023 18:49:44 Abdominal Pain, Adult, Kuhk-dp-Javj Abdominal Pain, Adult Many things can cause belly (abdominal) pain. Most times, belly pain is not dangerous. Many cases of belly pain can be watched and treated at home. Sometimes, though, belly pain is serious. Your doctor will try to find the cause of your belly pain. Follow these instructions at home: Medicines Take uvim-uea-ndlzqsj and prescription medicines only as told by [...] your belly pain for any changes. Take rdct-shk-svyzbcl and prescription medicines only as told by [...] provider. Document Revised: 08/23/2019 Document Reviewed: 08/23/2019 [employer] Patient Education 2022 [employer]. Follow Up Care 10/17/2023 17:14:00 With:Fatoumata Gooden Address: [address] [place] [phone]- Business (1) When:10/20/2023 18:49:28 Comments:Follow-up with Dr. Gooden for further management of care. With:Lorri Ireland Address: [address] [facility], [address] [place] [address]- Business (1) When:10/20/2023 18:48:43 [facility]06-09-2024 Hospital Discharge instructions Follow Up Care 10/05/2023 19:21:54 With:Lorri Ireland Address: [address] [place] [address], [address] Business (1) When:10/08/2023 20:32:53 Comments:Call Dr for diagnosis based follow up [facility]06-06-2024 Evaluation + Plan noteExtracted from: Title:ED Note Author:Don Vivian Date :10/02/23 Chronic abdominal pain (R10. 9: Unspecified abdominal pain) Other chronic pain (G89.29: Other chronic pain) Orders: U Beta Hcg Qual UA with Cult Rflx Addendum by Arpita Layton, As triosvaldo on October 02, 2023 09:13:47 EDT The care of the patient was transitioned to nc upon shift change to follow-up with urine [...] to follow-up with her primary doctor and [facility] [employer]. She is instructed to return to the emergency room if her pain gets worse or any new symptoms. [facility]06-06-2024 Hospital Discharge instructions Patient Education [...] Follow these instructions at home: Medicines Take ytak-rhx-kdebgih and prescription medicines only as told by [...] provider. Document Revised: 11/24/2020 Document Reviewed: 11/24/2020 [employer] Patient Education 2022 [employer]. 10/02/2023 07:48:34 Abdominal Pain, Adult Abdominal Pain, [...] Follow these instructions at home: Medicines Take pzjb-hvg-ksgsklk and prescription medicines only as told by [...] Watch your condition for any changes. Take dgvb-cbp-hrdpweq and prescription medicines only as told by [...] provider. Document Revised: 06/02/2020 Document Reviewed: 08/23/2019 [employer] Patient Education 2022 [employer]. 10/02/2023 07:48:34 Chronic Pain, Adult Chronic Pain, [...] Follow these instructions at home: Medicines Take usjy-uzk-pxlailq and prescription medicines only as told by your health care provider. Ask your health care provider if the medicine prescribed to you: ?Requires you to avoid driving or using machinery. ?Can cause constipation. You may need to take these actions to prevent or treat constipation: ?Drink enough fluid to keep your urine pale yellow. ?Take nvkl-niz-bdjpiho or prescription medicines. ?Eat foods that are [...] department or: Call your local emergency services (542 in the [place] Call a suicide crisis helpline, such as the National Suicide Prevention Lifeline at or 905 in the [place] This is open 24 hours a day in the [place] Text the Crisis Text Line at 552238 (in the [place].). Summary Chronic pain is [...] provider. Document Revised: 08/29/2022 Document Reviewed: 12/30/2019 [employer] Patient Education 2022 [employer]. Follow Up Care 10/02/2023 06:24:31 With:Lorri Ireland Address: [address] [place] [address], [address] [facility] [place] (1) When:10/05/2023 07:39:36 Comments:Return to the emergency room if your pain gets worse, vomiting, fever or any new symptoms. [facility]06-01-2024 Evaluation + Plan noteExtracted from: Title:ED Note Author:Sy Pickard PA-C te:09/27/23 Chronic pain in female pelvi s (R10.2: Pelvic and perineal pain) Other chronic pain (G89.29: Other chronic pain) Orders: tramadol, 50 mg = 1 tab(s), Tab, Oral, Once, Stop date 09/27/23 10:37:00 EDT, STAT, Start date 09/27/23 10:37:00 EDT, 09/27/23 10:37:00 EDT [facility]06-01-2024 Hospital Discharge instructions Patient Education [...] Follow these instructions at home: Medicines Take vwkn-tge-uotmbbw and prescription medicines only as told by your health care provider. Ask your health care provider if the medicine prescribed to you: ?Requires you to avoid driving or using machinery. ?Can cause constipation. You may need to take these actions to prevent or treat constipation: ?Drink enough fluid to keep your urine pale yellow. ?Take wpaj-sfu-zlupxqb or prescription medicines. ?Eat foods that are [...] department or: Call your local emergency services (742 in the [place] Call a suicide crisis helpline, such as the National Suicide Prevention Lifeline at or 652 in the [place] This is open 24 hours a day in the [place] Text the Crisis Text Line at 949588 (in the [place].). Summary Chronic pain is [...] provider. Document Revised: 08/29/2022 Document Reviewed: 12/30/2019 [employer] Patient Education 2022 [employer] Follow Up Care 09/27/2023 10:30:49 With:Lorri Ireland Address: [address] [place] [address], [address] [place] [address]- Business (1) When:09/30/2023 10:37:30 [facility]05-31-2024 Hospital Discharge instructions Patient Education [...] Follow these instructions at home: Medicines Take nlcc-kbf-trhisbe and prescription medicines only as told by [...] provider. Document Revised: 11/24/2020 Document Reviewed: 11/24/2020 [employer] Patient Education 2022 [employer]. Follow Up Care 09/26/2023 15:08:18 With:Lorri Ireland Address: [address] [place] [address] Business (1) When:09/29/2023 16:17:44 [facility]05-31-2024 Evaluation + Plan noteExtracted from: Title:ED Note Author:Gagandeep LUKE, Daxa Lujan . Date:09/26/23 1. Dysuria (R30.0: Dysuria) Orders: phenazopyridine, 200 mg = 1 tab(s), Oral, TID, X 7 day(s), # 21 tab(s), Refills(s) 0, Pharmacy: [facility] #[id number], 160, cm, 09/26/23 15:23:00 EDT, Height/Length Dosing, 65, kg, 09/26/23 15:23:00 EDT, Weight Dosing U Beta Hcg Qual UA with Cult Rflx [facility]05-29-2024 Hospital Discharge instructions Patient Education [...] Follow these instructions at home: Medicines Take cqxv-iuj-gqsauxi and prescription medicines only as told by [...] provider. Document Revised: 11/24/2020 Document Reviewed: 11/24/2020 [employer] Patient Education 2022 [employer]. Follow Up Care 09/24/2023 15:27:34 With:Fatoumata Gooden Address: [address] [place] [address] Business (1) When:09/27/2023 16:22:39 Comments:Call Dr for diagnosis based follow up With:Lorri Ireland Address: [address] [place] [address], [facility] [address] [place] [address] Business (1) When:09/27/2023 16:22:32 Comments:Call Dr for diagnosis based follow up [facility]05-25-2024 Hospital Discharge instructions Follow Up Care 09/20/2023 12:20:52 With:Lorri Ireland Address: [address] [place] [address], [address] [address] Business (1) When:Within 3 Day(s) [facility]05-25-2024 Evaluation + Plan noteExtracted from: Title:ED Note Author:Justo Arias DO Date:08/27 09/18 Abdominal pain (R10.9: Unspe cified abdominal pain) Ordered: tramadol, 50 mg = 1 tab(s), Oral, q6hr, X 3 day(s), # 12 tab(s), Refills(s) 0, Pharmacy: [facility]/pharmacy #[id number], 160, cm, 09/20/23 12:38:00 EDT, Height/Length Dosing, 65.1, kg, 09/20/23 12:38:00 EDT, Weight Dosing Nausea (R11.0: Nausea) Orders: ondansetron, 4 mg = 1 tab(s), Oral, q6hr, X 3 day(s), # 10 tab(s), Refills(s) 0, Pharmacy: [facility]/pharmacy #[id number], 160, cm, 09/20/23 12:38:00 EDT, Height/Length Dosing, 65.1, kg, 09/20/23 12:38:00 EDT, Weight Dosing Basic Metabolic Panel Beta hCG Qual CBC w/ Auto Diff eGFR Hepatic Function Panel Lipase Level [facility]05-22-2024 Evaluation + Plan noteExtracted from: Title:ED Note Author:Don Wilmasadi Ford Date :09/17/23 Acute UTI (N39.0: Urinary tr act infection, site not specified) Orders: dicyclomine, 10 mg = 1 cap(s), Cap, Oral, Once, Stop date 09/17/23 4:46:00 EDT, STAT, Start date 09/17/23 4:46:00 EDT, 09/17/23 4:46:00 EDT dicyclomine, 10 mg = 1 cap(s), Oral, QID, X 7 day(s), # 21 cap(s), Refills(s) 0, Pharmacy: [facility]/pharmacy #[id number], 160, cm, 09/17/23 4:33:00 EDT, Height/Length Dosing, 65.4, kg, 09/17/23 4:33:00 EDT, Weight Dosing nitrofurantoin, 100 mg = 1 cap(s), Oral, q12hr, X 5 day(s), # 10 cap(s), Refills(s) 0, Pharmacy: [facility]/pharmacy #[id number], 160, cm, 09/17/23 4:33:00 EDT, [...] day(s), # 9 tab(s), Refills(s) 0, Pharmacy: [facility]/pharmacy #[id number], 160, cm, 09/17/23 4:33:00 EDT, Height/Length Dosing, 65.4, kg, 09/17/23 4:33:00 EDT, Weight Dosing tramadol, 100 mg = 2 tab(s), Tab, Oral, Once, Stop date 09/17/23 4:52:00 EDT, STAT, Start date 09/17/23 4:52:00 EDT, 09/17/23 4:52:00 EDT tramadol, 50 mg = 1 tab(s), Oral, q6hr, PRN for pain, X 2 day(s), # 7 tab(s), Refills(s) 0, [id number] 160, cm, 09/17/23 4:33:00 EDT, Height/Length Dosing, 65.4, kg, 09/17/23 4:33:00 EDT, Weight Dosing U Beta Hcg Qual UA with Cult Rflx Urine Culture Diagnostic Tests Pending * Urine Culture 09/17/23 [facility]05-22-2024 Hospital Discharge instructions Patient Education 09/17/2023 05:11:08 Urinary Tract Infection, Adult, Fkef-br-Kgdw Urinary Tract Infection, Adult A urinary tract [...] Follow these instructions at home: Medicines Take fvnv-ksb-fpjuzez and prescription medicines only as told by [...] provider. Document Revised: 11/24/2020 Document Reviewed: 11/24/2020 [employer] Patient Education 2022 [employer]. Follow Up Care 09/17/2023 04:26:17 With:Lorri Ireland Address: [address] [place] [address], [facility] [address] [facility] [place] (1) When:09/20/2023 Comments:Take the antibiotics as prescribed until you have completed the course. You can use the Pyridium every 8 hours as needed for burning. You can use the other medications as prescribed as needed for pain. Please follow-up with your primary care doctor for further evaluation management. Please return to the ED for any new or worsening symptoms. [facility]05-19-2024 Evaluation + Plan noteExtracted from: Title:ED Note Author:Sy Pickard PA-C te:09/14/23 Pelvic congestion syndrome ( N94.89: Other specified conditions associated with female genital organs and menstrual cycle) Ordered: tramadol, 50 mg = 1 tab(s), Oral, q6hr, PRN as needed for pain, X 2 day(s), # 10 tab(s), Refills(s) 0, Pharmacy: [facility]/pharmacy #[id number], 160, cm, 09/14/23 11:13:00 EDT, Height/Length Dosing, 65.1, kg, 09/14/23 11:13:00 EDT, Weight Dosing Future Appointments Appointment Date:09/15/2023 08:45:00 AM Scheduled Provider:Bon DC, Fatoumata Kelsey Location:[facility] Appointment Type:Vascular New Patient (FT) [facility]05-19-2024 Hospital Discharge instructions Patient Education [...] Follow these instructions at home: Medicines Take xjcr-waf-hetdlqh and prescription medicines only as told by [...] Watch your condition for any changes. Take vhqb-cev-nrliguz and prescription medicines only as told by [...] provider. Document Revised: 06/02/2020 Document Reviewed: 08/23/2019 [employer] Patient Education 2022 [employer]. Follow Up Care 09/14/2023 11:06:42 With:Lorri Ireland Address: [address] [place] [address], [address] [place] [address]- Business (1) When:09/17/2023 11:48:22 [facility]04-22-2024 Evaluation + Plan noteExtracted from: Title:ED Note Author:Hugo Justo Date:07/28 06/21 Pelvic pain (R10.2: Pelvic a nd perineal pain) Ordered: tramadol, 50 mg, Oral, q4hr, Take one by mouth every four hours, X 3 day(s), # 10 tab(s), Refills(s) 0, Pharmacy: [facility] #[id number], 160, cm, 08/18/23 10:31:00 EDT, Height/Length Dosing, 64, kg, 08/18/23 10:31:00 EDT, Weight Dosing Orders: U Beta Hcg Qual UA with Cult Rflx [facility]04-22-2024 Hospital Discharge instructions Follow Up Care 08/18/2023 10:23:22 With:your physician at Address:Unknown When:08/21/2023 11:40:28 With:Lorri Ireland Address: [address] [place] [address], [address] [place] [address] Business (1) When:Within 3 Day(s) [facility]04-18-2024 Hospital Discharge instructions Patient Education [...] known. Follow these instructions at home: Take ctfk-ofk-rvqcsfk and prescription medicines only as told by [...] provider. Document Revised: 08/21/2021 Document Reviewed: 08/21/2021 [employer] Patient Education 2022 [employer]. Follow Up Care 08/14/2023 14:23:37 With:Miguel Angel Kuo Address: [address] [address] [facility] [place] (1) When:08/17/2023 17:07:38 Comments:Make sure to follow-up with Dr. Kuo. Return to the emergency room if your pain gets worse, you develop fever, vaginal discharge or any new symptoms. With:Lorri Ireland Address: [address] [place] [address], [address] [place] [address]- Business (1) When:Within 3 Day(s) [facility]04-18-2024 Evaluation + Plan noteExtracted from: Title:ED Note Author:Mary Jane Palm M.D. te:08/14/23 1. Chronic pelvic pain in fe male (R10.2: Pelvic and perineal pain) Ordered: tramadol, 50 mg = 1 tab(s), Oral, q8hr, PRN as needed for pain, # 7 tab(s), Refills(s) 0, Pharmacy: [facility]/pharmacy #[id number], 160, cm, 08/14/23 14:48:00 EDT, Height/Length Dosing, 64, kg, 08/14/23 14:48:00 EDT, Weight Dosing Other chronic pain (G89.29: Other chronic pain) Orders: Basic Metabolic Panel CBC w/ Auto Diff eGFR Extra Blue Tube Extra SST Tube U Beta Hcg Qual UA with Cult Rflx [facility]04-14-2024 Hospital Discharge instructions Patient Education [...] known. Follow these instructions at home: Take nhaq-btj-kotiuwp and prescription medicines only as told by [...] provider. Document Revised: 08/21/2021 Document Reviewed: 08/21/2021 [employer] Patient Education 2022 [employer]. Follow Up Care 08/10/2023 11:35:32 With:Miguel Angel Kuo Address: [facility] [place] [phone] Business (1) When:08/13/2023 12:48:54 [facility]04-14-2024 Evaluation + Plan noteExtracted from: Title:ED Note Author:Sy Pickard PA-C te:08/10/23 Chronic pelvic pain in femal e (R10.2: Pelvic and perineal pain) Ordered: tramadol, 50 mg = 1 tab(s), Oral, q6hr, PRN as needed for pain, Take one tab by mouth every six hours as needed for pain, X 3 day(s), # 8 tab(s), Refills(s) 0, Pharmacy: [facility]/pharmacy #[id number], 160, cm, 08/10/23 11:41:00 EDT, Height/Length Dosing, 66, kg, 04/14/24... Other chronic pain (G89.29: Other chronic pain) Orders: dicyclomine, 20 mg = 1 tab(s), Oral, TID, X 7 day(s), # 21 tab(s), Refills(s) 0, Pharmacy: [facility]/pharmacy #[id number], 160, cm, 08/10/23 11:41:00 EDT, Height/Length Dosing, 66, kg, 08/10/23 11:41:00 EDT, Weight Dosing [facility]04-03-2024 Hospital Discharge instructions Patient Education [...] numbers. This can be done either in [place] or metric measurements. Note that charts and online BMI calculators are available to help you find your BMI quickly and easily without having to do these calculations yourself. To calculate your BMI in [place] measurements: 1.Measure your weight in pounds [...] Centers for Disease Control and Prevention: www.cdc.gov [place] Heart Association: www.heart.org National Heart, Lung, and Blood [place]: www.nhlbi.nih.gov Summary Body mass index (BMI) is a number that is calculated from a person's weight and height. BMI may help estimate how much of a person's weight is composed of fat. BMI can help identify thosewho may be at higher risk for certain medical problems. BMI can be measured using [place] measurements or metric measurements. BMI charts are used to identify whether you are underweight, normal weight, overweight, or obese. This information is not intended to replace advice given to you by your health care provider. Make sure you discuss any questions you have with your health care provider. Document Revised: 01/05/2020 Document Reviewed: 11/12/2019 [employer] Patient Education 2022 [employer]. 07/30/2023 14:39:39 Abdominal Pain, Adult, Toyl-fk-Ebzd Abdominal Pain, Adult Many things can cause belly (abdominal) pain. Most times, belly pain is not dangerous. Many cases of belly pain can be watched and treated at home. Sometimes, though, belly pain is serious. Your doctor will try to find the cause of your belly pain. Follow these instructions at home: Medicines Take ifcz-ofs-zapvbpw and prescription medicines only as told by [...] your belly pain for any changes. Take xysz-qvc-mnnbtxf and prescription medicines only as told by [...] provider. Document Revised: 08/23/2019 Document Reviewed: 08/23/2019 [employer] Patient Education 2022 [employer]. Follow Up Care 07/30/2023 11:06:05 With:Lorri Ireland CNP Address: [address] [place] [address], [address] [place] [id number]- When: Unknown [facility] 03-30-2024 Hospital Discharge instructions Patient [...] Follow these instructions at home: Medicines Take cjdi-vuv-zoxygxd and prescription medicines only as told by [...] Watch your condition for any changes. Take ivle-qhy-ziivqkh and prescription medicines only as told by [...] provider. Document Revised: 06/02/2020 Document Reviewed: 08/23/2019 [employer] Patient Education 2022 [employer]. Follow Up Care 07/26/2023 09:36:30 With:Lorri Ireland Address: [address] [place] [address], [address] [place] [phone] Business (1) When:07/29/2023 12:09:58 Comments:Call the office of [...] weakness, or any new or worsening symptoms. [facility]03-30-2024 Evaluation + Plan noteExtracted from: Title:ED Note Author:Darren Lomax DO Date: Acute abdominal pain (R10.9: Unspecified abdominal pain) Ordered: tramadol, 50 mg = 1 tab(s), Oral, q12hr, PRN for pain, X 3 day(s), # 6 tab(s), Refills(s) 0, Pharmacy: [facility]/pharmacy #[id number], 160, cm, 07/26/23 9:44:00 EDT, Height/Length Dosing, 61.7, kg, 07/26/23 9:44:00 EDT, Weight Dosing Nausea with vomiting (R11.2: Nausea with vomiting, unspecified) Orders: dicyclomine, 10 mg = 1 cap(s), Oral, QID, PRN Other (see comment), For abdominal cramping, # 12 cap(s), Refills(s) 0, Pharmacy: [facility] #[id number], 160, cm, 07/26/23 9:44:00 EDT, Height/Length [...] Nausea/Vomiting, # 16 tab(s), Refills(s) 0, Pharmacy: [id number], 160, cm, 07/26/23 9:44:00 EDT, Height/Length Dosing, 61.7, kg, 07/26/23 9:44:00 EDT, Weight Dosing Basic Metabolic Panel Beta hCG Qual CBC w/ Auto Diff CT Abdomen/Pelvis w/ Contrast ED Cardiac Monitoring eGFR Extra Blue Tube NPO Diet Saline Lock Insert UA with Cult Rflx Future Appointments Appointment Date:07/29/2023 04:00:00 PM Scheduled Provider: Location:.[facility]TRASOUND Appointment Type:US Abdominal/Pelvis (FT) Appointment Date:08/04/2023 11:00:00 AM Scheduled Provider: Location:FT.CARDIO Appointment Type:CV Holter/Event (FT) Future Scheduled Tests Radiology* US Pelvis Non-OB Complete 07/29/23 * US Transvaginal Non-OB 07/29/23 [facility]03-23-2024 Hospital Discharge instructions Patient Education 07/19/2023 12:49:00 Bronchospasm, Adult, Brcq-no-Abee Bronchospasm, Adult Bronchospasm is when the small airways in the lungs narrow. This can make it very hard to breathe. Swelling and more mucus than normal can add to this problem. What are the causes? Having a cold. Exercise. The smell from sprays, perfumes, candles, and lopper. Cold air. Stress or strong feelings such [...] Follow these instructions at home: Medicines Take xzom-ljd-jbnsqjx and prescription medicines only as told by [...] provider. Document Revised: 11/05/2021 Document Reviewed: 11/05/2021 [employer] Patient Education 2022 [employer]. 07/19/2023 12:49:00 Nonspecific Chest Pain, Adult, Ejgv-wn-Koxf Nonspecific Chest Pain Chest pain can be [...] Follow these instructions at home: Medicines Take gipg-ncv-yqeygwe and prescription medicines only as told by [...] ?Eating a heart-healthy diet. A diet and oncology account specialist (dietitian) can help you to learn healthy [...] provider. Document Revised: 06/28/2021 Document Reviewed: 06/28/2021 [employer] Patient Education 2022 [employer]. 07/19/2023 12:49:00 Chest Wall Pain, Agnx-ju-Nlng Chest Wall Pain Chest wall pain is [...] are safe for you. General instructions Take ciay-xnm-hydreul and prescription medicines only as told by [...] provider. Document Revised: 07/17/2021 Document Reviewed: 06/29/2021 [employer] Patient Education 2022 [employer]. Follow Up Care 07/19/2023 09:27:13 With:Lorri Ireland Address: [address] [place] [address], [address] [place] [phone] Business (1) When:Within 3 Day(s) [facility]03-23-2024 Evaluation + Plan noteExtracted from: Title:ED Note Author:Ulisses Mckinney PA-C te:07/19/23 Bronchitis (J40: Bronchitis, not specified as acute or chronic) Nonspecific chest pain (R07.9: Chest pain, unspecified) Orders: azithromycin, 250 mg, Oral, As Directed, # 6 tab(s), Refills(s) 0, Pharmacy: [facility] #[id number], 160, cm, 07/19/23 9:32:00 EDT, Height/Length Dosing, [...] day(s), # 21 tab(s), Refills(s) 0, Pharmacy: [facility] #[id number], 160, cm, 07/19/23 9:32:00 EDT, Height/Length Dosing, [...] day(s), # 12 tab(s), Refills(s) 0, Pharmacy: [facility] #[id number], 160, cm, 07/19/23 9:32:00 EDT, Height/Length Dosing, [...] Scheduled Provider: Location:.CARDIO Appointment Type:CV Holter/Event (FT) [facility]03-16-2024 Hospital Discharge instructions Patient Education [...] the electrical activity of the heart. ?Ambulatory cardiac catheterization technician. This records your heartbeats for 24 hours or more. You may be referred to a industrial relations specialist (systems spec). How is this treated? Treatment for this [...] to keep your urine pale yellow. Take oksu-gxm-ydjfdsv and prescription medicines only as told by [...] provider. Document Revised: 08/23/2021 Document Reviewed: 08/23/2021 [employer] Patient Education 2022 [employer]. 07/12/2023 20:02:42 Hypokalemia Hypokalemia Hypokalemia means that [...] products, such as yogurt. General instructions Take zsll-rii-jmqjlmk and prescription medicines only as told by [...] provider. Document Revised: 12/27/2021 Document Reviewed: 12/27/2021 [employer] Patient Education 2022 [employer]. Follow Up Care 07/12/2023 17:35:23 With:Rogelio LUTZ Address: [address] [place] [phone] Business (1) When:07/19/2023 19:46:40 With:Lorri Ireland Address: [address], [address] [place] [address]- Business (1) When:Within 3 Day(s) [facility]03-13-2024 Hospital Discharge instructions Patient Education [...] numbers. This can be done either in [place] or metric measurements. Note that charts and online BMI calculators are available to help you find your BMI quickly and easily without having to do these calculations yourself. To calculate your BMI in [place] measurements: 1.Measure your weight in pounds [...] Centers for Disease Control and Prevention: www.cdc.gov [place] Heart Association: www.heart.org National Heart, Lung, and Blood [place]: www.nhlbi.nih.gov Summary Body mass index (BMI) is a number that is calculated from a person's weight and height. BMI may help estimate how much of a person's weight is composed of fat. BMI can help identify thosewho may be at higher risk for certain medical problems. BMI can be measured using [place] measurements or metric measurements. BMI charts are used to identify whether you are underweight, normal weight, overweight, or obese. This information is not intended to replace advice given to you by your health care provider. Make sure you discuss any questions you have with your health care provider. Document Revised: 01/05/2020 Document Reviewed: 11/12/2019 [employer] Patient Education 2022 [employer]. 07/09/2023 17:05:07 Abdominal Pain, Adult Abdominal Pain, [...] Follow these instructions at home: Medicines Take hpku-kxb-tzlykfu and prescription medicines only as told by [...] Watch your condition for any changes. Take hlqm-gjk-mwprahj and prescription medicines only as told by [...] provider. Document Revised: 06/02/2020 Document Reviewed: 08/23/2019 [employer] Patient Education 2022 [employer]. Follow Up Care 07/09/2023 12:39:40 With:Lorri Ireland CNP Address: [address] [place] [address], [address] [place] [address]- When: Unknown [facility] 03-11-2024 Hospital Discharge instructions Patient [...] Follow these instructions at home: Medicines Take doiw-trg-nfxfuuz and prescription medicines only as told by [...] Watch your condition for any changes. Take zuhe-nwh-kxiwfpl and prescription medicines only as told by [...] provider. Document Revised: 06/02/2020 Document Reviewed: 08/23/2019 [employer] Patient Education 2022 [employer]. Follow Up Care 07/07/2023 11:03:13 With:Lorri Ireland Address: [address] [place] [address], [address] [place] [address] Business (1) When:07/10/2023 12:52:46 [facility]03-11-2024 Hospital Discharge instructions Patient Education 07/07/2023 11:15:13 Steps to Quit Smoking, Pvjo-uy-Latc Steps to Quit Smoking Smoking tobacco is [...] a prescription, and some you can buy mvbi-xnb-ykbivvm. Some medicines may contain a drug called [...] you. Call a phone quitline, such as 2-939-FWGMEtaphaseNOW, reach out to support groups, or work [...] provider. Document Revised: 04/05/2022 Document Reviewed: 04/05/2022 [employer] Patient Education 2022 [employer]. 07/07/2023 11:15:10 BMI for Adults BMI for [...] numbers. This can be done either in [place] or metric measurements. Note that charts and online BMI calculators are available to help you find your BMI quickly and easily without having to do these calculations yourself. To calculate your BMI in [place] measurements: 1.Measure your weight in pounds [...] Centers for Disease Control and Prevention: www.cdc.gov [place] Heart Association: www.heart.org National Heart, Lung, and Blood [place]: www.nhlbi.nih.gov Summary Body mass index (BMI) is a number that is calculated from a person's weight and height. BMI may help estimate how much of a person's weight is composed of fat. BMI can help identify thosewho may be at higher risk for certain medical problems. BMI can be measured using [place] measurements or metric measurements. BMI charts are used to identify whether you are underweight, normal weight, overweight, or obese. This information is not intended to replace advice given to you by your health care provider. Make sure you discuss any questions you have with your health care provider. Document Revised: 01/05/2020 Document Reviewed: 11/12/2019 [employer] Patient Education 2022 [employer]. 07/07/2023 11:15:04 Dysuria Dysuria Dysuria is pain [...] Follow these instructions at home: Medicines Take wuwm-rim-pznhqlm and prescription medicines only as told by [...] provider. Document Revised: 11/24/2020 Document Reviewed: 11/24/2020 [employer] Patient Education 2022 [employer]. 07/07/2023 11:15:01 Abdominal Pain, Adult, Qjka-ms-Hhkx Abdominal Pain, Adult Many things can cause belly (abdominal) pain. Most times, belly pain is not dangerous. Many cases of belly pain can be watched and treated at home. Sometimes, though, belly pain is serious. Your doctor will try to find the cause of your belly pain. Follow these instructions at home: Medicines Take oxwr-vuh-csiuukj and prescription medicines only as told by [...] your belly pain for any changes. Take qmfj-wmq-cwjxgkm and prescription medicines only as told by [...] provider. Document Revised: 08/23/2019 Document Reviewed: 08/23/2019 [employer] Patient Education 2022 [employer]. 07/07/2023 11:14:57 Flank Pain, Adult, Oojn-ma-Ohql Flank Pain, Adult Flank pain is pain [...] Rest as told by your doctor. Take qyax-lve-zmrivoj and prescription medicines only as told by [...] right away. Call your local emergency services (151 inthe [place] Do not wait to see if [...] provider. Document Revised: 06/25/2021 Document Reviewed: 06/25/2021 [employer] Patient Education 2022 [employer]. Follow Up Care 07/07/2023 09:06:09 With:Lorri Ireland CNP Address: [address] [place] [address], [address] [place] [address]- When: Unknown With:Emergency room Address: When:Within 1 Day(s) Comments:Patient instructed to contact emergency room for any worsening lower abdominal pain or worsening right flank pain, for further evaluation and treatment and assessment. Patient agrees with the plan. [facility] 03-03-2024 Evaluation + Plan noteExtracted [...] Therapy PT & PTT [place] [place] Saline Lock Insert Troponin 0 Hr. [...] the Naprosyn she will then take 1 [place] that we will dispense. She is scheduled to follow-up with her family doctor tomorrow morning. [facility]03-03-2024 Hospital Discharge instructions Patient Education [...] the electrical activity of the heart. ?Ambulatory cardiac catheterization technician. This records your heartbeats for 24 hours or more. You may be referred to a industrial relations specialist (systems spec). How is this treated? Treatment for this [...] to keep your urine pale yellow. Take uabc-pxx-ccxnfoz and prescription medicines only as told by [...] provider. Document Revised: 08/23/2021 Document Reviewed: 08/23/2021 [employer] Patient Education 2022 [employer]. 06/29/2023 08:58:56 Nonspecific Chest Pain, Adult, Llpg-ts-Zqpp Nonspecific Chest Pain Chest pain can be [...] Follow these instructions at home: Medicines Take prbu-jkr-wljpviy and prescription medicines only as told by [...] ?Eating a heart-healthy diet. A diet and oncology account specialist (dietitian) can help you to learn healthy [...] provider. Document Revised: 06/28/2021 Document Reviewed: 06/28/2021 [employer] Patient Education 2022 [employer]. Follow Up Care 06/29/2023 06:08:42 With:Lorri Ireland Address: [address] [place] [address], [address] [place] [address]- Business (1) When:06/30/2023 08:46:18 Comments:As scheduled [facility]02-17-2024 Hospital Discharge instructions Patient Education 06/14/2023 09:20:58 Pharyngitis, Lmwk-tj-Ghxm Pharyngitis Pharyngitis is a sore throat (pharynx). [...] Follow these instructions at home: Medicines Take uxwc-hqu-pelsqxl and prescription medicines only as told by [...] and water are not available, use hand scenery builder. Do not touch your eyes, nose, or [...] provider. Document Revised: 07/11/2021 Document Reviewed: 07/11/2021 [employer] Patient Education 2022 [employer]. Follow Up Care 06/14/2023 08:47:19 With:Lorri Ireland Address: [address] [place] [address], [address] [place] [address]- Business (1) When:06/17/2023 09:01:25 [facility]02-03-2024 Evaluation + Plan noteExtracted from: Title:ED Note Author:Sy Pickard PA-C te:05/31/23 Abdominal pain (R10.9: Unspe cified abdominal pain) Diarrhea, unspecified (R19.7: Diarrhea, unspecified) Nausea vomiting and diarrhea (R11.2: Nausea with vomiting, unspecified) Orders: dicyclomine, 20 mg = 1 tab(s), Oral, TID, X 7 day(s), # 21 tab(s), Refills(s) 0, Pharmacy: [facility] #[id number], 160, cm, 05/31/23 8:12:00 EST, Height/Length Dosing, [...] TID, # 15 tab(s), Refills(s) 0, Pharmacy: [facility] #[id number], 160, cm, 05/31/23 8:12:00 EST, Height/Length Dosing, [...] Appointments Appointment Date:06/05/2023 11:45:00 AM Scheduled Provider: Location:.PHYSICAL [place] Appointment Type:PT 45 (FT) Appointment Date:06/11/2023 09:30:00 AM Scheduled Provider: Location:.PHYSICAL [place] Appointment Type:PT 45 (FT) Appointment Date:06/13/2023 10:00:00 AM Scheduled Provider: Location:FT.PHYSICAL [place] Appointment Type:PT 45 (FT) Appointment Date:06/17/2023 10:15:00 AM Scheduled Provider: Location:.PHYSICAL [place] Appointment Type:PT 45 (FT) Appointment Date:06/18/2023 11:00:00 AM Scheduled Provider: Location:FT.PHYSICAL [place] Appointment Type:PT 45 (FT) Appointment Date:06/20/2023 01:00:00 PM Scheduled Provider: Location:.PHYSICAL [place] Appointment Type:PT Re-Eval 45 (FT) Future Scheduled Tests Radiology* XR Spine Lumbosacral Minimum 4 Views 06/26/22 [facility]02-03-2024 Hospital Discharge instructions Patient Education [...] Follow these instructions at home: Medicines Take ahjy-zfy-rdjyyzr and prescription medicines only as told by [...] Watch your condition for any changes. Take qysq-nak-aihbsuc and prescription medicines only as told by [...] provider. Document Revised: 06/02/2020 Document Reviewed: 08/23/2019 [employer] Patient Education 2022 [employer]. Follow Up Care 05/31/2023 08:01:25 With:Lorri Ireland Address: [address] [place] [address], [address] [place] [phone] Business (1) When:06/03/2023 11:01:28 [facility]12-19-2023 Hospital Discharge instructions Patient Education 04/15/2023 12:14:04 Nosebleed, Adult, Oqiv-yu-Vvlo Nosebleed, Adult A nosebleed is when blood [...] your nosebleed was caused by dryness, use qtcn-nsx-ympokzx saline nasal spray or gel and a [...] provider. Document Revised: 04/23/2022 Document Reviewed: 04/23/2022 [employer] Patient Education 2022 [employer]. Follow Up Care 04/15/2023 11:30:17 With:Erin DC, Zabrina Hurley Address: [address] [place] [address], [address] [place] [phone]- When:1 to 2 days [facility]12-19-2023 Evaluation + Plan noteExtracted from: Title:ED Note Author:Savanna Rivero PA-C Date :04/15/23 1. Epistaxis (R04.0: Epistax is) Future Scheduled Tests Radiology* XR Spine Lumbosacral Minimum 4 Views 06/26/22 [facility]12-04-2023 History of Present illness Narrative* Regi Hunter PA-C - 03/31/2023 11:00 AM EST POV after 03/24/23 nasal surgery Doing well, endorses improved breathing bilaterally Continues salt water sprays and vaseline to nares Nasal splint removed Septum midline Nasal valve patent Incisions c/d/I Continue nasal saline sprays and ointment to nares RTC 4-6 months or PRN documented in this [facility] Work Phone: 1(643) 512-123012-03-2023 Hospital Discharge instructions Patient Education 03/30/2023 16:47:32 [...] Get up and walk. IV patient-controlled analgesia (SCHOOL LIBRARY MEDIA SPECIALIST) pump With this method, you receive pain medicine through an IV that is connected to a SCHOOL LIBRARY MEDIA SPECIALIST pump. The SCHOOL LIBRARY MEDIA SPECIALIST pump gives you a specific amount of medicine when you push a button. This lets you control how much medicine you receive. You are the only person who should push this button. The pump is set up so that you cannot accidentally give yourself too much medicine. You will be able to start using your SCHOOL LIBRARY MEDIA SPECIALIST pump in the recovery room after your [...] provider. Document Revised: 07/12/2021 Document Reviewed: 07/12/2021 [employer] Patient Education 2022 [employer]. 03/30/2023 16:47:32 Acute Pain, Adult Acute Pain, [...] Follow these instructions at home: Medicines Take ndjv-ajt-cvmgbpm and prescription medicines only as told by [...] pain is severe. ?Do not take other rbvi-emv-pbkfqnk pain medicines in addition to prescription pain [...] grains, and fresh fruits and vegetables. ?Take vaee-xkn-qyxczmd or prescription medicines. ?Limit foods that are [...] or you are no longer ill. Take naqw-hfa-bzyeeik and prescription medicines only as told by [...] provider. Document Revised: 08/29/2022 Document Reviewed: 08/30/2019 [employer] Patient Education 2022 [employer]. Follow Up Care 03/30/2023 15:25:42 With:Lorri Ireland Address: [address] [place] [address], [address] [facility] (1) When:04/02/2023 16:20:27 Comments:Follow-up with your primary care provider in 3 to 5 days. If symptoms worsen, do not improve, or new symptoms arise please report back to emergency department for further evaluation. [facility]11-27-2023 Hospital Discharge instructions* Discharge Instructions* Lavinia Potter MD - 03/24/2023 7:36 AM EST FACIAL PLASTIC SURGERY POSTOPERATIVE INSTRUCTIONS NASAL SURGERY Important Phone Numbers Dr. Thiago Cuellar: [phone] Debbie Bowden R.N. Evenings/Weekends Emergency: [phone] - please ask for the ENT resident [...] medical attention if you develop fever greater [id number] degrees, excessive bleeding, excessive pain that is [...] your next scheduled visit. documented in this [facility] Work Phone: 1(572) 690-289411-14-2023 Hospital Discharge instructions Follow Up Care 03/11/2023 13:00:37 With:Lorri Ireland CNP Address: [address] [place] [address], [address] [place] [id number]- When: Unknown [facility] 11-10-2023 Note* ADRIANA/BRIGHT Hurley&P - Neisha Desouza PA-C - 03/07/2023 9:52 AM EST Images from the original note were not included. CPM/PAT Evaluation Name: Alejandra Real (Alejandra Real) /Age: 6 1995/ y.o. [...] valve repair, reconstruction rhinoplasty on 03/24/2023 at [facility]. ACTIVE PROBLEMS Patient Active Problem List Diagnosis [...] 131 pounds; BMI: 24.09 LABS CHEMISTRY COMMON GROUP [facility] [facility]07/20/2021 Component 07/20/2021 07/20/2021 07/20/2021 07/20/2021 07/19/2021 [...] -- -- -- >90.0 EGFR IF NonAfrican Namibian -- -- -- -- -- >90.0 Calcium -- -- -- -- -- 7.6 Low Total Protein -- -- -- -- -- 6.3 POC Glucose 114 High 148 High 109 High 184 High 112 High -- CELL COUNT AND DIFFERENTIATION [facility] Component 07/19/2021 WBC 21.9 High RBC 4.05 Hemoglobin 12.1 Hematocrit 36.3 MCV 89.5 MCH 29.9 MCHC 33.4 RDW 14.7 High Platelets 381 MPV 8.1 IMAGING none ASSESSMENT/PLAN Nasal obstructive breathing Septoplasty, inferior turbinate reductions, nasal valve repair, reconstruction rhinoplasty This note was created in part upon personal review of patient's medical records. [facility] Work Phone: [phone]) 796-399511-10-2023 Miscellaneous Notes* CPM/PAT H&P - Neisha Desouza PA-C - 03/07/2023 9:52 AM EST Images from the original note were not included. CPM/PAT Evaluation Name: Alejandra Real (Alejandra Real) /Age: 6 1995 y.o. TELEMEDICINE ENCOUNTER Patient was contacted by [...] valve repair, reconstruction rhinoplasty on 03/24/2023 at [facility]. ACTIVE PROBLEMS Patient Active Problem List Diagnosis [...] 131 pounds; BMI: 24.09 LABS CHEMISTRY COMMON GROUP [facility] [employer] [facility]07/20/2021 Component 07/20/2021 07/20/2021 07/20/2021 07/20/2021 07/19/2021 [...] -- -- -- >90.0 EGFR IF NonAfrican Namibian -- -- -- -- -- >90.0 Calcium -- -- -- -- -- 7.6 Low Total Protein -- -- -- -- -- 6.3 POC Glucose 114 High 148 High 109 High 184 High 112 High -- CELL COUNT AND DIFFERENTIATION GROUP [facility] [employer] [facility]07/19/2021 Component 07/19/2021 WBC 21.9 High RBC [...] Checklist Your surgery has been scheduled at [facility] at [address] in [place], [place], [facility], [address], in the [facility]. Parking is to the left of the [...] call by 3:00 pm you may call [phone] between the hours of 3:00 and 4:00 [...] *If you need help with quitting, call 5-841-PXSY-NOW. Alcohol: *No alcoholic beverages for 48 hours before surgery. AFTER OUTPATIENT SURGERY: *A responsible adult MUST accompany you at the time of discharge and stay with you for 24 hours after your surgery. *You may NOT drive yourself home after surgery. *You may use a taxi or ride sharing service ([employer]) to return home ONLY if you are [...] regarding these preoperative instructions you may call [phone]. If you have questions regarding you surgical procedure, or post- operative care/recovery please call yoursurgeon's office. Link to [facility] [email or web address] =[email or web address] documented in this [facility] Work Phone: [phone]) 412-581611-10-2023 Note* Preprocedure Instructions - Neisha Desouza PA-C - 03/07/2023 9:48 AM EST No outpatient medications have been marked as taking for the 03/24/23 encounter (Hospital Encounter). Pre-Op Instructions & Checklist Your surgery has been scheduled at [facility] at [address] [place], [address], [address], in the [facility]. Parking is to the left of [...] call by 3:00 pm you may call [phone] between the hours of 3:00 and 4:00 [...] *If you need help with quitting, call 0-046-CEZB-NOW. Alcohol: *No alcoholic beverages for 48 hours before surgery. AFTER OUTPATIENT SURGERY: *A responsible adult MUST accompany you at the time of discharge and stay with you for 24 hours after your surgery. *You may NOT drive yourself home after surgery. *You may use a taxi or ride sharing service ([employer]) to return home ONLY if you are [...] regarding these preoperative instructions you may call [phone]. If you have questions regarding you surgical procedure, or post- operative care/recovery please call yoursurgeon's office. Link to [facility] [email or web address] =[email or web address] [facility] Work Phone: 1(146) 863-803710-12-2023 History of Present illness Narrative* Thiago Cuellar [...] Nasopharynx: Clear, no discharge, no masses/lesions Modified Maura Maneuver: Performed with a cotton tipped applicator, [...] turbinate reduction with lateralization. documented in this [facility] Work Phone: [phone]) 244-662409-29-2023 Hospital Discharge instructions Patient Education 01/24/2023 10:02:23 [...] home: Managing pain, stiffness, and swelling Take jjce-itt-ufwblrp and prescription medicines only as told by [...] each day. Do not sit, drive, or interlocking tower operator one place for more than 30 minutes [...] put less stress on your back. Take axyv-sbw-zddlkpb and prescription medicines only as told by your health care provider, and apply heat or ice as told. This information is not intended to replace advice given to you by your health care provider. Make sure you discuss any questions you have with your health care provider. Document Revised: 07/06/2021 Document Reviewed: 07/06/2021 [employer] Patient Education 2022 [employer]. 01/24/2023 10:00:27 Acute Back Pain, Adult Acute [...] home: Managing pain, stiffness, and swelling Take ryaa-nxk-pwuqstv and prescription medicines only as told by [...] each day. Do not sit, drive, or interlocking tower operator one place for more than 30 minutes [...] put less stress on your back. Take msbg-fhp-ftinxkz and prescription medicines only as told by your health care provider, and apply heat or ice as told. This information is not intended to replace advice given to you by your health care provider. Make sure you discuss any questions you have with your health care provider. Document Revised: 07/06/2021 Document Reviewed: 07/06/2021 [employer] Patient Education 2022 [employer]. Follow Up Care 01/24/2023 09:07:50 With:Lorri Ireland CNP Address: [address] [place] [address], [facility] [address] [place] [address]- When: Unknown With:Lorri Ireland CNP Address: [address] [place] [address], [address] [address]- When: Unknown [facility] 09-20-2023 Hospital Discharge instructions Patient [...] home: Managing pain, stiffness, and swelling Take iapa-lgj-jjbfvap and prescription medicines only as told by [...] each day. Do not sit, drive, or interlocking tower operator one place for more than 30 minutes [...] put less stress on your back. Take gwsc-qqe-zfuzjsi and prescription medicines only as told by your health care provider, and apply heat or ice as told. This information is not intended to replace advice given to you by your health care provider. Make sure you discuss any questions you have with your health care provider. Document Revised: 07/06/2021 Document Reviewed: 07/06/2021 [employer] Patient Education 2022 [employer]. Follow Up Care 01/15/2023 13:09:14 With:Lorri Ireland CNP Address: [address] [place] [address], [facility] [address] [place] [address]- When: Unknown [facility] 03-08-2023 Evaluation + Plan noteExtracted [...] Future Scheduled Tests Radiology* Echo Transthoracic Complete 3/23/23 * XR Spine Lumbosacral Minimum 4 Views 06/26/22 [facility]03-08-2023 Hospital Discharge instructions Patient Education [...] This condition may be caused by: A manager product marketing the eye. A gritty or irritating substance [...] in diseases and conditions of the eye (survey research professor). This condition may be diagnosed based on your medical history, symptoms, and an eye exam. Before the eye exam, numbing drops may be put into your eye. You may also have dye put in your eye with a dropper or a small paper strip. The dye makes the abrasion easy to see when your survey research professor examines your eye with a light. Your survey research professor may look at your eye through an [...] if you start to feel better. Take nmge-zke-audxxav and prescription medicines only as told by your health care provider. Ask your health care provider if the medicine prescribed to you: ?Requires you to avoid driving or using heavy machinery. ?Can cause constipation. You may need to take these actions to prevent or treat constipation: ?Drink enough fluid to keep your urine pale yellow. ?Take vyvo-tiq-iyewpkg or prescription medicines. ?Eat foods that are [...] wearing an eye patch. Your ability to daub color mixer distances will be impaired. ?Follow instructions from [...] machinery while wearing it. Your ability to daub color mixer distances will be impaired. Let your health care provider know if your symptoms continue for more than 2 days. This information is not intended to replace advice given to you by your health care provider. Make sure you discuss any questions you have with your health care provider. Document Released: 04/11/2001 Document Revised: 08/20/2019 Document Reviewed: 08/20/2019 [employer] Patient Education 2020 [employer]. Follow Up Care 07/03/2022 08:23:25 With:Gayla Dunbar Address: [facility] [address] [place] [address] [address] [place] [address]- Business (1) When:07/06/2022 09:34:59 Comments:Follow-up with ophthalmology With:Lorri Ireland Address: [address] [place] [address], [address] [place] [address]- Business (1) When:Within 3 Day(s) [facility]03-01-2023 Evaluation + Plan note Future Scheduled Tests Radiology* XR Spine Lumbosacral Minimum 4 Views 06/26/22 [facility]05-20-2022 Hospital Discharge instructions Patient Education 09/14/2021 19:56:26 Abdominal Pain, Adult, Tbry-wr-Ajrp Abdominal Pain, Adult Many things can cause belly (abdominal) pain. Most times, belly pain is not dangerous. Many cases of belly pain can be watched and treated at home. Sometimes, though, belly pain is serious. Your doctor will try to find the cause of your belly pain. Follow these instructions at home: Medicines Take xxtw-ges-srzvhln and prescription medicines only as told by [...] your belly pain for any changes. Take djbx-djb-jrveaov and prescription medicines only as told by [...] 09/30/2008 Document Revised: 08/23/2019 Document Reviewed: 08/23/2019 [employer] Patient Education 2020 [employer]. 09/14/2021 18:04:24 Burn Care, Adult, Oisv-bu-Euxv Burn Care, Adult A burn is an [...] ?Pus or a bad smell. Medicine Take kxja-hxg-ndiowkq and prescription medicines only as told by [...] 01/21/2009 Document Revised: 08/04/2019 Document Reviewed: 10/01/2016 [employer] Patient Education 2020 [employer]. Follow Up Care 09/14/2021 17:36:21 With:Beka SPICER Lorri L Address: [address] [facility], [address] [place] [address] When:09/17/2021 With:Shiela DC, Miguel Angel Swan, ORS Address: [address] [place], [place] [id number] When:2 to 4 days [facility]03-25-2022 Note Attestation signed by Misti Ziegler MD at 07/21/2021 8:31 AM [facility] See note from today. The patient will follow up in [place] with Dr Antonio and precautions were addressed Less than 30 minutes spent Misti Ziegler MD Department of Obstetrics and Gynecology [facility] Discharge Summary Admission on 07/18/2021 11:34 PM Alejandra Real is a 25 y.o. at 33w6d who was admitted for tPTL. Patient transferred from [facility] after making change from 1-->3cm after office visit. At OSH received BMZx1, PCN, terbutaline x3, 20mg procardia, and magnesium sulfate. Abruption labs were obtained and negative. Upon admission to [facility] patient was unchanged and CTX q3min. Patient was started on Procardia 10mg q6hr until she was 34w0d. BMZx2 was administered on 07/19. A growth US was obtained 07/19 and showed EFW 2494g (57%ile) with normal DAGOBERTO. Pt was uncomfortable enough on arrival and received epidural, however did not make any cervical private branch exchange service advisor he course of a day and ctx [...] Threatened Labor Follow up appointment with your doctor/ict help desk technician - Keep next scheduled appointment Activity - Off feet as much as possible Call your doctor/ict help desk technician if you have: - leaking fluid - vaginal bleeding - regular contractions: Every 5 minutes or closer for one hour - decreased movement - worsening abdominal (belly) pain - headache, blurry vision, increased swelling, upper abdominal pain Renetta Lam, DO on 07/20/2021 at 3:48 [facility]03-25-2022 Hospital Discharge instructions* Instructions* Tera Martin MD - 07/20/2021 Follow up appointment with your doctor/ict help desk technician - call your rhia for follow up within the next week Activity - Normal Activity, however no heavy lifting or intercourse Call your doctor/ict help desk technician if you have: - leaking fluid - [...] related visit on 07/20/21. Tera Martin MD [facility] documented in this [facility] Work Phone: 1(775) 818-994803-25-2022 History of Present illness Narrative* Mirtha Joshi [...] 0758 lactated ringers infusion IntraVENous Continuous Jerrell Velez, DO 125 mL/hr at 07/19/21 0200 New Bag at 07/19/21 0200 sodium chloride flush 0.9 % injection 10 mL 10 mL IntraVENous 2 times per day Jerrell Velez, DO 10 mL at 07/19/21 0800 sodium chloride flush 0.9 % injection 10 mL 10 mL IntraVENous PRN Jerrell Velez, DO 0.9 % sodium chloride infusion 25 mL IntraVENous PRN Jerrell R Hill, DO ondansetron (ZOFRAN-ODT) disintegrating tablet 4 mg 4 mg Oral Q8H PRN Jerrell Velez, DO Or ondansetron (ZOFRAN) injection 4 mg 4 mg IntraVENous Q6H PRN Jerrell R Hill, DO acetaminophen (TYLENOL) tablet 650 mg 650 mg Oral Q4H PRN Jerrell R Agustin, DO 650 mg at 07/19/21 0213 Or acetaminophen (TYLENOL) suppository 650 mg 650 mg Rectal Q4H PRN Jerrell R Hill, DO vitamin 27-1 MG tablet 1 tablet 1 tablet Oral Daily Jerrell R Agustin, DO 1 tablet at 07/19/21 0758 docusate sodium (COLACE) capsule 100 mg 100 mg Oral BID PRN Jerrell R Hill, DO ropivacaine 0.2% in sodium chloride 0.9% 200mL (OB) epidural 8 mL/hr Epidural Continuous Bobara Project Manager Finance, SUMMER COUNSELOR - PARARESCUE CRAFTSMAN And ropivacaine 0.2% in sodium chloride 0.9% (OB) epidural syringe Epidural Continuous Bobara Project Manager Finance, SUMMER COUNSELOR - PARARESCUE CRAFTSMAN Assessment/Plan: Alejandra Real is a 25 y.o. [...] and nursing Misti Ziegler MD * Renetta Lam DO - 07/19/2021 7:14 AM EDT Called by RN to check pt due to increased discomfort. Pt unchanged /-3. Pt requesting epidural,however pt overall comfortable appearing in room. Will give tylenol 1g and reassess. FHT cat I and reassuring. Called in to recheck pt, feeling more rectal pressure like she needs to push. SVE remains unchanged, /-3 and does not feel like a laboring cervix. Will get epidural at this time. Called by RN for continued pelvic pressure with functioning epidural in place. Pt reports she can still feel mild ctx but not pain. SVE again remains unchanged /-3. Ctx appear to be spacing out. Will reassess and discuss turning off epidural this afternoon. Procardia stopped. FHR intermittentlycat II for periods of tachycardia, overall reassuring with moderate variability. * Jerrell Velez DO - 07/19/2021 1:23 AM EDT cMFM/(Farideh) tPTL documented in this [facility] Work Phone: Evaluation + Plan note No data available for this section [facility] Future Appointments Appointment Date:07/18/2022 11:00:00 AM Scheduled Provider: Location:FT.CARDIO Appointment Type:CV Echo (FT) Future Scheduled Tests Radiology* Echo Transthoracic Complete 07/18/22 * XR Spine Lumbosacral Minimum 4 Views 06/26/22 [facility] Evaluation + Plan note Future Appointments Appointment Date:09/27/2022 09:00:00 AM Scheduled Provider: Location:.CARDIO Appointment Type:CV Echo (FT) Future Scheduled Tests Radiology* Echo Transthoracic Complete 09/27/22 * XR Spine Lumbosacral Minimum 4 Views 06/26/22 [facility] Future Appointments Appointment Date:05/13/2023 10:00:00 AM Scheduled Provider: Location:.PHYSICAL [place] Appointment Type:PT Eval (FT) Future Scheduled Tests Radiology* XR Spine Lumbosacral Minimum 4 Views 06/26/22 [facility] Evaluation + Plan note Future Appointments Appointment Date:05/28/2023 01:45:00 PM Scheduled Provider: Location:.PHYSICAL [place] Appointment Type:PT Eval (FT) Future Scheduled Tests Radiology* XR Spine Lumbosacral Minimum 4 Views 06/26/22 [facility] Future Appointments Appointment Date:06/17/2023 10:15:00 AM Scheduled Provider: Location:.PHYSICAL [place] Appointment Type:PT 45 (FT) Appointment Date:06/18/2023 11:00:00 AM Scheduled Provider: Location:.PHYSICAL [place] Appointment Type:PT 45 (FT) Appointment Date:06/20/2023 01:00:00 PM Scheduled Provider: Location:.PHYSICAL [place] Appointment Type:PT Re-Eval 45 (FT) Future Scheduled Tests Radiology* XR Spine Lumbosacral Minimum 4 Views 06/26/22 [facility] Future Appointments Appointment Date:07/08/2023 08:45:00 AM Scheduled Provider: Location:.PHYSICAL [place] Appointment Type:PT Re-Eval 45 (FT) [facility] Evaluation + Plan note Future Appointments Appointment Date:07/08/2023 08:45:00 AM Scheduled Provider: Location:.PHYSICAL [place] Appointment Type:PT Re-Eval 45 (FT) Diagnostic Tests Pending * Urine Culture 07/07/23 [facility] Future Appointments Appointment Date:08/04/2023 11:00:00 AM Scheduled Provider: Location:.CARDIO Appointment Type:CV Holter/Event (FT) Appointment Date:08/06/2023 07:00:00 AM Scheduled Provider: Location:.ULTRASOUND Appointment Type:US Abdominal/Pelvis (FT) Future Scheduled Tests Radiology* US Abdomen Complete 08/06/23 [facility] Future Appointments Appointment Date:08/06/2023 07:00:00 AM Scheduled Provider: Location:.ULTRASOUND Appointment Type:US Abdominal/Pelvis (FT) Future Scheduled Tests Radiology* US Pelvis Non-OB Complete 08/06/23 * US Transvaginal Non-OB 08/06/23 [facility] Future Appointments Appointment Date:11/03/2023 10:45:00 AM Scheduled Provider:Fatoumata Gooden MD Location:.[facility] Clinic Appointment Type:Vascular Follow Up (FT) [facility] Future Appointments Appointment Date:11/03/2023 10:45:00 AM Scheduled Provider:Fatoumata Gooden MD Location:.[facility] Clinic Appointment Type:Vascular Follow Up (FT) Appointment Date:11/17/2023 01:45:00 PM Scheduled Provider:Cristóbal Granados DO Location:.[facility] [place] Appointment Type:Pain Management - New (FT) [facility] Future Appointments Appointment Date:11/17/2023 01:45:00 PM Scheduled Provider:Cristóbal Granados DO Location:.[facility] [place] Appointment Type:Pain Management - New (FT) [facility] Future Appointments Appointment Date:11/27/2023 08:15:00 AM Scheduled Provider:Cristóbal Granados DO Location:.[facility] [place] Appointment Type:Pain Management - New (FT) [facility] Evaluation + Plan note Future Appointments Appointment Date:11/27/2023 08:15:00 AM Scheduled Provider:Cristóbal Granados DO Location:.[facility] [place] Appointment Type:Pain Management - New (FT) Diagnostic Tests Pending * RPR with Conf Rfx 11/24/23 * HIV Screen 4th Generation wRfx 11/24/23 * Acute Hepatitis A B C Panel 11/24/23 [facility] Evaluation note* Diagnosis Threatened labor, antepartum Threatened premature labor, antepartum documented in this encounter [facility] Work Phone: Evaluation note* Diagnosis Difficulty breathing- Primary Other dyspnea and respiratory abnormality Nasal septal deviation Deviated nasal septum Hypertrophy of inferior nasal turbinate Collapse of nasal valve Nasal congestion Other diseases of nasal cavity and sinuses Deviated septum Deviated nasal septum documented in this encounter [facility] Work Phone: Evaluation note* Diagnosis Deviated septum- [...] inferior nasal turbinate documented in this encounter [facility] Work Phone: Evaluation note* Diagnosis Deviated septum- Primary Deviated nasal septum Nasal congestion Other diseases of nasal cavity and sinuses Difficulty breathing Other dyspnea and respiratory abnormality Collapse of nasal valve Hypertrophy of inferior nasal turbinate documented in this encounter [facility] Work Phone: Evaluation noteNo assessment information available [facility] Work Phone: Hospital Discharge instructions No data available for this section [facility] Additional Instructions Continue taking your Naprosyn and Tylenol for minor pain [place] for severe pain You cannot work or drive when taking [place] Follow-up with your ASP DEVELOPER call tomorrow for 7-year-old here appointment Return here if any problems persist or worsen as discussedSelect [facility] Work Phone: Hospital Discharge instructions Additional Instructions Take 1 hydrocodone every 6 hours for severe pain Continue the other medications as needed Follow-up with the specialist as scheduled Return to the ER for high fever vomiting more severe pain or any other concerns [facility] Work Phone: Hospital Discharge instructions Additional Instructions If your symptoms return/worsen or you develop any further concerns or symptoms please see your doctor or return to the emergency department immediately.[facility] Work Phone: Hospital Discharge instructions Additional Instructions 1. Must follow up with pcp for any additional tramadol 2. Return to [facility] for any problems[facility] Work Phone: Progress note No data available for this section [facility] Care Advance Directives No Advanced Directives Records [...] of nose [M95.0] Nasal congestion [R09.81] Procedures CO SEPTOPLASTY/SUBMUCOUS RESECJ W/WO CARTILAGE GRF CO RHINOPLASTY PRIMARY W/MAJOR SEPTAL REPAIR CO REPAIR NASAL VESTIBULAR STENOSIS CO SUBMUCOUS RESCJ INFERIOR TURBINATE PRTL/COMPL CO FRACTURE NASAL INFERIOR TURBINATE THERAPEUTIC Septoplasty, Inferior turbinate reduction, Nasal valve repair, Reconstructive rhinoplasty; CASE LENGTH= 2.5 HOURS Reconstructive rhinoplasty Repair Nasal Valve Excision Nasal Turbinate Fracture Therapeutic Nasal Bone [place], [place] [address] [place] [address] [facility] [place] [address] [place] [address] Referral ID Status Reason Start Date Expiration Date Visits Re quested Visits Authorized [id number] 1 1 Reason Comments Post-op Visit Scheduled [...] Until Discontinued 0758 (Given - Provider: Megha Watts, WINNIE) 0801 (Given - Provider: Graciela Kathleen, WINNIE) NIFEdipine (PROCARDIA) capsule 10 mg (CANCELED) 10 mg, Oral, EVERY 6 HOURS SCHEDULED (4 times per day), 4 doses, First dose on Yadira 07/19/21 at 0130, Last dose on Yadira 07/19/21 at 2200 0213 (Given - Provider: Dorothy Hanks, WINNIE)0758 (Given - Provider: Megha Watts RN) penicillin G potassium in d5w IVPB 2.5 Million Units (CANCELED) 2.5 Million Units, IntraVENous, EVERY 4 HOURS, First dose on Yadira 07/19/21 at 0230, Until Discontinued, Antimicrobial Indications: GBS Prophylaxis 0215 (New Bag - Provider: Dorothy Hanks RN)0300 (Stopped - Provider: Dorothy Hanks RN)0639 (New Bag - Provider: Dorothy Hanks RN)0709 (Stopped - Provider: Megha Watts RN)1048 (New Bag - Provider: Sil Wade, WINNIE)1118 (Stopped - Provider: Sil Wade, RN)1429 (New Bag - Provider: Sil Wade, RN)1459 (Stopped - Provider: Sil Wade, RN)1820 (New Bag - Provider: Moriah Randhawa RN)1850 (Due: Stopped - Provider: oMriah Randhawa RN)2300 (New Bag - Provider: Gina Lopes, RN)2330 (Due: Stopped - Provider: Gina Lopes, RN) [...] (Due) 0845 (Given - Provider: Graciela Kathleen, RN)2100 (Due) Continuous Medication Order 07/18/2021 07/19/2021 07/20/2021 [...] medications. 0213 (See Alternative - Provider: Dorothy Hanks RN) acetaminophen (TYLENOL) tablet 650 mg(Linked Group 2) [...] section and content) DATE CREATED AUTHOR 07/29/2021 [facility] DATE CREATED AUTHOR AUTHOR'S ORGANIZ ATION 04/07/2023 [facility] DATE CREATED AUTHOR AUTHOR'S ORGANIZ ATION 05/04/2023 [facility] DATE CREATED AUTHOR AUTHOR'S ORGANIZ ATION 08/27/2023 [facility] EPIC DATE CREATED AUTHOR AUTHOR'S ORGANIZ ATION 08/30/2023 [facility] DATE CREATED AUTHOR AUTHOR'S ORGANIZ ATION 09/19/2023 [facility] DATE CREATED AUTHOR AUTHOR'S ORGANIZ ATION 09/21/2023 [facility] DATE CREATED AUTHOR AUTHOR'S ORGANIZ ATION 09/22/2023 [facility] DATE CREATED AUTHOR AUTHOR'S ORGANIZ ATION 09/25/2023 [facility] DATE CREATED AUTHOR AUTHOR'S ORGANIZ ATION 09/26/2023 [facility] DATE CREATED AUTHOR AUTHOR'S ORGANIZ ATION 09/27/2023 [facility] DATE CREATED AUTHOR AUTHOR'S ORGANIZ ATION 09/28/2023 [facility] DATE CREATED AUTHOR AUTHOR'S ORGANIZ ATION 10/03/2023 [facility] DATE CREATED AUTHOR AUTHOR'S ORGANIZ ATION 10/05/2023 [facility] DATE CREATED AUTHOR AUTHOR'S ORGANIZ ATION 10/19/2023 [facility] DATE CREATED AUTHOR AUTHOR'S ORGANIZ ATION 10/23/2023 [facility] DATE CREATED AUTHOR AUTHOR'S ORGANIZ ATION 10/25/2023 [facility] DATE CREATED AUTHOR AUTHOR'S ORGANIZ ATION 10/31/2023 [facility] DATE CREATED AUTHOR AUTHOR'S ORGANIZ ATION 11/03/2023 [facility] DATE CREATED AUTHOR AUTHOR'S ORGANIZ ATION 11/20/2023 [facility] DATE CREATED AUTHOR AUTHOR'S ORGANIZ ATION 11/28/2023 [facility] DATE CREATED AUTHOR AUTHOR'S ORGANIZ ATION 11/30/2023 [facility] Patient Care team informatio n (unrecognized section and content) Landscape Contractor Relationship Specialty Start Date End Date Gilbert Valverde DO [address] [place] [address] [address] PCP - General Family Medicine 02/06/23 Landscape Contractor Relationship Specialty Start Date End Date LinkGilbert DO PCP - General Family Medicine 02/06/23 Landscape Contractor Relationship Specialty Start Date End Date Gilbert Valverde DO PCP - General Family Medicine 02/06/23 Team Status: Active Member Role Status Dates Lorri L Beka Primary Care Provider Active Team Status: Inactive Member Role Status Dates Satish Dean PA-C Emergency Provider Active Start: August 05, 2023 End: August 05, 2023 Lorri L Beka Primary Care Provider Active Star t: August 05, 2023 End: August 05, 2023 Team Status: Inactive Member Role Status Dates Lorri L [place] Primary Care Provider Active Star t: August 20, 2023 End: August 20, 2023 Janeth Johnson APRN Emergency Provider Active Start: August 20, 2023 End: August 20, 2023 Team Status: Inactive Member Role Status Dates Lorri Russo [place] Primary Care Provider Active Star t: September 04, 2023 End: September 04, 2023 Felisa Tay [facility] Emergency Provider Active Start: September 04, 2023 End: September 04, 2023 Team Status: Inactive Member Role Status Dates Lorri Russo [place] Primary Care Provider Active Star t: September 27, 2023 End: September 27, 2023 Neptali Esquivel DO Emergency Provider Active Start: September 27, 2023 End: September 27, 2023 Team Status: Inactive Member Role Status Dates Lorri Russo [place] Primary Care Provider Active Star t: [...] BE BASED ON THE PRIMARY CLINICAL RECORDS. [facility]. provides no warranty or guarantee of the accuracy or completeness of information in this document.
--- NOTE | 2023-12-02 07:01 | ED_ITS ---
HPI - Abdominal Pain General Chief Complaint: Abdominal Pain Stated Complaint: ABD PAIN Time Seen by Provider: 12/02/23 06:51 Source: patient Mode of arrival: walk-in Limitations: no limitations History of Present Illness HPI narrative: 28-year-old female to the emergency department with chief complaint of lower abdominal pain. The pain is chronic in nature. Is been ongoing for several months. She has been diagnosed with pelvic congestion syndrome and is awaiting insurance approval for procedure with vascular surgeon Dr. Crockett. She is out of her pain medication and has a exacerbation of pain this morning. Pain is typical for her. No new symptoms today. She is otherwise at her baseline health. Related Data Home Medications ?Medication ?Instructions ?Recorded ?Confirmed baclofen 10 mg tablet 10 mg PO BID 06/28/23 11/26/23 ferrous sulfate 325 mg (65 mg 325 mg PO DAILY 06/28/23 06/28/23 iron) tablet (Feosol) Previous Rx's ?Medication ?Instructions ?Recorded dicyclomine 20 mg tablet 20 mg PO TID PRN abdominal pain #7 06/28/23 tabs ondansetron 4 mg disintegrating 4 mg PO Q4H PRN nausea and 06/28/23 tablet vomiting 3 days #6 tabs tramadol 50 mg tablet 50 mg PO BID PRN pain 3 days #6 11/26/23 tabs ondansetron 4 mg disintegrating 4 mg PO Q8H PRN nausea and 12/02/23 tablet vomiting 4 days #16 tabs tramadol 50 mg tablet 50 mg PO Q6H PRN pain 3 days #12 12/02/23 tabs Allergies Allergy/AdvReac Type Severity Reaction Status Date / Time No Known Drug Allergies Allergy Verified 12/02/23 06:46 Review of Systems ROS Status of ROS 10 or more systems reviewed and unremark able except as noted in history and below PFSH PFSH Social History Smoking status: Former smoker Exam Narrative Exam Narrative: VITALS: I have reviewed the triage vital signs. GENERAL: Well developed, well appearing adult in no acute distress. NEURO: Alert and oriented. Moves all extremities. Face is symmetric and expressive. EYES: PERRL. No scleral icterus or conjunctival injection. No discharge. HENT: Normocephalic, atraumatic. Hearing is grossly intact. Nares grossly patent and without discharge. Mucous membranes moist. NECK: No JVD. Patient moves neck without restriction. CARDIO: Rhythm regular. Normal rate. No murmur, rub, or gallop. Pulses equal bilaterally in the upper and lower extremity. No lower extremity edema. PULM: Lungs clear to auscultation in all dickens. No wheezes, rales, or rhonchi. No conversational dyspnea. No splinting, stridor, or accessory muscle use. GI/: Abdomen is soft and non-tender. Normoactive bowel sounds. EXTREMITIES: Symmetric muscle bulk. No joint swelling. No clubbing, cyanosis, or deformity. SKIN: Warm and dry. Normal turgor. No rash or lesions appreciated. PSYCH: Mood, affect, and interaction is appropriate to the setting. Constitutional Vital Signs, click to edit/add: Last Vital Signs Temp 98.4 F 12/02/23 06:46 Pulse 91 H 12/02/23 06:46 Resp 18 12/02/23 06:46 BP 143/78 H 12/02/23 06:46 Pulse Ox 100 12/02/23 06:46 O2 Del Method Room Air 12/02/23 06:46 Course Vital Signs Vital signs: Vital Signs Temperature 98.4 F 12/02/23 06:46 Pulse Rate 91 H 12/02/23 06:46 Respiratory Rate 18 12/02/23 06:46 Blood Pressure 143/78 H 12/02/23 06:46 Pulse Oximetry 100 12/02/23 06:46 Oxygen Delivery Method Room Air 12/02/23 06:46 Temperature 98.4 F 12/02/23 06:46 Pulse Rate 91 H 12/02/23 06:46 Respiratory Rate 18 12/02/23 06:46 Blood Pressure 143/78 H 12/02/23 06:46 Pulse Oximetry 100 12/02/23 06:46 Oxygen Delivery Method Room Air 12/02/23 06:46 MDM - Abdominal Pain MDM Narrative Medical decision making narrative: Well-appearing 28-year-old female to the emergency department chief complaint of lower abdominal pain. Vital stable, the patient is afebrile. Her abdominal examination is benign. She is well-known to me both at this facility and another. I have spoken to her vascular surgeon in the past about her condition. She is awaiting surgical procedure for painful pelvic congestion syndrome. No new symptoms today. Discussed with patient. Symptomatic therapy. No indication for further workup at this time and she agrees. Tramadol and Zofran. Return precautions were discussed. All questions were answered. She will follow-up with her vascular surgeon. The patient was discharged home. Medical Records Attestation: I reviewed the patient's medical records. Lab Data Attestation: I reviewed the patient's lab results. Discharge Plan Discharge Stand Alone Forms: Portal Instructions Chief Complaint: Abdominal Pain Clinical Impression: Chronic abdominal pain, Pelvic congestion syndrome Patient Disposition: Home, Self-Care Time of Disposition Decision: 06:56 Condition: Good Mode of Transportation: Private Vehicle Prescriptions / Home Meds: New tramadol 50 mg tablet 50 mg PO Q6H PRN (Reason: pain) 3 Days Qty: 12 0RF ondansetron 4 mg tablet,disintegrating 4 mg PO Q8H PRN (Reason: nausea and vomiting) 4 Days Qty: 16 0RF No Action baclofen 10 mg tablet 10 mg PO BID ferrous sulfate [Feosol] 325 mg (65 mg iron) tablet 325 mg PO DAILY dicyclomine 20 mg tablet 20 mg PO TID PRN (Reason: abdominal pain) Qty: 7 0RF ondansetron 4 mg tablet,disintegrating 4 mg PO Q4H PRN (Reason: nausea and vomiting) 3 Days Qty: 6 0RF tramadol 50 mg tablet 50 mg PO BID PRN (Reason: pain) 3 Days Qty: 6 0RF Print Language: Maltese Instructions: Abdominal Pain (ED) Additional Instructions: Call the office of your primary care doctor to arrange for follow-up within the above-stated timeframe. Your ED visit was focused on your acute issue and does not replace primary care. You should review your labs, imaging, and diagnoses from this ED visit with your primary care physician. There may be non-emergent/ incidental findings that need further evaluation. You should review your vital signs including blood pressure with your PCP. If you were prescribed medications you should discuss possible side-effects and drug interactions with your pharmacist. Call 911 or go to the nearest Emergency Department if you develop any new or worsening symptoms. Seek immediate medical attention if you develop: worsening abdominal pain, new or worsening nausea, new or worsening vomiting, new or worsening diarrhea, chest pain, shortness of breath, pain with urination, problems urinating, fever, chills, weakness, or any new or worsening symptoms. Referrals: Physician,Non-Staff, [Primary Care Provider] - 1 week Fatoumata Crockett MD [Physician] - 1 week Discharge Date/Time: 12/02/23 07:02
== END 2023-12-02 07:02 | disposition home or self-care (01) ==
PROVIDERS: Emergency Provider Student in an Organized Health Care Education/Training Program; Family Provider Family Medicine
DX: R10.9 Unspecified abdominal pain (principal); G89.29 Other chronic pain; N94.89 Other specified conditions associated with female genital organs and menstrual cycle; Z87.891 Personal history of nicotine dependence
CPT/HCPCS: 99283

== ENCOUNTER 2023-12-05 07:07 | Emergency (ER) | payer OTHER, SELFPAY ==
[2023-12-05 07:11] VITALS: BP 124/81; PULSE 75; TEMP 37.2; O2SAT 100; BMI 24.1
--- OUTSIDE RECORDS SUMMARY | 2023-12-05 07:15 | XMS_ITS | CCD ---
Author Organization [facility] Care Team Providers Care 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 Name Role Phone Unavailable Primary Care Provider UnavailKrystle Kennedy Primary Care Physician Gilbert Valverde DO Primary Care Provider [phone] Link Gilbert MARIA Primary Care Provider THIAGO CUELLAR Admitting Unavailable THIAGO CUELLAR Attending Unavailable GILBERT VALVERDE Primary Care Unavailable THIAGO CUELLAR Attending Unavailable GILBERT VALVERDE Primary Care Unavailable REGI HUNTER Attending Unavailable GILBERT VALVERDE Primary Care Unavailable REGI HUNTER Attending Unavailable GILBERT VALVERDE Primary Care Unavailable Nancy Rose Primary Care Physician TI Dean Emergency Provider Krystle Ireland Primary Care Provider NADIA Johnson Emergency Provider ANABELA SAEZ Attending Unavailable SIVAN KONG Attending Unavailable SIVAN KONG Referring Unavailable GAYLA DUNBAR Attending Unavailable MIGUEL ANGEL PENNINGTON Referring Unavailable KRYSTLE IRELAND Primary Care Unavailable MIGUEL ANGEL ALEMAN Attending Unavailable Maggi, [facility]- Felisa Ayala Emergency Provider DO Vivian [...] Unavailable Caliepert, Anabela A Admitting Unavailable Ireland, Krystle L Primary Care Unavailable Jonathon Anabela A Attending Unavailable Ireland, Krystle L Primary Care Unavailable Keister Neptali A Attending Unavailable Kelópez Neptali A Admitting Unavailable Ireland, Krystle L Primary Care Unavailable Felisa Tay Attending Unavailable Felisa Tay Admitting Unavailable Janeth Johnson Attending Unavailable Janeth Johnson Admitting Unavailable Ireland, Krystle L Primary Care Unavailable Satish Dean Attending Unavailable Satish Dean Admitting Unavailable Beka Krystle L Primary Care Unavailable Fatoumata Gooden Admitting Unavailable Fatoumata Gooden FVinh Attending Unavailable NONE, XXXX Referring Unavailable Ivana Bennett Admitting Unavailable Ivana Bennett Attending Unavailable Justo Arias Attending Unavailable Guille Will Attending Unavailable DANNIELLE MORENO Attending UnavailBruno Alfaro Attending Unavailable Justo Arias Attending Unavailable [...] 04, 2023 12:42pm Start: 07-07-2023 End: 07-10-2023 Weldon 325 mg-5 mg oral table t 1 tab(s), Oral, q6hr for pain for 3 day(s), 12 tab(s), Refill(s) 0, [facility] #[id number], 160, cm, 07/07/23 11:13:00 EDT, Height/Length Dosing, 69.9, kg, 07/07/23 11:13:00 EDT, Weight Dosing Start Date: 07/07/23 Stop Date: 07/10/23 Status: Ordered Start: 06-29-2023 Weldon 325 mg-5 mg oral tablet 1 tab(s), Oral, q4hr for pain, 5 tab(s), Refill(s) 0 Start Date: 06/29/23 Status: Ordered Start: 05-22-2023 Weldon 325 mg-5 mg oral tablet 1 tab(s), Oral, q6hr as needed for pain, 10 tab(s), Refill(s) 0, [facility] #[id number], 160, cm, 05/22/23 6:23:00 EST, Height/Length Dosing, [...] day(s), 12 tab(s), Refill(s) 0, [facility] #[id number], 157, cm, 03/30/23 15:42:00 EST, Height/Length Dosing, [...] for 10 day(s), 20 tab(s), Refill(s) 0, [email or web address][id number], 157, cm, 04/11/23 11:07:00 EST, Height/Length Dosing, 57.6, kg, 04/11/23 11:07:00 EST, Weight Dosing Start Date: 04/11/23 Stop Date: 04/21/23 Status: Ordered azithromycin 250 mg oral tablet (2 sources) Macrolide Antimicrobial Start: azithromycin 250 mg Tab 250 mg, Oral, As Directed, # 6 tab(s), Refills(s) 0, Pharmacy: [facility] #[id number], 160, cm, 07/19/23 9:32:00 EDT, Height/Length Dosing, 65.7, kg, 07/19/23 9:32:00 EDT, Weight Dosing Start Date: 07/19/23 Status: Ordered azithromycin 250 mg Tab 5-day Dose Pack (Z-Gabriel) (1 source) Start: End: azithromycin 250 mg Tab 5-day Dose Pack (Z-Gabriel) = 1 packet(s), Oral, As Directed, as directed on package labeling, X 5 day(s), # 6 tab(s), Refills(s) 0, Pharmacy: [facility] #[id number], 160, cm, 06/14/23 8:56:00 EST, Height/Length Dosing, 65, kg, 06/14/23 8:56:00 EST, Weight Dosing Start Date: 06/14/23 Stop Date: 06/19/23 Status: Ordered Baclofen (20 sources) gamma-Aminobutyric Acid-ergic Agonist Start: 03-11-2 024 BACLOFEN 10 MG TABLET BACLOFEN 10 MG TABLET Start Date: 07/07/23 Status: Ordered Start: 05-11-2023 take 1 tablet by amber th twice daily baclofen 5 mg oral tablet 5 mg = 1 tab(s), Oral, BID, # 60 tab(s), Refills(s) 0, Pharmacy: [facility]/pharmacy #[id number], 162, cm, 05/11/23 11:33:00 EST, Height/Length Dosing, 61.9, kg, 05/11/23 11:33:00 EST, Weight Dosing Start Date: 05/11/23 Status: Ordered Start: 05-03-2023 End: 05-07-2023 take 1 tablet by mouth three times daily as needed for muscle spasms baclofen 10 mg Tab 10 mg = 1 tab(s), Oral, TID, PRN Spasm, X 4 day(s), # 12 tab(s), Refills(s) 0, Pharmacy: [email or web address] #[id number], 162, cm, 05/03/23 12:24:00 EST, Height/Length Dosing, 62.7, kg, 05/03/23 12:24:00 EST, Weight Dosing Start Date: 05/03/23 Stop Date: 05/07/23 Status: Ordered Start: 03-11-2023 End: 03-16-2023 take 1 tablet by mouth twice daily baclofen 5 mg oral tablet 5 mg = 1 tab(s), Oral, BID, X 5 day(s), # 10 tab(s), Refills(s) 0, [facility]: [email or web address] #[id number], 157, cm, 03/11/23 17:06:00 EST, Height/Length Dosing, 57.6, kg, 03/11/23 17:06:00 EST, Weight Dosing Start Date: 03/11/23 Stop Date: 03/16/23 Status: Ordered Start: 01-15-2023 End: 03-07-2023 take 1 tablet by mouth at bedtime baclofen 5 mg oral tablet 5 mg = 1 tab(s), Oral, Bedtime, # 12 tab(s), Refills(s) 0, Pharmacy: [email or web address] #[id number], 157, cm, 01/24/23 9:27:00 EDT, Height/Length Dosing, [...] at 125 mL/hr, C ONTINUOUS, Starting on [facility] 07/19/21 at 0130 cefdinir 300 mg oral [...] # 21 cap(s), Refills(s) 0, Pharmacy: [facility] #[id number], 157, cm, 11/09/22 14:16:00 EDT, Height/Length Dosing, [...] day(s), # 14 tab(s), Refills(s) 0, Pharmacy: [facility]/pharmacy #[id number], 160, cm, 11/02/23 14:02:00 EDT, Height/Length [...] day(s), # 21 tab(s), Refills(s) 0, Pharmacy: [facility]/pharmacy #[id number], 160, cm, 08/10/23 11:41:00 EDT, Height/Length Dosing, 66, kg, 08/10/23 11:41:00 EDT, Weight Dosing Start Date: 08/10/23 Stop Date: 08/17/23 Status: Ordered Start: 07-26-2023 End: 09-24-2023 take 1 capsule by mouth four times daily as needed Bentyl 10 mg Cap 10 mg = 1 cap(s), Oral, QID, PRN Other (see comment), For abdominal cramping, # 12 cap(s), Refills(s) 0, Pharmacy: [facility]/pharmacy #[id number], 160, cm, 07/26/23 9:44:00 EDT, Height/Length Dosing, 61.7, kg, 07/26/23 9:44:00 EDT, Weight Dosing Start Date: 07/26/23 Status: Ordered Start: 05-31-2023 End: 06-07-2023 take 1 tablet by mouth three times daily dicyclomine 20 mg Tab 20 mg = 1 tab(s), Oral, TID, X 7 day(s), # 21 tab(s), Refills(s) 0, [id number], 160, cm, 05/31/23 8:12:00 EST, Height/Length Dosing, 67, kg, 05/31/23 8:12:00 EST, Weight Dosing Start Date: 05/31/23 Stop Date: 06/07/23 Status: Ordered diflunisal 500 mg oral tablet (1 source) Nonsteroidal Anti-inflammatory Drug Start: 11-29-2023 take 1 tablet by mouth every twelve hours diflunisal 500 mg Tab 500 mg = 1 tab(s), Oral, q12hr, # 20 tab(s), Refills(s) 0, Pharmacy: [facility]/pharmacy #[id number], 160, cm, 11/29/23 6:47:00 EDT, Height/Length [...] Daily, # 30 tab(s), Refills(s) 1, Pharmacy: [facility]/pharmacy #[id number], 162, cm, 05/11/23 11:33:00 EST, Height/Length Dosing, 61.9, kg, 05/11/23 11:33:00 EST, Weight Dosing Start Date: 05/11/23 Status: Ordered methocarbamol 750 mg oral tablet (1 source) Muscle Relaxant Start: 11-29-2023 End: 12-06-2023 take 1 tablet by mouth three times daily Robaxin-750 oral tablet 750 mg = 1 tab(s), Oral, TID, X 7 day(s), # 21 tab(s), Refills(s) 0, Pharmacy: [facility]/pharmacy #[id number], 160, cm, 11/29/23 6:47:00 EDT, Height/Length Dosing, 60.8, kg, 11/29/23 6:47:00 EDT, Weight Dosing Start Date: 11/29/23 Stop Date: 12/06/23 Status: Ordered methylPREDNISolone 4 mg oral tablet (1 source) Corticosteroid Start: 07-19-2023 End: 07-25-2023 Medrol 4 mg Tab = 1 packet(s), Oral, As Directed, as directed on package labeling, X 6 day(s), # 21 tab(s), Refills(s) 0, Pharmacy: [facility] #[id number], 160, cm, 07/19/23 9:32:00 EDT, Height/Length Dosing, [...] day(s), # 10 cap(s), Refills(s) 0, Pharmacy: [facility]/pharmacy #[id number], 160, cm, 09/17/23 4:33:00 EDT, Height/Length [...] day(s), # 10 tab(s), Refills(s) 0, Pharmacy: [facility]/pharmacy #[id number], 160, cm, 09/20/23 12:38:00 EDT, Height/Length [...] day(s), # 21 tab(s), Refills(s) 0, [id number], 160, cm, 09/26/23 15:23:00 EDT, Height/Length Dosing, 65, kg, 09/26/23 15:23:00 EDT, Weight Dosing Start Date: 09/26/23 Stop Date: 10/03/23 Status: Ordered Start: 09-24-2023 End: 09-27-2023 take 1 tablet by mouth three times daily Pyridium 100 mg Tab 100 mg = 1 tab(s), Oral, TID, X 3 day(s), # 9 tab(s), Refills(s) 0, [id number], 160, cm, 09/24/23 15:37:00 EDT, Height/Length Dosing, 65, kg, 09/24/23 15:37:00 EDT, Weight Dosing Start Date: 09/24/23 Stop Date: 09/27/23 Status: Ordered Start: 09-17-2023 End: 09-20-2023 take 1 tablet by mouth three times daily Pyridium 200 mg Tab 200 mg = 1 tab(s), Oral, TID, X 3 day(s), # 9 tab(s), Refills(s) 0, [id number], 160, cm, 09/17/23 4:33:00 EDT, Height/Length Dosing, 65.4, kg, 09/17/23 4:33:00 EDT, Weight Dosing Start Date: 09/17/23 Stop Date: 09/20/23 Status: Ordered Start: 11-09-2022 End: 11-11-2022 take 1 tablet by mouth three times daily Pyridium 200 mg Tab 200 mg = 1 tab(s), Oral, TID, X 2 day(s), # 6 tab(s), Refills(s) 0, [facility][id number], 157, cm, 11/09/22 14:16:00 EDT, Height/Length Dosing, 62.9, kg, 11/09/22 14:16:00 EDT, Weight Dosing Start Date: 11/09/22 Stop Date: 11/11/22 Status: Ordered polyethylene glycol 3350 65453 mg powder for oral solution (1 source) [...] day(s), # 7 tab(s), Refills(s) 0, Pharmacy: [facility]/pharm[facility] #[id number], 160, cm, 11/26/23 10:31:00 EDT, Height/Length Dosing, 62, kg, 11/26/23 10:31:00 EDT, Weight Dosing Start Date: 11/26/23 Stop Date: 12/03/23 Status: Ordered Start: 10-31-2023 End: 11-05-2023 take 1 tablet by mouth once daily predniSONE 50 mg Tab 50 mg = 1 tab(s), Oral, Daily, X 5 day(s), # 5 tab(s), Refills(s) 0, Pharmacy: [facility]/pharmacy #[id number], 160, cm, 10/31/23 12:45:00 EDT, Height/Length Dosing, 63.2, kg, 10/31/23 12:45:00 EDT, Weight Dosing Start Date: 10/31/23 Stop Date: 11/05/23 Status: Ordered Start: 06-26-2022 End: 07-03-2022 take 3 tablets by mouth once daily predniSONE 20 mg Tab 60 mg = 3 tab(s), Oral, Daily, X 7 day(s), # 21 tab(s), Refills(s) 0, Pharmacy: [facility] #[id number], 157, cm, 06/26/22 14:20:00 EST, Height/Length Dosing, [...] (5 sources) Start: 03-24-2023 sodium chlorid e ([place] Nasal) 0.65 % nasal spray Indications: Nasal [...] day(s), # 9 tab(s), Refills(s) 0, Pharmacy: [facility]/pharmacy #[id number], 160, cm, 11/24/23 11:59:00 EDT, Height/Length Dosing, 62, kg, 11/24/23 11:59:00 EDT, Weight Dosing Start Date: 11/24/23 Stop Date: 11/27/23 Status: Ordered Start: 10-02-2023 End: 10-28-2023 take 1 tablet by mouth every six hours as needed for pain traMADOL 50 mg Tab 50 mg = 1 tab(s), Oral, q6hr, PRN as needed for pain, # 7 tab(s), Refills(s) 0, Pharmacy: [facility]/pharmacy #[id number], 160, cm, 10/02/23 6:32:00 EDT, Height/Length Dosing, 67.7, kg, 10/02/23 6:32:00 EDT, Weight Dosing Start Date: 10/02/23 Status: Ordered Start: 09-24-2023 End: 09-27-2023 take 1 tablet by mouth every six hours as needed for pain traMADOL 50 mg Tab 50 mg = 1 tab(s), Oral, q6hr, PRN for pain, X 3 day(s), # 12 tab(s), Refills(s) 0, Pharmacy: [facility]/pharmacy #[id number], 160, cm, 09/24/23 15:37:00 EDT, Height/Length Dosing, 65, kg, 09/24/23 15:37:00 EDT, Weight Dosing Start Date: 09/24/23 Stop Date: 09/27/23 Status: Ordered Start: 09-20-2023 End: 09-23-2023 take 1 tablet by mouth every six hours Ultram 50 mg Tab 50 mg = 1 tab(s), Oral, q6hr, X 3 day(s), # 12 tab(s), Refills(s) 0, Pharmacy: [facility]/pharm[facility] #[id number], 160, cm, 09/20/23 12:38:00 EDT, Height/Length Dosing, 65.1, kg, 09/20/23 12:38:00 EDT, Weight Dosing Start Date: 09/20/23 Stop Date: 09/23/23 Status: Ordered Start: 09-14-2023 End: 09-19-2023 take 1 tablet by mouth every six hours as needed for pain traMADOL 50 mg Tab 50 mg = 1 tab(s), Oral, q6hr, PRN for pain, X 2 day(s), # 7 tab(s), Refills(s) 0, Pharmacy: [facility]/pharm[facility] #[id number], 160, cm, 09/17/23 4:33:00 EDT, Height/Length Dosing, 65.4, kg, 09/17/23 4:33:00 EDT, Weight Dosing Start Date: 09/17/23 Stop Date: 09/19/23 Status: Ordered Start: 08-05-2023 End: 08-20-2023 take 1 tablet by mouth every eight hours as needed for pain traMADOL 50 mg Tab 50 mg = 1 tab(s), Oral, q8hr, PRN as needed for pain, # 7 tab(s), Refills(s) 0, Pharmacy: [facility] #[id number], 160, cm, 08/14/23 14:48:00 EDT, Height/Length [...] day(s), # 10 tab(s), Refills(s) 0, [facility][id number], 160, cm, 08/18/23 10:31:00 EDT, Height/Length Dosing, 64, kg, 08/18/23 10:31:00 EDT, Weight Dosing Start Date: 08/18/23 Stop Date: 08/21/23 Status: Ordered Start: 07-26-2023 End: 07-29-2023 take 1 tablet by mouth every twelve hours as needed for pain traMADOL 50 mg Tab 50 mg = 1 tab(s), Oral, q12hr, PRN for pain, X 3 day(s), # 6 tab(s), Refills(s) 0, Pharmacy: [facility]/pharmacy #[id number], 160, cm, 07/26/23 9:44:00 EDT, Height/Length Dosing, 61.7, kg, 07/26/23 9:44:00 EDT, Weight Dosing Start Date: 07/26/23 Stop Date: 07/29/23 Status: Ordered Start: 07-19-2023 End: 07-22-2023 take 1 tablet by mouth every six hours as needed for pain traMADOL 50 mg Tab 50 mg = 1 tab(s), Oral, q6hr, PRN for pain, X 3 day(s), # 12 tab(s), Refills(s) 0, [facility][id number], 160, cm, 07/19/23 9:32:00 EDT, Height/Length Dosing, 65.7, kg, 07/19/23 9:32:00 EDT, Weight Dosing Start Date: 07/19/23 Stop Date: 07/22/23 Status: Ordered Zofran ODT 4 mg Tab-Dis (20 sources) Start: 10-19-2023 take 1 tablet by mouth every eight hours as needed for nausea Zofran ODT 4 mg Tab-Dis 4 mg = 1 tab(s), Oral, q8hr, PRN Nausea/Vomiting, # 20 tab(s), Refills(s) 0, Pharmacy: [facility]/pharmacy #[id number], 160, cm, 10/19/23 12:58:00 EDT, Height/Length Dosing, 65, kg, 10/19/23 12:58:00 EDT, Weight Dosing Start Date: 10/19/23 Status: Ordered Start: 07-26-2023 take 1 tablet by amber th every eight hours as needed for nausea Zofran ODT 4 mg Tab-Dis 4 mg = 1 tab(s), Oral, q8hr, PRN Nausea/Vomiting, # 16 tab(s), Refills(s) 0, Pharmacy: [facility]/pharmacy #[id number], 160, cm, 07/26/23 9:44:00 EDT, Height/Length Dosing, 61.7, kg, 07/26/23 9:44:00 EDT, Weight Dosing Start Date: 07/26/23 Status: Ordered Start: 05-31-2023 take 1 tablet by amber th three times daily Zofran ODT 4 mg Tab-Dis 4 mg = 1 tab(s), Oral, TID, # 15 tab(s), Refills(s) 0, Pharmacy: [facility] #[id number], 160, cm, 05/31/23 8:12:00 EST, Height/Length Dosing, [...] day, # 14 tab(s), Refills(s) 0, Pharmacy: [facility] #[id number], 160, cm, 11/24/23 11:59:00 EDT, Height/Length Dosing, 62, kg, 11/24/23 11:59:00 EDT, Weight Dosing Start Date: 11/24/23 Status: Ordered Start: 06-14-2023 End: 09-04-2023 take 1 tablet by mouth twice daily Naprosyn 500 mg Tab 500 mg = 1 tab(s), Oral, BID, # 20 tab(s), Refills(s) 0, Pharmacy: [facility] #[id number], 160, cm, 06/14/23 8:56:00 EST, Height/Length Dosing, 65, kg, 06/14/23 8:56:00 EST, Weight Dosing Start Date: 06/14/23 Status: Ordered Start: 05-28-2023 naproxen 375 m g Tab Refills(s) 0 Start Date: 05/28/23 Status: Ordered Start: 04-11-2023 take 1 tablet by amber th every twelve hours naproxen 375 mg Tab 375 mg = 1 tab(s), Oral, q12hr, # 14 tab(s), Refills(s) 0, Pharmacy: [facility] #[id number], 157, cm, 04/11/23 11:07:00 EST, Height/Length Dosing, 57.6, kg, 04/11/23 11:07:00 EST, Weight Dosing Start Date: 04/11/23 Status: Ordered NIFEdipine 10 mg oral capsule (1 source) Dihydropyridine Calcium Channel Justine Start: 07-19-2021 End: 07-19-2021 10 mg, Oral, EVERY 6 HOURS SCHEDULED (4 times per day), 4 doses, First dose on Fri07/19/21 at 0130, Last dose on 07/19/22 at 2200 penicillin G potassium in d5w IVPB 2.5 Million Units (1 source) Start: 07-19-2021 End: 07-20-2021 penicillin G potassium in d5w IVPB 2.5 Million Units vitamin 27-1 MG tablet 1 tablet (1 source) Start: 07-19-2021 take 1 tablet by mouth once daily 1 tablet, Oral, DAILY, First dose on [facility] 07/19/21 at 0900, Until Discontinued sertraline 100 [...] 2023 ED Clinical Summary ED Clinical Summary [address] [address] ED Clinical Summary Person Information Name: ALEJANDRA REAL [place] Age: 28 Years : 1995 Sex: Female Language: [place] PCP: Krystle Ireland CNP Marital Status: Single Phone: [phone] MRN: Visit Id: Visit Reason: Medical problem - [...] 07:25:53 ADDRESS: [address] [facility] [id number] PHYS DOC NOTES: MEDICAL INFORMATION: Prescriptions Given: New Medications [id number], [address] [place] [id number], [phone] diflunisal (diflunisal 500 mg Tab) 1 Tablets [...] Follow up: With: Address: When: Cristóbal Granados [address] [place] [id number] Business (1) In 3 days 12/02/2023 With: Address: When: Krystle Ireland [address] [place] [address], [address] [place] [address] Business (1) In 3 days DIAGNOSIS: Chronic pain [facility] ED Note-Physicianon 11-29-19 ED Note-Physician ED Note-Physician [...] q12hr, # 20 tab(s), Refills(s) 0, Pharmacy: [facility] #[id number], 160, cm, 11/29/23 6:47:00 EDT, Height/Length Dosing, 60.8, kg, 11/29/23 6:47:00 EDT, Weight Dosing methocarbamol, 750 mg = 1 tab(s), Oral, TID, X 7 day(s), # 21 tab(s), Refills(s) 0, Pharmacy: [facility] #[id number], 160, cm, 11/29/23 6:47:00 EDT, Height/Length Dosing, 60.8, kg, 11/29/23 6:47:00 EDT, Weight Dosing Disposition Plan Discharge Prescription List Prescriptions diflunisal 500 mg Tab, 500 mg= 1 tab(s), Oral, q12hr Robaxin-750 oral tablet, 750 mg= 1 tab(s), Oral, TID Follow-up With When Contact Information Cristóbal Granados In 3 days 12/02/2023 EDT [address] [place] [address]- Business (1) Additional Instructions: Krystle Ireland In 3 days [address] [facility] [address], [address] [place] [address]- Business (1) Additional Instructions: Problem List/Past Medical [...] home: No. (more content not included)... [facility] Comment on above: Result Comment: Elec tronically Signed By: Justo Arias DO\.br\Date and Time Signed: 11/29/23 07:21 EDT ED Patient Education Noteon 11-29-2023 ED Patient Education Note ED Patient Education Note [facility] ED Patient Summaryon 024 ED Patient Summary ED Patient Summary [address] [address] Patient Discharge Instructions Person Information Name: ALEJANDRA REAL Age: 28 Years Arrival Date: 11/29/2023 06:37:53 Discharge Diagnosis: Chronic pain Primary Care Physician: Krystle Ireland CNP Provider Information Primary Provider: Justo Arias DO Advanced Aquatics Director:None The exam and treatment you received in the Emergency Department were for an urgent problem and are not intended as complete care. It is important that you follow up with a doctor, nurse practitioner, or physician?s safety admin assistant for ongoing care. If your symptoms [...] Follow-up Instructions: With: Address: When: Cristóbal Granados [address] [place] [address] Business (1) In 3 days 12/02/2023 With: Address: When: Krystle Ireland [address] [place] [address], [address] [place] [address] Business (1) In 3 days In the event that this physician does not participate in your insurance network, please consult with your insurance company to find a nearby participating provider. Patient Education Materials: A MESSAGE TO ALL PATIENTS REGARDING OPIOIDS PRESCRIPTION OPIOIDS: WHAT YOU NEED TO KNOW Prescription opioids can be used to help relieve [id number] pain and are often prescribed following a [...] care professi (more content not included)... [facility] ED Note-Physicianon 11-28-19 24 ED Note-Physician ED [...] and Complexity of Problems Differential Diagnosis: [] [facility] Data External documents reviewed: [] My EKG [...] day(s), # 7 tab(s), Refills(s) 0, Pharmacy: [facility] #[id number], 160, cm, 11/26/23 10:31:00 EDT, Height/Length Dosing, 62, kg, 11/26/23 10:31:00 EDT, Weight Dosing Splint Application Wrist XR Wrist 3+ Views Right Disposition Plan Patient Discharge Condition Stable Discharge Disposition to home Discharge Prescription List Prescriptions predniSONE 50 mg Tab, 50 mg= 1 tab(s), Oral, Daily Follow-up With When Contact Information Krystle Ireland In 3 days 11/29/2023 EDT [address] [facility], [address] [place] [phone] Business (1) Additional Instructions: Call Dr for diagnosis based follow up Patient Education Tendinitis Wrist Pain, Adult, Vofv-en-Ykap Attestation Patient seen and evaluated by the physician safety admin assistant. Attending physician was present in the emergency department and supervised care. This visit was performed by both the physician and an APC. I performed all aspects of the MDM as documented. This report was transcribed using voice recognition software. Every effort was made to ensure accuracy, however, inadvertently computerized modeling manager mistakes may be present. Appropriate healthcare PPE [...] Medical History (more content not included)... [facility] Comment on above: Result Comment: Elec tronically Signed By: Ulisses Mckinney PA-C\.br\Date and Time Signed: 11/26/23 12:24 EDT\.br\Electronically Co-Signed By: Justo Arias DO\.br\Date and Time Co-Signed: 11/28/23 07:48 EDT .Interpretation:on 4 HCV Ab IA Ql Comment Invalid Interpretation Code [facility] Comment on above: Result Comment: Not infected with HCV unless early or acute infection is suspected (which may be delayed in an immunocompromised individual), or other evidence exists to indicate HCV infection. Performed at: [address] [id number] PhD Harinder Fiore Performed By: #### 2 [id number] #### [facility] [address] [id number] Acute Hepatitis A B C Panelo n 11-26-2023 HAV IgM IA Ql Negative Invalid Interpretation Code Negative [facility] Comment on above: Performed By: #### 3 [id number] #### [facility] [address] [place] [address] HBV core IgM IA Ql Negative Invalid Interpretation Code Negative [facility] Comment on above: Performed By: #### 3 [id number] #### [facility] [address] [place] [address] HBV surface Ag IA Ql Negative Invalid Interpretation Code Negative [facility] Comment on above: Performed By: #### 3 [id number] #### [facility] [address] [place] [address] HCV IgG IA Ql Non-Reactive Invalid Interpretation Code Non Reactive [facility] Comment on above: Result Comment: Perf ormed at: [facility] [address] [id number] PhD Harinder Fiore Performed By: #### 3 [id number] #### [facility] [address] [place] [id number] ED Clinical Summaryon 2023 ED Clinical Summary ED Clinical Summary [address] [address] ED Clinical Summary Person Information Name: ALEJANDRA REAL Suzi/[facility] Age: 28 Years : 1995 Sex: Female Language: Equatorial Guinean PCP: Krystle Ireland CNP Marital Status: Single Phone: [phone] Visit Id: Visit Reason: Hand pain-swelling; RIGHT [...] 11:47:19 ADDRESS: [address] [facility] [id number] PHYS DOC NOTES: MEDICAL INFORMATION: Prescriptions Given: New Medications [id number], [address] [place], [place] [id number], [phone] predniSONE (predniSONE 50 mg Tab) 1 Tablets [...] EDUCATION INFORMATION: Instructions: Tendinitis; Wrist Pain, Adult, Qpsh-cj-Ewqv Follow up: With: Address: Luis: Krystle Ireland [address] [place] [address], [facility], [address] [place] [address] Business (1) In 3 days 11/29/2023 Comments: Call Dr for diagnosis based follow up DIAGNOSIS: Right wrist sprain Normal [facility] ED Patient Summaryon 024 ED Patient Summary ED Patient Summary [address] [address] Patient Discharge Instructions Person Information Name: ALEJANDRA REAL Age: 28 Years Arrival Date: 11/26/2023 10:19:14 Discharge Diagnosis: Right wrist sprain Primary Care Physician: Krystle Ireland CNP Provider Information Primary Provider: Justo Arias DO Advanced Aquatics Director:None The exam and treatment you received in the Emergency Department were for an urgent problem and are not intended as complete care. It is important that you follow up with a doctor, nurse practitioner, or physician?s safety admin assistant for ongoing care. If your symptoms become worse or you do not improve as expected and you are unable to reach your usual health care provider, you should return to the Emergency Department. We are available 24 hours a day. ALEJANDRA REAL has been given the following list of patient education materials, prescriptions and follow-up instructions: Follow-up Instructions: With: Address: When: Krystle Beka [address] [place] [address], [address] [place] [phone] uberall ([employer] In 3 days 11/29/2023 Comments: Call Dr for diagnosis based follow up In the event that this physician does not participate in your insurance network, please consult with your insurance company to find a nearby participating provider. 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 [facility] HIV Screen 4th Generation wR fxon 11-26-2023 HIV 1+2 Ab+HIV1 p24 Ag IA Ql Non-Reactive Invalid Interpretation Code Non Reactive [facility] Comment on above: Order Comment: in la b Result Comment: HIV- 1/HIV-2 antibodies and HIV-1 p24 antigen were NOT detected. There is no laboratory evidence of HIV infection. HIV Negative Performed at: [facility] [id number] PhD Harinder Fiore Performed By: #### 9 [id number] #### [facility] [address] [place] [address] RPR with Conf Rfxon 11-26-19 24 Reagin Ab RPR Ql (S) Non-Reactive Invalid Interpretation Code Non Reactive [facility] Comment on above: Result Comment: Perf ormed at: [facility] [address] [id number] PhD Jeetserenity Marcycorona Performed By: #### 1 [id number] #### [facility] [address] [place] [address] XR Wrist 3+ Views Righton XR Wrist [...] mGy = . DAP = . Normal [facility] ED Clinical Summaryon 2023 ED Clinical Summary ED Clinical Summary [address] [address] ED Clinical Summary Person Information Name: ALEJANDRA REAL [place] Age: 28 Years : 1995 Sex: Female Language: [place] PCP: Krystle Ireland CNP Marital Status: Single Phone: [phone] Visit Id: Visit Reason: Nausea; Chronic pain; [...] 11/24/2023 13:14:00 11/24/2023 13:14:00 11/24/2023 13:14:00 ADDRESS: [employer] [address] [facility] [id number] PHYS DOC NOTES: MEDICAL INFORMATION: Prescriptions Given: New Medications [id number], [address] [facility] [address] [place], [place] [id number], [phone] naproxen (naproxen 500 mg Tab) 1 Tablets [...] Pain, Adult Follow up: With: Address: When: Krystle Ireland [address] [place] [address], [address] [place] [address] Business (1) In 3 days DIAGNOSIS: Chronic pelvic pain in female; Other chronic pain [facility] ED Note-Physicianon 11-24-19 ED Note-Physician ED Note-Physician Basic Information Time Seen: Hugo MARIA Justo 11/24/2023 11:59 Chief Complaint Pt was [...] 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 Therefore she will be prescribed the tramadol and given a note for work and given naproxen as well follow-up in the outpatient setting. I, Dr. Arias had a zclg-ek-bpcv interaction with the patient. I personally performed [...] day(s), # 9 tab(s), Refills(s) 0, Pharmacy: [facility]/pharmacy #[id number], 160, cm, 11/24/23 11:59:00 EDT, Height/Length Dosing, 62, kg, 11/24/23 11:59:00 EDT, Weight Dosing Orders: naproxen, 500 mg = 1 tab(s), Oral, BID, Take one tab by mouth two times a day, # 14 tab(s), Refills(s) 0, Pharmacy: [facility]/pharmacy #[id number], 160, cm, 11/24/23 11:59:00 EDT, Height/Length Dosing, 62, kg, 11/24/23 11:59:00 EDT, Weight Dosing Disposition Plan Discharge Prescription List Prescriptions naproxen 500 mg Tab, 500 mg= 1 tab(s), Oral, BID Ultram 50 mg Tab, 50 mg= 1 tab(s), Oral, q8hr Follow-up With When Contact Information Krystle Ireland In 3 days [address] [facility], [address] Business (1) Additional Instructions: Patient Education [...] in hous (more content not included)... Normal [facility] Comment on above: Result Comment: Elec tronically Signed By: Justo Arias DO\.br\Date and Time Signed: 11/24/23 12:57 EDT ED Patient Summaryon 024 ED Patient Summary ED Patient Summary [facility] [address] [place], [place] [address] Patient Discharge Instructions Person Information Name: ALEJANDRA REAL Age: 28 Years Arrival Date: 11/24/2023 11:46:11 Discharge Diagnosis: Chronic pelvic pain in female; Other chronic pain Primary Care Physician: Krystle Ireland CNP Provider Information Primary Provider: Justo Arias DO Advanced Aquatics Director:None The exam and treatment you received in the Emergency Department were for an urgent problem and are not intended as complete care. It is important that you follow up with a doctor, nurse practitioner, or physician?s safety admin assistant for ongoing care. If your symptoms become worse or you do not improve as expected and you are unable to reach your usual health care provider, you should return to the Emergency Department. We are available 24 hours a day. ALEJANDRA REAL has been given the following list of patient education materials, prescriptions and follow-up instructions: Follow-up Instructions: With: Address: When: Krystle Ireland [address] [facility], [facility], [address] [place] [address] Business (1) In 3 days In the event that this physician does not participate in your insurance network, please consult with your insurance company to find a nearby participating provider. 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 Normal [facility] Heart and Vascular Office/Cl inic Noteon 11-24-2023 [...] to go (more content not included)... Normal [facility] Comment on above: Result Comment: Elec tronically [...] findings. Lower thorax: Noncontributory. Report Ordering Provider: Giulle Will FINAL REPORT Dictated: 11/05/2023 7:59 am Dima Abdalla MD Signed (Electronic Signature): 11/05/2023 7:59 am Signed by: Dima Abdalla MD Transcribed by: FAHAD Technologist: CELIA Technical Comments GFR (mL/min/1/73m2) na Contrast: Isovue 300 Contrast amount in ml's: 100 Normal [facility] ED Clinical Summaryon 2023 ED Clinical Summary ED Clinical Summary [place] [id number] ED Clinical Summary Person Information Name: ALEJANDRA REAL Suzi/[facility] Age: 28 Years : 1995 Sex: Female Language: [place] PCP: Krystle Ireland CNP Marital Status: Single Phone: [phone] Visit Id: Visit Reason: Nausea; Abdominal pain; [...] 11/05/2023 09:01:54 11/05/2023 09:01:54 11/05/2023 09:01:54 ADDRESS: [address] [place] [address] [place] [id number] [facility] DOC NOTES: MEDICAL INFORMATION: Prescriptions Given: [...] Pain, Adult Follow up: With: Address: When: Krystle Ireland [address] [place] [address], [address] [place] [phone] uberall (1) In 3 days 11/08/2023 Comments: Call [...] female pelvic pain; Other chronic pain [facility] ED Note-Physicianon 11-05-19 ED Note-Physician ED Note-Physician [...] patient was discharged home. Darren Lomax DO, FAAEM Assessment/Plan 1. Left lower quadrant abdominal pain [...] data a (more content not included)... Normal [facility] Comment on above: Result Comment: Elec tronically Signed By: Guille Will MD\.br\Date and Time Signed: 11/10/23 07:48 EDT\.br\Electronically Co-Signed By: Darren Lomax DO\.br\Date and Time Co-Signed: 11/05/23 09:11 EDT ED Patient Summaryon 024 ED Patient Summary ED Patient Summary [address] [address] Patient Discharge Instructions Person Information Name: ALEJANDRA REAL Age: 28 Years Arrival Date: 11/04/2023 23:45:14 Discharge Diagnosis: 1:Left lower quadrant abdominal pain; Chronic female pelvic pain; Other chronic pain Primary Care Physician: Krystle Ireland CNP Provider Information Primary Provider: Guille Will MD Advanced Aquatics Director:None The exam and treatment you received in the Emergency Department were for an urgent problem and are not intended as complete care. It is important that you follow up with a doctor, nurse practitioner, or physician?s safety admin assistant for ongoing care. If your symptoms become worse or you do not improve as expected and you are unable to reach your usual health care provider, you should return to the Emergency Department. We are available 24 hours a day. ALEJANDRA REAL has been given the following list of patient education materials, prescriptions and follow-up instructions: Follow-up Instructions: With: Address: When: Krystle Ireland [address] [place] [address], [address], [address] [place] [address] Business (1) In 3 days [...] opioids can be used to help relieve ljpfjbjd-cw-uglnri pain and are often prescribed following a [...] o Work (more content not included)... [facility] HEMATOLOGYOrdered By: SYSTEM SYSTEM on 11-05-2023 Basophils/100 [...] Ql Negative (11/05/23 1:37 AM) Normal [facility] Man Sero URINALYSISOrdered By: SYSTEM SYSTEM on [...] that meet specific criteria set forth by [facility]. Glucose Ql (U) Negative Normal Negativemg/d [...] Invalid Interpretation Code 5.0 - 9.0 [facility] UA Auto SS Protein Ql (U) Negative Normal Negativemg/d L [facility] Auto SS Specific gravity (U) [Rel density] 1.024 *NA* (11/05/23 1:41 AM) Invalid Interpretation Code 1.005 - 1.030 [facility]A Auto SS Urobilinogen (U) [Mass/Vol] Negative Normal Negativemg/d L [facility] UA Auto SS URINALYSISOrdered By: Guille tavarez on 11-05-2023 UA Spec Desc Clean Catch (11/05/23 1:41 AM) Normal [facility]A Auto SS Work Phone: [place] Pelvis [...] ILA Technical Comments Transabdominal Ultrasound Performed Normal [facility] eGFRon 07-10-2024 eGFR 102 mL/min/1.73 m2 Normal >=59 [facility] Comment on above: Order Comment: Order added by Discern Expert. Performed By: #### 1 [id number] #### [facility] [address] [place] [address] Ambulatory Visit Summaryon 0 2023 Ambulatory Visit Summary Ambulatory Visit Summary ALEJANDRA REAL :1995 Visit Date:2023 Ambulatory Visit Instructions Your Diagnosis Abdominal pain in female Lumbar back pain Your Care Team Attending Physician - Shameka LUKE, Suman Ford Primary Care Physician - Krystle Ireland CNP This Is Your Medications List [...] choosing us for your care. Normal [facility] Bilirubin Test strip Ql (U)O rdered By: PROVIDER TEMP on 2023 Bilirubin Ql (U) Negative Negative [facility] Color of Urine by AutoOrdere d By: PROVIDER TEMP on 2023 Color (U) Colorless Normal Yellow Comment on above: Order Comment: Name Collection Type:: Voided Performed By: #### C MP, LIPASE, CBC #### [facility] [address] [place] [address] Family Medicine Office/Clini c Noteon 2023 Family [...] day(s), # 14 tab(s), Refills(s) 0, Pharmacy: [facility]/pharmacy #[id number], 160, cm, 11/02/23 14:02:00 EDT, Height/Length Dosing, 62, kg, 11/02/23 14:02:00 EDT, Weight Dosing Portions of this record may have been created with voice recognition artificial intelligence software, specifically [employer], [employer] and or [employer]. Substitutions may have occurred due to the [...] cartilage (1 (more content not included)... Normal [facility] Comment on above: Result Comment: Elec tronically Signed By: Shameka LUKE, Suman Ford\.tesha\Date and Time Signed: 11/02/23 14:56 EDT Glucose [Mass/volume] in Uri ne by Test stripOrdered By: PROVIDER TEMP on 2023 Glucose Test strip (U) [Mass/Vol] Normal mg/dL Normal HCG ( test) IA.rapi d Ql (U)Ordered By: PROVIDER TEMP on 2023 HCG ( test) Ql (U) Negative HCG,Urineon 2023 Beta HCG ( test) Ql (U) Negative Normal [facility] Comment on above: Order Comment: Name Collection Type:: Voided Result Comment: PERF ORMED BY: [place] [address] PATHOLOGIST DEVELOPER PROGRAMMER ANALYST ALEXANDER SANDERS M.D. Performed By: #### C MP, LIPASE, CBC #### [facility] [address] [place] [address] Hemoglobin Test strip Ql (U) Ordered By: PROVIDER TEMP on 2023 Hemoglobin Ql (U) Negative Negative [facility] Ketones [Presence] in Urine by Test stripOrdered By: PROVIDER TEMP on 2023 Ketones Ql (U) Negative Normal Negative Comment on above: Order Comment: Name Collection Type:: Voided Performed By: #### C MP, LIPASE, CBC #### [facility] [address] [place], [place] [id number] [place] Leukocyte esterase [Presence ] in Urine by Test stripOrdered By: PROVIDER TEMP on 2023 Leukocyte esterase Test strip Ql (U) Negative Normal Negative Comment on above: Order Comment: Name Collection Type:: Voided Performed By: #### C MP, LIPASE, CBC #### [facility] [address] [place], [place] [id number] [place] Nitrite Test strip Ql (U)Ord ered By: PROVIDER TEMP on 2023 Nitrite Ql (U) Negative Negative Protein Test strip (U) [Mass /Vol]Ordered By: PROVIDER TEMP on 2023 Protein (U) [Mass/Vol] Negative Negative [facility] Specific gravity Test strip (U) [Rel density]Ordered By: PROVIDER TEMP on 2023 Specific gravity (U) [Rel density] 1.012 1.001-1.030 Urinalysison 2023 Bilirubin,Urine Negative Normal Negative [facility] Comment on above: Order Comment: Name Collection Type:: Voided Performed By: #### C MP, LIPASE, CBC #### [facility] [address] Glucose Ql (U) Normal Normal Normal [facility] Comment on above: Order Comment: Name Collection Type:: Voided Performed By: #### C MP, LIPASE, CBC #### [facility] [address] [place] [address] Nitrite,Urine Negative Normal Negative [facility] Comment on above: Order Comment: Name Collection Type:: Voided Performed By: #### C MP, LIPASE, CBC #### [facility] [address] [place] [address] [place] Occult Blood,Urine Negative Normal Negative [facility] Comment on above: Order Comment: Name Collection Type:: Voided Performed By: #### C MP, LIPASE, CBC #### [address] Protein,Urine Negative Normal Negative [facility] Comment on above: Order Comment: Name Collection Type:: Voided Performed By: #### C MP, LIPASE, CBC #### [facility] [address] [place] [id number] [place] Specificy [place],Urine 1.012 Normal 1.001-1.030 [facility] Comment on above: Order Comment: Name Collection Type:: Voided Performed By: #### C MP, LIPASE, CBC #### [facility] [address] [place] [address] Urobilinogen,Urine Normal Normal Normal [facility] Comment on above: Order Comment: Name Collection Type:: Voided Performed By: #### C MP, LIPASE, CBC #### [facility] [address] [place] [id number] [facility] Urine appearanceOrdered By: PROVIDER TEMP on 2023 Appearance (U) Clear Normal Clear Comment on above: Order Comment: Name Collection Type:: Voided Performed By: #### C MP, LIPASE, CBC #### [facility] [address] [place] [id number] [facility] Urobilinogen Test strip (U) [Mass/Vol]Ordered By: PROVIDER TEMP on 2023 Urobilinogen (U) [Mass/Vol] Normal mg/dL Normal pH of Urine by Test stripOrd ered By: PROVIDER TEMP on 2023 pH (U) 7.0 [pH] Normal 5.0-9.0 Comment on above: Order Comment: Name Collection Type:: Voided Performed By: #### C MP, LIPASE, CBC #### [facility] [address] [place], [place] [id number] [facility] ED Clinical Summaryon 2023 ED Clinical Summary ED Clinical Summary [place] [id number] ED Clinical Summary Person Information Name: ALEJANDRA REAL Suzi/[facility] Age: 27 Years : 1995 Sex: Female Language: [place]an PCP: Krystle Ireland CNP Marital Status: Single Phone: [phone] Visit Id: Visit Reason: Nausea; Abdominal pain; [...] 11/01/2023 20:05:59 11/01/2023 20:05:59 11/01/2023 20:05:59 ADDRESS: [address] [place] [id number] [facility] DOC NOTES: MEDICAL INFORMATION: Prescriptions Given: [...] Follow up: With: Address: When: Fatoumata Gooden [address] [place] [address] Business (1) In 3 days 11/04/2023 With: Address: When: Krystle Ireland [address] [place] [address], [address] [place] [phone] Business (1) In 3 days DIAGNOSIS: AP (abdominal pain) Normal [facility] ED Note-Physicianon 11-01-19 ED Note-Physician ED Note-Physician [...] and Complexity of Problems Differential Diagnosis: [] [facility] Data External documents reviewed: N/A My EKG [...] Gooden In 3 days 11/04/2023 EDT [address] [place] [address]- Business (1) Additional Instructions: Krystle Ireland In 3 days [address] [facility], [address] [place] [address]- Business (1) Additional Instructions: Patient Education Abdominal [...] with Si (more content not included)... Normal [facility] Comment on above: Result Comment: Elec tronically [...] day(s), # 5 tab(s), Refills(s) 0, Pharmacy: [facility]/pharmacy #[id number], 160, cm, 10/31/23 12:45:00 EDT, Height/Length Dosing, 63.2, kg, 10/31/23 12:45:00 EDT, Weight Dosing Medications Administered Given lfnckv6Dcwbukicz [F], 30 mg, IntraMuscular Disposition Plan Patient Discharge Condition Stable Discharge Disposition Home Discharge Prescription List Prescriptions predniSONE 50 mg Tab, 50 mg= 1 tab(s), Oral, Daily Follow-up With When Contact Information Follow-up with Dr. Gooden and pain management as scheduled. In 3 days 11/03/2023 EDT Additional Instructions: Krystle Ireland In 3 days [address] [facility], [address] [place] [phone]- Business (1) Additional Instructions: Patient Education Abdominal Pain, Adult, Woho-jo-Bwgh Attestation Patient seen and evaluated by the physician safety admin assistant. Attending physician was present in the emergency department and supervised care. This visit was performed by both the physician and an APC. I performed all aspects of the MDM as documented. This report was transcribed using voice recognition software. Every effort was made to ensure accuracy, however, inadvertently computerized modeling manager mistakes may be present. Appropriate healthcare PPE [...] 25.0-25.9,adult Dysuria (more content not included)... Normal [facility] Comment on above: Result Comment: Elec tronically Signed By: France Day PA-C\.br\Date and Time Signed: 10/31/23 17:23 EDT\.br\Electronically Co-Signed By: Justo Arias DO\.br\Date and Time Co-Signed: 11/01/23 07:47 EDT ED Patient Summaryon 024 ED Patient Summary ED Patient Summary [address] [address] Patient Discharge Instructions Person Information Name: ALEJANDRA REAL Age: 27 Years Arrival Date: 11/01/2023 19:33:16 Discharge Diagnosis: AP (abdominal pain) Primary Care Physician: Krystle Ireland CNP Provider Information Primary Provider: Bruno Jara DO Advanced Aquatics Director:Ted The exam and treatment you received in the Emergency Department were for an urgent problem and are not intended as complete care. It is important that you follow up with a doctor, nurse practitioner, or physician?s safety admin assistant for ongoing care. If your symptoms [...] Follow-up Instructions: With: Address: When: Fatoumata Gooden [address] [place] [phone] Business (1) In 3 days 11/04/2023 With: Address: When: Krystle Ireland [address] [place] [address], [facility] [address], [address] [place] [address] Business (1) In 3 days In the event that this physician does not participate in your insurance network, please consult with your insurance company to find a nearby participating provider. Patient Education Materials: Abdominal Pain, Adult A MESSAGE TO ALL PATIENTS REGARDING OPIOIDS PRESCRIPTION OPIOIDS: WHAT YOU NEED TO KNOW Prescription opioids can be used to help relieve sohbltvt-ze-jeewag pain and are often prescribed following a [...] with addicti (more content not included)... Normal [facility] ED Clinical Summaryon 2023 ED Clinical Summary ED Clinical Summary [place] [id number] ED Clinical Summary Person Information Name: ALEJANDRA REAL [facility] Age: 27 Years : 1995 Sex: Female Language: [place] PCP: Krystle Ireland CNP Marital Status: Single Phone: [phone] Visit Id: Visit Reason: Nausea; Abdominal pain; [...] 14:04:07 ADDRESS: [address] [facility] [id number] PHYS DOC NOTES: MEDICAL INFORMATION: Prescriptions Given: New Medications [id number], [address] [facility] [place], [place] [id number], [phone] predniSONE (predniSONE 50 mg Tab) 1 Tablets [...] PATIENT EDUCATION INFORMATION: Instructions: Abdominal Pain, Adult, Ohag-lp-Sczb Follow up: With: Address: When: Follow-up with Dr. Gooden and pain management as scheduled. In 3 days 11/03/2023 With: Address: When: Krystle Ireland [address] [place] [address], [facility], [address] [place] [address] Business (1) In 3 days DIAGNOSIS: Chronic pain disorder Normal [facility] ED Patient Summaryon 024 ED Patient Summary ED Patient Summary [address] [address] Patient Discharge Instructions Person Information Name: ALEJANDRA REAL Age: 27 Years Arrival Date: 10/31/2023 12:38:24 Discharge Diagnosis: Chronic pain disorder Primary Care Physician: Krystle Ireland CNP Provider Information Primary Provider: Justo Arias DO Advanced Aquatics Director:Fracne Day PA-C. The exam and treatment you received in the Emergency Department were for an urgent problem and are not intended as complete care. It is important that you follow up with a doctor, nurse practitioner, or physician?s safety admin assistant for ongoing care. If your symptoms [...] In 3 days 11/03/2023 With: Address: When: Krystle Ireland [address] [place] [address], [address] [place] [phone] [facility] (1) In 3 days In the event that this physician does not participate in your insurance network, please consult with your insurance company to find a nearby participating provider. Patient Education Materials: Abdominal Pain, Adult, Xcov-ru-Oymf A MESSAGE TO ALL PATIENTS REGARDING OPIOIDS PRESCRIPTION OPIOIDS: WHAT YOU NEED TO KNOW Prescription opioids can be used to help relieve anlubsjx-ya-nqwuwj pain and are often prescribed following a [...] struggling wi (more content not included)... Normal [facility] UA with Cult Rflxon 10-31-19 24 Bilirubin Ql (U) Negative Normal Negative [facility] Comment on above: Performed By: #### 4 [id number] #### [facility] [address] [place] [address] Clarity (U) Clear Normal Clear [facility] Comment on above: Performed By: #### 4 [id number] #### [facility] [address] [place] [address] Color (U) Light-Yellow Normal Yellow [facility] Comment on above: Result Comment: Micr oscopic readings are only performed on those samples that meet specific criteria set forth by [facility]. Performed By: #### 4 [id number] #### [facility] [address] [place] [address] Glucose Ql (U) Negative Normal Negative [facility] Comment on above: Performed By: #### 4 [id number] #### [facility] [address] [place] [address] Hemoglobin Auto test strip (U) [Mass/Vol] Negative Normal Negative [facility] Comment on above: Performed By: #### 4 [id number] #### [facility] [address] [place] [address] Ketones Auto test strip Ql (U) Negative Normal Negative [facility] Comment on above: Performed By: #### 4 [id number] #### [facility] [address] [place] [address] Leukocyte esterase Auto test strip Ql (U) Negative Normal Negative [facility] Comment on above: Performed By: #### 4 [id number] #### [facility] [address] [place] [address] Nitrite Auto test strip Ql (U) Negative Normal Negative [facility] Comment on above: Performed By: #### 4 [id number] #### [facility] [address] [place] [address] pH (U) 6.0 [pH] Invalid Interpretation Code 5.0-9.0 [facility] Comment on above: Performed By: #### 4 [id number] #### [facility] [address] [place] [address] Protein Ql (U) Negative Normal Negative [facility] Comment on above: Performed By: #### 4 [id number] #### [facility] [address] [place] [address] Specific gravity (U) [Rel density] 1.017 Invalid Interpretation Code 1.005-1.030 [facility] Comment on above: Performed By: #### 4 [id number] #### [facility] [address] [place] [address] Urobilinogen (U) [Mass/Vol] Negative Normal Negative [facility] Comment on above: Performed By: #### 4 [id number] #### [facility] [address] [place] [address] Type of Urine collection method Clean Catch Normal [facility] Comment on above: Performed By: #### 4 [id number] #### [facility] [address] [place] [id number] URINALYSISOrdered By: SYSTEM SYSTEM on 10-31-2023 Bilirubin Ql (U) Negative Normal Negativemg/ d L [facility] U[facility] Auto SS Clarity (U) Clear (10/31/23 12:50 PM) Normal Clear [facility] UA Auto SS Color (U) Light-Yellow 1 (10/31/23 12:50 PM) Normal Yellow [facility] Auto SS Comment on above: Interpretive Data: M icroscopic readings are only performed on those samples that meet specific criteria set forth by [facility]. Glucose Ql (U) Negative Normal Negativemg/d [...] Invalid Interpretation Code 5.0 - 9.0 [facility] UA Auto SS Protein Ql (U) Negative Normal Negativemg/d L [facility]A Auto SS Specific gravity (U) [Rel density] 1.017 *NA* (10/31/23 12:50 PM) Invalid Interpretation Code 1.005 - 1.030 [facility] UA Auto SS Urobilinogen (U) [Mass/Vol] Negative Normal Negativemg/d L [facility] UA Auto SS URINALYSISOrdered By: Donna Coelho on 10-31-2023 UA Spec Desc Clean Catch (10/31/23 12:50 PM) Normal [facility] UA Auto SS ED Clinical Summaryon 2023 ED Clinical Summary ED Clinical Summary [place] [id number] ED Clinical Summary Person Information Name: ALEJANDRA REAL Suzi/[facility] Age: 27 Years : 1995 Sex: Female Language: Equ[place] PCP: Krystle Ireland CNP Marital Status: Single Phone: [phone] Visit Id: Visit Reason: Pelvic pain; Chronic [...] 10/30/2023 16:58:39 10/30/2023 16:58:39 10/30/2023 16:58:39 ADDRESS: [address] [place] [address] [address] [facility] [id number] PHYS DOC NOTES: MEDICAL INFORMATION: Prescriptions Given: [...] management as already scheduled With: Address: When: Krystle Ireland [address] [place] [address], 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 The attending physician was in the [...] - O (more content not included)... Normal [facility] Comment on above: Result Comment: Elec tronically Signed By: Siomara Nettles PA-C\.br\Date and Time Signed: 10/30/23 16:35 EDT\.br\Electronically Co-Signed By: Mary Jane Palm M.D.\.br\Date and Time Co-Signed: 10/30/23 17:08 EDT ED Patient Summaryon ED Patient Summary ED Patient Summary [place] [address] Patient Discharge Instructions Person Information Name: ALEJANDRA REAL Age: 27 Years Arrival Date: 10/30/2023 16:04:18 Discharge Diagnosis: 1:Chronic pain Primary Care Physician: Krystle Ireland CNP Provider Information Primary Provider: Mary Jane Palm M.D. Advanced Aquatics Director:Siomara Nettles PA-C The exam and treatment you received in the Emergency Department were for an urgent problem and are not intended as complete care. It is important that you follow up with a doctor, nurse practitioner, or physician?s safety admin assistant for ongoing care. If your symptoms [...] management as already scheduled With: Address: When: Krystle Ireland [address] [place] [address], [address] [place] [phone] Business (1) In 3 days In the event that this physician does not participate in your insurance network, please consult with your insurance company to find a nearby participating provider. Patient Education Materials: Pelvic Pain, Female A MESSAGE TO ALL PATIENTS REGARDING OPIOIDS PRESCRIPTION OPIOIDS: WHAT YOU NEED TO KNOW Prescription opioids can be used to help relieve oblaldio-nv-txhksp pain and are often prescribed following a [...] health ca (more content not included)... Normal [facility] ED Clinical Summaryon 2023 ED Clinical Summary ED Clinical Summary [place] [id number] ED Clinical Summary Person Information Name: ALEJANDRA REAL [place] Age: 27 Years : 1995 Sex: Female Language: [place] PCP: Krystle Ireland CNP Marital Status: Single Phone: [phone] MRN: Visit Id: Visit Reason: Chronic pain; [...] 14:57:20 ADDRESS: [address] [facility] [id number] PHYS DOC NOTES: MEDICAL INFORMATION: Prescriptions Given: Medications to Continue Taking That Have Changed [id number], [address] [place], [place] [id number], [phone] START: tramadol (traMADOL 50 mg Tab) 1 Tablets By Mouth every 6 hours as needed for pain for 3 Days. Refills: 0. [id number], [address] [place], [place] [id number], [phone] START: tramadol (traMADOL 50 mg Tab) 1 [...] Pain, Adult Follow up: With: Address: When: Krystle Ireland [address] [place] [address], [facility], [address] [place] [address] Business (1) In 3 days DIAGNOSIS: Chronic pain in female pelvis; Other chronic pain Normal [facility] ED Note-Physicianon 10-25-19 ED Note-Physician ED Note-Physician [...] and Complexity of Problems Differential Diagnosis: [] [facility] Data External documents reviewed: [] My EKG [...] day(s), # 12 tab(s), Refills(s) 0, Pharmacy: [facility] #[id number], 160, cm, 10/25/23 13:44:00 EDT, Height/Length Dosing, 65, kg, 10/25/23 13:44:00 EDT, Weight Dosing tramadol, 50 mg = 1 tab(s), Oral, q6hr, PRN for pain, X 3 day(s), # 12 tab(s), Refills(s) 0, Pharmacy: [id number], 160, cm, 10/25/23 13:44:00 EDT, Height/Length Dosing, 65, kg, 10/25/23 13:44:00 EDT, Weight Dosing Disposition Plan Patient Discharge Condition Stable Discharge Disposition To home Discharge Prescription List Prescriptions traMADOL 50 mg Tab, 50 mg= 1 tab(s), Oral, q6hr, PRN traMADOL 50 mg Tab, 50 mg= 1 tab(s), Oral, q6hr, PRN Follow-up With When Contact Information Krystle Ireland In 3 days [address] [facility], [address] [place] [phone]- Business (1) Additional Instructions: Patient Education Chronic Pain, Adult Attestation Patient seen and evaluated by the physician safety admin assistant. Attending physician was present in the emergency department and supervised care. This visit was performed by both the physician and an APC. I performed all aspects of the MDM as documented. This report was transcribed using voice recognition software. Every effort was made to ensure accuracy, however, inadvertently computerized modeling manager mistakes may be present. Appropriate healthcare PPE [...] of complications. (Independen (more content not included)... [facility] Comment on above: Result Comment: Elec tronically Signed By: Ulisses Mckinney PA-C\.br\Date and Time Signed: 10/25/23 15:22 EDT\.br\Electronically Co-Signed By: Darren Lomax DO\.br\Date and Time Co-Signed: 10/25/23 15:24 EDT ED Patient Summaryon 024 ED Patient Summary ED Patient Summary [place] [address] Patient Discharge Instructions Person Information Name: ALEJANDRA REAL Age: 27 Years Arrival Date: 10/25/2023 13:28:13 Discharge Diagnosis: Chronic pain in female pelvis; Other chronic pain Primary Care Physician: Krystle Ireland CNP Provider Information Primary Provider: Darren Lomax DO Advanced Aquatics Director:None The exam and treatment you received in the Emergency Department were for an urgent problem and are not intended as complete care. It is important that you follow up with a doctor, nurse practitioner, or physician?s safety admin assistant for ongoing care. If your symptoms become worse or you do not improve as expected and you are unable to reach your usual health care provider, you should return to the Emergency Department. We are available 24 hours a day. ALEJANDRA REAL has been given the following list of patient education materials, prescriptions and follow-up instructions: Follow-up Instructions: With: Address: When: Krystle Ireland [address] [place] [address], [address] [place] [phone] Business (1) In 3 days In the event that this physician does not participate in your insurance network, please consult with your insurance company to find a nearby participating provider. 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 Normal [facility] ED Note-Physicianon 10-24-19 ED Note-Physician ED Note-Physician [...] 12 tab(s), Refills(s) 0, Pharmacy: [id number], 160, cm, 10/21/23 18:20:00 EDT, Height/Length Dosing, [...] Granados In 3 days 10/24/2023 EDT [address] Business (1) Additional Instructions: Pain Clinic: [facility] [phone] In 3 days 10/24/2023 EDT Additional Instructions: Krystle Ireland In 3 days [address] [facility], [address] [place] [address]- Business (1) Additional Instructions: Patient Education Pelvic Pain, Female Attestation Patient seen and evaluated by the physician safety admin assistant. Attending physician was present in the emergency department and supervised care. This visit was performed by both the physician and an APC. I performed all aspects of the MDM as documented. This report was transcribed using voice recognition software. Every effort was made to ensure accuracy, however, inadvertently computerized modeling manager mistakes may be present. Appropriate healthcare PPE was used in evaluating this patient. The patient was placed in a mask. The healthcare provider was wearing mask, gloves, and utilizing proper hand hygiene. All equipment was properly cleansed. I performed a substantive part of the MDM during the patient?s E/M visit. I pers (more content not included)... Normal [facility] Comment on above: Result Comment: Elec tronically Signed By: Juancho Colón PA-C\.br\Date and Time Signed: 10/21/23 20:37 EDT\.br\Electronically Co-Signed By: Justo Arias DO\.br\Date and Time Co-Signed: 10/24/23 07:16 EDT Coding Summary.on 10-22-2023 Coding Summary. GJLVXwgs57RYy6uMp+PG h lYWQ+AZ1WVCQhW99czRIx xT8qC0TSHGiARvnoRIKUF SzOFgThuaMkDK7urUFjTZ Ju IC8+PS2oDROoDqemhUDdh 8E6rKM1H75rnx5xOMnmlK R5BXDbIeRryccny1uthQp 6IDcuNmluOyBt XNLrpU03EFB3jC25Ej59w SIjkTUrh2komJs0YmOkVG FzJWB9rDcbNFtql8WpZZP nP03llBNmb1A8 GEIpqQrqjMKpVeEnjDY5q Q5sYSykduhgo5givegvTo v4vr28bGGmn2K9mQF8L0R aiqM8TPSepMJs PfucrKKZbR2agjcxx6onk qbvVxNvCYAkOKh7WLp6WO WcbWjjCxNiPX47CDN7MNT wgjLmM0EzETAi hGwjCpC4p5K8Oa9PU7DIV tgcS3MPHOPNRLsehVV+PC 27gj34O7AyYukjSnl9ITQ eELV7cCR5mA4y YCSqZNaop1J5zQS3B7Wll gZzto5yg9afLFSqRChcR2 3yoPBlc6T7XIOyvAT0DHA loBwnKwJclN96 Oyc+IRDcdGefl2KlNwiot 0ykg1fapGy7FdzjDXBqys IolOysCSN9n7KfJo0gJOW vjTM9rSO6bS2r VpTcCpF9ZXmeV201PuMvu PAfQpzfW36sG4NttIM+PH HvVbe3HATckZbtQR5eE4W hZGRpbmctbGVm eYjrTY5vCKTvuizgUAVhv N2tKFFaS0e2MyKeDiM5AL ydB5ZnVOVanyecZb65hV7 bBkZzDsE5AXmj Q0FtvsQ2PFIebIYmXHvqE CI7B56pw3D8DUSsOEGlIS G9xOK7aG9gnJuqzkdygJO mdDsgdmVydGlj VOyhMEphH287DLVhjDnrB kNvZGluZyBEYXRlOiAgMD YvMjYvMjAyNDwvdGQ+PHR gLBG0dHjpUEEc dCXpGPzzQr7nsPzvmMflG X9zTYXesczuECZzmK9wYQ WpgRAjbMboUR5qXADqqwi ms211JtHiCSW0 FPXvtZToR8RxuG9fRbNvX ANgNLToB3YloNJcTTwgB9 73EXiwEfO6KNMhcoXhX8J sLWFsaWduOiB0 c3D4Ke5Sa2GfhnadM1Wli FEfFoYkMhyvHXs9B4IiPh wvdHI+SF71ZSPrIB33UXe 3FHT7mDqbOMzv RZUoR9XsgP1hPfOtBHXnZ GRkOyc+PHRhYmxlIHdpZH RoPScxMDAlJyBzdHlsZT0 bYg3aPRHpUWRu rGhgkNVcKgOot2slPJLdR OdfUQ2gtRwsW0CgnKI8CP Isx4d4Jf36Z84cM1CjpGV +PADkyWB8aFH4 nE7gQaEtDfI2YKevE119R ePavQWjZbwtn3ora7scaZ u9IpW0VVIhpmLmhYveTSL 4x9IaSs03R39d IHdpZHRoPSIxNSUiIHZhb Rzhmb1tgX0yTu8+PGNvbC J3yKQ6mA3hLvWgSjX6RDv wJ875AySioDRt Qjpee6vhm5uftFn2BnLeC DBwydIpgJcyDPU4w1BhQn 95H9OhrVuba8EoEkk4zj4 0uGCpf6I9gBD5 L0CwROYmlvilcMPqwBdyS A2dZLRyujxcVBEhvW4xPW JaD8x2McEoTtW4XGgyU7J vpvH0IWLvbRAk NGLauTVNzK6bsraae1fro jymHdEfANNeTBa0ECx5GJ HlyMzdRxJgCOF1DxF9QEM 7iKUbpU6vfUpl dpcizL6mYsy+GNP8xJMra JJHZA9mRfjklLC+PHRkIH F4nOtiJUjsLUEtbF3vWNX lS1s7LnNpKzZ1 KUbuN8JadoU4PGDgcFCoO WJivJCKsA2qeyjzp5jesq osFwJiNKFhZHa5VJn3FZF saWduOiBsZWZ0 AoU0BLI0iLCvsG0wnCqtl jkzfB0cGtc+QmlydGggRG W5CIl8L6BaPjr4UICppLj wII0poIGtJBhc Af5aqIxxgZbfHJ9cGIBfb fdtp389AxBoz7ueUAGyaD IgVQxeXZP0V31lc5G4VEZ wYNVpMIP8aUL9 lF4guVswnpsyoQQxpRrqg oRksXmxVHjaAQfeA059SR CamBguPeTuKRt6W6DmOah 5SKShuXxsOB0n iCWgXCeuQy2ewPeesIuuR R0oUPSfosvfi109EhXhb9 qnVBUsmUXiGXtsVEO3A95 vn3W3WAAeITUu GML5uDF9iW5bkCakmvdik GVmdDsgdmVydGljYWwtYW ogB974COCapDrxXwHfbDm 0H7CpXau6FJVk fBfoBZ8mhCIfXCmsIz2zi MaguVtoOB6wEJHakjhlh0 32VgXki2rmGMKjbBFyZDh tJDU2S44nr0V1 GONdSPKgXOJ8qHD0kW1jq GlnbjogbGVmdDsgdmVydG wjLSgsRWcrM927LALbhIv nPlBhdGllbnQg NZffUKw0R3UfYlfmfXT+P P18CFLjVG26fCOznBKhy5 aecJx0NyWcHIUaSTK3mHb eUSyfy0NuXKIu W48voOQjk3Y9OWYksLqqv PXlGtIzdDC0eA1eJIyxyl msh7gemzjgBufwo3ltgx5 8hS19H97rOPbj ZHRoPSIzMCUiIHZhbGlnb f1rlR7cRk7+JCUehVN9rG I7qQ1tSYAyFpI3WCehZ65 9InRvcCIvPjxj e2rsf0dbuXl9KsN8YMDvs cBqyMjeFBM6v0RkGz44U5 9sIHdpZHRoPSIyMCUiIHZ etErruf2ayE9k Ii8+ANSiiHE9nTO4vS2sG fSmAnG0ECzeI294WiRcnR FvHdrkV64tA8JvuOG+PHR jIpe1TUSuqDgs RQ9qmNKvIGmmEz7qNDB8W dVqNhLjWKvsU1UeEQNbsq qllkakdFS7VHYkMYNthN9 5Ne9paCktKQBv cYZWqF7jydsei3apqjrxX fXjDUYbRTw9FGk3WBTefW tnQfBmTCT3QlW9REJ5cUS jnI0aiIzscxai yP4zH3IoCGMwrzbgMj83u Q7zZyGlMhT6KKftXij+Qk LLE8ENMKAQM49AMYFJXM6 9QW92zQXfj2J2 jNN0A3ZuAMPrayqosbele WZ0UUZfBZRudN49yZFqFE rqGh8ux1Q1m874RSRtVAQ ceY58Hl3fnCxo NCKrvOXIiU5afyrkn4aei zgaDuCyQOIvRRm7AOc4UL ChmOyiEqKaSFX6AlE2TPP 3eVThuZ1fiTic cdwquI2pCsa+MDcvMDgvM Og4XIqhnNF+NCAqYSR0uY hsYYrzCEYdzS3sAKPcK9t 4OuGyAbX6JUem J2ZnGYSxbahfIc50bA9zO mHnFfM9HHukD4GnxwQ8CE NbdSKbSXgqNFT0L41xr0K 3FLDtHHGmAZI2 uZP7hR7fkZqmymdtiIEjj DsgdmVydGljYWwtYWxpZ2 72NKQmcDkxLgZ2WFcnRMI jPQ02ZB36vUQf y1T9vOS6S7PuIKNxczywq iaozAE6YYUdOZWmzF92zX KaUZnkOj2gc4X4w598CDU fKEQxdD12Ku1w zDuyUFYpgUJOsV7mhquni 0afhynxNyUyQHNiVRy5AR h6QAMbmZnyDcOnEBH8ShF 2CGH1aVUyjB3w iQhflsqhsI5bObd+RmVtY QteGW62DI41gFElf8T0cB K2S5XcAPYeawaanhxdtXQ 6YGRaOVXmjY70 iGSxCKsqMx1bi0S4x641N OOyHRWykI62Yo5wlMdiEP OrtSDOyN5ilevly0zfdcw gIzAwMDAwMDt0 TCc0IXItpFllLnAeRRK8G hI4GCJ3uSFeiU6ruOedwh tsxE4fFbj+JO7hcbeigjD 3DX64HB16X2Ab PjwvdGFibGU+PHRhYmxlI HdpZHRoPScxMDAlJyBzdH iqOI5zWt6aMZGeCQJpxKp bsMFeVcRrj9mm FXRgCPyjEJ5fmAkwZ0Uko ST6FMPlt4d0Sf81F34xS9 JvdXA+RVVpyTX8iGD8pF6 pTaGfNcU1KEdr N924AzGjdIBvAypel4sjh 0mwwOm9AmAdZCGmrfDubV lxCNN4l4MiPq32M29ePAs pZHRoPSIyMCUi AOUflKzdyt0xbJ8bBy5+P FAjlIZ2vAD6qQ6sVvVuNd Q5HNnvX595AeYqlMIlElu iG55yF9LdpYX+ MWNmDze9YKNcvCgoHG9rj HQmJZomWg8hQKO0LeZjVe YjPMosC2LaPFXwoguolyd usPK8RSPjHAJq qV45Xb6raByzXq6pBDAyV YD4XGRovTGtG9AklY7jTb BaGXGrHSUdN4VpcFOtPWp pW988HYsySqZ2 BIOqirBvP1GvFPQniSwtV zG8y5F7Xt8ZuVnjaWTeUH 7nYsUjVUh0K3IiQfe5WUZ psNgjHE5kvVAo AWwyPc3gaMqrgSaqHC4cL AQglidim774EnNor1giLQ YfpCHrGHxlHNA5G23ds6M 0IVTySWOoQNN5 fLZ2uJ8wfSybhwrvmFGtw DsgdmVydGljYWwtYWxpZ2 41ULFxnJwfOmLLYmk2U9Q lMqa7FWMuyOds JB5smYDoQErpZs1neNpzh TixSR8dEBAwnciym686Zq Dma7dtBWWagCSkPSooWVY 8D62ch5W3SJZs KJYiDUM8iXY6kZ9jeAtat jogbGVmdDsgdmVydGljYW zqHHlzT923BBYzmXliSv4 GWvc2N1RiWwa0 KMNzqSupWO5qkMLrOZlbH m2etImaoVsnZX3uPAWgst yvg875ChSwk1chRSCvjHD fSJneDOG4G40d n7S8ZDBkPXWlVNI7uQU9o O2gwNethkcdkXYynNavxi WjxTboDTcjQSnwQ834FGZ vcDsnPlBheWVy OjwvdGQ+HF69bf78P3TmU gptJar1DUDqQVI5gRE3xW 4cUVDfMWjlg8N1iNT5T3D dvgUpok0qv5ru VHNcGMnqP24nr (more content not included)... Normal [facility] Consent for Treatmenton 09-27 Consent for Treatment [id number] .[id number] Normal [facility] Discharge Instructionson Discharge Instructions [id number]# 1.00TIFF Normal [facility] ED Clinical Summaryon 2023 ED Clinical Summary [place] [address] ED Clinical Summary Person Information Name: ALEJANDRA REAL Suzi/[facility] Age: 27 Years : 1995 Sex: Female Language: [place] PCP: Krystle Ireland CNP Marital Status: Single Phone: [phone] Visit Id: Visit Reason: Nausea; Back pain; [...] 10/21/2023 20:44:31 10/21/2023 20:44:31 10/21/2023 20:44:31 ADDRESS: [address] [place] [id number] [facility] DOC NOTES: MEDICAL INFORMATION: Prescriptions Given: Medications to Continue Taking That Have Changed [id number], [address] [place], [place] [id number], [phone] START: tramadol (traMADOL 50 mg Tab) 1 [...] Follow up: With: Address: When: Cristóbal Granados [address] [place] [address] Business (1) In 3 days 10/24/2023 With: Address: When: Pain Clinic: [facility] [phone] In 3 days 10/24/2023 With: Address: When: Krystle Ireland [address] [place] [address], [facility], [address] [place] [address] Business (1) In 3 days DIAGNOSIS: 1:Chronic pain disorder; 2:Pelvic congestion syndrome Normal [facility] ED Patient Education Noteon 10-21-2023 ED [...] Follow these instructions at home: ? Take jghx-ekg-zitmfyf and prescription medicines only as told by [...] provider. Document Revised: 08/21/2021 Document Reviewed: 08/21/2021 [employer] Patient Education ? 2022 [employer]. [facility] ED Patient Summaryon 024 ED Patient Summary [address] [address] Patient Discharge Instructions Person Information Name: ALEJANDRA REAL Age: 27 Years Arrival Date: 10/21/2023 18:13:24 Discharge Diagnosis: 1:Chronic pain disorder; 2:Pelvic congestion syndrome Primary Care Physician: Krystle Ireland CNP Provider Information Primary Provider: Justo Arias DO Advanced Aquatics Director:Juancho Colón PA-C. The exam and treatment you received in the Emergency Department were for an urgent problem and are not intended as complete care. It is important that you follow up with a doctor, nurse practitioner, or physician?s safety admin assistant for ongoing care. If your symptoms [...] Follow-up Instructions: With: Address: When: Cristóbal Granados [address] [place] [address] [facility] () In 3 days 10/24/2023 With: Address: When: Pain Clinic: [facility] [phone] In 3 days 10/24/2023 With: Address: When: Krystle Ireland [address] [place] [address], [address] [place] [address] [facility] (1) In 3 days In the event that this physician does not participate in your insurance network, please consult with your insurance company to find a nearby participating provider. Patient Education Materials: Pelvic Pain, Female A MESSAGE TO ALL PATIENTS REGARDING OPIOIDS PRESCRIPTION OPIOIDS: WHAT YOU NEED TO KNOW Prescription opioids can be used to help relieve wzdrauyb-di-kftthr pain and are often prescribed following a [...] www.cdc.gov/drugoverd o (more content not included)... Normal [facility] SEROLOGYOrdered By: Azam Cloud urgeon on 10-21-2023 HCG.beta subunit (U) [Moles/Vol] Negative Normal [facility] S[facility] U BetaHcg Qualon 10-21-2023 HCG.beta subunit (U) [Moles/Vol] Negative Normal [facility] Comment on above: Performed By: #### 2 [id number] #### [facility] [address] [place] [address] UA with Cult Rflxon 10-21-19 24 Bilirubin Ql (U) Negative Normal Negative [facility] Comment on above: Performed By: #### 4 [id number] ####[facility] [id number] [place] [address] Clarity (U) Clear Normal Clear [facility] Comment on above: Performed By: #### 4 [id number] ####[facility] [id number] [place] [address] Color (U) Light-Yellow Normal Yellow [facility] Comment on above: Result Comment: Micr oscopic readings are only performed on those samples that meet specific criteria set forth by [facility]. Performed By: #### 4 [id number] ####[facility] [id number] [facility] [address] Glucose Ql (U) Negative Normal Negative [facility] Comment on above: Performed By: #### 4 [id number] ####[facility] [id number] [place] [address] Hemoglobin Auto test strip (U) [Mass/Vol] Negative Normal Negative [facility] Comment on above: Performed By: #### 4 [id number] ####[facility] [address] [place] [address] Ketones Auto test strip Ql (U) Negative Normal Negative [facility] Comment on above: Performed By: #### 4 [id number] ####[address] [address] Leukocyte esterase Auto test strip Ql (U) Negative Normal Negative [facility] Comment on above: Performed By: #### 4 [id number] ####[address] [address] Nitrite Auto test strip Ql (U) Negative Normal Negative [facility] Comment on above: Performed By: #### 4 [id number] ####[address] [address] pH (U) 6.5 [pH] Invalid Interpretation Code 5.0-9.0 [facility] Comment on above: Performed By: #### 4 [id number] ####[address] [address] Protein Ql (U) Negative Normal Negative [facility] Comment on above: Performed By: #### 4 [id number] ####[place] [id number] Specific gravity (U) [Rel density] 1.014 Invalid Interpretation Code 1.005-1.030 [facility] Comment on above: Performed By: #### 4 [id number] ####[address] [address] Urobilinogen (U) [Mass/Vol] Negative Normal Negative [facility] Comment on above: Performed By: #### 4 [id number] ####[address] [address] Type of Urine collection method Clean Catch Normal [facility] Comment on above: Performed By: #### 4 [id number] ####[address] [address] URINALYSISOrdered By: SYSTEM SYSTEM on 10-21-2023 Bilirubin Ql (U) Negative Normal Negativemg/ d L [facility] UA Auto SS Clarity (U) Clear (10/21/23 6:29 PM) Normal Clear FT UA Auto SS Color (U) Light-Yellow 1 (10/21/23 6:29 PM) Normal Yellow [facility] UA Auto SS Comment on above: Interpretive Data: M icroscopic readings are only performed on those samples that meet specific criteria set forth by [facility]. Glucose Ql (U) Negative Normal Negativemg/d [...] Invalid Interpretation Code 5.0 - 9.0 [facility] U[facility] Auto SS Protein Ql (U) Negative Normal Negativemg/d L [facility] UA Auto SS Specific gravity (U) [Rel density] 1.014 *NA* (10/21/23 6:29 PM) Invalid Interpretation Code 1.005 - 1.030 [facility] UA Auto SS Urobilinogen (U) [Mass/Vol] Negative Normal Negativemg/d L [facility] UA Auto SS URINALYSISOrdered By: Justo contreras on 10-21-2023 UA Spec Desc Clean Catch (10/21/23 6:29 PM) Normal [facility] UA Auto SS Work Phone: Consent for Treatmenton 09-27 Consent for Treatment [id number] .00TIFF Normal [facility] Discharge Instructionson Discharge Instructions [id number] .00TIFF Normal [facility] ED Clinical Summaryon 2023 ED Clinical Summary [address] [address] ED Clinical Summary Person Information Name: ALEJANDRA REAL [place] Age: 27 Years : 1995 Sex: Female Language: [place] PCP: Krystle Ireland CNP Marital Status: Single Phone: [phone] Visit Id: Visit Reason: Pelvic pain; PELVIC [...] 14:02:31 ADDRESS: [address] [facility] [id number] PHYS DOC NOTES: MEDICAL INFORMATION: Prescriptions Given: Medications to Continue Taking That Have Changed [id number], [address] [place] [id number], [phone] START: ondansetron (Zofran ODT 4 mg Tab-Dis) [...] up: With: Address: When: Fatoumata Gooden [address] [place] [address] Business (1) In 3 days 10/22/2023 With: Address: When: Krystle Ireland [address] [place] [address], [facility], [address] [place] [address] Business (1) In 3 days DIAGNOSIS: Chronic female pelvic pain; Other chronic pain Normal [facility] ED Note-Physicianon 06-23-20 24 ED Note-Physician Basic Information Time Seen: Hank [...] and Complexity of Problems Differential Diagnosis: [] [facility] Data External documents reviewed: [] My EKG [...] Nausea/Vomiting, # 20 tab(s), Refills(s) 0, Pharmacy: [facility]/pharmacy #[id number], 160, cm, 10/19/23 12:58:00 EDT, Height/Length Dosing, 65, kg, 10/19/23 12:58:00 EDT, Weight Dosing tramadol, 50 mg = 1 tab(s), Oral, q6hr, PRN for pain, X 3 day(s), # 10 tab(s), Refills(s) 0, Pharmacy: [facility]/pharmacy #[id number], 160, cm, 10/19/23 12:58:00 EDT, Height/Length [...] Gooden In 3 days 10/22/2023 EDT [address] [place] [address]- Business (1) Additional Instructions: Krystle Ireland In 3 days [address] [facility], [address] [place] [address]- Business (1) Additional Instructions: Attestation Patient seen and evaluated by the physician safety admin assistant. Attending physician was present in the emergency department and supervised care. This visit was performed by both the physician and an APC. I performed all aspects of the MDM as documented. This report was transcribed using voice recognition software. Every effort was made to ensure accuracy, however, inadvertently computerized modeling manager mistakes may be present. Appropriate healthcare PPE was used in evaluating this patient. The patient was placed in a mask. The healthcare provider was wearing mask, gloves, and utilizing proper hand hygiene. All equipment was properly cleansed. I performed a substantive part of the MDM during the patient?s E/M visit. I personally made or approved the documen (more content not included)... Normal [facility] Comment on above: Result Comment: Elec tronically Signed By: Ulisses Mckinney PA-C\.br\Date and Time Signed: 10/19/23 15:12 EDT\.br\Electronically Co-Signed By: Mary Jane Palm M.D.\.br\Date and Time Co-Signed: 10/19/23 19:47 EDT ED Patient Education Noteon 10-19-2023 ED Patient Education Note Normal [facility] ED Patient Summaryon 024 ED Patient Summary [facility] [address] [place], [place] [address] Patient Discharge Instructions Person Information Name: ALEJANDRA REAL Age: 27 Years Arrival Date: 10/19/2023 12:41:39 Discharge Diagnosis: Chronic female pelvic pain; Other chronic pain Primary Care Physician: Krystle Ireland CNP Provider Information Primary Provider: Mary Jane Palm M.D. Advanced Aquatics Director:None The exam and treatment you received in the Emergency Department were for an urgent problem and are not intended as complete care. It is important that you follow up with a doctor, nurse practitioner, or physician?s safety admin assistant for ongoing care. If your symptoms [...] Instructions: With: Address: When: Fatoumata Wagneran [address] [place] [address] Business (1) In 3 days 10/22/2023 With: Address: When: Krystle Ireland [address] [place] [address], [address] [place] [address] Business (1) In 3 days In the event that this physician does not participate in your insurance network, please consult with your insurance company to find a nearby participating provider. Patient Education Materials: A MESSAGE TO ALL PATIENTS REGARDING OPIOIDS PRESCRIPTION OPIOIDS: WHAT YOU NEED TO KNOW Prescription opioids can be used to help relieve jimjwfeo-xk-qxavig pain and are often prescribed following a [...] tell your (more content not included)... Normal [facility] ED Note-Physicianon 10-18-19 ED Note-Physician Basic Information [...] Gooden In 3 days 10/20/2023 EDT [address] [place] [address]- Business (1) Additional Instructions: Follow-up with Dr. Gooden for further management of care. Krystle Ireland In 3 days 10/20/2023 EDT [address] [facility], [address] [place] [address]- Business (1) Additional Instructions: Patient Education Abdominal Pain, Adult, Fvmg-ux-Bfyo Attestation Patient seen and evaluated by the physician safety admin assistant. Attending physician was present in the emergency department and supervised care. This visit was performed by both the physician and an APC. I performed all aspects of the MDM as documented. This report was transcribed using voice recognition software. Every effort was made to ensure accuracy, however, inadvertently computerized modeling manager mistakes may be present. Appropriate healthcare PPE [...] pain Right (more content not included)... Normal [facility] Comment on above: Result Comment: Elec tronically Signed By: Barb LUKE, [place] Gloria\.br\Date and Time Signed: 10/17/23 18:53 EDT\.br\Electronically Co-Signed [...] mGy = na DAP = na Normal [facility] Consent for Treatmenton 09-27 Consent for Treatment [id number] .00TIFF Normal [facility] Discharge Instructionson Discharge Instructions [id number] 1.00TIFF Normal [facility] ED Clinical Summaryon 2023 ED Clinical Summary [place] [address] ED Clinical Summary Person Information Name: ALEJANDRA REAL [place] Age: 27 Years : 1995 Sex: Female Language: [place] PCP: Krystle Ireland CNP Marital Status: Single Phone: [phone] Visit Id: Visit Reason: Buttock fncyfs-hdiv-aiohjawo; Pelvic pain; ABD PAIN, BUTTOCK PAIN Speciality: [...] 10/17/2023 18:55:06 10/17/2023 18:55:06 10/17/2023 18:55:06 ADDRESS: [address] [place] [address] [address] [facility] [id number] PHYS DOC NOTES: MEDICAL INFORMATION: Prescriptions Given: [...] PATIENT EDUCATION INFORMATION: Instructions: Abdominal Pain, Adult, Jtyu-nt-Sggv Follow up: With: Address: When: Fatoumata Gooden [address] [place] [id number] Business (1) In 3 days 10/20/2023 Comments: Follow-up with Dr. Gooden for further management of care. With: Address: When: Krystle Ireland [address] [facility], [facility], [address] [place] [address] Business (1) In 3 days 10/20/2023 DIAGNOSIS: Chronic female pelvic pain; Other chronic pain Normal [facility] ED Note-Physicianon 10-17-19 ED Note-Physician Basic Information [...] Diagnostic Results No qualifying data available. Normal [facility] Comment on above: Other Comment: fidelia gamino [...] these instructions at home: Medicines ? Take pcrk-spd-leecjpx and prescription medicines only as told by [...] belly pain for any changes. ? Take qfyj-ets-xgnbqqe and prescription medicines only as told by [...] Reviewed: 08/23/2019 Elsevier Patient Education ? 2022 [employer] Normal [facility] ED Patient Summaryon 024 ED [place] [address] Patient Discharge Instructions Person Information Name: ALEJANDRA REAL Age: 27 Years Arrival Date: 10/17/2023 17:12:33 Discharge Diagnosis: Chronic female pelvic pain; Other chronic pain Primary Care Physician: Krystle Ireland CNP Provider Information Primary Provider: Darren Lomax DO Advanced Aquatics Director:France Day PA-C The exam and treatment you received in the Emergency Department were for an urgent problem and are not intended as complete care. It is important that you follow up with a doctor, nurse practitioner, or physician?s safety admin assistant for ongoing care. If your symptoms [...] Follow-up Instructions: With: Address: When: Fatoumata Gooden [address] [place] [address] Business (1) In 3 days 10/20/2023 Comments: Follow-up with Dr. Gooden for further management of care. With: Address: When: Krystle Ireland [address] [place] [address], [address] [place] [phone] Business (1) In 3 days 10/20/2023 In the event that this physician does not participate in your insurance network, please consult with your insurance company to find a nearby participating provider. Patient Education Materials: Abdominal Pain, Adult, Jsrs-ix-Nzaj A MESSAGE TO ALL PATIENTS REGARDING OPIOIDS PRESCRIPTION OPIOIDS: WHAT YOU NEED TO KNOW Prescription opioids can be used to help relieve zjxyqlag-uu-rkhojt pain and are often prescribed following a [...] Visit www.cdc.gov/emerson (more content not included)... Normal [facility] UA with Cult Rflxon 10-17-19 24 Bilirubin Ql (U) Negative Normal Negative [facility] Comment on above: Performed By: #### 4 [id number] ####[facility] [address] [place] [address] Clarity (U) Clear Normal Clear [facility] Comment on above: Performed By: #### 4 [id number] ####[facility] [address] [place] [address] Color (U) Light-Yellow Normal Yellow [facility] Comment on above: Result Comment: Micr oscopic readings are only performed on those samples that meet specific criteria set forth by [facility]. Performed By: #### 4 [id number] ####[facility] [address] [place] [address] Glucose Ql (U) Negative Normal Negative [facility] Comment on above: Performed By: #### 4 [id number] ####[facility] [address] [place] [address] Hemoglobin Auto test strip (U) [Mass/Vol] Negative Normal Negative [facility] Comment on above: Performed By: #### 4 [id number] ####[facility] [address] [place] [address] Ketones Auto test strip Ql (U) Negative Normal Negative [facility] Comment on above: Performed By: #### 4 [id number] ####[facility] [address] [place] [address] Leukocyte esterase Auto test strip Ql (U) Negative Normal Negative [facility] Comment on above: Performed By: #### 4 [id number] ####[facility] [address] [place] [address] Nitrite Auto test strip Ql (U) Negative Normal Negative [facility] Comment on above: Performed By: #### 4 [id number] ####[facility] [address] [place] [address] pH (U) 6.0 [pH] Invalid Interpretation Code 5.0-9.0 [facility] Comment on above: Performed By: #### 4 [id number] ####[address] [address] Protein Ql (U) Negative Normal Negative [facility] Comment on above: Performed By: #### 4 [id number] ####[address] [address] Specific gravity (U) [Rel density] 1.013 Invalid Interpretation Code 1.005-1.030 [facility] Comment on above: Performed By: #### 4 [id number] ####[address] [address] Urobilinogen (U) [Mass/Vol] Negative Normal Negative [facility] Comment on above: Performed By: #### 4 [id number] ####[address] [address] Type of Urine collection method Clean Catch Normal [facility] Comment on above: Performed By: #### 4 [id number] ####[place] [id number] URINALYSISOrdered By: SYSTEM SYSTEM on 10-17-2023 Bilirubin Ql (U) Negative Normal Negativemg/ d L [facility] UA Auto SS Clarity (U) Clear (10/17/23 6:27 PM) Normal Clear [facility] UA Auto SS Color (U) Light-Yellow 1 (10/17/23 6:27 PM) Normal Yellow [facility] UA Auto SS Comment on above: Interpretive Data: M icroscopic readings are only performed on those samples that meet specific criteria set forth by [facility]. Glucose Ql (U) Negative Normal Negativemg/d [...] L [facility] UA Auto SS URINALYSISOrdered By: France Day on 10-17-2023 UA Spec Desc Clean Catch (10/17/23 6:27 PM) Normal [facility] UA Auto SS Work Phone: ED Note-Physicianon [...] and Complexity of Problems Differential Diagnosis: [] [facility] Data External documents reviewed: [] My EKG [...] day(s), # 10 tab(s), Refills(s) 0, Pharmacy: [facility]/pharmacy #[id number], 160, cm, 10/05/23 19:30:00 EDT, Height/Length [...] q6hr, PRN Follow-up With When Contact Information Krystle Beka In 3 days 10/08/2023 EDT [address] [facility], [address] [place] [phone] Business (1) Additional Instructions: Call Dr for diagnosis based follow up Attestation Patient seen and evaluated by the physician safety admin assistant. Attending physician was present in the emergency department and supervised care. This visit was performed by both the physician and an APC. I performed all aspects of the MDM as documented. This report was transcribed using voice recognition software. Every effort was made to ensure accuracy, however, inadvertently computerized modeling manager mistakes may be present. Appropriate healthcare PPE [...] as above. (more content not included)... Normal [facility] Comment on above: Result Comment: Elec tronically Signed By: Ulisses Mckinney PA-C\.br\Date and Time Signed: 10/05/23 22:36 EDT\.br\Electronically Co-Signed By: Bruno Jara DO\.br\Date and Time Co-Signed: 10/06/23 02:45 EDT Consent for Treatmenton Consent for Treatment [id number] .00TIFF Normal [facility] Discharge Instructionson Discharge Instructions [id number] .00TIFF Normal [facility] ED Clinical Summaryon 2023 ED Clinical Summary [address] [address] ED Clinical Summary Person Information Name: ALEJANDRA REAL [place] Age: 27 Years : 1995 Sex: Female Language: [place] PCP: Krystle Ireland CNP Marital Status: Single Phone: [phone] Visit Id: Visit Reason: Dysuria; Abdominal pain [...] 20:44:09 ADDRESS: [address] [facility] [id number] PHYS DOC NOTES: MEDICAL INFORMATION: Prescriptions Given: Medications to Continue Taking That Have [facility]anged [id number], [address] [place], [place] [id number], [phone] START: tramadol (traMADOL 50 mg Tab) 1 [...] INFORMATION: Instructions: Follow up: With: Address: When: Krystle Ireland [address] [place] [address], [facility] [address] [place] [address] [facility] (1) In 3 days 10/08/2023 Comments: Call Dr for diagnosis based follow up DIAGNOSIS: Chronic abdominal pain; Other chronic pain Normal [facility] ED Patient Education Noteon 10-05-2023 ED Patient Education Note Normal [facility] ED Patient Summaryon 024 ED Patient Summary [address] [address] Patient Discharge Instructions Person Information Name: DAXMEAGANZELDA Russo Age: 27 Years Arrival Date: 10/05/2023 19:20:52 Discharge Diagnosis: Chronic abdominal pain; Other chronic pain Primary Care Physician: Krystle Ireland CNP Provider Information Primary Provider: Bruno Jara DO Advanced Aquatics Director:None The exam and treatment you received in the Emergency Department were for an urgent problem and are not intended as complete care. It is important that you follow up with a doctor, nurse practitioner, or physician?s safety admin assistant for ongoing care. If your symptoms become worse or you do not improve as expected and you are unable to reach your usual health care provider, you should return to the Emergency Department. We are available 24 hours a day. ALEJANDRA REAL has been given the following list of patient education materials, prescriptions and follow-up instructions: Follow-up Instructions: With: Address: When: Krystle Ireland [address] [place] [address], [address] [place] [address] [facility] (1) In 3 days 10/08/2023 Comments: Call Dr for diagnosis based follow up In the event that this physician does not participate in your insurance network, please consult with your insurance company to find a nearby participating provider. 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 Normal [facility] SEROLOGYOrdered By: Kyle Mcgill on 10-05-2023 HCG.beta subunit (U) [Moles/Vol] Negative Normal [facility] Man Sero U BetaHcg Qualon 10-05-2023 HCG.beta subunit (U) [Moles/Vol] Negative Normal [facility] Comment on above: Performed By: #### 2 [id number] #### [facility] [address] [place] [address] UA with Cult Rflxon 10-05-19 24 Bilirubin Ql (U) Negative Normal Negative [facility] Comment on above: Performed By: #### 4 [id number] #### [facility] [address] [place] [address] Clarity (U) Clear Normal Clear [facility] Comment on above: Performed By: #### 4 [id number] #### [facility] [address] [place] [address] Color (U) Light-Yellow Normal Yellow [facility] Comment on above: Result Comment: Micr oscopic readings are only performed on those samples that meet specific criteria set forth by [facility]. Performed By: #### 4 [id number] #### [facility] [address] [place] [address] Glucose Ql (U) Negative Normal Negative [facility] Comment on above: Performed By: #### 4 [id number] #### [facility] [address] [place] [address] Hemoglobin Auto test strip (U) [Mass/Vol] Negative Normal Negative [facility] Comment on above: Performed By: #### 4 [id number] #### [facility] [address] [place] [address] Ketones Auto test strip Ql (U) Negative Normal Negative [facility] Comment on above: Performed By: #### 4 [id number] #### [facility] [address] [place] [address] Leukocyte esterase Auto test strip Ql (U) Negative Normal Negative [facility] Comment on above: Performed By: #### 4 [id number] #### [facility] [address] [place] [address] Nitrite Auto test strip Ql (U) Negative Normal Negative [facility] Comment on above: Performed By: #### 4 [id number] #### [facility] [address] [place] [address] pH (U) 6.0 [pH] Invalid Interpretation Code 5.0-9.0 [facility] Comment on above: Performed By: #### 4 [id number] #### [facility] [address] [place] [address] Protein Ql (U) Negative Normal Negative [facility] Comment on above: Performed By: #### 4 [id number] #### [facility] [address] [place] [address] Specific gravity (U) [Rel density] 1.027 Invalid Interpretation Code 1.005-1.030 [facility] Comment on above: Performed By: #### 4 [id number] #### [facility] [address] [place] [address] Urobilinogen (U) [Mass/Vol] Negative Normal Negative [facility] Comment on above: Performed By: #### 4 [id number] #### [facility] [address] [place] [address] Type of Urine collection method Clean Catch Normal [facility] Comment on above: Performed By: #### 4 [id number] #### [facility] [address] [place] [address] URINALYSISOrdered By: SYSTEM SYSTEM on 10-05-2023 Bilirubin [...] that meet specific criteria set forth by [facility]. Glucose Ql (U) Negative Normal Negativemg/d [...] L [facility] UA Auto SS URINALYSISOrdered By: Bruon lawson on 10-05-2023 UA Spec Desc Clean Catch (10/05/23 7:52 PM) Normal [facility] UA Auto SS Work Phone: Consent for Treatmenton Consent for Treatment [id number] .00TIFF Normal [facility] Discharge Instructionson Discharge Instructions [id number]# 1.00TIFF Normal [facility] ED Clinical Summaryon 2023 ED Clinical Summary [place] [id number] ED Clinical Summary Person Information Name: ALEJANDRA REAL Suzi/[facility] Age: 27 Years : 1995 Sex: Female Language: [place] PCP: Krystle Ireland CNP Marital Status: Single Phone: [phone] Visit Id: Visit Reason: Pelvic pain; Dysuria; [...] 10/02/2023 07:48:33 10/02/2023 07:48:33 10/02/2023 07:48:33 ADDRESS: [employer] [address] [facility] [id number] PHYS DOC NOTES: MEDICAL INFORMATION: Prescriptions Given: Medications to Continue Taking That Have Changed [facility]/pharmacy #6173, [address] [place], [place] [id number], [phone] START: tramadol (traMADOL 50 mg Tab) 1 [...] Pain, Adult Follow up: With: Address: When: Krystle Ireland [address] [place] [address], [facility], [address] [place] [id number] uberall (1) In 3 days 10/05/2023 Comments: Return to the emergency room if your pain gets worse, vomiting, fever or any new symptoms. DIAGNOSIS: 1:Dysuria; Chronic abdominal pain; Other chronic pain Normal [facility] ED Note-Physicianon 10-02-19 ED Note-Physician Basic Information [...] and Complexity of Problems Differential Diagnosis: [] [facility] Data External documents reviewed: [] My EKG [...] in h (more content not included)... Normal [facility] Comment on above: Result Comment: Elec tronically [...] and Complexity of Problems Differential Diagnosis: [] [facility] Data External documents reviewed: [] My EKG [...] in h (more content not included)... Normal [facility] Comment on above: Result Comment: Darrian rutherford Signed By: Vivian Ochoa DO\Date and Time Signed: 10/02/23 07:17 EDT ED [...] these instructions at home: Medicines ? Take ntot-ujz-urelzal and prescription medicines only as told by [...] your condition for any changes. ? Take epxz-nag-mkbomqe and prescription medicines only as told by [...] provider. Document Revised: 06/02/2020 Document Reviewed: 08/23/2019 [employer] Patient Education ? 2022 [employer]. Mental and Behavioral Health Chronic Pain, Adult [...] these instructions at home: Medicines ? Take zyrf-vrp-snjckvd and prescription medicines only as told by your health care provider. ? Ask your health care provider if the medicine prescribed to you: ? Requires you to avoid driving or using machinery. ? Can cause constipation. You may need to take these actions to prevent or treat constipation: ? Drink enough fluid to keep your urine pale yellow. ? Take cirx-jpf-vuwlffx or prescription medicines. ? Eat foods that [...] feel pain. (more content not included)... Normal [facility] ED Patient Summaryon 024 ED Patient Summary [address] [address] Patient Discharge Instructions Person Information Name: ALEJANDRA REAL Age: 27 Years Arrival Date: 10/02/2023 06:22:47 Discharge Diagnosis: 1:Dysuria; Chronic abdominal pain; Other chronic pain Primary Care Physician: Krystle Ireland CNP Provider Information Primary Provider: Vivian Ochoa DO Advanced Aquatics Director:None The exam and treatment you received in the Emergency Department were for an urgent problem and are not intended as complete care. It is important that you follow up with a doctor, nurse practitioner, or physician?s safety admin assistant for ongoing care. If your symptoms become worse or you do not improve as expected and you are unable to reach your usual health care provider, you should return to the Emergency Department. We are available 24 hours a day. ALEJANDRA REAL has been given the following list of patient education materials, prescriptions and follow-up instructions: Follow-up Instructions: With: Address: When: Krystle Ireland [address] [place] [address], [facility], [address] [place] [address] [facility] (1) In 3 days 10/05/2023 Comments: Return [...] opioids can be used to help relieve xnqctwiy-vr-zboigj pain and are often prescribed following a [...] you believe (more content not included)... Normal [facility] SEROLOGYOrdered By: Brii Walters on 10-02-2023 HCG.beta subunit (U) [Moles/Vol] Negative Normal [facility] Man Sero U BetaHcg Qualon 10-02-2023 HCG.beta subunit (U) [Moles/Vol] Negative Normal [facility] Comment on above: Performed By: #### 2 [id number] #### [facility] [address] [place] [address] UA with Cult Rflxon 10-02-19 24 Bilirubin Ql (U) Negative Normal Negative [facility] Comment on above: Performed By: #### 4 [id number] #### [facility] [address] [place] [address] Clarity (U) Turbid Abnormal Clear [facility] Comment on above: Performed By: #### 4 [id number] #### [facility] [address] [place] [address] Color (U) Yellow Normal Yellow [facility] Comment on above: Result Comment: Micr oscopic readings are only performed on those samples that meet specific criteria set forth by [facility]. Performed By: #### 4 [id number] #### [facility] [address] [place] [address] Epithelial cells.squamous Auto (Urine sed) [#/Area] 0-2 Normal 0-2 [facility] Comment on above: Performed By: #### 4 [id number] #### [facility] [address] [place] [address] Glucose Ql (U) Negative Normal Negative [facility] Comment on above: Performed By: #### 4 [id number] #### [facility] [address] [place] [address] Hemoglobin Auto test strip (U) [Mass/Vol] Negative Normal Negative [facility] Comment on above: Performed By: #### 4 [id number] #### [facility] [address] [place] [address] Ketones Auto test strip Ql (U) Negative Normal Negative [facility] Comment on above: Performed By: #### 4 [id number] #### [facility] [address] [place] [address] Leukocyte esterase Auto test strip Ql (U) Negative Normal Negative [facility] Comment on above: Performed By: #### 4 [id number] #### [facility] [address] [place] [address] Mucus Auto Ql (U) Trace Normal Negative [facility] Comment on above: Performed By: #### 4 [id number] #### [facility] [address] [place] [address] Nitrite Auto test strip Ql (U) Negative Normal Negative [facility] Comment on above: Performed By: #### 4 [id number] #### [facility] [address] [place] [address] pH (U) 7.0 [pH] Invalid Interpretation Code 5.0-9.0 [facility] Comment on above: Performed By: #### 4 [id number] #### [facility] [address] [place] [address] Protein Ql (U) Trace Abnormal Negative [facility] Comment on above: Performed By: #### 4 [id number] #### [facility] [address] [place] [address] RBC Ql (U) 0-3 Normal 0-3 [facility] Comment on above: Performed By: #### 4 [id number] #### [facility] [address] [place] [address] Specific gravity (U) [Rel density] 1.032 Invalid Interpretation Code 1.005-1.030 [facility] Comment on above: Performed By: #### 4 [id number] #### [facility] [address] [place] [address] Urobilinogen (U) [Mass/Vol] 2 mg/dL Abnormal Negative [facility] Comment on above: Performed By: #### 4 [id number] #### [facility] [address] [place] [address] WBC Auto (Urine sed) [#/Area] 0-5 Normal 0-5 [facility] Comment on above: Performed By: #### 4 [id number] #### [facility] [address] [place] [address] Type of Urine collection method Clean Catch Normal [facility] Comment on above: Performed By: #### 4 [id number] #### [facility] [address] [place] [address] URINALYSISOrdered By: Michael Walters on 10-02-2023 Bilirubin Ql (U) Negative Normal Negativemg/ d L [facility] UA Auto SS Clarity (U) Turbid *ABN* (10/02/23 6:38 AM) Invalid Interpretation Code Clear [facility] UA Auto SS Color (U) Yellow 1 (10/02/23 6:38 AM) Normal Yellow [facility] Auto SS Comment on above: Interpretive Data: M icroscopic readings are only performed on those samples that meet specific criteria set forth by [facility]. Epithelial cells.squamous Auto (Urine sed) [#/Area] [...] Desc Clean Catch (10/02/23 6:38 AM) Normal [facility] UA Auto SS Work Phone: ED Note-Physicianon 09-28-19 ED Note-Physician Basic Information Time Seen: Hank LUKE, Ulisses Lujan. 09/24/2023 15:28 Chief Complaint patient presents with [...] and Complexity of Problems Differential Diagnosis: [] [facility] Data External documents reviewed: [] My EKG [...] day(s), # 9 tab(s), Refills(s) 0, Pharmacy: [facility]/pharmacy #[id number], 160, cm, 09/24/23 15:37:00 EDT, Height/Length Dosing, 65, kg, 09/24/23 15:37:00 EDT, Weight Dosing tramadol, 50 mg = 1 tab(s), Oral, q6hr, PRN for pain, X 3 day(s), # 12 tab(s), Refills(s) 0, Pharmacy: [facility]/pharmacy #[id number], 160, cm, 09/24/23 15:37:00 EDT, Height/Length [...] Gooden In 3 days 09/27/2023 EDT [address] [place] [address] Business (1) Additional Instructions: Call Dr for diagnosis based follow up Krystle Ireland In 3 days 09/27/2023 EDT [address] [facility], [address] [place] [phone]- [facility] (1) Additional Instructions: Call for diagnosis based follow up Patient Education Dysuria Attestation Patient seen and evaluated by the physician safety admin assistant. Yvette (more content not included)... Normal [facility] Comment on above: Result Comment: Elec tronically Signed By: Ulisses Mckinney PA-C\.br\Date and Time Signed: 09/24/23 16:26 EDT\.br\Electronically Co-Signed By: Suman DC, Guille\.br\Date and Time Co-Signed: 09/28/23 10:51 EDT Automated basophil %Ordered By: Neptali Esquivel on 09-27-2023 Basophils/100 WBC (Bld) 0.2 % Normal . [facility] Comment on above: Performed By: #### C BC, BMP #### [address] Automated basophil countOrde red By: Neptali Esquivel on 09-27-2023 Basophils (Bld) [#/Vol] 0.0 10*3/uL Normal 0.0-0.2 Comment on above: Result Comment: PERF ORMED BY: [place] [address] PATHOLOGIST DEVELOPER PROGRAMMER ANALYST ALEXANDER SANDERS M.D. Performed By: #### C BC, BMP #### [address] Automated blood monocyte cou ntOrdered By: Neptali Esquivel on 09-27-2023 Monocytes (Bld) [#/Vol] 0.3 10*3/uL Normal 0.0-0.8 Comment on above: Performed By: #### C BC, BMP #### [address] Automated eosinophil %Ordere d By: Neptali Esquivel on 09-27-2023 Eosinophils/100 WBC (Bld) 0.5 % Normal . Comment on above: Performed By: #### C BC, BMP #### [address] Automated eosinophil countOr dered By: Neptali Esquivel on 09-27-2023 Eosinophils (Bld) [#/Vol] 0.0 10*3/uL Normal 0.0-0.45 Comment on above: Performed By: #### C BC, BMP #### [address] Automated monocyte %Ordered By: Neptali Esquivel on 09-27-2023 Monocytes/100 WBC (Bld) 5.1 % Normal . [facility] Comment on above: Performed By: #### C BC, BMP #### [address] Automated neutrophil %Ordere d By: Neptali Esquivel on 09-27-2023 Neutrophils/100 WBC (Bld) 73.0 % Normal . Comment on above: Performed By: #### C BC, BMP #### [address] Basic Metabolic Panelon 06-0 Creatinine Clr Calc Pharmacy 93.76 Normal [facility] Comment on above: Result Comment: PERF ORMED BY: [place] [address] PATHOLOGIST DEVELOPER PROGRAMMER ANALYST ALEXANDER SANDERS M.D. Performed By: #### C BC, BMP #### [address] GFR/1.73 sq M.predicted MDRD (S/P/Bld) [Vol rate/Area] mL/min/{1.73_m2} Normal [facility] Comment on above: Performed By: #### C BC, BMP #### [address] Bilirubin Test strip Ql (U)O rdered By: Neptali Esquivel on 09-27-2023 Bilirubin Ql (U) Negative Negative [facility] Calcium [Mass/volume] in Ser um or PlasmaOrdered By: Neptali Esquivel on 09-27-2023 Calcium [Mass/Vol] 9.7 mg/dL Normal 8.6-10.3 [facility] Comment on above: Performed By: #### C BC, BMP #### [address] Carbon dioxide, total [Moles /volume] in Serum or PlasmaOrdered By: Neptali Esquivel on 09-27-2023 CO2 [Moles/Vol] 28.3 mmol/L Normal 21.0-31.0 [facility] Comment on above: Performed By: #### C BC, BMP #### [address] Chloride [Moles/volume] in S gabbie or PlasmaOrdered By: Neptali Esquivel on 09-27-2023 Chloride [Moles/Vol] 107 mmol/L Normal 98-107 [facility] Comment on above: Performed By: #### C BC, BMP #### [address] Color of Urine by AutoOrdere d By: Neptali Esquivel on 09-27-2023 Color (U) Yellow Normal Yellow Comment on above: Order Comment: Name Collection Type:: Clean-Voided Midstream Performed By: #### U HCG, UA #### [address] Complete Blood Count Auto Di ffon 09-27-2023 Mean Corpuscular HGB Conc 34.0 g/dL Normal 32.0-35.0 [facility] Comment on above: Performed By: #### C BC, BMP #### [address] Monocytes/100 WBC (Bld) 16.50 % Normal 0.00-20.00 [facility] Comment on above: Performed By: #### C BC, BMP #### [address] NRBC% 0.2 /100{WBC} Normal 0-0.5 [facility] Comment on above: Performed By: #### C BC, BMP #### [facility] [address] [place] [address] [facility] Consent for Treatmenton Consent for Treatment [id number] .[id number] Normal [facility] Creatinine [Mass/volume] in Serum or PlasmaOrdered By: Neptali Esquivel on 09-27-2023 Creatinine [Mass/Vol] 0.81 mg/dL Normal 0.60-1.20 [facility] Comment on above: Performed By: #### C JOY, BMP #### [facility] [address] [place] [id number] [facility] Discharge Instructionson Discharge Instructions [id number] 1.00TIFF Normal [facility] ED Clinical Summaryon 2023 ED Clinical Summary [place] [id number] ED Clinical Summary Person Information Name: ALEJANDRA REAL [facility] Age: 27 Years : 1995 Sex: Female Language: [place] PCP: Krystle Ireland CNP Marital Status: Single Phone: [phone] Visit Id: Visit Reason: Dysuria; Pelvic pain; [...] 09/27/2023 10:45:34 09/27/2023 10:45:34 09/27/2023 10:45:34 ADDRESS: [employer] [address] [place] [phone] [facility] DOC NOTES: MEDICAL INFORMATION: Prescriptions Given: [...] Pain, Adult Follow up: With: Address: When: Krystle Ireland [address] [place] [address], [facility], [place] [phone] Business (1) In 3 days 09/30/2023 DIAGNOSIS: Chronic pain in female pelvis; Other chronic pain Normal [facility] ED Note-Physicianon 09-27-19 ED Note-Physician Basic Information [...] Oral, TID Follow-up With When Contact Information Krystle Ireland In 3 days 09/30/[address] [place] [address], [address] [place] [phone] [facility] (1) Additional Instructions: Patient Education Chronic Pain, [...] made to ensure accuracy, however, inadvertently computerized modeling manager mistakes may be present. Appropriate healthcare PPE [...] No. Smok (more content not included)... Normal [facility] Comment on above: Result Comment: Elec tronically [...] these instructions at home: Medicines ? Take qrbw-yqq-bjtjbqt and prescription medicines only as told by your health care provider. ? Ask your health care provider if the medicine prescribed to you: ? Requires you to avoid driving or using machinery. ? Can cause constipation. You may need to take these actions to prevent or treat constipation: ? Drink enough fluid to keep your urine pale yellow. ? Take vfcp-bfm-ppqjnas or prescription medicines. ? Eat foods that [...] or: ? Call your local emergency services (548 in the [place] ? Call a suicide crisis helpline, such as the National Suicide Prevention Lifeline at or 808 in the [place] This is open 24 hours a day in the [place] ? Text the Crisis Text Line at 635828 (in the [place] Summary ? Chronic pain is a type of pain that lasts or keeps coming back for at least 3?6 months. ? Chronic pain may be related to an illness, injury, or other health condition. Sometimes, the cause of chronic pain is not known. ? Treatment depends on the cause and severity of your pain. ? (more content not included)... Normal [facility] ED Patient Summaryon 024 ED Patient Summary [address] [address] Patient Discharge Instructions Person Information Name: ALEJANDRA REAL Age: 27 Years Arrival Date: 09/27/2023 10:29:45 Discharge Diagnosis: Chronic pain in female pelvis; Other chronic pain Primary Care Physician: Krystle Ireland CNP Provider Information Primary Provider: Darren Lomax DO Advanced Aquatics Director:Sy Pickard PA-C The exam and treatment you received in the Emergency Department were for an urgent problem and are not intended as complete care. It is important that you follow up with a doctor, nurse practitioner, or physician?s safety admin assistant for ongoing care. If your symptoms become worse or you do not improve as expected and you are unable to reach your usual health care provider, you should return to the Emergency Department. We are available 24 hours a day. ALEJANDRA REAL has been given the following list of patient education materials, prescriptions and follow-up instructions: Follow-up Instructions: With: Address: When: Krystle Ireland [address] [place] [address], [facility], [address] [place] [address] Business (1) In 3 days 09/30/2023 In the event that this physician does not participate in your insurance network, please consult with your insurance company to find a nearby participating provider. 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 Normal [facility] Erythrocyte distribution wid th [Ratio] by Automated countOrdered By: Neptali Esquivel on 09-27-2023 Erythrocyte distribution width (RBC) [Ratio] 13.5 % Normal 11.9-15.3 Comment on above: Performed By: #### C BC, BMP #### [place] [address] [place] Erythrocytes [#/volume] in B lood by Automated countOrdered By: Neptali Esquivel on 09-27-2023 RBC (Bld) [#/Vol] 4.52 10*6/uL Normal 3.60-5.00 [facility] Comment on above: Performed By: #### C BC, BMP #### [facility] [address] [place] [address] [place] Glucose [Mass/volume] in Ser um or PlasmaOrdered By: Neptali Esquivel on 09-27-2023 Glucose [Mass/Vol] 96 mg/dL Normal 70-100 [facility] Comment on above: ADA recommended refe rence rangeRandom Glucose Reference Range is dependent on time and content of last meal. Glucose of more than 200 mg/dL in a nonstressed, ambulatory subject supports the diagnosis of Diabetes Mellitus. Result Comment: [place] Glucose Reference Range is dependent on time and content of last meal. Glucose of more than 200 mg/dL in a nonstressed, ambulatory subject supports the diagnosis of Diabetes Mellitus. ADA recommended reference range Performed By: #### C BC, BMP #### [place] [address] [place] HCG ( test) IA.rapi d Ql (U)Ordered By: Neptali Esquivel on 09-27-2023 HCG ( test) Ql (U) Negative HCG,Urineon 09-27-2023 Beta HCG ( test) Ql (U) Negative Normal [facility] Comment on above: Order Comment: Name Collection Type:: Clean-Voided Midstream Result Comment: PERF ORMED BY: [place] [address] PATHOLOGIST DEVELOPER PROGRAMMER ANALYST ALEXANDER SANDERS M.D. Performed By: #### U HCG, UA #### [address] Hematocrit [Volume Fraction] of Blood by Automated countOrdered By: Neptali Esquivel on 09-27-2023 Hematocrit (Bld) [Volume fraction] 40.3 % Normal 34.0-46.4 Comment on above: Performed By: #### C BC, BMP #### [address] Hemoglobin [Mass/volume] in BloodOrdered By: Neptali Esquivel on 09-27-2023 Hemoglobin (Bld) [Mass/Vol] 13.7 g/dL Normal 11.8-15.4 Comment on above: Performed By: #### C BC, BMP #### [address] Ketones Auto test strip (U) [Mass/Vol]Ordered By: Neptali Esquivel on 09-27-2023 Ketones (U) [Mass/Vol] Negative Negative [facility] Leukocytes [#/volume] correc rosy for nucleated erythrocytes in Blood by Automated counOrdered By: Neptali Esquivel on 09-27-2023 WBC corrected for nucl RBC Auto (Bld) [#/Vol] 6.7 10*3/uL 3.8-11.6 Leukocytes [#/volume] in Blo od by Automated countOrdered By: Neptali Esquivel on 09-27-2023 WBC (Bld) [#/Vol] 6.7 10*3/uL Normal 3.8-11.6 [facility] Comment on above: Performed By: #### C BC, BMP #### [address] [place] [address] [place] Lymphocytes [#/volume] in Bl ood by Automated countOrdered By: Neptali Esquivel on 09-27-2023 Lymphocytes (Bld) [#/Vol] 1.4 10*3/uL Normal 1.00-4.8 Comment on above: Performed By: #### C BC, BMP #### [address] Lymphocytes/100 leukocytes i n Blood by Automated countOrdered By: Neptali Esquivel on 09-27-2023 Lymphocytes/100 WBC (Bld) 21.2 % Normal . Comment on above: Performed By: #### C JOY, BMP #### [address] MCH [Entitic mass] by Automa rosy countOrdered By: Neptali Esquivel on 09-27-2023 MCH (RBC) [Entitic mass] 30.3 pg Normal 24.7-34.3 Comment on above: Performed By: #### C BC, BMP #### [address] MCHC Auto (RBC) [Mass/Vol]Or dered By: Neptali Esquivel on 09-27-2023 MCHC (RBC) [Mass/Vol] 34.0 g/dL 32.0-35.0 [facility] MCV [Entitic volume] by Auto mated countOrdered By: Neptali Esquivel on 09-27-2023 MCV (RBC) [Entitic vol] 89.1 fL Normal 80-100 [facility] Comment on above: Performed By: #### C BC, BMP #### [address] Monocyte distribution width [Entitic volume] in Blood by AutomatedOrdered By: Neptali Esquivel on 09-27-2023 Monocyte distribution width Auto (Bld) [Entitic vol] 16.50 % 0.00-20.00 Neutrophils [#/volume] in Bl ood by Automated countOrdered By: Neptali Esquivel on 09-27-2023 Neutrophils (Bld) [#/Vol] 4.9 10*3/uL Normal 1.8-7.7 Comment on above: Performed By: #### C JOY, BMP #### [facility] [address] Nitrite Test strip Ql (U)Ord ered By: Neptali Esquivel on 09-27-2023 Nitrite Ql (U) Negative Negative No Panel InformationOrdered By: Neptali Esquivel on 09-27-2023 Estimated GFR (CKD-EPI) > 60.0 mL/Min Pharmacy Creatinine Clearance (Chem 93.76 Nucleated erythrocytes [Pres ence] in Blood by Automated countOrdered By: Neptali Esquivel on 09-27-2023 Nucleated RBC Auto Ql (Bld) 0.2 /100{WBC} 0-0.5 Platelet mean volume [Entiti c volume] in Blood by Automated countOrdered By: Neptali Esquivel on 09-27-2023 Platelet mean volume (Bld) [Entitic vol] 7.5 fL Normal 6.3-10.7 Comment on above: Performed By: #### C JOY, BMP #### [address] Platelets [#/volume] in Bloo d by Automated countOrdered By: Neptali Esquivel on 09-27-2023 Platelets (Bld) [#/Vol] 375 10*3/uL Normal 150-450 Comment on above: Performed By: #### C JOY, BMP #### [place] [address] [place] Potassium [Moles/volume] in Serum or PlasmaOrdered By: Neptali Esquivel on 09-27-2023 Potassium [Moles/Vol] 3.6 mmol/L Normal 3.5-5.1 [facility] Comment on above: Performed By: #### C JOY, BMP #### [address] Protein Auto test strip (U) [Mass/Vol]Ordered By: Neptali Esquivel on 09-27-2023 Protein (U) [Mass/Vol] Negative Negative [facility] Serum or plasma anion gap de terminationOrdered By: Neptali Esquivel on 09-27-2023 Anion gap [Moles/Vol] 8.3 mmol/L Normal 6.0-15.0 [facility] Comment on above: Performed By: #### C BC, BMP #### [address] Sodium [Moles/volume] in Ser um or PlasmaOrdered By: Neptali Esquivel on 09-27-2023 Sodium [Moles/Vol] 140 mmol/L Normal 136-145 [facility] Comment on above: Performed By: #### C JOY, BMP #### [address] Specific gravity Auto test s trip (U) [Rel density]Ordered By: Neptali Esquivel on 09-27-2023 Specific gravity (U) [Rel density] 1.007 1.001-1.030 Urea nitrogen [Mass/volume] in Serum or PlasmaOrdered By: Neptali Esquivel on 09-27-2023 Urea nitrogen [Mass/Vol] 7 mg/dL Normal 7-25 Comment on above: Performed By: #### C BC, BMP #### [address] Urinalysison 09-27-2023 Appearance (U) Clear Normal Clear [facility] Comment on above: Order Comment: Name Collection Type:: Clean-Voided Midstream Performed By: #### U HCG, UA #### [address] Bilirubin,Urine Negative Normal Negative [facility] Comment on above: Order Comment: Name Collection Type:: Clean-Voided Midstream Performed By: #### U HCG, UA #### [address] Glucose Ql (U) Normal Normal Normal [facility] Comment on above: Order Comment: Name Collection Type:: Clean-Voided Midstream Performed By: #### U HCG, UA #### [address] Ketones Ql (U) Negative Normal Negative [facility] Comment on above: Order Comment: Name Collection Type:: Clean-Voided Midstream Performed By: #### U HCG, UA #### [address] Leukocyte esterase Test strip Ql (U) Negative Normal Negative [facility] Comment on above: Order Comment: Name Collection Type:: Clean-Voided Midstream Performed By: #### U HCG, UA #### [place] [address] [place] Nitrite,Urine Negative Normal Negative [facility] Comment on above: Order Comment: Name Collection Type:: Clean-Voided Midstream Performed By: #### U HCG, UA #### [address] Occult Blood,Urine Negative Normal Negative [facility] Comment on above: Order Comment: Name Collection Type:: Clean-Voided Midstream Performed By: #### U HCG, UA #### [address] Protein,Urine Negative Normal Negative [facility] Comment on above: Order Comment: Name Collection Type:: Clean-Voided Midstream Performed By: #### U HCG, UA #### [place] [address] [place] Specificy [place],Urine 1.007 Normal 1.001-1.030 [facility] Comment on above: Order Comment: Name Collection Type:: Clean-Voided Midstream Performed By: #### U HCG, UA #### [place] [address] [place] Urobilinogen,Urine Normal Normal Normal [facility] Comment on above: Order Comment: Name Collection Type:: Clean-Voided Midstream Performed By: #### U HCG, UA #### [place] [id number] [place] Urine clarity by refractomet ry automatedOrdered By: Neptali Esquivel on 09-27-2023 Clarity Refractometry automated (U) Clear Clear Urine glucose measurement by automated test strip (mass/volume)Ordered By: Neptali Esquivel on 09-27-2023 Glucose Auto test strip (U) [Mass/Vol] Normal mg/dL Normal Urine hemoglobin detection b y automated test stripOrdered By: Neptali Esquivel on 09-27-2023 Hemoglobin Auto test strip Ql (U) Negative Negative Urine leukocyte esterase det ection by automated test stripOrdered By: Neptali Esquivel on 09-27-2023 Leukocyte esterase Auto test strip Ql (U) Negative Negative Urine pH measurement by auto mated test stripOrdered By: Neptali Esquivel on 09-27-2023 pH (U) 7.0 [pH] Normal 5.0-9.0 Comment on above: Order Comment: Name Collection Type:: Clean-Voided Midstream Performed By: #### U HCG, UA #### [address] Urobilinogen Auto test strip (U) [Mass/Vol]Ordered By: Neptali Esquivel on 09-27-2023 Urobilinogen (U) [Mass/Vol] Normal mg/dL Normal Consent for Treatmenton 08-28 Consent for Treatment [id number]#1 .00TIFF Normal [facility] Discharge Instructionson Discharge Instructions [id number]# 1.00TIFF Normal [facility] ED Clinical Summaryon 2023 ED Clinical Summary [place] [id number] ED Clinical Summary Person Information Name: ALEJANDRA REAL [place] Age: 27 Years : 1995 Sex: Female Language: [place] PCP: Krystle Ireland CNP Marital Status: Single Phone: [phone] Visit Id: Visit Reason: Dysuria; Abdominal pain; [...] 16:26:05 ADDRESS: [address] [facility] [id number] PHYS DOC NOTES: MEDICAL INFORMATION: Prescriptions Given: Medications to Continue Taking That Have Changed [id number], [address] [place] [id number], [phone] START: phenazopyridine (Pyridium 200 mg Tab) 1 [...] Instructions: Dysuria Follow up: With: Address: When: Krystle Ireland [address] [place] [address], [facility], [address] [place] [address] Business (1) In 3 days 09/29/2023 DIAGNOSIS: 1:Dysuria Normal [facility] ED Note-Physicianon 09-26-19 ED Note-Physician Basic Information [...] day(s), # 21 tab(s), Refills(s) 0, Pharmacy: [id number], 160, cm, 09/26/23 15:23:00 EDT, Height/Length Dosing, 65, kg, 09/26/23 15:23:00 EDT, Weight Dosing U Beta Hcg Qual UA with Cult Rflx Disposition Plan Patient Discharge Condition Stable Discharge Disposition Home Discharge Prescription List Prescriptions Pyridium 200 mg Tab, 200 mg= 1 tab(s), Oral, TID Follow-up With When Contact Information Krystle Ireland In 3 days 09/29/2023 EDT [address] [facility], [address] [place] [id number] Business (1) Additional Instructions: Patient Education Dysuria Attestation I performed a substantive part of the MDM during the patient?s E/M visit. I personally made or a (more content not included)... Normal [facility] Comment on above: Result Comment: Elec tronically [...] these instructions at home: Medicines ? Take ddos-snp-zdxfnmi and prescription medicines only as told by [...] provider. Document Revised: 11/24/2020 Document Reviewed: 11/24/2020 [employer] Patient Education ? 2022 [employer] Normal [facility] ED Patient Summaryon 024 ED Patient Summary [place] [id number] Patient Discharge Instructions Person Information Name: ALEJANDRA REAL Age: 27 Years Arrival Date: 09/26/2023 15:06:51 Discharge Diagnosis: 1:Dysuria Primary Care Physician: Krystle Ireland CNP Provider Information Primary Provider: Darren Lomax DO Advanced Aqu[employer] Director:None The exam and treatment you received in the Emergency Department were for an urgent problem and are not intended as complete care. It is important that you follow up with a doctor, nurse practitioner, or physician?s safety admin assistant for ongoing care. If your symptoms become worse or you do not improve as expected and you are unable to reach your usual health care provider, you should return to the Emergency Department. We are available 24 hours a day. ALEJANDRA REAL has been given the following list of patient education materials, prescriptions and follow-up instructions: Follow-up Instructions: With: Address: When: Krystle Beka [address] [place] [address], [address] [place], [place] [id number] [employer]erall ([employer] In 3 days 09/29/2023 In the event that this physician does not participate in your insurance network, please consult with your insurance company to find a nearby participating provider. 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 National Helpline at 8-938-748-HELP. v Source: Department of Health and (more content not included)... Normal [facility] SEROLOGYOrdered By: Della Johnston on 09-26-2023 HCG.beta subunit (U) [Moles/Vol] Negative Normal [facility] Man Sero U BetaHcg Qualon 09-26-2023 HCG.beta subunit (U) [Moles/Vol] Negative Normal [facility] Comment on above: Performed By: #### 2 [id number] #### [facility] [address] [place] [address] UA with Cult Rflxon 09-26-19 24 Bilirubin Ql (U) Negative Normal Negative [facility] Comment on above: Performed By: #### 4 [id number] ####[facility] [address] [place] [address] Clarity (U) Clear Normal Clear [facility] Comment on above: Performed By: #### 4 [id number] ####[address] [address] Color (U) Colorless Abnormal Yellow [facility] Comment on above: Result Comment: Micr oscopic readings are only performed on those samples that meet specific criteria set forth by [facility]. Performed By: #### 4 [id number] ####[address] [address] Glucose Ql (U) Negative Normal Negative [facility] Comment on above: Performed By: #### 4 [id number] ####[address] [address] Hemoglobin Auto test strip (U) [Mass/Vol] Negative Normal Negative [facility] Comment on above: Performed By: #### 4 [id number] ####[address] [address] Ketones Auto test strip Ql (U) Negative Normal Negative [facility] Comment on above: Performed By: #### 4 [id number] ####[address] [address] Leukocyte esterase Auto test strip Ql (U) Negative Normal Negative [facility] Comment on above: Performed By: #### 4 [id number] ####[facility] [address] [place] [address] Nitrite Auto test strip Ql (U) Negative Normal Negative [facility] Comment on above: Performed By: #### 4 [id number] ####[place] [address] [place] [address] pH (U) 7.5 [pH] Invalid Interpretation Code 5.0-9.0 [facility] Comment on above: Performed By: #### 4 [id number] ####[facility] [address] [place] [address] Protein Ql (U) Negative Normal Negative [facility] Comment on above: Performed By: #### 4 [id number] ####[facility] [address] [place] [address] Specific gravity (U) [Rel density] 1.008 Invalid Interpretation Code 1.005-1.030 [facility] Comment on above: Performed By: #### 4 [id number] ####[facility] [address] [place] [address] Urobilinogen (U) [Mass/Vol] Negative Normal Negative [facility] Comment on above: Performed By: #### 4 [id number] ####[address] [address] Type of Urine collection method Clean Catch Normal [facility] Comment on above: Performed By: #### 4 [id number] ####[facility] [address] [place], [place] [id number] URINALYSISOrdered By: SYSTEM SYSTEM on 09-26-2023 Bilirubin Ql (U) Negative Normal Negativemg/ d L [facility] UA Auto SS Clarity (U) Clear (09/26/23 3:25 PM) Normal Clear [facility] UA Auto SS Color (U) Colorless 1 *ABN* (09/26/23 3:25 PM) Invalid Interpretation Code Yellow [facility] UA Auto SS Comment on above: Interpretive Data: M icroscopic readings are only performed on those samples that meet specific criteria set forth by [facility]. Glucose Ql (U) Negative Normal Negativemg/d [...] Clean Catch (09/26/23 3:25 PM) Normal [facility] UA Auto SS Work Phone: Insurance Correspondenceon 0 09-25-2023 Insurance Correspondence [id number] #1.00TIFF Normal [facility] Consent for Treatmenton 08-27 Consent for Treatment [id number]#1 .00TIFF Normal [facility] Discharge Instructionson Discharge Instructions [id number]# 1.00TIFF Normal [facility] ED Clinical Summaryon 2023 ED Clinical Summary [address] [address] ED Clinical Summary Person Information Name: ALEJANDRA REAL [facility] Age: 27 Years : 1995 Sex: Female Language: [place] PCP: Krystle Ireland CNP Marital Status: Single Phone: [phone] Visit Id: Visit Reason: Dysuria; Abdominal pain; [...] 16:32:50 ADDRESS: [address] [facility] [id number] PHYS DOC NOTES: MEDICAL INFORMATION: Prescriptions Given: New Medications [id number], [address] [place], [place] [id number], [phone] phenazopyridine (Pyridium 100 mg Tab) 1 Tablets By Mouth 3 times a day for 3 Days. Refills: 0. Medications to Continue Taking That Have Changed [id number], [address] [place], [place] [id number], [phone] START: tramadol (traMADOL 50 mg Tab) 1 [...] up: With: Address: When: Fatoumata Gooden [address] [place] [address] uberall (1) In 3 days 09/27/2023 Comments: Call Dr for diagnosis based follow up With: Address: When: Krystle Ireland [address] [facility], [address] [place] [address] Business (1) In 3 days 09/27/2023 Comments: Call Dr for diagnosis based follow up DIAGNOSIS: Dysuria Normal [facility] ED Patient Education Noteon 09-24-2023 ED Patient [...] these instructions at home: Medicines ? Take esmt-vkp-uqdyhxx and prescription medicines only as told by [...] Reviewed: 11/24/2020 Else[employer] Patient Education ? 2022 [employer] Normal [facility] ED Patient Summaryon 024 ED Patient Summary [place] [id number] Patient Discharge Instructions Person Information Name: ALEJANDRA REAL Age: 27 Years Arrival Date: 09/24/2023 15:26:09 Discharge Diagnosis: Dysuria Primary Care Physician: Krystle Ireland CNP Provider Information Primary Provider: Advanced Aqu[employer] Director:None The exam and treatment you received in the Emergency Department were for an urgent problem and are not intended as complete care. It is important that you follow up with a doctor, nurse practitioner, or physician?s safety admin assistant for ongoing care. If your symptoms [...] Follow-up Instructions: With: Address: When: Fatoumata Gooden [address] [place] [address] [facility] (1) In 3 days 09/27/2023 Comments: Call Dr for diagnosis based follow up With: Address: When: Krystle Ireland [address] [place] [address], [address] [place] [address] [facility] () In 3 days 09/27/2023 Comments: Call [...] opioids can be used to help relieve juemzaot-nj-nderjq pain and are often prescribed following a [...] If yo (more content not included)... Normal [facility] UA with Cult Rflxon 09-24-19 24 Bilirubin Ql (U) Negative Normal Negative [facility] Comment on above: Performed By: #### 4 [id number] #### [facility] [address] [place] [address] Clarity (U) Clear Normal Clear [facility] Comment on above: Performed By: #### 4 [id number] #### [facility] [address] [place] [address] Color (U) Light-Yellow Normal Yellow [facility] Comment on above: Result Comment: Micr oscopic readings are only performed on those samples that meet specific criteria set forth by [facility]. Performed By: #### 4 [id number] #### [facility] [address] [place] [address] Glucose Ql (U) Negative Normal Negative [facility] Comment on above: Performed By: #### 4 [id number] #### [facility] [address] [place] [address] Hemoglobin Auto test strip (U) [Mass/Vol] Trace Abnormal Negative [facility] Comment on above: Performed By: #### 4 [id number] #### [facility] [address] [place] [address] Ketones Auto test strip Ql (U) Negative Normal Negative [facility] Comment on above: Performed By: #### 4 [id number] #### [facility] [address] [place] [address] Leukocyte esterase Auto test strip Ql (U) Negative Normal Negative [facility] Comment on above: Performed By: #### 4 [id number] #### [facility] [address] [place] [address] Nitrite Auto test strip Ql (U) Negative Normal Negative [facility] Comment on above: Performed By: #### 4 [id number] #### [facility] [address] [place] [address] pH (U) 6.0 [pH] Invalid Interpretation Code 5.0-9.0 [facility] Comment on above: Performed By: #### 4 [id number] #### [facility] [address] [place] [address] Protein Ql (U) Negative Normal Negative [facility] Comment on above: Performed By: #### 4 [id number] #### [facility] [address] [place] [address] Specific gravity (U) [Rel density] 1.014 Invalid Interpretation Code 1.005-1.030 [facility] Comment on above: Performed By: #### 4 [id number] #### [facility] [address] [place] [address] Urobilinogen (U) [Mass/Vol] Negative Normal Negative [facility] Comment on above: Performed By: #### 4 [id number] #### [facility] [address] [place] [address] Type of Urine collection method Clean Catch Normal [facility] Comment on above: Performed By: #### 4 [id number] #### [facility] [address] [place] [address] URINALYSISOrdered By: SYSTEM SYSTEM on 09-24-2023 Bilirubin Ql (U) Negative Normal Negativemg/ d L [facility] UA Auto SS Clarity (U) Clear (09/24/23 4:02 PM) Normal Clear [facility] UA Auto SS Color (U) Light-Yellow 1 (09/24/23 4:02 PM) Normal Yellow [facility] UA Auto SS Comment on above: Interpretive Data: M icroscopic readings are only performed on those samples that meet specific criteria set forth by [facility]. Glucose Ql (U) Negative Normal Negativemg/d L [facility] UA Auto SS Hemoglobin Auto test strip (U) [Mass/Vol] Trace mg/dL Invalid Interpretation Code Negativemg/d L [facility] UA Auto SS Ketones Auto test strip Ql (U) Negative Normal Negativemg/d L [facility] UA Auto SS Leukocyte esterase Auto test strip Ql (U) Negative Normal NegativeLeu/ uL [facility] UA Auto SS Nitrite Auto test strip Ql (U) Negative Normal Negativemg/d L [facility] UA Auto SS pH (U) 6.0 *NA* (09/24/23 4:02 PM) Invalid Interpretation Code 5.0 - 9.0 [facility] UA Auto SS Protein Ql (U) Negative Normal Negativemg/d L [facility] UA Auto SS Specific gravity (U) [Rel density] 1.014 *NA* (09/24/23 4:02 PM) Invalid Interpretation Code 1.005 - 1.030 [facility] UA Auto SS Urobilinogen (U) [Mass/Vol] Negative Normal Negativemg/d L [facility] UA Auto SS URINALYSISOrdered By: Ulisses hamptonrson on 09-24-2023 UA Spec Desc Clean Catch (09/24/23 4:02 PM) Normal [facility] UA Auto SS Work Phone: B hCG Qualon 09-20-2023 Beta HCG ( test) Ql Negative Normal [facility] Comment on above: Performed By: #### 2 [id number] #### [facility] [address] [place] [address] BMPOrdered By: SYSTEM SYSTEM on 09-20-2023 Anion gap [Moles/Vol] 10 mmol/L Normal 6-16 Rem isol Chem Comment on above: Performed By: #### 2 [id number] #### [facility] [address] [place] [address] Calcium [Mass/Vol] 9.0 mg/dL Normal 8.9-11.1 Remiso l Chem Comment on above: Performed By: #### 2 [id number] #### [facility] [address] [place] [address] Chloride [Moles/Vol] 107 mmol/L Normal 101-111 Donald isha Chem Comment on above: Performed By: #### 2 [id number] #### [facility] [address] [place] [address] CO2 [Moles/Vol] 27 mmol/L Normal 21-31 Remisol C hem Comment on above: Performed By: #### 2 [id number] #### [facility] [address] [place] [address] Creatinine [Mass/Vol] 0.8 mg/dL Normal 0.5-1.3 Rem isol Chem Comment on above: Performed By: #### 2 [id number] #### [facility] [address] [place] [address] Glucose [Mass/Vol] 116 mg/dL Normal 55-199 Remiso l Chem Comment on above: Performed By: #### 2 [id number] #### [facility] [address] [place] [address] Potassium [Moles/Vol] 4.0 mmol/L Normal 3.5-5.3 Rem isol Chem Comment on above: Performed By: #### 2 [id number] #### [facility] [address] [place] [address] Sodium [Moles/Vol] 140 mmol/L Normal 135-145 Remiso l Chem Comment on above: Performed By: #### 2 [id number] #### [facility] [address] [place] [address] Urea nitrogen [Mass/Vol] 10 mg/dL Normal 5-21 Remisol Chem Comment on above: Performed By: #### 2 [id number] #### [facility] [address] [place] [address] BMPon 09-20-2023 Urea nitrogen/Creatinine [Mass ratio] 12 No Units Normal 10-20 [facility] Comment on above: Performed By: #### 2 [id number] #### [facility] [address] [place] [address] CBC w/ Auto DiffOrdered By: SYSTEM SYSTEM on 09-20-2023 Basophils/100 WBC (Bld) 0.2 % Normal 0.0-2.0 R emisol Heme Comment on above: Performed By: #### 2 [id number] #### [facility] [address] [place] [address] Basophils/Leukocytes Auto (Bld) [Pure # fraction] 0.0 E9/L Normal 0.0-0.2 Remisol Heme Comment on above: Performed By: #### 2 [id number] #### [facility] [address] [place] [address] Eosinophils (Bld) [#/Vol] 0.1 E9/L Normal 0.0-0.5 Remisol Heme Comment on above: Performed By: #### 2 [id number] #### [facility] [address] [place] [address] Eosinophils/100 WBC (Bld) 1.6 % Normal 0.0-8.0 Remisol Heme Comment on above: Performed By: #### 2 [id number] #### [facility] [address] [place] [address] Erythrocyte distribution width (RBC) [Ratio] 13.5 % Normal 10.9-14.2 Remisol Heme Comment on above: Performed By: #### 2 [id number] #### [facility] [address] [place] [address] Hematocrit (Bld) [Volume fraction] 37.8 % Normal 34.0-46.0 Remisol Heme Comment on above: Performed By: #### 2 [id number] #### [facility] [address] [place] [address] Hemoglobin (Bld) [Mass/Vol] 13.7 g/dL Normal 12.0-16.0 Remisol Heme Comment on above: Performed By: #### 2 [id number] #### [facility] [address] [place] [address] Lymphocytes (Bld) [#/Vol] 1.8 E9/L Normal 1.0-4.0 Remisol Heme Comment on above: Performed By: #### 2 [id number] #### [facility] [address] [place] [address] Lymphocytes/100 WBC (Bld) 23.9 % Normal 14.0-50.0 Remisol Heme Comment on above: Performed By: #### 2 [id number] #### [facility] [address] [place] [address] MCH (RBC) [Entitic mass] 32.0 pg Normal 27.0-34.0 Remisol Heme Comment on above: Performed By: #### 2 [id number] #### [facility] [address] [place] [address] MCHC (RBC) [Mass/Vol] 36.1 g/dL High 31.4-36.0 Rem isol Heme Comment on above: Performed By: #### 2 [id number] #### [facility] [address] [place] [address] MCV (RBC) [Entitic vol] 88.8 fL Normal 80.0-100.0 R emisol Heme Comment on above: Performed By: #### 2 [id number] #### [facility] [address] [place] [address] Monocytes (Bld) [#/Vol] 0.6 E9/L Normal 0.2-1.0 R emisol Heme Comment on above: Performed By: #### 2 [id number] #### [facility] [address] [place] [address] Neutrophils (Bld) [#/Vol] 5.0 E9/L Normal 2.0-7.5 Remisol Heme Comment on above: Performed By: #### 2 [id number] #### [facility] [address] [place] [address] Neutrophils/100 WBC (Bld) 66.8 % Normal 36.0-75.0 Remisol Heme Comment on above: Performed By: #### 2 [id number] #### [facility] [address] [place] [address] Platelet 409.0 E9/L Normal 150.0-500.0 Remisol Heme Comment on above: Performed By: #### 2 [id number] #### [facility] [address] [place] [address] Platelet mean volume (Bld) [Entitic vol] 7.0 fL Normal 6.4-10.8 Remisol Heme Comment on above: Performed By: #### 2 [id number] #### [facility] [address] [place] [address] RBC (Bld) [#/Vol] 4.3 E12/L Normal 4.3-5.9 Remisol Heme Comment on above: Performed By: #### 2 [id number] #### [facility] [address] [place] [address] WBC corrected for nucl RBC Auto (Bld) [#/Vol] 7.5 E9/L Normal 4.0-11.0 Remisol H jessica Comment on above: Performed By: #### 2 [id number] #### [facility] [address] [place] [address] CHEMISTRYOrdered By: SYSTEM SYSTEM on 09-20-2023 Albumin/Globulin [...] Treatmenton 08-27 Consent for Treatment [id number] .00TIFF Normal [facility] Discharge Instructionson Discharge Instructions [id number]# 1.00TIFF Normal [facility] ED Clinical Summaryon 2023 ED Clinical Summary [address] [address] ED Clinical Summary Person Information Name: ALEJANDRA REAL [place] Age: 27 Years : 1995 Sex: Female Language: Equ[place]inean PCP: [place] MOLDER MEAT, Krystle L Marital Status: Single Phone: [phone] Visit Id: Visit Reason: Dysuria; Nausea; Abdominal [...] 15:32:50 ADDRESS: [address] [facility] [id number] PHYS DOC NOTES: MEDICAL INFORMATION: Prescriptions Given: Medications to Continue Taking That Have Changed [facility]/pharmacy #[id number], [address] [place], [place] [id number], [phone] START: ondansetron (ondansetron 4 mg Dis Tab) [...] INFORMATION: Instructions: Follow up: With: Address: When: Krystle Ireland [address] [place] [address], [facility], [address] [place] [phone] uberall (1) In 3 days DIAGNOSIS: Abdominal pain; Nausea Normal [facility] ED Note-Physicianon 09-20-19 ED Note-Physician Basic Information Time Seen: Justo Arias DO 09/20/2023 12:41 Chief Complaint c/o worsening nausea [...] day(s), # 12 tab(s), Refills(s) 0, Pharmacy: [facility] #[id number], 160, cm, 09/20/23 12:38:00 EDT, Height/Length Dosing, 65.1, kg, 09/20/23 12:38:00 EDT, Weight Dosing Nausea (R11.0: Nausea) Orders: ondansetron, 4 mg = 1 tab(s), Oral, q6hr, X 3 day(s), # 10 tab(s), Refills(s) 0, Pharmacy: [facility]/pharmacy #[id number], 160, cm, 09/20/23 12:38:00 EDT, Height/Length Dosing, 65.1, kg, 09/20/23 12:38:00 EDT, Weight Dosing Basic Metabolic Panel Beta hCG Qual CBC w/ Auto Diff eGFR Hepatic Function Panel Lipase Level Disposition Plan Discharge Prescription List Prescriptions ondansetron 4 mg Dis Tab, 4 mg= 1 tab(s), Oral, q6hr Ultram 50 mg Tab, 50 mg= 1 tab(s), Oral, q6hr Follow-up With When Contact Information Krystle Ireland In 3 days [address] [facility], [address] [place] [address]- Business (1) Additional Instructions: Problem List/Past Medical [...] Alcohol Use, (more content not included)... Normal [facility] Comment on above: Result Comment: Elec tronically Signed By: Justo Arias DO\.br\Date and Time Signed: 09/20/23 15:21 EDT ED Patient Education Noteon 09-20-2023 ED Patient Education Note Normal [facility] ED Patient Summaryon 024 ED Patient Summary [facility] [address] [place], [place] [address] Patient Discharge Instructions Person Information Name: ALEJANDRA REAL Age: 27 Years [facility]: [id number] Arrival Date: 09/20/2023 12:19:55 Discharge Diagnosis: Abdominal pain; Nausea Primary Care Physician: Krystle Ireland CNP Provider Information Primary Provider: Justo Arias DO Advanced Aquatics Director:None The exam and treatment you received in the Emergency Department were for an urgent problem and are not intended as complete care. It is important that you follow up with a doctor, nurse practitioner, or physician?s safety admin assistant for ongoing care. If your symptoms become worse or you do not improve as expected and you are unable to reach your usual health care provider, you should return to the Emergency Department. We are available 24 hours a day. ALEJANDRA REAL has been given the following list of patient education materials, prescriptions and follow-up instructions: Follow-up Instructions: With: Address: When: Krystle Ireland [address] [place] [address], [address] [place] [phone] Business (1) In 3 days In the event that this physician does not participate in your insurance network, please consult with your insurance company to find a nearby participating provider. Patient Education Materials: A MESSAGE TO ALL PATIENTS REGARDING OPIOIDS PRESCRIPTION OPIOIDS: WHAT YOU NEED TO KNOW Prescription opioids can be used to help relieve gwzeixkq-fg-jgyulv pain and are often prescribed following a [...] be struggling with addiction, tell your health director career and ask for guidance or call [facility] National Helpline at 1-777-751-IWAR. v Source: [place] Department of Health and Human Serv (more content not included)... Normal [facility] HEMATOLOGYOrdered By: SYSTEM SYSTEM on 09-20-2023 Monocytes/100 WBC (Bld) 7.5 % Normal 4.0 - 14.0 % Remisol Heme Hep Func PanelOrdered By: Factorli SYSTEM on 09-20-2023 Albumin [Mass/Vol] 4.4 g/dL Normal 3.3-5.0 Remiso l Chem Comment on above: Performed By: #### 2 [id number] #### [facility] [address] [place] [address] Bilirubin [Mass/Vol] 0.3 mg/dL Normal 0.0-1.1 Donald isha Chem Comment on above: Performed By: #### 2 [id number] #### [facility] [address] [place] [address] Bilirubin.direct [Mass/Vol] 0.1 mg/dL Normal 0.0-0.4 Remisol Chem Comment on above: Performed By: #### 2 [id number] #### [facility] [address] [place] [address] Bilirubin.indirect [Mass or moles/Vol] 0.2 mg/dL Normal 0.1-0.9 Remisol Chem Comment on above: Performed By: #### 2 [id number] #### [facility] [address] [place] [address] Globulin (S) [Mass/Vol] 2.8 g/dL Normal 1.4-4.0 R emisol Chem Comment on above: Performed By: #### 2 [id number] #### [facility] [address] [place] [address] Protein [Mass/Vol] 7.2 g/dL Normal 6.0-7.8 Remiso l Chem Comment on above: Performed By: #### 2 [id number] #### [facility] [address] [place] [address] Hep Func Panelon 09-20-2023 Albumin/Globulin (S) [Mass conc ratio] 1.6 Normal 1.1-2.2 [facility] Comment on above: Performed By: #### 2 [id number] #### [facility] [address] [place] [address] ALP [Catalytic activity/Vol] 130 Int._Unit/L High 21-98 [facility] Comment on above: Performed By: #### 2 [id number] #### [facility] [address] [place] [address] ALT No additional P-5'-P [Catalytic activity/Vol] 12 Int._Unit/L Normal 6-46 [facility] Comment on above: Performed By: #### 2 [id number] #### [facility] [address] [place] [address] AST [Catalytic activity/Vol] 14 Int._Unit/L Normal 5-43 [facility] Comment on above: Performed By: #### 2 [id number] #### [facility] [address] [place] [address] Lipase LevelOrdered By: SlideBatch SYSTEM on 09-20-2023 Lipase [Catalytic activity/Vol] 47 U/L Normal 13-58 Remisol Chem Comment on above: Performed By: #### 2 [id number] #### [facility] [address] [place] [address] SEROLOGYOrdered By: Brii Walters on 09-20-2023 HCG.beta subunit (U) [Moles/Vol] Negative Normal [facility] Man Sero Beta HCG ( test) Ql Negative (09/20/23 1:00 PM) Normal [facility] Man Sero U BetaHcg Qualon 09-20-2023 HCG.beta subunit (U) [Moles/Vol] Negative Normal [facility] Comment on above: Performed By: #### 2 [id number] #### [facility] [address] [place] [address] UA with Cult Rflxon 09-20-19 Bilirubin Ql (U) Negative Normal Negative [facility] Comment on above: Performed By: #### 4 [id number] #### [facility] [address] [place] [address] Clarity (U) Turbid Abnormal Clear [facility] Comment on above: Performed By: #### 4 [id number] #### [facility] [address] [place] [address] Color (U) Light-Yellow Normal Yellow [facility] Comment on above: Result Comment: Micr oscopic readings are only performed on those samples that meet specific criteria set forth by [facility]. Performed By: #### 4 [id number] #### [facility] [address] [place] [address] Epithelial cells.squamous Auto (Urine sed) [#/Area] 0-2 Normal 0-2 [facility] Comment on above: Performed By: #### 4 [id number] #### [facility] [address] [place] [address] Glucose Ql (U) Negative Normal Negative [facility] Comment on above: Performed By: #### 4 [id number] #### [facility] [address] [place] [address] Hemoglobin Auto test strip (U) [Mass/Vol] Negative Normal Negative [facility] Comment on above: Performed By: #### 4 [id number] #### [facility] [address] [place] [address] Ketones Auto test strip Ql (U) Negative Normal Negative [facility] Comment on above: Performed By: #### 4 [id number] #### [facility] [address] [place] [address] Leukocyte esterase Auto test strip Ql (U) Negative Normal Negative [facility] Comment on above: Performed By: #### 4 [id number] #### [facility] [address] [place] [address] Mucus Auto Ql (U) Trace Normal Negative [facility] Comment on above: Performed By: #### 4 [id number] #### [facility] [address] [place] [address] Nitrite Auto test strip Ql (U) Negative Normal Negative [facility] Comment on above: Performed By: #### 4 [id number] #### [facility] [address] [place] [address] pH (U) 7.0 [pH] Invalid Interpretation Code 5.0-9.0 [facility] Comment on above: Performed By: #### 4 [id number] #### [facility] [address] [place] [address] Protein Ql (U) Negative Normal Negative [facility] Comment on above: Performed By: #### 4 [id number] #### [facility] [address] [place] [address] RBC Ql (U) 0-3 Normal 0-3 [facility] Comment on above: Performed By: #### 4 [id number] #### [facility] [address] [place] [address] Specific gravity (U) [Rel density] 1.023 Invalid Interpretation Code 1.005-1.030 [facility] Comment on above: Performed By: #### 4 [id number] #### [facility] [address] [place] [address] Urobilinogen (U) [Mass/Vol] Negative Normal Negative [facility] Comment on above: Performed By: #### 4 [id number] #### [facility] [address] [place] [address] WBC Auto (Urine sed) [#/Area] 0-5 Normal 0-5 [facility] Comment on above: Performed By: #### 4 [id number] #### [facility] [address] [place] [address] Type of Urine collection method Clean Catch Normal [facility] Comment on above: Performed By: #### 4 [id number] #### [facility] [address] [place] [address] URINALYSISOrdered By: SYSTEM SYSTEM on 09-20-2023 Bilirubin [...] that meet specific criteria set forth by [facility]. Epithelial cells.squamous Auto (Urine sed) [#/Area] [...] Desc Clean Catch (09/20/23 1:15 PM) Normal [facility] UA Auto SS Work Phone: eGFROrdered By: SYSTEM SYSTE Yapert on 09-20-2023 eGFR 102 mL/min/1.73 m2 Normal >=59 Remiso l Chem Comment on above: Order Comment: Order added by Discern Expert. Performed By: #### 1 [id number] #### [facility] [address] [place] [address] C Urineon 09-19-2023 Bacteria identified Cx Nom (U) Microbiology PROCEDURE: Urine Culture [R1] SOURCE: U CleanCatch BODY SITE: COLLECTED DATE/TIME: 09/17/2023 04:34 EDT RECEIVED DATE/TIME: 09/17/2023 05:18 EDT START DATE/TIME: 09/17/2023 05:18 EDT FREE TEXT SOURCE: Vivian ohuston DO Don MARIAVivian FINAL REPORTS Final Report [] Verified Date/Time: 09/19/2023 07:11 EDT 5,000 cfu/ml Mixed skin contaminants Performing Locations R1: This test was performed at: [facility], [address] [place] [address], [address] , , [facility] Comment on above: Performed By: #### 2 [id number] #### [facility] [address] [place] [address] Consent for Treatmenton 08-27 Consent for Treatment [id number] .00TIFF [facility] Discharge Instructionson Discharge Instructions [id number] .00TIFF Normal [facility] ED Clinical Summaryon 2023 ED Clinical Summary [address] [address] ED Clinical Summary Person Information Name: ALEJANDRA REAL Suzi/[facility] Age: 27 Years : 1995 Sex: Female Language: [place] PCP: Krystle Ireland CNP Marital Status: Single Phone: [phone] Visit Id: Visit Reason: Abdominal pain; Hematuria; [...] 05:11:08 ADDRESS: [address] [facility] [id number] PHYS DOC NOTES: MEDICAL INFORMATION: Prescriptions Given: New Medications [facility]/pharmacy #[id number], [address] [place], [place] [id number], [phone] nitrofurantoin (Macrobid 100 mg Cap) 1 Capsules By Mouth every 12 hours for 5 Days. Refills: 0. phenazopyridine (Pyridium 200 mg Tab) 1 Tablets By Mouth 3 times a day for 3 Days. Refills: 0. Medications to Continue Taking That Have Changed [facility]/pharmacy #6173, [address] [place], [place] [id number], [phone] START: dicyclomine (Bentyl 10 mg Cap) 1 [...] EDUCATION INFORMATION: Instructions: Urinary Tract Infection, Adult, Eoko-dm-Wgwt Follow up: With: Address: When: Krystle Ireland [address] [place] [address], [facility], [address] [place] [phone] Business (1) In 3 days 09/20/2023 Comments: [...] or worsening symptoms. DIAGNOSIS: Acute UTI Normal [facility] ED Note-Physicianon 09-17-19 24 ED Note-Physician Basic [...] and Complexity of Problems Differential Diagnosis: [] [facility] Data External documents reviewed: [] My EKG [...] day(s), # 21 cap(s), Refills(s) 0, Pharmacy: [facility]/pharmacy #[id number], 160, cm, 09/17/23 4:33:00 EDT, Height/Length Dosing, 65.4, kg, 09/17/23 4:33:00 EDT, Weight Dosing nitrofurantoin, 100 mg = 1 cap(s), Oral, q12hr, X 5 day(s), # 10 cap(s), Refills(s) 0, Pharmacy: [facility]/pharmacy #[id number], 160, cm, 09/17/23 4:33:00 EDT, Height/Length [...] day(s), # 9 tab(s), Refills(s) 0, Pharmacy: [facility]/pharmacy #6173, 160, cm, 09/17/23 4:33:00 EDT, Height/Length Dosing, 65.4, kg, 09/17/23 4:33:00 EDT, Weight Dosing tramadol, 100 mg = 2 tab(s), Tab, Oral, Once, Stop date 09/17/23 4:52:00 EDT, STAT, Start date 09/17/23 4:52:00 EDT, 09/17/23 4:52:00 EDT tramadol, 50 mg = 1 tab(s), Oral, q6hr, PRN for pain, X 2 day(s), # 7 tab(s), Refills(s) 0, Pharmacy: [facility]/pharmacy #[id number], 160, cm, 09/17/23 4:33:00 EDT, Height/Length [...] PRN Follo (more content not included)... Normal [facility] Comment on above: Result Comment: Elec tronically [...] these instructions at home: Medicines ? Take uyji-mgo-apdqufs and prescription medicines only as told by [...] Reviewed: 11/24/2020 Elsevier Patient Education ? 2022 [employer] Normal [facility] ED Patient Summaryon 024 ED Patient Summary [address] [address] Patient Discharge Instructions Person Information Name: ALEJANDRA REAL Age: 27 Years Arrival Date: 09/17/2023 04:24:35 Discharge Diagnosis: Acute UTI Primary Care Physician: Krystle Ireland CNP Provider Information Primary Provider: Vivian Ochoa DO Advanced Aquatics Director:None The exam and treatment you received in the Emergency Department were for an urgent problem and are not intended as complete care. It is important that you follow up with a doctor, nurse practitioner, or physician?s safety admin assistant for ongoing care. If your symptoms become worse or you do not improve as expected and you are unable to reach your usual health care provider, you should return to the Emergency Department. We are available 24 hours a day. ALEJANDRA REAL has been given the following list of patient education materials, prescriptions and follow-up instructions: Follow-up Instructions: With: Address: When: Krystle Ireland [address] [place] [address], [facility], [address] [place] [address] Business (1) In 3 days [...] Patient Education Materials: Urinary Tract Infection, Adult, Oeou-uf-Crkb A MESSAGE TO ALL PATIENTS REGARDING OPIOIDS PRESCRIPTION OPIOIDS: WHAT YOU NEED TO KNOW Prescription opioids can be used to help relieve vjzcwktg-bm-tfqqmz pain and are often prescribed following a [...] toilet, f (more content not included)... Normal [facility] SEROLOGYOrdered By: Veena Keenan on 09-17-2023 HCG.beta subunit (U) [Moles/Vol] Negative Normal [facility] Man Sero U BetaHcg Qualon 09-17-2023 HCG.beta subunit (U) [Moles/Vol] Negative Normal [facility] Comment on above: Performed By: #### 2 [id number] #### [facility] [address] [place] [address] UA with Cult Rflxon 09-17-19 24 Bilirubin Ql (U) Negative Normal Negative [facility] Comment on above: Performed By: #### 4 [id number] #### [facility] [address] [place] [address] Clarity (U) Clear Normal Clear [facility] Comment on above: Performed By: #### 4 [id number] #### [facility] [address] [place] [address] Color (U) Yellow Normal Yellow [facility] Comment on above: Result Comment: Micr oscopic readings are only performed on those samples that meet specific criteria set forth by [facility]. Performed By: #### 4 [id number] #### [facility] [address] [place] [address] Epithelial cells.squamous Auto (Urine sed) [#/Area] 3-4 Abnormal 0-2 [facility] Comment on above: Performed By: #### 4 [id number] #### [facility] [address] [place] [address] Glucose Ql (U) Negative Normal Negative [facility] Comment on above: Performed By: #### 4 [id number] #### [facility] [address] [place] [address] Hemoglobin Auto test strip (U) [Mass/Vol] Trace Abnormal Negative [facility] Comment on above: Performed By: #### 4 [id number] #### [facility] [address] [place] [address] Ketones Auto test strip Ql (U) Trace Abnormal Negative [facility] Comment on above: Performed By: #### 4 [id number] #### [facility] [address] [place] [address] Leukocyte esterase Auto test strip Ql (U) 25 Obie/uL Normal Negative [facility] Comment on above: Performed By: #### 4 [id number] #### [facility] [address] [place] [address] Mucus Auto Ql (U) Trace Normal Negative [facility] Comment on above: Performed By: #### 4 [id number] #### [facility] [address] [place] [address] Nitrite Auto test strip Ql (U) Negative Normal Negative [facility] Comment on above: Performed By: #### 4 [id number] #### [facility] [address] [place] [address] pH (U) 6.0 [pH] Normal 5.0-9.0 [facility] Comment on above: Performed By: #### 4 [id number] #### [facility] [address] [place] [address] Protein Ql (U) Trace Abnormal Negative [facility] Comment on above: Performed By: #### 4 [id number] #### [facility] [address] [place] [address] RBC Ql (U) 4-20 Abnormal 0-3 [facility] Comment on above: Performed By: #### 4 [id number] #### [facility] [address] [place] [address] Specific gravity (U) [Rel density] 1.035 Normal 1.005-1.030 [facility] Comment on above: Performed By: #### 4 [id number] #### [facility] [address] [place] [address] Urobilinogen (U) [Mass/Vol] 3 mg/dL Abnormal Negative [facility] Comment on above: Performed By: #### 4 [id number] #### [facility] [address] [place] [address] WBC Auto (Urine sed) [#/Area] 6-15 Abnormal 0-5 [facility] Comment on above: Performed By: #### 4 [id number] #### [facility] [address] [place] [address] Type of Urine collection method Clean Catch Normal [facility] Comment on above: Performed By: #### 4 [id number] #### [facility] [address] [place] [address] URINALYSISOrdered By: Tri Keenan on 09-17-2023 Bilirubin [...] that meet specific criteria set forth by [facility]. Epithelial cells.squamous Auto (Urine sed) [#/Area] [...] Clean Catch (09/17/23 4:34 AM) Normal [facility] UA Auto SS Work Phone: Consent for Treatmenton 08-27 Consent for Treatment [id number] .00TIFF Normal [facility] Heart and Vascular Office/Cl inic Noteon 09-15-2023 Heart and Vascular Office/Clinic Note Normal [facility] Comment on above: Result Comment: Elec tronically Signed By: Bon DC, Fatoumata Kelsey\.br\Date and Time Signed: 09/15/23 09:38 EDT Clipboard Summaryon 09-14-19 Clipboard Summary {[id number]-[id number]-[id number] a -[id number] -26-0d}XML Normal [facility] Consent for Treatmenton 08-26 Consent for Treatment [id number] .00TIFF Normal [facility] Discharge Instructionson Discharge Instructions [id number]# 1.00TIFF Normal [facility] ED Clinical Summaryon 2023 ED Clinical Summary Normal [facility] ED Note-Physicianon 09-14-19 ED Note-Physician Normal [facility] Comment on above: Result Comment: Elec tronically Signed By: Sy Pickard PA-C\.br\Date and Time Signed: 09/14/23 12:52 EDT\.br\Electronically Co-Signed By: Darren Lomax DO\.br\Date and Time Co-Signed: 09/14/23 13:34 EDT ED Patient Education Noteon 09-14-2023 ED Patient Education Note Normal [facility] ED Patient Summaryon 024 ED Patient Summary Normal [facility] Automated urine color determ inationOrdered By: PROVIDER TEMP on 09-04-2023 Color (U) Yellow Normal Yellow Comment on above: Order Comment: Name Collection Type:: Clean-Voided Midstream Performed By: #### U A #### [facility] [address] [place] [address] Bilirubin Test strip Ql (U)O rdered By: PROVIDER TEMP on 09-04-2023 Bilirubin Ql (U) Negative Negative [facility] HCG ( test) IA.rapi d Ql (U)Ordered By: PROVIDER TEMP on 09-04-2023 HCG ( test) Ql (U) Negative HCG,Urineon 09-04-2023 Beta HCG ( test) Ql (U) Negative Normal [facility] Comment on above: Result Comment: PERF ORMED BY: [address] [place] [address] PATHOLOGIST DEVELOPER PROGRAMMER ANALYST ALEXANDER SANDERS M.D. Performed By: #### U HCG #### [facility] [address] [place] [address] [place] Ketones Auto test strip (U) [Mass/Vol]Ordered By: PROVIDER TEMP on 09-04-2023 Ketones (U) [Mass/Vol] Negative Negative [facility] Nitrite Test strip Ql (U)Ord ered By: PROVIDER TEMP on 09-04-2023 Nitrite Ql (U) Negative Negative Protein Auto test strip (U) [Mass/Vol]Ordered By: PROVIDER TEMP on 09-04-2023 Protein (U) [Mass/Vol] Negative Negative [facility] Specific gravity Auto test s trip (U) [Rel density]Ordered By: PROVIDER TEMP on 09-04-2023 Specific gravity (U) [Rel density] 1.007 1.001-1.030 Urinalysison 09-04-2023 Appearance (U) Clear Normal Clear [facility] Comment on above: Order Comment: Name Collection Type:: Clean-Voided Midstream Performed By: #### U A #### [place] [address] [place] Bilirubin,Urine Negative Normal Negative [facility] Comment on above: Order Comment: Name Collection Type:: Clean-Voided Midstream Performed By: #### U A #### [address] Glucose Ql (U) Normal Normal Normal [facility] Comment on above: Order Comment: Name Collection Type:: Clean-Voided Midstream Performed By: #### U A #### [place] [address] [place] Ketones Ql (U) Negative Normal Negative [facility] Comment on above: Order Comment: Name Collection Type:: Clean-Voided Midstream Performed By: #### U A #### [address] Leukocyte esterase Test strip Ql (U) Negative Normal Negative [facility] Comment on above: Order Comment: Name Collection Type:: Clean-Voided Midstream Performed By: #### U A #### [place] [address] [place] Nitrite,Urine Negative Normal Negative [facility] Comment on above: Order Comment: Name Collection Type:: Clean-Voided Midstream Performed By: #### U A #### [place] [address] [place] Occult Blood,Urine Negative Normal Negative [facility] Comment on above: Order Comment: Name Collection Type:: Clean-Voided Midstream Result Comment: PERF ORMED BY: [place] [address] PATHOLOGIST DEVELOPER PROGRAMMER ANALYST ALEXANDER SANDERS M.D. Performed By: #### U A #### [facility] [address] Protein,Urine Negative Normal Negative [facility] Comment on above: Order Comment: Name Collection Type:: Clean-Voided Midstream Performed By: #### U A #### [facility] [address] Specificy [place],Urine 1.007 Normal 1.001-1.030 [facility] Comment on above: Order Comment: Name Collection Type:: Clean-Voided Midstream Performed By: #### U A #### [facility] [address] Urobilinogen,Urine Normal Normal Normal [facility] Comment on above: Order Comment: Name Collection Type:: Clean-Voided Midstream Performed By: #### U A #### [address] Urine clarity by refractomet ry automatedOrdered By: PROVIDER TEMP on 09-04-2023 Clarity Refractometry automated (U) Clear Clear Urine glucose measurement by automated test strip (mass/volume)Ordered By: PROVIDER TEMP on 09-04-2023 Glucose Auto test strip (U) [Mass/Vol] Normal mg/dL Normal Urine hemoglobin detection b y automated test stripOrdered By: PROVIDER TEMP on 09-04-2023 Hemoglobin Auto test strip Ql (U) Negative Negative Urine leukocyte esterase det ection by automated test stripOrdered By: PROVIDER TEMP on 09-04-2023 Leukocyte esterase Auto test strip Ql (U) Negative Negative Urine pH measurement by auto mated test stripOrdered By: PROVIDER TEMP on 09-04-2023 pH (U) 7.5 [pH] Normal 5.0-9.0 Comment on above: Order Comment: Name Collection Type:: Clean-Voided Midstream Performed By: #### U A #### [facility] [address] Urobilinogen Auto test strip (U) [Mass/Vol]Ordered By: PROVIDER TEMP on 09-04-2023 Urobilinogen (U) [Mass/Vol] Normal mg/dL Normal Urinalysis, Routineon 2023 Bilirubin, SemiQt,Ur Negative Normal NEG [facility] Comment on above: Performed By: #### U A #### [facility] [address] [place], [place] [id number] [employer] Functional Analyst: Khanh Beaulieu MD Blood, Urine Negative Normal NEG [facility] Comment on above: Performed By: #### U A #### [facility] [address] [place] [address] [employer] Functional Analyst: Khanh Beaulieu MD Clarity (U) Clear Normal CLEAR [facility] Comment on above: Performed By: #### U A #### [facility] [address] [place] [address] [employer] Functional Analyst: Khanh Beaulieu MD Color (U) Yellow Normal YEL [facility] Comment on above: Performed By: #### U A #### [facility] [address] [place] [address] [employer] Functional Analyst: Khanh Beaulieu MD Comment Normal [facility] Comment on above: Performed By: #### U A #### [facility] [address] [place] [address] [employer] Functional Analyst: Khanh Beaulieu MD Glucose Ql (U) Negative Normal NEG [facility] Comment on above: Performed By: #### U A #### [facility] [address] [place] [address] [employer] Functional Analyst: Khanh Beaulieu MD Ketones Ql (U) Negative Normal NEG [facility] Comment on above: Performed By: #### U A #### [facility] [address] [place] [address] [employer] Functional Analyst: Khanh Beaulieu MD Leukocyte esterase Test strip Ql (U) Negative Normal NEG [facility] Comment on above: Performed By: #### U A #### [facility] [address] [place] [address] [employer] Functional Analyst: Khanh Beaulieu MD Nitrite,Ur Negative Normal NEG [facility] Comment on above: Performed By: #### U A #### [facility] [address] [place] [address] [employer] Functional Analyst: Khanh Beaulieu MD PH,Ur 7.0 Normal 5.0-8.0 [facility] Comment on above: Performed By: #### U A #### [facility] [address] [place] [address] [employer] Functional Analyst: Khanh Beaulieu MD Protein Ql (U) Negative Normal NEG [facility] Comment on above: Performed By: #### U A #### [facility] [address] [place] [address] [employer] Functional Analyst: Khanh Beaulieu MD Spec. [place],Ur 1.010 Normal 1.005-1.030 [facility] Comment on above: Performed By: #### U A #### [facility] [address] [place] [address] [employer] Functional Analyst: Khanh Beaulieu MD Urobilinogen,Ur Normal Normal 0.0-1.0 [facility] Comment on above: Performed By: #### U A #### [facility] [address] [place] [address] [employer] Functional Analyst: Khanh Beaulieu MD Referrals Officeon 4 Referrals Office [id number] 1.00TIFF Normal [facility] Consent for Treatmenton 07-28 Consent for Treatment [id number] .00TIFF Normal [facility] Discharge Instructionson Discharge Instructions [id number] 1.00TIFF Normal [facility] ED Clinical Summaryon 2023 ED Clinical Summary Normal [facility] ED Note-Physicianon 08-23-19 ED Note-Physician Normal [facility] Comment on above: Result Comment: Elec tronically Signed By: Savanna Rivero PA-C\.br\Date and Time Signed: 08/23/23 13:04 EDT\.br\Electronically Co-Signed By: Savanna Rivero PA-C\.br\Date and Time Co-Signed: 08/23/23 13:24 EDT\.br\Electronically Co-Signed By: Darren Lomax DO\.br\Date and Time Co-Signed: 08/23/23 14:48 EDT ED Patient Education Noteon 08-23-2023 ED Patient Education Note Normal [facility] ED Patient Summaryon 024 ED Patient Summary Normal [facility] U BetaHcg Qualon 08-23-2023 HCG.beta subunit (U) [Moles/Vol] Negative Normal [facility] Comment on above: Performed By: #### 2 [id number], [id number] ####[facility] [address] [place] [address] UA with Cult Rflxon 08-23-19 Bilirubin Ql (U) Negative Normal Negative [facility] Comment on above: Performed By: #### 2 [id number], [id number] ####[facility] [address] [place] [address] Clarity (U) Clear Normal Clear [facility] Comment on above: Performed By: #### 2 [id number], [id number] ####[facility] [address] [place] [address] Color (U) Light-Yellow Normal Yellow [facility] Comment on above: Result Comment: Micr oscopic readings are only performed on those samples that meet specific criteria set forth by [facility]. Performed By: #### 2 [id number], [id number] ####[facility] [address] [place] [place] [address] Glucose Ql (U) Negative Normal Negative [facility] Comment on above: Performed By: #### 2 [id number], [id number] ####[facility] [address] [address] Hemoglobin Auto test strip (U) [Mass/Vol] Negative Normal Negative [facility] Comment on above: Performed By: #### 2 [id number], [id number] ####[facility] [address] [place] [address] Ketones Auto test strip Ql (U) Negative Normal Negative [facility] Comment on above: Performed By: #### 2 [id number], [id number] ####[facility] [address] [place] [address] Leukocyte esterase Auto test strip Ql (U) Negative Normal Negative [facility] Comment on above: Performed By: #### 2 [id number], [id number] ####[facility] [address] [place] [address] Nitrite Auto test strip Ql (U) Negative Normal Negative [facility] Comment on above: Performed By: #### 2 [id number], [id number] ####[facility] [address] [place] [address] pH (U) 7.0 [pH] Invalid Interpretation Code 5.0-9.0 [facility] Comment on above: Performed By: #### 2 [id number], [id number] ####[facility] [address] [place] [address] Protein Ql (U) Negative Normal Negative [facility] Comment on above: Performed By: #### 2 [id number], [id number] ####[facility] [address] [place] [place] [address] Specific gravity (U) [Rel density] 1.017 Invalid Interpretation Code 1.005-1.030 [facility] Comment on above: Performed By: #### 2 [id number], [id number] ####[facility] [address] [place] [address] Urobilinogen (U) [Mass/Vol] Negative Normal Negative [facility] Comment on above: Performed By: #### 2 [id number], [id number] ####[facility] [address] [place] [address] Type of Urine collection method Clean Catch Normal [facility] Comment on above: Performed By: #### 2 [id number], [id number] ####[facility] [address] [place] [address] XR Abdomen 1 Viewon 08-23-19 24 XR Abdomen 1 View Normal [facility] Alanine aminotransferase [En zymatic activity/volume] in Serum or PlasmaOrdered By: Janeth Johnson on 08-20-2023 ALT [Catalytic activity/Vol] 14 U/L Normal 7-52 Comment on above: Performed By: #### C MP, LIPASE, CBC #### [facility] [address] [place] [address] [place] Albumin [Mass/volume] in Ser um or Plasma by Bromocresol green (BCG) dye binding methoOrdered By: Janeth Johnson on 08-20-2023 Albumin BCG dye [Mass/Vol] 4.8 g/dL 3.5-5.7 Alkaline phosphatase [Enzyma tic activity/volume] in Serum or PlasmaOrdered By: Janeth Johnson on 08-20-2023 ALP [Catalytic activity/Vol] 136 U/L High 34-104 Comment on above: Performed By: #### C MP, LIPASE, CBC #### [facility] [address] [place] [id number] [place] Aspartate aminotransferase [ Enzymatic activity/volume] in Serum or PlasmaOrdered By: Janeth Johnson on 08-20-2023 AST [Catalytic activity/Vol] 20 U/L Normal 13-39 Comment on above: Performed By: #### C MP, LIPASE, CBC #### [facility] [address] [place] [address] Automated basophil %Ordered By: Janeth Johnson on 08-20-2023 Basophils/100 WBC (Bld) 0.8 % Normal . [facility] Comment on above: Performed By: #### C MP, LIPASE, CBC #### [address] Automated basophil countOrde red By: Janeth Bettyhanna on 08-20-2023 Basophils (Bld) [#/Vol] 0.1 10*3/uL Normal 0.0-0.2 Comment on above: Result Comment: PERF ORMED BY: [place] [address] PATHOLOGIST DEVELOPER PROGRAMMER ANALYST ALEXANDER SANDERS M.D. Performed By: #### C MP, LIPASE, CBC #### [address] Automated blood monocyte cou ntOrdered By: Janeth Alatorree on 08-20-2023 Monocytes (Bld) [#/Vol] 0.4 10*3/uL Normal 0.0-0.8 Comment on above: Performed By: #### C MP, LIPASE, CBC #### [address] Automated eosinophil %Ordere d By: Janeth Alatorree on 08-20-2023 Eosinophils/100 WBC (Bld) 1.1 % Normal . Comment on above: Performed By: #### C MP, LIPASE, CBC #### [address] Automated eosinophil countOr dered By: Janeth Bettyfllucy on 08-20-2023 Eosinophils (Bld) [#/Vol] 0.1 10*3/uL Normal 0.0-0.45 Comment on above: Performed By: #### C MP, LIPASE, CBC #### [address] Automated monocyte %Ordered By: Janeth Saffle on 08-20-2023 Monocytes/100 WBC (Bld) 5.2 % Normal . [facility] Comment on above: Performed By: #### C MP, LIPASE, CBC #### [address] Automated neutrophil %Ordere d By: Janeth Johnson on 08-20-2023 Neutrophils/100 WBC (Bld) 66.2 % Normal . Comment on above: Performed By: #### C MP, LIPASE, CBC #### [address] Automated urine color determ inationOrdered By: Janeth Johnson on 08-20-2023 Color (U) Yellow Normal Yellow Comment on above: Order Comment: Name Collection Type:: Clean-Voided Midstream Performed By: #### C MP, LIPASE, CBC #### [address] Bilirubin Test strip Ql (U)O rdered By: Janeth Johnson on 08-20-2023 Bilirubin Ql (U) Negative Negative [facility] Bilirubin.total [Mass/volume ] in Serum or PlasmaOrdered By: Janeth Johnson on 08-20-2023 Bilirubin [Mass/Vol] 0.4 mg/dL Normal 0.3-1.0 [facility] Comment on above: Performed By: #### C MP, LIPASE, CBC #### [address] abdomen pelvis w conon CT abdomen pelvis w con [facility] [place] [address] CT Scan Report Signed Patient: Alejandra Real MR#: [id number] [birth year] : 1995 Acct:[id number] Age/Sex: 27 / F ADM Date: 08/20/23 Loc: ER Room: Type: [facility] ER Attending Dr: Copies to: Janeth [...] Yayo Pablo M.D.08/20/2023 2:46 PM Dictation Location: [place] [address] Transcribed By: [facility] 08/20/23 1446 Dictated By: Yayo Pablo II, MD 08/20/23 1440 Signed By: 08/20/23 144 Normal [facility] Calcium [Mass/volume] in Ser um or PlasmaOrdered By: Janeth Johnson on 08-20-2023 Calcium [Mass/Vol] 9.7 mg/dL Normal 8.6-10.3 [facility] Comment on above: Performed By: #### C MP, LIPASE, CBC #### [address] Carbon dioxide, total [Moles /volume] in Serum or PlasmaOrdered By: Janeth Johnson on 08-20-2023 CO2 [Moles/Vol] 30.4 mmol/L Normal 21.0-31.0 [facility] Comment on above: Performed By: #### C MP, LIPASE, CBC #### [address] Chloride [Moles/volume] in S gabbie or PlasmaOrdered By: Janeth Johnson on 08-20-2023 Chloride [Moles/Vol] 104 mmol/L Normal 98-107 [facility] Comment on above: Performed By: #### C MP, LIPASE, CBC #### [address] Complete Blood Count Auto Di ffon 08-20-2023 Mean Corpuscular HGB Conc 34.0 g/dL Normal 32.0-35.0 [facility] Comment on above: Performed By: #### C MP, LIPASE, CBC #### [address] Monocytes/100 WBC (Bld) 15.39 % Normal 0.00-20.00 [facility] Comment on above: Performed By: #### C MP, LIPASE, CBC #### [address] NRBC% 0.2 /100{WBC} Normal 0-0.5 [facility] Comment on above: Performed By: #### C MP, LIPASE, CBC #### [address] Comprehensive Metabolic Pane chtaa 08-20-2023 Albumin [Mass/Vol] 4.8 g/dL Normal 3.5-5.7 [facility] Comment on above: Performed By: #### C MP, LIPASE, CBC #### [address] Creatinine Clr Calc Pharmacy 100.77 Normal [facility] Comment on above: Performed By: #### C MP, LIPASE, CBC #### [address] GFR/1.73 sq M.predicted MDRD (S/P/Bld) [Vol rate/Area] mL/min/{1.73_m2} Normal [facility] Comment on above: Performed By: #### C MP, LIPASE, CBC #### [address] Creatinine [Mass/volume] in Serum or PlasmaOrdered By: Janeth Johnson on 08-20-2023 Creatinine [Mass/Vol] 0.75 mg/dL Normal 0.60-1.20 [facility] Comment on above: Performed By: #### C MP, LIPASE, CBC #### [address] Erythrocyte distribution wid th [Ratio] by Automated countOrdered By: Janeth Johnson on 08-20-2023 Erythrocyte distribution width (RBC) [Ratio] 13.1 % Normal 11.9-15.3 Comment on above: Performed By: #### C MP, LIPASE, CBC #### [address] Erythrocytes [#/volume] in B lood by Automated countOrdered By: Janeth Johnson on 08-20-2023 RBC (Bld) [#/Vol] 4.81 10*6/uL Normal 3.60-5.00 [facility] Comment on above: Performed By: #### C MP, LIPASE, CBC #### [address] Glucose [Mass/volume] in Ser um or PlasmaOrdered By: Janeth Johnson on 08-20-2023 Glucose [Mass/Vol] 104 mg/dL High 70-100 [facility] Comment on above: ADA recommended refe rence rangeRandom Glucose Reference Range is dependent on time and content of last meal. Glucose of more than 200 mg/dL in a nonstressed, ambulatory subject supports the diagnosis of Diabetes Mellitus. Result Comment: [facility] Glucose Reference Range is dependent on time and content of last meal. Glucose of more than 200 mg/dL in a nonstressed, ambulatory subject supports the diagnosis of Diabetes Mellitus. ADA recommended reference range Performed By: #### C MP, LIPASE, CBC #### [address] HCG ( test) IA.rapi d Ql (U)Ordered By: Janeth Johnson on 08-20-2023 HCG ( test) Ql (U) Negative HCG,Urineon 08-20-2023 Beta HCG ( test) Ql (U) Negative Normal [facility] Comment on above: Order Comment: Name Collection Type:: Clean-Voided Midstream Result Comment: PERF ORMED BY: [place] [address] PATHOLOGIST DEVELOPER PROGRAMMER ANALYST ALEXANDER SANDERS M.D. Performed By: #### C MP, LIPASE, CBC #### [address] Hematocrit [Volume Fraction] of Blood by Automated countOrdered By: Janeth Johnson on 08-20-2023 Hematocrit (Bld) [Volume fraction] 42.9 % Normal 34.0-46.4 Comment on above: Performed By: #### C MP, LIPASE, CBC #### [address] Hemoglobin [Mass/volume] in BloodOrdered By: Janeth Johnson on 08-20-2023 Hemoglobin (Bld) [Mass/Vol] 14.6 g/dL Normal 11.8-15.4 Comment on above: Performed By: #### C MP, LIPASE, CBC #### [address] Ketones Auto test strip (U) [Mass/Vol]Ordered By: Janeth Johnson on 08-20-2023 Ketones (U) [Mass/Vol] Negative Negative [facility] Leukocytes [#/volume] correc rosy for nucleated erythrocytes in Blood by Automated counOrdered By: Janeth Johnson on 08-20-2023 WBC corrected for nucl RBC Auto (Bld) [#/Vol] 7.5 10*3/uL 3.8-11.6 Leukocytes [#/volume] in Blo od by Automated countOrdered By: Janeth Johnson on 08-20-2023 WBC (Bld) [#/Vol] 7.5 10*3/uL Normal 3.8-11.6 [facility] Comment on above: Performed By: #### C MP, LIPASE, CBC #### [address] Lipase [Enzymatic activity/v olume] in Serum or PlasmaOrdered By: Janeth Johnson on 08-20-2023 Lipase [Catalytic activity/Vol] 28.0 U/L Normal 11.0-82.0 Comment on above: Result Comment: PERF ORMED BY: [place] [address] PATHOLOGIST DEVELOPER PROGRAMMER ANALYST ALEXANDER SANDERS M.D. Performed By: #### C MP, LIPASE, CBC #### [place] [address] [place] Lymphocytes [#/volume] in Bl ood by Automated countOrdered By: Janeth Johnson on 08-20-2023 Lymphocytes (Bld) [#/Vol] 2.0 10*3/uL Normal 1.00-4.8 Comment on above: Performed By: #### C MP, LIPASE, CBC #### [place] [address] [place] Lymphocytes/100 leukocytes i n Blood by Automated countOrdered By: Janeth Johnson on 08-20-2023 Lymphocytes/100 WBC (Bld) 26.7 % Normal . Comment on above: Performed By: #### C MP, LIPASE, CBC #### [place] [address] [place] MCH [Entitic mass] by Automa rosy countOrdered By: Janeth Johnson on 08-20-2023 MCH (RBC) [Entitic mass] 30.4 pg Normal 24.7-34.3 Comment on above: Performed By: #### C MP, LIPASE, CBC #### [facility] [address] [place] [address] MCHC Auto (RBC) [Mass/Vol]Or dered By: Janeth Johnson on 08-20-2023 MCHC (RBC) [Mass/Vol] 34.0 g/dL 32.0-35.0 [facility] MCV [Entitic volume] by Auto mated countOrdered By: Janeth Johnson on 08-20-2023 MCV (RBC) [Entitic vol] 89.2 fL Normal 80-100 [facility] Comment on above: Performed By: #### C MP, LIPASE, CBC #### [facility] [address] [place] [address] Monocyte distribution width [Entitic volume] in Blood by AutomatedOrdered By: Janeth Johnson on 08-20-2023 Monocyte distribution width Auto (Bld) [Entitic vol] 15.39 % 0.00-20.00 Neutrophils [#/volume] in Bl ood by Automated countOrdered By: Janeth Johnson on 08-20-2023 Neutrophils (Bld) [#/Vol] 5.0 10*3/uL Normal 1.8-7.7 Comment on above: Performed By: #### C MP, LIPASE, CBC #### [facility] [address] [place] [address] Nitrite Test strip Ql (U)Ord ered By: Janeth Johnson on 08-20-2023 Nitrite Ql (U) Negative Negative No Panel InformationOrdered By: Janeth Johnson on 08-20-2023 Estimated GFR (CKD-EPI) > 60.0 mL/Min Pharmacy Creatinine Clearance (Chem 100.77 Nucleated erythrocytes [Pres ence] in Blood by Automated countOrdered By: Janeth Johnson on 08-20-2023 Nucleated RBC Auto Ql (Bld) 0.2 /100{WBC} 0-0.5 Platelet mean volume [Entiti c volume] in Blood by Automated countOrdered By: Janeth Johnson on 08-20-2023 Platelet mean volume (Bld) [Entitic vol] 7.5 fL Normal 6.3-10.7 Comment on above: Performed By: #### C MP, LIPASE, CBC #### [address] Platelets [#/volume] in Bloo d by Automated countOrdered By: Janeth Johnson on 08-20-2023 Platelets (Bld) [#/Vol] 447 10*3/uL Normal 150-450 Comment on above: Performed By: #### C MP, LIPASE, CBC #### [address] Potassium [Moles/volume] in Serum or PlasmaOrdered By: Janeth Johnson on 08-20-2023 Potassium [Moles/Vol] 3.7 mmol/L Normal 3.5-5.1 [facility] Comment on above: Performed By: #### C MP, LIPASE, CBC #### [address] Protein Auto test strip (U) [Mass/Vol]Ordered By: Janeth Johnson on 08-20-2023 Protein (U) [Mass/Vol] Negative Negative [facility] Protein [Mass/volume] in Ser um or PlasmaOrdered By: Janeth Johnson on 08-20-2023 Protein [Mass/Vol] 7.8 g/dL Normal 6.4-8.9 [facility] Comment on above: Performed By: #### C MP, LIPASE, CBC #### [address] Serum globulin measurement b y calculation (mass/volume)Ordered By: Janeth Johnson on 08-20-2023 Globulin (S) [Mass/Vol] 3.0 g/dL Normal [facility] Comment on above: Performed By: #### C MP, LIPASE, CBC #### [address] Serum or plasma albumin/glob ulin mass ratioOrdered By: Janeth Johnson on 08-20-2023 Albumin/Globulin [Mass ratio] 1.6 {ratio} Normal Comment on above: Performed By: #### C MP, LIPASE, CBC #### [address] Serum or plasma anion gap de terminationOrdered By: Janeth Johnson on 08-20-2023 Anion gap [Moles/Vol] 9.3 mmol/L Normal 6.0-15.0 [facility] Comment on above: Performed By: #### C MP, LIPASE, CBC #### [address] Sodium [Moles/volume] in Ser um or PlasmaOrdered By: Janeth Bettyhanna on 08-20-2023 Sodium [Moles/Vol] 140 mmol/L Normal 136-145 [facility] Comment on above: Performed By: #### C MP, LIPASE, CBC #### [address] Specific gravity Auto test s trip (U) [Rel density]Ordered By: Janeth Johnson on 08-20-2023 Specific gravity (U) [Rel density] 1.011 1.001-1.030 Urea nitrogen [Mass/volume] in Serum or PlasmaOrdered By: Janeth Bettyhanna on 08-20-2023 Urea nitrogen [Mass/Vol] 6 mg/dL Low 7-25 Comment on above: Performed By: #### C MP, LIPASE, CBC #### [address] Urinalysison 08-20-2023 Appearance (U) Clear Normal Clear [facility] [facility] Comment on above: Order Comment: Name Collection Type:: Clean-Voided Midstream Performed By: #### C MP, LIPASE, CBC #### [address] Bilirubin,Urine Negative Normal Negative [facility] Comment on above: Order Comment: Name Collection Type:: Clean-Voided Midstream Performed By: #### C MP, LIPASE, CBC #### [address] Glucose Ql (U) Normal Normal Normal [facility] Comment on above: Order Comment: Name Collection Type:: Clean-Voided Midstream Performed By: #### C MP, LIPASE, CBC #### [address] Ketones Ql (U) Negative Normal Negative [facility] Comment on above: Order Comment: Name Collection Type:: Clean-Voided Midstream Performed By: #### C MP, LIPASE, CBC #### [address] Leukocyte esterase Test strip Ql (U) Negative Normal Negative [facility] Comment on above: Order Comment: Name Collection Type:: Clean-Voided Midstream Performed By: #### C MP, LIPASE, CBC #### [address] Nitrite,Urine Negative Normal Negative [facility] Comment on above: Order Comment: Name Collection Type:: Clean-Voided Midstream Performed By: #### C MP, LIPASE, CBC #### [address] Occult Blood,Urine Negative Normal Negative [facility] Comment on above: Order Comment: Name Collection Type:: Clean-Voided Midstream Performed By: #### C MP, LIPASE, CBC #### [address] Protein,Urine Negative Normal Negative [facility] Comment on above: Order Comment: Name Collection Type:: Clean-Voided Midstream Performed By: #### C MP, LIPASE, CBC #### [place] [address] [place] Specificy [place],Urine 1.011 Normal 1.001-1.030 [facility] Comment on above: Order Comment: Name Collection Type:: Clean-Voided Midstream Performed By: #### C MP, LIPASE, CBC #### [address] Urobilinogen,Urine Normal Normal Normal [facility] Comment on above: Order Comment: Name Collection Type:: Clean-Voided Midstream Performed By: #### C MP, LIPASE, CBC #### [facility] [address] [id number] [place] Urine clarity by refractomet ry automatedOrdered By: Janeth Johnson on 08-20-2023 Clarity Refractometry automated (U) Clear Clear Urine glucose measurement by automated test strip (mass/volume)Ordered By: Janeth Johnson on 08-20-2023 Glucose Auto test strip (U) [Mass/Vol] Normal mg/dL Normal Urine hemoglobin detection b y automated test stripOrdered By: Janeth Johnson on 08-20-2023 Hemoglobin Auto test strip Ql (U) Negative Negative Urine leukocyte esterase det ection by automated test stripOrdered By: Janeth Johnson on 08-20-2023 Leukocyte esterase Auto test strip Ql (U) Negative Negative Urine pH measurement by auto mated test stripOrdered By: Janeth Johnson on 08-20-2023 pH (U) 7.5 [pH] Normal 5.0-9.0 Comment on above: Order Comment: Name Collection Type:: Clean-Voided Midstream Performed By: #### C MP, LIPASE, CBC #### [facility] [address] [place], [place] [id number] [facility] Urobilinogen Auto test strip (U) [Mass/Vol]Ordered By: Janeth Johnson on 08-20-2023 Urobilinogen (U) [Mass/Vol] Normal mg/dL Normal Consent for Treatmenton 07-28 Consent for Treatment [id number]#1 .00TIFF Normal [facility] Discharge Instructionson Discharge Instructions [id number]# 1.00TIFF Normal [facility] ED Clinical Summaryon 2023 ED Clinical Summary Normal [facility] ED Note-Physicianon 08-18-19 ED Note-Physician Normal [facility] Comment on above: Result Comment: Elec tronically Signed By: Justo Arias DO\.tesha\Date and Time Signed: 08/18/23 11:41 EDT ED Patient Education Noteon 08-18-2023 ED Patient Education Note Normal [facility] ED Patient Summaryon 024 ED Patient Summary Normal [facility] SEROLOGYOrdered By: Kyle Mcgill on 08-18-2023 HCG.beta subunit (U) [Moles/Vol] Negative Normal [facility] Man Sero U BetaHcg Qualon 08-18-2023 HCG.beta subunit (U) [Moles/Vol] Negative Normal [facility] Comment on above: Performed By: #### 2 [id number], [id number] ####[facility] [address] [place] [address] UA with Cult Rflxon 08-18-19 Bilirubin Ql (U) Negative Normal Negative [facility] Comment on above: Performed By: #### 2 9787737, [id number] ####[facility] [address] [place] [address] Clarity (U) Clear Normal Clear [facility] Comment on above: Performed By: #### 2 5949576, [id number] ####[facility] [address] [place] [address] Color (U) Colorless Abnormal Yellow [facility] Comment on above: Result Comment: Micr oscopic readings are only performed on those samples that meet specific criteria set forth by [facility]. Performed By: #### 2 5922870, [id number] ####[facility] [address] [place] [address] Glucose Ql (U) Negative Normal Negative [facility] Comment on above: Performed By: #### 2 8008221, [id number] ####[facility] [address] [place] [address] Hemoglobin Auto test strip (U) [Mass/Vol] Negative Normal Negative [facility] Comment on above: Performed By: #### 2 6648494, [id number] ####[facility] [address] [place] [address] Ketones Auto test strip Ql (U) Negative Normal Negative [facility] Comment on above: Performed By: #### 2 7599839, [id number] ####[facility] [address] [place] [address] Leukocyte esterase Auto test strip Ql (U) Negative Normal Negative [facility] Comment on above: Performed By: #### 2 5722131, [id number] ####[facility] [address] [place] [address] Nitrite Auto test strip Ql (U) Negative Normal Negative [facility] Comment on above: Performed By: #### 2 0630741, [id number] ####[address] [address] pH (U) 6.5 [pH] Invalid Interpretation Code 5.0-9.0 [facility] Comment on above: Performed By: #### 2 9836443, [id number] ####[address] [address] Protein Ql (U) Negative Normal Negative [facility] Comment on above: Performed By: #### 2 4387254, [id number] ####[address] [address] Specific gravity (U) [Rel density] 1.010 Invalid Interpretation Code 1.005-1.030 [facility] Comment on above: Performed By: #### 2 4938006, [id number] ####[facility] [address] [place] [address] Urobilinogen (U) [Mass/Vol] Negative Normal Negative [facility] Comment on above: Performed By: #### 2 2389436, [id number] ####[address] [address] Type of Urine collection method Clean Catch Normal [facility] Comment on above: Performed By: #### 2 9154610, [id number] ####[facility] [address] [place] [address] URINALYSISOrdered By: SYSTEM SYSTEM on 08-18-2023 Bilirubin [...] that meet specific criteria set forth by [facility]. Glucose Ql (U) Negative Normal Negativemg/d [...] Desc Clean Catch (08/18/23 11:04 AM) Normal [facility] UA Auto SS Work Phone: BMPon 08-14-2023 Anion gap [Moles/Vol] 13 mmol/L Normal 6-[address] [facility] Comment on above: Performed By: #### 2 286123, 5314978, 42267072 ####[facility] [address] [place] [address] Calcium [Mass/Vol] 9.6 mg/dL Normal 8.9-11.1 [facility] Comment on above: Performed By: #### 2 282512, 9539721, 67234998 ####[facility] [address] [place] [address] Chloride [Moles/Vol] 107 mmol/L Normal 101-111 [facility] Comment on above: Performed By: #### 2 790341, 8232043, 81601581 ####[facility] [address] [place] [address] CO2 [Moles/Vol] 24 mmol/L Normal 21-31 [facility] Comment on above: Performed By: #### 2 081908, 9532846, 18502166 ####[facility] [address] [place] [address] Creatinine [Mass/Vol] 0.7 mg/dL Normal 0.5-1.[address] [facility] Comment on above: Performed By: #### 2 962309, 0440987, 28544043 ####[facility] [address] [place] [address] Glucose [Mass/Vol] 99 mg/dL Normal 55-199 [facility] Comment on above: Performed By: #### 2 941268, 6672601, 23926040 ####[facility] [address] [place] [address] Potassium [Moles/Vol] 3.2 mmol/L Low 3.5-5.[address] [facility] Comment on above: Performed By: #### 2 430957, 1152774, 68734412 ####[facility] [address] [place] [address] Sodium [Moles/Vol] 141 mmol/L Normal 135-145 [facility] Comment on above: Performed By: #### 2 326594, 9905693, 48697607 ####[facility] [address] [place] [address] Urea nitrogen [Mass/Vol] 5 mg/dL Normal 5-21 [facility] Comment on above: Performed By: #### 2 133321, 0208763, 84714381 ####[facility] [address] [place] [address] Urea nitrogen/Creatinine [Mass ratio] 7 No Units Low 10-20 [facility] Comment on above: Performed By: #### 2 410447, 3386050, 19283867 ####[address] [address] CBC w/ Auto Diffon 4 Basophils/100 WBC (Bld) 0.4 % Normal 0.0-2.0 [facility] Comment on above: Performed By: #### 2 475138, 6485633, 54691529 ####[address] [address] Basophils/Leukocytes Auto (Bld) [Pure # fraction] 0.0 E9/L Normal 0.0-0.2 [facility] Comment on above: Performed By: #### 2 676921, 9752402, 62160898 ####[address] [address] Eosinophils (Bld) [#/Vol] 0.0 E9/L Normal 0.0-0.5 [facility] Comment on above: Performed By: #### 2 973418, 8508175, 16744981 ####[address] [address] Eosinophils/100 WBC (Bld) 0.3 % Normal 0.0-8.0 [facility] Comment on above: Performed By: #### 2 755436, 3904188, 46451279 ####[address] [address] Erythrocyte distribution width (RBC) [Ratio] 13.3 % Normal 10.9-14.2 [facility] Comment on above: Performed By: #### 2 867885, 4381597, 17506552 ####[address] [address] Hematocrit (Bld) [Volume fraction] 40.7 % Normal 34.0-46.0 [facility] Comment on above: Performed By: #### 2 315600, 1353152, 50403795 ####[address] [address] Hemoglobin (Bld) [Mass/Vol] 13.6 g/dL Normal 12.0-16.0 [facility] Comment on above: Performed By: #### 2 854273, 1472413, 36947643 ####[address] [address] Lymphocytes (Bld) [#/Vol] 2.2 E9/L Normal 1.0-4.0 [facility] Comment on above: Performed By: #### 2 817085, 1702000, 87043354 ####[address] [address] Lymphocytes/100 WBC (Bld) 21.0 % Normal 14.0-50.0 [facility] Comment on above: Performed By: #### 2 957625, 3698065, 73773376 ####[address] [address] MCH (RBC) [Entitic mass] 29.9 pg Normal 27.0-34.0 [facility] Comment on above: Performed By: #### 2 424859, 2588996, 31044586 ####[address] [address] MCHC (RBC) [Mass/Vol] 33.5 g/dL Normal 31.4-36.[address] [facility] Comment on above: Performed By: #### 2 539453, 5034190, 45085351 ####[address] [address] MCV (RBC) [Entitic vol] 89.2 fL Normal 80.0-100.0 [facility] Comment on above: Performed By: #### 2 702768, 4353264, 26377091 ####[facility] [address] [place] [address] Monocytes (Bld) [#/Vol] 0.5 E9/L Normal 0.2-1.0 [facility] Comment on above: Performed By: #### 2 933121, 8398451, 13185573 ####[address] [address] Neutrophils (Bld) [#/Vol] 7.6 E9/L High 2.0-7.5 [facility] Comment on above: Performed By: #### 2 900510, 8534126, 11770775 ####[address] [address] Neutrophils/100 WBC (Bld) 73.5 % Normal 36.0-75.0 [facility] Comment on above: Performed By: #### 2 839251, 5369125, 14130089 ####[address] [address] Platelet mean volume (Bld) [Entitic vol] 7.2 fL Normal 6.4-10.8 [facility] Comment on above: Performed By: #### 2 889053, 1867785, 16508409 ####[address] [address] Platelets (Bld) [#/Vol] 421.0 E9/L Normal 150.0-500.0 [facility] Comment on above: Performed By: #### 2 721673, 8095429, 42828930 ####[address] [address] RBC (Bld) [#/Vol] 4.6 E12/L Normal 4.3-5.9 [facility] Comment on above: Performed By: #### 2 075679, 0413647, 82504413 ####[address] [address] WBC corrected for nucl RBC Auto (Bld) [#/Vol] 10.4 E9/L Normal 4.0-11.0 [facility] Comment on above: Performed By: #### 2 139992, 9906357, 83182088 ####[facility] [address] [place] [address] CHEMISTRYOrdered By: Azam parmar on 08-14-2023 Anion gap [Moles/Vol] 13 mmol/L Normal 6 - 16 mEq/L [facility] Chem S Calcium [Mass/Vol] 9.6 mg/dL Normal 8.9 - 11. 1 mg/dL [facility] Chem S Chloride [Moles/Vol] 107 mmol/L Normal 101 - 1 11 mmol/L [facility] Chem S CO2 [Moles/Vol] 24 mmol/L Normal 21 - 31 mmol/L [facility] Chem S Creatinine [Mass/Vol] 0.7 mg/dL Normal 0.5 - 1.3 mg/dL [facility] Chem S eGFR Unable to Calculate (08/14/23 3:16 PM) Normal >=59 [facility] Chem S Glucose [Mass/Vol] 99 mg/dL Normal 55 - 199 mg/dL [facility] Chem S Potassium [Moles/Vol] 3.2 mmol/L Low 3.5 - 5.3 mmol/L [facility] Chem S Sodium [Moles/Vol] 141 mmol/L Normal 135 - 145 mmol/L [facility] Chem S Urea nitrogen [Mass/Vol] 5 mg/dL Normal 5 - 21 mg/dL [facility] Chem S Urea nitrogen/Creatinine [Mass ratio] 7 mg/mg Low 10 - 20 [facility] Chem S Consent for Treatmenton 07-27 Consent for Treatment [id number]#1 .00TIFF Normal [facility] Discharge Instructionson Discharge Instructions [id number]#1. 00TIFF Normal [facility] ED Clinical Summaryon 2023 ED Clinical Summary Normal [facility] ED Note-Physicianon 08-14-19 ED Note-Physician Normal [facility] Comment on above: Result Comment: Elec tronically Signed By: Arpita Layton, Mary Jane H\.br\Date and Time Signed: 08/14/23 17:09 EDT ED Patient Education Noteon 08-14-2023 ED Patient Education Note Normal [facility] ED Patient Summaryon 024 ED Patient Summary Normal [facility] HEMATOLOGYOrdered By: SYSTEM SYSTEM on 08-14-2023 Basophils/100 [...] HCG.beta subunit (U) [Moles/Vol] Negative Normal [facility] Man Sero U BetaHcg Qualon 08-14-2023 HCG.beta subunit (U) [Moles/Vol] Negative Normal [facility] Comment on above: Performed By: #### 2 7624008, [id number] ####[facility] [address] [place] [address] UA with Cult Rflxon 08-14-19 24 Bilirubin Ql (U) Negative Normal Negative [facility] Comment on above: Performed By: #### 2 3236757, 8810792576 ####[facility] [address] [place] [address] Clarity (U) Clear Normal Clear [facility] Comment on above: Performed By: #### 2 4109798, [id number] ####[facility] [address] [place] [address] Color (U) Light-Yellow Normal Yellow [facility] Comment on above: Result Comment: Micr oscopic readings are only performed on those samples that meet specific criteria set forth by [facility]. Performed By: #### 2 3862950, [id number] ####[facility] [address] [place] [address] Glucose Ql (U) Negative Normal Negative [facility] Comment on above: Performed By: #### 2 1930646, 1693692817 ####[facility] [address] [place] [address] Hemoglobin Auto test strip (U) [Mass/Vol] Trace Abnormal Negative [facility] Comment on above: Performed By: #### 2 7855255, [id number] ####[facility] [address] [place] [address] Ketones Auto test strip Ql (U) Negative Normal Negative [facility] Comment on above: Performed By: #### 2 0960058, [id number] ####[facility] [address] [place] [address] Leukocyte esterase Auto test strip Ql (U) Negative Normal Negative [facility] Comment on above: Performed By: #### 2 0809819, 6022262515 ####[facility] [address] [place] [address] Nitrite Auto test strip Ql (U) Negative Normal Negative [facility] Comment on above: Performed By: #### 2 7977204, 6840549421 ####[facility] [address] [place] [address] pH (U) 5.5 [pH] Invalid Interpretation Code 5.0-9.0 [facility] Comment on above: Performed By: #### 2 8868094, [id number] ####[facility] [address] [place] [address] Protein Ql (U) Negative Normal Negative [facility] Comment on above: Performed By: #### 2 6421726, 0142726179 ####[facility] [address] [place] [address] Specific gravity (U) [Rel density] 1.015 Invalid Interpretation Code 1.005-1.030 [facility] Comment on above: Performed By: #### 2 5943891, [id number] ####[facility] [address] [place] [address] Urobilinogen (U) [Mass/Vol] Negative Normal Negative [facility] Comment on above: Performed By: #### 2 9408522, 0123192680 ####[facility] [address] [place] [address] Type of Urine collection method Clean Catch Normal [facility] Comment on above: Performed By: #### 2 8271825, [id number] ####[facility] [address] [place] [address] URINALYSISOrdered By: SYSTEM SYSTEM on 08-14-2023 Bilirubin Ql (U) Negative Normal Negativemg/ d L [facility] UA Auto SS Clarity (U) Clear (08/14/23 3:11 PM) Normal Clear [facility] UA Auto SS Color (U) Light-Yellow 1 (08/14/23 3:11 PM) Normal Yellow [facility] UA Auto SS Comment on above: Interpretive Data: M icroscopic readings are only performed on those samples that meet specific criteria set forth by [facility]. Glucose Ql (U) Negative Normal Negativemg/d [...] Clean Catch (08/14/23 3:11 PM) Normal [facility] UA Auto SS eGFRon 08-14-2023 eGFR Unable to Calculate Normal >=59 [facility]avo [facility] Comment on above: Order Comment: Order added by Discern Expert. Performed By: #### 2 110543, 5745230, 47352211 ####[facility] [address] [place] [address] Consent for Treatmenton 07-27 Consent for Treatment [id number]#1 .00TIFF Normal [facility] Discharge Instructionson Discharge Instructions [id number]# 1.00TIFF Normal [facility] ED Clinical Summaryon 2023 ED Clinical Summary Normal [facility] ED Note-Physicianon 08-10-19 ED Note-Physician Normal [facility] Comment on above: Result Comment: Elec tronically Signed By: Sy Pickard PA-C\.br\Date and Time Signed: 08/10/23 13:28 EDT\.br\Electronically Co-Signed By: Mary Jane Palm M.D.\.br\Date and Time Co-Signed: 08/10/23 14:13 EDT ED Patient Education Noteon 08-10-2023 ED Patient Education Note Normal [facility] ED Patient Summaryon 024 ED Patient Summary Normal [facility] Physician Orderon 08-05-2023 Physician Order [id number]#1 .00TIFF Normal [facility] US PELVIC COMPLETE W/ TVon 0 08-05-2023 [...] Summaryon 0 07-30-2023 Ambulatory Visit Summary Normal [facility] Consenton 07-30-2023 Consent [id number]#1 .00TIFF Normal [facility] Family Medicine Office/Clini c Noteon 07-30-2023 Family Medicine Office/Clinic Note Normal [facility] Comment on above: Result Comment: Elec tronically Signed By: SANIA LUKE, LANETTE\.br\Date and Time Signed: 07/30/23 14:40 EDT Patient Educationon 07-30-19 24 Patient Education Normal [facility] B hCG Qualon 07-26-2023 Beta HCG ( test) Ql Negative [facility] Comment on above: Performed By: #### 1 0113050, 8266710, 2894026, 69558818 ####[facility] [address] [place] [address] BMPon 07-26-2023 Creatinine [Mass/Vol] 0.8 mg/dL Normal 0.5-1.[address] [facility] Comment on above: Performed By: #### 1 9706082, 7097504, 1183244, 51305806 ####[facility] [address] [place] [address] Urea nitrogen/Creatinine [Mass ratio] 11 No Units Normal 10-20 [facility] Comment on above: Performed By: #### 1 0783239, 3153867, 3592650, 19033888 ####[facility] [address] [place] [address] Anion gap [Moles/Vol] 11 mmol/L Normal 6-[address] [facility] Comment on above: Performed By: #### 1 7619119, 3139322, 5016593, 98520934 ####[facility] [address] [place] [address] Calcium [Mass/Vol] 9.7 mg/dL Normal 8.9-11.1 [facility] Comment on above: Performed By: #### 1 8653364, 1841778, 9019351, 63919237 ####[facility] [address] [place] [address] Chloride [Moles/Vol] 104 mmol/L Normal 101-111 [facility] Comment on above: Performed By: #### 1 7314150, 0811881, 4597179, 77028484 ####[facility] [address] [place] [address] CO2 [Moles/Vol] 26 mmol/L Normal 21-31 [facility] Comment on above: Performed By: #### 1 3762825, 2265021, 1249082, 44040314 ####[facility] [address] [place] [address] Glucose [Mass/Vol] 87 mg/dL Normal 55-199 [facility] Comment on above: Performed By: #### 1 4237188, 1744553, 3465523, 92669275 ####[facility] [address] [place] [address] Potassium [Moles/Vol] 3.4 mmol/L Low 3.5-5.[address] [facility] Comment on above: Performed By: #### 1 5861098, 8003584, 5914175, 07851068 ####[facility] [address] [place] [address] Sodium [Moles/Vol] 138 mmol/L Normal 135-145 [facility] Comment on above: Performed By: #### 1 7795483, 3419709, 6348154, 04778707 ####[facility] [address] [place] [address] Urea nitrogen [Mass/Vol] 9 mg/dL Normal 5-21 [facility] Comment on above: Performed By: #### 1 6566830, 5129461, 6536021, 02317565 ####[address] [place] [address] CBC w/ Auto Diffon 4 Basophils/100 WBC (Bld) 1.9 % Normal 0.0-2.0 [facility] Comment on above: Performed By: #### 1 7232923, 9969936, 7565525, 20483567 ####[address] [address] Basophils/Leukocytes Auto (Bld) [Pure # fraction] 0.2 E9/L Normal 0.0-0.2 [facility] Comment on above: Performed By: #### 1 1883344, 3359613, 5804701, 78137413 ####[address] [address] Eosinophils (Bld) [#/Vol] 0.3 E9/L Normal 0.0-0.5 [facility] Comment on above: Performed By: #### 1 7546079, 1025413, 0972907, 65974144 ####[address] [address] Eosinophils/100 WBC (Bld) 2.5 % Normal 0.0-8.0 [facility] Comment on above: Performed By: #### 1 2441492, 4060927, 8426242, 85905525 ####[address] [address] Erythrocyte distribution width (RBC) [Ratio] 12.9 % Normal 10.9-14.2 [facility] Comment on above: Performed By: #### 1 6281357, 2227129, 2116137, 67115866 ####[address] [address] Hematocrit (Bld) [Volume fraction] 43.8 % Normal 34.0-46.0 [facility] Comment on above: Performed By: #### 1 4716673, 3957908, 1817016, 74188910 ####[address] [address] Hemoglobin (Bld) [Mass/Vol] 14.8 g/dL Normal 12.0-16.0 [facility] Comment on above: Performed By: #### 1 5810696, 7533165, 7603306, 65332495 ####[facility] [address] [place] [address] Lymphocytes (Bld) [#/Vol] 3.4 E9/L Normal 1.0-4.0 [facility] Comment on above: Performed By: #### 1 8879257, 6220503, 9144352, 79700653 ####[address] [address] Lymphocytes/100 WBC (Bld) 31.0 % Normal 14.0-50.0 [facility] Comment on above: Performed By: #### 1 7445797, 4042158, 2535253, 88815703 ####[address] [address] MCH (RBC) [Entitic mass] 30.1 pg Normal 27.0-34.0 [facility] Comment on above: Performed By: #### 1 5551017, 4915271, 7295954, 92168463 ####[address] [address] MCHC (RBC) [Mass/Vol] 33.8 g/dL Normal 31.4-36.0 [facility] Comment on above: Performed By: #### 1 7754792, 8141856, 6324407, 69772231 ####[address] [address] MCV (RBC) [Entitic vol] 89.1 fL Normal 80.0-100.0 [facility] Comment on above: Performed By: #### 1 0027679, 3805326, 2905475, 24588587 ####[address] [address] Monocytes (Bld) [#/Vol] 0.5 E9/L Normal 0.2-1.0 [facility] Comment on above: Performed By: #### 1 0592497, 4863415, 0620259, 40028068 ####[address] [address] Neutrophils (Bld) [#/Vol] 6.5 E9/L Normal 2.0-7.5 [facility] Comment on above: Performed By: #### 1 7890080, 9860443, 3089071, 26808220 ####[address] [address] Neutrophils/100 WBC (Bld) 60.4 % Normal 36.0-75.0 [facility] Comment on above: Performed By: #### 1 2205576, 0749636, 8109092, 73752788 ####[address] [address] Platelet mean volume (Bld) [Entitic vol] 8.3 fL Normal 6.4-10.8 [facility] Comment on above: Performed By: #### 1 2073063, 3406622, 6043690, 47262317 ####[address] [address] Platelets (Bld) [#/Vol] 463.0 E9/L Normal 150.0-500.0 [facility] Comment on above: Performed By: #### 1 9562042, 8016443, 7739067, 98705834 ####[address] [address] RBC (Bld) [#/Vol] 4.9 E12/L Normal 4.3-5.9 [facility] Comment on above: Performed By: #### 1 2354702, 1840509, 0392440, 26147685 ####[address] [address] WBC corrected for nucl RBC Auto (Bld) [#/Vol] 10.8 E9/L Normal 4.0-11.0 [facility] Comment on above: Performed By: #### 1 5520153, 6786587, 5502438, 45579935 ####[facility] [address] [place] [address] CHEMISTRYOrdered By: SYSTEM SYSTEM on 07-26-2023 Anion [...] ton 07-26-2023 CT Abdomen/Pelvis w/ Contrast Normal [facility] Consent for Treatmenton 06-28 Consent for Treatment [id number]#1 .00TIFF Normal [facility] Discharge Instructionson Discharge Instructions [id number] [id number] #1.00TIFF Normal [facility] ED Clinical Summaryon 2023 ED Clinical Summary Normal [facility] ED Note-Physicianon 07-26-19 24 ED Note-Physician Normal [facility] Comment on above: Result Comment: Elec tronically Signed By: Darren Lomax DObr\Date and Time Signed: 07/26/23 12:21 EDT ED Patient Education Noteon 07-26-2023 ED Patient Education Note Normal [facility] ED Patient Summaryon 024 ED Patient Summary Normal [facility] HEMATOLOGYOrdered By: SYSTEM SYSTEM on 07-26-2023 Basophils/100 [...] Ql Negative (07/26/23 9:47 AM) Normal [facility] Man Sero UA with Cult Rflxon 07-26-19 Color (U) Colorless Abnormal Yellow [facility] Comment on above: Result Comment: Micr oscopic readings are only performed on those samples that meet specific criteria set forth by [facility]. Performed By: #### 4 [id number] ####[facility] [address] [place] [address] Glucose (U) [Mass/Vol] Negative Normal Negative Fi [facility] Comment on above: Performed By: #### 4 [id number] ####[address] [place] [address] Ketones Ql (U) Negative Normal Negative [facility] Comment on above: Performed By: #### 4 065965302 ####[facility] [address] [place] [address] UA Blood Negative Normal Negative [facility] Comment on above: Performed By: #### 4 [id number] ####[facility] [address] [place] [address] UA Clarity Clear Normal Clear [facility] Comment on above: Performed By: #### 4 [id number] ####[facility] [address] [place] [address] UA Leuk Est Negative Normal Negative [facility] Comment on above: Performed By: #### 4 846753340 ####[facility] [address] [place] [address] UA Nitrite Negative Normal Negative [facility] Comment on above: Performed By: #### 4 812400222 ####[facility] [address] [place] [address] UA pH 7.0 Invalid Interpretation Code 5.0-9.0 [facility] Comment on above: Performed By: #### 4 806704423 ####[facility] [address] [place] [address] UA Protein Negative Normal Negative [facility] Comment on above: Performed By: #### 4 [id number] ####[address] [address] UA Spec Grav 1.008 Invalid Interpretation Code 1.005-1.030 [facility] Comment on above: Performed By: #### 4 [id number] ####[facility] [address] [place] [address] UA Urobilinogen Negative Normal Negative [facility] Comment on above: Performed By: #### 4 819454765 ####[address] [address] Urobilinogen (U) [Mass/Vol] Negative Normal Negative [facility] Comment on above: Performed By: #### 4 285843232 ####[facility] [address] [place] [address] UA Spec Desc Clean Catch Normal [facility] Comment on above: Performed By: #### 4 [id number] ####[facility] [address] [place] [address] URINALYSISOrdered By: SYSTEM SYSTEM on 07-26-2023 Color (U) Colorless 1 *ABN* (07/26/23 10:26 AM) Invalid Interpretation Code Yellow [facility] UA Auto SS Comment on above: Interpretive Data: M icroscopic readings are only performed on those samples that meet specific criteria set forth by [facility]. Glucose (U) [Mass/Vol] Negative Normal Negat ivemg/d L UA Auto SS Ketones Ql (U) Negative Normal Negativemg/d L FT UA Auto SS UA Blood Negative Normal Negativemg/d L FT UA Auto SS UA Clarity Clear (07/26/23 10:26 AM) Normal Clear [facility] UA Auto SS UA Leuk Est Negative Normal NegativeLeu/ uL FT UA Auto SS UA Nitrite Negative Normal Negativemg/d L FT UA Auto SS UA pH 7.0 *NA* (07/26/23 10:26 AM) Invalid Interpretation Code 5.0 - 9.0 FT UA Auto SS UA Protein Negative Normal [...] Desc Clean Catch (07/26/23 10:26 AM) Normal [facility] UA Auto SS Work Phone: eGFRon 07-26-2023 eGFR 102 mL/min/1.73 m2 Normal >=59 [facility] Comment on above: Order Comment: Order added by Discern Expert. Performed By: #### 1 7902818, 8969353, 1012833, 44317716 ####[facility] [place] [address] Physician Orderon 07-24-2023 Physician Order [id number]#1 .00TIFF Normal [facility] B hCG Qualon 07-19-2023 Beta HCG ( test) Ql Negative Normal [facility] Comment on above: Performed By: #### 1 2315779, 3627586, 05517300, 87893824, 1399183, 51104249, 1998903 ####[facility] [address] [place] [address] BMPon 07-19-2023 Calcium [Mass/Vol] 9.7 mg/dL Normal 8.9-11.1 [facility] Comment on above: Performed By: #### 1 1591669, 9373969, 30688097, 93076739, 1224917, 74217207, 5176504 ####[facility] [address] [place] [address] Chloride [Moles/Vol] 100 mmol/L Low 101-111 [facility] Comment on above: Performed By: #### 1 6645814, 6950838, 66464476, 73842452, 4313976, 39101080, 4811416 ####[facility] [address] [place] [address] Glucose [Mass/Vol] 106 mg/dL Normal 55-199 [facility] Comment on above: Performed By: #### 1 3260582, 6665231, 21272803, 73434556, 6238888, 66224520, 5850019 ####[facility] [address] [place] [address] Potassium [Moles/Vol] 3.6 mmol/L Normal 3.5-5.[address] [facility] Comment on above: Performed By: #### 1 4503507, 7758107, 70787334, 76098778, 7395835, 36224179, 2816484 ####[facility] [address] [place] [address] Sodium [Moles/Vol] 136 mmol/L Normal 135-145 [facility] Comment on above: Performed By: #### 1 5922763, 3352874, 51876288, 51785508, 2908670, 32711773, 3479033 ####[facility] [address] [place] [address] Urea nitrogen [Mass/Vol] 7 mg/dL Normal 5-21 [facility] Comment on above: Performed By: #### 1 3341905, 5967993, 24742550, 41072777, 2723904, 78357151, 1868497 ####[facility] [address] [place] [address] Anion gap [Moles/Vol] 14 mmol/L Normal 6-[address] [facility] Comment on above: Performed By: #### 1 8974936, 5969657, 08261742, 44328787, 6200525, 88698232, 1286379 ####[facility] [address] [place] [address] CO2 [Moles/Vol] 26 mmol/L Normal 21-31 [facility] Comment on above: Performed By: #### 1 7870126, 8628965, 16347672, 94731169, 7610098, 22321680, 8722945 ####[facility] [address] [place] [address] Creatinine [Mass/Vol] 0.8 mg/dL Normal 0.5-1.[address] [facility] Comment on above: Performed By: #### 1 3704840, 6954027, 28878593, 81357992, 6150965, 46020122, 3770647 ####[facility] [address] [place] [address] Urea nitrogen/Creatinine [Mass ratio] 9 No Units Low 10-20 [facility] Comment on above: Performed By: #### 1 0838930, 5126759, 84861312, 22120315, 5067633, 23457018, 3371739 ####[facility] [address] [place] [address] CBC w/ Auto Diffon 4 Basophils/100 WBC (Bld) 0.3 % Normal 0.0-2.0 [facility] Comment on above: Performed By: #### 1 3986324, 0600576, 09426040, 34017238, 4275211, 30655063, 2054991 ####[facility] [address] [place] [address] Basophils/Leukocytes Auto (Bld) [Pure # fraction] 0.0 E9/L Normal 0.0-0.2 [facility] Comment on above: Performed By: #### 1 3077106, 2816886, 57375278, 18224919, 1226375, 96283254, 1845578 ####[address] [place] [address] Eosinophils (Bld) [#/Vol] 0.2 E9/L Normal 0.0-0.5 [facility] Comment on above: Performed By: #### 1 4993670, 3204153, 88395261, 14628371, 3137835, 56961573, 8637069 ####[address] [place] [address] Eosinophils/100 WBC (Bld) 1.7 % Normal 0.0-8.0 [facility] Comment on above: Performed By: #### 1 0641811, 9049665, 64664842, 42787195, 8552994, 94149172, 8230452 ####[address] [address] Erythrocyte distribution width (RBC) [Ratio] 13.0 % Normal 10.9-14.2 [facility] Comment on above: Performed By: #### 1 2637208, 6906454, 42027455, 30416619, 6448277, 95275606, 4594145 ####[address] [address] Hematocrit (Bld) [Volume fraction] 42.7 % Normal 34.0-46.0 [facility] Comment on above: Performed By: #### 1 7099406, 4678200, 00201943, 93423772, 7300672, 82987835, 1066173 ####[address] [place] [address] Hemoglobin (Bld) [Mass/Vol] 14.7 g/dL Normal 12.0-16.0 [facility] Comment on above: Performed By: #### 1 8805600, 5229194, 41543218, 51098308, 6201752, 17722313, 9680897 ####[address] [address] Lymphocytes (Bld) [#/Vol] 1.4 E9/L Normal 1.0-4.0 [facility] Comment on above: Performed By: #### 1 1849432, 5635728, 09920364, 69967385, 5721963, 02487221, 4587936 ####[facility] [address] [place] [address] Lymphocytes/100 WBC (Bld) 13.2 % Low 14.0-50.0 [facility] Comment on above: Performed By: #### 1 4982154, 8166897, 34150676, 51768818, 9912109, 17855962, 4724387 ####[facility] [address] [place] [address] MCH (RBC) [Entitic mass] 30.6 pg Normal 27.0-34.0 [facility] Comment on above: Performed By: #### 1 5590529, 3196698, 85243568, 95828541, 8360677, 26431457, 9682246 ####[facility] [address] [place] [address] MCHC (RBC) [Mass/Vol] 34.5 g/dL Normal 31.4-36.[address] [facility] Comment on above: Performed By: #### 1 1136859, 0304548, 45795947, 28678147, 6706868, 40048118, 5366567 ####[place] [address] MCV (RBC) [Entitic vol] 88.8 fL Normal 80.0-100.0 [facility] Comment on above: Performed By: #### 1 6026522, 0107116, 68853264, 50951681, 9863960, 15329619, 1867003 ####[address] [place] [address] Monocytes (Bld) [#/Vol] 0.5 E9/L Normal 0.2-1.0 [facility] Comment on above: Performed By: #### 1 6735271, 5203195, 09567242, 54424275, 4345405, 66205496, 4861746 ####[facility] [address] [place] [address] Neutrophils (Bld) [#/Vol] 8.8 E9/L High 2.0-7.5 [facility] Comment on above: Performed By: #### 1 8966172, 1464306, 79841622, 40539501, 6568033, 10725100, 9805549 ####[facility] [address] [place] [address] Neutrophils/100 WBC (Bld) 80.3 % High 36.0-75.0 [facility] Comment on above: Performed By: #### 1 2388085, 3872294, 78410798, 09406835, 8374464, 78975468, 3940399 ####[address] [address] Platelet mean volume (Bld) [Entitic vol] 7.7 fL Normal 6.4-10.8 [facility] Comment on above: Performed By: #### 1 8094284, 3022536, 45151432, 05184306, 3794140, 74832027, 5095690 ####[address] [address] Platelets (Bld) [#/Vol] 430.0 E9/L Normal 150.0-500.0 [facility] Comment on above: Performed By: #### 1 5838062, 1967339, 45437720, 05788301, 6969089, 74033390, 8595633 ####[address] [place] [address] RBC (Bld) [#/Vol] 4.8 E12/L Normal 4.3-5.9 [facility] Comment on above: Performed By: #### 1 8697324, 7312882, 39901597, 06259348, 9869126, 16194058, 3071278 ####[facility] [address] [place] [address] WBC corrected for nucl RBC Auto (Bld) [#/Vol] 11.0 E9/L Normal 4.0-11.0 [facility] Comment on above: Performed By: #### 1 0639082, 1106749, 60473634, 74216058, 4037792, 30403622, 6541012 ####[facility] [address] [place] [address] CHEMISTRYOrdered By: SYSTEM SYSTEM on 07-19-2023 Anion [...] s High 25.1 - 36.5 second(s) [facility] Auto Coag Comment on above: Interpretive Data: [...] same coagulation reagent and instrumentation as [facility]. Currently there are no coagulation studies available worldwide for children to 14 days, and no normal ranges. Heparin therapeutic range (represented by Anti-Factor Xa activity of 0.2 - 0.4 U/mL) corresponds to PTT of 56.6 - 109.0 sec. Fibrin D-dimer FEU (PPP) [Mass/Vol] ng/mL FEU Low 215 - 500 ng/mL FEU [facility] Co[facility] Comment on above: Interpretive Data: [...] time] 1.17 {INR} Invalid Interpretation Code [facility] Coag Comment on above: Interpretive Data: I NR results are specifically intended to assess patients stabilized on long-term Anticoagulation therapy suggested INR s Less Intensive Anticoagulation 2.0 3.0 Conventional Range 3.0 4.5 PT Coag (PPP) [Time] 13.1 s High 9.4 - 1 2.5 second(s) [facility] Auto Coag Comment on above: Interpretive Data: [...] same coagulation reagent and instrumentation as [facility]. Currently there are no coagulation studies available worldwide for children to 14 days, and no normal ranges. Consent for Treatmenton 06-27 Consent for Treatment [id number]#1 .00TIFF Normal [facility] D-Dimeron 07-19-2023 Fibrin D-dimer FEU (PPP) [Mass/Vol] <215 Low 215-500 [facility] Comment on above: Result Comment: This assay [...] skin infectionsLiver cirrhosisPregnancy Performed By: #### 1 8560516, 7373853, 40997007, 80750495, 9442326, 06153550, 2728895 ####[facility] [address] [place] [address] Discharge Instructionson Discharge Instructions [id number] 4030 [id number]# 1.00TIFF Normal [facility] ED Clinical Summaryon 2023 ED Clinical Summary Normal Chavo [facility] ED Note-Physicianon 07-19-19 ED Note-Physician Normal [facility] Comment on above: Result Comment: Elec tronically Signed By: Ulisses Mckinney PA-C\.br\Date and Time Signed: 07/19/23 14:03 EDT\.br\Electronically Co-Signed By: Mary Jane Palm M.D.\.br\Date and Time Co-Signed: 07/19/23 19:21 EDT ED Patient Education Noteon 07-19-2023 ED Patient Education Note Normal [facility] ED Patient Summaryon 024 ED Patient Summary Normal [facility] HEMATOLOGYOrdered By: SYSTEM SYSTEM on 07-19-2023 Basophils/100 [...] Remisol Heme Monitor Recordon 07-19-2023 Monitor Record [id number]# 1.00TIFF Normal [facility] PT & PTTon 07-19-2023 aPTT Coag (PPP) [Time] 38.7 second(s) High 25.1-36.5 [facility] Comment on above: Result Comment: Para meter [...] same coagulation reagent and instrumentation as [facility]. Currently there are no coagulation studies available worldwide for children to 14 days, and no normal ranges. Heparin therapeutic range (represented by Anti-Factor Xa activity of 0.2 - 0.4 U/mL) corresponds to PTT of 56.6 - 109.0 sec. Performed By: #### 1 6772223, 7918706, 83577119, 25535554, 5821054, 00171698, 4569190 ####[facility] [address] [place] [address] INR Coag (PPP) [Relative time] 1.17 {INR} Invalid Interpretation Code [facility] Comment on above: Result Comment: INR results are specifically intended to assess patients stabilized on long-term Anticoagulation therapy suggested INR?s ?Less Intensive Anticoagulation? 2.0 ? 3.0Conventional Range 3.0 ? 4.5 Performed By: #### 1 5457622, 2056928, 11153911, 03033145, 1813644, 84952447, 1242757 ####[facility] [address] [place] [address] PT Coag (PPP) [Time] 13.1 second(s) High 9.4-12.5 [facility] Comment on above: Result Comment: 15 d [...] same coagulation reagent and instrumentation as [facility]. Currently there are no coagulation studies available worldwide for children to 14 days, and no normal ranges. Performed By: #### 1 2167483, 2884375, 08815668, 16554998, 2938307, 55758963, 4313298 ####[facility] [address] [place] [address] SEROLOGYOrdered By: Brii Walters on 07-19-2023 Beta HCG ( test) Ql Negative (07/19/23 9:38 AM) Normal [facility] Man Sero Troponin 0 Hr.on 07-19-2023 Troponin I.cardiac [Mass/Vol] ng/mL Low 10.10-27.10 [facility] Comment on above: Result Comment: The 95% CI (Confidence Interval) PPV (Positive Predictive Value) for myocardial infarction in females is 38 pg/mL, in males 51 pg/mL. The results should be used in conjunction with clinical conditions of myocardial infarction.(Access High Sensitivity Troponin I Instructions For Use, [employer], November 2017) Performed By: #### 1 2552529, 4824958, 87017500, 32073453, 3669377, 61665895, 3233817 ####[facility] [address] [place] [address] XR Chest Single Viewon 07-18 XR Chest Single View Normal Fish er [facility] eGFRon 07-19-2023 eGFR 102 mL/min/1.73 m2 Normal >=59 [facility] Comment on above: Order Comment: Order added by Discern Expert. Performed By: #### 1 6127062, 5517711, 83023136, 28884138, 0237972, 60628345, 4914460 ####[facility] [address] [place] [address] ED Note-Physicianon 07-14-19 ED Note-Physician Normal [facility] Comment on above: Result Comment: Elec tronically Signed By: Siomara Nettles PA-C\.br\Date and Time Signed: 07/12/23 20:40 EDT\.br\Electronically Co-Signed By: Justo Arias DO\.br\Date and Time Co-Signed: 07/14/23 07:25 EDT Physician Orderon 07-14-2023 Physician Order [id number]#1 .00TIFF Normal [facility] XR Chest Single Viewon 07-12 XR Chest Single View Normal [facility] BMPon 07-12-2023 Anion gap [Moles/Vol] 14 mmol/L Normal 6-[address] [facility] Comment on above: Performed By: #### 2 023595, 21110964, 81358457, 1129317, 5679923, 74333123 ####[facility] [address] [place] [address] Calcium [Mass/Vol] 10.1 mg/dL Normal 8.9-11.1 [facility] Comment on above: Performed By: #### 2 046315, 90630739, 89834558, 9722298, 7845622, 64670005 ####[facility] [address] [place] [address] Chloride [Moles/Vol] 101 mmol/L Normal 101-111 [facility] Comment on above: Performed By: #### 2 179453, 42817199, 33548634, 8095019, 4465275, 51828849 ####[facility] [address] [place] [address] CO2 [Moles/Vol] 24 mmol/L Normal 21-31 [facility] Comment on above: Performed By: #### 2 988576, 66314358, 95358497, 8632532, 4038468, 61355079 ####[facility] [address] [place] [address] Creatinine [Mass/Vol] 0.9 mg/dL Normal 0.5-1.[address] [facility] Comment on above: Performed By: #### 2 784840, 85773160, 83834258, 1482667, 2256228, 59201335 ####[facility] [address] [place] [address] Glucose [Mass/Vol] 98 mg/dL Normal 55-199 [facility] Comment on above: Performed By: #### 2 272229, 55953281, 05237001, 2772654, 8394518, 98804003 ####[facility] [address] [place] [address] Potassium [Moles/Vol] 3.1 mmol/L Low 3.5-5.[address] [facility] Comment on above: Performed By: #### 2 681106, 26417520, 81324056, 0725177, 0929460, 03860708 ####[facility] [address] [place] [address] Sodium [Moles/Vol] 136 mmol/L Normal 135-145 [facility] Comment on above: Performed By: #### 2 615428, 41207214, 43284840, 8516593, 2663968, 33617607 ####[address] [address] Urea nitrogen [Mass/Vol] 8 mg/dL Normal 5-21 [facility] Comment on above: Performed By: #### 2 405178, 35545143, 82168829, 9999360, 8107485, 46964620 ####[facility] [address] [place] [address] Urea nitrogen/Creatinine [Mass ratio] 9 No Units Low 10-20 [facility] Comment on above: Performed By: #### 2 974150, 08906575, 65381447, 0520926, 7831202, 99324873 ####[facility] [address] [place] [address] CBC w/ Auto Diffon 4 Basophils/100 WBC (Bld) 0.5 % Normal 0.0-2.0 [facility] Comment on above: Performed By: #### 2 986568, 42704821, 80707592, 2684884, 8123694, 03513719 ####[address] [place] [address] Basophils/Leukocytes Auto (Bld) [Pure # fraction] 0.1 E9/L Normal 0.0-0.2 [facility] Comment on above: Performed By: #### 2 226229, 35149154, 79957870, 6771713, 2313615, 41978788 ####[address] [place] [address] Eosinophils (Bld) [#/Vol] 0.1 E9/L Normal 0.0-0.5 [facility] Comment on above: Performed By: #### 2 994111, 87331509, 68313467, 0647266, 8826482, 58161995 ####[address] [place] [address] Eosinophils/100 WBC (Bld) 0.4 % Normal 0.0-8.0 [facility] Comment on above: Performed By: #### 2 118439, 35007830, 44439038, 5869832, 5234278, 77226015 ####[address] [address] [address] Erythrocyte distribution width (RBC) [Ratio] 13.0 % Normal 10.9-14.2 [facility] Comment on above: Performed By: #### 2 302063, 58301624, 26076411, 5337957, 2704059, 26998910 ####[address] [address] Hematocrit (Bld) [Volume fraction] 41.4 % Normal 34.0-46.0 [facility] Comment on above: Performed By: #### 2 966648, 64773892, 67057852, 4392077, 9055576, 66976724 ####[address] [place] [address] Hemoglobin (Bld) [Mass/Vol] 14.1 g/dL Normal 12.0-16.0 [facility] Comment on above: Performed By: #### 2 932956, 68511926, 65191853, 0020852, 5713171, 74912037 ####[address] [place] [address] Lymphocytes (Bld) [#/Vol] 3.3 E9/L Normal 1.0-4.0 [facility] Comment on above: Performed By: #### 2 567359, 25246377, 52125726, 7640420, 6005208, 01266864 ####[address] [address] Lymphocytes/100 WBC (Bld) 26.4 % Normal 14.0-50.0 [facility] Comment on above: Performed By: #### 2 288301, 91260291, 37929142, 2071625, 3305995, 70246267 ####[address] [address] MCH (RBC) [Entitic mass] 30.1 pg Normal 27.0-34.0 [facility] Comment on above: Performed By: #### 2 523394, 91699794, 43299282, 7044266, 7124283, 23526182 ####[address] [address] MCHC (RBC) [Mass/Vol] 34.1 g/dL Normal 31.4-36.[address] [facility] Comment on above: Performed By: #### 2 811943, 71815828, 51165628, 1381612, 4890831, 12022312 ####[address] [address] MCV (RBC) [Entitic vol] 88.3 fL Normal 80.0-100.0 [facility] Comment on above: Performed By: #### 2 029449, 28208988, 23632614, 2507442, 9113462, 79013051 ####[address] [address] Monocytes (Bld) [#/Vol] 0.8 E9/L Normal 0.2-1.0 [facility] Comment on above: Performed By: #### 2 104013, 71311897, 11629067, 9526287, 5016401, 44894900 ####[address] [address] Neutrophils (Bld) [#/Vol] 8.4 E9/L High 2.0-7.5 [facility] Comment on above: Performed By: #### 2 257273, 22479884, 81784661, 8959744, 0343752, 24431829 ####[address] [address] Neutrophils/100 WBC (Bld) 66.6 % Normal 36.0-75.0 [facility] Comment on above: Performed By: #### 2 619703, 74312719, 18154009, 0753631, 5167130, 90413117 ####[address] [address] Platelet 446.0 E9/L Normal 150.0-500.0 [facility] Comment on above: Performed By: #### 2 986735, 50342443, 22953790, 7601443, 4831403, 40200073 ####[address] [address] Platelet mean volume (Bld) [Entitic vol] 6.7 fL Normal 6.4-10.8 [facility] Comment on above: Performed By: #### 2 877249, 79137782, 61634822, 8851621, 8492073, 63060973 ####[address] [address] RBC (Bld) [#/Vol] 4.7 E12/L Normal 4.3-5.9 [facility] Comment on above: Performed By: #### 2 231268, 21442883, 53001671, 7807864, 4606253, 51234359 ####[address] [address] WBC corrected for nucl RBC Auto (Bld) [#/Vol] 12.6 E9/L High 4.0-11.0 [facility] Comment on above: Performed By: #### 2 322553, 61924613, 99665730, 6595667, 1791118, 75110966 ####[facility] [address] [place] [address] CHEMISTRYOrdered By: SYSTEM SYSTEM on 07-12-2023 Anion [...] s Normal 25.1 - 36.5 second(s) [facility] Comment on above: Interpretive Data: [...] same coagulation reagent and instrumentation as [facility]. Currently there are no coagulation studies available worldwide for children to 14 days, and no normal ranges. Heparin therapeutic range (represented by Anti-Factor Xa activity of 0.2 - 0.4 U/mL) corresponds to PTT of 56.6 - 109.0 sec. INR Coag (PPP) [Relative time] 1.18 {INR} Invalid Interpretation Code [facility] Comment on above: Interpretive Data: I NR results are specifically intended to assess patients stabilized on long-term Anticoagulation therapy suggested INR s Less Intensive Anticoagulation 2.0 3.0 Conventional Range 3.0 4.5 PT Coag (PPP) [Time] 13.2 s High 9.4 - 1 2.5 second(s) [facility] Comment on above: Interpretive Data: [...] same coagulation reagent and instrumentation as [facility]. Currently there are no coagulation studies available worldwide for children to 14 days, and no normal ranges. Consent for Treatmenton 06-26 Consent for Treatment [id number]#1 .00TIFF Normal [facility] Discharge Instructionson Discharge Instructions [id number]# 1.00TIFF Normal [facility] ED Clinical Summaryon 2023 ED Clinical Summary Normal [facility] ED Patient Education Noteon 07-12-2023 ED Patient Education Note Normal [facility] ED Patient Summaryon 024 ED Patient Summary Normal [facility] HEMATOLOGYOrdered By: SYSTEM SYSTEM on 07-12-2023 Basophils/100 [...] Magnesium [Mass/Vol] 2.0 mg/dL Normal 1.3-2.4 [facility] Comment on above: Performed By: #### 2 978144, 42865093, 87011800, 4314768, 1891318, 49380665 ####[facility] [address] [place] [address] Monitor Recordon 07-12-2023 Monitor Record [id number]# 1.00TIFF Normal [facility] PT & PTTon 07-12-2023 aPTT Coag (PPP) [Time] 35.8 second(s) Normal 25.1-36.5 [facility] Comment on above: Result Comment: Para meter [...] same coagulation reagent and instrumentation as [facility] Currently there are no coagulation studies available worldwide for children to 14 days, and no normal ranges. Heparin therapeutic range (represented by Anti-Factor Xa activity of 0.2 - 0.4 U/mL) corresponds to PTT of 56.6 - 109.0 sec. Performed By: #### 2 567798, 61676044, 76425654, 7104383, 9382498, 32847739 ####[facility] [address] [place] [address] INR Coag (PPP) [Relative time] 1.18 {INR} Invalid Interpretation Code [facility] Comment on above: Result Comment: INR results are specifically intended to assess patients stabilized on long-term Anticoagulation therapy suggested INR?s ?Less Intensive Anticoagulation? 2.0 ? 3.0Conventional Range 3.0 ? 4.5 Performed By: #### 2 039279, 41117736, 32725830, 2102188, 2993724, 03463478 ####[facility] [address] [place] [address] PT Coag (PPP) [Time] 13.2 second(s) High 9.4-12.5 [facility] Comment on above: Result Comment: 15 d [...] same coagulation reagent and instrumentation as [facility] Currently there are no coagulation studies available worldwide for children to 14 days, and no normal ranges. Performed By: #### 2 268106, 34296398, 16831898, 8002743, 6922834, 82633706 ####[facility] [address] [place] [address] Physician Orderon 07-12-2023 Physician Order [id number]# 1.00TIFF Normal [facility] Troponin 0 Hr.on 07-12-2023 Troponin I.cardiac [Mass/Vol] ng/mL Low 10.10-27.10 [facility] Comment on above: Result Comment: The 95% CI (Confidence Interval) PPV (Positive Predictive Value) for myocardial infarction in females is 38 pg/mL, in males 51 pg/mL. The results should be used in conjunction with clinical conditions of myocardial infarction.(Access High Sensitivity Troponin I Instructions For Use, Tegan Sammie, November 2017) Performed By: #### 2 180324, 18621419, 69108453, 8371470, 3568669, 09213670 ####[facility] [address] [place] [address] eGFRon 07-12-2023 eGFR 89 mL/min/1.73 m2 Normal >=59 [facility] Comment on above: Order Comment: Order added by Discern Expert. Performed By: #### 2 476087, 29571910, 72549302, 8531123, 9936670, 19394564 ####[facility] [address] [place] [address] Consenton 07-10-2023 Consent [id number]#1 .00TIFF Normal [facility] C Urineon 07-09-2023 Bacteria identified Cx Nom (U) Normal [facility] Comment on above: Performed By: #### 2 428131 ####[facility] [address] [place] [address] Family Medicine Office/Clini c Noteon 07-09-2023 Family Medicine Office/Clinic Note Normal [facility] Comment on above: Result Comment: Elec tronically Signed By: Ravinder LUKE, Amos Charles\.br\Date and Time Signed: 07/09/23 17:05 EDT Patient Educationon 07-09-19 Patient Education Normal [facility] ED Note-Physicianon 07-08-19 ED Note-Physician Normal [facility] Comment on above: Result Comment: Elec tronically Signed By: Sy Pickard PA-C\.br\Date and Time Signed: 07/07/23 14:17 EDT\.br\Electronically Co-Signed By: Justo Arias DO\.br\Date and Time Co-Signed: 07/08/23 06:57 EDT Nonvisit Note - PTon 024 Nonvisit Note - PT Pt did not show this date; Pt will have to return to physician for new script to return to PT. Normal [facility] Ambulatory Visit Summaryon 0 07-07-2023 Ambulatory Visit Summary Normal [facility] B hCG Qualon 07-07-2023 Beta HCG ( test) Ql Negative Normal [facility] Comment on above: Performed By: #### 2 6868634 ####[facility] [address] [place] [address] BMPon 07-07-2023 Anion gap [Moles/Vol] 10 mmol/L Normal 6-[address] [facility] Comment on above: Performed By: #### 2 729912, 9341025, 4527634, 6741663, 06157739 ####[facility] [address] [place] [address] Calcium [Mass/Vol] 9.7 mg/dL Normal 8.9-11.1 [facility] Comment on above: Performed By: #### 2 946374, 4275120, 0883912, 3671146, 29916807 ####[facility] [address] [place] [address] Chloride [Moles/Vol] 106 mmol/L Normal 101-111 Fish [facility] Comment on above: Performed By: #### 2 449420, 0057519, 5681171, 4941626, 56879106 ####[facility] [address] [place] [address] CO2 [Moles/Vol] 29 mmol/L Normal 21-31 [facility] Comment on above: Performed By: #### 2 249872, 7287177, 2667506, 8516025, 49068596 ####[facility] [address] [place] [address] Creatinine [Mass/Vol] 0.8 mg/dL Normal 0.5-1.[address] [facility] Comment on above: Performed By: #### 2 648583, 4752955, 7482643, 1727000, 94488211 ####[facility] [address] [place] [address] Glucose [Mass/Vol] 102 mg/dL Normal 55-199 [facility] Comment on above: Performed By: #### 2 361018, 1429685, 0693965, 2404673, 98082764 ####[facility] [address] [place] [address] Potassium [Moles/Vol] 3.8 mmol/L Normal 3.5-5.[address] [facility] Comment on above: Performed By: #### 2 894462, 6393728, 2284627, 5059927, 82706471 ####[facility] [address] [place] [address] Sodium [Moles/Vol] 141 mmol/L Normal 135-145 [facility] Comment on above: Performed By: #### 2 192552, 7432478, 0937900, 5902084, 43137970 ####[facility] [address] [place] [address] Urea nitrogen [Mass/Vol] 8 mg/dL Normal 5-21 [facility] Comment on above: Performed By: #### 2 510821, 8629313, 4297040, 9434206, 18954376 ####[facility] [address] [place] [address] Urea nitrogen/Creatinine [Mass ratio] 10 No Units Normal 10-20 [facility] Comment on above: Performed By: #### 2 924725, 8918999, 1566916, 9275516, 77440477 ####[address] [address] CBC w/ Auto Diffon 4 Basophils/100 WBC (Bld) 0.6 % Normal 0.0-2.0 [facility] Comment on above: Performed By: #### 2 297743, 2881891, 5493882, 7168188, 60462878 ####[address] [address] Basophils/Leukocytes Auto (Bld) [Pure # fraction] 0.1 E9/L Normal 0.0-0.2 [facility] Comment on above: Performed By: #### 2 282249, 1156535, 7549018, 3639008, 95419498 ####[address] [address] Eosinophils (Bld) [#/Vol] 0.2 E9/L Normal 0.0-0.5 [facility] Comment on above: Performed By: #### 2 342070, 6772802, 7532967, 7490375, 71352750 ####[address] [address] Eosinophils/100 WBC (Bld) 2.2 % Normal 0.0-8.0 [facility] Comment on above: Performed By: #### 2 916148, 3657838, 2392163, 5964512, 85893256 ####[address] [address] Erythrocyte distribution width (RBC) [Ratio] 13.1 % Normal 10.9-14.2 [facility] Comment on above: Performed By: #### 2 611118, 1128782, 8749951, 7646081, 76452261 ####[address] [place] [address] Hematocrit (Bld) [Volume fraction] 44.2 % Normal 34.0-46.0 [facility] Comment on above: Performed By: #### 2 487765, 5199271, 8150955, 3436729, 85740693 ####[address] [address] Hemoglobin (Bld) [Mass/Vol] 14.6 g/dL Normal 12.0-16.0 [facility] Comment on above: Performed By: #### 2 537414, 8699707, 6693961, 8007056, 50162306 ####[address] [address] Lymphocytes (Bld) [#/Vol] 2.2 E9/L Normal 1.0-4.0 [facility] Comment on above: Performed By: #### 2 981509, 2336415, 1274546, 0205588, 64246204 ####[address] [address] Lymphocytes/100 WBC (Bld) 26.0 % Normal 14.0-50.0 [facility] Comment on above: Performed By: #### 2 967478, 5776841, 6825540, 0614008, 43928598 ####[address] [address] MCH (RBC) [Entitic mass] 30.1 pg Normal 27.0-34.0 [facility] Comment on above: Performed By: #### 2 600758, 8797920, 1376064, 8002016, 49084257 ####[address] [address] MCHC (RBC) [Mass/Vol] 33.1 g/dL Normal 31.4-36.[address] [facility] Comment on above: Performed By: #### 2 609832, 9872093, 2370878, 6920690, 20018874 ####[address] [address] MCV (RBC) [Entitic vol] 90.7 fL Normal 80.0-100.0 [facility] Comment on above: Performed By: #### 2 176805, 7677775, 6493714, 6546055, 22769577 ####[facility] [address] [place] [address] Monocytes (Bld) [#/Vol] 0.5 E9/L Normal 0.2-1.0 [facility] Comment on above: Performed By: #### 2 712260, 3638702, 1606331, 4574685, 75287891 ####[address] [place] [address] Neutrophils (Bld) [#/Vol] 5.6 E9/L Normal 2.0-7.5 [facility] Comment on above: Performed By: #### 2 550435, 1604629, 6083228, 5826352, 73010300 ####[address] [address] Neutrophils/100 WBC (Bld) 65.3 % Normal 36.0-75.0 [facility] Comment on above: Performed By: #### 2 731577, 7551539, 2781553, 0567834, 11944839 ####[address] [place] [address] Platelet 422.0 E9/L Normal 150.0-500.0 [facility] Comment on above: Performed By: #### 2 142714, 7072034, 3348604, 5729790, 22911498 ####[address] [place] [address] Platelet mean volume (Bld) [Entitic vol] 7.1 fL Normal 6.4-10.8 [facility] Comment on above: Performed By: #### 2 857339, 8247106, 4972399, 6553982, 53484597 ####[address] [address] RBC (Bld) [#/Vol] 4.9 E12/L Normal 4.3-5.9 [facility] Comment on above: Performed By: #### 2 637179, 1589710, 3885503, 0292754, 83174750 ####[facility] [address] [place] [address] WBC corrected for nucl RBC Auto (Bld) [#/Vol] 8.6 E9/L Normal 4.0-11.0 [facility] Comment on above: Performed By: #### 2 493161, 9464865, 8659124, 7478099, 62492282 ####[facility] [address] [place] [address] CHEMISTRYOrdered By: SYSTEM SYSTEM on 07-07-2023 Albumin [...] Treatmenton 06-26 Consent for Treatment [id number]#1 .00TIFF Normal [facility] Discharge Instructionson Discharge Instructions [id number]# 1.00TIFF Normal [facility] ED Clinical Summaryon 2023 ED Clinical Summary Normal [facility] ED Patient Education Noteon 07-07-2023 ED Patient Education Note Normal [facility] ED Patient Summaryon 024 ED Patient Summary Normal [facility] Family Medicine Office/Clini c Noteon 07-07-2023 Family Medicine Office/Clinic Note Normal [facility] Comment on above: Result Comment: Elec tronically [...] 07-07-2023 Albumin [Mass/Vol] 4.8 g/dL Normal 3.3-5.0 [facility] Comment on above: Performed By: #### 2 266404, 8966444, 3162470, 5028860, 47430605 ####[facility] [address] [place] [address] Albumin/Globulin (S) [Mass conc ratio] 1.7 Normal 1.1-2.2 [facility] Comment on above: Performed By: #### 2 492855, 8159843, 9074858, 9170126, 38725176 ####[facility] [address] [place] [address] ALP [Catalytic activity/Vol] 109 Int._Unit/L High 21-98 [facility] Comment on above: Performed By: #### 2 455609, 6884112, 9268277, 9146842, 80361821 ####[facility] [address] [place] [address] ALT No additional P-5'-P [Catalytic activity/Vol] 15 Int._Unit/L Normal 6-46 [facility] Comment on above: Performed By: #### 2 561290, 9018430, 4951203, 0022146, 19580762 ####[facility] [address] [place] [address] AST [Catalytic activity/Vol] 16 Int._Unit/L Normal 5-43 [facility] Comment on above: Performed By: #### 2 453801, 0641981, 0872565, 4021610, 74173888 ####[facility] [address] [place] [address] Bilirubin [Mass/Vol] 0.3 mg/dL Normal 0.0-1.1 [facility] Comment on above: Performed By: #### 2 603443, 9054656, 5121536, 6087962, 97525326 ####[facility] [address] [place] [address] Bilirubin.direct [Mass/Vol] 0.1 mg/dL Normal 0.0-0.4 [facility] Comment on above: Performed By: #### 2 791808, 1780071, 4139630, 4683702, 18000077 ####[address] [address] Bilirubin.indirect [Mass or moles/Vol] 0.2 mg/dL Normal 0.1-0.9 [facility] Comment on above: Performed By: #### 2 803576, 5301133, 3292360, 0542788, 85998796 ####[address] [address] Globulin (S) [Mass/Vol] 2.8 g/dL Normal 1.4-4.0 [facility] Comment on above: Performed By: #### 2 341583, 6290299, 4918045, 0289031, 59376231 ####[address] [address] Protein [Mass/Vol] 7.6 g/dL Normal 6.0-7.8 [facility] Comment on above: Performed By: #### 2 909666, 9774323, 7725986, 2130288, 33346952 ####[address] [address] Lipase Levelon 07-07-2023 Lipase [Catalytic activity/Vol] 33 U/L Normal 13-58 [facility] Comment on above: Performed By: #### 2 302226, 4721427, 1092727, 0626676, 18987832 ####[facility] [address] [place] [address] Patient Educationon 07-07-19 Patient Education Normal [facility] Prescriptions/Work Noteson 0 07-07-2023 Prescriptions/Work Notes [id number]# 1.00TIFF Normal [facility] SEROLOGYOrdered By: Brii Walters on 07-07-2023 Beta HCG ( test) Ql Negative (07/07/23 11:20 AM) Normal [facility] Man Sero UA With Cult Reflexon 2023 Bacteria LM Ql (Urine sed) TRACE Normal Trace [facility] Comment on above: Performed By: #### 1 4115201 ####[facility] [address] [place] [address] Bilirubin Ql (U) Negative Normal Negative [facility] Comment on above: Performed By: #### 1 5926477 ####[facility] [address] [place] [address] Clarity (U) CLEAR Normal Clear [facility] Comment on above: Performed By: #### 1 4366034 ####[facility] [address] [place] [address] Color (U) YELLOW Normal Yellow [facility] Comment on above: Performed By: #### 1 7091368 ####[facility] [address] [place] [address] Epithelial cells.squamous LM.HPF (Urine sed) [#/Area] 0-2 Normal 0-2 [facility] Comment on above: Performed By: #### 1 8691310 ####[facility] [address] [place] [address] Glucose Test strip (U) [Mass/Vol] Negative Normal Negative [facility] Comment on above: Performed By: #### 1 0115391 ####[facility] [address] [place] [address] Hemoglobin Ql (U) Negative Normal Negative [facility] Comment on above: Performed By: #### 1 2693631 ####[facility] [address] [place] [address] Ketones (U) [Mass/Vol] Negative Normal Negative [facility] Comment on above: Performed By: #### 1 6650520 ####[address] [place] [address] [place].plasma/[place]. RBC (Bld) [Mass ratio] 0-3 Normal 0-3 [facility] Comment on above: Performed By: #### 1 5235765 ####[address] [address] Mucus Ql (Urine sed) TRACE Normal Fish [facility] Comment on above: Performed By: #### 1 7860439 ####[address] [address] Nitrite Ql (U) Negative Normal Negative [facility] Comment on above: Performed By: #### 1 3546106 ####[address] [address] pH (U) 7.0 [pH] Invalid Interpretation Code 5.0-9.0 [facility] Comment on above: Performed By: #### 1 4410104 ####[address] [address] Protein (U) [Mass/Vol] Negative Normal Negative [facility] Comment on above: Performed By: #### 1 3675852 ####[address] [address] Specific gravity (U) [Rel density] 1.015 Invalid Interpretation Code 1.005-1.030 [facility] Comment on above: Performed By: #### 1 6341261 ####[address] [address] Type of Urine collection method Clean Catch Normal [facility] Comment on above: Performed By: #### 1 7417112 ####[address] [address] Urobilinogen Qn (U) 0.2 {Jane'U}/dL Normal 0.0-1.0 [facility] Comment on above: Performed By: #### 1 8720333 ####[address] [address] WBC Auto Ql (U) Negative Normal Negative [facility] Comment on above: Performed By: #### 1 7307418 ####[facility] [address] [place] [address] WBC LM.HPF (Urine sed) [#/Area] 0-5 Normal 0-5 [facility] Comment on above: Performed By: #### 1 3599517 ####[facility] [address] [place] [address] URINALYSISOrdered By: Michael Walters on 07-07-2023 Bacteria [...] AM) Normal Negative [facility] UA Auto SS [place].plasma/[place]. RBC (Bld) [Mass ratio] 0-3 /HPF Normal [...] Invalid Interpretation Code 1.005 - 1.030 [facility] UA Auto SS UA Spec Desc Clean Catch (07/07/23 11:26 AM) Normal [facility] UA Auto SS Urobilinogen Qn (U) 0.6939579 {Jane'U}/dL Normal 0.0 - 1.0 EU/dL [facility] UA Auto SS WBC Auto Ql (U) Negative (07/07/23 11:26 AM) Normal Negative [facility] UA Auto SS WBC LM.HPF (Urine sed) [#/Area] 0-5 /HPF Normal 0-5/HPF [facility] UA Auto SS XR Abdomen 1 Viewon 07-07-19 XR Abdomen 1 View Normal [facility] eGFRon 07-07-2023 eGFR 102 mL/min/1.73 m2 Normal >=59 [facility] Comment on above: Order Comment: Order added by Discern Expert. Performed By: #### 2 551334, 7230894, 1399750, 4078897, 30006965 ####[facility] [address] [place] [address] BMPon 06-29-2023 Anion gap [Moles/Vol] 11 mmol/L Normal 6-[address] [facility] Comment on above: Performed By: #### 1 9969993, 5711350, 07446433, 05929817, 7416117 ####[facility] [address] [place] [address] Calcium [Mass/Vol] 9.4 mg/dL Normal 8.9-11.1 [facility] Comment on above: Performed By: #### 1 4254052, 5416467, 76497656, 58272554, 7229316 ####[facility] [address] [place] [address] Chloride [Moles/Vol] 104 mmol/L Normal 101-111 [facility] Comment on above: Performed By: #### 1 7810940, 0447302, 35316001, 73058951, 0786457 ####[facility] [address] [place] [address] CO2 [Moles/Vol] 27 mmol/L Normal 21-31 [facility] Comment on above: Performed By: #### 1 1394354, 2094948, 24456959, 46381045, 2381635 ####[facility] [address] [place] [address] Creatinine [Mass/Vol] 0.9 mg/dL Normal 0.5-1.[address] [facility] Comment on above: Performed By: #### 1 5725519, 7908871, 68925467, 91798531, 4623327 ####[facility] [address] [place] [address] Glucose [Mass/Vol] 109 mg/dL Normal 55-199 [facility] Comment on above: Performed By: #### 1 0322069, 4010689, 45382672, 63149192, 5352369 ####[facility] [address] [place] [address] Potassium [Moles/Vol] 3.5 mmol/L Normal 3.5-5.[address] [facility] Comment on above: Performed By: #### 1 7433840, 3931845, 82856051, 14637781, 9761720 ####[facility] [address] [place] [address] Sodium [Moles/Vol] 138 mmol/L Normal 135-145 [facility] Comment on above: Performed By: #### 1 0677551, 2715508, 09793896, 66248244, 2077910 ####[facility] [address] [place] [address] Urea nitrogen [Mass/Vol] 9 mg/dL Normal 5-21 [facility] Comment on above: Performed By: #### 1 3102187, 5728934, 28460022, 46721423, 1617013 ####[facility] [address] [place] [address] Urea nitrogen/Creatinine [Mass ratio] 10 No Units Normal 10-20 [facility] Comment on above: Performed By: #### 1 2680907, 9797465, 37566703, 70487387, 2501323 ####[address] [address] CBC w/ Auto Diffon 4 Basophils/100 WBC (Bld) 0.4 % Normal 0.0-2.0 [facility] Comment on above: Performed By: #### 1 3248463, 9131666, 17598856, 77258376, 2299695 ####[address] [address] Basophils/Leukocytes Auto (Bld) [Pure # fraction] 0.0 E9/L Normal 0.0-0.2 [facility] Comment on above: Performed By: #### 1 0395597, 6102472, 56709626, 69926039, 6095180 ####[address] [address] Eosinophils (Bld) [#/Vol] 0.0 E9/L Normal 0.0-0.5 [facility] Comment on above: Performed By: #### 1 6179131, 3785740, 61463834, 69489909, 4783183 ####[address] [address] Eosinophils/100 WBC (Bld) 0.3 % Normal 0.0-8.0 [facility] Comment on above: Performed By: #### 1 5287010, 2846136, 59992637, 41150462, 3686708 ####[address] [address] Erythrocyte distribution width (RBC) [Ratio] 13.1 % Normal 10.9-14.2 [facility] Comment on above: Performed By: #### 1 8494062, 9827095, 36048114, 04398229, 1116338 ####[address] [address] Hematocrit (Bld) [Volume fraction] 39.8 % Normal 34.0-46.0 [facility] Comment on above: Performed By: #### 1 2433525, 0129630, 35125845, 42131397, 1514622 ####[facility] [address] [place] [address] Hemoglobin (Bld) [Mass/Vol] 13.2 g/dL Normal 12.0-16.0 [facility] Comment on above: Performed By: #### 1 9149431, 2657887, 11094194, 51112599, 9313275 ####[address] [address] Lymphocytes (Bld) [#/Vol] 1.6 E9/L Normal 1.0-4.0 [facility] Comment on above: Performed By: #### 1 0748533, 9029079, 24656483, 61585590, 5573962 ####[address] [address] Lymphocytes/100 WBC (Bld) 11.8 % Low 14.0-50.0 [facility] Comment on above: Performed By: #### 1 0153696, 6562262, 88810016, 41493542, 8367434 ####[address] [address] MCH (RBC) [Entitic mass] 29.7 pg Normal 27.0-34.0 [facility] Comment on above: Performed By: #### 1 7796677, 1110455, 22464357, 11966791, 9452016 ####[address] [place] [address] MCHC (RBC) [Mass/Vol] 33.1 g/dL Normal 31.4-36.[address] [facility] Comment on above: Performed By: #### 1 4102804, 9120045, 23011893, 76029836, 4936302 ####[address] [place] [address] MCV (RBC) [Entitic vol] 89.7 fL Normal 80.0-100.0 [facility] Comment on above: Performed By: #### 1 2680303, 6338913, 80018155, 64117961, 0181980 ####[facility] [address] [place] [address] Monocytes (Bld) [#/Vol] 0.5 E9/L Normal 0.2-1.0 [facility] Comment on above: Performed By: #### 1 5939340, 0243293, 18201458, 18297355, 8766141 ####[facility] [address] [place] [address] Neutrophils (Bld) [#/Vol] 11.3 E9/L High 2.0-7.5 [facility] Comment on above: Performed By: #### 1 1739180, 3502978, 95187623, 25228666, 0526384 ####[address] [address] Neutrophils/100 WBC (Bld) 83.8 % High 36.0-75.0 [facility] Comment on above: Performed By: #### 1 4537012, 9306353, 99652585, 58385271, 4002824 ####[address] [address] Platelet 418.0 E9/L Normal 150.0-500.0 [facility] Comment on above: Performed By: #### 1 6071812, 7082613, 70798432, 56929076, 9847309 ####[facility] [address] [place] [address] Platelet mean volume (Bld) [Entitic vol] 7.0 fL Normal 6.4-10.8 [facility] Comment on above: Performed By: #### 1 7214115, 6673729, 77565154, 16139831, 0698790 ####[facility] [address] [place] [address] RBC (Bld) [#/Vol] 4.4 E12/L Normal 4.3-5.9 [facility] Comment on above: Performed By: #### 1 1127499, 7439990, 70722432, 06588948, 0055577 ####[facility] [address] [place] [address] WBC corrected for nucl RBC Auto (Bld) [#/Vol] 13.5 E9/L High 4.0-11.0 [facility] Comment on above: Performed By: #### 1 4075744, 3317471, 99900977, 44325339, 6001502 ####[facility] [address] [place] [address] CHEMISTRYOrdered By: SYSTEM SYSTEM on 06-29-2023 Anion [...] Tegan Sammie, November 2017) Urea nitrogen [Mass/Vol] 9 mg/dL Normal 5 - 21 mg/dL [facility] Urea nitrogen/Creatinine [Mass ratio] 10 mg/mg Normal 10 - 20 [facility] COAGULATIONOrdered By: Gogo Walters on 06-29-2023 aPTT Coag (PPP) [Time] 34.2 s Normal 25.1 - 36.5 second(s) [facility] Comment on above: Interpretive Data: [...] same coagulation reagent and instrumentation as [facility]. Currently there are no coagulation studies available worldwide for children to 14 days, and no normal ranges. Heparin therapeutic range (represented by Anti-Factor Xa activity of 0.2 - 0.4 U/mL) corresponds to PTT of 56.6 - 109.0 sec. INR Coag (PPP) [Relative time] 1.11 {INR} Invalid Interpretation Code [facility] Comment on above: Interpretive Data: I NR results are specifically intended to assess patients stabilized on long-term Anticoagulation therapy suggested INR s Less Intensive Anticoagulation 2.0 3.0 Conventional Range 3.0 4.5 PT Coag (PPP) [Time] 12.5 s Normal 9.4 - 1 2.5 second(s) [facility] Comment on above: Interpretive Data: [...] same coagulation reagent and instrumentation as [facility]. Currently there are no coagulation studies available worldwide for children to 14 days, and no normal ranges. Consent for Treatmenton Consent for Treatment [id number] .00TIFF Normal [facility] Discharge Instructionson Discharge Instructions [id number] 4030 [id number]# 1.00TIFF Normal [facility] ED Clinical Summaryon 2023 ED Clinical Summary Normal [facility] ED Note-Physicianon 06-29-19 ED Note-Physician Normal [facility] Comment on above: Result Comment: Elec tronically Signed By: Suman DC, Guille\.br\Date and Time Signed: 06/29/23 08:41 EST ED Patient Education Noteon 06-29-2023 ED Patient Education Note Normal [facility] ED Patient Summaryon 024 ED Patient Summary Normal [facility] HEMATOLOGYOrdered By: SYSTEM SYSTEM on 06-29-2023 Basophils/100 [...] 4 Influenzae A Ag Negative Normal Negative [facility] Comment on above: Performed By: #### 1 3453685, [id number] ####[facility] [address] [place] [address] Influenzae B Ag Negative Normal Negative [facility] Comment on above: Result Comment: Test sensitivity and specificity vary for age group, specimen type, antigen types, and prevalence of disease. Test results must be evaluated in conjunction with other clinical data available to the physician. Individuals who received nasally administered Influenza A vaccine may have positive test results up to 3 days after vaccination. Performed By: #### 1 1006657, [id number] ####[facility] [address] [place] [address] MICRO OTHER TESTSOrdered By: Sharon Walters on 06-29-2023 Influenzae A Ag Negative (06/29/23 6:41 AM) Normal Negative [facility] Influenzae B Ag Negative 1 (06/29/23 6:41 AM) Normal Negative [facility] Comment on above: Interpretive Data: [...] NEG Ctl Pass (06/29/23 6:41 AM) Normal [facility] Rapid COV Int POS Ctl Pass (06/29/23 6:41 AM) Normal [facility] SARS-CoV+SARS-CoV-2 (COVID-19) Ag IA.rapid Ql (Resp) Not Detected 6 (06/29/23 6:41 AM) Normal Not Detected [facility] Comment on above: Interpretive Data: T he [employer] Veritor System for Rapid Detection of SARS-CoV-2 [...] Coag (PPP) [Time] 34.2 second(s) Normal 25.1-36.5 [facility] Comment on above: Result Comment: Para meter [...] same coagulation reagent and instrumentation as [facility]. Currently there are no coagulation studies available worldwide for children to 14 days, and no normal ranges. Heparin therapeutic range (represented by Anti-Factor Xa activity of 0.2 - 0.4 U/mL) corresponds to PTT of 56.6 - 109.0 sec. Performed By: #### 1 8672847, 6366581, 76889139, 00992099, 2854356 ####[facility] [address] [place] [address] INR Coag (PPP) [Relative time] 1.11 {INR} Invalid Interpretation Code [facility] Comment on above: Result Comment: INR results are specifically intended to assess patients stabilized on long-term Anticoagulation therapy suggested INR?s ?Less Intensive Anticoagulation? 2.0 ? 3.0Conventional Range 3.0 ? 4.5 Performed By: #### 1 9392204, 1194379, 37731892, 01152428, 6268769 ####[facility] [address] [place] [address] PT Coag (PPP) [Time] 12.5 second(s) Normal 9.4-12.5 [facility] Comment on above: Result Comment: 15 d [...] same coagulation reagent and instrumentation as [facility]. Currently there are no coagulation studies available worldwide for children to 14 days, and no normal ranges. Performed By: #### 1 4533836, 2052864, 54564235, 37918913, 2872280 ####[address] [place] [address] Rapid COVID Antigen ([facility])on 06-29-2023 Rapid COV Int NEG Ctl Pass Normal [facility] Comment on above: Performed By: #### 1 1425745, [id number] ####[address] [place] [address] Rapid COV Int POS Ctl Pass Normal [facility] Comment on above: Performed By: #### 1 2616135, [id number] ####[address] [place] [address] SARS-CoV+SARS-CoV-2 (COVID-19) Ag IA.rapid Ql (Resp) Not detected Normal Not Detected [facility] Comment on above: Result Comment: The BD [...] or revoked sooner. Performed By: #### 1 0739847, [id number] ####[facility] [address] [place] [address] Troponin 0 Hr.on 06-29-2023 Troponin I.cardiac [Mass/Vol] ng/mL Low 10.10-27.10 [facility] Comment on above: Result Comment: The 95% CI (Confidence Interval) PPV (Positive Predictive Value) for myocardial infarction in females is 38 pg/mL, in males 51 pg/mL. The results should be used in conjunction with clinical conditions of myocardial infarction.(Access High Sensitivity Troponin I Instructions For Use, Tegan Waverly, November 2017) Performed By: #### 1 3929708, 8103033, 49396618, 82196473, 1669173 ####[facility] [address] [place] [address] XR Chest Single Viewon 06-28 XR Chest Single View Normal [facility] eGFRon 06-29-2023 eGFR 89 mL/min/1.73 m2 Normal >=59 [facility] Comment on above: Order Comment: Order added by Discern Expert. Performed By: #### 1 3689702, 7869424, 04337809, 34410837, 8201792 ####[facility] [address] [place] [address] Nonvisit Note - PTon 024 Nonvisit Note - PT Pt. did not show for PT appointment on 06/18/23. Red slip submitted per attendance policy. Normal [facility] Nonvisit Note - PTon 024 Nonvisit Note - PT Pt did not show up for her outpatient PT appt this date; attempted to call pt to remind her of her next appt and the department Attendance Policy re: no shows, but her voicemail box was full and was unable to leave a message. Normal [facility] ED Note-Physicianon 06-16-19 ED Note-Physician [facility] Comment on above: Result Comment: Elec tronically Signed By: Daxa Donis PA-C\.br\Date and Time Signed: 06/14/23 09:16 EST\.br\Electronically Co-Signed By: Justo Arias DO\.br\Date and Time Co-Signed: 06/16/23 07:06 EST Consent for Treatmenton 05-29 Consent for Treatment [id number]#1 .00TIFF [facility] Discharge Instructionson Discharge Instructions [id number]#1 .00TIFF Normal [facility] ED Clinical Summaryon 2023 ED Clinical Summary Normal [facility] ED Patient Education Noteon 06-14-2023 ED Patient Education Note Normal [facility] ED Patient Summaryon 024 ED Patient Summary Normal [facility] Nonvisit Note - PTon 024 Nonvisit Note - PT Patient has strep throat. Normal [facility] Nonvisit Note - PTon 024 Nonvisit Note - PT Patient called the front desk manager cancelling today's PT session, no reason given. Normal [facility] B hCG Qualon 05-31-2023 Beta HCG ( test) Ql Negative Normal [facility] Comment on above: Performed By: #### 1 6480061, 31571508, 9698439, 1461290, 4395018, 9505244 ####[facility] [address] [place] [address] BMPon 05-31-2023 Anion gap [Moles/Vol] 13 mmol/L Normal 6-[address] [facility] Comment on above: Performed By: #### 1 0132649, 38384280, 3666318, 6004375, 4550370, 6094919 ####[facility] [address] [place] [address] BUN/Creat Ratio 12 No Units Normal 10-20 [facility] Comment on above: Performed By: #### 1 3789598, 96437035, 8987433, 3276633, 9072518, 2487519 ####[facility] [address] [place] [address] Calcium [Mass/Vol] 9.2 mg/dL Normal 8.9-11.1 [facility] Comment on above: Performed By: #### 1 3376404, 75940451, 1270282, 8679529, 4223972, 0395457 ####[facility] [address] [place] [address] Chloride [Moles/Vol] 103 mmol/L Normal 101-111 [facility] Comment on above: Performed By: #### 1 3522644, 51710934, 7521039, 1137724, 9971018, 6658335 ####[facility] [address] [place] [address] CO2 [Moles/Vol] 26 mmol/L Normal 21-31 [facility] Comment on above: Performed By: #### 1 3123467, 00672072, 8987764, 5909445, 4593790, 9642985 ####[facility] [address] [place] [address] Creatinine [Mass/Vol] 0.8 mg/dL Normal 0.5-1.[address] [facility] Comment on above: Performed By: #### 1 4571849, 02231946, 0725143, 1489340, 2408051, 8364694 ####[facility] [address] [place] [address] Glucose [Mass/Vol] 104 mg/dL Normal 55-199 [facility] Comment on above: Performed By: #### 1 3233672, 88013799, 7610484, 4428586, 8609995, 2070260 ####[facility] [address] [place] [address] Potassium [Moles/Vol] 3.8 mmol/L Normal 3.5-5.[address] [facility] Comment on above: Performed By: #### 1 1356838, 50110550, 3938479, 1794344, 4166900, 5442909 ####[facility] [address] [place] [address] Sodium [Moles/Vol] 138 mmol/L Normal 135-145 [facility] Comment on above: Performed By: #### 1 9765979, 83602448, 3506853, 7226698, 8883378, 7262917 ####[facility] [address] [place] [address] Urea nitrogen [Mass/Vol] 10 mg/dL Normal 5-21 [facility] Comment on above: Performed By: #### 1 0153758, 35184137, 0692707, 2089666, 2679492, 2022031 ####[address] [address] CBC w/ Auto Diffon 4 Basophil Absolute 0.0 E9/L Normal 0.0-0.2 [facility] Comment on above: Performed By: #### 1 3936156, 70965238, 4594807, 0004913, 5695473, 3235511 ####[address] [address] Basophils/100 WBC (Bld) 0.5 % Normal 0.0-2.0 [facility] Comment on above: Performed By: #### 1 4327132, 42793002, 2518341, 5877283, 6997453, 0310023 ####[address] [address] Eos Absolute 0.1 E9/L Normal 0.0-0.5 [facility] Comment on above: Performed By: #### 1 8481817, 91759283, 9889369, 8456096, 5282692, 7988519 ####[address] [address] Eosinophils/100 WBC (Bld) 0.7 % Normal 0.0-8.0 [facility] Comment on above: Performed By: #### 1 9560422, 85643031, 5695956, 8327941, 7397056, 5066711 ####[address] [address] Erythrocyte distribution width (RBC) [Ratio] 13.2 % Normal 10.9-14.2 [facility] Comment on above: Performed By: #### 1 1968612, 37152842, 2778918, 9372359, 7044466, 2752226 ####[address] [address] Hematocrit (Bld) [Volume fraction] 42.0 % Normal 34.0-46.0 [facility] Comment on above: Performed By: #### 1 8435894, 53006059, 8231678, 3016001, 9785139, 9865310 ####[address] [address] Hemoglobin (Bld) [Mass/Vol] 13.8 g/dL Normal 12.0-16.0 [facility] Comment on above: Performed By: #### 1 8099851, 28199179, 7016358, 2576909, 7965748, 7695000 ####[address] [address] Lymph Absolute 1.7 E9/L Normal 1.0-4.0 [facility] Comment on above: Performed By: #### 1 5177100, 75170545, 0777026, 3870239, 7037487, 1201546 ####[address] [address] Lymphocytes/100 WBC (Bld) 16.6 % Normal 14.0-50.0 [facility] Comment on above: Performed By: #### 1 8501391, 26606033, 1489317, 1706473, 2563641, 1827737 ####[address] [address] MCH (RBC) [Entitic mass] 30.2 pg Normal 27.0-34.0 [facility] Comment on above: Performed By: #### 1 5850017, 28498383, 0813505, 7792180, 9695446, 1441711 ####[address] [address] MCHC (RBC) [Mass/Vol] 33.2 g/dL Normal 31.4-36.[address] [facility] Comment on above: Performed By: #### 1 5490527, 14213002, 3405929, 1006188, 0638433, 3038467 ####[address] [address] MCV (RBC) [Entitic vol] 91.1 fL Normal 80.0-100.0 [facility] Comment on above: Performed By: #### 1 3472551, 39430967, 6943060, 8589308, 4018220, 6347908 ####[address] [place] [address] [place] Absolute 0.4 E9/L Normal 0.2-1.0 [facility] Comment on above: Performed By: #### 1 5168933, 67283940, 6228441, 4766402, 9250496, 8268451 ####[address] [address] Monocytes/100 WBC (Bld) 3.5 % Low 4.0-14.0 [facility] Comment on above: Performed By: #### 1 6685019, 72021411, 6095023, 0499802, 0594886, 4165064 ####[address] [address] Neutro Absolute 8.2 E9/L High 2.0-7.5 [facility] Comment on above: Performed By: #### 1 5215669, 14465134, 2770435, 6608041, 3269392, 6295172 ####[address] [address] Neutro Auto 78.7 % High 36.0-75.0 [facility] Comment on above: Performed By: #### 1 0902712, 10568859, 9600899, 6626375, 5830300, 1770212 ####[address] [address] Platelet 423.0 E9/L Normal 150.0-500.0 [facility] Comment on above: Performed By: #### 1 4405158, 87797203, 4853620, 7534474, 6231007, 7524899 ####[address] [address] Platelet mean volume (Bld) [Entitic vol] 6.9 fL Normal 6.4-10.8 [facility] Comment on above: Performed By: #### 1 4989115, 04162999, 3665062, 4959754, 7926581, 7402148 ####[facility] [address] [place] [address] RBC 4.6 E12/L Normal 4.3-5.9 [facility] Comment on above: Performed By: #### 1 0077585, 86574207, 4350643, 5056735, 1660438, 1043685 ####[facility] [address] [place] [address] WBC 10.4 E9/L Normal 4.0-11.0 [facility] Comment on above: Performed By: #### 1 3582976, 43880645, 1884577, 1109623, 9288272, 2349113 ####[facility] [address] [place] [address] CHEMISTRYOrdered By: SYSTEM SYSTEM on 05-31-2023 Albumin [...] ton 05-31-2023 CT Abdomen/Pelvis w/ Contrast Normal [facility] Consent for Treatmenton Consent for Treatment [id number]#1 .00TIFF Normal [facility] Discharge Instructionson Discharge Instructions [id number] 4020 [id number]# 1.00TIFF Normal [facility] ED Clinical Summaryon 2023 ED Clinical Summary Normal [facility] ED Note-Nursingon 05-31-2023 ED Note-Nursing Patient provided wit h po fluids. Normal [facility] ED Note-Nursing Patient states no change in pain at this time, post pain medication. Normal [facility] ED Note-Physicianon 05-31-19 ED Note-Physician Normal [facility] Comment on above: Result Comment: Elec tronically Signed By: Sy Pickard PA-C\.br\Date and Time Signed: 05/31/23 11:06 EST\.br\Electronically Co-Signed By: Arpita Layton, Mary Jane Eugene\Date and Time Co-Signed: 05/31/23 17:55 EST ED Patient Education Noteon 05-31-2023 ED Patient Education Note Normal [facility] ED Patient Summaryon 024 ED Patient Summary Normal [facility] HEMATOLOGYOrdered By: SYSTEM SYSTEM on 05-31-2023 Basophil [...] Normal 80.0 - 100.0 fL Remisol Heme [place] Absolute 0.4 E9/L Normal 0.2 - 1.0 [...] 05-31-2023 Albumin [Mass/Vol] 4.5 g/dL Normal 3.3-5.0 [facility] Comment on above: Performed By: #### 1 0306525, 27807594, 0040579, 1006361, 4406719, 0987054 ####[facility] [address] [place] [address] Albumin/Globulin [Mass ratio] 1.5 {ratio} Normal 1.1-2.2 [facility] Comment on above: Performed By: #### 1 1093845, 76857249, 1617279, 9203441, 1529860, 6321053 ####[facility] [address] [place] [address] Alk Phos 112 Int._Unit/L High 21-98 [facility] Comment on above: Performed By: #### 1 8090919, 99434612, 0546539, 7309708, 3428329, 4825645 ####[facility] [address] [place] [address] ALT 13 Int._Unit/L Normal 6-46 [facility] Comment on above: Performed By: #### 1 0154452, 93313306, 6689853, 5276423, 4792211, 1836290 ####[facility] [address] [place] [address] AST 15 Int._Unit/L Normal 5-43 [facility] Comment on above: Performed By: #### 1 1053309, 81890421, 4696427, 0809663, 1210686, 6021557 ####[facility] [address] [place] [address] Bili Direct 0.2 mg/dL Normal 0.0-0.4 [facility] Comment on above: Performed By: #### 1 3058217, 19625431, 9407270, 5329988, 1788860, 3258667 ####[facility] [address] [place] [address] Bili Indirect 0.9 mg/dL Normal 0.1-0.9 [facility] Comment on above: Performed By: #### 1 9414988, 70980606, 4214003, 5048317, 6111425, 2079019 ####[facility] [address] [place] [address] Bili Total 1.1 mg/dL Normal 0.0-1.1 [facility] Comment on above: Performed By: #### 1 0418687, 61606870, 7291253, 9446795, 6480869, 7561841 ####[address] [address] Globulin (S) [Mass/Vol] 3.0 g/dL Normal 1.4-4.0 [facility] Comment on above: Performed By: #### 1 9052029, 87087039, 1490326, 8648701, 6321483, 8533679 ####[facility] [address] [place] [address] Protein [Mass/Vol] 7.5 g/dL Normal 6.0-7.8 [facility] Comment on above: Performed By: #### 1 1059415, 36069227, 4318483, 0303796, 0728926, 8300843 ####[facility] [address] [place] [address] Lipase Levelon 05-31-2023 Lipase Lvl 18 unit/L Normal 13-58 [facility] Comment on above: Performed By: #### 1 [id number], [id number], 9334334, 2419166, 9427273, 8772272 ####[facility] [address] [place] [address] Prescriptions/Work Noteson 0 05-31-2023 Prescriptions/Work Notes [id number]# 1.00TIFF Normal [facility] SEROLOGYOrdered By: Joselin olmos on 05-31-2023 Beta HCG ( test) Ql Negative (05/31/23 8:38 AM) Normal [facility] Man Sero UA With Cult Reflexon 2023 Bacteria LM Ql (Urine sed) TRACE Normal Trace [facility] Comment on above: Performed By: #### 1 [id number] ####[facility] [address] [place] [address] Bilirubin Ql (U) Negative Normal Negative [facility] Comment on above: Performed By: #### 1 [id number] ####[facility] [address] [place] [address], [place] [address] Clarity (U) CLEAR Normal Clear [facility] Comment on above: Performed By: #### 1 1035768 ####[facility] [address] [place] [address] Color (U) STRAW Invalid Interpretation Code [facility] Comment on above: Performed By: #### 1 5790939 ####[facility] [address] [place] [address] Epithelial cells.squamous LM.HPF (Urine sed) [#/Area] 0-2 Normal 0-2 [facility] Comment on above: Performed By: #### 1 9429941 ####[facility] [address] [place] [address] Glucose Test strip (U) [Mass/Vol] Negative Normal Negative [facility] Comment on above: Performed By: #### 1 9331002 ####[facility] [address] [place] [address] Hemoglobin Ql (U) Negative Normal Negative [facility] Comment on above: Performed By: #### 1 0658587 ####[facility] [address] [place] [address] Ketones (U) [Mass/Vol] Negative Normal Negative [facility] Comment on above: Performed By: #### 1 9890979 ####[address] [address] [place].plasma/[place]. RBC (Bld) [Mass ratio] 0-3 Normal 0-3 [facility] Comment on above: Performed By: #### 1 4632444 ####[address] [address] Nitrite Ql (U) Negative Normal Negative [facility] Comment on above: Performed By: #### 1 6128596 ####[address] [address] pH (U) 6.5 [pH] Invalid Interpretation Code 5.0-9.0 [facility] Comment on above: Performed By: #### 1 3917066 ####[address] [address] Protein (U) [Mass/Vol] Negative Normal Negative [facility] Comment on above: Performed By: #### 1 0152994 ####[address] [address] Specific gravity (U) [Rel density] <=1.005 Invalid Interpretation Code 1.005-1.030 [facility] Comment on above: Performed By: #### 1 4213057 ####[address] [address] Type of Urine collection method Clean Catch Normal [facility] Comment on above: Performed By: #### 1 1169360 ####[address] [address] Urobilinogen Qn (U) 0.2 {Jane'U}/dL Normal 0.0-1.0 [facility] Comment on above: Performed By: #### 1 2499232 ####[address] [address] WBC Auto Ql (U) Negative Normal Negative [facility] Comment on above: Performed By: #### 1 5588464 ####[address] [address] WBC LM.HPF (Urine sed) [#/Area] 0-5 Normal 0-5 [facility] Comment on above: Performed By: #### 1 7592772 ####[facility] [address] [address] URINALYSISOrdered By: Joselin ramirez on 05-31-2023 Bacteria [...] AM) Normal Negative [facility] UA Auto SS [place].plasma/[place]. RBC (Bld) [Mass ratio] 0-3 /HPF Normal 0-3/HPF [facility] UA A uto SS Nitrite Ql (U) [...] [facility] UA Auto SS Urobilinogen Qn (U) 0.0600157 {Jane'U}/dL Normal 0.0 - 1.0 EU/dL [facility] UA Auto SS WBC Auto Ql (U) Negative (05/31/23 8:56 AM) Normal Negative [facility] UA Auto SS WBC LM.HPF (Urine sed) [#/Area] 0-5 /HPF Normal 0-5/HPF [facility] UA Auto SS eGFRon 05-31-2023 eGFR 102 mL/min/1.73 m2 Normal >=59 [facility] Comment on above: Order Comment: Order added by Discern Expert. Performed By: #### 1 9250833, 58178563, 0123248, 4439307, 7474537, 9700811 ####[facility] [address] [place] [address] PT - Orderson 05-30-2023 PT - Orders [id number]# 1.00TIFF Normal [facility] Nonvisit Note - PTon 024 Nonvisit Note - PT Patient is not feeling well and requested to cancel. Normal [facility] Consent for Treatmenton 04-30 Consent for Treatment [id number] 401 [id number]#1 .00TIFF [facility] Consent for Treatment [id number] 401 [id number]#1 .00TIFF Normal [facility] Discharge Instructionson Discharge Instructions [id number]#1 .00TIFF Normal [facility] Discharge Instructions [id number] [id number]#1 .00TIFF Normal [facility] ED Clinical Summaryon 2023 ED Clinical Summary Normal [facility] ED Note-Physicianon 05-28-19 ED Note-Physician Normal [facility] Comment on above: Result Comment: Elec tronically Signed By: Ulisses Mckinney PA-C.tesha\Date and Time Signed: 05/28/23 10:54 EST\.br\Electronically Co-Signed By: Darren Lomax DO\Date and Time Co-Signed: 05/28/23 19:37 EST ED Patient Education Noteon 05-28-2023 ED Patient Education Note Normal [facility] ED Patient Summaryon ED Patient Summary Normal [facility] PT - Assessmentson PT - Assessments [id number]#1 .00TIFF Normal [facility] PT - Consentson 05-28-2023 PT - Consents [id number]#1 .00TIFF Normal [facility] PT - Home Exercise Programon 05-28-2023 PT - Home Exercise Program [id number]#1 .00TIFF [facility] PT - Orderson 05-28-2023 PT - Orders [id number]# 1.00TIFF [facility] Consent for Treatmenton 04-29 Consent for Treatment [id number] 401 [id number]#1 .00TIFF [facility] Discharge Instructionson Discharge Instructions [id number]# 1.00TIFF [facility] ED Clinical Summaryon 2023 ED Clinical Summary Normal [facility] ED Note-Physicianon 05-22-19 ED Note-Physician Normal [facility] Comment on above: Result Comment: Elec tronically Signed By: Arpita Layton, Mary Jane Hurley\.br\Date and Time Signed: 05/22/23 07:35 EST ED Patient Education Noteon 05-22-2023 ED Patient Education Note Normal [facility] ED Patient Summaryon 024 ED Patient Summary Normal [facility] XR Hand 3+ Views Righton XR Hand 3+ Views Right Normal [facility] Consultation Noteon 05-16-19 Consultation Note [id number]#1 .00TIFF Normal [facility] Ambulatory Visit Summaryon 0 05-11-2023 Ambulatory Visit Summary Normal [facility] Family Medicine Office/Clini c Noteon 05-11-2023 Family Medicine Office/Clinic Note Normal [facility] Comment on above: Result Comment: Elec tronically Signed By: Geovany Ramirez DO\.br\Date and Time Signed: 05/11/23 12:50 EST Nonvisit Note - PTon 024 Nonvisit Note - PT Chart reviewed with eval prepped for scheduled eval. KK [facility] XR Spine Lumbosacral Minimum 4 Viewson 05-07-2023 XR Spine Lumbosacral Minimum 4 Views [facility] Consent for Treatmenton Consent for Treatment [id number] 401 [id number]#1 .00TIFF [facility] Physician Orderon 05-06-2023 Physician Order [id number]# 1.00TIFF [facility] Physician Order [id number]# 1.00TIFF [facility] Ambulatory Visit Summaryon 0 05-03-2023 Ambulatory Visit Summary Normal [facility] Family Medicine Office/Clini c Noteon 05-03-2023 Family Medicine Office/Clinic Note Normal [facility] Comment on above: Result Comment: Elec tronically Signed By: Isaac Stephen PA-C\.br\Date and Time Signed: 05/03/23 13:04 EST ED Note-Physicianon 04-26-20 23 ED Note-Physician Normal [facility] Comment on above: Result Comment: Elec tronically Signed By: Guille Will MD\.br\Date and Time Signed: 04/26/23 00:41 EST Consent for Treatmenton 03-28 Consent for Treatment [id number]#1 .00TIFF [facility] Discharge Instructionson Discharge Instructions [id number] [id number]#1 .00TIFF Normal [facility] ED Clinical Summaryon 2022 ED Clinical Summary Normal [facility] ED Note-Physicianon 04-15-20 ED Note-Physician Normal [facility] Comment on above: Result Comment: Elec tronically Signed By: Savanna Rivero PA-C\.br\Date and Time Signed: 04/15/23 12:21 EST\.br\Electronically Co-Signed By: Justo Arias DO\.br\Date and Time Co-Signed: 04/15/23 18:36 EST ED Patient Education Noteon 04-15-2023 ED Patient Education Note Normal [facility] ED Patient Summaryon 023 ED Patient Summary Normal [facility] Auto Diffon 04-11-2023 Basophils/100 WBC (Bld) 0.3 % Normal 0.0-2.0 [facility] Comment on above: Order Comment: Order Added by Discern Expert. Performed By: #### 2 921858, 1657090, 4846624, 7475485, 91444571 ####[facility] [address] [place] [address] Basophils/Leukocytes Auto (Bld) [Pure # fraction] 0.0 E9/L Normal 0.0-0.2 [facility] Comment on above: Order Comment: Order Added by Discern Expert. Performed By: #### 2 342868, 3256993, 6251088, 4585305, 78669971 ####[facility] [address] [place] [address] Eosinophils/100 WBC (Bld) 0.1 % Normal 0.0-8.0 [facility] Comment on above: Order Comment: Order Added by Discern Expert. Performed By: #### 2 357474, 3369473, 4401066, 9042571, 58351366 ####[facility] [address] [place] [address] Eosinophils/Leukocytes Auto (Bld) [Pure # fraction] 0.0 E9/L Normal 0.0-0.5 [facility] Comment on above: Order Comment: Order Added by Discern Expert. Performed By: #### 2 050814, 6512865, 5888754, 4814596, 06619725 ####[address] [place] [address] Lymphocytes/100 WBC (Bld) 13.0 % Low 14.0-50.0 [facility] Comment on above: Order Comment: Order Added by Discern Expert. Performed By: #### 2 697099, 7345923, 7400859, 9102977, 94610311 ####[facility] [address] [place] [address] Lymphocytes/Leukocytes Auto (Bld) [Pure # fraction] 1.6 E9/L Normal 1.0-4.0 [facility] Comment on above: Order Comment: Order Added by Andria Expert. Performed By: #### 2 239825, 4976102, 4251023, 2218919, 13544573 ####[address] [address] Monocytes/100 WBC (Bld) 2.9 % Low 4.0-14.0 [facility] Comment on above: Order Comment: Order Added by Andria Expert. Performed By: #### 2 970415, 9230459, 4786731, 3275188, 74765440 ####[address] [address] Monocytes/Leukocytes Auto (Bld) [Pure # fraction] 0.4 E9/L Normal 0.2-1.0 [facility] Comment on above: Order Comment: Order Added by Andria Expert. Performed By: #### 2 924507, 1878927, 2158006, 3133351, 72290192 ####[address] [place] [address] Neutrophils/100 WBC (Bld) 83.7 % High 36.0-75.0 [facility] Comment on above: Order Comment: Order Added by Andria Expert. Performed By: #### 2 930510, 3525573, 3769188, 7508982, 12583794 ####[facility] [address] [place] [address] Neutrophils/Leukocytes Auto (Bld) [Pure # fraction] 10.0 E9/L High 2.0-7.5 [facility] Comment on above: Order Comment: Order Added by Discern Expert. Performed By: #### 2 714459, 8654547, 3607959, 6659049, 62689334 ####[facility] [address] [place] [address] BMPon 04-11-2023 Anion gap [Moles/Vol] 13 mmol/L Normal 6-[address] [facility] Comment on above: Performed By: #### 2 423458, 5489622, 5990135, 0610251, 77741594 ####[facility] [address] [place] [address] BUN/Creat Ratio 15 No Units Normal 10-20 [facility] Comment on above: Performed By: #### 2 725499, 1730809, 6325756, 1110635, 32490321 ####[facility] [address] [place] [address] Calcium [Mass/Vol] 9.8 mg/dL Normal 8.9-11.1 [facility] Comment on above: Performed By: #### 2 637691, 5828773, 8497429, 4431387, 84560922 ####[facility] [address] [place] [address] Chloride [Moles/Vol] 103 mmol/L Normal 101-111 [facility] Comment on above: Performed By: #### 2 547856, 2110578, 6985191, 7879641, 05229824 ####[facility] [address] [place] [address] CO2 [Moles/Vol] 30 mmol/L Normal 21-31 [facility] Comment on above: Performed By: #### 2 517594, 1211549, 5356800, 0353303, 77898138 ####[facility] [address] [place] [address] Creatinine [Mass/Vol] 0.8 mg/dL Normal 0.5-1.[address] [facility] Comment on above: Performed By: #### 2 758500, 3580548, 3300363, 2602646, 45084355 ####[facility] [address] [place] [address] Glucose [Mass/Vol] 110 mg/dL Normal 55-199 [facility] Comment on above: Performed By: #### 2 011483, 6623543, 2015127, 3318271, 79887785 ####[facility] [address] [place] [address] Potassium [Moles/Vol] 3.7 mmol/L Normal 3.5-5.[address] [facility] Comment on above: Performed By: #### 2 120553, 1669914, 8873934, 4165218, 20136440 ####[facility] [address] [place] [address] Sodium [Moles/Vol] 142 mmol/L Normal 135-145 [facility] Comment on above: Performed By: #### 2 393617, 5915725, 2895511, 4748230, 31356861 ####[facility] [address] [place] [address] Urea nitrogen [Mass/Vol] 12 mg/dL Normal 5-21 [facility] Comment on above: Performed By: #### 2 572499, 3636850, 8691816, 0946802, 33530852 ####[facility] [address] [place] [address] CBC w/ Auto Diffon 3 Erythrocyte distribution width (RBC) [Ratio] 13.1 % Normal 10.9-14.2 [facility] Comment on above: Performed By: #### 2 425630, 4787126, 1499438, 9700624, 38260926 ####[facility] [address] [place] [address] Hematocrit (Bld) [Volume fraction] 43.4 % Normal 34.0-46.0 [facility] Comment on above: Performed By: #### 2 574717, 0386598, 2418879, 5561206, 93378316 ####[facility] [address] [place] [address] Hemoglobin (Bld) [Mass/Vol] 14.1 g/dL Normal 12.0-16.0 [facility] Comment on above: Performed By: #### 2 006511, 3289356, 8175630, 0366262, 14537254 ####[address] [place] [address] MCH (RBC) [Entitic mass] 29.2 pg Normal 27.0-34.0 [facility] Comment on above: Performed By: #### 2 823984, 3930727, 3524322, 1042835, 65639484 ####[address] [address] MCHC (RBC) [Mass/Vol] 32.6 g/dL Normal 31.4-36.[address] [facility] Comment on above: Performed By: #### 2 081799, 9607491, 4875235, 3087553, 75021280 ####[address] [address] MCV (RBC) [Entitic vol] 89.7 fL Normal 80.0-100.0 [facility] Comment on above: Performed By: #### 2 395185, 3252647, 7281394, 1268253, 69476755 ####[address] [place] [address] Platelet mean volume (Bld) [Entitic vol] 6.9 fL Normal 6.4-10.8 [facility] Comment on above: Performed By: #### 2 700327, 1281604, 6179746, 7964114, 62775084 ####[address] [address] Platelets (Bld) [#/Vol] 488.0 E9/L Normal 150.0-500.0 [facility] Comment on above: Performed By: #### 2 146823, 6747451, 5180184, 2572906, 88123637 ####[facility] [address] [place] [address] RBC (Bld) [#/Vol] 4.8 E12/L Normal 4.3-5.9 [facility] Comment on above: Performed By: #### 2 863768, 2228375, 2610817, 1821322, 23065916 ####[facility] [address] [place] [address] WBC corrected for nucl RBC Auto (Bld) [#/Vol] 11.9 E9/L High 4.0-11.0 [facility] Comment on above: Performed By: #### 2 447096, 6818032, 1807568, 3551107, 04491598 ####[facility] [address] [place] [address] CRPon 04-11-2023 CRP [Mass/Vol] mg/L Normal <=1.9 [facility] Comment on above: Performed By: #### 2 878908, 4838847, 8749022, 2540953, 95142838 ####[facility] [address] [place] [address] CT Head or Brain w/ + w/o Co ntraston 04-11-2023 CT Head or Brain w/ + w/o Contrast Normal [facility] CT Maxillofacial w/ Contrast on 04-11-2023 CT Maxillofacial w/ Contrast Normal [facility] Consent for Treatmenton 03-28 Consent for Treatment [id number]#1 .00TIFF Normal [facility] Discharge Instructionson Discharge Instructions [id number]#1 .00TIFF Normal [facility] ED Clinical Summaryon 2022 ED Clinical Summary Normal [facility] ED Patient Education Noteon 04-11-2023 ED Patient Education Note Normal [facility] ED Patient Summaryon 023 ED Patient Summary Normal [facility] eGFRon 04-11-2023 GFR/1.73 sq M.predicted among non-blacks MDRD (S/P/Bld) [Vol rate/Area] mL/min/{1.73_m2} Normal >=59 [facility] Comment on above: Order Comment: Order added by Discern Expert. Performed By: #### 2 689342, 7143326, 9510255, 8260289, 17645946 ####[facility] [address] [place] [address] ED Note-Physicianon 04-10-20 ED Note-Physician Normal [facility] Comment on above: Result Comment: Elec tronically Signed By: Ulisses Mckinney PA-C\.br\Date and Time Signed: 03/30/23 18:21 EST\.br\Electronically Co-Signed By: Guille Will MD\.br\Date and Time Co-Signed: 04/10/23 07:40 EST Consent for Treatmenton Consent for Treatment [id number]#1 .00TIFF Normal [facility] Discharge Instructionson Discharge Instructions [id number]#1 .00TIFF Normal [facility] ED Clinical Summaryon 2022 ED Clinical Summary Normal [facility] ED Patient Education Noteon 03-30-2023 ED Patient Education Note Normal [facility] ED Patient Summaryon 023 ED Patient Summary Normal [facility] Family Medicine Office/Clini c Noteon 03-12-2023 Family Medicine Office/Clinic Note Normal [facility] Comment on above: Result Comment: Elec tronically Signed By: Amos Castellon PA-C\.br\Date and Time Signed: 03/12/23 09:12 EST Patient Educationon 03-12-20 Patient Education Normal [facility] Ambulatory Visit Summaryon 1 05-11-2022 Ambulatory Visit Summary Normal [facility] Consenton 01-24-2023 Consent [id number]#1 .00CD:127 Normal [facility] Family Medicine Office/Clini c Noteon 01-24-2023 [facility] Medicine Office/Clinic Note Normal [facility] Comment on above: Result Comment: Elec tronically Signed By: Rojelio Saldana PA-C.br\Date and Time Signed: 01/24/23 10:02 EDT Patient Educationon 01-25-20 Patient Education Normal [facility] Consenton 01-16-2023 Consent [id number]#1. 00CD:127 Normal [facility] Ambulatory Visit Summaryon 0 01-15-2023 Ambulatory Visit Summary Normal [facility] Family Medicine Office/Clini c Noteon 01-15-2023 Family Medicine Office/Clinic Note Normal [facility] Comment on above: Result Comment: Elec tronically Signed By: Rojelio Saldana PA-C, V.\.br\Date and Time Signed: 01/15/23 14:02 EDT Patient Educationon 01-16-20 Patient Education Normal [facility] Family Medicine Office/Clini c Noteon 11-21-2022 [facility] Medicine Office/Clinic Note Normal [facility] Comment on above: Result Comment: Elec tronically Signed By: Amos Castellon PA-C.br\Date and Time Signed: 11/21/22 09:11 EDT ED Note-Physicianon 11-21-19 ED Note-Physician Normal [facility] Comment on above: Result Comment: Elec tronically Signed By: Ulisses Mckinney PA-C.br\Date and Time Signed: 11/20/22 00:22 EDT\.br\Electronically Co-Signed By: Vivian Ochoa DO.br\Date and Time Co-Signed: 11/20/22 01:45 EDT XR Hand 3+ Views Righton XR Hand 3+ Views Right Normal [facility] XR Wrist 3+ Views Righton XR Wrist 3+ Views Right Normal F [facility]ius [facility] Consent for Treatmenton 10-27 Consent for Treatment [id number]#1 .00CD:127 Normal [facility] Discharge Instructionson Discharge Instructions [id number]# 1.00CD:127 Normal [facility] ED Clinical Summaryon 2022 ED Clinical Summary Normal Chavo [facility]quez [facility] ED Patient Education Noteon 11-19-2022 ED Patient Education Note Normal [facility] ED Patient Summaryon 023 ED Patient Summary Normal [facility] C Urineon 11-13-2022 Bacteria identified Cx Nom (U) Normal [facility] Comment on above: Performed By: #### 2 215838 ####[facility] [address] [place] [address] CHEMISTRYOrdered By: SYSTEM SYSTEM on 09-14-2021 Anion gap [Moles/Vol] 14 mmol/L Normal 6 - 16 mEq/L [place] [facility] Remisol Calcium [Mass/Vol] 9.3 mg/dL Normal 8.9 - 11. 1 mg/dL [facility] Remisol Chloride [Moles/Vol] 103 mmol/L Normal 101 - 1 11 mmol/L [facility] Remisol CO2 [Moles/Vol] 24 mmol/L Normal 21 - 31 mmol/L [facility] Remisol Creatinine [Mass/Vol] 0.7 mg/dL Normal 0.5 - 1.3 mg/dL [facility] Remisol GFR/1.73 sq M.predicted among blacks MDRD (S/P/Bld) [Vol rate/Area] mL/min/1.73 m2 Normal >=59mL/min/1 .73 m2 [facility] Chem S GFR/1.73 sq M.predicted among non-blacks MDRD (S/P/Bld) [Vol rate/Area] mL/min/1.73 m2 Normal >=59mL/min/1 .73 m2 [facility] Chem S Glucose [Mass/Vol] 89 mg/dL Normal [...] 10 - 20 [facility] Remisol HEMATOLOGYOrdered By: Muzooka SYSTEM on 09-14-2021 Basophils/100 WBC (Bld) 0.7 [...] PM) Normal Negative [facility] UA Auto SS [place].plasma/[place]. RBC (Bld) [Mass ratio] 0-3 /HPF Normal 0-3/HPF [facility] UA A uto SS Nitrite Ql (U) Negative (09/14/21 7:20 PM) Normal Negative [facility] UA Auto SS pH (U) 7.5 *NA* (09/14/21 7:20 PM) Invalid Interpretation Code 5.0 - 9.0 [facility] UA Auto SS Protein (U) [Mass/Vol] Negative (09/14/21 7:20 PM) Normal Negative [facility] UA Auto SS Specific gravity (U) [Rel density] 1.010 *NA* (09/14/21 7:20 PM) Invalid Interpretation Code 1.005 - 1.030 [facility] UA Auto SS UA Spec Desc Clean Catch (09/14/21 7:20 PM) Normal [facility] UA Auto SS Urobilinogen Qn (U) 0.5266290 {Jane'U}/dL Normal 0.0 - 1.0 EU/dL [facility] UA Auto SS WBC Auto Ql (U) Negative (09/14/21 7:20 PM) Normal Negative [facility] UA Auto SS WBC LM.HPF (Urine sed) [#/Area] 0-5 /HPF Normal 0-5/HPF [facility] [facility] Testing Ordered By: Leesa Choudhury on 09-12-2021 Test Code 633992 Invalid Interpretation Code [facility] Test Name IG PAP CTNG HPV Invalid Interpretation Code [facility] Group B Strep Screen PCRon 0 07-23-2021 Group B Strep Screen PCR Group B Strep Screen PCR --> Status: F POSITIVE Expected Result: Negative CDC guidelines for prevention of Group B Strep disease recommends collection of both vaginal and rectal specimens for optimal recovery of GBS. Methodology - Real Time PCR ([employer]) Expected Result: Negative CDC guidelines for prevention of Group B Strep disease recommends collection of both vaginal and rectal specimens for optimal recovery of GBS. Methodology - Real Time PCR ([employer]) 1 Organism Streptococcus agalactiae (Group B) Isolated: Susceptibility testing not routinely performed. Group B streptococcus is universally susceptible to beta-lactam antibiotics and vancomycin. If patient is beta-lactam allergic, please call [facility] ([phone]) within 2 days to request susceptibility testing. If isolated from urine, Group B strep may indicate colonization or infection. 1 Organism Antibiotic Result Intrp Ampicillin(DOMINGUEZ) <= 0.25 S Inducible Clindamycin Resistant(DOMINGUEZ)Neg Neg Ceftriaxone(DOMINGUEZ) <= 0.12 S Clindamycin(DOMINGUEZ) <= 0.25 S Vancomycin(DOMINGUEZ) 0.5 S Levofloxacin(DOMINGUEZ) 0.5 S Linezolid(DOMINGUEZ) <= 2 S Tetracycline(DOMINGUEZ) >= 16 R Erythromycin(DOMINGUEZ) <= 0.12 S Penicillin-G(DOMINGUEZ) <= 0.06 S Normal [facility] Comment on above: Performed By: #### B GLU #### [facility] [address] [place], [place] Glucose,Bedsideon 07-20-2021 Glucose [Mass/Vol] 114 mg/dL [address] Comment on above: Result Comment: Test performed by glucose meter. Results may be 10%-15% lower than serum/plasma values. (CLIA ID [id number]) Performed By: #### B GLU #### [facility] [address] [place], [place] Glucose [Mass/Vol] 148 mg/dL [facility] 70-100 [facility] Comment on above: Result Comment: Test performed by glucose meter. Results may be 10%-15% lower than serum/plasma values. (CLIA ID [id number]) Performed By: #### B GLU #### [facility] [address] [place], [place] Glucose [Mass/Vol] 109 mg/dL High 70-100 [facility] Comment on above: Result Comment: Test performed by glucose meter. Results may be 10%-15% lower than serum/plasma values. (CLIA ID [id number]) Performed By: #### B GLU #### [facility] [address] [place] [address] Glucose [Mass/Vol] 184 mg/dL High 70-100 [facility] Comment on above: Result Comment: Test performed by glucose meter. Results may be 10%-15% lower than serum/plasma values. (CLIA ID [id number]) Performed By: #### B GLU #### [facility] [address] [place] [address] POCT Glucoseon 07-20-2021 Glucose [Mass/Vol] 114 mg/dL High 70 - 100 mg/dL [facility] Work Phone: Comment on above: Test performed by gl ucose meter. Results may be 10%-15% lower than serum/plasma values. (CLIA ID [id number]) Interpretation and review of laboratory results Abnormal [facility] Work Phone: Test Performed by [facility], [address] [place] [id number] [place] [address] - [facility] Work Phone: Glucose [Mass/Vol] 148 mg/dL High 70 - 100 mg/dL [facility] Work Phone: Comment on above: Test performed by gl ucose meter. Results may be 10%-15% lower than serum/plasma values. (CLIA ID [id number]) Interpretation and review of laboratory results Abnormal [facility] Work Phone: Test Performed by [facility], [address] [place] [phone] [place] [address] - [facility] Work Phone: Test Performed by [facility], [facility] [place] [address] [facility] Test Performed by [facility], [address] [place] [phone] [place] [address] LAB POCT GlucoseOrdered By: Beka Handley on 07-20-2021 Glucose [Mass/Vol] 109 mg/dL High 70 - 100 mg/dL [facility] Comment on above: Test performed by gl ucose meter. Results may be 10%-15% lower than serum/plasma values. (CLIA ID [id number]) Interpretation and review of laboratory results Abnormal [facility] POCT GlucoseOrdered By: Che Mary on 07-20-2021 Glucose [Mass/Vol] 184 mg/dL High 70 - 100 mg/dL [facility] Comment on above: Test performed by gl ucose meter. Results may be 10%-15% lower than serum/plasma values. (CLIA ID [id number]) Interpretation and review of laboratory results Abnormal [facility] C. Trachomatis / N. Gonorrho eae, DNA Probeon 07-19-2021 C. trachomatis DNA ESTER+probe Ql (Genital specimen) NOT Detected Chlamydia trachomatis Nucleic Acid NOT Detected by DNA Amplification using the [employer] System. Culture is the only recommended test in medical-legal cases such as suspected child abuse or molestation. [facility] N. gonorrhoeae DNA ESTER+probe Ql (Unsp spec) NOT Detected Neisseria gonorrhoeae Nucleic Acid NOT Detected by DNA Amplification using the [employer]rowd[employer] System. Culture is the only recommended test in medical-legal cases such as suspected child abuse or molestation. [facility] Test Performed by [facility], [address] [place] [address] [id number] [facility] CBCon 07-19-2021 Hematocrit (Bld) [Volume fraction] 36.3 % 35.0 - 47.0 % [facility] Hemoglobin.gastrointest inal spec 1 Ql (Stl) 12.1 g/dL 11.7 - 16.0 g/dL [facility] Interpretation and review of laboratory results Abnormal [facility] MCH (RBC) [Entitic mass] 29.9 pg 26.0 - 34.0 pg [facility] MCHC (RBC) [Mass/Vol] 33.4 % 32.0 - 36.0 % [facility] MCV (RBC) [Entitic vol] 89.5 fL 79.0 - 98.0 fL [facility] Platelet distribution width (Bld) [Ratio] 14.7 % High 11.5 - 14.5 % [facility] Platelet mean volume (Bld) [Entitic vol] 8.1 fL 7.4 - 10.4 fL [facility] Platelets (Bld) [#/Vol] 381 10*3/uL 140 - 440 10*3/uL [facility] RBC (Bld) [#/Vol] 4.05 10*6/uL 3.80 - 5.2 0 10*6/uL [facility] WBC (Bld) [#/Vol] 21.9 10*3/uL High 3.6 - 10.7 10*3/uL [facility] Test Performed by [facility], [address] [place] [address] [address] [facility] Chlamydia and GC PCR Panelon 07-19-2021 Chlamydia [...] as suspected child abuse or molestation. Normal [facility] Comment on above: Performed By: #### B GLU #### [address] [id number] Comp Metabolic Panelon 07-19 Calcium [Mass/Vol] 7.6 mg/dL Low 8.4-10.4 [facility] Comment on above: Performed By: #### C MP3 #### [address] ALP [Catalytic activity/Vol] 157 U/L High 38-126 [facility] Comment on above: Performed By: #### C MP3 #### [address] [place] ALT [Catalytic activity/Vol] 13 U/L Normal 0-34 [facility] Comment on above: Result Comment: The ALT test is performed by an updated assay method. Please note that the reference intervals have been changed and are now sex specific. Performed By: #### C MP3 #### [facility] [address] [place], [place] Anion gap [Moles/Vol] 3 mmol/L Normal 3-13 [facility] Comment on above: Performed By: #### C MP3 #### [facility] [address] [place], [place] AST [Catalytic activity/Vol] 27 U/L Normal 15-46 [facility] Comment on above: Performed By: #### C MP3 #### [place] [address] [address] [place], [place] Bilirubin [Mass/Vol] 0.4 mg/dL Normal 0.2-1.3 [facility] Comment on above: Performed By: #### C MP3 #### [place] [address] [address] [place], [place] CO2 [Moles/Vol] 24 mmol/L Normal 22-30 [facility] Comment on above: Performed By: #### C MP3 #### [place] [address] [address] [place], [place] Creatinine [Mass/Vol] 0.44 mg/dL Low 0.52-1.25 [facility] Comment on above: Performed By: #### C MP3 #### [place] [address] [address] [place], [place] eGFR OTHER > 90.0 Normal >60 [facility] Comment on above: Result Comment: KDIG O [...] secretion. Performed By: #### C MP3 #### [facility] [address] [place], [place] GFR/1.73 sq M.predicted among blacks MDRD (S/P/Bld) [Vol rate/Area] mL/min/{1.73_m2} Normal >60 [facility] Comment on above: Performed By: #### C MP3 #### [place] [address] [address] [place], [place] Glucose [Mass/Vol] 103 mg/dL High 70-100 [facility] Comment on above: Performed By: #### C MP3 #### [place] [address] [address] [place], [place] Protein [Mass/Vol] 6.3 g/dL Normal 6.3-8.2 [facility] Comment on above: Performed By: #### C MP3 #### [place] [address] [address] [place], [place] Urea nitrogen [Mass/Vol] 3 mg/dL Low 9-20 [facility] Comment on above: Performed By: #### C MP3 #### [facility] [address] [place], [place] Potassium [Moles/Vol] 3.7 mmol/L Normal 3.5-5.1 [facility] Comment on above: Performed By: #### C MP3 #### [place] [address] [address] [place], [place] Albumin [Mass/Vol] 3.3 g/dL Low 3.5-5.0 [facility] Comment on above: Performed By: #### C MP3 #### [facility] [address] [place], [place] Chloride [Moles/Vol] 105 mmol/L Normal 98-107 [facility] Comment on above: Performed By: #### C MP3 #### [facility] [address] [place], [place] Sodium [Moles/Vol] 133 mmol/L Low 135-145 [facility] Comment on above: Performed By: #### C MP3 #### [facility] [address] [place], [place] Complete Urinalysison 2021 Appearance (U) Clear Normal Clear [facility] Comment on above: Result Comment: . Performed By: #### C UA2 #### [place] [address] [address] [place], [place] Bilirubin,Urine Negative Normal Negative [facility] Comment on above: Result Comment: . Performed By: #### C UA2 #### [place] [address] [address] [place], [place] Color (U) Colorless Normal Lt. Yellow [facility] Comment on above: Result Comment: . Performed By: #### C UA2 #### [place] [address] [address] [place], [place] Glucose Ql (U) Normal Normal Normal (<70) [facility] Comment on above: Result Comment: . Performed By: #### C UA2 #### [place] [address] [address] [place], [place] Ketone,Urine 10 mg/dL Abnormal Negative [facility] Comment on above: Result Comment: . Performed By: #### C UA2 #### [place] [address] [address] [place], [place] Leukocytes,Urine Negative Normal Negative [facility] Comment on above: Result Comment: . Performed By: #### C UA2 #### [place] [address] [address] [place], [place] Nitrites,Urine Negative Normal Negative [facility] Comment on above: Result Comment: . Performed By: #### C UA2 #### [place] [address] [address] [place] Occult Blood,Urine Negative Normal Negative [facility] Comment on above: Result Comment: . Performed By: #### C UA2 #### [facility] [address] [place], [place] pH,Urine 5.0 Normal 5.0-8.0 [facility] Comment on above: Result Comment: . Performed By: #### C UA2 #### [facility] [address] [place], [place] Specific [place],Urine < 1.005 Abnormal 1.005 - 1.030 [facility] Comment on above: Result Comment: . Performed By: #### C UA2 #### [facility] [address] [place], [place] Total Protein,Urine Negative Normal Negative [facility] Comment on above: Result Comment: . Performed By: #### C UA2 #### [facility] [address] [place], [place] Urobilinogen,Urine Normal Normal Normal (0-1) [facility] Comment on above: Result Comment: . Performed By: #### C UA2 #### [place] [address] [address] [place], [place] Comprehensive Metabolic Pane chata 07-19-2021 Albumin [...] - 1.25 mg/dL [facility] EGFR IF NonAfrican Senegalese >90.0 >60 mL/min [facility] Comment on above: KDIGO guidelines pro vide [...] 103 mg/dL High 70 - 100 mg/dL [facility] Interpretation and review of laboratory results Abnormal [facility] Potassium [Moles/Vol] 3.7 mmol/L 3.5 - 5.1 mmol/L [facility] Sodium [Moles/Vol] 133 mmol/L Low 135 - 145 mmol/L [facility] Urea nitrogen (BldV) [Mass/Vol] 3 mg/dL Low 9 - 20 mg/dL [facility] Test [facility] by [facility], [address] [place] [address] LAB [facility] Glucose,Bedsideon 07-19-2021 Glucose [Mass/Vol] 112 mg/dL High 70-100 [facility] Comment on above: Result Comment: Test performed by glucose meter. Results may be 10%-15% lower than serum/plasma values. (CLIA ID [id number]) Performed By: #### B GLU #### [address] Hemogramon 07-19-2021 Erythrocyte distribution width (RBC) [Ratio] 14.7 % High 11.5-14.5 [facility] Comment on above: Performed By: #### H EMOG #### [facility] [address] [place], [place] Hematocrit (Bld) [Volume fraction] 36.3 % Normal 35.0-47.0 [facility] Comment on above: Performed By: #### H EMOG #### [place] [address] [address] [place] Hemoglobin (Bld) [Mass/Vol] 12.1 g/dL Normal 11.7-16.0 [facility] Comment on above: Performed By: #### H EMOG #### [place] [address] [address] [place] MCH (RBC) [Entitic mass] 29.9 pg Normal 26.0-34.0 [facility] Comment on above: Performed By: #### H EMOG #### [place] [address] [address] [place] MCHC 33.4 % Normal 32.0-36.0 [facility] Comment on above: Performed By: #### H EMOG #### [place] [address] [address] [place] MCV (RBC) [Entitic vol] 89.5 fL Normal 79.0-98.0 [facility] Comment on above: Performed By: #### H EMOG #### [place] [address] [address] [place] Platelet mean volume (Bld) [Entitic vol] 8.1 fL Normal 7.4-10.4 [facility] Comment on above: Performed By: #### H EMOG #### [place] [address] [address] [place], [place] Platelets (Bld) [#/Vol] 381 10*3/uL Normal 140-440 [facility] Comment on above: Performed By: #### H EMOG #### [place] [address] [address] [place], [place] RBC (Bld) [#/Vol] 4.05 10*6/uL Normal 3.80-5.20 [facility] Comment on above: Performed By: #### H EMOG #### [facility] [address] [place], [place] WBC (Bld) [#/Vol] 21.9 10*3/uL High 3.6-10.7 [facility] Comment on above: Performed By: #### H EMOG #### [facility] [address] [place], [place] MFM US Biophy w/o non- stresson 07-19-2021 MFM US Biophy w/o non-stress Patient Name: ALEJANDRA REAL Maternal Medicine ACCESSION EXAM DATE/TIME PROCEDURE ORDERING PROVIDER [id number] 07/19/2021 09:43 EDT MFM US Biophy w/o [id number] JERRELL WHITNEY non-stress Reason For Exam ([facility] US Biophy w/o non-stress) PTL Report ------- OBSTETRICS REPORT (Signed Final 07/19/2021 10:21 am) ------- PATIENT INFO: ID #: [id number] : [birth year] (25 yrs) Name: ALEJANDRA REAL Visit Date: 07/19/2021 09:19 am ------- PERFORMED BY: Attending: Misti Ziegler MD Performed By: Shamika Mckee RDMS Referred By: JERRELL VELEZ Visit Type: Inpatient - Hospital ------- SERVICE(S) PROVIDED: US >= 14 weeks 51107 BPP w/out NST 74498 ------- INDICATIONS: Labor H/O PTD ------- VITAL [...] Normal appearance Interventr. Septum: Normal appearance Cardiac Floyd: Normal appearance Diaphragm: Normal appearance 3 Vessel [...] live i (more content not included)... Normal [facility] After 1st T rimesteron 07-19-2021 MFM US After 1st Trimester Patient Name: ALEJANDRA REAL Maternal Medicine ACCESSION EXAM DATE/TIME PROCEDURE ORDERING PROVIDER [id number] 07/19/2021 09:43 EDT MFM US Biophy w/o [id number] JERRELL WHITNEY non-stress Reason For Exam ([facility] US Biophy w/o non-stress) PTL Report ------- OBSTETRICS REPORT (Signed Final 07/19/2021 10:21 am) ------- PATIENT INFO: ID #: [id number] : [birth year] (25 yrs) Name: ALEJANDRA REAL Visit Date: 07/19/2021 09:19 am ------- PERFORMED BY: Attending: Misti Ziegler MD Performed By: Shamika Mckee RDMS Referred By: JERRELL VELEZ Visit Type: Inpatient - Hospital ------- SERVICE(S) PROVIDED: US >= 14 weeks 44259 BPP w/out NST 34187 ------- INDICATIONS: Labor H/O PTD ------- VITAL [...] Normal appearance Interventr. Septum: Normal appearance Cardiac Floyd: Normal appearance Diaphragm: Normal appearance 3 Vessel [...] live i (more content not included)... Normal [facility] No Panel Informationon 07-19 Radiology Study observation (narrative) [facility] Work Phone: POCT GlucoseOrdered By: Venancio Hollingsworth on 07-19-2021 Glucose [Mass/Vol] 112 mg/dL High 70 - 100 mg/dL [facility] Comment on above: Test performed by ucose meter. Results may be 10%-15% lower than serum/plasma values. (CLIA ID [id number]) Interpretation and review of laboratory results Abnormal [facility] POCT Glucoseon 07-19-2021 Test Performed by [facility], [address] [place] [address] [address] [facility] LAB RADIOLOGY REPORTon 2 Ordered by an unspecified provider. [facility] TS GELon 07-19-2021 TS GEL ABO Group: O Rh, Gel: POS Antibody Screen Gel: NEG Normal [facility] Comment on above: Performed By: #### T SGL #### [facility] TYPE AND SCREENon 07-19-2021 ABO Grouping O [facility] Rh Type Positive [facility] Test Performed by [address] LAB [facility] Trichomonas Vaginali, Molecu alesia 07-19-2021 Trichomonas Vaginali, Molecular NOT Detected Reference Interval: Not Detected Method: Real-time PCR. Negative results do not completely rule out infection with Trichomonas vaginalis. [facility] Test Performed by [facility], [address] [place] [address] LAB [facility] Trichomonas vaginalis PCRon 07-19-2021 Trichomonas vaginalis PCR Trichomonas vaginalis PCR --> Status: F NOT Detected Reference Interval: Not Detected Method: Real-time PCR. Negative results do not completely rule out infection with Trichomonas vaginalis. Reference Interval: Not Detected Method: Real-time PCR. Negative results do not completely rule out infection with Trichomonas vaginalis. Normal [facility] Comment on above: Performed By: #### C TNGP, TVPCR #### [address] [address] US BIOPHYSICAL PROFILE WO NON STRESS TESTINGon 07-19-2021 Patient Name: ALEJANDRA REAL Maternal Medicine ACCESSION EXAM DATE/TIME PROCEDURE ORDERING PROVIDER [id number] 07/19/2021 09:43 EDT [facility] US Biophy w/o JERRELL LOCKETT non-stress Reason For Exam ([facility] US Biophy w/o non-stress) PTL Report ------- OBSTETRICS REPORT (Signed Final 07/19/2021 10:21 am) ------- PATIENT INFO: ID #: [id number] : [birth year] (25 yrs) Name: ALEJANDRA REAL Visit Date: 07/19/2021 09:19 am ------- PERFORMED BY: Attending: Misti Ziegler MD Performed By: Shamika Mckee RDMS Referred By: JERRELL VELEZ Visit Type: Inpatient - Hospital ------- SERVICE(S) PROVIDED: US >= 14 weeks 14835 BPP w/out NST 28381 ------- INDICATIONS: Labor H/O PTD ------- VITAL [...] Cardiac Situs: Norm (more content not included)... [facility] Misti Cisneros MD - 07/19/2021 Patient Name: ALEJANDRA REAL Maternal Medicine ACCESSION EXAM DATE/TIME PROCEDURE ORDERING PROVIDER [id number] 07/19/2021 09:[address] [facility] Biophy w/o [id number] JERRELL WHITNEY non-stress Reason For Exam ([facility] US Biophy w/o non-stress) PTL Report ------- OBSTETRICS REPORT (Signed Final 07/19/2021 10:21 am) ------- PATIENT INFO: ID #: [id number] : [birth year] (25 yrs) Name: ALEJANDRA REAL Visit Date: 07/19/2021 09:19 am ------- PERFORMED BY: Attending: Misti Ziegler MD Performed By: Shamika Mckee RDMS Referred By: JERRELL VELEZ Visit Type: Inpatient - Hospital ------- SERVICE(S) PROVIDED: US >= 14 weeks 45756 BPP w/out NST 34844 ------- INDICATIONS: Labor H/O PTD ------- VITAL [...] Normal appearance Interventr. Septum: Normal appearance Cardiac Floyd: Normal appearance Diaphragm: Normal appearance 3 Vessel [...] Comment: Anatomy pablo (more content not included)... [facility] Work Phone: US BIOPHYSICAL PROFILE WO NON STRESS TESTINGOrdered By: Misti Ziegler on 07-19-2021 [facility] Work Phone: US OB 14 PLUS WEEKS SINGLE O R FIRST GESTATIONon 07-19-2021 Patient Name: ALEJANDRA REAL Maternal Medicine ACCESSION EXAM DATE/TIME PROCEDURE ORDERING PROVIDER [id number] 07/19/2021 09:43 EDT [facility] US Biophy w/o [id number] -JERRELL VELEZ non-stress Reason For Exam ([facility] US Biophy w/o non-stress) PTL Report ------- OBSTETRICS REPORT (Signed Final 07/19/2021 10:21 am) ------- PATIENT INFO: ID #: [id number] : [birth year] (25 yrs) Name: ALEJANDRA REAL Visit Date: 07/19/2021 09:19 am ------- PERFORMED BY: Attending: Misti Ziegler MD Performed By: Shamika Mckee RDMS Referred By: JERRELL VELEZ Visit Type: Inpatient - Hospital ------- SERVICE(S) PROVIDED: US >= 14 weeks 87095 BPP w/out NST 34880 ------- INDICATIONS: Labor H/O PTD ------- VITAL [...] Medicine ACCESSION EXAM DATE/TIME PROCEDURE ORDERING PROVIDER [id number] 07/19/2021 09:43 EDT [facility] US Biophy w/o [id number] JERRELL WHITNEY non-stress Reason For Exam ([facility] US Biophy w/o non-stress) PTL Report ------- OBSTETRICS REPORT (Signed Final 07/19/2021 10:21 am) ------- PATIENT INFO: ID #: [id number] : [birth year] (25 yrs) Name: ALEJANDRA REAL Visit Date: 07/19/2021 09:19 am ------- PERFORMED BY: Attending: Misti Ziegler MD Performed By: Shamika Mckee RDMS Referred By: JERRELL VELEZ Visit Type: Inpatient - Hospital ------- SERVICE(S) PROVIDED: US >= 14 weeks 23709 BPP w/out NST 62405 ------- INDICATIONS: Labor H/O PTD ------- VITAL [...] Normal appearance Interventr. Septum: Normal appearance Cardiac Floyd: Normal appearance Diaphragm: Normal appearance 3 Vessel [...] Comment: Anatomy pablo (more content not included)... [facility] Work Phone: [phone] [facility] Work Phone: [phone] Urinalysison 07-19-2021 Appearance (U) Clear Clear NA [...] [pH] [facility] Comment on above: . Specific [place], Urine <1.005 Abnormal S [facility] Comment on above: . Total Protein, Urine Negative Negativ e mg/dL [facility] Comment on above: . Urobilinogen, Urine Normal Normal ( 0-1) mg/dL [facility] Comment on above: . Test Performed by [facility], [address] [place] [id number] [place] [address] LAB [facility] ABO, External Resulton 12-27 ABO, External Result O [facility] Work Phone: [phone] C. Trachomatis, External Res [facility] 12-27-2020 C. Trachomatis, External Result Negative [facility] Work Phone: [phone] HIV, External Resulton 12-27 HIV, External Result Non-Reactive [facility] Work Phone: [phone] Hepatitis B, External Result on 12-27-2020 Hep B, External Result Negative [facility] Work Phone: [phone] N. Gonorrhoeae, External Res [facility] 12-27-2020 N. Gonorrhoeae, External Result Negative [facility] Work Phone: No Panel Informationon 12-27 [facility] [...] 11-29-2023 06:45-0400 Body temperature 98.42 [degF] Bruno Jara [facility] 11-29-2023 06:45-0400 Diastolic blood pressure 66 mm[Hg] Bruno Estefani [facility] 11-29-2023 06:45-0400 Heart rate 102 /min Bruno Estefani [facility] 11-29-2023 06:45-0400 Respiratory rate 20 /min Bruno Jara [facility] 11-29-2023 06:45-0400 SaO2% (BldA) [Mass fraction] 100 % Bruno Estefani [facility] 11-29-2023 06:45-0400 Systolic blood pressure 105 mm[Hg] Bruno Estefani [facility] 11-26-2023 10:30-0400 Body temperature 98.06 [degF] Justo Arias [facility] 11-26-2023 10:30-0400 Diastolic blood pressure 88 mm[Hg] Justo Ricoe [facility] 11-26-2023 10:30-0400 Heart rate 81 /min Justo Ricoe [facility] 11-26-2023 10:30-0400 Respiratory rate 18 /min Justo Arias [facility] 11-26-2023 10:30-0400 SaO2% (BldA) [Mass fraction] 100 % Justo Arias [facility] 11-26-2023 10:30-0400 Systolic blood pressure 136 mm[Hg] Justo Arias [facility] 11-24-2023 11:55-0400 Body temperature 98.6 [degF] Justo Arias [facility] 11-24-2023 11:55-0400 Diastolic blood pressure 85 mm[Hg] Justo Arias [facility] 11-24-2023 11:55-0400 Heart rate 91 /min Justo Arias [facility] 11-24-2023 11:55-0400 Respiratory rate 16 /min Justo Arias [facility] 11-24-2023 11:55-0400 SaO2% (BldA) [Mass fraction] 100 % Justo Arias [facility] 11-24-2023 11:55-0400 Systolic blood pressure 137 mm[Hg] Justo Arias [facility] 11-24-2023 11:11-0400 Blood Pressure Location Fatoumata Bon [facility] 11-24-2023 11:11-0400 Diastolic blood pressure 73 mm[Hg] Fatoumata Gooden [facility] 11-24-2023 11:11-0400 Heart rate 78 /min Fatoumata Gooden [facility] 11-24-2023 11:11-0400 Respiratory rate 16 /min Fatoumata Gooden [facility] 11-24-2023 11:11-0400 SaO2% (BldA) [Mass fraction] 99 % Fatoumata Gooden [facility] 11-24-2023 11:11-0400 Systolic blood pressure 124 mm[Hg] Fatoumata Gooden [facility] 11-05-2023 09:01-0400 Heart rate 89 /min Guille Suman [facility] 11-05-2023 09:01-0400 Respiratory rate 16 /min Guille Suman [facility] 11-05-2023 09:01-0400 SaO2% (BldA) [Mass fraction] 98 % Guille Suman [facility] 11-05-2023 08:35-0400 Diastolic blood pressure 80 mm[Hg] Guille Suman [facility] 11-05-2023 08:35-0400 Heart rate 89 /min Guille Suman [facility] 11-05-2023 08:35-0400 Hourly Rounding Guille Suman [facility] 11-05-2023 08:35-0400 Mean blood pressure 92 mm[Hg] Guille Suman [facility] 11-05-2023 08:35-0400 Respiratory rate 16 /min Guille Usman [facility] 11-05-2023 08:35-0400 SaO2% (BldA) [Mass fraction] 99 % Guille Suman [facility] 11-05-2023 08:35-0400 Systolic blood pressure 116 mm[Hg] Guille Suman [facility] 11-05-2023 08:00-0400 Diastolic blood pressure 66 mm[Hg] Guille Suman [facility] 11-05-2023 08:00-0400 Heart rate 82 /min Guille Suman [facility] 11-05-2023 08:00-0400 Mean blood pressure 82 mm[Hg] Guille Suman [facility] 11-05-2023 08:00-0400 Respiratory rate 14 /min Guille Suman [facility] 11-05-2023 08:00-0400 Systolic blood pressure 114 mm[Hg] Guille Suman [facility] 11-05-2023 07:30-0400 Diastolic blood pressure 76 mm[Hg] Guille Suman [facility] 11-05-2023 07:30-0400 Mean blood pressure 91 mm[Hg] Guille Suman [facility] 11-05-2023 07:30-0400 Systolic blood pressure 120 mm[Hg] Guille Suman [facility] 11-05-2023 07:11-0400 Hourly Rounding Guille Suman [facility] Comment on above: Result Comment: denies needs/concerns 11-05-2023 05:00-0400 Blood Pressure Location Guille Suman [facility] 11-05-2023 00:01-0400 Body temperature 98.42 [degF] Guille Suman [facility] 11-05-2023 00:01-0400 Heart rate 78 /min Guille Suman [facility] 2023 15:02-0400 Body height 160.02 cm TI Dean Work Phone: 2023 15:02-0400 Body temperature 98.1 [degF] JOSEPH-Lawrence Covarrubias Dean Work Phone: 2023 15:02-0400 Body weight 63.3 kg JOSEPH-Lawrence Dean Work Phone: 2023 15:02-0400 Diastolic blood pressure 77 mm[Hg] JOSEPH-Lawrence Dean Work Phone: 2023 15:02-0400 Heart rate 85 /min JOSEPH-Lawrence Dean Work Phone: 2023 15:02-0400 Respiratory rate 19 /min JOSEPH-Lawrence Dean Work Phone: 2023 15:02-0400 SaO2% (BldA) [Mass fraction] 100 % TI Dean Work Phone: 2023 15:02-0400 Systolic blood pressure 130 mm[Hg] JOSEPH-Lawrence Dean Work Phone: 2023 13:58-0400 Blood Pressure Location Suman Myles [facility] 2023 13:58-0400 Body temperature 98.6 [degF] Suman Myles [facility] 2023 13:58-0400 Diastolic blood pressure 70 mm[Hg] Suman Myles [facility] 2023 13:58-0400 Heart rate 101 /min Suman Myles [facility] 2023 13:58-0400 SaO2% (BldA) [Mass fraction] 100 % Suman Myles [facility] 2023 13:58-0400 Systolic blood pressure 136 mm[Hg] Suman Myles [facility] 11-01-2023 19:36-0400 Body temperature 98.6 [degF] Bruno Estefani [facility] 11-01-2023 19:36-0400 Diastolic blood pressure 83 mm[Hg] Bruno Estefani [facility] 11-01-2023 19:36-0400 Heart rate 93 /min Bruno Estefani [facility] 11-01-2023 19:36-0400 Respiratory rate 17 /min Bruno Estefani [facility] 11-01-2023 19:36-0400 SaO2% (BldA) [Mass fraction] 100 % Bruno Estefani [facility] 11-01-2023 19:36-0400 Systolic blood pressure 140 mm[Hg] Bruno Estefani [facility] 10-31-2023 12:44-0400 Body temperature 98.24 [degF] Justo Arias [facility] 10-31-2023 12:44-0400 Diastolic blood pressure 73 mm[Hg] Justo Ricoe [facility] 10-31-2023 12:44-0400 Heart rate 95 /min Justo Hugo [facility] 10-31-2023 12:44-0400 Respiratory rate 18 /min Justo Ricoe [facility] 10-31-2023 12:44-0400 SaO2% (BldA) [Mass fraction] 99 % Justo Ricoe [facility] 10-31-2023 12:44-0400 Systolic blood pressure 130 mm[Hg] Justo Hugo [facility] 10-30-2023 16:12-0400 Body temperature 98.24 [degF] [facility] 10-30-2023 16:12-0400 Diastolic blood pressure 96 mm[Hg] [facility] 10-30-2023 16:12-0400 Heart rate 76 /min [facility] 10-30-2023 16:12-0400 Respiratory rate 16 /min [facility] 10-30-2023 16:12-0400 SaO2% (BldA) [Mass fraction] 100 % [facility] 10-30-2023 16:12-0400 Systolic blood pressure 131 mm[Hg] [facility] 10-25-2023 13:42-0400 Body temperature 98.42 [degF] Darren Dami [facility] 10-25-2023 13:42-0400 Diastolic blood pressure 77 mm[Hg] Darren Dami [facility] 10-25-2023 13:42-0400 Heart rate 79 /min Darren Lomax [facility] 10-25-2023 13:42-0400 Respiratory rate 16 /min Darren Lomax [facility] 10-25-2023 13:42-0400 SaO2% (BldA) [Mass fraction] 100 % Darren Dami [facility] 10-25-2023 13:42-0400 Systolic blood pressure 119 mm[Hg] Darren Dami [facility] 10-21-2023 18:16-0400 Body temperature 98.24 [degF] Justo Arias [facility] 10-21-2023 18:16-0400 Diastolic blood pressure 66 mm[Hg] Justo Arias [facility] 10-21-2023 18:16-0400 Heart rate 64 /min Justo Arias [facility] 10-21-2023 18:16-0400 Respiratory rate 18 /min Justo Arias [facility] 10-21-2023 18:16-0400 SaO2% (BldA) [Mass fraction] 98 % Justo Arias [facility] 10-21-2023 18:16-0400 Systolic blood pressure 133 mm[Hg] Justo Arias [facility] 10-19-2023 12:56-0400 Body temperature 98.78 [degF] [facility] 10-19-2023 12:56-0400 Diastolic blood pressure 73 mm[Hg] [facility] 10-19-2023 12:56-0400 Heart rate 74 /min [facility] 10-19-2023 12:56-0400 Respiratory rate 18 /min [facility] 10-19-2023 12:56-0400 SaO2% (BldA) [Mass fraction] 94 % [facility] 10-19-2023 12:56-0400 Systolic blood pressure 125 mm[Hg] [facility] 10-17-2023 17:33-0400 Body temperature 97.7 [degF] Darren Lomax [facility] 10-17-2023 17:33-0400 Diastolic blood pressure 83 mm[Hg] Darren Lomax [facility] 10-17-2023 17:33-0400 Heart rate 75 /min Darren Lomax [facility] 10-17-2023 17:33-0400 Respiratory rate 18 /min Darren Lomax [facility] 10-17-2023 17:33-0400 SaO2% (BldA) [Mass fraction] 100 % Darren Lomax [facility] 10-17-2023 17:33-0400 Systolic blood pressure 126 mm[Hg] Darren Lomax [facility] 10-05-2023 19:24-0400 Body temperature 98.42 [degF] Bruno Estefani [facility] 10-05-2023 19:24-0400 Diastolic blood pressure 73 mm[Hg] Bruno Estefani [facility] 10-05-2023 19:24-0400 Heart rate 107 /min Bruno Estefani [facility] 10-05-2023 19:24-0400 Respiratory rate 18 /min Bruno Estefani [facility] 10-05-2023 19:24-0400 SaO2% (BldA) [Mass fraction] 98 % Bruno Estefani [facility] 10-05-2023 19:24-0400 Systolic blood pressure 116 mm[Hg] Bruno Estefani [facility] 10-02-2023 07:47-0400 Diastolic blood pressure 69 mm[Hg] Kaylinn Dokken [facility] 10-02-2023 07:47-0400 Heart rate 93 /min Kaylinn Dokken [facility] 10-02-2023 07:47-0400 Mean blood pressure 86 mm[Hg] Kaylinn Dokken [facility] 10-02-2023 07:47-0400 Respiratory rate 18 /min Kaylinn Dokken [facility] 10-02-2023 07:47-0400 SaO2% (BldA) [Mass fraction] 99 % Kaylinn Dokken [facility] 10-02-2023 07:47-0400 Systolic blood pressure 119 mm[Hg] Kaylinn Dokken [facility] 10-02-2023 06:59-0400 Diastolic blood pressure 70 mm[Hg] Kaylinn Dokken [facility] 10-02-2023 06:59-0400 Heart rate 81 /min Kaylinn Dokken [facility] 10-02-2023 06:59-0400 Mean blood pressure 85 mm[Hg] Kaylinn Dokken [facility] 10-02-2023 06:59-0400 Respiratory rate 16 /min Kaylinn Dokken [facility] 10-02-2023 06:59-0400 SaO2% (BldA) [Mass fraction] 97 % Kaylinn Dokken [facility] 10-02-2023 06:59-0400 Systolic blood pressure 114 mm[Hg] Kaylinn Dokken [facility] 10-02-2023 06:28-0400 Body temperature 98.06 [degF] Kaylinn Dokken [facility] 10-02-2023 06:28-0400 Diastolic blood pressure 72 mm[Hg] Kaylinn Dokken [facility] 10-02-2023 06:28-0400 Heart rate 98 /min Kaylinn Dokken [facility] 10-02-2023 06:28-0400 Respiratory rate 18 /min Vivian Ochoa [facility] 10-02-2023 06:28-0400 SaO2% (BldA) [Mass fraction] 99 % Vivian Ochoa [facility] 10-02-2023 06:28-0400 Systolic blood pressure 142 mm[Hg] Vivian Ochoa [facility] 09-27-2023 11:34-0400 Body height 160.02 cm PA-C Satish Dean Work Phone: 09-27-2023 11:34-0400 Body temperature 98 [degF] PA-C Satish eDan Work Phone: 09-27-2023 11:34-0400 Body weight 65 kg PA-C Satish Dean Work Phone: 09-27-2023 11:34-0400 Diastolic blood pressure 74 mm[Hg] PA-C Satish Dean Work Phone: 09-27-2023 11:34-0400 Heart rate 79 /min PA-C Satish Dean Work Phone: 09-27-2023 11:34-0400 Respiratory rate 20 /min PA-C Satish Dean Work Phone: 09-27-2023 11:34-0400 SaO2% (BldA) [Mass fraction] 100 % PA-C Satish Dean Work Phone: 09-27-2023 11:34-0400 Systolic blood pressure 133 mm[Hg] PA-C Satish Dean Work Phone: 09-27-2023 10:31-0400 Body temperature 98.6 [degF] Darren Lomax [facility] 09-27-2023 10:31-0400 Diastolic blood pressure 76 mm[Hg] Darren Lomax [facility] 09-27-2023 10:31-0400 Heart rate 80 /min Darren Lomax [facility] 09-27-2023 10:31-0400 Respiratory rate 16 /min Darren Dami [facility] 09-27-2023 10:31-0400 SaO2% (BldA) [Mass fraction] 100 % Darren Lomax [facility] 09-27-2023 10:31-0400 Systolic blood pressure 127 mm[Hg] Darren Lomax [facility] 09-26-2023 15:20-0400 Body temperature 98.06 [degF] Darren Lomax [facility] 09-26-2023 15:20-0400 Diastolic blood pressure 80 mm[Hg] Darren Lomax [facility] 09-26-2023 15:20-0400 Heart rate 78 /min Darren Lomax [facility] 09-26-2023 15:20-0400 Respiratory rate 18 /min Darren Lomax [facility] 09-26-2023 15:20-0400 SaO2% (BldA) [Mass fraction] 100 % Darren Lomax [facility] 09-26-2023 15:20-0400 Systolic blood pressure 137 mm[Hg] Darren Dami [facility] 09-24-2023 15:33-0400 Body temperature 98.24 [degF] Guille Will [facility] 09-24-2023 15:33-0400 Diastolic blood pressure 78 mm[Hg] Guille Suman [facility] 09-24-2023 15:33-0400 Heart rate 98 /min Guille Suman [facility] 09-24-2023 15:33-0400 Respiratory rate 18 /min Guille Suman [facility] 09-24-2023 15:33-0400 SaO2% (BldA) [Mass fraction] 100 % Guille Suman [facility] 09-24-2023 15:33-0400 Systolic blood pressure 116 mm[Hg] Guille Suman [facility] 09-20-2023 15:30-0400 Diastolic blood pressure 75 mm[Hg] Justo Hugo [facility] 09-20-2023 15:30-0400 Heart rate 98 /min Justo Hugo [facility] 09-20-2023 15:30-0400 Mean blood pressure 91 mm[Hg] Justo Hugo [facility] 09-20-2023 15:30-0400 Respiratory rate 18 /min Justo Hugo [facility] 09-20-2023 15:30-0400 SaO2% (BldA) [Mass fraction] 100 % Justo Hugo [facility] 09-20-2023 15:30-0400 Systolic blood pressure 124 mm[Hg] Justo Hugo [facility] 09-20-2023 14:30-0400 Diastolic blood pressure 73 mm[Hg] Justo Hugo [facility] 09-20-2023 14:30-0400 Heart rate 80 /min Justo Hugo [facility] 09-20-2023 14:30-0400 Mean blood pressure 93 mm[Hg] Justo Hugo [facility] 09-20-2023 14:30-0400 Respiratory rate 18 /min Justo Hugo [facility] 09-20-2023 14:30-0400 SaO2% (BldA) [Mass fraction] 100 % Justo Hugo [facility] 09-20-2023 14:30-0400 Systolic blood pressure 132 mm[Hg] Justo Hugo [facility] 09-20-2023 13:30-0400 Diastolic blood pressure 67 mm[Hg] Justo Hugo [facility] 09-20-2023 13:30-0400 Heart rate 76 /min Justo Hugo [facility] 09-20-2023 13:30-0400 Mean blood pressure 82 mm[Hg] Justo Hugo [facility] 09-20-2023 13:30-0400 Respiratory rate 18 /min Justo Hugo [facility] 09-20-2023 13:30-0400 SaO2% (BldA) [Mass fraction] 100 % Justo Hugo [facility] 09-20-2023 13:30-0400 Systolic blood pressure 112 mm[Hg] Justo Hugo [facility] 09-20-2023 12:33-0400 Body temperature 99.68 [degF] Justo Hugo [facility] 09-20-2023 12:33-0400 Heart rate 81 /min Justo Hugo [facility] 05-22-2024 05:08-0400 Diastolic blood pressure 65 mm[Hg] Kaylinn Dokken [facility] 09-17-2023 05:08-0400 Heart rate 94 /min Kaylinn Dokken [facility] 09-17-2023 05:08-0400 Mean blood pressure 79 mm[Hg] Kaylinn Dokken [facility] 09-17-2023 05:08-0400 Respiratory rate 17 /min Kaylinn Dokken [facility] 09-17-2023 05:08-0400 SaO2% (BldA) [Mass fraction] 99 % Kaylinn Dokken [facility] 09-17-2023 05:08-0400 Systolic blood pressure 108 mm[Hg] Kaylinn Dokken [facility] 09-17-2023 04:31-0400 Body temperature 98.42 [degF] Kaylinn Dokken [facility] 09-17-2023 04:31-0400 Diastolic blood pressure 76 mm[Hg] Kaylinn Dokken [facility] 09-17-2023 04:31-0400 Heart rate 94 /min Kaylinn Dokken [facility] 09-17-2023 04:31-0400 Respiratory rate 16 /min Kaylinn Dokken [facility] 09-17-2023 04:31-0400 SaO2% (BldA) [Mass fraction] 99 % Kaylinn Dokken [facility] 09-17-2023 04:31-0400 Systolic blood pressure 134 mm[Hg] Kaylinn Dokken [facility] 09-15-2023 08:39-0400 Blood Pressure Location Fatoumata Gooden [facility] 09-15-2023 08:39-0400 Diastolic blood pressure 76 mm[Hg] Fatoumata Gooden [facility] 09-15-2023 08:39-0400 Heart rate 106 /min Fatoumata Gooden [facility] 09-15-2023 08:39-0400 SaO2% (BldA) [Mass fraction] 99 % Fatoumata Gooden [facility] 09-15-2023 08:39-0400 Systolic blood pressure 110 mm[Hg] Fatoumata Gooden [facility] 09-14-2023 11:08-0400 Body temperature 98.24 [degF] Darren Lomax [facility] 09-14-2023 11:08-0400 Diastolic blood pressure 80 mm[Hg] Darren Dami [facility] 09-14-2023 11:08-0400 Heart rate 129 /min Darren Dami [facility] 09-14-2023 11:08-0400 Respiratory rate 16 /min Darren Dami [facility] 09-14-2023 11:08-0400 SaO2% (BldA) [Mass fraction] 98 % Darren Dami [facility] 09-14-2023 11:08-0400 Systolic blood pressure 120 mm[Hg] Darren Dami [facility] 09-04-2023 12:01-0400 Body height 160.02 cm TI Dean Work Phone: 09-04-2023 12:01-0400 Body temperature 98 [degF] PA-C Satish Dean Work Phone: 09-04-2023 12:01-0400 Body weight 66.7 kg PA-C Satish Dean Work Phone: 09-04-2023 12:01-0400 Diastolic blood pressure 70 mm[Hg] PA-C Satish Dean Work Phone: 09-04-2023 12:01-0400 Heart rate 72 /min PA-C Satish Dean Work Phone: 09-04-2023 12:01-0400 Respiratory rate 17 /min PA-C Satish Dean Work Phone: 09-04-2023 12:01-0400 SaO2% (BldA) [Mass fraction] 100 % PA-C Satishsheela Dean Work Phone: 09-04-2023 12:01-0400 Systolic blood pressure 119 mm[Hg] PA-C Satish Dean Work Phone: 08-20-2023 15:04-0400 Body temperature 98.5 [degF] PA-C Satishsheela Dean Work Phone: 08-20-2023 15:04-0400 Diastolic blood pressure 70 mm[Hg] PA-C Satish Dean Work Phone: 08-20-2023 15:04-0400 Heart rate 72 /min PA-C Satish Dean Work Phone: 08-20-2023 15:04-0400 Respiratory rate 18 /min PA-C Satish Dean Work Phone: 08-20-2023 15:04-0400 SaO2% (BldA) [Mass fraction] 100 % PA-C Satish Dean Work Phone: 08-20-2023 15:04-0400 Systolic blood pressure 119 mm[Hg] JOSEPHPaulo Dean Work Phone: 08-20-2023 12:52-0400 Body height 160.02 cm JOSEPHPaulo Dean Work Phone: 08-20-2023 12:52-0400 Body weight 64.3 kg JOSEPHPaulo Dean Work Phone: 08-18-2023 10:29-0400 Body temperature 98.42 [degF] Justo Arias [facility] 08-18-2023 10:29-0400 Diastolic blood pressure 69 mm[Hg] Justo Arias [facility] 08-18-2023 10:29-0400 Heart rate 82 /min Justo Arias [facility] 08-18-2023 10:29-0400 Respiratory rate 18 /min Justo Arias [facility] 08-18-2023 10:29-0400 SaO2% (BldA) [Mass fraction] 99 % Justo Arias [facility] 08-18-2023 10:29-0400 Systolic blood pressure 119 mm[Hg] Justo Arias [facility] 08-14-2023 16:56-0400 Diastolic blood pressure 81 mm[Hg] [facility] 08-14-2023 16:56-0400 Heart rate 89 /min [facility] 08-14-2023 16:56-0400 Mean blood pressure 101 mm[Hg] [facility] 08-14-2023 16:56-0400 Respiratory rate 15 /min [facility] 08-14-2023 16:56-0400 SaO2% (BldA) [Mass fraction] 98 % [facility] 08-14-2023 16:56-0400 Systolic blood pressure 141 mm[Hg] [facility] 08-14-2023 14:42-0400 Body temperature 98.24 [degF] [facility] 08-14-2023 14:42-0400 Diastolic blood pressure 81 mm[Hg] [facility] 08-14-2023 14:42-0400 Heart rate 84 /min [facility] 08-14-2023 14:42-0400 Respiratory rate 18 /min [facility] 08-14-2023 14:42-0400 SaO2% (BldA) [Mass fraction] 98 % [facility] 08-14-2023 14:42-0400 Systolic blood pressure 146 mm[Hg] [facility] 08-10-2023 11:36-0400 Body temperature 98.6 [degF] [facility] 08-10-2023 11:36-0400 Diastolic blood pressure 108 mm[Hg] [facility] 08-10-2023 11:36-0400 Heart rate 115 /min [facility] 08-10-2023 11:36-0400 Respiratory rate 16 /min [facility] 08-10-2023 11:36-0400 SaO2% (BldA) [Mass fraction] 100 % [facility] 08-10-2023 11:36-0400 Systolic blood pressure 140 mm[Hg] [facility] 08-05-2023 18:10-0400 Diastolic blood pressure 73 mm[Hg] TI Dean Work Phone: 08-05-2023 18:10-0400 Heart rate 87 /min TI Dean Work Phone: 08-05-2023 18:10-0400 Respiratory rate 18 /min TI Covarrubias Dean Work Phone: 08-05-2023 18:10-0400 SaO2% (BldA) [Mass fraction] 98 % TI Covarrubias Dean Work Phone: 08-05-2023 18:10-0400 Systolic blood pressure 130 mm[Hg] TI Covarrubias Dean Work Phone: 08-05-2023 16:00-0400 Body height 160.02 cm JOSEPHMairaLawrence Covarrubias Dean Work Phone: 08-05-2023 16:00-0400 Body temperature 98.1 [degF] TI Dean Work Phone: 08-05-2023 16:00-0400 Body weight 65.7 kg TI Dean Work Phone: 07-30-2023 13:07-0400 Blood Pressure Location LANETTE LUI [facility] 07-30-2023 13:07-0400 Body temperature 98.42 [degF] LANETTE LUI [facility] 07-30-2023 13:07-0400 Diastolic blood pressure 82 mm[Hg] LANETTE LUI [facility] 07-30-2023 13:07-0400 Heart rate 91 /min LANETTE LUI [facility] 07-30-2023 13:07-0400 SaO2% (BldA) [Mass fraction] 98 % LANETTE LUI [facility] 07-30-2023 13:07-0400 Systolic blood pressure 120 mm[Hg] LANETTE LUI [facility] 07-26-2023 12:12-0400 Diastolic blood pressure 69 mm[Hg] Darren Dami [facility] 07-26-2023 12:12-0400 Heart rate 93 /min Darren Dami [facility] 07-26-2023 12:12-0400 Mean blood pressure 89 mm[Hg] Darren Dami [facility] 07-26-2023 12:12-0400 Respiratory rate 14 /min Darren Dami [facility] 07-26-2023 12:12-0400 SaO2% (BldA) [Mass fraction] 100 % Darren Dami [facility] 07-26-2023 12:12-0400 Systolic blood pressure 128 mm[Hg] Darren Dami [facility] 07-26-2023 11:15-0400 Diastolic blood pressure 60 mm[Hg] Darren Dami [facility] 07-26-2023 11:15-0400 Heart rate 89 /min Darren Dami [facility] 07-26-2023 11:15-0400 Mean blood pressure 80 mm[Hg] Darren Dami [facility] 07-26-2023 11:15-0400 Respiratory rate 16 /min Darren Dami [facility] 07-26-2023 11:15-0400 SaO2% (BldA) [Mass fraction] 100 % Darren Dami [facility] 07-26-2023 11:15-0400 Systolic blood pressure 120 mm[Hg] Darren Dami [facility] 07-26-2023 10:30-0400 Diastolic blood pressure 73 mm[Hg] Darren Lomax [facility] 07-26-2023 10:30-0400 Heart rate 83 /min Darren Lomax [facility] 07-26-2023 10:30-0400 Mean blood pressure 87 mm[Hg] Darren Dami [facility] 07-26-2023 10:30-0400 Respiratory rate 20 /min Darren Lomax [facility] 07-26-2023 10:30-0400 SaO2% (BldA) [Mass fraction] 100 % Darrenhao Lomax [facility] 07-26-2023 10:30-0400 Systolic blood pressure 114 mm[Hg] Darren Lomax [facility] 07-26-2023 09:40-0400 Body temperature 98.78 [degF] Darren Lomax [facility] 07-26-2023 09:40-0400 Heart rate 85 /min Darren Lomax [facility] 07-26-2023 09:40-0400 Respiratory rate 16 /min Darrenhao Lomax [facility] 07-19-2023 10:59-0400 Diastolic blood pressure 73 mm[Hg] [facility] 07-19-2023 10:59-0400 Heart rate 102 /min [facility] 07-19-2023 10:59-0400 Mean blood pressure 86 mm[Hg] [facility] 07-19-2023 10:59-0400 Respiratory rate 16 /min [facility] 07-19-2023 10:59-0400 SaO2% (BldA) [Mass fraction] 100 % [facility] 07-19-2023 10:59-0400 Systolic blood pressure 112 mm[Hg] [facility] 07-19-2023 10:32-0400 SaO2% (BldA) [Mass fraction] 100 % [facility] 07-19-2023 09:30-0400 Body temperature 98.06 [degF] [facility] 07-19-2023 09:30-0400 Diastolic blood pressure 75 mm[Hg] [facility] 07-19-2023 09:30-0400 Heart rate 114 /min [facility] 07-19-2023 09:30-0400 Respiratory rate 16 /min [facility] 07-19-2023 09:30-0400 SaO2% (BldA) [Mass fraction] 100 % [facility] 07-19-2023 09:30-0400 Systolic blood pressure 130 mm[Hg] [facility] 07-12-2023 19:49-0400 Diastolic blood pressure 76 mm[Hg] Justo Ricoe [facility] 07-12-2023 19:49-0400 Heart rate 112 /min Justo Ricoe [facility] 07-12-2023 19:49-0400 Mean blood pressure 95 mm[Hg] Justo Ricoe [facility] 07-12-2023 19:49-0400 Respiratory rate 20 /min Justo Ricoe [facility] 07-12-2023 19:49-0400 SaO2% (BldA) [Mass fraction] 98 % Justo Ricoe [facility] 07-12-2023 19:49-0400 Systolic blood pressure 132 mm[Hg] Justo Ricoe [facility] 07-12-2023 19:29-0400 Diastolic blood pressure 65 mm[Hg] Justo Arias [facility] 07-12-2023 19:29-0400 Heart rate 99 /min Justo Ricoe [facility] 07-12-2023 19:29-0400 Mean blood pressure 81 mm[Hg] Justo Ricoe [facility] 07-12-2023 19:29-0400 Respiratory rate 8 /min Justo Arias [facility] 07-12-2023 19:29-0400 SaO2% (BldA) [Mass fraction] 99 % Justo Ricoe [facility] 07-12-2023 19:29-0400 Systolic blood pressure 113 mm[Hg] Justo Ricoe [facility] 07-12-2023 17:38-0400 Body temperature 98.6 [degF] Justo Ricoe [facility] 07-12-2023 17:38-0400 Diastolic blood pressure 72 mm[Hg] Justo Arias [facility] 07-12-2023 17:38-0400 Heart rate 125 /min Justo Arias [facility] 07-12-2023 17:38-0400 Respiratory rate 16 /min Justo Ricoe [facility] 07-12-2023 17:38-0400 SaO2% (BldA) [Mass fraction] 98 % Justo Ricoe [facility] 07-12-2023 17:38-0400 Systolic blood pressure 129 mm[Hg] Justo Ricoe [facility] 07-09-2023 16:21-0400 Blood Pressure Location Amos Castellon [facility] 07-09-2023 16:21-0400 Body temperature 98.42 [degF] Amos Castellon [facility] 07-09-2023 16:21-0400 Diastolic blood pressure 74 mm[Hg] Amos Castellon [facility] 07-09-2023 16:21-0400 Heart rate 86 /min Amos Castellon [facility] 07-09-2023 16:21-0400 SaO2% (BldA) [Mass fraction] 99 % Amos Castellon [facility] 07-09-2023 16:21-0400 Systolic blood pressure 122 mm[Hg] Amos Castellon [facility] 07-07-2023 13:05-0400 Diastolic blood pressure 68 mm[Hg] Justo Arias [facility] 07-07-2023 13:05-0400 Heart rate 84 /min Justo Arias [facility] 07-07-2023 13:05-0400 Mean blood pressure 92 mm[Hg] Justo Ricoe [facility] 07-07-2023 13:05-0400 Respiratory rate 16 /min Justo Ricoe [facility] 07-07-2023 13:05-0400 SaO2% (BldA) [Mass fraction] 98 % Justo Ricoe [facility] 07-07-2023 13:05-0400 Systolic blood pressure 139 mm[Hg] Justo Hugo [facility] 07-07-2023 12:02-0400 Heart rate 80 /min Justo rAias [facility] 07-07-2023 11:09-0400 Body temperature 99.32 [degF] Justo Arias [facility] 07-07-2023 11:09-0400 Diastolic blood pressure 60 mm[Hg] Justo Arias [facility] 07-07-2023 11:09-0400 Heart rate 106 /min Justo Arias [facility] 07-07-2023 11:09-0400 Respiratory rate 16 /min Justo Arias [facility] 07-07-2023 11:09-0400 SaO2% (BldA) [Mass fraction] 100 % Justo Arias [facility] 07-07-2023 11:09-0400 Systolic blood pressure 129 mm[Hg] Justo Arias [facility] 07-07-2023 10:04-0400 Blood Pressure Location LANETTE AdTheorent [facility] 07-07-2023 10:04-0400 Body temperature 98.24 [degF] LANETTE LUI [facility] 07-07-2023 10:04-0400 Diastolic blood pressure 73 mm[Hg] LANETTE LUI [facility] 07-07-2023 10:04-0400 Heart rate 88 /min LANETTE LUI [facility] 07-07-2023 10:04-0400 SaO2% (BldA) [Mass fraction] 99 % LANETTE LUI [facility] 07-07-2023 10:04-0400 Systolic blood pressure 117 mm[Hg] LANETTE LUI [facility] 06-29-2023 08:20-0500 Diastolic blood pressure 65 mm[Hg] Bruno Estefani [facility] 06-29-2023 08:20-0500 Heart rate 106 /min Bruno Estefani [facility] 06-29-2023 08:20-0500 Mean blood pressure 79 mm[Hg] Bruno Estefani [facility] 06-29-2023 08:20-0500 Respiratory rate 16 /min Bruno Estefani [facility] 06-29-2023 08:20-0500 SaO2% (BldA) [Mass fraction] 98 % Bruno Estefani [facility] 06-29-2023 08:20-0500 Systolic blood pressure 106 mm[Hg] Bruno Estefani [facility] 06-29-2023 07:16-0500 Diastolic blood pressure 67 mm[Hg] Bruno Estefani [facility] 06-29-2023 07:16-0500 Heart rate 91 /min Bruno Estefani [facility] 06-29-2023 07:16-0500 Mean blood pressure 80 mm[Hg] Bruno Estefani [facility] 06-29-2023 07:16-0500 Respiratory rate 15 /min Bruno Estefani [facility] 06-29-2023 07:16-0500 SaO2% (BldA) [Mass fraction] 98 % Bruno Estefani [facility] 06-29-2023 07:16-0500 Systolic blood pressure 106 mm[Hg] Bruno Estefani [facility] 06-29-2023 06:18-0500 Body temperature 98.78 [degF] Bruno Jara [facility] 06-29-2023 06:18-0500 Diastolic blood pressure 66 mm[Hg] Bruno Wahlner [facility] 06-29-2023 06:18-0500 Heart rate 104 /min Bruno Wahlner [facility] 06-29-2023 06:18-0500 Respiratory rate 20 /min Bruno Estefani [facility] 06-29-2023 06:18-0500 SaO2% (BldA) [Mass fraction] 100 % Bruno Jara [facility] 06-29-2023 06:18-0500 Systolic blood pressure 114 mm[Hg] Bruno Jara [facility] 06-14-2023 08:51-0500 Body temperature 98.24 [degF] Justo Arias [facility] 06-14-2023 08:51-0500 Diastolic blood pressure 65 mm[Hg] Justo Hugo [facility] 06-14-2023 08:51-0500 Heart rate 84 /min Justo Hugo [facility] 06-14-2023 08:51-0500 Respiratory rate 16 /min Justo Hugo [facility] 06-14-2023 08:51-0500 SaO2% (BldA) [Mass fraction] 100 % Justo Hugo [facility] 06-14-2023 08:51-0500 Systolic blood pressure 123 mm[Hg] Justo Hugo [facility] 05-31-2023 11:17-0500 Diastolic blood pressure 74 mm[Hg] [facility] 05-31-2023 11:17-0500 Heart rate 104 /min [facility] 05-31-2023 11:17-0500 Mean blood pressure 90 mm[Hg] [facility] 05-31-2023 11:17-0500 Respiratory rate 16 /min [facility] 05-31-2023 11:17-0500 SaO2% (BldA) [Mass fraction] 100 % [facility] 05-31-2023 11:17-0500 Systolic blood pressure 123 mm[Hg] [facility] 05-31-2023 10:59-0500 Hourly Rounding [facility] 05-31-2023 10:59-0500 Promise to Return [facility] 05-31-2023 10:59-0500 SaO2% (BldA) [Mass fraction] 99 % [facility] 05-31-2023 10:30-0500 Diastolic blood pressure 69 mm[Hg] [facility] 05-31-2023 10:30-0500 Heart rate 123 /min [facility] 05-31-2023 10:30-0500 Mean blood pressure 84 mm[Hg] [facility] 05-31-2023 10:30-0500 Respiratory rate 16 /min [facility] 05-31-2023 10:30-0500 SaO2% (BldA) [Mass fraction] 98 % [facility] 05-31-2023 10:30-0500 Systolic blood pressure 113 mm[Hg] [facility] 05-31-2023 09:56-0500 Hourly Rounding [facility] 05-31-2023 09:56-0500 Promise to Return [facility] 05-31-2023 09:30-0500 Diastolic blood pressure 71 mm[Hg] [facility] 05-31-2023 09:30-0500 Heart rate 110 /min [facility] 05-31-2023 09:30-0500 Mean blood pressure 89 mm[Hg] [facility] 05-31-2023 09:30-0500 Respiratory rate 16 /min [facility] 05-31-2023 09:30-0500 Systolic blood pressure 125 mm[Hg] [facility] 05-31-2023 08:10-0500 Body temperature 98.06 [degF] [facility] 05-31-2023 08:10-0500 Heart rate 97 /min [facility] 05-11-2023 11:30-0500 Blood Pressure Location [facility] 05-11-2023 11:30-0500 Body temperature 98.42 [degF] [facility] 05-11-2023 11:30-0500 Diastolic blood pressure 68 mm[Hg] [facility] 05-11-2023 11:30-0500 Heart rate 103 /min [facility] 05-11-2023 11:30-0500 Respiratory rate 18 /min [facility] 05-11-2023 11:30-0500 SaO2% (BldA) [Mass fraction] 99 % [facility] 05-11-2023 11:30-0500 Systolic blood pressure 126 mm[Hg] [facility] 05-03-2023 12:20-0500 Blood Pressure Location Isaac Stephen [facility] 05-03-2023 12:20-0500 Body temperature 98.06 [degF] Isaac Stephen [facility] 05-03-2023 12:20-0500 Diastolic blood pressure 70 mm[Hg] Isaac Stephen [facility] 05-03-2023 12:20-0500 Heart rate 110 /min Isaac Arriagaons [facility] 05-03-2023 12:20-0500 SaO2% (BldA) [Mass fraction] 98 % Isaac Stephen [facility] 05-03-2023 12:20-0500 Systolic blood pressure 114 mm[Hg] Isaac Stephen [facility] 04-15-2023 11:34-0500 Body temperature 98.24 [degF] Justo Arias [facility] 04-15-2023 11:34-0500 Diastolic blood pressure 78 mm[Hg] Justo Arias [facility] 04-15-2023 11:34-0500 Heart rate 98 /min Justo Arias [facility] 04-15-2023 11:34-0500 Respiratory rate 18 /min Justo Arias [facility] 04-15-2023 11:34-0500 SaO2% (BldA) [Mass fraction] 97 % Justo Hugo [facility] 04-15-2023 11:34-0500 Systolic blood pressure 119 mm[Hg] Justo Hugo [facility] 03-31-2023 11:24-0500 Body height 157.5 cm Regi Hunter PA-C Work Phone: [facility] 03-31-2023 11:24-0500 Body mass index (BMI) [Ratio] 23.81 kg/m2 Regi Hunter PA-C Work Phone: [facility] 03-31-2023 11:24-0500 Body weight 59.06 kg Regi Hunter PA-C Work Phone: [facility] 03-30-2023 15:41-0500 Body temperature 98.6 [degF] Guille Will [facility] 03-30-2023 15:41-0500 Diastolic blood pressure 90 mm[Hg] Guille Will [facility] 03-30-2023 15:41-0500 Heart rate 85 /min Guille Will [facility] 03-30-2023 15:41-0500 Respiratory rate 20 /min Giulle Will [facility] 03-30-2023 15:41-0500 SaO2% (BldA) [Mass fraction] 100 % Guille Will [facility] 03-30-2023 15:41-0500 Systolic blood pressure 147 mm[Hg] Guille Will [facility] 03-24-2023 11:45-0500 Body temperature 97.7 [degF] Thiago Cuellar MD Work Phone: [facility] 03-24-2023 11:45-0500 Diastolic blood pressure 59 mm[Hg] Thiago Cuellar MD Work Phone: [facility] 03-24-2023 11:45-0500 Heart rate 81 /min Thiago Cuellar MD Work Phone: [facility] 03-24-2023 11:45-0500 Respiratory rate 20 /min Thiago Cuellar MD Work Phone: [facility] 03-24-2023 11:45-0500 SaO2% (BldA) [Mass fraction] 97 % Thiago Cuellar MD Work Phone: [facility] 03-24-2023 11:45-0500 Systolic blood pressure 120 mm[Hg] Thiago Cuellar MD Work Phone: [facility] 03-24-2023 07:14-0500 Body height 157.5 cm Thiago Cuellar MD Work Phone: [facility] 03-24-2023 07:14-0500 Body mass index (BMI) [Ratio] 23.59 kg/m2 Thiago Cuellar MD Work Phone: [facility] 03-24-2023 07:14-0500 Body weight 58.5 kg Thiago Cuellar MD Work Phone: [facility] 03-11-2023 17:03-0500 Blood Pressure Location Amos Castellon [facility] 03-11-2023 17:03-0500 Body temperature 98.96 [degF] Amos Castellon [facility] 03-11-2023 17:03-0500 Diastolic blood pressure 68 mm[Hg] Amos Castellon [facility] 03-11-2023 17:03-0500 Heart rate 82 /min Amos Castellon [facility] 03-11-2023 17:03-0500 SaO2% (BldA) [Mass fraction] 98 % Amos Castellon [facility] 03-11-2023 17:03-0500 Systolic blood pressure 112 mm[Hg] Amos Castellon [facility] 02-06-2023 11:20-0400 Body height 157.5 cm Thiago Cuellar MD Work Phone: [facility] 02-06-2023 11:20-0400 Body mass index (BMI) [Ratio] 24.09 kg/m2 Tihago Cuellar MD Work Phone: [facility] 02-06-2023 11:20-0400 Body weight 59.74 kg Thiago Cuellar MD Work Phone: [facility] 01-24-2023 09:25-0400 Blood Pressure Location Rojelio Spasic [facility] 01-24-2023 09:25-0400 Body temperature 98.6 [degF] Rojelio Spasic [facility] 01-24-2023 09:25-0400 Diastolic blood pressure 70 mm[Hg] Rojelio Spasic [facility] 01-24-2023 09:25-0400 Heart rate 83 /min Rojelio Spasic [facility] 01-24-2023 09:25-0400 SaO2% (BldA) [Mass fraction] 99 % Rojelio Spasic [facility] 01-24-2023 09:25-0400 Systolic blood pressure 122 mm[Hg] Rojelio Spasic [facility] 01-15-2023 13:36-0400 Blood Pressure Location Rojelio Spasic [facility] 01-15-2023 13:36-0400 Body temperature 98.6 [degF] Rojelio Spasic [facility] 01-15-2023 13:36-0400 Diastolic blood pressure 76 mm[Hg] Rojelio Spasic [facility] 09-20-2023 13:36-0400 Heart rate 71 /min Rojelio Spasic [facility] 01-15-2023 13:36-0400 SaO2% (BldA) [Mass fraction] 98 % Rojelio Spasic [facility] 01-15-2023 13:36-0400 Systolic blood pressure 122 mm[Hg] Rojelio Morelossic [facility] 11-09-2022 14:14-0400 Blood Pressure Location Amos Castellon [facility] 11-09-2022 14:14-0400 Body temperature 98.6 [degF] Amos Castellon [facility] 11-09-2022 14:14-0400 Diastolic blood pressure 70 mm[Hg] Amos Castellon [facility] 11-09-2022 14:14-0400 Heart rate 70 /min Amos Castellon [facility] 11-09-2022 14:14-0400 SaO2% (BldA) [Mass fraction] 98 % Amos Castellon [facility] 11-09-2022 14:14-0400 Systolic blood pressure 118 mm[Hg] Amos Castellon [facility] 07-03-2022 08:35-0500 Diastolic blood pressure 88 mm[Hg] [facility] 07-03-2022 08:35-0500 Heart rate 95 /min [facility] 07-03-2022 08:35-0500 Respiratory rate 19 /min [facility] 07-03-2022 08:35-0500 SaO2% (BldA) [Mass fraction] 100 % [facility] 07-03-2022 08:35-0500 Systolic blood pressure 145 mm[Hg] [facility] 06-26-2022 14:19-0500 Blood Pressure Location [facility] 06-26-2022 14:19-0500 Body temperature 98.42 [degF] [facility] 06-26-2022 14:19-0500 Diastolic blood pressure 66 mm[Hg] [facility] 06-26-2022 14:19-0500 Heart rate 107 /min [facility] 06-26-2022 14:19-0500 SaO2% (BldA) [Mass fraction] 98 % [facility] 06-26-2022 14:19-0500 Systolic blood pressure 118 mm[Hg] [facility] 09-14-2021 20:00-0400 Body temperature 98.42 [degF] Darren Lomax [facility] 09-14-2021 20:00-0400 Diastolic blood pressure 64 mm[Hg] Darren Lomax [facility] 09-14-2021 20:00-0400 Heart rate 85 /min Darren Lomax [facility] 09-14-2021 20:00-0400 Mean blood pressure 79 mm[Hg] Darren Lomax [facility] 09-14-2021 20:00-0400 Respiratory rate 17 /min Darren Lomax [facility] 09-14-2021 20:00-0400 Systolic blood pressure 108 mm[Hg] Darren Lomax [facility] 09-14-2021 19:00-0400 Diastolic blood pressure 60 mm[Hg] Darren Lomax [facility] 09-14-2021 19:00-0400 Mean blood pressure 77 mm[Hg] Darren Dami [facility] 09-14-2021 19:00-0400 SaO2% (BldA) [Mass fraction] 99 % Darren Dami [facility] 09-14-2021 19:00-0400 Systolic blood pressure 112 mm[Hg] Darren Dami [facility] 09-14-2021 18:57-0400 SaO2% (BldA) [Mass fraction] 100 % Darren Dami [facility] 09-14-2021 18:56-0400 Hourly Rounding Darren Dami [facility] 09-14-2021 18:56-0400 Promise to Return Darren Dami [facility] 09-14-2021 18:30-0400 Diastolic blood pressure 55 mm[Hg] Darren Dami [facility] 09-14-2021 18:30-0400 Heart rate 79 /min Darren Dami [facility] 09-14-2021 18:30-0400 Mean blood pressure 73 mm[Hg] Darren Dami [facility] 09-14-2021 18:30-0400 Respiratory rate 16 /min Darren Dami [facility] 09-14-2021 18:30-0400 Systolic blood pressure 110 mm[Hg] Darren Dami [facility] 09-14-2021 17:39-0400 Body temperature 98.6 [degF] Darren Dami [facility] 09-14-2021 17:39-0400 Heart rate 93 /min Darren Dami [facility] 09-14-2021 17:39-0400 Respiratory rate 16 /min Darren Lomax [facility] 07-20-2021 11:33-0400 Body temperature 97 [degF] Whitney Barrera MD Work Phone: [facility] 07-20-2021 11:33-0400 Diastolic blood pressure 66 mm[Hg] Whitney Barrera MD Work Phone: [facility] 07-20-2021 11:33-0400 Heart rate 91 /min Whitney Barrera MD Work Phone: [facility] 07-20-2021 11:33-0400 Respiratory rate 18 /min Whitney Barrera MD Work Phone: [facility] 07-20-2021 11:33-0400 SaO2% (BldA) [Mass fraction] 97 % Whitney Barrera MD Work Phone: [facility] 07-20-2021 11:33-0400 Systolic blood pressure 98 mm[Hg] Whitney Barrera MD Work Phone: [facility] 07-19-2021 02:24-0400 Body height 157.5 cm Whitney Barrera MD Work Phone: [facility] 07-19-2021 02:24-0400 Body mass index (BMI) [Ratio] 28.17 kg/m2 Whitney Barrera MD Work Phone: [facility] 07-19-2021 02:24-0400 Body weight 69.85 kg Whitney Barrera MD Work Phone: [facility] Encounters Encounter Date Encounter Type Care Provider Facility Start: 11-29-2023 End: 11-29-2023 Emergency department patient visit Bruno Jara [facility] Start: 11-26-2023 End: 11-26-2023 Emergency department patient visit Justo Arias [facility] Start: 11-24-2023 End: 11-24-2023 ambulatory Ivana Bennett [facility] Start: 11-24-2023 End: 11-24-2023 Patient encounter procedure Ivana Bennett [facility] Start: 11-24-2023 End: 11-24-2023 Emergency department patient visit Justo Arias [facility] Start: 11-24-2023 End: 11-24-2023 ambulatory Fatoumata PatienceVinh Gooden [facility] Start: 11-24-2023 End: 11-24-2023 Patient encounter [facility]ience[facility] Gooden [facility] Start: 11-06-2023 ambulatory MOLDER MEAT FLORENTIN MORENO Fa cility:[facility] Start: 11-05-2023 ambulatory Fatoumata Gooden Facility: [facility] Start: 11-04-2023 End: 11-05-2023 Emergency department patient visit Guille Will [facility] Start: 11-03-2023 End: 11-04-2023 Pre-admission assessment Fatoumata Gooden [facility] Start: 2023 End: 2023 Emergency department patient visit TI Dean Work Phone: [facility] Work Phone: Start: 2023 End: 2023 ambulatory Suman Myles Facility:[facility] Start: 2023 End: 2023 Patient encounter procedure Suman Myles [facility] Start: 11-01-2023 End: 11-01-2023 Emergency department patient visit Bruno Jara [facility] Start: 10-31-2023 End: 10-31-2023 Emergency department patient visit Justo Arias [facility] Start: 10-30-2023 End: 10-30-2023 Emergency department patient visit Mary Jane Palm [facility] Start: 10-27-2023 End: 11-28-2023 Pre-admission assessment Cristóbal Granados [facility] Start: 10-25-2023 End: 10-25-2023 Emergency department patient visit Darren Lomax [facility] Start: 10-21-2023 End: 10-21-2023 Emergency department patient visit Justo Arias [facility] Start: 10-19-2023 End: 10-19-2023 [facility] Start: 10-17-2023 End: 10-17-2023 Emergency department patient visit Darren Lomax [facility] Start: 10-17-2023 End: 10-17-2023 ambulatory LANETTE LUI Facility:[facility] Start: 10-17-2023 End: 10-17-2023 Patient encounter procedure LANETTE LUI [facility] Start: 10-05-2023 End: 10-05-2023 Emergency department patient visit Bruno Jara [place] Start: 10-02-2023 End: 10-02-2023 Emergency department patient visit Vivian Ochoa [facility] Start: 09-27-2023 End: 09-27-2023 Emergency department [facility] Start: 09-26-2023 End: 09-26-2023 Emergency department patient visit Darren Lomax [facility] Start: 09-24-2023 Emergency department patient visit Guille Will [facility] Start: 09-24-2023 End: 09-24-2023 Emergency department patient visit Guille Will [facility] Start: 09-20-2023 End: 09-20-2023 Emergency department patient visit Justo Arias [facility] Start: 09-20-2023 End: 09-20-2023 Emergency department patient visit Justo Arias [facility] Start: 09-17-2023 End: 09-17-2023 Emergency department patient visit DO Vivian Ochoa [facility] Start: 09-17-2023 End: 09-17-2023 Emergency department patient visit Vivian Ochoa [facility] Start: 09-15-2023 End: 09-16-2023 ambulatory XXXX NONE [place] Start: 09-15-2023 End: 09-15-2023 Patient encounter procedure Fatoumata Gooden [facility] Start: 09-14-2023 End: 09-14-2023 Emergency department patient visit Darren Lomax [facility] Start: 09-14-2023 End: 09-14-2023 Emergency department patient visit Darren Lomax [facility] Start: 09-04-2023 End: 09-04-2023 Emergency department patient visit TI Dean Work Phone: [facility] Work Phone: Start: 08-28-2023 End: 08-28-2023 Emergency department patient visit KRYSTLE Rafaela [facility] Start: 08-26-2023 End: 08-26-2023 ambulatory GAYLA DUNBAR Not Available Start: 08-23-2023 End: 08-23-2023 Emergency department patient visit Darren Lomax [facility] Start: 08-20-2023 End: 08-20-2023 Emergency department patient visit TI Dean Work Phone: [facility] Work Phone: Start: 08-18-2023 End: 08-18-2023 Emergency department patient visit Justo Arias [facility] Start: 08-18-2023 End: 08-18-2023 Emergency department patient visit Justo Arias [facility] Start: 08-14-2023 End: 08-14-2023 Emergency department patient visit Mary Jane Parkinsondulce Facility[facility] Start: 08-14-2023 End: 08-14-2023 Emergency department patient visit Mary Jane Palm [facility] Start: 08-10-2023 End: 08-10-2023 Emergency department patient visit Mary Jane Parkinsondulce Facility:[facility] Start: 08-10-2023 End: 08-10-2023 [facility] Start: 08-05-2023 End: 08-06-2023 ambulatory SIVAN KONG Not Available Start: 08-05-2023 End: 08-05-2023 Emergency department patient visit TI Dean Work Phone: [facility] Work Phone: Start: 08-05-2023 End: 08-05-2023 ambulatory SIVAN KONG Not Available Start: 07-30-2023 End: 07-31-2023 ambulatory LANETTE LUI Facility: [facility] Start: 07-30-2023 End: 07-30-2023 Patient encounter procedure LANETTE LUI [facility] Start: 07-30-2023 End: 08-07-2023 Pre-admission assessment Ivana Bennett [facility] Start: 07-26-2023 End: 07-26-2023 Emergency department patient visit Darren Lomax [facility] Start: 07-26-2023 End: 07-26-2023 Emergency department patient visit Darren Lomax [facility] Start: 07-24-2023 End: 07-30-2023 Pre-admission assessment Ivana Bennett [facility] Start: 07-19-2023 End: 07-19-2023 Emergency department patient visit Mary Jane Xavi Parkinsondulce [facility] Start: 07-19-2023 End: 07-19-2023 Emergency department patient visit Mary Jane Xavi Arpita [facility] Start: 07-14-2023 End: 08-05-2023 Pre-admission assessment Siomara Nettles [facility] Start: 07-12-2023 End: 07-12-2023 Emergency department patient visit Justo Arias [facility] Start: 07-12-2023 End: 07-12-2023 Emergency department patient visit Justo Arias [facility] Start: 07-09-2023 End: 07-10-2023 ambulatory Amos Hilley Facility: [facility] Start: 07-09-2023 End: 07-09-2023 Patient encounter procedure Amos Castellon [facility] Start: 07-07-2023 End: 07-07-2023 Emergency department patient visit Justo Arias [facility] Start: 07-07-2023 End: 07-08-2023 ambulatory LANETTE LUI Facility:[facility] Start: 07-07-2023 End: 07-07-2023 Emergency department patient visit Justo Arias [facility] Start: 07-07-2023 End: 07-07-2023 Lab Drop off LANETTE LUI [facility] Start: 07-07-2023 End: 07-07-2023 Patient encounter procedure LANETTE LUI [facility] Start: 06-29-2023 End: 06-29-2023 Emergency department patient visit Bruno Jara [facility] Start: 06-29-2023 End: 06-29-2023 Emergency department patient visit Bruno Jara [facility] Start: 06-14-2023 End: 06-14-2023 Emergency department patient visit Justo Arias [facility] Start: 06-14-2023 End: 06-14-2023 Emergency department patient visit Justo Arias [facility] Start: 05-31-2023 End: 05-31-2023 Emergency department patient visit Mary Jane Palm [facility] Start: 05-31-2023 End: 05-31-2023 Emergency department patient visit Mary Jane Palm [facility] Start: 05-28-2023 End: 07-28-2023 ambulatory Nancy Rose [facility] Start: 05-28-2023 End: 05-28-2023 Emergency department patient visit Darren Lomax [facility] Start: 05-22-2023 End: 05-23-2023 Pre-admission assessment Nancy Rose [facility] Start: 05-22-2023 End: 05-22-2023 Emergency department patient visit Bruno Jara [facility] Start: 05-11-2023 End: 05-12-2023 ambulatory Geovany Ramirez Facility:[facility] Start: 05-11-2023 End: 05-11-2023 Patient encounter procedure Geovany Ramirez [facility] Start: 05-06-2023 End: 05-07-2023 ambulatory Gilbert Valverde [facility] Start: 05-03-2023 End: 05-04-2023 ambulatory Isaac Stephen Facility:[facility] Start: 05-03-2023 End: 05-03-2023 Patient encounter procedure Isaac Stephen [facility] Start: 05-01-2023 End: 05-01-2023 ambulatory [facility] Start: 04-15-2023 End: 04-15-2023 Emergency department patient visit Justo Arias [facility] Start: 04-15-2023 End: 04-15-2023 Emergency department patient visit Justo Arias [facility] Start: 04-11-2023 End: 04-11-2023 Emergency department patient visit Guille Will Facility[facility] Start: 03-31-2023 End: 03-31-2023 ambulatory [facility] Start: 03-31-2023 End: 03-31-2023 Postop follow up visit related to original px [facility] TI Work Phone: [facility] Comment on above: Deviated septum (Maggie lavonne Dx); Nasal congestion; Difficulty breathing; Collapse of nasal valve; Hypertrophy of inferior nasal turbinate Start: 03-30-2023 End: 03-30-2023 Emergency department patient visit Guille Will Facility:[facility] Start: 03-30-2023 End: 03-30-2023 Emergency department patient visit Guille Will [facility] Start: 03-24-2023 End: 03-24-2023 ambulatory [facility] Start: 03-24-2023 End: 03-24-2023 Subsequent hospital visit by physician Thiago Cuellar MD Work Phone: [facility] Comment on above: Nasal septal deviati on (Primary Dx); Acute post-operative pain Start: 03-22-2023 End: 03-22-2023 ambulatory ANABELA SAEZ Not Available Start: 03-11-2023 End: 03-12-2023 ambulatory Amos Castellon Facility:[facility] Start: 03-11-2023 End: 03-11-2023 Patient encounter procedure Amos Castellon [facility] Start: 02-06-2023 End: 02-06-2023 ambulatory [facility] Start: 02-06-2023 End: 02-06-2023 Office consultation new/estab patient 40 min Thiago Cuellar MD Work Phone: [facility] Comment on above: Difficulty breathing (Primary Dx); Nasal septal deviation; Hypertrophy of inferior nasal turbinate; Collapse of nasal valve; Nasal congestion; Deviated septum Start: 01-24-2023 End: 01-25-2023 ambulatory Rojelio V. Spasic Facility:[facility] Start: 01-24-2023 End: 01-24-2023 Patient encounter procedure Rojelio V. Spasic [facility] Start: 01-15-2023 End: 01-16-2023 ambulatory Rojelio V. Spasic Facility:[facility] Start: 01-15-2023 End: 01-15-2023 Patient encounter procedure Rojelio V. Spasic [facility] Start: 11-19-2022 End: 11-19-2022 Emergency department patient visit Vivian Ochoa [facility] Start: 11-09-2022 End: 11-10-2022 ambulatory Isaac Stephen [facility] Start: 11-09-2022 End: 11-09-2022 Patient encounter procedure Amos Castellon [facility] Start: 09-04-2022 End: 09-28-2022 Pre-admission assessment Gilbert Valverde [facility] Start: 08-02-2022 End: 09-04-2022 Pre-admission assessment Gilbert Bravo Link [facility] Start: 07-18-2022 End: 07-18-2022 Patient encounter procedure Gina Sterling [facility] Start: 07-18-2022 End: 07-18-2022 Patient encounter procedure Gilbert Valverde [facility] Start: 07-03-2022 End: 07-03-2022 Emergency department patient visit Mary Jane Palm [facility] Start: 06-26-2022 End: 06-26-2022 Patient encounter procedure Geovany Lujan Kaycharline [facility] Start: 09-14-2021 End: 09-14-2021 Emergency department patient visit Darren ÁlvarezVinh Lomax [facility] Start: 09-12-2021 End: 09-12-2021 Lab Drop off Miguel Angel Kuo [facility] Start: 07-18-2021 End: 07-20-2021 Evaluation and management [...] preg uterus after 1st trimest 04/28 gestation Jerrellalexus Velez DO Work Phone: Start: 07-19-2021 Comprehensive metabo lic panel Francisco Rodriguez MD Work Phone: Start: 07-19-2021 Antibody screen Whitney velasquez MD Work Phone: Start: 07-19-2021 Blood count complete automated Jerrell Velez DO Work Phone: Start: 07-19-2021 Blood typing serologic abo Jerrell Velez DO Work Phone: Start: 07-19-2021 Iadna multiple organ isms direct probe tq Jerrell Velez DO Work Phone: Start: 07-19-2021 TRICHOMONAS VAGINALI [...] Provider Start: 12-27-2020 RPR, EXTERNAL RESULT Donte Botello MD Start: 12-27-2020 RUBELLA TITER, EXTER NAL RESULT [...] of 2) Zoster Vaccines (1 of 2) [facility] Start: 08-04-2031 DTaP/Tdap/Td Vaccines (3 - Td or Tdap) DTaP/Tdap/Td Vaccines (3 - Td or Tdap) [facility] Start: 08-05-2023 Bacteria identified in Genital specimen by Aerobe culture Start: 08-05-2023 Trichomonas vaginalis detection Start: 08-05-2023 End: 08-05-2023 Start: 03-31-2023 End: 03-31-2023 Patient encounter procedure 03/31/2023 11:00 AM EST Office Visit [facility] [address] [place] [address] Regi Hunter PA-C [address] [place] [address] [facility] Start: 03-24-2023 End: 03-24-2023 Fracture nasal [...] Start: 12-27-2022 Influenza vaccination Influenza Vaccine (#1) [facility] Start: 12-27-2020 Influenza vaccination Flu vaccine (#1) [facility] Start: 2016 DTaP/Tdap/Td Vaccines (1 - Tdap) DTaP/Tdap/Td Vaccines (1 - Tdap) [facility] Start: 11-03-2015 Screening for malignant neoplasm of cervix [facility] Start: 2012 Hepatitis C screening Hepatitis C Screening [facility] Start: 11-03-1999 COVID-19 Vaccine (1) COVID-19 Vaccine (1) [facility] Start: 11-03-1995 MMR Vaccines (1 of 1 - Standard series) MMR Vaccines (1 of 1 - Standard series) [facility] Start: 11-03-1995 Varicella vaccination Varicella Vaccines (1 of 2 - 2-dose childhood series) [facility] Start: 05-05-1995 COVID-19 Vaccine (#1) COVID-19 Vaccine (#1) [facility] Start: 1994 Hepatitis B Vaccines (1 of 3 - 3-dose series) Hepatitis B Vaccines (1 of 3 - 3-dose series) [facility] Start: 1994 HIV screening HIV Screening [facility] Start: 1994 Lipid panel Lipid Panel [facility] Start: 1994 Yearly Adult Physical Yearly Adult Physical [facility] Albumin/Globulin ratio [facility] Anion gap measurement [facility] Basophils [#/volume] in Blood by Automated count Basophils/100 leukoc ytes in Blood by Automated count End: 03-24-2023 Choriogonadotropin ( test) [Presence] in Urine [facility] Work Phone: Comment on above: Once (Lab) for 1 Occurrences starting until 03/24/2023 Eosinophils/100 leuk ocytes in Blood by Automated count Erythrocyte distribu tion width [Ratio] by Automated count Erythrocytes [#/volu me] in Blood nonstress test nonst ress test OB Routine Daily until discontinued starting 07/19/2021 [employer] Work Phone: Comment on above: Daily until discontinued starting 2021 Globulin [Mass/volum e] in Serum Glucose [Mass/volume ] in Serum or Plasma POCT GLUCOSE Point of Care Testing Routine 4X Daily until discontinued starting 07/20/2021 [employer] Work Phone: Comment on above: 4X Daily until discontinued starting Glucose [Mass/volume ] in Serum or Plasma POCT Glucose Point of Care Testing - Docked Device Routine As needed (Lab) until discontinued starting 03/24/2023 [facility] Work Phone: Comment on above: As needed (Lab) until discontinued start ing 03/24/2023 Group B Strep, PCR Group B Strep , PCR Microbiology Routine 07/19/2021 2:48 AM EDT [employer] Work Phone: Hematocrit [Volume Fraction] of Blood Hemoglobin [Mass/vol ume] in Blood Leukocytes [#/volume ] corrected for nucleated erythrocytes in Blood by Automated coun Leukocytes [#/volume ] in Blood Lymphocytes [#/volum e] in Blood by Automated count Lymphocytes/100 leuk ocytes in Blood by Automated count MCH [Entitic mass] b y Automated count MCHC [Mass/volume] b y Automated count MCV [Entitic volume] by Automated count Monocytes [#/volume] in Blood by Automated count Monocytes/100 leukoc ytes in Blood by Automated count Neutrophils [#/volum e] in Blood by Automated count Neutrophils/100 leuk ocytes in Blood by Automated count Nonrebreather mask oxygen Nonreb reather mask oxygen Respiratory Care Routine As directed - RT (PRN) until discontinued starting 07/19/2021 [employer] Work Phone: Comment on above: As directed - RT (PRN) until discontinue d starting 07/19/2021 Nucleated erythrocyt es [Presence] in Blood by Automated count Oxygen therapy [Mini mum Data Set] Initiate Oxygen Therapy Protocol while on epidural Respiratory Care Routine As Needed until discontinued starting 07/19/2021 [employer] Work Phone: Comment on above: As Needed until discontinued starting Patient Education [facility] Work Phone: Patient referral [facility] Work Phone: Platelet mean volume [Entitic volume] in Blood by Automated count Platelets [#/volume] in Blood TYPE AND SCREEN TYPE AND SCREEN Blood Bank Routine Every Third Day until discontinued starting 07/19/2021, 1 completed [facility] Work Phone: Comment on above: Every Third Day until discontinued start ing 07/19/2021, 1 completed Immunizations Immunization Date Immunization Notes Care Provider Ximena diehl 08-03-2021 tetanus toxoid, reduced diphtheria toxoid, and acellular pertussis vaccine, adsorbed; Translations: [Boostrix (Tdap)] Miguel Angel Shiela [facility] Comment on above: Reason for Medicatio n: Other (see comment) 08-11-2016 tetanus toxoid, reduced diphtheria toxoid, and acellular pertussis vaccine, adsorbed Miguel Angel Shiela [facility] Comment on above: Reason for Medicatio n: Other (see comment) NEGATED: Highlighted row has not occurred!06-26-2022 influenza virus vaccine, unspecified formulation Geovany Ramirez [facility] NEGATED: Highlighted row has not occurred!06-26-2022 SARS-CoV-2 mRNA (tozinamerajaqueline 5y-11y) vaccine Geovany Villanuevadeisyjose [facility] Payers Date Payer Category Payer Self-pay 2021 Unknown [facility] [id number] 2021-Present P Stephen Chavez [address] [place] [address] [id number] 2021 Unknown [id number] 1994 Unknown [id number] 2.16.840.1.080027.3.579.2.5 1994 Unknown [id number] 2.16.840.1.106444.3.579.2.1244 1994 Unknown [id number] 2.16.840.1.527450.3.579.2.1244 1994 Unknown [id number] 2.16.840.1.988025.3.579.2.1244 1994 Unknown [id number] 2.16.840.1.114641.3.579.2.9 1994 Unknown [id number] 2.16.840.1.701070.3.579.2.1259 1994 Unknown [id number] 2.16.840.1.073193.3.579.2.1259 1994 Unknown [id number] 2.16.840.1.316148.3.579.2.1259 1994 Unknown [id number] 2.16.840.1.135351.3.579.2.174 1994 Unknown [id number] 2.16.840.1.911479.3.579.2.727 1994 Unknown [id number] 2.16.840.1.119724.3.579.2. 1994 Unknown [id number] 2.16840.1.258953.3.579.2 1994 Unknown [id number] 2.16840.1.894453.3.579.2 1994 Unknown [id number] 2.16840.1.409204.3.579.2 1994 Unknown [id number] 2.840.1.927988.3.579.2 1994 Unknown [id number] 2.840.1.772613.3.579.2 1994 Unknown [id number] 2.840.1.978828.3.579.2 1994 Unknown [id number] 2.840.1.413316.3.579.2 1994 Unknown [id number] 2.840.1.580480.3.579.2 1994 Unknown [id number] 2.840.1.190595.3.579.2 1994 Unknown [id number] 2.840.1.034907.3.579.2 1994 Unknown [id number] 2.840.1.969341.3.579.2 1994 Unknown [id number] 2.840.1.729767.3.579.2 1994 Unknown [id number] 2.840.1.236734.3.579.2 1994 Unknown [id number] 2.840.1.256213.3.579.2 1994 Unknown [id number] 2.840.1.026067.3.579.2 1994 Unknown [id number] 2.840.1.708754.3.579.2 1994 Unknown [id number] 2.16.840.1.600169.3.579.2 1994 Unknown [id number] 2.16840.1.832919.3.579.2 1994 Unknown [id number] 2.16.840.1.278026.3.579.2 1994 Unknown [id number] 2.16840.1.371062.3.579.2 1994 Unknown [id number] 2.840.1.400176.3.579.2 1994 Unknown [id number] 2.840.1.193979.3.579.2 1994 Unknown [id number] 2.840.1.054551.3.579.2 1994 Unknown [id number] 2.840.1.450524.3.579.2 1994 Unknown [id number] 2.840.1.244341.3.579.2 1994 Unknown [id number] 2.840.1.870109.3.579.2 1994 Unknown [id number] 2.16840.1.431968.3.579.2 1994 Unknown [id number] 2.16840.1.053698.3.579.2 1994 Unknown [id number] 2.16840.1.529487.3.579.2 1994 Unknown [id number] 2.16840.1.149374.3.579.2 1994 Unknown [id number] 2.16840.1.051660.3.579.2 1994 Unknown [id number] 2.16840.1.772257.3.579.2 1994 Unknown [id number] 2.840.1.614928.3.579.2 1994 Unknown [id number] 2.840.1.369392.3.579.2 1994 Unknown [id number] 2.840.1.990492.3.579.2 1994 Unknown [id number] 2.840.1.112615.3.579.2 1994 Unknown [id number] 2.840.1.954104.3.579.2 1994 Unknown [id number] 2.840.1.972897.3.579.2 1994 Unknown [id number] 2.0.1.903614.3.579. 1994 Unknown [id number] 2.840.1.705334.3.579.2 1994 Unknown [id number] 2.840.1.147181.3.579.2 1994 Unknown [id number] 2.840.1.953524.3.579.2 1994 Unknown [id number] 2840.1.349503.3.579.2 1994 Unknown [id number] 2.840.1.270185.3.579.2 1994 Unknown [id number] 2.840.1.887785.3.579.2 1994 Unknown [id number] 2.840.1.766383.3.579.2 1994 Unknown [id number] 2.840.1.626012.3.579.2 1994 Unknown [id number] 2.840.1.429811.3.579.2. 1994 Unknown [id number] 2.16840.1.287059.3.579.2 1994 Unknown [id number] 2.16840.1.248737.3.579.2. 1994 Unknown [id number] 2.16840.1.471751.3.579.2 1994 Unknown [id number] 2.16840.1.333837.3.579.2 1994 Unknown [id number] 2.840.1.724257.3.579.2 1994 Unknown [id number] 2.840.1.018660.3.579.2 1994 Unknown [id number] .840.1.636504.3.579.2 1994 Unknown [id number] 2.840.1.650445.3.579.2 1994 Unknown [id number] 2.0.1.634821.3.579.2 1994 Unknown [id number] 2.840.1.993543.3.579.2 1994 Unknown [id number] 2840.1.714817.3.579.2 1994 Unknown [id number] 2.840.1.359995.3.579.2 1994 Unknown [id number] 2.840.1.951360.3.579.2 1994 Unknown [id number] 2.16840.1.977468.3.579.2 Medicaid [facility] [facility] 104 [id number] Unknown [id number] 2.16.840.1.361771.3.579.2.531 Unknown [id number] 2.16.840.1.125873.3.579.2.531 Unknown [id number] 2.16.840.1.641759.3.579.2.531 Unknown [id number] 2.16.840.1.668825.3.579.2.531 Unknown [id number] 2.16.840.1.484184.3.579.2.531 Social History Date Type Detail Facility Start: 07-19-2021 End: 11-24-2023 Tobacco smoking status NHIS Never smoked tobacco [employer] Work Phone: Comment on above: Denies. Start: 07-19-2021 End: 03-07-2023 Tobacco use and exposure Smokeless tobacco non-user [employer] Work Phone: Start: 07-19-2021 Alcohol intake Ex-drinker (finding) [employer] Work Phone: Start: 1995 Sex Assigned At Not on file S [facility] Work Phone: Start: 07-09-2021 End: 03-24-2023 Exposure to SARS-CoV-2 (event) Not sure [employer] Work Phone: Start: 02-06-2023 End: 03-31-2023 Sex Assigned At Female [facility] Tobacco [facility] Comment on above: denies Denies. Tobacco smoking status Never [facility] Comment on above: Denies. Start: 02-06-2023 End: 03-31-2023 History of Social function [facility] Work Phone: Start: 1995 Sex Assigned At Female [facility] Start: 01-22-2023 Gender identity Identifies as female gender (finding) [facility] Work Phone: Start: 01-22-2023 Sexual orientation Heterosexual (fin ding) [facility] Work Phone: Start: 03-24-2023 End: 03-31-2023 Alcohol intake Lifetime non-drinker (finding) [facility] Work Phone: Tobacco smoking status No Smoking Status Entered [facility] Start: 08-05-2023 End: 09-27-2023 Tobacco smoking status NHIS Ex-smoker (finding) NEGATED: Highlighted row Functional Status Date Assessment Result Facility 11-29-2023 Functional Status N/A [facility] 11-26-2023 Functional Status N/A [facility] 11-24-[address] [facility] 11-05-2023 Functional Status N/A [facility] 2023 Functional Status N/A [facility] 11-01-2023 Functional Status N/A [facility] 10-31-2023 Functional Status N/A [facility] 10-30-2023 Functional Status N/A [facility] 10-25-2023 Functional Status N/A [facility] 10-21-2023 Functional Status N/A [facility] 10-19-2023 Functional Status N/A [facility] 10-17-2023 Functional Status N/A [facility] 10-05-2023 Functional Status N/A [facility] 10-02-2023 Functional Status N/A [facility] 09-27-2023 Functional Status N/A [facility] 09-26-2023 Functional Status N/A [facility] 09-24-2023 Functional Status N/A [facility] 09-20-2023 Functional Status N/A [facility] 09-17-2023 Functional Status N/A [facility] 09-15-[address] [facility] 09-14-2023 Functional Status N/A [facility] 08-18-2023 Functional Status N/A [facility] 08-14-2023 Functional Status N/A [facility] 08-10-2023 Functional Status N/A [facility] 07-30-2023 Functional Status N/A [facility] 07-26-2023 Functional Status N/A [facility] 07-19-2023 Functional Status N/A [facility] 07-12-2023 Functional Status N/A [facility] 07-09-2023 Functional Status N/A [facility] 07-07-2023 Functional Status N/A [facility] 07-07-2023 Functional Status N/A [facility] 06-29-2023 Functional Status N/A [facility] 06-14-2023 Functional Status N/A [facility] 05-31-2023 Functional Status N/A [facility] 05-11-2023 Functional Status N/A [facility] 05-03-2023 Functional Status N/A [facility] [facility] 04-15[facility]2023 Functional Status N/A [facility] 03-30-2023 Functional Status N/A [facility] 03-11-2023 Functional Status N/A [facility] 01-24-2023 Functional Status N/A [facility] 01-15-2023 Functional Status N/A [facility] 11-09-2022 Functional Status N/A [facility] 07-03-2022 Functional Status N/A [facility] 06-26-2022 Functional Status N/A [facility] Clinical Notes 07-20-2021 to 11-29-2023 Note Date & Type Note Facility 11-29-2023 Evaluation + Plan note Extrac rosy from: Title:ED Note Author:Justo Arias DO Date:11/28 Chronic pain (G89.29: Other chronic pain) Orders: diflunisal, 500 mg = 1 tab(s), Oral, q12hr, # 20 tab(s), Refills(s) 0, [id number], cm, 11/29/23 6:47:00 EDT, Height/Length Dosing, 60.8, kg, 11/29/23 6:47:00 EDT, Weight Dosing methocarbamol, 750 mg = 1 tab(s), Oral, TID, X 7 day(s), # 21 tab(s), Refills(s) 0, Pharmacy: [facility]/pharmacy #[id number], 160, cm, 11/29/23 6:47:00 EDT, Height/Length Dosing, 60.8, kg, 11/29/23 6:47:00 EDT, Weight Dosing [facility] 08-03-2024 Hospital Discharge instructions Follow Up Care 11/29/2023 06:38:59 With:Cristóbal Granados Address: [address] [place] [id number]- Business (1) When:12/02/2023 07:19:50 With:Krystle Ireland Address: [address], [address] [place] [address]- Business (1) When:Within 3 Day(s) [facility] 07-31-2024 Hospital Discharge instructions Patient Education 11/26/2023 [...] told by your health care provider. Take ibdh-vuq-bykcaxa and prescription medicines only as told by [...] provider. Document Revised: 12/20/2021 Document Reviewed: 12/20/2021 [employer] Patient Education 2022 [employer] 11/26/2023 11:40:26 Wrist Pain, Adult, Ymuy-ls-Dqar Wrist Pain, Adult There are many things [...] to any changes in your symptoms. Take kzze-lkf-jpubziy and prescription medicines only as told by [...] provider. Document Revised: 03/02/2020 Document Reviewed: 03/02/2020 [employer] Patient Education 2022 [employer]. Follow Up Care 11/26/2023 10:20:14 With:Krystle Ireland Address: [address] [place] [address], [facility] [address] [place] [phone] [facility] (1) When:11/29/2023 11:25:22 Comments:Call Dr for diagnosis based follow up [facility] 07-31-2024 NoteED Patient Education Note Orthopedics Tendinitis [...] by your health care provider. ? Take reov-rmy-bpmsfes and prescription medicines only as told by [...] ? Avoid using the (more content not included)...[facility] 11-24-2023 Hospital Discharge instructions Patient Education 11/24/2023 [...] Follow these instructions at home: Medicines Take qdwq-bjy-kuaztmw and prescription medicines only as told by your health care provider. Ask your health care provider if the medicine prescribed to you: ?Requires you to avoid driving or using machinery. ?Can cause constipation. You may need to take these actions to prevent or treat constipation: ?Drink enough fluid to keep your urine pale yellow. ?Take zkga-tvw-iijjcxp or prescription medicines. ?Eat foods that are [...] department or: Call your local emergency services (001 in the [place] Call a suicide crisis helpline, such as the National Suicide Prevention Lifeline at or 947 in the [place] This is open 24 hours a day in the [place] Text the Crisis Text Line at 586466 (in the [place] Summary Chronic pain is [...] provider. Document Revised: 08/29/2022 Document Reviewed: 12/30/2019 [employer] Patient Education 2022 [employer] Follow Up Care 11/24/2023 11:46:58 With:Krystle Ireland Address: [address] [place] [address], [address] [place] [address]- Business (1) When:Within 3 Day(s) [facility] 07-29-2024 Evaluation + Plan noteExtracted from: Title:ED Note Author:Wan RUIZ Student, Vel goyo Bravo Date:11/24/23 Chronic pelvic pain in femal e (R10.2: Pelvic and perineal pain) Other chronic pain (G89.29: Other chronic pain) Ordered: tramadol, 50 mg = 1 tab(s), Oral, q8hr, X 3 day(s), # 9 tab(s), Refills(s) 0, Pharmacy: [facility]/pharmacy #[id number], 160, cm, 11/24/23 11:59:00 EDT, Height/Length Dosing, 62, kg, 11/24/23 11:59:00 EDT, Weight Dosing Orders: naproxen, 500 mg = 1 tab(s), Oral, BID, Take one tab by mouth two times a day, # 14 tab(s), Refills(s) 0, Pharmacy: [facility]/pharmacy #[id number], 160, cm, 11/24/23 11:59:00 EDT, Height/Length Dosing, 62, kg, 11/24/23 11:59:00 EDT, Weight Dosing Future Appointments Appointment Date:11/27/2023 08:15:00 AM Scheduled Provider:Cristóbal Granados DO Location:.[facility] Appointment Type:Pain Management - New (FT) [facility] 07-29-2024 NoteED Patient Education Note Mental [...] these instructions at home: Medicines ? Take bhqt-sbh-qoraqcf and prescription medicines only as told by your health care provider. ? Ask your health care provider if the medicine prescribed to you: ? Requires you to avoid driving or using machinery. ? Can cause constipation. You may need to take these actions to prevent or treat constipation: ? Drink enough fluid to keep your urine pale yellow. ? Take pbpd-kdd-ssdupnr or prescription medicines. ? Eat foods that [...] were done. Ask your health care provider, [facility] that is doing the tests, when [...] or: ? Call your local emergency services (401 in the [place] ? Call a suicide crisis helpline, such as the National Suicide Prevention Lifeline at or 109 in the [place] This is open 24 hours a day in the [place] ? Text the Crisis Text Line at 249107 (in the [place] Summary ? Chronic pain is a type of pain that lasts or keeps coming back for at least 3?6 months. ? Chronic pain may be related to an illness, injury, or other health condition. Sometimes, the cause of chronic pain is not known. ? Treatment depends on the cause and (more content not included)...[facility]07-10-2024 Evaluation + Plan noteExtracted from: Title:ED Note [...] Date:11/17/2023 01:45:00 PM Scheduled Provider:Cristóbal Granados DO Location:FT.[facility] Appointment Type:Pain Management - New (FT) Appointment Date:11/24/2023 11:00:00 AM Scheduled Provider:Fatoumata Gooden MD Location:[facility] Appointment Type:Vascular Follow Up (FT) [facility]07-10-2024 Hospital Discharge instructions Patient Education 11/05/2023 08:48:44 [...] Follow these instructions at home: Medicines Take papb-yli-jakijhc and prescription medicines only as told by [...] Watch your condition for any changes. Take yrai-icg-yuiclgp and prescription medicines only as told by [...] provider. Document Revised: 06/02/2020 Document Reviewed: 08/23/2019 [employer] Patient Education 2022 [employer]. 11/05/2023 08:48:44 Chronic Pain, Adult Chronic Pain, [...] Follow these instructions at home: Medicines Take splp-lss-iwxmskz and prescription medicines only as told by your health care provider. Ask your health care provider if the medicine prescribed to you: ?Requires you to avoid driving or using machinery. ?Can cause constipation. You may need to take these actions to prevent or treat constipation: ?Drink enough fluid to keep your urine pale yellow. ?Take qkug-hea-fgtssgs or prescription medicines. ?Eat foods that are [...] department or: Call your local emergency services (269 in the [place] Call a suicide crisis helpline, such as the National Suicide Prevention Lifeline at or 765 in the [place] This is open 24 hours a day in the [place] Text the Crisis Text Line at 699124 (in the [place] Summary Chronic pain is [...] provider. Document Revised: 08/29/2022 Document Reviewed: 12/30/2019 [employer] Patient Education 2022 [employer]. Follow Up Care 11/04/2023 23:46:14 With:Krystle Ireland Address: [address] [place] [address], [address] [place] [address] [facility] (1) When:11/08/2023 08:47:56 Comments:Call the office [...] weakness, or any new or worsening symptoms. [facility]07-10-2024 NoteED Patient Education Note Gastroenterology Abdominal Pain, [...] these instructions at home: Medicines ? Take mneo-nyi-kkdknkq and prescription medicines only as told by [...] your condition for any changes. ? Take twgq-dly-rlzwmwc and prescription medicines only as told by [...] provider. Document Revised: 06/02/2020 Document Reviewed: 08/23/2019 [employer] Patient Education ? 2022 [employer] Mental and Behavioral Health Chronic Pain, [...] these instructions at home: Medicines ? Take mtod-cad-qsxwobq and prescription medicines only as told by your health care provider. ? Ask your health care provider if the medicine prescribed to you: ? Requires you to avoid driving or using machinery. ? Can cause constipation. You may need to take these actions to prevent or treat constipation: ? Drink enough fluid to keep your urine pale yellow. ? Take ajyg-wjj-tnruqjv or prescription medicines. ? Eat foods that [...] the nerve impulses anne (more content not included)...[facility]07-06-2024 Hospital Discharge instructions Patient Education 11/01/2023 20:06:00 [...] Follow these instructions at home: Medicines Take qmfx-oko-spulsta and prescription medicines only as told by [...] Watch your condition for any changes. Take llig-kyx-npncpqo and prescription medicines only as told by [...] provider. Document Revised: 06/02/2020 Document Reviewed: 08/23/2019 [employer] Patient Education 2022 [employer]. Follow Up Care 11/01/2023 19:35:13 With:Fatoumata Gooden Address: [address] [place] [address] [place] [address] Business (1) When:11/04/2023 19:56:58 With:Krystle Ireland Address: [address] [place] [address], [address] [place] [phone] Business (1) When:Within 3 Day(s) [facility]07-06-2024 NoteED Patient Education Note Gastroenterology Abdominal Pain, [...] these instructions at home: Medicines ? Take bkno-dod-vkowrga and prescription medicines only as told by [...] your condition for any changes. ? Take xdpr-pxz-kfhclle and prescription medicines only as told by [...] provider. Document Revised: 06/02/2020 Document Reviewed: 08/23/2019 [employer] Patient Education ? 2022 [employer].[facility] 11-01-2023 Evaluation + Plan noteExtracted from: Title:ED [...] Date:11/17/2023 01:45:00 PM Scheduled Provider:Cristóbal Granados DO Location:.[facility] Appointment Type:Pain Management - New (FT) [facility]07-05-2024 Hospital Discharge instructions Patient Education 10/31/2023 13:48:32 Abdominal Pain, Adult, Ovwn-yx-Pdsz Abdominal Pain, Adult Many things can cause belly (abdominal) pain. Most times, belly pain is not dangerous. Many cases of belly pain can be watched and treated at home. Sometimes, though, belly pain is serious. Your doctor will try to find the cause of your belly pain. Follow these instructions at home: Medicines Take hmqm-etq-rfyvsbc and prescription medicines only as told by [...] your belly pain for any changes. Take fsrb-mok-fqomwjl and prescription medicines only as told by [...] provider. Document Revised: 08/23/2019 Document Reviewed: 08/23/2019 [employer] Patient Education 2022 [employer]. Follow Up Care 10/31/2023 12:39:27 With:Follow-up with Dr. Gooden and pain management as scheduled. Address:Unknown When:11/03/2023 13:48:25 With:Krystle Ireland Address: [address] [place] [address] [address] [place] [address]- Business (1) When:Within 3 Day(s) [facility]07-05-2024 NoteED Patient Education Note Gastroenterology Abdominal Pain, Adult Many things can cause belly (abdominal) pain. Most times, belly pain is not dangerous. Many cases of belly pain can be watched and treated at home. Sometimes, though, belly pain is serious. Your doctor will try to find the cause of your belly pain. Follow these instructions at home: Medicines ? Take fdzq-xxe-ebsdsgm and prescription medicines only as told by [...] belly pain for any changes. ? Take kite-kti-wdlmsvm and prescription medicines only as told by [...] provider. Document Revised: 08/23/2019 Document Reviewed: 08/23/2019 [employer] Patient Education ? 2022 [employer].[facility] 10-30-2023 Hospital Discharge instructions Patient Education 10/30/2023 [...] known. Follow these instructions at home: Take dofu-qao-yercydh and prescription medicines only as told by [...] provider. Document Revised: 08/21/2021 Document Reviewed: 08/21/2021 [employer] Patient Education 2022 [employer]. Follow Up Care 10/30/2023 16:05:01 With:Follow with Dr. Gooden and pain management as already scheduled Address:Unknown When: Unknown With:Krystle Ireland Address: [address] [place] [address], [address] [place] [phone] Business (1) When:Within 3 Day(s) [facility]07-04-2024 NoteED Patient Education Note Obstetrics and Gynecology [...] Follow these instructions at home: ? Take nmvq-knt-zcpmlqj and prescription medicines only as told by [...] provider. Document Revised: 08/21/2021 Document Reviewed: 08/21/2021 [employer] Patient Education ? 2022 [employer].[facility] 10-30-2023 Evaluation + Plan noteExtracted from: Title:ED Note Author:Siomara Nettles PA-C e:10/30/23 1. Chronic pain (G89.29: [facility] er chronic pain) Orders: ketorolac, 30 mg [...] 01:45:00 PM Scheduled Provider:Cristóbal Granados DO Location:.[facility] Appointment Type:Pain Management - New (FT) [facility]06-29-2024 Hospital Discharge instructions Patient Education 10/25/2023 14:57:20 [...] Follow these instructions at home: Medicines Take jgfn-bob-xdeimmj and prescription medicines only as told by your health care provider. Ask your health care provider if the medicine prescribed to you: ?Requires you to avoid driving or using machinery. ?Can cause constipation. You may need to take these actions to prevent or treat constipation: ?Drink enough fluid to keep your urine pale yellow. ?Take kqog-kmj-tqxjbgt or prescription medicines. ?Eat foods that are [...] department or: Call your local emergency services (151 in the [place] Call a suicide crisis helpline, such as the National Suicide Prevention Lifeline at or 139 in the [place] This is open 24 hours a day in the [place] Text the Crisis Text Line at 600683 (in the [place] Summary Chronic pain is [...] provider. Document Revised: 08/29/2022 Document Reviewed: 12/30/2019 [employer] Patient Education 2022 [employer]. Follow Up Care 10/25/2023 13:29:29 With:Krystle Ireland Address: [address] [place] [address], [address] [place] [phone] Business (1) When:Within 3 Day(s) [facility]06-29-2024 NoteED Patient Education Note Mental and Behavioral [...] these instructions at home: Medicines ? Take uajx-fdw-oxlldsb and prescription medicines only as told by your health care provider. ? Ask your health care provider if the medicine prescribed to you: ? Requires you to avoid driving or using machinery. ? Can cause constipation. You may need to take these actions to prevent or treat constipation: ? Drink enough fluid to keep your urine pale yellow. ? Take mrzq-uny-lsgmyom or prescription medicines. ? Eat foods that [...] were done. Ask your health care provider, [facility] that is doing the tests, when [...] the National Suicide Prevention Lifeline at or 795 in the [place] This is open 24 hours a day in the [place] ? Text the Crisis Text Line at 340120 (in the [place] Summary ? Chronic pain is a type of pain that lasts or keeps coming back for at least 3?6 months. ? Chronic pain may be related to an illness, injury, or other health condition. Sometimes, the cause of chronic pain is not known. ? Treatment depends on the cause and (more content not included)...[facility]06-29-2024 Evaluation + Plan noteExtracted from: Title:ED Note Author:Ulisses Mckinney PA-C te:10/25/23 Chronic pain in female pelvi s (R10.2: Pelvic and perineal pain) Other chronic pain (G89.29: Other chronic pain) Orders: tramadol, 50 mg = 1 tab(s), Oral, q6hr, PRN for pain, X 3 day(s), # 12 tab(s), Refills(s) 0, Pharmacy: [facility] #[id number], 160, cm, 10/25/23 13:44:00 EDT, Height/Length Dosing, [...] Location:.[facility] Clinic Appointment Type:Vascular Follow Up (FT) [facility]06-25-2024 Hospital Discharge instructions Patient Education 10/21/2023 20:44:31 [...] known. Follow these instructions at home: Take rheb-qtp-bmdbkxs and prescription medicines only as told by [...] provider. Document Revised: 08/21/2021 Document Reviewed: 08/21/2021 [employer] Patient Education 2022 [employer]. Follow Up Care 10/21/2023 18:15:22 With:Cristóbal Granados Address: [address] [place], [place] [phone]- Business (1) When:10/24/2023 20:02:45 With:Pain Clinic: [facility] [phone] Address:Unknown When:10/24/2023 20:02:13 With:Krystle Ireland Address: [address] [place] [address], [address] [place] [address] Business (1) When:Within 3 Day(s) [facility]06-23-2024 Hospital Discharge instructions Follow Up Care 10/19/2023 12:42:32 With:Fatoumata Gooden Address: [address] [place] [address]- Business (1) When:10/22/2023 13:57:04 With:Krystle Ireland Address: [address] [place] [address], [address] [place] [address]- Business (1) When:Within 3 Day(s) [facility]06-23-2024 Evaluation + Plan noteExtracted from: Title:ED Note Author:Ulisses Mckinney PA-C te:10/19/23 Chronic female pelvic pain ( R10.2: Pelvic and perineal pain) Other chronic pain (G89.29: Other chronic pain) Orders: ondansetron, 4 mg = 1 tab(s), Oral, q8hr, PRN Nausea/Vomiting, # 20 tab(s), Refills(s) 0, Pharmacy: [facility]/pharmacy #[id number], 160, cm, 10/19/23 12:58:00 EDT, Height/Length Dosing, 65, kg, 10/19/23 12:58:00 EDT, Weight Dosing tramadol, 50 mg = 1 tab(s), Oral, q6hr, PRN for pain, X 3 day(s), # 10 tab(s), Refills(s) 0, Pharmacy: [facility]/pharmacy #[id number], 160, cm, 10/19/23 12:58:00 EDT, Height/Length Dosing, 65, kg, 10/19/23 12:58:00 EDT, Weight Dosing [facility]06-21-2024 Hospital Discharge instructions Patient Education 10/17/2023 18:49:44 Abdominal Pain, Adult, Qwyo-ah-Ujkf Abdominal Pain, Adult Many things can cause belly (abdominal) pain. Most times, belly pain is not dangerous. Many cases of belly pain can be watched and treated at home. Sometimes, though, belly pain is serious. Your doctor will try to find the cause of your belly pain. Follow these instructions at home: Medicines Take vupa-cyl-pktzhsv and prescription medicines only as told by [...] your belly pain for any changes. Take miwx-spx-xrmplva and prescription medicines only as told by [...] provider. Document Revised: 08/23/2019 Document Reviewed: 08/23/2019 [employer] Patient Education 2022 [employer]. Follow Up Care 10/17/2023 17:14:00 With:Fatoumata Gooden Address: [address] [place] [address]- Business (1) When:10/20/2023 18:49:28 Comments:Follow-up with Dr. Gooden for further management of care. With:Krystle Ireland Address: [address], [address] [place] [address]- Business (1) When:10/20/2023 18:48:43 [facility]06-09-2024 Hospital Discharge instructions Follow Up Care 10/05/2023 19:21:54 With:Krystle Ireland Address: [address] [place] [address], [address] Business (1) When:10/08/2023 20:32:53 Comments:Call Dr for diagnosis based follow up [facility]06-06-2024 Evaluation + Plan noteExtracted from: Title:ED Note Author:Don Vivian Date :10/02/23 Chronic abdominal pain (R10. 9: Unspecified abdominal pain) Other chronic pain (G89.29: Other chronic pain) Orders: U Beta Hcg Qual UA with Cult Rflx Addendum by Arpita Layton, As triosvaldo on October 02, 2023 09:13:47 EDT The care of the patient was transitioned to la upon shift change to follow-up with urine [...] to follow-up with her primary doctor and [facility]. She is instructed to return to the emergency room if her pain gets worse or any new symptoms. [facility]06-06-2024 Hospital Discharge instructions Patient Education 10/02/2023 07:48:34 [...] Follow these instructions at home: Medicines Take rmnc-hqy-mcvsrkr and prescription medicines only as told by [...] provider. Document Revised: 11/24/2020 Document Reviewed: 11/24/2020 [employer] Patient Education 2022 [employer]. 10/02/2023 07:48:34 Abdominal Pain, Adult Abdominal Pain, [...] Follow these instructions at home: Medicines Take bmxg-uda-fhuurpe and prescription medicines only as told by [...] Watch your condition for any changes. Take bhmv-wvs-eaqeafp and prescription medicines only as told by [...] provider. Document Revised: 06/02/2020 Document Reviewed: 08/23/2019 [employer] Patient Education 2022 [employer]. 10/02/2023 07:48:34 Chronic Pain, Adult Chronic Pain, [...] Follow these instructions at home: Medicines Take laxf-dfb-klgjnle and prescription medicines only as told by your health care provider. Ask your health care provider if the medicine prescribed to you: ?Requires you to avoid driving or using machinery. ?Can cause constipation. You may need to take these actions to prevent or treat constipation: ?Drink enough fluid to keep your urine pale yellow. ?Take azwx-iec-forqrlw or prescription medicines. ?Eat foods that are [...] department or: Call your local emergency services (851 in the [place] Call a suicide crisis helpline, such as the National Suicide Prevention Lifeline at or 605 in the [place] This is open 24 hours a day in the [place] Text the Crisis Text Line at 102158 (in the [place] Summary Chronic pain is [...] provider. Document Revised: 08/29/2022 Document Reviewed: 12/30/2019 [employer] Patient Education 2022 [employer]. Follow Up Care 10/02/2023 06:24:31 With:Krystle Ireland Address: [address] [place] [address], [address] [facility] (1) When:10/05/2023 07:39:36 Comments:Return to the emergency room if your pain gets worse, vomiting, fever or any new symptoms. [facility]06-01-2024 Evaluation + Plan noteExtracted from: Title:ED Note Author:Sy Pickard PA-C te:09/27/23 Chronic pain in female pelvi s (R10.2: Pelvic and perineal pain) Other chronic pain (G89.29: Other chronic pain) Orders: tramadol, 50 mg = 1 tab(s), Tab, Oral, Once, Stop date 09/27/23 10:37:00 EDT, STAT, Start date 09/27/23 10:37:00 EDT, 09/27/23 10:37:00 EDT [facility]06-01-2024 Hospital Discharge instructions Patient Education 09/27/2023 10:45:34 [...] Follow these instructions at home: Medicines Take acyc-npw-eaevsry and prescription medicines only as told by your health care provider. Ask your health care provider if the medicine prescribed to you: ?Requires you to avoid driving or using machinery. ?Can cause constipation. You may need to take these actions to prevent or treat constipation: ?Drink enough fluid to keep your urine pale yellow. ?Take hweb-btp-uenffia or prescription medicines. ?Eat foods that are [...] department or: Call your local emergency services (319 in the [place] Call a suicide crisis helpline, such as the National Suicide Prevention Lifeline at or 879 in the [place] This is open 24 hours a day in the [place] Text the Crisis Text Line at 623350 (in the [place] Summary Chronic pain is [...] provider. Document Revised: 08/29/2022 Document Reviewed: 12/30/2019 [employer] Patient Education 2022 [employer] Follow Up Care 09/27/2023 10:30:49 With:Krystle Ireland Address: [address] [place] [address], [address] [place] [phone]- Business (1) When:09/30/2023 10:37:30 [facility]05-31-2024 Hospital Discharge instructions Patient Education 09/26/2023 16:26:05 [...] Follow these instructions at home: Medicines Take bxfm-lsp-kqffxuh and prescription medicines only as told by [...] provider. Document Revised: 11/24/2020 Document Reviewed: 11/24/2020 [employer] Patient Education 2022 [employer]. Follow Up Care 09/26/2023 15:08:18 With:Krystle Ireland Address: [address] [place] [address] Business (1) When:09/29/2023 16:17:44 [facility]05-31-2024 Evaluation + Plan noteExtracted from: Title:ED Note Author:Gagandeep LUKE, Daxa Justice Date:09/26/23 1. Dysuria (R30.0: Dysuria) Orders: phenazopyridine, 200 mg = 1 tab(s), Oral, TID, X 7 day(s), # 21 tab(s), Refills(s) 0, Pharmacy: [facility]/pharmacy #[id number], 160, cm, 09/26/23 15:23:00 EDT, Height/Length Dosing, 65, kg, 09/26/23 15:23:00 EDT, Weight Dosing U Beta Hcg Qual UA with Cult Rflx [facility]05-29-2024 Hospital Discharge instructions Patient Education 09/24/2023 16:32:50 [...] Follow these instructions at home: Medicines Take ghbl-bir-lpwdrse and prescription medicines only as told by [...] provider. Document Revised: 11/24/2020 Document Reviewed: 11/24/2020 [employer] Patient Education 2022 [employer]. Follow Up Care 09/24/2023 15:27:34 With:Fatoumata Gooden Address: [address] [place] [phone] Business (1) When:09/27/2023 16:22:39 Comments:Call Dr for diagnosis based follow up With:Krystle Ireland Address: [address] [place] [address], [facility] [address] [place] [address] Business (1) When:09/27/2023 16:22:32 Comments:Call Dr for diagnosis based follow up [facility]05-25-2024 Hospital Discharge instructions Follow Up Care 09/20/2023 12:20:52 With:Krystle Ireland Address: [address] [place] [address], [address] [address] Business (1) When:Within 3 Day(s) [facility]05-25-2024 Evaluation + Plan noteExtracted from: Title:ED Note Author:Justo Arias DO Date:08/27 09/18 Abdominal pain (R10.9: Unspe cified abdominal pain) Ordered: tramadol, 50 mg = 1 tab(s), Oral, q6hr, X 3 day(s), # 12 tab(s), Refills(s) 0, Pharmacy: [facility]/pharmacy #[id number], 160, cm, 09/20/23 12:38:00 EDT, Height/Length Dosing, 65.1, kg, 09/20/23 12:38:00 EDT, Weight Dosing Nausea (R11.0: Nausea) Orders: ondansetron, 4 mg = 1 tab(s), Oral, q6hr, X 3 day(s), # 10 tab(s), Refills(s) 0, Pharmacy: [facility]/pharmacy #[id number], 160, cm, 09/20/23 12:38:00 EDT, Height/Length Dosing, 65.1, kg, 09/20/23 12:38:00 EDT, Weight Dosing Basic Metabolic Panel Beta hCG Qual CBC w/ Auto Diff eGFR Hepatic Function Panel Lipase Level [facility]05-22-2024 Evaluation + Plan noteExtracted from: Title:ED Note Author:Don Wilmasadi Ford Date :09/17/23 Acute UTI (N39.0: Urinary tr act infection, site not specified) Orders: dicyclomine, 10 mg = 1 cap(s), Cap, Oral, Once, Stop date 09/17/23 4:46:00 EDT, STAT, Start date 09/17/23 4:46:00 EDT, 09/17/23 4:46:00 EDT dicyclomine, 10 mg = 1 cap(s), Oral, QID, X 7 day(s), # 21 cap(s), Refills(s) 0, Pharmacy: [facility]/pharmacy #[id number], 160, cm, 09/17/23 4:33:00 EDT, Height/Length Dosing, 65.4, kg, 09/17/23 4:33:00 EDT, Weight Dosing nitrofurantoin, 100 mg = 1 cap(s), Oral, q12hr, X 5 day(s), # 10 cap(s), Refills(s) 0, Pharmacy: [facility]/pharmacy #[id number], 160, cm, 09/17/23 4:33:00 EDT, Height/Length [...] day(s), # 9 tab(s), Refills(s) 0, Pharmacy: [facility]/pharmacy #[id number], 160, cm, 09/17/23 4:33:00 EDT, Height/Length Dosing, 65.4, kg, 09/17/23 4:33:00 EDT, Weight Dosing tramadol, 100 mg = 2 tab(s), Tab, Oral, Once, Stop date 09/17/23 4:52:00 EDT, STAT, Start date 09/17/23 4:52:00 EDT, 09/17/23 4:52:00 EDT tramadol, 50 mg = 1 tab(s), Oral, q6hr, PRN for pain, X 2 day(s), # 7 tab(s), Refills(s) 0, [id number], 160, cm, 09/17/23 4:33:00 EDT, Height/Length Dosing, 65.4, kg, 09/17/23 4:33:00 EDT, Weight Dosing U Beta Hcg Qual UA with Cult Rflx Urine Culture Diagnostic Tests Pending * Urine Culture 09/17/23 [facility]05-22-2024 Hospital Discharge instructions Patient Education 09/17/2023 05:11:08 Urinary Tract Infection, Adult, Xnuh-dd-Pfuc Urinary Tract Infection, Adult A urinary tract [...] Follow these instructions at home: Medicines Take zufq-gqa-abdrnxj and prescription medicines only as told by [...] provider. Document Revised: 11/24/2020 Document Reviewed: 11/24/2020 [employer] Patient Education 2022 [employer]. Follow Up Care 09/17/2023 04:26:17 With:Krystle Ireland Address: [address] [place] [address], [facility] [address] [facility] (1) When:09/20/2023 Comments:Take the antibiotics as prescribed until you have completed the course. You can use the Pyridium every 8 hours as needed for burning. You can use the other medications as prescribed as needed for pain. Please follow-up with your primary care doctor for further evaluation management. Please return to the ED for any new or worsening symptoms. [facility]05-19-2024 Evaluation + Plan noteExtracted from: Title:ED Note Author:Sy Pickard PA-C te:09/14/23 Pelvic congestion syndrome ( N94.89: Other specified conditions associated with female genital organs and menstrual cycle) Ordered: tramadol, 50 mg = 1 tab(s), Oral, q6hr, PRN as needed for pain, X 2 day(s), # 10 tab(s), Refills(s) 0, Pharmacy: [facility]/pharmacy #[id number], 160, cm, 09/14/23 11:13:00 EDT, Height/Length Dosing, 65.1, kg, 09/14/23 11:13:00 EDT, Weight Dosing Future Appointments Appointment Date:09/15/2023 08:45:00 AM Scheduled Provider:Bon DC, Fatoumata Kelsey Location:.[facility] Appointment Type:Vascular New Patient (FT) [facility]05-19-2024 Hospital Discharge instructions Patient Education 09/14/2023 11:57:28 [...] Follow these instructions at home: Medicines Take xgpb-cch-qgmlvar and prescription medicines only as told by [...] Watch your condition for any changes. Take uask-kbb-mtpywdl and prescription medicines only as told by [...] provider. Document Revised: 06/02/2020 Document Reviewed: 08/23/2019 [employer] Patient Education 2022 [employer]. Follow Up Care 09/14/2023 11:06:42 With:Krystle Ireland Address: [address] [place] [address], [address] [place] [address] Business (1) When:09/17/2023 11:48:22 [facility]04-22-2024 Evaluation + Plan noteExtracted from: Title:ED Note Author:Justo Arias DO Date:07/28 06/21 Pelvic pain (R10.2: Pelvic a nd perineal pain) Ordered: tramadol, 50 mg, Oral, q4hr, Take one by mouth every four hours, X 3 day(s), # 10 tab(s), Refills(s) 0, Pharmacy: [facility] #[id number], 160, cm, 08/18/23 10:31:00 EDT, Height/Length Dosing, 64, kg, 08/18/23 10:31:00 EDT, Weight Dosing Orders: U Beta Hcg Qual UA with Cult Rflx [facility]04-22-2024 Hospital Discharge instructions Follow Up Care 08/18/2023 10:23:22 With:your physician at Address:Unknown When:08/21/2023 11:40:28 With:Krystle Ireland Address: [address] [place] [address], [address] [place] [address] Business (1) When:Within 3 Day(s) [facility]04-18-2024 Hospital Discharge instructions Patient Education 08/14/2023 17:20:57 [...] known. Follow these instructions at home: Take dzdt-wph-ikcoeso and prescription medicines only as told by [...] provider. Document Revised: 08/21/2021 Document Reviewed: 08/21/2021 [employer] Patient Education 2022 [employer]. Follow Up Care 08/14/2023 14:23:37 With:Miguel Angel Kuo Address: [address] [address] [facility] (1) When:08/17/2023 17:07:38 Comments:Make sure to follow-up with Dr. Kuo. Return to the emergency room if your pain gets worse, you develop fever, vaginal discharge or any new symptoms. With:Krystle Ireland Address: [address] [place] [address], [address] [place] [address]- Business (1) When:Within 3 Day(s) [facility]04-18-2024 Evaluation + Plan noteExtracted from: Title:ED Note Author:Arpita Layton, Mary Jane Simmons te:08/14/23 1. Chronic pelvic pain in fe male (R10.2: Pelvic and perineal pain) Ordered: tramadol, 50 mg = 1 tab(s), Oral, q8hr, PRN as needed for pain, # 7 tab(s), Refills(s) 0, Pharmacy: [facility]/pharmacy #[id number], 160, cm, 08/14/23 14:48:00 EDT, Height/Length Dosing, 64, kg, 08/14/23 14:48:00 EDT, Weight Dosing Other chronic pain (G89.29: Other chronic pain) Orders: Basic Metabolic Panel CBC w/ Auto Diff eGFR Extra Blue Tube Extra SST Tube U Beta Hcg Qual UA with Cult Rflx [facility]04-14-2024 Hospital Discharge instructions Patient Education 08/10/2023 12:56:06 [...] known. Follow these instructions at home: Take tyqt-icy-urbsgxg and prescription medicines only as told by [...] provider. Document Revised: 08/21/2021 Document Reviewed: 08/21/2021 [employer] Patient Education 2022 [employer]. Follow Up Care 08/10/2023 11:35:32 With:Miguel Angel Kuo Address: [facility] [place] [id number] Business (1) When:08/13/2023 12:48:54 [facility]04-14-2024 Evaluation + Plan noteExtracted from: Title:ED Note Author:Sy Pickard PA-C te:08/10/23 Chronic pelvic pain in femal e (R10.2: Pelvic and perineal pain) Ordered: tramadol, 50 mg = 1 tab(s), Oral, q6hr, PRN as needed for pain, Take one tab by mouth every six hours as needed for pain, X 3 day(s), # 8 tab(s), Refills(s) 0, Pharmacy: [facility]/pharmacy #[id number], 160, cm, 08/10/23 11:41:00 EDT, Height/Length Dosing, 66, kg, 08/10/23... Other chronic pain (G89.29: Other chronic pain) Orders: dicyclomine, 20 mg = 1 tab(s), Oral, TID, X 7 day(s), # 21 tab(s), Refills(s) 0, Pharmacy: [facility]/pharmacy #[id number], 160, cm, 08/10/23 11:41:00 EDT, Height/Length Dosing, 66, kg, 08/10/23 11:41:00 EDT, Weight Dosing [facility]04-03-2024 Hospital Discharge instructions Patient Education 07/30/2023 14:39:41 [...] numbers. This can be done either in [place] ([place] or metric measurements. Note that charts and online BMI calculators are available to help you find your BMI quickly and easily without having to do these calculations yourself. To calculate your BMI in [place] ([place] measurements: 1.Measure your weight in pounds [...] Centers for Disease Control and Prevention: www.cdc.gov [place] [employer]: www.heart.org National Heart, Lung, and Blood [place]: www.nhlbi.nih.gov Summary Body mass index (BMI) is a number that is calculated from a person's weight and height. BMI may help estimate how much of a person's weight is composed of fat. BMI can help identify thosewho may be at higher risk for certain medical problems. BMI can be measured using [place] measurements or metric measurements. BMI charts are used to identify whether you are underweight, normal weight, overweight, or obese. This information is not intended to replace advice given to you by your health care provider. Make sure you discuss any questions you have with your health care provider. Document Revised: 01/05/2020 Document Reviewed: 11/12/2019 [employer] Patient Education 2022 [employer]. 07/30/2023 14:39:39 Abdominal Pain, Adult, Fjuc-hl-Qnwk Abdominal Pain, Adult Many things can cause belly (abdominal) pain. Most times, belly pain is not dangerous. Many cases of belly pain can be watched and treated at home. Sometimes, though, belly pain is serious. Your doctor will try to find the cause of your belly pain. Follow these instructions at home: Medicines Take nhqq-abu-xyfowwx and prescription medicines only as told by [...] your belly pain for any changes. Take jxif-cer-wywhfpz and prescription medicines only as told by [...] provider. Document Revised: 08/23/2019 Document Reviewed: 08/23/2019 [employer] Patient Education 2022 [employer]. Follow Up Care 07/30/2023 11:06:05 With:Krystle Ireland CNP Address: [address] [place] [address], [address] [place] [address]- When: Unknown [facility] 03-30-2024 Hospital Discharge instructions Patient [...] Follow these instructions at home: Medicines Take hfih-czf-xxmvkar and prescription medicines only as told by [...] Watch your condition for any changes. Take xmma-rjk-zdhfhme and prescription medicines only as told by [...] provider. Document Revised: 06/02/2020 Document Reviewed: 08/23/2019 [employer] Patient Education 2022 [employer]. Follow Up Care 07/26/2023 09:36:30 With:Krystle Ireland Address: [address] [place] [address], [address] [place] [phone] [facility] (1) When:07/29/2023 12:09:58 Comments:Call the office [...] weakness, or any new or worsening symptoms. [facility]03-30-2024 Evaluation + Plan noteExtracted from: Title:ED Note Author:Darren Lomax DO Date: Acute abdominal pain (R10.9: Unspecified abdominal pain) Ordered: tramadol, 50 mg = 1 tab(s), Oral, q12hr, PRN for pain, X 3 day(s), # 6 tab(s), Refills(s) 0, Pharmacy: [facility]/pharmacy #[id number], 160, cm, 07/26/23 9:44:00 EDT, Height/Length [...] Complete 07/29/23 * US Transvaginal Non-OB 07/29/23 [facility]03-23-2024 Hospital Discharge instructions Patient Education 07/19/2023 12:49:00 Bronchospasm, Adult, Jihu-xk-Kkjt Bronchospasm, Adult Bronchospasm is when the small airways in the lungs narrow. This can make it very hard to breathe. Swelling and more mucus than normal can add to this problem. What are the causes? Having a cold. Exercise. The smell from sprays, perfumes, candles, and wood cut engraver. Cold air. Stress or strong feelings such [...] Follow these instructions at home: Medicines Take rwov-van-koxpfuz and prescription medicines only as told by [...] provider. Document Revised: 11/05/2021 Document Reviewed: 11/05/2021 [employer] Patient Education 2022 [employer]. 07/19/2023 12:49:00 Nonspecific Chest Pain, Adult, Yrag-uq-Wasa Nonspecific Chest Pain Chest pain can be [...] Follow these instructions at home: Medicines Take ycio-cft-nmyvjid and prescription medicines only as told by [...] ?Eating a heart-healthy diet. A diet and public health nutritionist (dietitian) can help you to learn healthy [...] provider. Document Revised: 06/28/2021 Document Reviewed: 06/28/2021 [employer] Patient Education 2022 [employer]. 07/19/2023 12:49:00 Chest Wall Pain, Mwlm-mx-Pypi Chest Wall Pain Chest wall pain is [...] are safe for you. General instructions Take vpfb-hyj-nsxilvn and prescription medicines only as told by [...] provider. Document Revised: 07/17/2021 Document Reviewed: 06/29/2021 [employer] Patient Education 2022 [employer]. Follow Up Care 07/19/2023 09:27:13 With:Krystle Ireland Address: [address] [place] [address], [address] [place] [phone] Business (1) When:Within 3 Day(s) [facility]03-23-2024 Evaluation + Plan noteExtracted from: Title:ED Note Author:Ulisses Mckinney PA-C te:07/19/23 Bronchitis (J40: Bronchitis, not specified as acute or chronic) Nonspecific chest pain (R07.9: Chest pain, unspecified) Orders: azithromycin, 250 mg, Oral, As Directed, # 6 tab(s), Refills(s) 0, Pharmacy: [facility] #[id number], 160, cm, 07/19/23 9:32:00 EDT, Height/Length Dosing, [...] day(s), # 21 tab(s), Refills(s) 0, [id number], 160, cm, 07/19/23 9:32:00 EDT, Height/Length Dosing, [...] 12 tab(s), Refills(s) 0, Pharmacy: [facility] #[id number], 160, cm, 07/19/23 9:32:00 EDT, Height/Length Dosing, [...] Scheduled Provider: Location:.[facility] Appointment Type:CV Holter/Event (FT) [facility]03-16-2024 Hospital Discharge instructions Patient Education 07/12/2023 20:02:42 [...] the electrical activity of the heart. ?Ambulatory production honing machine operator. This records your heartbeats for 24 hours or more. You may be referred to a obgyn specialist (geothermal plant manager). How is this treated? Treatment for this [...] to keep your urine pale yellow. Take hwfw-ppl-tnzahhk and prescription medicines only as told by [...] provider. Document Revised: 08/23/2021 Document Reviewed: 08/23/2021 [employer] Patient Education 2022 [employer]. 07/12/2023 20:02:42 Hypokalemia Hypokalemia Hypokalemia means that [...] products, such as yogurt. General instructions Take plcv-fmi-tajjbuk and prescription medicines only as told by [...] provider. Document Revised: 12/27/2021 Document Reviewed: 12/27/2021 [employer] Patient Education 2022 [employer]. Follow Up Care 07/12/2023 17:35:23 With:Rogelio LUTZ Address: [address] [place] [phone] Business (1) When:07/19/2023 19:46:40 With:Krystle Ireland Address: [address], [address] [place] [address]- Business (1) When:Within 3 Day(s) [facility]03-13-2024 Hospital Discharge instructions Patient Education 07/09/2023 17:05:08 [...] numbers. This can be done either in [place] ([place] or metric measurements. Note that charts and online BMI calculators are available to help you find your BMI quickly and easily without having to do these calculations yourself. To calculate your BMI in [place] ([place] measurements: 1.Measure your weight in pounds [...] Centers for Disease Control and Prevention: www.cdc.gov [place] [employer]: www.heart.org National Heart, Lung, and Blood [place]: www.nhlbi.nih.gov Summary Body mass index (BMI) is a number that is calculated from a person's weight and height. BMI may help estimate how much of a person's weight is composed of fat. BMI can help identify thosewho may be at higher risk for certain medical problems. BMI can be measured using [place] measurements or metric measurements. BMI charts are used to identify whether you are underweight, normal weight, overweight, or obese. This information is not intended to replace advice given to you by your health care provider. Make sure you discuss any questions you have with your health care provider. Document Revised: 01/05/2020 Document Reviewed: 11/12/2019 [employer] Patient Education 2022 [employer]. 07/09/2023 17:05:07 Abdominal Pain, Adult Abdominal Pain, [...] Follow these instructions at home: Medicines Take klvf-kqr-lmrjpdu and prescription medicines only as told by [...] Watch your condition for any changes. Take dyuw-gez-mclzene and prescription medicines only as told by [...] provider. Document Revised: 06/02/2020 Document Reviewed: 08/23/2019 [employer] Patient Education 2022 [employer]. Follow Up Care 07/09/2023 12:39:40 With:Krystel Ireland CNP Address: [address] [place] [address], [address] [place] [address]- When: Unknown [facility] 03-11-2024 Hospital Discharge instructions Patient [...] Follow these instructions at home: Medicines Take cnfr-wxz-mgcvlhv and prescription medicines only as told by [...] Watch your condition for any changes. Take thmh-gaw-wqtysbe and prescription medicines only as told by [...] provider. Document Revised: 06/02/2020 Document Reviewed: 08/23/2019 [employer] Patient Education 2022 [employer]. Follow Up Care 07/07/2023 11:03:13 With:Krystle Ireland Address: [address] [place] [address], [address] [place] [address] Business (1) When:07/10/2023 12:52:46 [facility]03-11-2024 Hospital Discharge instructions Patient Education 07/07/2023 11:15:13 Steps to Quit Smoking, Txil-fs-Fiwg Steps to Quit Smoking Smoking tobacco is [...] a prescription, and some you can buy mhrv-loi-sqlkjsq. Some medicines may contain a drug called [...] you. Call a phone quitline, such as 8-950-GSLNTransbiomedNOW, reach out to support groups, or work [...] provider. Document Revised: 04/05/2022 Document Reviewed: 04/05/2022 [employer] Patient Education 2022 [employer]. 07/07/2023 11:15:10 BMI for Adults BMI for [...] numbers. This can be done either in [place] or metric measurements. Note that charts and online BMI calculators are available to help you find your BMI quickly and easily without having to do these calculations yourself. To calculate your BMI in [place] ([place] measurements: 1.Measure your weight in pounds [...] Centers for Disease Control and Prevention: www.cdc.gov [place] [employer]: www.heart.org National Heart, Lung, and Blood [place]: www.nhlbi.nih.gov Summary Body mass index (BMI) is a number that is calculated from a person's weight and height. BMI may help estimate how much of a person's weight is composed of fat. BMI can help identify thosewho may be at higher risk for certain medical problems. BMI can be measured using [place] measurements or metric measurements. BMI charts are used to identify whether you are underweight, normal weight, overweight, or obese. This information is not intended to replace advice given to you by your health care provider. Make sure you discuss any questions you have with your health care provider. Document Revised: 01/05/2020 Document Reviewed: 11/12/2019 [employer] Patient Education 2022 [employer]. 07/07/2023 11:15:04 Dysuria Dysuria Dysuria is pain [...] Follow these instructions at home: Medicines Take hvnh-sva-vrcmjqs and prescription medicines only as told by [...] provider. Document Revised: 11/24/2020 Document Reviewed: 11/24/2020 [employer] Patient Education 2022 [employer]. 07/07/2023 11:15:01 Abdominal Pain, Adult, Ucxz-aw-Hpac Abdominal Pain, Adult Many things can cause belly (abdominal) pain. Most times, belly pain is not dangerous. Many cases of belly pain can be watched and treated at home. Sometimes, though, belly pain is serious. Your doctor will try to find the cause of your belly pain. Follow these instructions at home: Medicines Take uqaj-ovo-qwgxgcu and prescription medicines only as told by [...] your belly pain for any changes. Take lbqb-ezd-ycsxaiv and prescription medicines only as told by [...] provider. Document Revised: 08/23/2019 Document Reviewed: 08/23/2019 [employer] Patient Education 2022 [employer]. 07/07/2023 11:14:57 Flank Pain, Adult, Ofqv-sm-Cumt Flank Pain, Adult Flank pain is pain [...] Rest as told by your doctor. Take msjk-tyj-odtayds and prescription medicines only as told by [...] right away. Call your local emergency services ([address] [place] [place] Do not wait to see [...] provider. Document Revised: 06/25/2021 Document Reviewed: 06/25/2021 [employer] Patient Education 2022 [employer]. Follow Up Care 07/07/2023 09:06:09 With:Krystle Ireland CNP Address: [address] [place] [address], [address] [place] [address]- When: Unknown With:Emergency room Address: When:Within 1 Day(s) Comments:Patient instructed to contact emergency room for any worsening lower abdominal pain or worsening right flank pain, for further evaluation and treatment and assessment. Patient agrees with the plan. [facility] 03-03-2024 Evaluation + Plan noteExtracted [...] PT & PTT Rapid COVID Antigen ([facility] Saline Lock Insert Troponin 0 Hr. XR [...] the Naprosyn she will then take 1 Weldon that we will dispense. She is scheduled to follow-up with her family doctor tomorrow morning. [facility]03-03-2024 Hospital Discharge instructions Patient Education 06/29/2023 08:58:56 [...] the electrical activity of the heart. ?Ambulatory production honing machine operator. This records your heartbeats for 24 hours or more. You may be referred to a obgyn specialist (geothermal plant manager). How is this treated? Treatment for this [...] to keep your urine pale yellow. Take tgyu-olg-syycuws and prescription medicines only as told by [...] provider. Document Revised: 08/23/2021 Document Reviewed: 08/23/2021 [employer] Patient Education 2022 [employer]. 06/29/2023 08:58:56 Nonspecific Chest Pain, Adult, Xvpy-zl-Njms Nonspecific Chest Pain Chest pain can be [...] Follow these instructions at home: Medicines Take ceel-tfc-apgnpeb and prescription medicines only as told by [...] ?Eating a heart-healthy diet. A diet and public health nutritionist (dietitian) can help you to learn healthy [...] provider. Document Revised: 06/28/2021 Document Reviewed: 06/28/2021 [employer] Patient Education 2022 [employer]. Follow Up Care 06/29/2023 06:08:42 With:Krystle Ireland Address: [address] [place] [address], [address] [place] [address]- Business (1) When:06/30/2023 08:46:18 Comments:As scheduled [facility]02-17-2024 Hospital Discharge instructions Patient Education 06/14/2023 09:20:58 Pharyngitis, Iqyl-rw-Bzvf Pharyngitis Pharyngitis is a sore throat (pharynx). [...] Follow these instructions at home: Medicines Take sifi-bjv-uomexkb and prescription medicines only as told by [...] and water are not available, use hand wind operations supervisor. Do not touch your eyes, nose, or [...] provider. Document Revised: 07/11/2021 Document Reviewed: 07/11/2021 [employer] Patient Education 2022 [employer]. Follow Up Care 06/14/2023 08:47:19 With:Krystle Ireland Address: [address] [place] [address], [address] [place] [address]- Business (1) When:06/17/2023 09:01:25 [facility]02-03-2024 Evaluation + Plan noteExtracted from: Title:ED Note Author:Sy Pickard PA-C te:05/31/23 Abdominal pain (R10.9: Unspe cified abdominal pain) Diarrhea, unspecified (R19.7: Diarrhea, unspecified) Nausea vomiting and diarrhea (R11.2: Nausea with vomiting, unspecified) Orders: dicyclomine, 20 mg = 1 tab(s), Oral, TID, X 7 day(s), # 21 tab(s), Refills(s) 0, Pharmacy: [facility] #[id number], 160, cm, 05/31/23 8:12:00 EST, Height/Length Dosing, [...] TID, # 15 tab(s), Refills(s) 0, Pharmacy: [facility] #[id number], 160, cm, 05/31/23 8:12:00 EST, Height/Length Dosing, [...] XR Spine Lumbosacral Minimum 4 Views 06/26/22 [facility]02-03-2024 Hospital Discharge instructions Patient Education 05/31/2023 11:18:59 [...] Follow these instructions at home: Medicines Take nnkq-trz-pdooxqt and prescription medicines only as told by [...] Watch your condition for any changes. Take ofsb-ofg-kltzhxp and prescription medicines only as told by [...] provider. Document Revised: 06/02/2020 Document Reviewed: 08/23/2019 [employer] Patient Education 2022 [employer]. Follow Up Care 05/31/2023 08:01:25 With:Krystle Ireland Address: [address] [place] [address], [address] [place] [id number] Business (1) When:06/03/2023 11:01:28 [facility]12-19-2023 Hospital Discharge instructions Patient Education 04/15/2023 12:14:04 Nosebleed, Adult, Psvy-wq-Jkwm Nosebleed, Adult A nosebleed is when blood [...] your nosebleed was caused by dryness, use jcky-zlj-whfbaiq saline nasal spray or gel and a [...] provider. Document Revised: 04/23/2022 Document Reviewed: 04/23/2022 [employer] Patient Education 2022 [employer]. Follow Up Care 04/15/2023 11:30:17 With:Erin DC, Zabrina Hurley Address: [address] [place] [address], [address] [place] [id number]- When:1 to 2 days [facility]12-19-2023 Evaluation + Plan noteExtracted from: Title:ED Note Author:Savanna Rivero PA-C Date :04/15/23 1. Epistaxis (R04.0: Epistax is) Future Scheduled Tests Radiology* XR Spine Lumbosacral Minimum 4 Views 06/26/22 [facility]12-04-2023 History of Present illness Narrative* Regi Hunter PA-C - 03/31/2023 11:00 AM EST POV after 03/24/23 nasal surgery Doing well, endorses improved breathing bilaterally Continues salt water sprays and vaseline to nares Nasal splint removed Septum midline Nasal valve patent Incisions c/d/I Continue nasal saline sprays and ointment to nares RTC 4-6 months or PRN documented in this [facility] Work Phone: 1(916) 252-709412-03-2023 Hospital Discharge instructions Patient Education 03/30/2023 16:47:32 [...] Get up and walk. IV patient-controlled analgesia (CODING COMPLIANCE SPECIALIST) pump With this method, you receive pain medicine through an IV that is connected to a CODING COMPLIANCE SPECIALIST pump. The CODING COMPLIANCE SPECIALIST pump gives you a specific amount of medicine when you push a button. This lets you control how much medicine you receive. You are the only person who should push this button. The pump is set up so that you cannot accidentally give yourself too much medicine. You will be able to start using your CODING COMPLIANCE SPECIALIST pump in the recovery room after [...] provider. Document Revised: 07/12/2021 Document Reviewed: 07/12/2021 [employer] Patient Education 2022 [employer]. 03/30/2023 16:47:32 Acute Pain, Adult Acute Pain, [...] Follow these instructions at home: Medicines Take dipq-cyy-qgrbkup and prescription medicines only as told by [...] pain is severe. ?Do not take other oiky-tmt-ontjfnb pain medicines in addition to prescription pain [...] grains, and fresh fruits and vegetables. ?Take jbqm-yaq-zdodbpr or prescription medicines. ?Limit foods that are [...] or you are no longer ill. Take mtfl-ynb-hsgggjg and prescription medicines only as told by [...] provider. Document Revised: 08/29/2022 Document Reviewed: 08/30/2019 [employer] Patient Education 2022 [employer]. Follow Up Care 03/30/2023 15:25:42 With:Krystle Ireland Address: [address] [place] [address], [address] [facility] (1) When:04/02/2023 16:20:27 Comments:Follow-up with your primary care provider in 3 to 5 days. If symptoms worsen, do not improve, or new symptoms arise please report back to emergency department for further evaluation. [facility]11-27-2023 Hospital Discharge instructions* Discharge Instructions* Lavinia Potter MD - 03/24/2023 7:36 AM EST FACIAL PLASTIC SURGERY POSTOPERATIVE INSTRUCTIONS NASAL SURGERY Important Phone Numbers Dr. Thiago Cuellar: [phone] Debbie Bowden R.N. Evenings/Weekends Emergency: [phone] - please ask for the ENT resident [...] medical attention if you develop fever greater rwvv212 degrees, excessive bleeding, excessive pain that is [...] your next scheduled visit. documented in this [facility] Work Phone: 1(937) 148-875011-14-2023 Hospital Discharge instructions Follow Up Care 03/11/2023 13:00:37 With:Krystle Ireland CNP Address: [address] [place] [address], [address] [place] [id number]- When: Unknown [facility] 11-10-2023 Note* ADRIANA/BRIGHT Hurley&P - [...] valve repair, reconstruction rhinoplasty on 03/24/2023 at [facility]. ACTIVE PROBLEMS Patient Active Problem List Diagnosis [...] pounds; BMI: 24.09 LABS CHEMISTRY COMMON GROUP [facility]07/20/2021 Component 07/20/2021 07/20/2021 07/20/2021 07/20/2021 07/19/2021 [...] -- -- -- >90.0 EGFR IF NonAfrican Senegalese -- -- -- -- -- >90.0 Calcium -- -- -- -- -- 7.6 Low Total Protein -- -- -- -- -- 6.3 POC Glucose 114 High 148 High 109 High 184 High 112 High -- CELL COUNT AND DIFFERENTIATION GROUP [facility]07/19/2021 Component 07/19/2021 WBC 21.9 High RBC 4.05 Hemoglobin 12.1 Hematocrit 36.3 MCV 89.5 MCH 29.9 MCHC 33.4 RDW 14.7 High Platelets 381 MPV 8.1 IMAGING none ASSESSMENT/PLAN Nasal obstructive breathing Septoplasty, inferior turbinate reductions, nasal valve repair, reconstruction rhinoplasty This note was created in part upon personal review of patient's medical records. [facility] Work Phone: 1(260) 353-715711-10-2023 Miscellaneous Notes* CPM/PAT H&P - Neisha Desouza [...] valve repair, reconstruction rhinoplasty on 03/24/2023 at [facility]. ACTIVE PROBLEMS Patient Active Problem List Diagnosis [...] pounds; BMI: 24.09 LABS CHEMISTRY COMMON GROUP [facility]07/20/2021 Component 07/20/2021 07/20/2021 07/20/2021 07/20/2021 07/19/2021 [...] -- -- -- >90.0 EGFR IF NonAfrican Senegalese -- -- -- -- -- >90.0 Calcium -- -- -- -- -- 7.6 Low Total Protein -- -- -- -- -- 6.3 POC Glucose 114 High 148 High 109 High 184 High 112 High -- CELL COUNT AND DIFFERENTIATION GROUP [facility]07/19/2021 Component 07/19/2021 WBC 21.9 High RBC [...] Checklist Your surgery has been scheduled at [facility] at [address] in [place], [place], [facility], [address], in the [facility]. Parking is to the left of the [...] call by 3:00 pm you may call [phone] between the hours of 3:00 and 4:00 [...] *If you need help with quitting, call 8-614-ABHU-NOW. Alcohol: *No alcoholic beverages for 48 hours before surgery. AFTER OUTPATIENT SURGERY: *A responsible adult MUST accompany you at the time of discharge and stay with you for 24 hours after your surgery. *You may NOT drive yourself home after surgery. *You may use a taxi or ride sharing service ([employer], [employer]) to return home ONLY if you are [...] regarding these preoperative instructions you may call [phone]. If you have questions regarding you surgical procedure, or post- operative care/recovery please call yoursurgeon's office. Link to [facility] [employer] [email or web address] documented in this [facility] Work Phone: [phone]) 415-369211-10-2023 Note* Preprocedure Instructions - Neisha Desouza PA-C - 03/07/2023 9:48 AM EST No outpatient medications have been marked as taking for the 03/24/23 encounter (Hospital Encounter). Pre-Op Instructions & Checklist Your surgery has been scheduled at [facility] at [address] [place], [address], [address], in the [facility]. Parking is to the left [...] call by 3:00 pm you may call [phone] between the hours of 3:00 and 4:00 [...] *If you need help with quitting, call 4-273-YDOK-NOW. Alcohol: *No alcoholic beverages for 48 hours before surgery. AFTER OUTPATIENT SURGERY: *A responsible adult MUST accompany you at the time of discharge and stay with you for 24 hours after your surgery. *You may NOT drive yourself home after surgery. *You may use a taxi or ride sharing service ([employer], [employer]) to return home ONLY if you are [...] regarding these preoperative instructions you may call [phone]. If you have questions regarding you surgical procedure, or post- operative care/recovery please call yoursurgeon's office. Link to [facility] [employer] [email or web address] [facility] Work Phone: 1(591) 301-560110-12-2023 History of Present illness Narrative* Thiago Cuellar [...] turbinate reduction with lateralization. documented in this [facility] Work Phone: 1(250) 712-382009-29-2023 Hospital Discharge instructions Patient Education 01/24/2023 10:02:23 [...] home: Managing pain, stiffness, and swelling Take cuhx-qdp-oinivfk and prescription medicines only as told by [...] each day. Do not sit, drive, or crossing gateman one place for more than 30 minutes [...] put less stress on your back. Take ytzh-jfw-cmgoxph and prescription medicines only as told by your health care provider, and apply heat or ice as told. This information is not intended to replace advice given to you by your health care provider. Make sure you discuss any questions you have with your health care provider. Document Revised: 07/06/2021 Document Reviewed: 07/06/2021 [employer] Patient Education 2022 [employer]. 01/24/2023 10:00:27 Acute Back Pain, Adult Acute [...] home: Managing pain, stiffness, and swelling Take guow-vvw-nnurgvz and prescription medicines only as told by [...] each day. Do not sit, drive, or crossing gateman one place for more than 30 minutes [...] put less stress on your back. Take ixtj-ixw-zstsrix and prescription medicines only as told by your health care provider, and apply heat or ice as told. This information is not intended to replace advice given to you by your health care provider. Make sure you discuss any questions you have with your health care provider. Document Revised: 07/06/2021 Document Reviewed: 07/06/2021 [employer] Patient Education 2022 [employer]. Follow Up Care 01/24/2023 09:07:50 With:Krystle Ireland CNP Address: [address] [place] [address], [facility] [address] [place] [address]- When: Unknown With:Krystle Ireland CNP Address: [address] [place] [address], [address] [address]- When: Unknown [facility] 09-20-2023 Hospital Discharge instructions Patient [...] home: Managing pain, stiffness, and swelling Take gecy-aan-javgijr and prescription medicines only as told by [...] each day. Do not sit, drive, or crossing gateman one place for more than 30 minutes [...] put less stress on your back. Take yyub-syn-rilczwa and prescription medicines only as told by your health care provider, and apply heat or ice as told. This information is not intended to replace advice given to you by your health care provider. Make sure you discuss any questions you have with your health care provider. Document Revised: 07/06/2021 Document Reviewed: 07/06/2021 [employer] Patient Education 2022 [employer]. Follow Up Care 01/15/2023 13:09:14 With:Krystle Ireland CNP Address: [address] [place] [address], [facility] [address] [place] [address]- When: Unknown [facility] 03-08-2023 Evaluation + Plan noteExtracted [...] XR Spine Lumbosacral Minimum 4 Views 06/26/22 [facility]03-08-2023 Hospital Discharge instructions Patient Education 07/03/2022 09:35:19 [...] This condition may be caused by: A carburizing furnace operator the eye. A gritty or irritating [...] in diseases and conditions of the eye (pin sticker). This condition may be diagnosed based on your medical history, symptoms, and an eye exam. Before the eye exam, numbing drops may be put into your eye. You may also have dye put in your eye with a dropper or a small paper strip. The dye makes the abrasion easy to see when your pin sticker examines your eye with a light. Your pin sticker may look at your eye through an [...] if you start to feel better. Take rmwc-klh-najaqds and prescription medicines only as told by your health care provider. Ask your health care provider if the medicine prescribed to you: ?Requires you to avoid driving or using heavy machinery. ?Can cause constipation. You may need to take these actions to prevent or treat constipation: ?Drink enough fluid to keep your urine pale yellow. ?Take xdbr-ehw-gqctrns or prescription medicines. ?Eat foods that are [...] wearing an eye patch. Your ability to plastic block boiler reliner distances will be impaired. ?Follow instructions from [...] machinery while wearing it. Your ability to plastic block boiler reliner distances will be impaired. Let your health care provider know if your symptoms continue for more than 2 days. This information is not intended to replace advice given to you by your health care provider. Make sure you discuss any questions you have with your health care provider. Document Released: 04/11/2001 Document Revised: 08/20/2019 Document Reviewed: 08/20/2019 [employer] Patient Education 2019 [employer]. Follow Up Care 07/03/2022 08:23:25 With:Gayla Dunbar Address: [facility] [address] [place] [address] [address] [place] [address]- Business (1) When:07/06/2022 09:34:59 Comments:Follow-up with ophthalmology With:Krystle Ireland Address: [address] [place] [address], [address] [place] [address]- Business (1) When:Within 3 Day(s) [facility]03-01-2023 Evaluation + Plan note Future Scheduled Tests Radiology* XR Spine Lumbosacral Minimum 4 Views 06/26/22 [facility]05-20-2022 Hospital Discharge instructions Patient Education 09/14/2021 19:56:26 Abdominal Pain, Adult, Siqd-he-Mnxz Abdominal Pain, Adult Many things can cause belly (abdominal) pain. Most times, belly pain is not dangerous. Many cases of belly pain can be watched and treated at home. Sometimes, though, belly pain is serious. Your doctor will try to find the cause of your belly pain. Follow these instructions at home: Medicines Take gusn-ljf-ljxsrza and prescription medicines only as told by [...] your belly pain for any changes. Take ysoc-eae-xgvdtfk and prescription medicines only as told by [...] 09/30/2008 Document Revised: 08/23/2019 Document Reviewed: 08/23/2019 [employer] Patient Education 2020 [employer]. 09/14/2021 18:04:24 Burn Care, Adult, Lpue-jf-Dwgc Burn Care, Adult A burn is an [...] ?Pus or a bad smell. Medicine Take gjsk-wjz-hsedskd and prescription medicines only as told by [...] 01/21/2009 Document Revised: 08/04/2019 Document Reviewed: 10/01/2016 [employer] Patient Education 2020 [employer]. Follow Up Care 09/14/2021 17:36:21 With:Beka SPICER Krystle L Address: [address] [facility], [address] [place] [address] When:09/17/2021 With:Shiela DC, Miguel Angel Swan, [facility] Address: [address] [place], [place] [id number] When:2 to 4 days [facility]03-25-2022 Note Attestation signed by Misti Ziegler MD at 07/21/2021 8:31 AM [facility] See note from today. The patient will follow up in [place] with Dr Antonio and precautions were addressed Less than 30 minutes spent Misti Ziegler MD Department of Obstetrics and Gynecology [facility] Discharge Summary Admission on 07/18/2021 11:34 PM Alejandra Real is a 25 y.o. at 33w6d who was admitted for tPTL. Patient transferred from [facility] after making change from 1-->3cm after office visit. At OSH received BMZx1, PCN, terbutaline x3, 20mg procardia, and magnesium sulfate. Abruption labs were obtained and negative. Upon admission to [facility] patient was unchanged and CTX q3min. Patient was started on Procardia 10mg q6hr until she was 34w0d. BMZx2 was administered on 07/19. A growth US was obtained 07/19 and showed EFW 2494g (57%ile) with normal DAGOBERTO. Pt was uncomfortable enough on arrival and received epidural, however did not make any cervical bladder changer he course of a day and [...] Threatened Labor Follow up appointment with your doctor/hazmat cdl driver - Keep next scheduled appointment Activity - Off feet as much as possible Call your doctor/hazmat cdl driver if you have: - leaking fluid - vaginal bleeding - regular contractions: Every 5 minutes or closer for one hour - decreased movement - worsening abdominal (belly) pain - headache, blurry vision, increased swelling, upper abdominal pain Renetta Lam, DO on 07/20/2021 at 3:48 [facility]03-25-2022 Hospital Discharge instructions* Instructions* Tera Martin MD - 07/20/2021 Follow up appointment with your doctor/hazmat cdl driver - call your assistant professor of dietetics for follow up within the next week Activity - Normal Activity, however no heavy lifting or intercourse Call your doctor/hazmat cdl driver if you have: - leaking fluid - [...] related visit on 07/20/21. 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 [...] she needs to push. SVE remains unchanged, -3 and does not feel like a laboring [...] AM EDT cM/(Farideh) tPTL documented in this [facility] Work Phone: Evaluation + Plan note No data available for this section [facility] Future Appointments Appointment Date:07/18/2022 11:00:00 AM Scheduled Provider: Location:FT.CARDIO Appointment Type:CV Echo (FT) Future Scheduled Tests Radiology* Echo Transthoracic Complete 07/18/22 * XR Spine Lumbosacral Minimum 4 Views 06/26/22 [facility] Evaluation + Plan note Future Appointments Appointment Date:09/27/2022 09:00:00 AM Scheduled Provider: Location:.[facility] Appointment Type:CV Echo (FT) Future Scheduled Tests Radiology* Echo Transthoracic Complete 09/27/22 * XR Spine Lumbosacral Minimum 4 Views 06/26/22 [facility] Future Appointments Appointment Date:05/13/2023 10:00:00 AM Scheduled Provider: Location:.PHYSICAL [place] Appointment Type:PT Eval (FT) Future Scheduled Tests Radiology* XR Spine Lumbosacral Minimum 4 Views 06/26/22 [facility] evaluation + Plan note Future Appointments Appointment Date:05/28/2023 01:45:00 PM Scheduled Provider: Location:.PHYSICAL [place] Appointment Type:PT Eval (FT) Future Scheduled Tests Radiology* XR Spine Lumbosacral Minimum 4 Views 06/26/22 [facility] Future Appointments Appointment Date:06/17/2023 10:15:00 AM Scheduled Provider: Location:.PHYSICAL [place] Appointment Type:PT 45 (FT) Appointment Date:06/18/2023 11:00:00 AM Scheduled Provider: Location:.PHYSICAL [place] Appointment Type:PT 45 (FT) Appointment Date:06/20/2023 01:00:00 PM Scheduled Provider: Location:.PHYSICAL [place] Appointment Type:PT Re-Eval 45 (FT) Future Scheduled Tests Radiology* XR Spine Lumbosacral Minimum 4 Views 06/26/22 [facility] Future Appointments Appointment Date:07/08/2023 08:45:00 AM Scheduled Provider: Location:.PH[place]ICAL [place] Appointment Type:PT Re-Eval 45 (FT) [facility] Evaluation + Plan note Future Appointments Appointment Date:07/08/2023 08:45:00 AM Scheduled Provider: Location:.PHYSICAL [place] Appointment Type:PT Re-Eval 45 (FT) Diagnostic Tests Pending * Urine Culture 07/07/23 [facility] Future Appointments Appointment Date:08/04/2023 11:00:00 AM Scheduled Provider: Location:.CARDIO Appointment Type:CV Holter/Event (FT) Appointment Date:08/06/2023 07:00:00 AM Scheduled Provider: Location:.ULTRASOUND Appointment Type:US Abdominal/Pelvis (FT) Future Scheduled Tests Radiology* US Abdomen Complete 08/06/23 [facility] Future Appointments Appointment Date:08/06/2023 07:00:00 AM Scheduled Provider: Location:.[facility] Appointment Type:US Abdominal/Pelvis (FT) Future Scheduled Tests Radiology* US Pelvis Non-OB Complete 08/06/23 * US Transvaginal [facility]-OB [facility] Future [facility]ments Appointment Date:11/03/2023 10:45:00 AM Scheduled Provider:Fatoumata Gooden MD [facility] Appointment Type:[facility] (FT[facility] Future Appointments Appointment Date:11/03/2023 10:45:00 AM Scheduled Provider:Fatoumata Gooden MD Location[facility] Appointment Type:Vascular Follow Up (FT) Appointment Date:11/17/2023 01:45:00 PM Scheduled Provider:Cristóbal Granados DO Location:.[facility] [place] Appointment Type:[facility] Management - New (FT) [facility] Future Appointments Appointment Date:11/17/2023 01:45:00 PM Scheduled Provider:Cristóbal Granados DO Location[facility] [place] Appointment Type:[facility] Management - New (FT[facility] Future Appointments Appointment Date:11/27/2023 08:15:00 AM Scheduled Provider:Cristóbal Granados DO Location:.[facility] [place] Appointment Type:Pain Management - New () [facility] + Plan note Future Appointments Appointment Date:11/27/2023 08:15:00 AM Scheduled Provider:Cristóbal Granados DO Location:.[facility] [place] Appointment Type:Pain Management - New (FT) Diagnostic Tests Pending * RPR with Conf Rfx 11/24/23 * HIV Screen 4th Generation wRfx 11/24/23 * Acute Hepatitis A B C Panel 11/24/23 [facility] Evaluation note* Diagnosis Threatened labor, antepartum Threatened premature labor, antepartum documented in this encounter [facility] Work Phone: Evaluation note* Diagnosis Difficulty breathing- Primary Other dyspnea and respiratory abnormality Nasal septal deviation Deviated nasal septum Hypertrophy of inferior nasal turbinate Collapse of nasal valve Nasal congestion Other diseases of nasal cavity and sinuses Deviated septum Deviated nasal septum documented in this encounter [facility] Work Phone: Evaluation note* Diagnosis Deviated septum- [...] inferior nasal turbinate documented in this encounter [facility] Work Phone: Evaluation note* Diagnosis Deviated septum- Primary Deviated nasal septum Nasal congestion Other diseases of nasal cavity and sinuses Difficulty breathing Other dyspnea and respiratory abnormality Collapse of nasal valve Hypertrophy of inferior nasal turbinate documented in this encounter [facility] Work Phone: Evaluation noteNo assessment information available [facility] Work Phone: Hospital Discharge instructions No data available for this section [facility] Additional Instructions Continue taking your Naprosyn and Tylenol for minor pain Weldon for severe pain You cannot work or drive when taking Weldon Follow-up with your DEPUTY [employer]RE CHIEF call tomorrow for 7-year-old here appointment Return here if any problems persist or worsen [facility] Work [facility]: Hospital Discharge instructions Additional Instructions Take 1 hydrocodone every 6 hours for severe pain Continue the other medications as needed Follow-up with the specialist as scheduled Return to the ER for high fever vomiting more severe pain or any other concerns [facility] Work Phone: Hospital Discharge instructions Additional Instructions If your symptoms return/worsen or you develop any further concerns or symptoms please see your doctor or return to the emergency department immediately.[facility] Work Phone: Hospital Discharge instructions Additional Instructions 1. Must follow up with pcp for any additional tramadol 2. Return to ER for any problems[facility] Work Phone: Progress note No data available for this section [facility] Advance Directives No Advanced Directives Records [...] of nose [M95.0] Nasal congestion [R09.81] Procedures IN SEPTOPLASTY/SUBMUCOUS RESECJ W/WO CARTILAGE GRF IN RHINOPLASTY PRIMARY W/MAJOR SEPTAL REPAIR IN REPAIR NASAL VESTIBULAR STENOSIS IN SUBMUCOUS RESCJ INFERIOR TURBINATE PRTL/COMPL IN FRACTURE NASAL INFERIOR TURBINATE THERAPEUTIC Septoplasty, Inferior turbinate reduction, Nasal valve repair, Reconstructive rhinoplasty; CASE LENGTH= 2.5 HOURS Reconstructive rhinoplasty Repair Nasal Valve Excision Nasal Turbinate Fracture [place] [address] [place] [address] [facility] [address] [place] [address] Referral ID Status Reason Start Date Expiration Date Visits Re quested Visits Authorized [id number] 1 1 Reason Comments Post-op Visit Scheduled [...] 07/19/21 at 2200 0213 (Given - Provider: Dorotyh Hanks, WINNIE)0758 (Given - Provider: Megha Watts [...] RN)1048 (New Bag - Provider: Sil Wade, RN)1118 (Stopped - Provider: Sil Wade, RN)1429 (New [...] 0801 (Given - Provider: Graciela Kathleen RN) sodium chloride flush 0.9 % injection 10 [...] mg (COMPLETED) 40 mg, oral, Once, On Mon 23 at 0715, For 1 dose, Preprocedure 0724 [...] section and content) DATE CREATED AUTHOR 07/29/2021 [facility] [place] DATE CREATED AUTHOR AUTHOR'S ORGANIZ ATION 04/07/2023 [facility] DATE CREATED AUTHOR AUTHOR'S ORGANIZ ATION 05/04/[address] [place] [address] Ambulatory DATE CREATED AUTHOR AUTHOR'S ORGANIZ ATION 08/27/2023 [facility] DATE CREATED AUTHOR AUTHOR'S ORGANIZ ATION 08/30/2023 [facility] DATE CREATED AUTHOR AUTHOR'S ORGANIZ ATION 09/19/2023 [facility] DATE CREATED AUTHOR AUTHOR'S ORGANIZ ATION 09/21/2023 [facility] DATE CREATED AUTHOR AUTHOR'S ORGANIZ ATION 09/22/2023 [facility] DATE CREATED AUTHOR AUTHOR'S ORGANIZ ATION 09/25/2023 [facility] DATE CREATED AUTHOR AUTHOR'S ORGANIZ ATION 09/26/2023 [facility] DATE CREATED AUTHOR AUTHOR'S ORGANIZ ATION 09/27/2023 [facility] DATE CREATED AUTHOR AUTHOR'S ORGANIZ ATION 09/28/2023 [facility] DATE CREATED AUTHOR AUTHOR'S ORGANIZ ATION 10/03/2023 [facility] DATE CREATED AUTHOR AUTHOR'S ORGANIZ ATION 10/05/2023 [facility] DATE CREATED AUTHOR AUTHOR'S ORGANIZ ATION 10/19/2023 [facility] DATE CREATED AUTHOR AUTHOR'S ORGANIZ ATION 10/23/2023 [facility] DATE CREATED AUTHOR AUTHOR'S ORGANIZ ATION 10/25/2023 [facility] DATE CREATED AUTHOR AUTHOR'S ORGANIZ ATION 10/31/2023 [facility] DATE CREATED AUTHOR AUTHOR'S ORGANIZ ATION 11/03/2023 [facility] DATE CREATED AUTHOR AUTHOR'S ORGANIZ ATION 11/20/2023 [facility] DATE CREATED AUTHOR AUTHOR'S ORGANIZ ATION 11/28/2023 [facility] DATE CREATED AUTHOR AUTHOR'S ORGANIZ ATION 12/02/2023 [facility] DATE CREATED AUTHOR AUTHOR'S ORGANIZ ATION 12/04/2023 [facility] Patient Care team informatio n (unrecognized section and content) 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 Relationship Specialty Start Date End Date Gilbert Valverde DO [address] [place] [address] PCP - General Family Medicine 02/06/23 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 Relationship Specialty Start Date End Date LinkGilbert DO PCP - General Family Medicine 02/06/23 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 Relationship Specialty Start Date End Date LinkGilbert PCP - General Family Medicine 02/06/23 Team Status: Active Member Role Status Dates Krystle Ireland Primary Care Provider Active Team Status: Inactive Member Role Status Dates Satish Dean PA-C Emergency Provider Active Start: August 05, 2023 End: August 05, 2023 Krystle Ireland Primary Care Provider Active Star t: August 05, 2023 End: August 05, 2023 Team Status: Inactive Member Role Status Dates Krystle Ireland Primary Care Provider Active Star t: August 20, 2023 End: August 20, 2023 Janeth Johnson APRN Emergency Provider Active Start: August 20, 2023 End: August 20, 2023 Team Status: Inactive Member Role Status Dates Krystle Ireland Primary Care Provider Active Star t: September 04, 2023 End: September 04, 2023 Felisa Tay [facility] Emergency Provider Active Start: September 04, 2023 End: September 04, 2023 Team Status: Inactive Member Role Status Dates Krystle Ireland Primary Care Provider Active Star t: September 27, 2023 End: September 27, 2023 Neptali Esquivel DO Emergency Provider Active Start: September 27, 2023 End: September 27, 2023 Team Status: Inactive Member Role Status Dates Krystle Ireland Primary Care Provider Active Star t: [...] BE BASED ON THE PRIMARY CLINICAL RECORDS. [facility] [facility]. provides no warranty or guarantee of the accuracy or completeness of information in this document.
--- NOTE | 2023-12-05 07:43 | ED.GENADUL1 ---
HPI HPI - General Adult General Chief complaint: Urogenital-Female Stated complaint: PELVIC PAIN Time Seen by Provider: 12/05/23 07:25 Source: patient Mode of arrival: walk-in History of Present Illness HPI narrative: 28-year-old female presents for abdominal pain. Its on the left lower part of her abdomen and she states it is due to pelvic congestion syndrome. She has had a workup for this and is seeing a vascular surgeon. Very recently she was approved for the surgery and she has an appointment with vascular surgeon next week to schedule it. The pain is the same as what she has been going through for several months. It is moderate. She had been on tramadol but does not have anymore. No fever or trauma or dysuria. Related Data Home Medications ?Medication ?Instructions ?Recorded ?Confirmed baclofen 10 mg tablet 10 mg PO BID 06/28/23 11/26/23 ferrous sulfate 325 mg (65 mg 325 mg PO DAILY 06/28/23 06/28/23 iron) tablet (Feosol) Previous Rx's ?Medication ?Instructions ?Recorded dicyclomine 20 mg tablet 20 mg PO TID PRN abdominal pain #7 06/28/23 tabs ondansetron 4 mg disintegrating 4 mg PO Q4H PRN nausea and 06/28/23 tablet vomiting 3 days #6 tabs ondansetron 4 mg disintegrating 4 mg PO Q8H PRN nausea and 12/02/23 tablet vomiting 4 days #16 tabs tramadol 50 mg tablet 50 mg PO Q8H PRN pain 5 days #20 12/05/23 tabs Allergies Allergy/AdvReac Type Severity Reaction Status Date / Time No Known Drug Allergies Allergy Verified 12/02/23 06:46 Opioid HPI Opioid Management Most Recent Opioid Data: Last Pain Scale 5 11/26/23 07:05 Last MAR Pain Assessment 12/05/23 08:10 Review of Systems ROS Narrative A ten point review of systems is negative except as noted above. PFSH PFSH Social History Smoking status: Former smoker Exam Narrative Exam Narrative: Nurses note and vital signs reviewed and patient is not hypoxic. General: The patient appears well and in no apparent distress. Patient is resting comfortably on cart. Skin: Warm, dry, no pallor noted. There is no rash noted. Head: Normocephalic, atraumatic Eye: Normal conjunctiva, no drainage Ears, Nose, Mouth, and Throat: oral mucosa is moist. Nares patent. Cardiovascular: Regular Rate and Rhythm Respiratory: Patient is in no distress, no accessory muscle use, lungs are clear to auscultation, no wheezing, rales or rhonchi Back: non-tender GI: Mild tenderness in the left lower quadrant without mass. No tenderness elsewhere. Musculoskeletal: The patient has no evidence of calf tenderness, no pitting edema, symmetrical pulses noted bilaterally Neurological: A&O, normal speech Psychiatric: Cooperative Constitutional Vital Signs, click to edit/add: Last Vital Signs Temp 98.9 F 12/05/23 07:11 Pulse 75 12/05/23 07:11 Resp 18 12/05/23 07:11 BP 124/81 12/05/23 07:11 Pulse Ox 100 12/05/23 07:11 O2 Del Method Room Air 12/05/23 07:11 Course Vital Signs Vital signs: Vital Signs Temperature 98.9 F 12/05/23 07:11 Pulse Rate 75 12/05/23 07:11 Respiratory Rate 18 12/05/23 07:11 Blood Pressure 124/81 12/05/23 07:11 Pulse Oximetry 100 12/05/23 07:11 Oxygen Delivery Method Room Air 12/05/23 07:11 Temperature 98.9 F 12/05/23 07:11 Pulse Rate 75 12/05/23 07:11 Respiratory Rate 18 12/05/23 07:11 Blood Pressure 124/81 12/05/23 07:11 Pulse Oximetry 100 12/05/23 07:11 Oxygen Delivery Method Room Air 12/05/23 07:11 Medical Decision Making MDM Narrative Medical decision making narrative: Her workup is negative including test. She was sent a prescription for Ultram and was given Toradol here. Treatment diagnosis and follow-up were discussed with the patient. Differential Diagnosis Differential Diagnosis: Chronic abdominal pain, , UTI Lab Data Lab results reviewed: Yes I reviewed the patient's lab results Labs: Lab Results 12/05/23 Range/Units 07:26 WBC 11.0 (4.0-11.0) 10^3/uL RBC 4.46 (4.20-5.40) 10^6/uL Hgb 13.7 (12.0-16.0) g/dL Hct 41.5 (36.0-48.0) % MCV 93.0 (81.0-99.0) fL MCH 30.7 (26.7-34.0) pg MCHC 33.0 (29.9-35.2) g/dL RDW 12.1 (11.0-15.0) % Plt Count 410 (150-450) 10^3/uL MPV 9.5 (9.5-13.5) fL Neut % (Auto) 52.8 (43.0-75.0) % Lymph % (Auto) 38.5 (20.5-60.0) % [place] % (Auto) 6.6 (1.7-12.0) % Eos % (Auto) 1.4 (0.9-7.0) % Baso % (Auto) 0.3 (0.2-2.0) % Neut # (Auto) 5.8 (1.4-6.5) 10^3/uL Lymph # (Auto) 4.2 H (1.2-3.8) 10^3/uL [place] # (Auto) 0.7 (0.3-0.8) 10^3/uL Eos # (Auto) 0.2 (0.0-0.7) 10^3/uL Baso # (Auto) 0.0 (0.0-0.1) 10^3/uL Abs Immat Gran (auto) 0.04 H (0.00-0.03) 10^3/uL Imm/Tot Granulo (auto) 0.4 (0.0-0.5) % Sodium 141 (136-145) mmol/L Potassium 3.2 L (3.5-5.1) mmol/L Chloride 104 (98-107) mmol/L Carbon Dioxide 30.7 (21.0-32.0) mmol/L Anion Gap 9.5 BUN 6.0 L (7.0-18.0) mg/dL Creatinine 0.80 (0.55-1.02) mg/dL Est GFR ( Amer) >60 (>=60) Est GFR (Non-Af Amer) >60 (>=60) BUN/Creatinine Ratio 7.5 Glucose 104 (74-106) mg/dL Calcium 9.0 (8.5-10.1) mg/dL Serum HCG, Qual Negative (NEGATIVE) Urine Color Lt. yellow (YELLOW) Urine Clarity Clear (CLEAR) Urine pH 6.0 (5.0-9.0) Ur Specific [place] 1.025 (1.005-1.025) Urine Protein Negative (NEG/TRACE) mg/dL Urine Glucose (UA) Negative (NEGATIVE) mg/dL Urine Ketones Negative (NEGATIVE) mg/dL Urine Occult Blood Negative (NEGATIVE) Urine Nitrite Negative (NEGATIVE) Urine Bilirubin Negative (NEGATIVE) Urine Urobilinogen 1.0 (0.2-1.0) EU/dL Ur Leukocyte Esterase Negative (NEGATIVE) Discharge Plan Discharge Stand Alone Forms: Portal Instructions Chief Complaint: Urogenital-Female Clinical Impression: Chronic abdominal pain, Pelvic congestion syndrome Patient Disposition: Home, Self-Care Time of Disposition Decision: 08:29 Condition: Good Mode of Transportation: Private Vehicle Prescriptions / Home Meds: New tramadol 50 mg tablet 50 mg PO Q8H PRN (Reason: pain) 5 Days Qty: 20 0RF No Action baclofen 10 mg tablet 10 mg PO BID ferrous sulfate [Feosol] 325 mg (65 mg iron) tablet 325 mg PO DAILY dicyclomine 20 mg tablet 20 mg PO TID PRN (Reason: abdominal pain) Qty: 7 0RF ondansetron 4 mg tablet,disintegrating 4 mg PO Q4H PRN (Reason: nausea and vomiting) 3 Days Qty: 6 0RF ondansetron 4 mg tablet,disintegrating 4 mg PO Q8H PRN (Reason: nausea and vomiting) 4 Days Qty: 16 0RF Print Language: Persian Instructions: Abdominal Pain (ED) Referrals: Physician,Non-Staff, MD [Primary Care Provider] - 1 week
[2023-12-05 08:02] LABS: Basophils Percent Auto 0.3 % (0.2-2.0); Eosinophils Absolute Auto 0.2 10^3/uL (0.0-0.7); Eosinophils Percent Auto 1.4 % (0.9-7.0); Hematocrit 41.5 % (36.0-48.0); Hemoglobin 13.7 g/dL (12.0-16.0); Immature Granulocytes Abs Auto 0.04 10^3/uL (0.00-0.03); Immature Granulocytes Pct Auto 0.4 % (0.0-0.5); Lymphocytes Absolute Auto 4.2 10^3/uL (1.2-3.8); Lymphocytes Percent Auto 38.5 % (20.5-60.0); Mean Corpuscular Hemoglobin 30.7 pg (26.7-34.0); Mean Platelet Volume 9.5 fL (9.5-13.5); Monocytes Absolute Auto 0.7 10^3/uL (0.3-0.8); Monocytes Percent Auto 6.6 % (1.7-12.0); Neutrophils Absolute Auto 5.8 10^3/uL (1.4-6.5); Neutrophils Percent Auto 52.8 % (43.0-75.0); Platelet Count 410 10^3/uL (150-450); Red Blood Count 4.46 10^6/uL (4.20-5.40); Red Cell Distribution Width 12.1 % (11.0-15.0)
[2023-12-05 08:03] LABS: Anion Gap 9.5; BUN Creatinine Ratio 7.5; Carbon Dioxide 30.7 mmol/L (21.0-32.0); Chloride 104 mmol/L (98-107); Estimated GFR (African America >60 (>=60); Estimated GFR (Non-African Ame >60 (>=60); Glucose 104 mg/dL (74-106); Potassium 3.2 mmol/L (3.5-5.1); Sodium 141 mmol/L (136-145)
[2023-12-05 08:04] LABS: Bilirubin Urine NEGATIVE (NEGATIVE); Blood Urine NEGATIVE (NEGATIVE); Clarity Urine CLEAR (CLEAR); Color Urine LT. YELLOW (YELLOW); Glucose Urine UA NEGATIVE (NEGATIVE); Ketones Urine NEGATIVE (NEGATIVE); Leukocyte Esterase Urine NEGATIVE (NEGATIVE); Nitrite Urine NEGATIVE (NEGATIVE); Protein Urine NEGATIVE (NEG/TRACE); Specific Gravity Urine 1.025 (1.005-1.025)
[2023-12-05] MEDS: KETOROLAC TROMETHAMINE 30 MG/ML VIAL IVP (08:10)
[2023-12-05 08:23] LABS: HCG Qualitative NEGATIVE (NEGATIVE); Internal Control Within Normal Limits
[2023-12-05 09:13] LABS: Squamous Epithelial Cell Urine RARE #/LPF (NONE/RARE)
[2023-12-05 09:14] LABS: Mucus Urine NONE SEEN (NONE SEEN)
[2023-12-05 09:15] LABS: Bacteria Urine TRACE #/HPF (NONE SEEN); Cast Seen? NONE SEEN #/LPF (NONE SEEN); Crystals Seen? None Seen #/HPF (None Seen); RBC Urine 0-2 #/HPF (0-2); WBC Urine 0-2 #/HPF (NONE SEEN)
== END 2023-12-05 08:55 | disposition home or self-care (01) ==
PROVIDERS: Emergency Provider Emergency Medicine; Family Provider Family Medicine
DX: R10.9 Unspecified abdominal pain (principal); G89.29 Other chronic pain; N94.89 Other specified conditions associated with female genital organs and menstrual cycle; Z87.891 Personal history of nicotine dependence
CPT/HCPCS: 36415; 80048; 81001; 84703; 85025; 96374; 99284; J1885

== ENCOUNTER 2023-12-09 07:09 | Emergency (ER) | payer OTHER, SELFPAY ==
--- OUTSIDE RECORDS SUMMARY | 2023-12-09 07:17 | XMS_ITS | CCD ---
Author Organization [facility] Care Team Providers Care Oil Dispatcher Name Role Phone Unavailable Primary Care Provider UnavailKrystle Kennedy Primary Care Physician Gilbert Valverde DO Primary Care Provider Link Gilbert MARIA Primary Care Provider THIAGO CUELLAR Admitting Unavailable THIAGO CUELLAR Attending Unavailable GILBERT VALVERDE Primary Care Unavailable THIAGO CUELLAR Attending Unavailable GILBERT VALVERDE Primary Care Unavailable REGI HUNTER Attending Unavailable GILBERT VALVERDE Primary Care Unavailable REGI HUNTER Attending Unavailable GILBERT VALVERDE Primary Care Unavailable Nancy Rose Primary Care Physician TI Dean Emergency Provider [phone] Krystle Ireland Primary Care Provider [phone] NADIA Johnson Emergency Provider [phone] ANABELA SAEZ Attending Unavailable SIVAN KONG Attending Unavailable SIVAN KONG Referring Unavailable GAYLA DUNBAR Attending Unavailable MIGUEL ANGEL PENNINGTON Referring Unavailable KRYSTLE IRELAND Primary Care Unavailable MIGUEL ANGEL ALEMAN Attending Unavailable Maggi, [facility]- Felisa Ayala Emergency Provider DO Vivian [...] 04, 2023 12:42pm Start: 07-07-2023 End: 07-10-2023 [place] 325 mg-5 mg oral table t 1 tab(s), Oral, q6hr for pain for 3 day(s), 12 tab(s), Refill(s) 0, [facility] #[id number], 160, cm, 07/07/23 11:13:00 EDT, Height/Length Dosing, 69.9, kg, 07/07/23 11:13:00 EDT, Weight Dosing Start Date: 07/07/23 Stop Date: 07/10/23 Status: Ordered Start: 06-29-2023 [place] 325 mg-5 mg oral tablet 1 tab(s), Oral, q4hr for pain, 5 tab(s), Refill(s) 0 Start Date: 06/29/23 Status: Ordered Start: 05-22-2023 [place] 325 mg-5 mg oral tablet 1 tab(s), Oral, q6hr as needed for pain, 10 tab(s), Refill(s) 0, [facility] #[id number], 160, cm, 05/22/23 6:23:00 EST, Height/Length Dosing, [...] day(s), 12 tab(s), Refill(s) 0, [facility] #[id number], 157, cm, 03/30/23 15:42:00 EST, Height/Length Dosing, [...] for 10 day(s), 20 tab(s), Refill(s) 0, [facility] #[id number], 157, cm, 04/11/23 11:07:00 EST, Height/Length Dosing, 57.6, kg, 04/11/23 11:07:00 EST, Weight Dosing Start Date: 04/11/23 Stop Date: 04/21/23 Status: Ordered azithromycin 250 mg oral tablet (2 sources) Macrolide Antimicrobial Start: azithromycin 250 mg Tab 250 mg, Oral, As Directed, # 6 tab(s), Refills(s) 0, Pharmacy: [facility] #[id number], 160, cm, 07/19/23 9:32:00 EDT, Height/Length Dosing, 65.7, kg, 07/19/23 9:32:00 EDT, Weight Dosing Start Date: 07/19/23 Status: Ordered azithromycin 250 mg Tab 5-day Dose Pack (Z-Gabriel) (1 source) Start: End: azithromycin 250 mg Tab 5-day Dose Pack (Z-Gabriel) = 1 packet(s), Oral, As Directed, as directed on package labeling, X 5 day(s), # 6 tab(s), Refills(s) 0, Pharmacy: [facility] #[id number], 160, cm, 06/14/23 8:56:00 EST, Height/Length Dosing, [...] BID, # 60 tab(s), Refills(s) 0, Pharmacy: [facility]/pharmacy #[id number], 162, cm, 05/11/23 11:33:00 EST, Height/Length Dosing, 61.9, kg, 05/11/23 11:33:00 EST, Weight Dosing Start Date: 05/11/23 Status: Ordered Start: 05-03-2023 End: 05-07-2023 take 1 tablet by mouth three times daily as needed for muscle spasms baclofen 10 mg Tab 10 mg = 1 tab(s), Oral, TID, PRN Spasm, X 4 day(s), # 12 tab(s), Refills(s) 0, Pharmacy: [facility] #[id number], 162, cm, 05/03/23 12:24:00 EST, Height/Length Dosing, 62.7, kg, 05/03/23 12:24:00 EST, Weight Dosing Start Date: 05/03/23 Stop Date: 05/07/23 Status: Ordered Start: 03-11-2023 End: 03-16-2023 take 1 tablet by mouth twice daily baclofen 5 mg oral tablet 5 mg = 1 tab(s), Oral, BID, X 5 day(s), # 10 tab(s), Refills(s) 0, Pharmacy: [facility] #[id number], 157, cm, 03/11/23 17:06:00 EST, Height/Length Dosing, 57.6, kg, 03/11/23 17:06:00 EST, Weight Dosing Start Date: 03/11/23 Stop Date: 03/16/23 Status: Ordered Start: 01-15-2023 End: 03-07-2023 take 1 tablet by mouth at bedtime baclofen 5 mg oral tablet 5 mg = 1 tab(s), Oral, Bedtime, # 12 tab(s), Refills(s) 0, Pharmacy: [facility] #[id number], 157, cm, 01/24/23 9:27:00 EDT, Height/Length Dosing, [...] at 125 mL/hr, C ONTINUOUS, Starting on [facility] 07/19/21 at 0130 cefdinir 300 mg oral [...] # 21 cap(s), Refills(s) 0, Pharmacy: [facility] #[id number], 157, cm, 11/09/22 14:16:00 EDT, Height/Length Dosing, [...] day(s), # 14 tab(s), Refills(s) 0, Pharmacy: [facility]/pharmacy #[id number], 160, cm, 11/02/23 14:02:00 EDT, [...] day(s), # 21 tab(s), Refills(s) 0, Pharmacy: [facility]/pharmacy #[id number], 160, cm, 08/10/23 11:41:00 EDT, Height/Length Dosing, 66, kg, 08/10/23 11:41:00 EDT, Weight Dosing Start Date: 08/10/23 Stop Date: 08/17/23 Status: Ordered Start: 07-26-2023 End: 09-24-2023 take 1 capsule by mouth four times daily as needed Bentyl 10 mg Cap 10 mg = 1 cap(s), Oral, QID, PRN Other (see comment), For abdominal cramping, # 12 cap(s), Refills(s) 0, Pharmacy: [facility]/pharmacy #[id number], 160, cm, 07/26/23 9:44:00 EDT, Height/Length Dosing, 61.7, kg, 07/26/23 9:44:00 EDT, Weight Dosing Start Date: 07/26/23 Status: Ordered Start: 05-31-2023 End: 06-07-2023 take 1 tablet by mouth three times daily dicyclomine 20 mg Tab 20 mg = 1 tab(s), Oral, TID, X 7 day(s), # 21 tab(s), Refills(s) 0, [id number], 160, cm, 05/31/23 8:12:00 EST, Height/Length Dosing, 67, kg, 05/31/23 8:12:00 EST, Weight Dosing Start Date: 05/31/23 Stop Date: 06/07/23 Status: Ordered diflunisal 500 mg oral tablet (1 source) Nonsteroidal Anti-inflammatory Drug Start: 11-29-2023 take 1 tablet by mouth every twelve hours diflunisal 500 mg Tab 500 mg = 1 tab(s), Oral, q12hr, # 20 tab(s), Refills(s) 0, Pharmacy: [facility]/pharmacy #[id number], 160, cm, 11/29/23 6:47:00 EDT, [...] Daily, # 30 tab(s), Refills(s) 1, Pharmacy: [facility]/pharmacy #[id number], 162, cm, 05/11/23 11:33:00 EST, Height/Length Dosing, 61.9, kg, 05/11/23 11:33:00 EST, Weight Dosing Start Date: 05/11/23 Status: Ordered methocarbamol 750 mg oral tablet (1 source) Muscle Relaxant Start: 11-29-2023 End: 12-06-2023 take 1 tablet by mouth three times daily Robaxin-750 oral tablet 750 mg = 1 tab(s), Oral, TID, X 7 day(s), # 21 tab(s), Refills(s) 0, Pharmacy: [facility]/pharmacy #[id number], 160, cm, 11/29/23 6:47:00 EDT, Height/Length Dosing, 60.8, kg, 11/29/23 6:47:00 EDT, Weight Dosing Start Date: 11/29/23 Stop Date: 12/06/23 Status: Ordered methylPREDNISolone 4 mg oral tablet (1 source) Corticosteroid Start: 07-19-2023 End: 07-25-2023 Medrol 4 mg Tab = 1 packet(s), Oral, As Directed, as directed on package labeling, X 6 day(s), # 21 tab(s), Refills(s) 0, Pharmacy: [facility] #[id number], 160, cm, 07/19/23 9:32:00 EDT, Height/Length Dosing, [...] day(s), # 10 cap(s), Refills(s) 0, Pharmacy: [facility]/pharmacy #[id number], 160, cm, 09/17/23 4:33:00 EDT, [...] day(s), # 10 tab(s), Refills(s) 0, Pharmacy: [facility]/pharmacy #[id number], 160, cm, 09/20/23 12:38:00 EDT, [...] day(s), # 21 tab(s), Refills(s) 0, [id number], 160, cm, 09/26/23 15:23:00 EDT, Height/Length Dosing, 65, kg, 09/26/23 15:23:00 EDT, Weight Dosing Start Date: 09/26/23 Stop Date: 10/03/23 Status: Ordered Start: 09-24-2023 End: 09-27-2023 take 1 tablet by mouth three times daily Pyridium 100 mg Tab 100 mg = 1 tab(s), Oral, TID, X 3 day(s), # 9 tab(s), Refills(s) 0, [id number], 160, cm, 09/24/23 15:37:00 EDT, Height/Length Dosing, 65, kg, 09/24/23 15:37:00 EDT, Weight Dosing Start Date: 09/24/23 Stop Date: 09/27/23 Status: Ordered Start: 09-17-2023 End: 09-20-2023 take 1 tablet by mouth three times daily Pyridium 200 mg Tab 200 mg = 1 tab(s), Oral, TID, X 3 day(s), # 9 tab(s), Refills(s) 0, [id number], 160, cm, 09/17/23 4:33:00 EDT, Height/Length Dosing, 65.4, kg, 09/17/23 4:33:00 EDT, Weight Dosing Start Date: 09/17/23 Stop Date: 09/20/23 Status: Ordered Start: 11-09-2022 End: 11-11-2022 take 1 tablet by mouth three times daily Pyridium 200 mg Tab 200 mg = 1 tab(s), Oral, TID, X 2 day(s), # 6 tab(s), Refills(s) 0, [facility][id number], 157, cm, 11/09/22 14:16:00 EDT, Height/Length Dosing, 62.9, kg, 11/09/22 14:16:00 EDT, Weight Dosing Start Date: 11/09/22 Stop Date: 11/11/22 Status: Ordered polyethylene glycol 3350 52677 mg powder for oral solution (1 source) [...] day(s), # 7 tab(s), Refills(s) 0, Pharmacy: [facility]/pharmacy #[id number], 160, cm, 11/26/23 10:31:00 EDT, Height/Length Dosing, 62, kg, 11/26/23 10:31:00 EDT, Weight Dosing Start Date: 11/26/23 Stop Date: 12/03/23 Status: Ordered Start: 10-31-2023 End: 11-05-2023 take 1 tablet by mouth once daily predniSONE 50 mg Tab 50 mg = 1 tab(s), Oral, Daily, X 5 day(s), # 5 tab(s), Refills(s) 0, Pharmacy: [facility]/pharmacy #[id number], 160, cm, 10/31/23 12:45:00 EDT, Height/Length Dosing, 63.2, kg, 10/31/23 12:45:00 EDT, Weight Dosing Start Date: 10/31/23 Stop Date: 11/05/23 Status: Ordered Start: 06-26-2022 End: 07-03-2022 take 3 tablets by mouth once daily predniSONE 20 mg Tab 60 mg = 3 tab(s), Oral, Daily, X 7 day(s), # 21 tab(s), Refills(s) 0, Pharmacy: [facility] #[id number], 157, cm, 06/26/22 14:20:00 EST, Height/Length Dosing, [...] (5 sources) Start: 03-24-2023 sodium chlorid e (Brooks Nasal) 0.65 % nasal spray Indications: Nasal [...] day(s), # 9 tab(s), Refills(s) 0, Pharmacy: [facility]/pharmacy #[id number], 160, cm, 11/24/23 11:59:00 EDT, Height/Length Dosing, 62, kg, 11/24/23 11:59:00 EDT, Weight Dosing Start Date: 11/24/23 Stop Date: 11/27/23 Status: Ordered Start: 10-02-2023 End: 10-28-2023 take 1 tablet by mouth every six hours as needed for pain traMADOL 50 mg Tab 50 mg = 1 tab(s), Oral, q6hr, PRN as needed for pain, # 7 tab(s), Refills(s) 0, Pharmacy: [facility]/pharmacy #[id number], 160, cm, 10/02/23 6:32:00 EDT, Height/Length Dosing, 67.7, kg, 10/02/23 6:32:00 EDT, Weight Dosing Start Date: 10/02/23 Status: Ordered Start: 09-24-2023 End: 09-27-2023 take 1 tablet by mouth every six hours as needed for pain traMADOL 50 mg Tab 50 mg = 1 tab(s), Oral, q6hr, PRN for pain, X 3 day(s), # 12 tab(s), Refills(s) 0, Pharmacy: [facility]/pharmacy #[id number], 160, cm, 09/24/23 15:37:00 EDT, Height/Length Dosing, 65, kg, 09/24/23 15:37:00 EDT, Weight Dosing Start Date: 09/24/23 Stop Date: 09/27/23 Status: Ordered Start: 09-20-2023 End: 09-23-2023 take 1 tablet by mouth every six hours Ultram 50 mg Tab 50 mg = 1 tab(s), Oral, q6hr, X 3 day(s), # 12 tab(s), Refills(s) 0, Pharmacy: [facility]acy #[id number], 160, cm, 09/20/23 12:38:00 EDT, Height/Length Dosing, 65.1, kg, 09/20/23 12:38:00 EDT, Weight Dosing Start Date: 09/20/23 Stop Date: 09/23/23 Status: Ordered Start: 09-14-2023 End: 09-19-2023 take 1 tablet by mouth every six hours as needed for pain traMADOL 50 mg Tab 50 mg = 1 tab(s), Oral, q6hr, PRN for pain, X 2 day(s), # 7 tab(s), Refills(s) 0, Pharmacy: [facility] #[id number], 160, cm, 09/17/23 4:33:00 EDT, Height/Length Dosing, 65.4, kg, 09/17/23 4:33:00 EDT, Weight Dosing Start Date: 09/17/23 Stop Date: 09/19/23 Status: Ordered Start: 08-05-2023 End: 08-20-2023 take 1 tablet by mouth every eight hours as needed for pain traMADOL 50 mg Tab 50 mg = 1 tab(s), Oral, q8hr, PRN as needed for pain, # 7 tab(s), Refills(s) 0, Pharmacy: [facility] #[id number], 160, cm, 08/14/23 14:48:00 EDT, [...] day(s), # 10 tab(s), Refills(s) 0, [facility][id number], 160, cm, 08/18/23 10:31:00 EDT, Height/Length Dosing, 64, kg, 08/18/23 10:31:00 EDT, Weight Dosing Start Date: 08/18/23 Stop Date: 08/21/23 Status: Ordered Start: 07-26-2023 End: 07-29-2023 take 1 tablet by mouth every twelve hours as needed for pain traMADOL 50 mg Tab 50 mg = 1 tab(s), Oral, q12hr, PRN for pain, X 3 day(s), # 6 tab(s), Refills(s) 0, Pharmacy: [facility] #[id number], 160, cm, 07/26/23 9:44:00 EDT, Height/Length Dosing, 61.7, kg, 07/26/23 9:44:00 EDT, Weight Dosing Start Date: 07/26/23 Stop Date: 07/29/23 Status: Ordered Start: 07-19-2023 End: 07-22-2023 take 1 tablet by mouth every six hours as needed for pain traMADOL 50 mg Tab 50 mg = 1 tab(s), Oral, q6hr, PRN for pain, X 3 day(s), # 12 tab(s), Refills(s) 0, [facility] #[id number], 160, cm, 07/19/23 9:32:00 EDT, Height/Length Dosing, 65.7, kg, 07/19/23 9:32:00 EDT, Weight Dosing Start Date: 07/19/23 Stop Date: 07/22/23 Status: Ordered Zofran ODT 4 mg Tab-Dis (20 sources) Start: 10-19-2023 take 1 tablet by mouth every eight hours as needed for nausea Zofran ODT 4 mg Tab-Dis 4 mg = 1 tab(s), Oral, q8hr, PRN Nausea/Vomiting, # 20 tab(s), Refills(s) 0, Pharmacy: [facility] #[id number], 160, cm, 10/19/23 12:58:00 EDT, Height/Length Dosing, 65, kg, 10/19/23 12:58:00 EDT, Weight Dosing Start Date: 10/19/23 Status: Ordered Start: 07-26-2023 take 1 tablet by amber th every eight hours as needed for nausea Zofran ODT 4 mg Tab-Dis 4 mg = 1 tab(s), Oral, q8hr, PRN Nausea/Vomiting, # 16 tab(s), Refills(s) 0, Pharmacy: [facility] #[id number], 160, cm, 07/26/23 9:44:00 EDT, Height/Length Dosing, 61.7, kg, 07/26/23 9:44:00 EDT, Weight Dosing Start Date: 07/26/23 Status: Ordered Start: 05-31-2023 take 1 tablet by amber th three times daily Zofran ODT 4 mg Tab-Dis 4 mg = 1 tab(s), Oral, TID, # 15 tab(s), Refills(s) 0, Pharmacy: [facility] #[id number], 160, cm, 05/31/23 8:12:00 EST, Height/Length Dosing, [...] day, # 14 tab(s), Refills(s) 0, Pharmacy: [facility] #[id number], 160, cm, 11/24/23 11:59:00 EDT, Height/Length Dosing, 62, kg, 11/24/23 11:59:00 EDT, Weight Dosing Start Date: 11/24/23 Status: Ordered Start: 06-14-2023 End: 09-04-2023 take 1 tablet by mouth twice daily Naprosyn 500 mg Tab 500 mg = 1 tab(s), Oral, BID, # 20 tab(s), Refills(s) 0, Pharmacy: [facility] #[id number], 160, cm, 06/14/23 8:56:00 EST, Height/Length Dosing, 65, kg, 06/14/23 8:56:00 EST, Weight Dosing Start Date: 06/14/23 Status: Ordered Start: 05-28-2023 naproxen 375 m g Tab Refills(s) 0 Start Date: 05/28/23 Status: Ordered Start: 04-11-2023 take 1 tablet by amber th every twelve hours naproxen 375 mg Tab 375 mg = 1 tab(s), Oral, q12hr, # 14 tab(s), Refills(s) 0, Pharmacy: [facility] #[id number], 157, cm, 04/11/23 11:07:00 EST, Height/Length Dosing, [...] 1 tablet, Oral, DAILY, First dose on [facility] 07/19/21 at 0900, Until Discontinued sertraline 100 [...] 2023 ED Clinical Summary ED Clinical Summary [address] [address] ED Clinical Summary Person Information Name: ALEJANDRA REAL [place] Age: 28 Years : 1995 Sex: Female Language: Swiss PCP: Krystle Ireland CNP Marital Status: Single Phone: [phone] MRN: Visit Id: Visit Reason: Medical problem [...] 07:25:53 ADDRESS: [address] [facility] [id number] PHYS DOC NOTES: MEDICAL INFORMATION: Prescriptions Given: New Medications [id number], [address] [place] [id number], [phone] diflunisal (diflunisal 500 mg Tab) 1 Tablets [...] Follow up: With: Address: When: Cristóbal Granados [address] [place] [address] Business (1) In 3 days 12/02/2023 With: Address: When: Krystle Ireland [address] [place] [address], [address] [place] [address] Business (1) In 3 days DIAGNOSIS: Chronic pain Normal [facility] ED Note-Physicianon 11-29-19 ED Note-Physician [...] q12hr, # 20 tab(s), Refills(s) 0, Pharmacy: [id number], 160, cm, 11/29/23 6:47:00 EDT, Height/Length Dosing, 60.8, kg, 11/29/23 6:47:00 EDT, Weight Dosing methocarbamol, 750 mg = 1 tab(s), Oral, TID, X 7 day(s), # 21 tab(s), Refills(s) 0, Pharmacy: [facility] #[id number], 160, cm, 11/29/23 6:47:00 EDT, Height/Length Dosing, 60.8, kg, 11/29/23 6:47:00 EDT, Weight Dosing Disposition Plan Discharge Prescription List Prescriptions diflunisal 500 mg Tab, 500 mg= 1 tab(s), Oral, q12hr Robaxin-750 oral tablet, 750 mg= 1 tab(s), Oral, TID Follow-up With When Contact Information Cristóbal Granados In 3 days 12/02/2023 EDT [address] [place] [address]- Business (1) Additional Instructions: Krystle Ireland In 3 days [address] [facility] [address], [address] [place] [address]- Business (1) Additional Instructions: Problem List/Past Medical [...] home: No. (more content not included)... Normal [facility] Comment on above: Result Comment: Elec tronically Signed By: Justo Arias DO\.br\Date and Time Signed: 11/29/23 07:21 EDT ED Patient Education Noteon 11-29-2023 ED Patient Education Note ED Patient Education Note Normal [facility] ED Patient Summaryon 024 ED Patient Summary ED Patient Summary [address] [address] Patient Discharge Instructions Person Information Name: ALEJANDRA REAL Age: 28 Years Arrival Date: 11/29/2023 06:37:53 Discharge Diagnosis: Chronic pain Primary Care Physician: Krystle Ireland CNP Provider Information Primary Provider: Justo Arias DO Advanced Light Truck Driver:None The exam and treatment you received in the Emergency Department were for an urgent problem and are not intended as complete care. It is important that you follow up with a doctor, nurse practitioner, or physician?s intellectual property legal assistant for ongoing care. If your symptoms [...] Follow-up Instructions: With: Address: When: Cristóbal Granados [address] [place] [address] Business (1) In 3 days 12/02/2023 With: Address: When: Krystle Ireland [address] [place] [address], [address] [place] [address] Business (1) In 3 days In the event that this physician does not participate in your insurance network, please consult with your insurance company to find a nearby participating provider. Patient Education Materials: A MESSAGE TO ALL PATIENTS REGARDING OPIOIDS PRESCRIPTION OPIOIDS: WHAT YOU NEED TO KNOW Prescription opioids can be used to help relieve nlhbhdid-yq-vuxsei pain and are often prescribed following a [...] care professi (more content not included)... Normal [facility] ED Note-Physicianon 11-28-19 24 ED [...] and Complexity of Problems Differential Diagnosis: [] [facility] Data External documents reviewed: [] My [...] day(s), # 7 tab(s), Refills(s) 0, Pharmacy: [facility] #[id number], 160, cm, 11/26/23 10:31:00 EDT, Height/Length Dosing, 62, kg, 11/26/23 10:31:00 EDT, Weight Dosing Splint Application Wrist XR Wrist 3+ Views Right Disposition Plan Patient Discharge Condition Stable Discharge Disposition to home Discharge Prescription List Prescriptions predniSONE 50 mg Tab, 50 mg= 1 tab(s), Oral, Daily Follow-up With When Contact Information Krystle Ireland In 3 days 11/29/2023 EDT [address] [facility], [address] [place] [phone] Business (1) Additional Instructions: Call Dr for diagnosis based follow up Patient Education Tendinitis Wrist Pain, Adult, Knfu-zp-Iodh Attestation Patient seen and evaluated by the physician intellectual property legal assistant. Attending physician was present in the emergency department and supervised care. This visit was performed by both the physician and an APC. I performed all aspects of the MDM as documented. This report was transcribed using voice recognition software. Every effort was made to ensure accuracy, however, inadvertently computerized sap project manager mistakes may be present. Appropriate healthcare [...] Medical History (more content not included)... Normal [facility] Comment on above: Result Comment: Elec tronically Signed By: Ulisses Mckinney PA-C\.br\Date and Time Signed: 11/26/23 12:24 EDT\.br\Electronically Co-Signed By: Justo Arias DO\.br\Date and Time Co-Signed: 11/28/23 07:48 EDT .Interpretation:on 4 HCV Ab IA Ql Comment Invalid Interpretation Code [facility] Comment on above: Result Comment: Not infected with HCV unless early or acute infection is suspected (which may be delayed in an immunocompromised individual), or other evidence exists to indicate HCV infection. Performed at: [address] [id number] PhD Harinder Fiore Performed By: #### 2 [id number] #### [facility] [address] [id number] Acute Hepatitis A B C Panelo n 11-26-2023 HAV IgM IA Ql Negative Invalid Interpretation Code Negative [facility] Comment on above: Performed By: #### 3 [id number] #### [facility] [address] [place] [address] HBV core IgM IA Ql Negative Invalid Interpretation Code Negative [facility] Comment on above: Performed By: #### 3 [id number] #### [facility] [address] [place] [address] HBV surface Ag IA Ql Negative Invalid Interpretation Code Negative [facility] Comment on above: Performed By: #### 3 [id number] #### [facility] [address] [place] [address] HCV IgG IA Ql Non-Reactive Invalid Interpretation Code Non Reactive [facility] Comment on above: Result Comment: Perf ormed at: [facility] [address] [id number] PhD Harinder Fiore Performed By: #### 3 [id number] #### [facility] [address] [place] [id number] ED Clinical Summaryon 2023 ED Clinical Summary ED Clinical Summary [address] [address] ED Clinical Summary Person Information Name: ALEJANDRA REAL Suzi/[facility] Age: 28 Years : 1995 Sex: Female Language: Swiss PCP: Krystle Ireland CNP Marital Status: Single Phone: [phone] Visit Id: Visit Reason: Hand pain-swelling; RIGHT [...] 11:47:19 ADDRESS: [address] [facility] [id number] PHYS DOC NOTES: MEDICAL INFORMATION: Prescriptions Given: New Medications [id number], [address] [place], [place] [phone], [phone] predniSONE (predniSONE 50 mg Tab) 1 Tablets [...] EDUCATION INFORMATION: Instructions: Tendinitis; Wrist Pain, Adult, Hjpu-eu-Gbev Follow up: With: Address: Luis: Krystle Ireland [address] [place] [address], [facility], [address] [place] [address] Business (1) In 3 days 11/29/2023 Comments: Call Dr for diagnosis based follow up DIAGNOSIS: Right wrist sprain Normal [facility] ED Patient Summaryon 024 ED Patient Summary ED Patient Summary [address] [address] Patient Discharge Instructions Person Information Name: ALEJANDRA REAL Age: 28 Years Arrival Date: 11/26/2023 10:19:14 Discharge Diagnosis: Right wrist sprain Primary Care Physician: Krystle Ireland CNP Provider Information Primary Provider: Justo Arias DO Advanced Light Truck Driver:None The exam and treatment you received in the Emergency Department were for an urgent problem and are not intended as complete care. It is important that you follow up with a doctor, nurse practitioner, or physician?s intellectual property legal assistant for ongoing care. If your symptoms [...] Follow-up Instructions: With: Address: When: Krystle Beka [address] [place] [address], [address] [place] [phone] [employer] [facility] In 3 days 11/29/2023 Comments: Call Dr for diagnosis based follow up In the event that this physician does not participate in your insurance network, please consult with your insurance company to find a nearby participating provider. Patient Education Materials: Tendinitis; Wrist Pain, Adult, Jmsn-qz-Nhjt A MESSAGE TO ALL PATIENTS REGARDING OPIOIDS PRESCRIPTION OPIOIDS: WHAT YOU NEED TO KNOW Prescription opioids can be used to help relieve hsveupvz-yo-zxhrso pain and are often prescribed following a [...] be struggling with addiction, tell your health home care music therapist and a (more content not included)... Normal [facility] HIV Screen 4th Generation wR fxon 11-26-2023 HIV 1+2 Ab+HIV1 p24 Ag IA Ql Non-Reactive Invalid Interpretation Code Non Reactive [facility] Comment on above: Order Comment: in la b Result Comment: HIV- 1/HIV-2 antibodies and HIV-1 p24 antigen were NOT detected. There is no laboratory evidence of HIV infection. HIV Negative Performed at: [facility] [id number] PhD Harinder Fiore Performed By: #### 9 [id number] #### [facility] Laboratory [address] [place] [address] RPR with Conf Rfxon 11-26-19 24 Reagin Ab RPR Ql (S) Non-Reactive Invalid Interpretation Code Non Reactive [facility] Comment on above: Result Comment: Perf ormed at: [facility] [address] [id number] PhD Jeetserenity Marcycorona Performed By: #### 1 [id number] #### [facility] Laboratory [address] [place] [address] XR Wrist 3+ Views Righton XR Wrist [...] mGy = . DAP = . Normal [facility] ED Clinical Summaryon 2023 ED Clinical Summary ED Clinical Summary [address] [address] ED Clinical Summary Person Information Name: ALEJANDRA REAL [place] Age: 28 Years : 1995 Sex: Female Language: Swiss PCP: Krystle Ireland CNP Marital Status: Single Phone: [phone] Visit Id: Visit Reason: Nausea; Chronic pain; [...] 11/24/2023 13:14:00 11/24/2023 13:14:00 11/24/2023 13:14:00 ADDRESS: [facility] [address] [facility] [id number] PHYS DOC NOTES: MEDICAL INFORMATION: Prescriptions Given: New Medications [id number], [address] [place], [place] [id number], [phone] naproxen (naproxen 500 mg Tab) 1 Tablets [...] Follow up: With: Address: When: Krystle Ireland [address] [place] [address], [address] [place] [address] Business (1) In 3 days DIAGNOSIS: Chronic pelvic pain in female; Other chronic pain Normal [facility] ED Note-Physicianon 11-24-19 ED Note-Physician [...] 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 Therefore she will be prescribed the tramadol and given a note for work and given naproxen as well follow-up in the outpatient setting. I, Dr. Arias had a ojlw-va-tdap interaction with the patient. I personally performed [...] day(s), # 9 tab(s), Refills(s) 0, Pharmacy: [facility]/pharmacy #[id number], 160, cm, 11/24/23 11:59:00 EDT, Height/Length Dosing, 62, kg, 11/24/23 11:59:00 EDT, Weight Dosing Orders: naproxen, 500 mg = 1 tab(s), Oral, BID, Take one tab by mouth two times a day, # 14 tab(s), Refills(s) 0, Pharmacy: [facility]/pharmacy #[id number], 160, cm, 11/24/23 11:59:00 EDT, Height/Length Dosing, 62, kg, 11/24/23 11:59:00 EDT, Weight Dosing Disposition Plan Discharge Prescription List Prescriptions naproxen 500 mg Tab, 500 mg= 1 tab(s), Oral, BID Ultram 50 mg Tab, 50 mg= 1 tab(s), Oral, q8hr Follow-up With When Contact Information Krystle Ireland In 3 days [address] [facility], [address] Business (1) Additional Instructions: Patient Education [...] in hous (more content not included)... Normal [facility] Comment on above: Result Comment: Elec tronically Signed By: Justo Arias DO\.br\Date and Time Signed: 11/24/23 12:57 EDT ED Patient Summaryon 024 ED Patient Summary ED Patient Summary [facility] [address] [place], [place] [address] Patient Discharge Instructions Person Information Name: ALEJANDRA REAL Age: 28 Years Arrival Date: 11/24/2023 11:46:11 Discharge Diagnosis: Chronic pelvic pain in female; Other chronic pain Primary Care Physician: Krystle Ireland CNP Provider Information Primary Provider: Justo Arias DO Advanced Light Truck Driver:None The exam and treatment you received in the Emergency Department were for an urgent problem and are not intended as complete care. It is important that you follow up with a doctor, nurse practitioner, or physician?s intellectual property legal assistant for ongoing care. If your symptoms [...] Instructions: With: Address: When: Krystle Ireland [address] [facility], [facility], [address] [place] [address] Business (1) In 3 days In the event that this physician does not participate in your insurance network, please consult with your insurance company to find a nearby participating provider. Patient Education Materials: Chronic Pain, Adult A MESSAGE TO ALL PATIENTS REGARDING OPIOIDS PRESCRIPTION OPIOIDS: WHAT YOU NEED TO KNOW Prescription opioids can be used to help relieve zcdgercc-sn-zwnesw pain and are often prescribed following a [...] be struggling with addiction, tell your health home care music therapist and ask for guidance or call [facility]?S National Helpline at (more content not included)... Normal [facility] Heart and Vascular Office/Cl inic [...] to go (more content not included)... Normal [facility] Comment on above: Result Comment: [...] 300 Contrast amount in ml's: 100 Normal [facility] ED Clinical Summaryon 2023 ED Clinical Summary ED Clinical Summary [place] [id number] ED Clinical Summary Person Information Name: ALEJANDRA REAL Suzi/[facility] Age: 28 Years : 1995 Sex: Female Language: Swiss PCP: Krystle Ireland CNP Marital Status: Single Phone: [phone] Visit Id: Visit Reason: Nausea; Abdominal pain; [...] 11/05/2023 09:01:54 11/05/2023 09:01:54 11/05/2023 09:01:54 ADDRESS: [address] [place] [address] [place] [id number] [facility] DOC NOTES: MEDICAL INFORMATION: Prescriptions Given: [...] Follow up: With: Address: When: Krystle Ireland [address] [place] [address], [address] [place] [phone] [employer] (1) In 3 days 11/08/2023 Comments: Call [...] female pelvic pain; Other chronic pain Normal [facility] ED Note-Physicianon 11-05-19 ED Note-Physician [...] data a (more content not included)... Normal [facility] Comment on above: Result Comment: Elec tronically Signed By: Guille Will MD\.br\Date and Time Signed: 11/10/23 07:48 EDT\.br\Electronically Co-Signed By: Darren Lomax DO\.br\Date and Time Co-Signed: 11/05/23 09:11 EDT ED Patient Summaryon 024 ED Patient Summary ED Patient Summary [address] [address] Patient Discharge Instructions Person Information Name: ALEJANDRA REAL Age: 28 Years Arrival Date: 11/04/2023 23:45:14 Discharge Diagnosis: 1:Left lower quadrant abdominal pain; Chronic female pelvic pain; Other chronic pain Primary Care Physician: Krystle Ireland CNP Provider Information Primary Provider: Guille Will MD Advanced Light Truck Driver:None The exam and treatment you received in the Emergency Department were for an urgent problem and are not intended as complete care. It is important that you follow up with a doctor, nurse practitioner, or physician?s intellectual property legal assistant for ongoing care. If your symptoms [...] Follow-up Instructions: With: Address: When: Krystle Ireland [address] [place] [address], [address], [address] [place] [address] Business (1) In 3 days [...] opioids can be used to help relieve zoxuxman-lb-lddczb pain and are often prescribed following a [...] o Work (more content not included)... Normal [facility] HEMATOLOGYOrdered By: SYSTEM SYSTEM on [...] test) Ql Negative (11/05/23 1:37 AM) Normal [facility] Man Sero URINALYSISOrdered By: SYSTEM SYSTEM on [...] that meet specific criteria set forth by [facility] Laboratory. Glucose Ql (U) Negative [...] AM) Invalid Interpretation Code 5.0 - 9.0 [facility] UA Auto SS Protein Ql (U) Negative Normal Negativemg/d L [facility] UA Auto SS Specific gravity (U) [Rel density] 1.024 *NA* (11/05/23 1:41 AM) Invalid Interpretation Code 1.005 - 1.030 [facility] UA Auto SS Urobilinogen (U) [Mass/Vol] Negative Normal Negativemg/d L [facility] UA Auto SS URINALYSISOrdered By: Guille tavarez on 11-05-2023 UA Spec Desc Clean Catch (11/05/23 1:41 AM) Normal [facility] UA Auto SS Work Phone: [place] Pelvis [...] ILA Technical Comments Transabdominal Ultrasound Performed Normal [facility] eGFRon 07-10-2024 eGFR 102 mL/min/1.73 m2 Normal >=59 [facility] Comment on above: Order Comment: Order added by Discern Expert. Performed By: #### 1 [id number] #### [facility] Laboratory [address] [place] [address] Ambulatory Visit Summaryon 0 2023 Ambulatory Visit [...] choosing us for your care. Normal [facility] Bilirubin Test strip Ql (U)O rdered By: PROVIDER TEMP on 2023 Bilirubin Ql (U) Negative Negative [facility] Color of Urine by AutoOrdere d By: PROVIDER TEMP on 2023 Color (U) Colorless Normal Yellow [facility] Comment on above: Order Comment: Name Collection Type:: Voided Performed By: #### C MP, LIPASE, CBC #### [facility] [address] [place] [address] Family Medicine Office/Clini c Noteon 2023 Family [...] day(s), # 14 tab(s), Refills(s) 0, Pharmacy: [facility]/pharmacy #[id number], 160, cm, 11/02/23 14:02:00 EDT, Height/Length Dosing, 62, kg, 11/02/23 14:02:00 EDT, Weight Dosing Portions of this record may have been created with voice recognition artificial intelligence software, specifically Docebo, Affresol and or Boutir. Substitutions may have occurred due to the [...] cartilage (1 (more content not included)... Normal [facility] Comment on above: Result Comment: Elec tronically Signed By: Shameka LUKE, Suman Ford\.tesha\Date and Time Signed: 11/02/23 14:56 EDT Glucose [Mass/volume] in Uri ne by Test stripOrdered By: PROVIDER TEMP on 2023 Glucose Test strip (U) [Mass/Vol] Normal mg/dL Normal [facility] HCG ( test) IA.rapi d Ql (U)Ordered By: PROVIDER TEMP on 2023 HCG ( test) Ql (U) Negative [facility] HCG,Urineon 2023 Beta HCG ( test) Ql (U) Negative Normal [facility] Comment on above: Order Comment: Name Collection Type:: Voided Result Comment: PERF ORMED BY: [place] [address] PATHOLOGIST VETERINARY SURGERY TECHNICIAN ALEXANDER SANDERS M.D. Performed By: #### C MP, LIPASE, CBC #### [facility] [address] [place] [address] Hemoglobin Test strip Ql (U) Ordered By: PROVIDER TEMP on 2023 Hemoglobin Ql (U) Negative Negative [facility] Ketones [Presence] in Urine by Test stripOrdered By: PROVIDER TEMP on 2023 Ketones Ql (U) Negative Normal Negative [facility] Comment on above: Order Comment: Name Collection Type:: Voided Performed By: #### C MP, LIPASE, CBC #### [facility] [address] [place], [place] [id number] [place] Leukocyte esterase [Presence ] in Urine by Test stripOrdered By: PROVIDER TEMP on 2023 Leukocyte esterase Test strip Ql (U) Negative Normal Negative [facility] Comment on above: Order Comment: Name Collection Type:: Voided Performed By: #### C MP, LIPASE, CBC #### [facility] [address] [place], [place] [address] [place] Nitrite Test strip Ql (U)Ord ered By: PROVIDER TEMP on 2023 Nitrite Ql (U) Negative Negative [facility] Protein Test strip (U) [Mass /Vol]Ordered By: PROVIDER TEMP on 2023 Protein (U) [Mass/Vol] Negative Negative [facility] Specific gravity Test strip (U) [Rel density]Ordered By: PROVIDER TEMP on 2023 Specific gravity (U) [Rel density] 1.012 1.001-1.030 [facility] Urinalysison 2023 Bilirubin,Urine Negative Normal Negative [facility] Comment on above: Order Comment: Name Collection Type:: Voided Performed By: #### C MP, LIPASE, CBC #### [facility] [address] Glucose Ql (U) Normal Normal Normal [facility] Comment on above: Order Comment: Name Collection Type:: Voided Performed By: #### C MP, LIPASE, CBC #### [facility] [address] [place] [address] Nitrite,Urine Negative Normal Negative [facility] Comment on above: Order Comment: Name Collection Type:: Voided Performed By: #### C MP, LIPASE, CBC #### [facility] [address] [place] [address] [place] Occult Blood,Urine Negative Normal Negative [facility] Comment on above: Order Comment: Name Collection Type:: Voided Performed By: #### C MP, LIPASE, CBC #### [address] Protein,Urine Negative Normal Negative [facility] Comment on above: Order Comment: Name Collection Type:: Voided Performed By: #### C MP, LIPASE, CBC #### [facility] [address] [place] [id number] [place] Specificy Mobile,Urine 1.012 Normal 1.001-1.030 [facility] Comment on above: Order Comment: Name Collection Type:: Voided Performed By: #### C MP, LIPASE, CBC #### [facility] [address] [place] [address] Urobilinogen,Urine Normal Normal Normal [facility] Comment on above: Order Comment: Name Collection Type:: Voided Performed By: #### C MP, LIPASE, CBC #### [facility] [address] [place] [id number] [facility] Urine appearanceOrdered By: PROVIDER TEMP on 2023 Appearance (U) Clear Normal Clear [facility] Comment on above: Order Comment: Name Collection Type:: Voided Performed By: #### C MP, LIPASE, CBC #### [facility] [address] [place] [id number] [facility] Urobilinogen Test strip (U) [Mass/Vol]Ordered By: PROVIDER TEMP on 2023 Urobilinogen (U) [Mass/Vol] Normal mg/dL Normal [facility] pH of Urine by Test stripOrd ered By: PROVIDER TEMP on 2023 pH (U) 7.0 [pH] Normal 5.0-9.0 [facility] Comment on above: Order Comment: Name Collection Type:: Voided Performed By: #### C MP, LIPASE, CBC #### [facility] [address] [place], [place] [address] [facility] ED Clinical Summaryon 2023 ED Clinical Summary ED Clinical Summary [place] [id number] ED Clinical Summary Person Information Name: ALEJANDRA REAL Suzi/[facility] Age: 27 Years : 1995 Sex: Female Language: Swiss PCP: Krystle Ireland CNP Marital Status: Single Phone: [phone] Visit Id: Visit Reason: Nausea; Abdominal pain; [...] 11/01/2023 20:05:59 11/01/2023 20:05:59 11/01/2023 20:05:59 ADDRESS: [address] [place] [id number] [facility] DOC NOTES: MEDICAL INFORMATION: Prescriptions Given: [...] Follow up: With: Address: When: Fatoumata Gooden [address] [place] [address] Business (1) In 3 days 11/04/2023 With: Address: When: Krystle Ireland [address] [place] [address], [address] [place] [phone] Business (1) In 3 days DIAGNOSIS: AP (abdominal pain) Normal [facility] ED Note-Physicianon 11-01-19 ED Note-Physician [...] and Complexity of Problems Differential Diagnosis: [] [facility] Data External documents reviewed: N/A My [...] Gooden In 3 days 11/04/2023 EDT [address] [place] [address]- Business (1) Additional Instructions: Krystle Ireland In 3 days [address] [facility], [address] [place] [address]- Business (1) Additional Instructions: Patient Education Abdominal [...] with Si (more content not included)... Normal [facility] Comment on above: Result Comment: [...] day(s), # 5 tab(s), Refills(s) 0, Pharmacy: [facility]/pharmacy #[id number], 160, cm, 10/31/23 12:45:00 EDT, Height/Length Dosing, 63.2, kg, 10/31/23 12:45:00 EDT, Weight Dosing Medications Administered Given aaywpl1Bvsfrayqk [F], 30 mg, IntraMuscular Disposition Plan Patient Discharge Condition Stable Discharge Disposition Home Discharge Prescription List Prescriptions predniSONE 50 mg Tab, 50 mg= 1 tab(s), Oral, Daily Follow-up With When Contact Information Follow-up with Dr. Gooden and pain management as scheduled. In 3 days 11/03/2023 EDT Additional Instructions: Krystle Ireland In 3 days [address] [facility], [address] [place] [phone]- Business (1) Additional Instructions: Patient Education Abdominal Pain, Adult, Kfcf-fz-Okcc Attestation Patient seen and evaluated by the physician intellectual property legal assistant. Attending physician was present in the emergency department and supervised care. This visit was performed by both the physician and an APC. I performed all aspects of the MDM as documented. This report was transcribed using voice recognition software. Every effort was made to ensure accuracy, however, inadvertently computerized sap project manager mistakes may be present. Appropriate healthcare [...] 25.0-25.9,adult Dysuria (more content not included)... Normal [facility] Comment on above: Result Comment: Elec tronically Signed By: France Day PA-C\.br\Date and Time Signed: 10/31/23 17:23 EDT\.br\Electronically Co-Signed By: Justo Arias DO\.br\Date and Time Co-Signed: 11/01/23 07:47 EDT ED Patient Summaryon 024 ED Patient Summary ED Patient Summary [address] [address] Patient Discharge Instructions Person Information Name: ALEJANDRA REAL Age: 27 Years Arrival Date: 11/01/2023 19:33:16 Discharge Diagnosis: AP (abdominal pain) Primary Care Physician: Krystle Ireland CNP Provider Information Primary Provider: Bruno Jara DO Advanced Light Truck Driver:Ted The exam and treatment you received in the Emergency Department were for an urgent problem and are not intended as complete care. It is important that you follow up with a doctor, nurse practitioner, or physician?s intellectual property legal assistant for ongoing care. If your symptoms [...] Follow-up Instructions: With: Address: When: Fatoumata Gooden [address] [place] [id number] Business (1) In 3 days 11/04/2023 With: Address: When: Krystle Ireland [address] [place] [address], [facility], [address] [place] [address] Business (1) In 3 days In the event that this physician does not participate in your insurance network, please consult with your insurance company to find a nearby participating provider. Patient Education Materials: Abdominal Pain, Adult A MESSAGE TO ALL PATIENTS REGARDING OPIOIDS PRESCRIPTION OPIOIDS: WHAT YOU NEED TO KNOW Prescription opioids can be used to help relieve dmwvnyiz-ne-olcrzw pain and are often prescribed following a [...] with addicti (more content not included)... Normal [facility] ED Clinical Summaryon 2023 ED Clinical Summary ED Clinical Summary [place] [id number] ED Clinical Summary Person Information Name: ALEJANDRA REAL Suzi/[facility] Age: 27 Years : 1995 Sex: Female Language: Swiss PCP: Krystle Ireland CNP Marital Status: Single Phone: [phone] Visit Id: Visit Reason: Nausea; Abdominal pain; [...] 14:04:07 ADDRESS: [address] [facility] [id number] PHYS DOC NOTES: MEDICAL INFORMATION: Prescriptions Given: New Medications [id number], [address] [facility] [place], [place] [id number], [phone] predniSONE (predniSONE 50 mg Tab) 1 Tablets [...] PATIENT EDUCATION INFORMATION: Instructions: Abdominal Pain, Adult, Surw-xn-Gwcs Follow up: With: Address: When: Follow-up with Dr. Gooden and pain management as scheduled. In 3 days 11/03/2023 With: Address: When: Krystle Ireland [address] [place] [address], [facility], [address] [place] [address] Business (1) In 3 days DIAGNOSIS: Chronic pain disorder Normal [facility] ED Patient Summaryon 024 ED Patient Summary ED Patient Summary [address] [address] Patient Discharge Instructions Person Information Name: ALEJANDRA REAL Age: 27 Years Arrival Date: 10/31/2023 12:38:24 Discharge Diagnosis: Chronic pain disorder Primary Care Physician: Krystle Ireland CNP Provider Information Primary Provider: Justo Arias DO Advanced Light Truck Driver:France Day PA-C. The exam and treatment you received in the Emergency Department were for an urgent problem and are not intended as complete care. It is important that you follow up with a doctor, nurse practitioner, or physician?s intellectual property legal assistant for ongoing care. If your symptoms [...] days 11/03/2023 With: Address: When: Krystle Ireland [address] [place] [address], [address] [place] [phone] [facility] (1) In 3 days In the event that this physician does not participate in your insurance network, please consult with your insurance company to find a nearby participating provider. Patient Education Materials: Abdominal Pain, Adult, Zxff-je-Iixb A MESSAGE TO ALL PATIENTS REGARDING OPIOIDS PRESCRIPTION OPIOIDS: WHAT YOU NEED TO KNOW Prescription opioids can be used to help relieve yauhjfvu-fj-xbglne pain and are often prescribed following a [...] struggling wi (more content not included)... Normal [facility] UA with Cult Rflxon 10-31-19 24 Bilirubin Ql (U) Negative Normal Negative [facility] Comment on above: Performed By: #### 4 [id number] #### [facility] Laboratory [address] [place] [address] Clarity (U) Clear Normal Clear [facility] Comment on above: Performed By: #### 4 [id number] #### [facility] [address] [place] [address] Color (U) Light-Yellow Normal Yellow [facility] Comment on above: Result Comment: Micr oscopic readings are only performed on those samples that meet specific criteria set forth by [facility]. Performed By: #### 4 [id number] #### [facility] [address] [place] [address] Glucose Ql (U) Negative Normal Negative [facility] Comment on above: Performed By: #### 4 [id number] #### [facility] [address] [place] [address] Hemoglobin Auto test strip (U) [Mass/Vol] Negative Normal Negative [facility] Comment on above: Performed By: #### 4 [id number] #### [facility] [address] [place] [address] Ketones Auto test strip Ql (U) Negative Normal Negative [facility] Comment on above: Performed By: #### 4 [id number] #### [facility] [address] [place] [address] Leukocyte esterase Auto test strip Ql (U) Negative Normal Negative [facility] Comment on above: Performed By: #### 4 [id number] #### [facility] [address] [place] [address] Nitrite Auto test strip Ql (U) Negative Normal Negative [facility] Comment on above: Performed By: #### 4 [id number] #### [facility] Laboratory [address] [place] [address] pH (U) 6.0 [pH] Invalid Interpretation Code 5.0-9.0 [facility] Comment on above: Performed By: #### 4 [id number] #### [facility] Laboratory [address] [place] [address] Protein Ql (U) Negative Normal Negative [facility] Comment on above: Performed By: #### 4 [id number] #### [facility] Laboratory [address] [place] [address] Specific gravity (U) [Rel density] 1.017 Invalid Interpretation Code 1.005-1.030 [facility] Comment on above: Performed By: #### 4 [id number] #### [facility] Laboratory [address] [place] [address] Urobilinogen (U) [Mass/Vol] Negative Normal Negative [facility] Comment on above: Performed By: #### 4 [id number] #### [facility] Laboratory [address] [place] [address] Type of Urine collection method Clean Catch Normal [facility] Comment on above: Performed By: #### 4 [id number] #### [facility] Laboratory [address] [place] [id number] URINALYSISOrdered By: SYSTEM SYSTEM on 10-31-2023 Bilirubin Ql (U) Negative Normal Negativemg/ d L [facility] UA Auto SS Clarity (U) Clear (10/31/23 12:50 PM) Normal Clear [facility] UA Auto SS Color (U) Light-Yellow 1 (10/31/23 12:50 PM) Normal Yellow [facility] UA Auto SS Comment on above: Interpretive Data: M icroscopic readings are only performed on those samples that meet specific criteria set forth by [facility] Laboratory. Glucose Ql (U) Negative [...] PM) Invalid Interpretation Code 5.0 - 9.0 [facility] UA Auto SS Protein Ql (U) Negative Normal Negativemg/d L FT UA Auto SS Specific gravity (U) [Rel density] 1.017 *NA* (10/31/23 12:50 PM) Invalid Interpretation Code 1.005 - 1.030 [facility] UA Auto SS Urobilinogen (U) [Mass/Vol] Negative Normal Negativemg/d L [facility] UA Auto SS URINALYSISOrdered By: Donna Coelho on 10-31-2023 UA Spec Desc Clean Catch (10/31/23 12:50 PM) Normal [facility] UA Auto SS ED Clinical Summaryon 2023 ED Clinical Summary ED Clinical Summary [place] [id number] ED Clinical Summary Person Information Name: ALEJANDRA REAL Suzi/[facility] Age: 27 Years : 1995 Sex: Female Language: Swiss PCP: Krystle Ireland CNP Marital Status: Single Phone: [phone] Visit Id: Visit Reason: Pelvic pain; Chronic [...] 10/30/2023 16:58:39 10/30/2023 16:58:39 10/30/2023 16:58:39 ADDRESS: [address] [place] [address] [address] [facility] [id number] PHYS DOC NOTES: MEDICAL INFORMATION: Prescriptions Given: [...] already scheduled With: Address: When: Krystle Ireland [address] [place] [address], [facility], [address] [place] [phone] Business (1) In 3 days DIAGNOSIS: 1:Chronic pain Normal [facility] ED Note-Physicianon 10-30-19 ED Note-Physician [...] Instructions: Krystle Ireland In 3 days [address] [facility], [address] [place] [address]- [facility] (1) Additional Instructions: Patient Education Pelvic Pain, Female Attestation Patient was treated and evaluated by the Physician Center Manager. The attending physician was in the Emergency [...] - O (more content not included)... Normal [facility] Comment on above: Result Comment: Elec tronically Signed By: Siomara Nettles PA-C\.br\Date and Time Signed: 10/30/23 16:35 EDT\.br\Electronically Co-Signed By: Mary Jane Palm M.D.\.br\Date and Time Co-Signed: 10/30/23 17:08 EDT ED Patient Summaryon ED Patient Summary ED Patient Summary [place] [id number] Patient Discharge Instructions Person Information Name: ALEJANDRA REAL Age: 27 Years Arrival Date: 10/30/2023 16:04:18 Discharge Diagnosis: 1:Chronic pain Primary Care Physician: Krystle Ireland CNP Provider Information Primary Provider: Mary Jane Palm M.D. Advanced Light Truck Driver:Siomara Nettles PA-C The exam and treatment you received in the Emergency Department were for an urgent problem and are not intended as complete care. It is important that you follow up with a doctor, nurse practitioner, or physician?s intellectual property legal assistant for ongoing care. If your symptoms [...] already scheduled With: Address: When: Krystle Ireland [address] [place] [address], [address] [place] [phone] Business (1) In 3 days In the event that this physician does not participate in your insurance network, please consult with your insurance company to find a nearby participating provider. Patient Education Materials: Pelvic Pain, Female A MESSAGE TO ALL PATIENTS REGARDING OPIOIDS PRESCRIPTION OPIOIDS: WHAT YOU NEED TO KNOW Prescription opioids can be used to help relieve ulxxnugu-mz-hhysfm pain and are often prescribed following a [...] health ca (more content not included)... Normal [facility] ED Clinical Summaryon 2023 ED Clinical Summary ED Clinical Summary [place] [id number] ED Clinical Summary Person Information Name: ALEJANDRA REAL [place] Age: 27 Years : 1995 Sex: Female Language: Swiss PCP: Krystle Ireland CNP Marital Status: Single Phone: [phone] MRN: Visit Id: Visit Reason: Chronic pain; [...] 14:57:20 ADDRESS: [address] [facility] [id number] PHYS DOC NOTES: MEDICAL INFORMATION: Prescriptions Given: Medications to Continue Taking That Have Changed [id number], [address] [place], [place] [id number], [phone] START: tramadol (traMADOL 50 mg Tab) 1 Tablets By Mouth every 6 hours as needed for pain for 3 Days. Refills: 0. [id number], [address] [place], [place] [id number], [phone] START: tramadol (traMADOL 50 mg Tab) 1 [...] Follow up: With: Address: When: Krystle Ireland [address] [place] [address], [facility], [address] [place] [address] Business (1) In 3 days DIAGNOSIS: Chronic pain in female pelvis; Other chronic pain Normal [facility] ED Note-Physicianon 10-25-19 ED Note-Physician [...] and Complexity of Problems Differential Diagnosis: [] [facility] Data External documents reviewed: [] My [...] day(s), # 12 tab(s), Refills(s) 0, Pharmacy: [facility] #[id number], 160, cm, 10/25/23 13:44:00 EDT, Height/Length Dosing, 65, kg, 10/25/23 13:44:00 EDT, Weight Dosing tramadol, 50 mg = 1 tab(s), Oral, q6hr, PRN for pain, X 3 day(s), # 12 tab(s), Refills(s) 0, Pharmacy: [id number], 160, cm, 10/25/23 13:44:00 EDT, Height/Length Dosing, 65, kg, 10/25/23 13:44:00 EDT, Weight Dosing Disposition Plan Patient Discharge Condition Stable Discharge Disposition To home Discharge Prescription List Prescriptions traMADOL 50 mg Tab, 50 mg= 1 tab(s), Oral, q6hr, PRN traMADOL 50 mg Tab, 50 mg= 1 tab(s), Oral, q6hr, PRN Follow-up With When Contact Information Krystle Ireland In 3 days [address] [facility], [address] [place] [phone]- Business (1) Additional Instructions: Patient Education Chronic Pain, Adult Attestation Patient seen and evaluated by the physician intellectual property legal assistant. Attending physician was present in the emergency department and supervised care. This visit was performed by both the physician and an APC. I performed all aspects of the MDM as documented. This report was transcribed using voice recognition software. Every effort was made to ensure accuracy, however, inadvertently computerized sap project manager mistakes may be present. Appropriate healthcare [...] of complications. (Independen (more content not included)... [facility] Comment on above: Result Comment: Elec tronically Signed By: Ulisses Mckinney PA-C\.br\Date and Time Signed: 10/25/23 15:22 EDT\.br\Electronically Co-Signed By: Darren Lomax DO\.br\Date and Time Co-Signed: 10/25/23 15:24 EDT ED Patient Summaryon 024 ED Patient Summary ED Patient Summary [place] [id number] Patient Discharge Instructions Person Information Name: ALEJANDRA REAL Age: 27 Years Arrival Date: 10/25/2023 13:28:13 Discharge Diagnosis: Chronic pain in female pelvis; Other chronic pain Primary Care Physician: Krystle Ireland CNP Provider Information Primary Provider: Darren Lomax DO Advanced Light Truck Driver:None The exam and treatment you received in the Emergency Department were for an urgent problem and are not intended as complete care. It is important that you follow up with a doctor, nurse practitioner, or physician?s intellectual property legal assistant for ongoing care. If your symptoms [...] Follow-up Instructions: With: Address: When: Krystle Ireland [address] [place] [address], [address] [place] [phone] Business (1) In 3 days In the event that this physician does not participate in your insurance network, please consult with your insurance company to find a nearby participating provider. Patient Education Materials: Chronic Pain, Adult A MESSAGE TO ALL PATIENTS REGARDING OPIOIDS PRESCRIPTION OPIOIDS: WHAT YOU NEED TO KNOW Prescription opioids can be used to help relieve zrnrsbls-wv-guwvlp pain and are often prescribed following a [...] be struggling with addiction, tell your health home care music therapist and ask for guidance or call [facility]?S National [employer] a (more content not included)... Normal [facility] ED Note-Physicianon 10-24-19 ED Note-Physician [...] 12 tab(s), Refills(s) 0, Pharmacy: [facility][id number], 160, cm, 10/21/23 18:20:00 EDT, Height/Length Dosing, [...] Granados In 3 days 10/24/2023 EDT [address] Business (1) Additional Instructions: Pain Clinic: [facility] [phone] In 3 days 10/24/2023 EDT Additional Instructions: Krystle Ireland In 3 days [address] [facility], [address] [place] [address]- Business (1) Additional Instructions: Patient Education Pelvic Pain, Female Attestation Patient seen and evaluated by the physician intellectual property legal assistant. Attending physician was present in the emergency department and supervised care. This visit was performed by both the physician and an APC. I performed all aspects of the MDM as documented. This report was transcribed using voice recognition software. Every effort was made to ensure accuracy, however, inadvertently computerized sap project manager mistakes may be present. Appropriate healthcare PPE was used in evaluating this patient. The patient was placed in a mask. The healthcare provider was wearing mask, gloves, and utilizing proper hand hygiene. All equipment was properly cleansed. I performed a substantive part of the MDM during the patient?s E/M visit. I pers (more content not included)... Normal [facility] Comment on above: Result Comment: Elec tronically Signed By: Juancho Colón PA-C\.br\Date and Time Signed: 10/21/23 20:37 EDT\.br\Electronically Co-Signed By: Justo Arias DO\.br\Date and Time Co-Signed: 10/24/23 07:16 EDT Coding Summary.on 10-22-2023 Coding Summary. YCBTIwgz77SWn3cUg+PG h lYWQ+JS6JPJAnF64npVMv vS1lK1YRDWkHUcxiBAZFI JnFPgAcehFsCN8xgUYxWK Ju IC8+LN1aZUKlRiivbYCst 9H0tDG9O68ezw5tPYwmaO Y5VAErXdDpdrfwz3fadOc 6IDcuNmluOyBt TAVihA74BXF5uD14Yb07h LXyeZIef8dmxKc4CxWdRO DtSHC0xUaoWLnwz0PaZIR vP60wlVPqi0L8 RDDwwDdwsHYdOsJibOQ2a I6cKIlcohdtm2varawhCv o3ni09fVMbx7P9gVQ0F7F peaR0NMOwnKCe GpkjdURHuT6ccnsop4wyc aaxNeHwTAEfKSx2NAb8NU RaqNruPsLsBC39NKI6YYR ktsOpD6YxHCXr zGljSzR9v0W5He7WW7ZBQ vcyM2SVVWEFFClyqWG+PC 49cj02F2AhZfssUrx8MVK nCZP9cFP6lH1k JCEyTFgql5H5pSJ4E3Stk xPceq4gm3kpJMEtCVvnA0 3jePQzv4O9KBWwtDA5TLM gnZphFpAhkL13 Oyc+HFZipWxpa4ZaMsazr 7gjt5nrmYq1LxoyAFPems CiaRqxFDL9t7XxMb9tIMZ fhZC9aTH0tM7g LxZcQuA7XDwvG342CbRxf VJdUuvhH45fA4KgfSY+PH EzDil1WPYkfJmyGJ5lT8Y hZGRpbmctbGVm uXeaNB4vEGSgbcvaMRHvd G8bGKMbW3x6FfGrOvS1VW rwZ6KlFRTdwjsiSu97oP2 oNtHfTtU7MUoz H1XvouV3SURewPQaGUbmJ AK8L56yk1X5VZVjDZRqZN B4nBU8yV6kmCuqpikldWL mdDsgdmVydGlj VVgtARfdI909BAQvtFgsY kNvZGluZyBEYXRlOiAgMD YvMjYvMjAyNDwvdGQ+PHR aOSS8xYscDLQh vJYzHUgfDj7hjCrnaZmvL E7qAOHoiavpVCJegT7bLZ LqoXPpdOrfFK6bNAFsnqw ca506UmTuLUG9 UPWctPFiQ7VmwZ9oChNgO JRzDVZcM4NjiIUfPTmlJ7 39STjbXfP8PCVwxfZyM0L sLWFsaWduOiB0 v6H7Lh5St9MyhlamA8Njj DMnGeSrEhfaVTk0S0JnSg wvdHI+GD90PKHjMG25GUk 7OOD1oNgmIIoi NWOdZ6FxqB7gBfFdOJUfE GRkOyc+PHRhYmxlIHdpZH RoPScxMDAlJyBzdHlsZT0 oIq4qKPHmOAZl fRdnsSOoUqIag4gaPYOwD EdeJC8wpPkfF4SacMU4ZG Cfd9q9Ip27X76fN4MekOC +FNMsyUM2qHM6 gY7uQxLyQhQ7GEvgR661K nZofSLcQnezc1yfd6wnjY k2BmA9PWKzxxVtlEkpNBX 9n8BwMb98P86j IHdpZHRoPSIxNSUiIHZhb Pryay7kyA1lWu0+PGNvbC Q1hST3mR7iSzNgPtC6VPl bA765SdQajUDc Tqthj7scm4balKl1IsUwZ QScznWcbUvnXVK3f5KzNa 69C5MppYtkz1OzGqj5ye9 6lSBjf8Q6xGY9 L0LkHCFcmtjxnXSomOebD J5gLRLbjadiVLDnfY6pRI JpF1n1ZqFgPjS2WDjwI6I ctaD3SDEkyIVj VMCsdYNSaX7zjlvqp5bfw yoiGyZdQFDnVPb6FMg0DK PzaLfmKpKzLVH8VfX1WNN 9gMZbsJ7bzFer voscbD7tPru+TRO2uDCrf JROIO1uTjwruQP+PHRkIH H1iFzyGHtbZVPywM8yTDZ vU5n1LhLrXdI4 AYmaI6GeyhN8NUGbfQZoY KDyzZVHvT6ozjiwi1clqw yeGpVgFRGcSMo4GBy0DJK saWduOiBsZWZ0 XkR8BEY6tJSsqQ2ieKffr lrypB9hApb+QmlydGggRG G3XLh2Z9RgNjn3NJSbuBh aYF4dfPCoEPnf Gz4aeSklnOliYY5cHDBfr dyei742QwCvt7jlGTEduS KsOPooZHC6C24xm4A3EXJ fBFPgEME6eOO3 pY3ijHiqogrwkCEftSgcc cPyoFwySQniOOleA316GJ SifVhiCbKxYQs1Z1UlQgj 3PYUzjGzvUT8m xDAjTMdfTz7poUohqDxzT M0sUZTthquxz281KpPeu2 ixGXJtzVYcBVlfOQL6Z39 fl6Z7JKVoIQRm YMK0qUW4uM0vuLjheitoo GVmdDsgdmVydGljYWwtYW hmH562GHTukWigXwGpcEq 9M3YrPmo4KOFm aWshKU6zvOCmCZwlAc9yc WeuqYglLC5fEYXgomgrg8 61XnUvz6ddCQHdyFIeCWg vMSF6E48ti9X4 WKZuAGJeGXI1bRB1jZ7ph GlnbjogbGVmdDsgdmVydG egDNisEJqrF605MRRwzXx nPlBhdGllbnQg AShjDQw4M2KwJqqjjID+P R05MAYkUW97tHMqqKYnm8 nwnKr0EiDySUKcETH3tPo cFNcqn2JpTDSh M00gbGMgn4P9SXYyxXpdo DBrXrIagPZ7oQ0gXWmnuy wiz8dtmzvhThdnn7lnzp9 8xM81R10eBSpv ZHRoPSIzMCUiIHZhbGlnb c5piP0nDb4+QFIzoDC6bP Y7cZ6iJOMaPpD0YChrZ89 9InRvcCIvPjxj f3tvu4yyxPx9EfI5OGKol kFprVlmBBP7k7VrVc96E8 9sIHdpZHRoPSIyMCUiIHZ zwSgldk3aqR6m Ii8+JADtaTX2kFF9fC7aO uDaUiH4QWlyZ640TlIjhP AaYyqzQ46fT0NumYA+PHR xDge7INZcrQys NO3jkFLqVFxkTv8eTXW8I fGgMnQpBJhlG1ZkUIItse lisamtuFB3UMWwDJLxwX6 9Ks1woTiuAOMq qUIKmE7hfswvn5ifivrvO dCvJZKbHYr5AFa3ZBEhnD kuMjZaKNI0MdG4VDV6bMD ggD7tpPkrrahj lQ1fO6ZkREAdfyhfZn60a R1vWbPfKjW1IIzrJxd+Qk KEQ5BGZDTGD51SFIJAWV7 7LN73iRWrs7T9 pDY4G5PvKGRocfqbxeyqh WS4UYZuGVWcdB48eGLxNO syZn7rh5T3m223JKIjQLB pnZ75Yw3hiXpu DCIbdEDRbC8tezrbi4dqb hlwZpNlHYIsTMi7TUy0EP YkpTloUmLhKYS9NbK7BLA 9ySFerB9dnMwg yhpsqT4pQco+MDcvMDgvM Bo9OCfazVJ+JHDwFAS3vQ gcNLktAFNypX8xAJDzJ5c 5YzFcBzQ2DTgb N4RxHSLgteuiMs63uC6qA mVtSpA6QSmaW2VinnD7MK DvrXPxTHgrCWW8H64dv5O 6FSFqIPTuPIZ5 oVZ9iT6shJgbzmhpcLNhm DsgdmVydGljYWwtYWxpZ2 39XCQbdZjiCeX4FHamBPB nLB80UE96mNWb g6O4xEJ5X0HdNCRsnwxyn voarJK9MDGnJCUljS55gV FgWRbpFu2ye5F0j025GLI wFGGazB36Rb1a jPxpDAAucKXRvV4jzehqr 0gfcmmqZuVoQXGbIKy8JO q6GEKrdFuwXeVhCWS8SlU 3DEL0aLMlkU7h iRwoxdetdD2zZzg+RmVtY GpqLJ22JK25vPZxp3T4fH D5U2WvVQDbpycntlsduXE 0KCVtEQFveV49 sYScBXdqBu7gm8I1g595U QElLFFzyC71Up3hfFuxSX FspDSAcY3kwgfyj5ziraf gIzAwMDAwMDt0 WOa4UDClkUqmFvXmKBS3Q cV9MRC2iSVydB9kkNiwbh qoyU3uAop+KU6zchssjyD 3UL64WT78O0Pp PjwvdGFibGU+PHRhYmxlI HdpZHRoPScxMDAlJyBzdH qfFZ9cQl3sMHEbSDNwmVz ifMCeBkIkj7sq CWArZNjgFY0ssRhhL2Bci NC3BCXyu9l8Uz53P53wJ1 JvdXA+JGPkqPA5bSY5uB9 gChRgCbN2PJvg F707ZtBzpYZpReqze6hpf 9itvIw9TzWnLWInyvWupQ kyFNF7y0MjPf89G44rJAx pZHRoPSIyMCUi ZLCeqGsnuz0mmQ5iGd1+P ENhqGR6gIK2wC9yEdNjEg U4WVobD325SpPigRWgMun vZ26sM3KumRH+ DQGbFdr7NAYerSlpYD1xa GVsMAubBj5uYEC5CaFfTq QqWZguX7TuNQZqguyyhnk cdLQ8IYEwHHIn uY20Vo7ynOguPn5xNBYrS VO8URDshTRuW6ErvY7tFo DjKBLlUCMdL9QykPOxLIl mQ410RAjcDeL7 CWPtfvGbY3ZtAMGgnLyjR aR7y0W1Hl8ZmRdsbVHrCO 8uQzFdPJa1E1GkPcj7WUB feYquSP2ubAFl VBimGv5gvItpjNbhUC3oI LKwaotnq579NlDaj6dvOD QgwJIlADnnJCW0E72zf6C 9GHTpXFVhMWD6 yZV8tZ0yhXuhirnicHVaf DsgdmVydGljYWwtYWxpZ2 24WIUxgWpeXsTEYgt9W2Z sPzv9KITspOnl NS3flJPxEDowFe3srDuan PpiYR3wUSLjuidbu576Yz Kql0zaRBVujYRnXFpzGJK 1O38pf2U7ARDu WUYlJRI8oZJ7iA2qaKqji jogbGVmdDsgdmVydGljYW wpHMkjO959VJAsoStfDn2 YHpg2V9XqKay2 LNZmxXqgXE4vyMBlBIyfS h7qkDbjcTfqRU2dSGBrwi fcn078UgMqp7nzAMJzoVG yFYvzPVK8W80x q9H9ZTLfJJGdMZO5cVH2p U3wdOqufkixnFMofXwelw GalGyiXFbkNRzvP017JLC vcDsnPlBheWVy OjwvdGQ+MO61jv92W6OtB infJzg0GQUxYRY9yDS6oN 1kQRLlOVfoy6X5sEY3H1G zarQkvs2qp9dx PLNyZVclT84qz (more content not included)... Normal [facility] Consent for Treatmenton 09-27 Consent for Treatment [id number] .[id number] Normal [facility] Discharge Instructionson Discharge Instructions [id number] 1.00TIFF Normal [facility] ED Clinical Summaryon 2023 ED Clinical Summary [place] [address] ED Clinical Summary Person Information Name: ALEJANDRA REAL Suzi/[facility] Age: 27 Years : 1995 Sex: Female Language: Swiss PCP: Krystle Ireland CNP Marital Status: Single Phone: [phone] Visit Id: Visit Reason: Nausea; Back pain; [...] 10/21/2023 20:44:31 10/21/2023 20:44:31 10/21/2023 20:44:31 ADDRESS: [address] [place] [id number] [facility] DOC NOTES: MEDICAL INFORMATION: Prescriptions Given: Medications to Continue Taking That Have Changed [id number], [address] [place], [place] [id number], [phone] START: tramadol (traMADOL 50 mg Tab) 1 [...] Follow up: With: Address: When: Cristóbal Granados [address] [place] [address] Business (1) In 3 days 10/24/2023 With: Address: When: Pain Clinic: [facility] [phone] In 3 days 10/24/2023 With: Address: When: Krystle Ireland [address] [place] [address], [facility], [address] [place] [address] Business (1) In 3 days DIAGNOSIS: 1:Chronic pain disorder; 2:Pelvic congestion syndrome Normal [facility] ED Patient Education Noteon 10-21-2023 [...] Follow these instructions at home: ? Take fpbu-ias-oifizkd and prescription medicines only as told by [...] provider. Document Revised: 08/21/2021 Document Reviewed: 08/21/2021 [employer] Patient Education ? 2022 [facility]. [facility] ED Patient Summaryon 024 ED Patient Summary [address] [address] Patient Discharge Instructions Person Information Name: ALEJANDRA REAL Age: 27 Years Arrival Date: 10/21/2023 18:13:24 Discharge Diagnosis: 1:Chronic pain disorder; 2:Pelvic congestion syndrome Primary Care Physician: Krystle Ireland CNP Provider Information Primary Provider: Justo Arias DO Advanced Light Truck Driver:Juancho Colón PA-C. The exam and treatment you received in the Emergency Department were for an urgent problem and are not intended as complete care. It is important that you follow up with a doctor, nurse practitioner, or physician?s intellectual property legal assistant for ongoing care. If your symptoms [...] Follow-up Instructions: With: Address: When: Cristóbal Granados [address] [place] [address] [facility] () In 3 days 10/24/2023 With: Address: When: Pain Clinic: [facility] [phone] In 3 days 10/24/2023 With: Address: When: Krystle Ireland [address] [place] [address], [address] [place] [address] [facility] (1) In 3 days In the event that this physician does not participate in your insurance network, please consult with your insurance company to find a nearby participating provider. Patient Education Materials: Pelvic Pain, Female A MESSAGE TO ALL PATIENTS REGARDING OPIOIDS PRESCRIPTION OPIOIDS: WHAT YOU NEED TO KNOW Prescription opioids can be used to help relieve mfkfbsou-vk-ucqwkm pain and are often prescribed following a [...] www.cdc.gov/drugoverd o (more content not included)... Normal [facility] SEROLOGYOrdered By: Azam Cloud urgeon on 10-21-2023 HCG.beta subunit (U) [Moles/Vol] Negative Normal [facility] Man Sero U BetaHcg Qualon 10-21-2023 HCG.beta subunit (U) [Moles/Vol] Negative Normal [facility] Comment on above: Performed By: #### 2 [id number] #### [facility] Laboratory [address] [place] [address] UA with Cult Rflxon 10-21-19 24 Bilirubin Ql (U) Negative Normal Negative [facility] Comment on above: Performed By: #### 4 [id number] ####[facility] [address] [place] [address] Clarity (U) Clear Normal Clear [facility] Comment on above: Performed By: #### 4 [id number] ####[facility] [address] [place] [address] Color (U) Light-Yellow Normal Yellow [facility] Comment on above: Result Comment: Micr oscopic readings are only performed on those samples that meet specific criteria set forth by [facility] Laboratory. Performed By: #### 4 [id number] ####[facility] [address] [facility] [address] Glucose Ql (U) Negative Normal Negative [facility] Comment on above: Performed By: #### 4 [id number] ####[facility] [address] [employer] [place] [address] Hemoglobin Auto test strip (U) [Mass/Vol] Negative Normal Negative [facility] Comment on above: Performed By: #### 4 [id number] ####[facility] [address] [employer] [place] [address] Ketones Auto test strip Ql (U) Negative Normal Negative [facility] Comment on above: Performed By: #### 4 [id number] ####[address] [address] Leukocyte esterase Auto test strip Ql (U) Negative Normal Negative [facility] Comment on above: Performed By: #### 4 [id number] ####[address] [address] Nitrite Auto test strip Ql (U) Negative Normal Negative [facility] Comment on above: Performed By: #### 4 [id number] ####[address] [address] pH (U) 6.5 [pH] Invalid Interpretation Code 5.0-9.0 [facility] Comment on above: Performed By: #### 4 [id number] ####[address] [address] Protein Ql (U) Negative Normal Negative [facility] Comment on above: Performed By: #### 4 [id number] ####[place] [id number] Specific gravity (U) [Rel density] 1.014 Invalid Interpretation Code 1.005-1.030 [facility] Comment on above: Performed By: #### 4 [id number] ####[address] [address] Urobilinogen (U) [Mass/Vol] Negative Normal Negative [facility] Comment on above: Performed By: #### 4 [id number] ####[address] [address] Type of Urine collection method Clean Catch Normal [facility] Comment on above: Performed By: #### 4 [id number] ####[address] [address] URINALYSISOrdered By: SYSTEM SYSTEM on 10-21-2023 Bilirubin [...] that meet specific criteria set forth by [facility] Laboratory. Glucose Ql (U) Negative [...] PM) Invalid Interpretation Code 5.0 - 9.0 [facility] UA Auto SS Protein Ql (U) Negative Normal Negativemg/d L [facility] UA Auto SS Specific gravity (U) [Rel density] 1.014 *NA* (10/21/23 6:29 PM) Invalid Interpretation Code 1.005 - 1.030 [facility] UA Auto SS Urobilinogen (U) [Mass/Vol] Negative Normal Negativemg/d L [facility] UA Auto SS URINALYSISOrdered By: Justo contreras on 10-21-2023 UA Spec Desc Clean Catch (10/21/23 6:29 PM) Normal [facility] UA Auto SS Work Phone: Consent for Treatmenton 09-27 Consent for Treatment [id number] .00TIFF Normal [facility] Discharge Instructionson Discharge Instructions [id number] .00TIFF Normal [facility] ED Clinical Summaryon 2023 ED Clinical Summary [address] [address] ED Clinical Summary Person Information Name: ALEJANDRA REAL [place] Age: 27 Years : 1995 Sex: Female Language: Swiss PCP: Krystle Ireland CNP Marital Status: Single Phone: [phone] Visit Id: Visit Reason: Pelvic pain; PELVIC [...] 14:02:31 ADDRESS: [address] [facility] [id number] PHYS DOC NOTES: MEDICAL INFORMATION: Prescriptions Given: Medications to Continue Taking That Have Changed [id number], [address] [place] [id number], [phone] START: ondansetron (Zofran ODT 4 mg Tab-Dis) [...] up: With: Address: When: Fatoumata Gooden [address] [place] [address] Business (1) In 3 days 10/22/2023 With: Address: When: Krystle Ireland [address] [place] [address], [facility], [address] [place] [address] Business (1) In 3 days DIAGNOSIS: Chronic female pelvic pain; Other chronic pain Normal [facility] ED Note-Physicianon 06-23-20 24 ED [...] and Complexity of Problems Differential Diagnosis: [] [facility] Data External documents reviewed: [] My [...] Nausea/Vomiting, # 20 tab(s), Refills(s) 0, Pharmacy: [facility]/pharmacy #[id number], 160, cm, 10/19/23 12:58:00 EDT, Height/Length Dosing, 65, kg, 10/19/23 12:58:00 EDT, Weight Dosing tramadol, 50 mg = 1 tab(s), Oral, q6hr, PRN for pain, X 3 day(s), # 10 tab(s), Refills(s) 0, Pharmacy: [facility]/pharmacy #[id number], 160, cm, 10/19/23 12:58:00 EDT, [...] Gooden In 3 days 10/22/2023 EDT [address] [place] [address]- Business (1) Additional Instructions: Krystle Ireland In 3 days [address] [facility], [address] [place] [address]- Business (1) Additional Instructions: Attestation Patient seen and evaluated by the physician intellectual property legal assistant. Attending physician was present in the emergency department and supervised care. This visit was performed by both the physician and an APC. I performed all aspects of the MDM as documented. This report was transcribed using voice recognition software. Every effort was made to ensure accuracy, however, inadvertently computerized sap project manager mistakes may be present. Appropriate healthcare PPE was used in evaluating this patient. The patient was placed in a mask. The healthcare provider was wearing mask, gloves, and utilizing proper hand hygiene. All equipment was properly cleansed. I performed a substantive part of the MDM during the patient?s E/M visit. I personally made or approved the documen (more content not included)... Normal [facility] Comment on above: Result Comment: Elec tronically Signed By: Ulisses Mckinney PA-C\.br\Date and Time Signed: 10/19/23 15:12 EDT\.br\Electronically Co-Signed By: Mary Jane Palm M.D.\.br\Date and Time Co-Signed: 10/19/23 19:47 EDT ED Patient Education Noteon 10-19-2023 ED Patient Education Note Normal [facility] ED Patient Summaryon 024 ED Patient Summary [facility] [address] [place], [place] [address] Patient Discharge Instructions Person Information Name: ALEJANDRA REAL Age: 27 Years Arrival Date: 10/19/2023 12:41:39 Discharge Diagnosis: Chronic female pelvic pain; Other chronic pain Primary Care Physician: Krystle Ireland CNP Provider Information Primary Provider: Mary Jane Palm M.D. Advanced Light Truck Driver:None The exam and treatment you received in the Emergency Department were for an urgent problem and are not intended as complete care. It is important that you follow up with a doctor, nurse practitioner, or physician?s intellectual property legal assistant for ongoing care. If your symptoms [...] Instructions: With: Address: When: Fatoumata Wagneran [address] [place] [address] Business (1) In 3 days 10/22/2023 With: Address: When: Krystle Ireland [address] [place] [address], [address] [place] [address] Business (1) In 3 days In the event that this physician does not participate in your insurance network, please consult with your insurance company to find a nearby participating provider. Patient Education Materials: A MESSAGE TO ALL PATIENTS REGARDING OPIOIDS PRESCRIPTION OPIOIDS: WHAT YOU NEED TO KNOW Prescription opioids can be used to help relieve nacpbdqd-vr-vjewgd pain and are often prescribed following a [...] tell your (more content not included)... Normal [facility] ED Note-Physicianon 10-18-19 ED Note-Physician [...] Gooden In 3 days 10/20/2023 EDT [address] [place] [address]- Business (1) Additional Instructions: Follow-up with Dr. Gooden for further management of care. Krystle Ireland In 3 days 10/20/2023 EDT [address] [facility], [address] [place] [address]- Business (1) Additional Instructions: Patient Education Abdominal Pain, Adult, Lbjq-vi-Lhby Attestation Patient seen and evaluated by the physician intellectual property legal assistant. Attending physician was present in the emergency department and supervised care. This visit was performed by both the physician and an APC. I performed all aspects of the MDM as documented. This report was transcribed using voice recognition software. Every effort was made to ensure accuracy, however, inadvertently computerized sap project manager mistakes may be present. Appropriate healthcare [...] pain Right (more content not included)... Normal [facility] Comment on above: Result Comment: [...] mGy = na DAP = na Normal [facility] Consent for Treatmenton 09-27 Consent for Treatment [id number] .00TIFF Normal [facility] Discharge Instructionson Discharge Instructions [id number] 1.00TIFF Normal [facility] ED Clinical Summaryon 2023 ED Clinical Summary [place] [address] ED Clinical Summary Person Information Name: ALEJANDRA REAL [place] Age: 27 Years : 1995 Sex: Female Language: Swiss PCP: Krystle Ireland CNP Marital Status: Single Phone: [phone] Visit Id: Visit Reason: Buttock qmvcwr-ibnf-zxiyimfu; Pelvic pain; ABD PAIN, BUTTOCK PAIN Speciality: [...] 10/17/2023 18:55:06 10/17/2023 18:55:06 10/17/2023 18:55:06 ADDRESS: [address] [place] [address] [address] [facility] [id number] PHYS DOC NOTES: MEDICAL INFORMATION: Prescriptions Given: [...] PATIENT EDUCATION INFORMATION: Instructions: Abdominal Pain, Adult, Wwzl-vp-Pmiy Follow up: With: Address: When: Fatoumata Gooden [address] [place] [phone] Business (1) In 3 days 10/20/2023 Comments: Follow-up with Dr. Gooden for further management of care. With: Address: When: Krystle Ireland [address] [facility], [facility], [address] [place] [address] Business (1) In 3 days 10/20/2023 DIAGNOSIS: Chronic female pelvic pain; Other chronic pain Normal [facility] ED Note-Physicianon 10-17-19 ED Note-Physician [...] Diagnostic Results No qualifying data available. Normal [facility] Comment on above: Other Comment: [...] these instructions at home: Medicines ? Take aowj-oyo-debmhak and prescription medicines only as told by [...] belly pain for any changes. ? Take zlkk-nhb-cwhzcdr and prescription medicines only as told by [...] Reviewed: 08/23/2019 Elsevier Patient Education ? 2022 [employer] Normal [facility] ED Patient Summaryon 024 ED Patient Summary [place] [address] Patient Discharge Instructions Person Information Name: ALEJANDRA REAL Age: 27 Years Arrival Date: 10/17/2023 17:12:33 Discharge Diagnosis: Chronic female pelvic pain; Other chronic pain Primary Care Physician: Krystle Ireland CNP Provider Information Primary Provider: Darren Lomax DO Advanced Light Truck Driver:France Day PA-C The exam and treatment you received in the Emergency Department were for an urgent problem and are not intended as complete care. It is important that you follow up with a doctor, nurse practitioner, or physician?s intellectual property legal assistant for ongoing care. If your symptoms [...] Follow-up Instructions: With: Address: When: Fatoumata Gooden [address] [place] [address] Business (1) In 3 days 10/20/2023 Comments: Follow-up with Dr. Gooden for further management of care. With: Address: When: Krystle Ireland [address] [place] [address], [address] [place] [phone] Business (1) In 3 days 10/20/2023 In the event that this physician does not participate in your insurance network, please consult with your insurance company to find a nearby participating provider. Patient Education Materials: Abdominal Pain, Adult, Nnqp-vo-Bgqp A MESSAGE TO ALL PATIENTS REGARDING OPIOIDS PRESCRIPTION OPIOIDS: WHAT YOU NEED TO KNOW Prescription opioids can be used to help relieve qgpwpqgd-xg-ftqqmr pain and are often prescribed following a [...] Visit www.cdc.gov/emerson (more content not included)... Normal [facility] UA with Cult Rflxon 10-17-19 24 Bilirubin Ql (U) Negative Normal Negative [facility] Comment on above: Performed By: #### 4 [id number] ####[facility] [address] [place] [address] Clarity (U) Clear Normal Clear [facility] Comment on above: Performed By: #### 4 [id number] ####[facility] [address] [place] [address] Color (U) Light-Yellow Normal Yellow [facility] Comment on above: Result Comment: Micr oscopic readings are only performed on those samples that meet specific criteria set forth by [facility] Laboratory. Performed By: #### 4 [id number] ####[facility] [address] [place] [address] Glucose Ql (U) Negative Normal Negative [facility] Comment on above: Performed By: #### 4 [id number] ####[facility] [address] [place] [address] Hemoglobin Auto test strip (U) [Mass/Vol] Negative Normal Negative [facility] Comment on above: Performed By: #### 4 [id number] ####[facility] [address] [place] [address] Ketones Auto test strip Ql (U) Negative Normal Negative [facility] Comment on above: Performed By: #### 4 [id number] ####[facility] [address] [place] [address] Leukocyte esterase Auto test strip Ql (U) Negative Normal Negative [facility] Comment on above: Performed By: #### 4 [id number] ####[facility] [address] [place] [address] Nitrite Auto test strip Ql (U) Negative Normal Negative [facility] Comment on above: Performed By: #### 4 [id number] ####[facility] [address] [place] [address] pH (U) 6.0 [pH] Invalid Interpretation Code 5.0-9.0 [facility] Comment on above: Performed By: #### 4 [id number] ####[address] [address] Protein Ql (U) Negative Normal Negative [facility] Comment on above: Performed By: #### 4 [id number] ####[address] [address] Specific gravity (U) [Rel density] 1.013 Invalid Interpretation Code 1.005-1.030 [facility] Comment on above: Performed By: #### 4 [id number] ####[address] [address] Urobilinogen (U) [Mass/Vol] Negative Normal Negative [facility] Comment on above: Performed By: #### 4 [id number] ####[address] [address] Type of Urine collection method Clean Catch Normal [facility] Comment on above: Performed By: #### 4 [id number] ####[place] [id number] URINALYSISOrdered By: SYSTEM SYSTEM on 10-17-2023 Bilirubin Ql (U) Negative Normal Negativemg/ d L [facility] UA Auto SS Clarity (U) Clear (10/17/23 6:27 PM) Normal Clear [facility] UA Auto SS Color (U) Light-Yellow 1 (10/17/23 6:27 PM) Normal Yellow [facility] UA Auto SS Comment on above: Interpretive Data: M icroscopic readings are only performed on those samples that meet specific criteria set forth by [facility] Laboratory. Glucose Ql (U) Negative [...] Desc Clean Catch (10/17/23 6:27 PM) Normal [facility] UA Auto SS Work Phone: ED Note-Physicianon [...] and Complexity of Problems Differential Diagnosis: [] [facility] Data External documents reviewed: [] My [...] day(s), # 10 tab(s), Refills(s) 0, Pharmacy: [facility]/pharmacy #[id number], 160, cm, 10/05/23 19:30:00 EDT, [...] Beka In 3 days 10/08/2023 EDT [address] [facility], [address] [place] [phone] Business (1) Additional Instructions: Call Dr for diagnosis based follow up Attestation Patient seen and evaluated by the physician intellectual property legal assistant. Attending physician was present in the emergency department and supervised care. This visit was performed by both the physician and an APC. I performed all aspects of the MDM as documented. This report was transcribed using voice recognition software. Every effort was made to ensure accuracy, however, inadvertently computerized sap project manager mistakes may be present. Appropriate healthcare [...] as above. (more content not included)... Normal [facility] Comment on above: Result Comment: Elec tronically Signed By: Ulisses Mckinney PA-C\.br\Date and Time Signed: 10/05/23 22:36 EDT\.br\Electronically Co-Signed By: Bruno Jara DO\.br\Date and Time Co-Signed: 10/06/23 02:45 EDT Consent for Treatmenton Consent for Treatment [id number] .00TIFF Normal [facility] Discharge Instructionson Discharge Instructions [id number] .00TIFF Normal [facility] ED Clinical Summaryon 2023 ED Clinical Summary [address] [address] ED Clinical Summary Person Information Name: ALEJANDRA REAL [place] Age: 27 Years : 1995 Sex: Female Language: Swiss PCP: Krystle Ireland CNP Marital Status: Single Phone: [phone] Visit Id: Visit Reason: Dysuria; Abdominal pain [...] 20:44:09 ADDRESS: [address] [facility] [id number] PHYS DOC NOTES: MEDICAL INFORMATION: Prescriptions Given: Medications to Continue Taking That Have Changed [id number], [address] [place], [place] [id number], [phone] START: tramadol (traMADOL 50 mg Tab) 1 [...] Follow up: With: Address: When: Krystle Ireland [address] [place] [address], [facility] [address] [place] [address] [facility] (1) In 3 days 10/08/2023 Comments: Call Dr for diagnosis based follow up DIAGNOSIS: Chronic abdominal pain; Other chronic pain Normal [facility] ED Patient Education Noteon 10-05-2023 ED Patient Education Note Normal [facility] ED Patient Summaryon 024 ED Patient Summary [address] [address] Patient Discharge Instructions Person Information Name: DAXMEAGANZELDA Russo Age: 27 Years Arrival Date: 10/05/2023 19:20:52 Discharge Diagnosis: Chronic abdominal pain; Other chronic pain Primary Care Physician: Krystle Ireland CNP Provider Information Primary Provider: Bruno Jara DO Advanced Light Truck Driver:None The exam and treatment you received in the Emergency Department were for an urgent problem and are not intended as complete care. It is important that you follow up with a doctor, nurse practitioner, or physician?s intellectual property legal assistant for ongoing care. If your symptoms [...] Follow-up Instructions: With: Address: When: Krystle Ireland [address] [place] [address], [address] [place] [address] [facility] (1) In 3 days 10/08/2023 Comments: [...] opioids can be used to help relieve aczzjpqw-kg-peesaj pain and are often prescribed following a [...] be struggling with addiction, tell your health home care music therapist and ask for guidance or call [facility] (more content not included)... Normal [facility] SEROLOGYOrdered By: Kyle Mcgill on 10-05-2023 HCG.beta subunit (U) [Moles/Vol] Negative Normal [facility] Man Sero U BetaHcg Qualon 10-05-2023 HCG.beta subunit (U) [Moles/Vol] Negative Normal [facility] Comment on above: Performed By: #### 2 [id number] #### [facility] [address] [place] [address] UA with Cult Rflxon 10-05-19 24 Bilirubin Ql (U) Negative Normal Negative [facility] Comment on above: Performed By: #### 4 [id number] #### [facility] [address] [place] [address] Clarity (U) Clear Normal Clear [facility] Comment on above: Performed By: #### 4 [id number] #### [facility] [address] [place] [address] Color (U) Light-Yellow Normal Yellow [facility] Comment on above: Result Comment: Micr oscopic readings are only performed on those samples that meet specific criteria set forth by [facility]. Performed By: #### 4 [id number] #### [facility] [address] [place] [address] Glucose Ql (U) Negative Normal Negative [facility] Comment on above: Performed By: #### 4 [id number] #### [facility] [address] [place] [address] Hemoglobin Auto test strip (U) [Mass/Vol] Negative Normal Negative [facility] Comment on above: Performed By: #### 4 [id number] #### [facility] [address] [place] [address] Ketones Auto test strip Ql (U) Negative Normal Negative [facility] Comment on above: Performed By: #### 4 [id number] #### [facility] [address] [place] [address] Leukocyte esterase Auto test strip Ql (U) Negative Normal Negative [facility] Comment on above: Performed By: #### 4 [id number] #### [facility] [address] [place] [address] Nitrite Auto test strip Ql (U) Negative Normal Negative [facility] Comment on above: Performed By: #### 4 [id number] #### [facility] [address] [place] [address] pH (U) 6.0 [pH] Invalid Interpretation Code 5.0-9.0 [facility] Comment on above: Performed By: #### 4 [id number] #### [facility] [address] [place] [address] Protein Ql (U) Negative Normal Negative [facility] Comment on above: Performed By: #### 4 [id number] #### [facility] [address] [place] [address] Specific gravity (U) [Rel density] 1.027 Invalid Interpretation Code 1.005-1.030 [facility] Comment on above: Performed By: #### 4 [id number] #### [facility] [address] [place] [address] Urobilinogen (U) [Mass/Vol] Negative Normal Negative [facility] Comment on above: Performed By: #### 4 [id number] #### [facility] [address] [place] [address] Type of Urine collection method Clean Catch Normal [facility] Comment on above: Performed By: #### 4 [id number] #### [facility] [address] [place] [address] URINALYSISOrdered By: SYSTEM SYSTEM on 10-05-2023 Bilirubin [...] that meet specific criteria set forth by [facility]. Glucose Ql (U) Negative [...] for Treatmenton Consent for Treatment [id number] .00TIFF Normal [facility] Discharge Instructionson Discharge Instructions [id number] 1.00TIFF Normal [facility] ED Clinical Summaryon 2023 ED Clinical Summary [place] [id number] ED Clinical Summary Person Information Name: ALEJANDRA REAL Suzi/[facility] Age: 27 Years : 1995 Sex: Female Language: Swiss PCP: Krystle Ireland CNP Marital Status: Single Phone: [phone] Visit Id: Visit Reason: Pelvic pain; Dysuria; [...] 10/02/2023 07:48:33 10/02/2023 07:48:33 10/02/2023 07:48:33 ADDRESS: [facility] [address] [facility] [phone] PHYS DOC NOTES: MEDICAL INFORMATION: Prescriptions Given: Medications to Continue Taking That Have Changed [facility]/pharmacy #[id number], [address] [place], [place] [id number], [phone] START: tramadol (traMADOL 50 mg Tab) 1 [...] Follow up: With: Address: When: Krystle Ireland [address] [place] [address], [facility], [address] [place] [id number] [employer] (1) In 3 days 10/05/2023 Comments: Return to the emergency room if your pain gets worse, vomiting, fever or any new symptoms. DIAGNOSIS: 1:Dysuria; Chronic abdominal pain; Other chronic pain Normal [facility] ED Note-Physicianon 10-02-19 ED Note-Physician [...] and Complexity of Problems Differential Diagnosis: [] [facility] Data External documents reviewed: [] My [...] in h (more content not included)... Normal [facility] Comment on above: Result Comment: Elec tronically Signed By: Arpita Latyon, Mary Jane Hurley\.br\Date and Time Signed: 10/02/23 [...] and Complexity of Problems Differential Diagnosis: [] [facility] Data External documents reviewed: [] My [...] in h (more content not included)... Normal [facility] Comment on above: Result Comment: [...] these instructions at home: Medicines ? Take rtzs-bpf-mznyftx and prescription medicines only as told by [...] your condition for any changes. ? Take otxn-cwr-mbicqvk and prescription medicines only as told by [...] provider. Document Revised: 06/02/2020 Document Reviewed: 08/23/2019 [employer] Patient Education ? 2022 [employer]. Mental [facility] Behavioral [facility] Chronic Pain, Adult [...] these instructions at home: Medicines ? Take rgrr-hiy-csgpnwt and prescription medicines only as told by your health care provider. ? Ask your health care provider if the medicine prescribed to you: ? Requires you to avoid driving or using machinery. ? Can cause constipation. You may need to take these actions to prevent or treat constipation: ? Drink enough fluid to keep your urine pale yellow. ? Take nzkq-nmy-jhngbux or prescription medicines. ? Eat foods that [...] feel pain. (more content not included)... Normal [facility] ED Patient Summaryon 024 ED Patient Summary [address] [address] Patient Discharge Instructions Person Information Name: ALEJANDRA REAL Age: 27 Years Arrival Date: 10/02/2023 06:22:47 Discharge Diagnosis: 1:Dysuria; Chronic abdominal pain; Other chronic pain Primary Care Physician: Krystle Ireland CNP Provider Information Primary Provider: Vivian Ochoa DO Advanced Light Truck Driver:None The exam and treatment you received in the Emergency Department were for an urgent problem and are not intended as complete care. It is important that you follow up with a doctor, nurse practitioner, or physician?s intellectual property legal assistant for ongoing care. If your symptoms [...] Follow-up Instructions: With: Address: When: Krystle Ireland [address] [place] [address], [facility], [address] [place] [address] [facility] (1) In 3 days 10/05/2023 Comments: [...] opioids can be used to help relieve nemyomjz-sp-yutnxo pain and are often prescribed following a [...] you believe (more content not included)... Normal [facility] SEROLOGYOrdered By: Brii Walters on 10-02-2023 HCG.beta subunit (U) [Moles/Vol] Negative Normal [facility] Man Sero U BetaHcg Qualon 10-02-2023 HCG.beta subunit (U) [Moles/Vol] Negative Normal [facility] Comment on above: Performed By: #### 2 [id number] #### [facility] Laboratory [address] [place] [address] UA with Cult Rflxon 10-02-19 24 Bilirubin Ql (U) Negative Normal Negative [facility] Comment on above: Performed By: #### 4 [id number] #### [facility] [address] [place] [address] Clarity (U) Turbid Abnormal Clear [facility] Comment on above: Performed By: #### 4 [id number] #### [facility] [address] [place] [address] Color (U) Yellow Normal Yellow [facility] Comment on above: Result Comment: Micr oscopic readings are only performed on those samples that meet specific criteria set forth by [facility] Laboratory. Performed By: #### 4 [id number] #### [facility] [address] [place] [address] Epithelial cells.squamous Auto (Urine sed) [#/Area] 0-2 Normal 0-2 [facility] Comment on above: Performed By: #### 4 [id number] #### [facility] [address] [place] [address] Glucose Ql (U) Negative Normal Negative [facility] Comment on above: Performed By: #### 4 [id number] #### [facility] [address] [place] [address] Hemoglobin Auto test strip (U) [Mass/Vol] Negative Normal Negative [facility] Comment on above: Performed By: #### 4 [id number] #### [facility] [address] [place] [address] Ketones Auto test strip Ql (U) Negative Normal Negative [facility] Comment on above: Performed By: #### 4 [id number] #### [facility] [address] [place] [address] Leukocyte esterase Auto test strip Ql (U) Negative Normal Negative [facility] Comment on above: Performed By: #### 4 [id number] #### [facility] [address] [place] [address] Mucus Auto Ql (U) Trace Normal Negative [facility] Comment on above: Performed By: #### 4 [id number] #### [facility] [address] [place] [address] Nitrite Auto test strip Ql (U) Negative Normal Negative [facility] Comment on above: Performed By: #### 4 [id number] #### [facility] [address] [place] [address] pH (U) 7.0 [pH] Invalid Interpretation Code 5.0-9.0 [facility] Comment on above: Performed By: #### 4 [id number] #### [facility] [address] [place] [address] Protein Ql (U) Trace Abnormal Negative [facility] Comment on above: Performed By: #### 4 [id number] #### [facility] [address] [place] [address] RBC Ql (U) 0-3 Normal 0-3 [facility] Comment on above: Performed By: #### 4 [id number] #### [facility] [address] [place] [address] Specific gravity (U) [Rel density] 1.032 Invalid Interpretation Code 1.005-1.030 [facility] Comment on above: Performed By: #### 4 [id number] #### [facility] [address] [place] [address] Urobilinogen (U) [Mass/Vol] 2 mg/dL Abnormal Negative [facility] Comment on above: Performed By: #### 4 [id number] #### [facility] [address] [place] [address] WBC Auto (Urine sed) [#/Area] 0-5 Normal 0-5 [facility] Comment on above: Performed By: #### 4 [id number] #### [facility] Laboratory [address] [place] [address] Type of Urine collection method Clean Catch Normal [facility] Comment on above: Performed By: #### 4 [id number] #### [facility] [address] [place] [address] URINALYSISOrdered By: Michael Walters on 10-02-2023 Bilirubin Ql (U) Negative Normal Negativemg/ d L [facility] UA Auto SS Clarity (U) Turbid *ABN* (10/02/23 6:38 AM) Invalid Interpretation Code Clear [facility] UA Auto SS Color (U) Yellow 1 (10/02/23 6:38 AM) Normal Yellow FT UA Auto SS Comment on above: Interpretive Data: M icroscopic readings are only performed on those samples that meet specific criteria set forth by [facility]. Epithelial cells.squamous Auto (Urine [...] Desc Clean Catch (10/02/23 6:38 AM) Normal [facility] UA Auto SS Work Phone: ED Note-Physicianon [...] and Complexity of Problems Differential Diagnosis: [] [facility] Data External documents reviewed: [] My [...] day(s), # 9 tab(s), Refills(s) 0, Pharmacy: [facility]/pharmacy #[id number], 160, cm, 09/24/23 15:37:00 EDT, Height/Length Dosing, 65, kg, 09/24/23 15:37:00 EDT, Weight Dosing tramadol, 50 mg = 1 tab(s), Oral, q6hr, PRN for pain, X 3 day(s), # 12 tab(s), Refills(s) 0, Pharmacy: [facility]/pharmacy #[id number], 160, cm, 09/24/23 15:37:00 EDT, [...] Gooden In 3 days 09/27/2023 EDT [address] [place] [address] Business (1) Additional Instructions: Call Dr for diagnosis based follow up Krystle Ireland In 3 days 09/27/2023 EDT [address] [facility], [address] [place] [id number]- [employer] (1) Additional Instructions: Call for diagnosis based follow up Patient Education Dysuria Attestation Patient seen and evaluated by the physician intellectual property legal assistant. Yvette (more content not included)... Normal [facility] Comment on above: Result Comment: Elec tronically Signed By: Ulisses Mckinney PA-C\.br\Date and Time Signed: 09/24/23 16:26 EDT\.br\Electronically Co-Signed By: Suman DC, Guille\.br\Date and Time Co-Signed: 09/28/23 10:51 EDT Automated basophil %Ordered By: Neptali Esquivel on 09-27-2023 Basophils/100 WBC (Bld) 0.2 % Normal . [facility] Comment on above: Performed By: #### C BC, BMP #### [address] Automated basophil countOrde red By: Neptali Esquivel on 09-27-2023 Basophils (Bld) [#/Vol] 0.0 10*3/uL Normal 0.0-0.2 [facility] Comment on above: Result Comment: PERF ORMED BY: [place] [address] PATHOLOGIST VETERINARY SURGERY TECHNICIAN ALEXANDER SANDERS M.D. Performed By: #### C BC, BMP #### [address] Automated blood monocyte cou ntOrdered By: Neptali Esquivel on 09-27-2023 Monocytes (Bld) [#/Vol] 0.3 10*3/uL Normal 0.0-0.8 [facility] Comment on above: Performed By: #### C BC, BMP #### [address] Automated eosinophil %Ordere d By: Neptali Esquivel on 09-27-2023 Eosinophils/100 WBC (Bld) 0.5 % Normal . [facility] Comment on above: Performed By: #### C BC, BMP #### [address] Automated eosinophil countOr dered By: Neptali Esquivel on 09-27-2023 Eosinophils (Bld) [#/Vol] 0.0 10*3/uL Normal 0.0-0.45 [facility] Comment on above: Performed By: #### C BC, BMP #### [address] Automated monocyte %Ordered By: Neptali Esquivel on 09-27-2023 Monocytes/100 WBC (Bld) 5.1 % Normal . F [facility] Comment on above: Performed By: #### C BC, BMP #### [address] Automated neutrophil %Ordere d By: Neptali Esquivel on 09-27-2023 Neutrophils/100 WBC (Bld) 73.0 % Normal . [facility] Comment on above: Performed By: #### C BC, BMP #### [address] Basic Metabolic Panelon 06-0 Creatinine Clr Calc Pharmacy 93.76 Normal [facility] Comment on above: Result Comment: PERF ORMED BY: [place] [address] PATHOLOGIST VETERINARY SURGERY TECHNICIAN ALEXANDER SANDERS M.D. Performed By: #### C BC, BMP #### [address] GFR/1.73 sq M.predicted MDRD (S/P/Bld) [Vol rate/Area] mL/min/{1.73_m2} Normal [facility] Comment on above: Performed By: #### C BC, BMP #### [address] Bilirubin Test strip Ql (U)O rdered By: Neptali Esquivel on 09-27-2023 Bilirubin Ql (U) Negative Negative [facility] Calcium [Mass/volume] in Ser um or PlasmaOrdered By: Neptali Esquivel on 09-27-2023 Calcium [Mass/Vol] 9.7 mg/dL Normal 8.6-10.3 [facility] Comment on above: Performed By: #### C BC, BMP #### [address] Carbon dioxide, total [Moles /volume] in Serum or PlasmaOrdered By: Neptali Esquivel on 09-27-2023 CO2 [Moles/Vol] 28.3 mmol/L Normal 21.0-31.0 [facility] Comment on above: Performed By: #### C BC, BMP #### [address] Chloride [Moles/volume] in S gabbie or PlasmaOrdered By: Neptali Esquivel on 09-27-2023 Chloride [Moles/Vol] 107 mmol/L Normal 98-107 [facility] Comment on above: Performed By: #### C BC, BMP #### [address] Color of Urine by AutoOrdere d By: Neptali Esquivel on 09-27-2023 Color (U) Yellow Normal Yellow [facility] Comment on above: Order Comment: Name Collection Type:: Clean-Voided Midstream Performed By: #### U HCG, UA #### [address] Complete Blood Count Auto Di ffon 09-27-2023 Mean Corpuscular HGB Conc 34.0 g/dL Normal 32.0-35.0 [facility] Comment on above: Performed By: #### C BC, BMP #### [address] Monocytes/100 WBC (Bld) 16.50 % Normal 0.00-20.00 [facility] Comment on above: Performed By: #### C BC, BMP #### [address] NRBC% 0.2 /100{WBC} Normal 0-0.5 [facility] Comment on above: Performed By: #### C BC, BMP #### [facility] [address] [place] [address] [facility] Consent for Treatmenton Consent for Treatment [id number] .00TIFF Normal [facility] Creatinine [Mass/volume] in Serum or PlasmaOrdered By: Neptali Esquivel on 09-27-2023 Creatinine [Mass/Vol] 0.81 mg/dL Normal 0.60-1.20 [facility] Comment on above: Performed By: #### C JOY, BMP #### [facility] [address] [place] [id number] [facility] Discharge Instructionson Discharge Instructions [id number] 1.00TIFF Normal [facility] ED Clinical Summaryon 2023 ED Clinical Summary [place] [id number] ED Clinical Summary Person Information Name: ALEJANDRA REAL Suzi/[facility] Age: 27 Years : 1995 Sex: Female Language: Swiss PCP: Krystle Ireland CNP Marital Status: Single Phone: [phone] Visit Id: Visit Reason: Dysuria; Pelvic pain; [...] 09/27/2023 10:45:34 09/27/2023 10:45:34 09/27/2023 10:45:34 ADDRESS: [facility] [address] [place] [phone] [facility] DOC NOTES: MEDICAL INFORMATION: Prescriptions Given: [...] Follow up: With: Address: When: Krystle Ireland [address] [place] [address], [facility], [place] [phone] Business (1) In 3 days 09/30/2023 DIAGNOSIS: Chronic pain in female pelvis; Other chronic pain Normal [facility] ED Note-Physicianon 09-27-19 ED Note-Physician [...] Krystle Ireland In 3 days 09/30/[address] [place] [address], [address] [place] [phone] [facility] (1) Additional Instructions: Patient Education Chronic [...] made to ensure accuracy, however, inadvertently computerized sap project manager mistakes may be present. Appropriate healthcare [...] No. Smok (more content not included)... Normal [facility] Comment on above: Result Comment: [...] these instructions at home: Medicines ? Take vwcq-qwl-eoftsrj and prescription medicines only as told by your health care provider. ? Ask your health care provider if the medicine prescribed to you: ? Requires you to avoid driving or using machinery. ? Can cause constipation. You may need to take these actions to prevent or treat constipation: ? Drink enough fluid to keep your urine pale yellow. ? Take oytz-emd-bfhgklx or prescription medicines. ? Eat foods that [...] or: ? Call your local emergency services (553 in the [place] ? Call a suicide crisis helpline, such as the National Suicide Prevention Lifeline at or 873 in the [place] This is open 24 hours a day in the [place] ? Text the Crisis Text Line at 593086 (in the [place] Summary ? Chronic pain is a type of pain that lasts or keeps coming back for at least 3?6 months. ? Chronic pain may be related to an illness, injury, or other health condition. Sometimes, the cause of chronic pain is not known. ? Treatment depends on the cause and severity of your pain. ? (more content not included)... Normal [facility] ED Patient Summaryon 024 ED Patient Summary [address] [address] Patient Discharge Instructions Person Information Name: ALEJANDRA REAL Age: 27 Years Arrival Date: 09/27/2023 10:29:45 Discharge Diagnosis: Chronic pain in female pelvis; Other chronic pain Primary Care Physician: Krystle Ireland CNP Provider Information Primary Provider: Darren Lomax DO Advanced Light Truck Driver:Sy Pickard PA-C The exam and treatment you received in the Emergency Department were for an urgent problem and are not intended as complete care. It is important that you follow up with a doctor, nurse practitioner, or physician?s intellectual property legal assistant for ongoing care. If your symptoms [...] Follow-up Instructions: With: Address: When: Krystle Ireland [address] [place] [address], [facility], [address] [place] [address] Business (1) In 3 days 09/30/2023 In the event that this physician does not participate in your insurance network, please consult with your insurance company to find a nearby participating provider. Patient Education Materials: Chronic Pain, Adult A MESSAGE TO ALL PATIENTS REGARDING OPIOIDS PRESCRIPTION OPIOIDS: WHAT YOU NEED TO KNOW Prescription opioids can be used to help relieve xrigzghb-qq-yogizx pain and are often prescribed following a [...] be struggling with addiction, tell your health home care music therapist and ask for guidance or call [facility] (more content not included)... Normal [facility] Erythrocyte distribution wid th [Ratio] by Automated countOrdered By: Neptali Esquivel on 09-27-2023 Erythrocyte distribution width (RBC) [Ratio] 13.5 % Normal 11.9-15.3 [facility] Comment on above: Performed By: #### C BC, BMP #### [place] [address] [place] Erythrocytes [#/volume] in B lood by Automated countOrdered By: Neptali Esquivel on 09-27-2023 RBC (Bld) [#/Vol] 4.52 10*6/uL Normal 3.60-5.00 [facility] Comment on above: Performed By: #### C BC, BMP #### [facility] [address] [place] [address] [place] Glucose [Mass/volume] in Ser um or PlasmaOrdered By: Neptali Esquivel on 09-27-2023 Glucose [Mass/Vol] 96 mg/dL Normal 70-100 [facility] Comment on above: ADA recommended refe rence rangeRandom Glucose Reference Range is dependent on time and content of last meal. Glucose of more than 200 mg/dL in a nonstressed, ambulatory subject supports the diagnosis of Diabetes Mellitus. Result Comment: [place] om Glucose Reference Range is dependent on time and content of last meal. Glucose of more than 200 mg/dL in a nonstressed, ambulatory subject supports the diagnosis of Diabetes Mellitus. ADA recommended reference range Performed By: #### C BC, BMP #### [place] [address] [place] HCG ( test) IA.rapi d Ql (U)Ordered By: Neptali Esquivel on 09-27-2023 HCG ( test) Ql (U) Negative [facility] HCG,Urineon 09-27-2023 Beta HCG ( test) Ql (U) Negative Normal [facility] Comment on above: Order Comment: Name Collection Type:: Clean-Voided Midstream Result Comment: PERF ORMED BY: [place] [address] PATHOLOGIST VETERINARY SURGERY TECHNICIAN ALEXANDER SANDERS M.D. Performed By: #### U HCG, UA #### [address] Hematocrit [Volume Fraction] of Blood by Automated countOrdered By: Neptali Esquivel on 09-27-2023 Hematocrit (Bld) [Volume fraction] 40.3 % Normal 34.0-46.4 [facility] Comment on above: Performed By: #### C BC, BMP #### [address] Hemoglobin [Mass/volume] in BloodOrdered By: Neptali Esquivel on 09-27-2023 Hemoglobin (Bld) [Mass/Vol] 13.7 g/dL Normal 11.8-15.4 [facility] Comment on above: Performed By: #### C BC, BMP #### [address] Ketones Auto test strip (U) [Mass/Vol]Ordered By: Neptali Esquivel on 09-27-2023 Ketones (U) [Mass/Vol] Negative Negative [facility] Leukocytes [#/volume] correc rosy for nucleated erythrocytes in Blood by Automated counOrdered By: Neptali Esquivel on 09-27-2023 WBC corrected for nucl RBC Auto (Bld) [#/Vol] 6.7 10*3/uL 3.8-11.6 [facility] Leukocytes [#/volume] in Blo od by Automated countOrdered By: Neptali Esquivel on 09-27-2023 WBC (Bld) [#/Vol] 6.7 10*3/uL Normal 3.8-11.6 [facility] Comment on above: Performed By: #### C BC, BMP #### [address] [place] [address] [place] Lymphocytes [#/volume] in Bl ood by Automated countOrdered By: Neptali Esquivel on 09-27-2023 Lymphocytes (Bld) [#/Vol] 1.4 10*3/uL Normal 1.00-4.8 [facility] Comment on above: Performed By: #### C BC, BMP #### [address] Lymphocytes/100 leukocytes i n Blood by Automated countOrdered By: Neptali Esquivel on 09-27-2023 Lymphocytes/100 WBC (Bld) 21.2 % Normal . [facility] Comment on above: Performed By: #### C JOY, BMP #### [address] MCH [Entitic mass] by Automa rosy countOrdered By: Neptali Esquivel on 09-27-2023 MCH (RBC) [Entitic mass] 30.3 pg Normal 24.7-34.3 [facility] Comment on above: Performed By: #### C BC, BMP #### [address] MCHC Auto (RBC) [Mass/Vol]Or dered By: Neptali Esquivel on 09-27-2023 MCHC (RBC) [Mass/Vol] 34.0 g/dL 32.0-35.0 [facility] MCV [Entitic volume] by Auto mated countOrdered By: Neptali Esquivel on 09-27-2023 MCV (RBC) [Entitic vol] 89.1 fL Normal 80-100 [facility] Comment on above: Performed By: #### C BC, BMP #### [address] Monocyte distribution width [Entitic volume] in Blood by AutomatedOrdered By: Neptali Esquivel on 09-27-2023 Monocyte distribution width Auto (Bld) [Entitic vol] 16.50 % 0.00-20.00 [facility] Neutrophils [#/volume] in Bl ood by Automated countOrdered By: Neptali Esquivel on 09-27-2023 Neutrophils (Bld) [#/Vol] 4.9 10*3/uL Normal 1.8-7.7 [facility] Comment on above: Performed By: #### C JOY, BMP #### [facility] [address] Nitrite Test strip Ql (U)Ord ered By: Neptali Esquivel on 09-27-2023 Nitrite Ql (U) Negative Negative [facility] No Panel InformationOrdered By: Neptali Esquivel on 09-27-2023 Estimated GFR (CKD-EPI) > 60.0 mL/Min [facility] Creatinine Clearance (Chem 93.76 [facility] Nucleated erythrocytes [Pres ence] in Blood by Automated countOrdered By: Neptali Esquivel on 09-27-2023 Nucleated RBC Auto Ql (Bld) 0.2 /100{WBC} 0-0.5 [facility] Platelet mean volume [Entiti c volume] in Blood by Automated countOrdered By: Neptali Esquivel on 09-27-2023 Platelet mean volume (Bld) [Entitic vol] 7.5 fL Normal 6.3-10.7 [facility] Comment on above: Performed By: #### C JOY, BMP #### [address] Platelets [#/volume] in Bloo d by Automated countOrdered By: Neptali Esquivel on 09-27-2023 Platelets (Bld) [#/Vol] 375 10*3/uL Normal 150-450 [facility] Comment on above: Performed By: #### C JOY, BMP #### [place] [address] [place] Potassium [Moles/volume] in Serum or PlasmaOrdered By: Neptali Esquivel on 09-27-2023 Potassium [Moles/Vol] 3.6 mmol/L Normal 3.5-5.1 [facility] Comment on above: Performed By: #### C JOY, BMP #### [address] Protein Auto test strip (U) [Mass/Vol]Ordered By: Neptali Esquivel on 09-27-2023 Protein (U) [Mass/Vol] Negative Negative [facility] Serum or plasma anion gap de terminationOrdered By: Neptali Esquivel on 09-27-2023 Anion gap [Moles/Vol] 8.3 mmol/L Normal 6.0-15.0 [facility] Comment on above: Performed By: #### C BC, BMP #### [address] Sodium [Moles/volume] in Ser um or PlasmaOrdered By: Neptali Esquivel on 09-27-2023 Sodium [Moles/Vol] 140 mmol/L Normal 136-145 [facility] Comment on above: Performed By: #### C JOY, BMP #### [address] Specific gravity Auto test s trip (U) [Rel density]Ordered By: Neptali Esquivel on 09-27-2023 Specific gravity (U) [Rel density] 1.007 1.001-1.030 [facility] Urea nitrogen [Mass/volume] in Serum or PlasmaOrdered By: Neptali Esquivel on 09-27-2023 Urea nitrogen [Mass/Vol] 7 mg/dL Normal 7-25 [facility] Comment on above: Performed By: #### C BC, BMP #### [address] Urinalysison 09-27-2023 Appearance (U) Clear Normal Clear [facility] Comment on above: Order Comment: Name Collection Type:: Clean-Voided Midstream Performed By: #### U HCG, UA #### [address] Bilirubin,Urine Negative Normal Negative [facility] Comment on above: Order Comment: Name Collection Type:: Clean-Voided Midstream Performed By: #### U HCG, UA #### [address] Glucose Ql (U) Normal Normal Normal [facility] Comment on above: Order Comment: Name Collection Type:: Clean-Voided Midstream Performed By: #### U HCG, UA #### [address] Ketones Ql (U) Negative Normal Negative [facility] Comment on above: Order Comment: Name Collection Type:: Clean-Voided Midstream Performed By: #### U HCG, UA #### [address] Leukocyte esterase Test strip Ql (U) Negative Normal Negative [facility] Comment on above: Order Comment: Name Collection Type:: Clean-Voided Midstream Performed By: #### U HCG, UA #### [place] [address] [place] Nitrite,Urine Negative Normal Negative [facility] Comment on above: Order Comment: Name Collection Type:: Clean-Voided Midstream Performed By: #### U HCG, UA #### [address] Occult Blood,Urine Negative Normal Negative [facility] Comment on above: Order Comment: Name Collection Type:: Clean-Voided Midstream Performed By: #### U HCG, UA #### [address] Protein,Urine Negative Normal Negative [facility] Comment on above: Order Comment: Name Collection Type:: Clean-Voided Midstream Performed By: #### U HCG, UA #### [place] [address] [place] Specificy Mobile,Urine 1.007 Normal 1.001-1.030 [facility] Comment on above: Order Comment: Name Collection Type:: Clean-Voided Midstream Performed By: #### U HCG, UA #### [place] [address] [place] Urobilinogen,Urine Normal Normal Normal [facility] Comment on above: Order Comment: Name Collection Type:: Clean-Voided Midstream Performed By: #### U HCG, UA #### [place] [id number] [place] Urine clarity by refractomet ry automatedOrdered By: Neptali Esquivel on 09-27-2023 Clarity Refractometry automated (U) Clear Clear [facility] Urine glucose measurement by automated test strip (mass/volume)Ordered By: Neptali Esquivel on 09-27-2023 Glucose Auto test strip (U) [Mass/Vol] Normal mg/dL Normal [facility] Urine hemoglobin detection b y automated test stripOrdered By: Neptali Esquivel on 09-27-2023 Hemoglobin Auto test strip Ql (U) Negative Negative [facility] Urine leukocyte esterase det ection by automated test stripOrdered By: Neptali Esquivel on 09-27-2023 Leukocyte esterase Auto test strip Ql (U) Negative Negative [facility] Urine pH measurement by auto mated test stripOrdered By: Neptali Esquivel on 09-27-2023 pH (U) 7.0 [pH] Normal 5.0-9.0 [facility] Comment on above: Order Comment: Name Collection Type:: Clean-Voided Midstream Performed By: #### U HCG, UA #### [address] Urobilinogen Auto test strip (U) [Mass/Vol]Ordered By: Neptali Esquivel on 09-27-2023 Urobilinogen (U) [Mass/Vol] Normal mg/dL Normal [facility] Consent for Treatmenton 08-28 Consent for Treatment [id number]#1 .00TIFF Normal [facility] Discharge Instructionson Discharge Instructions [id number]# 1.00TIFF Normal [facility] ED Clinical Summaryon 2023 ED Clinical Summary [place] [id number] ED Clinical Summary Person Information Name: ALEJANDRA REAL [place] Age: 27 Years : 1995 Sex: Female Language: Swiss PCP: Krystle Ireland CNP Marital Status: Single Phone: [phone] Visit Id: Visit Reason: Dysuria; Abdominal pain; [...] 16:26:05 ADDRESS: [address] [facility] [id number] PHYS DOC NOTES: MEDICAL INFORMATION: Prescriptions Given: Medications to Continue Taking That Have [facility]anged [id number], [address] [place] [id number], [phone] START: phenazopyridine (Pyridium 200 mg Tab) 1 [...] Follow up: With: Address: When: Krystle Ireland [address] [place] [address], [facility], [address] [place] [address] Business (1) In 3 days 09/29/2023 DIAGNOSIS: 1:Dysuria Normal [facility] ED Note-Physicianon 09-26-19 ED Note-Physician [...] day(s), # 21 tab(s), Refills(s) 0, Pharmacy: [id number], 160, cm, 09/26/23 15:23:00 EDT, Height/Length Dosing, 65, kg, 09/26/23 15:23:00 EDT, Weight Dosing U Beta Hcg Qual UA with Cult Rflx Disposition Plan Patient Discharge Condition Stable Discharge Disposition Home Discharge Prescription List Prescriptions Pyridium 200 mg Tab, 200 mg= 1 tab(s), Oral, TID Follow-up With When Contact Information Krystle Ireland In 3 days 09/29/2023 EDT [address] [facility], [address] [place] [phone] Business (1) Additional Instructions: Patient Education Dysuria Attestation I performed a substantive part of the MDM during the patient?s E/M visit. I personally made or a (more content not included)... Normal [facility] Comment on above: Result Comment: [...] these instructions at home: Medicines ? Take ktvf-kry-dzlfjmn and prescription medicines only as told by [...] provider. Document Revised: 11/24/2020 Document Reviewed: 11/24/2020 [employer] Patient Education ? 2022 [employer] Normal [facility] ED Patient Summaryon 024 ED Patient Summary [place] [id number] Patient Discharge Instructions Person Information Name: ALEJANDRA REAL Age: 27 Years Arrival Date: 09/26/2023 15:06:51 Discharge Diagnosis: 1:Dysuria Primary Care Physician: Krystle Ireland CNP Provider Information Primary Provider: Darren Lomax DO Advanced Light Truck Driver:None The exam and treatment you received in the Emergency Department were for an urgent problem and are not intended as complete care. It is important that you follow up with a doctor, nurse practitioner, or physician?s intellectual property legal assistant for ongoing care. If your symptoms [...] Follow-up Instructions: With: Address: When: Krystle Beka [address] [place] [address], [address] [place], [place] [id number] [employer] ([facility] [facility] In 3 days 09/29/2023 In the event that this physician does not participate in your insurance network, please consult with your insurance company to find a nearby participating provider. Patient Education Materials: Dysuria A MESSAGE TO ALL PATIENTS REGARDING OPIOIDS PRESCRIPTION OPIOIDS: WHAT YOU NEED TO KNOW Prescription opioids can be used to help relieve crgxnxaq-fr-rnhtak pain and are often prescribed following a [...] be struggling with addiction, tell your health home care music therapist and ask for guidance or call [facility] National Helpline at 0-159-180-HELP. v Source: Department of Health and (more content not included)... Normal [facility] SEROLOGYOrdered By: Della Johnston on 09-26-2023 HCG.beta subunit (U) [Moles/Vol] Negative Normal [facility] Man Sero U BetaHcg Qualon 09-26-2023 HCG.beta subunit (U) [Moles/Vol] Negative Normal [facility] Comment on above: Performed By: #### 2 [id number] #### [facility] Laboratory [address] [place] [address] UA with Cult Rflxon 09-26-19 24 Bilirubin Ql (U) Negative Normal Negative [facility] Comment on above: Performed By: #### 4 [id number] ####[facility] [address] [place] [address] Clarity (U) Clear Normal Clear [facility] Comment on above: Performed By: #### 4 [id number] ####[address] [address] Color (U) Colorless Abnormal Yellow [facility] Comment on above: Result Comment: Micr oscopic readings are only performed on those samples that meet specific criteria set forth by [facility] Laboratory. Performed By: #### 4 [id number] ####[address] [address] Glucose Ql (U) Negative Normal Negative [facility] Comment on above: Performed By: #### 4 [id number] ####[address] [address] Hemoglobin Auto test strip (U) [Mass/Vol] Negative Normal Negative [facility] Comment on above: Performed By: #### 4 [id number] ####[address] [address] Ketones Auto test strip Ql (U) Negative Normal Negative [facility] Comment on above: Performed By: #### 4 [id number] ####[address] [address] Leukocyte esterase Auto test strip Ql (U) Negative Normal Negative [facility] Comment on above: Performed By: #### 4 [id number] ####[facility] [address] [place] [address] Nitrite Auto test strip Ql (U) Negative Normal Negative [facility] Comment on above: Performed By: #### 4 [id number] ####[place] [address] [place] [address] pH (U) 7.5 [pH] Invalid Interpretation Code 5.0-9.0 [facility] Comment on above: Performed By: #### 4 [id number] ####[facility] [address] [place] [address] Protein Ql (U) Negative Normal Negative [facility] Comment on above: Performed By: #### 4 [id number] ####[facility] [address] [place] [address] Specific gravity (U) [Rel density] 1.008 Invalid Interpretation Code 1.005-1.030 [facility] Comment on above: Performed By: #### 4 [id number] ####[facility] [address] [place] [address] Urobilinogen (U) [Mass/Vol] Negative Normal Negative [facility] Comment on above: Performed By: #### 4 [id number] ####[address] [address] Type of Urine collection method Clean Catch Normal [facility] Comment on above: Performed By: #### 4 [id number] ####[facility] [address] [place], [place] [id number] URINALYSISOrdered By: SYSTEM SYSTEM on 09-26-2023 Bilirubin Ql (U) Negative Normal Negativemg/ d L [facility] UA Auto SS Clarity (U) Clear (09/26/23 3:25 PM) Normal Clear [facility] UA Auto SS Color (U) Colorless 1 *ABN* (09/26/23 3:25 PM) Invalid Interpretation Code Yellow [facility] UA Auto SS Comment on above: Interpretive Data: M icroscopic readings are only performed on those samples that meet specific criteria set forth by [facility] Laboratory. Glucose Ql (U) Negative [...] Desc Clean Catch (09/26/23 3:25 PM) Normal [facility] UA Auto SS Work Phone: Insurance Correspondenceon 0 09-25-2023 Insurance Correspondence [id number] #1.00TIFF Normal [facility] Consent for Treatmenton 08-27 Consent for Treatment [id number]#1 .00TIFF Normal [facility] Discharge Instructionson Discharge Instructions [id number]# 1.00TIFF Normal [facility] ED Clinical Summaryon 2023 ED Clinical Summary [address] [address] ED Clinical Summary Person Information Name: ALEJANDRA REAL Suzi/[facility] Age: 27 Years : 1995 Sex: Female Language: Swiss PCP: Krystle Ireland CNP Marital Status: Single Phone: [phone] Visit Id: Visit Reason: Dysuria; Abdominal pain; [...] 16:32:50 ADDRESS: [address] [facility] [id number] PHYS DOC NOTES: MEDICAL INFORMATION: Prescriptions Given: New Medications [facility], [address] [place], [place] [id number], [phone] phenazopyridine (Pyridium 100 mg Tab) 1 Tablets By Mouth 3 times a day for 3 Days. Refills: 0. Medications to Continue Taking That Have Changed [facility], [address] [place], [place] [id number], [phone] START: tramadol (traMADOL 50 mg Tab) 1 [...] up: With: Address: When: Fatoumata Gooden [address] [place] [address] [employer] (1) In 3 days 09/27/2023 Comments: Call Dr for diagnosis based follow up With: Address: When: Krystle Ireland [address] [facility], [address] [place] [address] Business (1) In 3 days 09/27/2023 Comments: Call Dr for diagnosis based follow up DIAGNOSIS: Dysuria Normal [facility] ED Patient Education Noteon 09-24-2023 [...] these instructions at home: Medicines ? Take trcd-pzg-scrmsih and prescription medicines only as told by [...] Reviewed: 11/24/2020 Else[employer] Patient Education ? 2022 [employer] Normal [facility] ED Patient Summaryon 024 ED Patient Summary [place] [id number] Patient Discharge Instructions Person Information Name: ALEJANDRA REAL Age: 27 Years Arrival Date: 09/24/2023 15:26:09 Discharge Diagnosis: Dysuria Primary Care Physician: Krystle Ireland CNP Provider Information Primary Provider: Advanced Light Truck Driver:None The exam and treatment you received in the Emergency Department were for an urgent problem and are not intended as complete care. It is important that you follow up with a doctor, nurse practitioner, or physician?s intellectual property legal assistant for ongoing care. If your symptoms [...] Follow-up Instructions: With: Address: When: Fatoumata Gooden [address] [place] [address] [facility] (1) In 3 days 09/27/2023 Comments: Call Dr for diagnosis based follow up With: Address: When: Krystle Ireland [address] [place] [address], [address] [place] [address] [facility] () In 3 days 09/27/2023 Comments: [...] opioids can be used to help relieve kgvgjswa-ua-mvwlgo pain and are often prescribed following a [...] If yo (more content not included)... Normal [facility] UA with Cult Rflxon 09-24-19 24 Bilirubin Ql (U) Negative Normal Negative [facility] Comment on above: Performed By: #### 4 [id number] #### [facility] Laboratory [address] [place] [address] Clarity (U) Clear Normal Clear [facility] Comment on above: Performed By: #### 4 [id number] #### [facility] [address] [place] [address] Color (U) Light-Yellow Normal Yellow [facility] Comment on above: Result Comment: Micr oscopic readings are only performed on those samples that meet specific criteria set forth by [facility] Laboratory. Performed By: #### 4 [id number] #### [facility] [address] [place] [address] Glucose Ql (U) Negative Normal Negative [facility] Comment on above: Performed By: #### 4 [id number] #### [facility] [address] [place] [address] Hemoglobin Auto test strip (U) [Mass/Vol] Trace Abnormal Negative [facility] Comment on above: Performed By: #### 4 [id number] #### [facility] [address] [place] [address] Ketones Auto test strip Ql (U) Negative Normal Negative [facility] Comment on above: Performed By: #### 4 [id number] #### [facility] [address] [place] [address] Leukocyte esterase Auto test strip Ql (U) Negative Normal Negative [facility] Comment on above: Performed By: #### 4 [id number] #### [facility] [address] [place] [address] Nitrite Auto test strip Ql (U) Negative Normal Negative [facility] Comment on above: Performed By: #### 4 [id number] #### [facility] [address] [place] [address] pH (U) 6.0 [pH] Invalid Interpretation Code 5.0-9.0 [facility] Comment on above: Performed By: #### 4 [id number] #### [facility] [address] [place] [address] Protein Ql (U) Negative Normal Negative [facility] Comment on above: Performed By: #### 4 [id number] #### [facility] [address] [place] [address] Specific gravity (U) [Rel density] 1.014 Invalid Interpretation Code 1.005-1.030 [facility] Comment on above: Performed By: #### 4 [id number] #### [facility] [address] [place] [address] Urobilinogen (U) [Mass/Vol] Negative Normal Negative [facility] Comment on above: Performed By: #### 4 [id number] #### [facility] [address] [place] [address] Type of Urine collection method Clean Catch Normal [facility] Comment on above: Performed By: #### 4 [id number] #### [facility] [address] [place] [address] URINALYSISOrdered By: SYSTEM SYSTEM on 09-24-2023 Bilirubin Ql (U) Negative Normal Negativemg/ d L [facility] UA Auto SS Clarity (U) Clear (09/24/23 4:02 PM) Normal Clear [facility] UA Auto SS Color (U) Light-Yellow 1 (09/24/23 4:02 PM) Normal Yellow [facility] UA Auto SS Comment on above: Interpretive Data: M icroscopic readings are only performed on those samples that meet specific criteria set forth by [facility]. Glucose Ql (U) Negative Normal Negativemg/d L [facility] UA Auto SS Hemoglobin Auto test strip [...] PM) Invalid Interpretation Code 5.0 - 9.0 [facility] UA Auto SS Protein Ql (U) Negative Normal Negativemg/d L FT UA Auto SS Specific gravity (U) [Rel density] 1.014 *NA* (09/24/23 4:02 PM) Invalid Interpretation Code 1.005 - 1.030 [facility] UA Auto SS Urobilinogen (U) [Mass/Vol] Negative Normal Negativemg/d L FT UA Auto SS URINALYSISOrdered By: Ulisses hamptonrson on 09-24-2023 UA Spec Desc Clean Catch (09/24/23 4:02 PM) Normal [facility] UA Auto SS Work Phone: B hCG Qualon 09-20-2023 Beta HCG ( test) Ql Negative Normal [facility] Comment on above: Performed By: #### 2 [id number] #### [facility] [address] [place] [address] BMPOrdered By: SYSTEM SYSTEM on 09-20-2023 Anion gap [Moles/Vol] 10 mmol/L Normal 6-16 Rem isol Chem Comment on above: Performed By: #### 2 [id number] #### [facility] [address] [place] [address] Calcium [Mass/Vol] 9.0 mg/dL Normal 8.9-11.1 Remiso l Chem Comment on above: Performed By: #### 2 [id number] #### [facility] [address] [place] [address] Chloride [Moles/Vol] 107 mmol/L Normal 101-111 Donald isha Chem Comment on above: Performed By: #### 2 [id number] #### [facility] [address] [place] [address] CO2 [Moles/Vol] 27 mmol/L Normal 21-31 Remisol C hem Comment on above: Performed By: #### 2 [id number] #### [facility] [address] [place] [address] Creatinine [Mass/Vol] 0.8 mg/dL Normal 0.5-1.3 Rem isol Chem Comment on above: Performed By: #### 2 [id number] #### [facility] [address] [place] [address] Glucose [Mass/Vol] 116 mg/dL Normal 55-199 Remiso l Chem Comment on above: Performed By: #### 2 [id number] #### [facility] [address] [place] [address] Potassium [Moles/Vol] 4.0 mmol/L Normal 3.5-5.3 Rem isol Chem Comment on above: Performed By: #### 2 [id number] #### [facility] [address] [place] [address] Sodium [Moles/Vol] 140 mmol/L Normal 135-145 Remiso l Chem Comment on above: Performed By: #### 2 [id number] #### [facility] [address] [place] [address] Urea nitrogen [Mass/Vol] 10 mg/dL Normal 5-21 Remisol Chem Comment on above: Performed By: #### 2 [id number] #### [facility] [address] [place] [address] BMPon 09-20-2023 Urea nitrogen/Creatinine [Mass ratio] 12 No Units Normal 10-20 [facility] Comment on above: Performed By: #### 2 [id number] #### [facility] [address] [place] [address] CBC w/ Auto DiffOrdered By: SYSTEM SYSTEM on 09-20-2023 Basophils/100 WBC (Bld) 0.2 % Normal 0.0-2.0 R emisol Heme Comment on above: Performed By: #### 2 [id number] #### [facility] [address] [place] [address] Basophils/Leukocytes Auto (Bld) [Pure # fraction] 0.0 E9/L Normal 0.0-0.2 Remisol Heme Comment on above: Performed By: #### 2 [id number] #### [facility] [address] [place] [address] Eosinophils (Bld) [#/Vol] 0.1 E9/L Normal 0.0-0.5 Remisol Heme Comment on above: Performed By: #### 2 [id number] #### [facility] [address] [place] [address] Eosinophils/100 WBC (Bld) 1.6 % Normal 0.0-8.0 Remisol Heme Comment on above: Performed By: #### 2 [id number] #### [facility] [address] [place] [address] Erythrocyte distribution width (RBC) [Ratio] 13.5 % Normal 10.9-14.2 Remisol Heme Comment on above: Performed By: #### 2 [id number] #### [facility] [address] [place] [address] Hematocrit (Bld) [Volume fraction] 37.8 % Normal 34.0-46.0 Remisol Heme Comment on above: Performed By: #### 2 [id number] #### [facility] [address] [place] [address] Hemoglobin (Bld) [Mass/Vol] 13.7 g/dL Normal 12.0-16.0 Remisol Heme Comment on above: Performed By: #### 2 [id number] #### [facility] [address] [place] [address] Lymphocytes (Bld) [#/Vol] 1.8 E9/L Normal 1.0-4.0 Remisol Heme Comment on above: Performed By: #### 2 [id number] #### [facility] [address] [place] [address] Lymphocytes/100 WBC (Bld) 23.9 % Normal 14.0-50.0 Remisol Heme Comment on above: Performed By: #### 2 [id number] #### [facility] [address] [place] [address] MCH (RBC) [Entitic mass] 32.0 pg Normal 27.0-34.0 Remisol Heme Comment on above: Performed By: #### 2 [id number] #### [facility] [address] [place] [address] MCHC (RBC) [Mass/Vol] 36.1 g/dL High 31.4-36.0 Rem isol Heme Comment on above: Performed By: #### 2 [id number] #### [facility] [address] [place] [address] MCV (RBC) [Entitic vol] 88.8 fL Normal 80.0-100.0 R emisol Heme Comment on above: Performed By: #### 2 [id number] #### [facility] [address] [place] [address] Monocytes (Bld) [#/Vol] 0.6 E9/L Normal 0.2-1.0 R emisol Heme Comment on above: Performed By: #### 2 [id number] #### [facility] [address] [place] [address] Neutrophils (Bld) [#/Vol] 5.0 E9/L Normal 2.0-7.5 Remisol Heme Comment on above: Performed By: #### 2 [id number] #### [facility] [address] [place] [address] Neutrophils/100 WBC (Bld) 66.8 % Normal 36.0-75.0 Remisol Heme Comment on above: Performed By: #### 2 [id number] #### [facility] [address] [place] [address] Platelet 409.0 E9/L Normal 150.0-500.0 Remisol Heme Comment on above: Performed By: #### 2 [id number] #### [facility] [address] [place] [address] Platelet mean volume (Bld) [Entitic vol] 7.0 fL Normal 6.4-10.8 Remisol Heme Comment on above: Performed By: #### 2 [id number] #### [facility] [address] [place] [address] RBC (Bld) [#/Vol] 4.3 E12/L Normal 4.3-5.9 Remisol Heme Comment on above: Performed By: #### 2 [id number] #### [facility] [address] [place] [address] WBC corrected for nucl RBC Auto (Bld) [#/Vol] 7.5 E9/L Normal 4.0-11.0 Remisol H jessica Comment on above: Performed By: #### 2 [id number] #### [facility] [address] [place] [address] CHEMISTRYOrdered By: SYSTEM SYSTEM on 09-20-2023 Albumin/Globulin [...] Treatmenton 08-27 Consent for Treatment [id number] .00TIFF Normal [facility] Discharge Instructionson Discharge Instructions [id number] 4050 [id number]# 1.00TIFF Normal [facility] ED Clinical Summaryon 2023 ED Clinical Summary [address] [address] ED Clinical Summary Person Information Name: ALEJANDRA REAL [place] Age: 27 Years : 1995 Sex: Female Language: Swiss PCP: [place] 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 INSTALLER, Krystle L Marital Status: Single Phone: [phone] Visit Id: Visit Reason: Dysuria; Nausea; Abdominal [...] 15:32:50 ADDRESS: [address] [facility] [id number] PHYS DOC NOTES: MEDICAL INFORMATION: Prescriptions Given: Medications to Continue Taking That Have Changed [facility]/pharmacy #[id number], [address] [place], [place] [id number], [phone] START: ondansetron (ondansetron 4 mg Dis Tab) [...] Follow up: With: Address: When: Krystle Ireland [address] [place] [address], [facility], [address] [place] [phone] [employer] (1) In 3 days DIAGNOSIS: Abdominal pain; Nausea Normal [facility] ED Note-Physicianon 09-20-19 ED Note-Physician [...] day(s), # 12 tab(s), Refills(s) 0, [id number], 160, cm, 09/20/23 12:38:00 EDT, Height/Length Dosing, 65.1, kg, 09/20/23 12:38:00 EDT, Weight Dosing Nausea (R11.0: Nausea) Orders: ondansetron, 4 mg = 1 tab(s), Oral, q6hr, X 3 day(s), # 10 tab(s), Refills(s) 0, Pharmacy: [facility] #[id number], 160, cm, 09/20/23 12:38:00 EDT, Height/Length [...] Information Krystle Ireland In 3 days [address] [facility], [address] [place] [address]- Business (1) Additional Instructions: Problem List/Past Medical [...] Alcohol Use, (more content not included)... Normal [facility] Comment on above: Result Comment: Elec tronically Signed By: Justo Arias DO\.br\Date and Time Signed: 09/20/23 15:21 EDT ED Patient Education Noteon 09-20-2023 ED Patient Education Note Normal [facility] ED Patient Summaryon 024 ED Patient Summary [facility] [address] [place], [place] [address] Patient Discharge Instructions Person Information Name: ALEJANDRA REAL Age: 27 Years [facility]: [id number] Arrival Date: 09/20/2023 12:19:55 Discharge Diagnosis: Abdominal pain; Nausea Primary Care Physician: Krystle Ireland CNP Provider Information Primary Provider: Justo Arias DO Advanced Light Truck Driver:None The exam and treatment you received in the Emergency Department were for an urgent problem and are not intended as complete care. It is important that you follow up with a doctor, nurse practitioner, or physician?s intellectual property legal assistant for ongoing care. If your symptoms [...] Follow-up Instructions: With: Address: When: Krystle Ireland [address] [place] [address], [address] [place] [phone] Business (1) In 3 days In the event that this physician does not participate in your insurance network, please consult with your insurance company to find a nearby participating provider. Patient Education Materials: A MESSAGE TO ALL PATIENTS REGARDING OPIOIDS PRESCRIPTION OPIOIDS: WHAT YOU NEED TO KNOW Prescription opioids can be used to help relieve chixplpw-ql-uylgzz pain and are often prescribed following a [...] be struggling with addiction, tell your health home care music therapist and ask for guidance or call [facility] National Helpline at 5-174-742-UCEX. v Source: [place] Department of Health and Human Serv (more content not included)... Normal [facility] HEMATOLOGYOrdered By: SYSTEM SYSTEM on 09-20-2023 Monocytes/100 WBC (Bld) 7.5 % Normal 4.0 - 14.0 % Remisol Heme Hep Func PanelOrdered By: [employer] SYSTEM on 09-20-2023 Albumin [Mass/Vol] 4.4 g/dL Normal 3.3-5.0 Remiso l Chem Comment on above: Performed By: #### 2 [id number] #### [facility] [address] [place] [address] Bilirubin [Mass/Vol] 0.3 mg/dL Normal 0.0-1.1 Donald isha Chem Comment on above: Performed By: #### 2 [id number] #### [facility] [address] [place] [address] Bilirubin.direct [Mass/Vol] 0.1 mg/dL Normal 0.0-0.4 Remisol Chem Comment on above: Performed By: #### 2 [id number] #### [facility] [address] [place] [address] Bilirubin.indirect [Mass or moles/Vol] 0.2 mg/dL Normal 0.1-0.9 Remisol Chem Comment on above: Performed By: #### 2 [id number] #### [facility] [address] [place] [address] Globulin (S) [Mass/Vol] 2.8 g/dL Normal 1.4-4.0 R emisol Chem Comment on above: Performed By: #### 2 [id number] #### [facility] [address] [place] [address] Protein [Mass/Vol] 7.2 g/dL Normal 6.0-7.8 Remiso l Chem Comment on above: Performed By: #### 2 [id number] #### [facility] [address] [place] [address] Hep Func Panelon 09-20-2023 Albumin/Globulin (S) [Mass conc ratio] 1.6 Normal 1.1-2.2 [facility] Comment on above: Performed By: #### 2 [id number] #### [facility] [address] [place] [address] ALP [Catalytic activity/Vol] 130 Int._Unit/L High 21-98 [facility] Comment on above: Performed By: #### 2 [id number] #### [facility] [address] [place] [address] ALT No additional P-5'-P [Catalytic activity/Vol] 12 Int._Unit/L Normal 6-46 [facility] Comment on above: Performed By: #### 2 [id number] #### [facility] [address] [place] [address] AST [Catalytic activity/Vol] 14 Int._Unit/L Normal 5-43 [facility] Comment on above: Performed By: #### 2 [id number] #### [facility] [address] [place] [address] Lipase LevelOrdered By: [employer] SYSTEM on 09-20-2023 Lipase [Catalytic activity/Vol] 47 U/L Normal 13-58 Remisol Chem Comment on above: Performed By: #### 2 [id number] #### [facility] [address] [place] [address] SEROLOGYOrdered By: Brii Walters on 09-20-2023 HCG.beta subunit (U) [Moles/Vol] Negative Normal [facility] Man Sero Beta HCG ( test) Ql Negative (09/20/23 1:00 PM) Normal [facility] Man Sero U BetaHcg Qualon 09-20-2023 HCG.beta subunit (U) [Moles/Vol] Negative Normal [facility] Comment on above: Performed By: #### 2 [id number] #### [facility] [address] [place] [address] UA with Cult Rflxon 09-20-19 Bilirubin Ql (U) Negative Normal Negative [facility] Comment on above: Performed By: #### 4 [id number] #### [facility] [address] [place] [address] Clarity (U) Turbid Abnormal Clear [facility] Comment on above: Performed By: #### 4 [id number] #### [facility] [address] [place] [address] Color (U) Light-Yellow Normal Yellow [facility] Comment on above: Result Comment: Micr oscopic readings are only performed on those samples that meet specific criteria set forth by [facility]. Performed By: #### 4 [id number] #### [facility] [address] [place] [address] Epithelial cells.squamous Auto (Urine sed) [#/Area] 0-2 Normal 0-2 [facility] Comment on above: Performed By: #### 4 [id number] #### [facility] [address] [place] [address] Glucose Ql (U) Negative Normal Negative [facility] Comment on above: Performed By: #### 4 [id number] #### [facility] [address] [place] [address] Hemoglobin Auto test strip (U) [Mass/Vol] Negative Normal Negative [facility] Comment on above: Performed By: #### 4 [id number] #### [facility] [address] [place] [address] Ketones Auto test strip Ql (U) Negative Normal Negative [facility] Comment on above: Performed By: #### 4 [id number] #### [facility] [address] [place] [address] Leukocyte esterase Auto test strip Ql (U) Negative Normal Negative [facility] Comment on above: Performed By: #### 4 [id number] #### [facility] [address] [place] [address] Mucus Auto Ql (U) Trace Normal Negative [facility] Comment on above: Performed By: #### 4 [id number] #### [facility] [address] [place] [address] Nitrite Auto test strip Ql (U) Negative Normal Negative [facility] Comment on above: Performed By: #### 4 [id number] #### [facility] [address] [place] [address] pH (U) 7.0 [pH] Invalid Interpretation Code 5.0-9.0 [facility] Comment on above: Performed By: #### 4 [id number] #### [facility] [address] [place] [address] Protein Ql (U) Negative Normal Negative [facility] Comment on above: Performed By: #### 4 [id number] #### [facility] [address] [place] [address] RBC Ql (U) 0-3 Normal 0-3 [facility] Comment on above: Performed By: #### 4 [id number] #### [facility] [address] [place] [address] Specific gravity (U) [Rel density] 1.023 Invalid Interpretation Code 1.005-1.030 [facility] Comment on above: Performed By: #### 4 [id number] #### [facility] [address] [place] [address] Urobilinogen (U) [Mass/Vol] Negative Normal Negative [facility] Comment on above: Performed By: #### 4 [id number] #### [facility] [address] [place] [address] WBC Auto (Urine sed) [#/Area] 0-5 Normal 0-5 [facility] Comment on above: Performed By: #### 4 [id number] #### [facility] [address] [place] [address] Type of Urine collection method Clean Catch Normal [facility] Comment on above: Performed By: #### 4 [id number] #### [facility] [address] [place] [address] URINALYSISOrdered By: SYSTEM SYSTEM on 09-20-2023 Bilirubin [...] that meet specific criteria set forth by [facility]. Epithelial cells.squamous Auto (Urine [...] Desc Clean Catch (09/20/23 1:15 PM) Normal [facility] UA Auto SS Work Phone: eGFROrdered By: SYSTEM [employer] on 09-20-2023 eGFR 102 mL/min/1.73 m2 Normal >=59 Remiso l Chem Comment on above: Order Comment: Order added by Discern Expert. Performed By: #### 1 [id number] #### [facility] [address] [place] [address] C Urineon 09-19-2023 Bacteria identified Cx Nom (U) Microbiology PROCEDURE: Urine Culture [R1] SOURCE: U CleanCatch BODY SITE: COLLECTED DATE/TIME: 09/17/2023 04:34 EDT RECEIVED DATE/TIME: 09/17/2023 05:18 EDT START DATE/TIME: 09/17/2023 05:18 EDT FREE TEXT SOURCE: Vivian houstno DO Don MARIAVivian FINAL REPORTS Final Report [] Verified Date/Time: 09/19/2023 07:11 EDT 5,000 cfu/ml Mixed skin contaminants Performing Locations R1: This test was performed at: [facility], [address] [place] [address], [address] , , [facility] Comment on above: Performed By: #### 2 [id number] #### [facility] [address] [place] [address] Consent for Treatmenton 08-27 Consent for Treatment [id number]#1 .00TIFF [facility] Discharge Instructionson Discharge Instructions [id number]#1 .00TIFF Normal [facility] ED Clinical Summaryon 2023 ED Clinical Summary [address] [address] ED Clinical Summary Person Information Name: ALEJANDRA REAL Suzi/[facility] Age: 27 Years : 1995 Sex: Female Language: Swiss PCP: Krystle Ireland CNP Marital Status: Single Phone: [phone] Visit Id: Visit Reason: Abdominal pain; Hematuria; [...] 05:11:08 ADDRESS: [address] [facility] [id number] PHYS DOC NOTES: MEDICAL INFORMATION: Prescriptions Given: New Medications [facility]/pharmacy #[id number], [address] [place], [place] [id number], [phone] nitrofurantoin (Macrobid 100 mg Cap) 1 Capsules By Mouth every 12 hours for 5 Days. Refills: 0. phenazopyridine (Pyridium 200 mg Tab) 1 Tablets By Mouth 3 times a day for 3 Days. Refills: 0. Medications to Continue Taking That Have Changed [facility]/pharmacy #[id number], [address] [place], [place] [id number], [phone] START: dicyclomine (Bentyl 10 mg Cap) 1 [...] EDUCATION INFORMATION: Instructions: Urinary Tract Infection, Adult, Godh-lx-Qpht Follow up: With: Address: When: Krystle Ireland [address] [place] [address], [facility], [address] [place] [phone] Business (1) In 3 days 09/20/2023 Comments: [...] or worsening symptoms. DIAGNOSIS: Acute UTI Normal [facility] ED Note-Physicianon 09-17-19 24 ED [...] and Complexity of Problems Differential Diagnosis: [] [facility] Data External documents reviewed: [] My [...] day(s), # 21 cap(s), Refills(s) 0, Pharmacy: [facility]/pharmacy #[id number], 160, cm, 09/17/23 4:33:00 EDT, Height/Length Dosing, 65.4, kg, 09/17/23 4:33:00 EDT, Weight Dosing nitrofurantoin, 100 mg = 1 cap(s), Oral, q12hr, X 5 day(s), # 10 cap(s), Refills(s) 0, Pharmacy: [facility]/pharmacy #[id number], 160, cm, 09/17/23 4:33:00 EDT, [...] day(s), # 9 tab(s), Refills(s) 0, Pharmacy: [facility]/pharmacy #[id number], 160, cm, 09/17/23 4:33:00 EDT, Height/Length Dosing, 65.4, kg, 09/17/23 4:33:00 EDT, Weight Dosing tramadol, 100 mg = 2 tab(s), Tab, Oral, Once, Stop date 09/17/23 4:52:00 EDT, STAT, Start date 09/17/23 4:52:00 EDT, 09/17/23 4:52:00 EDT tramadol, 50 mg = 1 tab(s), Oral, q6hr, PRN for pain, X 2 day(s), # 7 tab(s), Refills(s) 0, Pharmacy: [facility]/pharmacy #[id number], 160, cm, 09/17/23 4:33:00 EDT, [...] PRN Follo (more content not included)... Normal [facility] Comment on above: Result Comment: [...] these instructions at home: Medicines ? Take qsfz-kbr-fetdbeg and prescription medicines only as told by [...] Reviewed: 11/24/2020 Elsevier Patient Education ? 2022 [employer] Normal [facility] ED Patient Summaryon 024 ED Patient Summary [address] [address] Patient Discharge Instructions Person Information Name: ALEJANDRA REAL Age: 27 Years Arrival Date: 09/17/2023 04:24:35 Discharge Diagnosis: Acute UTI Primary Care Physician: Krystle Ireland CNP Provider Information Primary Provider: Vivian Ochoa DO Advanced Light Truck Driver:None The exam and treatment you received in the Emergency Department were for an urgent problem and are not intended as complete care. It is important that you follow up with a doctor, nurse practitioner, or physician?s intellectual property legal assistant for ongoing care. If your symptoms [...] Follow-up Instructions: With: Address: When: Krystle Ireland [address] [place] [address], [facility], [address] [place] [address] Business (1) In 3 days [...] Patient Education Materials: Urinary Tract Infection, Adult, Hgur-bv-Satt A MESSAGE TO ALL PATIENTS REGARDING OPIOIDS PRESCRIPTION OPIOIDS: WHAT YOU NEED TO KNOW Prescription opioids can be used to help relieve idaxvqle-kn-ruhkyo pain and are often prescribed following a [...] toilet, f (more content not included)... Normal [facility] SEROLOGYOrdered By: Veena Keenan on 09-17-2023 HCG.beta subunit (U) [Moles/Vol] Negative Normal [facility] Man Sero U BetaHcg Qualon 09-17-2023 HCG.beta subunit (U) [Moles/Vol] Negative Normal [facility] Comment on above: Performed By: #### 2 [id number] #### [facility] [address] [place] [address] UA with Cult Rflxon 09-17-19 24 Bilirubin Ql (U) Negative Normal Negative [facility] Comment on above: Performed By: #### 4 [id number] #### [facility] [address] [place] [address] Clarity (U) Clear Normal Clear [facility] Comment on above: Performed By: #### 4 [id number] #### [facility] [address] [place] [address] Color (U) Yellow Normal Yellow [facility] Comment on above: Result Comment: Micr oscopic readings are only performed on those samples that meet specific criteria set forth by [facility]. Performed By: #### 4 [id number] #### [facility] [address] [place] [address] Epithelial cells.squamous Auto (Urine sed) [#/Area] 3-4 Abnormal 0-2 [facility] Comment on above: Performed By: #### 4 [id number] #### [facility] [address] [place] [address] Glucose Ql (U) Negative Normal Negative [facility] Comment on above: Performed By: #### 4 [id number] #### [facility] [address] [place] [address] Hemoglobin Auto test strip (U) [Mass/Vol] Trace Abnormal Negative [facility] Comment on above: Performed By: #### 4 [id number] #### [facility] [address] [place] [address] Ketones Auto test strip Ql (U) Trace Abnormal Negative [facility] Comment on above: Performed By: #### 4 [id number] #### [facility] [address] [place] [address] Leukocyte esterase Auto test strip Ql (U) 25 Obie/uL Normal Negative [facility] Comment on above: Performed By: #### 4 [id number] #### [facility] [address] [place] [address] Mucus Auto Ql (U) Trace Normal Negative [facility] Comment on above: Performed By: #### 4 [id number] #### [facility] [address] [place] [address] Nitrite Auto test strip Ql (U) Negative Normal Negative [facility] Comment on above: Performed By: #### 4 [id number] #### [facility] [address] [place] [address] pH (U) 6.0 [pH] Normal 5.0-9.0 [facility] Comment on above: Performed By: #### 4 [id number] #### [facility] [address] [place] [address] Protein Ql (U) Trace Abnormal Negative [facility] Comment on above: Performed By: #### 4 [id number] #### [facility] [address] [place] [address] RBC Ql (U) 4-20 Abnormal 0-3 [facility] Comment on above: Performed By: #### 4 [id number] #### [facility] [address] [place] [address] Specific gravity (U) [Rel density] 1.035 Normal 1.005-1.030 [facility] Comment on above: Performed By: #### 4 [id number] #### [facility] [address] [place] [address] Urobilinogen (U) [Mass/Vol] 3 mg/dL Abnormal Negative [facility] Comment on above: Performed By: #### 4 [id number] #### [facility] [address] [place] [address] WBC Auto (Urine sed) [#/Area] 6-15 Abnormal 0-5 [facility] Comment on above: Performed By: #### 4 [id number] #### [facility] [address] [place] [address] Type of Urine collection method Clean Catch Normal [facility] Comment on above: Performed By: #### 4 [id number] #### [facility] [address] [place] [address] URINALYSISOrdered By: Tri Keenan on 09-17-2023 Bilirubin [...] that meet specific criteria set forth by [facility]. Epithelial cells.squamous Auto (Urine [...] Desc Clean Catch (09/17/23 4:34 AM) Normal [facility] UA Auto SS Work Phone: Consent for Treatmenton 08-27 Consent for Treatment [id number]#1 .00TIFF Normal [facility] Heart and Vascular Office/Cl inic Noteon 09-15-2023 Heart and Vascular Office/Clinic Note Normal [facility] Comment on above: Result Comment: Elec tronically Signed By: Bon DC, Fatoumata Kelsey\.br\Date and Time Signed: 09/15/23 09:38 EDT Clipboard Summaryon 09-14-19 Clipboard Summary {[id number]-yn-i1-f4-ba-b8-4 a -[id number]-[id number]-[id number] -26-0d}XML Normal [facility] Consent for Treatmenton 08-26 Consent for Treatment [id number]#1 .00TIFF Normal [facility] Discharge Instructionson Discharge Instructions [id number]# 1.00TIFF Normal [facility] ED Clinical Summaryon 2023 ED Clinical Summary Normal [facility] ED Note-Physicianon 09-14-19 ED Note-Physician Normal [facility] Comment on above: Result Comment: Elec tronically Signed By: Sy Pickard PA-C\.br\Date and Time Signed: 09/14/23 12:52 EDT\.br\Electronically Co-Signed By: Darren Lomax DO\.br\Date and Time Co-Signed: 09/14/23 13:34 EDT ED Patient Education Noteon 09-14-2023 ED Patient Education Note Normal [facility] ED Patient Summaryon 024 ED Patient Summary Normal [facility] Automated urine color determ inationOrdered By: PROVIDER TEMP on 09-04-2023 Color (U) Yellow Normal Yellow [facility] Comment on above: Order Comment: Name Collection Type:: Clean-Voided Midstream Performed By: #### U A #### [facility] [address] [place] [address] Bilirubin Test strip Ql (U)O rdered By: PROVIDER TEMP on 09-04-2023 Bilirubin Ql (U) Negative Negative [facility] HCG ( test) IA.rapi d Ql (U)Ordered By: PROVIDER TEMP on 09-04-2023 HCG ( test) Ql (U) Negative [facility] HCG,Urineon 09-04-2023 Beta HCG ( test) Ql (U) Negative Normal [facility] Comment on above: Result Comment: PERF ORMED BY: [address] [place] [address] PATHOLOGIST VETERINARY SURGERY TECHNICIAN ALEXANDER SANDERS M.D. Performed By: #### U HCG #### [facility] [address] [place] [address] [place] Ketones Auto test strip (U) [Mass/Vol]Ordered By: PROVIDER TEMP on 09-04-2023 Ketones (U) [Mass/Vol] Negative Negative [facility] Nitrite Test strip Ql (U)Ord ered By: PROVIDER TEMP on 09-04-2023 Nitrite Ql (U) Negative Negative [facility] Protein Auto test strip (U) [Mass/Vol]Ordered By: PROVIDER TEMP on 09-04-2023 Protein (U) [Mass/Vol] Negative Negative [facility] [place] Specific gravity Auto test s trip (U) [Rel density]Ordered By: PROVIDER TEMP on 09-04-2023 Specific gravity (U) [Rel density] 1.007 1.001-1.030 [facility] Urinalysison 09-04-2023 Appearance (U) Clear Normal Clear [facility] Comment on above: Order Comment: Name Collection Type:: Clean-Voided Midstream Performed By: #### U A #### [place] [address] [place] Bilirubin,Urine Negative Normal Negative [facility] Comment on above: Order Comment: Name Collection Type:: Clean-Voided Midstream Performed By: #### U A #### [address] Glucose Ql (U) Normal Normal Normal [facility] Comment on above: Order Comment: Name Collection Type:: Clean-Voided Midstream Performed By: #### U A #### [place] [address] [place] Ketones Ql (U) Negative Normal Negative [facility] Comment on above: Order Comment: Name Collection Type:: Clean-Voided Midstream Performed By: #### U A #### [address] Leukocyte esterase Test strip Ql (U) Negative Normal Negative [facility] Comment on above: Order Comment: Name Collection Type:: Clean-Voided Midstream Performed By: #### U A #### [place] [address] [place] Nitrite,Urine Negative Normal Negative [facility] Comment on above: Order Comment: Name Collection Type:: Clean-Voided Midstream Performed By: #### U A #### [place] [address] [place] Occult Blood,Urine Negative Normal Negative [facility] Comment on above: Order Comment: Name Collection Type:: Clean-Voided Midstream Result Comment: PERF ORMED BY: [place] [address] PATHOLOGIST VETERINARY SURGERY TECHNICIAN ALEXANDER SANDERS M.D. Performed By: #### U A #### [facility] [address] Protein,Urine Negative Normal Negative [facility] Comment on above: Order Comment: Name Collection Type:: Clean-Voided Midstream Performed By: #### U A #### [facility] [address] Specificy [place],Urine 1.007 Normal 1.001-1.030 [facility] Comment on above: Order Comment: Name Collection Type:: Clean-Voided Midstream Performed By: #### U A #### [facility] [address] Urobilinogen,Urine Normal Normal Normal [facility] Comment on above: Order Comment: Name Collection Type:: Clean-Voided Midstream Performed By: #### U A #### [address] Urine clarity by refractomet ry automatedOrdered By: PROVIDER TEMP on 09-04-2023 Clarity Refractometry automated (U) Clear Clear [facility] Urine glucose measurement by automated test strip (mass/volume)Ordered By: PROVIDER TEMP on 09-04-2023 Glucose Auto test strip (U) [Mass/Vol] Normal mg/dL Normal [facility] Urine hemoglobin detection b y automated test stripOrdered By: PROVIDER TEMP on 09-04-2023 Hemoglobin Auto test strip Ql (U) Negative Negative [facility] Urine leukocyte esterase det ection by automated test stripOrdered By: PROVIDER TEMP on 09-04-2023 Leukocyte esterase Auto test strip Ql (U) Negative Negative [facility] Urine pH measurement by auto mated test stripOrdered By: PROVIDER TEMP on 09-04-2023 pH (U) 7.5 [pH] Normal 5.0-9.0 [facility] Comment on above: Order Comment: Name Collection Type:: Clean-Voided Midstream Performed By: #### U A #### [facility] [address] Urobilinogen Auto test strip (U) [Mass/Vol]Ordered By: PROVIDER TEMP on 09-04-2023 Urobilinogen (U) [Mass/Vol] Normal mg/dL Normal [facility] Urinalysis, Routineon 2023 Bilirubin, SemiQt,Ur Negative Normal NEG [facility] Comment on above: Performed By: #### U A #### [facility] [address] [place], [place] [id number] Driver Starting Gate: Khanh Beaulieu MD Blood, Urine Negative Normal NEG [facility] Comment on above: Performed By: #### U A #### [facility] [address] [place] [address] Driver Starting Gate: Khanh Beaulieu MD Clarity (U) Clear Normal CLEAR [facility] Comment on above: Performed By: #### U A #### [facility] [address] [place] [address] Driver Starting Gate: Khanh Beaulieu MD Color (U) Yellow Normal YEL [facility] Comment on above: Performed By: #### U A #### [facility] [address] [place] [address] Driver Starting Gate: Khanh Beaulieu MD Comment Normal [facility] Comment on above: Performed By: #### U A #### [facility] [address] [place] [address] Driver Starting Gate: Khanh Beaulieu MD Glucose Ql (U) Negative Normal NEG [facility] Comment on above: Performed By: #### U A #### [facility] [address] [place] [address] Driver Starting Gate: Khanh Beaulieu MD Ketones Ql (U) Negative Normal NEG [facility] Comment on above: Performed By: #### U A #### [facility] [address] [place] [address] Driver Starting Gate: Khanh Beaulieu MD Leukocyte esterase Test strip Ql (U) Negative Normal NEG [facility] Comment on above: Performed By: #### U A #### [facility] [address] [place] [address] Driver Starting Gate: Khanh Beaulieu MD Nitrite,Ur Negative Normal NEG [facility] Comment on above: Performed By: #### U A #### [facility] [address] [place] [address] Driver Starting Gate: Khanh Beaulieu MD PH,Ur 7.0 Normal 5.0-8.0 [facility] Comment on above: Performed By: #### U A #### [facility] [address] [place] [address] Driver Starting Gate: Khanh Beaulieu MD Protein Ql (U) Negative Normal NEG [facility] Comment on above: Performed By: #### U A #### [facility] [address] [place] [address] Driver Starting Gate: Khanh Beaulieu MD Spec. Mobile,Ur 1.010 Normal 1.005-1.030 [facility] Comment on above: Performed By: #### U A #### [facility] [address] [place] [address] Driver Starting Gate: Khanh Beaulieu MD Urobilinogen,Ur Normal Normal 0.0-1.0 [facility] Comment on above: Performed By: #### U A #### [facility] [address] [place] [address] Driver Starting Gate: Khanh Beaulieu MD Referrals Officeon 4 Referrals Office [id number]# 1.00TIFF Normal [facility] Consent for Treatmenton 07-28 Consent for Treatment [id number]#1 .00TIFF Normal [facility] Discharge Instructionson Discharge Instructions [id number]# 1.00TIFF Normal [facility] ED Clinical Summaryon 2023 ED Clinical Summary Normal [facility] ED Note-Physicianon 08-23-19 ED Note-Physician Normal [facility] Comment on above: Result Comment: Elec tronically Signed By: Savanna Rivero PA-C\.br\Date and Time Signed: 08/23/23 13:04 EDT\.br\Electronically Co-Signed By: Savanna Rivero PA-C\.br\Date and Time Co-Signed: 08/23/23 13:24 EDT\.br\Electronically Co-Signed By: Darren Lomax DO\.br\Date and Time Co-Signed: 08/23/23 14:48 EDT ED Patient Education Noteon 08-23-2023 ED Patient Education Note Normal [facility] ED Patient Summaryon 024 ED Patient Summary Normal [facility] U BetaHcg Qualon 08-23-2023 HCG.beta subunit (U) [Moles/Vol] Negative Normal [facility] Comment on above: Performed By: #### 2 [id number], [id number] ####[facility] [address] [place] [address] UA with Cult Rflxon 08-23-19 Bilirubin Ql (U) Negative Normal Negative [facility] Comment on above: Performed By: #### 2 [id number], [id number] ####[facility] [address] [place] [address] Clarity (U) Clear Normal Clear [facility] Comment on above: Performed By: #### 2 [id number], [id number] ####[facility] [address] [place] [address] Color (U) Light-Yellow Normal Yellow [facility] Comment on above: Result Comment: Micr oscopic readings are only performed on those samples that meet specific criteria set forth by [facility] Laboratory. Performed By: #### 2 [id number], [id number] ####[facility] [address] [place] [address] Glucose Ql (U) Negative Normal Negative [facility] Comment on above: Performed By: #### 2 [id number], [id number] ####[facility] [address] [place] [address] Hemoglobin Auto test strip (U) [Mass/Vol] Negative Normal Negative [facility] Comment on above: Performed By: #### 2 [id number], [id number] ####[facility] [address] [place] [address] Ketones Auto test strip Ql (U) Negative Normal Negative [facility] Comment on above: Performed By: #### 2 [id number], [id number] ####[facility] [address] [place] [address] Leukocyte esterase Auto test strip Ql (U) Negative Normal Negative [facility] Comment on above: Performed By: #### 2 [id number], [id number] ####[facility] [address] [place] [address] Nitrite Auto test strip Ql (U) Negative Normal Negative [facility] Comment on above: Performed By: #### 2 [id number], [id number] ####[facility] [address] [place] [address] pH (U) 7.0 [pH] Invalid Interpretation Code 5.0-9.0 [facility] Comment on above: Performed By: #### 2 [id number], [id number] ####[facility] [address] [place] [address] Protein Ql (U) Negative Normal Negative [facility] Comment on above: Performed By: #### 2 [id number], [id number] ####[facility] [address] [address] Specific gravity (U) [Rel density] 1.017 Invalid Interpretation Code 1.005-1.030 [facility] Comment on above: Performed By: #### 2 [id number], [id number] ####[facility] [address] [place] [address] Urobilinogen (U) [Mass/Vol] Negative Normal Negative [facility] Comment on above: Performed By: #### 2 [id number], [id number] ####[facility] [address] [place] [address] Type of Urine collection method Clean Catch Normal [facility] Comment on above: Performed By: #### 2 [id number], [id number] ####[facility] [address] [place] [address] XR Abdomen 1 Viewon 08-23-19 24 XR Abdomen 1 View Normal [facility] Alanine aminotransferase [En zymatic activity/volume] in Serum or PlasmaOrdered By: Janeth Johnson on 08-20-2023 ALT [Catalytic activity/Vol] 14 U/L Normal 7-52 [facility] Comment on above: Performed By: #### C MP, LIPASE, CBC #### [facility] [address] [place] [address] [place] Albumin [Mass/volume] in Ser um or Plasma by Bromocresol green (BCG) dye binding methoOrdered By: Janeth Johnson on 08-20-2023 Albumin BCG dye [Mass/Vol] 4.8 g/dL 3.5-5.7 [facility] Alkaline phosphatase [Enzyma tic activity/volume] in Serum or PlasmaOrdered By: Janeth Johnson on 08-20-2023 ALP [Catalytic activity/Vol] 136 U/L High 34-104 [facility] Comment on above: Performed By: #### C MP, LIPASE, CBC #### [facility] [address] [place] [id number] [place] Aspartate aminotransferase [ Enzymatic activity/volume] in Serum or PlasmaOrdered By: Janeth Johnson on 08-20-2023 AST [Catalytic activity/Vol] 20 U/L Normal 13-39 [facility] Comment on above: Performed By: #### C MP, LIPASE, CBC #### [facility] [address] [place] [address] Automated basophil %Ordered By: Janeth Johnson on 08-20-2023 Basophils/100 WBC (Bld) 0.8 % Normal . F [facility] Comment on above: Performed By: #### C MP, LIPASE, CBC #### [address] Automated basophil countOrde red By: Janeth Bettyhanna on 08-20-2023 Basophils (Bld) [#/Vol] 0.1 10*3/uL Normal 0.0-0.2 [facility] Comment on above: Result Comment: PERF ORMED BY: [place] [address] PATHOLOGIST VETERINARY SURGERY TECHNICIAN ALEXANDER SANDERS M.D. Performed By: #### C MP, LIPASE, CBC #### [address] Automated blood monocyte cou ntOrdered By: Janeth Alatorree on 08-20-2023 Monocytes (Bld) [#/Vol] 0.4 10*3/uL Normal 0.0-0.8 [facility] Comment on above: Performed By: #### C MP, LIPASE, CBC #### [address] Automated eosinophil %Ordere d By: Janeth Alatorree on 08-20-2023 Eosinophils/100 WBC (Bld) 1.1 % Normal . [facility] Comment on above: Performed By: #### C MP, LIPASE, CBC #### [address] Automated eosinophil countOr dered By: Janeth Bettyfllucy on 08-20-2023 Eosinophils (Bld) [#/Vol] 0.1 10*3/uL Normal 0.0-0.45 [facility] Comment on above: Performed By: #### C MP, LIPASE, CBC #### [address] Automated monocyte %Ordered By: Janeth Saffle on 08-20-2023 Monocytes/100 WBC (Bld) 5.2 % Normal . F [facility] Comment on above: Performed By: #### C MP, LIPASE, CBC #### [address] Automated neutrophil %Ordere d By: Janeth Johnson on 08-20-2023 Neutrophils/100 WBC (Bld) 66.2 % Normal . [facility] Comment on above: Performed By: #### C MP, LIPASE, CBC #### [address] Automated urine color determ inationOrdered By: Janeth Johnson on 08-20-2023 Color (U) Yellow Normal Yellow [facility] Comment on above: Order Comment: Name Collection Type:: Clean-Voided Midstream Performed By: #### C MP, LIPASE, CBC #### [address] Bilirubin Test strip Ql (U)O rdered By: Janeth Johnson on 08-20-2023 Bilirubin Ql (U) Negative Negative [facility] Bilirubin.total [Mass/volume ] in Serum or PlasmaOrdered By: Janeth Johnson on 08-20-2023 Bilirubin [Mass/Vol] 0.4 mg/dL Normal 0.3-1.0 [facility] Comment on above: Performed By: #### C MP, LIPASE, CBC #### [address] abdomen pelvis w conon CT abdomen pelvis w con [facility] [place] [address] CT Scan Report Signed Patient: Alejandra Real MR#: [id number] 20 : 1995 Acct:[id number] Age/Sex: 27 / F ADM Date: 08/20/23 Loc: ER Room: Type: [facility] ER Attending Dr: Copies to: Janeth Johnson [...] Yayo Pablo M.D.08/20/2023 2:46 PM Dictation Location: [place] [address] Transcribed By: [facility] 08/20/23 1446 Dictated By: Yayo aPblo II, MD 08/20/23 1440 Signed By: 08/20/23 144 Normal [facility] Calcium [Mass/volume] in Ser um or PlasmaOrdered By: Janeth Johnson on 08-20-2023 Calcium [Mass/Vol] 9.7 mg/dL Normal 8.6-10.3 [facility] Comment on above: Performed By: #### C MP, LIPASE, CBC #### [address] Carbon dioxide, total [Moles /volume] in Serum or PlasmaOrdered By: Janeth Johnson on 08-20-2023 CO2 [Moles/Vol] 30.4 mmol/L Normal 21.0-31.0 [facility] Comment on above: Performed By: #### C MP, LIPASE, CBC #### [address] Chloride [Moles/volume] in S gabbie or PlasmaOrdered By: Janeth Johnson on 08-20-2023 Chloride [Moles/Vol] 104 mmol/L Normal 98-107 [facility] Comment on above: Performed By: #### C MP, LIPASE, CBC #### [address] Complete Blood Count Auto Di ffon 08-20-2023 Mean Corpuscular HGB Conc 34.0 g/dL Normal 32.0-35.0 [facility] Comment on above: Performed By: #### C MP, LIPASE, CBC #### [address] Monocytes/100 WBC (Bld) 15.39 % Normal 0.00-20.00 [facility] Comment on above: Performed By: #### C MP, LIPASE, CBC #### [address] NRBC% 0.2 /100{WBC} Normal 0-0.5 [facility] Comment on above: Performed By: #### C MP, LIPASE, CBC #### [address] Comprehensive Metabolic Pane chata 08-20-2023 Albumin [Mass/Vol] 4.8 g/dL Normal 3.5-5.7 [facility] Comment on above: Performed By: #### C MP, LIPASE, CBC #### [address] Creatinine Clr Calc Pharmacy 100.77 Normal [facility] Comment on above: Performed By: #### C MP, LIPASE, CBC #### [address] GFR/1.73 sq M.predicted MDRD (S/P/Bld) [Vol rate/Area] mL/min/{1.73_m2} Normal [facility] Comment on above: Performed By: #### C MP, LIPASE, CBC #### [address] Creatinine [Mass/volume] in Serum or PlasmaOrdered By: Janeth Johnson on 08-20-2023 Creatinine [Mass/Vol] 0.75 mg/dL Normal 0.60-1.20 [facility] Comment on above: Performed By: #### C MP, LIPASE, CBC #### [address] Erythrocyte distribution wid th [Ratio] by Automated countOrdered By: Janeth Johnson on 08-20-2023 Erythrocyte distribution width (RBC) [Ratio] 13.1 % Normal 11.9-15.3 [facility] Comment on above: Performed By: #### C MP, LIPASE, CBC #### [address] Erythrocytes [#/volume] in B lood by Automated countOrdered By: Janeth Johnson on 08-20-2023 RBC (Bld) [#/Vol] 4.81 10*6/uL Normal 3.60-5.00 [facility] Comment on above: Performed By: #### C MP, LIPASE, CBC #### [address] Glucose [Mass/volume] in Ser um or PlasmaOrdered By: Janeth Johnson on 08-20-2023 Glucose [Mass/Vol] 104 mg/dL High 70-100 [facility] Comment on above: ADA recommended refe rence rangeRandom Glucose Reference Range is dependent on time and content of last meal. Glucose of more than 200 mg/dL in a nonstressed, ambulatory subject supports the diagnosis of Diabetes Mellitus. Result Comment: [facility] Glucose Reference Range is dependent on time and content of last meal. Glucose of more than 200 mg/dL in a nonstressed, ambulatory subject supports the diagnosis of Diabetes Mellitus. ADA recommended reference range Performed By: #### C MP, LIPASE, CBC #### [address] HCG ( test) IA.rapi d Ql (U)Ordered By: Janeth Johnson on 08-20-2023 HCG ( test) Ql (U) Negative [facility] HCG,Urineon 08-20-2023 Beta HCG ( test) Ql (U) Negative Normal [facility] Comment on above: Order Comment: Name Collection Type:: Clean-Voided Midstream Result Comment: PERF ORMED BY: [place] [address] PATHOLOGIST VETERINARY SURGERY TECHNICIAN ALEXANDER SANDERS M.D. Performed By: #### C MP, LIPASE, CBC #### [address] Hematocrit [Volume Fraction] of Blood by Automated countOrdered By: Janeth Johnson on 08-20-2023 Hematocrit (Bld) [Volume fraction] 42.9 % Normal 34.0-46.4 [facility] Comment on above: Performed By: #### C MP, LIPASE, CBC #### [address] Hemoglobin [Mass/volume] in BloodOrdered By: Janeth Johnson on 08-20-2023 Hemoglobin (Bld) [Mass/Vol] 14.6 g/dL Normal 11.8-15.4 [facility] Comment on above: Performed By: #### C MP, LIPASE, CBC #### [address] Ketones Auto test strip (U) [Mass/Vol]Ordered By: Janeth Johnson on 08-20-2023 Ketones (U) [Mass/Vol] Negative Negative [facility] Leukocytes [#/volume] correc rosy for nucleated erythrocytes in Blood by Automated counOrdered By: Janeth Johnson on 08-20-2023 WBC corrected for nucl RBC Auto (Bld) [#/Vol] 7.5 10*3/uL 3.8-11.6 [facility] Leukocytes [#/volume] in Blo od by Automated countOrdered By: Janeth Johnson on 08-20-2023 WBC (Bld) [#/Vol] 7.5 10*3/uL Normal 3.8-11.6 [facility] Comment on above: Performed By: #### C MP, LIPASE, CBC #### [address] Lipase [Enzymatic activity/v olume] in Serum or PlasmaOrdered By: Janeth Johnson on 08-20-2023 Lipase [Catalytic activity/Vol] 28.0 U/L Normal 11.0-82.0 [facility] Comment on above: Result Comment: PERF ORMED BY: [place] [address] PATHOLOGIST VETERINARY SURGERY TECHNICIAN ALEXANDER SANDERS M.D. Performed By: #### C MP, LIPASE, CBC #### [place] [address] [place] Lymphocytes [#/volume] in Bl ood by Automated countOrdered By: Janeth Johnson on 08-20-2023 Lymphocytes (Bld) [#/Vol] 2.0 10*3/uL Normal 1.00-4.8 [facility] Comment on above: Performed By: #### C MP, LIPASE, CBC #### [place] [address] [place] Lymphocytes/100 leukocytes i n Blood by Automated countOrdered By: Janeth Johnson on 08-20-2023 Lymphocytes/100 WBC (Bld) 26.7 % Normal . [facility] Comment on above: Performed By: #### C MP, LIPASE, CBC #### [place] [address] [place] MCH [Entitic mass] by Automa rosy countOrdered By: Janeth Johnson on 08-20-2023 MCH (RBC) [Entitic mass] 30.4 pg Normal 24.7-34.3 [facility] Comment on above: Performed By: #### C MP, LIPASE, CBC #### [facility] [address] [place] [address] MCHC Auto (RBC) [Mass/Vol]Or dered By: Janeth Johnson on 08-20-2023 MCHC (RBC) [Mass/Vol] 34.0 g/dL 32.0-35.0 [facility] MCV [Entitic volume] by Auto mated countOrdered By: Janeth Johnson on 08-20-2023 MCV (RBC) [Entitic vol] 89.2 fL Normal 80-100 [facility] Comment on above: Performed By: #### C MP, LIPASE, CBC #### [facility] [address] [place] [address] Monocyte distribution width [Entitic volume] in Blood by AutomatedOrdered By: Janeth Johnson on 08-20-2023 Monocyte distribution width Auto (Bld) [Entitic vol] 15.39 % 0.00-20.00 [facility] Neutrophils [#/volume] in Bl ood by Automated countOrdered By: Janeth Johnson on 08-20-2023 Neutrophils (Bld) [#/Vol] 5.0 10*3/uL Normal 1.8-7.7 [facility] Comment on above: Performed By: #### C MP, LIPASE, CBC #### [facility] [address] [place] [address] Nitrite Test strip Ql (U)Ord ered By: Janeth Johnson on 08-20-2023 Nitrite Ql (U) Negative Negative [facility] No Panel InformationOrdered By: Janeth Johnson on 08-20-2023 Estimated GFR (CKD-EPI) > 60.0 mL/Min [facility] Creatinine Clearance (Chem 100.77 [facility] Nucleated erythrocytes [Pres ence] in Blood by Automated countOrdered By: Janeth Johnson on 08-20-2023 Nucleated RBC Auto Ql (Bld) 0.2 /100{WBC} 0-0.5 [facility] Platelet mean volume [Entiti c volume] in Blood by Automated countOrdered By: Janeth Johnson on 08-20-2023 Platelet mean volume (Bld) [Entitic vol] 7.5 fL Normal 6.3-10.7 [facility] Comment on above: Performed By: #### C MP, LIPASE, CBC #### [address] Platelets [#/volume] in Bloo d by Automated countOrdered By: Janeth Johnson on 08-20-2023 Platelets (Bld) [#/Vol] 447 10*3/uL Normal 150-450 [facility] Comment on above: Performed By: #### C MP, LIPASE, CBC #### [address] Potassium [Moles/volume] in Serum or PlasmaOrdered By: Janeth Johnson on 08-20-2023 Potassium [Moles/Vol] 3.7 mmol/L Normal 3.5-5.1 [facility] Comment on above: Performed By: #### C MP, LIPASE, CBC #### [address] Protein Auto test strip (U) [Mass/Vol]Ordered By: Janeth Johnson on 08-20-2023 Protein (U) [Mass/Vol] Negative Negative [facility] Protein [Mass/volume] in Ser um or PlasmaOrdered By: Janeth Johnson on 08-20-2023 Protein [Mass/Vol] 7.8 g/dL Normal 6.4-8.9 [facility] Comment on above: Performed By: #### C MP, LIPASE, CBC #### [address] Serum globulin measurement b y calculation (mass/volume)Ordered By: Janeth Johnson on 08-20-2023 Globulin (S) [Mass/Vol] 3.0 g/dL Normal [facility] Comment on above: Performed By: #### C MP, LIPASE, CBC #### [address] Serum or plasma albumin/glob ulin mass ratioOrdered By: Janeth Johnson on 08-20-2023 Albumin/Globulin [Mass ratio] 1.6 {ratio} Normal [facility] Comment on above: Performed By: #### C MP, LIPASE, CBC #### [address] Serum or plasma anion gap de terminationOrdered By: Janeth Johnson on 08-20-2023 Anion gap [Moles/Vol] 9.3 mmol/L Normal 6.0-15.0 [facility] Comment on above: Performed By: #### C MP, LIPASE, CBC #### [address] Sodium [Moles/volume] in Ser um or PlasmaOrdered By: Janeth Bettyhanna on 08-20-2023 Sodium [Moles/Vol] 140 mmol/L Normal 136-145 [facility] Comment on above: Performed By: #### C MP, LIPASE, CBC #### [address] Specific gravity Auto test s trip (U) [Rel density]Ordered By: Janeth Johnson on 08-20-2023 Specific gravity (U) [Rel density] 1.011 1.001-1.030 [facility] Urea nitrogen [Mass/volume] in Serum or PlasmaOrdered By: Janeth Bettyhanna on 08-20-2023 Urea nitrogen [Mass/Vol] 6 mg/dL Low 7-25 [facility] Comment on above: Performed By: #### C MP, LIPASE, CBC #### [address] Urinalysison 08-20-2023 Appearance (U) Clear Normal Clear [facility] Comment on above: Order Comment: Name Collection Type:: Clean-Voided Midstream Performed By: #### C MP, LIPASE, CBC #### [address] Bilirubin,Urine Negative Normal Negative [facility] Comment on above: Order Comment: Name Collection Type:: Clean-Voided Midstream Performed By: #### C MP, LIPASE, CBC #### [address] Glucose Ql (U) Normal Normal Normal [facility] Comment on above: Order Comment: Name Collection Type:: Clean-Voided Midstream Performed By: #### C MP, LIPASE, CBC #### [address] Ketones Ql (U) Negative Normal Negative [facility] Comment on above: Order Comment: Name Collection Type:: Clean-Voided Midstream Performed By: #### C MP, LIPASE, CBC #### [address] Leukocyte esterase Test strip Ql (U) Negative Normal Negative [facility] Comment on above: Order Comment: Name Collection Type:: Clean-Voided Midstream Performed By: #### C MP, LIPASE, CBC #### [address] Nitrite,Urine Negative Normal Negative [facility] Comment on above: Order Comment: Name Collection Type:: Clean-Voided Midstream Performed By: #### C MP, LIPASE, CBC #### [address] Occult Blood,Urine Negative Normal Negative [facility] Comment on above: Order Comment: Name Collection Type:: Clean-Voided Midstream Performed By: #### C MP, LIPASE, CBC #### [address] Protein,Urine Negative Normal Negative [facility] Comment on above: Order Comment: Name Collection Type:: Clean-Voided Midstream Performed By: #### C MP, LIPASE, CBC #### [place] [address] [place] Specificy Mobile,Urine 1.011 Normal 1.001-1.030 [facility] Comment on above: Order Comment: Name Collection Type:: Clean-Voided Midstream Performed By: #### C MP, LIPASE, CBC #### [address] Urobilinogen,Urine Normal Normal Normal [facility] Comment on above: Order Comment: Name Collection Type:: Clean-Voided Midstream Performed By: #### C MP, LIPASE, CBC #### [facility] [address] [id number] [place] Urine clarity by refractomet ry automatedOrdered By: Janeth Johnson on 08-20-2023 Clarity Refractometry automated (U) Clear Clear [facility] Urine glucose measurement by automated test strip (mass/volume)Ordered By: Janeth Johnson on 08-20-2023 Glucose Auto test strip (U) [Mass/Vol] Normal mg/dL Normal [facility] Urine hemoglobin detection b y automated test stripOrdered By: Janeth Johnson on 08-20-2023 Hemoglobin Auto test strip Ql (U) Negative Negative [facility] Urine leukocyte esterase det ection by automated test stripOrdered By: Janeth Johnson on 08-20-2023 Leukocyte esterase Auto test strip Ql (U) Negative Negative [facility] Urine pH measurement by auto mated test stripOrdered By: Janeth Johnson on 08-20-2023 pH (U) 7.5 [pH] Normal 5.0-9.0 [facility] Comment on above: Order Comment: Name Collection Type:: Clean-Voided Midstream Performed By: #### C MP, LIPASE, CBC #### [facility] [address] [place], [place] [id number] [facility] Urobilinogen Auto test strip (U) [Mass/Vol]Ordered By: Jnaeth Johnson on 08-20-2023 Urobilinogen (U) [Mass/Vol] Normal mg/dL Normal [facility] Consent for Treatmenton 07-28 Consent for Treatment [id number] .00TIFF Normal [facility] Discharge Instructionson Discharge Instructions [id number]# 1.00TIFF Normal [facility] ED Clinical Summaryon 2023 ED Clinical Summary Normal [facility] ED Note-Physicianon 08-18-19 ED Note-Physician Normal [facility] Comment on above: Result Comment: Elec tronically Signed By: Justo Arias DO\.tesha\Date and Time Signed: 08/18/23 11:41 EDT ED Patient Education Noteon 08-18-2023 ED Patient Education Note Normal [facility] ED Patient Summaryon 024 ED Patient Summary Normal [facility] SEROLOGYOrdered By: Kyle Mcgill on 08-18-2023 HCG.beta subunit (U) [Moles/Vol] Negative Normal [facility] Man Sero U BetaHcg Qualon 08-18-2023 HCG.beta subunit (U) [Moles/Vol] Negative Normal [facility] Comment on above: Performed By: #### 2 [id number], [id number] ####[facility] [address] [place] [address] UA with Cult Rflxon 08-18-19 Bilirubin Ql (U) Negative Normal Negative [facility] Comment on above: Performed By: #### 2 8502335, [id number] ####[facility] [address] [place] [address] Clarity (U) Clear Normal Clear [facility] Comment on above: Performed By: #### 2 0694673, [id number] ####[facility] [address] [place] [address] Color (U) Colorless Abnormal Yellow [facility] Comment on above: Result Comment: Micr oscopic readings are only performed on those samples that meet specific criteria set forth by [facility] Laboratory. Performed By: #### 2 9682467, [id number] ####[facility] [address] [place] [address] Glucose Ql (U) Negative Normal Negative [facility] Comment on above: Performed By: #### 2 5675950, [id number] ####[facility] [address] [place] [address] Hemoglobin Auto test strip (U) [Mass/Vol] Negative Normal Negative [facility] Comment on above: Performed By: #### 2 3956777, [id number] ####[facility] [address] [place] [address] Ketones Auto test strip Ql (U) Negative Normal Negative [facility] Comment on above: Performed By: #### 2 1479125, [id number] ####[facility] [address] [place] [address] Leukocyte esterase Auto test strip Ql (U) Negative Normal Negative [facility] Comment on above: Performed By: #### 2 7522626, [id number] ####[facility] [address] [place] [address] Nitrite Auto test strip Ql (U) Negative Normal Negative [facility] Comment on above: Performed By: #### 2 0330551, [id number] ####[address] [address] pH (U) 6.5 [pH] Invalid Interpretation Code 5.0-9.0 [facility] Comment on above: Performed By: #### 2 1626202, [id number] ####[address] [address] Protein Ql (U) Negative Normal Negative [facility] Comment on above: Performed By: #### 2 9596355, [id number] ####[address] [address] Specific gravity (U) [Rel density] 1.010 Invalid Interpretation Code 1.005-1.030 [facility] Comment on above: Performed By: #### 2 4085115, [id number] ####[facility] [address] [place] [address] Urobilinogen (U) [Mass/Vol] Negative Normal Negative [facility] Comment on above: Performed By: #### 2 2096389, [id number] ####[address] [address] Type of Urine collection method Clean Catch Normal [facility] Comment on above: Performed By: #### 2 3581523, [id number] ####[facility] [address] [place] [address] URINALYSISOrdered By: SYSTEM SYSTEM on 08-18-2023 Bilirubin [...] that meet specific criteria set forth by [facility] Laboratory. Glucose Ql (U) Negative [...] Desc Clean Catch (08/18/23 11:04 AM) Normal [facility] UA Auto SS Work Phone: BMPon 08-14-2023 Anion gap [Moles/Vol] 13 mmol/L Normal 6-16 [facility] Comment on above: Performed By: #### 2 666263, 2110348, [id number] ####[facility] [address] [place] [address] Calcium [Mass/Vol] 9.6 mg/dL Normal 8.9-11.1 [facility] Comment on above: Performed By: #### 2 278729, 2731004, [id number] ####[facility] [address] [place] [address] Chloride [Moles/Vol] 107 mmol/L Normal 101-111 [facility] Comment on above: Performed By: #### 2 331764, 4190221, [id number] ####[facility] [address] [place] [address] CO2 [Moles/Vol] 24 mmol/L Normal 21-31 [facility] Comment on above: Performed By: #### 2 405971, 0665332, [id number] ####[facility] [address] [place] [place] [address] Creatinine [Mass/Vol] 0.7 mg/dL Normal 0.5-1.3 [facility] Comment on above: Performed By: #### 2 302956, 8753332, [id number] ####[facility] [address] [place] [place] [address] Glucose [Mass/Vol] 99 mg/dL Normal 55-199 [facility] Comment on above: Performed By: #### 2 581295, 8504722, 81720354 ####[facility] [address] [place] [address] Potassium [Moles/Vol] 3.2 mmol/L Low 3.5-5.3 [facility] Comment on above: Performed By: #### 2 859612, 6183787, [id number] ####[facility] [address] [place] [address] Sodium [Moles/Vol] 141 mmol/L Normal 135-145 [facility] Comment on above: Performed By: #### 2 595484, 6564514, [id number] ####[facility] [address] [place] [address] Urea nitrogen [Mass/Vol] 5 mg/dL Normal 5-21 [facility] Comment on above: Performed By: #### 2 701175, 7016282, [id number] ####[facility] [address] [place] [address] Urea nitrogen/Creatinine [Mass ratio] 7 No Units Low 10-20 [facility] Comment on above: Performed By: #### 2 664615, 8680257, [id number] ####[address] [address] CBC w/ Auto Diffon 4 Basophils/100 WBC (Bld) 0.4 % Normal 0.0-2.0 F [facility] Comment on above: Performed By: #### 2 700210, 9882170, 46385792 ####[address] [address] Basophils/Leukocytes Auto (Bld) [Pure # fraction] 0.0 E9/L Normal 0.0-0.2 [facility] Comment on above: Performed By: #### 2 691681, 8177448, 31706829 ####[address] [address] Eosinophils (Bld) [#/Vol] 0.0 E9/L Normal 0.0-0.5 [facility] Comment on above: Performed By: #### 2 417463, 1174450, 44505610 ####[address] [address] Eosinophils/100 WBC (Bld) 0.3 % Normal 0.0-8.0 [facility] Comment on above: Performed By: #### 2 088262, 9640933, 27368335 ####[address] [address] Erythrocyte distribution width (RBC) [Ratio] 13.3 % Normal 10.9-14.2 [facility] Comment on above: Performed By: #### 2 568795, 8213659, 29522507 ####[address] [address] Hematocrit (Bld) [Volume fraction] 40.7 % Normal 34.0-46.0 [facility] Comment on above: Performed By: #### 2 519281, 6870735, 58443721 ####[address] [address] Hemoglobin (Bld) [Mass/Vol] 13.6 g/dL Normal 12.0-16.0 [facility] Comment on above: Performed By: #### 2 699583, 5136931, 98596036 ####[address] [address] Lymphocytes (Bld) [#/Vol] 2.2 E9/L Normal 1.0-4.0 [facility] Comment on above: Performed By: #### 2 629297, 6798815, 06915098 ####[address] [address] Lymphocytes/100 WBC (Bld) 21.0 % Normal 14.0-50.0 [facility] Comment on above: Performed By: #### 2 894686, 3301668, 11321338 ####[address] [address] MCH (RBC) [Entitic mass] 29.9 pg Normal 27.0-34.0 [facility] Comment on above: Performed By: #### 2 538965, 0031584, 27804723 ####[address] [address] MCHC (RBC) [Mass/Vol] 33.5 g/dL Normal 31.4-36.0 [facility] Comment on above: Performed By: #### 2 271023, 7652689, 15441486 ####[address] [address] MCV (RBC) [Entitic vol] 89.2 fL Normal 80.0-100.0 F [facility] Comment on above: Performed By: #### 2 106061, 4320233, 47625127 ####[facility] [address] [place] [address] Monocytes (Bld) [#/Vol] 0.5 E9/L Normal 0.2-1.0 F [facility] Comment on above: Performed By: #### 2 761813, 9142952, 04219498 ####[address] [address] Neutrophils (Bld) [#/Vol] 7.6 E9/L High 2.0-7.5 [facility] Comment on above: Performed By: #### 2 697566, 0021017, 05930244 ####[address] [address] Neutrophils/100 WBC (Bld) 73.5 % Normal 36.0-75.0 [facility] Comment on above: Performed By: #### 2 901466, 2320390, 22980260 ####[address] [address] Platelet mean volume (Bld) [Entitic vol] 7.2 fL Normal 6.4-10.8 [facility] Comment on above: Performed By: #### 2 031910, 1329100, 30606453 ####[address] [address] Platelets (Bld) [#/Vol] 421.0 E9/L Normal 150.0-500.0 [facility] Comment on above: Performed By: #### 2 714234, 3088470, 37251198 ####[address] [address] RBC (Bld) [#/Vol] 4.6 E12/L Normal 4.3-5.9 [facility] Comment on above: Performed By: #### 2 401783, 2478710, 61443931 ####[address] [address] WBC corrected for nucl RBC Auto (Bld) [#/Vol] 10.4 E9/L Normal 4.0-11.0 [facility] Comment on above: Performed By: #### 2 865730, 8606330, 81214056 ####[facility] [address] [place] [address] CHEMISTRYOrdered By: Azam pamrar on 08-14-2023 Anion gap [Moles/Vol] 13 mmol/L Normal 6 - 16 mEq/L F [facility] [place] Chem S Calcium [Mass/Vol] 9.6 mg/dL Normal 8.9 - 11. 1 mg/dL [facility] Chem S Chloride [Moles/Vol] 107 mmol/L Normal 101 - 1 11 mmol/L [facility] Chem S CO2 [Moles/Vol] 24 mmol/L Normal 21 - 31 mmol/L [facility] Chem S Creatinine [Mass/Vol] 0.7 mg/dL Normal 0.5 - 1.3 mg/dL [facility] Chem S eGFR Unable to Calculate (08/14/23 3:16 PM) Normal >=59 [facility] Chem S Glucose [Mass/Vol] 99 mg/dL Normal 55 - 199 mg/dL [facility] Chem S Potassium [Moles/Vol] 3.2 mmol/L Low 3.5 - 5.3 mmol/L [facility] Chem S Sodium [Moles/Vol] 141 mmol/L Normal 135 - 145 mmol/L [facility] Chem S Urea nitrogen [Mass/Vol] 5 mg/dL Normal 5 - 21 mg/dL [facility] Chem S Urea nitrogen/Creatinine [Mass ratio] 7 mg/mg Low 10 - 20 [facility] Chem S Consent for Treatmenton 07-27 Consent for Treatment [id number] .00TIFF Normal [facility] Discharge Instructionson Discharge Instructions [id number]. 00TIFF Normal [facility] ED Clinical Summaryon 2023 ED Clinical Summary Normal [facility] ED Note-Physicianon 08-14-19 ED Note-Physician Normal [facility] Comment on above: Result Comment: Elec tronically Signed By: Arpita Layton, Mary Jane H\.br\Date and Time Signed: 08/14/23 17:09 EDT ED Patient Education Noteon 08-14-2023 ED Patient Education Note Normal [facility] ED Patient Summaryon 024 ED Patient Summary Normal [facility] HEMATOLOGYOrdered By: SYSTEM SYSTEM on [...] 08-14-2023 HCG.beta subunit (U) [Moles/Vol] Negative Normal [facility] Man Sero U BetaHcg Qualon 08-14-2023 HCG.beta subunit (U) [Moles/Vol] Negative Normal [facility] Comment on above: Performed By: #### 2 9012922, [id number] ####[facility] [address] [place] [address] UA with Cult Rflxon 08-14-19 24 Bilirubin Ql (U) Negative Normal Negative [facility] Comment on above: Performed By: #### 2 0899301, [id number] ####[facility] [address] [place] [address] Clarity (U) Clear Normal Clear [facility] Comment on above: Performed By: #### 2 4058577, [id number] ####[facility] [address] [place] [address] Color (U) Light-Yellow Normal Yellow [facility] Comment on above: Result Comment: Micr oscopic readings are only performed on those samples that meet specific criteria set forth by [facility] Laboratory. Performed By: #### 2 5316652, [id number] ####[facility] [address] [place] [address] Glucose Ql (U) Negative Normal Negative [facility] Comment on above: Performed By: #### 2 6275371, [id number] ####[facility] [address] [place] [address] Hemoglobin Auto test strip (U) [Mass/Vol] Trace Abnormal Negative [facility] Comment on above: Performed By: #### 2 4976241, [id number] ####[facility] [address] [place] [address] Ketones Auto test strip Ql (U) Negative Normal Negative [facility] Comment on above: Performed By: #### 2 0381766, [id number] ####[facility] [address] [place] [address] Leukocyte esterase Auto test strip Ql (U) Negative Normal Negative [facility] Comment on above: Performed By: #### 2 7288669, [id number] ####[facility] [address] [place] [address] Nitrite Auto test strip Ql (U) Negative Normal Negative [facility] Comment on above: Performed By: #### 2 1374293, [id number] ####[facility] [address] [place] [address] pH (U) 5.5 [pH] Invalid Interpretation Code 5.0-9.0 [facility] Comment on above: Performed By: #### 2 5096986, [id number] ####[facility] [address] [place] [address] Protein Ql (U) Negative Normal Negative [facility] Comment on above: Performed By: #### 2 1599094, [id number] ####[facility] [address] [place] [address] Specific gravity (U) [Rel density] 1.015 Invalid Interpretation Code 1.005-1.030 [facility] Comment on above: Performed By: #### 2 2741058, [id number] ####[facility] [address] [place] [address] Urobilinogen (U) [Mass/Vol] Negative Normal Negative [facility] Comment on above: Performed By: #### 2 4804484, [id number] ####[facility] [address] [place] [address] Type of Urine collection method Clean Catch Normal [facility] Comment on above: Performed By: #### 2 7270368, [id number] ####[facility] [address] [place] [address] URINALYSISOrdered By: SYSTEM SYSTEM on 08-14-2023 Bilirubin Ql (U) Negative Normal Negativemg/ d L [facility] UA Auto SS Clarity (U) Clear (08/14/23 3:11 PM) Normal Clear [facility] UA Auto SS Color (U) Light-Yellow 1 (08/14/23 3:11 PM) Normal Yellow [facility] UA Auto SS Comment on above: Interpretive Data: M icroscopic readings are only performed on those samples that meet specific criteria set forth by [facility]. Glucose Ql (U) Negative [...] Desc Clean Catch (08/14/23 3:11 PM) Normal [facility] UA Auto SS eGFRon 08-14-2023 eGFR Unable to Calculate Normal >=59 Chavo vasquez [facility] Comment on above: Order Comment: Order added by Discern Expert. Performed By: #### 2 297290, 2258378, [id number] ####[facility] [address] [place] [address] Consent for Treatmenton 07-27 Consent for Treatment [id number] .00TIFF Normal [facility] Discharge Instructionson Discharge Instructions [id number]# 1.00TIFF Normal [facility] ED Clinical Summaryon 2023 ED Clinical Summary Normal [facility] ED Note-Physicianon 08-10-19 ED Note-Physician Normal [facility] Comment on above: Result Comment: Elec tronically Signed By: Sy Pickard PA-C\.br\Date and Time Signed: 08/10/23 13:28 EDT\.br\Electronically Co-Signed By: Mary Jane Palm M.D.\.br\Date and Time Co-Signed: 08/10/23 14:13 EDT ED Patient Education Noteon 08-10-2023 ED Patient Education Note Normal [facility] ED Patient Summaryon 024 ED Patient Summary Normal [facility] Physician Orderon 08-05-2023 Physician Order [id number] .00TIFF Normal [facility] [facility] PELVIC COMPLETE W/ TVon [...] Summaryon 0 07-30-2023 Ambulatory Visit Summary Normal [facility] Consenton 07-30-2023 Consent [id number] .00TIFF Normal [facility] Family Medicine Office/Clini c Noteon 07-30-2023 Family Medicine Office/Clinic Note Normal [facility] Comment on above: Result Comment: Elec tronically Signed By: SANIA LUKE, LANETTE\.br\Date and Time Signed: 07/30/23 14:40 EDT Patient Educationon 07-30-19 24 Patient Education Normal [facility] B hCG Qualon 07-26-2023 Beta HCG ( test) Ql Negative [facility] Comment on above: Performed By: #### 1 4842547, 2766023, 3673964, 36948237 ####[facility] [address] [place] [address] BMPon 07-26-2023 Creatinine [Mass/Vol] 0.8 mg/dL Normal 0.5-1.3 [facility] Comment on above: Performed By: #### 1 1529367, 0842962, 4459239, 84480846 ####[facility] [address] [place] [address] Urea nitrogen/Creatinine [Mass ratio] 11 No Units Normal 10-20 [facility] Comment on above: Performed By: #### 1 0994311, 8680809, 2890797, 60015470 ####[facility] [address] [place] [address] Anion gap [Moles/Vol] 11 mmol/L Normal 6-16 [facility] Comment on above: Performed By: #### 1 0330488, 7683722, 2343705, 41932902 ####[facility] [address] [place] [address] Calcium [Mass/Vol] 9.7 mg/dL Normal 8.9-11.1 [facility] Comment on above: Performed By: #### 1 5753726, 0412375, 3820961, 51093259 ####[facility] [address] [place] [address] Chloride [Moles/Vol] 104 mmol/L Normal 101-111 [facility] Comment on above: Performed By: #### 1 3232131, 4223611, 8864683, 87294200 ####[facility] [address] [place] [address] CO2 [Moles/Vol] 26 mmol/L Normal 21-31 [facility] Comment on above: Performed By: #### 1 6239175, 8093101, 8972630, 89042472 ####[facility] [address] [place] [address] Glucose [Mass/Vol] 87 mg/dL Normal 55-199 [facility] Comment on above: Performed By: #### 1 8141515, 4840930, 2129455, 38440452 ####[facility] [address] [place] [address] Potassium [Moles/Vol] 3.4 mmol/L Low 3.5-5.3 [facility] Comment on above: Performed By: #### 1 2455551, 9148294, 7797906, 25792800 ####[facility] [address] [place] [address] Sodium [Moles/Vol] 138 mmol/L Normal 135-145 [facility] Comment on above: Performed By: #### 1 4467333, 6658004, 1880258, 83955695 ####[facility] [address] [place] [address] Urea nitrogen [Mass/Vol] 9 mg/dL Normal 5-21 [facility] Comment on above: Performed By: #### 1 6551226, 6088124, 4140073, 48716206 ####[address] [place] [address] CBC w/ Auto Diffon 4 Basophils/100 WBC (Bld) 1.9 % Normal 0.0-2.0 [facility] Comment on above: Performed By: #### 1 5003292, 0718581, 4455388, 43615221 ####[address] [address] Basophils/Leukocytes Auto (Bld) [Pure # fraction] 0.2 E9/L Normal 0.0-0.2 [facility] Comment on above: Performed By: #### 1 8630655, 2242766, 9107343, 85372898 ####[address] [address] Eosinophils (Bld) [#/Vol] 0.3 E9/L Normal 0.0-0.5 [facility] Comment on above: Performed By: #### 1 9169955, 0826061, 1218400, 80829697 ####[address] [address] Eosinophils/100 WBC (Bld) 2.5 % Normal 0.0-8.0 [facility] Comment on above: Performed By: #### 1 3555504, 2965912, 4110689, 33831027 ####[address] [address] Erythrocyte distribution width (RBC) [Ratio] 12.9 % Normal 10.9-14.2 [facility] Comment on above: Performed By: #### 1 3427385, 4625046, 4953887, 92846852 ####[address] [address] Hematocrit (Bld) [Volume fraction] 43.8 % Normal 34.0-46.0 [facility] Comment on above: Performed By: #### 1 9651118, 7457554, 1933814, 89009077 ####[address] [address] Hemoglobin (Bld) [Mass/Vol] 14.8 g/dL Normal 12.0-16.0 [facility] Comment on above: Performed By: #### 1 2299611, 7683334, 7012515, 44927210 ####[facility] [address] [place] [address] Lymphocytes (Bld) [#/Vol] 3.4 E9/L Normal 1.0-4.0 [facility] Comment on above: Performed By: #### 1 3588032, 2398297, 9177095, 49871245 ####[address] [address] Lymphocytes/100 WBC (Bld) 31.0 % Normal 14.0-50.0 [facility] Comment on above: Performed By: #### 1 1748950, 9329453, 6458789, 22885502 ####[address] [address] MCH (RBC) [Entitic mass] 30.1 pg Normal 27.0-34.0 [facility] Comment on above: Performed By: #### 1 2564766, 3276470, 4142316, 43451695 ####[address] [address] MCHC (RBC) [Mass/Vol] 33.8 g/dL Normal 31.4-36.[address] [facility] Comment on above: Performed By: #### 1 3331978, 7763933, 2869018, 37363491 ####[address] [address] MCV (RBC) [Entitic vol] 89.1 fL Normal 80.0-100.0 [facility] Comment on above: Performed By: #### 1 9083367, 3056201, 9900265, 79973211 ####[address] [address] Monocytes (Bld) [#/Vol] 0.5 E9/L Normal 0.2-1.0 [facility] Comment on above: Performed By: #### 1 4819325, 3794315, 8008856, 04340840 ####[address] [address] Neutrophils (Bld) [#/Vol] 6.5 E9/L Normal 2.0-7.5 [facility] Comment on above: Performed By: #### 1 5135071, 3373804, 5074407, 69640399 ####[address] [address] Neutrophils/100 WBC (Bld) 60.4 % Normal 36.0-75.0 [facility] Comment on above: Performed By: #### 1 6573103, 6308483, 0371832, 90723460 ####[address] [address] Platelet mean volume (Bld) [Entitic vol] 8.3 fL Normal 6.4-10.8 [facility] Comment on above: Performed By: #### 1 9255026, 2231986, 9736156, 86318300 ####[address] [address] Platelets (Bld) [#/Vol] 463.0 E9/L Normal 150.0-500.0 [facility] Comment on above: Performed By: #### 1 5282134, 6742080, 1858912, 93564701 ####[address] [address] RBC (Bld) [#/Vol] 4.9 E12/L Normal 4.3-5.9 [facility] Comment on above: Performed By: #### 1 9807005, 7142757, 3711520, 97375317 ####[address] [address] WBC corrected for nucl RBC Auto (Bld) [#/Vol] 10.8 E9/L Normal 4.0-11.0 [facility] Comment on above: Performed By: #### 1 0458900, 9061014, 9113147, 79333855 ####[facility] [address] [place] [address] CHEMISTRYOrdered By: SYSTEM SYSTEM on 07-26-2023 Anion [...] ton 07-26-2023 CT Abdomen/Pelvis w/ Contrast Normal [facility] Consent for Treatmenton 06-28 Consent for Treatment [id number]#1 .00TIFF Normal [facility] Discharge Instructionson Discharge Instructions [id number] #1.00TIFF Normal [facility] ED Clinical Summaryon 2023 ED Clinical Summary Normal [facility] ED Note-Physicianon 07-26-19 24 ED Note-Physician Normal [facility] Comment on above: Result Comment: Elec tronically Signed By: Darren Lomax DObr\Date and Time Signed: 07/26/23 12:21 EDT ED Patient Education Noteon 07-26-2023 ED Patient Education Note Normal [facility] ED Patient Summaryon 024 ED Patient Summary Normal [facility] HEMATOLOGYOrdered By: SYSTEM SYSTEM on [...] test) Ql Negative (07/26/23 9:47 AM) Normal [facility] Man Sero UA with Cult Rflxon 07-26-19 Color (U) Colorless Abnormal Yellow [facility] Comment on above: Result Comment: Micr oscopic readings are only performed on those samples that meet specific criteria set forth by [facility] Laboratory. Performed By: #### 4 [id number] ####[facility] [address] [place] [address] Glucose (U) [Mass/Vol] Negative Normal Negative [facility] Comment on above: Performed By: #### 4 [id number] ####[address] [place] [address] Ketones Ql (U) Negative Normal Negative [facility] Comment on above: Performed By: #### 4 259607471 ####[facility] [address] [place] [address] UA Blood Negative Normal Negative [facility] Comment on above: Performed By: #### 4 [id number] ####[facility] [address] [place] [address] UA Clarity Clear Normal Clear [facility] Comment on above: Performed By: #### 4 608476263 ####[facility] [address] [place] [address] UA Leuk Est Negative Normal Negative [facility] Comment on above: Performed By: #### 4 709236859 ####[facility] [address] [place] [address] UA Nitrite Negative Normal Negative [facility] Comment on above: Performed By: #### 4 074606681 ####[facility] [address] [place] [address] UA pH 7.0 Invalid Interpretation Code 5.0-9.0 [facility] Comment on above: Performed By: #### 4 201375518 ####[facility] [address] [place] [address] UA Protein Negative Normal Negative [facility] Comment on above: Performed By: #### 4 900787598 ####[address] [address] UA Spec Grav 1.008 Invalid Interpretation Code 1.005-1.030 [facility] Comment on above: Performed By: #### 4 [id number] ####[facility] [address] [place] [address] UA Urobilinogen Negative Normal Negative [facility] Comment on above: Performed By: #### 4 529240317 ####[address] [address] Urobilinogen (U) [Mass/Vol] Negative Normal Negative [facility] Comment on above: Performed By: #### 4 193880484 ####[facility] [address] [place] [address] UA Spec Desc Clean Catch Normal [facility] Comment on above: Performed By: #### 4 [id number] ####[facility] [address] [place] [address] URINALYSISOrdered By: SYSTEM SYSTEM on 07-26-2023 Color (U) Colorless 1 *ABN* (07/26/23 10:26 AM) Invalid Interpretation Code Yellow [facility] UA Auto SS Comment on above: Interpretive Data: M icroscopic readings are only performed on those samples that meet specific criteria set forth by [facility] Laboratory. Glucose (U) [Mass/Vol] Negative [...] Desc Clean Catch (07/26/23 10:26 AM) Normal [facility] UA Auto SS Work Phone: eGFRon 07-26-2023 eGFR 102 mL/min/1.73 m2 Normal >=59 [facility] Comment on above: Order Comment: Order added by Discern Expert. Performed By: #### 1 7971394, 8420067, 8540593, 41708803 ####[facility] [place] [address] Physician Orderon 07-24-2023 Physician Order [id number]#1 .00TIFF Normal [facility] B hCG Qualon 07-19-2023 Beta HCG ( test) Ql Negative Normal [facility] Comment on above: Performed By: #### 1 7852589, 5526024, 08217620, 52384453, 1108461, 98555481, 1811712 ####[facility] [address] [place] [address] BMPon 07-19-2023 Calcium [Mass/Vol] 9.7 mg/dL Normal 8.9-11.1 [facility] Comment on above: Performed By: #### 1 1249437, 1568668, 68639206, 51271675, 3332681, 87546999, 2151546 ####[facility] [address] [place] [address] Chloride [Moles/Vol] 100 mmol/L Low 101-111 [facility] Comment on above: Performed By: #### 1 5327625, 0503929, 47889642, 04704243, 0522431, 90064320, 7693147 ####[facility] [address] [place] [address] Glucose [Mass/Vol] 106 mg/dL Normal 55-199 [facility] Comment on above: Performed By: #### 1 2161967, 4843825, 98341095, 28139215, 9266864, 55067012, 4132087 ####[facility] [address] [place] [address] Potassium [Moles/Vol] 3.6 mmol/L Normal 3.5-5.3 [facility] Comment on above: Performed By: #### 1 2831036, 9590436, 68281313, 37105269, 4242892, 41685497, 3949676 ####[facility] [address] [place] [address] Sodium [Moles/Vol] 136 mmol/L Normal 135-145 [facility] Comment on above: Performed By: #### 1 0688395, 7372106, 80632056, 82030167, 3465082, 22518526, 4130392 ####[facility] [address] [place] [address] Urea nitrogen [Mass/Vol] 7 mg/dL Normal 5-21 [facility] Comment on above: Performed By: #### 1 3403352, 4480534, 58348155, 75951930, 7914105, 12975837, 6161612 ####[facility] [address] [place] [address] Anion gap [Moles/Vol] 14 mmol/L Normal 6-16 [facility] Comment on above: Performed By: #### 1 0616070, 8714443, 03568921, 73683029, 4399074, 33201008, 4419481 ####[facility] [address] [place] [address] CO2 [Moles/Vol] 26 mmol/L Normal 21-31 [facility] Comment on above: Performed By: #### 1 0364322, 9589447, 24467133, 63401280, 2131765, 31528952, 3032621 ####[facility] [address] [place] [address] Creatinine [Mass/Vol] 0.8 mg/dL Normal 0.5-1.3 [facility] Comment on above: Performed By: #### 1 5458246, 0006462, 64919580, 67774551, 2191441, 81552846, 9489165 ####[facility] [address] [place] [address] Urea nitrogen/Creatinine [Mass ratio] 9 No Units Low 10-20 [facility] Comment on above: Performed By: #### 1 9047159, 8343042, 49992806, 64080031, 3671146, 09535080, 4331646 ####[facility] [address] [place] [address] CBC w/ Auto Diffon 4 Basophils/100 WBC (Bld) 0.3 % Normal 0.0-2.0 F [facility] Comment on above: Performed By: #### 1 0434534, 8005006, 96648129, 90728989, 0060709, 95567671, 0879553 ####[facility] [address] [place] [address] Basophils/Leukocytes Auto (Bld) [Pure # fraction] 0.0 E9/L Normal 0.0-0.2 [facility] Comment on above: Performed By: #### 1 1240461, 0288171, 24050493, 40068618, 1815995, 33919199, 3483289 ####[address] [place] [address] Eosinophils (Bld) [#/Vol] 0.2 E9/L Normal 0.0-0.5 [facility] Comment on above: Performed By: #### 1 3411322, 0146970, 99070798, 30355434, 3437600, 37853467, 2019201 ####[address] [place] [address] Eosinophils/100 WBC (Bld) 1.7 % Normal 0.0-8.0 [facility] Comment on above: Performed By: #### 1 0362010, 1140140, 85188408, 34496497, 2000208, 87871711, 4117096 ####[address] [address] Erythrocyte distribution width (RBC) [Ratio] 13.0 % Normal 10.9-14.2 [facility] Comment on above: Performed By: #### 1 6758184, 2036232, 45298462, 67071558, 6338603, 83660055, 3114747 ####[address] [address] Hematocrit (Bld) [Volume fraction] 42.7 % Normal 34.0-46.0 [facility] Comment on above: Performed By: #### 1 2886975, 8688735, 52820394, 46309821, 7059497, 08030109, 8489310 ####[address] [place] [address] Hemoglobin (Bld) [Mass/Vol] 14.7 g/dL Normal 12.0-16.0 [facility] Comment on above: Performed By: #### 1 0927636, 1156715, 90161792, 57150034, 2938558, 07028345, 5748701 ####[address] [address] Lymphocytes (Bld) [#/Vol] 1.4 E9/L Normal 1.0-4.0 [facility] Comment on above: Performed By: #### 1 1457600, 2323948, 45498097, 49716244, 2311603, 46143893, 6827006 ####[facility] [address] [place] Lymphocytes/100 WBC (Bld) 13.2 % Low 14.0-50.0 [facility] Comment on above: Performed By: #### 1 2924313, 7577160, 55121172, 38856312, 9967880, 77471535, 9833664 ####[facility] [address] [place] [address] MCH (RBC) [Entitic mass] 30.6 pg Normal 27.0-34.0 [facility] Comment on above: Performed By: #### 1 0094500, 2070797, 99995190, 52773667, 4834385, 61366697, 5375066 ####[facility] [address] [place] [address] MCHC (RBC) [Mass/Vol] 34.5 g/dL Normal 31.4-36.0 [facility] Comment on above: Performed By: #### 1 0689241, 0434949, 95222960, 57223152, 3891015, 19131371, 1412047 ####[address] MCV (RBC) [Entitic vol] 88.8 fL Normal 80.0-100.0 [facility] Comment on above: Performed By: #### 1 3827499, 3305579, 54162198, 44709632, 2297668, 75354555, 2794770 ####[address] [place] [address] Monocytes (Bld) [#/Vol] 0.5 E9/L Normal 0.2-1.0 [facility] Comment on above: Performed By: #### 1 9170358, 5457365, 53387597, 82513619, 7770900, 04301139, 2726841 ####[facility] [address] [place] [address] Neutrophils (Bld) [#/Vol] 8.8 E9/L High 2.0-7.5 [facility] Comment on above: Performed By: #### 1 2325147, 4576062, 36985680, 05878423, 5912109, 56545632, 0332117 ####[facility] [address] [place] [address] Neutrophils/100 WBC (Bld) 80.3 % High 36.0-75.0 [facility] Comment on above: Performed By: #### 1 4023965, 8362485, 70255289, 62388226, 9589155, 44560865, 9979823 ####[address] [address] Platelet mean volume (Bld) [Entitic vol] 7.7 fL Normal 6.4-10.8 [facility] Comment on above: Performed By: #### 1 4524853, 0149374, 09109582, 52487143, 0403936, 87068662, 8606227 ####[address] [address] Platelets (Bld) [#/Vol] 430.0 E9/L Normal 150.0-500.0 [facility] Comment on above: Performed By: #### 1 8092353, 2848461, 58443232, 39391576, 2839462, 30169786, 1441124 ####[address] [place] [address] RBC (Bld) [#/Vol] 4.8 E12/L Normal 4.3-5.9 [facility] Comment on above: Performed By: #### 1 7259896, 8137012, 91227392, 65679770, 7359107, 09386269, 8269599 ####[facility] [address] [place] [address] WBC corrected for nucl RBC Auto (Bld) [#/Vol] 11.0 E9/L Normal 4.0-11.0 [facility] Comment on above: Performed By: #### 1 4106334, 9230467, 30096486, 56541117, 1659600, 36158142, 4179909 ####[facility] [address] [place] [address] CHEMISTRYOrdered By: SYSTEM SYSTEM on 07-19-2023 Anion [...] Sensitivity Troponin I Instructions For Use, Tegan Bronx, November 2017) Urea nitrogen [Mass/Vol] 7 mg/dL Normal 5 - 21 mg/dL Remisol Chem Urea nitrogen/Creatinine [Mass ratio] 9 mg/mg Low 10 - 20 Remisol Chem COAGULATIONOrdered By: Gogo Walters on 07-19-2023 aPTT Coag (PPP) [Time] 38.7 s High 25.1 - 36.5 second(s) [facility] Auto Coag Comment on above: Interpretive Data: [...] the same coagulation reagent and instrumentation as [facility]. Currently there are no coagulation studies available worldwide for children to 14 days, and no normal ranges. Heparin therapeutic range (represented by Anti-Factor Xa activity of 0.2 - 0.4 U/mL) corresponds to PTT of 56.6 - 109.0 sec. Fibrin D-dimer FEU (PPP) [Mass/Vol] ng/mL FEU Low 215 - 500 ng/mL FEU [facility] Auto Coag Comment on above: Interpretive Data: [...] [Relative time] 1.17 {INR} Invalid Interpretation Code [facility] Auto Coag Comment on above: Interpretive Data: I NR results are specifically intended to assess patients stabilized on long-term Anticoagulation therapy suggested INR s Less Intensive Anticoagulation 2.0 3.0 Conventional Range 3.0 4.5 PT Coag (PPP) [Time] 13.1 s High 9.4 - 1 2.5 second(s) [facility] Auto Coag Comment on above: Interpretive Data: [...] the same coagulation reagent and instrumentation as [facility]. Currently there are no coagulation studies available worldwide for children to 14 days, and no normal ranges. Consent for Treatmenton 06-27 Consent for Treatment [id number]#1 .00TIFF Normal [facility] D-Dimeron 07-19-2023 Fibrin D-dimer FEU (PPP) [Mass/Vol] <215 Low 215-500 [facility] Comment on above: Result Comment: [...] skin infectionsLiver cirrhosisPregnancy Performed By: #### 1 7958911, 4975497, 46114620, 83147847, 1372905, 43122667, 5595477 ####[facility] [address] [place] [address] Discharge Instructionson Discharge Instructions [id number]# 1.00TIFF Normal [facility] ED Clinical Summaryon 2023 ED Clinical Summary Normal Chavo vasquez [facility] ED Note-Physicianon 07-19-19 ED Note-Physician Normal [facility] Comment on above: Result Comment: Elec tronically Signed By: Ulisses Mckinney PA-C\.br\Date and Time Signed: 07/19/23 14:03 EDT\.br\Electronically Co-Signed By: Mary Jane Palm M.D.\.br\Date and Time Co-Signed: 07/19/23 19:21 EDT ED Patient Education Noteon 07-19-2023 ED Patient Education Note Normal [facility] ED Patient Summaryon 024 ED Patient Summary Normal [facility] HEMATOLOGYOrdered By: SYSTEM SYSTEM on [...] Remisol Heme Monitor Recordon 07-19-2023 Monitor Record [id number]# 1.00TIFF Normal [facility] PT & PTTon 07-19-2023 aPTT Coag (PPP) [Time] 38.7 second(s) High 25.1-36.5 [facility] Comment on above: Result Comment: [...] the same coagulation reagent and instrumentation as [facility]. Currently there are no coagulation studies available worldwide for children to 14 days, and no normal ranges. Heparin therapeutic range (represented by Anti-Factor Xa activity of 0.2 - 0.4 U/mL) corresponds to PTT of 56.6 - 109.0 sec. Performed By: #### 1 1673554, 8268331, 68829512, 54978909, 7240029, 76295589, 9846630 ####[facility] [address] [place] [address] INR Coag (PPP) [Relative time] 1.17 {INR} Invalid Interpretation Code [facility] Comment on above: Result Comment: INR results are specifically intended to assess patients stabilized on long-term Anticoagulation therapy suggested INR?s ?Less Intensive Anticoagulation? 2.0 ? 3.0Conventional Range 3.0 ? 4.5 Performed By: #### 1 3998509, 3094844, 92601156, 43245186, 3682757, 24223381, 1058067 ####[facility] [address] [place] [address] PT Coag (PPP) [Time] 13.1 second(s) High 9.4-12.5 [facility] Comment on above: Result Comment: [...] the same coagulation reagent and instrumentation as [facility]. Currently there are no coagulation studies available worldwide for children to 14 days, and no normal ranges. Performed By: #### 1 3714228, 3953532, 56060596, 23785341, 2809844, 56639834, 0169817 ####[facility] [address] [place] [address] SEROLOGYOrdered By: Brii Walters on 07-19-2023 Beta HCG ( test) Ql Negative (07/19/23 9:38 AM) Normal [facility] Man Sero Troponin 0 Hr.on 07-19-2023 Troponin I.cardiac [Mass/Vol] ng/mL Low 10.10-27.10 [facility] Comment on above: Result Comment: The 95% CI (Confidence Interval) PPV (Positive Predictive Value) for myocardial infarction in females is 38 pg/mL, in males 51 pg/mL. The results should be used in conjunction with clinical conditions of myocardial infarction.(Access High Sensitivity Troponin I Instructions For Use, [employer], November 2017) Performed By: #### 1 7592133, 7194771, 79040341, 82019943, 7524045, 50253291, 9108435 ####[facility] [address] [place] [address] XR Chest Single Viewon 07-18 XR Chest Single View Normal [facility] eGFRon 07-19-2023 eGFR 102 mL/min/1.73 m2 Normal >=59 [facility] Comment on above: Order Comment: Order added by Discern Expert. Performed By: #### 1 2429869, 1132671, 74760936, 79536188, 2258501, 87687596, 3173093 ####[facility] [address] [place] [address] ED Note-Physicianon 07-14-19 ED Note-Physician Normal [facility] Comment on above: Result Comment: Elec tronically Signed By: Siomara Nettles PA-C\.br\Date and Time Signed: 07/12/23 20:40 EDT\.br\Electronically Co-Signed By: Justo Arias DO\.br\Date and Time Co-Signed: 07/14/23 07:25 EDT Physician Orderon 07-14-2023 Physician Order [id number]#1 .00TIFF Normal [facility] XR Chest Single Viewon 07-12 XR Chest Single View Normal [facility] BMPon 07-12-2023 Anion gap [Moles/Vol] 14 mmol/L Normal 6-16 [facility] Comment on above: Performed By: #### 2 685206, 90207741, 36640699, 4119282, 7124158, 64271275 ####[facility] [address] [place] [address] Calcium [Mass/Vol] 10.1 mg/dL Normal 8.9-11.1 [facility] Comment on above: Performed By: #### 2 894342, 40094754, 38676696, 9706881, 2125210, 92122189 ####[facility] [address] [place] [address] Chloride [Moles/Vol] 101 mmol/L Normal 101-111 [facility] Comment on above: Performed By: #### 2 583896, 20764836, 23870417, 2947673, 6271590, 12490615 ####[facility] [address] [place] [address] CO2 [Moles/Vol] 24 mmol/L Normal 21-31 [facility] Comment on above: Performed By: #### 2 905292, 52523428, 34565832, 6075166, 0352765, 64589120 ####[facility] [address] [place] [address] Creatinine [Mass/Vol] 0.9 mg/dL Normal 0.5-1.3 [facility] Comment on above: Performed By: #### 2 205395, 07291693, 05611723, 7345068, 9757538, 67500277 ####[facility] [address] [place] [address] Glucose [Mass/Vol] 98 mg/dL Normal 55-199 [facility] Comment on above: Performed By: #### 2 987372, 36438879, 03118639, 2304884, 0442394, 10320673 ####[facility] [address] [place] [address] Potassium [Moles/Vol] 3.1 mmol/L Low 3.5-5.3 [facility] Comment on above: Performed By: #### 2 320649, 62078492, 87740244, 9112692, 7279933, 38707838 ####[facility] [address] [place] [address] Sodium [Moles/Vol] 136 mmol/L Normal 135-145 [facility] Comment on above: Performed By: #### 2 877587, 45405045, 54115218, 4035426, 4068721, 28132445 ####[address] [address] Urea nitrogen [Mass/Vol] 8 mg/dL Normal 5-21 [facility] Comment on above: Performed By: #### 2 176149, 15402933, 06003699, 0222058, 4509937, 68238937 ####[facility] [address] [place] [address] Urea nitrogen/Creatinine [Mass ratio] 9 No Units Low 10-20 [facility] Comment on above: Performed By: #### 2 556267, 31584999, 73716330, 6658976, 4179830, 19582908 ####[facility] [address] [place] [address] CBC w/ Auto Diffon 4 Basophils/100 WBC (Bld) 0.5 % Normal 0.0-2.0 F [facility] Comment on above: Performed By: #### 2 029209, 58156747, 71936577, 3283182, 8845494, 47874975 ####[address] [place] [address] Basophils/Leukocytes Auto (Bld) [Pure # fraction] 0.1 E9/L Normal 0.0-0.2 [facility] Comment on above: Performed By: #### 2 506794, 54657845, 48500853, 3274692, 2860605, 87334296 ####[address] [place] [address] Eosinophils (Bld) [#/Vol] 0.1 E9/L Normal 0.0-0.5 [facility] Comment on above: Performed By: #### 2 261339, 75059436, 78318038, 5865261, 3770088, 85431005 ####[address] [place] [address] Eosinophils/100 WBC (Bld) 0.4 % Normal 0.0-8.0 [facility] Comment on above: Performed By: #### 2 903573, 38743590, 02302387, 6960599, 5892027, 46727439 ####[address] [address] Erythrocyte distribution width (RBC) [Ratio] 13.0 % Normal 10.9-14.2 [facility] Comment on above: Performed By: #### 2 185677, 99888974, 52144499, 0642029, 6294701, 59416612 ####[address] [address] Hematocrit (Bld) [Volume fraction] 41.4 % Normal 34.0-46.0 [facility] Comment on above: Performed By: #### 2 198017, 00043289, 25574381, 5225221, 3302602, 99069583 ####[address] [place] [address] Hemoglobin (Bld) [Mass/Vol] 14.1 g/dL Normal 12.0-16.0 [facility] Comment on above: Performed By: #### 2 851623, 62565800, 85716178, 3139240, 1707847, 56778709 ####[address] [place] [address] Lymphocytes (Bld) [#/Vol] 3.3 E9/L Normal 1.0-4.0 [facility] Comment on above: Performed By: #### 2 799283, 94938356, 29684218, 7881297, 6905502, 81534352 ####[address] [address] Lymphocytes/100 WBC (Bld) 26.4 % Normal 14.0-50.0 [facility] Comment on above: Performed By: #### 2 260144, 43701285, 65977537, 8989062, 9215703, 26469157 ####[address] [address] MCH (RBC) [Entitic mass] 30.1 pg Normal 27.0-34.0 [facility] Comment on above: Performed By: #### 2 691353, 32414741, 29852184, 5803118, 8493046, 78173609 ####[address] [address] MCHC (RBC) [Mass/Vol] 34.1 g/dL Normal 31.4-36.0 [facility] Comment on above: Performed By: #### 2 335826, 82333052, 03736733, 3302898, 0396728, 62649480 ####[address] [address] MCV (RBC) [Entitic vol] 88.3 fL Normal 80.0-100.0 F [facility] Comment on above: Performed By: #### 2 698419, 67301290, 19630947, 7317774, 7541230, 30332162 ####[address] [address] Monocytes (Bld) [#/Vol] 0.8 E9/L Normal 0.2-1.0 F [facility] Comment on above: Performed By: #### 2 750174, 23324503, 70376182, 2506639, 6790378, 19132677 ####[address] [address] Neutrophils (Bld) [#/Vol] 8.4 E9/L High 2.0-7.5 [facility] Comment on above: Performed By: #### 2 349087, 22443710, 27225636, 3675168, 5002013, 46525061 ####[address] [address] Neutrophils/100 WBC (Bld) 66.6 % Normal 36.0-75.0 [facility] Comment on above: Performed By: #### 2 473161, 78922757, 84841877, 8856220, 1713833, 67069457 ####[address] [address] Platelet 446.0 E9/L Normal 150.0-500.0 [facility] Comment on above: Performed By: #### 2 968961, 75414356, 37952818, 7335860, 3720863, 97362775 ####[address] [address] Platelet mean volume (Bld) [Entitic vol] 6.7 fL Normal 6.4-10.8 [facility] Comment on above: Performed By: #### 2 159992, 40592754, 73983983, 9705138, 6894036, 33956289 ####[address] [address] RBC (Bld) [#/Vol] 4.7 E12/L Normal 4.3-5.9 [facility] Comment on above: Performed By: #### 2 236893, 68142031, 61379434, 4159800, 3804554, 85984559 ####[address] [address] WBC corrected for nucl RBC Auto (Bld) [#/Vol] 12.6 E9/L High 4.0-11.0 [facility] Comment on above: Performed By: #### 2 711850, 31075966, 75750994, 4256950, 2876791, 24877825 ####[facility] [address] [place] [address] CHEMISTRYOrdered By: SYSTEM SYSTEM on 07-12-2023 Anion [...] Sensitivity Troponin I Instructions For Use, [employer], November 2017) Urea nitrogen [Mass/Vol] 8 mg/dL Normal 5 - 21 mg/dL Remisol Chem Urea nitrogen/Creatinine [Mass ratio] 9 mg/mg Low 10 - 20 Remisol Chem COAGULATIONOrdered By: Azam Canas on 07-12-2023 aPTT Coag (PPP) [Time] 35.8 s Normal 25.1 - 36.5 second(s) [facility] Auto Coag Comment on above: Interpretive Data: [...] the same coagulation reagent and instrumentation as [facility]. Currently there are no coagulation studies available worldwide for children to 14 days, and no normal ranges. Heparin therapeutic range (represented by Anti-Factor Xa activity of 0.2 - 0.4 U/mL) corresponds to PTT of 56.6 - 109.0 sec. INR Coag (PPP) [Relative time] 1.18 {INR} Invalid Interpretation Code [facility] Auto Coag Comment on above: Interpretive Data: I NR results are specifically intended to assess patients stabilized on long-term Anticoagulation therapy suggested INR s Less Intensive Anticoagulation 2.0 3.0 Conventional Range 3.0 4.5 PT Coag (PPP) [Time] 13.2 s High 9.4 - 1 2.5 second(s) [facility] Auto Coag Comment on above: Interpretive Data: [...] the same coagulation reagent and instrumentation as [facility]. Currently there are no coagulation studies available worldwide for children to 14 days, and no normal ranges. Consent for Treatmenton 06-26 Consent for Treatment [id number]#1 .00TIFF Normal [facility] Discharge Instructionson Discharge Instructions [id number] 4030 [id number]# 1.00TIFF Normal [facility] ED Clinical Summaryon 2023 ED Clinical Summary Normal [facility] ED Patient Education Noteon 07-12-2023 ED Patient Education Note Normal [facility] ED Patient Summaryon 024 ED Patient Summary Normal [facility] HEMATOLOGYOrdered By: SYSTEM SYSTEM on [...] Magnesium [Mass/Vol] 2.0 mg/dL Normal 1.3-2.4 [facility] Comment on above: Performed By: #### 2 061935, 77945237, 37663480, 8820592, 9421972, 66108872 ####[facility] [address] [place] [address] Monitor Recordon 07-12-2023 Monitor Record [id number]# 1.00TIFF Normal [facility] PT & PTTon 07-12-2023 aPTT Coag (PPP) [Time] 35.8 second(s) Normal 25.1-36.5 [facility] Comment on above: Result Comment: [...] the same coagulation reagent and instrumentation as [facility]. Currently there are no coagulation studies available worldwide for children to 14 days, and no normal ranges. Heparin therapeutic range (represented by Anti-Factor Xa activity of 0.2 - 0.4 U/mL) corresponds to PTT of 56.6 - 109.0 sec. Performed By: #### 2 674812, 62915855, 95366670, 8108507, 4371955, 05225495 ####[facility] [address] [place] [address] INR Coag (PPP) [Relative time] 1.18 {INR} Invalid Interpretation Code [facility] Comment on above: Result Comment: INR results are specifically intended to assess patients stabilized on long-term Anticoagulation therapy suggested INR?s ?Less Intensive Anticoagulation? 2.0 ? 3.0Conventional Range 3.0 ? 4.5 Performed By: #### 2 322137, 60154867, 30553090, 2843417, 1555764, 65204516 ####[facility] [address] [place] [address] PT Coag (PPP) [Time] 13.2 second(s) High 9.4-12.5 [facility] Comment on above: Result Comment: [...] the same coagulation reagent and instrumentation as [facility]. Currently there are no coagulation studies available worldwide for children to 14 days, and no normal ranges. Performed By: #### 2 687360, 99546297, 15065389, 8177483, 6606226, 02105275 ####[facility] [address] [place] [address] Physician Orderon 07-12-2023 Physician Order [id number]# 1.00TIFF Normal [facility] Troponin 0 Hr.on 07-12-2023 Troponin I.cardiac [Mass/Vol] ng/mL Low 10.10-27.10 [facility] Comment on above: Result Comment: The 95% CI (Confidence Interval) PPV (Positive Predictive Value) for myocardial infarction in females is 38 pg/mL, in males 51 pg/mL. The results should be used in conjunction with clinical conditions of myocardial infarction.(Access High Sensitivity Troponin I Instructions For Use, [employer], November 2017) Performed By: #### 2 892949, 57115791, 39320365, 2925114, 5488786, 47184237 ####[facility] [address] [place] [address] eGFRon 07-12-2023 eGFR 89 mL/min/1.73 m2 Normal >=59 [facility] Comment on above: Order Comment: Order added by Discern Expert. Performed By: #### 2 724096, 42897143, 49568253, 6619547, 0423935, 31474358 ####[facility] [address] [place] [address] Consenton 07-10-2023 Consent [id number]#1 .00TIFF Normal [facility] C Urineon 07-09-2023 Bacteria identified Cx Nom (U) Normal [facility] Comment on above: Performed By: #### 2 233899 ####[facility] [address] [place] [address] Family Medicine Office/Clini c Noteon 07-09-2023 Family Medicine Office/Clinic Note Normal [facility] Comment on above: Result Comment: Elec tronically Signed By: Ravinder LUKE, Amos Charles\.br\Date and Time Signed: 07/09/23 17:05 EDT Patient Educationon 07-09-19 Patient Education Normal [facility] ED Note-Physicianon 07-08-19 ED Note-Physician Normal [facility] Comment on above: Result Comment: Elec tronically Signed By: Sy Pickard PA-C\.br\Date and Time Signed: 07/07/23 14:17 EDT\.br\Electronically Co-Signed By: Justo Arias DO\.br\Date and Time Co-Signed: 07/08/23 06:57 EDT Nonvisit Note - PTon 024 Nonvisit Note - PT Pt did not show this date; Pt will have to return to physician for new script to return to PT. Normal [facility] Ambulatory Visit Summaryon 0 07-07-2023 Ambulatory Visit Summary Normal [facility] B hCG Qualon 07-07-2023 Beta HCG ( test) Ql Negative Normal [facility] Comment on above: Performed By: #### 2 8436418 ####[facility] [address] [place] [address] BMPon 07-07-2023 Anion gap [Moles/Vol] 10 mmol/L Normal 6-16 [facility] Comment on above: Performed By: #### 2 824906, 1804656, 8710502, 1218750, 01852764 ####[facility] [address] [place] [address] Calcium [Mass/Vol] 9.7 mg/dL Normal 8.9-11.1 [facility] Comment on above: Performed By: #### 2 576380, 9051414, 7030146, 5931269, 39639507 ####[facility] [address] [place] [address] Chloride [Moles/Vol] 106 mmol/L Normal 101-111 [facility] Comment on above: Performed By: #### 2 341114, 6106738, 8080919, 0803620, 69205449 ####[facility] [address] [place] [address] CO2 [Moles/Vol] 29 mmol/L Normal 21-31 [facility] Comment on above: Performed By: #### 2 213532, 1762938, 0521174, 1536675, 87718936 ####[facility] [address] [place] [address] Creatinine [Mass/Vol] 0.8 mg/dL Normal 0.5-1.3 [facility] Comment on above: Performed By: #### 2 334786, 1876895, 0031684, 4085480, 94523287 ####[facility] [address] [place] [address] Glucose [Mass/Vol] 102 mg/dL Normal 55-199 [facility] Comment on above: Performed By: #### 2 780841, 9757278, 1473300, 1507640, 53368235 ####[facility] [address] [place] [address] Potassium [Moles/Vol] 3.8 mmol/L Normal 3.5-5.3 [facility] Comment on above: Performed By: #### 2 338620, 6586091, 7318230, 7174794, 79136978 ####[facility] [address] [place] [address] Sodium [Moles/Vol] 141 mmol/L Normal 135-145 [facility] Comment on above: Performed By: #### 2 724077, 2552432, 4137638, 4719250, 23804984 ####[facility] [address] [place] [address] Urea nitrogen [Mass/Vol] 8 mg/dL Normal 5-21 [facility] Comment on above: Performed By: #### 2 148409, 8926709, 5128389, 3062161, 14600154 ####[facility] [address] [place] [address] Urea nitrogen/Creatinine [Mass ratio] 10 No Units Normal 10-20 [facility] Comment on above: Performed By: #### 2 011514, 8304691, 7729623, 7581708, 02478727 ####[address] [address] CBC w/ Auto Diffon 4 Basophils/100 WBC (Bld) 0.6 % Normal 0.0-2.0 F [facility] Comment on above: Performed By: #### 2 673321, 3914971, 5979497, 8841580, 90499484 ####[address] [address] Basophils/Leukocytes Auto (Bld) [Pure # fraction] 0.1 E9/L Normal 0.0-0.2 [facility] Comment on above: Performed By: #### 2 706788, 0652165, 9706525, 0289097, 84604707 ####[address] [address] Eosinophils (Bld) [#/Vol] 0.2 E9/L Normal 0.0-0.5 [facility] Comment on above: Performed By: #### 2 461847, 6814135, 0667659, 7530215, 59737350 ####[address] [address] Eosinophils/100 WBC (Bld) 2.2 % Normal 0.0-8.0 [facility] Comment on above: Performed By: #### 2 248982, 0772758, 8426702, 2779635, 76366479 ####[address] [address] Erythrocyte distribution width (RBC) [Ratio] 13.1 % Normal 10.9-14.2 [facility] Comment on above: Performed By: #### 2 447394, 2610305, 1195997, 6182197, 22380396 ####[address] [place] [address] Hematocrit (Bld) [Volume fraction] 44.2 % Normal 34.0-46.0 [facility] Comment on above: Performed By: #### 2 970214, 7379799, 0909839, 9637754, 98452788 ####[address] [address] Hemoglobin (Bld) [Mass/Vol] 14.6 g/dL Normal 12.0-16.0 [facility] Comment on above: Performed By: #### 2 421145, 5257748, 7835515, 7881830, 96422780 ####[address] [address] Lymphocytes (Bld) [#/Vol] 2.2 E9/L Normal 1.0-4.0 [facility] Comment on above: Performed By: #### 2 845307, 0978951, 1547263, 9598091, 07441021 ####[address] [address] Lymphocytes/100 WBC (Bld) 26.0 % Normal 14.0-50.0 [facility] Comment on above: Performed By: #### 2 920023, 5263352, 5492701, 5414925, 17998147 ####[address] [address] MCH (RBC) [Entitic mass] 30.1 pg Normal 27.0-34.0 [facility] Comment on above: Performed By: #### 2 422677, 3856055, 2671313, 5132779, 19764043 ####[address] [address] MCHC (RBC) [Mass/Vol] 33.1 g/dL Normal 31.4-36.0 [facility] Comment on above: Performed By: #### 2 269773, 1643509, 9461273, 2723750, 01252369 ####[address] [address] MCV (RBC) [Entitic vol] 90.7 fL Normal 80.0-100.0 F [facility] Comment on above: Performed By: #### 2 600430, 3188498, 5367093, 1381025, 35170164 ####[facility] [address] [place] [address] Monocytes (Bld) [#/Vol] 0.5 E9/L Normal 0.2-1.0 [facility] Comment on above: Performed By: #### 2 769021, 5918412, 4036284, 1778546, 08438076 ####[address] [place] [address] Neutrophils (Bld) [#/Vol] 5.6 E9/L Normal 2.0-7.5 [facility] Comment on above: Performed By: #### 2 066793, 0417781, 1902252, 6313747, 92430490 ####[address] [address] Neutrophils/100 WBC (Bld) 65.3 % Normal 36.0-75.0 [facility] Comment on above: Performed By: #### 2 002468, 6764658, 1330606, 8951017, 97028648 ####[address] [place] [address] Platelet 422.0 E9/L Normal 150.0-500.0 [facility] Comment on above: Performed By: #### 2 808038, 8529399, 3649472, 7875289, 38147149 ####[address] [place] [address] Platelet mean volume (Bld) [Entitic vol] 7.1 fL Normal 6.4-10.8 [facility] Comment on above: Performed By: #### 2 832069, 6496176, 8989799, 9046637, 22091599 ####[address] [address] RBC (Bld) [#/Vol] 4.9 E12/L Normal 4.3-5.9 [facility] Comment on above: Performed By: #### 2 045782, 6056378, 1077844, 1013980, 92953008 ####[facility] [address] [place] [address] WBC corrected for nucl RBC Auto (Bld) [#/Vol] 8.6 E9/L Normal 4.0-11.0 [facility] Comment on above: Performed By: #### 2 591739, 6613569, 3021146, 8013697, 94392478 ####[facility] [address] [place] [address] CHEMISTRYOrdered By: SYSTEM SYSTEM on 07-07-2023 Albumin [...] Treatmenton 06-26 Consent for Treatment [id number]#1 .00TIFF Normal [facility] Discharge Instructionson Discharge Instructions [id number] 4030 [id number]# 1.00TIFF Normal [facility] ED Clinical Summaryon 2023 ED Clinical Summary Normal [facility] ED Patient Education Noteon 07-07-2023 ED Patient Education Note Normal [facility] [facility] 024 ED Patient Summary Normal [facility] Family Medicine Office/Clini c Noteon 07-07-2023 Family Medicine Office/Clinic Note Normal [facility] Comment on above: Result Comment: [...] 07-07-2023 Albumin [Mass/Vol] 4.8 g/dL Normal 3.3-5.0 [facility] Comment on above: Performed By: #### 2 679099, 0571497, 8590534, 5626347, 02551384 ####[facility] [address] [place] [address] Albumin/Globulin (S) [Mass conc ratio] 1.7 Normal 1.1-2.2 [facility] Comment on above: Performed By: #### 2 975637, 5702502, 2664342, 8893097, 48820548 ####[facility] [address] [place] [address] ALP [Catalytic activity/Vol] 109 Int._Unit/L High 21-98 [facility] Comment on above: Performed By: #### 2 961342, 8907816, 1381449, 2967813, 84734562 ####[facility] [address] [place] [address] ALT No additional P-5'-P [Catalytic activity/Vol] 15 Int._Unit/L Normal 6-46 [facility] Comment on above: Performed By: #### 2 353766, 0155467, 1007027, 8132405, 00849912 ####[facility] [address] [place] [address] AST [Catalytic activity/Vol] 16 Int._Unit/L Normal 5-43 [facility] Comment on above: Performed By: #### 2 349182, 7104279, 3179989, 4189407, 41122995 ####[facility] [address] [place] [address] Bilirubin [Mass/Vol] 0.3 mg/dL Normal 0.0-1.1 [facility] Comment on above: Performed By: #### 2 384784, 8186607, 3179639, 3244685, 19918849 ####[facility] [address] [place] [address] Bilirubin.direct [Mass/Vol] 0.1 mg/dL Normal 0.0-0.4 [facility] Comment on above: Performed By: #### 2 366367, 8028625, 6731751, 7898011, 31482961 ####[address] [address] Bilirubin.indirect [Mass or moles/Vol] 0.2 mg/dL Normal 0.1-0.9 [facility] Comment on above: Performed By: #### 2 197110, 8791706, 8456171, 1413297, 78344677 ####[address] [address] Globulin (S) [Mass/Vol] 2.8 g/dL Normal 1.4-4.0 [facility] Comment on above: Performed By: #### 2 599789, 9353459, 6931396, 3351956, 62558032 ####[address] [address] Protein [Mass/Vol] 7.6 g/dL Normal 6.0-7.8 [facility] Comment on above: Performed By: #### 2 331657, 9749925, 9483916, 2836852, 70328263 ####[address] [address] Lipase Levelon 07-07-2023 Lipase [Catalytic activity/Vol] 33 U/L Normal 13-58 [facility] Comment on above: Performed By: #### 2 105194, 9895392, 7797145, 6814118, 77135347 ####[facility] [address] [place] [address] Patient Educationon 07-07-19 Patient Education Normal [facility] Prescriptions/Work Noteson 0 07-07-2023 Prescriptions/Work Notes [id number]# 1.00TIFF Normal [facility] SEROLOGYOrdered By: Brii Walters on 07-07-2023 Beta HCG ( test) Ql Negative (07/07/23 11:20 AM) Normal [facility] Man Sero UA With Cult Reflexon 2023 Bacteria LM Ql (Urine sed) TRACE Normal Trace [facility] Comment on above: Performed By: #### 1 7829531 ####[facility] [address] [place] [address] Bilirubin Ql (U) Negative Normal Negative [facility] Comment on above: Performed By: #### 1 9924731 ####[facility] [address] [place] [address] Clarity (U) CLEAR Normal Clear [facility] Comment on above: Performed By: #### 1 6670609 ####[facility] [address] [place] [address] Color (U) YELLOW Normal Yellow [facility] Comment on above: Performed By: #### 1 0852471 ####[facility] [address] [place] [address] Epithelial cells.squamous LM.HPF (Urine sed) [#/Area] 0-2 Normal 0-2 [facility] Comment on above: Performed By: #### 1 1066424 ####[facility] [address] [place] [address] Glucose Test strip (U) [Mass/Vol] Negative Normal Negative [facility] Comment on above: Performed By: #### 1 4799196 ####[facility] [address] [place] [address] Hemoglobin Ql (U) Negative Normal Negative [facility] Comment on above: Performed By: #### 1 4426818 ####[facility] [address] [place] [address] Ketones (U) [Mass/Vol] Negative Normal Negative [facility] Comment on above: Performed By: #### 1 0117245 ####[address] [place] [address] [place].plasma/[place]. RBC (Bld) [Mass ratio] 0-3 Normal 0-3 [facility] Comment on above: Performed By: #### 1 2568845 ####[address] [address] Mucus Ql (Urine sed) TRACE Normal [facility] Comment on above: Performed By: #### 1 0963723 ####[address] [address] Nitrite Ql (U) Negative Normal Negative [facility] Comment on above: Performed By: #### 1 4400921 ####[address] [address] pH (U) 7.0 [pH] Invalid Interpretation Code 5.0-9.0 [facility] Comment on above: Performed By: #### 1 0792210 ####[address] [address] Protein (U) [Mass/Vol] Negative Normal Negative [facility] Comment on above: Performed By: #### 1 4324661 ####[address] [address] Specific gravity (U) [Rel density] 1.015 Invalid Interpretation Code 1.005-1.030 [facility] Comment on above: Performed By: #### 1 8319597 ####[address] [address] Type of Urine collection method Clean Catch Normal [facility] Comment on above: Performed By: #### 1 7398345 ####[address] [address] Urobilinogen Qn (U) 0.2 {Jane'U}/dL Normal 0.0-1.0 [facility] Comment on above: Performed By: #### 1 7619838 ####[address] [address] WBC Auto Ql (U) Negative Normal Negative [facility] Comment on above: Performed By: #### 1 1980031 ####[facility] [address] [place] [address] WBC LM.HPF (Urine sed) [#/Area] 0-5 Normal 0-5 [facility] Comment on above: Performed By: #### 1 5900458 ####[facility] [address] [place] [address] URINALYSISOrdered By: Michael Walters on 07-07-2023 Bacteria [...] AM) Normal Negative [facility] UA Auto SS [place].plasma/[place]. RBC (Bld) [Mass ratio] 0-3 /HPF Normal [...] AM) Invalid Interpretation Code 1.005 - 1.030 [facility] UA Auto SS UA Spec Desc Clean Catch (07/07/23 11:26 AM) Normal [facility] UA Auto SS Urobilinogen Qn (U) 0.0926496 {Jane'U}/dL Normal 0.0 - 1.0 EU/dL [facility] UA Auto SS WBC Auto Ql (U) Negative (07/07/23 11:26 AM) Normal Negative [facility] UA Auto SS WBC LM.HPF (Urine sed) [#/Area] 0-5 /HPF Normal 0-5/HPF [facility] UA Auto SS XR Abdomen 1 Viewon 07-07-19 XR Abdomen 1 View Normal [facility] eGFRon 07-07-2023 eGFR 102 mL/min/1.73 m2 Normal >=59 [facility] Comment on above: Order Comment: Order added by Discern Expert. Performed By: #### 2 953740, 1353233, 3618996, 0295098, 29602321 ####[facility] [address] [place] [address] BMPon 06-29-2023 Anion gap [Moles/Vol] 11 mmol/L Normal 6-16 [facility] Comment on above: Performed By: #### 1 2824942, 6311611, 45586323, 79217976, 1659137 ####[facility] [address] [place] [address] Calcium [Mass/Vol] 9.4 mg/dL Normal 8.9-11.1 [facility] Comment on above: Performed By: #### 1 1260793, 1820631, 84216818, 58217202, 3424344 ####[facility] [address] [place] [address] Chloride [Moles/Vol] 104 mmol/L Normal 101-111 [facility] Comment on above: Performed By: #### 1 5491838, 6850267, 23224242, 25708478, 6331555 ####[facility] [address] [place] [address] CO2 [Moles/Vol] 27 mmol/L Normal 21-31 [facility] Comment on above: Performed By: #### 1 1287833, 8306023, 13217696, 70358013, 8703797 ####[facility] [address] [place] [address] Creatinine [Mass/Vol] 0.9 mg/dL Normal 0.5-1.3 [facility] Comment on above: Performed By: #### 1 4053245, 9680228, 75696067, 46057636, 6762872 ####[facility] [address] [place] [address] Glucose [Mass/Vol] 109 mg/dL Normal 55-199 [facility] Comment on above: Performed By: #### 1 5353291, 1193278, 65197730, 47519706, 8871670 ####[facility] [address] [place] [address] Potassium [Moles/Vol] 3.5 mmol/L Normal 3.5-5.3 [facility] Comment on above: Performed By: #### 1 2492043, 0572898, 78659445, 66981063, 3542644 ####[facility] [address] [place] [address] Sodium [Moles/Vol] 138 mmol/L Normal 135-145 [facility] Comment on above: Performed By: #### 1 0988716, 9102648, 90614518, 80218530, 0532171 ####[facility] [address] [place] [address] Urea nitrogen [Mass/Vol] 9 mg/dL Normal 5-21 [facility] Comment on above: Performed By: #### 1 5405190, 8292696, 27123741, 09099512, 1188816 ####[facility] [address] [place] [address] Urea nitrogen/Creatinine [Mass ratio] 10 No Units Normal 10-20 [facility] Comment on above: Performed By: #### 1 6213841, 2699624, 02263207, 18157029, 1588972 ####[address] [address] CBC w/ Auto Diffon 4 Basophils/100 WBC (Bld) 0.4 % Normal 0.0-2.0 [facility] Comment on above: Performed By: #### 1 6253910, 7577939, 84680986, 59912535, 7973614 ####[address] [address] Basophils/Leukocytes Auto (Bld) [Pure # fraction] 0.0 E9/L Normal 0.0-0.2 [facility] Comment on above: Performed By: #### 1 5983238, 6301844, 65719329, 46572213, 3094633 ####[address] [address] Eosinophils (Bld) [#/Vol] 0.0 E9/L Normal 0.0-0.5 [facility] Comment on above: Performed By: #### 1 5149287, 9395474, 15557613, 50449716, 3131399 ####[address] [address] Eosinophils/100 WBC (Bld) 0.3 % Normal 0.0-8.0 [facility] Comment on above: Performed By: #### 1 2465742, 4064121, 14782730, 53959042, 2502601 ####[address] [address] Erythrocyte distribution width (RBC) [Ratio] 13.1 % Normal 10.9-14.2 [facility] Comment on above: Performed By: #### 1 4282262, 6335928, 37877324, 16157231, 2834069 ####[address] [address] Hematocrit (Bld) [Volume fraction] 39.8 % Normal 34.0-46.0 [facility] Comment on above: Performed By: #### 1 8147092, 8848938, 55448294, 18951971, 8521794 ####[facility] [address] [place] [address] Hemoglobin (Bld) [Mass/Vol] 13.2 g/dL Normal 12.0-16.0 [facility] Comment on above: Performed By: #### 1 3808262, 5080664, 97311789, 79356114, 0159787 ####[address] [address] Lymphocytes (Bld) [#/Vol] 1.6 E9/L Normal 1.0-4.0 [facility] Comment on above: Performed By: #### 1 7400241, 5674563, 90908736, 72663567, 4463099 ####[address] [address] Lymphocytes/100 WBC (Bld) 11.8 % Low 14.0-50.0 [facility] Comment on above: Performed By: #### 1 3988114, 8923436, 63098419, 15851379, 4757620 ####[address] [address] MCH (RBC) [Entitic mass] 29.7 pg Normal 27.0-34.0 [facility] Comment on above: Performed By: #### 1 5033925, 3365602, 66953814, 50368522, 1281205 ####[address] [place] [address] MCHC (RBC) [Mass/Vol] 33.1 g/dL Normal 31.4-36.0 [facility] Comment on above: Performed By: #### 1 7163244, 7328793, 06113716, 36437742, 3230909 ####[address] [place] [address] MCV (RBC) [Entitic vol] 89.7 fL Normal 80.0-100.0 [facility] Comment on above: Performed By: #### 1 2334004, 6059944, 02189580, 66021871, 4685905 ####[facility] [address] [place] [address] Monocytes (Bld) [#/Vol] 0.5 E9/L Normal 0.2-1.0 [facility] Comment on above: Performed By: #### 1 4018969, 9483686, 24564300, 22526655, 2587874 ####[facility] [address] [place] [address] Neutrophils (Bld) [#/Vol] 11.3 E9/L High 2.0-7.5 [facility] Comment on above: Performed By: #### 1 7803181, 7706260, 34458736, 94192237, 2875159 ####[address] [address] Neutrophils/100 WBC (Bld) 83.8 % High 36.0-75.0 [facility] Comment on above: Performed By: #### 1 6161635, 0018714, 89278094, 26579045, 2289665 ####[address] [address] Platelet 418.0 E9/L Normal 150.0-500.0 [facility] Comment on above: Performed By: #### 1 8018384, 9922931, 02409742, 73845059, 7054922 ####[facility] [address] [place] [address] Platelet mean volume (Bld) [Entitic vol] 7.0 fL Normal 6.4-10.8 [facility] Comment on above: Performed By: #### 1 6530673, 8461586, 01691302, 93423451, 7190107 ####[facility] [address] [place] [address] RBC (Bld) [#/Vol] 4.4 E12/L Normal 4.3-5.9 [facility] Comment on above: Performed By: #### 1 9864852, 2676770, 24894718, 11428328, 2489795 ####[facility] [address] [place] [address] WBC corrected for nucl RBC Auto (Bld) [#/Vol] 13.5 E9/L High 4.0-11.0 [facility] Comment on above: Performed By: #### 1 1858177, 2218966, 49177098, 13335407, 0765632 ####[facility] [address] [place] [address] CHEMISTRYOrdered By: SYSTEM SYSTEM on 06-29-2023 Anion [...] 34.2 s Normal 25.1 - 36.5 second(s) [facility] Auto Coag Comment on above: Interpretive Data: [...] the same coagulation reagent and instrumentation as [facility]. Currently there are no coagulation studies available worldwide for children to 14 days, and no normal ranges. Heparin therapeutic range (represented by Anti-Factor Xa activity of 0.2 - 0.4 U/mL) corresponds to PTT of 56.6 - 109.0 sec. INR Coag (PPP) [Relative time] 1.11 {INR} Invalid Interpretation Code [facility] Auto Coag Comment on above: Interpretive Data: I NR results are specifically intended to assess patients stabilized on long-term Anticoagulation therapy suggested INR s Less Intensive Anticoagulation 2.0 3.0 Conventional Range 3.0 4.5 PT Coag (PPP) [Time] 12.5 s Normal 9.4 - 1 2.5 second(s) [facility] Auto Coag Comment on above: Interpretive Data: [...] the same coagulation reagent and instrumentation as [facility]. Currently there are no coagulation studies available worldwide for children to 14 days, and no normal ranges. Consent for Treatmenton Consent for Treatment [id number]#1 .00TIFF Normal [facility] Discharge Instructionson Discharge Instructions [id number]# 1.00TIFF Normal [facility] ED Clinical Summaryon 2023 ED Clinical Summary Normal [facility] ED Note-Physicianon 06-29-19 ED Note-Physician Normal [facility] Comment on above: Result Comment: Elec tronically Signed By: Suman DC, Guille\.br\Date and Time Signed: 06/29/23 08:41 EST ED Patient Education Noteon 06-29-2023 ED Patient Education Note Normal [facility] ED Patient Summaryon 024 ED Patient Summary Normal [facility] HEMATOLOGYOrdered By: SYSTEM SYSTEM on [...] 4 Influenzae A Ag Negative Normal Negative [facility] Comment on above: Performed By: #### 1 9513120, [id number] ####[facility] [address] [place] [address] Influenzae B Ag Negative Normal Negative [facility] Comment on above: Result Comment: Test sensitivity and specificity vary for age group, specimen type, antigen types, and prevalence of disease. Test results must be evaluated in conjunction with other clinical data available to the physician. Individuals who received nasally administered Influenza A vaccine may have positive test results up to 3 days after vaccination. Performed By: #### 1 5225010, [id number] ####[facility] [address] [place] [address] MICRO OTHER TESTSOrdered By: Sharon Walters on 06-29-2023 Influenzae A Ag Negative (06/29/23 6:41 AM) Normal Negative [facility] Sero Influenzae B Ag Negative 1 (06/29/23 6:41 AM) Normal Negative [facility] Sero Comment on above: Interpretive [...] NEG [place]l [place] (06/29/23 6:41 AM) Normal [facility] Sero Rapid COV Int POS [place]l [place] (06/29/23 6:41 AM) Normal [facility] Sero SARS-CoV+SARS-CoV-2 (COVID-19) Ag IA.rapid Ql (Resp) Not Detected 6 (06/29/23 6:41 AM) Normal Not Detected [facility] Sero Comment on above: Interpretive Data: T he M-DISC Veritor System for Rapid Detection of SARS-CoV-2 [...] Coag (PPP) [Time] 34.2 second(s) Normal 25.1-36.5 [facility] Comment on above: Result Comment: [...] the same coagulation reagent and instrumentation as [facility]. Currently there are no coagulation studies available worldwide for children to 14 days, and no normal ranges. Heparin therapeutic range (represented by Anti-Factor Xa activity of 0.2 - 0.4 U/mL) corresponds to PTT of 56.6 - 109.0 sec. Performed By: #### 1 6451782, 8158500, 02568315, 93552602, 2427572 ####[facility] [address] [place] [address] INR Coag (PPP) [Relative time] 1.11 {INR} Invalid Interpretation Code [facility] Comment on above: Result Comment: INR results are specifically intended to assess patients stabilized on long-term Anticoagulation therapy suggested INR?s ?Less Intensive Anticoagulation? 2.0 ? 3.0Conventional Range 3.0 ? 4.5 Performed By: #### 1 8823107, 1164455, 63940584, 68551462, 7852619 ####[facility] [address] [place] [address] PT Coag (PPP) [Time] 12.5 second(s) Normal 9.4-12.5 [facility] Comment on above: Result Comment: [...] the same coagulation reagent and instrumentation as [facility]. Currently there are no coagulation studies available worldwide for children to 14 days, and no normal ranges. Performed By: #### 1 7088180, 8879572, 66354469, 96179948, 4375640 ####[address] [place] [address] Rapid COVID Antigen ([facility])on 06-29-2023 Rapid COV Int NEG [place]l [place] Normal [facility] Comment on above: Performed By: #### 1 0518914, [id number] ####[address] [place] [address] Rapid COV Int POS Ctl [place] Normal [facility] Comment on above: Performed By: #### 1 9325830, [id number] ####[address] [place] [address] SARS-CoV+SARS-CoV-2 (COVID-19) Ag IA.rapid Ql (Resp) Not detected Normal Not Detected [facility] Comment on above: Result Comment: [...] or revoked sooner. Performed By: #### 1 3654364, [id number] ####[facility] [address] [place] [address] Troponin 0 Hr.on 06-29-2023 Troponin I.cardiac [Mass/Vol] ng/mL Low 10.10-27.10 [facility] Comment on above: Result Comment: The 95% CI (Confidence Interval) PPV (Positive Predictive Value) for myocardial infarction in females is 38 pg/mL, in males 51 pg/mL. The results should be used in conjunction with clinical conditions of myocardial infarction.(Access High Sensitivity Troponin I Instructions For Use, Tegan Sammie, November 2017) Performed By: #### 1 4898583, 0880797, 37358463, 63556661, 0396026 ####[facility] [address] [place] [address] XR Chest Single Viewon 06-28 XR Chest Single View Normal [facility] eGFRon 06-29-2023 eGFR 89 mL/min/1.73 m2 Normal >=59 [facility] Comment on above: Order Comment: Order added by Discern Expert. Performed By: #### 1 3111996, 9830232, 55636439, 50456844, 1317241 ####[facility] [address] [place] [address] Nonvisit Note - PTon 024 Nonvisit Note - PT Pt. did not show for PT appointment on 06/18/23. Red slip submitted per attendance policy. Normal [facility] Nonvisit Note - PTon 024 Nonvisit Note - PT Pt did not show up for her outpatient PT appt this date; attempted to call pt to remind her of her next appt and the department Attendance Policy re: no shows, but her voicemail box was full and was unable to leave a message. Normal [facility] ED Note-Physicianon 06-16-19 ED Note-Physician [facility] Comment on above: Result Comment: Elec tronically Signed By: Daxa Donis PA-C\.br\Date and Time Signed: 06/14/23 09:16 EST\.br\Electronically Co-Signed By: Justo Arias DO\.br\Date and Time Co-Signed: 06/16/23 07:06 EST Consent for Treatmenton 05-29 Consent for Treatment [id number]#1 .00TIFF [facility] Discharge Instructionson Discharge Instructions [id number]#1 .00TIFF Normal [facility] ED Clinical Summaryon 2023 ED Clinical Summary Normal [facility] ED Patient Education Noteon 06-14-2023 ED Patient Education Note Normal [facility] ED Patient Summaryon 024 ED Patient Summary Normal [facility] Nonvisit Note - PTon 024 Nonvisit Note - PT Patient has strep throat. 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 Normal [facility] B hCG Qualon 05-31-2023 Beta HCG ( test) Ql Negative Normal [facility] Comment on above: Performed By: #### 1 1263964, 94594250, 7364492, 3708183, 2882217, 2391976 ####[facility] [address] [place] [address] BMPon 05-31-2023 Anion gap [Moles/Vol] 13 mmol/L Normal 6-16 [facility] Comment on above: Performed By: #### 1 7334750, 37674491, 7236733, 8688762, 0959312, 4468400 ####[facility] [facility] [address] [place] [address] BUN/Creat Ratio 12 No Units Normal 10-20 [facility] Comment on above: Performed By: #### 1 8628508, 53059626, 0963402, 5431653, 8927644, 0399567 ####[facility] [address] [place] [address] Calcium [Mass/Vol] 9.2 mg/dL Normal 8.9-11.1 [facility] Comment on above: Performed By: #### 1 8485341, 22840303, 2306560, 8936301, 7846230, 8251520 ####[facility] [address] [place] [address] Chloride [Moles/Vol] 103 mmol/L Normal 101-111 [facility] Comment on above: Performed By: #### 1 5713047, 35927689, 2386128, 2744185, 0610774, 9252385 ####[facility] [address] [place] [address] CO2 [Moles/Vol] 26 mmol/L Normal 21-31 [facility] Comment on above: Performed By: #### 1 3074768, 74719807, 1906180, 4998851, 8902339, 5629895 ####[facility] [address] [place] [address] Creatinine [Mass/Vol] 0.8 mg/dL Normal 0.5-1.3 [facility] Comment on above: Performed By: #### 1 0919667, 55162181, 3951056, 7959473, 7277866, 0337397 ####[facility] [address] [place] [address] Glucose [Mass/Vol] 104 mg/dL Normal 55-199 [facility] Comment on above: Performed By: #### 1 8324721, 57146813, 0499150, 6613163, 8713068, 4182139 ####[facility] [address] [place] [address] Potassium [Moles/Vol] 3.8 mmol/L Normal 3.5-5.3 [facility] Comment on above: Performed By: #### 1 6025560, 65279896, 2133458, 8731817, 9282516, 2245271 ####[facility] [address] [place] [address] Sodium [Moles/Vol] 138 mmol/L Normal 135-145 [facility] Comment on above: Performed By: #### 1 0390429, 95218926, 5774890, 5549750, 2681484, 1588886 ####[facility] [address] [place] [address] Urea nitrogen [Mass/Vol] 10 mg/dL Normal 5-21 [facility] Comment on above: Performed By: #### 1 1137764, 13426888, 3835946, 0156170, 3779190, 5257080 ####[address] [address] CBC w/ Auto Diffon 4 Basophil Absolute 0.0 E9/L Normal 0.0-0.2 [facility] Comment on above: Performed By: #### 1 3545510, 66091839, 1051321, 2608888, 1179848, 0493230 ####[address] [address] Basophils/100 WBC (Bld) 0.5 % Normal 0.0-2.0 [facility] Comment on above: Performed By: #### 1 2811989, 97204964, 8035759, 2525432, 8941964, 5065024 ####[address] [address] Eos Absolute 0.1 E9/L Normal 0.0-0.5 [facility] Comment on above: Performed By: #### 1 9834842, 67324867, 3690834, 2840136, 3322297, 1157759 ####[address] [address] Eosinophils/100 WBC (Bld) 0.7 % Normal 0.0-8.0 [facility] Comment on above: Performed By: #### 1 9050278, 76018868, 6237437, 7485092, 7437029, 0057498 ####[address] [address] Erythrocyte distribution width (RBC) [Ratio] 13.2 % Normal 10.9-14.2 [facility] Comment on above: Performed By: #### 1 2193596, 49353396, 6583568, 8142395, 0983126, 6154910 ####[address] [address] Hematocrit (Bld) [Volume fraction] 42.0 % Normal 34.0-46.0 [facility] Comment on above: Performed By: #### 1 4289577, 51602374, 4203864, 5464256, 5643571, 2199430 ####[address] [address] Hemoglobin (Bld) [Mass/Vol] 13.8 g/dL Normal 12.0-16.0 [facility] Comment on above: Performed By: #### 1 4027366, 48249301, 5656749, 4325969, 1994646, 2362714 ####[address] [address] Lymph Absolute 1.7 E9/L Normal 1.0-4.0 [facility] Comment on above: Performed By: #### 1 7803871, 98594082, 9415210, 1780166, 2011684, 4429365 ####[address] [address] Lymphocytes/100 WBC (Bld) 16.6 % Normal 14.0-50.0 [facility] Comment on above: Performed By: #### 1 1342730, 99128884, 2844328, 5830923, 4187300, 0413480 ####[address] [address] MCH (RBC) [Entitic mass] 30.2 pg Normal 27.0-34.0 [facility] Comment on above: Performed By: #### 1 1428355, 55569720, 5231640, 1779960, 2958715, 8587907 ####[address] [address] MCHC (RBC) [Mass/Vol] 33.2 g/dL Normal 31.4-36.0 [facility] Comment on above: Performed By: #### 1 0818206, 89632638, 2302294, 6319330, 0197343, 8864712 ####[address] [address] MCV (RBC) [Entitic vol] 91.1 fL Normal 80.0-100.0 [facility] Comment on above: Performed By: #### 1 1060314, 35934830, 9821056, 2758943, 7087415, 8507058 ####[address] [place] [address] Wilkes Absolute 0.4 E9/L Normal 0.2-1.0 [facility] Comment on above: Performed By: #### 1 6639671, 19144163, 2285771, 3845661, 7270017, 8632414 ####[address] [address] Monocytes/100 WBC (Bld) 3.5 % Low 4.0-14.0 [facility] Comment on above: Performed By: #### 1 8123376, 93589331, 4386268, 1174014, 2048388, 0799279 ####[address] [address] Neutro Absolute 8.2 E9/L High 2.0-7.5 [facility] Comment on above: Performed By: #### 1 2617277, 68249413, 1486765, 6811126, 3318106, 3955407 ####[address] [address] Neutro Auto 78.7 % High 36.0-75.0 [facility] Comment on above: Performed By: #### 1 1637067, 32592624, 8205880, 4614702, 0450778, 1945485 ####[address] [address] Platelet 423.0 E9/L Normal 150.0-500.0 [facility] Comment on above: Performed By: #### 1 4393726, 59521790, 0796772, 9246626, 5240539, 2756475 ####[address] [address] Platelet mean volume (Bld) [Entitic vol] 6.9 fL Normal 6.4-10.8 [facility] Comment on above: Performed By: #### 1 4172949, 64062301, 5889469, 3329742, 1898422, 2898326 ####[facility] [address] [place] [address] RBC 4.6 E12/L Normal 4.3-5.9 [facility] Comment on above: Performed By: #### 1 0553140, 70786923, 8280209, 9380179, 8839215, 5907249 ####[facility] [address] [place] [address] WBC 10.4 E9/L Normal 4.0-11.0 [facility] Comment on above: Performed By: #### 1 0803511, 19712564, 1103794, 2991337, 7471878, 1525782 ####[facility] [address] [place] [address] CHEMISTRYOrdered By: SYSTEM SYSTEM on 05-31-2023 Albumin [...] ton 05-31-2023 CT Abdomen/Pelvis w/ Contrast Normal [facility] Consent for Treatmenton Consent for Treatment [id number]#1 .00TIFF Normal [facility] Discharge Instructionson Discharge Instructions [id number] [id number]# 1.00TIFF Normal [facility] ED Clinical Summaryon 2023 ED Clinical Summary Normal [facility] ED Note-Nursingon 05-31-2023 ED Note-Nursing Patient provided wit h po fluids. Normal [facility] ED Note-Nursing Patient states no change in pain at this time, post pain medication. Normal [facility] ED Note-Physicianon 05-31-19 ED Note-Physician Normal [facility] Comment on above: Result Comment: Elec tronically Signed By: Sy Pickard PA-C\.br\Date and Time Signed: 05/31/23 11:06 EST\.br\Electronically Co-Signed By: Arpita Layton, Mary Jane Eugene\Date and Time Co-Signed: 05/31/23 17:55 EST ED Patient Education Noteon 05-31-2023 ED Patient Education Note Normal [facility] ED Patient Summaryon 024 ED Patient Summary Normal [facility] HEMATOLOGYOrdered By: SYSTEM SYSTEM on [...] Normal 80.0 - 100.0 fL Remisol Heme [place] Absolute 0.4 E9/L Normal 0.2 - 1.0 [...] 05-31-2023 Albumin [Mass/Vol] 4.5 g/dL Normal 3.3-5.0 [facility] Comment on above: Performed By: #### 1 9012005, 36080245, 5408704, 6299342, 6556038, 0730441 ####[facility] [address] [place] [address] Albumin/Globulin [Mass ratio] 1.5 {ratio} Normal 1.1-2.2 [facility] Comment on above: Performed By: #### 1 2567227, 06627451, 8549571, 1904321, 3071174, 6513707 ####[facility] [address] [place] [address] Alk Phos 112 Int._Unit/L High 21-98 [facility] Comment on above: Performed By: #### 1 6453968, 74404831, 0274295, 8057848, 1528580, 1682918 ####[facility] [address] [place] [address] ALT 13 Int._Unit/L Normal 6-46 [facility] Comment on above: Performed By: #### 1 8525782, 38296492, 2688618, 3486062, 6881617, 6462571 ####[facility] [address] [place] [address] AST 15 Int._Unit/L Normal 5-43 [facility] Comment on above: Performed By: #### 1 0094917, 63549156, 2843144, 2186647, 9912278, 6501918 ####[facility] [address] [place] [address] Bili Direct 0.2 mg/dL Normal 0.0-0.4 [facility] Comment on above: Performed By: #### 1 8493398, 53494346, 1961637, 4485362, 9289188, 7814085 ####[facility] [address] [place] [address] Bili Indirect 0.9 mg/dL Normal 0.1-0.9 [facility] Comment on above: Performed By: #### 1 2205182, 98411228, 5997708, 0076362, 8096937, 9072967 ####[facility] [address] [place] [address] Bili Total 1.1 mg/dL Normal 0.0-1.1 [facility] Comment on above: Performed By: #### 1 3224969, 14333606, 3004335, 4210410, 9701600, 6729975 ####[address] [address] Globulin (S) [Mass/Vol] 3.0 g/dL Normal 1.4-4.0 [facility] Comment on above: Performed By: #### 1 8692529, 56002061, 3398964, 4587528, 2030611, 2345392 ####[facility] [address] [place] [address] Protein [Mass/Vol] 7.5 g/dL Normal 6.0-7.8 [facility] Comment on above: Performed By: #### 1 6460479, 20128560, 7736583, 8988932, 4892832, 5927331 ####[facility] [address] [place] [address] Lipase Levelon 05-31-2023 Lipase Lvl 18 unit/L Normal 13-58 [facility] Comment on above: Performed By: #### 1 8920151, 02396010, 6619837, 5027417, 3121186, 1047557 ####[facility] [address] [place] [address] Prescriptions/Work Noteson 0 05-31-2023 Prescriptions/Work Notes [id number]# 1.00TIFF Normal [facility] SEROLOGYOrdered By: Joselin olmos on 05-31-2023 Beta HCG ( test) Ql Negative (05/31/23 8:38 AM) Normal [facility] Man Sero UA With Cult Reflexon 2023 Bacteria LM Ql (Urine sed) TRACE Normal Trace [facility] Comment on above: Performed By: #### 1 9855879 ####[facility] [address] [place] [address] Bilirubin Ql (U) Negative Normal Negative [facility] Comment on above: Performed By: #### 1 2853144 ####[facility] [address] [place] [address], [place] [address] Clarity (U) CLEAR Normal Clear [facility] Comment on above: Performed By: #### 1 2981684 ####[facility] [address] [place] [address] Color (U) STRAW Invalid Interpretation Code [facility] Comment on above: Performed By: #### 1 0085344 ####[facility] [address] [place] [address] Epithelial cells.squamous LM.HPF (Urine sed) [#/Area] 0-2 Normal 0-2 [facility] Comment on above: Performed By: #### 1 4816703 ####[facility] [address] [place] [address] Glucose Test strip (U) [Mass/Vol] Negative Normal Negative [facility] Comment on above: Performed By: #### 1 9605230 ####[facility] [address] [place] [address] Hemoglobin Ql (U) Negative Normal Negative [facility] Comment on above: Performed By: #### 1 7649666 ####[facility] [address] [place] [address] Ketones (U) [Mass/Vol] Negative Normal Negative [facility] Comment on above: Performed By: #### 1 2643220 ####[address] [address] [place].plasma/[place]. RBC (Bld) [Mass ratio] 0-3 Normal 0-3 [facility] Comment on above: Performed By: #### 1 4147359 ####[address] [address] Nitrite Ql (U) Negative Normal Negative [facility] Comment on above: Performed By: #### 1 6579528 ####[address] [address] pH (U) 6.5 [pH] Invalid Interpretation Code 5.0-9.0 [facility] Comment on above: Performed By: #### 1 4776561 ####[address] [address] Protein (U) [Mass/Vol] Negative Normal Negative [facility] Comment on above: Performed By: #### 1 4609105 ####[address] [address] Specific gravity (U) [Rel density] <=1.005 Invalid Interpretation Code 1.005-1.030 [facility] Comment on above: Performed By: #### 1 7089807 ####[address] [address] Type of Urine collection method Clean Catch Normal [facility] Comment on above: Performed By: #### 1 2854769 ####[address] [address] Urobilinogen Qn (U) 0.2 {Jane'U}/dL Normal 0.0-1.0 [facility] Comment on above: Performed By: #### 1 6045239 ####[address] [address] WBC Auto Ql (U) Negative Normal Negative [facility] Comment on above: Performed By: #### 1 0161109 ####[address] [address] WBC LM.HPF (Urine sed) [#/Area] 0-5 Normal 0-5 [facility] Comment on above: Performed By: #### 1 5321397 ####[facility] [address] [place] [address] URINALYSISOrdered By: Joselin ramirez on 05-31-2023 Bacteria [...] AM) Normal Negative [facility] UA Auto SS [place].plasma/[place]. RBC (Bld) [Mass ratio] 0-3 /HPF Normal [...] [facility] UA Auto SS Urobilinogen Qn (U) 0.7758715 {Jane'U}/dL Normal 0.0 - 1.0 EU/dL [facility] UA Auto SS WBC Auto Ql (U) Negative (05/31/23 8:56 AM) Normal Negative [facility] UA Auto SS WBC LM.HPF (Urine sed) [#/Area] 0-5 /HPF Normal 0-5/HPF [facility] UA Auto SS eGFRon 05-31-2023 eGFR 102 mL/min/1.73 m2 Normal >=59 [facility] Comment on above: Order Comment: Order added by Discern Expert. Performed By: #### 1 9551467, 98511850, 3647908, 0030779, 8227474, 6908829 ####[facility] [address] [place] [address] PT - Orderson 05-30-2023 PT - Orders [id number]# 1.00TIFF Normal [facility] Nonvisit Note - PTon 024 Nonvisit Note - PT Patient is not feeling well and requested to cancel. Normal [facility] Consent for Treatmenton 04-30 Consent for Treatment [id number] 401 [id number]#1 .00TIFF [facility] Consent for Treatment [id number] 401 [id number]#1 .00TIFF Normal [facility] Discharge Instructionson Discharge Instructions [id number] [id number]#1 .00TIFF Normal [facility] Discharge Instructions [id number] [id number]#1 .00TIFF Normal [facility] ED Clinical Summaryon 2023 ED Clinical Summary Normal [facility] ED Note-Physicianon 05-28-19 ED Note-Physician Normal [facility] Comment on above: Result Comment: Elec tronically Signed By: Ulisses Mckinney PA-C.tesha\Date and Time Signed: 05/28/23 10:54 EST\.br\Electronically Co-Signed By: Darren Lomax DO\Date and Time Co-Signed: 05/28/23 19:37 EST ED Patient Education Noteon 05-28-2023 ED Patient Education Note Normal [facility] ED Patient Summaryon ED Patient Summary Normal [facility] PT - Assessmentson PT - Assessments [id number]#1 .00TIFF Normal [facility] PT - Consentson 05-28-2023 PT - Consents [id number] 0 [id number]#1 .00TIFF Normal [facility] PT - Home Exercise Programon 05-28-2023 PT - Home Exercise Program [id number]#1 .00TIFF [facility] PT - Orderson 05-28-2023 PT - Orders [id number]# 1.00TIFF [facility] Consent for Treatmenton 04-29 Consent for Treatment [id number] 401 [id number]#1 .00TIFF [facility] Discharge Instructionson Discharge Instructions [id number]# 1.00TIFF [facility] ED Clinical Summaryon 2023 ED Clinical Summary Normal [facility] ED Note-Physicianon 05-22-19 ED Note-Physician Normal [facility] Comment on above: Result Comment: Elec tronically Signed By: Arpita Layton, Mary Jane Hurley\.br\Date and Time Signed: 05/22/23 07:35 EST ED Patient Education Noteon 05-22-2023 ED Patient Education Note Normal [facility] ED Patient Summaryon 024 ED Patient Summary Normal [facility] XR Hand 3+ Views Righton XR Hand 3+ Views Right Normal [facility] Consultation Noteon 05-16-19 Consultation Note [id number]#1 .00TIFF Normal [facility] Ambulatory Visit Summaryon 0 05-11-2023 Ambulatory Visit Summary Normal [facility] Family Medicine Office/Clini c Noteon 05-11-2023 Family Medicine Office/Clinic Note Normal [facility] Comment on above: Result Comment: Elec tronically Signed By: Geovany Ramirez DO\.br\Date and Time Signed: 05/11/23 12:50 EST Nonvisit Note - PTon 024 Nonvisit Note - PT Chart reviewed with eval prepped for scheduled eval. KK [facility] XR Spine Lumbosacral Minimum 4 Viewson 05-07-2023 XR Spine Lumbosacral Minimum 4 Views [facility] Consent for Treatmenton Consent for Treatment [id number] 401 [id number]#1 .00TIFF [facility] Physician Orderon 05-06-2023 Physician Order [id number]# 1.00TIFF [facility] Physician Order [id number]# 1.00TIFF [facility] Ambulatory Visit Summaryon 0 05-03-2023 Ambulatory Visit Summary Normal [facility] Family Medicine Office/Clini c Noteon 05-03-2023 Family Medicine Office/Clinic Note Normal [facility] Comment on above: Result Comment: Elec tronically Signed By: Isaac Stephen PA-C\.br\Date and Time Signed: 05/03/23 13:04 EST ED Note-Physicianon 04-26-20 23 ED Note-Physician Normal [facility] Comment on above: Result Comment: Elec tronically Signed By: Guille Will MD\.br\Date and Time Signed: 04/26/23 00:41 EST Consent for Treatmenton 03-28 Consent for Treatment [id number]#1 .00TIFF [facility] Discharge Instructionson Discharge Instructions [id number] [id number]#1 .00TIFF Normal [facility] ED Clinical Summaryon 2022 ED Clinical Summary Normal Chavo vasquez [facility] ED Note-Physicianon 04-15-20 ED Note-Physician Normal [facility] Comment on above: Result Comment: Elec tronically Signed By: Savanna Rivero PA-C\.br\Date and Time Signed: 04/15/23 12:21 EST\.br\Electronically Co-Signed By: Justo Arias DO\.br\Date and Time Co-Signed: 04/15/23 18:36 EST ED Patient Education Noteon 04-15-2023 ED Patient Education Note Normal [facility] ED Patient Summaryon 023 ED Patient Summary Normal [facility] Auto Diffon 04-11-2023 Basophils/100 WBC (Bld) 0.3 % Normal 0.0-2.0 F [facility] Comment on above: Order Comment: Order Added by Discern Expert. Performed By: #### 2 042697, 8386576, 3202253, 1611052, 82775542 ####[facility] [address] [place] [address] Basophils/Leukocytes Auto (Bld) [Pure # fraction] 0.0 E9/L Normal 0.0-0.2 [facility] Comment on above: Order Comment: Order Added by Discern Expert. Performed By: #### 2 315497, 7844497, 4906812, 7709556, 48674331 ####[facility] [address] [place] [address] Eosinophils/100 WBC (Bld) 0.1 % Normal 0.0-8.0 [facility] Comment on above: Order Comment: Order Added by Discern Expert. Performed By: #### 2 346127, 9307597, 1914607, 4537584, 54658041 ####[facility] [address] [place] [address] Eosinophils/Leukocytes Auto (Bld) [Pure # fraction] 0.0 E9/L Normal 0.0-0.5 [facility] Comment on above: Order Comment: Order Added by Discern Expert. Performed By: #### 2 826437, 8333597, 9403219, 6386722, 41325702 ####[address] [place] [address] Lymphocytes/100 WBC (Bld) 13.0 % Low 14.0-50.0 [facility] Comment on above: Order Comment: Order Added by Discern Expert. Performed By: #### 2 941770, 4250952, 0293988, 1114673, 15765091 ####[facility] [address] [place] [address] Lymphocytes/Leukocytes Auto (Bld) [Pure # fraction] 1.6 E9/L Normal 1.0-4.0 [facility] Comment on above: Order Comment: Order Added by Andria Expert. Performed By: #### 2 037462, 6794082, 7558201, 9637604, 69359632 ####[address] [address] Monocytes/100 WBC (Bld) 2.9 % Low 4.0-14.0 [facility] Comment on above: Order Comment: Order Added by Andria Expert. Performed By: #### 2 398456, 8023962, 7554393, 3151039, 43543845 ####[address] [address] Monocytes/Leukocytes Auto (Bld) [Pure # fraction] 0.4 E9/L Normal 0.2-1.0 [facility] Comment on above: Order Comment: Order Added by Andria Expert. Performed By: #### 2 548241, 0239334, 1750043, 3544028, 68687041 ####[address] [place] [address] Neutrophils/100 WBC (Bld) 83.7 % High 36.0-75.0 [facility] Comment on above: Order Comment: Order Added by Andria Expert. Performed By: #### 2 131049, 7420018, 5309861, 1455418, 24721894 ####[facility] [address] [place] [address] Neutrophils/Leukocytes Auto (Bld) [Pure # fraction] 10.0 E9/L High 2.0-7.5 [facility] Comment on above: Order Comment: Order Added by Discern Expert. Performed By: #### 2 785707, 0561008, 1600716, 7080851, 66526484 ####[facility] [address] [place] [address] BMPon 04-11-2023 Anion gap [Moles/Vol] 13 mmol/L Normal 6-16 [facility] Comment on above: Performed By: #### 2 658991, 8704186, 0670142, 1036166, [id number] ####[facility] [address] [place] [address] BUN/Creat Ratio 15 No Units Normal 10-20 [facility] Comment on above: Performed By: #### 2 953300, 3040101, 6873081, 6058520, [id number] ####[facility] [address] [place] [address] Calcium [Mass/Vol] 9.8 mg/dL Normal 8.9-11.1 [facility] Comment on above: Performed By: #### 2 931404, 4438130, 6574313, 3935120, 34538397 ####[facility] [address] [place] [address] Chloride [Moles/Vol] 103 mmol/L Normal 101-111 [facility] Comment on above: Performed By: #### 2 928808, 2711485, 5855897, 8568452, 26104625 ####[facility] [address] [place] [address] CO2 [Moles/Vol] 30 mmol/L Normal 21-31 [facility] Comment on above: Performed By: #### 2 361172, 8901135, 2047536, 4805977, 75589632 ####[facility] [address] [place] [address] Creatinine [Mass/Vol] 0.8 mg/dL Normal 0.5-1.3 [facility] Comment on above: Performed By: #### 2 748429, 7580418, 8943248, 4775367, 37650981 ####[facility] [address] [place] [address] Glucose [Mass/Vol] 110 mg/dL Normal 55-199 [facility] Comment on above: Performed By: #### 2 311263, 6600729, 6347634, 3482076, 88062704 ####[facility] [address] [place] [address] Potassium [Moles/Vol] 3.7 mmol/L Normal 3.5-5.3 [facility] Comment on above: Performed By: #### 2 299649, 3671251, 9335509, 0033934, 89123338 ####[facility] [address] [place] [address] Sodium [Moles/Vol] 142 mmol/L Normal 135-145 [facility] Comment on above: Performed By: #### 2 799129, 2811773, 5688380, 9946156, 94512455 ####[facility] [address] [place] [address] Urea nitrogen [Mass/Vol] 12 mg/dL Normal 5-21 [facility] Comment on above: Performed By: #### 2 430935, 3200164, 3351000, 6665629, 46619611 ####[facility] [address] [place] [address] CBC w/ Auto Diffon 3 Erythrocyte distribution width (RBC) [Ratio] 13.1 % Normal 10.9-14.2 [facility] Comment on above: Performed By: #### 2 391894, 1569450, 0611837, 9042626, 10714114 ####[facility] [address] [place] [address] Hematocrit (Bld) [Volume fraction] 43.4 % Normal 34.0-46.0 [facility] Comment on above: Performed By: #### 2 454200, 8112580, 9549791, 0325553, 09561873 ####[facility] [address] [place] [address] Hemoglobin (Bld) [Mass/Vol] 14.1 g/dL Normal 12.0-16.0 [facility] Comment on above: Performed By: #### 2 485743, 7105410, 3962582, 4686577, 62697777 ####[address] [place] [address] MCH (RBC) [Entitic mass] 29.2 pg Normal 27.0-34.0 [facility] Comment on above: Performed By: #### 2 523388, 7243054, 9120298, 6182732, 12975925 ####[address] [address] MCHC (RBC) [Mass/Vol] 32.6 g/dL Normal 31.4-36.0 [facility] Comment on above: Performed By: #### 2 486018, 7028072, 2271736, 2293306, 56826449 ####[address] [address] MCV (RBC) [Entitic vol] 89.7 fL Normal 80.0-100.0 F [facility] Comment on above: Performed By: #### 2 795423, 8088887, 1647854, 4134799, 29935336 ####[address] [place] [address] Platelet mean volume (Bld) [Entitic vol] 6.9 fL Normal 6.4-10.8 [facility] Comment on above: Performed By: #### 2 440801, 1827991, 9425658, 7289695, 02476844 ####[address] [address] Platelets (Bld) [#/Vol] 488.0 E9/L Normal 150.0-500.0 [facility] Comment on above: Performed By: #### 2 131846, 2225341, 0789943, 0713296, 21639177 ####[facility] [address] [place] [address] RBC (Bld) [#/Vol] 4.8 E12/L Normal 4.3-5.9 [facility] Comment on above: Performed By: #### 2 103406, 7298440, 5197237, 5266225, 87029070 ####[facility] [address] [place] [address] WBC corrected for nucl RBC Auto (Bld) [#/Vol] 11.9 E9/L High 4.0-11.0 [facility] Comment on above: Performed By: #### 2 028155, 4092161, 1847431, 3733433, 28269301 ####[facility] [address] [place] [address] CRPon 04-11-2023 CRP [Mass/Vol] mg/L Normal <=1.9 [facility] Comment on above: Performed By: #### 2 210213, 6853593, 0500250, 0774096, 59490629 ####[facility] [address] [place] [address] CT Head or Brain w/ + w/o Co ntraston 04-11-2023 CT Head or Brain w/ + w/o Contrast Normal [facility] CT Maxillofacial w/ Contrast on 04-11-2023 CT Maxillofacial w/ Contrast Normal [facility] Consent for Treatmenton 03-28 Consent for Treatment [id number] .00TIFF Normal [facility] Discharge Instructionson Discharge Instructions [id number]#1 .00TIFF Normal [facility] ED Clinical Summaryon 2022 ED Clinical Summary Normal [facility] ED Patient Education Noteon 04-11-2023 ED Patient Education Note Normal [facility] ED Patient Summaryon 023 ED Patient Summary Normal [facility] eGFRon 04-11-2023 GFR/1.73 sq M.predicted among non-blacks MDRD (S/P/Bld) [Vol rate/Area] mL/min/{1.73_m2} Normal >=59 [facility] Comment on above: Order Comment: Order added by Discern Expert. Performed By: #### 2 539907, 1910224, 6174912, 3856508, 47184390 ####[facility] [address] [place] [address] ED Note-Physicianon 04-10-20 ED Note-Physician Normal [facility] Comment on above: Result Comment: Elec tronically Signed By: Ulisses Mckinney PA-C\.br\Date and Time Signed: 03/30/23 18:21 EST\.br\Electronically Co-Signed By: Guille Will MD\.br\Date and Time Co-Signed: 04/10/23 07:40 EST Consent for Treatmenton Consent for Treatment [id number] .00TIFF Normal [facility] Discharge Instructionson Discharge Instructions [id number] .00TIFF Normal [facility] ED Clinical Summaryon 2022 ED Clinical Summary Normal [facility] ED Patient Education Noteon 03-30-2023 ED Patient Education Note Normal [facility] ED Patient Summaryon 023 ED Patient Summary Normal [facility] Family Medicine Office/Clini c Noteon 03-12-2023 Family Medicine Office/Clinic Note Normal [facility] Comment on above: Result Comment: Elec tronically Signed By: Amos Castellon PA-C\.br\Date and Time Signed: 03/12/23 09:12 EST Patient Educationon 03-12-20 Patient Education Normal [facility] Ambulatory Visit Summaryon 1 05-11-2022 Ambulatory Visit Summary Normal [facility] Consenton 01-24-2023 Consent [id number]#1 .00CD:127 Normal [facility] Family Medicine Office/Clini c Noteon 01-24-2023 [facility] Medicine Office/Clinic Note Normal [facility] Comment on above: Result Comment: Elec tronically Signed By: Rojelio Saldana PA-C.br\Date and Time Signed: 01/24/23 10:02 EDT Patient Educationon 01-25-20 Patient Education Normal [facility] Consenton 01-16-2023 Consent [id number]#1. 00CD:127 Normal [facility] Ambulatory Visit Summaryon 0 01-15-2023 Ambulatory Visit Summary Normal [facility] Family Medicine Office/Clini c Noteon 01-15-2023 Family Medicine Office/Clinic Note Normal [facility] Comment on above: Result Comment: Elec tronically Signed By: Rojelio Saldana PA-C, V.\.br\Date and Time Signed: 01/15/23 14:02 EDT Patient Educationon 01-16-20 Patient Education Normal [facility] Family Medicine Office/Clini c Noteon 11-21-2022 [facility] Medicine Office/Clinic Note Normal [facility] Comment on above: Result Comment: Elec tronically Signed By: Amos Castellon PA-C.br\Date and Time Signed: 11/21/22 09:11 EDT ED Note-Physicianon 11-21-19 ED Note-Physician Normal [facility] Comment on above: Result Comment: Elec tronically Signed By: Ulisses Mckinney PA-C.br\Date and Time Signed: 11/20/22 00:22 EDT\.br\Electronically Co-Signed By: Vivian Ochoa DO.br\Date and Time Co-Signed: 11/20/22 01:45 EDT XR Hand 3+ Views Righton XR Hand 3+ Views Right Normal [facility] XR Wrist 3+ Views Righton XR Wrist 3+ Views Right Normal F lucius [facility] Consent for Treatmenton 10-27 Consent for Treatment [id number]#1 .00CD:127 Normal [facility] Discharge Instructionson Discharge Instructions [id number]# 1.00CD:127 Normal [facility] ED Clinical Summaryon 2022 ED Clinical Summary Normal Chavo vasquez [facility] ED Patient Education Noteon 11-19-2022 ED Patient Education Note Normal [facility] ED Patient Summaryon 023 ED Patient Summary Normal [facility] C Urineon 11-13-2022 Bacteria identified Cx Nom (U) Normal [facility] Comment on above: Performed By: #### 2 [id number] ####[facility] [address] [place] [address] CHEMISTRYOrdered By: SYSTEM SYSTEM on 09-14-2021 Anion gap [Moles/Vol] 14 mmol/L Normal 6 - 16 mEq/L [facility] [place] [place] Remisol Calcium [Mass/Vol] 9.3 mg/dL Normal 8.9 - 11. 1 mg/dL [facility] Remisol Chloride [Moles/Vol] 103 mmol/L Normal 101 - 1 11 mmol/L [facility] Remisol CO2 [Moles/Vol] 24 mmol/L Normal 21 - 31 mmol/L [facility] Remisol Creatinine [Mass/Vol] 0.7 mg/dL Normal 0.5 - 1.3 mg/dL [facility] Remisol GFR/1.73 sq M.predicted among blacks MDRD (S/P/Bld) [Vol rate/Area] mL/min/1.73 m2 Normal >=59mL/min/1 .73 m2 [facility] Chem S GFR/1.73 sq M.predicted among non-blacks MDRD (S/P/Bld) [Vol rate/Area] mL/min/1.73 m2 Normal >=59mL/min/1 .73 m2 [facility] Chem S Glucose [Mass/Vol] 89 mg/dL Normal [...] 10 - 20 [facility] Remisol HEMATOLOGYOrdered By: [place] SYSTEM on 09-14-2021 Basophils/100 WBC (Bld) 0.7 [...] PM) Normal Negative [facility] UA Auto SS [place].plasma/[place]. RBC (Bld) [Mass ratio] 0-3 /HPF Normal 0-3/HPF [facility] UA A uto SS Nitrite Ql (U) Negative (09/14/21 7:20 PM) Normal Negative [facility] UA Auto SS pH (U) 7.5 *NA* (09/14/21 7:20 PM) Invalid Interpretation Code 5.0 - 9.0 [facility] UA Auto SS Protein (U) [Mass/Vol] Negative (09/14/21 7:20 PM) Normal Negative [facility] UA Auto SS Specific gravity (U) [Rel density] 1.010 *NA* (09/14/21 7:20 PM) Invalid Interpretation Code 1.005 - 1.030 [facility] UA Auto SS UA Spec Desc Clean Catch (09/14/21 7:20 PM) Normal [facility] UA Auto SS Urobilinogen Qn (U) 0.2673682 {Jane'U}/dL Normal 0.0 - 1.0 EU/dL [facility] UA Auto SS WBC Auto Ql (U) Negative (09/14/21 7:20 PM) Normal Negative [facility] UA Auto SS WBC LM.HPF (Urine sed) [#/Area] 0-5 /HPF Normal 0-5/HPF [facility] UA Auto SS Reference Laboratory Testing Ordered By: Leesa Choudhury on 09-12-2021 Test Code 186324 Invalid Interpretation Code [facility] Test Name IG PAP CTNG HPV Invalid Interpretation Code [facility] Group B Strep Screen PCRon 0 07-23-2021 Group B Strep Screen PCR Group B Strep Screen PCR --> Status: F POSITIVE Expected Result: Negative CDC guidelines for prevention of Group B Strep disease recommends collection of both vaginal and rectal specimens for optimal recovery of GBS. Methodology - Real Time PCR (Heckylid) Expected Result: Negative CDC guidelines for prevention of Group B Strep disease recommends collection of both vaginal and rectal specimens for optimal recovery of GBS. Methodology - Real Time PCR (CepFundbaseid) 1 Organism Streptococcus agalactiae (Group B) Isolated: Susceptibility testing not routinely performed. Group B streptococcus is universally susceptible to beta-lactam antibiotics and vancomycin. If patient is beta-lactam allergic, please call [facility] Microbiology lab ([phone]) within 2 days to request susceptibility testing. If isolated from urine, Group B strep may indicate colonization or infection. 1 Organism Antibiotic Result Intrp Ampicillin(DOMINGUEZ) <= 0.25 S Inducible Clindamycin Resistant(DOMINGUEZ)Neg Neg Ceftriaxone(DOMINGUEZ) <= 0.12 S Clindamycin(DOMINGUEZ) <= 0.25 S Vancomycin(DOMIGNUEZ) 0.5 S Levofloxacin(DOMINGUEZ) 0.5 S Linezolid(DOMINGUEZ) <= 2 S Tetracycline(DOMINGUEZ) >= 16 R Erythromycin(DOMINGUEZ) <= 0.12 S Penicillin-G(DOMINGUEZ) <= 0.06 S Normal [facility] Comment on above: Performed By: #### B GLU #### [facility] [address] [place], [place] Glucose,Bedsideon 07-20-2021 Glucose [Mass/Vol] 114 mg/dL [address] Comment on above: Result Comment: Test performed by glucose meter. Results may be 10%-15% lower than serum/plasma values. (CLIA ID [id number]) Performed By: #### B GLU #### [facility] [address] [place], [place] Glucose [Mass/Vol] 148 mg/dL [facility] 70-100 [facility] Comment on above: Result Comment: Test performed by glucose meter. Results may be 10%-15% lower than serum/plasma values. (CLIA ID [id number]) Performed By: #### B GLU #### [facility] [address] [place], [place] Glucose [Mass/Vol] 109 mg/dL High 70-100 [facility] Comment on above: Result Comment: Test performed by glucose meter. Results may be 10%-15% lower than serum/plasma values. (CLIA ID [id number]) Performed By: #### B GLU #### [facility] [address] [place] [address] Glucose [Mass/Vol] 184 mg/dL High 70-100 [facility] Comment on above: Result Comment: Test performed by glucose meter. Results may be 10%-15% lower than serum/plasma values. (CLIA ID [id number]) Performed By: #### B GLU #### [facility] [address] [place] [address] POCT Glucoseon 07-20-2021 Glucose [Mass/Vol] 114 mg/dL High 70 - 100 mg/dL [facility] Work Phone: Comment on above: Test performed by gl ucose meter. Results may be 10%-15% lower than serum/plasma values. (CLIA ID [id number]) Interpretation and review of laboratory results Abnormal [facility] Work Phone: Test Performed by [facility], [address] [place] [id number] [place] [address] - [facility] Work Phone: Glucose [Mass/Vol] 148 mg/dL High 70 - 100 mg/dL [facility] Work Phone: Comment on above: Test performed by gl ucose meter. Results may be 10%-15% lower than serum/plasma values. (CLIA ID [id number]) Interpretation and review of laboratory results Abnormal [facility] Work Phone: Test Performed by [facility], [address] [place] [id number] [place] [address] - [facility] Work Phone: Test Performed by [facility], [facility] [place] [address] [facility] Test Performed by [facility], [address] [place] [id number] [place] [address] LAB POCT GlucoseOrdered By: Beka Handley on 07-20-2021 Glucose [Mass/Vol] 109 mg/dL High 70 - 100 mg/dL [facility] Comment on above: Test performed by gl ucose meter. Results may be 10%-15% lower than serum/plasma values. (CLIA ID [id number]) Interpretation and review of laboratory results Abnormal [facility] POCT GlucoseOrdered By: Che Mary on 07-20-2021 Glucose [Mass/Vol] 184 mg/dL High 70 - 100 mg/dL [facility] Comment on above: Test performed by gl ucose meter. Results may be 10%-15% lower than serum/plasma values. (CLIA ID [id number]) Interpretation and review of laboratory results Abnormal [facility] C. Trachomatis / N. Gonorrho eae, DNA Probeon 07-19-2021 C. trachomatis DNA ESTER+probe Ql (Genital specimen) NOT Detected Chlamydia trachomatis Nucleic Acid NOT Detected by DNA Amplification using the Heckylid System. Culture is the only recommended test in medical-legal cases such as suspected child abuse or molestation. [facility] N. gonorrhoeae DNA ESTER+probe Ql (Unsp spec) NOT Detected Neisseria gonorrhoeae Nucleic Acid NOT Detected by DNA Amplification using the CepFundbaseid System. Culture is the only recommended test in medical-legal cases such as suspected child abuse or molestation. [facility] Test Performed by [facility], [address] [place] [id number] [facility] CBCon 07-19-2021 Hematocrit (Bld) [Volume fraction] 36.3 % 35.0 - 47.0 % [facility] Hemoglobin.gastrointest inal spec 1 Ql (Stl) 12.1 g/dL 11.7 - 16.0 g/dL [facility] Interpretation and review of laboratory results Abnormal [facility] MCH (RBC) [Entitic mass] 29.9 pg 26.0 - 34.0 pg [facility] MCHC (RBC) [Mass/Vol] 33.4 % 32.0 - 36.0 % [facility] MCV (RBC) [Entitic vol] 89.5 fL 79.0 - 98.0 fL [facility] Platelet distribution width (Bld) [Ratio] 14.7 % High 11.5 - 14.5 % [facility] Platelet mean volume (Bld) [Entitic vol] 8.1 fL 7.4 - 10.4 fL [facility] Platelets (Bld) [#/Vol] 381 10*3/uL 140 - 440 10*3/uL [facility] RBC (Bld) [#/Vol] 4.05 10*6/uL 3.80 - 5.2 0 10*6/uL [facility] WBC (Bld) [#/Vol] 21.9 10*3/uL High 3.6 - 10.7 10*3/uL [facility] Test Performed by [facility], [address] [place] [id number] [facility] Chlamydia and GC PCR Panelon 07-19-2021 Chlamydia [...] as suspected child abuse or molestation. Normal [facility] Comment on above: Performed By: #### B GLU #### [address] [address] Comp Metabolic Panelon 07-19 Calcium [Mass/Vol] 7.6 mg/dL Low 8.4-10.4 [facility] Comment on above: Performed By: #### C MP3 #### [address] ALP [Catalytic activity/Vol] 157 U/L High 38-126 [facility] Comment on above: Performed By: #### C MP3 #### [address] [place] ALT [Catalytic activity/Vol] 13 U/L Normal 0-34 [facility] Comment on above: Result Comment: The ALT test is performed by an updated assay method. Please note that the reference intervals have been changed and are now sex specific. Performed By: #### C MP3 #### [facility] [address] [place], [place] Anion gap [Moles/Vol] 3 mmol/L Normal 3-13 [facility] Comment on above: Performed By: #### C MP3 #### [facility] [address] [place], [place] AST [Catalytic activity/Vol] 27 U/L Normal 15-46 [facility] Comment on above: Performed By: #### C MP3 #### [address] [place], [place] Bilirubin [Mass/Vol] 0.4 mg/dL Normal 0.2-1.3 [facility] Comment on above: Performed By: #### C MP3 #### [address] [place], [place] CO2 [Moles/Vol] 24 mmol/L Normal 22-30 [facility] Comment on above: Performed By: #### C MP3 #### [address] [place], [place] Creatinine [Mass/Vol] 0.44 mg/dL Low 0.52-1.25 [facility] Comment on above: Performed By: #### C MP3 #### [address] [place], [place] eGFR OTHER > 90.0 Normal >60 [facility] Comment on above: Result Comment: KDIG O [...] secretion. Performed By: #### C MP3 #### [facility] [address] [place], [place] GFR/1.73 sq M.predicted among blacks MDRD (S/P/Bld) [Vol rate/Area] mL/min/{1.73_m2} Normal >60 [facility] Comment on above: Performed By: #### C MP3 #### [address] [place], [place] Glucose [Mass/Vol] 103 mg/dL High 70-100 [facility] Comment on above: Performed By: #### C MP3 #### [address] [place], [place] Protein [Mass/Vol] 6.3 g/dL Normal 6.3-8.2 [facility] Comment on above: Performed By: #### C MP3 #### [address] [place], [place] Urea nitrogen [Mass/Vol] 3 mg/dL Low 9-20 [facility] Comment on above: Performed By: #### C MP3 #### [facility] [address] [place], [place] Potassium [Moles/Vol] 3.7 mmol/L Normal 3.5-5.1 [facility] Comment on above: Performed By: #### C MP3 #### [address] [place], [place] Albumin [Mass/Vol] 3.3 g/dL Low 3.5-5.0 [facility] Comment on above: Performed By: #### C MP3 #### [facility] [address] [place], [place] Chloride [Moles/Vol] 105 mmol/L Normal 98-107 [facility] Comment on above: Performed By: #### C MP3 #### [facility] [address] [place], [place] Sodium [Moles/Vol] 133 mmol/L Low 135-145 [facility] Comment on above: Performed By: #### C MP3 #### [facility] [address] [place], [place] Complete Urinalysison 2021 Appearance (U) Clear Normal Clear [facility] Comment on above: Result Comment: . Performed By: #### C UA2 #### [address] [place], [place] Bilirubin,Urine Negative Normal Negative [facility] Comment on above: Result Comment: . Performed By: #### C UA2 #### [address] [place], [place] Color (U) Colorless Normal Lt. Yellow [facility] Comment on above: Result Comment: . Performed By: #### C UA2 #### [address] [place], [place] Glucose Ql (U) Normal Normal Normal (<70) [facility] Comment on above: Result Comment: . Performed By: #### C UA2 #### [address] [place], [place] Ketone,Urine 10 mg/dL Abnormal Negative [facility] Comment on above: Result Comment: . Performed By: #### C UA2 #### [address] [place], [place] Leukocytes,Urine Negative Normal Negative [facility] Comment on above: Result Comment: . Performed By: #### C UA2 #### [address] [place], [place] Nitrites,Urine Negative Normal Negative [facility] Comment on above: Result Comment: . Performed By: #### C UA2 #### [address] [place], [place] Occult Blood,Urine Negative Normal Negative [facility] Comment on above: Result Comment: . Performed By: #### C UA2 #### [facility] [address] [place], [place] pH,Urine 5.0 Normal 5.0-8.0 [facility] Comment on above: Result Comment: . Performed By: #### C UA2 #### [facility] [address] [place], [place] Specific Mobile,Urine < 1.005 Abnormal 1.005 - 1.030 [facility] Comment on above: Result Comment: . Performed By: #### C UA2 #### [facility] [address], [place] Total Protein,Urine Negative Normal Negative [facility] Comment on above: Result Comment: . Performed By: #### C UA2 #### [facility] [address], [place] Urobilinogen,Urine Normal Normal Normal (0-1) [facility] Comment on above: Result Comment: . Performed By: #### C UA2 #### [place] [address], [place] Comprehensive Metabolic Pane chata 07-19-2021 Albumin [...] - 1.25 mg/dL [facility] EGFR IF NonAfrican Northern Irish >90.0 >60 mL/min [facility] Comment on above: KDIGO guidelines pro vide [...] 103 mg/dL High 70 - 100 mg/dL [facility] Interpretation and review of laboratory results Abnormal [facility] Potassium [Moles/Vol] 3.7 mmol/L 3.5 - 5.1 mmol/L [facility] Sodium [Moles/Vol] 133 mmol/L Low 135 - 145 mmol/L [facility] Urea nitrogen (BldV) [Mass/Vol] 3 mg/dL Low 9 - 20 mg/dL [facility], [address] [place] [address] LAB [facility] Glucose,Bedsideon 07-19-2021 Glucose [Mass/Vol] 112 mg/dL High 70-100 [facility] Comment on above: Result Comment: Test performed by glucose meter. Results may be 10%-15% lower than serum/plasma values. (CLIA ID [id number]) Performed By: #### B GLU #### [address] Hemogramon 07-19-2021 Erythrocyte distribution width (RBC) [Ratio] 14.7 % High 11.5-14.5 [facility] Comment on above: Performed By: #### H EMOG #### [facility] [address], [place] Hematocrit (Bld) [Volume fraction] 36.3 % Normal 35.0-47.0 [facility] Comment on above: Performed By: #### H EMOG #### [place] [address] [address] [place], [place] Hemoglobin (Bld) [Mass/Vol] 12.1 g/dL Normal 11.7-16.0 [facility] Comment on above: Performed By: #### H EMOG #### [place] [address], [place] MCH (RBC) [Entitic mass] 29.9 pg Normal 26.0-34.0 [facility] Comment on above: Performed By: #### H EMOG #### [place] [address] [place], [place] MCHC 33.4 % Normal 32.0-36.0 [facility] Comment on above: Performed By: #### H EMOG #### [place] [address] [address] [place], [place] MCV (RBC) [Entitic vol] 89.5 fL Normal 79.0-98.0 [facility] Comment on above: Performed By: #### H EMOG #### [place] [address] [address] [place], [place] Platelet mean volume (Bld) [Entitic vol] 8.1 fL Normal 7.4-10.4 [facility] Comment on above: Performed By: #### H EMOG #### [place] [address] [address] [place], [place] Platelets (Bld) [#/Vol] 381 10*3/uL Normal 140-440 [facility] Comment on above: Performed By: #### H EMOG #### [place] [address] [address] [place], [place] RBC (Bld) [#/Vol] 4.05 10*6/uL Normal 3.80-5.20 [facility] Comment on above: Performed By: #### H EMOG #### [facility] [address], [place] WBC (Bld) [#/Vol] 21.9 10*3/uL High 3.6-10.7 [facility] Comment on above: Performed By: #### H EMOG #### [facility] [employer] [facility] [address], [place] MFM US Biophy w/o non- stresson 07-19-2021 MFM US Biophy w/o non-stress Patient Name: ALEJANDRA REAL Maternal Medicine ACCESSION EXAM DATE/TIME PROCEDURE ORDERING PROVIDER [id number] 07/19/2021 09:43 EDT MFM US Biophy w/o [id number] JERRELL WHITNEY non-stress Reason For Exam ([facility] US Biophy w/o non-stress) PTL Report ------- OBSTETRICS REPORT (Signed Final 07/19/2021 10:21 am) ------- PATIENT INFO: ID #: [id number] : [birth year] (25 yrs) Name: ALEJANDRA REAL Visit Date: 07/19/2021 09:19 am ------- PERFORMED BY: Attending: Misti Ziegler MD Performed By: Shamika Mckee RDMS Referred By: JERRELL VELEZ Visit Type: Inpatient - Hospital ------- SERVICE(S) PROVIDED: US >= 14 weeks 61887 BPP w/out NST 82363 ------- INDICATIONS: Labor H/O PTD ------- VITAL [...] Normal appearance Interventr. Septum: Normal appearance Cardiac [place]: Normal appearance Diaphragm: Normal appearance 3 Vessel [...] i (more content not included)... Normal [facility] After 1st T rimesteron 07-19-2021 MFM US After 1st Trimester Patient Name: ALEJANDRA REAL Maternal Medicine ACCESSION EXAM DATE/TIME PROCEDURE ORDERING PROVIDER [id number] 07/19/2021 09:43 EDT MFM US Biophy w/o [id number] JERRELL WHITNEY non-stress Reason For Exam (M US Biophy w/o non-stress) PTL Report ------- OBSTETRICS REPORT (Signed Final 07/19/2021 10:21 am) ------- PATIENT INFO: ID #: [id number] : [birth year] (25 yrs) Name: ALEJANDRA REAL Visit Date: 07/19/2021 09:19 am ------- PERFORMED BY: Attending: Misti Ziegler MD Performed By: Shamika Mckee RDMS Referred By: JERRELL VELEZ Visit Type: Inpatient - Hospital ------- SERVICE(S) PROVIDED: US >= 14 weeks 49061 BPP w/out NST 11390 ------- INDICATIONS: Labor H/O PTD ------- VITAL [...] Normal appearance Interventr. Septum: Normal appearance Cardiac [place]: Normal appearance Diaphragm: Normal appearance 3 Vessel [...] live i (more content not included)... Normal [facility] No Panel Informationon 07-19 Radiology Study observation (narrative) [facility] Work Phone: POCT GlucoseOrdered By: Venancio Hollingsworth on 07-19-2021 Glucose [Mass/Vol] 112 mg/dL High 70 - 100 mg/dL [facility] Comment on above: Test performed by ucose meter. Results may be 10%-15% lower than serum/plasma values. (CLIA ID [id number]) Interpretation and review of laboratory results Abnormal [facility] POCT Glucoseon 07-19-2021 Test Performed by [facility], [address] [place] [id number] [facility] LAB RADIOLOGY REPORTon 2 Ordered by an unspecified provider. [employer] TS GELon 07-19-2021 TS GEL ABO Group: O Rh, Gel: POS Antibody Screen Gel: NEG Normal [facility] Comment on above: Performed By: #### T SGL #### [facility] TYPE AND SCREENon 07-19-2021 ABO Grouping O [facility] Rh Type Positive [facility] Test Performed by [address] LAB [facility] Trichomonas Vaginali, Molecu alesia 07-19-2021 Trichomonas Vaginali, Molecular NOT Detected Reference Interval: Not Detected Method: Real-time PCR. Negative results do not completely rule out infection with Trichomonas vaginalis. [facility] Test Performed by [facility], [address] [place] [address] LAB [facility] Trichomonas vaginalis PCRon 07-19-2021 Trichomonas vaginalis PCR Trichomonas vaginalis PCR --> Status: F NOT Detected Reference Interval: Not Detected Method: Real-time PCR. Negative results do not completely rule out infection with Trichomonas vaginalis. Reference Interval: Not Detected Method: Real-time PCR. Negative results do not completely rule out infection with Trichomonas vaginalis. Normal [facility] Comment on above: Performed By: #### C TNGP, TVPCR #### [address] [address] US BIOPHYSICAL PROFILE WO NON STRESS TESTINGon 07-19-2021 Patient Name: ALEJANDRA REAL Maternal Medicine ACCESSION EXAM DATE/TIME PROCEDURE ORDERING PROVIDER [id number] 07/19/2021 09:43 EDT [facility] US Biophy w/o JERRELL LOCKETT non-stress Reason For Exam ([facility] US Biophy w/o non-stress) PTL Report ------- OBSTETRICS REPORT (Signed Final 07/19/2021 10:21 am) ------- PATIENT INFO: ID #: [id number] : [birth year] (25 yrs) Name: ALEJANDRA REAL Visit Date: 07/19/2021 09:19 am ------- PERFORMED BY: Attending: Misti Ziegler MD Performed By: Shamika Mckee RDMS Referred By: JERRELL VELEZ Visit Type: Inpatient - Hospital ------- SERVICE(S) PROVIDED: US >= 14 weeks 58409 BPP w/out NST 01124 ------- INDICATIONS: Labor H/O PTD ------- VITAL [...] Cardiac [place]: Norm (more content not included)... [facility] Misti Cisneros MD - 07/19/2021 Patient Name: ALEJANDRA REAL Maternal Medicine ACCESSION EXAM DATE/TIME PROCEDURE ORDERING PROVIDER [id number] 07/19/2021 09:43 EDT [facility] Biophy w/o [id number] JERRELL WHITNEY non-stress Reason For Exam ([facility] US Biophy w/o non-stress) PTL Report ------- OBSTETRICS REPORT (Signed Final 07/19/2021 10:21 am) ------- PATIENT INFO: ID #: [id number] : [birth year] (25 yrs) Name: ALEJANDRA REAL Visit Date: 07/19/2021 09:19 am ------- PERFORMED BY: Attending: Misti Ziegler MD Performed By: Shamika Mckee RDMS Referred By: JERRELL VELEZ Visit Type: Inpatient - Hospital ------- SERVICE(S) PROVIDED: US >= 14 weeks 00415 BPP w/out NST 69201 ------- INDICATIONS: Labor H/O PTD ------- VITAL [...] Normal appearance Interventr. Septum: Normal appearance Cardiac [place]: Normal appearance Diaphragm: Normal appearance 3 Vessel [...] Comment: Anatomy pablo (more content not included)... [employer] Work Phone: US BIOPHYSICAL PROFILE WO NON STRESS TESTINGOrdered By: Misti Ziegler on 07-19-2021 [employer] Work Phone: US OB 14 PLUS WEEKS SINGLE O R FIRST GESTATIONon 07-19-2021 Patient Name: ALEJANDRA REAL Maternal Medicine ACCESSION EXAM DATE/TIME PROCEDURE ORDERING PROVIDER [id number] 07/19/2021 09:43 EDT [facility] US Biophy w/o [id number] -JERRELL VELEZ non-stress Reason For Exam ([facility] US Biophy w/o non-stress) PTL Report ------- OBSTETRICS REPORT (Signed Final 07/19/2021 10:21 am) ------- PATIENT INFO: ID #: [id number] : [birth year] (25 yrs) Name: ALEJANDRA REAL Visit Date: 07/19/2021 09:19 am ------- PERFORMED BY: Attending: Misti Ziegler MD Performed By: Shamika Mckee RDMS Referred By: JERRELL VELEZ Visit Type: Inpatient - Hospital ------- SERVICE(S) PROVIDED: US >= 14 weeks 71557 BPP w/out NST 10519 ------- INDICATIONS: Labor H/O PTD ------- VITAL [...] Medicine ACCESSION EXAM DATE/TIME PROCEDURE ORDERING PROVIDER [id number] 07/19/2021 09:43 EDT [facility] US Biophy w/o [id number] JERRELL WHITNEY non-stress Reason For Exam ([facility] US Biophy w/o non-stress) PTL Report ------- OBSTETRICS REPORT (Signed Final 07/19/2021 10:21 am) ------- PATIENT INFO: ID #: [id number] : [birth year] (25 yrs) Name: ALEJANDRA REAL Visit Date: 07/19/2021 09:19 am ------- PERFORMED BY: Attending: Misti Ziegler MD Performed By: Shamika Mckee RDMS Referred By: JERRELL VELEZ Visit Type: Inpatient - Hospital ------- SERVICE(S) PROVIDED: US >= 14 weeks 88871 BPP w/out NST 25650 ------- INDICATIONS: Labor H/O PTD ------- VITAL [...] Normal appearance Interventr. Septum: Normal appearance Cardiac [place]: Normal appearance Diaphragm: Normal appearance 3 Vessel [...] Comment: Anatomy pablo (more content not included)... [facility] Work Phone: [phone] [facility] Work Phone: [phone] Urinalysison 07-19-2021 Appearance (U) Clear Clear NA [...] [pH] [facility] Comment on above: . Specific Mobile, Urine <1.005 Abnormal S [facility] Comment on above: . Total Protein, Urine Negative Negativ e mg/dL [facility] Comment on above: . Urobilinogen, Urine Normal Normal ( 0-1) mg/dL [facility] Comment on above: . Test Performed by [facility], [address] [place] [id number] [place] [address] LAB [facility] ABO, External Resulton 12-27 ABO, External Result O [facility] Work Phone: [phone] C. Trachomatis, External Res [facility] 12-27-2020 C. Trachomatis, External Result Negative [facility] Work Phone: [phone] HIV, External Resulton 12-27 HIV, External Result Non-Reactive [facility] Work Phone: [phone] Hepatitis B, External Result on 12-27-2020 Hep B, External Result Negative [facility] Work Phone: [phone] N. Gonorrhoeae, External Res [facility] 12-27-2020 N. Gonorrhoeae, External Result Negative [facility] Work Phone: No Panel Informationon 12-27 [facility] [...] 06:45-0400 Body temperature 98.42 [degF] Bruno Jara [facility] 11-29-2023 06:45-0400 Diastolic blood pressure 66 mm[Hg] Bruno Estefani [facility] 11-29-2023 06:45-0400 Heart rate 102 /min Bruno Estefani [facility] 11-29-2023 06:45-0400 Respiratory rate 20 /min Bruno Jara [facility] 11-29-2023 06:45-0400 SaO2% (BldA) [Mass fraction] 100 % Bruno Estefani [facility] 11-29-2023 06:45-0400 Systolic blood pressure 105 mm[Hg] Bruno Estefani [facility] 11-26-2023 10:30-0400 Body temperature 98.06 [degF] Justo Arias [facility] 11-26-2023 10:30-0400 Diastolic blood pressure 88 mm[Hg] Justo Ricoe [facility] 11-26-2023 10:30-0400 Heart rate 81 /min Justo Ricoe [facility] 11-26-2023 10:30-0400 Respiratory rate 18 /min Justo Arias [facility] 11-26-2023 10:30-0400 SaO2% (BldA) [Mass fraction] 100 % Justo Arias [facility] 11-26-2023 10:30-0400 Systolic blood pressure 136 mm[Hg] Justo Arias [facility] 11-24-2023 11:55-0400 Body temperature 98.6 [degF] Justo Arias [facility] 11-24-2023 11:55-0400 Diastolic blood pressure 85 mm[Hg] Justo Arias [facility] 11-24-2023 11:55-0400 Heart rate 91 /min Justo Arias [facility] 11-24-2023 11:55-0400 Respiratory rate 16 /min Justo Arias [facility] 11-24-2023 11:55-0400 SaO2% (BldA) [Mass fraction] 100 % Justo Arias [facility] 11-24-2023 11:55-0400 Systolic blood pressure 137 mm[Hg] Justo Arias [facility] 11-24-2023 11:11-0400 Blood Pressure Location Fatoumata Bon [facility] 11-24-2023 11:11-0400 Diastolic blood pressure 73 mm[Hg] Fatoumata Gooden [facility] 11-24-2023 11:11-0400 Heart rate 78 /min Fatoumata Gooden [facility] 11-24-2023 11:11-0400 Respiratory rate 16 /min Fatoumata Gooden [facility] 11-24-2023 11:11-0400 SaO2% (BldA) [Mass fraction] 99 % Fatoumata Gooden [facility] 11-24-2023 11:11-0400 Systolic blood pressure 124 mm[Hg] Fatoumata Gooden [facility] 11-05-2023 09:01-0400 Heart rate 89 /min Guille Suman [facility] 11-05-2023 09:01-0400 Respiratory rate 16 /min Guille Suman [facility] 11-05-2023 09:01-0400 SaO2% (BldA) [Mass fraction] 98 % Guille Suman [facility] 11-05-2023 08:35-0400 Diastolic blood pressure 80 mm[Hg] Guille Suman [facility] 11-05-2023 08:35-0400 Heart rate 89 /min Guille Suman [facility] 11-05-2023 08:35-0400 Hourly Rounding Guille Suman [facility] 11-05-2023 08:35-0400 Mean blood pressure 92 mm[Hg] Guille Suman [facility] 11-05-2023 08:35-0400 Respiratory rate 16 /min Guille Suman [facility] 11-05-2023 08:35-0400 SaO2% (BldA) [Mass fraction] 99 % Guille Suman [facility] 11-05-2023 08:35-0400 Systolic blood pressure 116 mm[Hg] Guille Suman [facility] 11-05-2023 08:00-0400 Diastolic blood pressure 66 mm[Hg] Guille Suman [facility] 11-05-2023 08:00-0400 Heart rate 82 /min Guille Suman [facility] 11-05-2023 08:00-0400 Mean blood pressure 82 mm[Hg] Guille Suman [facility] 11-05-2023 08:00-0400 Respiratory rate 14 /min Guille Suman [facility] 11-05-2023 08:00-0400 Systolic blood pressure 114 mm[Hg] Guille Suman [facility] 11-05-2023 07:30-0400 Diastolic blood pressure 76 mm[Hg] Guille Suman [facility] 11-05-2023 07:30-0400 Mean blood pressure 91 mm[Hg] Guille Suman [facility] 11-05-2023 07:30-0400 Systolic blood pressure 120 mm[Hg] Guille Suman [facility] 11-05-2023 07:11-0400 Hourly Rounding Guille Suman [facility] Comment on above: Result Comment: denies needs/concerns 11-05-2023 05:00-0400 Blood Pressure Location Guille Suman [facility] 11-05-2023 00:01-0400 Body temperature 98.42 [degF] Guille Suman [facility] 11-05-2023 00:01-0400 Heart rate 78 /min Guille Suman [facility] 2023 15:02-0400 Body height 160.02 cm TI Dean Work Phone: [facility] 2023 15:02-0400 Body temperature 98.1 [degF] JOSEPH-Lawrence Covarrubias Dean Work Phone: [facility] 2023 15:02-0400 Body weight 63.3 kg JOSEPH-Lawrence Dean Work Phone: [facility] 2023 15:02-0400 Diastolic blood pressure 77 mm[Hg] JOSEPH-Lawrence Dean Work Phone: [facility] 2023 15:02-0400 Heart rate 85 /min JOSEPH-Lawrence Dean Work Phone: [facility] 2023 15:02-0400 Respiratory rate 19 /min JOSEPH-Lawrence Dean Work Phone: [facility] 2023 15:02-0400 SaO2% (BldA) [Mass fraction] 100 % TI Dean Work Phone: [facility] 2023 15:02-0400 Systolic blood pressure 130 mm[Hg] JOSEPH-Lawrence Dean Work Phone: [facility] 2023 13:58-0400 Blood Pressure Location Suman Myles [facility] 2023 13:58-0400 Body temperature 98.6 [degF] Suman Myles [facility] 2023 13:58-0400 Diastolic blood pressure 70 mm[Hg] Suman Myles [facility] 2023 13:58-0400 Heart rate 101 /min Suman Myles [facility] 2023 13:58-0400 SaO2% (BldA) [Mass fraction] 100 % Suman Myles [facility] 2023 13:58-0400 Systolic blood pressure 136 mm[Hg] Suman Myles [facility] 11-01-2023 19:36-0400 Body temperature 98.6 [degF] Bruno Estefani [facility] 11-01-2023 19:36-0400 Diastolic blood pressure 83 mm[Hg] Bruno Estefani [facility] 11-01-2023 19:36-0400 Heart rate 93 /min Bruno Estefani [facility] 11-01-2023 19:36-0400 Respiratory rate 17 /min Bruno Estefani [facility] 11-01-2023 19:36-0400 SaO2% (BldA) [Mass fraction] 100 % Bruno Estefani [facility] 11-01-2023 19:36-0400 Systolic blood pressure 140 mm[Hg] Bruno Estefani [facility] 10-31-2023 12:44-0400 Body temperature 98.24 [degF] Justo Arias [facility] 10-31-2023 12:44-0400 Diastolic blood pressure 73 mm[Hg] Justo Ricoe [facility] 10-31-2023 12:44-0400 Heart rate 95 /min Justo Hugo [facility] 10-31-2023 12:44-0400 Respiratory rate 18 /min Justo Ricoe [facility] 10-31-2023 12:44-0400 SaO2% (BldA) [Mass fraction] 99 % Justo Ricoe [facility] 10-31-2023 12:44-0400 Systolic blood pressure 130 mm[Hg] Justo Hugo [facility] 10-30-2023 16:12-0400 Body temperature 98.24 [degF] [facility] 10-30-2023 16:12-0400 Diastolic blood pressure 96 mm[Hg] [facility] 10-30-2023 16:12-0400 Heart rate 76 /min [facility] 10-30-2023 16:12-0400 Respiratory rate 16 /min [facility] 10-30-2023 16:12-0400 SaO2% (BldA) [Mass fraction] 100 % [facility] 10-30-2023 16:12-0400 Systolic blood pressure 131 mm[Hg] [facility] 10-25-2023 13:42-0400 Body temperature 98.42 [degF] Darren Dami [facility] 10-25-2023 13:42-0400 Diastolic blood pressure 77 mm[Hg] Darren Dami [facility] 10-25-2023 13:42-0400 Heart rate 79 /min Darren Lomax [facility] 10-25-2023 13:42-0400 Respiratory rate 16 /min Darren Lomax [facility] 10-25-2023 13:42-0400 SaO2% (BldA) [Mass fraction] 100 % Darren Dami [facility] 10-25-2023 13:42-0400 Systolic blood pressure 119 mm[Hg] Darren Dami [facility] 10-21-2023 18:16-0400 Body temperature 98.24 [degF] Justo Arias [facility] 10-21-2023 18:16-0400 Diastolic blood pressure 66 mm[Hg] Justo Arias [facility] 10-21-2023 18:16-0400 Heart rate 64 /min Justo Arias [facility] 10-21-2023 18:16-0400 Respiratory rate 18 /min Justo Arias [facility] 10-21-2023 18:16-0400 SaO2% (BldA) [Mass fraction] 98 % Justo Arias [facility] 10-21-2023 18:16-0400 Systolic blood pressure 133 mm[Hg] Justo Arias [facility] 10-19-2023 12:56-0400 Body temperature 98.78 [degF] [facility] 10-19-2023 12:56-0400 Diastolic blood pressure 73 mm[Hg] [facility] 10-19-2023 12:56-0400 Heart rate 74 /min [facility] 10-19-2023 12:56-0400 Respiratory rate 18 /min [facility] 10-19-2023 12:56-0400 SaO2% (BldA) [Mass fraction] 94 % [facility] 10-19-2023 12:56-0400 Systolic blood pressure 125 mm[Hg] [facility] 10-17-2023 17:33-0400 Body temperature 97.7 [degF] Darren Lomax [facility] 10-17-2023 17:33-0400 Diastolic blood pressure 83 mm[Hg] Darren Lomax [facility] 10-17-2023 17:33-0400 Heart rate 75 /min Darren Lomax [facility] 10-17-2023 17:33-0400 Respiratory rate 18 /min Darren Lomax [facility] 10-17-2023 17:33-0400 SaO2% (BldA) [Mass fraction] 100 % Darren Lomax [facility] 10-17-2023 17:33-0400 Systolic blood pressure 126 mm[Hg] Darren Lomax [facility] 10-05-2023 19:24-0400 Body temperature 98.42 [degF] Bruno Estefani [facility] 10-05-2023 19:24-0400 Diastolic blood pressure 73 mm[Hg] Bruno Estefani [facility] 10-05-2023 19:24-0400 Heart rate 107 /min Bruno Estefani [facility] 10-05-2023 19:24-0400 Respiratory rate 18 /min Bruno Estefani [facility] 10-05-2023 19:24-0400 SaO2% (BldA) [Mass fraction] 98 % Bruno Estefani [facility] 10-05-2023 19:24-0400 Systolic blood pressure 116 mm[Hg] Bruno Estefani [facility] 10-02-2023 07:47-0400 Diastolic blood pressure 69 mm[Hg] Kaylinn Dokken [facility] 10-02-2023 07:47-0400 Heart rate 93 /min Kaylinn Dokken [facility] 10-02-2023 07:47-0400 Mean blood pressure 86 mm[Hg] Kaylinn Dokken [facility] 10-02-2023 07:47-0400 Respiratory rate 18 /min Kaylinn Dokken [facility] 10-02-2023 07:47-0400 SaO2% (BldA) [Mass fraction] 99 % Kaylinn Dokken [facility] 10-02-2023 07:47-0400 Systolic blood pressure 119 mm[Hg] Kaylinn Dokken [facility] 10-02-2023 06:59-0400 Diastolic blood pressure 70 mm[Hg] Kaylinn Dokken [facility] 10-02-2023 06:59-0400 Heart rate 81 /min Kaylinn Dokken [facility] 10-02-2023 06:59-0400 Mean blood pressure 85 mm[Hg] Kaylinn Dokken [facility] 10-02-2023 06:59-0400 Respiratory rate 16 /min Kaylinn Dokken [facility] 10-02-2023 06:59-0400 SaO2% (BldA) [Mass fraction] 97 % Kaylinn Dokken [facility] 10-02-2023 06:59-0400 Systolic blood pressure 114 mm[Hg] Kaylinn Dokken [facility] 10-02-2023 06:28-0400 Body temperature 98.06 [degF] Kaylinn Dokken [facility] 10-02-2023 06:28-0400 Diastolic blood pressure 72 mm[Hg] Kaylinn Dokken [facility] 10-02-2023 06:28-0400 Heart rate 98 /min Kaylinn Dokken [facility] 10-02-2023 06:28-0400 Respiratory rate 18 /min Vivian Ochoa [facility] 10-02-2023 06:28-0400 SaO2% (BldA) [Mass fraction] 99 % Vivian Ochoa [facility] 10-02-2023 06:28-0400 Systolic blood pressure 142 mm[Hg] Vivian Ochoa [facility] 09-27-2023 11:34-0400 Body height 160.02 cm PA-C Satish Dean Work Phone: [facility] 09-27-2023 11:34-0400 Body temperature 98 [degF] PA-C Satish Dean Work Phone: [facility] 09-27-2023 11:34-0400 Body weight 65 kg PA-C Satish Dean Work Phone: [facility] 09-27-2023 11:34-0400 Diastolic blood pressure 74 mm[Hg] PA-C Satish Dean Work Phone: [facility] 09-27-2023 11:34-0400 Heart rate 79 /min PA-C Satish Dean Work Phone: [facility] 09-27-2023 11:34-0400 Respiratory rate 20 /min PA-C Satish Dean Work Phone: [facility] 09-27-2023 11:34-0400 SaO2% (BldA) [Mass fraction] 100 % PA-C Satish Dean Work Phone: [facility] 09-27-2023 11:34-0400 Systolic blood pressure 133 mm[Hg] PA-C Satish Dean Work Phone: [facility] 09-27-2023 10:31-0400 Body temperature 98.6 [degF] Darren Lomax [facility] 09-27-2023 10:31-0400 Diastolic blood pressure 76 mm[Hg] Darren Lomax [facility] 09-27-2023 10:31-0400 Heart rate 80 /min Darren Lomax [facility] 09-27-2023 10:31-0400 Respiratory rate 16 /min Darren Dami [facility] 09-27-2023 10:31-0400 SaO2% (BldA) [Mass fraction] 100 % Darren Lomax [facility] 09-27-2023 10:31-0400 Systolic blood pressure 127 mm[Hg] Darren Lomax [facility] 09-26-2023 15:20-0400 Body temperature 98.06 [degF] Darren Lomax [facility] 09-26-2023 15:20-0400 Diastolic blood pressure 80 mm[Hg] Darren Lomax [facility] 09-26-2023 15:20-0400 Heart rate 78 /min Darren Lomax [facility] 09-26-2023 15:20-0400 Respiratory rate 18 /min Darren Lomax [facility] 09-26-2023 15:20-0400 SaO2% (BldA) [Mass fraction] 100 % Darren Lomax [facility] 09-26-2023 15:20-0400 Systolic blood pressure 137 mm[Hg] Darren Dami [facility] 09-24-2023 15:33-0400 Body temperature 98.24 [degF] Guille Will [facility] 09-24-2023 15:33-0400 Diastolic blood pressure 78 mm[Hg] Guille Suman [facility] 09-24-2023 15:33-0400 Heart rate 98 /min Guille Suman [facility] 09-24-2023 15:33-0400 Respiratory rate 18 /min Guille Suman [facility] 09-24-2023 15:33-0400 SaO2% (BldA) [Mass fraction] 100 % Guille Suman [facility] 09-24-2023 15:33-0400 Systolic blood pressure 116 mm[Hg] Guille Suman [facility] 09-20-2023 15:30-0400 Diastolic blood pressure 75 mm[Hg] Justo Hugo [facility] 09-20-2023 15:30-0400 Heart rate 98 /min Justo Hugo [facility] 09-20-2023 15:30-0400 Mean blood pressure 91 mm[Hg] Justo Hugo [facility] 09-20-2023 15:30-0400 Respiratory rate 18 /min Justo Uhgo [facility] 09-20-2023 15:30-0400 SaO2% (BldA) [Mass fraction] 100 % Justo Hugo [facility] 09-20-2023 15:30-0400 Systolic blood pressure 124 mm[Hg] Justo Hugo [facility] 09-20-2023 14:30-0400 Diastolic blood pressure 73 mm[Hg] Justo Hugo [facility] 09-20-2023 14:30-0400 Heart rate 80 /min Justo Hugo [facility] 09-20-2023 14:30-0400 Mean blood pressure 93 mm[Hg] Justo Hugo [facility] 09-20-2023 14:30-0400 Respiratory rate 18 /min Justo Hugo [facility] 09-20-2023 14:30-0400 SaO2% (BldA) [Mass fraction] 100 % Justo Hugo [facility] 09-20-2023 14:30-0400 Systolic blood pressure 132 mm[Hg] Justo Hugo [facility] 09-20-2023 13:30-0400 Diastolic blood pressure 67 mm[Hg] Justo Hugo [facility] 09-20-2023 13:30-0400 Heart rate 76 /min Justo Hugo [facility] 09-20-2023 13:30-0400 Mean blood pressure 82 mm[Hg] Justo Hugo [facility] 09-20-2023 13:30-0400 Respiratory rate 18 /min Justo Hugo [facility] 09-20-2023 13:30-0400 SaO2% (BldA) [Mass fraction] 100 % Justo Hugo [facility] 09-20-2023 13:30-0400 Systolic blood pressure 112 mm[Hg] Justo Hugo [facility] 09-20-2023 12:33-0400 Body temperature 99.68 [degF] Justo Hugo [facility] 09-20-2023 12:33-0400 Heart rate 81 /min Justo Hugo [facility] 05-22-2024 05:08-0400 Diastolic blood pressure 65 mm[Hg] Kaylinn Dokken [facility] 09-17-2023 05:08-0400 Heart rate 94 /min Kaylinn Dokken [facility] 09-17-2023 05:08-0400 Mean blood pressure 79 mm[Hg] Kaylinn Dokken [facility] 09-17-2023 05:08-0400 Respiratory rate 17 /min Kaylinn Dokken [facility] 09-17-2023 05:08-0400 SaO2% (BldA) [Mass fraction] 99 % Kaylinn Dokken [facility] 09-17-2023 05:08-0400 Systolic blood pressure 108 mm[Hg] Kaylinn Dokken [facility] 09-17-2023 04:31-0400 Body temperature 98.42 [degF] Kaylinn Dokken [facility] 09-17-2023 04:31-0400 Diastolic blood pressure 76 mm[Hg] Kaylinn Dokken [facility] 09-17-2023 04:31-0400 Heart rate 94 /min Kaylinn Dokken [facility] 09-17-2023 04:31-0400 Respiratory rate 16 /min Kaylinn Dokken [facility] 09-17-2023 04:31-0400 SaO2% (BldA) [Mass fraction] 99 % Kaylinn Dokken [facility] 09-17-2023 04:31-0400 Systolic blood pressure 134 mm[Hg] Kaylinn Dokken [facility] 09-15-2023 08:39-0400 Blood Pressure Location Fatoumata Gooden [facility] 09-15-2023 08:39-0400 Diastolic blood pressure 76 mm[Hg] Fatoumata Gooden [facility] 09-15-2023 08:39-0400 Heart rate 106 /min Fatoumata Gooden [facility] 09-15-2023 08:39-0400 SaO2% (BldA) [Mass fraction] 99 % Fatoumata Gooden [facility] 09-15-2023 08:39-0400 Systolic blood pressure 110 mm[Hg] Fatoumata Gooden [facility] 09-14-2023 11:08-0400 Body temperature 98.24 [degF] Darren Lomax [facility] 09-14-2023 11:08-0400 Diastolic blood pressure 80 mm[Hg] Darren Dami [facility] 09-14-2023 11:08-0400 Heart rate 129 /min Darren Dami [facility] 09-14-2023 11:08-0400 Respiratory rate 16 /min Darren Dami [facility] 09-14-2023 11:08-0400 SaO2% (BldA) [Mass fraction] 98 % Darren Dami [facility] 09-14-2023 11:08-0400 Systolic blood pressure 120 mm[Hg] Darren Dami [facility] 09-04-2023 12:01-0400 Body height 160.02 cm IT Dean Work Phone: [facility] 09-04-2023 12:01-0400 Body temperature 98 [degF] PA-C Satish Dean Work Phone: [facility] 09-04-2023 12:01-0400 Body weight 66.7 kg PA-C Satish Dena Work Phone: [facility] 09-04-2023 12:01-0400 Diastolic blood pressure 70 mm[Hg] PA-C Satish Dean Work Phone: [facility] 09-04-2023 12:01-0400 Heart rate 72 /min PA-C Satish Dean Work Phone: [facility] 09-04-2023 12:01-0400 Respiratory rate 17 /min PA-C Satish Dean Work Phone: [facility] 09-04-2023 12:01-0400 SaO2% (BldA) [Mass fraction] 100 % PA-C Satishsheela Dean Work Phone: [facility] 09-04-2023 12:01-0400 Systolic blood pressure 119 mm[Hg] PA-C Satish Dean Work Phone: [facility] 08-20-2023 15:04-0400 Body temperature 98.5 [degF] PA-C Satishsheela Dean Work Phone: [facility] 08-20-2023 15:04-0400 Diastolic blood pressure 70 mm[Hg] PA-C Satish Edan Work Phone: [facility] 08-20-2023 15:04-0400 Heart rate 72 /min PA-C Satish Dean Work Phone: [facility] 08-20-2023 15:04-0400 Respiratory rate 18 /min PA-C Satish Dean Work Phone: [facility] 08-20-2023 15:04-0400 SaO2% (BldA) [Mass fraction] 100 % PA-C Satish Dean Work Phone: [facility] 08-20-2023 15:04-0400 Systolic blood pressure 119 mm[Hg] JOSEPHPaulo Dean Work Phone: [facility] 08-20-2023 12:52-0400 Body height 160.02 cm JOSEPHPaulo Dean Work Phone: [facility] 08-20-2023 12:52-0400 Body weight 64.3 kg JOSEPHPaulo Dean Work Phone: [facility] 08-18-2023 10:29-0400 Body temperature 98.42 [degF] Justo Arias [facility] 08-18-2023 10:29-0400 Diastolic blood pressure 69 mm[Hg] Justo Arias [facility] 08-18-2023 10:29-0400 Heart rate 82 /min Justo Arias [facility] 08-18-2023 10:29-0400 Respiratory rate 18 /min Justo Arias [facility] 08-18-2023 10:29-0400 SaO2% (BldA) [Mass fraction] 99 % Justo Arias [facility] 08-18-2023 10:29-0400 Systolic blood pressure 119 mm[Hg] Justo Arias [facility] 08-14-2023 16:56-0400 Diastolic blood pressure 81 mm[Hg] [facility] 08-14-2023 16:56-0400 Heart rate 89 /min [facility] 08-14-2023 16:56-0400 Mean blood pressure 101 mm[Hg] [facility] 08-14-2023 16:56-0400 Respiratory rate 15 /min [facility] 08-14-2023 16:56-0400 SaO2% (BldA) [Mass fraction] 98 % [facility] 08-14-2023 16:56-0400 Systolic blood pressure 141 mm[Hg] [facility] 08-14-2023 14:42-0400 Body temperature 98.24 [degF] [facility] 08-14-2023 14:42-0400 Diastolic blood pressure 81 mm[Hg] [facility] 08-14-2023 14:42-0400 Heart rate 84 /min [facility] 08-14-2023 14:42-0400 Respiratory rate 18 /min [facility] 08-14-2023 14:42-0400 SaO2% (BldA) [Mass fraction] 98 % [facility] 08-14-2023 14:42-0400 Systolic blood pressure 146 mm[Hg] [facility] 08-10-2023 11:36-0400 Body temperature 98.6 [degF] [facility] 08-10-2023 11:36-0400 Diastolic blood pressure 108 mm[Hg] [facility] 08-10-2023 11:36-0400 Heart rate 115 /min [facility] 08-10-2023 11:36-0400 Respiratory rate 16 /min [facility] 08-10-2023 11:36-0400 SaO2% (BldA) [Mass fraction] 100 % [facility] 08-10-2023 11:36-0400 Systolic blood pressure 140 mm[Hg] [facility] 08-05-2023 18:10-0400 Diastolic blood pressure 73 mm[Hg] TI eDan Work Phone: [facility] 08-05-2023 18:10-0400 Heart rate 87 /min TI Dean Work Phone: [facility] 08-05-2023 18:10-0400 Respiratory rate 18 /min TI Covarrubias Dean Work Phone: [facility] 08-05-2023 18:10-0400 SaO2% (BldA) [Mass fraction] 98 % TI Covarrubias Dean Work Phone: [facility] 08-05-2023 18:10-0400 Systolic blood pressure 130 mm[Hg] TI Covarrubias Dean Work Phone: [facility] 08-05-2023 16:00-0400 Body height 160.02 cm JOSEPHMairaLawrence Covarrubias Dean Work Phone: [facility] 08-05-2023 16:00-0400 Body temperature 98.1 [degF] TI Dean Work Phone: [facility] 08-05-2023 16:00-0400 Body weight 65.7 kg TI Dean Work Phone: [facility] 07-30-2023 13:07-0400 Blood Pressure Location LANETTE LUI [facility] 07-30-2023 13:07-0400 Body temperature 98.42 [degF] LANETTE LUI [facility] 07-30-2023 13:07-0400 Diastolic blood pressure 82 mm[Hg] LANETTE LUI [facility] 07-30-2023 13:07-0400 Heart rate 91 /min LANETTE LUI [facility] 07-30-2023 13:07-0400 SaO2% (BldA) [Mass fraction] 98 % LANETTE LUI [facility] 07-30-2023 13:07-0400 Systolic blood pressure 120 mm[Hg] LANETTE LUI [facility] 07-26-2023 12:12-0400 Diastolic blood pressure 69 mm[Hg] Darren Dami [facility] 07-26-2023 12:12-0400 Heart rate 93 /min Darren Dami [facility] 07-26-2023 12:12-0400 Mean blood pressure 89 mm[Hg] Darren Dami [facility] 07-26-2023 12:12-0400 Respiratory rate 14 /min Darren Dami [facility] 07-26-2023 12:12-0400 SaO2% (BldA) [Mass fraction] 100 % Darren Dami [facility] 07-26-2023 12:12-0400 Systolic blood pressure 128 mm[Hg] Darren Dami [facility] 07-26-2023 11:15-0400 Diastolic blood pressure 60 mm[Hg] Darren Dami [facility] 07-26-2023 11:15-0400 Heart rate 89 /min Darren Dami [facility] 07-26-2023 11:15-0400 Mean blood pressure 80 mm[Hg] Darren Dami [facility] 07-26-2023 11:15-0400 Respiratory rate 16 /min Darren Dami [facility] 07-26-2023 11:15-0400 SaO2% (BldA) [Mass fraction] 100 % Darren Dami [facility] 07-26-2023 11:15-0400 Systolic blood pressure 120 mm[Hg] Darren Dami [facility] 07-26-2023 10:30-0400 Diastolic blood pressure 73 mm[Hg] Darren Lomax [facility] 07-26-2023 10:30-0400 Heart rate 83 /min Darren Lomax [facility] 07-26-2023 10:30-0400 Mean blood pressure 87 mm[Hg] Darren Dami [facility] 07-26-2023 10:30-0400 Respiratory rate 20 /min Darren Lomax [facility] 07-26-2023 10:30-0400 SaO2% (BldA) [Mass fraction] 100 % Darrenhao Lomax [facility] 07-26-2023 10:30-0400 Systolic blood pressure 114 mm[Hg] Darren Lomax [facility] 07-26-2023 09:40-0400 Body temperature 98.78 [degF] Darren Lomax [facility] 07-26-2023 09:40-0400 Heart rate 85 /min Darren Lomax [facility] 07-26-2023 09:40-0400 Respiratory rate 16 /min Darrenhao Lomax [facility] 07-19-2023 10:59-0400 Diastolic blood pressure 73 mm[Hg] [facility] 07-19-2023 10:59-0400 Heart rate 102 /min [facility] 07-19-2023 10:59-0400 Mean blood pressure 86 mm[Hg] [facility] 07-19-2023 10:59-0400 Respiratory rate 16 /min [facility] 07-19-2023 10:59-0400 SaO2% (BldA) [Mass fraction] 100 % [facility] 07-19-2023 10:59-0400 Systolic blood pressure 112 mm[Hg] [facility] 07-19-2023 10:32-0400 SaO2% (BldA) [Mass fraction] 100 % [facility] 07-19-2023 09:30-0400 Body temperature 98.06 [degF] [facility] 07-19-2023 09:30-0400 Diastolic blood pressure 75 mm[Hg] [facility] 07-19-2023 09:30-0400 Heart rate 114 /min [facility] 07-19-2023 09:30-0400 Respiratory rate 16 /min [facility] 07-19-2023 09:30-0400 SaO2% (BldA) [Mass fraction] 100 % [facility] 07-19-2023 09:30-0400 Systolic blood pressure 130 mm[Hg] [facility] 07-12-2023 19:49-0400 Diastolic blood pressure 76 mm[Hg] Justo Ricoe [facility] 07-12-2023 19:49-0400 Heart rate 112 /min Justo Ricoe [facility] 07-12-2023 19:49-0400 Mean blood pressure 95 mm[Hg] Justo Ricoe [facility] 07-12-2023 19:49-0400 Respiratory rate 20 /min Justo Ricoe [facility] 07-12-2023 19:49-0400 SaO2% (BldA) [Mass fraction] 98 % Justo Ricoe [facility] 07-12-2023 19:49-0400 Systolic blood pressure 132 mm[Hg] Justo Ricoe [facility] 07-12-2023 19:29-0400 Diastolic blood pressure 65 mm[Hg] Justo Arias [facility] 07-12-2023 19:29-0400 Heart rate 99 /min Justo Ricoe [facility] 07-12-2023 19:29-0400 Mean blood pressure 81 mm[Hg] Justo Ricoe [facility] 07-12-2023 19:29-0400 Respiratory rate 8 /min Justo Arias [facility] 07-12-2023 19:29-0400 SaO2% (BldA) [Mass fraction] 99 % Justo Ricoe [facility] 07-12-2023 19:29-0400 Systolic blood pressure 113 mm[Hg] Justo Ricoe [facility] 07-12-2023 17:38-0400 Body temperature 98.6 [degF] Justo Ricoe [facility] 07-12-2023 17:38-0400 Diastolic blood pressure 72 mm[Hg] Justo Arias [facility] 07-12-2023 17:38-0400 Heart rate 125 /min Justo Arias [facility] 07-12-2023 17:38-0400 Respiratory rate 16 /min Justo Ricoe [facility] 07-12-2023 17:38-0400 SaO2% (BldA) [Mass fraction] 98 % Justo Ricoe [facility] 07-12-2023 17:38-0400 Systolic blood pressure 129 mm[Hg] Justo Ricoe [facility] 07-09-2023 16:21-0400 Blood Pressure Location Amos Castellon [facility] 07-09-2023 16:21-0400 Body temperature 98.42 [degF] Amos Castellon [facility] 07-09-2023 16:21-0400 Diastolic blood pressure 74 mm[Hg] Amos Castellon [facility] 07-09-2023 16:21-0400 Heart rate 86 /min Amos Castellon [facility] 07-09-2023 16:21-0400 SaO2% (BldA) [Mass fraction] 99 % Amos Castellon [facility] 07-09-2023 16:21-0400 Systolic blood pressure 122 mm[Hg] Amos Castellon [facility] 07-07-2023 13:05-0400 Diastolic blood pressure 68 mm[Hg] Justo Arias [facility] 07-07-2023 13:05-0400 Heart rate 84 /min Justo Arias [facility] 07-07-2023 13:05-0400 Mean blood pressure 92 mm[Hg] Justo Ricoe [facility] 07-07-2023 13:05-0400 Respiratory rate 16 /min Justo Ricoe [facility] 07-07-2023 13:05-0400 SaO2% (BldA) [Mass fraction] 98 % Justo Ricoe [facility] 07-07-2023 13:05-0400 Systolic blood pressure 139 mm[Hg] Justo Hugo [facility] 07-07-2023 12:02-0400 Heart rate 80 /min Justo Arias [facility] 07-07-2023 11:09-0400 Body temperature 99.32 [degF] Justo Arias [facility] 07-07-2023 11:09-0400 Diastolic blood pressure 60 mm[Hg] Justo Arias [facility] 07-07-2023 11:09-0400 Heart rate 106 /min Justo Arias [facility] 07-07-2023 11:09-0400 Respiratory rate 16 /min Justo Arias [facility] 07-07-2023 11:09-0400 SaO2% (BldA) [Mass fraction] 100 % Justo Arias [facility] 07-07-2023 11:09-0400 Systolic blood pressure 129 mm[Hg] Justo Arias [facility] 07-07-2023 10:04-0400 Blood Pressure Location LANETTE [employer] [facility] 07-07-2023 10:04-0400 Body temperature 98.24 [degF] LANETTE LUI [facility] 07-07-2023 10:04-0400 Diastolic blood pressure 73 mm[Hg] LANETTE LUI [facility] 07-07-2023 10:04-0400 Heart rate 88 /min LANETTE LUI [facility] 07-07-2023 10:04-0400 SaO2% (BldA) [Mass fraction] 99 % LANETTE LUI [facility] 07-07-2023 10:04-0400 Systolic blood pressure 117 mm[Hg] LANETTE LUI [facility] 06-29-2023 08:20-0500 Diastolic blood pressure 65 mm[Hg] Bruno Estefani [facility] 06-29-2023 08:20-0500 Heart rate 106 /min Bruno Estefani [facility] 06-29-2023 08:20-0500 Mean blood pressure 79 mm[Hg] Bruno Estefani [facility] 06-29-2023 08:20-0500 Respiratory rate 16 /min Bruno Estefani [facility] 06-29-2023 08:20-0500 SaO2% (BldA) [Mass fraction] 98 % Bruno Estefani [facility] 06-29-2023 08:20-0500 Systolic blood pressure 106 mm[Hg] Bruno Estefani [facility] 06-29-2023 07:16-0500 Diastolic blood pressure 67 mm[Hg] Bruno Estefani [facility] 06-29-2023 07:16-0500 Heart rate 91 /min Bruno Estefani [facility] 06-29-2023 07:16-0500 Mean blood pressure 80 mm[Hg] Bruno Estefani [facility] 06-29-2023 07:16-0500 Respiratory rate 15 /min Bruno Estefani [facility] 06-29-2023 07:16-0500 SaO2% (BldA) [Mass fraction] 98 % Bruno Estefani [facility] 06-29-2023 07:16-0500 Systolic blood pressure 106 mm[Hg] Bruno Estefani [facility] 06-29-2023 06:18-0500 Body temperature 98.78 [degF] Bruno Jara [facility] 06-29-2023 06:18-0500 Diastolic blood pressure 66 mm[Hg] Bruno Wahlner [facility] 06-29-2023 06:18-0500 Heart rate 104 /min Bruno Wahlner [facility] 06-29-2023 06:18-0500 Respiratory rate 20 /min Bruno Estefani [facility] 06-29-2023 06:18-0500 SaO2% (BldA) [Mass fraction] 100 % Bruno Jara [facility] 06-29-2023 06:18-0500 Systolic blood pressure 114 mm[Hg] Bruno Jara [facility] 06-14-2023 08:51-0500 Body temperature 98.24 [degF] Justo Arias [facility] 06-14-2023 08:51-0500 Diastolic blood pressure 65 mm[Hg] Justo Hugo [facility] 06-14-2023 08:51-0500 Heart rate 84 /min Justo Hugo [facility] 06-14-2023 08:51-0500 Respiratory rate 16 /min Justo Hugo [facility] 06-14-2023 08:51-0500 SaO2% (BldA) [Mass fraction] 100 % Justo Hugo [facility] 06-14-2023 08:51-0500 Systolic blood pressure 123 mm[Hg] Justo Hugo [facility] 05-31-2023 11:17-0500 Diastolic blood pressure 74 mm[Hg] [facility] 05-31-2023 11:17-0500 Heart rate 104 /min [facility] 05-31-2023 11:17-0500 Mean blood pressure 90 mm[Hg] [facility] 05-31-2023 11:17-0500 Respiratory rate 16 /min [facility] 05-31-2023 11:17-0500 SaO2% (BldA) [Mass fraction] 100 % [facility] 05-31-2023 11:17-0500 Systolic blood pressure 123 mm[Hg] [facility] 05-31-2023 10:59-0500 Hourly Rounding [facility] 05-31-2023 10:59-0500 Promise to Return [facility] 05-31-2023 10:59-0500 SaO2% (BldA) [Mass fraction] 99 % [facility] 05-31-2023 10:30-0500 Diastolic blood pressure 69 mm[Hg] [facility] 05-31-2023 10:30-0500 Heart rate 123 /min [facility] 05-31-2023 10:30-0500 Mean blood pressure 84 mm[Hg] [facility] 05-31-2023 10:30-0500 Respiratory rate 16 /min [facility] 05-31-2023 10:30-0500 SaO2% (BldA) [Mass fraction] 98 % [facility] 05-31-2023 10:30-0500 Systolic blood pressure 113 mm[Hg] [facility] 05-31-2023 09:56-0500 Hourly Rounding [facility] 05-31-2023 09:56-0500 Promise to Return [facility] 05-31-2023 09:30-0500 Diastolic blood pressure 71 mm[Hg] [facility] 05-31-2023 09:30-0500 Heart rate 110 /min [facility] 05-31-2023 09:30-0500 Mean blood pressure 89 mm[Hg] [facility] 05-31-2023 09:30-0500 Respiratory rate 16 /min [facility] 05-31-2023 09:30-0500 Systolic blood pressure 125 mm[Hg] [facility] 05-31-2023 08:10-0500 Body temperature 98.06 [degF] [facility] 05-31-2023 08:10-0500 Heart rate 97 /min [facility] 05-11-2023 11:30-0500 Blood Pressure Location [facility] 05-11-2023 11:30-0500 Body temperature 98.42 [degF] [facility] 05-11-2023 11:30-0500 Diastolic blood pressure 68 mm[Hg] [facility] 05-11-2023 11:30-0500 Heart rate 103 /min [facility] 05-11-2023 11:30-0500 Respiratory rate 18 /min [facility] 05-11-2023 11:30-0500 SaO2% (BldA) [Mass fraction] 99 % [facility] 05-11-2023 11:30-0500 Systolic blood pressure 126 mm[Hg] [facility] 05-03-2023 12:20-0500 Blood Pressure Location Isaac Stephen [facility] 05-03-2023 12:20-0500 Body temperature 98.06 [degF] Isaac Stephen [facility] 05-03-2023 12:20-0500 Diastolic blood pressure 70 mm[Hg] Isaac Stephen [facility] 05-03-2023 12:20-0500 Heart rate 110 /min Isaac Arriagaons [facility] 05-03-2023 12:20-0500 SaO2% (BldA) [Mass fraction] 98 % Isaac Stephen [facility] 05-03-2023 12:20-0500 Systolic blood pressure 114 mm[Hg] Isaac Stephen [facility] 04-15-2023 11:34-0500 Body temperature 98.24 [degF] Justo Arias [facility] 04-15-2023 11:34-0500 Diastolic blood pressure 78 mm[Hg] Justo Arias [facility] 04-15-2023 11:34-0500 Heart rate 98 /min Justo Arias [facility] 04-15-2023 11:34-0500 Respiratory rate 18 /min Justo Arias [facility] 04-15-2023 11:34-0500 SaO2% (BldA) [Mass fraction] 97 % Justo Hugo [facility] 04-15-2023 11:34-0500 Systolic blood pressure 119 mm[Hg] Justo Hugo [facility] 03-31-2023 11:24-0500 Body height 157.5 cm Regi Hunter PA-C Work Phone: [facility] 03-31-2023 11:24-0500 Body mass index (BMI) [Ratio] 23.81 kg/m2 Regi Hunter PA-C Work Phone: [facility] 03-31-2023 11:24-0500 Body weight 59.06 kg Regi Hunter PA-C Work Phone: [facility] 03-30-2023 15:41-0500 Body temperature 98.6 [degF] Guille Will [facility] 03-30-2023 15:41-0500 Diastolic blood pressure 90 mm[Hg] Guille Will [facility] 03-30-2023 15:41-0500 Heart rate 85 /min Guille Will [facility] 03-30-2023 15:41-0500 Respiratory rate 20 /min Guille Will [facility] 03-30-2023 15:41-0500 SaO2% (BldA) [Mass fraction] 100 % Guille Will [facility] 03-30-2023 15:41-0500 Systolic blood pressure 147 mm[Hg] Guille Will [facility] 03-24-2023 11:45-0500 Body temperature 97.7 [degF] Thiago Cuellar MD Work Phone: [facility] 03-24-2023 11:45-0500 Diastolic blood pressure 59 mm[Hg] Thiago Cuellar MD Work Phone: [facility] 03-24-2023 11:45-0500 Heart rate 81 /min Thiago Cuellar MD Work Phone: [facility] 03-24-2023 11:45-0500 Respiratory rate 20 /min Thiago Cuellar MD Work Phone: [facility] 03-24-2023 11:45-0500 SaO2% (BldA) [Mass fraction] 97 % Thiago Cuellar MD Work Phone: [facility] 03-24-2023 11:45-0500 Systolic blood pressure 120 mm[Hg] Thiago Cuellar MD Work Phone: [facility] 03-24-2023 07:14-0500 Body height 157.5 cm Thiago Cuellar MD Work Phone: [facility] 03-24-2023 07:14-0500 Body mass index (BMI) [Ratio] 23.59 kg/m2 Thiago Cuellar MD Work Phone: [facility] 03-24-2023 07:14-0500 Body weight 58.5 kg Thiago Cuellar MD Work Phone: [facility] 03-11-2023 17:03-0500 Blood Pressure Location Amos Castellon [facility] 03-11-2023 17:03-0500 Body temperature 98.96 [degF] Amos Castellon [facility] 03-11-2023 17:03-0500 Diastolic blood pressure 68 mm[Hg] Amos Castellon [facility] 03-11-2023 17:03-0500 Heart rate 82 /min Amos Castellon [facility] 03-11-2023 17:03-0500 SaO2% (BldA) [Mass fraction] 98 % Amos Castellon [facility] 03-11-2023 17:03-0500 Systolic blood pressure 112 mm[Hg] Amos Castellon [facility] 02-06-2023 11:20-0400 Body height 157.5 cm Thiago Cuellar MD Work Phone: [facility] 02-06-2023 11:20-0400 Body mass index (BMI) [Ratio] 24.09 kg/m2 Thiago Cuellar MD Work Phone: [facility] 02-06-2023 11:20-0400 Body weight 59.74 kg Thiago Cuellar MD Work Phone: [facility] 01-24-2023 09:25-0400 Blood Pressure Location Rojelio Spasic [facility] 01-24-2023 09:25-0400 Body temperature 98.6 [degF] Rojelio Spasic [facility] 01-24-2023 09:25-0400 Diastolic blood pressure 70 mm[Hg] Rojelio Spasic [facility] 01-24-2023 09:25-0400 Heart rate 83 /min Rojelio Spasic [facility] 01-24-2023 09:25-0400 SaO2% (BldA) [Mass fraction] 99 % Rojelio Spasic [facility] 01-24-2023 09:25-0400 Systolic blood pressure 122 mm[Hg] Rojelio Spasic [facility] 01-15-2023 13:36-0400 Blood Pressure Location Rojelio Spasic [facility] 01-15-2023 13:36-0400 Body temperature 98.6 [degF] Rojelio Spasic [facility] 01-15-2023 13:36-0400 Diastolic blood pressure 76 mm[Hg] Rojelio Spasic [facility] 09-20-2023 13:36-0400 Heart rate 71 /min Rojelio Spasic [facility] 01-15-2023 13:36-0400 SaO2% (BldA) [Mass fraction] 98 % Rojelio Spasic [facility] 01-15-2023 13:36-0400 Systolic blood pressure 122 mm[Hg] Rojelio Morelossic [facility] 11-09-2022 14:14-0400 Blood Pressure Location Amos Castellon [facility] 11-09-2022 14:14-0400 Body temperature 98.6 [degF] Amos Castellon [facility] 11-09-2022 14:14-0400 Diastolic blood pressure 70 mm[Hg] Amos Castellon [facility] 11-09-2022 14:14-0400 Heart rate 70 /min Amos Castellon [facility] 11-09-2022 14:14-0400 SaO2% (BldA) [Mass fraction] 98 % Amos Castellon [facility] 11-09-2022 14:14-0400 Systolic blood pressure 118 mm[Hg] Amos Castellon [facility] 07-03-2022 08:35-0500 Diastolic blood pressure 88 mm[Hg] [facility] 07-03-2022 08:35-0500 Heart rate 95 /min [facility] 07-03-2022 08:35-0500 Respiratory rate 19 /min [facility] 07-03-2022 08:35-0500 SaO2% (BldA) [Mass fraction] 100 % [facility] 07-03-2022 08:35-0500 Systolic blood pressure 145 mm[Hg] [facility] 06-26-2022 14:19-0500 Blood Pressure Location [facility] 06-26-2022 14:19-0500 Body temperature 98.42 [degF] [facility] 06-26-2022 14:19-0500 Diastolic blood pressure 66 mm[Hg] [facility] 06-26-2022 14:19-0500 Heart rate 107 /min [facility] 06-26-2022 14:19-0500 SaO2% (BldA) [Mass fraction] 98 % [facility] 06-26-2022 14:19-0500 Systolic blood pressure 118 mm[Hg] [facility] 09-14-2021 20:00-0400 Body temperature 98.42 [degF] Darren Lomax [facility] 09-14-2021 20:00-0400 Diastolic blood pressure 64 mm[Hg] Darren Lomax [facility] 09-14-2021 20:00-0400 Heart rate 85 /min Darren Lomax [facility] 09-14-2021 20:00-0400 Mean blood pressure 79 mm[Hg] Darren Lomax [facility] 09-14-2021 20:00-0400 Respiratory rate 17 /min Darren Lomax [facility] 09-14-2021 20:00-0400 Systolic blood pressure 108 mm[Hg] Darren Lomax [facility] 09-14-2021 19:00-0400 Diastolic blood pressure 60 mm[Hg] Darren Lomax [facility] 09-14-2021 19:00-0400 Mean blood pressure 77 mm[Hg] Darren Dami [facility] 09-14-2021 19:00-0400 SaO2% (BldA) [Mass fraction] 99 % Darren Dami [facility] 09-14-2021 19:00-0400 Systolic blood pressure 112 mm[Hg] Darren Dami [facility] 09-14-2021 18:57-0400 SaO2% (BldA) [Mass fraction] 100 % Darren Dami [facility] 09-14-2021 18:56-0400 Hourly Rounding Darren Dami [facility] 09-14-2021 18:56-0400 Promise to Return Darren Dami [facility] 09-14-2021 18:30-0400 Diastolic blood pressure 55 mm[Hg] Darren Dami [facility] 09-14-2021 18:30-0400 Heart rate 79 /min Darren Dami [facility] 09-14-2021 18:30-0400 Mean blood pressure 73 mm[Hg] Darren Dami [facility] 09-14-2021 18:30-0400 Respiratory rate 16 /min Darren Dami [facility] 09-14-2021 18:30-0400 Systolic blood pressure 110 mm[Hg] Darren Dami [facility] 09-14-2021 17:39-0400 Body temperature 98.6 [degF] Darren Dami [facility] 09-14-2021 17:39-0400 Heart rate 93 /min Darren Dami [facility] 09-14-2021 17:39-0400 Respiratory rate 16 /min Darren Lomax [facility] 07-20-2021 11:33-0400 Body temperature 97 [degF] Whitney Barrera MD Work Phone: [facility] 07-20-2021 11:33-0400 Diastolic blood pressure 66 mm[Hg] Whitney Barrera MD Work Phone: [facility] 07-20-2021 11:33-0400 Heart rate 91 /min Whitney Barrera MD Work Phone: [facility] 07-20-2021 11:33-0400 Respiratory rate 18 /min Whitney Barrera MD Work Phone: [facility] 07-20-2021 11:33-0400 SaO2% (BldA) [Mass fraction] 97 % Whitney Barrera MD Work Phone: [facility] 07-20-2021 11:33-0400 Systolic blood pressure 98 mm[Hg] Whitney Barrera MD Work Phone: [facility] 07-19-2021 02:24-0400 Body height 157.5 cm Whitney Barrera MD Work Phone: [facility] 07-19-2021 02:24-0400 Body mass index (BMI) [Ratio] 28.17 kg/m2 Whitney Barrera MD Work Phone: [facility] 07-19-2021 02:24-0400 Body weight 69.85 kg Whitney Barrera MD Work Phone: [facility] Encounters Encounter Date Encounter Type Care Provider Facility Start: 11-29-2023 End: 11-29-2023 Emergency department patient visit Bruno Jara [facility] Start: 11-26-2023 End: 11-26-2023 Emergency department patient visit Justo Arias [facility] Start: 11-24-2023 End: 11-24-2023 ambulatory Ivana Bennett Facility:[facility] Start: 11-24-2023 End: 11-24-2023 Patient encounter procedure Ivana Bennett [facility] Start: 11-24-2023 End: 11-24-2023 Emergency department patient visit Justo Arias [facility] Start: 11-24-2023 End: 11-24-2023 ambulatory Fatoumata PatienceVinh Gooden Facility:[facility] Start: 11-24-2023 End: 11-24-2023 [facility] Start: 11-06-2023 ambulatory APPLIANCE INSTALLER FLORENTIN MORENO Fa cility:[facility] Start: 11-05-2023 ambulatory Fatoumata Gooden Facility: [facility] Start: 11-04-2023 End: 11-05-2023 Emergency department patient visit Guille Will [facility] Start: 11-03-2023 End: 11-04-2023 Pre-admission assessment Fatoumata Gooden [facility] Start: 2023 End: 2023 Emergency department patient visit TI Dean Work Phone: [facility] Work Phone: Start: 2023 End: 2023 ambulatory Suman Myles Facility:[facility] Start: 2023 End: 2023 Patient encounter procedure Suman Myles [facility] Start: 11-01-2023 End: 11-01-2023 Emergency department patient visit Bruno Jara [facility] Start: 10-31-2023 End: 10-31-2023 Emergency department patient visit Justo Arias Facility:[facility] Start: 10-30-2023 End: 10-30-2023 Emergency department patient visit Mary Jane Palm [facility] Start: 10-27-2023 End: 11-28-2023 Pre-admission assessment Cristóbal Granados [facility] Start: 10-25-2023 End: 10-25-2023 Emergency department patient visit Darren Lomax [facility] Start: 10-21-2023 End: 10-21-2023 Emergency department patient visit Justo Arias [facility] Start: 10-19-2023 End: 10-19-2023 [facility]: 10-17-2023 End: 10-17-2023 Emergency department patient visit Darren Lomax [facility] Start: 10-17-2023 End: 10-17-2023 ambulatory LANETTE LUI Facility:[facility] Start: 10-17-2023 End: 10-17-2023 Patient encounter procedure LANETTE LUI [facility] Start: 10-05-2023 End: 10-05-2023 Emergency department patient visit Bruno Jara Facility:[facility] Start: 10-02-2023 End: 10-02-2023 Emergency department patient visit Vivian Ochoa [facility] Start: 09-27-2023 End: 09-27-2023 Emergency department [facility] Dean [facility] Start: 09-26-2023 End: 09-26-2023 Emergency department patient visit Darren Lomax [facility] Start: 09-24-2023 Emergency department patient visit Guille Will Facility:[facility] Start: 09-24-2023 End: 09-24-2023 Emergency department patient visit Guille Will [facility] Start: 09-20-2023 End: 09-20-2023 Emergency department patient visit Justo Arias Facility:[facility] Start: 09-20-2023 End: 09-20-2023 Emergency department patient visit Justo Arias [facility] Start: 09-17-2023 End: 09-17-2023 Emergency department patient visit DO Vivian Ochoa Facility:[facility] Start: 09-17-2023 End: 09-17-2023 Emergency department patient visit Vivian Ochoa [facility] Start: 09-15-2023 End: 09-16-2023 ambulatory XXXX NONE Facility:[facility] Start: 09-15-2023 End: 09-15-2023 Patient encounter procedure Fatoumata Gooden [facility] Start: 09-14-2023 End: 09-14-2023 Emergency department patient visit Darren Lomax Facility:[facility] Start: 09-14-2023 End: 09-14-2023 Emergency department patient visit Darren Lomax [facility] Start: 09-04-2023 End: 09-04-2023 Emergency department patient visit TI Dean Work Phone: [facility] Work Phone: Start: 08-28-2023 End: 08-28-2023 Emergency department patient visit KRYSTLE Rafaela [facility] Start: 08-26-2023 End: 08-26-2023 ambulatory GAYLA DUNBAR Not Available Start: 08-23-2023 End: 08-23-2023 Emergency department patient visit Darren Lomax Facility:[facility] Start: 08-20-2023 End: 08-20-2023 Emergency department patient visit TI Dean Work Phone: [facility] Work Phone: Start: 08-18-2023 End: 08-18-2023 Emergency department patient visit Justo Arias Facility:[facility] Start: 08-18-2023 End: 08-18-2023 Emergency department patient visit Justo Arias [facility] Start: 08-14-2023 End: 08-14-2023 Emergency department patient visit Mary Jane Parkinsondulce Facility:[facility] Start: 08-14-2023 End: 08-14-2023 Emergency department patient visit Mary Jane Palm [facility] Start: 08-10-2023 End: 08-10-2023 Emergency department patient visit Mary Jane Parkinsondulce Facility:[facility] Start: 08-10-2023 End: 08-10-2023 [facility] Start: 08-05-2023 End: 08-06-2023 ambulatory SIVAN KONG Not Available Start: 08-05-2023 End: 08-05-2023 Emergency department patient visit TI Dean Work Phone: [facility] Work Phone: Start: 08-05-2023 End: 08-05-2023 ambulatory SIVAN KONG Not Available Start: 07-30-2023 End: 07-31-2023 ambulatory LANETTE LUI Facility: [place] Start: 07-30-2023 End: 07-30-2023 Patient encounter procedure LANETTE LUI [facility] Start: 07-30-2023 End: 08-07-2023 Pre-admission assessment Ivana Bennett [facility] Start: 07-26-2023 End: 07-26-2023 Emergency department patient visit Darren Lomax Facility:[facility] Start: 07-26-2023 End: 07-26-2023 Emergency department patient visit Darren Lomax [facility] Start: 07-24-2023 End: 07-30-2023 Pre-admission assessment Ivana Bennett [facility] Start: 07-19-2023 End: 07-19-2023 Emergency department patient visit Mary Jane Xavi Parkinsondulce Facility:[facility] Start: 07-19-2023 End: 07-19-2023 Emergency department patient visit Mary Jane Xavi Arpita [facility] Start: 07-14-2023 End: 08-05-2023 Pre-admission assessment Siomara Nettles [facility] Start: 07-12-2023 End: 07-12-2023 Emergency department patient visit Justo Arias Facility:[facility] Start: 07-12-2023 End: 07-12-2023 Emergency department patient visit Justo Arias [facility] Start: 07-09-2023 End: 07-10-2023 ambulatory Amos Hilley Facility: [place] Start: 07-09-2023 End: 07-09-2023 Patient encounter procedure Amos Castellon [facility] Start: 07-07-2023 End: 07-07-2023 Emergency department patient visit Justo Arias Facility:[facility] Start: 07-07-2023 End: 07-08-2023 ambulatory LANETTE LUI Facility:[facility] Start: 07-07-2023 End: 07-07-2023 Emergency department patient visit Justo Arias [facility] Start: 07-07-2023 End: 07-07-2023 Lab Drop off LANETTE LUI [facility] Start: 07-07-2023 End: 07-07-2023 Patient encounter procedure LANETTE LUI [facility] Start: 06-29-2023 End: 06-29-2023 Emergency department patient visit Bruno Jara Facility:[facility] Start: 06-29-2023 End: 06-29-2023 Emergency department patient visit Bruno Jara [facility] Start: 06-14-2023 End: 06-14-2023 Emergency department patient visit Justo Arias Facility:[facility] Start: 06-14-2023 End: 06-14-2023 Emergency department patient visit Justo Arias [facility] Start: 05-31-2023 End: 05-31-2023 Emergency department patient visit Mary Jane Palm Facility:[facility] Start: 05-31-2023 End: 05-31-2023 Emergency department patient visit Mary Jane Palm [facility] Start: 05-28-2023 End: 07-28-2023 ambulatory Nancy Rose Facility:[facility] Start: 05-28-2023 End: 05-28-2023 Emergency department patient visit Darren Lomax Facility:[facility] Start: 05-22-2023 End: 05-23-2023 Pre-admission assessment Nancy Rose [facility] Start: 05-22-2023 End: 05-22-2023 Emergency department patient visit Bruno Jara Facility:[facility] Start: 05-11-2023 End: 05-12-2023 ambulatory Geovany Ramirez Facility:[facility] Start: 05-11-2023 End: 05-11-2023 Patient encounter procedure Geovany Ramirez [facility] Start: 05-06-2023 End: 05-07-2023 ambulatory Gilbert Valverde Facility:[facility] Start: 05-03-2023 End: 05-04-2023 ambulatory Isaac Stephen Facility:[facility] Start: 05-03-2023 End: 05-03-2023 Patient encounter procedure Isaac Stephen [facility] Start: 05-01-2023 End: 05-01-2023 ambulatory [facility] Ambulatory Start: 04-15-2023 End: 04-15-2023 Emergency department patient visit Justo Arias Facility:[facility] Start: 04-15-2023 End: 04-15-2023 Emergency department patient visit Justo Arias [facility] Start: 04-11-2023 End: 04-11-2023 Emergency department patient visit Guille Will Facility:[facility] Start: 03-31-2023 End: 03-31-2023 ambulatory [facility] Ambulatory Start: 03-31-2023 End: 03-31-2023 Postop follow up visit related to original px [facility] TI Work Phone: [facility] Comment on above: Deviated septum (Maggie lavonne Dx); Nasal congestion; Difficulty breathing; Collapse of nasal valve; Hypertrophy of inferior nasal turbinate Start: 03-30-2023 End: 03-30-2023 Emergency department patient visit Guille Will Facility:[facility] Start: 03-30-2023 End: 03-30-2023 Emergency department patient visit Guille iWll [facility] Start: 03-24-2023 End: 03-24-2023 ambulatory [facility] Start: 03-24-2023 End: 03-24-2023 Subsequent hospital visit by physician Thiago Cuellar MD Work Phone: [facility] Comment on above: Nasal septal deviati on (Primary Dx); Acute post-operative pain Start: 03-22-2023 End: 03-22-2023 ambulatory ANABELA SAEZ Not Available Start: 03-11-2023 End: 03-12-2023 ambulatory Amos Castellon Facility:[facility] Start: 03-11-2023 End: 03-11-2023 Patient encounter procedure Amos Castellon [facility] Start: 02-06-2023 End: 02-06-2023 ambulatory [facility] Ambulatory Start: 02-06-2023 End: 02-06-2023 Office consultation new/estab patient 40 min Thiago Cuellar MD Work Phone: [facility] Comment on above: Difficulty breathing (Primary Dx); Nasal septal deviation; Hypertrophy of inferior nasal turbinate; Collapse of nasal valve; Nasal congestion; Deviated septum Start: 01-24-2023 End: 01-25-2023 ambulatory Rojelio V. Spasic Facility:[facility] Start: 01-24-2023 End: 01-24-2023 Patient encounter procedure Rojelio V. Spasic [facility] Start: 01-15-2023 End: 01-16-2023 ambulatory Rojelio V. Spasic Facility:[facility] Start: 01-15-2023 End: 01-15-2023 Patient encounter procedure Rojelio V. Spasic [facility] Start: 11-19-2022 End: 11-19-2022 Emergency department patient visit Vivian Ochoa Facility:[facility] Start: 11-09-2022 End: 11-10-2022 ambulatory Isaac Stephen Facility:[facility] Start: 11-09-2022 End: 11-09-2022 Patient encounter procedure Amos Castellon [facility] Start: 09-04-2022 End: 09-28-2022 Pre-admission assessment Gilbert Valverde [facility] Start: 08-02-2022 End: 09-04-2022 Pre-admission assessment Gilbert Bravo Link [facility] Start: 07-18-2022 End: 07-18-2022 Patient encounter procedure Gina Sterling [facility] Start: 07-18-2022 End: 07-18-2022 Patient encounter procedure Gilbert Valverde [facility] Start: 07-03-2022 End: 07-03-2022 Emergency department patient visit Mary Jane Palm [facility] Start: 06-26-2022 End: 06-26-2022 Patient encounter procedure Geovany Lujan Kaycharline [facility] Start: 09-14-2021 End: 09-14-2021 Emergency department patient visit Darren ÁlvarzeVinh Lomax [facility] Start: 09-12-2021 End: 09-12-2021 Lab Drop off Miguel Angel Kuo [facility] Start: 07-18-2021 End: 07-20-2021 Evaluation [...] Historical Provider Start: 12-27-2020 HIV, EXTERNAL RESULT Donet Botello MD Start: 12-27-2020 N. GONORRHOEAE, EXTE [...] of 2) Zoster Vaccines (1 of 2) [facility] Start: 08-04-2031 DTaP/Tdap/Td Vaccines (3 - Td or Tdap) DTaP/Tdap/Td Vaccines (3 - Td or Tdap) [facility] Start: 08-05-2023 Bacteria identified in Genital specimen by Aerobe culture [facility] Start: 08-05-2023 Trichomonas vaginalis detection [facility] Start: 08-05-2023 End: 08-05-2023 [facility] Start: 03-31-2023 End: 03-31-2023 Patient encounter procedure 03/31/2023 11:00 AM EST Office Visit [facility] [address] [place] [address] Regi Hunter PA-C [address] [address] Department [place] [address] [facility] Start: 03-24-2023 End: 03-24-2023 Fracture nasal [...] Start: 12-27-2022 Influenza vaccination Influenza Vaccine (#1) [facility] Start: 12-27-2020 Influenza vaccination Flu vaccine (#1) [facility] Start: 2016 DTaP/Tdap/Td Vaccines (1 - Tdap) DTaP/Tdap/Td Vaccines (1 - Tdap) [facility] Start: 11-03-2015 Screening for malignant neoplasm of cervix [facility] Start: 2012 Hepatitis C screening Hepatitis C Screening [facility] Start: 11-03-1999 COVID-19 Vaccine (1) COVID-19 Vaccine (1) [facility] Start: 11-03-1995 MMR Vaccines (1 of 1 - Standard series) MMR Vaccines (1 of 1 - Standard series) [facility] Start: 11-03-1995 Varicella vaccination Varicella Vaccines (1 of 2 - 2-dose childhood series) [facility] Start: 05-05-1995 COVID-19 Vaccine (#1) COVID-19 Vaccine (#1) [facility] Start: 1994 Hepatitis B Vaccines (1 of 3 - 3-dose series) Hepatitis B Vaccines (1 of 3 - 3-dose series) [facility] Start: 1994 HIV screening HIV Screening [facility] Start: 1994 Lipid panel Lipid Panel [facility] Start: 1994 Yearly Adult Physical Yearly Adult Physical [facility] Albumin/Globulin ratio [facility] Anion gap measurement [facility] Basophils [#/volume] in Blood by Automated count [facility] Basophils/100 leukoc ytes in Blood by Automated count [facility] End: 03-24-2023 Choriogonadotropin ( test) [Presence] in Urine [facility] Work Phone: Comment on above: Once (Lab) for 1 Occurrences starting until 03/24/2023 Eosinophils/100 leuk ocytes in Blood by Automated count [facility] Erythrocyte distribu tion width [Ratio] by Automated count [facility] Erythrocytes [#/volu me] in Blood [facility] nonstress test nonst ress test OB Routine Daily until discontinued starting 07/19/2021 [employer] Work Phone: Comment on above: Daily until discontinued starting 2021 Globulin [Mass/volum e] in Serum [facility] Glucose [Mass/volume ] in Serum or Plasma POCT GLUCOSE Point of Care Testing Routine 4X Daily until discontinued starting 07/20/2021 [employer] Work Phone: Comment on above: 4X Daily until discontinued starting Glucose [Mass/volume ] in Serum or Plasma POCT Glucose Point of Care Testing - Docked Device Routine As needed (Lab) until discontinued starting 03/24/2023 [facility] Service Area Work Phone: Comment on above: As needed (Lab) until discontinued start ing 03/24/2023 Group B Strep, PCR Group B Strep , PCR Microbiology Routine 07/19/2021 2:48 AM EDT [employer] Work Phone: Hematocrit [Volume Fraction] of Blood [facility] Hemoglobin [Mass/vol ume] in Blood [facility] Leukocytes [#/volume ] corrected for nucleated erythrocytes in Blood by Automated coun [facility] Leukocytes [#/volume ] in Blood [facility] Lymphocytes [#/volum e] in Blood by Automated count [facility] Lymphocytes/100 leuk ocytes in Blood by Automated count [facility] MCH [Entitic mass] b y Automated count [facility] MCHC [Mass/volume] b y Automated count [facility] MCV [Entitic volume] by Automated count [facility] Monocytes [#/volume] in Blood by Automated count [facility] Monocytes/100 leukoc ytes in Blood by Automated count [facility] Neutrophils [#/volum e] in Blood by Automated count [facility] Neutrophils/100 leuk ocytes in Blood by Automated count [facility] Nonrebreather mask oxygen Nonreb reather mask oxygen Respiratory Care Routine As directed - RT (PRN) until discontinued starting 07/19/2021 [employer] Work Phone: Comment on above: As directed - RT (PRN) until discontinue d starting 07/19/2021 Nucleated erythrocyt es [Presence] in Blood by Automated count [facility] Oxygen therapy [Mini mum Data Set] Initiate Oxygen Therapy Protocol while on epidural Respiratory Care Routine As Needed until discontinued starting 07/19/2021 [employer] [employer] Work Phone: Comment on above: As Needed until discontinued starting Patient Education [facility] Work Phone: Patient referral [facility] Work Phone: Platelet mean volume [Entitic volume] in Blood by Automated count [facility] Platelets [#/volume] in Blood [facility] TYPE AND SCREEN TYPE AND SCREEN Blood Bank Routine Every Third Day until discontinued starting 07/19/2021, 1 completed [facility] Work Phone: Comment on above: Every Third Day until discontinued start ing 07/19/2021, 1 completed Immunizations Immunization Date Immunization Notes Care Provider Ximena diehl 08-03-2021 tetanus toxoid, reduced diphtheria toxoid, and acellular pertussis vaccine, adsorbed; Translations: [Boostrix (Tdap)] Miguel Angel Shiela [facility] Comment on above: Reason for Medicatio n: Other (see comment) 08-11-2016 tetanus toxoid, reduced diphtheria toxoid, and acellular pertussis vaccine, adsorbed Miguel Angel Shiela [facility] Comment on above: Reason for Medicatio n: Other (see comment) NEGATED: Highlighted row has not occurred!06-26-2022 influenza virus vaccine, unspecified formulation Geovany Ramirez [facility] NEGATED: Highlighted row has not occurred!06-26-2022 SARS-CoV-2 mRNA (tozinamerajaqueline 5y-11y) vaccine Geovany Villanuevadeisyjose [facility] Payers Date Payer Category Payer Self-pay 2021 Unknown [facility] [id number] 2021-Present P Stephen Chavez [address] [place] [address] [id number] 2021 Unknown [id number] 1994 Unknown [id number] 2.16.840.1.394469.3.579.2.5 1994 Unknown [id number] 2.16.840.1.373049.3.579.2.1244 1994 Unknown [id number] 2.16.840.1.758334.3.579.2.1244 1994 Unknown [id number] 2.16.840.1.436513.3.579.2.1244 1994 Unknown [id number] 2.16.840.1.051077.3.579.2.9 1994 Unknown [id number] 2.16.840.1.558483.3.579.2.1259 1994 Unknown [id number] 2.16.840.1.961546.3.579.2.1259 1994 Unknown [id number] 2.16.840.1.183009.3.579.2.1259 1994 Unknown [id number] 2.16.840.1.733147.3.579.2.174 1994 Unknown [id number] 2.16.840.1.325637.3.579.2.727 1994 Unknown [id number] 2.16.840.1.011622.3.579.2. 1994 Unknown [id number] 2.16840.1.041141.3.579.2 1994 Unknown [id number] 2.16840.1.383538.3.579.2 1994 Unknown [id number] 2.16840.1.548399.3.579.2 1994 Unknown [id number] 2.840.1.753363.3.579.2 1994 Unknown [id number] 2.840.1.401398.3.579.2 1994 Unknown [id number] 2.840.1.783614.3.579.2 1994 Unknown [id number] 2.840.1.278004.3.579.2 1994 Unknown [id number] 2.840.1.803528.3.579.2 1994 Unknown [id number] 2.840.1.884483.3.579.2 1994 Unknown [id number] 2.840.1.562955.3.579.2 1994 Unknown [id number] 2.840.1.520583.3.579.2 1994 Unknown [id number] 2.840.1.671354.3.579.2 1994 Unknown [id number] 2.840.1.133290.3.579.2 1994 Unknown [id number] 2.840.1.497281.3.579.2 1994 Unknown [id number] 2.840.1.184245.3.579.2 1994 Unknown [id number] 2.840.1.206436.3.579.2 1994 Unknown [id number] 2.16.840.1.153121.3.579.2 1994 Unknown [id number] 2.16840.1.922580.3.579.2 1994 Unknown [id number] 2.16.840.1.888244.3.579.2 1994 Unknown [id number] 2.16840.1.026329.3.579.2 1994 Unknown [id number] 2.840.1.893960.3.579.2 1994 Unknown [id number] 2.840.1.150273.3.579.2 1994 Unknown [id number] 2.840.1.192851.3.579.2 1994 Unknown [id number] 2.840.1.670662.3.579.2 1994 Unknown [id number] 2.840.1.595656.3.579.2 1994 Unknown [id number] 2.840.1.600702.3.579.2 1994 Unknown [id number] 2.16840.1.149202.3.579.2 1994 Unknown [id number] 2.16840.1.496121.3.579.2 1994 Unknown [id number] 2.16840.1.426593.3.579.2 1994 Unknown [id number] 2.16840.1.594124.3.579.2 1994 Unknown [id number] 2.16840.1.519441.3.579.2 1994 Unknown [id number] 2.16840.1.694722.3.579.2 1994 Unknown [id number] 2.840.1.877436.3.579.2 1994 Unknown [id number] 2.840.1.463434.3.579.2 1994 Unknown [id number] 2.840.1.389775.3.579.2 1994 Unknown [id number] 2.840.1.920808.3.579.2 1994 Unknown [id number] 2.840.1.711509.3.579.2 1994 Unknown [id number] 2.840.1.954715.3.579.2 1994 Unknown [id number] 2.0.1.295706.3.579. 1994 Unknown [id number] 2.840.1.845932.3.579.2 1994 Unknown [id number] 2.840.1.379014.3.579.2 1994 Unknown [id number] 2.840.1.030110.3.579.2 1994 Unknown [id number] 2840.1.035069.3.579.2 1994 Unknown [id number] 2.840.1.709723.3.579.2 1994 Unknown [id number] 2.840.1.923770.3.579.2 1994 Unknown [id number] 2.840.1.742486.3.579.2 1994 Unknown [id number] 2.840.1.316424.3.579.2 1994 Unknown [id number] 2.840.1.689292.3.579.2. 1994 Unknown [id number] 2.16840.1.689612.3.579.2 1994 Unknown [id number] 2.16840.1.554916.3.579.2. 1994 Unknown [id number] 2.16840.1.603866.3.579.2 1994 Unknown [id number] 2.16840.1.573501.3.579.2 1994 Unknown [id number] 2.840.1.405654.3.579.2 1994 Unknown [id number] 2.840.1.530706.3.579.2 1994 Unknown [id number] .840.1.342581.3.579.2 1994 Unknown [id number] 2.840.1.668617.3.579.2 1994 Unknown [id number] 2.0.1.913489.3.579.2 1994 Unknown [id number] 2.840.1.403013.3.579.2 1994 Unknown [id number] 2840.1.703943.3.579.2 1994 Unknown [id number] 2.840.1.934899.3.579.2 1994 Unknown [id number] 2.840.1.936115.3.579.2 1994 Unknown [id number] 2.16840.1.840504.3.579.2 Medicaid [place] [facility] [id number] Unknown [id number] 2.16.840.1.608129.3.579.2.531 Unknown [id number] 2.16.840.1.548875.3.579.2.531 Unknown [id number] 2.16.840.1.296456.3.579.2.531 Unknown [id number] 2.16.840.1.468826.3.579.2.531 Unknown [id number] 2.16.840.1.745810.3.579.2.531 Social History Date Type Detail Facility Start: 07-19-2021 End: 11-24-2023 Tobacco smoking status NHIS Never smoked tobacco [employer] Work Phone: Comment on above: Denies. Start: 07-19-2021 End: 03-07-2023 Tobacco use and exposure Smokeless tobacco non-user [employer] Work Phone: Start: 07-19-2021 Alcohol intake Ex-drinker (finding) [employer] Work Phone: Start: 1994 Sex Assigned At Not on file S [facility] Work Phone: Start: 07-09-2021 End: 03-24-2023 Exposure to SARS-CoV-2 (event) Not sure [facility] [facility] Work Phone: Start: 02-06-2023 End: 03-31-2023 Sex Assigned At Female [facility] Tobacco [facility] Comment on above: denies Denies. Tobacco smoking status Never [facility] Comment on above: Denies. Start: 02-06-2023 End: 03-31-2023 History of Social function [facility] Work Phone: Start: 1995 Sex Assigned At Female [facility] Start: 01-22-2023 Gender identity Identifies as female gender (finding) [facility] Work Phone: Start: 01-22-2023 Sexual orientation Heterosexual (fin ding) [facility] Work Phone: Start: 03-24-2023 End: 03-31-2023 Alcohol intake Lifetime non-drinker (finding) [facility] Work Phone: Tobacco smoking status No Smoking Status Entered [facility] Start: 08-05-2023 End: 09-27-2023 Tobacco smoking status NHIS Ex-smoker (finding) [facility] NEGATED: Highlighted row [facility] Functional Status Date Assessment Result Facility 11-29-2023 Functional Status N/A [facility] 11-26-2023 Functional Status N/A [facility] 11-24-2023 Functional Status No [facility] 11-05-2023 Functional Status N/A [facility] 2023 Functional Status N/A [facility] 11-01-2023 Functional Status N/A [facility] 10-31-2023 Functional Status N/A [facility] 10-30-2023 Functional Status N/A [facility] 10-25-2023 Functional Status N/A [facility] 10-21-2023 Functional Status N/A [facility] 10-19-2023 Functional Status N/A [facility] 10-17-2023 Functional Status N/A [facility] 10-05-2023 Functional Status N/A [facility] 10-02-2023 Functional Status N/A [facility] 09-27-2023 Functional Status N/A [facility] 09-26-2023 Functional Status N/A [facility] 09-24-2023 Functional Status N/A [facility] 09-20-2023 Functional Status N/A [facility] 09-17-2023 Functional Status N/A [facility] 09-15-2023 Functional Status No [facility] 09-14-2023 Functional Status N/A [facility] 08-18-2023 Functional Status N/A [facility] 08-14-2023 Functional Status N/A [facility] 08-10-2023 Functional Status N/A [facility] 07-30-2023 Functional Status N/A [facility] 07-26-2023 Functional Status N/A [facility] 07-19-2023 Functional Status N/A [facility] 07-12-2023 Functional Status N/A [facility] 07-09-2023 Functional Status N/A [facility] 07-07-2023 Functional Status N/A [facility] 07-07-2023 Functional Status N/A [facility] 06-29-2023 Functional Status N/A [facility] 06-14-2023 Functional Status N/A [facility] 05-31-2023 Functional Status N/A [facility] 05-11-2023 Functional Status N/A [facility] 05-03-2023 Functional Status N/A [facility] 04-15-2023 Functional Status N/A [facility] 03-30-2023 Functional Status N/A [facility] 03-11-2023 Functional Status N/A [facility] 01-24-2023 Functional Status N/A [facility] 01-15-2023 Functional Status N/A [facility] 11-09-2022 Functional Status N/A [facility] 07-03-2022 Functional Status N/A [facility] 06-26-2022 Functional Status N/A [facility] Clinical Notes 07-20-2021 to 11-29-2023 Note Date & Type Note Facility 11-29-2023 Evaluation + Plan note Extrac rosy from: Title:ED Note Author:Justo Arias DO Date:11/28 Chronic pain (G89.29: Other chronic pain) Orders: diflunisal, 500 mg = 1 tab(s), Oral, q12hr, # 20 tab(s), Refills(s) 0, [id number], cm, 11/29/23 6:47:00 EDT, Height/Length Dosing, 60.8, kg, 11/29/23 6:47:00 EDT, Weight Dosing methocarbamol, 750 mg = 1 tab(s), Oral, TID, X 7 day(s), # 21 tab(s), Refills(s) 0, Pharmacy: [facility]/pharmacy #[id number], 160, cm, 11/29/23 6:47:00 EDT, Height/Length Dosing, 60.8, kg, 11/29/23 6:47:00 EDT, Weight Dosing [facility] 08-03-2024 Hospital Discharge instructions Follow Up Care 11/29/2023 06:38:59 With:Cristóbal Granados Address: [address] [place] [phone]- Business (1) When:12/02/2023 07:19:50 With:Krystle Ireland Address: [address] [place] [address]- Business (1) When:Within 3 Day(s) [facility] 07-31-2024 Hospital Discharge instructions Patient [...] told by your health care provider. Take tobb-utp-jbacgws and prescription medicines only as told by [...] provider. Document Revised: 12/20/2021 Document Reviewed: 12/20/2021 [employer] Patient Education 2022 [employer] 11/26/2023 11:40:26 Wrist Pain, Adult, Brnr-dj-Oluj Wrist Pain, Adult There are many things [...] to any changes in your symptoms. Take lrce-rnl-cznqzag and prescription medicines only as told by [...] provider. Document Revised: 03/02/2020 Document Reviewed: 03/02/2020 [employer] Patient Education 2022 [employer]. Follow Up Care 11/26/2023 10:20:14 With:Krystle Ireland Address: [address] [place] [address], [facility] [address] [place] [id number] [facility] (1) When:11/29/2023 11:25:22 Comments:Call Dr for diagnosis based follow up [facility] 07-31-2024 NoteED Patient Education Note [...] by your health care provider. ? Take madr-mpi-eenpxwu and prescription medicines only as told by [...] ? Avoid using the (more content not included)...[facility] 11-24-2023 Hospital Discharge instructions Patient [...] Follow these instructions at home: Medicines Take rkuj-qqq-yyeaiqd and prescription medicines only as told by your health care provider. Ask your health care provider if the medicine prescribed to you: ?Requires you to avoid driving or using machinery. ?Can cause constipation. You may need to take these actions to prevent or treat constipation: ?Drink enough fluid to keep your urine pale yellow. ?Take bknk-yds-hlxcnio or prescription medicines. ?Eat foods that are [...] department or: Call your local emergency services (981 in the [place] Call a suicide crisis helpline, such as the National Suicide Prevention Lifeline at or 125 in the [place] This is open 24 hours a day in the [place] Text the Crisis Text Line at 065476 (in the [place] Summary Chronic pain is [...] provider. Document Revised: 08/29/2022 Document Reviewed: 12/30/2019 [employer] Patient Education 2022 [employer] Follow Up Care 11/24/2023 11:46:58 With:Krystle Ireland Address: [address] [place] [address], [address] [place] [address]- Business (1) When:Within 3 Day(s) [facility] 07-29-2024 Evaluation + Plan noteExtracted from: Title:ED Note Author:Wan RUIZ Student, Vel goyo Bravo Date:11/24/23 Chronic pelvic pain in femal e (R10.2: Pelvic and perineal pain) Other chronic pain (G89.29: Other chronic pain) Ordered: tramadol, 50 mg = 1 tab(s), Oral, q8hr, X 3 day(s), # 9 tab(s), Refills(s) 0, Pharmacy: [facility]/pharmacy #[id number], 160, cm, 11/24/23 11:59:00 EDT, Height/Length Dosing, 62, kg, 11/24/23 11:59:00 EDT, Weight Dosing Orders: naproxen, 500 mg = 1 tab(s), Oral, BID, Take one tab by mouth two times a day, # 14 tab(s), Refills(s) 0, Pharmacy: [facility]/pharmacy #[id number], 160, cm, 11/24/23 11:59:00 EDT, Height/Length Dosing, 62, kg, 11/24/23 11:59:00 EDT, Weight Dosing Future Appointments Appointment Date:11/27/2023 08:15:00 AM Scheduled Provider:Cristóbal Granados DO Location[facility] Appointment Type:Pain Management - New (FT) [facility] 07-29-2024 NoteED Patient Education Note [...] these instructions at home: Medicines ? Take cqts-akm-guikpax and prescription medicines only as told by your health care provider. ? Ask your health care provider if the medicine prescribed to you: ? Requires you to avoid driving or using machinery. ? Can cause constipation. You may need to take these actions to prevent or treat constipation: ? Drink enough fluid to keep your urine pale yellow. ? Take nozb-geh-bgnkkij or prescription medicines. ? Eat foods that [...] were done. Ask your health care provider, [facility] department that is doing the tests, when [...] or: ? Call your local emergency services (831 in the [place] ? Call a suicide crisis helpline, such as the National Suicide Prevention Lifeline at or 825 in the [place] This is open 24 hours a day in the [place] ? Text the Crisis Text Line at 373463 (in the [place] Summary ? Chronic pain is a type of pain that lasts or keeps coming back for at least 3?6 months. ? Chronic pain may be related to an illness, injury, or other health condition. Sometimes, the cause of chronic pain is not known. ? Treatment depends on the cause and (more content not included)...[facility]07-10-2024 Evaluation + Plan noteExtracted from: [...] 01:45:00 PM Scheduled Provider:Cristóbal Granados DO Location:FT.[facility] Appointment Type:Pain Management - New (FT) Appointment Date:11/24/2023 11:00:00 AM Scheduled Provider:Fatoumata Gooden MD Location:[facility] Appointment Type:Vascular Follow Up (FT) [facility]07-10-2024 Hospital Discharge instructions Patient Education [...] Follow these instructions at home: Medicines Take aizt-ezt-ftbfoeq and prescription medicines only as told by [...] Watch your condition for any changes. Take pwzz-uqf-llbwofi and prescription medicines only as told by [...] provider. Document Revised: 06/02/2020 Document Reviewed: 08/23/2019 [employer] Patient Education 2022 [employer]. 11/05/2023 08:48:44 Chronic Pain, Adult Chronic Pain, [...] Follow these instructions at home: Medicines Take owqg-jjt-pmabgeh and prescription medicines only as told by your health care provider. Ask your health care provider if the medicine prescribed to you: ?Requires you to avoid driving or using machinery. ?Can cause constipation. You may need to take these actions to prevent or treat constipation: ?Drink enough fluid to keep your urine pale yellow. ?Take wsfw-bec-aoqhuuj or prescription medicines. ?Eat foods that are [...] department or: Call your local emergency services (837 in the [place] Call a suicide crisis helpline, such as the National Suicide Prevention Lifeline at or 898 in the [place] This is open 24 hours a day in the [place] Text the Crisis Text Line at 954616 (in the [place] Summary Chronic pain is [...] provider. Document Revised: 08/29/2022 Document Reviewed: 12/30/2019 [employer] Patient Education 2022 [employer]. Follow Up Care 11/04/2023 23:46:14 With:Krystle Ireland Address: [address] [place] [address], [address] [place] [address] [facility] (1) When:11/08/2023 08:47:56 Comments:Call the office [...] weakness, or any new or worsening symptoms. [facility]07-10-2024 NoteED Patient Education Note Gastroenterology [...] these instructions at home: Medicines ? Take obgd-jzl-neetcmt and prescription medicines only as told by [...] your condition for any changes. ? Take epyz-hoh-qrfbgnm and prescription medicines only as told by [...] provider. Document Revised: 06/02/2020 Document Reviewed: 08/23/2019 [employer] Patient Education ? 2022 [employer] Mental and Behavioral Health Chronic Pain, [...] these instructions at home: Medicines ? Take bigr-wnp-ncusntr and prescription medicines only as told by your health care provider. ? Ask your health care provider if the medicine prescribed to you: ? Requires you to avoid driving or using machinery. ? Can cause constipation. You may need to take these actions to prevent or treat constipation: ? Drink enough fluid to keep your urine pale yellow. ? Take gvdu-ofl-calkmgv or prescription medicines. ? Eat foods that [...] the nerve impulses anne (more content not included)...[facility]07-06-2024 Hospital Discharge instructions Patient Education [...] Follow these instructions at home: Medicines Take mtcf-ezi-wgrzebu and prescription medicines only as told by [...] Watch your condition for any changes. Take zepa-pxl-zgchdhp and prescription medicines only as told by [...] provider. Document Revised: 06/02/2020 Document Reviewed: 08/23/2019 [employer] Patient Education 2022 [employer]. Follow Up Care 11/01/2023 19:35:13 With:Fatoumata Gooden Address: [address] [place] [address] [place] [address] Business (1) When:11/04/2023 19:56:58 With:Krystle Ireland Address: [address] [place] [address], [address] [place] [phone] Business (1) When:Within 3 Day(s) [facility]07-06-2024 NoteED Patient Education Note Gastroenterology [...] these instructions at home: Medicines ? Take vyat-xcc-adnbkog and prescription medicines only as told by [...] your condition for any changes. ? Take shwk-hiu-cjlxqno and prescription medicines only as told by [...] provider. Document Revised: 06/02/2020 Document Reviewed: 08/23/2019 [employer] Patient Education ? 2022 [employer].[facility] 11-01-2023 Evaluation + Plan noteExtracted from: Title:ED Note Author:Bruno Jara DO Date :11/01/23 AP (abdominal pain) (R10.9: Unspecified abdominal pain) Orders: tramadol, 200 mg = 4 tab(s), Tab, Oral, Once, Stop date 11/01/23 19:55:00 EDT, STAT, Start date 11/01/23 19:55:00 EDT, 11/01/23 19:55:00 EDT Future Appointments Appointment Date:11/03/2023 10:45:00 AM Scheduled Provider:Bon CD, Fatoumata Kelsey Location[facility] Appointment Type:Vascular Follow Up (FT) Appointment Date:11/17/2023 01:45:00 PM Scheduled Provider:Cristóbal Granados DO Location[facility] Appointment Type:Pain Management - New (FT) [facility]07-05-2024 Hospital Discharge instructions Patient Education 10/31/2023 13:48:32 Abdominal Pain, Adult, Yhmc-ej-Ubij Abdominal Pain, Adult Many things can cause belly (abdominal) pain. Most times, belly pain is not dangerous. Many cases of belly pain can be watched and treated at home. Sometimes, though, belly pain is serious. Your doctor will try to find the cause of your belly pain. Follow these instructions at home: Medicines Take wcsz-dzc-iwhmlkq and prescription medicines only as told by [...] your belly pain for any changes. Take liho-ufg-tttoggq and prescription medicines only as told by [...] provider. Document Revised: 08/23/2019 Document Reviewed: 08/23/2019 [employer] Patient Education 2022 [employer]. Follow Up Care 10/31/2023 12:39:27 With:Follow-up with Dr. Gooden and pain management as scheduled. Address:Unknown When:11/03/2023 13:48:25 With:Krystle Ireland Address: [address] [place] [address] [address] [place] [address]- Business (1) When:Within 3 Day(s) [facility]07-05-2024 NoteED Patient Education Note Gastroenterology Abdominal Pain, Adult Many things can cause belly (abdominal) pain. Most times, belly pain is not dangerous. Many cases of belly pain can be watched and treated at home. Sometimes, though, belly pain is serious. Your doctor will try to find the cause of your belly pain. Follow these instructions at home: Medicines ? Take paes-kzg-hovxppi and prescription medicines only as told by [...] belly pain for any changes. ? Take gzmb-dtf-tjnvoqf and prescription medicines only as told by [...] provider. Document Revised: 08/23/2019 Document Reviewed: 08/23/2019 [employer] Patient Education ? 2022 [employer]oneless.[facility] 10-30-2023 Hospital Discharge instructions Patient [...] known. Follow these instructions at home: Take uews-zng-ltshmml and prescription medicines only as told by [...] provider. Document Revised: 08/21/2021 Document Reviewed: 08/21/2021 [employer] Patient Education 2022 [employer]. Follow Up Care 10/30/2023 16:05:01 With:Follow with Dr. Gooden and pain management as already scheduled Address:Unknown When: Unknown With:Krystle Ireland Address: [address] [place] [address], [address] [place] [phone] Business (1) When:Within 3 Day(s) [facility]07-04-2024 NoteED Patient Education Note Obstetrics [...] Follow these instructions at home: ? Take hukk-wkd-oypfhbn and prescription medicines only as told by [...] provider. Document Revised: 08/21/2021 Document Reviewed: 08/21/2021 [employer] Patient Education ? 2022 [employer]oneless.[facility] 10-30-2023 Evaluation + Plan noteExtracted from: Title:ED Note Author:Siomara Nettles PA-C e:10/30/23 1. Chronic pain (G89.29: [facility] er chronic pain) Orders: ketorolac, 30 [...] 01:45:00 PM Scheduled Provider:Cristóbal Granados DO Location:.Pain [facility] Appointment Type:Pain Management - New (FT) [facility]06-29-2024 Hospital Discharge instructions Patient Education [...] Follow these instructions at home: Medicines Take zyao-luk-xlhnprd and prescription medicines only as told by your health care provider. Ask your health care provider if the medicine prescribed to you: ?Requires you to avoid driving or using machinery. ?Can cause constipation. You may need to take these actions to prevent or treat constipation: ?Drink enough fluid to keep your urine pale yellow. ?Take zvrp-nmp-tbcsinu or prescription medicines. ?Eat foods that are [...] department or: Call your local emergency services (989 in the [place] Call a suicide crisis helpline, such as the National Suicide Prevention Lifeline at or 926 in the U.S. This is open 24 hours a day in the [place]. Text the Crisis Text Line at 227731 (in the [place].S.). Summary Chronic pain is [...] provider. Document Revised: 08/29/2022 Document Reviewed: 12/30/2019 [employer] Patient Education 2022 [employer]eless. Follow Up Care 10/25/2023 13:29:29 With:Krystle Ireland Address: [address] [place] [address], [address] [place] [phone] Business (1) When:Within 3 Day(s) [facility]06-29-2024 NoteED Patient Education Note Mental [...] these instructions at home: Medicines ? Take mlez-eeo-lmsoktj and prescription medicines only as told by your health care provider. ? Ask your health care provider if the medicine prescribed to you: ? Requires you to avoid driving or using machinery. ? Can cause constipation. You may need to take these actions to prevent or treat constipation: ? Drink enough fluid to keep your urine pale yellow. ? Take jrqs-ncq-pumbmoa or prescription medicines. ? Eat foods that [...] were done. Ask your health care provider, [facility] department that is doing the tests, when [...] the National Suicide Prevention Lifeline at or 220 in the [place].S. This is open 24 hours a day in the [place].S. ? Text the Crisis Text Line at 885626 (in the [place].S.). Summary ? Chronic pain is a type of pain that lasts or keeps coming back for at least 3?6 months. ? Chronic pain may be related to an illness, injury, or other health condition. Sometimes, the cause of chronic pain is not known. ? Treatment depends on the cause and (more content not included)...[facility]06-29-2024 Evaluation + Plan noteExtracted from: Title:ED Note Author:Ulisses Mckinney PA-C te:10/25/23 Chronic pain in female pelvi s (R10.2: Pelvic and perineal pain) Other chronic pain (G89.29: Other chronic pain) Orders: tramadol, 50 mg = 1 tab(s), Oral, q6hr, PRN for pain, X 3 day(s), # 12 tab(s), Refills(s) 0, Pharmacy: [facility] #[id number], 160, cm, 10/25/23 13:44:00 EDT, Height/Length Dosing, [...] Location:.Vascular Clinic Appointment Type:Vascular Follow Up (FT) [facility]06-25-2024 Hospital Discharge instructions Patient Education [...] known. Follow these instructions at home: Take zomu-vpz-qinlpzd and prescription medicines only as told by [...] provider. Document Revised: 08/21/2021 Document Reviewed: 08/21/2021 [employer] Patient Education 2022 [employer]oneless. Follow Up Care 10/21/2023 18:15:22 With:Cristóbal Granados Address: [address] [place], [place] [phone]- Business (1) When:10/24/2023 20:02:45 With:Pain Clinic: [facility] [phone] Address:Unknown When:10/24/2023 20:02:13 With:Krystle Ireland Address: [address] [place] [address], [address] [place] [address] Business (1) When:Within 3 Day(s) [facility]06-23-2024 Hospital Discharge instructions Follow Up Care 10/19/2023 12:42:32 With:Fatoumata Gooden Address: [address] [place] [phone]- Business (1) When:10/22/2023 13:57:04 With:Krystle Ireland Address: [address] [place] [address], [address] [place] [address]- Business (1) When:Within 3 Day(s) [facility]06-23-2024 Evaluation + Plan noteExtracted from: Title:ED Note Author:Ulisses Mckinney PA-C te:10/19/23 Chronic female pelvic pain ( R10.2: Pelvic and perineal pain) Other chronic pain (G89.29: Other chronic pain) Orders: ondansetron, 4 mg = 1 tab(s), Oral, q8hr, PRN Nausea/Vomiting, # 20 tab(s), Refills(s) 0, Pharmacy: [facility]/pharmacy #[id number], 160, cm, 10/19/23 12:58:00 EDT, Height/Length Dosing, 65, kg, 10/19/23 12:58:00 EDT, Weight Dosing tramadol, 50 mg = 1 tab(s), Oral, q6hr, PRN for pain, X 3 day(s), # 10 tab(s), Refills(s) 0, Pharmacy: [facility]/pharmacy #[id number], 160, cm, 10/19/23 12:58:00 EDT, Height/Length Dosing, 65, kg, 10/19/23 12:58:00 EDT, Weight Dosing [facility]06-21-2024 Hospital Discharge instructions Patient Education 10/17/2023 18:49:44 Abdominal Pain, Adult, Uvls-bq-Gpmr Abdominal Pain, Adult Many things can cause belly (abdominal) pain. Most times, belly pain is not dangerous. Many cases of belly pain can be watched and treated at home. Sometimes, though, belly pain is serious. Your doctor will try to find the cause of your belly pain. Follow these instructions at home: Medicines Take hhom-ywb-rsmptdr and prescription medicines only as told by [...] your belly pain for any changes. Take uhyo-mig-ifeunat and prescription medicines only as told by [...] provider. Document Revised: 08/23/2019 Document Reviewed: 08/23/2019 [employer] Patient Education 2022 [employer]oneless. Follow Up Care 10/17/2023 17:14:00 With:Fatoumata Gooden Address: [address] [place] [phone]- Business (1) When:10/20/2023 18:49:28 Comments:Follow-up with Dr. Gooden for further management of care. With:Krystle Ireland Address: [address], [address] [place] [address]- Business (1) When:10/20/2023 18:48:43 [facility]06-09-2024 Hospital Discharge instructions Follow Up Care 10/05/2023 19:21:54 With:Krystle Ireland Address: [address] [place] [address], [address] Business (1) When:10/08/2023 20:32:53 Comments:Call Dr for diagnosis based follow up [facility]06-06-2024 Evaluation + Plan noteExtracted from: [...] to follow-up with her primary doctor and [employer]. She is instructed to return to the emergency room if her pain gets worse or any new symptoms. [facility]06-06-2024 Hospital Discharge instructions Patient Education [...] Follow these instructions at home: Medicines Take hkca-jfq-cfjcoux and prescription medicines only as told by [...] provider. Document Revised: 11/24/2020 Document Reviewed: 11/24/2020 [employer] Patient Education 2022 [employer]eless. 10/02/2023 07:48:34 Abdominal Pain, Adult Abdominal Pain, [...] Follow these instructions at home: Medicines Take nkex-tch-sstkamw and prescription medicines only as told by [...] Watch your condition for any changes. Take jbnc-rvw-ihcgaxw and prescription medicines only as told by [...] provider. Document Revised: 06/02/2020 Document Reviewed: 08/23/2019 [employer] Patient Education 2022 [employer]eless. 10/02/2023 07:48:34 Chronic Pain, Adult Chronic Pain, Adult Chronic pain is a type of pain that lasts or keeps coming back for at least 3 6 months. You may have headaches, pain in the abdomen, or pain in other areas of the body. Chronic pain may be related ojsefina illness, such as fibromyalgia or complex regional [...] Follow these instructions at home: Medicines Take zmtl-wvp-uwbuatf and prescription medicines only as told by your health care provider. Ask your health care provider if the medicine prescribed to you: ?Requires you to avoid driving or using machinery. ?Can cause constipation. You may need to take these actions to prevent or treat constipation: ?Drink enough fluid to keep your urine pale yellow. ?Take jded-mdd-tlwvkxn or prescription medicines. ?Eat foods that are [...] department or: Call your local emergency services (805 in the [place] Call a suicide crisis helpline, such as the National Suicide Prevention Lifeline at or 178 in the [place]. This is open 24 hours a day in the [place] Text the Crisis Text Line at 768088 (in the [place].S.). Summary Chronic pain is [...] provider. Document Revised: 08/29/2022 Document Reviewed: 12/30/2019 [employer] Patient Education 2022 [employer]eless. Follow Up Care 10/02/2023 06:24:31 With:Krystle Ireland Address: [address] [place] [address], [address] [facility] (1) When:10/05/2023 07:39:36 Comments:Return to the emergency room if your pain gets worse, vomiting, fever or any new symptoms. [facility]06-01-2024 Evaluation + Plan noteExtracted from: Title:ED Note Author:Sy Pickard PA-C te:09/27/23 Chronic pain in female pelvi s (R10.2: Pelvic and perineal pain) Other chronic pain (G89.29: Other chronic pain) Orders: tramadol, 50 mg = 1 tab(s), Tab, Oral, Once, Stop date 09/27/23 10:37:00 EDT, STAT, Start date 09/27/23 10:37:00 EDT, 09/27/23 10:37:00 EDT [facility]06-01-2024 Hospital Discharge instructions Patient Education [...] Follow these instructions at home: Medicines Take nwsm-rfs-toaqgst and prescription medicines only as told by your health care provider. Ask your health care provider if the medicine prescribed to you: ?Requires you to avoid driving or using machinery. ?Can cause constipation. You may need to take these actions to prevent or treat constipation: ?Drink enough fluid to keep your urine pale yellow. ?Take gibd-ffh-siflypg or prescription medicines. ?Eat foods that are [...] department or: Call your local emergency services (591 in the [place] Call a suicide crisis helpline, such as the National Suicide Prevention Lifeline at or 004 in the [place]. This is open 24 hours a day in the [place]. Text the Crisis Text Line at 951072 (in the [place].S.). Summary Chronic pain is [...] provider. Document Revised: 08/29/2022 Document Reviewed: 12/30/2019 [employer] Patient Education 2022 [employer] Follow Up Care 09/27/2023 10:30:49 With:Krystle Ireland Address: [address] [place] [address], [address] [place] [phone]- Business (1) When:09/30/2023 10:37:30 [facility]05-31-2024 Hospital Discharge instructions Patient Education [...] Follow these instructions at home: Medicines Take uthj-cau-aiyhszq and prescription medicines only as told by [...] provider. Document Revised: 11/24/2020 Document Reviewed: 11/24/2020 [employer] Patient Education 2022 Cloneless. Follow Up Care 09/26/2023 15:08:18 With:Krystle Ireland Address: [address] [place] [address] Business (1) When:09/29/2023 16:17:44 [facility]05-31-2024 Evaluation + Plan noteExtracted from: Title:ED Note Author:Gagandeep LUKE, Daxa Justice Date:09/26/23 1. Dysuria (R30.0: Dysuria) Orders: phenazopyridine, 200 mg = 1 tab(s), Oral, TID, X 7 day(s), # 21 tab(s), Refills(s) 0, Pharmacy: [facility]/pharmacy #[id number], 160, cm, 09/26/23 15:23:00 EDT, Height/Length Dosing, 65, kg, 09/26/23 15:23:00 EDT, Weight Dosing U Beta Hcg Qual UA with Cult Rflx [facility]05-29-2024 Hospital Discharge instructions Patient Education [...] Follow these instructions at home: Medicines Take slmx-asq-drcdwhm and prescription medicines only as told by [...] provider. Document Revised: 11/24/2020 Document Reviewed: 11/24/2020 [employer] Patient Education 2022 Cloneless. Follow Up Care 09/24/2023 15:27:34 With:Fatoumata Gooden Address: [address] [place] [phone] Business (1) When:09/27/2023 16:22:39 Comments:Call Dr for diagnosis based follow up With:Krystle Ireland Address: [address] [place] [address], [facility] [address] [place] [address] Business (1) When:09/27/2023 16:22:32 Comments:Call Dr for diagnosis based follow up [facility]05-25-2024 Hospital Discharge instructions Follow Up Care 09/20/2023 12:20:52 With:Krystle Ireland Address: [address] [place] [address], [address] [address] Business (1) When:Within 3 Day(s) [facility]05-25-2024 Evaluation + Plan noteExtracted from: Title:ED Note Author:Justo Arias DO Date:08/27 09/18 Abdominal pain (R10.9: Unspe cified abdominal pain) Ordered: tramadol, 50 mg = 1 tab(s), Oral, q6hr, X 3 day(s), # 12 tab(s), Refills(s) 0, Pharmacy: [facility]/pharmacy #[id number], 160, cm, 09/20/23 12:38:00 EDT, Height/Length Dosing, 65.1, kg, 09/20/23 12:38:00 EDT, Weight Dosing Nausea (R11.0: Nausea) Orders: ondansetron, 4 mg = 1 tab(s), Oral, q6hr, X 3 day(s), # 10 tab(s), Refills(s) 0, Pharmacy: [facility]/pharmacy #[id number], 160, cm, 09/20/23 12:38:00 EDT, Height/Length Dosing, 65.1, kg, 09/20/23 12:38:00 EDT, Weight Dosing Basic Metabolic Panel Beta hCG Qual CBC w/ Auto Diff eGFR Hepatic Function Panel Lipase Level [facility]05-22-2024 Evaluation + Plan noteExtracted from: [...] day(s), # 21 cap(s), Refills(s) 0, Pharmacy: [facility]/pharmacy #[id number], 160, cm, 09/17/23 4:33:00 EDT, Height/Length Dosing, 65.4, kg, 09/17/23 4:33:00 EDT, Weight Dosing nitrofurantoin, 100 mg = 1 cap(s), Oral, q12hr, X 5 day(s), # 10 cap(s), Refills(s) 0, Pharmacy: [facility]/pharmacy #[id number], 160, cm, 09/17/23 4:33:00 EDT, [...] day(s), # 9 tab(s), Refills(s) 0, Pharmacy: [facility]/pharmacy #[id number], 160, cm, 09/17/23 4:33:00 EDT, Height/Length Dosing, 65.4, kg, 09/17/23 4:33:00 EDT, Weight Dosing tramadol, 100 mg = 2 tab(s), Tab, Oral, Once, Stop date 09/17/23 4:52:00 EDT, STAT, Start date 09/17/23 4:52:00 EDT, 09/17/23 4:52:00 EDT tramadol, 50 mg = 1 tab(s), Oral, q6hr, PRN for pain, X 2 day(s), # 7 tab(s), Refills(s) 0, [id number], [facility], cm, 09/17/23 4:33:00 EDT, Height/Length Dosing, 65.4, kg, 09/17/23 4:33:00 EDT, Weight Dosing U Beta Hcg Qual UA with Cult Rflx Urine Culture Diagnostic Tests Pending * Urine Culture 09/17/23 [facility]05-22-2024 Hospital Discharge instructions Patient Education 09/17/2023 05:11:08 Urinary Tract Infection, Adult, Siyd-mc-Flnb Urinary Tract Infection, Adult A urinary tract [...] Follow these instructions at home: Medicines Take qllo-ril-poaxlth and prescription medicines only as told by [...] provider. Document Revised: 11/24/2020 Document Reviewed: 11/24/2020 [employer] Patient Education 2022 [employer]oneless. Follow Up Care 09/17/2023 04:26:17 With:Krystle Ireland Address: [address] [place] [address], [facility] [address] [facility] (1) When:09/20/2023 Comments:Take the antibiotics as prescribed until you have completed the course. You can use the Pyridium every 8 hours as needed for burning. You can use the other medications as prescribed as needed for pain. Please follow-up with your primary care doctor for further evaluation management. Please return to the ED for any new or worsening symptoms. [facility]05-19-2024 Evaluation + Plan noteExtracted from: Title:ED Note Author:Sy Pickard PA-C te:09/14/23 Pelvic congestion syndrome ( N94.89: Other specified conditions associated with female genital organs and menstrual cycle) Ordered: tramadol, 50 mg = 1 tab(s), Oral, q6hr, PRN as needed for pain, X 2 day(s), # 10 tab(s), Refills(s) 0, Pharmacy: [facility]/pharmacy #[id number], 160, cm, 09/14/23 11:13:00 EDT, Height/Length Dosing, 65.1, kg, 09/14/23 11:13:00 EDT, Weight Dosing Future Appointments Appointment Date:09/15/2023 08:45:00 AM Scheduled Provider:Bon DC, Fatoumata Kelsey Location:.Vascular Clinic Appointment Type:Vascular New Patient (FT) [facility]05-19-2024 Hospital Discharge instructions Patient Education [...] Follow these instructions at home: Medicines Take zxxu-cao-ounxomm and prescription medicines only as told by [...] Watch your condition for any changes. Take zvjl-tst-tscyuhe and prescription medicines only as told by [...] provider. Document Revised: 06/02/2020 Document Reviewed: 08/23/2019 [employer] Patient Education 2022 Cloneless. Follow Up Care 09/14/2023 11:06:42 With:Krystle Ireland Address: [address] [place] [address], [address] [place] [address] Business (1) When:09/17/2023 11:48:22 [facility]04-22-2024 Evaluation + Plan noteExtracted from: Title:ED Note Author:Justo Arias DO Date:07/28 06/21 Pelvic pain (R10.2: Pelvic a nd perineal pain) Ordered: tramadol, 50 mg, Oral, q4hr, Take one by mouth every four hours, X 3 day(s), # 10 tab(s), Refills(s) 0, Pharmacy: [facility] #[id number], 160, cm, 08/18/23 10:31:00 EDT, Height/Length Dosing, 64, kg, 08/18/23 10:31:00 EDT, Weight Dosing Orders: U Beta Hcg Qual UA with Cult Rflx [facility]04-22-2024 Hospital Discharge instructions Follow Up Care 08/18/2023 10:23:22 With:your physician at Address:Unknown When:08/21/2023 11:40:28 With:Krystle Ireland Address: [address] [place] [address], [address] [place] [address] Business (1) When:Within 3 Day(s) [facility]04-18-2024 Hospital Discharge instructions Patient Education [...] known. Follow these instructions at home: Take jwih-xpd-jeyedwo and prescription medicines only as told by [...] provider. Document Revised: 08/21/2021 Document Reviewed: 08/21/2021 [employer] Patient Education 2022 [employer]eless. Follow Up Care 08/14/2023 14:23:37 With:Miguel Angel Kuo Address: [address] [address] [facility] (1) When:08/17/2023 17:07:38 Comments:Make sure to follow-up with Dr. Kuo. Return to the emergency room if your pain gets worse, you develop fever, vaginal discharge or any new symptoms. With:Krystle Ireland Address: [address] [place] [address], [address] [place] [address]- Business (1) When:Within 3 Day(s) [facility]04-18-2024 Evaluation + Plan noteExtracted from: Title:ED Note Author:Arpita Layton, Mary Jane Simmons te:08/14/23 1. Chronic pelvic pain in fe male (R10.2: Pelvic and perineal pain) Ordered: tramadol, 50 mg = 1 tab(s), Oral, q8hr, PRN as needed for pain, # 7 tab(s), Refills(s) 0, Pharmacy: [facility]/pharmacy #[id number], 160, cm, 08/14/23 14:48:00 EDT, Height/Length Dosing, 64, kg, 08/14/23 14:48:00 EDT, Weight Dosing Other chronic pain (G89.29: Other chronic pain) Orders: Basic Metabolic Panel CBC w/ Auto Diff eGFR Extra Blue Tube Extra SST Tube U Beta Hcg Qual UA with Cult Rflx [facility]04-14-2024 Hospital Discharge instructions Patient Education [...] known. Follow these instructions at home: Take mbea-mhw-vpfjrew and prescription medicines only as told by [...] provider. Document Revised: 08/21/2021 Document Reviewed: 08/21/2021 [employer] Patient Education 2022 [employer]. Follow Up Care 08/10/2023 11:35:32 With:Miguel Angel Kuo Address: [facility] [place] [phone] Business (1) When:08/13/2023 12:48:54 [facility]04-14-2024 Evaluation + Plan noteExtracted from: Title:ED Note Author:Sy Pickard PA-C te:08/10/23 Chronic pelvic pain in femal e (R10.2: Pelvic and perineal pain) Ordered: tramadol, 50 mg = 1 tab(s), Oral, q6hr, PRN as needed for pain, Take one tab by mouth every six hours as needed for pain, X 3 day(s), # 8 tab(s), Refills(s) 0, Pharmacy: [facility]/pharmacy #[id number], 160, cm, 08/10/23 11:41:00 EDT, Height/Length Dosing, 66, kg, 08/10/23... Other chronic pain (G89.29: Other chronic pain) Orders: dicyclomine, 20 mg = 1 tab(s), Oral, TID, X 7 day(s), # 21 tab(s), Refills(s) 0, Pharmacy: [facility]/pharmacy #[id number], 160, cm, 08/10/23 11:41:00 EDT, Height/Length Dosing, 66, kg, 08/10/23 11:41:00 EDT, Weight Dosing [facility]04-03-2024 Hospital Discharge instructions Patient Education [...] numbers. This can be done either in [place] (U.S[place] or metric measurements. Note that charts and online BMI calculators are available to help you find your BMI quickly and easily without having to do these calculations yourself. To calculate your BMI in [place] ([place] measurements: 1.Measure your weight in pounds [...] Centers for Disease Control and Prevention: www.cdc.gov [employer]: www.heart.org National Heart, Lung, and Blood [place]: www.nhlbi.nih.gov Summary Body mass index (BMI) is a number that is calculated from a person's weight and height. BMI may help estimate how much of a person's weight is composed of fat. BMI can help identify thosewho may be at higher risk for certain medical problems. BMI can be measured using Swiss measurements or metric measurements. BMI charts are used to identify whether you are underweight, normal weight, overweight, or obese. This information is not intended to replace advice given to you by your health care provider. Make sure you discuss any questions you have with your health care provider. Document Revised: 01/05/2020 Document Reviewed: 11/12/2019 [employer] Patient Education 2022 [employer]. 07/30/2023 14:39:39 Abdominal Pain, Adult, Lspw-wu-Xqni Abdominal Pain, Adult Many things can cause belly (abdominal) pain. Most times, belly pain is not dangerous. Many cases of belly pain can be watched and treated at home. Sometimes, though, belly pain is serious. Your doctor will try to find the cause of your belly pain. Follow these instructions at home: Medicines Take vfdf-wep-sfhirnn and prescription medicines only as told by [...] your belly pain for any changes. Take zwft-qzt-tdfbebd and prescription medicines only as told by [...] provider. Document Revised: 08/23/2019 Document Reviewed: 08/23/2019 [employer] Patient Education 2022 [employer]. Follow Up Care 07/30/2023 11:06:05 With:Krystle Ireland CNP Address: [address] [place] [address], [address] [place] [address]- When: Unknown [facility] [employer] Care 03-30-2024 Hospital Discharge [...] Follow these instructions at home: Medicines Take ghcw-elq-ihyjved and prescription medicines only as told by [...] Watch your condition for any changes. Take ziwm-uda-eqctnfy and prescription medicines only as told by [...] provider. Document Revised: 06/02/2020 Document Reviewed: 08/23/2019 [employer] Patient Education 2022 Cloneless. Follow Up Care 07/26/2023 09:36:30 With:Krystle Ireland Address: [address] [place] [address], [address] [place] [id number] [facility] (1) When:07/29/2023 12:09:58 Comments:Call the office [...] weakness, or any new or worsening symptoms. [facility]03-30-2024 Evaluation + Plan noteExtracted from: Title:ED Note Author:Darren Lomax DO Date: Acute abdominal pain (R10.9: Unspecified abdominal pain) Ordered: tramadol, 50 mg = 1 tab(s), Oral, q12hr, PRN for pain, X 3 day(s), # 6 tab(s), Refills(s) 0, Pharmacy: [facility]/pharmacy #[id number], 160, cm, 07/26/23 9:44:00 EDT, [...] Complete 07/29/23 * US Transvaginal Non-OB 07/29/23 [facility]03-23-2024 Hospital Discharge instructions Patient Education 07/19/2023 12:49:00 Bronchospasm, Adult, Ojmi-lc-Gdkg Bronchospasm, Adult Bronchospasm is when the small airways in the lungs narrow. This can make it very hard to breathe. Swelling and more mucus than normal can add to this problem. What are the causes? Having a cold. Exercise. The smell from sprays, perfumes, candles, and manager department. Cold air. Stress or strong feelings such [...] Follow these instructions at home: Medicines Take uufy-cxd-splnqha and prescription medicines only as told by [...] provider. Document Revised: 11/05/2021 Document Reviewed: 11/05/2021 [employer] Patient Education 2022 Cloneless. 07/19/2023 12:49:00 Nonspecific Chest Pain, Adult, Njle-um-Ihnr Nonspecific Chest Pain Chest pain can be [...] Follow these instructions at home: Medicines Take gqly-eia-znicdgb and prescription medicines only as told by [...] ?Eating a heart-healthy diet. A diet and costume specialist (dietitian) can help you to learn [...] provider. Document Revised: 06/28/2021 Document Reviewed: 06/28/2021 [employer] Patient Education 2022 Cloneless. 07/19/2023 12:49:00 Chest Wall Pain, Vpkl-ou-Dcpl Chest Wall Pain Chest wall pain is [...] are safe for you. General instructions Take kfpa-pxw-xdfbtsf and prescription medicines only as told by [...] provider. Document Revised: 07/17/2021 Document Reviewed: 06/29/2021 [employer] Patient Education 2022 Cloneless. Follow Up Care 07/19/2023 09:27:13 With:Krystle Ireland Address: [address] [place] [address], [address] [place] [phone] Business (1) When:Within 3 Day(s) [facility]03-23-2024 Evaluation + Plan noteExtracted from: Title:ED Note Author:Ulisses Mckinney PA-C te:07/19/23 Bronchitis (J40: Bronchitis, not specified as acute or chronic) Nonspecific chest pain (R07.9: Chest pain, unspecified) Orders: azithromycin, 250 mg, Oral, As Directed, # 6 tab(s), Refills(s) 0, Pharmacy: [facility] #[id number], 160, cm, 07/19/23 9:32:00 EDT, Height/Length Dosing, [...] day(s), # 21 tab(s), Refills(s) 0, Pharmacy: [facility] #[id number], 160, cm, 07/19/23 9:32:00 EDT, Height/Length Dosing, [...] 12 tab(s), Refills(s) 0, Pharmacy: [facility] #[id number], 160, cm, 07/19/23 9:32:00 EDT, Height/Length Dosing, [...] Scheduled Provider: Location:.CARDIO Appointment Type:CV Holter/Event (FT) [facility]03-16-2024 Hospital Discharge instructions Patient Education [...] the electrical activity of the heart. ?Ambulatory alarm security or surveillance monitor. This records your heartbeats for 24 hours or more. You may be referred to a youth care specialist (lay out carpenter). How is this treated? Treatment for this [...] to keep your urine pale yellow. Take kwbq-bfj-andqnri and prescription medicines only as told by [...] provider. Document Revised: 08/23/2021 Document Reviewed: 08/23/2021 [employer] Patient Education 2022 Cloneless. 07/12/2023 20:02:42 Hypokalemia Hypokalemia Hypokalemia means that [...] products, such as yogurt. General instructions Take lerj-whe-mgrvbes and prescription medicines only as told by [...] provider. Document Revised: 12/27/2021 Document Reviewed: 12/27/2021 [employer] Patient Education 2022 Cloneless. Follow Up Care 07/12/2023 17:35:23 With:Rogelio LUTZ Address: [address] [place] [address]- [phone] Business (1) When:07/19/2023 19:46:40 With:Krystle Ireland Address: [address], [address] [place] [address]- Business (1) When:Within 3 Day(s) [facility]03-13-2024 Hospital Discharge instructions Patient Education [...] numbers. This can be done either in [place] ([place].S[place] or metric measurements. Note that charts and online BMI calculators are available to help you find your BMI quickly and easily without having to do these calculations yourself. To calculate your BMI in [place] ([place].S[place] measurements: 1.Measure your weight in pounds [...] Centers for Disease Control and Prevention: www.cdc.gov [place] [employer]: www.heart.org National Heart, Lung, and Blood [place]: www.nhlbi.nih.gov Summary Body mass index (BMI) is a number that is calculated from a person's weight and height. BMI may help estimate how much of a person's weight is composed of fat. BMI can help identify thosewho may be at higher risk for certain medical problems. BMI can be measured using Swiss measurements or metric measurements. BMI charts are used to identify whether you are underweight, normal weight, overweight, or obese. This information is not intended to replace advice given to you by your health care provider. Make sure you discuss any questions you have with your health care provider. Document Revised: 01/05/2020 Document Reviewed: 11/12/2019 [employer] Patient Education 2022 Cloneless. 07/09/2023 17:05:07 Abdominal Pain, Adult Abdominal Pain, [...] Follow these instructions at home: Medicines Take pldw-nrm-tvlornl and prescription medicines only as told by [...] Watch your condition for any changes. Take gciy-lby-zzzcmyq and prescription medicines only as told by [...] provider. Document Revised: 06/02/2020 Document Reviewed: 08/23/2019 [employer] Patient Education 2022 Cloneless. Follow Up Care 07/09/2023 12:39:40 With:Krystle Ireland CNP Address: [address] [place] [address], [address] [place] [address]- When: Unknown [facility] 03-11-2024 Hospital Discharge [...] Follow these instructions at home: Medicines Take boia-wjc-qmbthmt and prescription medicines only as told by [...] Watch your condition for any changes. Take hczs-jxs-bsnmyki and prescription medicines only as told by [...] provider. Document Revised: 06/02/2020 Document Reviewed: 08/23/2019 [employer] Patient Education 2022 Cloneless. Follow Up Care 07/07/2023 11:03:13 With:Krystle Ireland Address: [address] [place] [address], [address] [place] [address] Business (1) When:07/10/2023 12:52:46 [facility]03-11-2024 Hospital Discharge instructions Patient Education 07/07/2023 11:15:13 Steps to Quit Smoking, Tffg-mw-Jiff Steps to Quit Smoking Smoking tobacco is [...] a prescription, and some you can buy qbmw-gog-mrbxzpb. Some medicines may contain a drug called [...] you. Call a phone quitline, such as 8-781-GQJFConexus-ITNOW, reach out to support groups, or work [...] provider. Document Revised: 04/05/2022 Document Reviewed: 04/05/2022 [employer] Patient Education 2022 Cloneless. 07/07/2023 11:15:10 BMI for Adults BMI for [...] numbers. This can be done either in [place] (U.S[place] or metric measurements. Note that charts and online BMI calculators are available to help you find your BMI quickly and easily without having to do these calculations yourself. To calculate your BMI in Swiss ([place].S.) measurements: 1.Measure your weight in pounds [...] Centers for Disease Control and Prevention: www.cdc.gov [place] Heart Association: www.heart.org National Heart, Lung, and Blood [place]: www.nhlbi.nih.gov Summary Body mass index (BMI) is a number that is calculated from a person's weight and height. BMI may help estimate how much of a person's weight is composed of fat. BMI can help identify thosewho may be at higher risk for certain medical problems. BMI can be measured using Swiss measurements or metric measurements. BMI charts are used to identify whether you are underweight, normal weight, overweight, or obese. This information is not intended to replace advice given to you by your health care provider. Make sure you discuss any questions you have with your health care provider. Document Revised: 01/05/2020 Document Reviewed: 11/12/2019 [employer] Patient Education 2022 Cloneless. 07/07/2023 11:15:04 Dysuria Dysuria Dysuria is pain [...] Follow these instructions at home: Medicines Take wznj-lmi-cdbufsk and prescription medicines only as told by [...] provider. Document Revised: 11/24/2020 Document Reviewed: 11/24/2020 [employer] Patient Education 2022 Cloneless. 07/07/2023 11:15:01 Abdominal Pain, Adult, Ongs-cc-Ycnb Abdominal Pain, Adult Many things can cause belly (abdominal) pain. Most times, belly pain is not dangerous. Many cases of belly pain can be watched and treated at home. Sometimes, though, belly pain is serious. Your doctor will try to find the cause of your belly pain. Follow these instructions at home: Medicines Take cpkh-bfb-wsitkhf and prescription medicines only as told by [...] your belly pain for any changes. Take goeq-kwq-qjemblg and prescription medicines only as told by [...] provider. Document Revised: 08/23/2019 Document Reviewed: 08/23/2019 [employer] Patient Education 2022 Cloneless. 07/07/2023 11:14:57 Flank Pain, Adult, Gnld-hm-Xyix Flank Pain, Adult Flank pain is pain [...] Rest as told by your doctor. Take xkbo-hco-qngnnzh and prescription medicines only as told by [...] right away. Call your local emergency services ([address] int[address] [place] Do not wait to see [...] provider. Document Revised: 06/25/2021 Document Reviewed: 06/25/2021 [employer] Patient Education 2022 Cloneless. Follow Up Care 07/07/2023 09:06:09 With:Krystle Ireland CNP Address: [address] [place] [address], [address] [place] [address]- When: Unknown With:Emergency room Address: When:Within 1 Day(s) Comments:Patient instructed to contact emergency room for any worsening lower abdominal pain or worsening right flank pain, for further evaluation and treatment and assessment. Patient agrees with the plan. [facility] 03-03-2024 Evaluation + [...] Therapy PT & PTT Rapid COVID Antigen ([facility]) Saline Lock Insert Troponin 0 Hr. XR [...] the Naprosyn she will then take 1 [place] that we will dispense. She is scheduled to follow-up with her family doctor tomorrow morning. [facility]03-03-2024 Hospital Discharge instructions Patient Education [...] the electrical activity of the heart. ?Ambulatory alarm security or surveillance monitor. This records your heartbeats for 24 hours or more. You may be referred to a youth care specialist (lay out carpenter). How is this treated? Treatment for this [...] to keep your urine pale yellow. Take ohom-rdy-sdqhfqq and prescription medicines only as told by [...] provider. Document Revised: 08/23/2021 Document Reviewed: 08/23/2021 [employer] Patient Education 2022 Cloneless. 06/29/2023 08:58:56 Nonspecific Chest Pain, Adult, Gzwh-uf-Ohpo Nonspecific Chest Pain Chest pain can be [...] Follow these instructions at home: Medicines Take tmrl-rdk-cfahmbo and prescription medicines only as told by [...] ?Eating a heart-healthy diet. A diet and costume specialist (dietitian) can help you to learn [...] provider. Document Revised: 06/28/2021 Document Reviewed: 06/28/2021 [employer] Patient Education 2022 Cloneless. Follow Up Care 06/29/2023 06:08:42 With:Krystle Ireland Address: [address] [place] [address], [address] [place] [address]- Business (1) When:06/30/2023 08:46:18 Comments:As scheduled [facility]02-17-2024 Hospital Discharge instructions Patient Education 06/14/2023 09:20:58 Pharyngitis, Mqwv-dr-Bnot Pharyngitis Pharyngitis is a sore throat (pharynx). [...] Follow these instructions at home: Medicines Take zetw-gab-avypfdt and prescription medicines only as told by [...] and water are not available, use hand court manager. Do not touch your eyes, nose, or [...] provider. Document Revised: 07/11/2021 Document Reviewed: 07/11/2021 [employer] Patient Education 2022 Cloneless. Follow Up Care 06/14/2023 08:47:19 With:Krystle Ireland Address: [address] [place] [address], [address] [place] [address]- Business (1) When:06/17/2023 09:01:25 [facility]02-03-2024 Evaluation + Plan noteExtracted from: Title:ED Note Author:Sy Pickard PA-C te:05/31/23 Abdominal pain (R10.9: Unspe cified abdominal pain) Diarrhea, unspecified (R19.7: Diarrhea, unspecified) Nausea vomiting and diarrhea (R11.2: Nausea with vomiting, unspecified) Orders: dicyclomine, 20 mg = 1 tab(s), Oral, TID, X 7 day(s), # 21 tab(s), Refills(s) 0, Pharmacy: [facility] #[id number], 160, cm, 05/31/23 8:12:00 EST, Height/Length Dosing, [...] TID, # 15 tab(s), Refills(s) 0, Pharmacy: [facility] #[id number], 160, cm, 05/31/23 8:12:00 EST, Height/Length Dosing, [...] XR Spine Lumbosacral Minimum 4 Views 06/26/22 [facility]02-03-2024 Hospital Discharge instructions Patient Education [...] Follow these instructions at home: Medicines Take mtbq-mhi-nwyqfck and prescription medicines only as told by [...] Watch your condition for any changes. Take poda-ahx-nqnrvaa and prescription medicines only as told by [...] provider. Document Revised: 06/02/2020 Document Reviewed: 08/23/2019 [employer] Patient Education 2022 Cloneless. Follow Up Care 05/31/2023 08:01:25 With:Krystle Ireland Address: [address] [place] [address], [address] [place] [phone] Business (1) When:06/03/2023 11:01:28 [facility]12-19-2023 Hospital Discharge instructions Patient Education 04/15/2023 12:14:04 Nosebleed, Adult, Jlhg-he-Xzho Nosebleed, Adult A nosebleed is when blood [...] your nosebleed was caused by dryness, use jkcc-iep-tljbfgz saline nasal spray or gel and a [...] provider. Document Revised: 04/23/2022 Document Reviewed: 04/23/2022 [employer] Patient Education 2022 Cloneless. Follow Up Care 04/15/2023 11:30:17 With:Erin DC, Zabrina Hurley Address: [address] [place] [address], [address] [place] [id number]- When:1 to 2 days [facility]12-19-2023 Evaluation + Plan noteExtracted from: Title:ED Note Author:Savanna Rivero PA-C Date :04/15/23 1. Epistaxis (R04.0: Epistax is) Future Scheduled Tests Radiology* XR Spine Lumbosacral Minimum 4 Views 06/26/22 [facility]12-04-2023 History of Present illness Narrative* Regi Hunter PA-C - 03/31/2023 11:00 AM EST POV after 03/24/23 nasal surgery Doing well, endorses improved breathing bilaterally Continues salt water sprays and vaseline to nares Nasal splint removed Septum midline Nasal valve patent Incisions c/d/I Continue nasal saline sprays and ointment to nares RTC 4-6 months or PRN documented in this [facility] Work Phone: 1(880) 544-323912-03-2023 Hospital Discharge instructions Patient Education 03/30/2023 16:47:32 [...] Get up and walk. IV patient-controlled analgesia ([place] ATTORNEY) pump With this method, you receive pain medicine through an IV that is connected to a [place] ATTORNEY pump. The [place] ATTORNEY pump gives you a specific amount of medicine when you push a button. This lets you control how much medicine you receive. You are the only person who should push this button. The pump is set up so that you cannot accidentally give yourself too much medicine. You will be able to start using your [place] ATTORNEY pump in the recovery room after your [...] provider. Document Revised: 07/12/2021 Document Reviewed: 07/12/2021 [employer] Patient Education 2022 Cloneless. 03/30/2023 16:47:32 Acute Pain, Adult Acute Pain, [...] Follow these instructions at home: Medicines Take tfms-hok-vrmvqcf and prescription medicines only as told by [...] pain is severe. ?Do not take other zqsb-rsg-uokwggy pain medicines in addition to prescription pain [...] grains, and fresh fruits and vegetables. ?Take zdau-bfp-visetil or prescription medicines. ?Limit foods that are [...] or you are no longer ill. Take zqli-hnb-iutnfbq and prescription medicines only as told by [...] provider. Document Revised: 08/29/2022 Document Reviewed: 08/30/2019 [employer] Patient Education 2022 Cloneless. Follow Up Care 03/30/2023 15:25:42 With:Krystle Ireland Address: [address] [place] [address], [address] [facility] (1) When:04/02/2023 16:20:27 Comments:Follow-up with your primary care provider in 3 to 5 days. If symptoms worsen, do not improve, or new symptoms arise please report back to emergency department for further evaluation. [facility]11-27-2023 Hospital Discharge instructions* Discharge Instructions* Lavinia Potter MD - 03/24/2023 7:36 AM EST FACIAL PLASTIC SURGERY POSTOPERATIVE INSTRUCTIONS NASAL SURGERY Important Phone Numbers Dr. Thiago Cuellar: [phone] Debbie Bowden R.N. Evenings/Weekends Emergency: [phone] - please ask for the ENT resident [...] medical attention if you develop fever greater cqis460 degrees, excessive bleeding, excessive pain that is [...] your next scheduled visit. documented in this [facility] Work Phone: 1(337) 838-228611-14-2023 Hospital Discharge instructions Follow Up Care 03/11/2023 13:00:37 With:Krystle Ireland CNP Address: [address] [place] [address], [address] [place] [id number]- When: Unknown [facility] 11-10-2023 Note* ADRIANA/BRIGHT [...] valve repair, reconstruction rhinoplasty on 03/24/2023 at [facility]. ACTIVE PROBLEMS Patient Active Problem List Diagnosis [...] pounds; BMI: 24.09 LABS CHEMISTRY COMMON GROUP [facility] [employer] [facility]07/20/2021 Component 07/20/2021 07/20/2021 07/20/2021 07/20/2021 07/19/2021 [...] -- -- -- >90.0 EGFR IF NonAfrican Northern [place] -- -- -- -- -- >90.0 Calcium -- -- -- -- -- 7.6 Low Total Protein -- -- -- -- -- 6.3 POC Glucose 114 High 148 High 109 High 184 High 112 High -- CELL COUNT AND DIFFERENTIATION GROUP [facility] [employer] [facility]07/19/2021 Component 07/19/2021 WBC 21.9 High RBC 4.05 Hemoglobin 12.1 Hematocrit 36.3 MCV 89.5 MCH 29.9 MCHC 33.4 RDW 14.7 High Platelets 381 MPV 8.1 IMAGING none ASSESSMENT/PLAN Nasal obstructive breathing Septoplasty, inferior turbinate reductions, nasal valve repair, reconstruction rhinoplasty This note was created in part upon personal review of patient's medical records. [facility] Work Phone: 1(337) 371-194811-10-2023 Miscellaneous Notes* CPM/PAT H&P - Neisha Desouza [...] valve repair, reconstruction rhinoplasty on 03/24/2023 at [facility]. ACTIVE PROBLEMS Patient Active Problem List Diagnosis [...] pounds; BMI: 24.09 LABS CHEMISTRY COMMON GROUP [facility] [employer] [facility]07/20/2021 Component 07/20/2021 07/20/2021 07/20/2021 07/20/2021 07/19/2021 [...] -- -- -- >90.0 EGFR IF NonAfrican Northern Irish -- -- -- -- -- >90.0 Calcium -- -- -- -- -- 7.6 Low Total Protein -- -- -- -- -- 6.3 POC Glucose 114 High 148 High 109 High 184 High 112 High -- CELL COUNT AND DIFFERENTIATION GROUP [facility] [employer] [facility]07/19/2021 Component 07/19/2021 WBC 21.9 High RBC [...] Checklist Your surgery has been scheduled at [facility] at [address] in [place], [place], [facility], [address], in the [facility]. Parking is to the left of [...] call by 3:00 pm you may call [phone] between the hours of 3:00 and 4:00 [...] *If you need help with quitting, call 1-039-BRHL-NOW. Alcohol: *No alcoholic beverages for 48 hours before surgery. AFTER OUTPATIENT SURGERY: *A responsible adult MUST accompany you at the time of discharge and stay with you for 24 hours after your surgery. *You may NOT drive yourself home after surgery. *You may use a taxi or ride sharing service ([employer], [employer]) to return home ONLY if you are [...] regarding these preoperative instructions you may call [phone]. If you have questions regarding you surgical procedure, or post- operative care/recovery please call yoursurgeon's office. Link to [facility] [employer] [email or web address] documented in this [facility] Work Phone: 1(739) 386-737411-10-2023 Note* Preprocedure Instructions - Neisha Desouza PA-C - 03/07/2023 9:48 AM EST No outpatient medications have been marked as taking for the 03/24/23 encounter (Hospital Encounter). Pre-Op Instructions & Checklist Your surgery has been scheduled at [facility] at [address] [place], [address], [address], in the [facility]. Parking is to the left [...] call by 3:00 pm you may call [phone] between the hours of 3:00 and 4:00 [...] *If you need help with quitting, call 1-395-NMHE-NOW. Alcohol: *No alcoholic beverages for 48 hours before surgery. AFTER OUTPATIENT SURGERY: *A responsible adult MUST accompany you at the time of discharge and stay with you for 24 hours after your surgery. *You may NOT drive yourself home after surgery. *You may use a taxi or ride sharing service ([employer], [employer]) to return home ONLY if you are [...] regarding these preoperative instructions you may call [phone]. If you have questions regarding you surgical procedure, or post- operative care/recovery please call yoursurgeon's office. Link to [facility] [employer] [email or web address] =[email or web address] [facility] Work Phone: 1(335) 404-897810-12-2023 History of Present illness Narrative* Thiago Cuellar [...] Nasopharynx: Clear, no discharge, no masses/lesions Modified [place] Maneuver: Performed with a cotton tipped applicator, [...] turbinate reduction with lateralization. documented in this [facility] Work Phone: 1(973) 585-593109-29-2023 Hospital Discharge instructions Patient Education 01/24/2023 10:02:23 [...] home: Managing pain, stiffness, and swelling Take ceso-vul-qynjmsz and prescription medicines only as told by [...] each day. Do not sit, drive, or plumbing hardware assembler one place for more than 30 minutes [...] put less stress on your back. Take fkiw-usm-nftaqbu and prescription medicines only as told by your health care provider, and apply heat or ice as told. This information is not intended to replace advice given to you by your health care provider. Make sure you discuss any questions you have with your health care provider. Document Revised: 07/06/2021 Document Reviewed: 07/06/2021 [employer] Patient Education 2022 Cloneless. 01/24/2023 10:00:27 Acute Back Pain, Adult Acute [...] home: Managing pain, stiffness, and swelling Take uesv-qfk-zjucfcg and prescription medicines only as told by [...] each day. Do not sit, drive, or plumbing hardware assembler one place for more than 30 minutes [...] put less stress on your back. Take kqck-dqm-wvzrgoc and prescription medicines only as told by your health care provider, and apply heat or ice as told. This information is not intended to replace advice given to you by your health care provider. Make sure you discuss any questions you have with your health care provider. Document Revised: 07/06/2021 Document Reviewed: 07/06/2021 [employer] Patient Education 2022 Cloneless. Follow Up Care 01/24/2023 09:07:50 With:Krystle Ireland CNP Address: [address] [place] [address], [facility] [address] [place] [address]- When: Unknown With:Krystle Ireland CNP Address: [address] [place] [address], [address] [address]- When: Unknown [facility] 09-20-2023 Hospital Discharge [...] home: Managing pain, stiffness, and swelling Take ydvc-kcw-uujxogq and prescription medicines only as told by [...] each day. Do not sit, drive, or plumbing hardware assembler one place for more than 30 minutes [...] put less stress on your back. Take yrdl-rkz-gvdwfud and prescription medicines only as told by your health care provider, and apply heat or ice as told. This information is not intended to replace advice given to you by your health care provider. Make sure you discuss any questions you have with your health care provider. Document Revised: 07/06/2021 Document Reviewed: 07/06/2021 [employer] Patient Education 2022 Cloneless. Follow Up Care 01/15/2023 13:09:14 With:Krystle Ireland CNP Address: [address] [place] [address], [facility] [address] [place] [address]- When: Unknown [facility] 03-08-2023 Evaluation + [...] XR Spine Lumbosacral Minimum 4 Views 06/26/22 [facility]03-08-2023 Hospital Discharge instructions Patient Education [...] This condition may be caused by: A technology integration specialist the eye. A gritty or irritating substance [...] in diseases and conditions of the eye (inspector heating and refrigeration). This condition may be diagnosed based on your medical history, symptoms, and an eye exam. Before the eye exam, numbing drops may be put into your eye. You may also have dye put in your eye with a dropper or a small paper strip. The dye makes the abrasion easy to see when your inspector heating and refrigeration examines your eye with a light. Your inspector heating and refrigeration may look at your eye through an [...] if you start to feel better. Take gqpb-igm-soyamxk and prescription medicines only as told by your health care provider. Ask your health care provider if the medicine prescribed to you: ?Requires you to avoid driving or using heavy machinery. ?Can cause constipation. You may need to take these actions to prevent or treat constipation: ?Drink enough fluid to keep your urine pale yellow. ?Take tytq-ins-fldvqtp or prescription medicines. ?Eat foods that are [...] wearing an eye patch. Your ability to strategic account manager distances will be impaired. ?Follow instructions from [...] machinery while wearing it. Your ability to strategic account manager distances will be impaired. Let your health care provider know if your symptoms continue for more than 2 days. This information is not intended to replace advice given to you by your health care provider. Make sure you discuss any questions you have with your health care provider. Document Released: 04/11/2001 Document Revised: 08/20/2019 Document Reviewed: 08/20/2019 [employer]int[employer] Patient Education 2019 Cloneless. Follow Up Care 07/03/2022 08:23:25 With:Gayla Dunbar Address: [facility] [address] [place] [address] [address] [place] [address]- Business (1) When:07/06/2022 09:34:59 Comments:Follow-up with ophthalmology With:Krystle Ireland Address: [address] [place] [address], [address] [place] [address]- Business (1) When:Within 3 Day(s) [facility]03-01-2023 Evaluation + Plan note Future Scheduled Tests Radiology* XR Spine Lumbosacral Minimum 4 Views 06/26/22 [facility]05-20-2022 Hospital Discharge instructions Patient Education 09/14/2021 19:56:26 Abdominal Pain, Adult, Ijkr-jx-Xsje Abdominal Pain, Adult Many things can cause belly (abdominal) pain. Most times, belly pain is not dangerous. Many cases of belly pain can be watched and treated at home. Sometimes, though, belly pain is serious. Your doctor will try to find the cause of your belly pain. Follow these instructions at home: Medicines Take pxfs-cnm-knbcywa and prescription medicines only as told by [...] your belly pain for any changes. Take vqyi-jiy-kpwsxti and prescription medicines only as told by [...] 09/30/2008 Document Revised: 08/23/2019 Document Reviewed: 08/23/2019 [employer]int[employer] Patient Education 2020 Cloneless. 09/14/2021 18:04:24 Burn Care, Adult, Vozo-bt-Kccg Burn Care, Adult A burn is an [...] ?Pus or a bad smell. Medicine Take vtkc-pyg-dmzikmg and prescription medicines only as told by [...] 01/21/2009 Document Revised: 08/04/2019 Document Reviewed: 10/01/2016 Tintri Patient Education 2020 Cloneless. Follow Up Care 09/14/2021 17:36:21 With:Beka SPICER Krystle L Address: [address], [address] [place] [address] When:09/17/2021 With:Shiela DC, Miguel Angel Swan, [facility] Address: [address] [place], [place] [id number] When:2 to 4 days [facility]03-25-2022 Note Attestation signed by Misti Ziegler MD at 07/21/2021 8:31 AM [facility] See note from today. The patient will follow up in [place] with Dr Antonio and precautions were addressed Less than 30 minutes spent Misti Ziegler MD Department of Obstetrics and Gynecology [facility] Discharge Summary Admission on 07/18/2021 11:34 PM Alejandra Real is a 25 y.o. at 33w6d who was admitted for tPTL. Patient transferred from [facility] after making change from 1-->3cm after office visit. At OSH received BMZx1, PCN, terbutaline x3, 20mg procardia, and magnesium sulfate. Abruption labs were obtained and negative. Upon admission to [facility] patient was unchanged and CTX q3min. Patient was started on Procardia 10mg q6hr until she was 34w0d. BMZx2 was administered on 07/19. A growth US was obtained 07/19 and showed EFW 2494g (57%ile) with normal DAGOBERTO. Pt was uncomfortable enough on arrival and received epidural, however did not make any cervical exchange architect he course of a day and ctx [...] Threatened Labor Follow up appointment with your doctor/cash register repairer - Keep next scheduled appointment Activity - Off feet as much as possible Call your doctor/cash register repairer if you have: - leaking fluid - vaginal bleeding - regular contractions: Every 5 minutes or closer for one hour - decreased movement - worsening abdominal (belly) pain - headache, blurry vision, increased swelling, upper abdominal pain Renetta Lam, DO on 07/20/2021 at 3:48 [facility]03-25-2022 Hospital Discharge instructions* Instructions* Tera Martin MD - 07/20/2021 Follow up appointment with your doctor/cash register repairer - call your administrative fellow for follow up within the next week Activity - Normal Activity, however no heavy lifting or intercourse Call your doctor/cash register repairer if you have: - leaking fluid - [...] related visit on 07/20/21. Tera Martin MD [facility] documented in this [facility] Work Phone: [phone]) 905-421003-25-2022 History of Present illness Narrative* Mirtha Joshi [...] (OB) epidural 8 mL/hr Epidural Continuous Bobara Home Economist Consumer Service, HOME THERAPY TEACHER - FUEL CELL REPAIRER And ropivacaine 0.2% in sodium chloride 0.9% (OB) epidural syringe Epidural Continuous Bobara Home Economist Consumer Service, HOME THERAPY TEACHER - FUEL CELL REPAIRER Assessment/Plan: Alejandra Real is a 25 y.o. [...] AM EDT cM/(Farideh) tPTL documented in this [facility] Work Phone: Evaluation + Plan note No data available for this section [facility] Future Appointments Appointment Date:07/18/2022 11:00:00 AM Scheduled Provider: Location:FT.CARDIO Appointment Type:CV Echo (FT) Future Scheduled Tests Radiology* Echo Transthoracic Complete 07/18/22 * XR Spine Lumbosacral Minimum 4 Views 06/26/22 [facility] Evaluation + Plan note Future Appointments Appointment Date:09/27/2022 09:00:00 AM Scheduled Provider: Location:.CARDIO Appointment Type:CV Echo (FT) Future Scheduled Tests Radiology* Echo Transthoracic Complete 09/27/22 * XR Spine Lumbosacral Minimum 4 Views [facility]26/22 [facility] Future Appointments Appointment Date:05/13/2023 10:00:00 AM Scheduled Provider: Location:.[place]ICAL [place] Appointment Type:PT Eval (FT) Future Scheduled Tests Radiology* XR Spine Lumbosacral Minimum 4 Views 06/26/22 [facility] evaluation + Plan note Future Appointments Appointment Date:05/28/2023 01:45:00 PM Scheduled Provider: Location:.[place] Appointment Type:PT Eval (FT) Future Scheduled Tests Radiology* XR Spine Lumbosacral Minimum 4 Views [facility]/26/22 [facility] Future Appointments Appointment Date:06/17/2023 10:15:00 AM Scheduled Provider: Location:.[place] Appointment Type:PT 45 (FT) Appointment Date:06/18/2023 11:00:00 AM Scheduled Provider: Location:.[place] Appointment Type:PT 45 (FT) Appointment Date:06/20/2023 01:00:00 PM Scheduled Provider: Location:.[place] Appointment Type:PT Re-Eval 45 (FT) Future Scheduled Tests Radiology* XR Spine Lumbosacral Minimum 4 Views [facility]/26/22 [facility] Future Appointments Appointment Date:07/08/2023 08:45:00 AM Scheduled Provider: Location:.[place] Appointment Type:PT Re-Eval 45 (FT) [facility] Evaluation + Plan note Future Appointments Appointment Date:07/08/2023 08:45:00 AM Scheduled Provider: Location:.[place]ICAL [place] Appointment Type:PT Re-Eval 45 (FT) Diagnostic Tests Pending * Urine Culture 07[facility]07/23 [facility] Future Appointments Appointment Date:08/04/2023 11:00:00 AM Scheduled Provider: Location:.CARDIO Appointment Type:CV Holter/Event (FT) Appointment Date:08/06/2023 07:00:00 AM Scheduled Provider: Location:.ULTRASOUND Appointment Type:US Abdominal/Pelvis (FT) Future Scheduled Tests Radiology* US Abdomen Complete [facility]06/23 [facility] Future Appointments Appointment Date:08/06/2023 07:00:00 AM Scheduled Provider: Location:.[facility]OUND Appointment Type:US Abdominal/Pelvis (FT) Future Scheduled Tests Radiology* US Pelvis Non-OB Complete 08/06/23 * US Transvaginal Non-OB 08/06/23 [facility] Future Appointments Appointment Date:11/03/2023 10:45:00 AM Scheduled Provider:Fatoumata Gooden MD Location[facility] Appointment Type:Vascular Follow Up (FT) [facility] Future Appointments Appointment Date:11/03/2023 10:45:00 AM Scheduled Provider:Fatoumata Gooden MD Location[facility] Clinic Appointment Type:Vascular Follow Up (FT) Appointment Date:11/17/2023 01:45:00 PM Scheduled Provider:Cristóbal Granados DO Location:.[facility] [place] Appointment Type:Pain Management - New (FT) [facility] Future Appointments Appointment Date:11/17/2023 01:45:00 PM Scheduled Provider:Cristóbal Granados DO Location:.[facility] [place] Appointment Type:Pain Management - New (FT) [facility] Future Appointments Appointment Date:11/27/2023 08:15:00 AM Scheduled Provider:Cristóbal Granados DO Location:.[facility] [place] Appointment Type:Pain Management - New () [facility] Evaluation + Plan note Future Appointments Appointment Date:11/27/2023 08:15:00 AM Scheduled Provider:Cristóbal Granados DO Location:.[facility] [place] Appointment Type:Pain Management - New (FT) Diagnostic Tests Pending * RPR with Conf Rfx 11/24/23 * HIV Screen 4th Generation wRfx 11/24/23 * Acute Hepatitis A B C Panel 11/24/23 [facility] Evaluation note* Diagnosis Threatened labor, antepartum Threatened premature labor, antepartum documented in this encounter [facility] Work Phone: Evaluation note* Diagnosis Difficulty breathing- Primary Other dyspnea and respiratory abnormality Nasal septal deviation Deviated nasal septum Hypertrophy of inferior nasal turbinate Collapse of nasal valve Nasal congestion Other diseases of nasal cavity and sinuses Deviated septum Deviated nasal septum documented in this encounter [facility] Work Phone: Evaluation note* Diagnosis [...] inferior nasal turbinate documented in this encounter [facility] Work Phone: Evaluation note* Diagnosis Deviated septum- Primary Deviated nasal septum Nasal congestion Other diseases of nasal cavity and sinuses Difficulty breathing Other dyspnea and respiratory abnormality Collapse of nasal valve Hypertrophy of inferior nasal turbinate documented in this encounter [facility] Work Phone: Evaluation noteNo assessment information available [facility] Work Phone: Hospital Discharge instructions No data available for this section [facility] Additional Instructions Continue taking your Naprosyn and Tylenol for minor pain [place] for severe pain You cannot work or drive when taking [place] Follow-up with your POSTBED STITCHER call tomorrow for 7-year-old here appointment Return here if any problems persist or worsen as discussed[facility] Work Phone: Hospital Discharge instructions Additional Instructions Take 1 hydrocodone every 6 hours for severe pain Continue the other medications as needed Follow-up with the specialist as scheduled Return to the ER for high fever vomiting more severe pain or any other concerns [facility] Work Phone: Hospital Discharge instructions Additional Instructions If your symptoms return/worsen or you develop any further concerns or symptoms please see your doctor or return to the emergency department immediately.[facility] Work Phone: Hospital Discharge instructions Additional Instructions 1. Must follow up with pcp for any additional tramadol 2. [facility] Work Phone: Progress note No data available for this section [facility] Care Advance Directives No Advanced Directives [...] of nose [M95.0] Nasal congestion [R09.81] Procedures MO SEPTOPLASTY/SUBMUCOUS RESECJ W/WO CARTILAGE GRF MO RHINOPLASTY PRIMARY W/MAJOR SEPTAL REPAIR MO REPAIR NASAL VESTIBULAR STENOSIS MO SUBMUCOUS RESCJ INFERIOR TURBINATE PRTL/COMPL MO FRACTURE NASAL INFERIOR TURBINATE THERAPEUTIC Septoplasty, Inferior turbinate reduction, Nasal valve repair, Reconstructive rhinoplasty; CASE LENGTH= 2.5 HOURS Reconstructive rhinoplasty Repair Nasal Valve Excision Nasal Turbinate Fracture [place] [address] [place] [address] [facility] [address] [place] [address] Referral ID Status Reason Start Date Expiration Date Visits Re quested Visits Authorized [id number] 1 1 Reason Comments Post-op Visit Scheduled [...] 0946, Intraprocedure 0946 (Given - Provid er: Thiaog Cuellar MD) oxyCODONE-acetaminophen (Percocet) 5-325 mg per [...] section and content) DATE CREATED AUTHOR 07/29/2021 [facility] DATE CREATED AUTHOR AUTHOR'S ORGANIZ ATION 04/07/2023 [facility] DATE CREATED AUTHOR AUTHOR'S ORGANIZ ATION 05/04/[address] [place] [address] Ambulatory DATE CREATED AUTHOR AUTHOR'S ORGANIZ ATION 08/27/2023 [facility] EPIC DATE CREATED AUTHOR AUTHOR'S ORGANIZ ATION 08/30/2023 [facility] DATE CREATED AUTHOR AUTHOR'S ORGANIZ ATION 09/19/2023 [facility] DATE CREATED AUTHOR AUTHOR'S ORGANIZ ATION 09/21/2023 [facility] DATE CREATED AUTHOR AUTHOR'S ORGANIZ ATION 09/22/2023 [facility] DATE CREATED AUTHOR AUTHOR'S ORGANIZ ATION 09/25/2023 [facility] DATE CREATED AUTHOR AUTHOR'S ORGANIZ ATION 09/26/2023 [facility] DATE CREATED AUTHOR AUTHOR'S ORGANIZ ATION 09/27/2023 [facility] DATE CREATED AUTHOR AUTHOR'S ORGANIZ ATION 09/28/2023 [facility] DATE CREATED AUTHOR AUTHOR'S ORGANIZ ATION 10/03/2023 [facility] DATE CREATED AUTHOR AUTHOR'S ORGANIZ ATION 10/05/2023 [facility] DATE CREATED AUTHOR AUTHOR'S ORGANIZ ATION 10/19/2023 [facility] DATE CREATED AUTHOR AUTHOR'S ORGANIZ ATION 10/23/2023 [facility] DATE CREATED AUTHOR AUTHOR'S ORGANIZ ATION 10/25/2023 [facility] DATE CREATED AUTHOR AUTHOR'S ORGANIZ ATION 10/31/2023 [facility] DATE CREATED AUTHOR AUTHOR'S ORGANIZ ATION 11/03/2023 [facility] DATE CREATED AUTHOR AUTHOR'S ORGANIZ ATION 11/20/2023 [facility] DATE CREATED AUTHOR AUTHOR'S ORGANIZ ATION 11/28/2023 [facility] DATE CREATED AUTHOR AUTHOR'S ORGANIZ ATION 12/02/2023 [facility] DATE CREATED AUTHOR AUTHOR'S ORGANIZ ATION 12/07/2023 [facility] Patient Care team informatio n (unrecognized section and content) Oil Dispatcher Relationship Specialty Start Date End Date Gilbert Valverde DO [address] [place] [address] PCP - General Family Medicine 02/06/23 Oil Dispatcher Relationship Specialty Start Date End Date LinkGilbert DO PCP - General Family Medicine 02/06/23 Oil Dispatcher Relationship Specialty Start Date End Date LinkGilbert [...] 2023 End: September 04, 2023 Felisa Tay [facility] Emergency Provider Active Start: September [...] BE BASED ON THE PRIMARY CLINICAL RECORDS. [employer] [facility]. provides no warranty or guarantee of the accuracy or completeness of information in this document.
[2023-12-09 07:25] VITALS: BP 125/66; PULSE 84; TEMP 37.1; O2SAT 100; BMI 22.3
--- NOTE | 2023-12-09 07:41 | ED_ITS ---
HPI HPI - General Adult General Chief complaint: Recheck/Abnormal Lab/Rx Stated complaint: LEFT SIDE ABDOMINAL PAIN Time Seen by Provider: 12/09/23 07:29 Source: patient Mode of arrival: walk-in Limitations: no limitations History of Present Illness HPI narrative: 28-year-old female presented to the emergency for chronic abdominal pain. She states she has pelvic congestion syndrome and is scheduled for surgery, coil placement, later this month. She ran out of her pain medication. No new symptoms. No fever or injury. Related Data Home Medications ?Medication ?Instructions ?Recorded ?Confirmed baclofen 10 mg tablet 10 mg PO BID 06/28/23 12/09/23 ferrous sulfate 325 mg (65 mg 325 mg PO DAILY 06/28/23 12/09/23 iron) tablet (Feosol) Previous Rx's ?Medication ?Instructions ?Recorded dicyclomine 20 mg tablet 20 mg PO TID PRN abdominal pain #7 06/28/23 tabs ondansetron 4 mg disintegrating 4 mg PO Q4H PRN nausea and 06/28/23 tablet vomiting 3 days #6 tabs ondansetron 4 mg disintegrating 4 mg PO Q8H PRN nausea and 12/02/23 tablet vomiting 4 days #16 tabs tramadol 50 mg tablet 50 mg PO Q8H PRN pain 5 days #20 12/05/23 tabs tramadol 50 mg tablet 50 mg PO Q8H PRN pain #10 tabs 12/09/23 Allergies Allergy/AdvReac Type Severity Reaction Status Date / Time No Known Drug Allergies Allergy Verified 12/02/23 06:46 Opioid HPI Opioid Management Most Recent Opioid Data: Last Pain Scale 5 11/26/23 07:05 Review of Systems ROS Narrative A ten point review of systems is negative except as noted above. PFSH PFSH Social History Smoking status: Former smoker Exam Narrative Exam Narrative: Nurses note and vital signs reviewed and patient is not hypoxic. General: The patient appears well and in no apparent distress. Patient is resting comfortably on cart. Skin: Warm, dry, no pallor noted. There is no rash noted. Head: Normocephalic, atraumatic Eye: Normal conjunctiva, no drainage Ears, Nose, Mouth, and Throat: oral mucosa is moist. Nares patent. Cardiovascular: Regular Rate and Rhythm Respiratory: Patient is in no distress, no accessory muscle use, lungs are clear to auscultation, no wheezing, rales or rhonchi Back: non-tender GI: Minimal lower abdominal tenderness Musculoskeletal: The patient has no evidence of calf tenderness, no pitting edema, symmetrical pulses noted bilaterally Neurological: A&O, normal speech Psychiatric: Cooperative Constitutional Vital Signs, click to edit/add: Last Vital Signs Temp 98.7 F 12/09/23 07:25 Pulse 84 12/09/23 07:25 Resp 18 12/09/23 07:25 BP 125/66 12/09/23 07:25 Pulse Ox 100 12/09/23 07:25 O2 Del Method Room Air 12/09/23 07:25 Course Vital Signs Vital signs: Vital Signs Temperature 98.7 F 12/09/23 07:25 Pulse Rate 84 12/09/23 07:25 Respiratory Rate 18 12/09/23 07:25 Blood Pressure 125/66 12/09/23 07:25 Pulse Oximetry 100 12/09/23 07:25 Oxygen Delivery Method Room Air 12/09/23 07:25 Temperature 98.7 F 12/09/23 07:25 Pulse Rate 84 12/09/23 07:25 Respiratory Rate 18 12/09/23 07:25 Blood Pressure 125/66 12/09/23 07:25 Pulse Oximetry 100 12/09/23 07:25 Oxygen Delivery Method Room Air 12/09/23 07:25 Medical Decision Making MDM Narrative Medical decision making narrative: The patient has chronic pain. She was given a prescription for 10 Ultram tablets but instructed that future prescriptions would need to come from her treating physicians such as her surgeon or her PCP. She is already been referred to pain management. I informed her that I would no longer give her any narcotic prescriptions after today. Treatment diagnosis and follow-up were discussed with the patient. Differential Diagnosis Differential Diagnosis: Chronic pain Discharge Plan Discharge Stand Alone Forms: Portal Instructions Chief Complaint: Recheck/Abnormal Lab/Rx Clinical Impression: Chronic abdominal pain Patient Disposition: Home, Self-Care Time of Disposition Decision: 07:36 Condition: Good Mode of Transportation: Private Vehicle Prescriptions / Home Meds: New tramadol 50 mg tablet 50 mg PO Q8H PRN (Reason: pain) Qty: 10 0RF No Action baclofen 10 mg tablet 10 mg PO BID ferrous sulfate [Feosol] 325 mg (65 mg iron) tablet 325 mg PO DAILY dicyclomine 20 mg tablet 20 mg PO TID PRN (Reason: abdominal pain) Qty: 7 0RF ondansetron 4 mg tablet,disintegrating 4 mg PO Q4H PRN (Reason: nausea and vomiting) 3 Days Qty: 6 0RF ondansetron 4 mg tablet,disintegrating 4 mg PO Q8H PRN (Reason: nausea and vomiting) 4 Days Qty: 16 0RF tramadol 50 mg tablet 50 mg PO Q8H PRN (Reason: pain) 5 Days Qty: 20 0RF Print Language: Belarusian Instructions: Chronic Abdominal Pain (DC) Additional Instructions: Obtain your pain medications from your treating surgeon or your family doctor or your pain management physician. Referrals: Physician,Non-Staff, MD [Primary Care Provider] - 1 week
== END 2023-12-09 07:46 | disposition home or self-care (01) ==
PROVIDERS: Emergency Provider Emergency Medicine; Family Provider Family Medicine
DX: R10.9 Unspecified abdominal pain (principal); G89.29 Other chronic pain; Z87.891 Personal history of nicotine dependence
CPT/HCPCS: 99283

== ENCOUNTER 2024-03-24 09:40 | Emergency (ER) | payer OTHER, SELFPAY ==
[2024-03-24 09:55] VITALS: BP 139/86; PULSE 97; TEMP 37; O2SAT 100; BMI 25.3
--- NOTE | 2024-03-24 10:17 | ED.ABDPAIN1 ---
HPI - Abdominal Pain General Chief Complaint: Abdominal Pain Stated Complaint: L SIDE ABDOMINAL PAIN Time Seen by Provider: 03/24/24 09:49 Source: patient Mode of arrival: walk-in History of Present Illness HPI narrative: 28-year-old female presents for abdominal pain. She is complaining pain in the left lower abdomen. She has had ongoing issues in the past and has been diagnosed with pelvic congestion syndrome. Last month she had an embolization and she saw her doctor today for pain who told her to come here to the emergency department. The patient states she has been taking Ultram. The patient was at another hospital's emergency department a few days ago and had a CAT scan according to the patient and she was given a prescription for Percocet. Initially she did not tell me that she had a prescription for Percocet yesterday as well. In reviewing her prescription history she had a prescription for 4 Percocet tablets on March 20, 12 Percocet on March 21, and 4 Percocet on March 23. These were by 3 different emergency department physicians. Related Data Home Medications ?Medication ?Instructions ?Recorded ?Confirmed baclofen 10 mg tablet 10 mg PO BID 06/28/23 12/09/23 ferrous sulfate 325 mg (65 mg 325 mg PO DAILY 06/28/23 12/09/23 iron) tablet (Feosol) Previous Rx's ?Medication ?Instructions ?Recorded dicyclomine 20 mg tablet 20 mg PO TID PRN abdominal pain #7 06/28/23 tabs ondansetron 4 mg disintegrating 4 mg PO Q4H PRN nausea and 06/28/23 tablet vomiting 3 days #6 tabs ondansetron 4 mg disintegrating 4 mg PO Q8H PRN nausea and 12/02/23 tablet vomiting 4 days #16 tabs tramadol 50 mg tablet 50 mg PO Q8H PRN pain 5 days #20 12/05/23 tabs tramadol 50 mg tablet 50 mg PO Q8H PRN pain #10 tabs 12/09/23 Allergies Allergy/AdvReac Type Severity Reaction Status Date / Time No Known Drug Allergies Allergy Verified 12/02/23 06:46 Review of Systems ROS Narrative A ten point review of systems is negative except as noted above. PFSH PFSH Social History Smoking status: Former smoker Little interest or pleasure in doing things: not at all Feeling down, depressed, or hopeless: not at all Exam Narrative Exam Narrative: Nurses note and vital signs reviewed and patient is not hypoxic. General: The patient appears well and in no apparent distress. Patient is resting comfortably on cart. Skin: Warm, dry, no pallor noted. There is no rash noted. Head: Normocephalic, atraumatic Eye: Normal conjunctiva, no drainage Ears, Nose, Mouth, and Throat: oral mucosa is moist. Nares patent. Cardiovascular: Regular Rate and Rhythm Respiratory: Patient is in no distress, no accessory muscle use, lungs are clear to auscultation, no wheezing, rales or rhonchi Back: non-tender GI: Soft and nondistended. Mild tenderness in the left lower quadrant Musculoskeletal: The patient has no evidence of calf tenderness, no pitting edema, symmetrical pulses noted bilaterally Neurological: A&O, normal speech Psychiatric: Cooperative Constitutional Vital Signs, click to edit/add: Last Vital Signs Temp 98.6 F 03/24/24 09:55 Pulse 97 H 03/24/24 09:55 Resp 18 03/24/24 09:55 BP 139/86 03/24/24 09:55 Pulse Ox 100 03/24/24 09:55 O2 Del Method Room Air 03/24/24 09:55 Course Vital Signs Vital signs: Vital Signs Temperature 98.6 F 03/24/24 09:55 Pulse Rate 97 H 03/24/24 09:55 Respiratory Rate 18 03/24/24 09:55 Blood Pressure 139/86 03/24/24 09:55 Pulse Oximetry 100 03/24/24 09:55 Oxygen Delivery Method Room Air 03/24/24 09:55 Temperature 98.6 F 03/24/24 09:55 Pulse Rate 97 H 03/24/24 09:55 Respiratory Rate 18 03/24/24 09:55 Blood Pressure 139/86 03/24/24 09:55 Pulse Oximetry 100 03/24/24 09:55 Oxygen Delivery Method Room Air 03/24/24 09:55 MDM - Abdominal Pain MDM Narrative Medical decision making narrative: The intention was to run test. She however walked out without signing any paperwork. We had a discussion regarding her prescription history and she was not forthcoming. She has had prescriptions for 24 Percocet tablets in the last few days. I believe that she has drug-seeking behavior. I have reviewed her records from [facility] and she had a negative CAT scan on 03/20. She is fully able to make medical decisions for herself. Differential Diagnosis Differential diagnosis: Likely abdominal pain, constipation, diverticulitis, gastroenteritis, pancreatitis and small bowel obstruction Discharge Plan Discharge Stand Alone Forms: Portal Instructions Chief Complaint: Abdominal Pain Clinical Impression: Chronic abdominal pain Patient Disposition: Left Against Medical Advice Time of Disposition Decision: 10:35 Condition: Good Mode of Transportation: Private Vehicle Prescriptions / Home Meds: No Action baclofen 10 mg tablet 10 mg PO BID ferrous sulfate [Feosol] 325 mg (65 mg iron) tablet 325 mg PO DAILY dicyclomine 20 mg tablet 20 mg PO TID PRN (Reason: abdominal pain) Qty: 7 0RF ondansetron 4 mg tablet,disintegrating 4 mg PO Q4H PRN (Reason: nausea and vomiting) 3 Days Qty: 6 0RF tramadol 50 mg tablet 50 mg PO Q8H PRN (Reason: pain) Qty: 10 0RF ondansetron 4 mg tablet,disintegrating 4 mg PO Q8H PRN (Reason: nausea and vomiting) 4 Days Qty: 16 0RF tramadol 50 mg tablet 50 mg PO Q8H PRN (Reason: pain) 5 Days Qty: 20 0RF Print Language: Mongolian Instructions: Chronic Pain (ED), Chronic Abdominal Pain (DC) Referrals: Physician,Non-Staff, MD [Primary Care Provider] - 1 week
--- NOTE | 2024-03-24 10:37 | PC.NURSE ---
1018-Patient leaves ER at this time. Dr. Ellen crawford.
== END 2024-03-24 10:18 | disposition left against medical advice (07) ==
PROVIDERS: Emergency Provider Emergency Medicine; Family Provider Family Medicine
DX: R10.32 Left lower quadrant pain (principal); Z53.29 Procedure and treatment not carried out because of patient's decision for other reasons; Z87.891 Personal history of nicotine dependence; G89.29 Other chronic pain; Z76.5 Malingerer [conscious simulation]
CPT/HCPCS: 80048; 81001; 84703; 99281